=== PATIENT | female | born 1950 | race Caucasian/White ===

== ENCOUNTER 2020-01-05 22:54 | Inpatient (IN) | payer MEDICARE, OTHER, SELFPAY ==
[2020-01-05 22:55] VITALS: BP 168/82; PULSE 100; RESP 18; TEMP 36.7; O2SAT 96; BMI 43.0
[2020-01-05 23:41] LABS: Absolute Lymphocyte Count 0.57 X10^3/uL (0.83-4.51); Absolute Neutrophil Count 12.5 X10^3/uL (2.0-7.7); Basophil# 0.03 X10^3/uL; Basophil% 0.2 % (0-1); Eosinophil# 0.05 X10^3/uL; Eosinophils% 0.4 % (0-5); Hematocrit 40.7 % (37-47); Hemoglobin 13.9 g/dL (12.0-15.0); Lymphocyte # 0.57 X10^3/ul (4.0); Lymphocyte % 4.2 % (19-41); Mean Corp Hgb Conc 34.2 g/dL (32-36); Mean Corpuscular Volume 87.9 fL (81-99); Mean Platelet Vol. 9.5 fl (6.2-12.0); Monocyte# 0.45 X10^3/uL; Monocyte% 3.3 % (0-10); NRBC Flagged by Analyzer 0 % (0-5); Neutrophil # 12.48 X10^3/uL (2.7-7.7); Neutrophil % 91.6 % (47-70); POSITIVE DIFFERENTIAL YES; Platelet Count 190 K/mm3 (150-450); RBC Distribution Width CV 12.3 % (11.6-14.6); RBC Distribution Width SD 39.8 fl (35.1-43.9); Red Blood Count 4.63 M/mm3 (4.2-5.4); White Blood Count 13.6 K/mm3 (4.4-11.0)
[2020-01-05 23:59] LABS: Anion Gap 7 (5-15); BUN 21 mg/dL (7-18); BUN/Creat Ratio 17.6 RATIO (10-20); Chloride 104 mmol/L (98-107); Creatinine, Serum 1.19 mg/dL (0.55-1.02); EST Glomerular Filtration Rate 48 mL/min (>60); Est Glom Filt Rate - Afr Amer 58 mL/min (>60); Estimated Creatinine Clearance 67.09 ml/min; Glucose 132 mg/dL (74-106); Potassium 3.3 mmol/L (3.5-5.1); Sodium Level 137 mmol/L (136-145)
[2020-01-06] VITALS (9 sets, daily range): BP systolic 109–165; BP diastolic 55–78; PULSE 63–98; RESP 16–18; TEMP 36.4–38.2; O2SAT 94–98; BMI 43.6
--- NOTE | 2020-01-06 | RAD_ITS ---
STUDY: X-RAY - RIGHT HAND REASON FOR EXAM: Female, 69 years old. bit by cat a couple days ago -- puncture wound to medial aspect of rt hand area of proximal 5th metacarpal -- reddness and swelling TECHNIQUE: 3 view(s) of the hand. COMPARISON: None. FINDINGS: Normal radiocarpal articulation. Normal distal radioulnar joint. Normal visualized carpal bones. Normal carpal articulations Normal carpometacarpal articulation of the thumb. Normal second through fifth carpometacarpal joints. Normal metacarpi. Normal metacarpophalangeal joint of the thumb. Normal interphalangeal joint of the thumb. Normal proximal and distal phalanges of the thumb. Normal metacarpophalangeal joints of the second through fifth fingers. Normal proximal and distal interphalangeal joints of the second through fifth fingers. Normal phalanges of the second through fifth fingers. There is diffuse soft tissue swelling. No radiopaque foreign bodies visualized. RAD/Hand Min 3 Views IMPRESSION: No evidence for acute fracture. Diffuse soft tissue swelling. Electronically Signed: Davon Rodriguez, at 0:48 EDT Tel , Service support ,
[2020-01-06 00:05] LABS: Lactic Acid 1.2 mmol/L (0.4-1.9)
[2020-01-06 00:08] LABS: Differential Indicated SCAN CRITERIA MET
[2020-01-06 00:22] LABS: Differential Comment SCANNED
--- NOTE | 2020-01-06 00:36 | HP.PCM_ITS ---
Problem List (1) Sepsis Status: Acute Qualifiers: Sepsis type: sepsis due to unspecified organism Sepsis acute organ dysfunction status: unspecified Qualified Code(s): A41.9 - Sepsis, unspecified organism (2) Cat bite of hand Status: Acute Qualifiers: Encounter type: initial encounter Laterality: right Qualified Code(s): S61.451A - Open bite of right hand, initial encounter; W55.01XA - Bitten by cat, initial encounter (3) Cellulitis Status: Acute Qualifiers: Site of cellulitis: extremity Site of cellulitis of extremity: upper extremity Laterality: right Qualified Code(s): L03.113 - Cellulitis of right upper limb (4) HTN (hypertension) Status: Chronic Qualifiers: Hypertension type: essential hypertension Qualified Code(s): I10 - Essential (primary) hypertension (5) Hypothyroidism Status: Chronic Qualifiers: Hypothyroidism type: unspecified Qualified Code(s): E03.9 - Hypothyroidism, unspecified (6) History of obstructive sleep apnea Status: Chronic (7) Morbid obesity Status: Chronic History of Present Illness Date of Admission: 01/06/20 Chief Complaint: Recent cat bite, increased R hand edema, pain, redness. The patient is a 69 y/o F w/ PMHx: Morbid Obesity, HTN, Hypothyroidism who presents to the [facility] ED on 01/06/20 with history of cat bite 2 days prior, noted to her cat with progressively worsening right hand pain, edema, erythema with increasing streaking up her right extremities with onset fever prompting eventual ED presentation. She notes she has had similar presentations prior but not as severe. Patient denies any significant drainage from the cat bite specifically. She notes she had been trying to scrap picker her cats and put in the kennel. Patient denies any associated anorexia, nausea, emesis. work-up in the ED included T 100.8, heart rate 100, BP 168/82, respiratory rate 18, 96% on room air, CBC with WBC 13.6, hemoglobin 13.9, platelet 190 with left shift, BMP with potassium 3.3, BUN/creatinine 21/1.19, glucose 132, lactic acid 1.2, blood culture x2 pending per ED physician, plain film of the right hand with no evidence foreign bodies. In the ED patient administered Unasyn therapy. Past Medical History Past Medical History (Chronic Problems): Chronic Problems HTN (hypertension) (Chronic) Hypothyroidism (Chronic) History of obstructive sleep apnea (Chronic) Morbid obesity (Chronic) Allergies No Known Allergies Allergy (Verified 01/05/20 22:54) Home Medications: Ambulatory Orders Medication Instructions Recorded Hydrochlorothiazide [Hctz] 25 mg PO DAILY 01/06/20 Levothyroxine Sodium [Synthroid] 137 mcg PO DAILY 01/06/20 Lisinopril [Zestril] 10 mg PO DAILY 01/06/20 Surgical History: - - Uvula resection, right lower extremity surgery status post trauma in her youth, right knee arthroscopic surgery. 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 Smoking Status: Never smoker Tobacco Use: Non-smoker Alcohol: None Drugs: None - *Family History Maternal History Items: Cancer - Father with history of colorectal cancer. Paternal History Items: Dementia, Hypertension Review of Systems Constitutional: Reports: Fever, Malaise, Weakness, Fatigue. Denies: Chills, Weight Change HEENT: Denies: Head Aches, Sinus Congestion, Sinus Drainage Cardiovascular: Denies: Chest Pain, Palpitations Respiratory: Denies: Cough, Shortness of breath at rest, Sputum production Gastrointestinal: Denies: Abdominal Pain, Nausea, Vomiting Genitourinary: Denies: Dysuria Musculoskeletal: Reports: Arm Pain, Joint Pain. Denies: Joint Tenderness Skin: Reports: Skin Changes, Wounds. Denies: Rash Neurological: Denies: Numbness, Tingling, Focal weakness Psychiatric: Denies: Anxiety, Depression, Homicidal Ideations, Suicidal Ideations Hematologic/ Lymphatic: Denies: Easy Bruising, Easy Bleeding VTE Information - Inpt Only VTE Present on Admission: No VTE Mechan Device Prophylaxis: SCD's VTE Pharm Prophylaxis ordered?: Yes Patient Problems: Active and Suspected Problems Sepsis (Acute) Cat bite of hand (Acute) Cellulitis (Acute) Subjective: Patient seated upright in the ED bed, cheerful, talkative, does note ongoing discomfort right upper extremity but not severe. Objective: Physical Examination: General: awake, alert, oriented x 3 and cooperative, seated upright in the ED bed in no apparent distress. Skin: normal color, turgor, no icterus, cyanosis except noted right hand recent cat bite, no drainage, significant edema to the hand progressing all the way up towards the proximal forearm, significant erythema with streaking up the arm. HEENT: AT/NC, EOMI, PERRLA, mildly dry MM, no carotid bruits or JVD noted. Lungs: CTA bilaterally, moderate effort, moderate decrease BL bases, no rales, ronchi or wheezing. Heart: Mildly tachycardic with regular rhythm; no gallop, rub audible. Abdomen: soft, morbidly obese, NTTP, ND, normal BS, no HSM. Extremities: no cyanosis, clubbing, see skin. Neurological: patient awake, alert, oriented x 3; cognitive function intact; pupils equally reactive to light and accomodation; cranial nerves II-XII grossly normal, moving all 4 extremities although some limitation with right upper extremity given acute presentation, no focal deficits, strength moderately global decrease secondary to acute presentation. Psychiatric: affect appears normal, no acute evidence of depressive or anxiety feelings. - Physical Exam Vitals/I&O's: Vital Signs Temp Pulse Resp BP Pulse Ox 100.8 F H 97 18 165/78 H 97 01/06/20 00:15 01/06/20 00:15 01/06/20 00:15 01/06/20 00:15 01/06/20 00:15 Oxygen Delivery Method Room Air Weight: 213 lb Body Mass Index (BMI) 43.0 Laboratory Results 01/05/20 23:35: WBC 13.6 H, RBC 4.63, Hgb 13.9, Hct 40.7, MCV 87.9, MCH 30.0, MCHC 34.2, RDW Std Deviation 39.8, RDW Coeff of Gisela 12.3, Plt Count 190, MPV 9.5, Immature Gran % (Auto) 0.300, Neut % (Auto) 91.6 H, Lymph % (Auto) 4.2 L, [place] % (Auto) 3.3, Eos % (Auto) 0.4, Baso % (Auto) 0.2, Absolute Neuts (auto) 12.5 H, Absolute Lymphs (auto) 0.57 L, Nucleated RBC % 0, Differential Comment SCANNED 01/05/20 23:35: Sodium 137, Potassium 3.3 L, Chloride 104, Carbon Dioxide 26.0, Anion Gap 7, BUN 21 H, Creatinine 1.19 H, Estim Creat Clear Calc 67.09, Est GFR (MDRD) Af Amer 58 L, Est GFR (MDRD) Non-Af 48 L, BUN/Creatinine Ratio 17.6, Glucose 132 H, Calcium 9.0 01/05/20 23:35: Lactic Acid 1.2 Current Medications Ampicillin Sodium/Sulbactam (Sodium 3 gm/ Sodium Chloride) 112 mls @ 150 mls/hr IV X1 ONE Stop: 01/06/20 00:55 Assessment/Plan All Active Problems Sepsis (Acute) Cat bite of hand (Acute) Cellulitis (Acute) The patient is a 69 y/o F w/ PMHx: Morbid Obesity, HTN, Hypothyroidism who presents to the [facility] ED on 01/06/20 with history of cat bite 2 days prior, noted to her cat with progressively worsening right hand pain, edema, erythema with increasing streaking up her right extremities with onset fever prompting eventual ED presentation. 1. Acute Sepsis secondary to Acute Right Hand/Extremity Infected Cat Bite with Cellulitis: Will admit to [facility], maintain on IV unasyn, plan repeat CBC in AM, continue affected extremity elevation above heart when seated and in bed, monitor erythema outline with VS checks, continue IV fluids. 2. Hypertension: Continue home regimen including lisinopril, hydrochlorothiazide, PRN hydralazine. 3. Hypothyroidism: Continue home synthroid regimen. 4. Morbid Obesity: Weight loss and lifestyle changes encouraged. 5. Prior history of SANDRA: Status post uvula resection, resolved. 6. DVT prophylaxis: SCDs, Lovenox. Inpatient E&M: [id number] Init Hosp L3
--- NOTE | 2020-01-06 00:44 | ED.VISSUMM ---
- ER Visit Summary Date of Service: 01/06/20 Chief Complaint: Cat bite, right hand History of Present Illness: The patient is a 69 F who sustained a cat bite to the right hand. It happened 2 days ago. She was try to get her kitten to the vet. She knows this cat. No signs of rabies. She now has red streaks going up the right arm. She has felt chills and shaky at home but no documented fevers. Physical Examination: Vital signs are reviewed. Right arm exam reveals diffuse erythema with streaking going up the right arm. To the right axilla. She does have some bites on the right side of the hand on the ulnar side. No evidence of any finger bites. Her strength and sensation is normal. Test Results: White blood cell count 13.6, creatinine 1.19. Lactate 1.2. Right hand x-ray reveals no evidence of foreign bodies. Emergency Department Course and Treatment: The patient will be given a dose of IV Unasyn. She does meet sepsis criteria. Due to the amount of erythema I feel she needs to be admitted to the hospital. Treatment Plan: [] Disposition: Admit Impression: Cat bite, right hand Right arm cellulitis Sepsis This note was generated with [employer] dictation software. It may contain incorrect words, spelling, and punctuation that were not noted in review of the chart prior to signing ED Disposition - Plan for ED Patient: Referrals: Mateo Avalos MD [Primary Care Provider] -
[2020-01-06] MEDS: Ondansetron 4 MG/2 ML Vial IV (01:04)
[2020-01-06 01:45] LABS: Magnesium 1.7 mg/dL (1.6-2.6)
[2020-01-06] MEDS: Morphine 2 MG/ML Syringe IV ×2 (02:07→06:06)
[2020-01-06] MEDS: 0.9% Normal Saline 1,000 ML 125 ML IV ×2 (02:07→11:27)
[2020-01-06 05:43] LABS: Absolute Lymphocyte Count 0.59 X10^3/uL (0.83-4.51); Absolute Neutrophil Count 16.2 X10^3/uL (2.0-7.7); Basophil# 0.03 X10^3/uL; Basophil% 0.2 % (0-1); Eosinophils% 0.5 % (0-5); Hematocrit 39.2 % (37-47); Hemoglobin 13.4 g/dL (12.0-15.0); Lymphocyte # 0.59 X10^3/ul (4.0); Lymphocyte % 3.2 % (19-41); Mean Corp Hgb Conc 34.2 g/dL (32-36); Mean Corpuscular Hgb 30.7 pg (27.0-32.0); Mean Corpuscular Volume 89.7 fL (81-99); Monocyte# 1.18 X10^3/uL; Monocyte% 6.4 % (0-10); NRBC Flagged by Analyzer 0 % (0-5); Neutrophil # 16.24 X10^3/uL (2.7-7.7); Neutrophil % 88.7 % (47-70); POSITIVE DIFFERENTIAL YES; POSITIVE MORPHOLOGY YES; Platelet Count 193 K/mm3 (150-450); RBC Distribution Width CV 12.2 % (11.6-14.6); Red Blood Count 4.37 M/mm3 (4.2-5.4); White Blood Count 18.3 K/mm3 (4.4-11.0)
[2020-01-06 05:47] LABS: Differential Indicated SCAN CRITERIA MET
[2020-01-06 06:06] LABS: Anion Gap 9 (5-15); BUN 19 mg/dL (7-18); BUN/Creat Ratio 17.9 RATIO (10-20); Calcium,Total 8.3 mg/dL (8.5-10.1); Chloride 103 mmol/L (98-107); Creatinine, Serum 1.06 mg/dL (0.55-1.02); EST Glomerular Filtration Rate 54 mL/min (>60); Est Glom Filt Rate - Afr Amer 66 mL/min (>60); Estimated Creatinine Clearance 76.32 ml/min; Glucose 137 mg/dL (74-106); Potassium 3.2 mmol/L (3.5-5.1); Sodium Level 137 mmol/L (136-145)
[2020-01-06] MEDS: Levothyroxine 137 MCG Tablet PO (06:07)
[2020-01-06 06:09] LABS: Differential Comment SCANNED
[2020-01-06] MEDS: Famotidine 20 MG Tablet PO ×2 (08:30→22:13)
[2020-01-06] MEDS: Enoxaparin 40 MG/0.4 ML Syringe SC (08:30)
[2020-01-06] MEDS: Lisinopril 10 MG Tablet PO (08:30)
[2020-01-06] MEDS: hydroCHLOROthiazide 25 MG Tablet PO (08:30)
--- NOTE | 2020-01-06 10:40 | CASEMGMT ---
RN KIRILL RESEARCH AND DEVELOPMENT DIRECTOR CM to room to meet with patient for initial transition planning/care coordination assessment. RN KIRILL introduced self and role at [facility]. Pt voices understanding and consents to assessment at this time. Pt resting in bed in no distress at this time. Pt is A/O at this time and answers all questions appropriately. Care providers, pharmacy, and demographics verified/updated at this time. PCP: Dr Avalos Specialists: none Preferred Pharmacy: [facility] Insurance: [facility] Prescription Benefit: [employer] Living Will/HPOA: States does not have LW or HCPOA . Interested in more information but states does not want to talk with SW at this time to complete paperwork. Provided information on advanced directives and given Social Service rac card with number to call if chooses in the future to utilize [facility] social work for advanced directive completion. LNOK: Mother, Kalpana, is still living, but pt states she is starting to have short-term memory issues. Pt has 3 brothers. Living Arrangements: Lives with her mother in one-story home w/3 steps to enter. Independent w/ADL's and IADL's. Pt states mother has short-term memory issues and pt helps to take care of her. States her mother is still able to help around the house and does the laundry. Family is supportive and brother and [id number] live very close and are checking in on her mother while pt is @ hospital. Transportation: Pt states drives self and states no transportation concerns at this time. Charmaine, pt's [id number], will take her home @ discharge. DME: States has the following DME: cane Pt states no need for further DME at this time. HHC/SNF: No history of either, denies needs, and no needs identified. Also discussed option of OP therapy, but pt declines, stating she does not feel that she needs it at this time. Pt made aware, if she decides in the future she would be interested, to discuss this with her PCP. Pt voiced understanding. Pt asked this RN KIRILL if she could put Horse Liniment on the swelling of her hand/arm when she returns home. RN KIRILL strongly advised pt she should not apply this and to follow physician's discharge instructions. Pt voices understanding. Pt's RN, Ana Paula, made aware and states will continue to provide education and reinforce that she should not apply the Horse liniment. Pt wishes to return home and states has no concerns with going home at time of discharge. CM to follow for any discharge planning/needs. Pt voices no concerns/needs at this time. Advised pt to ask for CM if any further questions/concerns/needs arise. Voices understanding. PLAN: Home Janey LYLES RN CM
--- NOTE | 2020-01-06 10:57 | NURSING ---
Verbal report called to ABIDA Randle on [facility] who will be assuming care of patient
[2020-01-06 11:02] LABS: M R Staph aureus DNA By PCR Negative (Negative); Probe Check PASS; Specimen Processing Control PASS; Staph aureus DNA By PCR NEGATIVE (Negative)
--- NOTE | 2020-01-06 12:20 | NURSING ---
skin photo: right arm
--- NOTE | 2020-01-06 12:21 | NURSING ---
skin photo: right hand/wrist
--- NOTE | 2020-01-06 13:12 | PN_ITS ---
<Peggy Billingsley - Last Filed: 01/06/20 13:18> Patient Problems: Active and Suspected Problems Sepsis (Acute) Cat bite of hand (Acute) Cellulitis (Acute) Subjective: Patient seen and examined. Reports mild discomfort right upper extremity. Right upper extremity continues to have significant swelling. Redness has not increased. Patient denies fever, chills. Denies nausea, vomiting. - Physical Exam Vitals/I&O's: Vital Signs Temp Pulse Resp BP Pulse Ox 99.0 F 75 18 140/55 H 98 01/06/20 11:25 01/06/20 11:25 01/06/20 11:25 01/06/20 11:25 01/06/20 11:25 Oxygen Delivery Method Room Air Weight: 215 lb 13.321 oz Body Mass Index (BMI) 43.6 Intake and Output for Last 24 Hours 01/04/20 01/05/20 01/06/20 23:59 23:59 23:59 Intake Total 1346.42 / 1346.42 Balance 1346.42 / 1346.42 General: Alert, Oriented x3, Cooperative HEENT: Atraumatic, PERRLA, EOMI, Normocephalic Neck: Supple, No JVD, Negative Carotid Bruits Lungs: Clear to auscultation, Normal air movement Cardiovascular: Regular rate, Regular Rhythm, Normal S1, Normal S2, No murmurs Abdomen: Bowel Sounds Present, Soft, Non Tender, Non-Distended Extremities: No clubbing, No cyanosis, Capillary Refill Less than 3 Seconds, Edema - RUE Skin: - - Right hand and wrist puncture wounds from cat bites, significant erythema with streaking up right arm into axillary region. Musculoskeletal: No Tenderness to Palpation of Joints or Extremities Neurological: Cranial nerves II-XII grossly intact, Neuro grossly intact Psych/Mental Status: Normal Affect, Appropriate Laboratory Results 01/05/20 23:35: WBC 13.6 H, RBC 4.63, Hgb 13.9, Hct 40.7, MCV 87.9, MCH 30.0, MCHC 34.2, RDW Std Deviation 39.8, RDW Coeff of Gisela 12.3, Plt Count 190, MPV 9.5, Immature Gran % (Auto) 0.300, Neut % (Auto) 91.6 H, Lymph % (Auto) 4.2 L, Roosevelt % (Auto) 3.3, Eos % (Auto) 0.4, Baso % (Auto) 0.2, Absolute Neuts (auto) 12.5 H, Absolute Lymphs (auto) 0.57 L, Nucleated RBC % 0, Differential Comment SCANNED 01/05/20 23:35: Sodium 137, Potassium 3.3 L, Chloride 104, Carbon Dioxide 26.0, Anion Gap 7, BUN 21 H, Creatinine 1.19 H, Estim Creat Clear Calc 67.09, Est GFR (MDRD) Af Amer 58 L, Est GFR (MDRD) Non-Af 48 L, BUN/Creatinine Ratio 17.6, Glucose 132 H, Calcium 9.0 01/05/20 23:35: Lactic Acid 1.2 01/05/20 23:35: Magnesium 1.7 01/06/20 01:40: S.aureus Protein A PCR NEGATIVE, MRSA (PCR) Negative 01/06/20 05:14: WBC 18.3 H, RBC 4.37, Hgb 13.4, Hct 39.2, MCV 89.7, MCH 30.7, MCHC 34.2, RDW Std Deviation 40.0, RDW Coeff of Gisela 12.2, Plt Count 193, MPV 10.0, Immature Gran % (Auto) 1.000 H, Neut % (Auto) 88.7 H, Lymph % (Auto) 3.2 L , Roosevelt % (Auto) 6.4, Eos % (Auto) 0.5, Baso % (Auto) 0.2, Absolute Neuts (auto) 16.2 H, Absolute Lymphs (auto) 0.59 L, Nucleated RBC % 0, Differential Comment SCANNED 01/06/20 05:14: Sodium 137, Potassium 3.2 L, Chloride 103, Carbon Dioxide 25.0, Anion Gap 9, BUN 19 H, Creatinine 1.06 H, Estim Creat Clear Calc 76.32, Est GFR (MDRD) Af Amer 66, Est GFR (MDRD) Non-Af 54 L, BUN/Creatinine Ratio 17.9, Glucose 137 H, Calcium 8.3 L 01/06/20 05:14: Hemoglobin A1c 6.0 Current Medications Acetaminophen (Tylenol) 650 mg PO Q6H PRN PRN PRN Reason: Pain Score 1-10/Temp > 100.7 F Al Hydroxide/Mg Hydroxide (Mylanta Ii) 30 ml PO Q6H PRN PRN PRN Reason: Gastric Burning Albuterol Sulfate (Ventolin Aerosols) 2.5 mg INHALATION Q2H PRN PRN PRN Reason: Shortness of Breath/Wheezing Enoxaparin Sodium (Lovenox) 40 mg SC DAILY [facility] Last Admin: 01/06/20 08:30 Dose: 40 mg Documented by: Famotidine (Pepcid) 20 mg PO BID [facility] Last Admin: 01/06/20 08:30 Dose: 20 mg Documented by: Glucagon () 1 mg IM .X1 PRN PRN Reason: Hypoglycemia Guaifenesin (Robitussin) 20 ml PO Q4H PRN PRN PRN Reason: COUGH Hydralazine HCl (Apresoline Iv) 10 mg IV Q4H PRN PRN PRN Reason: SBP > 160 Hydrochlorothiazide (Hctz) 25 mg PO DAILY [facility] Last Admin: 01/06/20 08:30 Dose: 25 mg Documented by: Sodium Chloride () 1,000 mls @ 125 mls/hr IV .Q8H [facility] Stop: 01/06/20 17:25 Last Infusion: 01/06/20 12:15 Dose: 125 mls/hr Documented by: Ampicillin Sodium/Sulbactam (Sodium 3 gm/ Sodium Chloride) 112 mls @ 150 mls/hr IV Q6 [facility] Last Infusion: 01/06/20 12:15 Dose: Infused Documented by: Dextrose (Dextrose 10%-Water) 250 mls @ 999 mls/hr IV .Q16M PRN; Protocol PRN Reason: HYPOGLYCEMIA Ibuprofen (Motrin) 400 mg PO Q4H PRN PRN PRN Reason: Pain Score 1-10/Temp > 100.7 F Levothyroxine Sodium (Synthroid) 137 mcg PO DAILY@0600 [facility] Last Admin: 01/06/20 06:07 Dose: 137 mcg Documented by: Lisinopril (Zestril) 10 mg PO DAILY [facility] Last Admin: 01/06/20 08:30 Dose: 10 mg Documented by: Magnesium Hydroxide (Milk Of Magnesia) 30 ml PO DAILY PRN PRN PRN Reason: Constipation Melatonin (Melatonin) 3 mg PO QHS PRN PRN PRN Reason: INSOMNIA Morphine Sulfate () 2 mg IV Q3H PRN PRN PRN Reason: Pain Score 6-10/10 Last Admin: 01/06/20 06:06 Dose: 2 mg Documented by: Nitroglycerin (Nitrostat) 0.4 mg SUBLINGUAL Q5M PRN PRN Reason: CARDIAC/CHEST PAIN Nutritional Formula (Lactose Free) (Ensure Enlive) 120 ml PO 4X/DAY GUILLAUME Last Admin: 01/06/20 08:30 Dose: 120 ml Documented by: Ondansetron HCl (Zofran) 4 mg IV Q8H PRN PRN PRN Reason: NAUSEA/VOMITING Oxycodone HCl (Oxyir) 5 mg PO Q4H PRN PRN PRN Reason: Pain Score 4-5/10 Prochlorperazine Edisylate (Compazine Iv) 5 mg IV Q4H PRN PRN PRN Reason: Breakthrough nausea/vomiting Psyllium Hydrophilic Mucilloid (Metamucil) 1 packet PO DAILY PRN PRN PRN Reason: Constipation Senna/Docusate Sodium (Senokot-S, Carol-Colace) 2 tablet PO BID PRN PRN PRN Reason: Constipation Sodium Chloride () 10 - 40 ml IV UD PRN PRN Reason: SALINE FLUSH Throat Lozenges (Cepacol Sore Throat Lozenge) 1 lozenge MUCOUS MEM Q2H PRN PRN PRN Reason: SORE THROAT Medical Necessity - Tobacco Use Smoking Status: Never smoker Tobacco Use: Non-smoker Assessment/Plan All Active Problems Sepsis (Acute) Cat bite of hand (Acute) Cellulitis (Acute) 1. Acute sepsis secondary to right upper extremity cellulitis as a result of cat bite-on IV Unasyn. Elevate right upper extremity. Blood and wound cultures pending. PRN pain regimen. 2. Hypertension-continue lisinopril, HCTZ. 3. Hypothyroidism-continue Synthroid regimen. 4. Morbid obesity-encouraged diet lifestyle modifications. 5. History of SANDRA-status post uvula resection. 6. Mild renal insufficiency-unclear if acute on chronic, no prior labs for comparison. Improving with IV fluids. Trend BMP. 7. Mild hypokalemia-replace per protocol. DVT prophylaxis-Lovenox This patient was seen by VLAD Hung under the supervision of Dr. Leung. <Mellisa Leung - Last Filed: 01/06/20 17:34> - Physical Exam Vitals/I&O's: Vital Signs Temp Pulse Resp BP Pulse Ox 99.0 F 98 18 109/63 97 01/06/20 13:57 01/06/20 13:57 01/06/20 13:57 01/06/20 13:57 01/06/20 13:57 Oxygen Delivery Method Room Air Weight: 215 lb 13.321 oz Body Mass Index (BMI) 43.6 Intake and Output for Last 24 Hours 01/04/20 01/05/20 01/06/20 23:59 23:59 23:59 Intake Total 1346.42 / 1346.42 Balance 1346.42 / 1346.42 Microbiology Past 72 Hours 01/06/20 01:40 Bite, Cat Gram Stain - Final Laboratory Results 01/05/20 23:35: WBC 13.6 H, RBC 4.63, Hgb 13.9, Hct 40.7, MCV 87.9, MCH 30.0, MCHC 34.2, RDW Std Deviation 39.8, RDW Coeff of Gisela 12.3, Plt Count 190, MPV 9.5, Immature Gran % (Auto) 0.300, Neut % (Auto) 91.6 H, Lymph % (Auto) 4.2 L, Roosevelt % (Auto) 3.3, Eos % (Auto) 0.4, Baso % (Auto) 0.2, Absolute Neuts (auto) 12.5 H, Absolute Lymphs (auto) 0.57 L, Nucleated RBC % 0, Differential Comment SCANNED 01/05/20 23:35: Sodium 137, Potassium 3.3 L, Chloride 104, Carbon Dioxide 26.0, Anion Gap 7, BUN 21 H, Creatinine 1.19 H, Estim Creat Clear Calc 67.09, Est GFR (MDRD) Af Amer 58 L, Est GFR (MDRD) Non-Af 48 L, BUN/Creatinine Ratio 17.6, Glucose 132 H, Calcium 9.0 01/05/20 23:35: Lactic Acid 1.2 01/05/20 23:35: Magnesium 1.7 01/06/20 01:40: S.aureus Protein A PCR NEGATIVE, MRSA (PCR) Negative 01/06/20 05:14: WBC 18.3 H, RBC 4.37, Hgb 13.4, Hct 39.2, MCV 89.7, MCH 30.7, MCHC 34.2, RDW Std Deviation 40.0, RDW Coeff of Gisela 12.2, Plt Count 193, MPV 10.0, Immature Gran % (Auto) 1.000 H, Neut % (Auto) 88.7 H, Lymph % (Auto) 3.2 L , Roosevelt % (Auto) 6.4, Eos % (Auto) 0.5, Baso % (Auto) 0.2, Absolute Neuts (auto) 16.2 H, Absolute Lymphs (auto) 0.59 L, Nucleated RBC % 0, Differential Comment SCANNED 01/06/20 05:14: Sodium 137, Potassium 3.2 L, Chloride 103, Carbon Dioxide 25.0, Anion Gap 9, BUN 19 H, Creatinine 1.06 H, Estim Creat Clear Calc 76.32, Est GFR (MDRD) Af Amer 66, Est GFR (MDRD) Non-Af 54 L, BUN/Creatinine Ratio 17.9, Glucose 137 H, Calcium 8.3 L 01/06/20 05:14: Hemoglobin A1c 6.0 Current Medications Acetaminophen (Tylenol) 650 mg PO Q6H PRN PRN PRN Reason: Pain Score 1-10/Temp > 100.7 F Al Hydroxide/Mg Hydroxide (Mylanta Ii) 30 ml PO Q6H PRN PRN PRN Reason: Gastric Burning Albuterol Sulfate (Ventolin Aerosols) 2.5 mg INHALATION Q2H PRN PRN PRN Reason: Shortness of Breath/Wheezing Enoxaparin Sodium (Lovenox) 40 mg SC DAILY [facility] Last Admin: 01/06/20 08:30 Dose: 40 mg Documented by: Famotidine (Pepcid) 20 mg PO BID [facility] Last Admin: 01/06/20 08:30 Dose: 20 mg Documented by: Glucagon () 1 mg IM .X1 PRN PRN Reason: Hypoglycemia Guaifenesin (Robitussin) 20 ml PO Q4H PRN PRN PRN Reason: COUGH Hydralazine HCl (Apresoline Iv) 10 mg IV Q4H PRN PRN PRN Reason: SBP > 160 Hydrochlorothiazide (Hctz) 25 mg PO DAILY [facility] Last Admin: 01/06/20 08:30 Dose: 25 mg Documented by: Sodium Chloride () 1,000 mls @ 125 mls/hr IV .Q8H [facility] Stop: 01/06/20 17:25 Last Infusion: 01/06/20 12:15 Dose: 125 mls/hr Documented by: Ampicillin Sodium/Sulbactam (Sodium 3 gm/ Sodium Chloride) 112 mls @ 150 mls/hr IV Q6 [facility] Last Infusion: 01/06/20 12:15 Dose: Infused Documented by: Dextrose (Dextrose 10%-Water) 250 mls @ 999 mls/hr IV .Q16M PRN; Protocol PRN Reason: HYPOGLYCEMIA Ibuprofen (Motrin) 400 mg PO Q4H PRN PRN PRN Reason: Pain Score 1-10/Temp > 100.7 F Levothyroxine Sodium (Synthroid) 137 mcg PO DAILY@0600 [facility] Last Admin: 01/06/20 06:07 Dose: 137 mcg Documented by: Lisinopril (Zestril) 10 mg PO DAILY [facility] Last Admin: 01/06/20 08:30 Dose: 10 mg Documented by: Magnesium Hydroxide (Milk Of Magnesia) 30 ml PO DAILY PRN PRN PRN Reason: Constipation Melatonin (Melatonin) 3 mg PO QHS PRN PRN PRN Reason: INSOMNIA Morphine Sulfate () 2 mg IV Q3H PRN PRN PRN Reason: Pain Score 6-10/10 Last Admin: 01/06/20 06:06 Dose: 2 mg Documented by: Nitroglycerin (Nitrostat) 0.4 mg SUBLINGUAL Q5M PRN PRN Reason: CARDIAC/CHEST PAIN Ondansetron HCl (Zofran) 4 mg IV Q8H PRN PRN PRN Reason: NAUSEA/VOMITING Oxycodone HCl (Oxyir) 5 mg PO Q4H PRN PRN PRN Reason: Pain Score 4-5/10 Prochlorperazine Edisylate (Compazine Iv) 5 mg IV Q4H PRN PRN PRN Reason: Breakthrough nausea/vomiting Psyllium Hydrophilic Mucilloid (Metamucil) 1 packet PO DAILY PRN PRN PRN Reason: Constipation Senna/Docusate Sodium (Senokot-S, Carol-Colace) 2 tablet PO BID PRN PRN PRN Reason: Constipation Sodium Chloride () 10 - 40 ml IV UD PRN PRN Reason: SALINE FLUSH Throat Lozenges (Cepacol Sore Throat Lozenge) 1 lozenge MUCOUS MEM Q2H PRN PRN PRN Reason: SORE THROAT Assessment/Plan Patient seen by Peggy CHU under my supervision Patient was admitted with a complaint of right upper extremity pain and swelling after she was bitten by her cat. She has been managed for cellulitis of the right upper extremity. Seen and examined. She states swelling has improved and pain is also better. She denies any fever or chills, nausea vomiting or palpitations. Review of systems otherwise negative. o/e: Vital Signs Height 4 ft 11 in Weight: 215 lb 13.321 oz Weight in Pounds 215.8 lbs Pulse Ox 97 Temperature 99.0 F Pulse Rate 98 Respiratory Rate 18 Blood Pressure 109/63 Blood Pressure Position Semi-Fowlers General: Alert, Oriented x3, Cooperative HEENT: Atraumatic, PERRLA, EOMI, Normocephalic Neck: Supple, No JVD, Negative Carotid Bruits Lungs: Clear to auscultation, Normal air movement Cardiovascular: Regular rate, Regular Rhythm, Normal S1, Normal S2, No murmurs Abdomen: Bowel Sounds Present, Soft, Non Tender, Non-Distended Extremities: No clubbing, No cyanosis, Capillary Refill Less than 3 Seconds, Edema - RUE Skin: - - Right hand and wrist puncture wounds from cat bites, erythema streaking up from dorsum and lateral aspect of right hand to right axilla. Minimal swelling of right hand. No discharge noted Musculoskeletal: No Tenderness to Palpation of Joints or Extremities Neurological: Cranial nerves II-XII grossly intact, Neuro grossly intact Psych/Mental Status: Normal Affect, Appropriate Blood and wound cultures are pending. Continue IV Unasyn. Keep arm elevated. To have a low threshold for consulting plastic surgery if swelling in the hand recurs and worsens. White cell count noted 12 trended up to 18.3 from 13.6 on admission. Temperature has settled though and was 99 Fahrenheit at time of review. If WBC Trending Upwards, to Broaden IV Antibiotics. Continue Tylenol and Oxycodone for Pain. Patient also has hypokalemia with potassium of 3.2 and this will be replaced. Rest as per VLAD Hung's notes which I have reviewed and endorsed. Inpatient E&M: 36868 Subs Hosp L3
--- NOTE | 2020-01-06 16:11 | CHAPLAIN ---
left a calling card as patient is sleeping
[2020-01-06 19:08] LABS: M R Staph aureus DNA By PCR Negative (Negative); Probe Check PASS; Staph aureus DNA By PCR NEGATIVE (Negative)
[2020-01-06] MEDS: Ibuprofen 400 MG Tablet PO (22:23)
[2020-01-06] MEDS: 0.9% Saline Lock 10 ML Syringe IV (23:28)
[2020-01-07 03:49] VITALS: BP 107/58; PULSE 63; RESP 14; TEMP 36.7; O2SAT 94
[2020-01-07] MEDS: Levothyroxine 137 MCG Tablet PO (06:24)
[2020-01-07 09:53] LABS: Hematocrit 35.8 % (37-47); Hemoglobin 11.9 g/dL (12.0-15.0); Mean Corp Hgb Conc 33.2 g/dL (32-36); Mean Corpuscular Hgb 30.3 pg (27.0-32.0); Mean Corpuscular Volume 91.1 fL (81-99); Mean Platelet Vol. 9.6 fl (6.2-12.0); Platelet Count 148 K/mm3 (150-450); RBC Distribution Width CV 12.7 % (11.6-14.6); RBC Distribution Width SD 42.5 fl (35.1-43.9); Red Blood Count 3.93 M/mm3 (4.2-5.4); White Blood Count 15.1 K/mm3 (4.4-11.0)
[2020-01-07] MEDS: Lisinopril 10 MG Tablet PO (10:14)
[2020-01-07] MEDS: Enoxaparin 40 MG/0.4 ML Syringe SC (10:14)
[2020-01-07] MEDS: hydroCHLOROthiazide 25 MG Tablet PO (10:14)
[2020-01-07] MEDS: Famotidine 20 MG Tablet PO ×2 (10:14→20:44)
[2020-01-07 10:16] VITALS: BP 96/46; PULSE 82; RESP 18; TEMP 37.1; O2SAT 96
[2020-01-07 10:21] LABS: Anion Gap 4 (5-15); BUN 14 mg/dL (7-18); BUN/Creat Ratio 16.9 RATIO (10-20); Calcium,Total 8.5 mg/dL (8.5-10.1); Chloride 108 mmol/L (98-107); Creatinine, Serum 0.83 mg/dL (0.55-1.02); EST Glomerular Filtration Rate 72 mL/min (>60); Est Glom Filt Rate - Afr Amer 88 mL/min (>60); Estimated Creatinine Clearance 97.47 ml/min; Glucose 135 mg/dL (74-106); Potassium 3.8 mmol/L (3.5-5.1); Sodium Level 136 mmol/L (136-145)
--- NOTE | 2020-01-07 12:01 | NURSING ---
In to reassess the right hand and arm. the redness is very slightly improved. there is still a moderate amount of edema noted especially to the forearm and wrist area. there is some blistering now noted to the lateral wrist. Pt may possibly need and I&D if the redness and edema do not improve.
--- NOTE | 2020-01-07 13:48 | PN_ITS ---
<Peggy Billingsley - Last Filed: 01/07/20 14:01> Patient Problems: Active and Suspected Problems Sepsis (Acute) Cat bite of hand (Acute) Cellulitis (Acute) Subjective: Patient seen and examined. Worsening right upper extremity swelling. Patient reports 2 focal areas of increased pain on right forearm and right bicep area. Few areas of blistering. Patient denies fever, chills. - Physical Exam Vitals/I&O's: Vital Signs Temp Pulse Resp BP Pulse Ox 98.8 F 82 18 96/46 L 96 01/07/20 10:16 01/07/20 10:16 01/07/20 10:16 01/07/20 10:16 01/07/20 10:16 Oxygen Delivery Method Room Air Weight: 215 lb 13.321 oz Body Mass Index (BMI) 43.6 Intake and Output for Last 24 Hours 01/05/20 01/06/20 01/07/20 23:59 23:59 23:59 Intake Total 2848.00 / 3048.00 934 / 934 Output Total 150 / 450 1850 / 1850 Balance 2698.00 / 2598.00 -916 / -916 General: Alert, Oriented x3, Cooperative HEENT: Atraumatic, PERRLA, EOMI, Normocephalic Neck: Supple, No JVD, Negative Carotid Bruits Lungs: Clear to auscultation, Normal air movement Cardiovascular: Regular rate, Regular Rhythm, Normal S1, Normal S2, No murmurs Abdomen: Bowel Sounds Present, Soft, Non Tender, Non-Distended Extremities: Capillary Refill Less than 3 Seconds, Edema - Right upper extremity Skin: - - Right hand and wrist puncture wounds from cat bites, significant erythema with streaking up right arm into axillary region. Right wrist area with blistering. Worsening erythema and edema today. Musculoskeletal: No Tenderness to Palpation of Joints or Extremities Neurological: Cranial nerves II-XII grossly intact, Neuro grossly intact Psych/Mental Status: Normal Affect, Appropriate Microbiology Past 72 Hours 01/06/20 01:40 Bite, Cat Gram Stain - Final 01/06/20 01:40 Bite, Cat Wound Culture - Preliminary No growth-Final to follow Laboratory Results 01/06/20 17:27: S.aureus Protein A PCR NEGATIVE, MRSA (PCR) Negative 01/07/20 09:47: WBC 15.1 H, RBC 3.93 L, Hgb 11.9 L, Hct 35.8 L, MCV 91.1, MCH 30.3, MCHC 33.2, RDW Std Deviation 42.5, RDW Coeff of Gisela 12.7, Plt Count 148 L, MPV 9.6 01/07/20 09:47: Sodium 136, Potassium 3.8, Chloride 108 H, Carbon Dioxide 24.0, Anion Gap 4 L, BUN 14, Creatinine 0.83, Estim Creat Clear Calc 97.47, Est GFR (MDRD) Af Amer 88, Est GFR (MDRD) Non-Af 72, BUN/Creatinine Ratio 16.9, Glucose 135 H, Calcium 8.5 Current Medications Acetaminophen (Tylenol) 650 mg PO Q6H PRN PRN PRN Reason: Pain Score 1-10/Temp > 100.7 F Al Hydroxide/Mg Hydroxide (Mylanta Ii) 30 ml PO Q6H PRN PRN PRN Reason: Gastric Burning Albuterol Sulfate (Ventolin Aerosols) 2.5 mg INHALATION Q2H PRN PRN PRN Reason: Shortness of Breath/Wheezing Enoxaparin Sodium (Lovenox) 40 mg SC DAILY [facility] Last Admin: 01/07/20 10:14 Dose: 40 mg Documented by: Famotidine (Pepcid) 20 mg PO BID [facility] Last Admin: 01/07/20 10:14 Dose: 20 mg Documented by: Glucagon () 1 mg IM .X1 PRN PRN Reason: Hypoglycemia Guaifenesin (Robitussin) 20 ml PO Q4H PRN PRN PRN Reason: COUGH Hydralazine HCl (Apresoline Iv) 10 mg IV Q4H PRN PRN PRN Reason: SBP > 160 Hydrochlorothiazide (Hctz) 25 mg PO DAILY [facility] Last Admin: 01/07/20 10:14 Dose: 25 mg Documented by: Ampicillin Sodium/Sulbactam (Sodium 3 gm/ Sodium Chloride) 112 mls @ 150 mls/hr IV Q6 [facility] Last Admin: 01/07/20 11:55 Dose: 150 mls/hr Documented by: Dextrose (Dextrose 10%-Water) 250 mls @ 999 mls/hr IV .Q16M PRN; Protocol PRN Reason: HYPOGLYCEMIA Ibuprofen (Motrin) 400 mg PO Q4H PRN PRN PRN Reason: Pain Score 1-10/Temp > 100.7 F Last Admin: 01/06/20 22:23 Dose: 400 mg Documented by: Levothyroxine Sodium (Synthroid) 137 mcg PO DAILY@0600 [facility] Last Admin: 01/07/20 06:24 Dose: 137 mcg Documented by: Lisinopril (Zestril) 10 mg PO DAILY [facility] Last Admin: 01/07/20 10:14 Dose: 10 mg Documented by: Magnesium Hydroxide (Milk Of Magnesia) 30 ml PO DAILY PRN PRN PRN Reason: Constipation Melatonin (Melatonin) 3 mg PO QHS PRN PRN PRN Reason: INSOMNIA Morphine Sulfate () 2 mg IV Q3H PRN PRN PRN Reason: Pain Score 6-10/10 Last Admin: 01/06/20 06:06 Dose: 2 mg Documented by: Nitroglycerin (Nitrostat) 0.4 mg SUBLINGUAL Q5M PRN PRN Reason: CARDIAC/CHEST PAIN Ondansetron HCl (Zofran) 4 mg IV Q8H PRN PRN PRN Reason: NAUSEA/VOMITING Oxycodone HCl (Oxyir) 5 mg PO Q4H PRN PRN PRN Reason: Pain Score 4-5/10 Prochlorperazine Edisylate (Compazine Iv) 5 mg IV Q4H PRN PRN PRN Reason: Breakthrough nausea/vomiting Psyllium Hydrophilic Mucilloid (Metamucil) 1 packet PO DAILY PRN PRN PRN Reason: Constipation Senna/Docusate Sodium (Senokot-S, Carol-Colace) 2 tablet PO BID PRN PRN PRN Reason: Constipation Sodium Chloride () 10 - 40 ml IV UD PRN PRN Reason: SALINE FLUSH Last Admin: 01/06/20 23:28 Dose: 10 ml Documented by: Throat Lozenges (Cepacol Sore Throat Lozenge) 1 lozenge MUCOUS MEM Q2H PRN PRN PRN Reason: SORE THROAT Medical Necessity - Tobacco Use Smoking Status: Never smoker Tobacco Use: Non-smoker Assessment/Plan All Active Problems Sepsis (Acute) Cat bite of hand (Acute) Cellulitis (Acute) 1. Acute sepsis secondary to right upper extremity cellulitis as a result of cat bite-on IV Unasyn. Elevate right upper extremity. Blood and wound cultures pending. PRN pain regimen. Patient has worsening swelling and erythema with 2 focal areas of pain in the right forearm and right bicep area. Will obtain MRI to rule out abscess. 2. Hypertension-continue lisinopril, HCTZ. 3. Hypothyroidism-continue Synthroid regimen. 4. Morbid obesity-encouraged diet lifestyle modifications. 5. History of SANDRA-status post uvula resection. 6. Mild renal insufficiency-unclear if acute on chronic, no prior labs for comparison. Resolved with IV fluids. Trend BMP. 7. Mild hypokalemia-replaced per protocol. DVT prophylaxis-Lovenox sc This patient was seen by VLAD Hung under the supervision of Dr. Brady. <Parish Brady F - Last Filed: 01/07/20 19:22> - Physical Exam Vitals/I&O's: Vital Signs Temp Pulse Resp BP Pulse Ox 99.0 F 85 18 103/52 L 98 01/07/20 15:29 01/07/20 15:29 01/07/20 15:29 01/07/20 15:29 01/07/20 15:29 Oxygen Delivery Method Room Air Weight: 215 lb 13.321 oz Body Mass Index (BMI) 43.6 Intake and Output for Last 24 Hours 01/05/20 01/06/20 01/07/20 23:59 23:59 23:59 Intake Total 2848.00 / 3048.00 1046 / 1046 Output Total 150 / 450 1850 / 1850 Balance 2698.00 / 2598.00 -804 / -804 Microbiology Past 72 Hours 01/06/20 01:40 Bite, Cat Gram Stain - Final 01/06/20 01:40 Bite, Cat Wound Culture - Preliminary No growth-Final to follow Laboratory Results 01/07/20 09:47: WBC 15.1 H, RBC 3.93 L, Hgb 11.9 L, Hct 35.8 L, MCV 91.1, MCH 30.3, MCHC 33.2, RDW Std Deviation 42.5, RDW Coeff of Gisela 12.7, Plt Count 148 L, MPV 9.6 01/07/20 09:47: Sodium 136, Potassium 3.8, Chloride 108 H, Carbon Dioxide 24.0, Anion Gap 4 L, BUN 14, Creatinine 0.83, Estim Creat Clear Calc 97.47, Est GFR (MDRD) Af Amer 88, Est GFR (MDRD) Non-Af 72, BUN/Creatinine Ratio 16.9, Glucose 135 H, Calcium 8.5 Current Medications Acetaminophen (Tylenol) 650 mg PO Q6H PRN PRN PRN Reason: Pain Score 1-10/Temp > 100.7 F Al Hydroxide/Mg Hydroxide (Mylanta Ii) 30 ml PO Q6H PRN PRN PRN Reason: Gastric Burning Albuterol Sulfate (Ventolin Aerosols) 2.5 mg INHALATION Q2H PRN PRN PRN Reason: Shortness of Breath/Wheezing Enoxaparin Sodium (Lovenox) 40 mg SC DAILY [facility] Last Admin: 01/07/20 10:14 Dose: 40 mg Documented by: Famotidine (Pepcid) 20 mg PO BID [facility] Last Admin: 01/07/20 10:14 Dose: 20 mg Documented by: Glucagon () 1 mg IM .X1 PRN PRN Reason: Hypoglycemia Guaifenesin (Robitussin) 20 ml PO Q4H PRN PRN PRN Reason: COUGH Hydralazine HCl (Apresoline Iv) 10 mg IV Q4H PRN PRN PRN Reason: SBP > 160 Hydrochlorothiazide (Hctz) 25 mg PO DAILY [facility] Last Admin: 01/07/20 10:14 Dose: 25 mg Documented by: Ampicillin Sodium/Sulbactam (Sodium 3 gm/ Sodium Chloride) 112 mls @ 150 mls/hr IV Q6 [facility] Last Admin: 01/07/20 17:35 Dose: 150 mls/hr Documented by: Dextrose (Dextrose 10%-Water) 250 mls @ 999 mls/hr IV .Q16M PRN; Protocol PRN Reason: HYPOGLYCEMIA Vancomycin IV Pharmacy to Dose (1 ea/ Sodium Chloride) 500 mls @ 250 mls/hr IV X1 PRN; Protocol PRN Reason: Rx to Dose Ibuprofen (Motrin) 400 mg PO Q4H PRN PRN PRN Reason: Pain Score 1-10/Temp > 100.7 F Last Admin: 01/06/20 22:23 Dose: 400 mg Documented by: Levothyroxine Sodium (Synthroid) 137 mcg PO DAILY@0600 [facility] Last Admin: 01/07/20 06:24 Dose: 137 mcg Documented by: Lisinopril (Zestril) 10 mg PO DAILY [facility] Last Admin: 01/07/20 10:14 Dose: 10 mg Documented by: Magnesium Hydroxide (Milk Of Magnesia) 30 ml PO DAILY PRN PRN PRN Reason: Constipation Melatonin (Melatonin) 3 mg PO QHS PRN PRN PRN Reason: INSOMNIA Morphine Sulfate () 2 mg IV Q3H PRN PRN PRN Reason: Pain Score 6-10/10 Last Admin: 01/06/20 06:06 Dose: 2 mg Documented by: Nitroglycerin (Nitrostat) 0.4 mg SUBLINGUAL Q5M PRN PRN Reason: CARDIAC/CHEST PAIN Ondansetron HCl (Zofran) 4 mg IV Q8H PRN PRN PRN Reason: NAUSEA/VOMITING Oxycodone HCl (Oxyir) 5 mg PO Q4H PRN PRN PRN Reason: Pain Score 4-5/10 Prochlorperazine Edisylate (Compazine Iv) 5 mg IV Q4H PRN PRN PRN Reason: Breakthrough nausea/vomiting Psyllium Hydrophilic Mucilloid (Metamucil) 1 packet PO DAILY PRN PRN PRN Reason: Constipation Senna/Docusate Sodium (Senokot-S, Carol-Colace) 2 tablet PO BID PRN PRN PRN Reason: Constipation Sodium Chloride () 10 - 40 ml IV UD PRN PRN Reason: SALINE FLUSH Last Admin: 01/06/20 23:28 Dose: 10 ml Documented by: Throat Lozenges (Cepacol Sore Throat Lozenge) 1 lozenge MUCOUS MEM Q2H PRN PRN PRN Reason: SORE THROAT Addendum: Dr. Brady I personally examined the patient and reviewed the chart. I agree with the above. 69-year-old female presenting with acute sepsis secondary to a cat bite on her right hand. She was started on Unasyn and her white count has improved however the erythema spread therefore we will add vancomycin to her Unasyn. CT scan was ordered and per my read does not appear to be any focal abscess however she does have bullae on the medial aspect of her right wrist and therefore surgery was consulted for evaluation. Inpatient E&M: [id number] [facility] Hosp L2
[2020-01-07 15:29] VITALS: BP 103/52; PULSE 85; RESP 18; TEMP 37.2; O2SAT 98
--- NOTE | 2020-01-07 16:00 | CT_ITS ---
STUDY: CT RIGHT UPPER EXTREMITY / HUMERUS REASON FOR EXAM: Female, 69 years old. CAT BITE to rt hand W/ WORSENING CELLULITIS RADIATION DOSAGE (If Supplied By Facility): CTDIvol = ( 65.12 ) mGy, DLP = ( 4506.21 ) mGycm TECHNIQUE: High resolution transaxial imaging was performed without the administration of intravenous contrast material. Motion artifact is present. COMPARISON: Right hand x-ray dated January 05, 2020 FINDINGS: There is mild to moderate diffuse non-specific edema of the right upper extremity, from the elbow joint to the hand. No focal fluid collections are seen. No subcutaneous gas is seen. There is no demonstrated solid, cystic, or lipomatous mass within the subcutaneous adipose space. Unremarkable visualized muscles. There is no demonstrated intramuscular hematoma. Normal visualized neurovascular bundles. Normal humerus. No fracture or cortical erosion or bony destruction seen. Degenerative changes are present in the wrists and visualized aspects of the hand The abdomen is included in the [id number]. No significant enhancement demonstrated. Multiple splenic calcifications are present. Several small calcifications in the liver present which are otherwise unremarkable. Unremarkable pancreas, kidneys, bowel loops, aorta and IVC, and adrenal glands. Degenerative changes are seen in the spine. No gross consolidation or effusion seen in the visualized lung terry. No significant body wall abnormality. The gallbladder is contracted. CT/Extremity Upper WITH Contrast IMPRESSION: 1. Right arm mild to moderate subcutaneous edema from the elbow joint to the hand likely due to cellulitis. No fluid collections are seen. No demonstrated osteomyelitis. Electronically Signed: Ariel Hernández MD at 20:13 EDT , Service support ,
[2020-01-07 20:34] VITALS: BP 110/51; PULSE 85; RESP 18; TEMP 36.9; O2SAT 96
--- NOTE | 2020-01-07 21:14 | PCM.RX.CS ---
Consult Pharmacy has been consulted to manage selected antiobiotic: Vancomycin Type of Consult: New start Suspected Infection: Skin/Soft tissue Labs: Sodium 136 mmol/L (136-145) 01/07/20 09:47 Potassium 3.8 mmol/L (3.5-5.1) 01/07/20 09:47 Chloride 108 mmol/L (98-107) H 01/07/20 09:47 Carbon Dioxide 24.0 mmol/L (21.0-32.0) 01/07/20 09:47 Anion Gap 4 (5-15) L 01/07/20 09:47 BUN 14 mg/dL (7-18) 01/07/20 09:47 Creatinine 0.83 mg/dL (0.55-1.02) 01/07/20 09:47 Est GFR (MDRD) Af Amer 88 mL/min (>60) 01/07/20 09:47 Est GFR (MDRD) Non-Af 72 mL/min (>60) 01/07/20 09:47 BUN/Creatinine Ratio 16.9 RATIO (-20) 01/07/20 09:47 Glucose 135 mg/dL (74-106) H 01/07/20 09:47 Microbiology: Microbiology 01/06/20 01:40 Bite, Cat Gram Stain - Final 01/06/20 01:40 Bite, Cat Wound Culture - Preliminary No growth-Final to follow Weight used for dosin kg Estimated Creatinine Clearance: 66ml/min Goal Trough: 15-20 mcg/mL Pharmacy Plan for Drug Dosing: Pt to receive a 25mg/kg loading dose (Vancomycin 2000mg IV x1) on 01/07/20 at 2000. Based on pt's weight and renal function, initial dosing recommendation is Vancomycin 1250mg IV q12h to start 01/08/20 at 0800. Trough to be drawn before the 4th total dose. CrCl was calculated from Clinical Pharmacology due to pt's height of 59inches and BMI. Pharmacy Service will continue to monitor and adjust dosing as required. Follow-Up Labs: Trough Vancomycin - 01/09/20 at 0730
[2020-01-08 02:35] VITALS: BP 135/85; PULSE 83; RESP 18; TEMP 37.1; O2SAT 98
[2020-01-08] MEDS: Levothyroxine 137 MCG Tablet PO (06:05)
[2020-01-08 07:09] VITALS: O2SAT 93
[2020-01-08 07:12] LABS: Hematocrit 35.3 % (37-47); Hemoglobin 11.6 g/dL (12.0-15.0); Mean Corp Hgb Conc 32.9 g/dL (32-36); Mean Corpuscular Hgb 29.4 pg (27.0-32.0); Mean Corpuscular Volume 89.6 fL (81-99); Mean Platelet Vol. 9.7 fl (6.2-12.0); Platelet Count 190 K/mm3 (150-450); RBC Distribution Width CV 12.5 % (11.6-14.6); RBC Distribution Width SD 41.2 fl (35.1-43.9); Red Blood Count 3.94 M/mm3 (4.2-5.4); White Blood Count 10.9 K/mm3 (4.4-11.0)
[2020-01-08 08:30] VITALS: BP 122/67; PULSE 76; RESP 18; TEMP 36.6; O2SAT 98
[2020-01-08] MEDS: Enoxaparin 40 MG/0.4 ML Syringe SC (09:37)
[2020-01-08] MEDS: hydroCHLOROthiazide 25 MG Tablet PO (09:37)
[2020-01-08] MEDS: Lisinopril 10 MG Tablet PO (09:38)
[2020-01-08] MEDS: Famotidine 20 MG Tablet PO ×2 (09:38→21:47)
--- NOTE | 2020-01-08 09:46 | PN_ITS ---
<Peggy Billingsley - Last Filed: 01/08/20 09:51> Patient Problems: Active and Suspected Problems Sepsis (Acute) Cat bite of hand (Acute) Cellulitis (Acute) Subjective: Patient seen and examined. Slight improvement in right upper extremity swelling, redness mildly increased. Patient denies fever, chills. - Physical Exam Vitals/I&O's: Vital Signs Temp Pulse Resp BP Pulse Ox 97.8 F 76 18 122/67 H 98 01/08/20 08:30 01/08/20 08:30 01/08/20 08:30 01/08/20 08:30 01/08/20 08:30 Oxygen Delivery Method Room Air Weight: 215 lb 13.321 oz Body Mass Index (BMI) 43.6 Intake and Output for Last 24 Hours 01/06/20 01/07/20 01/08/20 23:59 23:59 23:59 Intake Total 2848.00 / 3048.00 1997 524 / 524 Output Total 150 / 450 2200 / 2200 700 / 700 Balance 2698.00 / 2598.00 -202 / -202 -176 / -176 General: Alert, Oriented x3, Cooperative HEENT: Atraumatic, PERRLA, EOMI, Normocephalic Neck: Supple, No JVD, Negative Carotid Bruits Lungs: Clear to auscultation, Normal air movement Cardiovascular: Regular rate, Regular Rhythm, Normal S1, Normal S2, No murmurs Abdomen: Bowel Sounds Present, Soft, Non Tender, Non-Distended, Obese Extremities: No clubbing, No cyanosis, Edema - Right upper extremity Skin: - - Right hand and wrist puncture wounds from cat bites, significant erythema with streaking up right arm into axillary region. Right wrist area with blistering. Musculoskeletal: No Tenderness to Palpation of Joints or Extremities Neurological: Cranial nerves II-XII grossly intact, Neuro grossly intact Psych/Mental Status: Normal Affect, Appropriate Microbiology Past 72 Hours 01/06/20 00:59 Blood Culture (Wb) - Left Hand Blood Culture - Preliminary No growth in 48 hours. 01/05/20 23:35 Blood Culture (Wb) - Left Forearm Blood Culture - Preliminary No growth in 48 hours. 01/06/20 01:40 Bite, Cat Gram Stain - Final 01/06/20 01:40 Bite, Cat Wound Culture - Preliminary No growth-Final to follow Laboratory Results 01/07/20 09:47: WBC 15.1 H, RBC 3.93 L, Hgb 11.9 L, Hct 35.8 L, MCV 91.1, MCH 30.3, MCHC 33.2, RDW Std Deviation 42.5, RDW Coeff of Gisela 12.7, Plt Count 148 L, MPV 9.6 01/07/20 09:47: Sodium 136, Potassium 3.8, Chloride 108 H, Carbon Dioxide 24.0, Anion Gap 4 L, BUN 14, Creatinine 0.83, Estim Creat Clear Calc 97.47, Est GFR (MDRD) Af Amer 88, Est GFR (MDRD) Non-Af 72, BUN/Creatinine Ratio 16.9, Glucose 135 H, Calcium 8.5 01/08/20 06:57: WBC 10.9, RBC 3.94 L, Hgb 11.6 L, Hct 35.3 L, MCV 89.6, MCH 29.4, MCHC 32.9, RDW Std Deviation 41.2, RDW Coeff of Gisela 12.5, Plt Count 190, MPV 9.7 Current Medications Acetaminophen (Tylenol) 650 mg PO Q6H PRN PRN PRN Reason: Pain Score 1-10/Temp > 100.7 F Al Hydroxide/Mg Hydroxide (Mylanta Ii) 30 ml PO Q6H PRN PRN PRN Reason: Gastric Burning Albuterol Sulfate (Ventolin Aerosols) 2.5 mg INHALATION Q2H PRN PRN PRN Reason: Shortness of Breath/Wheezing Enoxaparin Sodium (Lovenox) 40 mg SC DAILY [facility] Last Admin: 01/08/20 09:37 Dose: 40 mg Documented by: Famotidine (Pepcid) 20 mg PO BID [facility] Last Admin: 01/08/20 09:38 Dose: 20 mg Documented by: Glucagon () 1 mg IM .X1 PRN PRN Reason: Hypoglycemia Guaifenesin (Robitussin) 20 ml PO Q4H PRN PRN PRN Reason: COUGH Hydralazine HCl (Apresoline Iv) 10 mg IV Q4H PRN PRN PRN Reason: SBP > 160 Hydrochlorothiazide (Hctz) 25 mg PO DAILY [facility] Last Admin: 01/08/20 09:37 Dose: 25 mg Documented by: Ampicillin Sodium/Sulbactam (Sodium 3 gm/ Sodium Chloride) 112 mls @ 150 mls/hr IV Q6 [facility] Last Infusion: 01/08/20 07:02 Dose: Infused Documented by: Dextrose (Dextrose 10%-Water) 250 mls @ 999 mls/hr IV .Q16M PRN; Protocol PRN Reason: HYPOGLYCEMIA Vancomycin IV Pharmacy to Dose (1 ea/ Sodium Chloride) 500 mls @ 250 mls/hr IV X1 PRN; Protocol PRN Reason: Rx to Dose Vancomycin HCl 1,250 mg/ (Sodium Chloride) 275 mls @ 167 mls/hr IV Q12H [facility] Last Admin: 01/08/20 09:37 Dose: 167 mls/hr Documented by: Ibuprofen (Motrin) 400 mg PO Q4H PRN PRN PRN Reason: Pain Score 1-10/Temp > 100.7 F Last Admin: 01/06/20 22:23 Dose: 400 mg Documented by: Levothyroxine Sodium (Synthroid) 137 mcg PO DAILY@0600 [facility] Last Admin: 01/08/20 06:05 Dose: 137 mcg Documented by: Lisinopril (Zestril) 10 mg PO DAILY [facility] Last Admin: 01/08/20 09:38 Dose: 10 mg Documented by: Magnesium Hydroxide (Milk Of Magnesia) 30 ml PO DAILY PRN PRN PRN Reason: Constipation Melatonin (Melatonin) 3 mg PO QHS PRN PRN PRN Reason: INSOMNIA Morphine Sulfate () 2 mg IV Q3H PRN PRN PRN Reason: Pain Score 6-10/10 Last Admin: 01/06/20 06:06 Dose: 2 mg Documented by: Nitroglycerin (Nitrostat) 0.4 mg SUBLINGUAL Q5M PRN PRN Reason: CARDIAC/CHEST PAIN Ondansetron HCl (Zofran) 4 mg IV Q8H PRN PRN PRN Reason: NAUSEA/VOMITING Oxycodone HCl (Oxyir) 5 mg PO Q4H PRN PRN PRN Reason: Pain Score 4-5/10 Prochlorperazine Edisylate (Compazine Iv) 5 mg IV Q4H PRN PRN PRN Reason: Breakthrough nausea/vomiting Psyllium Hydrophilic Mucilloid (Metamucil) 1 packet PO DAILY PRN PRN PRN Reason: Constipation Senna/Docusate Sodium (Senokot-S, Carol-Colace) 2 tablet PO BID PRN PRN PRN Reason: Constipation Sodium Chloride () 10 - 40 ml IV UD PRN PRN Reason: SALINE FLUSH Last Admin: 01/06/20 23:28 Dose: 10 ml Documented by: Throat Lozenges (Cepacol Sore Throat Lozenge) 1 lozenge MUCOUS MEM Q2H PRN PRN PRN Reason: SORE THROAT Medical Necessity - Tobacco Use Smoking Status: Never smoker Tobacco Use: Non-smoker Assessment/Plan All Active Problems Sepsis (Acute) Cat bite of hand (Acute) Cellulitis (Acute) 1. Acute sepsis secondary to right upper extremity cellulitis as a result of cat bite-on IV Unasyn. Elevate right upper extremity. Blood and wound cultures show no growth thus far. PRN pain regimen. Right upper extremity CT demonstrates right arm mild to moderate subcutaneous edema from the elbow joint to the hand. No fluid collections or osteomyelitis. Dr. Hess consulted for further evaluation. Wound RN following. IV vancomycin added given worsening erythema. Jerry wrap right upper extremity to help with swelling. 2. Hypertension-continue lisinopril, HCTZ. 3. Hypothyroidism-continue Synthroid regimen. 4. Morbid obesity-encouraged diet lifestyle modifications. 5. History of SANDRA-status post uvula resection. 6. Mild renal insufficiency-unclear if acute on chronic, no prior labs for comparison. Resolved with IV fluids. Trend BMP. 7. Mild hypokalemia-replaced per protocol. DVT prophylaxis-Lovenox sc This patient was seen by VLAD Hung under the supervision of Dr. Brady. <Parish Brady F - Last Filed: 01/08/20 14:24> - Physical Exam Vitals/I&O's: Vital Signs Temp Pulse Resp BP Pulse Ox 97.8 F 76 18 122/67 H 98 01/08/20 08:30 01/08/20 08:30 01/08/20 08:30 01/08/20 08:30 01/08/20 08:30 Oxygen Delivery Method Room Air Weight: 215 lb 13.321 oz Body Mass Index (BMI) 43.6 Intake and Output for Last 24 Hours 01/06/20 01/07/20 01/08/20 23:59 23:59 23:59 Intake Total 2848.00 / 3048.00 1997 799 / 799 Output Total 150 / 450 2200 / 2200 700 / 700 Balance 2698.00 / 2598.00 -202 / -202 99 / 99 Microbiology Past 72 Hours 01/06/20 01:40 Bite, Cat Gram Stain - Final 01/06/20 01:40 Bite, Cat Wound Culture - Preliminary No growth-Final to follow 01/06/20 00:59 Blood Culture (Wb) - Left Hand Blood Culture - Preliminary No growth in 48 hours. 01/05/20 23:35 Blood Culture (Wb) - Left Forearm Blood Culture - Preliminary No growth in 48 hours. Laboratory Results 01/08/20 06:57: WBC 10.9, RBC 3.94 L, Hgb 11.6 L, Hct 35.3 L, MCV 89.6, MCH 29.4, MCHC 32.9, RDW Std Deviation 41.2, RDW Coeff of Gisela 12.5, Plt Count 190, MPV 9.7 Current Medications Acetaminophen (Tylenol) 650 mg PO Q6H PRN PRN PRN Reason: Pain Score 1-10/Temp > 100.7 F Al Hydroxide/Mg Hydroxide (Mylanta Ii) 30 ml PO Q6H PRN PRN PRN Reason: Gastric Burning Albuterol Sulfate (Ventolin Aerosols) 2.5 mg INHALATION Q2H PRN PRN PRN Reason: Shortness of Breath/Wheezing Enoxaparin Sodium (Lovenox) 40 mg SC DAILY [facility] Last Admin: 01/08/20 09:37 Dose: 40 mg Documented by: Famotidine (Pepcid) 20 mg PO BID [facility] Last Admin: 01/08/20 09:38 Dose: 20 mg Documented by: Glucagon () 1 mg IM .X1 PRN PRN Reason: Hypoglycemia Guaifenesin (Robitussin) 20 ml PO Q4H PRN PRN PRN Reason: COUGH Hydralazine HCl (Apresoline Iv) 10 mg IV Q4H PRN PRN PRN Reason: SBP > 160 Hydrochlorothiazide (Hctz) 25 mg PO DAILY [facility] Last Admin: 01/08/20 09:37 Dose: 25 mg Documented by: Ampicillin Sodium/Sulbactam (Sodium 3 gm/ Sodium Chloride) 112 mls @ 150 mls/hr IV Q6 [facility] Last Admin: 01/08/20 12:04 Dose: 150 mls/hr Documented by: Dextrose (Dextrose 10%-Water) 250 mls @ 999 mls/hr IV .Q16M PRN; Protocol PRN Reason: HYPOGLYCEMIA Vancomycin IV Pharmacy to Dose (1 ea/ Sodium Chloride) 500 mls @ 250 mls/hr IV X1 PRN; Protocol PRN Reason: Rx to Dose Vancomycin HCl 1,250 mg/ (Sodium Chloride) 275 mls @ 167 mls/hr IV Q12H [facility] Last Infusion: 01/08/20 11:16 Dose: Infused Documented by: Ibuprofen (Motrin) 400 mg PO Q4H PRN PRN PRN Reason: Pain Score 1-10/Temp > 100.7 F Last Admin: 01/06/20 22:23 Dose: 400 mg Documented by: Levothyroxine Sodium (Synthroid) 137 mcg PO DAILY@0600 [facility] Last Admin: 01/08/20 06:05 Dose: 137 mcg Documented by: Lisinopril (Zestril) 10 mg PO DAILY [facility] Last Admin: 01/08/20 09:38 Dose: 10 mg Documented by: Magnesium Hydroxide (Milk Of Magnesia) 30 ml PO DAILY PRN PRN PRN Reason: Constipation Melatonin (Melatonin) 3 mg PO QHS PRN PRN PRN Reason: INSOMNIA Morphine Sulfate () 2 mg IV Q3H PRN PRN PRN Reason: Pain Score 6-10/10 Last Admin: 01/06/20 06:06 Dose: 2 mg Documented by: Nitroglycerin (Nitrostat) 0.4 mg SUBLINGUAL Q5M PRN PRN Reason: CARDIAC/CHEST PAIN Ondansetron HCl (Zofran) 4 mg IV Q8H PRN PRN PRN Reason: NAUSEA/VOMITING Oxycodone HCl (Oxyir) 5 mg PO Q4H PRN PRN PRN Reason: Pain Score 4-5/10 Prochlorperazine Edisylate (Compazine Iv) 5 mg IV Q4H PRN PRN PRN Reason: Breakthrough nausea/vomiting Psyllium Hydrophilic Mucilloid (Metamucil) 1 packet PO DAILY PRN PRN PRN Reason: Constipation Senna/Docusate Sodium (Senokot-S, Carol-Colace) 2 tablet PO BID PRN PRN PRN Reason: Constipation Sodium Chloride () 10 - 40 ml IV UD PRN PRN Reason: SALINE FLUSH Last Admin: 01/06/20 23:28 Dose: 10 ml Documented by: Throat Lozenges (Cepacol Sore Throat Lozenge) 1 lozenge MUCOUS MEM Q2H PRN PRN PRN Reason: SORE THROAT Addendum: Dr. Brady I personally examined the patient and reviewed the chart. I agree with the above. 69-year-old female with right upper extremity swelling and redness after a cat bite. She did have extension of her redness today, vancomycin had been added to her regimen of Unasyn. We will continue with both, she did test negative for MRSA PCR. She does have resolution of her leukocytosis. CT scan did not show any significant abscess and therefore surgical evaluation is unnecessary at this point. We will keep arm elevated to help decrease swelling. Also wound cultures and blood cultures are negative. Inpatient E&M: 99402 Subs Hosp L2
[2020-01-08 15:00] VITALS: BP 126/77; PULSE 66; RESP 18; TEMP 37; O2SAT 96
[2020-01-08] MEDS: 0.9% Saline Lock 10 ML Syringe IV (17:23)
[2020-01-08 20:10] VITALS: BP 130/64; PULSE 69; RESP 18; TEMP 36.7; O2SAT 96
[2020-01-08] MEDS: Ibuprofen 400 MG Tablet PO (21:48)
[2020-01-09 02:10] VITALS: BP 131/55; PULSE 58; RESP 18; TEMP 36.6; O2SAT 97
[2020-01-09] MEDS: Levothyroxine 137 MCG Tablet PO (05:34)
[2020-01-09 08:07] VITALS: O2SAT 96
[2020-01-09 08:10] VITALS: BP 131/68; PULSE 52; RESP 18; TEMP 36.9; O2SAT 96
[2020-01-09 08:21] LABS: Creatinine, Serum 0.81 mg/dL (0.55-1.02); EST Glomerular Filtration Rate 74 mL/min (>60); Est Glom Filt Rate - Afr Amer 90 mL/min (>60); Estimated Creatinine Clearance 99.88 ml/min
[2020-01-09] MEDS: hydroCHLOROthiazide 25 MG Tablet PO (08:30)
[2020-01-09] MEDS: Lisinopril 10 MG Tablet PO (08:30)
[2020-01-09] MEDS: Famotidine 20 MG Tablet PO (08:30)
[2020-01-09] MEDS: 0.9% Saline Lock 10 ML Syringe IV (08:30)
--- NOTE | 2020-01-09 09:22 | PCM.RX.CS ---
Consult Pharmacy has been consulted to manage selected antiobiotic: Vancomycin Type of Consult: Follow-up Suspected Infection: Sepsis, Skin/Soft tissue Prior Doses of Antibiotics Received/Current Regimen: the patient is currently on 1250mg IV q12h Labs: Sodium 136 mmol/L (136-145) 01/07/20 09:47 Potassium 3.8 mmol/L (3.5-5.1) 01/07/20 09:47 Chloride 108 mmol/L (98-107) H 01/07/20 09:47 Carbon Dioxide 24.0 mmol/L (21.0-32.0) 01/07/20 09:47 Anion Gap 4 (5-15) L 01/07/20 09:47 BUN 14 mg/dL (7-18) 01/07/20 09:47 Creatinine 0.81 mg/dL (0.55-1.02) 01/09/20 07:50 Est GFR (MDRD) Af Amer 90 mL/min (>60) 01/09/20 07:50 Est GFR (MDRD) Non-Af 74 mL/min (>60) 01/09/20 07:50 BUN/Creatinine Ratio 16.9 RATIO (10-20) 01/07/20 09:47 Glucose 135 mg/dL (74-106) H 01/07/20 09:47 Vancomycin Trough 14.0 ug/mL (5.0-15.0) 01/09/20 07:50 Microbiology: Microbiology 01/06/20 01:40 Bite, Cat Gram Stain - Final 01/06/20 01:40 Bite, Cat Wound Culture - Preliminary No growth-Final to follow 01/06/20 00:59 Blood Culture (Wb) - Left Hand Blood Culture - Preliminary No growth in 48 hours. 01/05/20 23:35 Blood Culture (Wb) - Left Forearm Blood Culture - Preliminary No growth in 48 hours. Weight used for dosin.9 kg Estimated Creatinine Clearance: 68ml/min Goal Trough: 15-20 mcg/mL Pharmacy Plan for Drug Dosing: The vancomycin trough level drawn before this morning's dose (drawn 12 hours after last night's dose) came back as 14.0. This is slightly below the goal range of 15-20 but since the patient has only had 3 doses thus far before this level was drawn, the plan is to keep the same dosing for now and check another trough in a couple days to see if it has moved into the goal range. The patient's CrCl of 68 was calculated using an adjusted body weight in our Clinical Pharmacology program. Pharmacy Service will continue to monitor and adjust dosing as required. Follow-Up Labs: Trough Vancomycin Labs to be done on [date and time ordered]: 01/11/20 07:30
--- NOTE | 2020-01-09 10:45 | DCINST_ITS ---
- Discharge Diagnoses Current Active Problems: Current Active and Chronic Problems Sepsis (Acute) Cat bite of hand (Acute) Cellulitis (Acute) HTN (hypertension) (Chronic) Hypothyroidism (Chronic) History of obstructive sleep apnea (Chronic) Morbid obesity (Chronic) You will use the following diet at home:: Calorie/Carbohydrate Controlled (specify 1200, 1400, etc) Discharge Activity: Return to Normal Activity Call your doctor if you observe: Shortness of breath, Dizziness, Fainting spells, Chest pain Allergies/Adverse Reactions: Allergies No Known Allergies Allergy (Verified 01/05/20 22:54) Medications to take at Discharge Hydrochlorothiazide [Hctz] 25 mg PO DAILY 01/06/20 Levothyroxine Sodium [Synthroid] 137 mcg PO DAILY 01/06/20 Lisinopril [Zestril] 10 mg PO DAILY 01/06/20 Amox/Clavulanate Tablet [Augmentin Tablet] 875 mg PO Q12H #14 tab 01/09/20 The following prescriptions were given: Amox/Clavulanate Tablet [Augmentin Tablet] 875 mg PO Q12H #14 tab Transmission Status: Pending to [facility]/pharmacy #[id number] Primary Care Physician: Mateo Avalos MD [Primary Care Provider] - Please follow up with your Primary Care Physician in: 1 Week Test Results: Test results from this visit will be discussed in further detail at your follow- up appointment, if applicable. Proposed Discharge Date: 01/09/20
[2020-01-09] MEDS: Enoxaparin 40 MG/0.4 ML Syringe SC (10:57)
--- NOTE | 2020-01-09 11:09 | PCM.DC.SUM ---
<Peggy Billingsley - Last Filed: 01/09/20 11:16> Discharge Date and Diagnosis Date of Admission: 01/06/20 Date of Discharge: 01/09/20 - Primary Discharge Diagnosis Active and Suspected Problems 1. Acute sepsis secondary to right upper extremity cellulitis as a result of cat bite 2. Hypertension 3. Hypothyroidism 4. Morbid obesity 5. History of SANDRA 6. Mild renal insufficiency-resolved 7. Mild hypokalemia - Secondary Discharge Diagnosis Chronic Problems HTN (hypertension) (Chronic) Hypothyroidism (Chronic) History of obstructive sleep apnea (Chronic) Morbid obesity (Chronic) Hospital Course and Treatment Imaging Results: Diagnostic Data Hand X-Ray 01/06/20 00:00 IMPRESSION: No evidence for acute fracture. Diffuse soft tissue swelling. Electronically Signed: Davon Rodriguez at 0:48 EDT Tel , Service support , Upper Extremity CT 01/07/20 16:00 IMPRESSION: 1. Right arm mild to moderate subcutaneous edema from the elbow joint to the hand likely due to cellulitis. No fluid collections are seen. No demonstrated osteomyelitis. Electronically Signed: Ariel Hernández MD at 20:13 EDT , Service support , Consultations 01/06/20 04:51 Consult: Onc/Wound/eyelet machine operator Routine Comment: Reason for Consult:: cat bite Operations: None Procedures: None Summary of Care Provided: The patient is a 69 year old F admitted 01/06/2020 due to cat bite with right hand and forearm redness and pain. 1. Acute sepsis secondary to right upper extremity cellulitis as a result of cat bite-Blood and wound cultures show no growth. Right upper extremity CT demonstrates right arm mild to moderate subcutaneous edema from the elbow joint to the hand. No fluid collections or osteomyelitis. Patient treated with IV Unasyn during admission. No further leukocytosis or fever. Extremity appears significantly improved. Discharged on Augmentin 875 mg p.o. twice daily for 7 days at discharge. Follow-up with primary care physician in 1 week. 2. Hypertension-continue lisinopril, HCTZ. 3. Hypothyroidism-continue Synthroid regimen. 4. Morbid obesity-encouraged diet lifestyle modifications. 5. History of SANDRA-status post uvula resection. 6. Mild renal insufficiency-unclear if acute on chronic, no prior labs for comparison. Resolved with IV fluids. Trend BMP. 7. Mild hypokalemia-replaced per protocol. General: Alert, Oriented x3, Cooperative HEENT: Atraumatic, PERRLA, EOMI, Normocephalic Neck: Supple, No JVD, Negative Carotid Bruits Lungs: Clear to auscultation, Normal air movement Cardiovascular: Regular rate, Regular Rhythm, Normal S1, Normal S2, No murmurs Abdomen: Bowel Sounds Present, Soft, Non Tender, Non-Distended, Obese Extremities: No clubbing, No cyanosis, Edema - Right upper extremity Skin: - - Right hand and wrist puncture wounds from cat bites, significant erythema with streaking up right arm into axillary region. Right wrist area with blistering. Musculoskeletal: No Tenderness to Palpation of Joints or Extremities Neurological: Cranial nerves II-XII grossly intact, Neuro grossly intact Psych/Mental Status: Normal Affect, Appropriate Patient seen and examined prior to discharge. Physical assessment as noted above. Patient is stable for discharge with follow up recommendations as noted above. This patient was seen by VLAD Hung under the supervision of Dr. Brady. - Physical Exam Vitals/I&O's: Vital Signs Temp Pulse Resp BP Pulse Ox 98.4 F 52 L 18 131/68 H 96 01/09/20 08:10 01/09/20 08:10 01/09/20 08:10 01/09/20 08:10 01/09/20 08:10 Oxygen Delivery Method Room Air Weight: 215 lb 13.321 oz Body Mass Index (BMI) 43.6 Intake and Output for Last 24 Hours 01/07/20 01/08/20 01/09/20 23:59 23:59 23:59 Intake Total 1997 / 1997 2818 / 2818 499 / 499 Output Total 2199 / 2200 170 / 2000 950 / 950 Balance -202 / -202 1118 / 818 -451 / -451 Microbiology Past 72 Hours 01/06/20 01:40 Bite, Cat Gram Stain - Final 01/06/20 01:40 Bite, Cat Wound Culture - Final No growth aerobically. 01/06/20 00:59 Blood Culture (Wb) - Left Hand Blood Culture - Preliminary No growth in 48 hours. 01/05/20 23:35 Blood Culture (Wb) - Left Forearm Blood Culture - Preliminary No growth in 48 hours. Laboratory Results 01/09/20 07:50: Vancomycin Trough 14.0 01/09/20 07:50: Creatinine 0.81, Estim Creat Clear Calc 99.88, Est GFR (MDRD) Af Amer 90, Est GFR (MDRD) Non-Af 74 Current Medications Acetaminophen (Tylenol) 650 mg PO Q6H PRN PRN PRN Reason: Pain Score 1-10/Temp > 100.7 F Al Hydroxide/Mg Hydroxide (Mylanta Ii) 30 ml PO Q6H PRN PRN PRN Reason: Gastric Burning Albuterol Sulfate (Ventolin Aerosols) 2.5 mg INHALATION Q2H PRN PRN PRN Reason: Shortness of Breath/Wheezing Enoxaparin Sodium (Lovenox) 40 mg SC DAILY [facility] Last Admin: 01/09/20 10:57 Dose: 40 mg Documented by: Famotidine (Pepcid) 20 mg PO BID [facility] Last Admin: 01/09/20 08:30 Dose: 20 mg Documented by: Glucagon () 1 mg IM .X1 PRN PRN Reason: Hypoglycemia Guaifenesin (Robitussin) 20 ml PO Q4H PRN PRN PRN Reason: COUGH Hydralazine HCl (Apresoline Iv) 10 mg IV Q4H PRN PRN PRN Reason: SBP > 160 Hydrochlorothiazide (Hctz) 25 mg PO DAILY [facility] Last Admin: 01/09/20 08:30 Dose: 25 mg Documented by: Ampicillin Sodium/Sulbactam (Sodium 3 gm/ Sodium Chloride) 112 mls @ 150 mls/hr IV Q6 [facility] Last Infusion: 01/09/20 06:19 Dose: Infused Documented by: Dextrose (Dextrose 10%-Water) 250 mls @ 999 mls/hr IV .Q16M PRN; Protocol PRN Reason: HYPOGLYCEMIA Vancomycin IV Pharmacy to Dose (1 ea/ Sodium Chloride) 500 mls @ 250 mls/hr IV X1 PRN; Protocol PRN Reason: Rx to Dose Vancomycin HCl 1,250 mg/ (Sodium Chloride) 275 mls @ 167 mls/hr IV Q12H [facility] Last Infusion: 01/09/20 10:07 Dose: Infused Documented by: Ibuprofen (Motrin) 400 mg PO Q4H PRN PRN PRN Reason: Pain Score 1-10/Temp > 100.7 F Last Admin: 01/08/20 21:48 Dose: 400 mg Documented by: Levothyroxine Sodium (Synthroid) 137 mcg PO DAILY@0600 [facility] Last Admin: 01/09/20 05:34 Dose: 137 mcg Documented by: Lisinopril (Zestril) 10 mg PO DAILY [facility] Last Admin: 01/09/20 08:30 Dose: 10 mg Documented by: Magnesium Hydroxide (Milk Of Magnesia) 30 ml PO DAILY PRN PRN PRN Reason: Constipation Melatonin (Melatonin) 3 mg PO QHS PRN PRN PRN Reason: INSOMNIA Morphine Sulfate () 2 mg IV Q3H PRN PRN PRN Reason: Pain Score 6-10/10 Last Admin: 01/06/20 06:06 Dose: 2 mg Documented by: Nitroglycerin (Nitrostat) 0.4 mg SUBLINGUAL Q5M PRN PRN Reason: CARDIAC/CHEST PAIN Ondansetron HCl (Zofran) 4 mg IV Q8H PRN PRN PRN Reason: NAUSEA/VOMITING Oxycodone HCl (Oxyir) 5 mg PO Q4H PRN PRN PRN Reason: Pain Score 4-5/10 Prochlorperazine Edisylate (Compazine Iv) 5 mg IV Q4H PRN PRN PRN Reason: Breakthrough nausea/vomiting Psyllium Hydrophilic Mucilloid (Metamucil) 1 packet PO DAILY PRN PRN PRN Reason: Constipation Senna/Docusate Sodium (Senokot-S, Carol-Colace) 2 tablet PO BID PRN PRN PRN Reason: Constipation Sodium Chloride () 10 - 40 ml IV UD PRN PRN Reason: SALINE FLUSH Last Admin: 01/09/20 08:30 Dose: 10 ml Documented by: Throat Lozenges (Cepacol Sore Throat Lozenge) 1 lozenge MUCOUS MEM Q2H PRN PRN PRN Reason: SORE THROAT Discharge Diet: 1800 Calorie Control Diet Discharge Activity: Return to Normal Activity Call your doctor if you observe: Shortness of breath, Dizziness, Fainting spells, Chest pain Home Medications: Medications to take at Discharge Hydrochlorothiazide [Hctz] 25 mg PO DAILY 01/06/20 Levothyroxine Sodium [Synthroid] 137 mcg PO DAILY 01/06/20 Lisinopril [Zestril] 10 mg PO DAILY 01/06/20 Amox/Clavulanate Tablet [Augmentin Tablet] 875 mg PO Q12H #14 tab 01/09/20 Following Prescrptions Were Given to Patient: Amox/Clavulanate Tablet [Augmentin Tablet] 875 mg PO Q12H #14 tab Transmission Status: Received by [facility]/pharmacy #[id number] Primary Care Physician: Mateo Avalos MD [Primary Care Provider] - Please follow up with your Primary Care Physician in: 1 Week Disposition: Home Minutes spent on discharge:: 35 Patient Condition:: Stable Medical Necessity - Tobacco Use Smoking Status: Never smoker Tobacco Use: Non-smoker Meaningful Use Info Meaningful Use Diagnoses (Choose all that apply): None applicable <Parish Brady F - Last Filed: 01/09/20 12:15> Discharge Date and Diagnosis - Secondary Discharge Diagnosis Chronic Problems HTN (hypertension) (Chronic) Hypothyroidism (Chronic) History of obstructive sleep apnea (Chronic) Morbid obesity (Chronic) Hospital Course and Treatment Consultations 01/06/20 04:51 Consult: Onc/Wound/eyelet machine operator Routine Comment: Reason for Consult:: cat bite Summary of Care Provided: The patient is a 69 year old F [] - Physical Exam Vitals/I&O's: Vital Signs Temp Pulse Resp BP Pulse Ox 98.4 F 52 L 18 131/68 H 96 01/09/20 08:10 01/09/20 08:10 01/09/20 08:10 01/09/20 08:10 01/09/20 08:10 Oxygen Delivery Method Room Air Weight: 215 lb 13.321 oz Body Mass Index (BMI) 43.6 Intake and Output for Last 24 Hours 01/07/20 01/08/20 01/09/20 23:59 23:59 23:59 Intake Total 1997 2818 / 2818 499 / 499 Output Total 2199 / 0 1699 / 1999 950 / 950 Balance -202 / -202 1118 / 818 -451 / -451 Microbiology Past 72 Hours 01/06/20 01:40 Bite, Cat Gram Stain - Final 01/06/20 01:40 Bite, Cat Wound Culture - Final No growth aerobically. 01/06/20 00:59 Blood Culture (Wb) - Left Hand Blood Culture - Preliminary No growth in 48 hours. 01/05/20 23:35 Blood Culture (Wb) - Left Forearm Blood Culture - Preliminary No growth in 48 hours. Laboratory Results 01/09/20 07:50: Vancomycin Trough 14.0 01/09/20 07:50: Creatinine 0.81, Estim Creat Clear Calc 99.88, Est GFR (MDRD) Af Amer 90, Est GFR (MDRD) Non-Af 74 Current Medications Acetaminophen (Tylenol) 650 mg PO Q6H PRN PRN PRN Reason: Pain Score 1-10/Temp > 100.7 F Al Hydroxide/Mg Hydroxide (Mylanta Ii) 30 ml PO Q6H PRN PRN PRN Reason: Gastric Burning Albuterol Sulfate (Ventolin Aerosols) 2.5 mg INHALATION Q2H PRN PRN PRN Reason: Shortness of Breath/Wheezing Enoxaparin Sodium (Lovenox) 40 mg SC DAILY [facility] Last Admin: 01/09/20 10:57 Dose: 40 mg Documented by: Famotidine (Pepcid) 20 mg PO BID [facility] Last Admin: 01/09/20 08:30 Dose: 20 mg Documented by: Glucagon () 1 mg IM .X1 PRN PRN Reason: Hypoglycemia Guaifenesin (Robitussin) 20 ml PO Q4H PRN PRN PRN Reason: COUGH Hydralazine HCl (Apresoline Iv) 10 mg IV Q4H PRN PRN PRN Reason: SBP > 160 Hydrochlorothiazide (Hctz) 25 mg PO DAILY [facility] Last Admin: 01/09/20 08:30 Dose: 25 mg Documented by: Ampicillin Sodium/Sulbactam (Sodium 3 gm/ Sodium Chloride) 112 mls @ 150 mls/hr IV Q6 [facility] Last Infusion: 01/09/20 06:19 Dose: Infused Documented by: Dextrose (Dextrose 10%-Water) 250 mls @ 999 mls/hr IV .Q16M PRN; Protocol PRN Reason: HYPOGLYCEMIA Vancomycin IV Pharmacy to Dose (1 ea/ Sodium Chloride) 500 mls @ 250 mls/hr IV X1 PRN; Protocol PRN Reason: Rx to Dose Vancomycin HCl 1,250 mg/ (Sodium Chloride) 275 mls @ 167 mls/hr IV Q12H [facility] Last Infusion: 01/09/20 10:07 Dose: Infused Documented by: Ibuprofen (Motrin) 400 mg PO Q4H PRN PRN PRN Reason: Pain Score 1-10/Temp > 100.7 F Last Admin: 01/08/20 21:48 Dose: 400 mg Documented by: Levothyroxine Sodium (Synthroid) 137 mcg PO DAILY@0600 [facility] Last Admin: 01/09/20 05:34 Dose: 137 mcg Documented by: Lisinopril (Zestril) 10 mg PO DAILY [facility] Last Admin: 01/09/20 08:30 Dose: 10 mg Documented by: Magnesium Hydroxide (Milk Of Magnesia) 30 ml PO DAILY PRN PRN PRN Reason: Constipation Melatonin (Melatonin) 3 mg PO QHS PRN PRN PRN Reason: INSOMNIA Morphine Sulfate () 2 mg IV Q3H PRN PRN PRN Reason: Pain Score 6-10/10 Last Admin: 01/06/20 06:06 Dose: 2 mg Documented by: Nitroglycerin (Nitrostat) 0.4 mg SUBLINGUAL Q5M PRN PRN Reason: CARDIAC/CHEST PAIN Ondansetron HCl (Zofran) 4 mg IV Q8H PRN PRN PRN Reason: NAUSEA/VOMITING Oxycodone HCl (Oxyir) 5 mg PO Q4H PRN PRN PRN Reason: Pain Score 4-5/10 Prochlorperazine Edisylate (Compazine Iv) 5 mg IV Q4H PRN PRN PRN Reason: Breakthrough nausea/vomiting Psyllium Hydrophilic Mucilloid (Metamucil) 1 packet PO DAILY PRN PRN PRN Reason: Constipation Senna/Docusate Sodium (Senokot-S, Carol-Colace) 2 tablet PO BID PRN PRN PRN Reason: Constipation Sodium Chloride () 10 - 40 ml IV UD PRN PRN Reason: SALINE FLUSH Last Admin: 01/09/20 08:30 Dose: 10 ml Documented by: Throat Lozenges (Cepacol Sore Throat Lozenge) 1 lozenge MUCOUS MEM Q2H PRN PRN PRN Reason: SORE THROAT Addendum: Dr. Brady I personally examined the patient and reviewed the chart. I agree with the above. 69-year-old female presenting with a cat bite on her right hand. She had some increased redness and swelling that started streaking up and towards her right shoulder. She had a CT scan of her right upper extremity which did not show focal abscess. And she did test negative for MRSA PCR. Blood cultures and wound cultures have been negative. She was improving a little bit at least based on white count with just Unasyn, she was 15.1 on the and then on the she was 10.9. She was started on vancomycin after the because of increased redness. However this has since resolved and therefore with her swelling going down and her lack of fever and her significant improvement in her white count she will be discharged home on p.o. Augmentin. She will need to follow-up with her primary care doctor in 3 to 5 days. I did express to her that if she has worsening redness to come back into the hospital. She did express understanding the risks and benefits of going home and would like to go home. Inpatient E&M: [id number] Disch Hosp
[2020-01-09 12:00] VITALS: BP 168/93; PULSE 72; RESP 18; TEMP 36.5; O2SAT 98
[2020-01-09 12:30] VITALS: BP 168/93; PULSE 72; RESP 18; TEMP 36.5; O2SAT 98
== END 2020-01-09 12:40 | disposition home or self-care (01) | DRG 872 ==
LOC: ED 23:52 → PCU 01-06 01:06 → MS2 01-06 10:32 → MS3 01-07 17:18
PROVIDERS: Nurse Practitioner Family; Student in an Organized Health Care Education/Training Program; Admitting Provider Family Medicine; Emergency Provider Emergency Medicine; PCP Family Medicine; Visit Provider Family Medicine
DX: A41.9 Sepsis, unspecified organism (principal); Z68.41 Body mass index [BMI] 40.0-44.9, adult; L03.113 Cellulitis of right upper limb; S61.451A Open bite of right hand, initial encounter; E03.9 Hypothyroidism, unspecified; E66.01 Morbid (severe) obesity due to excess calories; I10 Essential (primary) hypertension; S61.551A Open bite of right wrist, initial encounter; W55.01XA Bitten by cat, initial encounter; N28.9 Disorder of kidney and ureter, unspecified; E87.6 Hypokalemia
CPT/HCPCS: 36415; 73130; 73201; 80048; 80202; 82565; 83036; 83605; 83735; 85025; 85027; 87040; 87070; 87205; 87640; 97802; 99251; 99284; J7030; J7040; J7050; Q9967; A4216; G0463; J0295; J2405

== ENCOUNTER 2021-02-12 13:29 | Emergency (ER) | payer MEDICARE, OTHER, SELFPAY ==
[2020-01-06 01:29] VITALS: BMI 43.6
[2021-02-12 13:31] VITALS: BP 114/64; PULSE 95; RESP 16; TEMP 36.8; O2SAT 97; BMI 36.6
--- NOTE | 2021-02-12 14:09 | RAD_ITS ---
STUDY: X-RAY - RIGHT HAND REASON FOR EXAM: Female, 70 years old. Index finger swelling. There is erythema in the distal finger. TECHNIQUE: 3 view(s) of the hand. COMPARISON: Comparison is made with prior study dated 01/05/2020. FINDINGS: Normal radiocarpal articulation. Normal distal radioulnar joint. Normal visualized carpal bones. Normal carpal articulations Normal carpometacarpal articulation of the thumb. Normal second through fifth carpometacarpal joints. Normal metacarpi. Normal metacarpophalangeal joint of the thumb. Normal interphalangeal joint of the thumb. Normal proximal and distal phalanges of the thumb. Normal metacarpophalangeal joints of the second through fifth fingers. There is mild articular joint space narrowing of the proximal and distal interphalangeal joints of the second through fifth fingers, but without erosive changes or periarticular soft tissue swelling. Old injury at the base of the proximal phalanx of the index finger. Diffuse swelling of the index finger worse overlying the distal phalanx. RAD/Hand Min 3 Views IMPRESSION: Diffuse swelling of the distal index finger. Electronically Signed: Alli Ceja MD at 15:13 EDT , Service support ,
--- NOTE | 2021-02-12 14:10 | ED.VIS.GEN ---
History of Present Illness Chief Complaint: Cellulitis Informant: Patient Narrative: 70-year-old female presenting with right index finger swelling. She states this has been ongoing since November. She describes a small superficial laceration over the distal right index finger. She states that this did open and close periodically. She did not have any sutures placed. 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 She states that 2 days ago she had chills for several hours and the knees went away. Today she feels tired. She denies any fever, chills today. Patient has significant history of sepsis secondary to cat bite 1 year ago which had resolved after a 5-day hospitalization. - Past Medical History (1) Sepsis Status: Chronic (2) Cat bite of hand Status: Chronic (3) HTN (hypertension) Status: Chronic (4) Hypothyroidism Status: Chronic (5) History of obstructive sleep apnea Status: Chronic (6) Morbid obesity Status: Chronic Past Medical History - Allergies and Home Meds Allergies/Adverse Reactions: Allergies No Known Allergies Allergy (Verified 02/12/21 13:33) Primary Care Physician: Mateo Avalos MD [Primary Care Provider] - Prior records reviewed: Yes Past Medical History: - - Reviewed in problem list Surgical History: noncontributory, - - Uvula resection, right lower extremity surgery status post trauma in her youth, right knee arthroscopic surgery. Smoking Status: Never smoker - Family History Maternal Family History: Reports: Cancer - Father with history of colorectal cancer. Paternal Family History: Reports: Dementia, Hypertension Review of Systems General: Reports: Chills, Malaise. Denies: Fever Eyes: Reports: Visual changes - left ENT: Denies: Rhinorrhea, Sore throat Cardiovascular: Denies: Chest pain, Palpitations Respiratory: Denies: Dyspnea, Cough, Dyspnea on exertion Gastrointestinal: Reports: Abdominal pain Physical Exam Vital Signs/Narrative: Vital Signs Temp Pulse Resp BP Pulse Ox 02/12/21 13:31 98.2 F 95 16 114/64 97 Inital Vital Signs reviewed: Yes General: Obese, No Acute Distress Head: Normocephalic, Atraumatic Eyes: Perrl, EOMI ENT: Moist mucous membranes, No rhinorrhea Cardiovascular: Regular rate, Regular rhythm Respiratory: No distress, CTA bilaterally Extremities: Tenderness - Mild tenderness to the distal medial aspect of the right index finger., - - Dendritic streaking up the right forearm Skin: - - Fluctuant mass at the medial aspect of the right index finger. Neurological: Alert, Oriented x3 Psychological: Normal affect, Normal Mood Diagnostic/Tx/Re-eval Clinical Impression(s) from Imaging Studies Hand X-Ray 02/12/21 14:09 IMPRESSION: Diffuse swelling of the distal index finger. Electronically Signed: Alli Ceja MD at 15:13 EDT , Service support , Laboratory Data 02/12/21 02/12/21 14:42 14:42 WBC 12.6 H RBC 4.51 Hgb 13.4 Hct 41.0 MCV 90.9 MCH 29.7 MCHC 32.7 RDW Std Deviation 40.6 RDW Coeff of Gisela 12.2 Plt Count 183 MPV 9.6 Immature Gran % (Auto) 0.500 Neut % (Auto) 87.8 H Lymph % (Auto) 5.0 L Elliott % (Auto) 6.3 Eos % (Auto) 0.2 Baso % (Auto) 0.2 Absolute Neuts (auto) 11.0 H Absolute Lymphs (auto) 0.63 L Nucleated RBC % 0 Sodium 137 Potassium 3.3 L Chloride 103 Carbon Dioxide 26.0 Anion Gap 8 BUN 24 H Creatinine 0.93 Estim Creat Clear Calc 39.85 Est GFR (MDRD) Af Amer 76 Est GFR (MDRD) Non-Af 63 BUN/Creatinine Ratio 25.7 H Glucose 207 H Calcium 9.1 - Medical Decision Making 70-year-old female presenting with right index finger swelling and some lymphangitic streaking up the right forearm. She states she feels otherwise well other than tired. She believes she just walked too much today. 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 Patient had blood work which shows a slight leukocytosis at 12.6. Patient's GFR is normal. Her potassium is slightly low and she is counseled to eat potassium rich diet. Patient's right hand was cleaned with with chlorhexidine. Sterile precautions were utilized. Patient had a digital nerve block of the right index finger using lidocaine 1% 5 cc. Good anesthesia was achieved. 11 blade scalpel was utilized to make a linear incision into the approximately 1.5 cm fluctuant mass on her medial finger. There was some small bleeding but there was no purulent discharge from this. I did attempt to deloculate and there was no purulent discharge after this. Patient's wound was irrigated with 200 cc of sterile saline. Dressing was applied by nursing staff. Patient I do not believe she needs this replaced in the ED. Patient will be started on Bactrim and Keflex in the emergency room. She is counseled to monitor for worsening infection and is given wound care instructions. Patient given return precautions. Impression: 1. Right index finger cellulitis ED Disposition - Plan for ED Patient: Disposition: Home or Assisted Living Instructions: Cellulitis Prescriptions: Smz/Tmp Ds [Bactrim Ds] 1 tablet PO BID #14 tab Transmission Status: Pending to [id number] Cephalexin [Keflex] 500 mg PO Q6 #40 capsule Transmission Status: Pending to [id number] Referrals: Mateo Avalos MD [Primary Care Provider] -
[2021-02-12 14:47] LABS: Absolute Lymphocyte Count 0.63 X10^3/uL (0.83-4.51); Basophil# 0.03 X10^3/uL; Basophil% 0.2 % (0-1); Eosinophil# 0.03 X10^3/uL; Eosinophils% 0.2 % (0-5); Hemoglobin 13.4 g/dL (12.0-15.0); Lymphocyte # 0.63 X10^3/ul (0.83-4.51); Mean Corp Hgb Conc 32.7 g/dL (32-36); Mean Corpuscular Hgb 29.7 pg (27.0-32.0); Mean Corpuscular Volume 90.9 fL (81-99); Mean Platelet Vol. 9.6 fl (6.2-12.0); Monocyte# 0.79 X10^3/uL; Monocyte% 6.3 % (0-10); NRBC Flagged by Analyzer 0 % (0-5); Neutrophil # 11.04 X10^3/uL (2.7-7.7); Neutrophil % 87.8 % (47-70); Platelet Count 183 K/mm3 (150-450); RBC Distribution Width CV 12.2 % (11.6-14.6); RBC Distribution Width SD 40.6 fl (35.1-43.9); Red Blood Count 4.51 M/mm3 (4.2-5.4); White Blood Count 12.6 K/mm3 (4.4-11.0)
[2021-02-12 15:00] LABS: Anion Gap 8 (5-15); BUN 24 mg/dL (7-18); BUN/Creat Ratio 25.7 RATIO (10-20); Calcium,Total 9.1 mg/dL (8.5-10.1); Chloride 103 mmol/L (98-107); Creatinine, Serum 0.93 mg/dL (0.55-1.02); EST Glomerular Filtration Rate 63 mL/min (>60); Est Glom Filt Rate - Afr Amer 76 mL/min (>60); Estimated Creatinine Clearance 39.85 ml/min; Glucose 207 mg/dL (74-106); Potassium 3.3 mmol/L (3.5-5.1); Sodium Level 137 mmol/L (136-145)
[2021-02-12] MEDS: Smz/Tmp Ds Tablet 1 TABLET PO (16:22)
[2021-02-12] MEDS: Cephalexin 250 MG Capsule 500 MG PO (16:22)
[2021-02-12 16:38] VITALS: BP 123/60
== END 2021-02-12 16:39 | disposition home or self-care (01) ==
PROVIDERS: Emergency Provider Student in an Organized Health Care Education/Training Program; PCP Family Medicine
DX: L03.011 Cellulitis of right finger (principal); E03.9 Hypothyroidism, unspecified; E66.01 Morbid (severe) obesity due to excess calories; I10 Essential (primary) hypertension; G47.33 Obstructive sleep apnea (adult) (pediatric); Z82.49 Family history of ischemic heart disease and other diseases of the circulatory system
CPT/HCPCS: 26010; 10060; 73130; 80048; 85025; 99283; A4216

== ENCOUNTER 2023-08-05 16:53 | Emergency (ER) | payer MEDICARE, OTHER, SELFPAY ==
[2023-08-05 16:54] VITALS: BP 184/63; PULSE 85; RESP 16; TEMP 36.4; O2SAT 98; BMI 40.4
--- NOTE | 2023-08-05 18:37 | EDS_ITS ---
HPI History of Present Illness Chief Complaint: Lower Extremity Injury Detail of Chief Complaint: Lower extremity edema Informant: patient Onset/Context/Timing Onset: Days Context: Gradual Onset Narrative Narrative: Patient presents secondary to bilateral lower extremity edema. She had right hip replacement 6 weeks ago. For about 3 weeks patient had home health come to her home and work on exercises with her. They have not been out for the past 3 weeks but did call her today to check on her. When she told them that her legs have been swollen and slightly red they encouraged her to come to the emergency room to be evaluated for blood clot. She does report shortness of breath, but states she has chronic shortness of breath that is not any different than baseline. She denies chest pain. [facility] Medical History High cholesterol HTN (hypertension) Hypothyroid Home Medications hydrochlorothiazide 25 mg tablet 25 mg PO DAILY blood pressure 01/06/20 [History Last Taken 01/04/20] levothyroxine 137 mcg tablet 137 mcg PO DAILY thyroid 01/06/20 [History Last Taken 01/05/20] lisinopril 10 mg tablet 10 mg PO DAILY blood pressure 01/06/20 [History Last Taken 01/04/20] amoxicillin 875 mg-potassium clavulanate 125 mg tablet 875 mg (0.875 x 875-125 mg) PO Q12H #14 tabs 01/09/20 [Rx Last Taken Unknown] cephalexin 500 mg capsule 500 mg PO Q6 #40 CAPSULES 02/12/21 [Rx Last Taken Unknown] sulfamethoxazole 800 mg-trimethoprim 160 mg tablet 1 tablet PO BID #14 TABLETS 02/12/21 [Rx Last Taken Unknown] Allergy/AdvReac Type Severity Reaction Status Date / Time No Known Allergies Allergy Verified 08/05/23 16:54 Surgical History H/O thyroidectomy History of right hip replacement Social History Smoking Status: Never smoker ROS ROS ED Constitutional Constitutional ED: Denies chills or fever(s) Eyes Eyes: Denies discharge from eye(s) ENT ENT ED: Denies discharge from eye(s), rhinorrhea or sore throat Cardiovascular Cardiovascular: Denies chest pain Respiratory/Chest Respiratory/Chest: Reports dyspnea; Denies cough Gastrointestinal Gastrointestinal: Denies abdominal pain, nausea or vomiting Genitourinary Genitourinary ED: Denies dysuria Musculoskeletal Musculoskeletal: Reports extremity pain; Denies back pain Integumentary Denies Abrasions or rash Neurologic Neurologic: Denies headache(s) or weakness Psychiatric Psychiatric: Denies anxiety or depression Allergic/Immunologic Allergic/Immunologic ED: Denies lip swelling or urticaria EXAM Physical Exam Const Vital Signs: 08/05/23 16:54 Temperature 97.5 F L Temperature Source Temporal Pulse Rate 85 Respiratory Rate 16 Blood Pressure 184/63 H Blood Pressure Mean 103 Pulse Ox 98 Positive well nourished and well developed General Appearance ED: well developed HEENT Reports normocephalic and head/scalp atraumatic Eyes PERRL and EOMs intact bilaterally Neck supple Chest Wall inspection of chest normal and palpation of chest normal Resp normal respiratory effort and clear to auscultation bilaterally Cardio regular rate and regular rhythm GI normal to inspection, nondistended, normoactive bowel sounds Palpation: soft Extremity Extremity Narrative: 3+ bilateral lower extremity edema. Minimal erythema noted to her feet bilaterally. This does not appear consistent with a cellulitis. Neuro oriented x3 and no sensory deficits noted Sensorium / Orientation: alert Psych mental status grossly normal MDM MDM MDM Narrative Medical decision making narrative: Venous ultrasound of bilateral lower extremities obtained to evaluate for blood clot. Radiography Diagnostic Testing: Clinical Impression(s) from Imaging Studies Venous Duplex 08/05/23 18:40 IMPRESSION: Normal venous Doppler ultrasound of the bilateral lower extremities. Electronically Signed: Maricarmen Griffin MD at 19:45 EDT , Treatment and Re-Evaluation :: His ultrasound of the lower extremities reveals no evidence of DVT. Jerry wrap's were applied to her lower extremities to help with light compression. We discussed the importance of appropriate leg elevation. Discharge Plan Triage Chief Complaint: Lower Extremity Injury ED Provider: Shayla Jarvis Dx/Rx/DC Orders Clinical Impression: Bilateral edema of lower extremity Instructions: ED Peripheral Edema, Bilateral Prescriptions: No Action levothyroxine 137 MCG tablet 137 mcg PO DAILY lisinopril 10 MG tablet 10 mg PO DAILY hydrochlorothiazide 25 MG tablet 25 mg PO DAILY amoxicillin-pot clavulanate 875 MG tablet 875 mg PO Q12H Qty: 14 0RF sulfamethoxazole-trimethoprim 1 TABLET tablet 1 tablet PO BID Qty: 14 0RF cephalexin 500 MG capsule 500 mg PO Q6 Qty: 40 0RF Primary Care Provider: Mateo Avalos Referrals: Mateo Avalos MD [Primary Care Provider] - 1 Week if not improving Disposition Disposition: Home, Self Care
--- NOTE | 2023-08-05 18:40 | US_ITS ---
STUDY: VENOUS DOPPLER ULTRASOUND - BILATERAL LOWER EXTREMITIES REASON FOR EXAM: Female, 73 years old. BILATERAL LOWER LEG SWELLING AND FEET NO PAIN TECHNIQUE: Ultrasound evaluation of the deep vein system to include keyes-scale imaging and compression was performed. Keyes-scale imaging and Doppler sonographic evaluation, including duplex spectral analysis and qualitative color flow sonography, was performed. COMPARISON: None. FINDINGS: RIGHT LEG Common Femoral Vein: Normal compression, spontaneity and augmentation. Normal color Doppler. Common Femoral Vein/Greater Saphenous Junction: Normal compression. Normal color Doppler. Femoral Proximal: Normal compression. Normal color Doppler. Femoral Middle: Normal compression, spontaneity and augmentation. Normal color Doppler. Femoral Distal: Normal compression . Normal color Doppler. Popliteal Vein: Normal compression, spontaneity and augmentation. Normal color Doppler. Posterior Tibial Vein: Normal compression. Normal color Doppler. Peroneal Vein: Normal compression. Normal color Doppler. LEFT LEG Common Femoral Vein: Normal compression, spontaneity and augmentation. Normal color Doppler. Common Femoral Vein/Greater Saphenous Junction: Normal compression. Normal color Doppler. Femoral Proximal: Normal compression. Normal color Doppler. Femoral Middle: Normal compression, spontaneity and augmentation. Normal color Doppler. Femoral Distal: Normal compression. Normal color Doppler. Popliteal Vein: Normal compression, spontaneity and augmentation. Normal color Doppler. Posterior Tibial Vein: Normal compression. Normal color Doppler. Peroneal Vein: Normal compression Normal color Doppler. There is no demonstrated deep venous thrombosis. US/Venous Duplex Imag/Cedrick Extrem IMPRESSION: Normal venous Doppler ultrasound of the bilateral lower extremities. Electronically Signed: Maricarmen Griffin MD at 19:45 EDT ,
== END 2023-08-05 20:19 | disposition home or self-care (01) ==
PROVIDERS: Emergency Provider Emergency Medicine; PCP Family Medicine; Visit Provider Emergency Medicine
DX: R60.0 Localized edema (principal); E78.00 Pure hypercholesterolemia, unspecified; I10 Essential (primary) hypertension; E03.9 Hypothyroidism, unspecified; Z79.899 Other long term (current) drug therapy; Z96.641 Presence of right artificial hip joint
CPT/HCPCS: 93970; 99282

== ENCOUNTER 2024-08-13 10:30 | Outpatient (RCR) | payer MEDICARE, OTHER, SELFPAY ==
[2024-08-06 10:00] VITALS: BP 128/70; PULSE 66; RESP 18; TEMP 36.4; BMI 35.5
--- NOTE | 2024-08-06 12:35 | PCM.WC.HP ---
History of Present Illness Date of Service: 08/06/24 Chief Complaint: Nonhealing ulcers of groin area History of Wound: Mónica is a pleasant 74 yo woman that presents to the wound healing center for evaluation and treatment recommendations for nonhealing ulcers that are in her bilateral groin folds that have been present and waxed and waned in severity for 12 years. She reports that she has also had urinary incontinence that started around that time as well and she has been wearing disposable incontinence pads daily since then. She has never been on any medication for urinary incontinence and has a urology appointment scheduled for the end of this month but does not know who she is seeing. She reports that the areas bleed and drain pratt fluid intermittently. At some points there have been 5 spots of blood and currently there is about 2. She is using Zinc oxide to the areas a few times/day. She uses rubbing alcohol on her areas after each restroom visit. She has been advised to use topical antibiotic ointment by her PCP but it roche. She is otherwise uncomplicated and does not have history of diabetes. She denies fever, chills, erythema, increased drainage and odor. She has had some cognitive changes over the last 6 months post her hip replacement surgery which may be due to dementia or anesthesia reaction. Her brother Marshall accompanies her today and helps somewhat with the history. [facility] Medical History Hypothyroid High cholesterol HTN (hypertension) Home Medications ?Medication ?Instructions ?Recorded ?Last Taken ?Type hydrochlorothiazide 25 mg tablet 25 mg PO DAILY blood pressure 01/06/20 01/04/20 History levothyroxine 137 mcg tablet 150 mcg PO DAILY thyroid 01/06/20 01/05/20 History lisinopril 10 mg tablet 40 mg PO DAILY blood pressure 01/06/20 01/04/20 History amoxicillin 875 mg-potassium 875 mg PO Q12H #14 tabs 01/09/20 Unknown Rx clavulanate 125 mg tablet cephalexin 500 mg capsule 500 mg PO Q6 #40 CAPSULES 02/12/21 Unknown Rx sulfamethoxazole 800 1 tablet PO BID #14 TABLETS 02/12/21 Unknown Rx mg-trimethoprim 160 mg tablet acetaminophen 500 mg tablet (Pain 1,000 mg PO Q6H PRN pain 08/06/24 Unknown History Reliever (acetaminophen)) amlodipine 10 mg tablet (Norvasc) 10 mg PO DAILY 08/06/24 Unknown History furosemide 40 mg tablet (Lasix) 40 mg PO DAILY 08/06/24 Unknown History polyethylene glycol 1 ea miscellaneous DAILY 08/06/24 Unknown History pravastatin 10 mg tablet 10 mg PO QHS 08/06/24 Unknown History silver sulfadiazine 1 % topical 1 applic topical BID #400 grams 08/06/24 Unknown Rx cream (SSD) Allergy/AdvReac Type Severity Reaction Status Date / Time No Known Allergies Allergy Verified 08/05/23 16:54 Family History no significant family his no significant family history Surgical History H/O thyroidectomy History of right hip replacement Social History Smoking Status: Never smoker ROS Constitutional Constitutional: Denies chills, fatigue or fever(s) Eyes Eyes: Denies blurry vision, change in vision or loss of vision ENT HEENT: Denies dysphagia, hearing loss or sore throat Cardiovascular Cardiovascular: Denies chest pain, edema or palpitations Respiratory/Chest Respiratory/Chest: Denies dry cough, dyspnea, dyspnea on exertion, productive cough or wheezing Gastrointestinal Gastrointestinal: Denies diarrhea, nausea or vomiting Genitourinary Genitourinary: Denies dysuria or polyuria Musculoskeletal Musculoskeletal: Denies arthralgias, joint stiffness or muscle weakness Integumentary Integumentary: Reports erythema and wounds Neurologic Neurologic: Denies dizziness, memory loss or weakness Psychiatric Psychiatric: Denies homicidal ideation or suicidal ideation Endocrine Endocrinology: Denies polydipsia, polyphagia or polyuria Hematologic/Lymphatic Hematologic/Lymphatic: Denies easy bleeding or easy bruising Allergic/Immunologic Allergic/Immunologic: Denies throat swelling, tongue swelling or urticaria Vital Signs Vital Signs Vital Signs: 08/06/24 10:00 Temperature 97.5 F L Temperature Source Temporal Pulse Rate 66 Respiratory Rate 18 Blood Pressure 128/70 H Blood Pressure Mean 89 Blood Pressure Source Monitor Blood Pressure Position Semi-Fowlers Blood Pressure Location Left Arm Weight Weight: 79.832 kg Body Mass Index (BMI) 35.5 Physical Exam Const alert, oriented x3 and no apparent distress General Appearance: cooperative and comfortable Nutritional Appearance: obese HEENT normocephalic and head/scalp atraumatic Resp normal respiratory effort Effort and Inspection: able to speak in complete sentences Cardio regular rate and regular rhythm Skin Skin Narrative: hypertrophic thickened skin of creases of groin bilaterally with some open areas that appear to be cystic consistent with hidradenitis, minimal purulent drainage and no slough present Wounds: wounds noted Wound Narrative: as in clinical panel Psych mental status grossly normal, thought process normal, cooperative and affect normal Debridement Note Debridement Note Wound debrided: right groin Laterality: Right No debridement was completed: No debridement was completed today Post-Debridement Measurements and Additional Note: Post-Debridement Measurements/Treatment - Nurse 1 - General Ulcer Assessment Start: 08/06/24 09:37 Freq: Status: Active Protocol: JOSE ELIAS Activity Type Activity Date Activity User E-sign Co-sign Detail Recorded Client Recorded Date Recorded By Document 08/06/24 10:00 RB [id number] 08/06/24 10:07 RB 08/06/24 10:00 - Today's Visit Information Type of service Initial Visit Arrival Mode Ambulatory Transfer Assistance None Patient Identification Verified (Name & Yes ) Height and Weight Height 4 ft 11 in Weight 79.832 kg Weight in Pounds 176.0 lbs Body Mass Index (BMI) 35.5 BMI Classification Obese BSA - Amanda 1.75 Vital Signs Temperature (97.8 F-99.1 F) 97.5 F L Temperature Source Temporal Pulse Rate (60-100) 66 Pulse Location Monitor Respiratory Rate (12-18) 18 Respiratory rate source Observation Blood Pressure (90/60-120/80) 128/70 H Blood Pressure Mean 89 Source Monitor Position Semi-Fowlers Blood Pressure Location Left Arm History Since Last Visit- (Skip if this is Patient's initial visit) Have you changed medications since your No last visit? Any new allergies or adverse reactions No Had a fall/change in ADL's that may No increase risk of falls Signs or symptoms of abuse and/or No neglect since last visit Have you been in the hospital since your No last visit? Has dressing in place as prescribed Yes Has compression in place as prescribed No Has offloadiing in place as prescribed No Experienced any changes in pain level or No management Pain Scale: 0-10 Numeric Is Patient Pain Free? 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 No Able to Read Yes Able to Write Yes Communication Tools None Caregiver Communication Skills No Impairment Impairment Right Hearing Abillity Normal Left Hearing Abillity Normal Visual Assistive Devices Glasses Teaching Assessment Preferences Verbal,Written, Demonstration Barriers to Learning Knowledge Deficit Readiness To Learn Fair Willingness to Engage in Self Management Med Activies Readiness to Engage in Self Management Med Activities Anxiety Level Calm Cooperation Cooperative Perception Coherent Interest in Health Problem Asks Questions Education Importance Acknowledges Need Does Patient Smoke tobacco or other No substances Smoking Status Never smoker Is Patient Diabetic No Functional Assessment Recent Decline in Ability to Perform Bathing Assistive Device With Patient No Culture/Congregational/Cutter Helper Cultural/Congregational Needs that may affect No Treatment Plan Would you allow our [facility] horse show judge to No meet you for the purpose of spiritual/ emotional support? Cutter Helper to contact place of yarsanism No Teaching: Wound Center *Welcome to the Wound Center -Person Taught Patient,Family -Teaching Method Discussion -Response to teaching Verbalize Understanding WC - Nurse 1 - General Ulcer Measurement Start: 08/06/24 09:37 Freq: Status: Active Protocol: Activity Type Activity Date Activity User E-sign Co-sign Detail Recorded Client Recorded Date Recorded By Document 08/06/24 10:00 TANESHA [id number] 08/06/24 10:07 TANESHA 08/06/24 10:00 Wound Center Nurse 1 2. R groin -Combined with other wound No -Current Size (cm) - Length 4 -Current Size (cm) - Width 1 -Current Size (cm) - Depth 0.1 -Total Square Cm 4 -Photo Taken Yes -Tunneling No -Undermining/Tunneling No -Circular Undermining No -Exudate Amt Medium -Exudate Type Serosanguineous -Wound Margin Distinct, Outline Attached -Granulation Amt Medium (34-66%) -Granulation Quality [place] -Slough/Fibrin Yes -Necrosis Amt Medium (34-66%) -Necrotic Tissue Type Adherent Slough -Structure Exposed N/A -Texture (Carol-wound Skin Appearance) Assessed, Excoriation -Moisture (Carol-wound Skin Appearance) Assessed -Color (Carol-wound Skin Appearance) Erythema -Temperature (Carol-wound Skin No Abnormality Appearance) (Pt Warm) -Tenderness on Palpation (Carol-wound No Skin Appearance) -Ulcer Cleansing Wound Cleanser -Foul Odor after Cleansing No -Anesthetic Used 5% Lidocaine Gel 1. L groin -Combined with other wound No -Current Size (cm) - Length 0.1 -Current Size (cm) - Width 0.1 -Current Size (cm) - Depth 0.1 -Total Square Cm 0.01 -Photo Taken Yes -Tunneling No -Undermining/Tunneling No -Circular Undermining No -Exudate Amt Medium -Exudate Type Serosanguineous -Wound Margin Distinct, Outline Attached -Granulation Amt Medium (34-66%) -Granulation Quality [place] -Slough/Fibrin Yes -Necrosis Amt Medium (34-66%) -Necrotic Tissue Type Adherent Slough -Structure Exposed N/A -Texture (Carol-wound Skin Appearance) Excoriation, Scarring -Moisture (Carol-wound Skin Appearance) Assessed -Color (Carol-wound Skin Appearance) Erythema -Temperature (Carol-wound Skin No Abnormality Appearance) (Pt Warm) -Tenderness on Palpation (Carol-wound No Skin Appearance) -Ulcer Cleansing Wound Cleanser -Foul Odor after Cleansing No -Anesthetic Used 5% Lidocaine Gel -Wound Comment(s) darkened skin on lower abd fold with skin tags WC - Nurse 2 - General Ulcer CM Notes Start: 08/06/24 09:37 Freq: Status: Active Protocol: Activity Type Activity Date Activity User E-sign Co-sign Detail Recorded Client Recorded Date Recorded By Document 08/06/24 10:26 [id number] 08/06/24 10:44 08/06/24 10:26 Wound Center Nurse 2 2. R groin -Time 10:26 -Correct Patient Yes -Correct Side, Site, Position Yes -Wound Comment(s) Rash- irritated skin Hydranitis 1. L groin -Time 10:27 -Correct Patient Yes -Correct Side, Site, Position Yes -Wound Comment(s) rash - irritated skin hydranitis Pain Scale: 0-10 Numeric Is Patient Pain Free? Yes Additional Wound Wound debrided: left groin Laterality: Left Operative Diagnosis: no debridement completed Assessment/Plan Assessment/Plan (1) Hypothyroidism: CODE(S): E03.9 - Hypothyroidism, unspecified QUALIFIERS: Hypothyroidism type: unspecified Qualified Code(s): E03.9 - (2) HTN (hypertension): CODE(S): I10 - Essential (primary) hypertension QUALIFIERS: Hypertension type: essential hypertension Qualified Code(s): I10 - Essential (primary) hypertension (3) Obesity: CODE(S): E66.9 - Obesity, unspecified QUALIFIERS: Obesity type: due to excess calories Serious obesity comorbidity presence: without serious comorbidity Body mass index: BMI 35.0-35.9 Obesity classification: adult class 2 (BMI 35 - 39.9) Qualified Code(s): E66.812 - Obesity, class 2; E66.09 - Other obesity due to excess calories; Z68.35 - Body mass index [BMI] 35.0-35.9, adult (4) Hidradenitis suppurativa: CODE(S): L73.2 - Hidradenitis suppurativa (5) Ulcer of left groin with fat layer exposed: CODE(S): L98.492 - Non-pressure chronic ulcer of skin of other sites with fat layer exposed (6) Skin ulcer of right groin with fat layer exposed: CODE(S): L98.492 - Non-pressure chronic ulcer of skin of other sites with fat layer exposed PLAN: Plan Debridement performed today in clinic as annotated above. At home wound-care instructions: The patient will wash with antibacterial soap and water and then will apply silvadene to the open areas of her groin twice daily. Encouraged her to use baby wipes instead of rubbing alcohol to clean skin after using bathroom. Keep dressing clean and dry. Discussed the importance of treating the incontinence and to follow up as scheduled with urology regarding work up and options for treatment. Also discussed trying ABD pads in her underwear instead of incontinence pads due to the irritation that plastic may cause to her skin or trying reusable, washable cotton underpads. Educated patient on the chronicity of hidradenitis and encouraged continued weight loss. Off-loading: The patient was instructed to avoid pressure and friction on the affected areas. Reposition every 2 hours at minimum. Avoid prolonged standing and/or dangling of legs. When seated, feet should be elevated at chest level. Frequent ambulation is encouraged. Diet: Patient encouraged to increase protein intake while taking caution to avoid high carbohydrate and/or sugar intake. Labs/cultures/imaging: Follow-up: Return in 1 week for wound care follow up. Return sooner or report to the emergency room should symptoms worsen, or new symptoms arise. Note: [employer] speech recognition manager oracle software was used to create portions of this document. Sound-alike and misspelled words, as well as other manager oracle errors may be contained in the documentation.
--- NOTE | 2024-08-09 11:20 | WC ---
PHOTO 08/06/24 LEFT GROIN
--- NOTE | 2024-08-09 11:22 | WC ---
PHOTO 08/06/24 RIGHT NICK
[2024-08-13 10:27] VITALS: BP 115/68; PULSE 77; RESP 18; TEMP 36.6; BMI 35.5
--- NOTE | 2024-08-13 12:52 | PCM.WC.PN ---
History of Present Illness Date of Service: 08/13/24 Chief Complaint: Nonhealing ulcers of groin area History of Wound: Mónica is a pleasant 74 yo woman that presents to the wound healing center for evaluation and treatment recommendations for nonhealing ulcers that are in her bilateral groin folds that have been present and waxed and waned in severity for 12 years. She reports that she has also had urinary incontinence that started around that time as well and she has been wearing disposable incontinence pads daily since then. She has never been on any medication for urinary incontinence and has a urology appointment scheduled for the end of this month but does not know who she is seeing. She reports that the areas bleed and drain pratt fluid intermittently. At some points there have been 5 spots of blood and currently there is about 2. She is using Zinc oxide to the areas a few times/day. She uses rubbing alcohol on her areas after each restroom visit. She has been advised to use topical antibiotic ointment by her PCP but it roche. She is otherwise uncomplicated and does not have history of diabetes. She denies fever, chills, erythema, increased drainage and odor. She has had some cognitive changes over the last 6 months post her hip replacement surgery which may be due to dementia or anesthesia reaction. Her brother Marshall accompanies her today and helps somewhat with the history. Subjective Subjective Mónica returns today for evaluation and treatment of ulcers of her groin area. She has been tolerating treatment with silvadene and has been using baby wipes for cleansing after using the restroom. She denies increased drainage, bleeding, pain. She has appointment with urology on 08/25/24. Objective Data Objective Data Vital Signs: Vital Signs Temp Pulse Resp BP O2 Del Method 97.8 F 77 18 115/68 Room Air 08/13/24 10:27 08/13/24 10:27 08/13/24 10:27 08/13/24 10:27 08/13/24 10:27 Oxygen Delivery Method Room Air Weight: 79.832 kg Body Mass Index (BMI) 35.5 Physical Exam Const alert, oriented x3 and no apparent distress General Appearance: cooperative and comfortable Nutritional Appearance: obese HEENT normocephalic and head/scalp atraumatic Resp normal respiratory effort Effort and Inspection: able to speak in complete sentences Cardio regular rate and regular rhythm Skin Skin Narrative: hypertrophic thickened skin of creases of groin bilaterally with some open areas that appear to be cystic consistent with hidradenitis, minimal purulent drainage and no slough present Wounds: wounds noted Wound Narrative: as in clinical panel Psych mental status grossly normal, thought process normal, cooperative and affect normal Debridement Note Debridement Note Wound debrided: right groin No debridement was completed: No debridement was completed today Post-Debridement Measurements and Additional Note: Post-Debridement Measurements/Treatment WC - Nurse 1 - General Ulcer Assessment Start: 08/06/24 09:37 Freq: Status: Active Protocol: JOSE ELIAS Activity Type Activity Date Activity User E-sign Co-sign Detail Recorded Client Recorded Date Recorded By Document 08/06/24 10:00 RB [id number] 08/06/24 10:07 RB Document 08/13/24 10:27 DS [id number] 08/13/24 10:28 DS 08/06/24 08/13/24 10:00 10:27 - Today's Visit Information Type of service Initial Visit 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 ) Arrival Mode Ambulatory Ambulatory,Cane Transfer Assistance None Patient Identification Verified (Name & Yes Yes ) Patient Requires Transmission-Based No Precautions Safety Precautions Fall Prevention Height and Weight Height 4 ft 11 in Weight 79.832 kg Weight in Pounds 176.0 lbs Body Mass Index (BMI) 35.5 35.5 BMI Classification Obese Obese BSA - Amanda 1.75 Vital Signs Temperature (97.8 F-99.1 F) 97.5 F L 97.8 F Temperature Source Temporal Temporal Pulse Rate (60-100) 66 77 Pulse Location Monitor Monitor Respiratory Rate (12-18) 18 18 Respiratory rate source Observation Observation Oxygen Delivery Method Room Air Blood Pressure (90/60-120/80) 128/70 H 115/68 Blood Pressure Mean (mm Hg) 89 83 Source Monitor Monitor Position Semi-Fowlers Sitting Blood Pressure Location Left Arm Left Arm History Since Last Visit- (Skip if this is Patient's initial visit) Have you changed medications since your No No last visit? Any new allergies or adverse reactions No No Had a fall/change in ADL's that may No No increase risk of falls Signs or symptoms of abuse and/or No No neglect since last visit Have you been in the hospital since your No No last visit? Has dressing in place as prescribed Yes Yes Has compression in place as prescribed No N/A Has offloadiing in place as prescribed No N/A Experienced any changes in pain level or No No management Left Footwear Regular Shoe Right Footwear Regular Shoe Pain Scale: 0-10 Numeric Is Patient Pain Free? Yes Yes Communication Assessment Preferred language Scottish Hand Tool Lapper Required No Able to Read Yes Able to Write Yes Communication Tools None Caregiver Communication Skills No Impairment Impairment Right Hearing Abillity Normal Left Hearing Abillity Normal Visual Assistive Devices Glasses Teaching Assessment Preferences Verbal,Written, Demonstration Barriers to Learning Knowledge Deficit Readiness To Learn Fair Willingness to Engage in Self Management Med Activies Readiness to Engage in Self Management Med Activities Anxiety Level Calm Cooperation Cooperative Perception Coherent Interest in Health Problem Asks Questions Education Importance Acknowledges Need Does Patient Smoke tobacco or other No substances Smoking Status Never smoker Is Patient Diabetic No Functional Assessment Recent Decline in Ability to Perform Bathing Assistive Device With Patient No Culture/Anabaptist/Light Armored Reconnaissance Officer Cultural/Anabaptist Needs that may affect No Treatment Plan Would you allow our hospital supervisor in charge to No meet you for the purpose of spiritual/ emotional support? Light Armored Reconnaissance Officer to contact place of scientology No Teaching: Wound Center *Welcome to the Wound Center -Person Taught Patient,Family -Teaching Method Discussion -Response to teaching Verbalize Understanding WC - Nurse 1 - General Ulcer Measurement Start: 08/06/24 09:37 Freq: Status: Active Protocol: Activity Type Activity Date Activity User E-sign Co-sign Detail Recorded Client Recorded Date Recorded By Document 08/06/24 10:00 RB [id number] 08/06/24 10:07 RB Document 08/13/24 10:29 DS [id number] 08/13/24 10:43 DS 08/06/24 08/13/24 10:00 10:29 Wound Center Nurse 1 2. R groin -Combined with other wound No -Current Size (cm) - Length 4 0.1 -Current Size (cm) - Width 1 0.1 -Current Size (cm) - Depth 0.1 0.1 -Total Square Cm 4 0.01 -Photo Taken Yes -Tunneling No -Undermining/Tunneling No -Circular Undermining No -Exudate Amt Medium -Exudate Type Serosanguineous -Wound Margin Distinct, Outline Attached -Granulation Amt Medium (34-66%) -Granulation Quality [place] -Slough/Fibrin Yes -Necrosis Amt Medium (34-66%) -Necrotic Tissue Type Adherent Slough -Structure Exposed N/A -Texture (Carol-wound Skin Appearance) Assessed, Assessed Excoriation -Moisture (Carol-wound Skin Appearance) Assessed Assessed -Color (Carol-wound Skin Appearance) Erythema Assessed -Temperature (Carol-wound Skin No Abnormality No Abnormality Appearance) (Pt Warm) (Pt Warm) -Tenderness on Palpation (Carol-wound No No Skin Appearance) -Ulcer Cleansing Wound Cleanser Soap and Water -Foul Odor after Cleansing No -Anesthetic Used 5% Lidocaine 5% Lidocaine Gel Gel 1. L groin -Combined with other wound No -Current Size (cm) - Length 0.1 0.1 -Current Size (cm) - Width 0.1 0.1 -Current Size (cm) - Depth 0.1 0.1 -Total Square Cm 0.01 0.01 -Photo Taken Yes -Tunneling No -Undermining/Tunneling No -Circular Undermining No -Exudate Amt Medium -Exudate Type Serosanguineous -Wound Margin Distinct, Outline Attached -Granulation Amt Medium (34-66%) -Granulation Quality [place] -Slough/Fibrin Yes -Necrosis Amt Medium (34-66%) -Necrotic Tissue Type Adherent Slough -Structure Exposed N/A -Texture (Carol-wound Skin Appearance) Excoriation, Assessed Scarring -Moisture (Carol-wound Skin Appearance) Assessed Assessed -Color (Carol-wound Skin Appearance) Erythema Assessed -Temperature (Carol-wound Skin No Abnormality No Abnormality Appearance) (Pt Warm) (Pt Warm) -Tenderness on Palpation (Carol-wound No No Skin Appearance) -Ulcer Cleansing Wound Cleanser Soap and Water -Foul Odor after Cleansing No -Anesthetic Used 5% Lidocaine 5% Lidocaine Gel Gel -Wound Comment(s) darkened skin on lower abd fold with skin tags WC - Nurse 2 - General Ulcer CM Notes Start: 08/06/24 09:37 Freq: Status: Active Protocol: Activity Type Activity Date Activity User E-sign Co-sign Detail Recorded Client Recorded Date Recorded By Document 08/06/24 10:26 [id number] 08/06/24 10:44 GM Document 08/13/24 11:00 GM [id number] 08/13/24 11:07 GM 08/06/24 08/13/24 10:26 11:00 Wound Center Nurse 2 2. R groin -Time 10:26 11:05 -Correct Patient Yes Yes -Correct Side, Site, Position Yes Yes -Wound/Ulcer Outcome Not Healed -Wound Comment(s) Rash- irritated Hidradenitis, skin not open, boil Hydranitis visible 1. L groin -Time 10:27 11:06 -Correct Patient Yes Yes -Correct Side, Site, Position Yes Yes -Wound/Ulcer Outcome Not Healed -Wound Comment(s) rash - Hidradenitis irritated skin not open, boil hydranitis present Pain Scale: 0-10 Numeric Is Patient Pain Free? Yes Yes - Nurse 3 - General Ulcer D/C NN Start: 08/06/24 09:37 Freq: Status: Active Protocol: Activity Type Activity Date Activity User E-sign Co-sign Detail Recorded Client Recorded Date Recorded By Document 08/13/24 11:22 RB [id number] 08/13/24 11:25 RB 08/13/24 11:22 Wound Care Center Nurse 3 2. R groin -Other Dressing silvadene 1. L groin -Other Dressing silvadene Treatment Response Procedure Tolerated Well Pain Scale: 0-10 Numeric Is Patient Pain Free? Yes Teaching: Wound Center Hidradenitis -Person Taught Patient -Teaching Method Discussion, Demonstration -Response to teaching Verbalize Understanding WC - Visit Discharge Discharge Condition Stable Ambulatory Status Ambulatory,Cane Transportation Private Auto Medication Reconcilliation completed & No provided to patient/care provider Clinical Summary of Care Provided Yes Additional Wound Wound debrided: left groin Laterality: Left Operative Diagnosis: no debridement - no slough Assessment/Plan Assessment/Plan (1) Hypothyroidism: CODE(S): E03.9 - Hypothyroidism, unspecified QUALIFIERS: Hypothyroidism type: unspecified Qualified Code(s): E03.9 - (2) HTN (hypertension): CODE(S): I10 - Essential (primary) hypertension QUALIFIERS: Hypertension type: essential hypertension Qualified Code(s): I10 - Essential (primary) hypertension (3) Obesity: CODE(S): E66.9 - Obesity, unspecified QUALIFIERS: Obesity type: due to excess calories Obesity classification: adult class 2 (BMI 35 - 39.9) Serious obesity comorbidity presence: without serious comorbidity Body mass index: BMI 35.0-35.9 Qualified Code(s): E66.812 - Obesity, class 2; E66.09 - Other obesity due to excess calories; Z68.35 - Body mass index [BMI] 35.0-35.9, adult (4) Hidradenitis suppurativa: CODE(S): L73.2 - Hidradenitis suppurativa (5) Ulcer of left groin with fat layer exposed: CODE(S): L98.492 - Non-pressure chronic ulcer of skin of other sites with fat layer exposed (6) Skin ulcer of right groin with fat layer exposed: CODE(S): L98.492 - Non-pressure chronic ulcer of skin of other sites with fat layer exposed PLAN: Plan Debridement performed today in clinic as annotated above. At home wound-care instructions: The ulcers appear more like hidradenitis today with more apparent pockets typical of hidradenitis. There is less swelling. The patient will wash with antibacterial soap and water and then will apply silvadene to the open areas of her groin twice daily. Encouraged her to use baby wipes instead of rubbing alcohol to clean skin after using bathroom. Keep dressing clean and dry. Discussed the importance of treating the incontinence and to follow up as scheduled with urology regarding work up and options for treatment. Also discussed trying ABD pads in her underwear instead of incontinence pads due to the irritation that plastic may cause to her skin or trying reusable, washable cotton underpads. Educated patient on the chronicity of hidradenitis and encouraged continued weight loss. Off-loading: The patient was instructed to avoid pressure and friction on the affected areas. Reposition every 2 hours at minimum. Avoid prolonged standing and/or dangling of legs. When seated, feet should be elevated at chest level. Frequent ambulation is encouraged. Diet: Patient encouraged to increase protein intake while taking caution to avoid high carbohydrate and/or sugar intake. Labs/cultures/imaging: Follow-up: She will be discharged from treatment today. Advised for her to return if there is increased drainage, bleeding or pain. Discussed the chronicity of hidradenitis and that I don't believe she is a surgical candidate at this time. Note: [employer] speech recognition auto heater mechanic software was used to create portions of this document. Sound-alike and misspelled words, as well as other auto heater mechanic errors may be contained in the documentation.
== END 2024-08-13 12:00 | disposition home or self-care (01) ==
LOC: WC 10:30
PROVIDERS: PCP Family Medicine; Referring Provider Family Medicine; Visit Provider Family Medicine
DX: L98.492 Non-pressure chronic ulcer of skin of other sites with fat layer exposed (principal); E89.0 Postprocedural hypothyroidism; E78.00 Pure hypercholesterolemia, unspecified; I10 Essential (primary) hypertension; L73.2 Hidradenitis suppurativa; E66.812 Obesity, class 2; Z68.35 Body mass index [BMI] 35.0-35.9, adult; R32 Unspecified urinary incontinence; Z79.899 Other long term (current) drug therapy; Z79.890 Hormone replacement therapy
CPT/HCPCS: 99203; 99213; G0463

== ENCOUNTER → 2024-09-07 | Outpatient (CLI) | payer MEDICARE, SELFPAY ==
--- NOTE | 2024-09-07 15:17 | US_ITS ---
STUDY: ULTRASOUND OF THE FEMALE PELVIS - COMPLETE REASON FOR EXAM: Female, 74 years old. ABNORMAL VAGINAL BLEEDING LMP: Unknown. TECHNIQUE: Transabdominal TECHNICAL QUALITY: Adequate. COMPARISON: None. FINDINGS: The uterus is anteverted and is in a midline position. The uterus measures 7.6 x 4.6 x 3.5 cm. Normal uterine cervix. The endometrium measures 12 mm in thickness, and is hyperechoic. There is no demonstrated endometrial mass. 1 cm round hypoechoic mass within the anterior body of uterus consistent with an intramural fibroid. I.U.D. - The patient does not have an I.U.D. The right ovary is visualized. The right ovary measures 3.4 x 2.0 x 2.2 cm. There is no right ovarian cyst or ovarian mass. There is no visualized right adnexal mass or complex lesion. There is normal arterial and normal venous vascularity. The left ovary is visualized. The left ovary measures 2.5 x 3.0 x 2.8 cm. There is no left ovarian cyst or ovarian mass. There is no visualized left adnexal mass or complex lesion. There is normal arterial and normal venous vascularity. There is no fluid in the cul-de-sac. The pre void volume of the bladder was ml. The post void volume of the bladder was ml. Polycystic ovary disease: No. US/Pelvic (Non ) IMPRESSION: Small fibroid in the anterior body of the the uterus but overall normal sized uterus. Electronically Signed: Joey Hewitt MD at 13:29 EST ,
== END | disposition home or self-care (01) ==
PROVIDERS: PCP Family Medicine; Referring Provider Urology; Visit Provider Urology
DX: N93.9 Abnormal uterine and vaginal bleeding, unspecified (principal)
CPT/HCPCS: 76856

== ENCOUNTER 2024-12-03 17:27 | Emergency (ER) | payer MEDICARE, SELFPAY ==
[2024-12-03 17:27] VITALS: BP 149/66; PULSE 76; RESP 14; TEMP 36.9; O2SAT 100
--- NOTE | 2024-12-03 17:34 | ED.RN ---
the pt stated that her ass hurt the worse, when this nurse attempt to clarify if the wounds between her leg and hip went to her rectal area pt states I DON'T KNOW, MY NECK DOESNT BEND THAT WAY, IT'S NOT LIKE I HAVE A MIRROR AND IM LOOKING AT MY ASS.
[2024-12-03 18:42] VITALS: BMI 34.9
[2024-12-03 19:27] VITALS: BP 132/88; PULSE 84; RESP 16; O2SAT 98
[2024-12-03 20:09] LABS: Absolute Lymphocyte Count 1.11 X10^3/uL (0.83-4.51); Absolute Neutrophil Count 7.7 X10^3/uL (2.0-7.7); Basophil# 0.05 X10^3/uL; Basophil% 0.5 % (0-1); Hematocrit 35.3 % (37-47); Hemoglobin 11.9 g/dL (12.0-15.0); Lymphocyte # 1.11 X10^3/ul (0.83-4.51); Lymphocyte % 11.4 % (19-41); Mean Corp Hgb Conc 33.7 g/dL (32-36); Mean Corpuscular Hgb 29.8 pg (27.0-32.0); Mean Corpuscular Volume 88.3 fL (81-99); Mean Platelet Vol. 8.8 fl (6.2-12.0); Monocyte# 0.68 X10^3/uL; NRBC Flagged by Analyzer 0 % (0-5); Neutrophil # 7.73 X10^3/uL (2.7-7.7); Neutrophil % 79.6 % (47-70); Platelet Count 318 K/mm3 (150-450); RBC Distribution Width CV 12.8 % (11.6-14.6); RBC Distribution Width SD 41.2 fl (35.1-43.9); White Blood Count 9.7 K/mm3 (4.4-11.0)
--- NOTE | 2024-12-03 20:11 | EX.ED.DYSGE1 ---
HPI History of Present Illness Chief Complaint: Wound Informant: patient Narrative Narrative: Patient is a 74-year-old female with history of hypertension and hypothyroidism presenting for evaluation for chronically draining wounds of her groin. Patient states has been going on for at least 6 months after she had her most recent hip surgery (performed through [facility]). She states that she has had pain which she did she thought was irritation as she wears feminine pad because of urinary incontinence all the time. She has had drainage from the area. It is become more painful which is what brought her to the emergency room today. She initially went to urgent care but they instructed her to the ER. She also notes that she has some irritation of her buttocks and perirectal area from where it feels that is chafing. She notes that when she was younger she would develop boils of her labia's but she would self treat once they came to ahead and pop them herself. She denies associated fever, chills, nausea or vomiting. She denies any history of diabetes. She has never seen anyone for them before. More recently she was applying rubbing alcohol to her inguinal area as well as Neosporin and this was helping with the pain but she was told that it is not good to continue to apply alcohol to it. [facility] Medical History Hypothyroid High cholesterol HTN (hypertension) Home Medications ?Medication ?Instructions ?Recorded ?Last Taken ?Type hydrochlorothiazide 25 mg tablet 25 mg PO DAILY blood pressure 01/06/20 01/04/20 History Held on 08/06/24. Instructions: MD Ordered levothyroxine 137 mcg tablet 150 mcg PO DAILY thyroid 01/06/20 01/05/20 History lisinopril 10 mg tablet 40 mg PO DAILY blood pressure 01/06/20 01/04/20 History amoxicillin 875 mg-potassium 875 mg PO Q12H #14 tabs 01/09/20 Unknown Rx clavulanate 125 mg tablet Held on 08/06/24. Instructions: Ordered cephalexin 500 mg capsule 500 mg PO Q6 #40 CAPSULES 02/12/21 Unknown Rx Held on 08/06/24. Instructions: Ordered sulfamethoxazole 800 1 tablet PO BID #14 TABLETS 02/12/21 Unknown Rx mg-trimethoprim 160 mg tablet Held on 08/06/24. Instructions: MD Ordered acetaminophen 500 mg tablet (Pain 1,000 mg PO Q6H PRN pain 08/06/24 Unknown History Reliever (acetaminophen)) amlodipine 10 mg tablet (Norvasc) 10 mg PO DAILY 08/06/24 Unknown History furosemide 40 mg tablet (Lasix) 40 mg PO DAILY 08/06/24 Unknown History polyethylene glycol 1 ea miscellaneous DAILY 08/06/24 Unknown History pravastatin 10 mg tablet 10 mg PO QHS 08/06/24 Unknown History silver sulfadiazine 1 % topical 1 applic topical BID #400 grams 08/06/24 Unknown Rx cream (SSD) doxycycline hyclate 100 mg tablet 100 mg PO BID #28 tabs 12/03/24 Unknown Rx nystatin 100,000 unit/gram topical 1 applic topical BID #30 grams 12/03/24 Unknown Rx powder Allergy/AdvReac Type Severity Reaction Status Date / Time No Known Allergies Allergy Verified 12/03/24 17:28 Surgical History H/O thyroidectomy History of right hip replacement Social History Smoking Status: Never smoker ROS ROS ED Constitutional Constitutional ED: Denies chills or fever(s) Cardiovascular Cardiovascular: Denies chest pain Respiratory/Chest Respiratory/Chest: Denies cough Gastrointestinal Gastrointestinal: Reports other Details: Denies pain with defecation ; Denies abdominal pain, diarrhea, nausea or vomiting Genitourinary Genitourinary ED: Reports other Details: Chronic urinary incontinence ; Denies dysuria Musculoskeletal Musculoskeletal: Denies arthralgias or myalgias Integumentary Reports other Details: Draining wound in the bilateral inguinal area (right slightly worse than left) Neurologic Neurologic: Denies weakness Hematologic/Lymphatic Hematologic/Lymphatic: Denies easy bleeding or easy bruising EXAM Physical Exam Const Vital Signs: 12/03/24 17:27 12/03/24 19:27 12/03/24 21:00 Temperature 98.5 F Temperature Source Temporal Pulse Rate 76 84 81 Respiratory Rate 14 16 18 Blood Pressure 149/66 H 132/88 H 138/84 H Blood Pressure Mean 93 102 102 Pulse Ox 100 98 97 Oxygen Delivery Method Room Air Positive well nourished and well developed General Appearance ED: well developed and NAD HEENT Reports moist mucous membranes Neck supple Chest Wall inspection of chest normal and palpation of chest normal Resp normal respiratory effort and clear to auscultation bilaterally Cardio regular rate and regular rhythm GI normal to inspection, nondistended, normoactive bowel sounds, non-tender and non-distended Narrative: Chaperoned external exam performed with nurse Triny. Patient has chronic appearing thickening of the labia majora right worse than left. No associated drainage or tenderness appreciated. Normal labia minora. In the bilateral inguinal area lateral to the labia majora there is thickening of the skin and crypts with purulent drainage. Is mildly tender to palpation on the right and slightly more pronounced on the right. No associated warmth or cellulitic changes. In the perineum there is a superficial pustule on the right that is spontaneously draining purulent material. Normal perirectal area. Extremity normal to inspection Neuro oriented x3 Sensorium / Orientation: alert Motor Exam: Negative for general weakness Psych mental status grossly normal Skin Skin Narrative: Thickening of the skin with cryptic skin changes to the groin area/perineum more pronounced on the right than the left. There is some associated purulent drainage bilaterally. No obvious area of fluctuance. This changes seen most consistent almost with a hidradenitis suppurativa. Patient does have maceration and erythema of the skin fold underneath her pannus consistent with fungal infection. MDM MDM MDM Narrative Medical decision making narrative: Patient is evaluated for chronic draining wounds of her inguinal area. Differential includes chronic folliculitis, abscess, hidradenitis suppurativa. Patient is well-appearing and does not have any crepitus. I do not think this is Milagro's gangrene. She is not diabetic and does not have any risk factors. I will obtain baseline labs to ensure she does not have signs of worse infection and then would have appreciated on physical exam. She has mild anemia with hemoglobin 11.9 but white blood cell count is normal. CRP mildly elevated at 10.6. Lab work otherwise normal with a largely normal BMP. Glucose 102 but this is not fasting. Patient does report that this started around the same time of his hip surgery. None of these wounds tracked towards the hip and she is not have any tenderness over the hips or pain with range of motion of the hips. I do not think there is any type of periprosthetic hip infection. Did send off for wound culture. Will start patient on doxycycline. Will give referral to dermatology. Patient is agreeable with this. Will be discharged home. Given return precautions. Other areas are actively draining and do not think require any type of incision and drainage. Discussed warm compress. Patient does also have maceration of the skin folds under her pannus and will be started on nystatin powder for this. Chart review shows the patient was seen at wound care on 08/13/2024 for these wounds. In that note she states they been waxing over the past 12 years. Is thought that this is most consistent with hidradenitis. Patient will be referred back to wound care. Lab Data Attestation: I reviewed the patient's lab results. Labs: Laboratory Results - last 24 hr 12/03/24 19:56 WBC 9.7 RBC 4.00 L Hgb 11.9 L Hct 35.3 L MCV 88.3 MCH 29.8 MCHC 33.7 RDW Std Deviation 41.2 RDW Coeff of Gisela 12.8 Plt Count 318 MPV 8.8 Immature Gran % (Auto) 0.500 Neut % (Auto) 79.6 H Lymph % (Auto) 11.4 L Houghton % (Auto) 7.0 Eos % (Auto) 1.0 Baso % (Auto) 0.5 Absolute Neuts (auto) 7.7 Absolute Lymphs (auto) 1.11 Nucleated RBC % 0 Sodium 135 L Potassium 3.8 Chloride 100 Carbon Dioxide 24.0 Anion Gap 10 BUN 23 H Creatinine 0.99 Estim Creat Clear Calc 46.27 Est GFR (MDRD) Af Amer 70 Est GFR (MDRD) Non-Af 58 L BUN/Creatinine Ratio 23.3 H Glucose 102 Calcium 9.5 C-React Prot Ext Range 10.60 H Discharge Plan Triage Chief Complaint: Wound ED Provider: Kathleen Winkler Dx/Rx/DC Orders Clinical Impression: Hidradenitis suppurativa, Non-healing left groin open wound, Non-healing right groin open wound Instructions: ED Hidradenitis Suppurativa, Abx Prescriptions: New doxycycline hyclate 100 mg tablet 100 mg PO BID Qty: 28 0RF nystatin 100,000 unit/gram powder 1 applic topical BID Qty: 30 0RF Rx Instructions: apply to skin folds of lower abdomen No Action levothyroxine 137 MCG tablet 150 mcg PO DAILY lisinopril 10 MG tablet 40 mg PO DAILY hydrochlorothiazide 25 MG tablet 25 mg PO DAILY amoxicillin-pot clavulanate 875 MG tablet 875 mg PO Q12H Qty: 14 0RF sulfamethoxazole-trimethoprim 1 TABLET tablet 1 tablet PO BID Qty: 14 0RF cephalexin 500 MG capsule 500 mg PO Q6 Qty: 40 0RF amlodipine [Norvasc] 10 mg tablet 10 mg PO DAILY acetaminophen [Pain Reliever (acetaminophen)] 500 mg tablet 1,000 mg PO Q6H PRN (Reason: pain) furosemide [Lasix] 40 mg tablet 40 mg PO DAILY polyethylene glycol Powder 1 ea miscellaneous DAILY pravastatin 10 mg tablet 10 mg PO QHS silver sulfadiazine [SSD] 1 % cream 1 applic topical BID Qty: 400 0RF Rx Instructions: apply a 1.5 mm thickness Primary Care Provider: Mateo Avalos Referrals: Mateo Avalos MD [Primary Care Provider] - Kasi Eugene MD [Med Staff - Active Staff] - (for wound care ) Angel Townsend MD [Med Staff - Electrician Outside] - Activity Restrictions/Additional Instructions: Please follow-up with wound care. Seeing previously seeing wound care here. Please call Dr. Eugene's office about arranging this. I suspect you have a chronic skin condition that is causing this continued drainage and irritation. Will place on antibiotics in case there is a secondary infection. I do recommend he see dermatology as well. To be given referrals. In addition you do have some candidiasis (yeast infection) underneath the folds of your skin of your lower abdomen. Please apply the powder there as directed on the prescription to help with this. For to try to keep these areas dry. Print Language: Azeri Disposition Disposition: Home, Self Care
[2024-12-03 20:27] LABS: Anion Gap 10 (5-15); BUN 23 mg/dL (7-18); BUN/Creat Ratio 23.3 RATIO (10-20); Calcium,Total 9.5 mg/dL (8.5-10.1); Chloride 100 mmol/L (98-107); Creatinine, Serum 0.99 mg/dL (0.55-1.02); EST Glomerular Filtration Rate 58 mL/min (>60); Est Glom Filt Rate - Afr Amer 70 mL/min (>60); Estimated Creatinine Clearance 46.27 ml/min; Glucose 102 mg/dL (74-106); Potassium 3.8 mmol/L (3.5-5.1); Sodium Level 135 mmol/L (136-145)
[2024-12-03 21:00] VITALS: BP 138/84; PULSE 81; RESP 18; O2SAT 97
[2024-12-03 22:07] VITALS: BP 131/88; PULSE 79; RESP 16; TEMP 36.2; O2SAT 98
== END 2024-12-03 22:10 | disposition home or self-care (01) ==
PROVIDERS: Emergency Provider Emergency Medicine; PCP Family Medicine; Visit Provider Emergency Medicine
DX: L73.2 Hidradenitis suppurativa (principal); D64.9 Anemia, unspecified; R32 Unspecified urinary incontinence; E78.00 Pure hypercholesterolemia, unspecified; I10 Essential (primary) hypertension; E03.9 Hypothyroidism, unspecified; S31.109D Unspecified open wound of abdominal wall, unspecified quadrant without penetration into peritoneal cavity, subsequent encounter
CPT/HCPCS: 80048; 85025; 86140; 87070; 87077; 87186; 87205; 99282; A4216

== ENCOUNTER 2025-01-18 08:15 | Day surgery (SDC) | payer MEDICARE, OTHER, SELFPAY ==
--- NOTE | 2025-01-06 10:52 | EKG12_ITS ---
Test Reason : PREOP Blood Pressure : */* mmHG Vent. Rate : 54 BPM Atrial Rate : 54 BPM P-R Int : 164 ms QRS Dur : 82 ms QT Int : 410 ms P-R-T Axes : 53 15 33 degrees QTcB Int : 388 ms Sinus bradycardia Otherwise normal ECG Confirmed by BROOK JULES, JOE ([id number]), international editorial producer SHOLA GONZALEZ ([id number]) on 01/07/2025 1:13:57 PM Referred By: Shayla Fay Confirmed By: JOE DOE MD
[2025-01-06 11:58] LABS: Hemoglobin 12.6 g/dL (12.0-15.0); Mean Corp Hgb Conc 34.1 g/dL (32-36); Mean Corpuscular Hgb 29.9 pg (27.0-32.0); Mean Corpuscular Volume 87.7 fL (81-99); Mean Platelet Vol. 9.2 fl (6.2-12.0); Platelet Count 329 K/mm3 (150-450); RBC Distribution Width CV 13.4 % (11.6-14.6); RBC Distribution Width SD 42.8 fl (35.1-43.9); Red Blood Count 4.22 M/mm3 (4.2-5.4); White Blood Count 7.5 K/mm3 (4.4-11.0)
--- NOTE | 2025-01-06 12:05 | PAT.ANESEVAL ---
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 When Was Last Pacemaker Check QUESTION #4 FULL TEXT: You/Your Family Experience fever (hyperthermia) with Anesthesia Last Oral Intake Last Oral intake: Last Oral Intake NPO since Meds taken in AM with sips of water? Meds patient instructed to take am of surgery PONV PONV - florist designer: PONV - florist designer Female Yes 01/04/25 14:07 HX of Motion Sickness No 01/04/25 14:07 HX of N/V After Surgery No 01/04/25 14:07 Non-Smoker Yes 01/04/25 14:07 Duration of Surgery greater No 01/04/25 14:07 than 60 minutes Number of Risk Factors 2 01/04/25 14:07 PONV Score Moderate Risk 01/04/25 14:07 Height & Weight Height & Weight: Anesthesia: Height & Weight Height 5 ft 12/10/24 09:12 Respiratory Assessment Respiratory Assessment - florist designer: Respiratory Tract Infection Hx - florist designer Hx Respiratory Tract Infection No 01/04/25 14:07 STOP Sleep Apnea STOP Sleep Apnea - florist designer: STOP Sleep Apnea - florist designer Hx Hypertension Yes: CONTROLLED ON MED 01/04/25 14:07 Hx Sleep Apnea No 01/04/25 14:07 CPAP BIPAP Do you snore loudly (louder No 01/04/25 14:07 than talking or can be heard Do you often feel tired/ No 01/04/25 14:07 fatigued/ sleepy during daytime? Has anyone observed you stop No 01/04/25 14:07 breathing during sleep? STOP Results Negative 01/04/25 14:07 QUESTION #5 FULL TEXT : Do you snore loudly (louder than talking or can be heard through closed doors)? 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 Specify any problems Hx of Preganancy in last 3 No 01/04/25 14:07 Months Nurse Filling Out Transfusion VCHRISTIN 01/04/25 14:07 & Questions: Date: 01/04/25 01/04/25 14:07 Time: 14:09 01/04/25 14:07 Patient unable to answer at this time (ie. confused, unrespo /Reproduction History /Reproductive History - florist designer: /Reproductive Hx- florist designer Hx Now No 01/04/25 14:07 Gestational Age (in weeks): EDC: Hx Hx Para Hx Section SAB No 01/04/25 14:07 [facility] Medical History (Updated 01/04/25 @ 14:07 by Brii Gallego) Post-menopausal Depression Anxiety Dementia Open wound Arthritis Non-smoker Shortness of breath on exertion Urinary incontinence Gout Hypothyroid High cholesterol HTN (hypertension) Home Medications ?Medication ?Instructions ?Recorded ?Last Taken ?Type levothyroxine 137 mcg tablet 150 mcg PO DAILY thyroid 01/06/20 01/05/20 History lisinopril 10 mg tablet 40 mg PO DAILY blood pressure 01/06/20 01/04/20 History amlodipine 10 mg tablet (Norvasc) 10 mg PO DAILY 08/06/24 Unknown History furosemide 40 mg tablet (Lasix) 40 mg PO DAILY 08/06/24 Unknown History pravastatin 10 mg tablet 10 mg PO QHS 08/06/24 Unknown History allopurinol 300 mg tablet 300 mg PO QDAY 12/10/24 Unknown History mecobalamin (vitamin B12) 1,000 1,000 mcg PO QDAY 12/10/24 Unknown History mcg chewable tablet potassium chloride 20 mEq 20 meq PO QDAY 12/10/24 Unknown History tablet,extended release donepezil 5 mg tablet 5 mg PO DAILY 01/04/25 Unknown History doxycycline hyclate 100 mg tablet 100 mg PO BID 01/04/25 Unknown History Allergy/AdvReac Type Severity Reaction Status Date / Time Latex, Natural Rubber Allergy Mild Rash Verified 01/04/25 13:48 Family History Father Colon cancer Mother Hypertension Surgical History Status post amputation of finger S/P bladder repair History of left hip replacement H/O thyroidectomy History of right hip replacement Social History Smoking Status: Never smoker additional social history: Single Audit: Pertinent Findings Pertinent Findings EKG Perinent findings: Sinus Jason Recommendation Anesthesia Recommendation Anesthesia recommendation: F/U recommended (Are there more details about the patient going to LTAC after hip surgery? Was this due to anesthesia? Or the LTAC was due to hip surgery, and in addition the patient had issues with waking up during surgery. I saw a request for a spinal for this case -- we should do under MAC. )
[2025-01-06 13:09] LABS: ALB/GLOB Ratio 1.9 RATIO (0.9-2.4); AST(SGOT) 20 U/L (<=31); Alanine Aminotransfer ALT/SGPT 14 U/L (<=34); Albumin, Serum 4.2 g/dL (3.4-4.8); Alkaline Phosphatase 92 U/L (35-104); Anion Gap 14 (5-15); BUN 20 mg/dL (4-19); BUN/Creat Ratio 24.2 RATIO (10-20); Calcium,Total 9.4 mg/dL (7.6-11.0); Carbon Dioxide 19.7 mmol/L (21.0-32.0); Chloride 95 mmol/L (98-108); Creatinine, Serum 0.84 mg/dL (0.70-1.20); EST Glomerular Filtration Rate 73 (>60); Globulin 2.3 g/dL (2.2-4.2); Glucose 120 mg/dL (70-99); Potassium 4.2 mmol/L (3.3-5.1); Protein, Total 6.5 g/dL (5.9-8.4); Sodium Level 129 mmol/L (133-145); Total Bilirubin 0.86 mg/dL (0.00-1.30)
--- NOTE | 2025-01-06 17:32 | PAT.ANESEVAL ---
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 When Was Last Pacemaker Check QUESTION #4 FULL TEXT: You/Your Family Experience fever (hyperthermia) with Anesthesia Last Oral Intake Last Oral intake: Last Oral Intake NPO since Meds taken in AM with sips of water? Meds patient instructed to take am of surgery PONV PONV - manager of development: PONV - manager of development Female Yes 01/04/25 14:07 HX of Motion Sickness No 01/04/25 14:07 HX of N/V After Surgery No 01/04/25 14:07 Non-Smoker Yes 01/04/25 14:07 Duration of Surgery greater No 01/04/25 14:07 than 60 minutes Number of Risk Factors 2 01/04/25 14:07 PONV Score Moderate Risk 01/04/25 14:07 Height & Weight Height & Weight: Anesthesia: Height & Weight Height 5 ft 12/10/24 09:12 Respiratory Assessment Respiratory Assessment - manager of development: Respiratory Tract Infection Hx - manager of development Hx Respiratory Tract Infection No 01/04/25 14:07 STOP Sleep Apnea STOP Sleep Apnea - manager of development: STOP Sleep Apnea - manager of development Hx Hypertension Yes: CONTROLLED ON MED 01/04/25 14:07 Hx Sleep Apnea No 01/04/25 14:07 CPAP BIPAP Do you snore loudly (louder No 01/04/25 14:07 than talking or can be heard Do you often feel tired/ No 01/04/25 14:07 fatigued/ sleepy during daytime? Has anyone observed you stop No 01/04/25 14:07 breathing during sleep? STOP Results Negative 01/04/25 14:07 QUESTION #5 FULL TEXT : Do you snore loudly (louder than talking or can be heard through closed doors)? 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 Specify any problems Hx of Preganancy in last 3 No 01/04/25 14:07 Months Nurse Filling Out Transfusion VCHRISTIN 01/04/25 14:07 & Questions: Date: 01/04/25 01/04/25 14:07 Time: 14:09 01/04/25 14:07 Patient unable to answer at this time (ie. confused, unrespo /Reproduction History /Reproductive History - manager of development: /Reproductive Hx- manager of development Hx Now No 01/04/25 14:07 Gestational Age (in weeks): EDC: Hx Hx Para Hx Section SAB No 01/04/25 14:07 [facility] Medical History (Updated 01/04/25 @ 14:07 by Brii Gallego) Post-menopausal Depression Anxiety Dementia Open wound Arthritis Non-smoker Shortness of breath on exertion Urinary incontinence Gout Hypothyroid High cholesterol HTN (hypertension) Home Medications ?Medication ?Instructions ?Recorded ?Last Taken ?Type levothyroxine 137 mcg tablet 150 mcg PO DAILY thyroid 01/06/20 01/05/20 History lisinopril 10 mg tablet 40 mg PO DAILY blood pressure 01/06/20 01/04/20 History amlodipine 10 mg tablet (Norvasc) 10 mg PO DAILY 08/06/24 Unknown History furosemide 40 mg tablet (Lasix) 40 mg PO DAILY 08/06/24 Unknown History pravastatin 10 mg tablet 10 mg PO QHS 08/06/24 Unknown History allopurinol 300 mg tablet 300 mg PO QDAY 12/10/24 Unknown History mecobalamin (vitamin B12) 1,000 1,000 mcg PO QDAY 12/10/24 Unknown History mcg chewable tablet potassium chloride 20 mEq 20 meq PO QDAY 12/10/24 Unknown History tablet,extended release donepezil 5 mg tablet 5 mg PO DAILY 01/04/25 Unknown History doxycycline hyclate 100 mg tablet 100 mg PO BID 01/04/25 Unknown History Allergy/AdvReac Type Severity Reaction Status Date / Time Latex, Natural Rubber Allergy Mild Rash Verified 01/04/25 13:48 Family History Father Colon cancer Mother Hypertension Surgical History Status post amputation of finger S/P bladder repair History of left hip replacement H/O thyroidectomy History of right hip replacement Social History Smoking Status: Never smoker additional social history: Single Audit: Pertinent Findings HISTORY of Pertinent Findings History of Pertinent Findings: EKG Pertinent Findings EKG Perinent findings Sinus Jason 01/06/25 12:06 Recommendation Anesthesia Recommendation Anesthesia recommendation: F/U recommended (I'm not understanding what happened to this patient necessitating LTAC from anesthesia. The anesthesia postoperative report and intraoperative record show no unusual events. I know this anesthesiologist & can reach out to her but we need more records and confirmation that her LTAC is related to anes)
[2025-01-18] VITALS (9 sets, daily range): BP systolic 91–107; BP diastolic 48–69; PULSE 48–60; RESP 16–20; TEMP 36.1–36.8; O2SAT 94–99; BMI 31.4
--- NOTE | 2025-01-18 | EMB_PTH ---
PATIENT: JAIRON DEC[place]ER [place] [facility] [id number] AGE/SX: 74/F ROOM: RE01/18/[address]: Dr. Shayla Fay DO : 1950 BED: DIS: 01/18/2025 SPEC #: [id number] RECD: 01/18/25 14:40 STATUS: KERI KATYA #: [id number] TANESHA: 01/18/25 00:[address]: Shayla Fay DEPT: SURGICAL PATHOLOGY RECD BY: Edil Acuña ENTERED: 01/18/25 14:40 SP TYPE: ENDOM BX/C NIKOLAS DR: Dr. Mateo Avalos MD Tissues: Endometrium, NOS Procedures: Surgery Specimen Level IV HEADER OPERATION: Hysterectomy, D&C PRE-OP DIAGNOSIS: Thickened endometrium, postmenopausal bleeding TISSUE SUBMITTED: A- Endometrial curettings MICROSCOPIC DIAGNOSIS A. ENDOMETRIUM, DILATION AND CURETTAGE: -ENDOMETRIAL POLYP. BENIGN. MICROSCOPIC DESCRIPTION Slides are reviewed. GROSS DESCRIPTION A. Received in formalin labeledSanjeev Carol, and designated endometrial curettings, are multiple pink-amor to red-brown, irregularly-shaped, soft tissue fragments and mucus that aggregate to 2.5 x 2.2 x 0.2 cm. Totally submitted in one cassette. EDELIMRA 01/18/2025 CPT:76664
--- NOTE | 2025-01-18 09:29 | PCM.PRE.AN2 ---
ASA Classification* ASA Classification ASA Classification: 3 Assessment & Plan Anesthesia* Anesthesia Assessment Anesthesia Assessment: Discussed sedation and/or anesthesia options, risks, benefits, and alternatives with patient/parents/legal guardian/POA. Questions invited. The patient/parents/legal guardian/POA seems to understand and agrees to proceed with anesthesia plan. Reviewed the physical assessment, medical history, allergy history and patient home medications list prior to surgery/procedure/anesthetic and documented any changes. Performed airway and anesthesia risk assessments. Anesthesia Type Anesthesia Type: MAC History Source History Obtained from:: Patient and Chart Anesthesia Focused Assessment* Temperature: 98.3 F Pulse Rate: 59 Blood Pressure: 104/61 Respiratory Rate: 16 Pulse Ox: 96 Oxygen Delivery Method: Room Air Airway Assessment Mouth opens: >3 cm Mallampati Score: II Teeth Condition: Caps/Crowns (Patient has couple crowns. They are tight.) Neck Range of motion (ROM): Full ROM Focused Labs Anesthesia Preop lab: CBC WBC 7.5 K/mm3 (4.4-11.0) 01/06/25 11:01/06/25 RBC 4.22 M/mm3 (4.2-5.4) 01/06/25 11:21 01/06/25 Hgb 12.6 g/dL (12.0-15.0) 01/06/25 11:01/06/25 Hct 37.0 % (37-47) 01/06/25 11:21 01/06/25 Plt Count 329 K/mm3 (150-450) 01/06/25 11:21 01/06/25 CHEMISTRY Potassium 4.2 mmol/L (3.3-5.1) 01/06/25 11:21 01/06/25 Sodium 129 mmol/L (133-145) L 01/06/25 11:01/06/25 Magnesium 1.7 mg/dL (1.6-2.6) 01/05/20 23:35 01/05/20 BUN 20 mg/dL (4-19) H 01/06/25 11:21 01/06/25 Creatinine 0.84 mg/dL (0.70-1.20) 01/06/25 11:21 01/06/25 Glucose 120 mg/dL (70-99) H 01/06/25 11:21 01/06/25 TSH 8.15 uIU/mL (0.358-3.74) H 05/11/24 07:00 05/11/24 COAG Pre-Assessment Diagnosis/Proposed Procedure Planned Operative Procedure(s): Hysteroscopy,Dilation and Curettage Anesthesia History 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 When Was Last Pacemaker Check QUESTION #4 FULL TEXT: You/Your Family Experience fever (hyperthermia) with Anesthesia Last Oral Intake Last Oral intake: Last Oral Intake NPO since 00:00 01/18/25 08:36 Meds taken in AM with sips of No 01/18/25 08:36 water? Meds patient instructed to take am of surgery PONV PONV - violin teacher: PONV - violin teacher Female Yes 01/04/25 14:07 HX of Motion Sickness No 01/04/25 14:07 HX of N/V After Surgery No 01/04/25 14:07 Non-Smoker Yes 01/04/25 14:07 Duration of Surgery greater No 01/04/25 14:07 than 60 minutes Number of Risk Factors 2 01/04/25 14:07 PONV Score Moderate Risk 01/04/25 14:07 Height & Weight Height & Weight: Anesthesia: Height & Weight Height 5 ft 01/18/25 08:36 Weight: 73 kg 01/18/25 08:36 Body Mass Index (BMI) 31.4 01/18/25 08:36 Respiratory Assessment Respiratory Assessment - violin teacher: Respiratory Tract Infection Hx - violin teacher Hx Respiratory Tract Infection No 01/04/25 14:07 Any additional information?: Yes Hx Respiratory Tract Infection: Yes (Patient has chronic cough.) STOP Sleep Apnea STOP Sleep Apnea - violin teacher: STOP Sleep Apnea - violin teacher Hx Hypertension Yes: CONTROLLED ON MED 01/04/25 14:07 Hx Sleep Apnea No 01/04/25 14:07 CPAP BIPAP Do you snore loudly (louder No 01/04/25 14:07 than talking or can be heard Do you often feel tired/ No 01/04/25 14:07 fatigued/ sleepy during daytime? Has anyone observed you stop No 01/04/25 14:07 breathing during sleep? STOP Results Negative 01/04/25 14:07 QUESTION #5 FULL TEXT : Do you snore loudly (louder than talking or can be heard through closed doors)? 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 Specify any problems Hx of Preganancy in last 3 No 01/04/25 14:07 Months Nurse Filling Out Transfusion VCHRISTIN 01/04/25 14:07 & Questions: Date: 01/04/25 01/04/25 14:07 Time: 14:09 01/04/25 14:07 Patient unable to answer at this time (ie. confused, unrespo /Reproduction History /Reproductive History - violin teacher: /Reproductive Hx- violin teacher Hx Now No 01/04/25 14:07 Gestational Age (in weeks): EDC: Hx Hx Para Hx Section SAB No 01/04/25 14:07 PFSH Medical History Post-menopausal Depression Anxiety Dementia Open wound Arthritis Non-smoker Shortness of breath on exertion Urinary incontinence Gout Hypothyroid High cholesterol HTN (hypertension) Home Medications ?Medication ?Instructions ?Recorded ?Last Taken ?Type levothyroxine 137 mcg tablet 150 mcg PO DAILY thyroid 01/06/20 01/05/20 History lisinopril 10 mg tablet 40 mg PO DAILY blood pressure 01/06/20 01/04/20 History amlodipine 10 mg tablet (Norvasc) 10 mg PO DAILY 08/06/24 Unknown History furosemide 40 mg tablet (Lasix) 40 mg PO DAILY 08/06/24 Unknown History pravastatin 10 mg tablet 10 mg PO QHS 08/06/24 Unknown History allopurinol 300 mg tablet 300 mg PO QDAY 12/10/24 Unknown History mecobalamin (vitamin B12) 1,000 1,000 mcg PO QDAY 12/10/24 Unknown History mcg chewable tablet potassium chloride 20 mEq 20 meq PO QDAY 12/10/24 Unknown History tablet,extended release donepezil 5 mg tablet 5 mg PO DAILY 01/04/25 Unknown History doxycycline hyclate 100 mg tablet 100 mg PO BID 01/04/25 Unknown History Allergy/AdvReac Type Severity Reaction Status Date / Time Latex, Natural Rubber Allergy Mild Rash Verified 01/18/25 08:34 Family History Father Colon cancer Mother Hypertension Surgical History Status post amputation of finger S/P bladder repair History of left hip replacement H/O thyroidectomy History of right hip replacement Social History Smoking Status: Never smoker additional social history: Single Review of Systems (Anesthesia) ROS Narrative System reviewed and no additional complaints, except as documented.
--- NOTE | 2025-01-18 10:18 | HP.PCM_ITS ---
History and Physical Date of Admission: 01/18/25 Intake Vital Signs 08/06/2410:00 12/03/2516:27 12/10/2508:12 Height 4 ft 11 in 5 ft 5 ft Weight: 170 lb 4 oz BMI 33.2 BP 112/62 Intake Visit Reasons: ENDOMETRIAL THICKENING POSS. EMB (YYAO) Software Configuration Analyst Required: No Is patient in pain?: No Allergies Latex, Natural Rubber Allergy (Mild, Verified 12/10/24 09:42) Rash Medications ?Medication ?Instructions ?Recorded ?Confirmed ?Type levothyroxine 137 mcg tablet 150 mcg PO DAILY thyroid 01/06/20 History lisinopril 10 mg tablet 40 mg PO DAILY blood pressure 01/06/20 0 12/10/24 History amlodipine 10 mg tablet (Norvasc) 10 mg PO DAILY 08/06/24 12/10/24 History furosemide 40 mg tablet (Lasix) 40 mg PO DAILY 08/06/24 12/10/24 History pravastatin 10 mg tablet 10 mg PO QHS 08/06/24 12/10/24 History nystatin 100,000 unit/gram topical 1 applic topical BID #30 grams 12/03/24 12/10/24 Rx powder allopurinol 300 mg tablet 300 mg PO QDAY 12/10/24 12/10/24 History doxycycline hyclate 100 mg capsule 100 mg PO QDAY 12/10/24 12/10/24 History mecobalamin (vitamin B12) 1,000 1,000 mcg PO QDAY 12/10/24 12/10/24 Hist ory mcg chewable tablet potassium chloride 20 mEq 20 meq PO QDAY 12/10/24 12/10/24 History tablet,extended release vibegron 75 mg tablet (Gemtesa) 75 mg PO QDAY 12/10/24 12/10/24 History Is last menstrual period known: No Post menopausal: Yes Patient : No : No PFSH PFSH Medical History (Updated 12/10/24 @ 10:[address] Shayla Fay, DO) Urinary incontinence Gout Hypothyroid High cholesterol HTN (hypertension) Surgical History (Updated 12/10/24 @ 09:47 by Criselda Lee) Status post amputation of finger S/P bladder repair History of left hip replacement H/O thyroidectomy History of right hip replacement Family History (Updated 12/10/24 @ 09:47 by Criselda Lee) Father Colon cancerMother Hypertension Social History (Updated 12/10/24 @ 09:48 by Criselda Lee) Smoking Status: Never smoker additional social history: Single History 0 Elective abortions Hx Para Spontaneous abortions Hx # Term Pregnancies Ectopic pregnancies Hx # Pregnancies Multiple births # of living children HPI ENDOMETRIAL THICKENING POSS. EMB (YAYO) Details: JAIRON DECKER is a 74 year old who presents for discussion about thickened endometrium measuring 12mm and some postmenopausal bleeding. This was found by Dr. Ochoa. She also suffers with HS and on doxy, sees the wound center for this. (She is a very poor historian and has a tangential thought process. ROS was difficult to obtain and keep her on track) ROS Const ROS Unobtainable: All systems reviewed & are unremarkable except as noted in H Resp Resp: Reports system reviewed and no additional complaints, except as documented; Denies cough GI GI: Reports as per HPI Psych Psych: Reports system reviewed and no additional complaints, except as documented Exam Const General: cooperative, healthy appearing, comfortable and no acute distress Resp Effort & Inspection: normal respiratory effort Other: Groin abscess that are oozing and different stages of healing present. Skin General: no rashes or lesions noted Psych Appearance: grossly normal Speech and Movement: speech and movement normal Coding Level of Care Code Off vis,new,level 5 Diagnoses Thickened endometrium R93.89 Postmenopausal bleeding N95.0 Assessment and Plan Assessment and Plan (1) Thickened endometrium: Status: Acute (2) Postmenopausal bleeding: Status: Acute Medications: Discontinued sulfamethoxazole-trimethoprim 800-160 mg Discontinued Reason: Order Completed 1 TAB PO BID 14 TABLETS 0RF sulfamethoxazole-trimethoprim 800-160 mg Discontinued Reason: Order Completed 1 TAB PO BID 20 TABLETS 0RF silver sulfadiazine 1% (SSD) apply a 1.5 mm thickness Discontinued Reason: Order Completed 1 applic topical BID 400 grams 0RF Plan continue antibiotics for HS will need hysteroscopy D&C but based on her history after her last anesthesia, I want to ask anesthesia if they will consider spinal anesthesia. After discussing the patient's diagnosis and treatment plan options, patient wishes to proceed with surgical management. I have discussed with the patient the risks, benefits, and alternatives of the procedure which include but are not limited to risks of anesthesia, bleeding, infection, possible damage to bowel, bladder, or surrounding vasculature which could lead to additional surgery to evaluate any complications. Patient agrees to procedure and wishes to proceed. ACOG/uptodate references given for additional information regarding procedure. consent signed today. pt states phone may not work and we can call gerson at [phone] (her brother)
--- NOTE | 2025-01-18 10:19 | DCINST_ITS ---
Discharge Instructions Diet Discharge Diet: No restrictions DC O2, CPAP, BIPAP needs Home O2 Discharge instructions: No Dressing / Incision Discharge Activity: Return to Normal Activity, May Shower and May Take a Tub Bath (after 1 week) May resume sexual activity in: 1-2 weeks Weight Bearing Status: Weight bearing as tolerated Lifting Restrictions: none Dressing / Incision Call your doctor if you observe: Fever of 101 or Higher, Using more than 1 pad per hour, Shortness of breath and Uncontrolled pain Follow Up Care Please Follow Up With: Shayla Fay DO When: Call [phone] to schedule appointment. Test Results: Test results from this visit will be discussed in further detail at your follow- up appointment, if applicable. Discharge Plan Admission Primary Reason for Your Visit: hysteroscopy dilation and curettage Attending Provider: Shayla Fay Primary Care Provider: Mateo Avalos Instructions Print Language: Belarusian Discharge Orders/Prescriptions Prescriptions: Continued allopurinol 300 mg tablet 300 mg PO QDAY potassium chloride 20 mEq tablet extended release 20 meq PO QDAY mecobalamin (vitamin B12) 1,000 mcg tablet,chewable 1,000 mcg PO QDAY levothyroxine 137 MCG tablet 150 mcg PO DAILY lisinopril 10 MG tablet 40 mg PO DAILY amlodipine [Norvasc] 10 mg tablet 10 mg PO DAILY furosemide [Lasix] 40 mg tablet 40 mg PO DAILY pravastatin 10 mg tablet 10 mg PO QHS doxycycline hyclate 100 mg tablet 100 mg PO BID donepezil 5 mg tablet 5 mg PO DAILY Referrals / Follow Up: Mateo Avalos MD [Primary Care Provider] - Disposition Disposition (needs filled in before D/C Order can be placed): Home, Self Care
[2025-01-18] MEDS: Lidocaine 1% (20 ml mdv) 20 ML Vial (10:43)
--- NOTE | 2025-01-18 11:33 | PCM.POST.ANE ---
Anesthesia: Postop Eval I Current Vital Signs Temperature: 97 F Pulse Rate: 60 Blood Pressure: 103/69 Respiratory Rate: 16 Pulse Ox: 98 Oxygen Delivery Method: Room Air Assessment Airway patent: Yes Spontaneous unlabored respirations: Yes Mental status: Awake and Calm nausea: No Vomiting: No Anesthesia Complication: No Fluid Hydration Crystalloid volume administer (ml): 10 Total IV fluid infused: 10 Progress Note Anesthesia document: Postop Eval 1 completed: Yes
--- NOTE | 2025-01-18 11:42 | PCM.OPRPT ---
Problems Associated Problem List Diagnoses (1) Postmenopausal bleeding: (2) Thickened endometrium: Multi Select Codes Urinary/Genital Urinary/Genital CPT Codes: 61513 Hysteroscopy,EMC, Polypectomy Operative Report (Standard) Operative Information Date of Procedure: 01/18/25 Pre-Operative Diagnosis: postmenopausal bleeding and thickened endometrium Post-Operative Diagnosis: postmenopausal bleeding and thickened endometrium Surgery/Procedure Performed: hysteroscopy dilation and curettage vendor management specialist: No Type of Anesthesia: MAC and Topical Anesth RN Documented Start/Stop Times: Operation Date: 01/18/25 10:10 Case Time Into Pre-Op 01/18/25 08:19 Anesthesia Start 01/18/25 10:54 Into Room 01/18/25 10:54 Procedure Start 01/18/25 11:12 Procedure End 01/18/25 11:24 Anesthesia End 01/18/25 11:30 Out of Room 01/18/25 11:30 Into Recovery 01/18/25 11:35 Procedure Start Time: 11:12 Procedure Stop Time: 11:30 Select all DRAINS/GRAFTS/IMPLANTS that apply: None Estimated Blood Loss: 5cc Specimen collected: Yes Description of specimen(s) removed: endometrial curetting's Description of surgery: Patient was prepped and draped in a normal sterile fashion under MAC anesthesia. A weighted speculum was placed in the vagina and the anterior lip of the cervix was grasped with a single-tooth tenaculum. A paracervical block was placed with 1% lidocaine. Cervix was progressively dilated to allow passage of a 5 mm hysteroscope. The lining was fully visualized and noted to have a polyp looking structure at the fundus . A Curettage was performed and [the specimen was sent to pathology. All instruments were removed from the vagina and excellent hemostasis was noted. Patient was awoken and taken to recovery in stable condition. Surgical Findings: likely endometrial polyp. multiple healing and active groin abscesses (hidradenitis suppurativa) Complications Complications: No Admit VTE Documentation VTE Present on Admission: No VTE Mechan Device Prophylaxis: SCD's VTE Pharm Prophylaxis ordered?: No
[2025-01-18] MEDS: Phenazopyridine 95 MG Tablet PO (12:35)
[2025-01-18] MEDS: Naproxen 500 MG Tablet PO (12:37)
--- NOTE | 2025-01-18 19:26 | POSTOPAN2_ITS ---
Anesthesia Postop Eval I Sum Postop Eval Completion status Anesthesia document: Postop Eval 1 completed: Yes Anesthesia Postop Eval I Summary Anesthesia Postop Eval I Summary: Anesthesia Postop Eval I: Assessment Summary Airway patent Yes 01/18/25 11:34 LEGAL ADMINISTRATIVE ASSISTANT.ANNETTEOBJl Spontaneous unlabored Yes 01/18/25 11:34 LEGAL ADMINISTRATIVE ASSISTANT.JUS respirations Mental status Awake,Calm 01/18/25 11:34 LEGAL ADMINISTRATIVE ASSISTANT.ANNETTEOBJl nausea No 01/18/25 11:34 LEGAL ADMINISTRATIVE ASSISTANT.ANNETTEOBJl Vomiting No 01/18/25 11:34 LEGAL ADMINISTRATIVE ASSISTANT.ANNETTEOBJl Anesthesia Postop Eval I: Fluid Summary Crystalloid volume administer 10 01/18/25 11:34 LEGAL ADMINISTRATIVE ASSISTANT.ANNETTEOBY (ml) Colloids volume administered ( ml) Blood Product volume administered (ml) Total IV fluid infused 10 01/18/25 11:34 LEGAL ADMINISTRATIVE ASSISTANT.JUS Anesthesia Postop Eval I: Summary Notes Anesthesia Complication No 01/18/25 11:34 LEGAL ADMINISTRATIVE ASSISTANT.JUS Anesthesia Complication Comment: Post-operative progress note Anesthesia: Postop Eval II Evaluation Mental status: Awake and Calm Pain Level: 1 nausea: No Vomiting: No Complications Anesthesia Complication: No
--- NOTE | 2025-01-18 19:26 | PCM.POSTANE2 ---
Anesthesia Postop Eval I Sum Postop Eval Completion status Anesthesia document: Postop Eval 1 completed: Yes Anesthesia Postop Eval I Summary Anesthesia Postop Eval I Summary: Anesthesia Postop Eval I: Assessment Summary Airway patent Yes 01/18/25 11:34 CREATIVE PERFUMER.ANNETTEOBJl Spontaneous unlabored Yes 01/18/25 11:34 CREATIVE PERFUMER.JUS respirations Mental status Awake,Calm 01/18/25 11:34 CREATIVE PERFUMER.ANNETTEOBJl nausea No 01/18/25 11:34 CREATIVE PERFUMER.ANNETTEOBJl Vomiting No 01/18/25 11:34 CREATIVE PERFUMER.ANNETTEOBJl Anesthesia Postop Eval I: Fluid Summary Crystalloid volume administer 10 01/18/25 11:34 CREATIVE PERFUMER.ANNETTEOBY (ml) Colloids volume administered ( ml) Blood Product volume administered (ml) Total IV fluid infused 10 01/18/25 11:34 CREATIVE PERFUMER.JUS Anesthesia Postop Eval I: Summary Notes Anesthesia Complication No 01/18/25 11:34 CREATIVE PERFUMER.JUS Anesthesia Complication Comment: Post-operative progress note Anesthesia: Postop Eval II Evaluation Mental status: Awake and Calm Pain Level: 1 nausea: No Vomiting: No Complications Anesthesia Complication: No
== END 2025-01-18 13:04 | disposition home or self-care (01) ==
LOC: SDC 08:16 → AC 08:17
PROVIDERS: PCP Family Medicine; Referring Provider Obstetrics & Gynecology; Visit Provider Obstetrics & Gynecology
PROC: 0UDB8ZZ Extraction of Endometrium, Via Natural or Artificial Opening Endoscopic (ICD-10-PCS; CPT 58558; principal; 2025-01-18 10:00)
DX: N95.0 Postmenopausal bleeding (principal); L73.2 Hidradenitis suppurativa; L02.214 Cutaneous abscess of groin; E78.00 Pure hypercholesterolemia, unspecified; I10 Essential (primary) hypertension; R93.89 Abnormal findings on diagnostic imaging of other specified body structures
CPT/HCPCS: 58558; 00952; 36415; 80053; 85027; 86850; 86900; 86901; 88305; 93005; A4216; J2405

== ENCOUNTER 2025-04-18 09:15 | Outpatient (RCR) | payer MEDICARE, OTHER, SELFPAY ==
[2025-04-11 14:30] VITALS: BP 140/74; PULSE 65; RESP 14; TEMP 35.4
[2025-04-18 09:30] VITALS: BP 119/61; PULSE 64; RESP 18; TEMP 36.4
== END 2025-04-25 23:59 | disposition home or self-care (01) ==
LOC: WC 09:15
PROVIDERS: PCP Family Medicine; Referring Provider Surgery Plastic and Reconstructive Surgery; Visit Provider Surgery Plastic and Reconstructive Surgery
DX: L98.492 Non-pressure chronic ulcer of skin of other sites with fat layer exposed (principal); L73.2 Hidradenitis suppurativa; E78.00 Pure hypercholesterolemia, unspecified; R32 Unspecified urinary incontinence; R63.4 Abnormal weight loss; I10 Essential (primary) hypertension; M10.9 Gout, unspecified; Z96.649 Presence of unspecified artificial hip joint; Z79.890 Hormone replacement therapy; Z79.899 Other long term (current) drug therapy
CPT/HCPCS: 11042; 11102; 87070; 87075; 87077; 87186; 87205; 88305; 88312; 99213; 99214; G0463

== ENCOUNTER → 2025-04-18 | Outpatient (CLI) | payer MEDICARE, OTHER, SELFPAY ==
--- NOTE | 2025-04-18 08:15 | BI_ITS ---
EXAM: SCRN MAMM (CAD)W/BONIFACIO BILAT DATE: 04/18/2025 CLINICAL HISTORY: F, Age 75 y/o , SCREENING BILATERAL MAMMOGRAM No family history. BREAST CANCER RISK ASSESSMENT: Not assessed. TECHNIQUE: SCRN MAMM (CAD)W/BONIFACIO BILAT COMPARISON: Prior exam(s) dated April 18, 2021.. FINDINGS: TISSUE DENSITY: The breast tissue is almost entirely fatty. Bilateral Breast Mammographic Findings: No significant masses, calcifications or other abnormalities are identified. No suspicious masses, areas of developing architectural distortion, or suspicious calcifications. There has been no significant interval change. BI/SCRN MAMM (CAD)W/BONIFACIO BILAT IMPRESSION: Stable examination. OVERALL FINAL ASSESSMENT BI-RADS 1: NEGATIVE. RECOMMEND ANNUAL MAMMOGRAPHIC SCREENING. RECOMMENDATION: Routine annual follow-up in 1 Year A letter with findings and recommendations will be mailed to the patient. Reading Location: [id number]
== END | disposition home or self-care (01) ==
LOC: OPBI 08:15
PROVIDERS: PCP Family Medicine; Referring Provider Surgery Plastic and Reconstructive Surgery; Visit Provider Surgery Plastic and Reconstructive Surgery
DX: Z12.31 Encounter for screening mammogram for malignant neoplasm of breast (principal)
CPT/HCPCS: 77063; 77067

== ENCOUNTER → 2025-04-21 | Outpatient (CLI) | payer MEDICARE, OTHER, SELFPAY | END | disposition home or self-care (01) | PROVIDERS: PCP Family Medicine; Referring Provider Obstetrics & Gynecology; Visit Provider Obstetrics & Gynecology | DX: N76.4 Abscess of vulva (principal) | CPT/HCPCS: 87070; 87077; 87186; 87205 ==

== ENCOUNTER → 2025-04-26 | Outpatient (CLI) | payer MEDICARE, OTHER, SELFPAY ==
[2025-04-26 13:15] LABS: Anion Gap 14 (5-15); BUN 26 mg/dL (4-19); BUN/Creat Ratio 30.1 RATIO (10-20); Calcium,Total 9.4 mg/dL (7.6-11.0); Carbon Dioxide 20.8 mmol/L (21.0-32.0); Chloride 99 mmol/L (98-108); Glucose 84 mg/dL (70-99); Potassium 4.6 mmol/L (3.3-5.1)
== END | disposition home or self-care (01) ==
PROVIDERS: Internal Medicine; Nurse Practitioner Women's Health; PCP Family Medicine; Referring Provider Obstetrics & Gynecology; Visit Provider Obstetrics & Gynecology
DX: I10 Essential (primary) hypertension (principal); E03.9 Hypothyroidism, unspecified
CPT/HCPCS: 36415; 80048; 84443

== ENCOUNTER → 2025-05-04 | Outpatient (CLI) | payer MEDICARE, OTHER, SELFPAY ==
[2025-05-04 13:40] LABS: AST(SGOT) 21 U/L (<=31); Alanine Aminotransfer ALT/SGPT 22 U/L (<=34); Albumin, Serum 4.2 g/dL (3.4-4.8); Alkaline Phosphatase 82 U/L (35-104); Anion Gap 14 (5-15); BUN 23 mg/dL (4-19); BUN/Creat Ratio 24.7 RATIO (10-20); Calcium,Total 9.6 mg/dL (7.6-11.0); Carbon Dioxide 22.7 mmol/L (21.0-32.0); Chloride 105 mmol/L (98-108); Globulin 2.4 g/dL (2.2-4.2); Glucose 142 mg/dL (70-99); Potassium 3.7 mmol/L (3.3-5.1)
[2025-05-10 14:08] LABS: Testosterone, % Free 2.98 % (0.50-2.80); Testosterone, Free 0.95 ng/dL (0.10-0.85)
== END | disposition home or self-care (01) ==
PROVIDERS: PCP Family Medicine; Referring Provider Obstetrics & Gynecology; Visit Provider Obstetrics & Gynecology
DX: L73.2 Hidradenitis suppurativa (principal); I10 Essential (primary) hypertension; N76.4 Abscess of vulva
CPT/HCPCS: 36415; 80053; 82670; 84402; 84403; 87070; 87077; 87205

== ENCOUNTER 2025-05-13 10:45 | Outpatient (RCR) | payer MEDICARE, OTHER, SELFPAY ==
[2025-05-02 09:51] VITALS: BP 120/68; PULSE 59; RESP 18; TEMP 36.8
--- NOTE | 2025-05-02 11:32 | PN.PCM_ITS ---
History of Present Illness Date of Service: 05/02/25 Chief Complaint: Nonhealing ulcers of groin area History of Wound: HPI per nursing Mónica is a pleasant 74 yo woman that presents to the wound healing center for evaluation and treatment recommendations for nonhealing ulcers that are in her bilateral groin folds that have been present and waxed and waned in severity for 12 years. She reports that she has also had urinary incontinence that started around that time as well and she has been wearing disposable incontinence pads daily since then. She has never been on any medication for urinary incontinence and has a urology appointment scheduled for the end of this month but does not know who she is seeing. She reports that the areas bleed and drain pratt fluid intermittently. At some points there have been 5 spots of blood and currently there is about 2. She is using Zinc oxide to the areas a few times/day. She uses rubbing alcohol on her areas after each restroom visit. She has been advised to use topical antibiotic ointment by her PCP but it roche. She is otherwise uncomplicated and does not have history of diabetes. She denies fever, chills, erythema, increased drainage and odor. She has had some cognitive changes over the last 6 months post her hip replacement surgery which may be due to dementia or anesthesia reaction. Her brother Marshall accompanies her today and helps somewhat with the history." HPI from encounter, 11 April 2025: The patient is a 75-year-old female presenting with hidradenitis suppurativa and a possible Bartholin cyst. The hidradenitis suppurativa has been persistent, with lesions that fluctuate in size but do not resolve completely. The patient r eports minimal drainage from the lesions, and there is concern about potential infection. 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 The patient has been using Kotex pads due to bladder issues, which may have exacerbated the condition. The patient also reports a painful swelling in the right labium majora, suspected to be a Bartholin cyst. She has not previously consulted an [facility] for this issue. The patient has experienced significant unintentional weight loss, losing 70 pounds over the last few months, which is concerning. She has not yet undergone a mammogram, although it is planned, and she had a colonoscopy three years ago, with a recommendation for a repeat in five years. Attestation: Documentation on this patient encounter was supported using ambient scribe technology/ voice AI technology. The patient consented to recording for the purpose of documenting the encounter. Provider reviewed content of the generated note prior to signature. Subjective Subjective The patient is a 75-year-old female presenting with wound care management and evaluation of a HS in the groin. The patient has been performing daily dressing changes for her groin wounds. There is some persistent HS in the groin and the HS v Bartholin cyst near introitus/vagina is still persistent and painful. She tried the antibiotics given to her by the REGISTERED PRIVATE DUTY NURSE from [facility] office. She has not seen a SECTION SUPERVISOR surgeon. 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 The wounds are 1 x 1 cm and are in the inguinal fold. - Genitourinary: Persistent cyst near introitus appears inflamed and painful, potentially a Bartholin cyst (right side). Const Negative for alert, oriented x3, no apparent distress or well nourished Debridement Note Debridement Note Wound debrided: Left groin hidradenitis wound Laterality: Left Wound Grade/Stage: Stage III Type of Debridement: Excisional debridement Anesthesia Used: 4% Lidocaine Solution Depth: in the subcutaneous layer Percentage of wound debrided: 100 Instrument Used: 7mm curette Tissue Removed: Necrotic fibrinous exudate and hidradenitis purulence Severity: Fat Layer Exposed Amount of bleeding with debridement: Moderate Bleeding Controlled with: Compression and gauze Patient tolerated procedure: Patient tolerated procedure well Post-Debridement Measurements and Additional Note: Post-Debridement Measurements/Treatment SHAYNA - Nurse 1 - General Ulcer Assessment Start: 05/02/25 09:50 Freq: Status: Active Protocol: JOSE ELIAS Activity Type Activity Date Activity User E-sign Co-sign Detail Recorded Client Recorded Date Recorded By Document 05/02/25 09:51 DL [id number] 05/02/25 10:00 DL 05/02/25 09:51 WC - Today's Visit Information Type of service Follow-up Visit (Physician/INSERTING MACHINE OPERATOR ) Arrival Mode Ambulatory Transfer Assistance None Patient Identification Verified (Name & Yes ) Patient Requires Transmission-Based No Precautions Vital Signs Temperature (97.8 F-99.1 F) 98.2 F Temperature Source Temporal Pulse Rate (60-100) 59 L Pulse Location Monitor Respiratory Rate (12-18) 18 Respiratory rate source Observation Blood Pressure (90/60-120/80) 120/68 Blood Pressure Mean (mm Hg) 85 Source Monitor History Since Last Visit- (Skip if this is Patient's initial visit) Have you changed medications since your No last visit? Any new allergies or adverse reactions No Had a fall/change in ADL's that may No increase risk of falls Signs or symptoms of abuse and/or No neglect since last visit Have you been in the hospital since your No last visit? Has dressing in place as prescribed Yes Has compression in place as prescribed N/A Has offloadiing in place as prescribed N/A Experienced any changes in pain level or No management Pain Scale: 0-10 Numeric Is Patient Pain Free? Yes - Nurse 1 - General Ulcer Measurement Start: 05/02/25 09:50 Freq: Status: Active Protocol: Activity Type Activity Date Activity User E-sign Co-sign Detail Recorded Client Recorded Date Recorded By Document 05/02/25 09:51 DL [id number] 05/02/25 10:00 DL 05/02/25 09:51 Wound Center Nurse 1 2. R groin -Current Size (cm) - Length 0.1 -Current Size (cm) - Width 0.1 -Current Size (cm) - Depth 0.1 -Total Square Cm 0.01 -Exudate Amt Small -Exudate Type Serosanguineous -Wound Margin Indistinct, Non -Visible -Granulation Amt Large (67-100%) -Granulation Quality Red -Necrosis Amt None Present (0 %) -Structure Exposed N/A -Texture (Carol-wound Skin Appearance) Scarring -Moisture (Carol-wound Skin Appearance) No Abnormality -Color (Carol-wound Skin Appearance) No Abnormality -Temperature (Carol-wound Skin No Abnormality Appearance) (Pt Warm) -Tenderness on Palpation (Carol-wound No Skin Appearance) -Foul Odor after Cleansing No -Anesthetic Used 5% Lidocaine Gel 1. L groin -Current Size (cm) - Length 0.1 -Current Size (cm) - Width 0.1 -Current Size (cm) - Depth 0.1 -Total Square Cm 0.01 -Exudate Amt Small -Exudate Type Serosanguineous -Wound Margin Indistinct, Non -Visible -Granulation Amt Large (67-100%) -Granulation Quality [place] -Necrosis Amt None Present (0 %) -Texture (Carol-wound Skin Appearance) Scarring -Moisture (Carol-wound Skin Appearance) No Abnormality -Color (Carol-wound Skin Appearance) No Abnormality -Temperature (Carol-wound Skin No Abnormality Appearance) (Pt Warm) -Tenderness on Palpation (Carol-wound No Skin Appearance) -Ulcer Cleansing Soap and Water -Foul Odor after Cleansing No WC - Nurse 2 - General Ulcer CM Notes Start: 05/02/25 09:50 Freq: Status: Active Protocol: Activity Type Activity Date Activity User E-sign Co-sign Detail Recorded Client Recorded Date Recorded By Document 05/02/25 10:20 DS [id number] 05/02/25 10:21 DS 05/02/25 10:20 Wound Center Nurse 2 2. R groin -Time 10:20 -Correct Patient Yes -Correct Side, Site, Position Yes -Correct Procedure Yes -Procedure Performed Yes -Type of Procedure Debridement -Clinical Debridement Subcutaneous -Tissue Removed Subcutaneous -Post Debridement (cm) - Length 0.5 -Post Debridement (cm) - Width 0.5 -Post Debridement (cm) - Depth 0.1 -Total Square (Post) (cm) 0.25 -Area of Debridement (cm) - Length 0.5 -Area of Debridement (cm) - Width 0.5 -Total Square (Area) (cm) 0.25 -Tunneling No -Undermining/Tunneling No -Circular Undermining No -Wound/Ulcer Outcome Not Healed -Ulcer Cleansing Rinsed/ Irrigated with Saline -Foul Odor after Cleansing No -Bioengineered Tissue No -Bleeding Controlled with Pressure -Treatment Response Procedure Tolerated Well -Debridement - Subq, 1st 20sq cm Yes 1. L groin -Time 10:21 -Correct Patient Yes -Correct Side, Site, Position Yes -Correct Procedure Yes -Procedure Performed Yes -Type of Procedure Debridement -Clinical Debridement Subcutaneous -Tissue Removed Subcutaneous -Post Debridement (cm) - Length 1.0 -Post Debridement (cm) - Width 1.0 -Post Debridement (cm) - Depth 0.1 -Total Square (Post) (cm) 1.00 -Area of Debridement (cm) - Length 1.0 -Area of Debridement (cm) - Width 1.0 -Total Square (Area) (cm) 1.00 -Tunneling No -Undermining/Tunneling No -Circular Undermining No -Wound/Ulcer Outcome Not Healed -Ulcer Cleansing Rinsed/ Irrigated with Saline -Foul Odor after Cleansing No -Bioengineered Tissue No -Bleeding Controlled with Pressure -Treatment Response Procedure Tolerated Well -Debridement - Subq, 1st 20sq cm No Pain Scale: 0-10 Numeric Is Patient Pain Free? Yes - Nurse 3 - General Ulcer D/C NN Start: 05/02/25 09:50 Freq: Status: Active Protocol: Activity Type Activity Date Activity User E-sign Co-sign Detail Recorded Client Recorded Date Recorded By Document 05/02/25 10:54 DL [id number] 05/02/25 10:55 DL 05/02/25 10:54 Wound Care Center Nurse 3 2. R groin -Ulcer Cleansing Soap and Water -Foul Odor after Cleansing No -Primary Dressing Applied Aquacel AG 4x4 -Primary Dressing Covered/Secured with Dry Gauze, Secured with Tape -Aquacel AG 4x4 1 1. L groin -Ulcer Cleansing Soap and Water -Foul Odor after Cleansing No -Other Dressing Aquacel AG -Primary Dressing Covered/Secured with Dry Gauze, Secured with Tape Treatment Response Procedure Tolerated Well Pain Scale: 0-10 Numeric Is Patient Pain Free? Yes - Visit Discharge Discharge Condition Stable Ambulatory Status Ambulatory,Cane Transportation Private Auto Facility Type Home Health Orders Sent Yes Assessment/Plan Assessment/Plan (1) Skin ulcer of right groin with fat layer exposed: CODE(S): L98.492 - Non-pressure chronic ulcer of skin of other sites with fat layer exposed (2) Ulcer of left groin with fat layer exposed: CODE(S): L98.492 - Non-pressure chronic ulcer of skin of other sites with fat layer exposed (3) Hidradenitis suppurativa: CODE(S): L73.2 - Hidradenitis suppurativa PLAN: Plan 1. Hidradenitis suppurativa Continue Aquacel Ag dressing changes to the groin (groin hidradenitis is very small at 1 x 1 cm) 2. Vaginal wounds from cyst/hidradenitis The patient reports a painful swelling on the right vulva near introitus. A referral to an [facility] is planned for further evaluation and management of the suspected Bartholin cyst. I spoke with the [facility] office and she is going to see the SECTION SUPERVISOR surgeon for management of this problem. 3. Unintentional weight loss The patient has experienced significant weight loss over the past few months. A mammogram is planned, and further evaluation of the weight loss is necessary to rule out underlying causes. I have ordered a mammogram to start. - Clean and pack the wounds daily with Aquacel Ag as instructed (daily remove and replace) - Follow up with the electrical system specialist for potential Kenalog injections and doxycycline treatment. - Schedule an appointment with an [facility] for evaluation as noted above - Plan for a mammogram to investigate the cause of weight loss. Follow-up in 2 weeks
[2025-05-13 10:57] VITALS: BP 117/64; PULSE 70; RESP 18; TEMP 36.3
--- NOTE | 2025-05-13 15:44 | PCM.WC.HP ---
History of Present Illness Date of Service: 05/13/25 Chief Complaint: Nonhealing ulcers of groin area History of Wound: Mónica is a pleasant 75 yo woman that presents to the wound healing center for evaluation and treatment recommendations for nonhealing ulcers that are in her bilateral groin folds that have been present and waxed and waned in severity for 13 years. She reports that she has also had urinary incontinence that started around that time as well and she has been wearing disposable incontinence pads daily since then. She reports that the areas bleed and drain pratt fluid intermittently. At some points there have been 5 spots of blood and currently there is about 2. She is otherwise uncomplicated and does not have history of diabetes. She denies fever, chills, erythema, increased drainage and odor. She has some cognitive impairment which is due to dementia. Her brother Marshall accompanies her today and helps somewhat with the history and reinforcement of instructions. She has been being seen by Dr. Eugene and referred for consultation regarding any medical management recommendations. She was evaluated by [facility] for possible Bartholin cyst but this was not felt to be an underlying cause. She sees Dr. Townsend for dermatology and is on Spironolactone. I saw her previously in July 2024 for similar complaints and she was referred to urology for urinary incontinence evaluation. 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 [facility] Medical History Post-menopausal Depression Anxiety Dementia Open wound Arthritis Non-smoker Shortness of breath on exertion Urinary incontinence Gout Hypothyroid High cholesterol HTN (hypertension) Home Medications Medication Instructions Recorded Last Taken Type levothyroxine 137 mcg tablet 150 mcg PO DAILY thyroid 01/06/20 01/05/20 History lisinopril 10 mg tablet 40 mg PO DAILY blood pressure 01/06/20 01/04/20 History amlodipine 10 mg tablet (Norvasc) 10 mg PO DAILY 08/06/24 Unknown History furosemide 40 mg tablet (Lasix) 40 mg PO DAILY 08/06/24 Unknown History pravastatin 10 mg tablet 10 mg PO QHS 08/06/24 Unknown History allopurinol 300 mg tablet 300 mg PO QDAY 12/10/24 Unknown History mecobalamin (vitamin B12) 1,000 1,000 mcg PO QDAY 12/10/24 Unknown History mcg chewable tablet potassium chloride 20 mEq 20 meq PO QDAY 12/10/24 Unknown History tablet,extended release donepezil 5 mg tablet 5 mg PO DAILY 01/04/25 Unknown History gabapentin 300 mg capsule 300 mg PO BID PRN pain (scale 05/04/25 Unknown Rx score 4-6) #30 caps spironolactone 100 mg tablet 100 mg PO QDAY #30 tabs 05/04/25 Unknown Rx Allergy/AdvReac Type Severity Reaction Status Date / Time Latex, Natural Rubber Allergy Mild Rash Verified 05/04/25 09:41 Family History Father Colon cancer Mother Hypertension Surgical History S/P D&C (status post dilation and curettage) Status post amputation of finger S/P bladder repair History of left hip replacement H/O thyroidectomy History of right hip replacement Social History Smoking Status: Never smoker additional social history: Single ROS Constitutional Constitutional: Denies chills, fatigue or fever(s) Eyes Eyes: Denies blurry vision, change in vision or loss of vision ENT HEENT: Denies dysphagia, hearing loss or sore throat Cardiovascular Cardiovascular: Denies chest pain, edema or palpitations Respiratory/Chest Respiratory/Chest: Denies dry cough, dyspnea, dyspnea on exertion, productive cough or wheezing Gastrointestinal Gastrointestinal: Denies diarrhea, nausea or vomiting Genitourinary Genitourinary: Denies dysuria or polyuria Musculoskeletal Musculoskeletal: Denies arthralgias, joint stiffness or muscle weakness Integumentary Integumentary: Reports erythema and wounds Neurologic Neurologic: Denies dizziness, memory loss or weakness Psychiatric Psychiatric: Denies homicidal ideation or suicidal ideation Endocrine Endocrinology: Denies polydipsia, polyphagia or polyuria Hematologic/Lymphatic Hematologic/Lymphatic: Denies easy bleeding or easy bruising Allergic/Immunologic Allergic/Immunologic: Denies throat swelling, tongue swelling or urticaria Vital Signs Vital Signs Vital Signs: 05/13/25 10:57 Temperature 97.4 F L Temperature Source Temporal Pulse Rate 70 Respiratory Rate 18 Blood Pressure 117/64 Blood Pressure Mean 81 Blood Pressure Source Monitor Physical Exam Const alert, no apparent distress and healthy appearing General Appearance: cooperative and comfortable Nutritional Appearance: obese HEENT normocephalic and head/scalp atraumatic Resp normal respiratory effort Effort and Inspection: able to speak in complete sentences Cardio regular rate and regular rhythm Skin Skin Narrative: hypertrophic thickened skin of creases of groin bilaterally with some open areas that appear to be cystic consistent with hidradenitis, minimal purulent drainage and no slough present, right labia enlarged and swollen with purulent drainage expressed from multiple openings Wounds: wounds noted Wound Narrative: as in clinical panel Neuro no focal motor deficits Psych mental status grossly normal, thought process normal, cooperative and affect normal Debridement Note Debridement Note Wound debrided: Left groin hidradenitis wound Laterality: Left No debridement was completed: No debridement was completed today Post-Debridement Measurements and Additional Note: Post-Debridement Measurements/Treatment - Nurse 1 - General Ulcer Assessment Start: 05/02/25 09:50 Freq: Status: Active Protocol: [email or web address].JOSE ANGEL Activity Type Activity Date Activity User E-sign Co-sign Detail Recorded Client Recorded Date Recorded By Document 05/02/25 09:51 DL [id number] 05/02/25 10:00 DL Document 05/13/25 10:57 DL [id number] 05/13/25 11:03 DL 05/02/25 05/13/25 09:51 10:57 - Today's Visit Information Type of service Follow-up Visit Follow-up Visit (Physician/HULLER OPERATOR (Physician/HULLER OPERATOR ) ) Arrival Mode Ambulatory Ambulatory,Cane Transfer Assistance None None Patient Identification Verified (Name & Yes Yes ) Patient Requires Transmission-Based No No Precautions Vital Signs Temperature (97.8 F-99.1 F) 98.2 F 97.4 F L Temperature Source Temporal Temporal Pulse Rate (60-100) 59 L 70 Pulse Location Monitor Monitor Respiratory Rate (12-18) 18 18 Respiratory rate source Observation Blood Pressure (90/60-120/80) 120/68 117/64 Blood Pressure Mean 85 81 Source Monitor Monitor History Since Last Visit- (Skip if this is Patient's initial visit) Have you changed medications since your No No last visit? Any new allergies or adverse reactions No No Had a fall/change in ADL's that may No No increase risk of falls Signs or symptoms of abuse and/or No No neglect since last visit Have you been in the hospital since your No No last visit? Has dressing in place as prescribed Yes Yes Has compression in place as prescribed N/A N/A Has offloadiing in place as prescribed N/A N/A Experienced any changes in pain level or No No management Pain Scale: 0-10 Numeric Is Patient Pain Free? Yes Yes WC - Nurse 1 - General Ulcer Measurement Start: 05/02/25 09:50 Freq: Status: Active Protocol: Activity Type Activity Date Activity User E-sign Co-sign Detail Recorded Client Recorded Date Recorded By Document 05/02/25 09:51 DL [id number] 05/02/25 10:00 DL Document 05/13/25 10:57 DL [id number] 05/13/25 11:03 DL 05/02/25 05/13/25 09:51 10:57 Wound Center Nurse 1 2. R groin -Current Size (cm) - Length 0.1 0.1 -Current Size (cm) - Width 0.1 0.1 -Current Size (cm) - Depth 0.1 0.1 -Total Square Cm 0.01 0.01 -Exudate Amt Small Medium -Exudate Type Serosanguineous Yellow/Green -Wound Margin Indistinct, Non Fibrotic Scar, -Visible Thickened Scar -Granulation Amt Large (67-100%) None Present (0 %) -Granulation Quality Red -Necrosis Amt None Present (0 None Present (0 %) %) -Structure Exposed N/A N/A -Texture (Carol-wound Skin Appearance) Scarring Localized Edema ,Scarring -Moisture (Carol-wound Skin Appearance) No Abnormality No Abnormality -Color (Carol-wound Skin Appearance) No Abnormality No Abnormality -Temperature (Carol-wound Skin No Abnormality No Abnormality Appearance) (Pt Warm) (Pt Warm) -Tenderness on Palpation (Carol-wound No Skin Appearance) -Ulcer Cleansing Soap and Water -Foul Odor after Cleansing No No -Anesthetic Used 5% Lidocaine 4% Lidocaine Gel Solution 1. L groin -Current Size (cm) - Length 0.1 0.1 -Current Size (cm) - Width 0.1 0.1 -Current Size (cm) - Depth 0.1 0.1 -Total Square Cm 0.01 0.01 -Exudate Amt Small Small -Exudate Type Serosanguineous Serosanguineous -Wound Margin Indistinct, Non Flat & Intact -Visible -Granulation Amt Large (67-100%) None Present (0 %) -Granulation Quality [place] -Necrosis Amt None Present (0 None Present (0 %) %) -Structure Exposed N/A -Texture (Carol-wound Skin Appearance) Scarring Localized Edema ,Scarring -Moisture (Carol-wound Skin Appearance) No Abnormality No Abnormality -Color (Acrol-wound Skin Appearance) No Abnormality No Abnormality -Temperature (Carol-wound Skin No Abnormality No Abnormality Appearance) (Pt Warm) (Pt Warm) -Tenderness on Palpation (Carol-wound No No Skin Appearance) -Ulcer Cleansing Soap and Water -Foul Odor after Cleansing No No -Anesthetic Used 4% Lidocaine Solution WC - Nurse 2 - General Ulcer CM Notes Start: 05/02/25 09:50 Freq: Status: Active Protocol: Activity Type Activity Date Activity User E-sign Co-sign Detail Recorded Client Recorded Date Recorded By Document 05/02/25 10:20 DS [id number] 05/02/25 10:21 DS Document 05/13/25 12:15 DS [id number] 05/13/25 12:16 DS 05/02/25 05/13/25 10:20 12:15 Wound Center Nurse 2 2. R groin -Time 10:20 12:16 -Correct Patient Yes Yes -Correct Side, Site, Position Yes Yes -Correct Procedure Yes -Procedure Performed Yes No -Type of Procedure Debridement -Clinical Debridement Subcutaneous -Tissue Removed Subcutaneous -Post Debridement (cm) - Length 0.5 -Post Debridement (cm) - Width 0.5 -Post Debridement (cm) - Depth 0.1 -Total Square (Post) (cm) 0.25 -Area of Debridement (cm) - Length 0.5 -Area of Debridement (cm) - Width 0.5 -Total Square (Area) (cm) 0.25 -Tunneling No -Undermining/Tunneling No -Circular Undermining No -Wound/Ulcer Outcome Not Healed Not Healed -Ulcer Cleansing Rinsed/ Irrigated with Saline -Foul Odor after Cleansing No -Bioengineered Tissue No -Bleeding Controlled with Pressure -Treatment Response Procedure Tolerated Well -Debridement - Subq, 1st 20sq cm Yes 1. L groin -Time 10:21 12:16 -Correct Patient Yes Yes -Correct Side, Site, Position Yes Yes -Correct Procedure Yes -Procedure Performed Yes No -Type of Procedure Debridement -Clinical Debridement Subcutaneous -Tissue Removed Subcutaneous -Post Debridement (cm) - Length 1.0 -Post Debridement (cm) - Width 1.0 -Post Debridement (cm) - Depth 0.1 -Total Square (Post) (cm) 1.00 -Area of Debridement (cm) - Length 1.0 -Area of Debridement (cm) - Width 1.0 -Total Square (Area) (cm) 1.00 -Tunneling No -Undermining/Tunneling No -Circular Undermining No -Wound/Ulcer Outcome Not Healed Not Healed -Ulcer Cleansing Rinsed/ Irrigated with Saline -Foul Odor after Cleansing No -Bioengineered Tissue No -Bleeding Controlled with Pressure -Treatment Response Procedure Tolerated Well -Debridement - Subq, 1st 20sq cm No Pain Scale: 0-10 Numeric Is Patient Pain Free? Yes Yes - Nurse 3 - General Ulcer D/C NN Start: 05/02/25 09:50 Freq: Status: Active Protocol: Activity Type Activity Date Activity User E-sign Co-sign Detail Recorded Client Recorded Date Recorded By Document 05/02/25 10:54 DL [id number] 05/02/25 10:55 DL Document 05/13/25 12:31 DL [id number] 05/13/25 12:32 DL 05/02/25 05/13/25 10:54 12:31 Wound Care Center Nurse 3 2. R groin -Ulcer Cleansing Soap and Water Rinsed/ Irrigated with Saline -Foul Odor after Cleansing No No -Primary Dressing Applied Aquacel AG 4x4 Hysept -Primary Dressing Covered/Secured with Dry Gauze, Dry Gauze, Secured with Secured with Tape Tape -Aquacel AG 4x4 1 -Hysept 1 1. L groin -Ulcer Cleansing Soap and Water Rinsed/ Irrigated with Saline -Foul Odor after Cleansing No No -Other Dressing Aquacel AG Dakins Moist gauze -Primary Dressing Covered/Secured with Dry Gauze, Dry Gauze, Secured with Secured with Tape Tape Treatment Response Procedure Procedure Tolerated Well Tolerated Well Pain Scale: 0-10 Numeric Is Patient Pain Free? Yes No WC - Visit Discharge Discharge Condition Stable Stable Ambulatory Status Ambulatory,Cane Ambulatory Transportation Private Auto Private Auto Facility Type Home Health Orders Sent Yes Additional Wound Wound debrided: right hidradenitis ulcer Laterality: Right Operative Diagnosis: No debridement completed today Assessment/Plan Assessment/Plan (1) Skin ulcer of right groin with fat layer exposed: CODE(S): L98.492 - Non-pressure chronic ulcer of skin of other sites with fat layer exposed (2) Ulcer of left groin with fat layer exposed: CODE(S): L98.492 - Non-pressure chronic ulcer of skin of other sites with fat layer exposed (3) Hidradenitis suppurativa: CODE(S): L73.2 - Hidradenitis suppurativa (4) Hypothyroidism: CODE(S): E03.9 - Hypothyroidism, unspecified QUALIFIERS: Hypothyroidism type: unspecified Qualified Code(s): E03.9 - (5) HTN (hypertension): CODE(S): I10 - Essential (primary) hypertension QUALIFIERS: Hypertension type: essential hypertension Qualified Code(s): I10 - Essential (primary) hypertension (6) Obesity: CODE(S): E66.9 - Obesity, unspecified QUALIFIERS: Obesity type: due to excess calories Obesity classification: adult class 2 (BMI 35 - 39.9) Serious obesity comorbidity presence: without serious comorbidity Body mass index: BMI 35.0-35.9 Qualified Code(s): E66.812 - Obesity, class 2; E66.09 - Other obesity due to excess calories; Z68.35 - Body mass index [BMI] 35.0-35.9, adult PLAN: Plan PLAN: Evaluation performed today in clinic as annotated above. At home wound-care instructions: The patient will wash with antibacterial soap and water and then apply Dakins wet to dry dressings. Encouraged her to use baby wipes instead of rubbing alcohol to clean skin after using bathroom. Keep dressing clean and dry. Will consider having her use Acetic acid rinse to her groin area twice daily if Dakins wet to dry is not effective. Reiterated to both the patient and her brother, Marshall, that the hidradenitis is a chronic condition and there is a spectrum of treatments but it will not be cured and will involve periodic flare ups. We discussed referral to dermatology to discuss biologic treatment options and that surgical excision of the HS is also an option for treatment. Will discuss her case with Dr. Townsend and Dr. Eugene and also offered referral for surgical opinion to Dr. Albrecht in [place] as he has treated several of my HS patients. Discussed the importance of treating the incontinence and to follow up as scheduled with urology regarding work up and options for treatment. Also discussed trying ABD pads in her underwear instead of incontinence pads due to the irritation that plastic may cause to her skin or trying reusable, washable cotton underpads. Educated patient on the chronicity of hidradenitis and encouraged continued weight loss. Off-loading: The patient was instructed to avoid pressure and friction on the affected areas. Reposition every 2 hours at minimum. Avoid prolonged standing and/or dangling of legs. When seated, feet should be elevated at chest level. Frequent ambulation is encouraged. Diet: Patient encouraged to increase protein intake while taking caution to avoid high carbohydrate and/or sugar intake. Labs/cultures/imaging: Follow-up: Will have her return in 2 weeks. She was advised to call or go to ER if increased drainage, pain, bleeding or worsening.
== END 2025-05-26 23:59 | disposition home or self-care (01) ==
LOC: WC 10:45
PROVIDERS: PCP Family Medicine; Referring Provider Surgery Plastic and Reconstructive Surgery; Visit Provider Surgery Plastic and Reconstructive Surgery
DX: L98.492 Non-pressure chronic ulcer of skin of other sites with fat layer exposed (principal); F03.90 Unspecified dementia, unspecified severity, without behavioral disturbance, psychotic disturbance, mood disturbance, and anxiety; L73.2 Hidradenitis suppurativa; Z79.899 Other long term (current) drug therapy; Z82.49 Family history of ischemic heart disease and other diseases of the circulatory system; I10 Essential (primary) hypertension; R41.89 Other symptoms and signs involving cognitive functions and awareness; E66.09 Other obesity due to excess calories; E66.812 Obesity, class 2; M10.9 Gout, unspecified; Z96.649 Presence of unspecified artificial hip joint; E78.00 Pure hypercholesterolemia, unspecified; R63.4 Abnormal weight loss
CPT/HCPCS: 11042; 99213; G0463

== ENCOUNTER 2025-06-10 10:30 | Outpatient (RCR) | payer MEDICARE, OTHER, SELFPAY ==
[2025-05-27 10:52] VITALS: BP 112/55; PULSE 68; RESP 16; TEMP 36
--- NOTE | 2025-05-27 13:34 | PN.PCM_ITS ---
History of Present Illness Date of Service: 05/27/25 Chief Complaint: Nonhealing ulcers of groin area History of Wound: Mónica is a pleasant 75 yo woman that presents to the wound healing center for evaluation and treatment recommendations for nonhealing ulcers that are in her bilateral groin folds that have been present and waxed and waned in severity for 13 years. She reports that she has also had urinary incontinence that started around that time as well and she has been wearing disposable incontinence pads daily since then. She reports that the areas bleed and drain pratt fluid intermittently. At some points there have been 5 spots of blood and currently there is about 2. She is otherwise uncomplicated and does not have history of diabetes. She denies fever, chills, erythema, increased drainage and odor. She has some cognitive impairment which is due to dementia. Her brother Marshall accompanies her today and helps somewhat with the history and reinforcement of instructions. She has been being seen by Dr. Eugene and referred for consultation regarding any medical management recommendations. She was evaluated by CLINICAL PATHOLOGIST for possible Bartholin cyst but this was not felt to be an underlying cause. She sees Dr. Townsend for dermatology and is on Spironolactone. I saw her previously in July 2024 for similar complaints and she was referred to urology for urinary incontinence evaluation. 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 Subjective Subjective Mónica returns today for evaluation and treatment of hidradenitis suppurativa. She has been using Dakins solution wet to dry dressings to the groin areas and has had improvement in the drainage but still has discomfort. She is a poor historian. She does deny increased draining, bleeding or redness. Objective Data Objective Data Vital Signs: Vital Signs Temp Pulse Resp BP O2 Del Method 96.8 F L 68 16 112/55 L Room Air 05/27/25 10:52 05/27/25 10:52 05/27/25 10:52 05/27/25 10:52 05/27/25 10:52 Oxygen Delivery Method Room Air Physical Exam Const alert, no apparent distress and healthy appearing General Appearance: cooperative and comfortable Nutritional Appearance: obese HEENT normocephalic and head/scalp atraumatic Resp normal respiratory effort Effort and Inspection: able to speak in complete sentences Cardio regular rate and regular rhythm Skin Skin Narrative: hypertrophic thickened skin of creases of groin bilaterally with some open areas that appear to be cystic consistent with hidradenitis, minimal purulent drainage and no slough present, right labia enlarged and swollen with purulent drainage expressed from multiple openings Wounds: wounds noted Wound Narrative: as in clinical panel Neuro no focal motor deficits Psych mental status grossly normal, thought process normal, cooperative and affect normal Debridement Note Debridement Note Wound debrided: Left groin hidradenitis wound Laterality: Left No debridement was completed: No debridement was completed today Post-Debridement Measurements and Additional Note: Post-Debridement Measurements/Treatment - Nurse 1 - General Ulcer Assessment Start: 05/27/25 10:51 Freq: Status: Active Protocol: JOSE ELIAS Activity Type Activity Date Activity User E-sign Co-sign Detail Recorded Client Recorded Date Recorded By Document 05/27/25 10:52 NIMESH [id number] 05/27/25 11:05 [email or web address] 05/27/25 10:52 WC - Today's Visit Information Type of service Follow-up Visit (Physician/LAUNCH [facility]EWARD ) Arrival Mode Ambulatory Patient Identification Verified (Name & Yes ) Vital Signs Temperature (97.8 F-99.1 F) 96.8 F L Temperature Source Temporal Pulse Rate (60-100) 68 Pulse Location Monitor Respiratory Rate (12-18) 16 Respiratory rate source Observation Oxygen Delivery Method Room Air Blood Pressure (90/60-120/80) 112/55 L Blood Pressure Mean (mm Hg) 74 Source Monitor Position Sitting Blood Pressure Location Left Arm History Since Last Visit- (Skip if this is Patient's initial visit) Have you changed medications since your No last visit? Any new allergies or adverse reactions No Had a fall/change in ADL's that may No increase risk of falls Signs or symptoms of abuse and/or No neglect since last visit Have you been in the hospital since your No last visit? Has dressing in place as prescribed Yes Has compression in place as prescribed N/A Has offloadiing in place as prescribed N/A Experienced any changes in pain level or No management Left Footwear Regular Shoe Right Footwear Regular Shoe Pain Scale: 0-10 Numeric Is Patient Pain Free? Yes SHAYNA Reyes Nurse 1 - General Ulcer Measurement Start: 05/27/25 10:51 Freq: Status: Active Protocol: Activity Type Activity Date Activity User E-sign Co-sign Detail Recorded Client Recorded Date Recorded By Document 05/27/25 10:52 [id number] 05/27/25 11:05 05/27/25 10:52 Wound Center Nurse 1 2. R groin -Exudate Amt Large -Exudate Type Yellow/Green -Wound Margin Distinct, Outline Attached -Granulation Amt Large (67-100%) -Granulation Quality Hyper- granulation,Red -Texture (Carol-wound Skin Appearance) Assessed -Moisture (Carol-wound Skin Appearance) Assessed -Color (Carol-wound Skin Appearance) Assessed, Erythema -Temperature (Carol-wound Skin No Abnormality Appearance) (Pt Warm) -Tenderness on Palpation (Carol-wound No Skin Appearance) -Ulcer Cleansing Rinsed/ Irrigated with Saline -Foul Odor after Cleansing No -Anesthetic Used 5% Lidocaine Gel 1. L groin -Exudate Amt Large -Exudate Type Yellow/Green -Granulation Amt Large (67-100%) -Granulation Quality Hyper- granulation,Red -Texture (Acrol-wound Skin Appearance) Assessed -Moisture (Carol-wound Skin Appearance) Assessed -Color (Carol-wound Skin Appearance) Assessed -Temperature (Carol-wound Skin No Abnormality Appearance) (Pt Warm) -Tenderness on Palpation (Carol-wound No Skin Appearance) -Ulcer Cleansing Rinsed/ Irrigated with Saline -Foul Odor after Cleansing No -Anesthetic Used 5% Lidocaine Gel WC - Nurse 2 - General Ulcer CM Notes Start: 05/27/25 10:51 Freq: Status: Active Protocol: Activity Type Activity Date Activity User E-sign Co-sign Detail Recorded Client Recorded Date Recorded By Document 05/27/25 12:13 [id number] 05/27/25 12:19 05/27/25 12:13 Wound Center Nurse 2 2. R groin -Time 12:13 -Correct Patient Yes -Correct Side, Site, Position Yes -Correct Procedure No -Procedure Performed No -Wound/Ulcer Outcome Not Healed -Ulcer Cleansing Not Cleansed -Foul Odor after Cleansing No -Bleeding Controlled with NA 1. L groin -Time 12:16 -Correct Patient Yes -Correct Side, Site, Position Yes -Correct Procedure No -Procedure Performed No -Tunneling No -Undermining/Tunneling No -Circular Undermining No -Ulcer Cleansing Not Cleansed -Foul Odor after Cleansing No -Bleeding Controlled with NA -Treatment Response Procedure Tolerated Well -Offloading No Pain Scale: 0-10 Numeric Is Patient Pain Free? Yes WC - Nurse 3 - General Ulcer D/C NN Start: 05/27/25 10:51 Freq: Status: Active Protocol: Activity Type Activity Date Activity User E-sign Co-sign Detail Recorded Client Recorded Date Recorded By Document 05/27/25 12:31 KW [id number] 05/27/25 12:32 KW 05/27/25 12:31 Wound Care Center Nurse 3 2. R groin -Other Dressing dakins wet to dry -Primary Dressing Covered/Secured with Dry Gauze, Secured with Tape 1. L groin -Other Dressing dakins wet to dry -Primary Dressing Covered/Secured with Dry Gauze, Secured with Tape Pain Scale: 0-10 Numeric Is Patient Pain Free? Yes WC - Visit Discharge Discharge Condition Stable Ambulatory Status Ambulatory,Cane Transportation Private Auto Medication Reconcilliation completed & No provided to patient/care provider Clinical Summary of Care Provided Yes Additional Wound Wound debrided: right hidradenitis ulcer Laterality: Right Operative Diagnosis: No debridement completed today Assessment/Plan Assessment/Plan (1) Skin ulcer of right groin with fat layer exposed: CODE(S): L98.492 - Non-pressure chronic ulcer of skin of other sites with fat layer exposed (2) Ulcer of left groin with fat layer exposed: CODE(S): L98.492 - Non-pressure chronic ulcer of skin of other sites with fat layer exposed (3) Hidradenitis suppurativa: CODE(S): L73.2 - Hidradenitis suppurativa (4) Hypothyroidism: CODE(S): E03.9 - Hypothyroidism, unspecified QUALIFIERS: Hypothyroidism type: unspecified Qualified Code(s): E03.9 - (5) HTN (hypertension): CODE(S): I10 - Essential (primary) hypertension QUALIFIERS: Hypertension type: essential hypertension Qualified Code(s): I10 - Essential (primary) hypertension (6) Obesity: CODE(S): E66.9 - Obesity, unspecified QUALIFIERS: Obesity type: due to excess calories Obesity class ification: adult class 2 (BMI 35 - 39.9) Serious obesity comorbidity presence: without serious comorbidity Body mass index: BMI 35.0-35.9 Qualified Code(s): E66.812 - Obesity, class 2; E66.09 - Other obesity due to excess calories; Z68.35 - Body mass index [BMI] 35.0-35.9, adult PLAN: Plan PLAN: Evaluation performed today in clinic as annotated above. At home wound-care instructions: The patient will wash with antibacterial soap and water and then apply Dakins we t to dry dressings. Encouraged her to use baby wipes instead of rubbing alcohol to clean skin after using bathroom. Keep dressing clean and dry. Will consider having her use Acetic acid rinse to her groin area twice daily if Dakins wet to dry is not effective. Reiterated to both the patient and her brother, Marshall, that the hidradenitis is a chronic condition and there is a spectrum of treatments but it will not be cured and will involve periodic flare ups. We discussed referral to dermatology to discuss biologic treatment options and that surgical excision of the HS is also an option for treatment. Will discuss her case with Dr. Townsend regarding DMARDs treatment and Dr. Eugene and also offered referral for surgical opinion to Dr. Albrecht in [place] as he has treated several of my HS patients surgically. Discussed the importance of treating the incontinence and to follow up as scheduled with urology regarding work up and options for treatment. Also discussed trying ABD pads in her underwear instead of incontinence pads due to the irritation that plastic may cause to her skin or trying reusable, washable cotton underpads. Educated patient on the chronicity of hidradenitis and encouraged continued weight loss. Off-loading: The patient was instructed to avoid pressure and friction on the affected areas. Reposition every 2 hours at minimum. Avoid prolonged standing and/or dangling of legs. When seated, feet should be elevated at chest level. Frequent ambulation is encouraged. Diet: Patient encouraged to increase protein intake while taking caution to avoid high carbohydrate and/or sugar intake. Labs/cultures/imaging: Follow-up: Will have her return in 2 weeks. She was advised to call or go to ER if increased drainage, pain, bleeding or worsening.
[2025-06-10 10:22] VITALS: BP 101/68; PULSE 78; RESP 16; TEMP 36.8
--- NOTE | 2025-06-10 14:52 | PN.PCM_ITS ---
History of Present Illness Date of Service: 06/10/25 Chief Complaint: Nonhealing ulcers of groin area History of Wound: Mónica is a pleasant 75 yo woman that presents to the wound healing center for evaluation and treatment recommendations for nonhealing ulcers that are in her bilateral groin folds that have been present and waxed and waned in severity for 13 years. She reports that she has also had urinary incontinence that started around that time as well and she has been wearing disposable incontinence pads daily since then. She reports that the areas bleed and drain pratt fluid intermittently. At some points there have been 5 spots of blood and currently there is about 2. She is otherwise uncomplicated and does not have history of diabetes. She denies fever, chills, erythema, increased drainage and odor. She has some cognitive impairment which is due to dementia. Her brother Marshall accompanies her today and helps somewhat with the history and reinforcement of instructions. She has been being seen by Dr. Eugene and referred for consultation regarding any medical management recommendations. She was evaluated by MITER SAWYER for possible Bartholin cyst but this was not felt to be an underlying cause. She sees Dr. Townsend for dermatology and is on Spironolactone. I saw her previously in July 2024 for similar complaints and she was referred to urology for urinary incontinence evaluation. 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 Subjective Subjective Mónica returns today for evaluation and treatment of hidradenitis suppurativa. She has been using Dakins solution wet to dry dressings to the groin areas and has had improvement in the drainage and discomfort. She is a poor historian. She does deny increased draining, bleeding or redness. She does not have an appointment scheduled yet with Dr. Albrecht for surgical consult. Objective Data Objective Data Vital Signs: Vital Signs Temp Pulse Resp BP O2 Del Method 98.2 F 78 16 101/68 Room Air 06/10/25 10:06/10/25 10:06/10/25 10:06/10/25 10:05/27/25 10:52 Oxygen Delivery Method Room Air Physical Exam Const alert, no apparent distress and healthy appearing General Appearance: cooperative and comfortable Nutritional Appearance: obese HEENT normocephalic and head/scalp atraumatic Resp normal respiratory effort Effort and Inspection: able to speak in complete sentences Cardio regular rate and regular rhythm Skin Skin Narrative: hypertrophic thickened skin of creases of groin bilaterally with some open areas that appear to be cystic consistent with hidradenitis, no drainage and no slough present, right labia enlarged and swollen with no current purulent drainage able to be expressed from multiple openings Wounds: wounds noted Wound Narrative: as in clinical panel Neuro no focal motor deficits Psych mental status grossly normal, thought process normal, cooperative and affect normal Debridement Note Debridement Note Wound debrided: Left groin hidradenitis wound Laterality: Left No debridement was completed: No debridement was completed today Post-Debridement Measurements and Additional Note: Post-Debridement Measurements/Treatment - Nurse 1 - General Ulcer Assessment Start: 05/27/25 10:51 Freq: Status: Active Protocol: JOSE ELIAS Activity Type Activity Date Activity User E-sign Co-sign Detail Recorded Client Recorded Date Recorded By Document 05/27/25 10:52 KW [id number] 05/27/25 11:05 KW Document 06/10/25 10:22 DL [id number] 06/10/25 10:30 DL 05/27/25 06/10/25 10:52 10:22 - Today's Visit Information Type of service Follow-up Visit Follow-up Visit (Physician/[employer]ER (Physician/[employer] ) ) Arrival Mode Ambulatory Ambulatory,Cane Transfer Assistance None Patient Identification Verified (Name & Yes Yes ) Patient Requires Transmission-Based No Precautions Vital Signs Temperature (97.8 F-99.1 F) 96.8 F L 98.2 F Temperature Source Temporal Temporal Pulse Rate (60-100) 68 78 Pulse Location Monitor Monitor Respiratory Rate (12-18) 16 16 Respiratory rate source Observation Observation Oxygen Delivery Method Room Air Blood Pressure (90/60-120/80) 112/55 L 101/68 Blood Pressure Mean (mm Hg) 74 79 Source Monitor Position Sitting Blood Pressure Location Left Arm History Since Last Visit- (Skip if this is Patient's initial visit) Have you changed medications since your No No last visit? Any new allergies or adverse reactions No No Had a fall/change in ADL's that may No No increase risk of falls Signs or symptoms of abuse and/or No No neglect since last visit Have you been in the hospital since your No No last visit? Has dressing in place as prescribed Yes Yes Has compression in place as prescribed N/A N/A Has offloadiing in place as prescribed N/A N/A Experienced any changes in pain level or No No management Left Footwear Regular Shoe Right Footwear Regular Shoe Pain Scale: 0-10 Numeric Is Patient Pain Free? Yes Yes WC - Nurse 1 - General Ulcer Measurement Start: 05/27/25 10:51 Freq: Status: Active Protocol: Activity Type Activity Date Activity User E-sign Co-sign Detail Recorded Client Recorded Date Recorded By Document 05/27/25 10:52 KW [id number] 05/27/25 11:05 KW Document 06/10/25 10:22 DL [id number] 06/10/25 10:30 DL 05/27/25 06/10/25 10:52 10:22 Wound Center Nurse 1 2. R groin -Current Size (cm) - Length 0.1 -Current Size (cm) - Width 0.1 -Current Size (cm) - Depth 0.1 -Total Square Cm 0.01 -Exudate Amt Large Medium -Exudate Type Yellow/Green Yellow/Green -Wound Margin Distinct, Indistinct, Non Outline -Visible Attached -Granulation Amt Large (67-100%) Large (67-100%) -Granulation Quality Hyper- [place] granulation,Red -Necrosis Amt None Present (0 %) -Structure Exposed N/A -Texture (Carol-wound Skin Appearance) Assessed Localized Edema ,Scarring -Moisture (Carol-wound Skin Appearance) Assessed Weeping -Color (Carol-wound Skin Appearance) Assessed, No Abnormality Erythema -Temperature (Carol-wound Skin No Abnormality No Abnormality Appearance) (Pt Warm) (Pt Warm) -Tenderness on Palpation (Carol-wound No No Skin Appearance) -Ulcer Cleansing Rinsed/ Soap and Water Irrigated with Saline -Foul Odor after Cleansing No No -Anesthetic Used 5% Lidocaine 5% Lidocaine Gel Gel 1. L groin -Current Size (cm) - Length 0.1 -Current Size (cm) - Width 0.1 -Current Size (cm) - Depth 0.1 -Total Square Cm 0.01 -Exudate Amt Large Medium -Exudate Type Yellow/Green Yellow/Green -Wound Margin Indistinct, Non -Visible -Granulation Amt Large (67-100%) Large (67-100%) -Granulation Quality Hyper- [place] granulation,Red -Necrosis Amt None Present (0 %) -Structure Exposed N/A -Texture (Carol-wound Skin Appearance) Assessed Localized Edema ,Scarring -Moisture (Carol-wound Skin Appearance) Assessed Weeping -Color (Carol-wound Skin Appearance) Assessed No Abnormality -Temperature (Carol-wound Skin No Abnormality No Abnormality Appearance) (Pt Warm) (Pt Warm) -Tenderness on Palpation (Carol-wound No Skin Appearance) -Ulcer Cleansing Rinsed/ Soap and Water Irrigated with Saline -Foul Odor after Cleansing No No -Anesthetic Used 5% Lidocaine 5% Lidocaine Gel Gel WC - Nurse 2 - General Ulcer CM Notes Start: 05/27/25 10:51 Freq: Status: Active Protocol: Activity Type Activity Date Activity User E-sign Co-sign Detail Recorded Client Recorded Date Recorded By Document 05/27/25 12:13 [id number] 05/27/25 12:19 Document 06/10/25 11:25 [id number] 06/10/25 11:31 05/27/25 06/10/25 12:13 11:25 Wound Center Nurse 2 2. R groin -Time 12:13 11:25 -Correct Patient Yes Yes -Correct Side, Site, Position Yes Yes -Correct Procedure No No -Procedure Performed No No -Tunneling No -Undermining/Tunneling No -Circular Undermining No -Wound/Ulcer Outcome Not Healed Not Healed -Ulcer Cleansing Not Cleansed Not Cleansed -Foul Odor after Cleansing No No -Bioengineered Tissue No -Bleeding Controlled with NA NA -Offloading No 1. L groin -Time 12:16 11:28 -Correct Patient Yes Yes -Correct Side, Site, Position Yes Yes -Correct Procedure No No -Procedure Performed No No -Tunneling No -Undermining/Tunneling No -Circular Undermining No -Wound/Ulcer Outcome Not Healed -Ulcer Cleansing Not Cleansed Not Cleansed -Foul Odor after Cleansing No No -Bioengineered Tissue No -Bleeding Controlled with NA NA -Treatment Response Procedure Tolerated Well -Offloading No Pain Scale: 0-10 Numeric Is Patient Pain Free? Yes Yes SHAYNA - Nurse 3 - General Ulcer D/C NN Start: 05/27/25 10:51 Freq: Status: Active Protocol: Activity Type Activity Date Activity User E-sign Co-sign Detail Recorded Client Recorded Date Recorded By Document 05/27/25 12:31 KW [id number] 05/27/25 12:32 KW Document 06/10/25 11:57 DS [id number] 06/10/25 12:08 DS 05/27/25 06/10/25 12:31 11:57 Wound Care Center Nurse 3 2. R groin -Ulcer Cleansing Not Cleansed -Primary Dressing Applied Hysept -Other Dressing dakins wet to abd pad dry -Primary Dressing Covered/Secured with Dry Gauze, Dry Gauze, Secured with Secured with Tape Tape -Hysept 0 1. L groin -Ulcer Cleansing Not Cleansed -Primary Dressing Applied Hysept -Other Dressing dakins wet to abd pad dry -Primary Dressing Covered/Secured with Dry Gauze, Dry Gauze, Secured with Secured with Tape Tape -Hysept 0 Pain Scale: 0-10 Numeric Is Patient Pain Free? Yes Yes WC - Visit Discharge Discharge Condition Stable Stable Ambulatory Status Ambulatory,Cane Ambulatory,Cane Transportation Private Auto Private Auto Medication Reconcilliation completed & No provided to patient/care provider Clinical Summary of Care Provided Yes Additional Wound Wound debrided: right hidradenitis ulcer Laterality: Right Operative Diagnosis: No debridement completed today Assessment/Plan Assessment/Plan (1) Skin ulcer of right groin with fat layer exposed: CODE(S): L98.492 - Non-pressure chronic ulcer of skin of other sites with fat layer exposed (2) Ulcer of left groin with fat layer exposed: CODE(S): L98.492 - Non-pressure chronic ulcer of skin of other sites with fat layer exposed (3) Hidradenitis suppurativa: CODE(S): L73.2 - Hidradenitis suppurativa (4) Hypothyroidism: CODE(S): E03.9 - Hypothyroidism, unspecified QUALIFIERS: Hypothyroidism type: unspecified Qualified Code(s): E03.9 - (5) HTN (hypertension): CODE(S): I10 - Essential (primary) hypertension QUALIFIERS: Hypertension type: essential hypertension Qualified Code(s): I10 - Essential (primary) hypertension (6) Obesity: CODE(S): E66.9 - Obesity, unspecified QUALIFIERS: Obesity type: due to excess calories Obesity cl assification: adult class 2 (BMI 35 - 39.9) Serious obesity comorbidity presence: without serious comorbidity Body mass index: BMI 35.0-35.9 Qualified Code(s): E66.812 - Obesity, class 2; E66.09 - Other obesity due to excess calories; Z68.35 - Body mass index [BMI] 35.0-35.9, adult PLAN: Plan PLAN: Evaluation performed today in clinic as annotated above. At home wound-care instructions: The patient will wash with antibacterial soap and water and then apply Dakins wet to dry dressings. Encouraged her to use baby wipes instead of rubbing alcohol to clean skin after using bathroom. Keep dressing clean and dry. Will consider having her use Acetic acid rinse to her groin area twice daily if Dakins wet to dry is not effective. Reiterated to both the patient and her brother, Marshall, that the hidradenitis is a chronic condition and there is a spectrum of treatments but it will not be cured and will involve periodic flare ups. We discussed referral to dermatology to discuss biologic treatment options and that surgical excision of the HS is also an option for treatment. Will discuss her case with Dr. Townsend regarding DMARDs treatment and Dr. Eugene and also offered referral for surgical opinion to Dr. Albrecht in [place] as he has treated several of my HS patients surgically. Discussed the importance of treating the incontinence and to follow up as scheduled with urology regarding work up and options for treatment. Also discussed trying ABD pads in her underwear instead of incontinence pads due to the irritation that plastic may cause to her skin or trying reusable, washable cotton underpads. Educated patient on the chronicity of hidradenitis and encour aged continued weight loss. Off-loading: The patient was instructed to avoid pressure and friction on the affected areas. Reposition every 2 hours at minimum. Avoid prolonged standing and/or dangling of legs. When seated, feet should be elevated at chest level. Frequent ambulation is encouraged. Diet: Patient encouraged to increase protein intake while taking caution to avoid high carbohydrate and/or sugar intake. Labs/cultures/imaging: Follow-up: Will have her return in 4 weeks. She was advised to call or go to ER if increased drainage, pain, bleeding or worsening.
== END 2025-06-26 23:59 | disposition home or self-care (01) ==
LOC: WC 10:30
PROVIDERS: PCP Family Medicine; Referring Provider Surgery Plastic and Reconstructive Surgery; Visit Provider Family Medicine
DX: L98.492 Non-pressure chronic ulcer of skin of other sites with fat layer exposed (principal); F03.90 Unspecified dementia, unspecified severity, without behavioral disturbance, psychotic disturbance, mood disturbance, and anxiety; E03.9 Hypothyroidism, unspecified; E66.812 Obesity, class 2; E66.09 Other obesity due to excess calories; L73.2 Hidradenitis suppurativa; I10 Essential (primary) hypertension; Z68.35 Body mass index [BMI] 35.0-35.9, adult
CPT/HCPCS: 99213; G0463

== ENCOUNTER 2025-07-08 08:17 | Outpatient (RCR) | payer MEDICARE, OTHER, SELFPAY ==
[2025-07-08 10:47] VITALS: BP 125/75; PULSE 83; RESP 18; TEMP 36.1
--- NOTE | 2025-07-08 11:14 | PCM.WC.PN ---
History of Present Illness Date of Service: 07/08/25 Chief Complaint: Nonhealing ulcers of groin area History of Wound: Mónica is a pleasant 75 yo woman that presents to the wound healing center for evaluation and treatment recommendations for nonhealing ulcers that are in her bilateral groin folds that have been present and waxed and waned in severity for 13 years. She reports that she has also had urinary incontinence that started around that time as well and she has been wearing disposable incontinence pads daily since then. She reports that the areas bleed and drain pratt fluid intermittently. At some points there have been 5 spots of blood and currently there is about 2. She is otherwise uncomplicated and does not have history of diabetes. She denies fever, chills, erythema, increased drainage and odor. She has some cognitive impairment which is due to dementia. Her brother Marshall accompanies her today and helps somewhat with the history and reinforcement of instructions. She has been being seen by Dr. Eugene and referred for consultation regarding any medical management recommendations. She was evaluated by [employer] [facility] for possible Bartholin cyst but this was not felt to be an underlying cause. She sees Dr. Townsend for dermatology and is on Spironolactone. I saw her previously in July 2024 for similar complaints and she was referred to urology for urinary incontinence evaluation. 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 Subjective Subjective Mónica returns today for evaluation and treatment of hidradenitis suppurativa. She has been using Dakins solution wet to dry dressings to the groin areas and has had improvement in the drainage and discomfort. She is a poor historian. She does deny increased draining, bleeding or redness. She has an appointment scheduled with Dr. Albrecht for surgical consult on 07/11/25. Objective Data Objective Data Vital Signs: Vital Signs Temp Pulse Resp BP 97 F L 83 18 125/75 H 07/08/25 10:47 07/08/25 10:47 07/08/25 10:47 07/08/25 10:47 Physical Exam Const alert, no apparent distress and healthy appearing General Appearance: cooperative and comfortable Nutritional Appearance: obese HEENT normocephalic and head/scalp atraumatic Resp normal respiratory effort Effort and Inspection: able to speak in complete sentences Cardio regular rate and regular rhythm Skin Skin Narrative: hypertrophic thickened skin of creases of groin bilaterally with some open areas that appear to be cystic consistent with hidradenitis, no drainage and no slough present, right labia enlarged and swollen with no current purulent drainage able to be expressed from multiple openings Wounds: wounds noted Wound Narrative: as in clinical panel Neuro no focal motor deficits Psych mental status grossly normal, thought process normal, cooperative and affect normal Debridement Note Debridement Note Wound debrided: Left groin hidradenitis wound Laterality: Left No debridement was completed: No debridement was completed today Post-Debridement Measurements and Additional Note: Post-Debridement Measurements/Treatment WC - Nurse 1 - General Ulcer Assessment Start: 07/08/25 10:47 Freq: Status: Active Protocol: JOSE ELIAS Activity Type Activity Date Activity User E-sign Co-sign Detail Recorded Client Recorded Date Recorded By Document 07/08/25 10:47 TANESHA [id number] 07/08/25 10:51 TANESHA 07/08/25 10:47 WC - Today's Visit Information Type of service Follow-up Visit (Physician/[employer] SERVICE ATTENDANT ) Arrival Mode Ambulatory Transfer Assistance None Patient Identification Verified (Name & Yes ) Patient Requires Transmission-Based No Precautions Vital Signs Temperature (97.8 F-99.1 F) 97 F L Temperature Source Temporal Pulse Rate (60-100) 83 Pulse Location Monitor Respiratory Rate (12-18) 18 Respiratory rate source Observation Blood Pressure (90/60-120/80) 125/75 H Blood Pressure Mean (mm Hg) 91 Source Monitor Position Semi-Fowlers Blood Pressure Location Left Arm History Since Last Visit- (Skip if this is Patient's initial visit) Have you changed medications since your No last visit? Any new allergies or adverse reactions No Had a fall/change in ADL's that may No increase risk of falls Signs or symptoms of abuse and/or No neglect since last visit Have you been in the hospital since your No last visit? Has dressing in place as prescribed Yes Has compression in place as prescribed N/A Has offloadiing in place as prescribed N/A Experienced any changes in pain level or No management Pain Scale: 0-10 Numeric Is Patient Pain Free? Yes SHAYNA Reyes Nurse 1 - General Ulcer Measurement Start: 07/08/25 10:47 Freq: Status: Active Protocol: Activity Type Activity Date Activity User E-sign Co-sign Detail Recorded Client Recorded Date Recorded By Document 07/08/25 10:47 RB [id number] 07/08/25 10:51 RB 07/08/25 10:47 Wound Center Nurse 1 2. R groin -Combined with other wound No -Current Size (cm) - Length 0.1 -Current Size (cm) - Width 0.1 -Current Size (cm) - Depth 0.1 -Total Square Cm 0.01 -Photo Taken Yes -Tunneling No -Undermining/Tunneling No -Circular Undermining No -Exudate Amt Small -Exudate Type Serosanguineous -Wound Margin Distinct, Outline Attached -Granulation Amt Large (67-100%) -Granulation Quality Red -Slough/Fibrin Yes -Necrosis Amt Small (1-33%) -Necrotic Tissue Type Adherent Slough -Structure Exposed N/A -Texture (Carol-wound Skin Appearance) Assessed, Excoriation -Moisture (Carol-wound Skin Appearance) Assessed -Color (Carol-wound Skin Appearance) Assessed -Temperature (Carol-wound Skin No Abnormality Appearance) (Pt Warm) -Tenderness on Palpation (Carol-wound No Skin Appearance) -Ulcer Cleansing Wound Cleanser -Foul Odor after Cleansing No 1. L groin -Combined with other wound No -Current Size (cm) - Length 0.1 -Current Size (cm) - Width 0.1 -Current Size (cm) - Depth 0.1 -Total Square Cm 0.01 -Photo Taken Yes -Tunneling No -Undermining/Tunneling No -Circular Undermining No -Exudate Amt Small -Exudate Type Serosanguineous -Wound Margin Distinct, Outline Attached -Granulation Amt Large (67-100%) -Granulation Quality Red -Slough/Fibrin Yes -Necrosis Amt Small (1-33%) -Necrotic Tissue Type Adherent Slough -Structure Exposed N/A -Texture (Carol-wound Skin Appearance) Assessed, Excoriation -Moisture (Carol-wound Skin Appearance) Assessed -Color (Carol-wound Skin Appearance) Assessed -Temperature (Carol-wound Skin No Abnormality Appearance) (Pt Warm) -Tenderness on Palpation (Carol-wound No Skin Appearance) -Ulcer Cleansing Wound Cleanser -Foul Odor after Cleansing No WC - Nurse 2 - General Ulcer CM Notes Start: 07/08/25 10:47 Freq: Status: Active Protocol: Activity Type Activity Date Activity User E-sign Co-sign Detail Recorded Client Recorded Date Recorded By Document 07/08/25 11:00 [id number] 07/08/25 11:05 07/08/25 11:00 Wound Center Nurse 2 2. R groin -Time 11:00 -Correct Patient Yes -Correct Side, Site, Position Yes -Correct Procedure No -Procedure Performed No -Tunneling No -Undermining/Tunneling No -Circular Undermining No -Wound/Ulcer Outcome Not Healed -Ulcer Cleansing Not Cleansed -Foul Odor after Cleansing No -Bioengineered Tissue No -Bleeding Controlled with NA -Offloading No 1. L groin -Time 11:01 -Correct Patient Yes -Correct Side, Site, Position Yes -Correct Procedure No -Procedure Performed No -Tunneling No -Undermining/Tunneling No -Circular Undermining No -Wound/Ulcer Outcome Not Healed -Ulcer Cleansing Not Cleansed -Foul Odor after Cleansing No -Bioengineered Tissue No -Bleeding Controlled with NA -Offloading No Pain Scale: 0-10 Numeric Is Patient Pain Free? Yes - Nurse 3 - General Ulcer D/C NN Start: 07/08/25 10:47 Freq: Status: Active Protocol: Activity Type Activity Date Activity User E-sign Co-sign Detail Recorded Client Recorded Date Recorded By Document 07/08/25 11:10 [id number] 07/08/25 11:11 07/08/25 11:10 Wound Care Center Nurse 3 2. R groin -Other Dressing dakins -Primary Dressing Covered/Secured with Dry Gauze, Secured with Tape 1. L groin -Other Dressing dakins -Primary Dressing Covered/Secured with Dry Gauze, Secured with Tape Pain Scale: 0-10 Numeric Is Patient Pain Free? Yes - Visit Discharge Discharge Condition Stable Ambulatory Status Ambulatory Transportation Private Auto Medication Reconcilliation completed & No provided to patient/care provider Clinical Summary of Care Provided Yes Additional Wound Wound debrided: right hidradenitis ulcer Laterality: Right Operative Diagnosis: No debridement completed today Assessment/Plan Assessment/Plan (1) Skin ulcer of right groin with fat layer exposed: CODE(S): L98.492 - Non-pressure chronic ulcer of skin of other sites with fat layer exposed (2) Ulcer of left groin with fat layer exposed: CODE(S): L98.492 - Non-pressure chronic ulcer of skin of other sites with fat layer exposed (3) Hidradenitis suppurativa: CODE(S): L73.2 - Hidradenitis suppurativa (4) Hypothyroidism: CODE(S): E03.9 - Hypothyroidism, unspecified QUALIFIERS: Hypothyroidism type: unspecified Qualified Code(s): E03.9 - (5) HTN (hypertension): CODE(S): I10 - Essential (primary) hypertension QUALIFIERS: Hypertension type: essential hypertension Qualified Code(s): I10 - Essential (primary) hypertension (6) Obesity: CODE(S): E66.9 - Obesity, unspecified QUALIFIERS: Obesity type: due to excess calories Obesity classification: adult class 2 (BMI 35 - 39.9) Serious obesity comorbidity presence: without serious comorbidity Body mass index: BMI 35.0-35.9 Qualified Code(s): E66.812 - Obesity, class 2; E66.09 - Other obesity due to excess calories; Z68.35 - Body mass index [BMI] 35.0-35.9, adult PLAN: Plan PLAN: Evaluation performed today in clinic as annotated above. At home wound-care instructions: The patient will wash with antibacterial soap and water and then apply Dakins wet to dry dressings. Encouraged her to use baby wipes instead of rubbing alcohol to clean skin after using bathroom. Keep dressing clean and dry. Will consider having her use Acetic acid rinse to her groin area twice daily if Dakins wet to dry is not effective. Reiterated to both the patient and her brother, Marshall, that the hidradenitis is a chronic condition and there is a spectrum of treatments but it will not be cured and will involve periodic flare ups. We discussed referral to dermatology to discuss biologic treatment options and that surgical excision of the HS is also an option for treatment. Will discuss her case with Dr. Townsend regarding DMARDs treatment and referral given for surgical opinion to Dr. Albrecht in [place] as he has treated several of my HS patients surgically. She is scheduled for this on 07/11/25. Discussed the importance of treating the incontinence and to follow up as scheduled with urology regarding work up and options for treatment. Also discussed trying ABD pads in her underwear instead of incontinence pads due to the irritation that plastic may cause to her skin or trying reusable, washable cotton underpads. Educated patient on the chronicity of hidradenitis and encouraged continued weight loss. Off-loading: The patient was instructed to avoid pressure and friction on the affected areas. Reposition every 2 hours at minimum. Avoid prolonged standing and/or dangling of legs. When seated, feet should be elevated at chest level. Frequent ambulation is encouraged. Diet: Patient encouraged to increase protein intake while taking caution to avoid high carbohydrate and/or sugar intake. Labs/cultures/imaging: Follow-up: Will have her return in 4 weeks. She was advised to call or go to ER if increased drainage, pain, bleeding or worsening.
--- NOTE | 2025-07-11 09:35 | WC ---
PHOTO-RIGHT GROIN 07/08/25
== END 2025-07-26 23:59 | disposition home or self-care (01) ==
LOC: WC 08:17
PROVIDERS: PCP Family Medicine; Referring Provider Surgery Plastic and Reconstructive Surgery; Visit Provider Family Medicine
DX: L73.2 Hidradenitis suppurativa (principal); L98.492 Non-pressure chronic ulcer of skin of other sites with fat layer exposed; F03.90 Unspecified dementia, unspecified severity, without behavioral disturbance, psychotic disturbance, mood disturbance, and anxiety; E03.9 Hypothyroidism, unspecified; E66.812 Obesity, class 2
CPT/HCPCS: 99213; G0463

== ENCOUNTER 2025-08-05 10:55 | Outpatient (RCR) | payer MEDICARE, OTHER, SELFPAY ==
[2025-08-05 11:34] VITALS: BP 109/62; PULSE 62; RESP 18; TEMP 36.1
--- NOTE | 2025-08-05 15:04 | PN.PCM_ITS ---
History of Present Illness Date of Service: 08/05/25 Chief Complaint: Nonhealing ulcers of groin area History of Wound: Mónica is a pleasant 75 yo woman that presents to the wound healing center for evaluation and treatment recommendations for nonhealing ulcers that are in her bilateral groin folds that have been present and waxed and waned in severity for 13 years. She reports that she has also had urinary incontinence that started around that time as well and she has been wearing disposable incontinence pads daily since then. She reports that the areas bleed and drain pratt fluid intermittently. At some points there have been 5 spots of blood and currently there is about 2. She is otherwise uncomplicated and does not have history of diabetes. She denies fever, chills, erythema, increased drainage and odor. She has some cognitive impairment which is due to dementia. Her brother Marshall accompanies her today and helps somewhat with the history and reinforcement of instructions. She has been being seen by Dr. Eugene and referred for consultation regarding any medical management recommendations. She was evaluated by [facility] for possible Bartholin cyst but this was not felt to be an underlying cause. She sees Dr. Townsend for dermatology and is on Spironolactone. I saw her previously in July 2024 for similar complaints and she was referred to urology for urinary incontinence evaluation. 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 Subjective Subjective Mónica returns today for evaluation and treatment of hidradenitis suppurativa. She has been using Dakins solution wet to dry dressings to the groin areas and has had improvement in the drainage and discomfort. She is a poor historian. She does deny increased draining, bleeding or redness. She saw Dr. Albrecht for surgical consult on 07/11/25 and he referred her to dermatology for treatment with DMARD for her HS and will follow up in 1 month to see if surgery is needed She also injured her forearm with a skin tear to left forearm 1 week ago and has been dressing this with bandaids daily. Objective Data Objective Data Vital Signs: Vital Signs Temp Pulse Resp BP O2 Del Method 97.0 F L 62 18 109/62 Room Air 08/05/25 11:34 08/05/25 11:34 08/05/25 11:34 08/05/25 11:34 08/05/25 11:34 Oxygen Delivery Method Room Air Physical Exam Const alert, no apparent distress and healthy appearing General Appearance: cooperative and comfortable Nutritional Appearance: obese HEENT normocephalic and head/scalp atraumatic Resp normal respiratory effort Effort and Inspection: able to speak in complete sentences Cardio regular rate and regular rhythm Skin Skin Narrative: hypertrophic thickened skin of creases of groin bilaterally with some open areas that appear to be cystic consistent with hidradenitis, no drainage and no slough present, right labia enlarged and swollen with no current purulent drainage able to be expressed from multiple openings Wounds: wounds noted Wound Narrative: as in clinical panel Neuro no focal motor deficits Psych mental status grossly normal, thought process normal, cooperative and affect normal Debridement Note Debridement Note Wound debrided: Left groin hidradenitis wound Laterality: Left No debridement was completed: No debridement was completed today Post-Debridement Measurements and Additional Note: Post-Debridement Measurements/Treatment WC - Nurse 1 - General Ulcer Assessment Start: 08/05/25 11:34 Freq: Status: Active Protocol: JOSE ELIAS Activity Type Activity Date Activity User E-sign Co-sign Detail Recorded Client Recorded Date Recorded By Document 08/05/25 11:34 DS [id number] 08/05/25 11:52 DS 08/05/25 11:34 WC - Today's Visit Information Type of service Follow-up Visit (Physician/[facility] ) Arrival Mode Ambulatory,Cane Patient Identification Verified (Name & Yes ) Patient Requires Transmission-Based No Precautions Safety Precautions Fall Prevention Vital Signs Temperature (97.8 F-99.1 F) 97.0 F L Temperature Source Temporal Pulse Rate (60-100) 62 Pulse Location Monitor Respiratory Rate (12-18) 18 Respiratory rate source Observation Oxygen Delivery Method Room Air Blood Pressure (90/60-120/80) 109/62 Blood Pressure Mean (mm Hg) 77 Source Monitor Position Sitting Blood Pressure Location Right Arm History Since Last Visit- (Skip if this is Patient's initial visit) Have you changed medications since your Yes last visit? Any new allergies or adverse reactions No Had a fall/change in ADL's that may No increase risk of falls Signs or symptoms of abuse and/or No neglect since last visit Have you been in the hospital since your No last visit? Has dressing in place as prescribed Yes Has compression in place as prescribed N/A Has offloadiing in place as prescribed N/A Experienced any changes in pain level or No management Left Footwear Regular Shoe Right Footwear Regular Shoe Pain Scale: 0-10 Numeric Is Patient Pain Free? Yes SHAYNA - Nurse 1 - General Ulcer Measurement Start: 08/05/25 11:34 Freq: Status: Active Protocol: Activity Type Activity Date Activity User E-sign Co-sign Detail Recorded Client Recorded Date Recorded By Document 08/05/25 11:34 DS [id number] 08/05/25 11:52 DS 08/05/25 11:34 Wound Center Nurse 1 #3 LEFT FA -Current Size (cm) - Length 2.0 -Current Size (cm) - Width 2.5 -Current Size (cm) - Depth 0.1 -Total Square Cm 5.00 -Date of Last Picture (Recall this 08/05/25 field) -Photo Taken Yes -Tunneling No -Undermining/Tunneling No -Circular Undermining No -Wound Margin Distinct, Outline Attached -Granulation Amt Large (67-100%) -Granulation Quality [place] -Texture (Carol-wound Skin Appearance) Assessed -Moisture (Carol-wound Skin Appearance) Assessed -Color (Carol-wound Skin Appearance) Assessed -Temperature (Carol-wound Skin No Abnormality Appearance) (Pt Warm) -Tenderness on Palpation (Carol-wound No Skin Appearance) -Ulcer Cleansing Soap and Water -Foul Odor after Cleansing No -Anesthetic Used 5% Lidocaine Gel 2. R groin -Current Size (cm) - Length 0.1 -Current Size (cm) - Width 0.1 -Current Size (cm) - Depth 0.1 -Total Square Cm 0.01 -Date of Last Picture (Recall this 08/05/25 field) -Photo Taken Yes -Tunneling No -Undermining/Tunneling No -Circular Undermining No -Exudate Amt Small -Exudate Type Yellow/Green -Texture (Carol-wound Skin Appearance) Assessed -Moisture (Carol-wound Skin Appearance) Assessed -Color (Carol-wound Skin Appearance) Assessed -Temperature (Carol-wound Skin No Abnormality Appearance) (Pt Warm) -Tenderness on Palpation (Carol-wound No Skin Appearance) -Ulcer Cleansing Soap and Water -Foul Odor after Cleansing No -Anesthetic Used 5% Lidocaine Gel SHAYNA - Nurse 2 - General Ulcer CM Notes Start: 08/05/25 11:34 Freq: Status: Active Protocol: Activity Type Activity Date Activity User E-sign Co-sign Detail Recorded Client Recorded Date Recorded By Document 08/05/25 12:03 [id number] 08/05/25 12:12 08/05/25 12:03 Wound Center Nurse 2 #3 LEFT FA -Time 12:07 -Correct Patient Yes -Correct Side, Site, Position Yes -Correct Procedure No -Procedure Performed No -Post Debridement (cm) - Length 2.0 -Post Debridement (cm) - Width 1.3 -Post Debridement (cm) - Depth 0.1 -Total Square (Post) (cm) 2.60 -Tunneling No -Undermining/Tunneling No -Circular Undermining No -Wound/Ulcer Outcome Not Healed -Ulcer Cleansing Rinsed/ Irrigated with Saline -Foul Odor after Cleansing No -Bioengineered Tissue No -Bleeding Controlled with NA 2. R groin -Time 12:11 -Correct Patient Yes -Correct Side, Site, Position Yes -Correct Procedure No -Procedure Performed No -Wound/Ulcer Outcome Not Healed -Ulcer Cleansing Not Cleansed -Foul Odor after Cleansing No -Bioengineered Tissue No -Bleeding Controlled with NA 1. L groin -Time 12:11 -Correct Patient Yes -Correct Side, Site, Position Yes -Correct Procedure No -Procedure Performed No -Wound/Ulcer Outcome Healed- Epithelialized Pain Scale: 0-10 Numeric Is Patient Pain Free? Yes - Nurse 3 - General Ulcer D/C NN Start: 08/05/25 11:34 Freq: Status: Active Protocol: Activity Type Activity Date Activity User E-sign Co-sign Detail Recorded Client Recorded Date Recorded By Document 08/05/25 12:37 [id number] 08/05/25 12:38 08/05/25 12:37 Wound Care Center Nurse 3 #3 LEFT FA -Ulcer Cleansing Rinsed/ Irrigated with Saline -Primary Dressing Applied C Hydrogel, Silicone Border Foam AG 3.6x4 -Hydrogel 1 -Silicone Border Foam AG 3.6x4 1 2. R groin -Primary Dressing Applied Hysept -Other Dressing DAKINS MOISTENED GAUZE /ABD -Hysept 1 1. L groin -Other Dressing DAKINS MOISTENED GAUZE /ABD Treatment Response Procedure Tolerated Well Pain Scale: 0-10 Numeric Is Patient Pain Free? Yes - Visit Discharge Discharge Condition Stable Ambulatory Status Ambulatory Transportation Private Auto Medication Reconcilliation completed & No provided to patient/care provider Clinical Summary of Care Provided Yes Additional Wound Wound debrided: right hidradenitis ulcer Laterality: Right Operative Diagnosis: No debridement completed today Additional Wound Wound debrided: left forearm ulcer Laterality: Left Type of Debridement: Selective debridement Anesthesia Used: 5% Lidocaine Gel Depth: Down to and including healthy tissue and in the subcutaneous layer Percentage of wound debrided: 100 Instrument Used: - (gauze) Tissue Removed: Yellow slough, devitalized tissue Severity: Fat Layer Exposed Amount of bleeding with debridement: Mild Bleeding Controlled with: Compression and gauze Patient tolerated procedure: Patient tolerated procedure well Assessment/Plan Assessment/Plan (1) Skin ulcer of right groin with fat layer exposed: CODE(S): L98.492 - Non-pressure chronic ulcer of skin of other sites with fat layer exposed (2) Ulcer of left groin with fat layer exposed: CODE(S): L98.492 - Non-pressure chronic ulcer of skin of other sites with fat layer exposed (3) Hidradenitis suppurativa: CODE(S): L73.2 - Hidradenitis suppurativa (4) Hypothyroidism: CODE(S): E03.9 - Hypothyroidism, unspecified QUALIFIERS: Hypothyroidism type: unspecified Qualified Code(s): E03.9 - (5) HTN (hypertension): CODE(S): I10 - Essential (primary) hypertension QUALIFIERS: Hypertension type: essential hypertension Qualified Code(s): I10 - Essential (primary) hypertension (6) Obesity: CODE(S): E66.9 - Obesity, unspecified QUALIFIERS: Obesity type: due to excess calories Obesity classification: adult class 2 (BMI 35 - 39.9) Serious obesity comorbidity presence: without serious comorbidity Body mass index: BMI 35.0-35.9 Qualified Code(s): E66.812 - Obesity, class 2; E66.09 - Other obesity due to excess calories; Z68.35 - Body mass index [BMI] 35.0-35.9, adult (7) Skin tear of left forearm without complication: CODE(S): S51.812A - Laceration without foreign body of left forearm, initial encounter (8) 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 At home wound-care instructions: Will have her apply hydrogel to her left forearm ulcer and cover this daily. The patient will wash with antibacterial soap and water and then apply Dakins wet to dry dressings. Encouraged her to use baby wipes instead of rubbing alcohol to clean skin after using bathroom. Keep dressing clean and dry. Will consider having her use Acetic acid rinse to her groin area twice daily if Dakins wet to dry is not effective. Reiterated to both the patient and her brother, Marshall, that the hidradenitis is a chronic condition and there is a spectrum of treatments but it will not be cured and will involve periodic flare ups. We discussed referral to dermatology to discuss biologic treatment options and that surgical excision of the HS is also an option for treatment. Will discuss her case with Dr. Townsend regarding DMARDs treatment and referral given for surgical opinion to Dr. Albrecht in [place] as he has treated several of my HS patients surgically. She saw Dr. Albrecht and he referred her for DMARDS which were started this past week. She is scheduled to follow up with him again in 1 month to assess whether surgery is needed. Discussed the importance of treating the incontinence and to follow up as scheduled with urology regarding work up and options for treatment. Also discussed trying ABD pads in her underwear instead of incontinence pads due to the irritation that plastic may cause to her skin or trying reusable, washable cotton underpads. Educated patient on the chronicity of hidradenitis and encouraged continued weight loss. Off-loading: The patient was instructed to avoid pressure and friction on the affected areas. Reposition every 2 hours at minimum. Avoid prolonged standing and/or dangling of legs. When seated, feet should be elevated at chest level. Frequent ambulation is encouraged. Diet: Patient encouraged to increase protein intake while taking caution to avoid high carbohydrate and/or sugar intake. Labs/cultures/imaging: Follow-up: Will have her return in 4-6 weeks. She was advised to call or go to ER if increased drainage, pain, bleeding or worsening.
--- NOTE | 2025-08-08 10:26 | WC ---
PHOTO-LEFT FOREARM 08/05/25
--- NOTE | 2025-08-08 10:27 | WC ---
PHOTO-NICK 08/05/25
== END 2025-08-26 23:59 | disposition home or self-care (01) ==
LOC: WC 10:55
PROVIDERS: PCP Family Medicine; Referring Provider Surgery Plastic and Reconstructive Surgery; Visit Provider Family Medicine
DX: L73.2 Hidradenitis suppurativa (principal); L98.492 Non-pressure chronic ulcer of skin of other sites with fat layer exposed; F03.90 Unspecified dementia, unspecified severity, without behavioral disturbance, psychotic disturbance, mood disturbance, and anxiety; E03.9 Hypothyroidism, unspecified; E66.812 Obesity, class 2; S51.812A Laceration without foreign body of left forearm, initial encounter; R41.89 Other symptoms and signs involving cognitive functions and awareness; E66.09 Other obesity due to excess calories; I10 Essential (primary) hypertension; Z68.35 Body mass index [BMI] 35.0-35.9, adult; L98.A22 Non-pressure chronic ulcer of left forearm
CPT/HCPCS: 99213; G0463

== ENCOUNTER 2025-08-15 11:10 | Inpatient (IN) | payer MEDICARE, OTHER, SELFPAY ==
[2025-08-15] VITALS (27 sets, daily range): BP systolic 74–130; BP diastolic 44–112; PULSE 54–80; RESP 14–32; TEMP 36.4–36.6; O2SAT 90–100; BMI 29.6; BMI 32.1
--- NOTE | 2025-08-15 11:47 | EKG12_ITS ---
Test Reason : GENERAL Blood Pressure : */* mmHG Vent. Rate : 54 BPM Atrial Rate : 54 BPM P-R Int : 166 ms QRS Dur : 86 ms QT Int : 408 ms P-R-T Axes : 73 5 25 degrees QTcB Int : 386 ms Sinus bradycardia Cannot rule out Inferior infarct , age undetermined Abnormal ECG Confirmed by Frank Toth ([id number]), assistant editor ELINOR BERNABE ([id number]) on 08/16/2025 11:12:55 AM Referred By: Confirmed By: Frank Toth
[2025-08-15 12:10] LABS: Hematocrit 30.8 % (37-47); Hemoglobin 10.8 g/dL (12.0-15.0); Immature Granulocytes Count 0.020 X10^3/uL (0.0-0.0); Mean Corp Hgb Conc 35.1 g/dL (32-36); Mean Corpuscular Volume 90.3 fL (81-99); Mean Platelet Vol. 9.8 fl (6.2-12.0); NRBC Flagged by Analyzer 0 % (0-5); POSITIVE DIFFERENTIAL YES; Platelet Count 173 K/mm3 (150-450); RBC Distribution Width CV 14.0 % (11.6-14.6); RBC Distribution Width SD 46.1 fl (35.1-43.9); Red Blood Count 3.41 M/mm3 (4.2-5.4); White Blood Count 5.2 K/mm3 (4.4-11.0)
[2025-08-15 12:27] LABS: Prothrombin Time (Protime)PT. 13.8 SECONDS (11.7-14.9)
[2025-08-15 12:28] LABS: Partial Thromboplast Time 31.1 Seconds (24.1-36.2)
[2025-08-15] MEDS: 0.9% Normal Saline (1000mL) 1,000 ML 999 ML IV ×3 (12:30→16:05)
[2025-08-15 12:57] LABS: AST(SGOT) 72 U/L (<=31); Alanine Aminotransfer ALT/SGPT 91 U/L (<=34); Albumin, Serum 3.5 g/dL (3.4-4.8); Alkaline Phosphatase 73 U/L (35-104); Anion Gap 13 (5-15); BUN 55 mg/dL (4-19); BUN/Creat Ratio 20.6 RATIO (10-20); Calcium,Total 8.9 mg/dL (7.6-11.0); Carbon Dioxide 17.0 mmol/L (21.0-32.0); Chloride 96 mmol/L (98-108); Estimated Creatinine Clearance 15.47 ml/min (50-250); Globulin 1.9 g/dL (2.2-4.2); Glucose 136 mg/dL (70-99); Potassium 4.7 mmol/L (3.3-5.1)
[2025-08-15] MEDS: Ampicillin/Sulbactam 3 GM in 0.9% Normal Saline (100mL MB+) 100 ML IV ×2 (13:31→20:25)
--- NOTE | 2025-08-15 13:33 | ED.RN ---
Spoke to Dr. Isaac. multiple attempts made to get 2nd set of blood cultures. Per Dr. Isaac, due to her hypotension, ATB initiated with only one set of blood cultures drawn. Patient up up for CT scan.
[2025-08-15 13:38] LABS: Color, Urine Yellow (Yellow); Glucose, Dipstick Normal (Normal); Ketone-Dipstick Negative (Negative); Leukocyte Esterase-Dipstick Negative /ul (Negative); Nitrite-Dipstick Negative (Negative); Occult Blood-Urine 10 /ul (Negative); Protein-Dipstick 15 mg/dl (Negative); Specific Gravity, Urine 1.010 (1.002-1.030); Urine Bilirubin Dipstick Negative (Negative)
[2025-08-15 13:49] LABS: Mucous, Urine 1+ /hpf (<or=2+); Red Blood Cells-Urine 0-5 SEEN /hpf (0-5); Squamous Epithelial Cells - UA 0-5 SEEN /hpf (5-10)
[2025-08-15] MEDS: Vancomycin HCl 1,750 MG in 0.9% Normal Saline (500mL Bag) 500 ML 250 MG IV (14:20)
--- NOTE | 2025-08-15 14:35 | CT_ITS ---
PROCEDURE: PELVIS WITH IV CONTRAST 08/15/2025 REASON FOR EXAM: SWELLING RIGHT LABIA, HISTORY OF RECENT ABSCESS, H TECHNIQUE: Procedure Code: CTPELW Modality: CT Procedure: PELVIS WITH IV CONTRAST CONTRAST: Isovue 370 VOLUME: 69 mL One or more dose reduction techniques were used (e.g., Automated exposure control, adjustment of the mA and/or kV according to patient size, use of iterative reconstruction technique). RADIATION DOSE SUMMARY: CTDlvol: 27.76 mGy DLP: 1088.49 mGycm COMPARISON: None FINDINGS: Bladder: The urinary bladder is distended. Reproductive Organs: Unremarkable. Bowel: Colonic diverticulosis without diverticulitis. Appendix: Normal. There is thickening of the right labia majora with focal thickening along its mid in inferior portions. This measures 1.7 cm x 2.6 cm. Small amount of air is seen within it. This is in keeping with the patient's history of recent abscess drainage. CT/Pelvis WITH IV Contrast IMPRESSION: Findings suggestive of residual thickening of the right labia majora towards th e mid and inferior portions. A tiny amount of air is seen within its suggestive of recent drainage. Reading Location: [place] [id number]
--- NOTE | 2025-08-15 15:10 | EX.ED.DYSGE1 ---
HPI History of Present Illness Chief Complaint: General Illness Detail of Chief Complaint: Hypotension, swollen right labia Informant: patient and other (Patient is not a good informant.) Onset/Context/Timing Onset: Today Timing: Continuous Quality: Hypotensive at home. Sent in by wound care nurse Current Severity: Moderate Maximum Severity: Moderate Worsened by: Uncertain Relieved by: Nothing Associated Symptoms Associated Symptoms: Lightheadedness, swelling and tenderness of right groin area Narrative Narrative: Patient has some cognitive impairment. She is not a good informant. Did not receive a call from the wound nurse. She is being treated at the wound center for hidradenitis suppurativa. She has been using Dakin's solution with wet-to-dry dressing changes to the area. She did see Dr. Albrecht for surgical consultation July 11. She was referred to dermatology with RL RD for her at bedtime and follow-up in a month. She also has a skin tear lateral left elbow. Patient was sent in because of hypotension and concern for infection. She only complains of her groin being sore and bloody drainage. Prior similar symptoms: Yes Recent Illness/Hospitalization: Yes PFSH [facility] Medical History Post-menopausal Depression Anxiety Dementia Open wound Arthritis Non-smoker Shortness of breath on exertion Urinary incontinence Gout Hypothyroid High cholesterol HTN (hypertension) Home Medications ?Medication ?Instructions ?Recorded ?Last Taken ?Type amlodipine 10 mg tablet (Norvasc) 10 mg PO DAILY BLOOD PRESSURE 08/06/24 08/15/25 History pravastatin 10 mg tablet 10 mg PO QHS 08/06/24 08/14/25 History allopurinol 300 mg tablet 300 mg PO QDAY FOR GOUT 12/10/24 08/15/25 History donepezil 10 mg tablet (Aricept) 10 mg PO DAILY 08/15/25 08/14/25 History doxycycline monohydrate 100 mg 100 mg PO DAILY 08/15/25 08/14/25 History tablet furosemide 20 mg tablet (Lasix) 20 mg PO DAILY EDEMA 08/15/25 08/15/25 History levothyroxine 150 mcg tablet 150 mcg PO DAILY 08/15/25 08/14/25 History (Synthroid) lisinopril 40 mg tablet 40 mg PO DAILY BLOOD PRESSURE 08/15/25 08/15/25 History spironolactone 100 mg tablet 100 mg PO DAILY 08/15/25 08/14/25 History Allergy/AdvReac Type Severity Reaction Status Date / Time Latex, Natural Rubber Allergy Mild Rash Verified 08/15/25 11:20 Family History Father Colon cancer Mother Hypertension Surgical History S/P D&C (status post dilation and curettage) Status post amputation of finger S/P bladder repair History of left hip replacement H/O thyroidectomy History of right hip replacement Social History household members: none Smoking Status: Never smoker additional social history: Single ROS ROS ED Review of Systems ROS Unobtainable: due to mental status Respiratory/Chest Respiratory/Chest: Denies cough or dyspnea Gastrointestinal Gastrointestinal: Denies abdominal pain, nausea or vomiting Musculoskeletal Musculoskeletal: Denies arthralgias or myalgias Integumentary Reports other Details: Swelling, wound left labia. Patient has multiple stab incisions noted of varying age. Hematologic/Lymphatic Hematologic/Lymphatic: Reports systems reviewed and no addt'l complaints, except as documented EXAM Physical Exam Const Vital Signs: 08/15/25 11:11 08/15/25 11:18 08/15/25 11:20 Temperature 97.6 F L 97.6 F L Temperature Source Oral Oral Pulse Rate 60 60 Respiratory Rate 17 17 Respiratory Effort Normal Non-Labored Respiratory Pattern Normal Blood Pressure 89/51 L 89/51 L Blood Pressure Mean 63 63 Pulse Ox 100 100 Oxygen Delivery Method Room Air Nasal Cannula 08/15/25 12:18 08/15/25 12:27 08/15/25 12:33 Temperature 97.9 F Temperature Source Oral Pulse Rate 57 L 57 L Respiratory Rate 18 20 H Respiratory Effort Respiratory Pattern Blood Pressure 89/44 L Blood Pressure Mean 59 Pulse Ox 100 100 100 Oxygen Delivery Method Room Air Room Air 08/15/25 12:45 08/15/25 13:00 08/15/25 13:00 Temperature 97.8 F Temperature Source Oral Pulse Rate 57 L 60 61 Respiratory Rate 21 H 14 17 Respiratory Effort Respiratory Pattern Blood Pressure 91/60 100/54 L 100/54 L Blood Pressure Mean 69 69 69 Pulse Ox 99 100 100 Oxygen Delivery Method Room Air 08/15/25 13:15 08/15/25 13:30 08/15/25 13:45 Temperature Temperature Source Pulse Rate 60 65 65 Respiratory Rate 14 18 22 H Respiratory Effort Respiratory Pattern Blood Pressure 95/49 L 87/46 L 88/45 L Blood Pressure Mean 62 59 60 Pulse Ox 100 100 Oxygen Delivery Method 08/15/25 14:00 08/15/25 14:15 08/15/25 14:15 Temperature Temperature Source Pulse Rate 80 Respiratory Rate 32 H 19 H Respiratory Effort Respiratory Pattern Blood Pressure 130/112 H 93/51 L 93/51 L Blood Pressure Mean 119 65 65 Pulse Ox Oxygen Delivery Method 08/15/25 14:30 08/15/25 14:45 08/15/25 15:00 Temperature 97.9 F Temperature Source Oral Pulse Rate 64 73 62 Respiratory Rate 17 21 H 16 Respiratory Effort Respiratory Pattern Blood Pressure 89/66 L 110/56 L 100/52 L Blood Pressure Mean 69 70 68 Pulse Ox 90 100 Oxygen Delivery Method Room Air 08/15/25 15:00 08/15/25 15:22 Temperature 97.9 F Temperature Source Pulse Rate 72 62 Respiratory Rate 22 H 16 Respiratory Effort Respiratory Pattern Blood Pressure 100/54 L 100/52 L Blood Pressure Mean 69 68 Pulse Ox 100 Oxygen Delivery Method Positive well nourished and well developed Constitutional Narrative: Patient is hypotensive. She appears in no distress. She is tachypneic. General Appearance ED: well developed HEENT Reports dry mucous membranes HEENT Narrative: Head is atraumatic and normocephalic. Ears normal. Nares patent Mouth ED: Yes dry mucous membranes Mouth: dry mucous membranes Eyes PERRL and EOMs intact bilaterally General Eye ED: Negative for pale conjunctiva or scleral icterus Neck no lymphadenopathy, supple and no JVD Chest Wall Negative for inspection of chest normal or palpation of chest normal Resp normal respiratory effort and clear to auscultation bilaterally Cardio regular rate, regular rhythm, S1 normal heart sound, S2 normal heart sound and no murmurs GI normal to inspection, nondistended, normoactive bowel sounds, non-tender, non-distended and no masses; Negative for hepatosplenomegaly Auscultation: normoactive bowel sounds Palpation: soft Narrative: Patient's right labia is dark in color. There is multiple what looks to be stab incisions. The most lateral superior wound has some slight drainage noted. There is no crepitus noted. There is no subcutaneous air noted. There is no true fluctuance. The labia is definitely swollen and discolored. There is shotty nodes noted. Back/Spine General Back: CVA tenderness Extremity normal to inspection General Extremety ED: Negative for edema General Extremity: Negative for edema Neuro CN's II-XII intact bilaterally Sensorium / Orientation: alert Psych mental status grossly normal Skin no rashes or lesions noted, No no wounds and skin turgor normal Sepsis Attestation Sepsis Alert: Yes Sepsis Attestation: Agree w/Sepsis Date exam was performed: 08/15/25 Time exam was performed: 11:50 Possible Source of Sepsis: Skin/soft tissue Sepsis Organ Dysfunction Criteria Present: SBP < 90 mmHg or MAP < 65 mmHg, Creatinine > 2.0 mg/dL and Serum CO2 < 20 mmol/L (on BMP) Fluid Resuscitation Fluid resuscitation indicated?: Yes Fluid Resuscitation ordered: 30 ml/kg fluid bolus ordered Amount of fluid ordered: 2,000 Sepsis Note Date exam was performed: 08/15/25 Time exam was performed: 15:12 Sepsis Attestation: Sepsis re-evaluation was performed Response to fluids: Fluid responsive hypotension MDM MDM MDM Narrative Medical decision making narrative: Concern patient is hypotensive due to sepsis. Sepsis order set was started. She received a 30 cc/kg bolus of saline. She was treated with Unasyn and vancomycin. Will obtain appropriate blood work, EKG etc. CT was obtained of the pelvis to assess for any subcu air, abscess etc. Lab Data Attestation: I reviewed the patient's lab results. Lab results narrative: White count is normal. There is a shift. H&H is 10.8 and 30.8. Patient has acute kidney injury with a BUN of 55 and creatinine of 2.68. Patient's electrolytes were abnormal with a sodium 127 and chloride 96. Patient has decreased CO2 with a normal anion gap. Lactate normal. UA is unremarkable Labs: Laboratory Results - last 24 hr 08/15/25 08/15/25 11:56 13:10 WBC 5.2 RBC 3.41 L Hgb 10.8 L Hct 30.8 L MCV 90.3 MCH 31.7 MCHC 35.1 RDW Std Deviation 46.1 H RDW Coeff of Gisela 14.0 Plt Count 173 MPV 9.8 Immature Gran % (Auto) 0.400 Neut % (Auto) 83.3 H Lymph % (Auto) 5.4 L [place] % (Auto) 9.9 Eos % (Auto) 0.8 Baso % (Auto) 0.2 Absolute Neuts (auto) 4.3 Absolute Lymphs (auto) 0.28 L Nucleated RBC % 0 PT 13.8 INR 1.0 APTT 31.1 Sodium 127 L Potassium 4.7 Chloride 96 L Carbon Dioxide 17.0 L Anion Gap 13 BUN 55 H Creatinine 2.68 H Estim Creat Clear Calc 15.47 L Est GFR (MDRD) Non-Af 18 L BUN/Creatinine Ratio 20.6 H Glucose 136 H Lactic Acid 1.0 Calcium 8.9 Total Bilirubin 0.47 AST 72 H ALT 91 H Alkaline Phosphatase 73 Total Protein 5.4 L Albumin 3.5 Globulin 1.9 L Albumin/Globulin Ratio 1.8 Urine Color Yellow Urine Clarity Clear Urine pH 5.0 Ur Specific [place] 1.010 Urine Protein 15 H Urine Glucose (UA) Normal Urine Ketones Negative Urine Occult Blood 10 H Urine Nitrite Negative Urine Bilirubin Negative Urine Urobilinogen Normal Ur Leukocyte Esterase Negative Urine RBC 0-5 SEEN Urine WBC 0-5 SEEN Ur Squamous Epith Cells 0-5 SEEN Urine Bacteria 0 SEEN Hyaline Casts 0-5 SEEN Urine Mucus 1+ Radiography Diagnostic Testing: Clinical Impression(s) from Imaging Studies Pelvis CT 08/15/25 14:35 IMPRESSION: Findings suggestive of residual thickening of the right labia majora towards the mid and inferior portions. A tiny amount of air is seen within its suggestive of recent drainage. Reading Location: [facility]-1 CT report was reviewed. Patient has not had recent I&D to my knowledge. So the subcu air is somewhat concerning. EKG Initial EKG: Attestation: I personally reviewed and interpreted this EKG as follows: Interpretation: Sinus Bradycardia (Rate is 54. Parables under sick 6 ms. Cures duration 86 ms. QT duration 4 and 8 ms. [place] is normal. She has decreased anterior force. There are no acute ischemic changes noted.) Management Discussion w/another healthcare provider: Hospitalist (Spoke to Dr. Valarie Keene. Admit ICU.) Critical Care Time Critical Care Time: Yes Critical care time (excluding procedures): 30-74 minutes (32), Including time spent: (History, physical, documentation, review of wound care notes, discussion with family member), Discussing w/Patient &/or Family/Senior Advisor, Discussing w/Consultants and Arranging Admission or Transfer Discharge Plan Dx/Rx/DC Orders Clinical Impression: Cellulitis of labia majora, Acute hypotension, Sepsis, JOSH (acute kidney injury), History of obstructive sleep apnea, Hypothyroidism Disposition Disposition: Acute Care Hospital [facility]
--- NOTE | 2025-08-15 17:24 | CASEMGMT ---
Care Management Face to Face with patient for initial transition planning/care coordination assessment in the ED.? This specifications writer introduced self and role at [facility]. Patient alert and oriented. Patient willing to participate in assessment and is able to answer all questions appropriately.? Care providers, pharmacy, and demographics verified. Admitting Diagnosis: hypotension, sepsis Other diagnosis history: ?dementia, arthritis, HTN PCP: ?[facility] Specialists: Chucho Eugene Wyneski Preferred Pharmacy: [facility] Insurance: ?Medicare Prescription Benefit: ?Yes Living Will/HPOA: ?none LNOK: ?brother Living Arrangements: ?patient lives alone in a mobile home.? Reports to having some trouble with bathing, washing hair.? Reports no issues with IADLs.? Has 3 cats inside and 10 outside along with a horse.?? Transportation: patient drives DME: ?shower bench, cane, ramp into home HHC: ?has HH 2 x a week for wound dressing, states she has a private duty person that helps her on sat with wound changes and bathing/hair washing SNF/Rehab: ?patient reports to being in a SNF for 2 months but cannot remember name Community Resources: ?none Behavioral Health History: ?depression, anxiety Patient goals: Patient wishes to discharge home. Patient denies any further needs or concerns at this time. Disposition Plan: admission to acute; RN CM/SW to follow for discharge planning needs that may arise. Daisy Murphy, FINANCE ASSISTANT, PLASTIC JOINT [employer]KER
--- NOTE | 2025-08-15 17:25 | PCM.HP.STD ---
HPI - General General Date of Admission: 08/15/25 Date of Service: 08/15/25 Chief Complaint: Low blood pressure HPI Narrative JAIRON DECKER, is a 75-year-old female history of gout, cognitive impairment, hypertension, hypothyroidism who presented to [facility] for hypotension and a swollen right labia. She is being treated at the wound center for hidradenitis suppurativa and has been using Dakin's solution with wet-to-dry dressing changes. She did see Dr. Albrecht for surgical consultation July 11 and was referred to dermatology. In the ED heart rate 57, blood pressure initially 89/51, respiratory rate 17 and pulse ox 100% on room air. CBC with white count of 5.2 and hemoglobin 10.8. CMP demonstrated a sodium of 127, BUN of 55 and a creatinine of 2.68 up from 0.92 several months ago. UA not suggestive of UTI. CT pelvis with findings suggestive of residual thickening of the right labia majora towards the mid inferior portions with a tiny amount of air inside suggestive of recent drainage. There was concern for sepsis the patient was bolused with 30 cc/kg and treated with Unasyn and vancomycin. Hospitalist contacted for admission. Patient evaluated at bedside, somewhat poor historian and very tangential in her answers. Does agree with history as above with struggles with lesions on her labia. She denies fever at home but reports she has been generally achy and feeling unwell. Because she has been feeling achy and weak she has been taking Aleve but it is not helping. Notes significant diarrhea over the past couple of months that is not slowing down. Does try to eat healthy and drink fluids. Has lost weight recently but she reports that this is intentional as she is trying to eat healthy. Denies any burning on urination, initially said no abdominal pain that send may be some lower abdominal pain, did note that a couple of weeks ago she had a sore throat and a little bit of a cough with some shortness of breath and felt like she had a URI, this has slowly been improving and is not a main concern at present. [facility] Medical History Post-menopausal Depression Anxiety Dementia Open wound Arthritis Non-smoker Shortness of breath on exertion Urinary incontinence Gout Hypothyroid High cholesterol HTN (hypertension) Home Medications ?Medication ?Instructions ?Recorded ?Last Taken ?Type amlodipine 10 mg tablet (Norvasc) 10 mg PO DAILY BLOOD PRESSURE 08/06/24 08/15/25 History pravastatin 10 mg tablet 10 mg PO QHS 08/06/24 08/14/25 History allopurinol 300 mg tablet 300 mg PO QDAY FOR GOUT 12/10/24 08/15/25 History donepezil 10 mg tablet (Aricept) 10 mg PO DAILY 08/15/25 08/14/25 History doxycycline monohydrate 100 mg 100 mg PO DAILY 08/15/25 08/14/25 History tablet furosemide 20 mg tablet (Lasix) 20 mg PO DAILY EDEMA 08/15/25 08/15/25 History levothyroxine 150 mcg tablet 150 mcg PO DAILY 08/15/25 08/14/25 History (Synthroid) lisinopril 40 mg tablet 40 mg PO DAILY BLOOD PRESSURE 08/15/25 08/15/25 History spironolactone 100 mg tablet 100 mg PO DAILY 08/15/25 08/14/25 History Allergy/AdvReac Type Severity Reaction Status Date / Time Latex, Natural Rubber Allergy Mild Rash Verified 08/15/25 11:20 Family History Father Colon cancer Mother Hypertension Surgical History S/P D&C (status post dilation and curettage) Status post amputation of finger S/P bladder repair History of left hip replacement H/O thyroidectomy History of right hip replacement Social History household members: none Smoking Status: Never smoker additional social history: Single ROS ROS Narrative General: Denies fever/chills HENT: Did have a sore throat but this is resolved EYES: Denies changes in vision Resp: No productive cough, has been feeling more weak and short of breath with ambulation Cardiac: Denies chest pain GI: Maybe some vague abdominal pain, significant amount of diarrhea over the past couple of months : Denies any burning on urination Extremity: Denies swelling MSK: Feeling generally weak and achy Neuro: Denies any numbness/tingling Heme: Denies any bleeding or bruising Skin: Has labial pain and thickening as above Psychiatric: No complaints voiced Vital Signs Vital Signs Vital Signs: 08/15/25 11:11 08/15/25 11:18 08/15/25 11:20 Temperature 97.6 F L 97.6 F L Temperature Source Oral Oral Pulse Rate 60 60 Respiratory Rate 17 17 Respiratory Effort Normal Non-Labored Respiratory Pattern Normal Blood Pressure 89/51 L 89/51 L Blood Pressure Mean 63 63 Pulse Ox 100 100 Oxygen Delivery Method Room Air Nasal Cannula 08/15/25 12:18 08/15/25 12:27 08/15/25 12:33 Temperature 97.9 F Temperature Source Oral Pulse Rate 57 L 57 L Respiratory Rate 18 20 H Respiratory Effort Respiratory Pattern Blood Pressure 89/44 L Blood Pressure Mean 59 Pulse Ox 100 100 100 Oxygen Delivery Method Room Air Room Air 08/15/25 12:45 08/15/25 13:00 08/15/25 13:00 Temperature 97.8 F Temperature Source Oral Pulse Rate 57 L 60 61 Respiratory Rate 21 H 14 17 Respiratory Effort Respiratory Pattern Blood Pressure 91/60 100/54 L 100/54 L Blood Pressure Mean 69 69 69 Pulse Ox 99 100 100 Oxygen Delivery Method Room Air 08/15/25 13:15 08/15/25 13:30 08/15/25 13:45 Temperature Temperature Source Pulse Rate 60 65 65 Respiratory Rate 14 18 22 H Respiratory Effort Respiratory Pattern Blood Pressure 95/49 L 87/46 L 88/45 L Blood Pressure Mean 62 59 60 Pulse Ox 100 100 Oxygen Delivery Method 08/15/25 14:00 08/15/25 14:15 08/15/25 14:15 Temperature Temperature Source Pulse Rate 80 Respiratory Rate 32 H 19 H Respiratory Effort Respiratory Pattern Blood Pressure 130/112 H 93/51 L 93/51 L Blood Pressure Mean 119 65 65 Pulse Ox Oxygen Delivery Method 08/15/25 14:30 08/15/25 14:45 08/15/25 15:00 Temperature 97.9 F Temperature Source Oral Pulse Rate 64 73 62 Respiratory Rate 17 21 H 16 Respiratory Effort Respiratory Pattern Blood Pressure 89/66 L 110/56 L 100/52 L Blood Pressure Mean 69 70 68 Pulse Ox 90 100 Oxygen Delivery Method Room Air 08/15/25 15:00 08/15/25 15:22 08/15/25 16:00 Temperature 97.9 F 97.9 F Temperature Source Oral Pulse Rate 72 62 66 Respiratory Rate 22 H 16 19 H Respiratory Effort Respiratory Pattern Blood Pressure 100/54 L 100/52 L 91/58 L Blood Pressure Mean 69 68 69 Pulse Ox 100 100 Oxygen Delivery Method Room Air 08/15/25 17:00 Temperature 97.8 F Temperature Source Oral Pulse Rate 69 Respiratory Rate Respiratory Effort Respiratory Pattern Blood Pressure 104/56 L Blood Pressure Mean 72 Pulse Ox 97 Oxygen Delivery Method Room Air Weight Weight: 68.9 kg Body Mass Index (BMI) 29.6 Physical Exam Narrative General: Alert, no apparent distress HEENT: Atraumatic, normocephalic Eyes: Anicteric, normal conjunctiva, extraocular movements grossly intact Neck: Supple Respiratory: Clear to auscultation bilaterally, normal respiratory effort Cardiovascular: Regular rate and rhythm GI: Soft, seem to have a little bit of discomfort with palpation more in suprapubic region without any rebound, guarding, rigidity, nondistended Extremities: No edema Musculoskeletal: Moving all extremities Neuro: No overt focal neurological deficits Skin: Right labia thickened, superior area with small amount of pus drainage, erythema surrounding other areas without any overt drainage appreciated Psych: Cooperative but tangential and fairly poor historian Results Lab / Micro Data 08/15/25 11:56 08/15/25 11:56 Labs: Laboratory Results - last 24 hr 08/15/25 11:56: WBC 5.2, RBC 3.41 L, Hgb 10.8 L, Hct 30.8 L, MCV 90.3, MCH 31.7, MCHC 35.1, RDW Std Deviation 46.1 H, RDW Coeff of Gisela 14.0, Plt Count 173, MPV 9.8, Immature Gran % (Auto) 0.400, Neut % (Auto) 83.3 H, Lymph % (Auto) 5.4 L, [place] % (Auto) 9.9, Eos % (Auto) 0.8, Baso % (Auto) 0.2, Absolute Neuts (auto) 4.3, Absolute Lymphs (auto) 0.28 L, Nucleated RBC % 0, PT 13.8, INR 1.0, APTT 31.1, Sodium 127 L, Potassium 4.7, Chloride 96 L, Carbon Dioxide 17.0 L, Anion Gap 13, BUN 55 H, Creatinine 2.68 H, Estim Creat Clear Calc 15.47 L, Est GFR (MDRD) Non-Af 18 L, BUN/Creatinine Ratio 20.6 H, Glucose 136 H, Lactic Acid 1.0, Calcium 8.9, Total Bilirubin 0.47, AST 72 H, ALT 91 H, Alkaline Phosphatase 73, Total Protein 5.4 L, Albumin 3.5, Globulin 1.9 L, Albumin/Globulin Ratio 1.8 08/15/25 13:10: Urine Color Yellow, Urine Clarity Clear, Urine pH 5.0, Ur Specific [place] 1.010, Urine Protein 15 H, Urine Glucose (UA) Normal, Urine Ketones Negative, Urine Occult Blood 10 H, Urine Nitrite Negative, Urine Bilirubin Negative, Urine Urobilinogen Normal, Ur Leukocyte Esterase Negative, Urine RBC 0-5 SEEN, Urine WBC 0-5 SEEN, Ur Squamous Epith Cells 0-5 SEEN, Urine Bacteria 0 SEEN, Hyaline Casts 0-5 SEEN, Urine Mucus 1+ Imaging Radiology Impression Pelvis CT 08/15/25 14:35 IMPRESSION: Findings suggestive of residual thickening of the right labia majora towards the mid and inferior portions. A tiny amount of air is seen within its suggestive of recent drainage. Reading Location: [facility] Assessment & Plan Assessment/Plan (1) Sepsis: QUALIFIERS: Sepsis type: sepsis due to unspecified organism Sepsis acute organ dysfunction status: unspecified Qualified Code(s): A41.9 - Sepsis, unspecified organism PLAN: Plan # Sepsis suspect secondary to right labial cellulitis in the setting of hidradenitis suppurativa - Patient with hypotension, tachypnea, bicarb of 17 with renal failure with a creatinine of 2.68 up from baseline of around 0.9 with neutrophil predominance on CBC with suspected source right labial lesion - 2 L of IVF ordered in the ED, will give an additional 500 bolus followed by maintenance fluids to complete the 30 cc/kg -Broad-spectrum antibiotics -Blood cultures -UA does not appear infectious -Keep area clean and dry - Discussed with gynecology and consult placed, area spontaneously draining, no acute surgical needs at this time - Culture of labial wound drainage sent - As advised hot compresses on and off for 15 minutes - Patient started on vancomycin and Unasyn in the ED and this was continued # Acute renal failure - Baseline creatinine around 0.9, creatinine now 2.68 - Suspect secondary to volume depletion with patient's diarrhea on top of her sepsis/acute infection and Aleve use in addition to her spironolactone, lisinopril, and Lasix - IV fluids - If not improving can consider further workup and possibly nephrology consultation - Monitor daily weights and I's and O's -Hold home Lasix as well as home spironolactone and lisinopril # Hyponatremia - Possibly secondary to volume depletion - Appears patient averages in the mid 130s - On presentation sodium 127 - Does note significant diarrhea and does appear dry - Continue IV fluids - If no improvement consider further serum and urine studies #Diarrhea - Unclear etiology, denies any significant abdominal pain, has some vague complaints on deep palpation but no alarm signs - IV fluids - Will obtain stool studies #Gout -Continue home allopurinol #Hypertension - Hold home antihypertensives due to hypotension # Cognitive impairment -Supportive care -Continue home medications #Hypothyroidism -Continue Synthroid #DVT ppx: SCDs Valarie Keene MD Time spent in the patient's overall evaluation, decision-making process, review of diagnostic data, adjustment of management, discussion with other providers, nursing and ancillary staff involved in patient's care documentation, 79 Minutes Sepsis Attestation Sepsis Alert: Yes Sepsis Attestation: Agree w/Sepsis Date exam was performed: 08/15/25 Time exam was performed: 15:30 Possible Source of Sepsis: Skin/soft tissue Sepsis Organ Dysfunction Criteria Present: SBP < 90 mmHg or MAP < 65 mmHg, Creatinine > 2.0 mg/dL and Serum CO2 < 20 mmol/L (on BMP) Fluid Resuscitation Fluid resuscitation indicated?: Yes Fluid Resuscitation ordered: 30 ml/kg fluid bolus ordered Sepsis Note Date exam was performed: 08/15/25 Time exam was performed: 17:30 Sepsis Attestation: Sepsis re-evaluation was performed Response to fluids: Fluid responsive hypotension Charges/Coding Visit Charges Inpatient E&M: 63531 Init Hosp L3
--- NOTE | 2025-08-15 17:39 | PN.OBGYN_ITS ---
Subjective Subjective patient seen due to patient known to change management lead, labial cellulitis history of hidradenitis suppriva, follows with wound center and plastics. admitted for sepsis today with this. Objective Data Objective Data Vital Signs: Vital Signs Temp Pulse Resp BP Pulse Ox O2 Del Method 97.8 F 69 19 H 104/56 L 97 Room Air 08/15/25 17:00 08/15/25 17:00 08/15/25 16:00 08/15/25 17:00 08/15/25 17:00 08/15/25 17:00 Oxygen Delivery Method Room Air Weight: 151 lb 14.376 oz Body Mass Index (BMI) 29.6 Intake & Output: Intake and Output for Last 24 Hours 08/13/25 08/14/25 08/15/25 23:59 23:59 23:59 Intake Total 3635 / 3635 Balance 3635 / 3635 Lab / Micro Data 08/15/25 11:56 08/15/25 11:56 Labs: Laboratory Results - last 24 hr 08/15/25 11:56: WBC 5.2, RBC 3.41 L, Hgb 10.8 L, Hct 30.8 L, MCV 90.3, MCH 31.7, MCHC 35.1, RDW Std Deviation 46.1 H, RDW Coeff of Gisela 14.0, Plt Count 173, MPV 9.8, Immature Gran % (Auto) 0.400, Neut % (Auto) 83.3 H, Lymph % (Auto) 5.4 L, [place] % (Auto) 9.9, Eos % (Auto) 0.8, Baso % (Auto) 0.2, Absolute Neuts (auto) 4.3, Absolute Lymphs (auto) 0.28 L, Nucleated RBC % 0, PT 13.8, INR 1.0, APTT 31.1, Sodium 127 L, Potassium 4.7, Chloride 96 L, Carbon Dioxide 17.0 L, Anion Gap 13, BUN 55 H, Creatinine 2.68 H, Estim Creat Clear Calc 15.47 L, Est GFR (MDRD) Non-Af 18 L, BUN/Creatinine Ratio 20.6 H, Glucose 136 H, Lactic Acid 1.0, Calcium 8.9, Total Bilirubin 0.47, AST 72 H, ALT 91 H, Alkaline Phosphatase 73, Total Protein 5.4 L, Albumin 3.5, Globulin 1.9 L, Albumin/Globulin Ratio 1.8 08/15/25 13:10: Urine Color Yellow, Urine Clarity Clear, Urine pH 5.0, Ur Specific [place] 1.010, Urine Protein 15 H, Urine Glucose (UA) Normal, Urine Ketones Negative, Urine Occult Blood 10 H, Urine Nitrite Negative, Urine Bilirubin Negative, Urine Urobilinogen Normal, Ur Leukocyte Esterase Negative, Urine RBC 0-5 SEEN, Urine WBC 0-5 SEEN, Ur Squamous Epith Cells 0-5 SEEN, Urine Bacteria 0 SEEN, Hyaline Casts 0-5 SEEN, Urine Mucus 1+ Radiography Diagnostic Testing: Radiology Impression Pelvis CT 08/15/25 14:35 IMPRESSION: Findings suggestive of residual thickening of the right labia majora towards the mid and inferior portions. A tiny amount of air is seen within its suggestive of recent drainage. Reading Location: [address] ROS Narrative poor historian, patient states she feels like the area increases and decreases in size daily when she puts pressure on the area Physical Exam Const alert and no apparent distress Neck full ROM Chest inspection of chest normal Resp normal respiratory effort Cardio regular rate and regular rhythm GI soft to palpation, non-tender and non-distended Narrative: right labia with multiple fistualous tracks, all spontaneously draining cultures sent, tender and no areas of palpable nondrainage seen that need to be opened. erythema seen. Assessment & Plan (1) Sepsis: (2) Cellulitis of labia majora: PLAN: Plan discussed with medicine staff, agree with admit to the floor and IV antibiotics, no surgical drainage or debridement indicated at this time. continue to follow to ensure clinical improvement with antibiotics.
--- OUTSIDE RECORDS SUMMARY | 2025-08-15 17:51 | XMS RPT_ITS | CCD ---
Author Organization [facility] Care Team Providers Care Roller Printer Name Role Phone Mateo Marmolejo MD Primary Care Provider Mateo Marmolejo MD Primary Care Provider Sissen PSS, Lazaro Unavailable Unavailable Sissen PSS, Lazaro Unavailable Unavailable Mateo Marmolejo MD Primary Care Provider Sissen PSS, Lazaro Unavailable Unavailable Mateo Marmolejo MD Primary Care Provider JULIO CESAR DELUNA Referring Unavailable MATEO MARMOLEJO Primary Care Unavailable MATEO MARMOLEJO Primary Care Unavailable PROVIDER, UNKNOWN Referring Unavailable MATEO MARMOLEJO Primary Care Unavailable SURACE, PETER Referring Unavailable MATEO MARMOLEJO Primary Care Unavailable SURACE, JULIO CESAR Admitting Unavailable SURACE, JULIO CESAR Attending Unavailable BYRON KNIGHT Consulting Unavailable MATEO MARMOLEJO Primary Care Unavailable SURACE, PETER Admitting Unavailable SURACE, PETER Attending Unavailable MELISSA KNIGHTL Eric Consulting Unavailable MATEO MARMOLEJO Primary Care Unavailable SURACE, PETER Referring Unavailable MATEO MARMOLEJO Primary Care Unavailable Antoineoble REAL ESTATE DEVELOPER.FINISHING TUNNEL OPERATOR, Ramiro Unavailable Mil MEDEL, Alida Unavailable SARAH YING Referring Unavailable MATEO MARMOLEJO Primary Care Unavailable Dr. Mateo Marmolejo MD Primary Care Provider Dr. Kathleen Winkler DO Attending Provider Dr. Kathleen Winkler DO Emergency Provider Dr. Mateo Marmolejo MD Referring Provider Dr. Shayla Fay DO Attending Provider Dr. Kasi Eugene MD Attending Provider Berto JULES, Dr. Perry Attending Provider Vianca Green DO, Dr. Mcguire Referring Provider Vianca Green DO, Dr. Mcguire Other Provider [phone] Danielle REAL ESTATE DEVELOPER.FINISHING TUNNEL OPERATOR, Ramiro Unavailable Mil MEDEL, Alida Unavailable Bailey JULES, Dr. Galindo Primary Care Provider Bailey JULES, Dr. Galindo Referring Provider Vianca Green DO, Dr. Mcguire Attending Provider Valorie JULES, Dr. Villaseñor Referring Provider Valorie JULES, Dr. Villaseñor Other Provider [phone] Chucho CHU, Julia Attending Provider Hu JULES, Dr. Ravi Attending Provider Hu JULES, Dr. Ravi Referring Provider Bailey JULES, Dr. Galindo Primary Care Provider [phone] Dr. Mateo Marmolejo MD Referring Provider Valorie JULES, Dr. Villaseñor Attending Provider Bailey JULES, Dr. Galindo Primary Care Provider [phone] Dr. Shayla Fay DO Referring Provider Veronica JULES, Sarah Unavailable Bailey JULES, Dr. Galindo Primary Care Provider Dr. Shayla Fay DO Attending Provider Dr. Kasi Eugene MD Referring Provider [phone] Valorie JULES, Dr. Villaseñor Other Provider [phone] Gabriela JULES, Dr. Benítez Attending Provider Vianca Green DO, Dr. Mcguire Referring Provider Bailey JULES, Dr. Galindo Primary Care Provider Bailey JULES, Dr. Galindo Referring Provider Gabriela JULES, Dr. Benítez Attending Provider Vianca Green DO, Dr. Mcguire Attending Provider Leonor BOX, Dr. Briscoe Attending Provider Trena JULES, Vanessa Unavailable Rachna Galvez DO Unavailable Bailey JULES, Mateo A Unavailable Bailey JULES, Dr. Galindo Primary Care Physician Valorie JULES, Dr. Villaseñor Attending Physician [phone] Valorie JULES, Dr. Villaseñor Nurse Practitioner Chucho NP-C, Julia Attending Physician Hu JULES, Dr. Ravi Attending Physician Gabriela JULES, Dr. Benítez Attending Physician Vianca Green DO, Dr. Mcguire Attending Physician Leonor BOX, Dr. Briscoe Attending Physician Bailey, Mateo Primary Care Unavailable Shayla Fay Attending Unavailabl e Shayla Fay Consulting Unavailabl e Shayla Fay Referring Unavailabl Hawk Matr Attending Unavailable Bailey, Mateo Primary Care Unavailable Bailey, Mateo Referring Unavailable Siska, Kasi Referring Unavailable Siska, Kasi Attending Unavailable Siska, Kasi Consulting Unavailable Bailey, Mateo Primary Care Unavailable Siska, Kasi Referring Unavailable Siska, Kasi Attending Unavailable Siska, Kasi Consulting Unavailable Bailey, Mateo Primary Care Unavailable Bailey, Mateo Primary Care Unavailable Bailey, Mateo Referring Unavailable MalRachna morrissey Attending Unavailable Bailey, Mateo Primary Care Unavailable Jackelin Ochoa Referring Unavailable Jackelin Ochoa Attending Unavailable Siska, Kasi Attending Unavailable Siska, Kasi Referring Unavailable Bailey, Mateo Primary Care Unavailable Siska, Kasi Referring Unavailable Bailey, Mateo Primary Care Unavailable Malys Rachna Attending Unavailable Bailey, Mateo Primary Care Unavailable Shayla Fya Referring Unavailabl [place] Attending Unavailabl e Siska, Kasi Attending Unavailable Siska, Kasi Consulting Unavailable Siska, Kasi Referring Unavailable Bailey, Mateo Primary Care Unavailable Bailey, Mateo Referring Unavailable Chucho ELAINE, Julia Attending Unavailable Bailey, Mateo Primary Care Unavailable Siska, Kasi Referring Unavailable Bailey, Mateo Primary Care Unavailable Rachna Galvez Attending Unavailable Siska, Kasi Referring Unavailable Bailey, Mateo Primary Care Unavailable MalRachna morrissey Attending Unavailable Bailey, Mateo Primary Care Unavailable Shayla Fay Referring Unavailabl e Shayla Fay Attending Unavailabl e Sisalex, Kasi Attending Unavailable Siska, Kasi Referring Unavailable Bailey, Mateo Primary Care Unavailable Breonna Lui Attending Unavailable Bailey, Mateo Primary Care Unavailable Breonna Lui Referring Unavailable Baiely, Mateo Primary Care Unavailable Shayla Fay Attending UnavailShayla Lima Referring Unavailabl e Sisalex, Kasi Attending Unavailable Siska, Kasi Referring Unavailable Bailey, Mateo Primary Care Unavailable Bailey, Mateo Primary Care Unavailable Breonna Lui Attending Unavailable Breonna Lui Referring Unavailable Shayla Fay Attending Unavailabl e Bailey, Mateo Primary Care Unavailable Bailey, Mateo Referring Unavailable Kathleen Winkler Attending Unavailable Bailey, Mateo Primary Care Unavailable Baliey, Mateo Primary Care Unavailable Bailey, Mateo Referring Unavailable Shayla Fay Attending Unavailabl e Kasi Eugene Attending Unavailable Bailey, Mateo Primary Care Unavailable Bailey, Mateo Referring Unavailable Siska, Kasi Attending Unavailable Bailey, Mateo Primary Care Unavailable Bailey, Mateo Referring Unavailable Bailey, Mateo Primary Care Unavailable Bailey, Mateo Referring Unavailable Shayla Fay Attending Unavailabl e SARAH YING Attending Unavailable BAILEY, MATEO Primary Care Unavailable BAILEY, MATEO Primary Care Unavailable SELF Referring Unavailable LÓPEZ RANDALL Attending Unavailable BAILEY, MATEO Primary Care Unavailable LÓPEZ RANDALL Attending Unavailable BAILEY, MATEO Primary Care Unavailable SARAH YING Referring Unavailable BAILEY, MATEO Primary Care Unavailable JAI PATINO Attending Unavailable BAILEY, MATEO Primary Care Unavailable KNOBLE, RAMIRO Referring Unavailable HAAGEN, SENDY Referring Unavailable BAILEY, MATEO Primary Care Unavailable BAILEY, MATEO Primary Care Unavailable TAYETA, SARAH Attending Unavailable BAILEY, MATEO Primary Care Unavailable BAILEY, MATEO Primary Care Unavailable ESTHER AJ Referring Unavailable HAAGEN, SENDY Referring Unavailable BAILEY, MATEO Primary Care Unavailable KIKA CANDELARIAY Attending Unavailable BAILEY, MATEO Primary Care Unavailable BAILEY, MATEO Primary Care Unavailable LÓPEZ RANDALL Referring Unavailable TESTLÓPEZ TEJADA Attending Unavailable BAILEY, MATEO Primary Care Unavailable KNOBLE, RAMIRO Attending Unavailable GANTA, SARAH Attending Unavailable BAILEY, MATEO Primary Care Unavailable SELF Referring Unavailable BAILEY, MATEO Primary Care Unavailable BAILEY, MATEO Referring Unavailable BAILEY, MATEO Primary Care Unavailable BAILEY, MATEO Attending Unavailable BAILEY, MATEO Primary Care Unavailable BAILEY, MATEO Referring Unavailable JAI PATINO Attending Unavailable TAYETA, SARAH Attending Unavailable BAILEY, MATEO Primary Care Unavailable BAILEY, MATEO Referring Unavailable GANTA, SARAH Referring Unavailable BAILEY, MATEO Primary Care Unavailable NELSON AMADO Attending Unavailable GANTA, SARAH Referring Unavailable BAILEY, MATEO Primary Care Unavailable NELSON AMADO Attending Unavailable BAILEY, MATEO Primary Care Unavailable BAILEY, MATEO Referring Unavailable BAILEY, MATEO Primary Care Unavailable GANTA, SARAH Attending Unavailable BAILEY, MATEO Primary Care Unavailable BAILEY, MATEO Primary Care Unavailable BAILEY, MATEO Primary Care Unavailable LÓPEZ RANDALL Attending Unavailable BAILEY, MATEO Primary Care Unavailable KNNITIN, RAMIRO Referring Unavailable BAILEY, MATEO Referring Unavailable BAILEY, MATEO Primary Care Unavailable Allergies Allergy Classification Reported Allergen(s) Allergy Type Date of Onset Reaction(s) Facility Latex (4 sources) Latex Substance Allergy 03-07-2021 Unknown [facility] Work Phone: (20 sources) Latex; Translations: [LATEX] Drug Allergy 03-07-2021 Unknown [facility] Work Phone: (12 sources) natural latex rubber Allergy to substance 01-18-2025 Rash [facility] (1 source) natural latex rubber Drug allergy (disorder) 05-04-2025 [facility] Repository Medications Current Medications Medication Drug Class(es) Dates Sig (Normalized) Sig (Original) allopurinol 300 mg oral tablet (20 sources) Xanthine Oxidase Inhibitor Start: 07-28-2024 End: 12-21-2024 take 1 tablet by mouth once daily allopurinol (ZYLOPRIM) 300 mg tablet Take 1 tablet by mouth once daily. For gout. 90 tablet 1 06/03/2025 Active amLODIPine 10 mg oral tablet (20 sources) Dihydropyridine Calcium Channel Sully Start: 12-15-2023 End: 05-10-2025 take 1 tablet by mouth once daily Start: 11-06-2023 End: 12-15-2023 take 1 tablet by mouth once daily amLODIPine (NORVASC) 5 mg tablet Indications: Essential hypertension, benign Take 1 tablet by mouth once daily. 30 tablet 0 11/06/2023 12/15/2023 Discontinued Comment on above: Take 1 tablet by berkley once daily. benoxinate hydrochloride 4 mg/ml / fluorescein sodium 2.5 mg/ml ophthalmic solution (2 sources) Diagnostic Dye Start: 03-20-2022 End: 03-20-2022 fluorescein-benoxi mak 0.25-0.4 % 1 Drop (FLURESS) Start: 02-15-2022 End: 02-16-2022 fluorescein-benoxinate 0.25- 0.4 % 1 Drop (FLURESS) cefadroxil 500 mg oral capsule (20 sources) Cephalosporin Antibacterial Start: 04-05-2024 End: 04-10-2024 take 1 capsule by mouth twice daily cefADROxil (DURICEF) 500 mg capsule Take 1 capsule by mouth two times a day for 5 days. 10 capsule 0 04/05/2024 04/10/2024 Active Start: 01-09-2023 End: 06-26-2023 take 1 capsule by mouth twice daily cefADROxil (DURICEF) 500 mg capsule Take 1 capsule by mouth twice daily. 20 capsule 0 01/09/2023 06/26/2023 Discontinued Comment on above: Take 1 capsule by mo [facility] twice daily. donepezil hydrochloride 10 mg oral tablet (20 sources) Start: 04-06-2025 take 1 tablet by mouth once daily at bedtime donepezil (ARICEPT) 10 mg tablet Take 1 tablet by mouth daily at bedtime. 30 tablet 11 04/06/2025 Active Start: 12-29-2024 End: 04-21-2025 take 1 tablet by mouth once daily ferrous sulfate 325 mg oral tablet (3 sources) Start: 06-26-2023 End: 07-03-2023 take 1 tablet by mouth once daily at lunch ferrous sulfate 325 mg (65 mg iron) tablet Take 1 tablet by mouth daily with lunch for 7 doses. 7 tablet 0 06/26/2023 07/03/2023 Active Comment on above: Take 1 tablet by berkley th daily with lunch for 7 doses. fluconazole 100 mg oral tablet (4 sources) Azole Antifungal Start: 04-05-2024 End: 04-12-2024 take 1 tablet by mouth once daily fluconazole (DIFLUCAN) 100 mg tablet Take 1 tablet by mouth once daily for 7 days. 7 tablet 0 04/05/2024 04/12/2024 Active furosemide 40 mg oral tablet (20 sources) Loop Diuretic Start: 09-17-2023 End: 05-10-2025 take 1 tablet by mouth once daily Start: 09-17-2023 End: 09-17-2023 take 1 tablet by mouth twice daily furosemide (LASIX) 20 mg tablet Indications: Bilateral leg edema Take 1 tablet by mouth two times a day. 60 tablet 0 09/17/2023 09/17/2023 Discontinued Start: 08-11-2023 End: 09-17-2023 take 1 tablet by mouth once daily furosemide (LASIX) 20 mg tablet Take 1 tablet by mouth once daily. 90 tablet 1 08/11/2023 09/17/2023 Discontinued Comment on above: Take 1 tablet by berkley th once daily. Take 1 tablet by berkley th two times a day. TAKE 1 TABLET BY BERKLEY TH EVERY DAY gabapentin 300 mg oral capsule (5 sources) Anti-epileptic Agent Start: take 1 capsule by mouth twice daily as needed for pain levothyroxine sodium 0.15 mg oral tablet (20 sources) l-Thyroxine Start: End: 5 take 1 tablet by mouth once daily levothyroxine (LEVOXYL) 150 mcg tablet Indications: Postsurgical hypothyroidism Take 1 tablet by mouth once daily. Mon-Fri and none on Friday. PLEASE MAIL TO PATIENT'S HOME - PILL FILI 90 tablet 1 02/10/2025 Active Start: 08-12-2023 End: 07-26-2024 levothyroxine (LEVOXYL) 150 mcg tablet Take 1 tablet by mouth once daily. Mon-Sat and 1/2 a tab on Friday. 90 tablet 1 02/26/2024 Active Start: 01-09-2023 End: 08-12-2023 take 1 tablet by mouth once daily levothyroxine (SYNTHROID) 137 mcg tablet Take 1 tablet by mouth once daily. 90 tablet 1 01/09/2023 08/11/2023 Discontinued Start: 12-06-2021 End: 12-24-2022 take 1 tablet by mouth once daily levothyroxine (SYNTHROID) 137 mcg tablet Take 1 tablet by mouth once daily. 30 tablet 0 12/24/2022 Active Start: 01-06-2020 Comment on above: Take 1 tablet by berkley th once daily. Take 1 tablet by berkley th once daily. Take on empty stomach. For Thyroid. Take 1 tablet by berkley th once daily. Mon-Sat and 1/2 a tab on Friday. lisinopril 40 mg oral tablet (20 sources) Angiotensin Converting Enzyme Inhibitor Start: 11-06-2023 End: 05-10-2025 take 1 tablet by mouth once daily lisinopril (ZESTRIL) 40 mg tablet Indications: Essential hypertension, benign Take 1 tablet by mouth once daily. PLEASE MAIL TO PATIENT'S HOME - PILL FILI 90 tablet 1 05/10/2025 Active Start: 10-16-2023 take 2 tablets by mo uth once daily lisinopril (ZESTRIL) 20 mg tablet Indications: Essential hypertension, benign Take 2 tablets by mouth once daily. 0 10/16/2023 Active Start: 10-15-2023 End: 10-16-2023 take 1 tablet by mouth once daily lisinopril (ZESTRIL) 20 mg tablet Indications: Essential hypertension, benign TAKE 1 TABLET BY MOUTH EVERY DAY 90 tablet 1 10/15/2023 10/16/2023 Discontinued Start: 09-17-2023 take 1 tablet by berkley th once daily lisinopril (ZESTRIL) 20 mg tablet Indications: Essential hypertension, benign Take 1 tablet by mouth once daily. 30 tablet 0 09/17/2023 Active Start: 01-09-2023 End: 09-17-2023 take 1 tablet by mouth once daily lisinopril (ZESTRIL) 10 mg tablet Take 1 tablet by mouth once daily. 90 tablet 04/22/2023 07/30/2023 Discontinued Start: 10-07-2022 take 1 tablet by berkley th once daily lisinopril (ZESTRIL, PRINIVIL) 10 mg tablet Take 1 tablet by mouth once daily. 90 tablet 0 10/07/2022 Active Start: 09-17-2021 End: 10-05-2022 take 1 tablet by mouth once daily lisinopril (ZESTRIL, PRINIVIL) 10 mg tablet Take 1 tablet by mouth once daily. 90 tablet 1 03/28/2022 10/05/2022 Discontinued Start: 01-06-2020 take 4 tablets by mo ut once daily Comment on above: Take 1 tablet by berkley th once daily. Take 2 tablets by mo uth once daily. TAKE 1 TABLET BY BERKLEY TH EVERY DAY LORazepam 1 mg oral tablet (3 sources) Benzodiazepine Start: 11-10-19 End: 11-24-19 LORazepam (ATIVAN) 1 mg tablet Indications: anxiety Take half tablet, an hour before the procedure and if it does not work, take it again half hour before the MRI testing. 1 tablet 11/10/2024 11/24/2024 Active mecobalamin 1 mg chewable tablet (12 sources) Start: 12-10-19 take 1 tablet by mouth once daily mupirocin 0.02 mg/mg topical ointment (1 source) RNA Synthetase Inhibitor Antibacterial Start: 06-13-20 End: 06-18-20 mupirocin (BACTROBAN) 2 % ointment Indications: Preoperative examination twice daily for 5 days. Apply 0.5 inch with cotton swab (Q-tip) to each nostril in the morning and evening for 5 days prior to and including day of surgery. 22 g 0 06/13/2023 06/18/2023 Active Comment on above: twice daily for 5 da ys. Apply 0.5 inch with cotton swab (Q- tip) to each nostril in the morning and evening for 5 days prior to and including day of surgery. perflutren lipid microspheres 1.3 mL in NaCl (PF) 0.9% 10 mL injection (DEFINITY) (1 source) Start: 08-12-20 End: 08-19-20 perflutren lipid microspheres 1.3 mL in NaCl (PF) 0.9% 10 mL injection (DEFINITY) phenylephrine hydrochloride 25 mg/ml ophthalmic solution (4 sources) alpha-1 Adrenergic Agonist Start: 08-16-20 End: 08-16-20 PHENYLephrine 2.5 % 1 Drop (AK-DILATE, MONICA-SYNEPHRINE) Start: 08-16-2024 End: 08-16-2024 1 Drop, BOTH EYES, DIRECT ED, Starting on Fri08/16/24 at 0900, Until Fri08/16/24 at 2058, Administer for dilation PROTECT FROM LIGHT Start: 03-20-2022 End: 03-20-2022 PHENYLephrine 2.5 % 1 Drop ( AK-DILATE, MONICA-SYNEPHRINE) Start: 02-15-2022 End: 02-16-2022 PHENYLephrine 2.5 % 1 Drop ( AK-DILATE, MONICA-SYNEPHRINE) polyethylene glycol 3350 19123 mg powder for oral solution (20 sources) Osmotic Laxative Start: 04-26-2024 polyethylene glycol 3350 17 gram packet Take 1 Packet by mouth once daily. Dissolve dose in 4 - 8 ounces of liquid and take as directed. 04/26/2024 Active Start: 06-26-2023 End: 07-26-2023 polyethylene glycol 3350 17 gram packet Take 1 Packet by mouth once daily. Dissolve dose in 4 - 8 ounces of liquid and take as directed. 30 Packet 06/26/2023 07/26/2023 Comment on above: Take 1 Packet by berkley once daily. Dissolve dose in 4 - 8 ounces of liquid and take as directed. potassium chloride 20 meq extended release oral tablet (20 sources) Start: 4 End: 5 take 1 tablet by mouth once daily pravastatin sodium 10 mg oral tablet (20 sources) HMG-CoA Reductase Inhibitor Start: 3 End: 5 take 1 tablet by mouth at bedtime Comment on above: Take 1 tablet by berkley th once daily. TAKE 1 TABLET BY BERKLEY EVERY DAY proparacaine hydrochloride 5 mg/ml ophthalmic solution (2 sources) Local Anesthetic Start: End: proparacaine 0.5 % 1 Drop (ALCAINE) Start: 08-16-2024 End: 08-16-2024 1 Drop, BOTH EYES, DIRECT ED, Starting on Fri08/16/24 at 0900, Until Fri08/16/24 at 2058, Administer for pneumo tonometry, tonopen tonometry, or pachymetry. In the event of a proparacaine shortage, administer tetracaine 0.5% ophthalmic drops 1 drop in the left eye as directed for pneumo tonometry, tonopen tonometry, or pachymetry silver sulfADIAZINE 10 mg/ml topical cream (20 sources) Sulfonamide Antibacterial Start: 08-06-2024 silver sulfADIAZINE (SILVADENE) 1 % cream 08/06/2024 Active Start: 08-06-2024 silver sulfADI AZINE (SILVADENE) 1 % cream APPLY TO AFFECTED AREA TWICE A DAY WITH 1.5MM THICKNESS 08/06/2024 Active Start: 08-06-2024 End: 12-10-2024 Silver Sulfadiazine (Ssd) 1 % cream Discontinued 1 NMA TOPICAL TWICE A DAY 400 0 August 06, 2024 12:00am December 10, 2024 10:42am apply a 1.5 mm thickness 125 ml sodium chloride 9 mg/ml prefilled syringe (1 source) Start: 08-12-2023 End: 08-19-2023 sodium chloride 0.9 % (flush) 10 mL (BD POSIFLUSH) spironolactone 100 mg oral tablet (5 sources) Aldosterone Antagonist Start: 05-04-2025 take 1 tablet by mouth once daily tropicamide 10 mg/ml ophthalmic solution (4 sources) Anticholinergic Start: 08-16-2024 End: 08-16-2024 tropicamide 1 % 1 Drop (MYDRIACYL) Start: 08-16-2024 End: 08-16-2024 1 Drop, BOTH EYES, DIRECT ED, Starting on Fri08/16/24 at 0900, Until Fri08/16/24 at 2058, Administer for dilation Start: 03-20-2022 End: 03-20-2022 tropicamide 1 % 1 Drop (MYDR IACYL) Start: 02-15-2022 End: 02-16-2022 tropicamide 1 % 1 Drop (MYDR IACYL) vitamin b12 1 mg oral tablet (20 sources) Vitamin B12 Start: 08-11-2024 End: 01-18-2025 take 1 tablet by mouth once daily cyanocobalamin (VITAMIN B-12) 1,000 mcg tab Take 1 tablet by mouth once daily. 30 tablet 5 01/19/2025 Active Start: 07-26-2024 End: 08-11-2024 take 1 tablet by mouth once daily cyanocobalamin (VITAMIN B-12) 500 mcg tablet Take 1 tablet by mouth once daily. 07/26/2024 08/11/2024 Discontinued Completed/Discontinued Medications Medication Drug Class(es) Dates Sig (Normalized) Sig (Original) acetaminophen 500 mg oral tablet (20 sources) Start: 08-06-2024 End: 12-10-2024 Acetaminophen (Pain Reliever (Acetaminophen)) 500 mg tablet Discontinued 1000 mg PO EVERY 6 HOURS as needed for pain August 06, 2024 12:00am December 10, 2024 10:42am Start: 04-25-2024 take 2 tablets by mo uth every eight hours as needed acetaminophen (TYLENOL) 500 mg tablet Take 2 tablets by mouth every 8 hours as needed for pain. 04/25/2024 Active Start: 06-26-2023 End: 11-06-2023 take 2 tablets by mouth every eight hours as needed acetaminophen (TYLENOL) 500 mg tablet Take 2 tablets by mouth every 8 hours as needed for pain. 90 tablet 06/26/2023 11/06/2023 Discontinued Comment on above: Take 2 tablets by mo uth every 8 hours as needed for pain. amoxicillin 500 mg oral capsule (20 sources) Penicillin-class Antibacterial Start: 12-01-19 End: 01-08-20 take 4 capsules by mouth every hour amoxicillin (AMOXIL) 500 mg capsule Indications: Status post left hip replacement , Status post right hip replacement Please take 4 capsules by mouth 1 (one) hour prior to your dental appointment. 4 capsule 3 10/06/2024 01/07/2025 Discontinued (Discontinued by Patient) Comment on above: Please take 4 capsul es by mouth 1 (one) hour prior to your dental appointment. amoxicillin 875 mg / clavulanate 125 mg oral tablet (12 sources) Penicillin-class Antibacterial Start: 01-09-20 End: 12-10-19 take 1 tablet by mouth every twelve hours Amoxicillin-Pot Clavulanate 875 MG tablet Discontinued 875 mg PO Q12H 14 0 January 09, 2020 12:00am December 10, 2024 8:57am On Hold: Ordered ascorbic acid 500 mg oral tablet (20 sources) Vitamin C Start: 06-26-20 End: 06-07-20 take 1 tablet by mouth twice daily at mealtime ascorbic acid, vitamin C, (VITAMIN C) 500 mg tablet Take 1 tablet by mouth twice daily with meals for 28 doses. 28 tablet 06/26/2023 04/21/2024 Discontinued End: 06-26-2023 take 1 tablet by mouth once daily ascorbic acid (VITAMIN C ORAL) Take 1 tablet by mouth once daily. 0 06/26/2023 Discontinued take 1 tablet by berkley th once daily ascorbic acid (VITAMIN C ORAL) Take 1 tablet by mouth once daily. 0 Active Comment on above: Take 1 tablet by berkley th once daily. Take 1 tablet by berkley th twice daily with meals for 28 doses. aspirin 81 mg delayed release oral tablet (18 sources) Platelet Aggregation Inhibitor, Nonsteroidal Anti-inflammatory Drug Start: 04-25-2024 End: 06-07-2024 take 1 tablet by mouth twice daily aspirin, enteric coated (ASPIRIN, ENTERIC COATED) 81 mg EC tablet Take 1 tablet by mouth two times a day for 25 days. 50 tablet 04/25/2024 06/07/2024 Discontinued Start: 06-26-2023 End: 11-06-2023 take 1 tablet by mouth twice daily aspirin, enteric coated (ASPIRIN, ENTERIC COATED) 81 mg EC tablet Take 1 tablet by mouth twice daily for 28 days. 56 tablet 06/26/2023 11/06/2023 Discontinued Comment on above: Take 1 tablet by berkley th twice daily for 28 days. carbamide peroxide 65 mg/ml otic solution (18 sources) Start: 08-11-20 End: 01-08-20 carbamide peroxide (DEBROX) 6.5 % otic solution Use 5 Drops in both ears two times a day. 15 mL 1 08/11/2024 01/07/2025 Discontinued (Discontinued by Patient) cephalexin 500 mg oral capsule (20 sources) Cephalosporin Antibacterial Start: 02-13-20 End: 01-08-20 25 take 1 capsule by mouth every six hours Cephalexin 500 MG capsule Discontinued 500 mg PO EVERY 6 HOURS 40 0 February 12, 2021 12:00am December 10, 2024 8:57am On Hold: Ordered cholecalciferol 0.05 mg oral capsule (20 sources) Vitamin D End: 01-08-20 25 take 1 capsule by mouth once daily Cholecalciferol, Vitamin D3, (VITAMIN D-3) 50 mcg (2,000 unit) cap Indications: vitamin D deficiency Take 1 capsule by mouth once daily. 01/07/2025 Discontinued (Discontinued by Patient) cholecalciferol, vitamin D3, (VITAMIN D3 ORAL) (20 sources) End: 06-07-20 24 take 1 tablet by mouth once daily cholecalciferol, vitamin D3, (VITAMIN D3 ORAL) Take 1 tablet by mouth once daily. 06/07/2024 Discontinued End: 06-07-2024 take 1 tablet by mouth once daily cholecalciferol, vitamin D3, (VITAMIN D3 ORAL) Take 1 tablet by mouth once daily. 0 06/07/2024 Discontinued take 1 tablet by berkley th once daily cholecalciferol, vitamin D3, (VITAMIN D3 ORAL) Take 1 tablet by mouth once daily. 0 Suspended take 1 tablet by berkley [facility] once daily cholecalciferol, vitamin D3, (VITAMIN D3 ORAL) Take 1 tablet by mouth once daily. 0 Active Comment on above: Take 1 tablet by berkley th once daily. ciprofloxacin 500 mg oral tablet (11 sources) Quinolone Antimicrobial Start: 04-25-20 End: 04-30-20 25 take 1 tablet by mouth twice daily Ciprofloxacin Hcl 500 mg tablet Discontinued 500 mg PO TWICE A DAY 10 5 0 April 25, 2025 12:00am April 29, 2025 12:00am April 30, 2025 12:08am Start: 04-12-2024 take 1 tablet by berkley th twice daily ciprofloxacin HCl (CIPRO) 250 mg tablet Indications: Pre-operative examination Take 1 tablet by mouth two times a day. 10 tablet 0 04/12/2024 Active Collagen (20 sources) End: 04-25-2024 COLLAGEN MISC 1 tablet once daily. Collagen blend + #2 04/25/2024 Discontinued COLLAGEN MISC 1 tablet once daily. Collagen blend + #2 0 Suspended COLLAGEN MISC 1 tablet once daily. Collagen blend + #2 0 Active Comment on above: 1 tablet once daily. Collagen blend + #2 docusate sodium 100 mg oral capsule (10 sources) Start: 04-25-2024 End: 06-08-2024 take 1 capsule by mouth twice daily docusate sodium (COLACE) 100 mg capsule Take 1 capsule by mouth two times a day. 04/25/2024 06/08/2024 Discontinued (Course of therapy completed) Start: 06-26-2023 End: 07-26-2023 take 1 capsule by mouth every twelve hours as needed docusate sodium (COLACE) 100 mg capsule Take 1 capsule by mouth twice daily as needed for constipation. 60 capsule 06/26/2023 07/26/2023 Comment on above: Take 1 capsule by mo [facility] twice daily as needed for constipation. doxycycline hyclate 100 mg oral tablet (20 sources) Tetracycline-class Drug Start: 12-10-19 End: 12-31-19 take 1 capsule by mouth once daily Doxycycline Hyclate 100 mg capsule Discontinued 100 mg PO daily December 10, 2024 1:00am December 30, 2024 3:57pm Start: 12-03-2024 End: 04-25-2025 take 1 tablet by mouth twice daily Doxycycline Hyclate 100 mg tablet Discontinued 100 mg PO TWICE A DAY January 04, 2025 12:00am April 25, 2025 10:45am Start: 04-25-2024 End: 05-06-2024 take 1 capsule by mouth every twelve hours in the morning, then take 6 capsules by mouth in the evening doxycycline hyclate (VIBRAMYCIN) 100 mg capsule Take 1 capsule (100 mg) by mouth every 12 hours at 6 am and 6 pm for 22 doses. 22 capsule 04/25/2024 05/06/2024 hydroCHLOROthiazide 25 mg oral tablet (20 sources) Thiazide Diuretic Start: 01-06-2020 End: 12-10-2024 take 1 tablet by mouth once daily Hydrochlorothiazide 25 MG tablet Discontinued 25 mg PO DAILY January 06, 2020 12:00am December 10, 2024 10:42am blood pressure On Hold: Ordered Comment on above: [facility] Lactobac no.41/Bifidobact no.7 (PROBIOTIC-10 ORAL) (20 sources) End: 04-25-2024 take 1-2 tablets by mouth once daily Lactobac no.41/Bifidobact no.7 (PROBIOTIC-10 ORAL) Take 1-2 tablets by mouth once daily. 04/25/2024 Discontinued take 1-2 tablets by mouth once d aily Lactobac no.41/Bifidobact no.7 (PROBIOTIC- 10 ORAL) Take 1-2 tablets by mouth once daily. 0 Suspended take 1-2 tablets by mouth once d aily Lactobac no.41/Bifidobact no.7 (PROBIOTIC- 10 ORAL) Take 1-2 tablets by mouth once daily. 0 Active Comment on above: Take 1-2 tablets by mouth once daily. meloxicam 15 mg oral tablet (5 sources) Nonsteroidal Anti-inflammatory Drug Start: 06-26-20 End: 07-10-20 take 1 tablet by mouth once daily meloxicam (MOBIC) 15 mg tablet Take 1 tablet by mouth once daily for 14 days. 14 tablet 06/26/2023 07/10/2023 Comment on above: Take 1 tablet by [facility] once daily for 14 days. mometasone furoate 1 mg/ml topical cream (20 sources) Corticosteroid Start: 01-10-20 End: 01-09-20 mometasone (ELOCON) 0.1 % cream Apply to areas twice a day. On for 4 days and off for 3 days. Repeat as needed. 15 g 1 01/09/2023 01/09/2024 Comment on above: Apply to areas twice a day. On for 4 days and off for 3 days. Repeat as needed. multivitamins w-minerals(DAILY MULTIVITAMIN-MINERALS TAB) (20 sources) Start: 12-28-19 End: 06-07-20 24 multivitamins w-minerals(DAILY MULTIVITAMIN-MINERAL S TAB) Take one(1) tablet daily. 0 12/27/2009 06/07/2024 Discontinued Start: 12-27-2009 multivitamins w-minerals(DAILY MULTIVITAMIN-MINERALS TAB) Take one(1) tablet daily. 0 12/27/2009 Suspended Start: 12-27-2009 multivitamins w-minerals(DAILY MULTIVITAMIN-MINERALS TAB) Take one(1) tablet daily. 0 12/27/2009 Active Comment on above: Take one(1) tablet d aily. naproxen sodium 220 mg oral capsule (20 sources) Nonsteroidal Anti-inflammatory Drug End: 04-21-2024 naproxen sodium (ALEVE) 220 mg cap Take by mouth as needed. 04/21/2024 Discontinued Comment on above: Take by mouth as dir ected. Take by mouth as nee ded. nystatin 100 unt/mg topical powder (20 sources) Polyene Antifungal Start: 12-03-2024 End: 12-30-2024 Nystatin 100,000 unit/gram powder Discontinued 1 NMA TOPICAL TWICE A DAY 30 0 December 03, 2024 1:00am December 30, 2024 3:57pm apply to skin folds of lower abdomen Start: 06-10-2024 End: 06-24-2024 nystatin (MYCOSTATIN) cream Apply to affected area two times a day for 14 days. 30 g 1 06/10/2024 06/24/2024 Active Start: 04-05-2024 End: 06-08-2024 nystatin (MYCOSTATIN) cream Apply to affected area two times a day. 30 g 5 04/05/2024 06/08/2024 Discontinued (Course of therapy completed) omega-3 fatty acids 1,000 mg cap (20 sources) Start: 07-27-2013 End: 04-25-2024 take 1 capsule by mouth three times daily omega-3 fatty acids 1,000 mg cap Take 1 capsule by mouth three times daily. 07/27/2013 04/25/2024 Discontinued Start: 07-27-2013 take 1 capsule by mo ut[facility] three times daily omega-3 fatty acids 1,000 mg cap Take 1 capsule by mouth three times daily. 0 07/27/2013 Suspended Start: 07-27-2013 take 1 capsule by mo [facility] three times daily omega-3 fatty acids 1,000 mg cap Take 1 capsule by mouth three times daily. 0 07/27/2013 Active Comment on above: Take 1 capsule by mo [facility] three times daily. OTC PRODUCT (20 sources) End: 04-21-2024 OTC PRODUCT Takes beet powder daily 04/21/2024 Discontinued OTC PRODUCT Take s beet powder daily 0 Suspended OTC PRODUCT Take s beet powder daily 0 Active Comment on above: Takes beet powder da jose juan oxyCODONE hydrochloride 5 mg oral tablet (14 sources) Opioid Agonist Start: End: take 1 tablet by mouth every six hours as needed oxyCODONE IR (ROXICODONE) 5 mg immediate release tablet Indications: S/P total right hip arthroplasty Take 1-2 tablets by mouth every 6 hours as needed for pain. 30 tablet 06/26/2023 11/06/2023 Discontinued Comment on above: Take 1-2 tablets by mouth every 6 hours as needed for pain. pantoprazole 20 mg delayed release oral tablet (14 sources) Proton Pump Inhibitor Start: End: take 1 tablet by mouth once daily in the morning pantoprazole DR (PROTONIX) 20 mg tablet Take 1 tablet by mouth every morning for 14 days. 14 tablet 06/26/2023 11/06/2023 Discontinued Comment on above: Take 1 tablet by berkley th every morning for 14 days. polyethylene glycol 3350 656251 mg / potassium chloride 2970 mg / sodium bicarbonate 6740 mg / sodium chloride 5860 mg / sodium sulfate 56946 mg powder for oral solution (20 sources) Osmotic Laxative Start: End: peg 3350-Electrolytes (GOLYTELY) 236-22.74-6.74 -5.86 gram suspension Indications: Screening for colon cancer , Chronic constipation Refer to printed prep instructions from your provider. 4000 mL 05/07/2022 11/06/2023 Discontinued Comment on above: Refer to printed pre p instructions from your provider. Polyethylene Glycols (12 sources) Start: End: Polyethylene Glycol powder Discontinued 1 NMA MC DAILY August 06, 2024 12:00am December 10, 2024 10:42am risperiDONE 0.5 mg oral tablet (10 sources) Atypical Antipsychotic End: take 1 tablet by mouth once daily at bedtime risperiDONE (RISPERDAL) 0.5 mg tablet Take 0.5 mg by mouth daily at bedtime. 07/23/2024 Discontinued sulfamethoxazole 800 mg / trimethoprim 160 mg oral tablet (20 sources) Dihydrofolate Reductase Inhibitor Antibacterial, Sulfonamide Antimicrobial Start: End: Sulfamethoxazole-Tr imethoprim 800-160 mg tablet Discontinued 1 {tbl} PO TWICE A DAY 20 10 0 April 21, 2025 12:00am April 30, 2025 12:00am April 25, 2025 10:45am Start: 02-12-2021 End: 12-10-2024 Sulfamethoxazole-Trimethopri m 800-160 mg tablet Discontinued 1 {tbl} PO TWICE A DAY 20 0 December 10, 2024 1:00am December 10, 2024 10:43am ubidecarenone 60 mg oral capsule (20 sources) Start: 12-27-2009 End: 04-25-2024 COENZYME Q10 60 MG CAP Take one(1) tablet daily. 0 12/27/2009 04/25/2024 Discontinued Comment on above: Take one(1) tablet d aily. Vibegron (12 sources) Start: 12-10-2024 End: 12-30-2024 take 1 tablet by mouth once daily Vibegron (Gemtesa) 75 mg tablet Discontinued 75 mg PO daily December 10, 2024 1:00am December 30, 2024 3:56pm Problems Active Problems Problem Classification Problem Date Documented Da te Episodic/Chronic Acquired foot deformities (20 sources) Hammer toe; Translations: [Other hammer toe(s) (acquired), right foot] Onset: 01-24-2021 06-20-2021 Chronic Anxiety disorders (2 sources) Anxiety; Translations: [Anxiety disorder, unspecified] 11-10-2024 Chronic Cataract (3 sources) Bilateral senile combined form cataracts of eyes; Translations: [Combined forms of age-related cataract, bilateral] Chronic Chronic ulcer of skin (20 sources) Ulcer of skin of lower extremity; Translations: [Non-pressure chronic ulcer of skin of other sites with fat layer exposed] Onset: 07-27-2025 08-06-2024 Chronic Complications of surgical procedures or medical care (20 sources) Postoperative hypothyroidism; Translations: [Postprocedural hypothyroidism] Onset: 09-04-2005 Chronic Congestive heart failure; nonhypertensive (1 source) Congestive heart failure; Translations: [Heart failure, unspecified] 08-12-2023 Chronic Deficiency and other anemia (1 source) Anemia; Translations: [Anemia, unspecified] 04-06-2025 Episodic Delirium, dementia, and amnestic and other cognitive disorders (1 source) Alzheimer's disease; Translations: [Alzheimer's disease, unspecified] 04-06-2025 Chronic Diseases of white blood cells (1 source) Elevated white blood cell count, unspecified; Translations: [Leukocytosis, unspecified type] Onset: 08-02-2025 Chronic Disorders of lipid metabolism (20 sources) Mixed hyperlipidemia; Translations: [Mixed hyperlipidemia] Onset: 02-05-2018 Chronic Essential hypertension (20 sources) Benign essential hypertension; Translations: [Essential (primary) hypertension] Onset: 07-08-2005 Chronic Fluid and electrolyte disorders (6 sources) Hyponatremia; Translations: [Hypo-osmolality and hyponatremia] Onset: 02-17-2025 Episodic Genitourinary symptoms and ill-defined conditions (20 sources) Urinary incontinence; Translations: [Unspecified urinary incontinence] Onset: 07-28-2024 Chronic Gout and other crystal arthropathies (20 sources) Gouty arthritis of right foot; Translations: [Idiopathic gout, right ankle and foot] Onset: 01-24-2021 06-20-2021 Chronic Menopausal disorders (20 sources) Postmenopausal bleeding; Translations: [Postmenopausal bleeding] Onset: 01-27-2025 12-10-2024 Chronic Mood disorders (1 source) Reactive depression (situational); Translations: [Major depressive disorder, single episode, unspecified] Chronic Nutritional deficiencies (2 sources) Vitamin D deficiency; Translations: [Vitamin D deficiency, unspecified] Onset: 01-07-2025 01-07-2025 Chronic Open wounds of extremities (12 sources) Cat bite - wound; Translations: [Open bite of unspecified hand, initial encounter] 02-12-2021 Episodic Open wounds of head; neck; and trunk (12 sources) Open wound of inguinal region; Translations: [Unspecified open wound of abdominal wall, right lower quadrant without penetration into peritoneal cavity, initial encounter] 12-11-2024 Episodic Open wounds of head; neck; and trunk (12 sources) Open wound of inguinal region; Translations: [Unspecified open wound of abdominal wall, left lower quadrant without penetration into peritoneal cavity, initial encounter] 12-11-2024 Episodic Osteoarthritis (20 sources) Primary coxarthrosis, bilateral; Translations: [Bilateral primary osteoarthritis of hip] Onset: 06-20-2015 Chronic Other aftercare (1 source) Long-term current use of diuretic; Translations: [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 therapy] 09-17-2023 Episodic Other congenital anomalies (3 sources) Congenital malformation of retina; Translations: [Other retinal changes, congenital] Chronic Other connective tissue disease (4 sources) Hip joint prosthesis present; Translations: [Presence of right artificial hip joint] Chronic Other connective tissue disease (20 sources) History of total hip arthroplasty; Translations: [Presence of right artificial hip joint] Onset: 06-26-2023 06-26-2023 Chronic Other connective tissue disease (6 sources) History of repair of hip joint; Translations: [Presence of right artificial hip joint] 07-10-2023 Chronic Other connective tissue disease (1 source) Presence of left artificial hip joint; Translations: [Presence of left artificial hip joint] Onset: 03-30-2024 Chronic Other connective tissue disease (2 sources) Presence of right artificial hip joint; Translations: [S/P total right hip arthroplasty] Onset: 06-02-2023 Chronic Other connective tissue disease (6 sources) Pain of toe of left foot; Translations: [Pain in left toe(s)] 10-30-2023 Episodic Other connective tissue disease (6 sources) Pain of toe of right foot; Translations: [Pain in right toe(s)] 10-30-2023 Episodic Other connective tissue disease (1 source) Spasm; Translations: [Other muscle spasm] 02-01-2025 Episodic Other connective tissue disease (1 source) Pain in right toe(s); Translations: [Pain in toe of right foot] Onset: 07-07-2025 Episodic Other diseases of bladder and urethra (20 sources) Overactive bladder; Translations: [Overactive bladder] Onset: 12-19-2020 Chronic Other diseases of kidney and ureters (2 sources) Disorder of kidney and ureter, unspecified; Translations: [Renal insufficiency] Onset: 08-02-2025 Episodic Other ear and sense organ disorders (1 source) Bilateral hearing loss; Translations: [Unspecified hearing loss, bilateral] 08-11-2024 Chronic Other ear and sense organ disorders (1 source) Unspecified hearing loss, bilateral; Translations: [Bilateral hearing loss, unspecified hearing loss type] Onset: 08-11-2024 Chronic Other ear and sense organ disorders (1 source) Impacted cerumen of bilateral ears; Translations: [Impacted cerumen, bilateral] Episodic Other ear and sense organ disorders (1 source) Bilateral tinnitus; Translations: [Tinnitus, bilateral] 07-13-2025 Episodic Other ear and sense organ disorders (1 source) Impacted cerumen, bilateral; Translations: [Bilateral impacted cerumen] Onset: 07-22-2025 Episodic Other eye disorders (3 sources) Bilateral posterior vitreous detachment; Translations: [Vitreous degeneration, bilateral] Chronic Other eye disorders (2 sources) Disorder of lacrimal gland; Translations: [Dry eye syndrome of bilateral lacrimal glands] Episodic Other female genital disorders (1 source) Abnormal uterine and vaginal bleeding, unspecified; Translations: [Abnormal uterine and vaginal bleeding, unspecified] Onset: 11-06-2024 Chronic Other gastrointestinal disorders (2 sources) Chronic constipation; Translations: [Other constipation] Episodic Other hematologic conditions (1 source) Hemoglobin finding; Translations: [Precipitous drop in hematocrit] 08-11-2023 Episodic Other hereditary and degenerative nervous system conditions (4 sources) Impaired cognition; Translations: [Mild cognitive impairment, so stated] 08-11-2024 Chronic Other hereditary and degenerative nervous system conditions (3 sources) Mild cognitive impairment, so stated; Translations: [Cognitive impairment, mild, so stated] Onset: 08-11-2024 Chronic Other inflammatory condition of skin (1 source) Intertrigo; Translations: [Erythema intertrigo] Episodic Other injuries and conditions due to external causes (1 source) Open wound; Translations: [Other injury of unspecified body region, initial encounter] 04-05-2024 Episodic Other injuries and conditions due to external causes (1 source) Wound of skin; Translations: [Other injury of unspecified body region, initial encounter] 07-23-2024 Episodic Other lower respiratory disease (1 source) Dyspnea; Translations: [Shortness of breath] 08-11-2023 Episodic Other lower respiratory disease (2 sources) Cough; Translations: [Subacute cough] 01-07-2025 Episodic Other nervous system disorders (20 sources) Walking disability; Translations: [Difficulty in walking, not elsewhere classified] Onset: 08-31-2024 08-11-2024 Chronic Other nervous system disorders (1 source) Difficulty in walking, not elsewhere classified; Translations: [Ambulatory dysfunction] Onset: 08-11-2024 Chronic Other nervous system disorders (2 sources) Impaired cognition 12-24-2024 Episodic Other nervous system disorders (12 sources) H/O: respiratory disease; Translations: [Personal history of other diseases of the nervous system and sense organs] 01-06-2020 Episodic Other non-traumatic joint disorders (7 sources) Pain in right hip joint; Translations: [Pain in right hip] Episodic Other non-traumatic joint disorders (1 source) Pain in left hip; Translations: [Pain in left hip] Onset: 05-06-2024 Episodic Other non-traumatic joint disorders (1 source) Pain in right hip; Translations: [Pain in right hip] Onset: 02-17-2024 Episodic Other nutritional; endocrine; and metabolic disorders (20 sources) Obese class II; Translations: [Obesity, unspecified] Onset: 02-19-2021 Chronic Other nutritional; endocrine; and metabolic disorders (1 source) Body mass index 30+ - obesity; Translations: [Body mass index (BMI) 38.0-38.9, adult] Chronic Other nutritional; endocrine; and metabolic disorders (12 sources) Morbid obesity; Translations: [Morbid (severe) obesity due to excess calories] 01-06-2020 Chronic Other nutritional; endocrine; and metabolic disorders (18 sources) Obesity; Translations: [Obesity, unspecified] 08-06-2024 Chronic Other nutritional; endocrine; and metabolic disorders (1 source) Hypomagnesemia; Translations: [Hypomagnesemia] 02-02-2025 Chronic Other nutritional; endocrine; and metabolic disorders (1 source) Hypermagnesemia; Translations: [Hypermagnesemia] 04-06-2025 Chronic Other nutritional; endocrine; and metabolic disorders (2 sources) Other obesity due to excess calories; Translations: [Other obesity due to excess calories] Onset: 07-27-2025 Chronic Other nutritional; endocrine; and metabolic disorders (2 sources) Body mass index (BMI) 35.0-35.9, adult; Translations: [Body mass index [BMI] 35.0-35.9, adult] Onset: 07-27-2025 Chronic Other nutritional; endocrine; and metabolic disorders (1 source) Hypomagnesemia; Translations: [Hypomagnesemia] Onset: 02-07-2025 Chronic Other nutritional; endocrine; and metabolic disorders (1 source) Unintentional weight loss; Translations: [Abnormal weight loss] Episodic Other screening for suspected conditions (not mental disorders or infectious disease) (20 sources) Endometrium thickened; Translations: [Abnormal findings on diagnostic imaging of other specified body structures] 12-10-2024 Chronic Other skin disorders (4 sources) Ingrowing toenail; Translations: [Ingrowing nail] 09-17-2023 Episodic Other skin disorders (20 sources) Hidradenitis suppurativa; Translations: [Hidradenitis suppurativa] Onset: 07-11-2025 08-06-2024 Episodic Other skin disorders (3 sources) Hidradenitis suppurativa; Translations: [Hidradenitis suppurativa] Onset: 07-22-2025 Episodic Other skin disorders (1 source) Ingrowing nail; Translations: [Ingrown toenail] Onset: 07-07-2025 Episodic Other upper respiratory disease (20 sources) Allergic rhinitis; Translations: [Allergic rhinitis, unspecified] Onset: 07-08-2005 08-27-2019 Chronic Residual codes; unclassified (20 sources) Obstructive sleep apnea syndrome; Translations: [Obstructive sleep apnea (adult) (pediatric)] Onset: 07-08-2005 Chronic Residual codes; unclassified (18 sources) Bilateral lower limb edema; Translations: [Localized edema] 08-11-2023 Episodic Residual codes; unclassified (1 source) Edema, generalized; Translations: [Generalized edema] 08-12-2023 Episodic Residual codes; unclassified (2 sources) Memory impairment; Translations: [Other amnesia] 07-23-2024 Episodic Screening and history of mental health and substance abuse codes (2 sources) Encounter for screening examination for other mental health and behavioral disorders; Translations: [Encounter for screening for depression] Onset: 07-22-2025 Episodic Septicemia (except in labor) (12 sources) Sepsis; Translations: [Sepsis, unspecified organism] 02-12-2021 Episodic Skin and subcutaneous tissue infections (14 sources) Cellulitis of skin; Translations: [Cellulitis, unspecified] 07-23-2024 Episodic Thyroid disorders (20 sources) Non-toxic nodular goiter; Translations: [Nontoxic goiter, unspecified] Onset: 07-08-2005 Resolved: 09-04-2005 09-04-2005 Chronic Unclassified (2 sources) for wound care Unclassified (1 source) OPENED IN ERROR 05-08-2025 Unclassified (2 sources) Obesity, class 2; Translations: [Obesity, class 2] Onset: 07-27-2025 Unclassified (1 source) Obesity, Class II, BMI 35-39.9; Translations: [Obesity, Class II, BMI 35-39.9] Onset: 06-20-2021 Unclassified (1 source) Subacute cough; Translations: [Subacute cough] Onset: 01-07-2025 Past or Other Problems Problem Classification Problem Date Documented Date Episodic/Chronic Administrative/social admission (20 sources) Advance directive discussed with patient; Translations: [Other specified counseling] Onset: 02-14-2022 Episodic Allergic reactions (20 sources) Inflammatory dermatosis; Translations: [Dermatitis, unspecified] Onset: 01-09-2023 01-09-2023 Episodic Blindness and vision defects (6 sources) Blurring of visual image; Translations: [Other visual disturbances] Onset: 08-16-2024 Episodic Diabetes mellitus without complication (20 sources) High hemoglobin A1c level; Translations: [Other abnormal glucose] Onset: 08-27-2018 Episodic Genitourinary symptoms and ill-defined conditions (2 sources) Abnormal urine; Translations: [Other abnormal findings in urine] 06-13-2023 Episodic Inflammatory diseases of female pelvic organs (20 sources) Abscess of vulva; Translations: [Abscess of vulva] Onset: 04-26-2025 04-21-2025 Episodic Mycoses (8 sources) Onychomycosis; Translations: [Tinea unguium] Onset: 05-06-2025 10-30-2023 Episodic Other aftercare (3 sources) Other residential (current) drug therapy; Translations: [Encounter for long-term (current) drug use] Onset: 07-23-2024 Episodic Other and unspecified benign neoplasm (20 sources) History of polyp of colon; Translations: [Personal history of colonic polyps] Onset: 03-14-2016 08-27-2018 Episodic Other connective tissue disease (1 source) Pain in left toe(s); Translations: [Pain in toe of left foot] Onset: 05-06-2025 Episodic Other connective tissue disease (1 source) Other muscle spasm; Translations: [Muscle spasms of both lower extremities] Onset: 02-01-2025 Episodic Other lower respiratory disease (20 sources) Dyspnea on exertion; Translations: [Other forms of dyspnea] Onset: 06-13-2023 06-13-2023 Episodic Other non-traumatic joint disorders (20 sources) Hip pain; Translations: [Pain in right hip] Onset: 06-05-2023 06-05-2023 Episodic Other screening for suspected conditions (not mental disorders or infectious disease) (20 sources) Patient encounter status; Translations: [Encounter for screening for malignant neoplasm of colon] Onset: 08-27-2018 Episodic Other skin disorders (20 sources) Foot callus; Translations: [Corns and callosities] Onset: 01-24-2021 06-20-2021 Episodic Other skin disorders (20 sources) Dystrophia unguium; Translations: [Nail dystrophy] Onset: 01-24-2021 06-20-2021 Episodic Residual codes; unclassified (13 sources) Postoperative state; Translations: [Other specified postprocedural states] Onset: 04-22-2024 04-22-2024 Episodic Residual codes; unclassified (1 source) Other amnesia; Translations: [Memory difficulties] Onset: 08-11-2024 Episodic Unclassified (1 source) Patient encounter status 12-29-2024 Results Test Name Value Interpretation Reference Range Facility Basic metabolic 2000 panelon 08-05-2025 Anion gap [Moles/Vol] 14 mmol/L Normal 8-15 [facility] Comment on above: Order Comment: Speci men Type: BLOOD SPECIMENOrdering Facility: [facility] Address: [address] [place] [address] Performed By: #### 2 4321-2 ####[facility] LABCLIA [id number] [address] [address] [place] Calcium [Mass/Vol] 9.8 mg/dL Normal 8.5-10.2 [facility] Comment on above: Order Comment: Speci men Type: BLOOD SPECIMENOrdering Facility: [facility] Address: [address] [place] [address] Performed By: #### 2 4321-2 ####[facility] LABCLIA [id number] [place] [id number] [place] Chloride [Moles/Vol] 100 mmol/L Normal 98-107 [facility] Comment on above: Order Comment: Speci men Type: BLOOD SPECIMENOrdering Facility: [facility] Address: [address] [place] [address] Performed By: #### 2 4321-2 ####[facility] LABCLIA [id number] [place] [address] [place] CO2 [Moles/Vol] 15 mmol/L Low 22-[address] [facility] Comment on above: Order Comment: Speci men Type: BLOOD SPECIMENOrdering Facility: [facility] Address: [address] [place] [address] Performed By: #### 2 4321-2 ####[facility] LABCLIA [id number] [place] [address] [place] Creatinine [Mass/Vol] 1.32 mg/dL High 0.58-0.96 [facility] Comment on above: Order Comment: Speci men Type: BLOOD SPECIMENOrdering Facility: [facility] Address: [address] [place] [address] Performed By: #### 2 4321-2 ####[facility] LABCLIA [id number] [place] [address] [place] eGFRcr SerPlBld CKD-EPI 2020 42 mL/min/1.73m??? Low >=[address] [facility] Comment on above: Order Comment: Speci men Type: BLOOD SPECIMENOrdering Facility: [facility] Address: [address] [place] [address] Result Comment: Ashley mated Glomerular Filtration Rate (eGFR) is calculated using the 2020 CKD-EPI creatinine equation. This equation utilizes serum creatinine, sex, and age as parameters. The creatinine assay has traceable calibration to isotope dilution-mass spectrometry. Refer to KDIGO guidelines for clinical interpretation. In patients with unstable renal function, e.g. those with acute kidney injury, the eGFR may not accurately reflect actual GFR. Performed By: #### 2 4321-2 ####[facility] LABCLIA [id number] [place] [address] [place] Glucose [Mass/Vol] 96 mg/dL Normal 74-99 [facility] Comment on above: Order Comment: Speci men Type: BLOOD SPECIMENOrdering Facility: [facility] Address: [address] [place] [address] Result Comment: The [place] [employer] (ADA) provides guidance for cutoff values for fasting glucose and random glucose. The ADA defines fasting as no caloric intake for at least 8 hours. Fasting plasma glucose results between 100 to 125 mg/dL indicate increased risk for diabetes (prediabetes). Fasting plasma glucose results greater than or equal to 126 mg/dL meet the criteria for diagnosis of diabetes. In the absence of unequivocal hyperglycemia, results should be confirmed by repeat testing. In a patient with classic symptoms of hyperglycemia or hyperglycemic crisis, random plasma glucose results greater than or equal to 200 mg/dL meet the criteria for diagnosis of diabetes. Reference: Standards of Medical Care in Diabetes 2016, [place] [employer]. Diabetes Care. 2016.39(Suppl 1). Performed By: #### 2 4321-2 ####[facility] LABIA [id number] [place] [address] [place] Potassium [Moles/Vol] 5.3 mmol/L High 3.7-5.1 [facility] Comment on above: Order Comment: Speci men Type: BLOOD SPECIMENOrdering Facility: [facility] Address: [address] [place] [address] Performed By: #### 2 4321-2 ####[facility] LABIA [id number] [place] [address] [place] Sodium [Moles/Vol] 129 mmol/L Low 136-144 [facility] Comment on above: Order Comment: Speci men Type: BLOOD SPECIMENOrdering Facility: [facility] Address: [address] [place] [address] Performed By: #### 2 4321-2 ####[facility] LABCLIA [id number] [address] [place] [address] [place] Urea nitrogen [Mass/Vol] 38 mg/dL High 7-[address] [facility] Comment on above: Order Comment: Speci men Type: BLOOD SPECIMENOrdering Facility: [facility] Address: [address] [place], [place] [address] Performed By: #### 2 4321-2 ####[facility] LABCLIA [id number] [address] [place] [address] [place] Basic metabolic 2000 panelon 08-02-2025 Anion gap [Moles/Vol] 16 mmol/L High 8-15 [facility] Comment on above: Order Comment: Speci men Type: BLOOD SPECIMENOrdering Facility: [facility] Address: [address] [place], [place] [address] Performed By: #### 2 4321-2 ####[facility] LABCLIA [id number] [address] [address] [place] Calcium [Mass/Vol] 10.1 mg/dL Normal 8.5-10.2 [facility] Comment on above: Order Comment: Speci men Type: BLOOD SPECIMENOrdering Facility: [facility] Address: [address] [place], [place] [address] Performed By: #### 2 4321-2 ####[facility] LABCLIA [id number] [address] [address] [place] Chloride [Moles/Vol] 101 mmol/L Normal 98-107 [facility] Comment on above: Order Comment: Speci men Type: BLOOD SPECIMENOrdering Facility: [facility] Address: [address] [place] [address] Performed By: #### 2 4321-2 ####[facility] LABCLIA [id number] [address] [place] [address] [place] CO2 [Moles/Vol] 16 mmol/L Low 22-[address] [facility] Comment on above: Order Comment: Speci men Type: BLOOD SPECIMENOrdering Facility: [facility] Address: [address] [place] [address] Performed By: #### 2 4321-2 ####[facility] LABIA [id number] [address] [address] [place] Creatinine [Mass/Vol] 1.40 mg/dL High 0.58-0.96 [facility] Comment on above: Order Comment: Speci men Type: BLOOD SPECIMENOrdering Facility: [facility] Address: [address] [place] [address] Performed By: #### 2 4321-2 ####[facility] LABIA [id number] [address] [address] [place] eGFRcr SerPlBld CKD-EPI 2020 39 mL/min/1.73m??? Low >=[address] [facility] Comment on above: Order Comment: Speci men Type: BLOOD SPECIMENOrdering Facility: [facility] Address: [address] [place] [address] Result Comment: Ashley mated Glomerular Filtration Rate (eGFR) is calculated using the 2020 CKD-EPI creatinine equation. This equation utilizes serum creatinine, sex, and age as parameters. The creatinine assay has traceable calibration to isotope dilution-mass spectrometry. Refer to KDIGO guidelines for clinical interpretation. In patients with unstable renal function, e.g. those with acute kidney injury, the eGFR may not accurately reflect actual GFR. Performed By: #### 2 4321-2 ####[facility] LABIA [id number] [address] [address] [place] Glucose [Mass/Vol] 86 mg/dL Normal 74-99 [facility] Comment on above: Order Comment: Speci men Type: BLOOD SPECIMENOrdering Facility: [facility] Address: [address] [place] [address] Result Comment: The [place] Diabetes Association (ADA) provides guidance for cutoff values for fasting glucose and random glucose. The ADA defines fasting as no caloric intake for at least 8 hours. Fasting plasma glucose results between 100 to 125 mg/dL indicate increased risk for diabetes (prediabetes). Fasting plasma glucose results greater than or equal to 126 mg/dL meet the criteria for diagnosis of diabetes. In the absence of unequivocal hyperglycemia, results should be confirmed by repeat testing. In a patient with classic symptoms of hyperglycemia or hyperglycemic crisis, random plasma glucose results greater than or equal to 200 mg/dL meet the criteria for diagnosis of diabetes. Reference: Standards of Medical Care in Diabetes 2016, [place] [employer]. Diabetes Care. 2016.39(Suppl 1). Performed By: #### 2 4321-2 ####[facility] LABIA [id number] [place] [address] [place] Potassium [Moles/Vol] 5.4 mmol/L High 3.7-5.1 [facility] Comment on above: Order Comment: Speci men Type: BLOOD SPECIMENOrdering Facility: [facility] Address: [address] [place] [address] Performed By: #### 2 1-2 ####[facility] [id number] [place] [address] [place] Sodium [Moles/Vol] 133 mmol/L Low 136-144 [facility] Comment on above: Order Comment: Valei isidro Type: BLOOD SPECIMENOrdering Facility: [facility] Address: [address] [place] [address] Performed By: #### 2 1-2 ####[facility] LABIA [id number] [place] [address] [place] Urea nitrogen [Mass/Vol] 38 mg/dL High 7-[address] [facility] Comment on above: Order Comment: Valei men Type: BLOOD SPECIMENOrdering Facility: [facility] Address: [address] [place] [address] Performed By: #### 2 4321-2 ####[facility] LABIA [id number] [place] [address] [place] CBC W Auto Differential pane l (Bld)on 08-02-2025 Basophils (Bld) [#/Vol] 0.07 10*3/uL Normal <0.[address] [facility] Comment on above: Order Comment: Speci men Type: BLOOD SPECIMENOrdering Facility: [facility] Address: [address] [place] [address] Performed By: #### 5 7021-8 ####[facility] LABCLIA [id number] [place] [address] [place] Basophils/100 WBC (Bld) 0.9 % Normal [facility] Comment on above: Order Comment: Speci men Type: BLOOD SPECIMENOrdering Facility: [facility] Address: [address] [place] [address] Performed By: #### 5 7021-8 ####[facility] LABCLIA [id number] [place] [address] [place] Differential cell count method Nom (Bld) Auto Normal [facility] Comment on above: Order Comment: Speci men Type: BLOOD SPECIMENOrdering Facility: [facility] Address: [address] [place] [address] Performed By: #### 5 7021-8 ####[facility] LABCLIA [id number] [place] [address] [place] Eosinophils (Bld) [#/Vol] 0.06 10*3/uL Normal <0.[address] [facility] Comment on above: Order Comment: Speci men Type: BLOOD SPECIMENOrdering Facility: [facility] Address: [address] [place] [address] Performed By: #### 5 7021-8 ####[facility] LABCLIA [id number] [place] [address] [place] Eosinophils/100 WBC (Bld) 0.8 % Normal [facility] Comment on above: Order Comment: Speci men Type: BLOOD SPECIMENOrdering Facility: [facility] Address: [address] [place] [address] Performed By: #### 5 7021-8 ####[facility] LABCLIA [id number] [address], [place] [address] [place] Erythrocyte distribution width (RBC) [Ratio] 13.6 % Normal 11.5-15.[address] [facility] Comment on above: Order Comment: Speci men Type: BLOOD SPECIMENOrdering Facility: [facility] Address: [address] [place] [address] Performed By: #### 5 7021-8 ####[facility] LABIA [id number] [address], [place] [address] [place] Hematocrit (Bld) [Volume fraction] 35.0 % Low 36.0-46.[address] [facility] Comment on above: Order Comment: Speci men Type: BLOOD SPECIMENOrdering Facility: [facility] Address: [address] [place] [address] Performed By: #### 5 7021-8 ####[facility] LABIA [id number] [address], [facility] [place] Hemoglobin (Bld) [Mass/Vol] 11.7 g/dL Normal 11.5-15.[address] [facility] Comment on above: Order Comment: Speci men Type: BLOOD SPECIMENOrdering Facility: [facility] Address: [address] [place] [address] Performed By: #### 5 7021-8 ####[facility] LABCLIA [id number] [facility] [address], [facility] [place] Immature granulocytes (Bld) [#/Vol] 10*3/uL Normal <0.[address] [facility] Comment on above: Order Comment: Speci men Type: BLOOD SPECIMENOrdering Facility: [facility] Address: [address] [place] [address] Performed By: #### 5 7021-8 ####[facility] LABCLIA [id number] [place] [address] [place] Immature granulocytes/100 WBC (Bld) 0.3 % Normal [facility] Comment on above: Order Comment: Speci men Type: BLOOD SPECIMENOrdering Facility: [facility] Address: [address] [place] [address] Performed By: #### 5 7021-8 ####[facility] LABCLIA [id number] [place] [address] [place] Lymphocytes (Bld) [#/Vol] 0.96 10*3/uL Low 1.00-4.[address] [facility] Comment on above: Order Comment: Speci men Type: BLOOD SPECIMENOrdering Facility: [facility] Address: [address] [place] [address] Performed By: #### 5 7021-8 ####[facility] LABCLIA [id number] [place] [address] [place] Lymphocytes/100 WBC (Bld) 12.5 % Normal [facility] Comment on above: Order Comment: Speci men Type: BLOOD SPECIMENOrdering Facility: [facility] Address: [address] [place] [address] Performed By: #### 5 7021-8 ####[facility] LABCLIA [id number] [place] [address] [place] MCH (RBC) [Entitic mass] 31.5 pg Normal 26.0-34.[address] [facility] Comment on above: Order Comment: Speci men Type: BLOOD SPECIMENOrdering Facility: [facility] Address: [address] [place] [address] Performed By: #### 5 7021-8 ####[facility] LABCLIA [id number] [place] [address] [place] MCHC (RBC) [Mass/Vol] 33.4 g/dL Normal 30.5-36.0 [facility] Comment on above: Order Comment: Speci men Type: BLOOD SPECIMENOrdering Facility: [facility] Address: [address] [place] [address] Performed By: #### 5 7021-8 ####[facility] LABCLIA [id number] [place] [address] [place] MCV (RBC) [Entitic vol] 94.1 fL Normal 80.0-100.0 [facility] Comment on above: Order Comment: Speci men Type: BLOOD SPECIMENOrdering Facility: [facility] Address: [address] [place] [address] Performed By: #### 5 7021-8 ####[facility] LABCLIA [id number] [place] [address] [place] Monocytes (Bld) [#/Vol] 0.49 10*3/uL Normal <0.[address] [facility] Comment on above: Order Comment: Speci men Type: BLOOD SPECIMENOrdering Facility: [facility] Address: [address] [place] [address] Performed By: #### 5 7021-8 ####[facility] LABCLIA [id number] [place] [address] [place] Monocytes/100 WBC (Bld) 6.4 % Normal [facility] Comment on above: Order Comment: Speci men Type: BLOOD SPECIMENOrdering Facility: [facility] Address: [address] [place] [address] Performed By: #### 5 7021-8 ####[facility] LABCLIA [id number] [place] [id number] [place] Neutrophils (Bld) [#/Vol] 6.07 10*3/uL Normal 1.45-7.[address] [facility] Comment on above: Order Comment: Speci men Type: BLOOD SPECIMENOrdering Facility: [facility] Address: [address] [place] [address] Performed By: #### 5 7021-8 ####[facility] LABCLIA [id number] [place] [address] [place] Neutrophils/100 WBC (Bld) 79.1 % Normal [facility] Comment on above: Order Comment: Speci men Type: BLOOD SPECIMENOrdering Facility: [facility] Address: [address] [place] [address] Performed By: #### 5 7021-8 ####[facility] LABCLIA [id number] [place] [address] [place] Nucleated RBC (Bld) [#/Vol] 10*3/uL Normal <0.[address] [facility] Comment on above: Order Comment: Speci men Type: BLOOD SPECIMENOrdering Facility: [facility] Address: [address] [place] [address] Performed By: #### 5 7021-8 ####[facility] LABCLIA [id number] [place] [address] [place] Nucleated RBC/100 WBC (Bld) [Ratio] 0.0 /[address] [facility] Comment on above: Order Comment: Speci men Type: BLOOD SPECIMENOrdering Facility: [facility] Address: [address] [place] [address] Performed By: #### 5 7021-8 ####[facility] LABIA [id number] [place] [address] [place] Platelet mean volume (Bld) [Entitic vol] 9.6 fL Normal 9.0-12.[address] [facility] Comment on above: Order Comment: Speci men Type: BLOOD SPECIMENOrdering Facility: [facility] Address: [address] [place] [address] Performed By: #### 5 7021-8 ####[facility] LABCLIA [id number] [place] [address] [place] Platelets (Bld) [#/Vol] 280 10*3/uL Normal 150-[address] [facility] Comment on above: Order Comment: Speci men Type: BLOOD SPECIMENOrdering Facility: [facility] Address: [address] [place] [address] Performed By: #### 5 7021-8 ####[facility] LABIA [id number] [place] [address] [place] RBC (Bld) [#/Vol] 3.72 10*6/uL Low 3.90-5.20 [facility] Comment on above: Order Comment: Speci men Type: BLOOD SPECIMENOrdering Facility: [facility] Address: [address] [place] [address] Performed By: #### 5 7021-8 ####[facility] [id number] [place] [address] [place] WBC (Bld) [#/Vol] 7.67 10*3/uL Normal 3.70-11.00 [facility] Comment on above: Order Comment: Speci men Type: BLOOD SPECIMENOrdering Facility: [facility] Address: [address] [place] [address] Performed By: #### 5 7021-8 ####[facility] [id number] [place] [address] [place] CBC W Auto Differential pane l (Bld)on 07-22-2025 Basophils (Bld) [#/Vol] 0.10 10*3/uL Normal <0.[address] [facility] Comment on above: Order Comment: Speci men Type: BLOOD SPECIMENOrdering Facility: [facility] Address: [address] [place] [address] Performed By: #### 5 7021-8 ####[facility] LABIA [id number] [place] [address] [place] Basophils/100 WBC (Bld) 0.8 % Normal [facility] Comment on above: Order Comment: Speci men Type: BLOOD SPECIMENOrdering Facility: [facility] Address: [address] [place] [address] Performed By: #### 5 7021-8 ####[facility] LABCLIA [id number] [place] [address] [place] Differential cell count method Nom (Bld) Auto Normal [facility] Comment on above: Order Comment: Speci men Type: BLOOD SPECIMENOrdering Facility: [facility] Address: [address] [place] [address] Performed By: #### 5 7021-8 ####[facility] LABCLIA [id number] [place] [address] [place] Eosinophils (Bld) [#/Vol] 0.07 10*3/uL Normal <0.[address] [facility] Comment on above: Order Comment: Speci men Type: BLOOD SPECIMENOrdering Facility: [facility] Address: [address] [place] [address] Performed By: #### 5 7021-8 ####[facility] LABCLIA [id number] [place] [address] [place] Eosinophils/100 WBC (Bld) 0.6 % Normal [facility] Comment on above: Order Comment: Speci men Type: BLOOD SPECIMENOrdering Facility: [facility] Address: [address] [place] [address] Performed By: #### 5 7021-8 ####[facility] LABCLIA [id number] [place] [address] [place] Erythrocyte distribution width (RBC) [Ratio] 13.6 % Normal 11.5-15.[address] [facility] Comment on above: Order Comment: Speci men Type: BLOOD SPECIMENOrdering Facility: [facility] Address: [address] [place] [address] Performed By: #### 5 7021-8 ####[facility] LABCLIA [id number] [place] [address] [place] Hematocrit (Bld) [Volume fraction] 36.8 % Normal 36.0-46.[address] [facility] Comment on above: Order Comment: Speci men Type: BLOOD SPECIMENOrdering Facility: [facility] Address: [address] [place] [address] Performed By: #### 5 7021-8 ####[facility] LABCLIA [id number] [place] [address] [place] Hemoglobin (Bld) [Mass/Vol] 12.2 g/dL Normal 11.5-15.[address] [facility] Comment on above: Order Comment: Speci men Type: BLOOD SPECIMENOrdering Facility: [facility] Address: [address] [place] [address] Performed By: #### 5 7021-8 ####[facility] LABCLIA [id number] [place] [address] [place] Immature granulocytes (Bld) [#/Vol] 0.07 10*3/uL Normal <0.[address] [facility] Comment on above: Order Comment: Speci men Type: BLOOD SPECIMENOrdering Facility: [facility] Address: [address] [place] [address] Performed By: #### 5 7021-8 ####[facility] LABCLIA [id number] [place] [address] [place] Immature granulocytes/100 WBC (Bld) 0.6 % Normal [facility] Comment on above: Order Comment: Speci men Type: BLOOD SPECIMENOrdering Facility: [facility] Address: [address] [place] [address] Performed By: #### 5 7021-8 ####[facility] LABCLIA [id number] [place] [address] [place] Lymphocytes (Bld) [#/Vol] 1.28 10*3/uL Normal 1.00-4.[address] [facility] Comment on above: Order Comment: Speci men Type: BLOOD SPECIMENOrdering Facility: [facility] Address: [address] [place] [address] Performed By: #### 5 7021-8 ####[facility] LABIA [id number] [place] [address] [place] Lymphocytes/100 WBC (Bld) 10.8 % Normal [facility] Comment on above: Order Comment: Speci men Type: BLOOD SPECIMENOrdering Facility: [facility] Address: [address] [place] [address] Performed By: #### 5 7021-8 ####[facility] LABIA [id number] [place] [address] [place] MCH (RBC) [Entitic mass] 31.8 pg Normal 26.0-34.[address] [facility] Comment on above: Order Comment: Speci men Type: BLOOD SPECIMENOrdering Facility: [facility] Address: [address] [place] [address] Performed By: #### 5 7021-8 ####[facility] [id number] [place] [address] [place] MCHC (RBC) [Mass/Vol] 33.2 g/dL Normal 30.5-36.0 [facility] Comment on above: Order Comment: Speci men Type: BLOOD SPECIMENOrdering Facility: [facility] Address: [address] [place] [address] Performed By: #### 5 7021-8 ####[facility] LABIA [id number] [place] [address] [place] MCV (RBC) [Entitic vol] 95.8 fL Normal 80.0-100.0 [facility] Comment on above: Order Comment: Speci men Type: BLOOD SPECIMENOrdering Facility: [facility] Address: [address] [place] [address] Performed By: #### 5 7021-8 ####[facility]IA [id number] [place] [address] [place] Monocytes (Bld) [#/Vol] 0.77 10*3/uL Normal <0.[address] [facility] Comment on above: Order Comment: Speci men Type: BLOOD SPECIMENOrdering Facility: [facility] Address: [address] [place] [address] Performed By: #### 5 7021-8 ####[facility] LABCLIA [id number] [facility] [address], [place] [address] [place] Monocytes/100 WBC (Bld) 6.5 % Normal [facility] Comment on above: Order Comment: Speci men Type: BLOOD SPECIMENOrdering Facility: [facility] Address: [address] [place] [address] Performed By: #### 5 7021-8 ####[facility] LABCLIA [id number] [place] [address] [place] Neutrophils (Bld) [#/Vol] 9.57 10*3/uL High 1.45-7.[address] [facility] Comment on above: Order Comment: Speci men Type: BLOOD SPECIMENOrdering Facility: [facility] Address: [address] [place] [address] Performed By: #### 5 7021-8 ####[facility] LABCLIA [id number] [facility] [address] [place] Neutrophils/100 WBC (Bld) 80.7 % Normal [facility] Comment on above: Order Comment: Speci men Type: BLOOD SPECIMENOrdering Facility: [facility] Address: [address] [place] [address] Performed By: #### 5 7021-8 ####[facility] LABCLIA [id number] [place] [id number] [place] Nucleated RBC (Bld) [#/Vol] 10*3/uL Normal <0.[address] [facility] Comment on above: Order Comment: Speci men Type: BLOOD SPECIMENOrdering Facility: [facility] Address: [address] [place] [address] Performed By: #### 5 7021-8 ####[facility] LABCLIA [id number] [place] [address] [place] Nucleated RBC/100 WBC (Bld) [Ratio] 0.0 /[address] [facility] Comment on above: Order Comment: Speci men Type: BLOOD SPECIMENOrdering Facility: [facility] Address: [address] [place] [address] Performed By: #### 5 7021-8 ####[facility] LABCLIA [id number] [place] [address] [place] Platelet mean volume (Bld) [Entitic vol] 9.6 fL Normal 9.0-12.[address] [facility] Comment on above: Order Comment: Speci men Type: BLOOD SPECIMENOrdering Facility: [facility] Address: [address] [place] [address] Performed By: #### 5 7021-8 ####[facility] LABCLIA [id number] [place] [address] [place] Platelets (Bld) [#/Vol] 388 10*3/uL Normal 150-[address] [facility] Comment on above: Order Comment: Speci men Type: BLOOD SPECIMENOrdering Facility: [facility] Address: [address] [place] [address] Performed By: #### 5 7021-8 ####[facility] LABCLIA [id number] [place] [address] [place] RBC (Bld) [#/Vol] 3.84 10*6/uL Low 3.90-5.20 [facility] Comment on above: Order Comment: Speci men Type: BLOOD SPECIMENOrdering Facility: [facility] Address: [address] [place] [address] Performed By: #### 5 7021-8 ####[facility] LABCLIA [id number] [place] [address] [place] WBC (Bld) [#/Vol] 11.86 10*3/uL High 3.70-11.00 [facility] Comment on above: Order Comment: Speci men Type: BLOOD SPECIMENOrdering Facility: [facility] Address: [address] [place] [address] Performed By: #### 5 7021-8 ####[facility] LABIA [id number] [address] [place] CNOVon 07-22-2025 CNOV Office Visit (FAMPWS ) MÓNICA DECKER ([id number]) 1950 F NFR Date Time Provider Department 07/22/25 1:00 PM [facility] During your visit today, we recorded the following information about you: Pulse Respiration Blood pressure Weight 64/minute 16/minute 98/68 67.8 kg Height 1.499 m Mateo Marmolejo MD 07/24/2025 8:36 PM Signed Mónica Decker is a 75 year old female here for a Medicare wellness visit. Medicare Health Risk Assessment General Health Fair Exercise: Minutes/Day On average, how many minutes do you engage in exercise at this level?: 150+ min (doing chores) Exercise: Days/Week 7 days Alcohol: Daily Use Never Alcohol: Drinks/Day Patient does not drink Alcohol: 6 or more drinks Never Feel off balance No Concerns: Teeth/Dentures No Concerns: Sexual function No Troubled by feelings Anxious Frequency: Eating healthy diet Nearly every day ADLs requiring help Grocery shopping Safety precautions in home/vehicle No (Rugs in home, no grab bars in bathroom. Following all other safety precautions) Smoke, vape, chews tobacco No Difficulty hearing Yes Difficulty seeing No Current Providers Specialists: I have reviewed specialist-related care of the patient in the medical record. Medical/Family history review Reviewed and updated problem list, medical/surgical/famil y/social history, medications, and allergies. Opioid use review Opioid Medications (last 90 days) No data to display Anxiety/Depression screening PHQ-2 Score: 1 (Lower risk for depression) MAKI-2 Score: 2 (Lower risk for anxiety) Recommendation: no further intervention at this time, does not some anxiety Cognitive screening Cognitive screening reviewed and Patient has known cognitive impairment. Functional Observation Was the patient's Timed Up AND Go test unsteady or >= 12 seconds? No Advance Care Planning Patient did not wish or was not able to name a surrogate decision maker or provide an advance care plan Measurements BP 98/68 (BP Site: Left Arm, BP Position: Sitting, BP Cuff Size: Regular Adult) Pulse 64 Resp 16 Ht 149.9 cm (4' 11) Wt 67.8 kg (149 lb 6.4 oz) BMI 30.18 kg/m? Vision Screening: Follows with optometry/ophthalmolog y Assessment/Plan Medicare annual wellness visit, subsequent (Z00.00) - Counseled on healthy diet and regular exercise - Fall avoidance information provided - Personalized prevention plan provided See below Chief Complaint Patient presents with: Medicare Wellness Exam HPI Mónica Decker is a 75 year old female who presents here today for a Medicare wellness and a routine follow up. Patient with hx of HTN, Hyperlipidemia, Hypothyroidism, elevated A1c, gout, allergies, Obesity, SANDRA, OAB, Hidradenitis suppurativa Mónica reports ongoing issues with hidradenitis suppurativa, including swelling in the groin area described as like a plum and draining spots. She has not yet established care with a labeling associate but is in the process of scheduling an appointment at [facility]. She expresses concern about the possibility of requiring surgical intervention again. She has a history of bilateral hip replacements, with the most recent surgery in March. The first hip replacement on the right side was successful, with Mónica reportedly ambulating the next day. However, the second hip replacement on the left side was complicated by an allergic reaction to the anesthetic, resulting in a 2-month stay in a healthcare facility. She reports significant weight loss over the past couple of years, attributed to changes in diet and increased physical activity related to animal care. She denies recent fevers, but notes recent onset of headaches, which are unusual for her. She reports no sudden changes in hearing or vision, though she does note decreased hearing. She denies issues with her nose or throat, but reports a cough with phlegm production, initially clear but now yellow. She experiences dyspnea with fast walking, but denies chest pain or palpitations. She also denies lower extremity edema, nausea, emesis, or hematochezia, but reports intermittent diarrhea and a burning sensation with urination. She denies changes in urinary frequency, muscle or joint aches, new skin lesions, easy bruising or bleeding, changes in heat or cold tolerance, increased thirst, syncope, seizures, or tremors. She does report anxiety-related hand tremors. She receives home care twice a week for assistance with bathing due to shoulder stiffness. She is able to do her own laundry and drive short distances. Her brother assists with medical appointments and shopping. Past medical history, appointments, medications, allergies reviewed. Previous Medical History PAST MEDICAL HISTORY Diagnosis Date 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 01/24/2021 Adenomatous colon saul (more content not included)... Normal [facility] Comprehensive metabolic 2000 panelon 07-22-2025 Albumin [Mass/Vol] 4.3 g/dL Normal 3.9-4.9 [facility] Comment on above: Order Comment: Jeri felix Type: BLOOD SPECIMENOrdering Facility: [facility] Address: [address] [place] [address] Performed By: #### 2 132-9, 77370-9, 3016-3, LIPNF ####[facility] LABCLIA [id number] [place] [address] [place] ALP [Catalytic activity/Vol] 93 U/L Normal 34-[address] [facility] Comment on above: Order Comment: Valei isidro Type: BLOOD SPECIMENOrdering Facility: [facility] Address: [address] [place] [address] Performed By: #### 2 132-9, 23784-1, 3016-3, LIPNF ####[facility] LABCLIA [id number] [place] [id number] [place] ALT [Catalytic activity/Vol] 22 U/L Normal 7-[address] [facility] Comment on above: Order Comment: Speci men Type: BLOOD SPECIMENOrdering Facility: [facility] Address: [address] [place] [address] Performed By: #### 2 132-9, 00668-4, 3016-3, LIPNF ####[facility] LABCLIA [id number] [place] [address] [place] Anion gap [Moles/Vol] 15 mmol/L Normal 8-15 [facility] Comment on above: Order Comment: Speci men Type: BLOOD SPECIMENOrdering Facility: [facility] Address: [address] [place] [address] Performed By: #### 2 132-9, 80965-8, 3016-3, LIPNF ####[facility] LABCLIA [id number] [place] [address] [place] AST [Catalytic activity/Vol] 23 U/L Normal 13-[address] [facility] Comment on above: Order Comment: Speci men Type: BLOOD SPECIMENOrdering Facility: [facility] Address: [address] [place] [address] Performed By: #### 2 132-9, 62730-1, 3016-3, LIPNF ####[facility] LABCLIA [id number] [place] [address] [place] Bilirubin [Mass/Vol] 0.7 mg/dL Normal 0.2-1.3 [facility] Comment on above: Order Comment: Speci men Type: BLOOD SPECIMENOrdering Facility: [facility] Address: [address] [place] [address] Performed By: #### 2 132-9, 10831-9, 3016-3, LIPNF ####[facility] LABCLIA [id number] [place] [address] [place] Calcium [Mass/Vol] 9.8 mg/dL Normal 8.5-10.2 [facility] Comment on above: Order Comment: Speci men Type: BLOOD SPECIMENOrdering Facility: [facility] Address: [address] [place] [address] Performed By: #### 2 132-9, 03569-0, 3016-3, LIPNF ####[facility] LABCLIA [id number] [facility] [address] [address] [place] Chloride [Moles/Vol] 100 mmol/L Normal 98-107 [facility] Comment on above: Order Comment: Speci men Type: BLOOD SPECIMENOrdering Facility: [facility] Address: [address] [place] [address] Performed By: #### 2 132-9, 94150-2, 3016-3, LIPNF ####[facility] LABCLIA [id number] [place] [address] [place] CO2 [Moles/Vol] 19 mmol/L Low 22-[address] [facility] Comment on above: Order Comment: Speci men Type: BLOOD SPECIMENOrdering Facility: [facility] Address: [address] [place] [address] Performed By: #### 2 132-9, 35486-1, 3016-3, LIPNF ####[facility] LABCLIA [id number] [address] [address] [place] Creatinine [Mass/Vol] 1.45 mg/dL High 0.58-0.96 [facility] Comment on above: Order Comment: Speci men Type: BLOOD SPECIMENOrdering Facility: [facility] Address: [address] [place] [address] Performed By: #### 2 132-9, 50119-2, 3016-3, LIPNF ####[facility] LABCLIA [id number] [facility] [address] [place] [address] [place] eGFRcr SerPlBld CKD-EPI 2021 37 mL/min/1.73m??? Low >=[address] [facility] Comment on above: Order Comment: Specmyranda felix Type: BLOOD SPECIMENOrdering Facility: [facility] Address: [address] [place] [address] Result Comment: Ashley mated Glomerular Filtration Rate (eGFR) is calculated using the 2020 CKD-EPI creatinine equation. This equation utilizes serum creatinine, sex, and age as parameters. The creatinine assay has traceable calibration to isotope dilution-mass spectrometry. Refer to KDIGO guidelines for clinical interpretation. In patients with unstable renal function, e.g. those with acute kidney injury, the eGFR may not accurately reflect actual GFR. Performed By: #### 2 132-9, 30183-3, 3016-3, LIPLLOYD ####[facility] LABCLIA [id number] [place] [address] [place] Glucose [Mass/Vol] 94 mg/dL Normal 74-99 [facility] Comment on above: Order Comment: Jeri felix Type: BLOOD SPECIMENOrdering Facility: [facility] Address: [address] [place] [address] Result Comment: The [place] Diabetes Association (ADA) provides guidance for cutoff values for fasting glucose and random glucose. The ADA defines fasting as no caloric intake for at least 8 hours. Fasting plasma glucose results between 100 to 125 mg/dL indicate increased risk for diabetes (prediabetes). Fasting plasma glucose results greater than or equal to 126 mg/dL meet the criteria for diagnosis of diabetes. In the absence of unequivocal hyperglycemia, results should be confirmed by repeat testing. In a patient with classic symptoms of hyperglycemia or hyperglycemic crisis, random plasma glucose results greater than or equal to 200 mg/dL meet the criteria for diagnosis of diabetes. Reference: Standards of Medical Care in Diabetes 2016, [place] Diabetes Association. Diabetes Care. 2016.39(Suppl 1). Performed By: #### 2 132-9, 67036-8, 3016-3, LIPNF ####[facility] LABCLIA [id number] [address] [address] [place] Potassium [Moles/Vol] 5.1 mmol/L Normal 3.7-5.1 [facility] Comment on above: Order Comment: Speci men Type: BLOOD SPECIMENOrdering Facility: [facility] Address: [address] [place], [place] [address] Performed By: #### 2 132-9, 32934-5, 3016-3, LIPNF ####[facility] LABCLIA [id number] [address] [place] [address] [place] Protein [Mass/Vol] 6.6 g/dL Normal 6.3-8.0 [facility] Comment on above: Order Comment: Speci men Type: BLOOD SPECIMENOrdering Facility: [facility] Address: [address] [place] [address] Performed By: #### 2 132-9, 82477-0, 3016-3, LIPNF ####[facility] LABCLIA [id number] [address] [address] [place] Sodium [Moles/Vol] 134 mmol/L Low 136-144 [facility] Comment on above: Order Comment: Speci men Type: BLOOD SPECIMENOrdering Facility: [facility] Address: [address] [place] [address] Performed By: #### 2 132-9, 66624-4, 6-3, LIPNF ####[facility] LABCLIA [id number] [address] [address] [place] Urea nitrogen [Mass/Vol] 32 mg/dL High 7-[address] [facility] Comment on above: Order Comment: Speci men Type: BLOOD SPECIMENOrdering Facility: [facility] Address: [address] [place], [place] [address] Performed By: #### 2 132-9, 35859-6, 3016-3, LIPNF ####[facility] LABCLIA [id number] [address] [place] [address] [place] HbA1c (Bld)on 07-22-2025 Average glucose Estimated from glycated hemoglobin (Bld) [Mass/Vol] 114 mg/dL Normal [facility] Comment on above: Order Comment: Speci men Type: BLOOD SPECIMENOrdering Facility: [facility] Address: [address] [place] [address] Result Comment: eAG: (Estimated average glucose) is a calculated value from HgbA1c and is personal banking representative of the average blood glucose level in the last 2-3 month period. Performed By: #### 5 5454-3 ####[facility] LABCLIA [id number] [place] [address] [place] HbA1c (Bld) [Mass fraction] 5.6 % Normal 4.3-5.[address] [facility] Comment on above: Order Comment: Speci men Type: BLOOD SPECIMENOrdering Facility: [facility] Address: [address] [place] [address] Result Comment: David ican Diabetes Association guidelines indicate that patients with HgbA1c in the range 5.7-6.4% are at increased risk for development of diabetes, and intervention by lifestyle modification may be beneficial. HgbA1c greater or equal to 6.5% is considered diagnostic of diabetes. Performed By: #### 5 5454-3 ####[facility] LABCLIA [id number] [place] [address] [place] LIPID PANEL, NONFASTINGon Cholesterol [Mass/Vol] 170 mg/dL Normal <200 [facility] Comment on above: Order Comment: Speci men Type: BLOOD SPECIMENOrdering Facility: [facility] Address: [address] [place] [address] Result Comment: <200 mg/dL, Desirable 200-239 mg/dL, Borderline high >239 mg/dL, High Performed By: #### 2 132-9, 24321-5, 3016-3, LIPNF ####[facility] LABCLIA [id number] [place] [address] [place] HDL CHOLESTEROL, NF 56 mg/dL Normal >39 [facility] Comment on above: Order Comment: Speci men Type: BLOOD SPECIMENOrdering Facility: [facility] Address: [address] [place] [address] Result Comment: 40-5 9 mg/dL, Acceptable >59 mg/dL, High: Negative risk factor for coronary heart disease <40 mg/dL, Low: Positive risk factor for coronary heart disease Performed By: #### 2 132-9, 94801-9, 3016-3, LIPNF ####[facility] LABCLIA [id number] [address] [place] LDL CHOLESTEROL CALCULATED, NF 84 mg/dL Normal <[address] [facility] Comment on above: Order Comment: Speci men Type: BLOOD SPECIMENOrdering Facility: [facility] Address: [address] [place] [address] Result Comment: <100 mg/dL, Optimal 100-129 mg/dL, Near optimal/above optimal 130-159 mg/dL, Borderline high 160-189 mg/dL, High >189 mg/dL, Very high Secondary prevention optimal LDL Cholesterol levels are recommended to be <70 mg/dL LDL cholesterol is calculated using the Stoll-NIH equation. Performed By: #### 2 132-9, 15362-7, 6-3, LIPNF ####[facility] LABCLIA [id number] [address] [place] LDL/HDL RATIO, NF 1.50 mg/dL Normal <2.54 [facility] Comment on above: Order Comment: Speci men Type: BLOOD SPECIMENOrdering Facility: [facility] Address: [address] [place] [address] Result Comment: Refe rence: 1. National Cholesterol Education Program ATP III Guideline At-A-Glance Quick Desk Reference: National Heart, Lung, and Blood [place]. National Institutes of Health. 2001: NIH Publication No. 01-3305. 2. An International Atherosclerosis Society position paper: global recommendations for the management of dyslipidemia: executive summary, Atherosclerosis. 2014: 232(2):410-413. Performed By: #### 2 132-9, 01573-0, 3016-3, LIPNF ####[facility] LABCLIA [id number] [address] [place] NON HDL CHOL, NF 114 mg/dL Normal <130 [facility] Comment on above: Order Comment: Speci men Type: BLOOD SPECIMENOrdering Facility: [facility] Address: [address] [place] [address] Result Comment: <130 mg/dL, Optimal 130-159 mg/dL, Near optimal/above optimal 160-189 mg/dL, Borderline high 190-219 mg/dL, High >219 mg/dL, Very high Secondary prevention optimal non HDL Cholesterol levels are recommended to be <100 mg/dL Performed By: #### 2 132-9, 89327-7, 3016-3, LIPNF ####[facility] LABCLIA [id number] [address] [place] T CHOL/HDL RATIO NF 3.04 mg/dL Normal <5.10 [facility] Comment on above: Order Comment: Speci men Type: BLOOD SPECIMENOrdering Facility: [facility] Address: [address] [place] [address] Performed By: #### 2 132-9, 17325-1, 3016-3, LIPNF ####[facility] LABCLIA [id number] [place] [address] [place] TRIGLYCERIDES, NF 178 mg/dL High <150 [facility] Comment on above: Order Comment: Speci men Type: BLOOD SPECIMENOrdering Facility: [facility] Address: [address] [place] [address] Result Comment: <150 mg/dL, Normal 150-199 mg/dL, Borderline high 200-499 mg/dL, High >499 mg/dL, Very high Performed By: #### 2 132-9, 51460-5, 3016-3, LIPNF ####[facility] LABCLIA [id number] [place] [address] [place] VLDL CHOLESTEROL, NF 28 mg/dL Normal <30 [facility] Comment on above: Order Comment: Speci men Type: BLOOD SPECIMENOrdering Facility: [facility] Address: [address] [place] [address] Performed By: #### 2 132-9, 03808-9, 3016-3, LIPNF ####[facility] LABCLIA [id number] [address], [place] [address] [place] TSH SerPl-aCncon 07-22-2025 TSH Qn 4.060 m[IU]/L Normal 0.270-4.[address] [facility] Comment on above: Order Comment: Speci men Type: BLOOD SPECIMENOrdering Facility: [facility] Address: [address] [place] [address] Performed By: #### 2 132-9, 70189-4, 3016-3, LIPNF ####[facility] LABCLIA [id number] [address], [place] [address] [place] Urinalysis complete panel (U )on 07-22-2025 Bacteria LM.HPF (Urine sed) [#/Area] Negative Normal Negative [facility] Comment on above: Order Comment: Speci men Type: URINE SPECIMENOrdering Facility: [facility] Address: [address] [place] [address] Performed By: #### 2 4356-8 ####[facility] LABCLIA [id number] [place] [id number] [place] Bilirubin Ql (U) Negative Normal Negative [facility] Comment on above: Order Comment: Speci men Type: URINE SPECIMENOrdering Facility: [facility] Address: [address] [place] [address] Performed By: #### 2 4356-8 ####[facility] LABIA [id number] [place] [id number] [place] Clarity (Unsp spec) Clear Normal Clear [facility] Comment on above: Order Comment: Speci men Type: URINE SPECIMENOrdering Facility: [facility] Address: [address] [place] [address] Performed By: #### 2 4356-8 ####[facility] LABCLIA [id number] [place] [address] [place] Color (U) Yellow Normal Yellow [facility] Comment on above: Order Comment: Speci men Type: URINE SPECIMENOrdering Facility: [facility] Address: [address] [place] [address] Performed By: #### 2 4356-8 ####[facility] LABCLIA [id number] [address] Epithelial cells LM.HPF (Urine sed) [#/Area] None Seen Normal [facility] Comment on above: Order Comment: Speci men Type: URINE SPECIMENOrdering Facility: [facility] Address: [address] [place] [address] Result Comment: Few Performed By: #### 2 4356-8 ####[facility] LABCLIA [id number] [address] [place] Glucose Test strip (U) [Mass/Vol] Negative Normal Negative [facility] Comment on above: Order Comment: Speci men Type: URINE SPECIMENOrdering Facility: [facility] Address: [address] [place] [address] Performed By: #### 2 4356-8 ####[facility] LABCLIA [id number] [place] [address] [place] Hemoglobin Ql (U) Negative Normal Negative [facility] Comment on above: Order Comment: Speci men Type: URINE SPECIMENOrdering Facility: [facility] Address: [address] [place] [address] Performed By: #### 2 4356-8 ####[facility] LABCLIA [id number] [place] [id number] [place] Hyaline casts (Urine sed) [#/Area] /[LPF] Abnormal 0 /LPF [facility] Comment on above: Order Comment: Speci men Type: URINE SPECIMENOrdering Facility: [facility] Address: [address] [place] [address] Performed By: #### 2 4356-8 ####[facility] LABCLIA [id number] [address] [place] [address] [place] Ketones Ql (U) Negative Normal Negative [facility] Comment on above: Order Comment: Speci men Type: URINE SPECIMENOrdering Facility: [facility] Address: [address] [place] [address] Performed By: #### 2 4356-8 ####[facility] LABCLIA [id number] [place] [address] [place] Leukocyte esterase Test strip Ql (U) 3+ Abnormal Negative [facility] Comment on above: Order Comment: Speci men Type: URINE SPECIMENOrdering Facility: [facility] Address: [address] [place] [address] Performed By: #### 2 4356-8 ####[facility] LABCLIA [id number] [place] [address] [place] Nitrite Ql (U) Negative Normal Negative [facility] Comment on above: Order Comment: Speci men Type: URINE SPECIMENOrdering Facility: [facility] Address: [address] [place] [address] Performed By: #### 2 4356-8 ####[facility] LABCLIA [id number] [place] [address] [place] pH (U) 5.5 [pH] Normal 5.0-8.[address] [facility] Comment on above: Order Comment: Speci men Type: URINE SPECIMENOrdering Facility: [facility] Address: [address] [place] [address] Performed By: #### 2 4356-8 ####[facility] LABCLIA [id number] [place] [address] [place] Protein (U) [Mass/Vol] Trace Abnormal Negative Cl [facility] Comment on above: Order Comment: Speci men Type: URINE SPECIMENOrdering Facility: [facility] Address: [address] [place] [address] Performed By: #### 2 4356-8 ####[facility] LABIA [id number] [place] [address] [place] RBC LM.HPF (Urine sed) [#/Area] 0-2 /HPF Normal 0-2 /HPF [facility] Comment on above: Order Comment: Speci men Type: URINE SPECIMENOrdering Facility: [facility] Address: [address] [place] [address] Performed By: #### 2 4356-8 ####[facility] [id number] [place] [address] [place] Specific gravity (U) [Rel density] 1.018 Normal 1.005-1.[address] [facility] Comment on above: Order Comment: Speci men Type: URINE SPECIMENOrdering Facility: [facility] Address: [address] [place] [address] Performed By: #### 2 4356-8 ####[facility] LABIA [id number] [address] [place] Urobilinogen Ql (U) 0.2 EU/dL Normal 0.2-1.0 EU/dL [facility] Comment on above: Order Comment: Speci men Type: URINE SPECIMENOrdering Facility: [facility] Address: [address] [place] [address] Performed By: #### 2 4356-8 ####[facility] LABIA [id number] [place] [address] [place] WBC LM.HPF (Urine sed) [#/Area] /[HPF] Abnormal 0-5 /HPF [facility] Comment on above: Order Comment: Speci men Type: URINE SPECIMENOrdering Facility: [facility] Address: [address] [place] [address] [place] [id number] Performed By: #### 2 4356-8 ####[facility] LABIA [id number] [place] [address] [place] Vit B12 SerPl-mCncon 07-22- 025 Cobalamin (Vitamin B12) [Mass/Vol] 898 pg/mL Normal 232-[address] [facility] Comment on above: Order Comment: Speci men Type: BLOOD SPECIMENOrdering Facility: [facility] Address: [address] [address] Performed By: #### 2 132-9, 67646-1, 3016-3, LIPNF ####[facility] LABIA [id number] [place] [address] [facility] CNOVon 07-13-2025 CNOV Office Visit (DANIELLER ) MÓNICA DECKER ([id number]) 1950 F NFR Date Time Provider Department 07/13/25 11:00 AM SARAH YING During your visit today, we recorded the following information about you: Pulse Respiration Blood pressure Weight 59/minute 16/minute 91/56 68.4 kg Sarah Ying MD 07/13/2025 11:53 AM Signed We discussed your hidradenitis suppurativa: - This condition involves sores in the groin area caused by inflamed sweat glands. Surgery to remove the affected sweat glands is being considered as part of your treatment plan. You are currently working with a labeling associate and surgeon to determine the next steps. - Continue taking Doxycycline as prescribed to help manage this condition. Let us know if you experience any worsening symptoms or side effects. We discussed your cognitive health: - Your recent cognitive test (MMSE) showed significant improvement compared to your previous results. This indicates that your current treatment plan is helping. - Continue taking your current medications as prescribed. The dosage will remain the same, as you are tolerating it well without significant side effects. - Please continue to monitor your cognitive function and let us know if you notice any changes. We discussed your mobility and walking: - Your walking has improved, and you are now able to walk short distances without a cane. The cane is currently being used more for balance than weight support. - Continue walking and staying active to improve knee flexibility and strength. Activities like caring for your animals and daily movement will help with this. We discussed your overall independence: - You are managing your medications, finances, and daily activities independently. Continue to let us know if you need any additional support. Follow-up: - I will see you again in 6 months to monitor your progress. - You have an appointment with Dr. Gardner in 2 weeks. Please follow up with them as scheduled. If you have any new or worsening symptoms, or if you have questions about your care plan, please contact our office. Sarah Ying MD 07/13/2025 6:09 PM Addendum Reason for Visit Follow up HPI Mónica Decker is a 75-year-old female, with a history of hidradenitis suppurativa, hypothyroidism, essential hypertension, hyperlipidemia, presenting for follow-up. Mónica recently underwent a surgical consultation for hidradenitis suppurativa on Friday. She reports that the condition is slowly progressing, getting closer to cure, but acknowledges that it can recur. She has a history of similar issues during her teenage years, which she attributes to riding horses bareback and exposure to dirt and sweat. At that time, she managed the condition by cleaning the affected areas with alcohol and using pimple cream. Currently, she is taking doxycycline as part of her treatment regimen. Mónica also has a history of thickened toenails, for which she has been seeing a air breaker operator. She reports that the air breaker operator has been trimming the nails to prevent further growth and complications. In addition to her dermatological issues, Mónica has been experiencing diarrhea, which she does not find debilitating. Its not clear if the diarrhea if from doxy or aricept/ Mónica has been taking a 10 mg aricept, which has shown significant improvement in her cognitive function. Her brother notes a big improvement in her cognitive abilities, She is able to take care of herself, manage her own medications, and pay her own bills. She lives alone and takes care of multiple cats and other animals. She can drive short distances but relies on her caregiver for longer trips and heavy lifting. She uses a cane for balance and is working on improving her knee flexibility. SOCIAL HISTORY[1] Past medical history, appointments, medications, allergies reviewed. Pertinent Lab/Diagnostic Studies are reviewed and discussed today Current Outpatient Medications: potassium chloride 20 mEq TbER allopurinol (ZYLOPRIM) 300 mg tablet amLODIPine (NORVASC) 10 mg tablet furosemide (LASIX) 40 mg tablet lisinopril (ZESTRIL) 40 mg tablet pravastatin (PRAVACHOL) 10 mg tablet donepezil (ARICEPT) 10 mg tablet levothyroxine (LEVOXYL) 150 mcg tablet cyanocobalamin (VITAMIN B-12) 1,000 mcg tab doxycycline (VIBRA-TABS) 100 mg tablet silver sulfADIAZINE (SILVADENE) 1 % cream acetaminophen (TYLENOL) 500 mg tablet polyethylene glycol 3350 17 gram packet Health Maintenance Advance Directive Discussion Depression Screening Anxiety Screening@ Review Of Systems Ears/Nose/Mouth/Throat : (+) tinnitus Gastrointestinal: (+) diarrhea Skin: (+) groin sores, (+) groin pain, (+) groin drainage Neurological: (+) spatial disorientation Physical Exam BP 91/56 Pulse (!) 59 Resp 16 Wt 68.4 kg (150 lb 12.8 oz) BMI 29.45 kg/m? GENERA (more content not included)... Normal [facility] Relevant diagnostic tests/la boratory data Narrativeon 07-11-2025 Fall risk assessment no REY [employer] Work Phone: MEDS REVIEW Documentation of current medications (procedure) [employer] Work Phone: MEDS REVIEWD Medications reviewed with changes [employer] Work Phone: CNOVon 07-07-2025 CNOV Office Visit (PODIWS ) BRIANNEMÓNICA ([id number]) 1950 F NFR Date Time Provider Department 07/07/25 2:00 PM LÓPEZ RANDALL TIMMY During your visit today, we recorded the following information about you: Purvi Paz MA 07/07/2025 2:58 PM Signed Patient presents with: Right Foot - Established Patient, Nail care Left Foot - Established Patient, Nail care AMB ROOMING INTAKE FLOWSHEET DATA Patient here for nail care today. López Randall 07/07/2025 2:58 PM Signed Subjective: Patient presents to clinic c/o painful toenails. They state that the nails are especially painful with shoe gear and pressure. Patient states that nails left 3rd toenail and right 2nd and right 3rd toenail are painful. No other pedal complaints at this time. Patient states no change in medications or medical history since last visit. Objective: Patient presents to clinic ambulating in [facility] Vasc: DP and PT pulses are palpable bilateral. CFT is less than 5 seconds bilateral. Skin temperature is warm to cool proximal to distal bilateral. There is moderate edema or varicosities noted. Neuro: Protective sensation is intact to the foot and toes when tested with the 5.07 SWM bilateral. Vibratory sensation is decreased at the hallux IPJ bilateral. The hallux is downgoing bilateral. Derm: Nails 1-5 b/l are painful, discolored-yellow, thick, crumbly, dystrophic and with subungal debris. Skin is of normal turgor, texture and hair growth is present bilateral. There are callus to b/l 1st metatarsal. No ulceration present. Ortho: Muscle strength is 5/5 for all pedal groups tested. Ankle joint DF is decreased with the knee extended with no pain or crepitus noted. 1st MPJ ROM is decreased bilateral. Large bunion is present to b/l feet. Assessment: (B35.1) Onychomycosis (primary encounter diagnosis) (M79.675) Pain in toe of left foot (M79.674) Pain in toe of right foot Plan: Patient was seen and evaluated. Nails 1-5 bilateral were debrided in length and thickness. Bleed present to left 3rd toenail due to severe deformity/thickening. . Silver nitrate used for hemostasis. Topical antibiotic applied. Discussed removal of toenails in future via chemical matrixectomy. This patient is not interested in chemical matrixectomy. Callus reduced with dremmel to b/l feet Follow-up in 2 months or sooner if problems arise DEEPALI Nye DPM Allergies As of Date: 07/07/2025 Noted Allergy Reaction LATEX 03/07/2021 16 - Unknown Date Reviewed: 07/07/2025 Reviewed by: Purvi Paz MA - Fully Assessed Reason for Visit: Established Patient [175] Nail care [Other] Established Patient [175] Nail care [Other] Primary Visit Diagnosis:Onychomycosi s [B35.1] Other Visit Diagnoses:Pain in toe of left foot [M79.675] Pain in toe of right foot [M79.674] Ingrown toenail [L60.0] Prescriptions as of 07/07/2025 - potassium chloride 20 mEq TbER Take 1 tablet by mouth once daily. - allopurinol (ZYLOPRIM) 300 mg tablet Take 1 tablet by mouth once daily. For gout. - amLODIPine (NORVASC) 10 mg tablet Take 1 tablet by mouth once daily. PLEASE MAIL TO PATIENT;S HOME - PILL FILI - furosemide (LASIX) 40 mg tablet Take 1 tablet by mouth once daily. PLEASE MAIL TO PATIENT;S HOME - PILL FILI - lisinopril (ZESTRIL) 40 mg tablet Take 1 tablet by mouth once daily. PLEASE MAIL TO PATIENT'S HOME - PILL FILI - pravastatin (PRAVACHOL) 10 mg tablet Take 1 tablet by mouth once daily. PLEASE MAIL TO PATIENT'S HOME - PILL FILI - donepezil (ARICEPT) 10 mg tablet Take 1 tablet by mouth daily at bedtime. - levothyroxine (LEVOXYL) 150 mcg tablet Take 1 tablet by mouth once daily. Mon-Sat and none on Friday. PLEASE MAIL TO PATIENT'S HOME - PILL FILI - cyanocobalamin (VITAMIN B-12) 1,000 mcg tab Take 1 tablet by mouth once daily. - doxycycline (VIBRA-TABS) 100 mg tablet Take 100 mg by mouth two times a day. 45 days - silver sulfADIAZINE (SILVADENE) 1 % cream - acetaminophen (TYLENOL) 500 mg tablet Take 2 tablets by mouth every 8 hours as needed for pain. - polyethylene glycol 3350 17 gram packet Take 1 Packet by mouth once daily. Dissolve dose in 4 - 8 ounces of liquid and take as directed. Problem List As Of Date 07/07/2025 Noted Resolved SANDRA (obstructive sleep apnea) [G47.33] 07/08/2005 Allergic rhinitis [J30.9] 07/08/2005 Essential hypertension, benign [I10] 07/08/2005 NONTOX NODUL GOITER NOS [E04.9] 07/08/2005 09/04/2005 Postsurgical hypothyroidism [E89.0] 09/04/2005 Primary osteoarthritis of both hips [M16.0] 06/20/2015 Primary osteoarthritis of both knees [M17.0] 06/20/2015 Personal history of colonic polyps [Z86.0100] 03/14/2016 Hyperlipidemia, mixed [E78.2] 02/05/2018 Medicare annual wellness visit, subsequent [Z00*08/27/2018 Well adult exam [Z00.00] 08/27/2018 03/25/2020 Elevated hemoglobin A1c [R73.09] (more content not included)... Normal [facility] MÓNICA DECKER ([id number]) 1950 F NFR Date Time Provider Department 06/09/25 [facility] your visit today, we recorded the following information about you: Monty Minor, ABIDA 06/09/2025 3:08 PM Signed Bev- [facility]- reports pt is due for recert now, and [facility] got involved with patient through the wound center. 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 Reports Dr. Eugene was signing orders, and Bev asked him to sign the 485, but he said he wouldn't because he hasn't seen patient in a couple weeks and advised Bev to ask Dr. Be to sign the [address]. [address] Be has only been at the wound center for a couple weeks. Bev asking if Dr. Marmolejo would sign the 485? Please advise Bev: [phone] Mateo Marmolejo MD 06/11/2025 1:00 PM Signed No I won't. I have not sen her since 06/2024 and it sounds like these orders for [facility] are related to her wound care and I'm not managing any of it. Kelvin Dietrich LPN 06/13/2025 10:24 AM Signed Left word for word of below message from Dr Marmolejo on Bev's confidential voice mail. Advised her to call and speak with a Triage Nurse if any questions. Kelvin Dietrich LPN Allergies As of Date: 06/09/2025 Noted Allergy Reaction LATEX 03/07/2021 16 - Unknown Date Reviewed: 05/06/2025 Reviewed by: Evelyn Lomas LPN - Fully Assessed Reason for Visit: Patient Question [1477] Prescriptions as of 06/13/2025 - allopurinol (ZYLOPRIM) 300 mg tablet Take 1 tablet by mouth once daily. For gout. - amLODIPine (NORVASC) 10 mg tablet Take 1 tablet by mouth once daily. PLEASE MAIL TO PATIENT;S HOME - PILL FILI - furosemide (LASIX) 40 mg tablet Take 1 tablet by mouth once daily. PLEASE MAIL TO PATIENT;S HOME - PILL FILI - lisinopril (ZESTRIL) 40 mg tablet Take 1 tablet by mouth once daily. PLEASE MAIL TO PATIENT'S HOME - PILL FILI - pravastatin (PRAVACHOL) 10 mg tablet Take 1 tablet by mouth once daily. PLEASE MAIL TO PATIENT'S HOME - PILL FILI - donepezil (ARICEPT) 10 mg tablet Take 1 tablet by mouth daily at bedtime. - levothyroxine (LEVOXYL) 150 mcg tablet Take 1 tablet by mouth once daily. Mon-Sat and none on Friday. PLEASE MAIL TO PATIENT'S HOME - PILL FILI - cyanocobalamin (VITAMIN B-12) 1,000 mcg tab Take 1 tablet by mouth once daily. - doxycycline (VIBRA-TABS) 100 mg tablet Take 100 mg by mouth two times a day. 45 days - silver sulfADIAZINE (SILVADENE) 1 % cream - potassium chloride 20 mEq TbER Take 1 tablet by mouth once daily. - acetaminophen (TYLENOL) 500 mg tablet Take 2 tablets by mouth every 8 hours as needed for pain. - polyethylene glycol 3350 17 gram packet Take 1 Packet by mouth once daily. Dissolve dose in 4 - 8 ounces of liquid and take as directed. Problem List As Of Date 06/09/2025 Noted Resolved SANDRA (obstructive sleep apnea) [G47.33] 07/08/2005 Allergic rhinitis [J30.9] 07/08/2005 Essential hypertension, benign [I10] 07/08/2005 NONTOX NODUL GOITER NOS [E04.9] 07/08/2005 09/04/2005 Postsurgical hypothyroidism [E89.0] 09/04/2005 Primary osteoarthritis of both hips [M16.0] 06/20/2015 Primary osteoarthritis of both knees [M17.0] 06/20/2015 Personal history of colonic polyps [Z86.0100] 03/14/2016 Hyperlipidemia, mixed [E78.2] 02/05/2018 Medicare annual wellness visit, subsequent [Z00*08/27/2018 Well adult exam [Z00.00] 08/27/2018 03/25/2020 Elevated hemoglobin A1c [R73.09] 08/27/2018 Screening for colon cancer [Z12.11] 08/27/2018 OAB (overactive bladder) [N32.81] 12/19/2020 Hammer toes of both feet [M20.41, M20.42] 01/24/2021 Foot callus [L84] 01/24/2021 Dystrophic nail [L60.3] 01/24/2021 Acute idiopathic gout involving toe of right fo*01/24/2021 Obesity, Class II, BMI 35-39.9 [E66.812] 02/19/2021 Advance directive discussed with patient [Z71.8*02/14/2022 Dermatitis [L30.9] 01/09/2023 Bilateral hip pain [M25.551, M25.552] 06/05/2023 S/P total right hip arthroplasty [Z96.641] 06/26/2023 S/P total left hip arthroplasty [Z96.642] 04/22/2024 Medication management [Z79.899] 07/23/2024 Low vitamin B12 level [R79.89] 07/26/2024 Urinary incontinence [R32] 07/28/2024 Ambulatory dysfunction [R26.2] 08/31/2024 Encounter Status:Closed by KELVIN DIETRICH on 06/13/[address] [facility] History AND Physic delmy 05-13-2025 Wound Ctr History & Physical [facility] [address] [place] [address] H P Exam - Wound Care 05/13/25 [id number] MR#: [id number] Acct: [id number] Name: MÓNICA DECKER Rep #: [id number] : 1950 75 From: Rachna Galvez DO PCP: Dr. Mateo Marmolejo MD Status:REG RCR Location: History of Present Illness Date of Service: 05/13/25 Chief Complaint: Nonhealing ulcers of groin area History of Wound: Mónica is a pleasant 75 yo woman that presents to the wound healing center for evaluation and treatment recommendations for nonhealing ulcers that are in her bilateral groin folds that have been present and waxed and waned in severity for 13 years. She reports that she has also had urinary incontinence that started around that time as well and she has been wearing disposable incontinence pads daily since then. She reports that the areas bleed and drain pratt fluid intermittently. At some points there have been 5 spots of blood and currently there is about 2. She is otherwise uncomplicated and does not have history of diabetes. She denies fever, chills, erythema, increased drainage and odor. She has some cognitive impairment which is due to dementia. Her brother Gerson accompanies her today and helps somewhat with the history and reinforcement of instructions. She has been being seen by Dr. Eugene and referred for consultation regarding any medical management recommendations. She was evaluated by MANAGER CAFE for possible Bartholin cyst but this was not felt to be an underlying cause. She sees Dr. Townsend for dermatology and is on Spironolactone. I saw her previously in July 2024 for similar complaints and she was referred to urology for urinary incontinence evaluation. 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 [facility] Medical History Post-menopausal Depression Anxiety Dementia Open wound Arthritis Non-smoker Shortness of breath on exertion Urinary incontinence Gout Hypothyroid High cholesterol HTN (hypertension) Home Medications ???Medication ???Instructions ???Recorded ???Last Taken ???Type levothyroxine 137 mcg tablet 150 mcg PO DAILY thyroid 01/06/20 01/05/20 History lisinopril 10 mg tablet 40 mg PO DAILY blood pressure 12/2501/04/20 History amlodipine 10 mg tablet (Norvasc) 10 mg PO DAILY 08/06/24 Unknown H istory furosemide 40 mg tablet (Lasix) 40 mg PO DAILY 08/06/24 Unknown Hi story pravastatin 10 mg tablet 10 mg PO QHS 08/06/24 Unknown Hist ory allopurinol 300 mg tablet 300 mg PO QDAY 12/10/24 Unknown Hi story mecobalamin (vitamin B12) 1,000 1,000 mcg PO QDAY 12/10/24 Unknown History mcg chewable tablet potassium chloride 20 mEq 20 meq PO QDAY 12/10/24 Unknown Hi story tablet,extended release donepezil 5 mg tablet 5 mg PO DAILY 01/04/25 Unknown His tory gabapentin 300 mg capsule 300 mg PO BID PRN pain (scale 07/0 07/21 Unknown Rx score 4-6) #30 caps spironolactone 100 mg tablet 100 mg PO QDAY #30 tabs 05/04/25 U nknown Rx Allergy/AdvReac Type Severity Reaction Status Date / Time Latex, Natural Rubber Allergy Mild Rash Verified 05/04/25 09:41 Family History Father Colon cancer Mother Hypertension Surgical History S/P D C (status post dilation and curettage) Status post amputation of finger S/P bladder repair History of left hip replacement H/O thyroidectomy History of right hip replacement Social History Smoking Status: Never smoker additional social history: Single ROS Constitutional Constitutional: Denies chills, fatigue or fever(s) Eyes Eyes: Denies blurry vision, change in vision or loss of vision ENT HEENT: Denies dysphagia, hearing loss or sore throat Cardiovascular Cardiovascular: Denies chest pain, edema or palpitations Respiratory/Chest Respiratory/Chest: Denies dry cough, dyspnea, dyspnea on exertion, productive cough or wheezing Gastrointestinal Gastrointestinal: Denies diarrhea, nausea or vomiting Genitourinary Genitourinary: Denies dysuria or polyuria Musculoskeletal Musculoskeletal: Denies arthralgias, joint stiffness or muscle weakness Integumentary Integumentary: Reports erythema and wounds Neurologic Neurologic: Denies dizziness, memory loss or weakness Psychiatric Psychiatric: Denies homicidal ideation or suicidal ideation Endocrine Endocrinology: Denies polydipsia, polyphagia or polyuria Hematologic/Lymphatic Hematologic/Lymphatic: Denies easy bleeding or easy bruising Allergic/Immunologic Allergic/Immunologic: Denies throat swelling, tongue swelling or urticaria Abby (more content not included)... Normal [facility] Testosterone, Total / Freeon 05-10-2025 TESTOSTER,FREE 0.95 ng/dL Abnormal 0.10-0.85 [facility] Comment on above: Order Comment: N Performed By: #### M 100.1999, M100.3000 #### [facility] [address] [facility] [address] TESTOSTER,TOTAL 32 ng/dL Normal 3-67 [facility] Comment on above: Order Comment: N Performed By: #### M 100.1999, M100.3000 #### [facility] [address] [place], [address] TESTOSTERONE,%F 2.98 High 0.50-2.80 [facility] Comment on above: Order Comment: N Result Comment: Perf ormed at: [facility] [address] [id number] Spectrographer: Blake Fay PhD, Phone: [phone] Performed at: [facility] [address] [id number] Spectrographer: Dez Simms MD, Phone: [phone] Performed By: #### M 100.1999, .2999 #### [facility] [address] [place], [address] Wound Cultureon 05-09-2025 #1 Penicillin is the drug of choice for Beta Streptococcal infections. For Penicillin allergic patients, Erythromycin may be used. Wound Culture Wound Culture Wound Culture Streptococcus group F Amount Growth 2+ Normal [facility] Comment on above: Performed By: #### M 100.2999, #### [facility] [address] [place], [place], [address] CNOVon 05-06-2025 CNOV Office Visit (PODIWS ) MÓNICA DECKER ([id number]) 1950 F NFR Date Time Provider Department 05/06/25 2:40 PM LÓPEZ RANDALL PODIWS During your visit today, we recorded the following information about you: Evelyn Lomas LPN 05/07/2025 7:40 AM Signed AMB ROOMING INTAKE FLOWSHEET DATA Patient presents with: Left Foot - Established Patient, Nail Care Right Foot - Established Patient, Nail Care MILA Sorensen Matthew 05/07/2025 7:40 AM Signed Subjective: Patient presents to clinic c/o painful toenails. They state that the nails are especially painful with shoe gear and pressure. Patient states that nails 1-5 b/l are painful. No other pedal complaints at this time. Patient states no change in medications or medical history since last visit. Objective: Patient presents to clinic ambulating in sneakers Vasc: DP and PT pulses are palpable bilateral. CFT is less than 5 seconds bilateral. Skin temperature is warm to cool proximal to distal bilateral. There is moderate edema or varicosities noted. Ruborous discoloration is noted to b/l feet with dependency. Neuro: Protective sensation is decreased to the foot and toes when tested with the 5.07 SWM bilateral. Vibratory sensation is absent at the hallux IPJ bilateral. The hallux is downgoing bilateral. Derm: Nails 1-5 b/l are painful, discolored-yellow, thick, crumbly, dystrophic and with subungal debris. Skin is of normal turgor, texture and hair growth is absent bilateral. There are no hyperkeratosis, ulcerations, scars, verruca or other lesions noted. Ortho: Muscle strength is 5/5 for all pedal groups tested. Ankle joint DF is decreased with the knee extended with no pain or crepitus noted. 1st MPJ ROM is decreased bilateral. Assessment: (B35.1) Onychomycosis (primary encounter diagnosis) (M79.675) Pain in toe of left foot (M79.674) Pain in toe of right foot Plan: Patient was seen and evaluated. Nails 1-5 bilateral were debrided in length and thickness. Patient is to RTC in 3-4 months. López Randall DPM Allergies As of Date: 05/06/2025 Noted Allergy Reaction LATEX 03/07/2021 16 - Unknown Date Reviewed: 05/06/2025 Reviewed by: Evelyn Lomas LPN - Fully Assessed Reason for Visit: Established Patient [175] Nail Care [Other] Established Patient [175] Nail Care [Other] Primary Visit Diagnosis:Onychomycosi s [B35.1] Other Visit Diagnoses:Pain in toe of left foot [M79.675] Pain in toe of right foot [M79.674] Prescriptions as of 05/07/2025 - donepezil (ARICEPT) 10 mg tablet Take 1 tablet by mouth daily at bedtime. - levothyroxine (LEVOXYL) 150 mcg tablet Take 1 tablet by mouth once daily. Mon-Sat and none on Friday. PLEASE MAIL TO PATIENT'S HOME - PILL FILI - cyanocobalamin (VITAMIN B-12) 1,000 mcg tab Take 1 tablet by mouth once daily. - doxycycline (VIBRA-TABS) 100 mg tablet Take 100 mg by mouth two times a day. 45 days - allopurinol (ZYLOPRIM) 300 mg tablet Take 1 tablet by mouth once daily. For gout. - amLODIPine (NORVASC) 10 mg tablet Take 1 tablet by mouth once daily. PLEASE MAIL TO PATIENT;S HOME - PILL FILI - furosemide (LASIX) 40 mg tablet Take 1 tablet by mouth once daily. PLEASE MAIL TO PATIENT;S HOME - PILL FILI - lisinopril (ZESTRIL) 40 mg tablet Take 1 tablet by mouth once daily. PLEASE MAIL TO PATIENT'S HOME - PILL FILI - pravastatin (PRAVACHOL) 10 mg tablet Take 1 tablet by mouth once daily. PLEASE MAIL TO PATIENT'S HOME - PILL FILI - silver sulfADIAZINE (SILVADENE) 1 % cream - potassium chloride 20 mEq TbER Take 1 tablet by mouth once daily. - acetaminophen (TYLENOL) 500 mg tablet Take 2 tablets by mouth every 8 hours as needed for pain. - polyethylene glycol 3350 17 gram packet Take 1 Packet by mouth once daily. Dissolve dose in 4 - 8 ounces of liquid and take as directed. Problem List As Of Date 05/06/2025 Noted Resolved SANDRA (obstructive sleep apnea) [G47.33] 07/08/2005 Allergic rhinitis [J30.9] 07/08/2005 Essential hypertension, benign [I10] 07/08/2005 NONTOX NODUL GOITER NOS [E04.9] 07/08/2005 09/04/2005 Postsurgical hypothyroidism [E89.0] 09/04/2005 Primary osteoarthritis of both hips [M16.0] 06/20/2015 Primary osteoarthritis of both knees [M17.0] 06/20/2015 Personal history of colonic polyps [Z86.0100] 03/14/2016 Hyperlipidemia, mixed [E78.2] 02/05/2018 Medicare annual wellness visit, subsequent [Z00*08/27/2018 Well adult exam [Z00.00] 08/27/2018 03/25/2020 Elevated hemoglobin A1c [R73.09] 08/27/2018 Screening for colon cancer [Z12.11] 08/27/2018 OAB (overactive bladder) [N32.81] 12/19/2020 Hammer toes of both feet [M20.41, M20.42] 01/24/2021 Foot callus [L84] 01/24/2021 Dystrophic nail [L60.3] 01/24/2021 Acute idiopathic gout involving toe of right fo*01/24/2021 Obesity, Class II, BMI 35-39.9 [E66.812] 02/19/2021 Advance directive discussed with patient [Z71 (more content not included)... Normal [facility] Gram Stainon 05-05-2025 GS Gram Stain No organisms seen No Epithelial cells No Gram negative diplococci Normal [facility] Comment on above: Performed By: #### M 100.3000, M100.1999 #### [facility] [address] [place], [address] Anion gap in Serum or Plasma Ordered By: Shayla Green on 05-04-2025 Anion gap [Moles/Vol] 14 mmol/L 5-15 [facility] BUN/creatinine ratioOrdered By: Shayla Green on 05-04-2025 Urea nitrogen/Creatinine [Mass ratio] 24.7 mg/mg High 10-20 [facility] Bilirubin, totalOrdered By: Shayla Green on 05-04-2025 Bilirubin [Mass/Vol] 0.57 mg/dL 0.00-1.30 [facility] Carbon dioxide, total [Moles /volume] in Central venous bloodOrdered By: Shayla Green on 05-04-2025 CO2 [Moles/Vol] 22.7 mmol/L 21.0-32.0 [facility] Chloride assayOrdered By: Cody Green on 05-04-2025 Chloride [Moles/Vol] 105 mmol/L 98-108 [facility] Comprehensive Metabolic Prof ilon 05-04-2025 Albumin [Mass/Vol] 4.2 g/dL Normal 3.4-4.8 [facility] Comment on above: Performed By: #### M 100.2000, M100.3000 #### [facility] [address] [place], [address] Albumin/Globulin [Mass ratio] 1.8 {ratio} Normal 0.9-2.4 [facility] Comment on above: Performed By: #### M 100.2000, M100.3000 #### [facility] [address] [place], [address] ALK PHOS 82 U/L Normal 35-104 [facility] Comment on above: Performed By: #### M , 00.3000 #### [facility] [address] [place], [address] ALT [Catalytic activity/Vol] 22 U/L Normal <=34 [facility] Comment on above: Performed By: #### M , .3000 #### [facility] [address] [place], [address] AST [Catalytic activity/Vol] 21 U/L Normal <=31 [facility] Comment on above: Performed By: #### M , 00.3000 #### [facility] [address] [place], [address] Bilirubin [Mass/Vol] 0.57 mg/dL Normal 0.00-1.30 [facility] Comment on above: Performed By: #### M , .3000 #### [facility] [address] [place], [address] BUN/CRE 24.7 RATIO High 10-20 [facility] Comment on above: Performed By: #### M , M100.3000 #### [facility] [address] [place], [address] Calcium [Mass/Vol] 9.6 mg/dL Normal 7.6-11.0 [facility] Comment on above: Performed By: #### M , M100.3000 #### [facility] [address] [place], [address] Chloride [Moles/Vol] 105 mmol/L Normal 98-108 [facility] Comment on above: Performed By: #### M , M100.3000 #### [facility] [address] [place], [address] CO2 [Moles/Vol] 22.7 mmol/L Normal 21.0-32.0 [facility] Comment on above: Performed By: #### M , .2999 #### [facility] [address] [place], [address] Creatinine [Mass/Vol] 0.92 mg/dL Normal 0.70-1.20 [facility] Comment on above: Performed By: #### M , .3000 #### [facility] [address] [place], [address] GAP 14 Normal 5-15 [facility] Comment on above: Performed By: #### M , .3000 #### [facility] [address] [place], [address] GFR/1.73 sq M.predicted among non-blacks MDRD (S/P/Bld) [Vol rate/Area] 65 mL/min/{1.73_m2} Normal >60 [facility] Comment on above: Result Comment: mL/m in/1.73m2 CKD-EPI Creatinine Equation (2020) Performed By: #### M , .3000 #### [facility] [address] [place], [address] Globulin (S) [Mass/Vol] 2.4 g/dL Normal 2.2-4.2 [facility] Comment on above: Performed By: #### M , .3000 #### [facility] [address] [place], [address] Glucose [Mass/Vol] 142 mg/dL High 70-99 [facility] Comment on above: Performed By: #### M , .3000 #### [facility] [address] [place], [address] Potassium [Moles/Vol] 3.7 mmol/L Normal 3.3-5.1 [facility] Comment on above: Performed By: #### M .1999, M100.3000 #### [facility] [address] [place], [address] Sodium [Moles/Vol] 142 mmol/L Normal 133-145 [facility] Comment on above: Performed By: #### M , M100.3000 #### [facility] [address] [place], [address] T PROT 6.6 g/dL Normal 5.9-8.4 [facility] Comment on above: Performed By: #### M , M100.3000 #### [facility] [address] [place], [address] Urea nitrogen [Mass/Vol] 23 mg/dL High 4-19 [facility] Comment on above: Performed By: #### M , M100.3000 #### [facility] [address] [place], [address] Estradiolon 05-04-2025 ESTRADIOL < 5.0 Normal [facility] Comment on above: Result Comment: FEMA LES ADULT FEMALE: Premenopausal: 15-350 pg/mL(E2 levels vary widely through the menstrual cycle) Postmenopausal: <10 pg/mL ROBIN STAGES MEAN AGE REFERENCE RANGES Stage I(>14 days and prepubertal) 7.1 years Undetectable-20 pg/mLL Stage II 10.5 years Undetectable-24 pg/mL Stage III 11.6 years Undetectable-60 pg/mL Stage IV 12.3 years 15-85 pg/mL Stage V 14.5 years 15-350 pg/mL Puberty onset (transition from Robin stage I to Robin stage II) occurs for girls at a median age of 10.5 (/- 2) years. There is evidence that it may occur up to 1 year earlier in obese girls and in girls. Progression through Robin stages is variable. Robin stage V (adult) should be reached by age 18. Performed By: #### M 100.2000, M100.3000 #### [facility] [address] [place], [address] Free testosterone percentage Ordered By: Shayla Green on 05-04-2025 Testosterone Free/Testosterone.total [Mass fraction] 2.98 % High 0.50-2.80 [facility] Comment on above: Performed at: [facility] [employer] [address] [id number] Director: Blake Fay PhD, Phone: [phone] at: - [facility] [id number] Director: Dez Simms MD, Phone: [phone] Glomerular filtration rate ( GFR) estimation/1.73 sq m using serum, plasma, or whole bOrdered By: Shayla Green on 05-04-2025 GFR/1.73 sq M.predicted among non-blacks MDRD (S/P/Bld) [Vol rate/Area] 65 mL/min/{1.73_m2} >60 [facility] Comment on above: mL/min/1.73m2 CKD-EP I Creatinine Equation (2020) Gram stainOrdered By: Melissa Green on 05-04-2025 Microscopic observation Gram stain Nom (Unsp spec) [facility] - Chemistry and C hemistry - challengeOrdered By: Shayla Green on 05-04-2025 AST [Catalytic activity/Vol] 21 U/L <32 [facility] Wheel Presser Office Visit Reporton 05-04-2025 Wheel Presser Office Visit Report [facility] [address], [address] [place] [address] OFFICE VISIT Date of Service: 05/04/25 MR#: [id number] Acct: [id number] Name: MÓNICA DECKER Rep #: [id number] : 1950 Provider: Dr. Shayla Light DO Age/Sex: 75/F [place] [facility] [place] Status: Signed Intake Vital Signs 04/21/25 15:00 05/04/25 09:41 05/04/25 09:47 Height 5 ft 5 ft 5 ft Weight: 162 lb 2 oz BMI 31.6 BP 117/70 Intake Visit Reasons: Introitus hidradenitis, discuss plan 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 Is patient in pain?: Yes (vaginal soreness) Allergies Latex, Natural Rubber Allergy (Mild, Verified 05/04/25 09:41) Rash Medications ???Medication ???Instructions ???Recorded ???Confirmed ???Type levothyroxine 137 mcg tablet 150 mcg PO DAILY thyroid 01/06/20 05/04/25 History lisinopril 10 mg tablet 40 mg PO DAILY blood pressure 12/2505/04/25 History amlodipine 10 mg tablet (Norvasc) 10 mg PO DAILY 08/06/24 05/04/25 History furosemide 40 mg tablet (Lasix) 40 mg PO DAILY 08/06/24 05/04/25 H istory pravastatin 10 mg tablet 10 mg PO QHS 08/06/24 05/04/25 His tory allopurinol 300 mg tablet 300 mg PO QDAY 12/10/24 05/04/25 H istory mecobalamin (vitamin B12) 1,000 1,000 mcg PO QDAY 12/10/24 5 History mcg chewable tablet potassium chloride 20 mEq 20 meq PO QDAY 12/10/24 05/04/25 H istory tablet,extended release donepezil 5 mg tablet 5 mg PO DAILY 01/04/25 05/04/25 Hi story gabapentin 300 mg capsule 300 mg PO BID PRN pain (scale 07/0 07/2105/04/25 Rx score 4-6) #30 caps spironolactone 100 mg tablet 100 mg PO QDAY #30 tabs 05/04/25 0 05/04/25 Rx Is last menstrual period known: No Post menopausal: Yes Patient : No : No PFS Medical History Post-menopausal Depression Anxiety Dementia Open wound Arthritis Non-smoker Shortness of breath on exertion Urinary incontinence Gout Hypothyroid High cholesterol HTN (hypertension) Surgical History S/P D C (status post dilation and curettage) Status post amputation of finger S/P bladder repair History of left hip replacement H/O thyroidectomy History of right hip replacement Family History Father Colon cancer Mother Hypertension Social History Smoking Status: Never smoker additional social history: Single HPI Introitus hidradenitis, discuss plan Details: MÓNICA DECKER is a 75 year old who presents for further discussion about her hidradenitis suppurativa outbreak. She was seen by Dr. Eugene who has recently started her on cipro. She states that the combination of the cipro plush the doxy took the swelling down but now that she has completed the cipro, the sinus tracks have enlarged and she now has a very painful swollen right labia and left carol-rectal lesion. She has a silver dressing on the groin area. She staes that she was told to wash vigorously with dial soap twice a day. History 0 Elective abortions Hx Para Spontaneous abortions Hx # Term Pregnancies Ectopic pregnancies Hx # Pregnancies Multiple births # of living children ROS Const ROS Unobtainable: All systems reviewed are unremarkable except as noted in H Resp Resp: Reports system reviewed and no additional complaints, except as documented; Denies cough GI GI: Reports as per HPI Psych Psych: Reports system reviewed and no additional complaints, except as documented Exam Const General: cooperative, healthy appearing, comfortable and no acute distress Resp Effort Inspection: normal respiratory effort Other: diffusely tender and edematous lesions on both sides of groin. The right labia is enlarged and with gentle manipulation, purulent material expels from multiple sites. The left carol rectal area also has an enlarged HS track that expels purulent material with gentle manipulation. Skin General: no rashes or lesions noted Psych Appearance: grossly normal Speech and Movement: speech and movement normal Office Procedures I D Provider Documentation Provider Documentation: The right labia was cleansed with betadine first then injected with 2 cc of1% lidocaine. A small stab incision was made with an 11 blade at the most dependent area of the labia where infection and purulent material was suspected. a moderate amount of purulent material escaped the area. The incision was probed with a sterile eliot clamp. culture was collected. Silver nitrite and pressure was applied to the wound without success of hemostasis. A figure of 8 4-0 monocryl was used to stop the bleeding. Al (more content not included)... Normal [facility] Potassium measurement (mass/ volume)Ordered By: Shayla Green on 05-04-2025 Potassium (Unsp spec) [Mass/Vol] 3.7 mmol/L 3.3-5.1 [facility] Serum creatinine measurement (mass/volume)Ordered By: Shayla Green on 05-04-2025 Creatinine [Mass/Vol] 0.92 mg/dL 0.70-1.20 [facility] Serum globulin measurementOr dered By: Shayla Green on 05-04-2025 Globulin (S) [Mass/Vol] 2.4 g/dL 2.2-4.2 [facility] Serum glucose measurement (m ass/volume)Ordered By: Shayla Green on 05-04-2025 Glucose [Mass/Vol] 142 mg/dL High 70-99 [facility] Serum or plasma alanine choi otransferase (ALT) measurementOrdered By: Shayla Green on 05-04-2025 ALT [Catalytic activity/Vol] 22 U/L <35 [facility] Serum or plasma albumin edmond urement (mass/volume)Ordered By: Shayla Green on 05-04-2025 Albumin [Mass/Vol] 4.2 g/dL 3.4-4.8 [facility] Serum or plasma albumin/glob ulin mass ratioOrdered By: Shayla Green on 05-04-2025 Albumin/Globulin [Mass ratio] 1.8 {ratio} 0.9-2.4 [facility] Serum or plasma alkaline armando sphatase measurementOrdered By: Shayla Green on 05-04-2025 ALP [Catalytic activity/Vol] 82 U/L 35-104 [facility] Serum or plasma calcium edmond urement (mass/volume)Ordered By: Shayla Green on 05-04-2025 Calcium [Mass/Vol] 9.6 mg/dL 7.6-11.0 [facility] Serum or plasma estradiol me asurement after follitropin dose (mass/volume)Ordered By: Shayla Green on 05-04-2025 E2 post dose follitropin [Mass/Vol] < 5.0 pg/mL [facility] Comment on above: FEMALES ADULT FEMALE : Premenopausal: 15-350 pg/mL(E2 levels vary widely through the menstrual cycle) Postmenopausal: <10 pg/mL ROBIN STAGES MEAN AGE REFERENCE RANGES Stage I(>14 days and prepubertal) 7.1 years Undetectable-20 pg/mLL Stage II 10.5 years Undetectable-24 pg/mL Stage III 11.6 years Undetectable-60 pg/mL Stage IV 12.3 years 15-85 pg/mL Stage V 14.5 years 15-350 pg/mL Puberty onset (transition from Robin stage I to Robin stage II) occurs for girls at a median age of 10.5 (/- 2) years. There is evidence that it may occur up to 1 year earlier in obese girls and in girls.Progression through Robin stages is variable. Robin stage V (adult) should be reached by age 18. Serum or plasma free testost erone measurement (mass/volume)Ordered By: Shayla Green on 05-04-2025 Testosterone Free [Mass/Vol] 0.95 ng/dL High 0.10-0.85 [facility] Serum or plasma urea nitroge n measurement (mass/volume)Ordered By: Shayla Green on 05-04-2025 Urea nitrogen [Mass/Vol] 23 mg/dL High 4-19 [facility] Sodium levelOrdered By: Hannah Green on 05-04-2025 Sodium [Moles/Vol] 142 mmol/L 133-145 [facility] Testosterone, totalOrdered B y: Shayla Green on 05-04-2025 Testosterone [Mass/Vol] 32 ng/dL 3-67 [facility] Total proteinOrdered By: Angelica Green on 05-04-2025 Protein [Mass/Vol] 6.6 g/dL 5.9-8.4 [facility] Anion gap in Serum or Plasma Ordered By: Julia Rankin on 04-26-2025 Anion gap [Moles/Vol] 14 mmol/L 5-15 [facility] BUN/creatinine ratioOrdered By: Julia Rankin on 04-26-2025 Urea nitrogen/Creatinine [Mass ratio] 30.1 mg/mg High 10-20 [facility] Basic Metabolic Profile (BMP )on 04-26-2025 BUN/CRE 30.1 RATIO High 10-20 [facility] Comment on above: Performed By: #### P SUIV #### [facility] [address] [place], [address] Calcium [Mass/Vol] 9.4 mg/dL Normal 7.6-11.0 [facility] Comment on above: Performed By: #### P SUIV #### [facility] [address] [place], [address] Chloride [Moles/Vol] 99 mmol/L Normal 98-108 [facility] Comment on above: Performed By: #### P SUIV #### [facility] [address] [place], [address] CO2 [Moles/Vol] 20.8 mmol/L Low 21.0-32.0 [facility] Comment on above: Performed By: #### P SUIV #### [facility] [address] [place], [address] Creatinine [Mass/Vol] 0.87 mg/dL Normal 0.70-1.20 [facility] Comment on above: Performed By: #### P SUIV #### [facility] [address] [place], [address] GAP 14 Normal 5-15 [facility] Comment on above: Performed By: #### P SUIV #### [facility] [address] [place], [address] GFR/1.73 sq M.predicted among non-blacks MDRD (S/P/Bld) [Vol rate/Area] 69 mL/min/{1.73_m2} Normal >60 [facility] Comment on above: Result Comment: mL/m in/1.73m2 CKD-EPI Creatinine Equation (2020) Performed By: #### P SUIV #### [facility] [address] [place], [address] Glucose [Mass/Vol] 84 mg/dL Normal 70-99 [facility] Comment on above: Performed By: #### P SUIV #### [facility] [address] [place], [address] Potassium [Moles/Vol] 4.6 mmol/L Normal 3.3-5.1 [facility] Comment on above: Performed By: #### P SUIV #### [facility] [address] [place], [address] Sodium [Moles/Vol] 134 mmol/L Normal 133-145 [facility] Comment on above: Performed By: #### P SUIV #### [facility] [address] [place], [address] Urea nitrogen [Mass/Vol] 26 mg/dL High 4-19 [facility] Comment on above: Performed By: #### P SUIV #### [facility] [address] [place], [address] Carbon dioxide, total [Moles /volume] in Central venous bloodOrdered By: Julia Rankin on 04-26-2025 CO2 [Moles/Vol] 20.8 mmol/L Low 21.0-32.0 [facility] Chloride assayOrdered By: Donet Rankin on 04-26-2025 Chloride [Moles/Vol] 99 mmol/L 98-108 [facility] Glomerular filtration rate ( GFR) estimation/1.73 sq m using serum, plasma, or whole bOrdered By: Julia Rankin on 04-26-2025 GFR/1.73 sq M.predicted among non-blacks MDRD (S/P/Bld) [Vol rate/Area] 69 mL/min/{1.73_m2} >60 [facility] Comment on above: mL/min/1.73m2 CKD-EP I Creatinine Equation (2020) Potassium measurement (mass/ volume)Ordered By: Julia Rankin on 04-26-2025 Potassium (Unsp spec) [Mass/Vol] 4.6 mmol/L 3.3-5.1 [facility] Serum creatinine measurement (mass/volume)Ordered By: Juliasmione Raknin on 04-26-2025 Creatinine [Mass/Vol] 0.87 mg/dL 0.70-1.20 [facility] Serum glucose measurement (m ass/volume)Ordered By: Juliasimone Rankin on 04-26-2025 Glucose [Mass/Vol] 84 mg/dL 70-99 [facility] Serum or plasma calcium edmond urement (mass/volume)Ordered By: Juliasimone Rankin on 04-26-2025 Calcium [Mass/Vol] 9.4 mg/dL 7.6-11.0 [facility] Serum or plasma urea nitroge n measurement (mass/volume)Ordered By: Julia Rankin on 04-26-2025 Urea nitrogen [Mass/Vol] 26 mg/dL High 4-19 [facility] Sodium levelOrdered By: Rachel Rankin on 04-26-2025 Sodium [Moles/Vol] 134 mmol/L 133-145 [facility] TSH DL <= 0.005 mIU/L QnOrde red By: Kalani Crouch on 04-26-2025 TSH Qn 0.405 uIU/mL 0.300-4.200 [facility] Thyroid Stim Hormone (TSH)on 04-26-2025 TSH 0.405 uIU/mL Normal 0.300-4.200 [facility] Comment on above: Performed By: #### L [id number] #### [facility] [address] [place], [place], [id number] Wound Cultureon 04-24-2025 Wound Culture Wound Culture Escherichia coli Amount Growth Very Rare Proteus mirabilis Proteus mirabilis Escherichia coli: REACTION Ampicillin Islt ESTEFANÍA >=32 R Ampicillin+Sulbac Islt ESTEFANÍA 16 Cefepime Islt ESTEFANÍA <=0.12 S cefTRIAXone Islt ESTEFANÍA 32 R Ciprofloxacin Islt ESTEFANÍA <=0.06 S B-Lactamase Extended Susc Islt NEG Gentamicin Islt ESTEFANÍA <=1 S levoFLOXacin Islt ESTEFANÍA <=0.12 S Meropenem Islt ESTEFANÍA <=0.25 S Pip+Tazo Islt ESTEFANÍA <=4 S TMP SMX Islt ESTEFANÍA >=320 R Proteus mirabilis: REACTION Ampicillin Islt ESTEFANÍA >=32 R Ampicillin+Sulbac Islt ESTEFANÍA >=32 Cefepime Islt ESTEFANÍA 0.25 S cefTRIAXone Islt ESTEFANÍA 2 I Ciprofloxacin Islt ESTEFANÍA <=0.06 S Gentamicin Islt ESTEFANÍA <=1 S levoFLOXacin Islt ESTEFANÍA <=0.12 S Meropenem Islt ESTEFANÍA <=0.25 S Pip+Tazo Islt ESTEFANÍA <=4 S TMP SMX Islt ESTEFANÍA <=20 S Normal [facility] Comment on above: Performed By: #### M 100.2000, M100.3000 #### [facility] [address] [place], [place], [address] Gram Stainon 04-22-2025 GS Gram Stain 1+ White Blood Cells Rare Gram positive cocci No Gram negative diplococci Normal [facility] Comment on above: Performed By: #### M 100.1999, M100.3000 #### [facility] [address] [place], [address] Gram stainOrdered By: Breonna Lui on 04-21-2025 Microscopic observation Gram stain Nom (Unsp spec) [facility] Wheel Presser Office Visit Reporton 04-21-2025 Wheel Presser Office Visit Report [facility] [address], [address] [place] [address] OFFICE VISIT Date of Service: 04/21/25 MR#: [id number] Acct: [id number] Name: MÓNICA DECKER Rep #: [id number] : 1950 Provider: VLAD sewell Age/Sex: 75/F [place] [facility] [place]: Signed Intake Vital Signs 01/31/25 09:25 04/21/25 14:53 04/21/25 15:00 Height 5 ft 5 ft 5 ft Weight: 158 lb 8 oz BMI 30.9 BP 134/72 H Intake Visit Reasons: Possible Bartholin Cyst *[facility] referral Chief Complaint: Bartholin cyst 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 Is patient in pain?: No Allergies Latex, Natural Rubber Allergy (Mild, Verified 04/21/25 14:52) Rash Medications ???Medication ???Instructions ???Recorded ???Confirmed ???Type levothyroxine 137 mcg tablet 150 mcg PO DAILY thyroid 01/06/20 04/21/25 History lisinopril 10 mg tablet 40 mg PO DAILY blood pressure 12/2504/21/25 History amlodipine 10 mg tablet (Norvasc) 10 mg PO DAILY 08/06/24 04/21/25 History furosemide 40 mg tablet (Lasix) 40 mg PO DAILY 08/06/24 04/21/25 H istory pravastatin 10 mg tablet 10 mg PO QHS 08/06/24 04/21/25 His tory allopurinol 300 mg tablet 300 mg PO QDAY 12/10/24 04/21/25 H istory mecobalamin (vitamin B12) 1,000 1,000 mcg PO QDAY 12/10/24 5 History mcg chewable tablet potassium chloride 20 mEq 20 meq PO QDAY 12/10/24 04/21/25 H istory tablet,extended release donepezil 5 mg tablet 5 mg PO DAILY 01/04/25 04/21/25 Hi story doxycycline hyclate 100 mg tablet 100 mg PO BID 01/04/25 04/21/25 H istory sulfamethoxazole 800 1 tab PO BID 10 days #20 tabs 03/2804/21/25 Rx mg-trimethoprim 160 mg tablet Is last menstrual period known: No Post menopausal: Yes Patient : No : No PFS Medical History Post-menopausal Depression Anxiety Dementia Open wound Arthritis Non-smoker Shortness of breath on exertion Urinary incontinence Gout Hypothyroid High cholesterol HTN (hypertension) Surgical History S/P D C (status post dilation and curettage) Status post amputation of finger S/P bladder repair History of left hip replacement H/O thyroidectomy History of right hip replacement Family History Father Colon cancer Mother Hypertension Social History Smoking Status: Never smoker additional social history: Single HPI Possible Bartholin Cyst *[facility] referral Details: MÓNICA DECKER is a 75 year old who presents for painful left labial sore. Is currently seeing wound care, has open bilateral groin hidradenitis that she is packing and is also on doxycycline for. Dr Eugene sent her to us to evaluate for a complaint of lump in vagina. She states there has been some drainage from area and she has pain there and also cleft of coccyx. History 0 Elective abortions Hx Para Spontaneous abortions Hx # Term Pregnancies Ectopic pregnancies Hx # Pregnancies Multiple births # of living children ROS Const Constitutional: Reports system reviewed and no additional complaints, except as documented Eyes Eyes: Reports system reviewed and no additional complaints, except as documented GI GI: Denies abdominal pain or change in bowel habits : Reports as per HPI Exam Const General: cooperative and no acute distress Nutritional Appearance: well nourished Orientation: oriented x3 Resp Effort Inspection: normal respiratory effort Other: significant edema 2X3 cm soft mass of right vulva, some mucopurulent drainage. Cellulitis of inner right labia noted. Tender to touch. Small abcess upper right labia that is draining. Soft sinus tract X 2 along outer labia with drainage upon compression. Culture collected. No masses or lesions are noted upon exam of coccyx. Coding Level of Care Code Off vis,est,level 3 Diagnoses Vulvar abscess N76.4 Vulval cellulitis N76.2 Assessment and Plan Assessment and Plan (1) Vulvar abscess: Status: Acute (2) Vulval cellulitis: Status: Acute Orders: Orders Basic Metabolic Profile (BMP) 04/25/25 Julia Rankin SWITCH CREW SUPERVISOR, SWITCH CREW SUPERVISOR-C I10 - Essential (primary) hypertension Culture, Wound Today Dr. Breonna Lui MD N76.4 - Abscess of vulva Medications: New sulfamethoxazole-trime thoprim 800-160 mg 1 TAB PO BID 10 days 20 tabs 0RF Julia Rankin SWITCH CREW SUPERVISOR, SWITCH CREW SUPERVISOR-C Plan Reviewed keeping area clean and dry. Warm compresses and apply light pressure to encourage drainage. Phone call to pharmacy and will proceed with bactrim to take along with doxycycline. Will do BMP on 04/25 RTO dependent on sym (more content not included)... Normal [facility] Breast imaging reportOrdered By: Alli Ceja on 04-19-[address] [facility] Services [address] [place], [place] [id number] SCRN MAMM (CAD)W/BONIFACIO BILAT MR#: [id number] Acct: [id number] Name: MÓNICA DECKER Rep #: [id number] : 1950 F 75 From: Davi Ceja MD PCP: Dr. Mateo Marmolejo MD Status: [facility] CLI Study:SCRN MAMM (CAD)W/BONIFACIO BILAT Date of Exa m: 04/18/25 Exam# [id number] Ordering Dr: Roseann Eugene MD EXAM: SCRN MAMM (CAD)W/BONIFACIO BILAT DATE: 04/18/2025 CLINICAL HISTORY: F, Age 75 y/o , SCREENING BILATERAL MAMMOGRAM No family history. BREAST CANCER RISK ASSESSMENT: Not assessed. TECHNIQUE: SCRN MAMM (CAD)W/BONIFACIO BILAT COMPARISON: Prior exam(s) dated April 18, 2021.. FINDINGS: TISSUE DENSITY: The breast tissue is almost entirely fatty. Bilateral Breast Mammographic Findings: No significant masses, calcifications or other abnormalities are identified. No suspicious masses, areas of developing architectural distortion, or suspicious calcifications. There has been no significant interval change. BI/SCRN MAMM (CAD)W/BONIFACIO BILAT IMPRESSION: Stable examination. OVERALL FINAL ASSESSMENT BI-RADS 1: NEGATIVE. RECOMMEND ANNUAL MAMMOGRAPHIC SCREENING. RECOMMENDATION: Routine annual follow-up in 1 Year A letter with findings and recommendations will be mailed to the patient. Reading Location: [facility] CC: Dr. Mateo Marmolejo MD; Dr. Kasi Eugene MD ~ Credit Control Assistant: Signed [facility] SCRN MAMM (CAD)W/BONIFACIO BILATo n 04-18-2025 SCRN MAMM (CAD)W/BONIFACIO BILAT [facility] [address] [place], [place] [id number] SCRN MAMM (CAD)W/BONIFACIO BILAT MR#: [id number] Acct: [id number] Name: MÓNICA DECKER Rep #: [id number] : 1950 F 75 From: Alli velasco MD PCP: Dr. Mateo Marmolejo MD Status: REG CLI Study: SCRN MAMM (CAD)W/BONIFACIO BILAT Date of Exam: 03/28 01/18 Exam# [id number] Ordering Dr: Kasi Eugene MD EXAM: SCRN MAMM (CAD)W/BONIFACIO BILAT DATE: 04/18/2025 CLINICAL HISTORY: F, Age 75 y/o , SCREENING BILATERAL MAMMOGRAM No family history. BREAST CANCER RISK ASSESSMENT: Not assessed. TECHNIQUE: SCRN MAMM (CAD)W/BONIFACIO BILAT COMPARISON: Prior exam(s) dated April 18, 2021.. FINDINGS: TISSUE DENSITY: The breast tissue is almost entirely fatty. Bilateral Breast Mammographic Findings: No significant masses, calcifications or other abnormalities are identified. No suspicious masses, areas of developing architectural distortion, or suspicious calcifications. There has been no significant interval change. BI/SCRN MAMM (CAD)W/BONIFACIO BILAT IMPRESSION: Stable examination. OVERALL FINAL ASSESSMENT BI-RADS 1: NEGATIVE. RECOMMEND ANNUAL MAMMOGRAPHIC SCREENING. RECOMMENDATION: Routine annual follow-up in 1 Year A letter with findings and recommendations will be mailed to the patient. Reading Location: [id number] CC: Dr. Mateo Marmolejo MD; Dr. Kais Eugene MD Credit Control Assistant: Signed [facility] 04-15-2025 CNPN Telephone (FAMReenaWS) MÓNICA DECKER ([id number]) 1950 F NFR Date Time Provider Department 04/15/25 MATEO MARMOLEJO During your visit today, we recorded the following information about you: Zulma Burgos, ABIDA 04/15/2025 4:42 PM Signed [place] with [facility] calls to ask if patient is being prescribed doxycycline by [facility]. No current record of patient being on doxycycline. Last noted was from 11/2024 prescribed for groin wounds. Vernell reports that they are seeing patient for wound care to the groin and not sure who is ordering it. Patient gets meds through [facility]. Recommended Vernell contact [facility] to see who is sending them the orders. Wound care orders are from Dr. Eugene. Nothing further needed. Closing encounter. Zulma Burgos RN Allergies As of Date: 04/15/2025 Noted Allergy Reaction LATEX 03/07/2021 16 - Unknown Date Reviewed: 04/06/2025 Reviewed by: Leah Sarabia MA - Fully Assessed Reason for Visit: Patient Question [9758] Prescriptions as of 04/15/2025 - donepezil (ARICEPT) 10 mg tablet Take 1 tablet by mouth daily at bedtime. - levothyroxine (LEVOXYL) 150 mcg tablet Take 1 tablet by mouth once daily. Mon-Fri and none on Friday. PLEASE MAIL TO PATIENT'S HOME - PILL FILI - cyanocobalamin (VITAMIN B-12) 1,000 mcg tab Take 1 tablet by mouth once daily. - doxycycline (VIBRA-TABS) 100 mg tablet Take 100 mg by mouth two times a day. 45 days - allopurinol (ZYLOPRIM) 300 mg tablet Take 1 tablet by mouth once daily. For gout. - amLODIPine (NORVASC) 10 mg tablet Take 1 tablet by mouth once daily. PLEASE MAIL TO PATIENT;S HOME - PILL FILI - furosemide (LASIX) 40 mg tablet Take 1 tablet by mouth once daily. PLEASE MAIL TO PATIENT;S HOME - PILL FILI - lisinopril (ZESTRIL) 40 mg tablet Take 1 tablet by mouth once daily. PLEASE MAIL TO PATIENT'S HOME - PILL FILI - pravastatin (PRAVACHOL) 10 mg tablet Take 1 tablet by mouth once daily. PLEASE MAIL TO PATIENT'S HOME - PILL FILI - silver sulfADIAZINE (SILVADENE) 1 % cream - potassium chloride 20 mEq TbER Take 1 tablet by mouth once daily. - acetaminophen (TYLENOL) 500 mg tablet Take 2 tablets by mouth every 8 hours as needed for pain. - polyethylene glycol 3350 17 gram packet Take 1 Packet by mouth once daily. Dissolve dose in 4 - 8 ounces of liquid and take as directed. Problem List As Of Date 04/15/2025 Noted Resolved SANDRA (obstructive sleep apnea) [G47.33] 07/08/2005 Allergic rhinitis [J30.9] 07/08/2005 Essential hypertension, benign [I10] 07/08/2005 NONTOX NODUL GOITER NOS [E04.9] 07/08/2005 09/04/2005 Postsurgical hypothyroidism [E89.0] 09/04/2005 Primary osteoarthritis of both hips [M16.0] 06/20/2015 Primary osteoarthritis of both knees [M17.0] 06/20/2015 Personal history of colonic polyps [Z86.0100] 03/14/2016 Hyperlipidemia, mixed [E78.2] 02/05/2018 Medicare annual wellness visit, subsequent [Z00*08/27/2018 Well adult exam [Z00.00] 08/27/2018 03/25/2020 Elevated hemoglobin A1c [R73.09] 08/27/2018 Screening for colon cancer [Z12.11] 08/27/2018 OAB (overactive bladder) [N32.81] 12/19/2020 Hammer toes of both feet [M20.41, M20.42] 01/24/2021 Foot callus [L84] 01/24/2021 Dystrophic nail [L60.3] 01/24/2021 Acute idiopathic gout involving toe of right fo*01/24/2021 Obesity, Class II, BMI 35-39.9 [E66.812] 02/19/2021 Advance directive discussed with patient [Z71.8*02/14/2022 Dermatitis [L30.9] 01/09/2023 Bilateral hip pain [M25.551, M25.552] 06/05/2023 S/P total right hip arthroplasty [Z96.641] 06/26/2023 S/P total left hip arthroplasty [Z96.642] 04/22/2024 Medication management [Z79.899] 07/23/2024 Low vitamin B12 level [R79.89] 07/26/2024 Urinary incontinence [R32] 07/28/2024 Ambulatory dysfunction [R26.2] 08/31/2024 Encounter Status:Closed by ZULMA BURGOS on 04/15/[address] [facility] Wound Cultureon 04-15-2025 WC GROIN ULCER Pending Proteus mirabilis Amount Growth Very Rare Proteus mirabilis: REACTION Ampicillin Islt ESTEFANÍA >=32 Ampicillin+Sulbac Islt ESTEFANÍA >=32 R Cefepime Islt ESTEFANÍA 1 S cefTRIAXone Islt ESTEFANÍA 2 I Ciprofloxacin Islt ESTEFANÍA <=0.06 S Gentamicin Islt ESTEFANÍA <=1 S levoFLOXacin Islt ESTEFANÍA <=0.12 S Meropenem Islt ESTEFANÍA <=0.25 S Pip+Tazo Islt ESTEFANÍA <=4 S TMP SMX Islt ESTEFANÍA <=20 S Normal [facility] Comment on above: Performed By: #### P SUIV #### [facility] [address] [place], [address] Culture, Anaerobic Any Sourc reyna 04-14-2025 CUAN GROIN ULCER No anaerobic bacteria isolated. Normal [facility] Comment on above: Performed By: #### M 100.1999, M100.3000 #### [facility] [address] [place], [address] Surgical pathology reportOrd ered By: Rachel Arreaga on 04-14-2025 Surgical pathology study [facility] Gram Stainon 04-12-2025 GS GROIN ULCER Gram Stain Rare White Blood Cells No organisms seen Normal [facility] Comment on above: Performed By: #### M 100.1999, M100.3000 #### [facility] [address] [facility] [place], [address] Wound Ctr History AND Physi calon 04-12-2025 Wound Ctr History & Physical [facility] [address] [place] [address] H P Exam - Wound Care 04/12/25 1009 MR#: [id number] Acct: [id number] Name: MÓNICA DECKER Rep #: [id number] : 1950 75 From: Kasi Eugene MD PCP: Dr. Mateo Marmolejo MD Status:REG RCR Location: History of Present Illness Date of Service: 04/11/25 Chief Complaint: Nonhealing ulcers of groin area History of Wound: HPI per nursing Mónica is a pleasant 74 yo woman that presents to the wound healing center for evaluation and treatment recommendations for nonhealing ulcers that are in her bilateral groin folds that have been present and waxed and waned in severity for 12 years. She reports that she has also had urinary incontinence that started around that time as well and she has been wearing disposable incontinence pads daily since then. She has never been on any medication for urinary incontinence and has a urology appointment scheduled for the end of this month but does not know who she is seeing. She reports that the areas bleed and drain pratt fluid intermittently. At some points there have been 5 spots of blood and currently there is about 2. She is using Zinc oxide to the areas a few times/day. She uses rubbing alcohol on her areas after each restroom visit. She has been advised to use topical antibiotic ointment by her PCP but it wild. She is otherwise uncomplicated and does not have history of diabetes. She denies fever, chills, erythema, increased drainage and odor. She has had some cognitive changes over the last 6 months post her hip replacement surgery which may be due to dementia or anesthesia reaction. Her brother Gerson accompanies her today and helps somewhat with the history. HPI from encounter, 11 April 2025: The patient is a 75-year-old female presenting with hidradenitis suppurativa and a possible Bartholin cyst. The hidradenitis suppurativa has been persistent, with lesions that fluctuate in size but do not resolve completely. The patient reports minimal drainage from the lesions, and there is concern about potential infection. 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 The patient has been using Kotex pads due to bladder issues, which may have exacerbated the condition. The patient also reports a painful swelling in the right labium majora, suspected to be a Bartholin cyst. She has not previously consulted an WELDER APPRENTICE GAS for this issue. The patient has experienced significant unintentional weight loss, losing 70 pounds over the last few months, which is concerning. She has not yet undergone a mammogram, although it is planned, and she had a colonoscopy three years ago, with a recommendation for a repeat in five years. Attestation: Documentation on this patient encounter was supported using ambient scribe technology/ voice AI technology. The patient consented to recording for the purpose of documenting the encounter. Provider reviewed content of the generated note prior to signature. [facility] Medical History Post-menopausal Depression Anxiety Dementia Open wound Arthritis Non-smoker Shortness of breath on exertion Urinary incontinence Gout Hypothyroid High cholesterol HTN (hypertension) Home Medications ???Medication ???Instructions ???Recorded ???Last Taken ???Type levothyroxine 137 mcg tablet 150 mcg PO DAILY thyroid 01/06/20 01/05/20 History lisinopril 10 mg tablet 40 mg PO DAILY blood pressure 12/2501/04/20 History amlodipine 10 mg tablet (Norvasc) 10 mg PO DAILY 08/06/24 Unknown H istory furosemide 40 mg tablet (Lasix) 40 mg PO DAILY 08/06/24 Unknown Hi story pravastatin 10 mg tablet 10 mg PO QHS 08/06/24 Unknown Hist ory allopurinol 300 mg tablet 300 mg PO QDAY 12/10/24 Unknown Hi story mecobalamin (vitamin B12) 1,000 1,000 mcg PO QDAY 12/10/24 Unknown History mcg chewable tablet potassium chloride 20 mEq 20 meq PO QDAY 12/10/24 Unknown Hi story tablet,extended release donepezil 5 mg tablet 5 mg PO DAILY 01/04/25 Unknown His tory doxycycline hyclate 100 mg tablet 100 mg PO BID 01/04/25 Unknown Hi story Allergy/AdvReac Type Severity Reaction Status Date / Time Latex, Natural Rubber Allergy Mild Rash Verified 04/01/25 11:01 Family History Father Colon cancer Mother Hypertension Surgical History S/P D C (status post dilation and curettage) Status post amputation of finger S/P bladder repair History of left hip replacement H/O thyroidectomy History of right hip replacement Social History Smoking Status: N (more content not included)... Normal [facility] Anaerobic cultureOrdered By: Kasi Eugene on 04-11-2025 Bacteria identified Anaer cx Nom (Unsp spec) No anaerobic bacteria isolated. [facility] Gram stainOrdered By: Kasi Eugene on 04-11-2025 Microscopic observation Gram stain Nom (Unsp spec) [facility] Surgery Specimen Level Haim 04-11-2025 Surgery Specimen Level IV ---- Patient Age/Sex Location Account Attending Physician ---- MÓNICA DECKER 75/F [id number] Dr. Kasi Eugene MD ---- Specimen: [id number] Received: 04/11/25 Status: KERI Skinner Num: [id number] Spec Type: Lesion Subm Dr: Dr. Kasi Eugene MD HEADER OPERATION: Tissue excision left groin ulcer PRE-OP DIAGNOSIS: History of hidradenitis, non-healing ulcer TISSUE SUBMITTED: A- Tissue biopsy of left groin ulcer ---- MICROSCOPIC DIAGNOSIS A. Skin, left groin, ulcer, excision: * Focal ulceration with extensive active chronic inflammation. * PASD stain is negative for fungal organisms. MICROSCOPIC DESCRIPTION Slides are reviewed. All matched controls reacted appropriately. These tests were developed and their performance characteristics determined by [facility]. They may not have been cleared or approved by the U.S. Food and Drug Administration. The FDA has determined that such clearance or approval is not necessary.??? The above immunohistochemical/du alISH???markers are ordered and reviewed by the Pathologist. GROSS DESCRIPTION A.??? Received in formalin labeled with the patient's name and date of . Designated as groin biopsy is a 1.3 x 0.6 cm irregular amor portion of skin excised to a maximum depth of 0.2 cm.??? The specimen is not oriented.??? There is a 0.9 x 0.3 cm area of apparent ulceration.??? The resection margin is inked black; the specimen is serially sectioned and entirely submitted in 1 cassette. ND 04/12/2025 [facility]:[id number], [id number] ---- Patient Age/Sex Location Account Attending Physician ---- MÓNICA DECKER 75/[facility] [id number] Dr. Kasi Eugene MD ---- Signed (signature on file) Dr. Rachel Arreaga MD 04/14/25 1220 ---- Normal [facility] Comment on above: Performed By: #### P SANDY #### [facility] [address], [place], [id number] [facility] JOSE Office Visit (LINDSAY ) MÓNICA DECKER ([id number]) 1950 F NFR Date Time Provider Department 04/06/25 11:30 AM SARAH YING During your visit today, we recorded the following information about you: Pulse Respiration Blood pressure Weight 64/minute 14/minute 130/68 73 kg Sarah Ying MD 04/06/2025 12:24 PM Signed We discussed your ongoing health concerns and care plan: - Memory and Cognitive Function: - I increased your Donepezil dosage to help with memory and cognitive function. Continue taking the new dose as prescribed. - We will reassess your progress in 3 months and perform the MoCA ([place] Cognitive Assessment) at that time. - Skin and Pustule Concerns: - You are currently taking Doxycycline for the infection related to the pustules in your groin area. Continue taking this medication as prescribed. - Surgery has been planned with Dr. Leiva to address the pustules and remove the affected sweat glands. Once the surgery is completed and the area heals, we will evaluate whether you can discontinue the Doxycycline. - Nutritional Concerns: - Your sodium levels were previously low, so you are now allowed to include more salty foods in your diet. However, please do not overconsume salty foods. - Your magnesium levels were noted to be high. If you are taking a magnesium supplement, please stop it. If you are not taking a supplement, no further action is needed. - Continue taking potassium as prescribed and include potassium-rich foods like bananas and pineapple in your diet. - Mobility and Physical Activity: - Your walking and mobility have improved significantly. Continue staying active and engaging in daily activities as tolerated. - Use your cane as needed for balance. - Medications and Pharmacy: - All your current medications are appropriate for your care. Continue taking them as prescribed. - Your prescriptions are now being sent to the [facility] pharmacy in [place] for your convenience. Follow-Up: - I will see you again in 3 months to reassess your memory and overall progress. - Please contact me if you experience any new or worsening symptoms, or if you have any concerns before your next visit. Sarah Ying MD 04/06/2025 5:55 PM Signed Reason for Visit Follow up HPI Mónica Decker is a 75-year-old female with a history of cognitive impairment, presenting for follow-up on memory issues and recent health concerns. She is accompanied by her brother, who provides additional history. Mónica reports persistent memory issues despite taking donepezil 5 mg, noting occasional moments of confusion and difficulty with tasks such as balancing her checkbook. Her brother observes a slight improvement in her memory since starting the medication, but both are considering an increase in dosage to further enhance cognitive function. She has a history of multiple surgeries and medical interventions, including a recent DANDC for endometrial hyperplasia. Mónica reports cessation of vaginal bleeding but continues to experience bleeding from cutaneous abscesses in the genital area. She describes these abscesses as large, painful, and swollen, resembling big balls on the labia. Mónica recalls a similar but milder condition in her 20s, which she managed with hygiene and alcohol application. She is currently on doxycycline for these abscesses and expresses a desire to discontinue the antibiotic once the underlying issue is resolved. Mónica mentions a planned surgical consultation with Dr. Leiva to address the abscesses, which she believes are related to sweat glands and excess skin from weight loss. Mónica also reports being tested twice for tuberculosis, with inconclusive results, and is scheduled for further imaging. She denies significant respiratory issues, attributing occasional dyspnea to deconditioning. She is also managing electrolyte imbalances, with recent lab results showing hyponatremia and hypermagnesemia. Mónica has increased her intake of salty foods and is taking potassium supplements, along with consuming more bananas and pineapple for their anti-inflammatory properties. She has discontinued magnesium supplements. Her brother notes significant improvement in her mobility, stating that Mónica is more active and spends more time outdoors. She uses a cane primarily for balance and occasionally forgets its location due to memory issues. Social History Tobacco Use Smoking status: Never Smokeless tobacco: Never Tobacco comments: Mom used to smoke, quit 2012 Vaping Use Vaping status: Never Used Substance Use Topics Alcohol use: No Drug use: No Past medical history, appointments, medications, allergies reviewed. Pertinent Lab/Diagnostic Studies are reviewed and discussed today Current Outpatient Medications: levothyroxine (LEVOXYL) 150 mcg tablet (more content not included)... Normal [facility] XR CHEST 2V FRONTAL/LATon XR CHEST 2V FRONTAL/LAT * * *Final Repor t* * * DATE OF EXAM: Apr 06 2025 1:06PM WOX 5291 - XR CHEST 2V FRONTAL/LAT / PROCEDURE REASON: residential drug therapy * * * * Physician Interpretation * * * * EXAMINATION: CHEST RADIOGRAPH (2 VIEW FRONTAL and LATERAL) CLINICAL HISTORY: MQ: [id number] EXAM DATE/TIME: 04/06/2025 1:06 PM COMPARISON: 01/07/2025 RESULT: Lines, tubes, and devices: None. Lungs and pleura: Nonspecific interstitial prominence and bronchial wall thickening. Scattered calcified granulomata. Consolidation, atelectasis, or pleural effusions. Pulmonary vascularity normal. Cardiomediastinal silhouette: Megaly. Tortuous aorta. Bones and soft tissues: Unremarkable. IMPRESSION: No acute radiographic abnormality. Credit Control Assistant: JONNY Transcribe Date/Time: Apr 08 2025 2:39P Dictated by : HAMILTON HAMPTON MD This examination was interpreted and the report reviewed and electronically signed by: HAMILTON HAMPTON MD on Apr 08 2025 2:41PM EST [id number] Normal [facility] Plastic Surgery Visit Report on 04-01-2025 Plastic Surgery Visit Report [facility] Plastic Reconstructive Surgery [address], [address] [place] [address] OFFICE VISIT Date of Service: 04/01/25 MR#: [id number] Acct: [id number] Name: MÓNICA DECKER Mary Rep #: [id number] : 1950 Provider: Dr. Kasi Eugene MD Age/Sex: 75/F Location: [facility] Status: Signed Intake Vital Signs 01/31/25 09:25 04/01/25 11:01 Height 5 ft Weight: 165 lb 4 oz BMI 32.3 BP 125/69 H 123/73 H Blood Pressure Location Rt brachial Position Sitting Respiration 18 Pulse 66 Pulse Source Monitor Pulse Oximetry (%) 98 Oxygen Delivery Method room air Intake Visit Reasons: FOLLOW UP Chief Complaint: Hidradenitis Is patient in pain?: Yes Allergies Latex, Natural Rubber Allergy (Mild, Verified 04/01/25 11:01) Rash Medications ???Medication ???Instructions ???Recorded ???Confirmed ???Type levothyroxine 137 mcg tablet 150 mcg PO DAILY thyroid 01/06/20 04/01/25 History lisinopril 10 mg tablet 40 mg PO DAILY blood pressure 12/2504/01/25 History amlodipine 10 mg tablet (Norvasc) 10 mg PO DAILY 08/06/24 04/01/25 History furosemide 40 mg tablet (Lasix) 40 mg PO DAILY 08/06/24 04/01/25 H istory pravastatin 10 mg tablet 10 mg PO QHS 08/06/24 04/01/25 His tory allopurinol 300 mg tablet 300 mg PO QDAY 12/10/24 04/01/25 H istory mecobalamin (vitamin B12) 1,000 1,000 mcg PO QDAY 12/10/24 5 History mcg chewable tablet potassium chloride 20 mEq 20 meq PO QDAY 12/10/24 04/01/25 H istory tablet,extended release donepezil 5 mg tablet 5 mg PO DAILY 01/04/25 04/01/25 Hi story doxycycline hyclate 100 mg tablet 100 mg PO BID 01/04/25 04/01/25 H istory Have you fallen in the past year?: No PFSH Medical History Post-menopausal Depression Anxiety Dementia Open wound Arthritis Non-smoker Shortness of breath on exertion Urinary incontinence Gout Hypothyroid High cholesterol HTN (hypertension) Surgical History S/P D C (status post dilation and curettage) Status post amputation of finger S/P bladder repair History of left hip replacement H/O thyroidectomy History of right hip replacement Family History Father Colon cancer Mother Hypertension Social History Smoking Status: Never smoker additional social history: Single HPI FOLLOW UP Details: Mónica Decker is a delightful 74-year-old woman with past medical history of hypertension, postmenopausal vaginal bleeding (scheduled for a D C procedure later this month for evaluation), as well as hidradenitis suppurativa for which she is coming into the office today for evaluation. It is in her groin and has been present as it is for months. It is draining and uncomfortable /painful. She is not a smoker. I spoke to her labeling associate regarding her treatment of the HS (last seen 27 December 2024 by Leland Arora). Patient placed on Hibiclens bathes, Doxycycline for 6 weeks to calm down the lesions, as well as an intramuscular kenalog shot. Patient has had 45 pounds of unintentional weight loss over the past couple of years. She has not had a screening mammography or a colonoscopy recently within the recommended guidelines. Current encounter. 01 April 2025: Patient here for follow-up for groin hidradenitis. She reports areas of drainage and purulence have developed consistent with her hidradenitis disease. Exam Details Groin seen and examined with female dietitian teacher present No lymphadenopathy Bilateral inguinal folds with Brown stage I hidradenitis with some draining bilaterally on the margins of the labia majora. She has some hypertrophic granulation tissue on the right at the top of the sinus. There are fluid collections today that are draining No surrounding erythema or signs of spreading infection. Coding Level of Care Code Off vis,est,level 3 Diagnoses Hidradenitis suppurativa L73.2 Assessment and Plan (No Qualifiers) Assessment and Plan (1) Hidradenitis suppurativa: Status: Acute Plan: Plan from 31 December 2024 I discussed with the patient extensively hidradenitis suppurativa and the treatment options, including excision and healing by secondary intention. Given that the patient has recently had a steroid injection, and is currently on medical therapy with doxycycline, I am recommending 6 weeks of management with these medical options before we attempt surgical intervention. She has Brown stage I disease right now and it could possibly improve with the above-noted therapies. Plan to follow-up in 6 weeks. In the meantime she will treat with pads/Aquacel Ag t (more content not included)... Normal [facility] 03-07-2025 [facility] Telephone ([employer]) MÓNICA DECKER ([id number]) 1950 F NFR Date Time Provider Department 03/07/25 MATEO MARMOLEJO [facility] During your visit today, we recorded the following information about you: Triny Rios 03/07/2025 4:32 PM Signed Patient's brother Gerson is calling in asking if they can get an order placed for a colonoscopy. Patient received letter in the mail stating she is due for one. Please review and advise. Triny Lee Gabriel March 07, 2025 4:32 PM Angelic Bonilla RN 03/08/2025 4:55 PM Signed Pt's brother Gerson calling in again asking about getting pt's colonoscopy scheduled. Explained to brother that pt's last scope was done on 05/30/2022 with 3 yr follow up recommended. Encouraged him to call pt's insurance Medicare if he wants pt to have procedure prior to the 3 year yandel. Pt's last scope was done at GI in [place] with MAC anesthesia. GI consult pended with dx hx of tubular adenoma colon polyps. Explained to brother that pt will need a consult appt with someone prior to scheduling. He asks that once consult is placed that he is called to set up the appt. Mateo Marmolejo MD 03/08/2025 5:18 PM Signed Order for gastro consult [place] [facility] placed. Allergies As of Date: 03/07/2025 Noted Allergy Reaction LATEX 03/07/2021 16 - Unknown Date Reviewed: 02/01/2025 Reviewed by: Anthony Solano LPN - Fully Assessed Reason for Visit: Orders [681] Cmt: request for colonoscopy Primary Visit Diagnosis:History of colonic polyps [Z86.0100] Other Visit Diagnosis:Tubular adenoma of colon [D12.6] Order(s):CONSULT TO GASTROENTEROLOGY [9010] Order #: [id number]: 1 FUTURE Prescriptions as of 03/16/2025 - levothyroxine (LEVOXYL) 150 mcg tablet Take 1 tablet by mouth once daily. Mon-Fri and none on Friday. PLEASE MAIL TO PATIENT'S HOME - PILL FILI - donepezil (ARICEPT) 5 mg tablet TAKE 1 TABLET BY MOUTH DAILY AFTER BREAKFAST. - cyanocobalamin (VITAMIN B-12) 1,000 mcg tab Take 1 tablet by mouth once daily. - doxycycline (VIBRA-TABS) 100 mg tablet Take 100 mg by mouth two times a day. 45 days - allopurinol (ZYLOPRIM) 300 mg tablet Take 1 tablet by mouth once daily. For gout. - amLODIPine (NORVASC) 10 mg tablet Take 1 tablet by mouth once daily. PLEASE MAIL TO PATIENT;S HOME - PILL FILI - furosemide (LASIX) 40 mg tablet Take 1 tablet by mouth once daily. PLEASE MAIL TO PATIENT;S HOME - PILL FILI - lisinopril (ZESTRIL) 40 mg tablet Take 1 tablet by mouth once daily. PLEASE MAIL TO PATIENT'S HOME - PILL FILI - pravastatin (PRAVACHOL) 10 mg tablet Take 1 tablet by mouth once daily. PLEASE MAIL TO PATIENT'S HOME - PILL FILI - silver sulfADIAZINE (SILVADENE) 1 % cream - potassium chloride 20 mEq TbER Take 1 tablet by mouth once daily. - acetaminophen (TYLENOL) 500 mg tablet Take 2 tablets by mouth every 8 hours as needed for pain. - polyethylene glycol 3350 17 gram packet Take 1 Packet by mouth once daily. Dissolve dose in 4 - 8 ounces of liquid and take as directed. Problem List As Of Date 03/07/2025 Noted Resolved SANDRA (obstructive sleep apnea) [G47.33] 07/08/2005 Allergic rhinitis [J30.9] 07/08/2005 Essential hypertension, benign [I10] 07/08/2005 NONTOX NODUL GOITER NOS [E04.9] 07/08/2005 09/04/2005 Postsurgical hypothyroidism [E89.0] 09/04/2005 Primary osteoarthritis of both hips [M16.0] 06/20/2015 Primary osteoarthritis of both knees [M17.0] 06/20/2015 Personal history of colonic polyps [Z86.0100] 03/14/2016 Hyperlipidemia, mixed [E78.2] 02/05/2018 Medicare annual wellness visit, subsequent [Z00*08/27/2018 Well adult exam [Z00.00] 08/27/2018 03/25/2020 Elevated hemoglobin A1c [R73.09] 08/27/2018 Screening for colon cancer [Z12.11] 08/27/2018 OAB (overactive bladder) [N32.81] 12/19/2020 Hammer toes of both feet [M20.41, M20.42] 01/24/2021 Foot callus [L84] 01/24/2021 Dystrophic nail [L60.3] 01/24/2021 Acute idiopathic gout involving toe of right fo*01/24/2021 Obesity, Class II, BMI 35-39.9 [E66.812] 02/19/2021 Advance directive discussed with patient [Z71.8*02/14/2022 Dermatitis [L30.9] 01/09/2023 Bilateral hip pain [M25.551, M25.552] 06/05/2023 S/P total right hip arthroplasty [Z96.641] 06/26/2023 S/P total left hip arthroplasty [Z96.642] 04/22/2024 Medication management [Z79.899] 07/23/2024 Low vitamin B12 level [R79.89] 07/26/2024 Urinary incontinence [R32] 07/28/2024 Ambulatory dysfunction [R26.2] 08/31/2024 Encounter Status:Closed by TRINY RIOS on 03/16/[address] [facility] BLOOD TB SCREENon 03-02-2025 M. tuberculosis tuberculin stim IFN-g Ql (Bld) Indeterminate Normal [facility] Comment on above: Order Comment: Speci men Type: BLOOD SPECIMENOrdering Facility: [facility] Address: [facility] [place] [address] Performed By: #### I NFTBP ####[facility] [id number] [place] [address] [place] MITOGEN MINUS NIL 0.14 IU/mL Low >=0.50 [facility] Comment on above: Order Comment: Jeri felix Type: BLOOD SPECIMENOrdering Facility: [facility] Address: [facility] [place] [address] Performed By: #### I NFTBP ####[facility] [id number] [place] [address] [place] TB GAMMA INTERPRETATION This result is indeterminate for Mycobacterium tuberculosis complex antigen responsiveness. Specimens from immunocompromised patients, those <5 years of age, and those with a known recent exposure may fall under this category. Please correlate with clinical picture and other alternative assessments. Normal [facility] Comment on above: Order Comment: Valei isidro Type: BLOOD SPECIMENOrdering Facility: [facility] Address: [facility] [place] [address] Performed By: #### I NFTBP ####[facility] [id number] [place] [address] [place] TB NIL <0.00 Normal <=8.[address] [facility] Comment on above: Order Comment: Speci men Type: BLOOD SPECIMENOrdering Facility: [facility] Address: [facility] [place] [address] Performed By: #### I NFTBP ####[facility] [id number] [place] [address] [place] TB1 AG MINUS NIL <0.00 Normal <0.35 [facility] Comment on above: Order Comment: Speci men Type: BLOOD SPECIMENOrdering Facility: [facility] Address: [facility] [place] [address] Performed By: #### I NFTBP ####[facility] [id number] [place] [address] [place] TB2 AG MINUS NIL 0.00 IU/mL Normal <0.35 [facility] Comment on above: Order Comment: Speci men Type: BLOOD SPECIMENOrdering Facility: [facility] Address: [facility] [place] [address] Performed By: #### I NFTBP ####[facility] [id number] [place] [address] [place] Basic metabolic 2000 panelon 02-17-2025 Anion gap [Moles/Vol] 12 mmol/L Normal 8-15 [facility] Comment on above: Order Comment: Speci men Type: BLOOD SPECIMENOrdering Facility: [facility] Address: [address] [place] [address] Performed By: #### 2 4321-2 ####[facility] [id number] [address] [id number] [address] [place] Calcium [Mass/Vol] 9.6 mg/dL Normal 8.5-10.2 [facility] Comment on above: Order Comment: Speci men Type: BLOOD SPECIMENOrdering Facility: [facility] Address: [address] [place] [address] Performed By: #### 2 4321-2 ####[facility] [id number] [place] [address] [place] Chloride [Moles/Vol] 105 mmol/L Normal 98-107 [facility] Comment on above: Order Comment: Speci men Type: BLOOD SPECIMENOrdering Facility: [facility] Address: [address] [place] [address] Performed By: #### 2 4321-2 ####[facility] [id number] [place] [address] [place] CO2 [Moles/Vol] 22 mmol/L Normal 22-[address] [facility] Comment on above: Order Comment: Speci men Type: BLOOD SPECIMENOrdering Facility: [facility] Address: [address] [place] [address] Performed By: #### 2 4321-2 ####[facility] [id number] [place] [address] [place] Creatinine [Mass/Vol] 0.86 mg/dL Normal 0.58-0.96 [facility] Comment on above: Order Comment: Speci men Type: BLOOD SPECIMENOrdering Facility: [facility] Address: [address] [place] [address] Performed By: #### 2 4321-2 ####[facility] [id number] [place] [id number] [place] Creatinine and Glomerular filtration rate.predicted panel (S/P/Bld) 71 mL/min/1.73m??? Normal >=[address] [facility] Comment on above: Order Comment: Speci men Type: BLOOD SPECIMENOrdering Facility: [facility] Address: [address] [place] [address] Result Comment: Ashley mated Glomerular Filtration Rate (eGFR) is calculated using the 2020 CKD-EPI creatinine equation. This equation utilizes serum creatinine, sex, and age as parameters. The creatinine assay has traceable calibration to isotope dilution-mass spectrometry. Refer to KDIGO guidelines for clinical interpretation. In patients with unstable renal function, e.g. those with acute kidney injury, the eGFR may not accurately reflect actual GFR. Performed By: #### 2 4321-2 ####[facility] [id number] [place] [address] [place] Glucose [Mass/Vol] 89 mg/dL Normal 74-99 [facility] Comment on above: Order Comment: Speci men Type: BLOOD SPECIMENOrdering Facility: [facility] Address: [address] [place] [address] Result Comment: The [place] Diabetes Association (ADA) provides guidance for cutoff values for fasting glucose and random glucose. The ADA defines fasting as no caloric intake for at least 8 hours. Fasting plasma glucose results between 100 to 125 mg/dL indicate increased risk for diabetes (prediabetes). Fasting plasma glucose results greater than or equal to 126 mg/dL meet the criteria for diagnosis of diabetes. In the absence of unequivocal hyperglycemia, results should be confirmed by repeat testing. In a patient with classic symptoms of hyperglycemia or hyperglycemic crisis, random plasma glucose results greater than or equal to 200 mg/dL meet the criteria for diagnosis of diabetes. Reference: Standards of Medical Care in Diabetes 2016, [place] [employer] Association. Diabetes Care. 2016.39(Suppl 1). Performed By: #### 2 4321-2 ####[facility] [id number] [place] [address] [place] Potassium [Moles/Vol] 4.3 mmol/L Normal 3.7-5.1 [facility] Comment on above: Order Comment: Speci men Type: BLOOD SPECIMENOrdering Facility: [facility] Address: [address] [place] [address] Performed By: #### 2 4321-2 ####[facility] [id number] [place] [id number] [place] Sodium [Moles/Vol] 139 mmol/L Normal 136-144 [facility] Comment on above: Order Comment: Speci men Type: BLOOD SPECIMENOrdering Facility: [facility] Address: [address] [place] [address] Performed By: #### 2 4321-2 ####[facility] [id number] [place] [address] [place] Urea nitrogen [Mass/Vol] 18 mg/dL Normal 7-[address] [facility] Comment on above: Order Comment: Valei men Type: BLOOD SPECIMENOrdering Facility: [facility] Address: [address] [place] [address] Performed By: #### 2 4321-2 ####[facility] [id number] [place] [address] [place] BLOOD TB SCREENon 02-07-2025 M. tuberculosis tuberculin stim IFN-g Ql (Bld) Indeterminate Normal [facility] Comment on above: Order Comment: Valei isidro Type: BLOOD SPECIMENOrdering Facility: [facility] Address: [facility] [place] [address] Performed By: #### I NFTBP ####[facility] [id number] [place] [address] [place] MITOGEN MINUS NIL 0.43 IU/mL Low >=0.50 [facility] Comment on above: Order Comment: Valei isidro Type: BLOOD SPECIMENOrdering Facility: [facility] Address: [address] [place] [address] Performed By: #### I NFTBP ####[facility] [id number] [place] [id number] [place] TB GAMMA INTERPRETATION This result is indeterminate for Mycobacterium tuberculosis complex antigen responsiveness. Specimens from immunocompromised patients, those <5 years of age, and those with a known recent exposure may fall under this category. Please correlate with clinical picture and other alternative assessments. Normal [facility] Comment on above: Order Comment: Speci men Type: BLOOD SPECIMENOrdering Facility: [facility] Address: [address] [place] [address] Performed By: #### I NFTBP ####[facility] [id number] [place] [address] [place] TB NIL <0.00 Normal <=8.[address] [facility] Comment on above: Order Comment: Speci men Type: BLOOD SPECIMENOrdering Facility: [facility] Address: [address], [place] [address] Performed By: #### I NFTBP ####[facility] [id number] [place] [address] [place] TB1 AG MINUS NIL <0.00 Normal <0.35 [facility] Comment on above: Order Comment: Speci men Type: BLOOD SPECIMENOrdering Facility: [facility] Address: [address], [place] [address] Performed By: #### I NFTBP ####[facility] LABCLIA [id number] [address] [place] TB2 AG MINUS NIL <0.00 Normal <0.35 [facility] Comment on above: Order Comment: Speci men Type: BLOOD SPECIMENOrdering Facility: [facility] Address: [address], [place] [address] Performed By: #### I NFTBP ####[facility] LABCLIA [id number] [place] [id number] [place] Basic metabolic 2000 panelon 02-07-2025 Anion gap [Moles/Vol] 12 mmol/L Normal 8-15 [facility] Comment on above: Order Comment: Speci men Type: BLOOD SPECIMENOrdering Facility: [facility] Address: [address] [place] [address] Performed By: #### 1 9123-9, 88530-2, 95710-6 ####[facility] LABCLIA [id number] [address] [address] [place] Calcium [Mass/Vol] 9.6 mg/dL Normal 8.5-10.2 [facility] Comment on above: Order Comment: Speci men Type: BLOOD SPECIMENOrdering Facility: [facility] Address: [address] [place] [address] Performed By: #### 1 9123-9, 13875-5, 33635-2 ####[facility] LABCLIA [id number] [place] [address] [place] Chloride [Moles/Vol] 97 mmol/L Low 98-107 [facility] Comment on above: Order Comment: Speci men Type: BLOOD SPECIMENOrdering Facility: [facility] Address: [address] [place] [address] Performed By: #### 1 9123-9, 29129-2, 06833-1 ####[facility] LABIA [id number] [place] [address] [place] CO2 [Moles/Vol] 21 mmol/L Low 22-[address] [facility] Comment on above: Order Comment: Speci men Type: BLOOD SPECIMENOrdering Facility: [facility] Address: [address] [place], [place] [address] Performed By: #### 1 9123-9, 14126-2, 71913-1 ####[facility] LABIA [id number] [address] [address] [place] Creatinine [Mass/Vol] 0.77 mg/dL Normal 0.58-0.96 [facility] Comment on above: Order Comment: Speci men Type: BLOOD SPECIMENOrdering Facility: [facility] Address: [address] [place], [place] [address] Performed By: #### 1 9123-9, 94177-3, 61369-5 ####[facility] LABIA [id number] [place] [address] [place] Creatinine and Glomerular filtration rate.predicted panel (S/P/Bld) 81 mL/min/1.73m??? Normal >=[address] [facility] Comment on above: Order Comment: Jeri felix Type: BLOOD SPECIMENOrdering Facility: [facility] Address: [address] [place] [address] Result Comment: Ashley mated Glomerular Filtration Rate (eGFR) is calculated using the 2020 CKD-EPI creatinine equation. This equation utilizes serum creatinine, sex, and age as parameters. The creatinine assay has traceable calibration to isotope dilution-mass spectrometry. Refer to KDIGO guidelines for clinical interpretation. In patients with unstable renal function, e.g. those with acute kidney injury, the eGFR may not accurately reflect actual GFR. Performed By: #### 1 9123-9, 02384-4, 65360-1 ####[facility] LABIA [id number] [place] [address] [place] Glucose [Mass/Vol] 81 mg/dL Normal 74-99 [facility] Comment on above: Order Comment: Jeri felix Type: BLOOD SPECIMENOrdering Facility: [facility] Address: [address] [place] [address] Result Comment: The [place] [employer] (ADA) provides guidance for cutoff values for fasting glucose and random glucose. The ADA defines fasting as no caloric intake for at least 8 hours. Fasting plasma glucose results between 100 to 125 mg/dL indicate increased risk for diabetes (prediabetes). Fasting plasma glucose results greater than or equal to 126 mg/dL meet the criteria for diagnosis of diabetes. In the absence of unequivocal hyperglycemia, results should be confirmed by repeat testing. In a patient with classic symptoms of hyperglycemia or hyperglycemic crisis, random plasma glucose results greater than or equal to 200 mg/dL meet the criteria for diagnosis of diabetes. Reference: Standards of Medical Care in Diabetes 2016, [place] [employer] Association. Diabetes Care. 2016.39(Suppl 1). Performed By: #### 1 9123-9, 68704-7, 19524-4 ####[facility] LABCLIA [id number] [place] [address] [place] Potassium [Moles/Vol] 4.6 mmol/L Normal 3.7-5.1 [facility] Comment on above: Order Comment: Speci men Type: BLOOD SPECIMENOrdering Facility: [facility] Address: [address] [place] [address] Performed By: #### 1 9123-9, 12015-3, 29721-6 ####[facility] LABIA [id number] [place] [address] [place] Sodium [Moles/Vol] 130 mmol/L Low 136-144 [facility] Comment on above: Order Comment: Speci men Type: BLOOD SPECIMENOrdering Facility: [facility] Address: [address] [place] [address] Performed By: #### 1 9123-9, 17378-8, 27977-9 ####[facility] [id number] [place] [address] [place] Urea nitrogen [Mass/Vol] 15 mg/dL Normal 7-[address] [facility] Comment on above: Order Comment: Speci men Type: BLOOD SPECIMENOrdering Facility: [facility] Address: [address] [place] [address] Performed By: #### 1 9123-9, 64467-4, 32065-2 ####[facility] LABIA [id number] [address] [address] [place] CBC W Auto Differential pane l (Bld)on 02-07-2025 Basophils (Bld) [#/Vol] 0.06 10*3/uL Normal <0.[address] [facility] Comment on above: Order Comment: Speci men Type: BLOOD SPECIMENOrdering Facility: [facility] Address: [address], [place] [address] Performed By: #### 5 7021-8 ####[facility] LABCLIA [id number] [place] [address] [place] Basophils/100 WBC (Bld) 0.7 % Normal [facility] Comment on above: Order Comment: Speci men Type: BLOOD SPECIMENOrdering Facility: [facility] Address: [facility] [place] [address] Performed By: #### 5 7021-8 ####[facility] LABCLIA [id number] [place] [address] [place] Differential cell count method Nom (Bld) Auto Normal [facility] Comment on above: Order Comment: Speci men Type: BLOOD SPECIMENOrdering Facility: [facility] Address: [facility] [place] [address] Performed By: #### 5 7021-8 ####[facility] LABCLIA [id number] [place] [address] [place] Eosinophils (Bld) [#/Vol] 0.04 10*3/uL Normal <0.[address] [facility] Comment on above: Order Comment: Speci men Type: BLOOD SPECIMENOrdering Facility: [facility] Address: [place] [address] Performed By: #### 5 7021-8 ####[facility] LABCLIA [id number] [address] [place] Eosinophils/100 WBC (Bld) 0.5 % Normal [facility] Comment on above: Order Comment: Speci men Type: BLOOD SPECIMENOrdering Facility: [facility] Address: [place] [address] Performed By: #### 5 7021-8 ####[facility] LABCLIA [id number] [place] [address] [place] Erythrocyte distribution width (RBC) [Ratio] 13.8 % Normal 11.5-15.[address] [facility] Comment on above: Order Comment: Speci men Type: BLOOD SPECIMENOrdering Facility: [facility] Address: [address], [place] [address] Performed By: #### 5 7021-8 ####[facility] LABCLIA [id number] [place] [address] [place] Hematocrit (Bld) [Volume fraction] 38.6 % Normal 36.0-46.[address] [facility] Comment on above: Order Comment: Speci men Type: BLOOD SPECIMENOrdering Facility: [facility] Address: [address], [place] [address] Performed By: #### 5 7021-8 ####[facility] LABCLIA [id number] [place] [address] [place] Hemoglobin (Bld) [Mass/Vol] 13.0 g/dL Normal 11.5-15.[address] [facility] Comment on above: Order Comment: Speci men Type: BLOOD SPECIMENOrdering Facility: [facility] Address: [address], [place] [address] Performed By: #### 5 7021-8 ####[facility] LABCLIA [id number] [place] [address] [place] Immature granulocytes (Bld) [#/Vol] 0.03 10*3/uL Normal <0.[address] [facility] Comment on above: Order Comment: Speci men Type: BLOOD SPECIMENOrdering Facility: [facility] Address: [address], [place] [address] Performed By: #### 5 7021-8 ####[facility] LABCLIA [id number] [place] [address] [place] Immature granulocytes/100 WBC (Bld) 0.4 % Normal [facility] Comment on above: Order Comment: Speci men Type: BLOOD SPECIMENOrdering Facility: [facility] Address: [address], [place] [address] Performed By: #### 5 7021-8 ####[facility] LABCLIA [id number] [place] [address] [place] Lymphocytes (Bld) [#/Vol] 0.94 10*3/uL Low 1.00-4.[address] [facility] Comment on above: Order Comment: Speci men Type: BLOOD SPECIMENOrdering Facility: [facility] Address: [address], [place] [address] Performed By: #### 5 7021-8 ####[facility] LABIA [id number] [place] [address] [place] Lymphocytes/100 WBC (Bld) 11.4 % Normal [facility] Comment on above: Order Comment: Speci men Type: BLOOD SPECIMENOrdering Facility: [facility] Address: [address], [place] [address] Performed By: #### 5 7021-8 ####[facility] LABCLIA [id number] [place] [address] [place] MCH (RBC) [Entitic mass] 30.2 pg Normal 26.0-34.[address] [facility] Comment on above: Order Comment: Speci men Type: BLOOD SPECIMENOrdering Facility: [facility] Address: [address], [place] [address] Performed By: #### 5 7021-8 ####[facility] LABCLIA [id number] [place] [address] [place] MCHC (RBC) [Mass/Vol] 33.7 g/dL Normal 30.5-36.0 [facility] Comment on above: Order Comment: Speci men Type: BLOOD SPECIMENOrdering Facility: [facility] Address: [address], [place] [address] Performed By: #### 5 7021-8 ####[facility] LABCLIA [id number] [address] [address] [place] MCV (RBC) [Entitic vol] 89.8 fL Normal 80.0-100.0 [facility] Comment on above: Order Comment: Speci men Type: BLOOD SPECIMENOrdering Facility: [facility] Address: [address], [place] [address] Performed By: #### 5 7021-8 ####[facility] LABCLIA [id number] [address] [address] [place] Monocytes (Bld) [#/Vol] 0.48 10*3/uL Normal <0.[address] [facility] Comment on above: Order Comment: Speci men Type: BLOOD SPECIMENOrdering Facility: [facility] Address: [address], [place] [address] Performed By: #### 5 7021-8 ####[facility] LABCLIA [id number] [place] [address] [place] Monocytes/100 WBC (Bld) 5.8 % Normal [facility] Comment on above: Order Comment: Speci men Type: BLOOD SPECIMENOrdering Facility: [facility] Address: [address], [place] [address] Performed By: #### 5 7021-8 ####[facility] LABCLIA [id number] [address] [address] [place] Neutrophils (Bld) [#/Vol] 6.70 10*3/uL Normal 1.45-7.[address] [facility] Comment on above: Order Comment: Speci men Type: BLOOD SPECIMENOrdering Facility: [facility] Address: [address], [place] [address] Performed By: #### 5 7021-8 ####[facility] LABCLIA [id number] [place] [address] [place] Neutrophils/100 WBC (Bld) 81.2 % Normal [facility] Comment on above: Order Comment: Speci men Type: BLOOD SPECIMENOrdering Facility: [facility] Address: [address], [place] [address] Performed By: #### 5 7021-8 ####[facility] LABCLIA [id number] [place] [address] [place] Nucleated RBC (Bld) [#/Vol] 10*3/uL Normal <0.[address] [facility] Comment on above: Order Comment: Speci men Type: BLOOD SPECIMENOrdering Facility: [facility] Address: [address], [place] [address] Performed By: #### 5 7021-8 ####[facility] LABCLIA [id number] [place] [address] [place] Nucleated RBC/100 WBC (Bld) [Ratio] 0.0 /[address] [facility] Comment on above: Order Comment: Speci men Type: BLOOD SPECIMENOrdering Facility: [facility] Address: [address], [place] [address] Performed By: #### 5 7021-8 ####[facility] LABCLIA [id number] [place] [address] [place] Platelet mean volume (Bld) [Entitic vol] 9.9 fL Normal 9.0-12.[address] [facility] Comment on above: Order Comment: Speci men Type: BLOOD SPECIMENOrdering Facility: [facility] Address: [address], [place] [address] Performed By: #### 5 7021-8 ####[facility] LABCLIA [id number] [place] [address] [place] Platelets (Bld) [#/Vol] 273 10*3/uL Normal 150-[address] [facility] Comment on above: Order Comment: Speci men Type: BLOOD SPECIMENOrdering Facility: [facility] Address: [address], [place] [address] Performed By: #### 5 7021-8 ####[facility] LABCLIA [id number] [place] [address] [place] RBC (Bld) [#/Vol] 4.30 10*6/uL Normal 3.90-5.20 [facility] Comment on above: Order Comment: Speci men Type: BLOOD SPECIMENOrdering Facility: [facility] Address: [address], [place] [address] Performed By: #### 5 7021-8 ####[facility] LABCLIA [id number] [place] [address] [place] WBC (Bld) [#/Vol] 8.25 10*3/uL Normal 3.70-11.00 [facility] Comment on above: Order Comment: Speci men Type: BLOOD SPECIMENOrdering Facility: [facility] Address: [address], [place] [address] Performed By: #### 5 7021-8 ####[facility] LABCLIA [id number] [place] [address] [place] HBV core Ab Ser Qlon 025 HBV core Ab Ql (S) Negative Normal Negative [facility] Comment on above: Order Comment: Speci men Type: BLOOD SPECIMENOrdering Facility: [facility] Address: [address], [place] [address] Result Comment: No e vidence of current or past infection with Hepatitis B virus. Should recent infection be suspected, repeat testing may be considered 3-4 weeks after this draw. Performed By: #### 2 2322-2, 5195-3, 17066-8 ####[facility] LABCLIA [id number] [place] [address] [place] HBV surface Ab Ql (S)on 01-25 HBV surface Ab Qn (S) <8.00 Normal [facility] Comment on above: Order Comment: Speci men Type: BLOOD SPECIMENOrdering Facility: [facility] Address: [address], [place] [address] Result Comment: <8 m IU/mL: No serological evidence of immunity to Hepatitis B Virus. >/= 8 to <12 mIU/mL: No serological evidence of immunity to Hepatitis B Virus. >/= 12 mIU/mL: Consistent with serological evidence of immunity to Hepatitis B Virus. Performed By: #### 2 2322-2, 5-3, 81775-0 ####[facility] LABCLIA [id number] [place] [address] [place] HBV surface Ab Ser Qlon 01-25 HBV surface Ab Ql (S) Negative Normal [facility] Comment on above: Order Comment: Speci men Type: BLOOD SPECIMENOrdering Facility: [facility] Address: [address], [place] [address] Result Comment: No s erological evidence of immunity to Hepatitis B Virus. Performed By: #### 2 2322-2, 5194-3, 11788-8 ####[facility] LABCLIA [id number] [place] [address] [place] HBV surface Ag Ser Qlon 01-25 HBV surface Ag Ql (S) Negative Normal Negative [facility] Comment on above: Order Comment: Speci men Type: BLOOD SPECIMENOrdering Facility: [facility] Address: [address], [place] [address] Performed By: #### 2 2322-2, 5194-3, 65269-0 ####[facility] LABCLIA [id number] [place] [address] [place] HCV Ab Ser Qlon 02-07-2025 HCV Ab Ql (S) Negative Normal Negative [facility] Comment on above: Order Comment: Jeri felix Type: BLOOD SPECIMENOrdering Facility: [facility] Address: [address], [place] [address] Result Comment: The result suggests no evidence of infection with Hepatitis C virus. Should recent infection be suspected, repeat testing may be considered 4-6 weeks after this draw. Performed By: #### 1 6128-1 ####[facility] LABCLIA [id number] [address] [place] [address] [place] Hepatic function 2000 panelo n 02-07-2025 Albumin [Mass/Vol] 4.3 g/dL Normal 3.9-4.9 [facility] Comment on above: Order Comment: Jeri felix Type: BLOOD SPECIMENOrdering Facility: [facility] Address: [address], [place] [address] Performed By: #### 1 9123-9, 37524-7, 61931-0 ####[facility] LABCLIA [id number] [address] [place] [address] [place] ALP [Catalytic activity/Vol] 85 U/L Normal 34-[address] [facility] Comment on above: Order Comment: Jeri felix Type: BLOOD SPECIMENOrdering Facility: [facility] Address: [address], [place] [address] Performed By: #### 1 9123-9, 05857-7, 31010-2 ####[facility] LABCLIA [id number] [address] [place] [address] [place] ALT [Catalytic activity/Vol] 20 U/L Normal 7-[address] [facility] Comment on above: Order Comment: Jeri felix Type: BLOOD SPECIMENOrdering Facility: [facility] Address: [address], [place] [address] Performed By: #### 1 9123-9, 52457-9, 01167-8 ####[facility] LABCLIA [id number] [address] [place] [address] [place] AST [Catalytic activity/Vol] 24 U/L Normal 13-[address] [facility] Comment on above: Order Comment: Speci men Type: BLOOD SPECIMENOrdering Facility: [facility] Address: [address], [place] [address] Performed By: #### 1 9123-9, 73729-6, 14218-0 ####[facility] LABCLIA [id number] [place] [address] [place] Bilirubin [Mass/Vol] 1.0 mg/dL Normal 0.2-1.3 [facility] Comment on above: Order Comment: Speci men Type: BLOOD SPECIMENOrdering Facility: [facility] Address: [place] [address] Performed By: #### 1 9123-9, 02900-2, 95091-4 ####[facility] LABCLIA [id number] [address] STATES OF [facility] Bilirubin.conjugated [Mass/Vol] 0.3 mg/dL High <0.[address] [facility] Comment on above: Order Comment: Speci men Type: BLOOD SPECIMENOrdering Facility: [facility] Address: [address] , [place] [address] Performed By: #### 1 9123-9, 83890-6, 09919-4 ####[facility] LABCLIA [id number] [place] [address] [place] Protein [Mass/Vol] 6.4 g/dL Normal 6.3-8.0 [facility] Comment on above: Order Comment: Speci men Type: BLOOD SPECIMENOrdering Facility: [facility] Address: [place] [address] Performed By: #### 1 9123-9, 81703-0, 98754-5 ####[facility] LABCLIA [id number] [place] [address] [place] Magnesium SerPl-mCncon 02-07 Magnesium [Mass/Vol] 2.0 mg/dL Normal 1.7-2.3 [facility] Comment on above: Order Comment: Speci men Type: BLOOD SPECIMENOrdering Facility: [facility] Address: [address] [place] [address] Performed By: #### 1 9123-9, 36043-3, 59764-5 ####[facility] LABCLIA [id number] [place] [address] [place] Osmolality Uron 02-07-2025 Osmolality (U) [Osmolality] 611 mosm/kg Normal 50-[address] [facility] Comment on above: Order Comment: Speci men Type: URINE SPECIMENOrdering Facility: [facility] Address: [address] [place] [address] Performed By: #### 2 695-5 ####[facility] LABCLIA [id number] [place] [address] [place] Sodium ?Tm Ur-sCncon 025 Sodium Unsp time (U) [Moles/Vol] 28 mmol/L Normal 14-[address] [facility] Comment on above: Order Comment: Speci men Type: URINE SPECIMENOrdering Facility: [facility] Address: [address] [place] [address] Performed By: #### 3 5678-2 ####[facility] LABCLIA [id number] [place] [address] [place] Basic metabolic 2000 panelon 02-01-2025 Anion gap [Moles/Vol] 13 mmol/L Normal 8-15 [facility] Comment on above: Order Comment: Speci men Type: BLOOD SPECIMENOrdering Facility: [facility] Address: [address] [place] [address] Performed By: #### 1 9123-9, 37459-4 ####[facility] LABCLIA [id number] [address] [address] [place] Calcium [Mass/Vol] 9.4 mg/dL Normal 8.5-10.2 [facility] Comment on above: Order Comment: Speci men Type: BLOOD SPECIMENOrdering Facility: [facility] Address: [address] [place] [address] Performed By: #### 1 9123-9, 22372-4 ####[facility] LABCLIA [id number] [place] [address] [place] Chloride [Moles/Vol] 97 mmol/L Low 98-107 [facility] Comment on above: Order Comment: Speci men Type: BLOOD SPECIMENOrdering Facility: [facility] Address: [address] [place] [address] Performed By: #### 1 9123-9, 32964-1 ####[facility] LABCLIA [id number] [place] [address] [place] CO2 [Moles/Vol] 21 mmol/L Low 22-[address] [facility] Comment on above: Order Comment: Speci men Type: BLOOD SPECIMENOrdering Facility: [facility] Address: [address] [place] [address] Performed By: #### 1 9123-9, 43811-0 ####[facility] LABCLIA [id number] [place] [address] [place] Creatinine [Mass/Vol] 0.75 mg/dL Normal 0.58-0.96 [facility] Comment on above: Order Comment: Speci men Type: BLOOD SPECIMENOrdering Facility: [facility] Address: [address] [place] [address] Performed By: #### 1 9123-9, 20765-2 ####[facility] LABCLIA [id number] [place] [id number] [place] Creatinine and Glomerular filtration rate.predicted panel (S/P/Bld) 83 mL/min/1.73m??? Normal >=[address] [facility] Comment on above: Order Comment: Jeri felix Type: BLOOD SPECIMENOrdering Facility: [facility] Address: [address] [place] [address] Result Comment: Ashley mated Glomerular Filtration Rate (eGFR) is calculated using the 2020 CKD-EPI creatinine equation. This equation utilizes serum creatinine, sex, and age as parameters. The creatinine assay has traceable calibration to isotope dilution-mass spectrometry. Refer to KDIGO guidelines for clinical interpretation. In patients with unstable renal function, e.g. those with acute kidney injury, the eGFR may not accurately reflect actual GFR. Performed By: #### 1 9123-9, 78683-4 ####[facility] [id number] [place] [address] [place] Glucose [Mass/Vol] 95 mg/dL Normal 74-99 [facility] Comment on above: Order Comment: Jeri felix Type: BLOOD SPECIMENOrdering Facility: [facility] Address: [address] [place] [address] Result Comment: The [place] Diabetes Association (ADA) provides guidance for cutoff values for fasting glucose and random glucose. The ADA defines fasting as no caloric intake for at least 8 hours. Fasting plasma glucose results between 100 to 125 mg/dL indicate increased risk for diabetes (prediabetes). Fasting plasma glucose results greater than or equal to 126 mg/dL meet the criteria for diagnosis of diabetes. In the absence of unequivocal hyperglycemia, results should be confirmed by repeat testing. In a patient with classic symptoms of hyperglycemia or hyperglycemic crisis, random plasma glucose results greater than or equal to 200 mg/dL meet the criteria for diagnosis of diabetes. Reference: Standards of Medical Care in Diabetes 2016, [place] Diabetes Association. Diabetes Care. 2016.39(Suppl 1). Performed By: #### 1 9123-9, 02917-7 ####[facility] [id number] [place] [id number] [place] Potassium [Moles/Vol] 4.7 mmol/L Normal 3.7-5.1 [facility] Comment on above: Order Comment: Jeri felix Type: BLOOD SPECIMENOrdering Facility: [facility] Address: [address] [place], [place] [address] Performed By: #### 1 9123-9, 67706-0 ####[facility] [id number] [place] [id number] [place] Sodium [Moles/Vol] 131 mmol/L Low 136-144 [facility] Comment on above: Order Comment: Speci men Type: BLOOD SPECIMENOrdering Facility: [facility] Address: [address] [place] [address] Performed By: #### 1 9123-9, 64980-4 ####[facility] [id number] [place] [address] [place] Urea nitrogen [Mass/Vol] 15 mg/dL Normal 7-[address] [facility] Comment on above: Order Comment: Speci men Type: BLOOD SPECIMENOrdering Facility: [facility] Address: [address] [place] [address] Performed By: #### 1 9123-9, 88957-8 ####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 HISTORY OF PRESENT ILLNESS: Muscle Cramps: - Severe muscle cramps in feet and hands, occurring nocturnally, disrupting sleep. - Describes cramps as muscle seizures that knot up so damn tight. - Left foot cramps more severe than right; toes curl under during episodes. - Cramps in hands cause fingers to curl tightly. - Pain persists post-cramp, with soreness in affected muscles. - Previously managed with magnesium supplementation (>1000 mg daily), but discontinued due to polypharmacy concerns. - Increased water intake over the past 1-2 weeks. - Consumes bananas with every meal; taking potassium supplement. - Denies history of blood clots. PAST MEDICAL HISTORY: PAST MEDICAL HISTORY Diagnosis Date 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 01/24/2021 Adenomatous colon polyp Allergic rhinitis 07/08/2005 Bilateral hip pain 06/05/2023 Dystrophic nail 01/24/2021 multiple bilateral toes. Elevated hemoglobin A1c 08/27/2018 Essential hypertension, benign 07/08/2005 Fracture left forearm and right radial head Hammer toes of both feet 01/24/2021 Hyperlipidemia, mixed 02/05/2018 As of 02/05/18 patient declines statin therapy. Low vitamin B12 level 07/26/2024 Medicare annual wellness visit, subsequent 08/27/2018 Medicare part B: 02/24/2014 last done: 08/27/2019 Morbid (severe) obesity due to excess calories (HCC) 02/06/2006 OAB (overactive bladder) 12/19/2020 Declines medication as of 12/19/20 Obesity, Class II, BMI 35-39.9 02/19/2021 SANDRA (obstructive sleep apnea) 07/08/2005 Had corrective surgery Personal history of colonic polyps 03/14/2016 Postsurgical hypothyroidism 09/04/2005 Primary osteoarthritis of both hips 06/20/2015 Primary osteoarthritis of both knees 06/20/2015 Primary osteoarthritis of right hip 07/30/2023 S/P total left hip arthroplasty 04/22/2024 S/P total right hip arthroplasty 06/26/2023 PAST SURGICAL HISTORY Procedure Laterality Date AMPUTATION TOE,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 ARTHROSCOPY KNEE DIAGNOSTIC W/WO SYNOVIAL BX SPX Arthroscopy, knee COLONOSCOPY 05/30/2022 Tubular Adenoma-repeat in 3 years COLONOSCOPY FLX DX W/COLLJ SPEC WHEN PFRMD years ago Colonoscopy COLONOSCOPY FLX DX W/COLLJ SPEC WHEN PFRMD 10/13/2013 Colonoscopy COLONOSCOPY FLX DX W/COLLJ SPEC WHEN PFRMD 03/14/2016 Colonoscopy COLONOSCOPY FLX DX W/COLLJ SPEC WHEN PFRMD 11/09/2018 Colonoscopy COLSC FLX W/RMVL OF TUMOR POLYP LESION SNARE TQ 06/15/2010 PAST SURGICAL HISTORY OF 1960 bladder surgery to enlarge opening PAST SURGICAL HISTORY OF uvulectomy for SANDRA SIGMOIDOSCOPY FLX DX W/COLLJ SPEC BR/WA IF PFRMD 12/06/2013 Sigmoidoscopy, flexible THYROIDECTOMY TOTAL/COMPLETE 2004 TOTAL HIP REPLACEMENT Right 06/25/2023 TOTAL HIP REPLACEMENT Left 04/21/2024 ALLERGIES Latex MEDICATIONS Current Outpatient Medications Medication Sig donepezil (ARICEPT) 5 mg tablet TAKE 1 TABLET BY MOUTH DAILY AFTER BREAKFAST. cyanocobalamin (VITAMIN B-12) 1,000 mcg tab Take 1 tablet by mouth once daily. doxycycline (VIBRA-TABS) 100 mg tablet Take 100 mg by mouth two times a day. 45 days allopurinol (ZYLOPRIM) 300 mg tablet Take 1 tablet by mouth once daily. For gout. amLODIPine (NORVASC) 10 mg tablet Take 1 tablet by mouth once daily. PLEASE MAIL TO PATIENT;S HOME - PILL FILI furosemide (LASIX) 40 mg tablet Take 1 tablet by mouth once daily. PLEASE MAIL TO PATIENT;S HOME - PILL FILI lisinopril (ZESTRIL) 40 mg tablet Take 1 tablet by mouth once daily. PLEASE MAIL TO PATIENT'S HOME - PILL FILI pravastatin (PRAVACHOL) 10 mg tablet Take 1 tablet by mouth once daily. PLEASE MAIL TO PATIENT'S HOME - PILL FILI silver sulfADIAZINE (SILVADENE) 1 % cream levothyroxine (LEVOXYL) 150 mcg tablet Take 1 tablet by mouth once daily. Mon-Fri and none on Friday. PLEASE MAIL TO PATIENT'S HOME - PILL FILI potassium chloride 20 mEq TbER Take 1 tablet by mouth once daily. acetaminophen (TYLENOL) 500 mg tablet Take 2 tablets by mouth every 8 hours as needed for pain. polyethylene glycol 3350 17 gram packet Take 1 Packet by mouth once daily. Dissolve dose in 4 - 8 ounces of liquid and take as directed. No current facility-administered medications for this visit. FAMILY HISTORY Problem Relation Age of Onset Hypertension Mother Dementia Mother Heart Father fluid on heart Glaucoma Father Colon Cancer Father Str (more content not included)... Normal [facility] Magnesium SerPl-mCncon 02-01 Magnesium [Mass/Vol] 2.4 mg/dL High 1.7-2.3 [facility] Comment on above: Order Comment: Speci men Type: BLOOD SPECIMENOrdering Facility: [facility] Address: [address] [place] [address] Performed By: #### 1 9123-9, 78067-7 ####[facility] [id number] [place] [address] [place] Wheel Presser Office Visit Reporton 01-31-2025 Wheel Presser Office Visit Report [facility]'[address], [address] [place] [id number] OFFICE VISIT Date of Service: 01/31/25 MR#: [id number] Acct: [id number] Name: MÓNICA DECKER Rep #: [id number] : 1950 Provider: Dr. 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 Is patient in pain?: No Allergies Latex, Natural Rubber Allergy (Mild, Verified 01/31/25 09:23) Rash Medications ???Medication ???Instructions ???Recorded ???Confirmed ???Type levothyroxine 137 mcg tablet 150 mcg PO DAILY thyroid 01/06/20 01/31/25 History lisinopril 10 mg tablet 40 mg PO DAILY blood pressure 12/2501/31/25 History amlodipine 10 mg tablet (Norvasc) 10 mg PO DAILY 08/06/24 01/31/25 History furosemide 40 mg tablet (Lasix) 40 mg PO DAILY 08/06/24 01/31/25 H istory pravastatin 10 mg tablet 10 mg PO QHS 08/06/24 01/31/25 His tory allopurinol 300 mg tablet 300 mg PO QDAY 12/10/24 01/31/25 H istory mecobalamin (vitamin B12) 1,000 1,000 mcg PO QDAY 12/10/24 5 History mcg chewable tablet potassium chloride 20 mEq 20 meq PO QDAY 12/10/24 01/31/25 H istory tablet,extended release donepezil 5 mg tablet 5 mg PO DAILY 01/04/25 01/31/25 Hi story doxycycline hyclate 100 mg tablet 100 mg PO BID 01/04/25 01/31/25 H istory Post menopausal: No Patient : No : No PFSH Medical History Post-menopausal Depression Anxiety Dementia Open wound Arthritis Non-smoker Shortness of breath on exertion Urinary incontinence Gout Hypothyroid High cholesterol HTN (hypertension) Surgical History S/P D C (status post dilation and curettage) Status post amputation of finger S/P bladder repair History of left hip replacement H/O thyroidectomy History of right hip replacement Family History Father Colon cancer Mother Hypertension Social History Smoking Status: Never smoker additional social history: Single HPI 2 wk D C Details: MÓNICA DECKER is a 74 year old who presents for 2 week post op follow up. She is status post a D C and pathology showed a benign polyp History 0 Elective abortions Hx Para Spontaneous abortions Hx # Term Pregnancies Ectopic pregnancies Hx # Pregnancies Multiple births # of living children ROS Const ROS Unobtainable: All systems reviewed are unremarkable except as noted in H Resp Resp: Reports system reviewed and no additional complaints, except as documented; Denies cough GI GI: Reports as per HPI Psych Psych: Reports system reviewed and no additional complaints, except as documented Exam Const General: cooperative, healthy appearing, comfortable and no acute distress Resp Effort Inspection: normal respiratory effort Skin General: no rashes or lesions noted Psych Appearance: grossly normal Speech and Movement: speech and movement normal Coding Level of Care Code Off vis,est,level 3 Diagnoses Postmenopausal bleeding N95.0 Thickened endometrium R93.89 Assessment and Plan Assessment and Plan (1) Postmenopausal bleeding: Status: Acute (2) Thickened endometrium: Status: Acute Plan patient reassured of benign biopsy. recommend that she follows up with plastics for the HS. it is severe or moderate at best. Continue doxycycline and Chlorhexadine wash. 01/31/25 1002 Date Shayla Wallis Signature: Date (if applicable) [facility]: [facility] (PODIWS ) MÓNICA DECKER ([id number]) 1950 F NFR Date Time Provider Department 01/28/25 2:00 PM LÓPEZ RANDALL PODIWS During your visit today, we recorded the following information about you: López Randall 01/28/2025 2:24 PM Signed Subjective: Patient presents to clinic c/o painful toenails. They state that the nails are especially painful with shoe gear and pressure. Patient states that nails 1-5 b/l are painful. No other pedal complaints at this time. Patient states no change in medications or medical history since last visit. Objective: Patient presents to clinic ambulating in tennis shoes Vasc: DP and PT pulses are palpable bilateral. CFT is less than 5 seconds bilateral. Skin temperature is warm to cool proximal to distal bilateral. There is no edema or varicosities noted. Neuro: Protective sensation is intact to the foot and toes when tested with the 5.07 SWM bilateral. Vibratory sensation is decreased at the hallux IPJ bilateral. The hallux is downgoing bilateral. Derm: Nails 1-5 b/l are painful, discolored-yellow, thick, crumbly, dystrophic and with subungal debris. Skin is of normal turgor, texture and hair growth is decreased bilateral. There are callus to b/l hallux. No ulceration. Ortho: Muscle strength is 5/5 for all pedal groups tested. Ankle joint DF is full with the knee extended with no pain or crepitus noted. 1st MPJ ROM is decreased bilateral. Large bunion is present to b/l feet Assessment: (B35.1) Onychomycosis (primary encounter diagnosis) (M79.675) Pain in toe of left foot (M79.674) Pain in toe of right foot Plan: Patient was seen and evaluated. Nails 1-5 bilateral were debrided in length and thickness. Small bleed to right 3rd toe. Band aide applied. Callus reduced with dremmel Patient is to RTC in 3-4 months. López Randall DPM Referring Provider: LÓPEZ RANDALL [[id number]] Allergies As of Date: 01/28/2025 Noted Allergy Reaction LATEX 03/07/2021 16 - Unknown Date Reviewed: 01/28/2025 Reviewed by: Erma Sahu MA - Fully Assessed Reason for Visit: Follow Up [171] Follow Up [171] Nail Care [Other] Primary Visit Diagnosis:Onychomycosi s [B35.1] Other Visit Diagnoses:Pain in toe of left foot [M79.675] Pain in toe of right foot [M79.674] Ingrown toenail [L60.0] Prescriptions as of 01/28/2025 - donepezil (ARICEPT) 5 mg tablet TAKE 1 TABLET BY MOUTH DAILY AFTER BREAKFAST. - cyanocobalamin (VITAMIN B-12) 1,000 mcg tab Take 1 tablet by mouth once daily. - doxycycline (VIBRA-TABS) 100 mg tablet Take 100 mg by mouth two times a day. 45 days - allopurinol (ZYLOPRIM) 300 mg tablet Take 1 tablet by mouth once daily. For gout. - amLODIPine (NORVASC) 10 mg tablet Take 1 tablet by mouth once daily. PLEASE MAIL TO PATIENT;S HOME - PILL FILI - furosemide (LASIX) 40 mg tablet Take 1 tablet by mouth once daily. PLEASE MAIL TO PATIENT;S HOME - PILL FILI - lisinopril (ZESTRIL) 40 mg tablet Take 1 tablet by mouth once daily. PLEASE MAIL TO PATIENT'S HOME - PILL FILI - pravastatin (PRAVACHOL) 10 mg tablet Take 1 tablet by mouth once daily. PLEASE MAIL TO PATIENT'S HOME - PILL FILI - silver sulfADIAZINE (SILVADENE) 1 % cream - levothyroxine (LEVOXYL) 150 mcg tablet Take 1 tablet by mouth once daily. Mon-Fri and none on Friday. PLEASE MAIL TO PATIENT'S HOME - PILL FILI - potassium chloride 20 mEq TbER Take 1 tablet by mouth once daily. - acetaminophen (TYLENOL) 500 mg tablet Take 2 tablets by mouth every 8 hours as needed for pain. - polyethylene glycol 3350 17 gram packet Take 1 Packet by mouth once daily. Dissolve dose in 4 - 8 ounces of liquid and take as directed. Problem List As Of Date 01/28/2025 Noted Resolved SANDRA (obstructive sleep apnea) [G47.33] 07/08/2005 Allergic rhinitis [J30.9] 07/08/2005 Essential hypertension, benign [I10] 07/08/2005 NONTOX NODUL GOITER NOS [E04.9] 07/08/2005 09/04/2005 Postsurgical hypothyroidism [E89.0] 09/04/2005 Primary osteoarthritis of both hips [M16.0] 06/20/2015 Primary osteoarthritis of both knees [M17.0] 06/20/2015 Personal history of colonic polyps [Z86.0100] 03/14/2016 Hyperlipidemia, mixed [E78.2] 02/05/2018 Medicare annual wellness visit, subsequent [Z00*08/27/2018 Well adult exam [Z00.00] 08/27/2018 03/25/2020 Elevated hemoglobin A1c [R73.09] 08/27/2018 Screening for colon cancer [Z12.11] 08/27/2018 OAB (overactive bladder) [N32.81] 12/19/2020 Hammer toes of both feet [M20.41, M20.42] 01/24/2021 Foot callus [L84] 01/24/2021 Dystrophic nail [L60.3] 01/24/2021 Acute idiopathic gout involving toe of right fo*01/24/2021 Obesity, Class II, BMI 35-39.9 [E66.812] 02/19/2021 Advance directive discussed with patient [Z71.8*02/14/2022 Dermatitis [L30.9] 01/09/2023 Bilateral hip pain [M25.551, M25.552] 06/05/2023 S/P total right hip arthroplasty [Z96.641] 06/26/2023 S/P total left h (more content not included)... Normal [facility] Discharge Instructionon 12-26 Discharge Instruction [facility] Medical Records Department [address] [place] [address] Instructions for Home/Discharge Instructions 01/18/25 1019 MR#: [id number] Acct: [id number] Name: MÓNICA DECKER Rep #: [id number] : 1950 74 From: Shayla Fay DO PCP: Dr. Mateo Marmolejo MD [place] [facility] [place] Instructions Diet Discharge Diet: No restrictions DC O2, CPAP, BIPAP needs Home O2 Discharge instructions: No Dressing / Incision Discharge Activity: Return to Normal Activity, May Shower and May Take a Tub Bath (after 1 week) May resume sexual activity in: 1-2 weeks Weight Bearing Status: Weight bearing as tolerated Lifting Restrictions: none Dressing / Incision Call your doctor if you observe: Fever of 101 or Higher, Using more than 1 pad per hour, Shortness of breath and Uncontrolled pain Follow Up Care Please Follow Up With: Shayla Fay DO When: Call [phone] to schedule appointment. Test Results: Test results from this visit will be discussed in further detail at your follow-up appointment, if applicable. Discharge Plan Admission Primary Reason for Your Visit: hysteroscopy dilation and curettage Attending Provider: Shayla Fay Primary Care Provider: Mateo Marmolejo Instructions Print Language: Malaysian Discharge Orders/Prescriptions Prescriptions: Continued allopurinol 300 mg tablet 300 mg PO QDAY potassium chloride 20 mEq tablet extended release 20 meq PO QDAY mecobalamin (vitamin B12) 1,000 mcg tablet,chewable 1,000 mcg PO QDAY levothyroxine 137 MCG tablet 150 mcg PO DAILY lisinopril 10 MG tablet 40 mg PO DAILY amlodipine [Norvasc] 10 mg tablet 10 mg PO DAILY furosemide [Lasix] 40 mg tablet 40 mg PO DAILY pravastatin 10 mg tablet 10 mg PO QHS doxycycline hyclate 100 mg tablet 100 mg PO BID donepezil 5 mg tablet 5 mg PO DAILY Referrals / Follow Up: Mateo Marmolejo MD [Primary Care Provider] - Disposition Disposition (needs filled in before D/C Order can be placed): Home, Self Care 01/18/25 1019 Shayla Vianca Green DO CC: Dr. Mateo Marmolejo MD Signed [facility] MR/POSTOP.[facility] 01-18-2025 MR/POSTOP.[facility] Medical Records Department [address] [place] [address] Anesthesia Postop Eval I 01/18/25 1133 MR#: [id number] Acct: [id number] Name: MÓNICA DECKER Rep #: [id number] : 1950 74 From: Christina Crowder CRNA PCP: Dr. Mateo Marmolejo MD [place] [facility] [place] Race[place] C Location: [place] [address] Anesthesia: Postop Eval I Current Vital Signs Temperature: 97 F Pulse Rate: 60 Blood Pressure: 103/69 Respiratory Rate: 16 Pulse Ox: 98 Oxygen Delivery Method: Room Air Assessment Airway patent: Yes Spontaneous unlabored respirations: Yes Mental status: Awake and Calm nausea: No Vomiting: No Anesthesia Complication: No Fluid Hydration Crystalloid volume administer (ml): 10 Total IV fluid infused: 10 Progress Note Anesthesia document: Postop Eval 1 completed: Yes 01/18/25 1134 Date Christina Crowder 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 Mateo Marmolejo MD [place] [facility] [place] Race: C [place] [facility] [place]esthesia Postop Eval I Sum Postop Eval Completion status Anesthesia document: Postop Eval 1 completed: Yes Anesthesia Postop Eval I Summary Anesthesia Postop Eval I Summary: Anesthesia Postop Eval I: Assessment Summary Airway patent Yes 01/18/25 11:34 [email or web address] Spontaneous unlabored Yes 01/18/25 11:34 [email or web address] respirations Mental status Awake,Calm 01/18/25 11:34 [email or web address] nausea No 01/18/25 11:34 [email or web address] Vomiting No 01/18/25 11:34 [email or web address] Anesthesia Postop Eval I: Fluid Summary Crystalloid volume administer 10 01/18/25 11:34 [email or web address] (ml) Colloids volume administered ( ml) Blood Product volume administered (ml) Total IV fluid infused 10 01/18/25 11:34 [email or web address] Anesthesia Postop Eval I: Summary Notes Anesthesia Complication No 01/18/25 11:34 [email or web address] Anesthesia Complication Comment: Post-operative progress note Anesthesia: Postop Eval II Evaluation Mental status: Awake and Calm Pain Level: 1 nausea: No Vomiting: No Complications Anesthesia Complication: No 01/18/251926 Date Jimmy Musa MD Cosigner Signature: Date CC: Signed Normal [facility] Operative Reporton Operative Report [facility] Medical Records Department [address] [place] [address] Operative Report 01/18/25 1142 MR#: [id number] Acct: [id number] Name: MÓNICA DECKER Rep #: [id number] : 1950 74 From: Shayla Fay DO PCP: Dr. 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 Type of Anesthesia: MAC and Topical Anesth RN Documented Start/Stop Times: Operation Date: 01/18/25 10:10 Case Time Into Pre-Op 01/18/25 08:19 Anesthesia Start 01/18/25 10:54 Into Room 01/18/25 10:54 Procedure Start 01/18/25 11:12 Procedure End 01/18/25 11:24 Anesthesia End 01/18/25 11:30 Out of Room 01/18/25 11:30 Into Recovery 01/18/25 11:35 Procedure Start Time: 11:12 Procedure Stop Time: 11:30 Select all DRAINS/GRAFTS/IMPLANTS that apply: None Estimated Blood Loss: 5cc Specimen collected: Yes Description of specimen(s) removed: endometrial curetting's Description of surgery: Patient was prepped and draped in a normal sterile fashion under MAC anesthesia. A weighted speculum was placed in the vagina and the anterior lip of the cervix was grasped with a single-tooth tenaculum. A paracervical block was placed with 1% lidocaine. Cervix was progressively dilated to allow passage of a 5 mm hysteroscope. The lining was fully visualized and noted to have a polyp looking structure at the fundus . A Curettage was performed and [the specimen was sent to pathology. All instruments were removed from the vagina and excellent hemostasis was noted. Patient was awoken and taken to recovery in stable condition. Surgical Findings: likely endometrial polyp. multiple healing and active groin abscesses (hidradenitis suppurativa) Complications Complications: No Admit VTE Documentation VTE Present on Admission: No VTE Mechan Device Prophylaxis: SCD's VTE Pharm Prophylaxis ordered?: No 01/18/25 1144 Cosigner Signature (if applicable): CC: Dr. Mateo Marmolejo MD; Dr. Shayla Fay DO Signed Normal [facility] Surgery Specimen Level Haim 01-18-2025 Surgery Specimen Level IV ---- Patient Age/Sex Location Account Attending Physician ---- MÓNICA DECKER 74/[place] [facility] [place] [id number] Radhika Brito ---- Specimen: [id number] Received: 01/18/25 Status: KERI Skinner Num: [id number] Spec Type: ENDOM BX/C Subm Dr: Dr. Shayla Fay DO HEADER OPERATION: Hysterectomy, Radhika Gardner PRE-OP DIAGNOSIS: Thickened endometrium, postmenopausal bleeding TISSUE SUBMITTED: A- Endometrial curettings ---- MICROSCOPIC DIAGNOSIS A. ENDOMETRIUM, DILATION AND CURETTAGE: -ENDOMETRIAL POLYP. BENIGN. MICROSCOPIC DESCRIPTION Slides are reviewed. GROSS DESCRIPTION A. Received in formalin labeled, Mónica Decker, and designated endometrial curettings, are multiple pink-amor to red-brown, irregularly-shaped, soft tissue fragments and mucus that aggregate to 2.5 x 2.2 x 0.2 cm. Totally submitted in one cassette. EDELMIRA 01/18/2025 CPT:26199 ---- Patient Age/Sex Location Account Attending Physician ---- MÓNICA DECKER 74/[place] [facility] [id number] Radhika Brito ---- Signed (signature on file) Dr. Rachel Arreaga MD 01/21/25 1753 ---- Normal [facility] Comment on above: Performed By: #### P SUIV #### [facility] [address] [place], [address] 25(OH)D3 [facility] 25-hydroxyvitamin D3 [Mass/Vol] 45.2 ng/mL Normal 31.0-80.[address] [facility] Comment on above: Order Comment: Speci men Type: BLOOD SPECIMENOrdering Facility: [facility] Address: [address] [place] [address] Result Comment: Clas sification of 25 [place] Vitamin D status: Deficiency/Insufficiency: < or = 30 ng/ml. Sufficiency/Optimal Levels: 31-80 ng/mL Toxicity: > 100 ng/mL. Test performed by chemiluminescent immunoassay. Performed By: #### 1 989-3 ####[facility] LAB[facility] [id number] [place] [address] [place] CNOVon 01-07-2025 CNOV Office Visit (FAMPWS ) MÓNICA DECKER ([id number]) 1950 F NFR Date Time Provider Department 01/07/25 10:40 AM RAMIRO DOMINGUEZ During your visit today, we recorded the following information about you: Pulse Blood pressure Weight 64/minute 133/75 75 kg Ramiro Dominguez APRN.FINISHING TUNNEL OPERATOR 01/07/2025 1:45 PM Addendum Chief Complaint Patient presents with: 6 Month Exam HPI Mónica Decker is a 74 year old female who presents here today for Above Complaints.. Patient presents today for annual physical and pre-op clearance. Patient states that she has had a semi productive cough and sore throat for a couple of weeks. Patient states she has been taking cough drops which have been helping with her sore throat. She is also having some chest soreness and tightness. Patient denies fever, ear pain, sinus pressure, chills and vomiting, but she does get nauseated after coughing. Patient is currently taking doxy for her abscess. Patient states she does not take her blood pressures at home, but she denies headaches and swelling. Patient states she did her EKG at the hospital yesterday. Past medical history, appointments, medications, allergies reviewed. Previous Medical History PAST MEDICAL HISTORY Diagnosis Date 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 01/24/2021 Adenomatous colon polyp Allergic rhinitis 07/08/2005 Bilateral hip pain 06/05/2023 Dystrophic nail 01/24/2021 multiple bilateral toes. Elevated hemoglobin A1c 08/27/2018 Essential hypertension, benign 07/08/2005 Fracture left forearm and right radial head Hammer toes of both feet 01/24/2021 Hyperlipidemia, mixed 02/05/2018 As of 02/05/18 patient declines statin therapy. Low vitamin B12 level 07/26/2024 Medicare annual wellness visit, subsequent 08/27/2018 Medicare part B: 02/24/2014 last done: 08/27/2019 Morbid (severe) obesity due to excess calories (HCC) 02/06/2006 OAB (overactive bladder) 12/19/2020 Declines medication as of 12/19/20 Obesity, Class II, BMI 35-39.9 02/19/2021 SANDRA (obstructive sleep apnea) 07/08/2005 Had corrective surgery Personal history of colonic polyps 03/14/2016 Postsurgical hypothyroidism 09/04/2005 Primary osteoarthritis of both hips 06/20/2015 Primary osteoarthritis of both knees 06/20/2015 Primary osteoarthritis of right hip 07/30/2023 S/P total left hip arthroplasty 04/22/2024 S/P total right hip arthroplasty 06/26/2023 Previous Surgical History PAST SURGICAL HISTORY Procedure Laterality Date AMPUTATION TOE,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 ARTHROSCOPY KNEE DIAGNOSTIC W/WO SYNOVIAL BX SPX Arthroscopy, knee COLONOSCOPY 05/30/2022 Tubular Adenoma-repeat in 3 years COLONOSCOPY FLX DX W/COLLJ SPEC WHEN PFRMD years ago Colonoscopy COLONOSCOPY FLX DX W/COLLJ SPEC WHEN PFRMD 10/13/2013 Colonoscopy COLONOSCOPY FLX DX W/COLLJ SPEC WHEN PFRMD 03/14/2016 Colonoscopy COLONOSCOPY FLX DX W/COLLJ SPEC WHEN PFRMD 11/09/2018 Colonoscopy COLSC FLX W/RMVL OF TUMOR POLYP LESION SNARE TQ 06/15/2010 PAST SURGICAL HISTORY OF 1960 bladder surgery to enlarge opening PAST SURGICAL HISTORY OF uvulectomy for SANDRA SIGMOIDOSCOPY FLX DX W/COLLJ SPEC BR/WA IF PFRMD 12/06/2013 Sigmoidoscopy, flexible THYROIDECTOMY TOTAL/COMPLETE 2004 TOTAL HIP REPLACEMENT Right 06/25/2023 TOTAL HIP REPLACEMENT Left 04/21/2024 Family History FAMILY HISTORY Problem Relation Age of Onset Hypertension Mother Dementia Mother Heart Father fluid on heart Glaucoma Father Colon Cancer Father Stroke Brother Strabismus Brother Detached Retina Brother Patient Allergies ALLERGIES Allergen Reactions Latex Unknown Current Medications Current Outpatient Medications on File Prior to Visit Medication Sig doxycycline (VIBRA-TABS) 100 mg tablet Take 100 mg by mouth two times a day. 45 days donepezil (ARICEPT) 5 mg tablet Take 1 tablet by mouth daily after breakfast. allopurinol (ZYLOPRIM) 300 mg tablet Take 1 tablet by mouth once daily. For gout. amLODIPine (NORVASC) 10 mg tablet Take 1 tablet by mouth once daily. PLEASE MAIL TO PATIENT;S HOME - PILL FILI furosemide (LASIX) 40 mg tablet Take 1 tablet by mouth once daily. PLEASE MAIL TO PATIENT;S HOME - PILL FILI lisinopril (ZESTRIL) 40 mg tablet Take 1 tablet by mouth once daily. PLEASE MAIL TO PATIENT'S HOME - PILL FILI pravastatin (PRAVACHOL) 10 mg tablet Take 1 tablet by mouth once daily. PLEASE MAIL TO PATIENT'S HOME - PILL FILI amoxicillin (AMOXIL) 500 mg capsule Please take 4 capsules by mouth 1 (one) hour prior to your dental appointment. (Patient not taking: Reported on 12/29/2024) cephALEXin (KEFLEX) 500 mg capsule EVERY 6 HOURS (Patient not taking: Reported on 12/29/2024) silver sulfADIAZINE (SILVADENE) 1 % cream carbamide peroxide (DEBROX) 6.5 % otic solution Use 5 Drops in both ears two times a day. (Patient not taking: Reported (more content not included)... Normal [facility] Electrocardiogram reportOrde red By: Orlando Thomson on 01-07-[address] [facility] [address] [place] [address] 12 Lead EKG 01/06/25 1106 MR#: [id number] Acct: [id number] Name: MÓNICA DECKER Rep #:[id number] : 1950 74 From: Orlando molina MD Attending Dr: Dr. Shayla Fay DO Status: PRE IDC Ordering Dr: Shayla Fay ate: 01/06/25 [place] [facility] [place]: F C Admitted: Test Reason : PREOP Blood Pressure : */* mmHG Vent. Rate : 54 BPM Atrial Rate : 54 BPM P-R Int : 164 ms QRS Dur : 82 ms QT Int : 410 ms P-R-T Axes : 53 15 33 degrees QTcB Int : 388 ms Sinus bradycardia Otherwise normal ECG Confirmed by BERTO JULES, JOE ([id number]), technical editor SHOLA GONZALEZ ([id number]) on01/07/2025 1:13:57 PM Referred By: Shayla Fay Confirmed By: JOE THOMSON MD 01/07/25 1313 Date _ Orlando Thomson MD CC: Dr. Mateo Marmolejo MD; Dr. Shayla Fay DO ~ Signed [facility] Work Phone: HbA1c (Bld)on 01-07-2025 Average glucose Estimated from glycated hemoglobin (Bld) [Mass/Vol] 111 mg/dL Normal [facility] Comment on above: Order Comment: Jeri felix Type: BLOOD SPECIMENOrdering Facility: [facility] Address: [address] [place] [address] Result Comment: eAG: (Estimated average glucose) is a calculated value from HgbA1c and is personal banking representative of the average blood glucose level in the last 2-3 month period. Performed By: #### 5 5454-3 ####[facility] LABCLIA [id number] [place] [address] [place] HbA1c (Bld) [Mass fraction] 5.5 % Normal 4.3-5.[address] [facility] Comment on above: Order Comment: Jeri felix Type: BLOOD SPECIMENOrdering Facility: [facility] Address: [address] [place] [address] Result Comment: Amer ican Diabetes Association guidelines indicate that patients with HgbA1c in the range 5.7-6.4% are at increased risk for development of diabetes, and intervention by lifestyle modification may be beneficial. HgbA1c greater or equal to 6.5% is considered diagnostic of diabetes. Performed By: #### 5 5454-3 ####[facility] LAB[facility]IA [id number] [place] [address] [place] LIPID PANEL, NONFASTINGon Cholesterol [Mass/Vol] 164 mg/dL Normal <200 [facility] Comment on above: Order Comment: Jeri felix Type: BLOOD SPECIMENOrdering Facility: [facility] Address: [address] [place] [address] Result Comment: <200 mg/dL, Desirable 200-239 mg/dL, Borderline high >239 mg/dL, High Performed By: #### 3 016-3, LIPNF ####[facility] LABCLIA [id number] [place] [address] [place] HDL CHOLESTEROL, NF 77 mg/dL Normal >39 [facility] Comment on above: Order Comment: Speci isidro Type: BLOOD SPECIMENOrdering Facility: [facility] Address: [address] [place] [address] Result Comment: 40-5 9 mg/dL, Acceptable >59 mg/dL, High: Negative risk factor for coronary heart disease <40 mg/dL, Low: Positive risk factor for coronary heart disease Performed By: #### 3 016-3, LIPNF ####[facility] LABCLIA [id number] [address] LDL CHOLESTEROL, NF 75 mg/dL Normal <100 [facility] Comment on above: Order Comment: Valemyranda felix Type: BLOOD SPECIMENOrdering Facility: [facility] Address: [address] [place] [address] Result Comment: <100 mg/dL, Optimal 100-129 mg/dL, Near optimal/above optimal 130-159 mg/dL, Borderline high 160-189 mg/dL, High >189 mg/dL, Very high Secondary prevention optimal LDL Cholesterol levels are recommended to be < 70 mg/dL Performed By: #### 3 016-3, LIPNF ####[facility] LABCLIA [id number] [address] LDL/HDL RATIO, NF 0.97 mg/dL Normal <2.54 [facility] Comment on above: Order Comment: Jeri felix Type: BLOOD SPECIMENOrdering Facility: [facility] Address: [address] [place] [address] Result Comment: Refe rence: 1. National Cholesterol Education Program ATP III Guideline At-A-Glance Quick Desk Reference: National Heart, Lung, and Blood [place]. National Institutes of Health. 2001: NIH Publication No. 01-3305. 2. An International Atherosclerosis Society position paper: global recommendations for the management of dyslipidemia: executive summary, Atherosclerosis. 2014: 232(2):410-413. Performed By: #### 3 016-3, LIPNF ####[facility] LABCLIA [id number] [place] [address] [place] NON HDL CHOL, NF 87 mg/dL Normal <130 [facility] Comment on above: Order Comment: Speci men Type: BLOOD SPECIMENOrdering Facility: [facility] Address: [address] [place] [address] Result Comment: <130 mg/dL, Optimal 130-159 mg/dL, Near optimal/above optimal 160-189 mg/dL, Borderline high 190-219 mg/dL, High >219 mg/dL, Very high Secondary prevention optimal non HDL Cholesterol levels are recommended to be <100 mg/dL Performed By: #### 3 016-3, LIPNF ####[facility] LABCLIA [id number] [place] [address] [place] T CHOL/HDL RATIO NF 2.13 mg/dL Normal <5.10 [facility] Comment on above: Order Comment: Speci men Type: BLOOD SPECIMENOrdering Facility: [facility] Address: [address] [place] [address] Performed By: #### 3 016-3, LIPNF ####[facility] LABCLIA [id number] [place] [address] [place] TRIGLYCERIDES, NF 62 mg/dL Normal <150 [facility] Comment on above: Order Comment: Speci men Type: BLOOD SPECIMENOrdering Facility: [facility] Address: [address] [place] [address] Result Comment: <150 mg/dL, Normal 150-199 mg/dL, Borderline high 200-499 mg/dL, High >499 mg/dL, Very high Performed By: #### 3 016-3, LIPNF ####[facility] LABCLIA [id number] [place] [address] [place] VLDL CHOLESTEROL, NF 12 mg/dL Normal <30 [facility] Comment on above: Order Comment: Speci men Type: BLOOD SPECIMENOrdering Facility: [facility] Address: [address] [place] [address] Performed By: #### 3 016-3, LIPNF ####[facility] LABCLIA [id number] [place] [address] [place] TSH SerPl-aCncon 01-07-2025 TSH Qn 0.842 m[IU]/L Normal 0.270-4.[address] [facility] Comment on above: Order Comment: Speci men Type: BLOOD SPECIMENOrdering Facility: [facility] Address: [address] [place] [address] Performed By: #### 3 016-3, LIPNF ####[facility] LABCLIA [id number] [address] [place] XR CHEST 2V FRONTAL/LATon XR CHEST 2V FRONTAL/LAT * * *Final Repor t* * * DATE OF EXAM: Jan 07 2025 11:41AM WOX [id number] - XR CHEST 2V FRONTAL/LAT / PROCEDURE REASON: multiple diagnoses * * * * Physician Interpretation * * * * EXAMINATION: CHEST RADIOGRAPH (2 VIEW FRONTAL and LATERAL) CLINICAL HISTORY: Subacute cough Preop examination MQ: XC2_6 EXAM DATE/TIME: 01/07/2025 11:41 AM COMPARISON: 03/25/2012 RESULT: Lines, tubes, and devices: None. Lungs and pleura: No consolidation. No lung mass. No pleural effusion. No pneumothorax. Cardiomediastinal silhouette: Stable borderline cardiomediastinal silhouette. Bones and soft tissues: Significant degenerative change involving both shoulders. Multilevel degenerative change throughout the spine IMPRESSION: No acute radiographic abnormality. Credit Control Assistant: [facility] Transcribe Date/Time: Jan 07 2025 11:44A Dictated by : MAC MATTSON MD This examination was interpreted and the report reviewed and electronically signed by: MAC MATTSON MD on Jan 07 2025 11:46AM EST [id number] Normal [facility] XR Chest PA and Lateralon IMPRESSION: No acute radiographic abnormality. Credit Control Assistant: [facility] Transcribe Date/Time: Jan 07 2025 11:44A Dictated by : MAC MATTSON MD This examination was interpreted and the report reviewed and electronically signed by: MAC MATTSON MD on Jan 07 2025 11:46AM [facility] DIVISION OF RADIOLOGY * * *Final Report* * * DATE OF EXAM: Jan 07 2025 11:41AM WOX [id number] - XR CHEST 2V FRONTAL/LAT / PROCEDURE REASON: multiple diagnoses * * * * Physician Interpretation * * * * EXAMINATION: CHEST RADIOGRAPH (2 VIEW FRONTAL & LATERAL) CLINICAL HISTORY: Subacute cough Preop examination MQ: XC2_6 EXAM DATE/TIME: 01/07/2025 11:41 AM COMPARISON: 03/25/2012 RESULT: Lines, tubes, and devices: None. Lungs and pleura: No consolidation. No lung mass. No pleural effusion. No pneumothorax. Cardiomediastinal silhouette: Stable borderline cardiomediastinal silhouette. Bones and soft tissues: Significant degenerative change involving both shoulders. Multilevel degenerative change throughout the spine DIVISION OF RADIOLOGY Provider, Purnima Melo [facility] - 01/07/2025 * * *Final Report* * * DATE OF EXAM: Jan 07 2025 11:41AM WOX [id number] - XR CHEST 2V FRONTAL/LAT / PROCEDURE REASON: multiple diagnoses * * * * Physician Interpretation * * * * EXAMINATION: CHEST RADIOGRAPH (2 VIEW FRONTAL & LATERAL) CLINICAL HISTORY: Subacute cough Preop examination MQ: XC2_6 EXAM DATE/TIME: 01/07/2025 11:41 AM COMPARISON: 03/25/2012 RESULT: Lines, tubes, and devices: None. Lungs and pleura: No consolidation. No lung mass. No pleural effusion. No pneumothorax. Cardiomediastinal silhouette: Stable borderline cardiomediastinal silhouette. Bones and soft tissues: Significant degenerative change involving both shoulders. Multilevel degenerative change throughout the spine IMPRESSION IMPRESSION: No acute radiographic abnormality. Credit Control Assistant: [facility] Transcribe Date/Time: Jan 07 2025 11:44A Dictated by : MAC MATTSON MD This examination was interpreted and the report reviewed and electronically signed by: MAC MATTSON MD on Jan 07 2025 11:46AM [facility] Radiology Study observation (narrative) Sol Hyatt XR Chest PA and LateralOrder ed By: [facility]cf Provider on 01-07-2025 [facility] 12 Lead EKGon 01-06-[address] [facility] [address] [place] [address] 12 Lead EKG 01/06/25 1106 MR#: [id number] Acct: [id number] Name: MÓNICA DECKER Rep #: [id number] : 1950 74 From: Orlando Thomson MD Attending Dr: Dr. Shayla Fay DO Statu s: PRE SDC Ordering Dr: Shayla Fay DO Date: 5 [place] [facility] [place]: F C Admitted: Test Reason : PREOP Blood Pressure : */* mmHG Vent. Rate : 54 BPM Atrial Rate : 54 BPM P-R Int : 164 ms QRS Dur : 82 ms QT Int : 410 ms P-R-T Axes : 53 15 33 degrees QTcB Int : 388 ms Sinus bradycardia Otherwise normal ECG Confirmed by BERTO JULES, JOE ([id number]), technical editor SHOLA GONZALEZ ([id number]) on 01/07/2025 1:13:57 PM Referred By: Shayla Fay Confirmed By: JOE THOMSON MD 01/07/25 1313 Date Orlando Thomson MD CC: Dr. Mateo Marmolejo MD; Dr. Shayla Fay DO Signed Normal [facility] Anion gap in Serum or Plasma Ordered By: Shayla rGeen on 01-06-2025 Anion gap [Moles/Vol] 14 mmol/L 5-15 [facility] BUN/creatinine ratioOrdered By: Shayla Green on 01-06-2025 Urea nitrogen/Creatinine [Mass ratio] 24.2 mg/mg High 10-20 [facility] Bilirubin, totalOrdered By: Shayla Green on 01-06-2025 Bilirubin [Mass/Vol] 0.86 mg/dL 0.00-1.30 [facility] CBC-Complete Blood Cnt No Di ffon 01-06-2025 Erythrocyte distribution width (RBC) [Ratio] 13.4 % Normal 11.6-14.6 [facility] Comment on above: Performed By: #### P SUIV #### [facility] [address] [place], [address] Hematocrit (Bld) [Volume fraction] 37.0 % Normal 37-47 [facility] Comment on above: Performed By: #### P SUIV #### [facility] [address] [place], [address] Hemoglobin (Bld) [Mass/Vol] 12.6 g/dL Normal 12.0-15.0 [facility] Comment on above: Performed By: #### P SUIV #### [facility] [address] [place], [address] MCH (RBC) [Entitic mass] 29.9 pg Normal 27.0-32.0 [facility] Comment on above: Performed By: #### P SUIV #### [facility] [address] [place], [address] MCHC (RBC) [Mass/Vol] 34.1 g/dL Normal 32-36 [facility] Comment on above: Performed By: #### P SUIV #### [facility] [address] [place], [address] MCV (RBC) [Entitic vol] 87.7 fL Normal 81-99 [facility] Comment on above: Performed By: #### P SUIV #### [facility] [address] [place], [address] Platelet mean volume (Bld) [Entitic vol] 9.2 fL Normal 6.2-12.0 [facility] Comment on above: Performed By: #### P SUIV #### [facility] [address] [place], [address] Platelets (Bld) [#/Vol] 329 10*3/uL Normal 150-450 [facility] Comment on above: Performed By: #### P SUIV #### [facility] [address] [place], [address] RBC (Bld) [#/Vol] 4.22 10*6/uL Normal 4.2-5.4 [facility] Comment on above: Performed By: #### P SUIV #### [facility] [address] [place], [address] RDW SD 42.8 fl Normal 35.1-43.9 [facility] Comment on above: Performed By: #### P SUIV #### [facility] [address] [place], [address] WBC (Bld) [#/Vol] 7.5 10*3/uL Normal 4.4-11.0 [facility] Comment on above: Performed By: #### P SUIV #### [facility] [address] [place], [address] (372 Carbon dioxide, total [Moles /volume] in Central venous bloodOrdered By: Shayla Green on 01-06-2025 CO2 [Moles/Vol] 19.7 mmol/L Low 21.0-32.0 [facility] Chloride assayOrdered By: Cody Green on 01-06-2025 Chloride [Moles/Vol] 95 mmol/L Low 98-108 [facility] Comprehensive Metabolic Prof ilon 01-06-2025 Albumin [Mass/Vol] 4.2 g/dL Normal 3.4-4.8 [facility] Comment on above: Performed By: #### P SUIV #### [facility] [address] [place], [address] Albumin/Globulin [Mass ratio] 1.9 {ratio} Normal 0.9-2.4 [facility] Comment on above: Performed By: #### P SUIV #### [facility] [address] [place], [address] ALK PHOS 92 U/L Normal 35-104 [facility] Comment on above: Performed By: #### P SUIV #### [facility] [address] [place], [address] ALT [Catalytic activity/Vol] 14 U/L Normal <=34 [facility] Comment on above: Performed By: #### P SUIV #### [facility] [address] [place], [address] AST [Catalytic activity/Vol] 20 U/L Normal <=31 [facility] Comment on above: Performed By: #### P SUIV #### [facility] [address] [place], [address] Bilirubin [Mass/Vol] 0.86 mg/dL Normal 0.00-1.30 [facility] Comment on above: Performed By: #### P SUIV #### [facility] [address] [place], [address] BUN/CRE 24.2 RATIO High 10-20 [facility] Comment on above: Performed By: #### P SUIV #### [facility] [address] [place], [address] Calcium [Mass/Vol] 9.4 mg/dL Normal 7.6-11.0 [facility] Comment on above: Performed By: #### P SUIV #### [facility] [address] [place], [address] Chloride [Moles/Vol] 95 mmol/L Low 98-108 [facility] Comment on above: Performed By: #### P SUIV #### [facility] [address] [place], [address] CO2 [Moles/Vol] 19.7 mmol/L Low 21.0-32.0 [facility] Comment on above: Performed By: #### P SUIV #### [facility] [address] [place], [address] Creatinine [Mass/Vol] 0.84 mg/dL Normal 0.70-1.20 [facility] Comment on above: Performed By: #### P SUIV #### [facility] [address] [place], [address] GAP 14 Normal 5-15 [facility] Comment on above: Performed By: #### P SUIV #### [facility] [address] [place], [address] GFR/1.73 sq M.predicted among non-blacks MDRD (S/P/Bld) [Vol rate/Area] 73 mL/min/{1.73_m2} Normal >60 [facility] Comment on above: Result Comment: mL/m in/1.73m2 CKD-EPI Creatinine Equation (2020) Performed By: #### P SUIV #### [facility] [address] [place], [address] Globulin (S) [Mass/Vol] 2.3 g/dL Normal 2.2-4.2 [facility] Comment on above: Performed By: #### P SUIV #### [facility] [address] [place], [address] Glucose [Mass/Vol] 120 mg/dL High 70-99 [facility] Comment on above: Performed By: #### P SUIV #### [facility] [address] [place], [address] Potassium [Moles/Vol] 4.2 mmol/L Normal 3.3-5.1 [facility] Comment on above: Performed By: #### P SUIV #### [facility] [address] [place], [address] Sodium [Moles/Vol] 129 mmol/L Low 133-145 [facility] Comment on above: Performed By: #### P SUIV #### [facility] [address] [place], [place], [id number] T PROT 6.5 g/dL Normal 5.9-8.4 [facility] Comment on above: Performed By: #### P SUIV #### [facility] [address] [place], [address] Urea nitrogen [Mass/Vol] 20 mg/dL High 4-19 [facility] Comment on above: Performed By: #### P SUIV #### [facility] [address] [place], [place], [id number] Erythrocyte distribution wid th ratioOrdered By: Shayla Green on 01-06-2025 Erythrocyte distribution width (RBC) [Ratio] 13.4 % 11.6-14.6 [facility] Erythrocyte distribution wid th standard deviationOrdered By: Shayla Green on 01-06-2025 Erythrocyte distribution width (RBC) [Entitic vol] 42.8 fL 35.1-43.9 [facility] Erythrocyte distribution width (RBC) [Ratio] 42.8 fl 35.1-43.9 [facility] GFR/1.73 sq M.predicted josse g non-blacks MDRD (S/P/Bld) [Vol rate/Area]Ordered By: Shayla Green on 01-06-2025 Estimated GFR (MDRD) Non-Af Amer 73 >60 [facility] Comment on above: mL/min/1.73m2 CKD-EP I Creatinine Equation (2020) Glomerular filtration rate ( GFR) estimation/1.73 sq m using serum, plasma, or whole bOrdered By: Shayla Green on 01-06-2025 GFR/1.73 sq M.predicted among non-blacks MDRD (S/P/Bld) [Vol rate/Area] 73 mL/min/{1.73_m2} >60 [facility] Comment on above: mL/min/1.73m2 CKD-EP I Creatinine Equation (2020) Hematocrit Auto (Bld) [Volum e fraction]Ordered By: Shayla Green on 01-06-2025 Hematocrit (Bld) [Volume fraction] 37.0 % 37-47 [facility] Hemoglobin measurementOrdere d By: Shayla Green on 01-06-2025 Hemoglobin (Bld) [Mass/Vol] 12.6 g/dL 12.0-15.0 [facility] - Chemistry and C hemistry - challengeOrdered By: Shayla Green on 01-06-2025 AST [Catalytic activity/Vol] 20 U/L <32 [facility] MCV (mean corpuscular volume ) determinationOrdered By: Shayla Green on 01-06-2025 MCV (RBC) [Entitic vol] 87.7 fL 81-99 [facility] MR/PAT.RADHAon 01-06-2025 MR/PAT[facility] Medical Records Department [address] [place] [address] PAT - Anesthesia 01/06/25 1732 MR#: [id number] Acct: [id number] Name: MÓNICA DECKER Rep #: [id number] : 1950 74 From: Sherman Chávez MD PCP: Dr. Mateo Marmolejo MD [place] [facility] [place] C [place] [facility] [place]-Assessment Diagnosis/Proposed Procedure Planned Operative Procedure(s): Hysteroscopy,Dilation and Curettage Anesthesia History Anesthesia History - trauma nurse: Anesthesia History - trauma nurse Hx Hospitalization Yes: [facility] 01/04/25 14:07 Any Problems With Anesthesia Yes: LTAC AFTER HIP SURGERY 01/04/25 14:07 LAST YEAR Cholinesterase deficiency No 01/04/25 14:07 You/Your Family Experience No 01/04/25 14:07 fever (hyperthermia) with Relationship Recent Exposure to Contagious Disease Does patient have nerve No 01/04/25 14:07 stimulator Patient instructed to have device shut off --Does patient have Pacemaker or ICD? When Was Last Pacemaker Check QUESTION #4 FULL TEXT: You/Your Family Experience fever (hyperthermia) with Anesthesia Last Oral Intake Last Oral intake: Last Oral Intake NPO since Meds taken in AM with sips of water? Meds patient instructed to take am of surgery PONV PONV - trauma nurse: PONV - trauma nurse Female Yes 01/04/25 14:07 HX of Motion Sickness No 01/04/25 14:07 HX of N/V After Surgery No 01/04/25 14:07 Non-Smoker Yes 01/04/25 14:07 Duration of Surgery greater No 01/04/25 14:07 than 60 minutes Number of Risk Factors 2 01/04/25 14:07 PONV Score Moderate Risk 01/04/25 14:07 Height Weight Height Weight: Anesthesia: Height Weight Height 5 ft 12/10/24 09:12 Respiratory Assessment Respiratory Assessment - trauma nurse: Respiratory Tract Infection Hx - trauma nurse Hx Respiratory Tract Infection No 01/04/25 14:07 STOP Sleep Apnea STOP Sleep Apnea - trauma nurse: STOP Sleep Apnea - trauma nurse Hx Hypertension Yes: CONTROLLED ON MED 01/04/25 14:07 Hx Sleep Apnea No 01/04/25 14:07 CPAP BIPAP Do you snore loudly (louder No 01/04/25 14:07 than talking or can be heard Do you often feel tired/ No 01/04/25 14:07 fatigued/ sleepy during daytime? Has anyone observed you stop No 01/04/25 14:07 breathing during sleep? STOP Results Negative 01/04/25 14:07 QUESTION #5 FULL TEXT : Do you snore loudly (louder than talking or can be heard through closed doors)? 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 Specify any problems Hx of Preganancy in last 3 No 01/04/25 14:07 Months Nurse Filling Out Transfusion VCHRISTIN 01/04/25 14:07 Questions: Date: 01/04/25 01/04/25 14:07 Time: 14:09 01/04/25 14:07 Patient unable to answer at this time (ie. confused, unrespo /Reproduction History /Reproductive History - trauma nurse: /Reproductive Hx- trauma nurse Hx Now No 01/04/25 14:07 Gestational Age (in weeks): EDC: Hx Hx Para Hx Section SAB No 01/04/25 14:07 [facility] Medical History (Updated 01/04/25 @ 14:07 by Brii Gallego) Post-menopausal Depression Anxiety Dementia Open wound Arthritis Non-smoker Shortness of breath on exertion Urinary incontinence Gout Hypothyroid High cholesterol HTN (hypertension) Home Medications ???Medication ???Instructions ???Recorded ???Last Taken ???Type levothyroxine 137 mcg tablet 150 mcg PO DAILY thyroid 01/06/20 01/05/20 History lisinopril 10 mg tablet 40 mg PO DAILY blood pressure 12/2501/04/20 History amlodipine 10 mg tablet (Norvasc) 10 mg PO DAILY 08/06/24 Unknown H istory furosemide 40 mg tablet (Lasix) 40 mg PO DAILY 08/06/24 Unknown Hi story pravastatin 10 mg tablet 10 mg PO QHS 08/06/24 Unknown Hist ory allopurinol 300 mg tablet 300 mg PO QDAY 12/10/24 Unknown Hi story mecobalamin (vitamin B12) 1,000 1,000 mcg PO QDAY 12/10/24 Unknown History mcg chewable t (more content not included)... Normal [facility] MR/PAT[facility] Medical Records Department [address] [place] [address] PAT - Anesthesia 01/06/25 1205 MR#: [id number] Acct: [id number] Name: MÓNICA DECKER Rep #: [id number] : 1950 74 From: Sherman Chávez MD PCP: Dr. Mateo Marmolejo MD [place] [facility] [place] C [place] [facility] Pre-Assessment Diagnosis/Proposed Procedure Planned Operative Procedure(s): Hysteroscopy,Dilation and Curettage Anesthesia History Anesthesia History - trauma nurse: Anesthesia History - trauma nurse Hx Hospitalization Yes: [facility] 01/04/25 14:07 Any Problems With Anesthesia Yes: LTAC AFTER HIP SURGERY 01/04/25 14:07 LAST YEAR Cholinesterase deficiency No 01/04/25 14:07 You/Your Family Experience No 01/04/25 14:07 fever (hyperthermia) with Relationship Recent Exposure to Contagious Disease Does patient have nerve No 01/04/25 14:07 stimulator Patient instructed to have device shut off --Does patient have Pacemaker or ICD? When Was Last Pacemaker Check QUESTION #4 FULL TEXT: You/Your Family Experience fever (hyperthermia) with Anesthesia Last Oral Intake Last Oral intake: Last Oral Intake NPO since Meds taken in AM with sips of water? Meds patient instructed to take am of surgery PONV PONV - trauma nurse: PONV - trauma nurse Female Yes 01/04/25 14:07 HX of Motion Sickness No 01/04/25 14:07 HX of N/V After Surgery No 01/04/25 14:07 Non-Smoker Yes 01/04/25 14:07 Duration of Surgery greater No 01/04/25 14:07 than 60 minutes Number of Risk Factors 2 01/04/25 14:07 PONV Score Moderate Risk 01/04/25 14:07 Height Weight Height Weight: Anesthesia: Height Weight Height 5 ft 12/10/24 09:12 Respiratory Assessment Respiratory Assessment - trauma nurse: Respiratory Tract Infection Hx - trauma nurse Hx Respiratory Tract Infection No 01/04/25 14:07 STOP Sleep Apnea STOP Sleep Apnea - trauma nurse: STOP Sleep Apnea - trauma nurse Hx Hypertension Yes: CONTROLLED ON MED 01/04/25 14:07 Hx Sleep Apnea No 01/04/25 14:07 CPAP BIPAP Do you snore loudly (louder No 01/04/25 14:07 than talking or can be heard Do you often feel tired/ No 01/04/25 14:07 fatigued/ sleepy during daytime? Has anyone observed you stop No 01/04/25 14:07 breathing during sleep? STOP Results Negative 01/04/25 14:07 QUESTION #5 FULL TEXT : Do you snore loudly (louder than talking or can be heard through closed doors)? 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 Specify any problems Hx of Preganancy in last 3 No 01/04/25 14:07 Months Nurse Filling Out Transfusion VCHRISTIN 01/04/25 14:07 Questions: Date: 01/04/25 01/04/25 14:07 Time: 14:09 01/04/25 14:07 Patient unable to answer at this time (ie. confused, unrespo /Reproduction History /Reproductive History - trauma nurse: /Reproductive Hx- trauma nurse Hx Now No 01/04/25 14:07 Gestational Age (in weeks): EDC: Hx Hx Para Hx Section SAB No 01/04/25 14:07 [facility] Medical History (Updated 01/04/25 @ 14:07 by Brii Gallego) Post-menopausal Depression Anxiety Dementia Open wound Arthritis Non-smoker Shortness of breath on exertion Urinary incontinence Gout Hypothyroid High cholesterol HTN (hypertension) Home Medications ???Medication ???Instructions ???Recorded ???Last Taken ???Type levothyroxine 137 mcg tablet 150 mcg PO DAILY thyroid 01/06/20 01/05/20 History lisinopril 10 mg tablet 40 mg PO DAILY blood pressure 12/2501/04/20 History amlodipine 10 mg tablet (Norvasc) 10 mg PO DAILY 08/06/24 Unknown H istory furosemide 40 mg tablet (Lasix) 40 mg PO DAILY 08/06/24 Unknown Hi story pravastatin 10 mg tablet 10 mg PO QHS 08/06/24 Unknown Hist ory allopurinol 300 mg tablet 300 mg PO QDAY 12/10/24 Unknown Hi story mecobalamin (vitamin B12) 1,000 1,000 mcg PO QDAY 12/10/24 Unknown History mcg chewable t (more content not included)... Normal [facility] Mean corpuscular hemoglobin (MCH) determinationOrdered By: Shayla Green on 01-06-2025 MCH (RBC) [Entitic mass] 29.9 pg 27.0-32.0 [facility] Mean corpuscular hemoglobin concentration (MCHC) determinationOrdered By: Shayla Green on 01-06-2025 MCHC (RBC) [Mass/Vol] 34.1 g/dL 32-36 [facility] Mean platelet volume determi nationOrdered By: Shayla Green on 01-06-2025 Platelet mean volume (Bld) [Entitic vol] 9.2 fL 6.2-12.0 [facility] Platelet countOrdered By: Cody Green on 01-06-2025 Platelets (Bld) [#/Vol] 329 10*3/uL 150-450 [facility] Potassium (Unsp spec) [Mass/ Vol]Ordered By: Shayla Green on 01-06-2025 Potassium [Moles/Vol] 4.2 mmol/L 3.3-5.1 [facility] Potassium measurement (mass/ volume)Ordered By: Shayla Green on 01-06-2025 Potassium (Unsp spec) [Mass/Vol] 4.2 mmol/L 3.3-5.1 [facility] RBC Auto (Bld) [#/Vol]Ordere d By: Shayla Green on 01-06-2025 RBC (Bld) [#/Vol] 4.22 10*6/uL 4.2-5.4 [facility] Serum creatinine measurement (mass/volume)Ordered By: Shayla Green on 01-06-2025 Creatinine [Mass/Vol] 0.84 mg/dL 0.70-1.20 [facility] Serum globulin measurementOr dered By: Shayla Green on 01-06-2025 Globulin (S) [Mass/Vol] 2.3 g/dL 2.2-4.2 [facility] Serum glucose measurement (m ass/volume)Ordered By: Shayla Green on 01-06-2025 Glucose [Mass/Vol] 120 mg/dL High 70-99 [facility] Serum or plasma alanine choi otransferase (ALT) measurementOrdered By: Shayla Green on 01-06-2025 ALT [Catalytic activity/Vol] 14 U/L <35 [facility] Serum or plasma albumin edmond urement (mass/volume)Ordered By: Shayla Green on 01-06-2025 Albumin [Mass/Vol] 4.2 g/dL 3.4-4.8 [facility] Serum or plasma albumin/glob ulin mass ratioOrdered By: Shayla Green on 01-06-2025 Albumin/Globulin [Mass ratio] 1.9 {ratio} 0.9-2.4 [facility] Serum or plasma alkaline armando sphatase measurementOrdered By: Shayla Green on 01-06-2025 ALP [Catalytic activity/Vol] 92 U/L 35-104 [facility] Serum or plasma calcium edmond urement (mass/volume)Ordered By: Shayla Green on 01-06-2025 Calcium [Mass/Vol] 9.4 mg/dL 7.6-11.0 [facility] Serum or plasma urea nitroge n measurement (mass/volume)Ordered By: Shayla Green on 01-06-2025 Urea nitrogen [Mass/Vol] 20 mg/dL High 4-19 [facility] Sodium levelOrdered By: Hannah Green on 01-06-2025 Sodium [Moles/Vol] 129 mmol/L Low 133-145 [facility] Total proteinOrdered By: Angelica Green on 01-06-2025 Protein [Mass/Vol] 6.5 g/dL 5.9-8.4 [facility] Type AND Screen - PAT ONLYon 01-06-2025 ABO and Rh group Nom (Bld) Blood group O Rh(D) positive Normal [facility] Comment on above: Order Comment: Reaso n for Laboratory Test PRE-[id number],Dilation and Curettage Performed By: #### P SUIV #### [facility] [place], [address] White blood cell (WBC) count Ordered By: Shayla Green on 01-06-2025 WBC (Bld) [#/Vol] 7.5 10*3/uL 4.4-11.0 [facility] Plastic Surgery Visit Report on 12-30-2024 Plastic Surgery Visit Report [facility] [address], [address] [place], [place] [id number] OFFICE VISIT Date of Service: 12/30/24 MR#: [id number] Acct: [id number] Name: MÓNICA DECKER Rep #: [id number] : 1950 Provider: Dr. Kasi Eugene MD Age/Sex: 74/F Location: [facility] Status: Signed Intake Vital Signs 3 12/10/24 09:12 Height 5 ft Weight: 170 lb 4 oz BMI 33.2 BP 112/62 Intake Visit Reasons: Hidradenitis Chief Complaint: Hidradenitis Allergies Latex, Natural Rubber Allergy (Mild, Verified 12/30/24 14:55) Rash Medications 3 ???Medication ???Instructions ???Recorded ???Confirmed ???Type levothyroxine 137 mcg tablet 150 mcg PO DAILY thyroid 01/06/20 12/30/24 History lisinopril 10 mg tablet 40 mg PO DAILY blood pressure 12/2512/30/24 History amlodipine 10 mg tablet (Norvasc) 10 mg PO DAILY 08/06/24 12/30/24 History furosemide 40 mg tablet (Lasix) 40 mg PO DAILY 08/06/24 12/30/24 H istory pravastatin 10 mg tablet 10 mg PO QHS 08/06/24 12/30/24 His tory allopurinol 300 mg tablet 300 mg PO QDAY 12/10/24 12/30/24 H istory mecobalamin (vitamin B12) 1,000 1,000 mcg PO QDAY 12/10/24 5 History mcg chewable tablet potassium chloride 20 mEq 20 meq PO QDAY 12/10/24 12/30/24 H istory tablet,extended release Have you fallen in the past year?: No PFSH Medical History Urinary incontinence Gout Hypothyroid High cholesterol HTN (hypertension) Surgical History Status post amputation of finger S/P bladder repair History of left hip replacement H/O thyroidectomy History of right hip replacement Family History Father Colon cancer Mother Hypertension Social History Smoking Status: Never smoker additional social history: Single HPI Hidradenitis Details: Mónica Decker is a delightful 74-year-old woman with past medical history of hypertension, postmenopausal vaginal bleeding (scheduled for a D C procedure later this month for evaluation), as well as hidradenitis suppurativa for which she is coming into the office today for evaluation. It is in her groin and has been present as it is for months. It is draining and uncomfortable /painful. She is not a smoker. I spoke to her labeling associate regarding her treatment of the HS (last seen 27 December 2024 by Leland Arora). Patient placed on Hibiclens bathes, Doxycycline for 6 weeks to calm down the lesions, as well as an intramuscular kenalog shot. Patient has had 45 pounds of unintentional weight loss over the past couple of years. She has not had a screening mammography or a colonoscopy recently within the recommended guidelines. ROS General General: Yes good health and fatigue; No fever(s) or weight loss HENMT HENMT: Yes rhinitis; No sore throat/mouth sore, nasal congestion, contacts or glaucoma Endo Endocrine: Yes thyroid disease; No polydipsia, heat intolerance, cold intolerance, hepatitis or excessive urine Skin Skin: No Bleeding, bruising, changing moles or suspicious lesion Musc Musculoskeletal: Yes muscle weakness and osteoarthritis; No joint pain, joint stiffness, back pain or Muscle aches/ myalgia Neuro Neurological: No headache(s), No lightheadedness and No numbness Cardio Cardiovascular: Yes fatigue; No chest pain, pacemaker or shortness of breat with exertion Psych Psychiatric: Yes depression and claustrophobia; No anxiety Resp Respiratory: No spitting up, shortness of breath, sleep apnea, asthma, emphysema, TB, Cough or Smoker Gastro Gastrointestinal: Yes constipation; No diarrhea, blood in stool, nausea, vomiting or abdominal bloating Sawyer Hematologic: No anemia, No bleeding and No abnormal bleeding Genitourinary: Yes urinary frequency and incontinence; No blood in urine Exam Details Groin seen and examined with female dietitian teacher present No lymphadenopathy Bilateral inguinal folds with Brown stage I hidradenitis with some draining bilaterally on the margins of the labia majora. She has some hypertrophic granulation tissue on the right at the top of the sinus. No surrounding erythema or signs of spreading infection. Coding Level of Care Code Off vis,new,level 4 Diagnoses Hidradenitis suppurativa L73.2 Assessment and Plan (No Qualifiers) Assessment and Plan (1) Hidradenitis suppurativa: Status: Acute Plan: I discussed with the patient extensively hidradenitis suppurativa and the treatment options, including excision and healing by secondary intention. Given that the patient has recently had a steroid injection, and is currently on (more content not included)... Normal [facility] CNOVon 12-29-2024 CNOV Office Visit (VILLAIWR ) MÓNICA DECKER ([id number]) 1950 F NFR Date Time Provider Department 12/29/24 11:30 AM SARAH YING During your visit today, we recorded the following information about you: Pulse Blood pressure Weight Height 81/minute 132/64 78.2 kg 1.524 m Sarah Ying MD 12/29/2024 1:58 PM Signed [facility] Initial Consult Mónica Decker is a 74 year old year old female who comes for Comprehensive Geriatric Assessment. Pt accompanied by: brother Gerson Caregivers involved in care: HPI: Mónica is a 74-year-old, PMHx significant for Hypertension, hyperlipidemia , sandra,, hypothyroidism. , gout who had some complications after hip surgery in March 2024. After that time it was noted that she started having memory issues which are progressively getting worse according to the family. She was evaluated and there has been no significant change in functionality, except the transportation which is unclear whether it is a partially cognitive but mostly its physical and was asked to get MRI done. She did get MRI and unfortunately her hippocampal volumes at 1 percentile. She was explained the different ways to help keep her cognition going and was offered medication. Her hearing may require some evaluation. And she has not been having regular eye visits so that was being planned for her. Any Family History of dementia? Not that she is aware of Are you or your spouse a ? No Alzheimer Questionnaire Long-term Memory: Difficulty remembering distant events from the past like childhood, previous employment, wedding: NO Behavioral/personality : Withdrawn/Depressed: No Crying spells: no Anxious: No History of aggression: No History of irritability: No Apathy:No Recent changes in weight or appetite: YES Alcohol or Drug use: NO Smoking? NO Sleep: Do you snore loudly (louder than talking or loud enough to be heard through closed doors)? Cannot really tell if she snores , no collateral information Do you often feel tired, fatigued, or sleepy during daytime? Cannot really tell if she snores , no collateral information Has anyone observed you stop breathing during your sleep? Cannot really tell if she snores , no collateral information Are you restless when you sleep at night? Cannot really tell if she snores , no collateral information Do you have problems falling a sleep? Cannot really tell if she snores , no collateral information Do you have problems staying a sleep? Cannot really tell if she snores , no collateral information Psychosis: Hallucinations or delusions: NO Suicidal or homicidal ideations: NO Obsessions, compulsions, or hoarding: NO Safety: Does pt know his/her address? NO What would you do if there was a fire? Get out How would you call for help?911 Are there any firearms in the home?no Social History: Primary language: Malaysian Marital Status: Single Living situation: Home Alone Socially engaged? (participates in activities such as clubs, islam, community center, sports, games, visiting friends/relatives, etc?): NO Caregiver [place] and Stress Are your feeling overwhelmed? NO Do you have concerns about your own health? NO Are you neglecting your own needs? NO Do you have financial concerns? NO Do your fear loss of employment? NO Do you have concerns about verbal/physical abuse? NO Do you feel that you are still capable of taking care of your relative? NO Are you willing to continue being in the caregiver role? NO B-ADLs: (I=independent,A=kitty tance,D=dependent) ?Bathing: I, Dressing: I, Toileting: I, Transferring:I, Continence: I, Feeding: I, I-ADLs: Ability to use phone: I, Shopping: I, Cooking: I, Housekeeping: I, Laundry: I, Transportation:A, she notes no decline Medications: {I, Handle Finances: I. Pmhx, Surhx , reviewed Home Meds: Prior to Admission medications : Medication doxycycline (VIBRA-TABS) 100 mg tablet, Sig Take 100 mg by mouth two times a day. 45 days, Start Date 12/03/24, End Date , Taking? Yes, Authorizing Provider Provider, [facility] Medication allopurinol (ZYLOPRIM) 300 mg tablet, Sig Take 1 tablet by mouth once daily. For gout., Start Date 12/21/24, End Date , Taking? Yes, Authorizing Provider Alida Jaeger PA-C Medication amLODIPine (NORVASC) 10 mg tablet, Sig Take 1 tablet by mouth once daily. PLEASE MAIL TO PATIENT;S HOME - PILL FILI, Start Date 11/22/24, End Date , Taking? Yes, Authorizing Provider Alida Jaeger PA-C Medication furosemide (LASIX) 40 mg tablet, Sig Take 1 tablet by mouth once daily. PLEASE MAIL TO PATIENT;S HOME - PILL FILI, Start Date 11/22/24, End Date , Taking? Yes, Authorizing Provider Alida Jaeger PA-C Medication lisinopril (ZESTRIL) 40 mg tablet, Sig Take 1 tablet by mouth once daily. PLEASE MAIL TO PATIENT'S HOME - PIL (more content not included)... Normal [facility] MR Brain WO contraston 12-24 * * *Final Report* * * DATE OF EXAM: Dec 24 2024 9:36AM [place] [id number] - MRI BRAIN WO IVCON / PROCEDURE REASON: Cognitive impairment, mild, so stated * * * * Physician Interpretation * * * * EXAMINATION: MRI BRAIN WO IVCON, MRI 3D POST PROCESSING CLINICAL HISTORY: Cognitive impairment, mild, so stated TECHNIQUE: Axial NICOLE FLAIR, NICOLE T2, diffusion and susceptibility weighted imaging without contrast, using the ADNI dementia protocol and 3-D post-processing using the NeuroQuant software at an independent workstation with concurrent physician supervision and images were created, reviewed and archived. MQ: [id number] COMPARISON: None RESULT: QUALITATIVE: Acute Intracranial Process: None. Chronic Intracranial Process: Scattered patchy areas of increased T2 and FLAIR signal are present in the supratentorial white matter which is a nonspecific finding but likely represents mild chronic microvascular ischemia. Number of chronic lacunar infarcts: None Location of chronic lacunar infarcts: Not applicable Age related white matter changes (ARWMC) rating: White matter lesions: 1 Basal ganglia lesions: 0 Prior intracranial hemorrhage: Parenchymal microhemorrhages: 0 Other (siderosis/macrohemorr hages (>10mm): Not Applicable Amyloid Related Imaging Abnormalities: ARIA-E: N/A ARIA-H Microhemorrhage: N/A ARIA-H Siderosis: N/A Qualitative brain and hippocampal volume loss for age: Cortex: Moderate and generalized White Matter: Mild and generalized Hippocampi: Moderate and Symmetric Ventricles: Commensurate with volume loss. Brain Parenchymal Signal and Morphology: The brain parenchyma is otherwise within normal limits of signal and morphology. There is no evidence of an intracranial mass or extraaxial fluid collection. Other Significant Findings: None. QUANTITATIVE: Exam Quality: Good for volumetric analysis. Segmentation: Negligible mismapping by visual inspection. Quantitative Data: Total Hippocampal Volume: Percentile for Age: 1 Asymmetry Index: 6.71 Inferior Lateral Vent Volume: Percentile for age: 24 Asymmetry Index: -4.41 Superior Lateral Vent Volume: Percentile for age: 8 Asymmetry Index: -12.2 Temporal Lobe Cortex Volume: Temporal Lobe Percentile for Age: 50 Temporal Lobe Asymmetry Index: 2.04 Frontal Lobe Cortex Volume: Frontal Lobe Percentile for Age: 32 Frontal Lobe Asymmetry Index: -7.85 Parietal Lobe Cortex Volume: Parietal Lobe Percentile for Age:24 Occipital Lobe Cortex Volume: Occipital Lobe Percentile for Age: 14 Whole Brain Volume Brain Percentile for Age: 22 Concordance between qualitative and quantitative hippocampal volume assessment: Concordant Change in brain volumes: No previous volumetric study for comparison Brain Volume Change: N/A Hippocampal Volume Change: N/A Superior Lateral Ventricle Volume Change: N/A Inferior Lateral Ventricle Volume Change: N/A Mean hippocampal volume loss among normal elderly: 0.7% per year, (-0.3 to 1.7; Victor Hugo 2008; also Fransisco 2010). [facility] Provider, [facility] - 12/24/2024 * * *Final Report* * * DATE OF EXAM: Dec 24 2024 9:36AM [facility] 0294 - MRI BRAIN WO IVCON / PROCEDURE REASON: Cognitive impairment, mild, so stated * * * * Physician Interpretation * * * * EXAMINATION: MRI BRAIN WO IVCON, MRI 3D POST PROCESSING CLINICAL HISTORY: Cognitive impairment, mild, so stated TECHNIQUE: Axial NICOLE FLAIR, NICOLE T2, diffusion and susceptibility weighted imaging without contrast, using the ADNI dementia protocol and 3-D post-processing using the [employer] software at an independent workstation with concurrent physician supervision and images were created, reviewed and archived. MQ: [id number] COMPARISON: None RESULT: QUALITATIVE: Acute Intracranial Process: None. Chronic Intracranial Process: Scattered patchy areas of increased T2 and FLAIR signal are present in the supratentorial white matter which is a nonspecific finding but likely represents mild chronic microvascular ischemia. Number of chronic lacunar infarcts: None Location of chronic lacunar infarcts: Not applicable Age related white matter changes (ARWMC) rating: White matter lesions: 1 Basal ganglia lesions: 0 Prior intracranial hemorrhage: Parenchymal microhemorrhages: 0 Other (siderosis/macrohemorr hages (>10mm): Not Applicable Amyloid Related Imaging Abnormalities: ARIA-E: N/A ARIA-H Microhemorrhage: N/A ARIA-H Siderosis: N/A Qualitative brain and hippocampal volume loss for age: Cortex: Moderate and generalized White Matter: Mild and generalized Hippocampi: Moderate and Symmetric Ventricles: Commensurate with volume loss. Brain Parenchymal Signal and Morphology: The brain parenchyma is otherwise within normal limits of signal and morphology. There is no evidence of an intracranial mass or extraaxial fluid collection. Other Significant Findings: None. QUANTITATIVE: Exam Quality: Good for volumetric analysis. Segmentation: Negligible mismapping by visual inspection. Quantitative Data: Total Hippocampal Volume: Percentile for Age: 1 Asymmetry Index: 6.71 Inferior Lateral Vent Volume: Percentile for age: 24 Asymmetry Index: -4.41 Superior Lateral Vent Volume: Percentile for age: 8 Asymmetry Index: -12.2 Temporal Lobe Cortex Volume: Temporal Lobe Percentile for Age: 50 Temporal Lobe Asymmetry Index: 2.04 Frontal Lobe Cortex Volume: Frontal Lobe Percentile for Age: 32 Frontal Lobe Asymmetry Index: -7.85 Parietal Lobe Cortex Volume: Parietal Lobe Percentile for Age:24 Occipital Lobe Cortex Volume: Occipital Lobe Percentile for Age: 14 Whole Brain Volume Brain Percentile for Age: 22 Concordance between qualitative and quantitative hippocampal volume assessment: Concordant Change in brain volumes: No previous volumetric study for comparison Brain Volume Change: N/A Hippocampal Volume Change: N/A Superior Lateral Ventricle Volume Change: N/A Inferior Lateral Ventricle Volume Change: N/A Mean hippocampal volume loss among normal elderly: 0.7% per year, (-0.3 to 1.7; Victor Hugo 2008; also Fransisco 2010). IMPRESSION IMPRESSION: * No evidence of an acute intracranial process or intracranial mass. * Moderate generalized volume loss. * Hippocampal volumes at the 1 percentile when compared to age matched normal controls by quantitative analysis. * Mild white matter disease which is nonspecific but likely reflective of chronic microvascular ischemia. * No evidence of parenchymal microhemorrhages by MRI. REFERENCES: White Matter Lesions: 0 = No lesions, including symmetrical, well-defined caps or bands 1 = Focal Lesions 2 = Beginning of [place] 3 = Diffuse Involvement of Entire Region Basal Ganglia Lesions: 0 = No Lesions 1 = 1 Focal Lesion (>5mm) 2 = >1 Focal Lesion (>5mm) 3 = Confluent Lesions Fransisco Coley, et al. The clinical use of structural MRI in Alzheimer disease. Nature Reviews Neurology 6;67 (2010). Victor Hugo et al. Validation of a fully automated 3D hippocampal segmentation method using subjects with Alzheimer's disease mild cognitive impairment, and elderly controls. Neuroimage 43;59 (2008). Susieund et al. A New Rating Scale for Age-Related White Matter Changes Applicable to MRI and CT. Stroke. 32:1318 (2001). * Asymmetry index defined as difference between left and right volumes divided by mean or [(L-R/Mean) x 100] (%). Age-matched reference charts measure total hippocampal volume (% of intracranial volume). See results from the analysis charts for details. Credit Control Assistant: JONNY Transcribe Date/Time: Dec 24 2024 3:15P Dictated by : KAISER BAZAN MD This examination was interpreted and the report reviewed and electronically signed by: KAISER BAZAN MD on Dec 24 2024 3:33PM [facility] Radiology Study observation (narrative) Sol garrido [facility] MR Unspecified body region 3 D post processingon 12-24-2024 * * *Final Report* * * DATE OF EXAM: Dec 24 2024 9:36AM [facility] 0280 - MRI 3D POST PROCESSING / PROCEDURE REASON: Cognitive impairment, mild, so stated * * * * Physician Interpretation * * * * EXAMINATION: MRI BRAIN WO IVCON, MRI 3D POST PROCESSING CLINICAL HISTORY: Cognitive impairment, mild, so stated TECHNIQUE: Axial NICOLE FLAIR, NICOLE T2, diffusion and susceptibility weighted imaging without contrast, using the ADNI dementia protocol and 3-D post-processing using the [employer] software at an independent workstation with concurrent physician supervision and images were created, reviewed and archived. MQ: [id number]_[id number] COMPARISON: None RESULT: QUALITATIVE: Acute Intracranial Process: None. Chronic Intracranial Process: Scattered patchy areas of increased T2 and FLAIR signal are present in the supratentorial white matter which is a nonspecific finding but likely represents mild chronic microvascular ischemia. Number of chronic lacunar infarcts: None Location of chronic lacunar infarcts: Not applicable Age related white matter changes (ARWMC) rating: White matter lesions: 1 Basal ganglia lesions: 0 Prior intracranial hemorrhage: Parenchymal microhemorrhages: 0 Other (siderosis/macrohemorr hages (>10mm): Not Applicable Amyloid Related Imaging Abnormalities: ARIA-E: N/A ARIA-H Microhemorrhage: N/A ARIA-H Siderosis: N/A Qualitative brain and hippocampal volume loss for age: Cortex: Moderate and generalized White Matter: Mild and generalized Hippocampi: Moderate and Symmetric Ventricles: Commensurate with volume loss. Brain Parenchymal Signal and Morphology: The brain parenchyma is otherwise within normal limits of signal and morphology. There is no evidence of an intracranial mass or extraaxial fluid collection. Other Significant Findings: None. QUANTITATIVE: Exam Quality: Good for volumetric analysis. Segmentation: Negligible mismapping by visual inspection. Quantitative Data: Total Hippocampal Volume: Percentile for Age: 1 Asymmetry Index: 6.71 Inferior Lateral Vent Volume: Percentile for age: 24 Asymmetry Index: -4.41 Superior Lateral Vent Volume: Percentile for age: 8 Asymmetry Index: -12.2 Temporal Lobe Cortex Volume: Temporal Lobe Percentile for Age: 50 Temporal Lobe Asymmetry Index: 2.04 Frontal Lobe Cortex Volume: Frontal Lobe Percentile for Age: 32 Frontal Lobe Asymmetry Index: -7.85 Parietal Lobe Cortex Volume: Parietal Lobe Percentile for Age:24 Occipital Lobe Cortex Volume: Occipital Lobe Percentile for Age: 14 Whole Brain Volume Brain Percentile for Age: 22 Concordance between qualitative and quantitative hippocampal volume assessment: Concordant Change in brain volumes: No previous volumetric study for comparison Brain Volume Change: N/A Hippocampal Volume Change: N/A Superior Lateral Ventricle Volume Change: N/A Inferior Lateral Ventricle Volume Change: N/A Mean hippocampal volume loss among normal elderly: 0.7% per year, (-0.3 to 1.7; Victor Hugo 2008; also Fransisco 2010). [facility] * * *Final Report* * * DATE OF EXAM: Dec 24 2024 9:36AM [facility] 0280 - MRI 3D POST PROCESSING / PROCEDURE REASON: Cognitive impairment, mild, so stated * * * * Physician Interpretation * * * * EXAMINATION: MRI BRAIN WO IVCON, MRI 3D POST PROCESSING CLINICAL HISTORY: Cognitive impairment, mild, so stated TECHNIQUE: Axial NICOLE FLAIR, NICOLE T2, diffusion and susceptibility weighted imaging without contrast, using the ADNI dementia protocol and 3-D post-processing using the [employer] software at an independent workstation with concurrent physician supervision and images were created, reviewed and archived. MQ: [id number]_[id number] COMPARISON: None RESULT: QUALITATIVE: Acute Intracranial Process: None. Chronic Intracranial Process: Scattered patchy areas of increased T2 and FLAIR signal are present in the supratentorial white matter which is a nonspecific finding but likely represents mild chronic microvascular ischemia. Number of chronic lacunar infarcts: None Location of chronic lacunar infarcts: Not applicable Age related white matter changes (ARWMC) rating: White matter lesions: 1 Basal ganglia lesions: 0 Prior intracranial hemorrhage: Parenchymal microhemorrhages: 0 Other (siderosis/macrohemorr hages (>10mm): Not Applicable Amyloid Related Imaging Abnormalities: ARIA-E: N/A ARIA-H Microhemorrhage: N/A ARIA-H Siderosis: N/A Qualitative brain and hippocampal volume loss for age: Cortex: Moderate and generalized White Matter: Mild and generalized Hippocampi: Moderate and Symmetric Ventricles: Commensurate with volume loss. Brain Parenchymal Signal and Morphology: The brain parenchyma is otherwise within normal limits of signal and morphology. There is no evidence of an intracranial mass or extraaxial fluid collection. Other Significant Findings: None. QUANTITATIVE: Exam Quality: Good for volumetric analysis. Segmentation: Negligible mismapping by visual inspection. Quantitative Data: Total Hippocampal Volume: Percentile for Age: 1 Asymmetry Index: 6.71 Inferior Lateral Vent Volume: Percentile for age: 24 Asymmetry Index: -4.41 Superior Lateral Vent Volume: Percentile for age: 8 Asymmetry Index: -12.2 Temporal Lobe Cortex Volume: Temporal Lobe Percentile for Age: 50 Temporal Lobe Asymmetry Index: 2.04 Frontal Lobe Cortex Volume: Frontal Lobe Percentile for Age: 32 Frontal Lobe Asymmetry Index: -7.85 Parietal Lobe Cortex Volume: Parietal Lobe Percentile for Age:24 Occipital Lobe Cortex Volume: Occipital Lobe Percentile for Age: 14 Whole Brain Volume Brain Percentile for Age: 22 Concordance between qualitative and quantitative hippocampal volume assessment: Concordant Change in brain volumes: No previous volumetric study for comparison Brain Volume Change: N/A Hippocampal Volume Change: N/A Superior Lateral Ventricle Volume Change: N/A Inferior Lateral Ventricle Volume Change: N/A Mean hippocampal volume loss among normal elderly: 0.7% per year, (-0.3 to 1.7; Victor Hugo 2008; also Fransisco 2010). IMPRESSION IMPRESSION: * No evidence of an acute intracranial process or intracranial mass. * Moderate generalized volume loss. * Hippocampal volumes at the 1 percentile when compared to age matched normal controls by quantitative analysis. * Mild white matter disease which is nonspecific but likely reflective of chronic microvascular ischemia. * No evidence of parenchymal microhemorrhages by MRI. REFERENCES: White Matter Lesions: 0 = No lesions, including symmetrical, well-defined caps or bands 1 = Focal Lesions 2 = Beginning of [place] 3 = Diffuse Involvement of Entire Region Basal Ganglia Lesions: 0 = No Lesions 1 = 1 Focal Lesion (>5mm) 2 = >1 Focal Lesion (>5mm) 3 = Confluent Lesions Fransisco Coley, et al. The clinical use of structural MRI in Alzheimer disease. Nature Reviews Neurology 6;67 (2010). Victor Hugo et al. Validation of a fully automated 3D hippocampal segmentation method using subjects with Alzheimer's disease mild cognitive impairment, and elderly controls. Neuroimage 43;59 (2008). Wahlund et al. A New Rating Scale for Age-Related White Matter Changes Applicable to MRI and CT. Stroke. 32:1318 (2001). * Asymmetry index defined as difference between left and right volumes divided by mean or [(L-R/Mean) x 100] (%). Age-matched reference charts measure total hippocampal volume (% of intracranial volume). See results from the analysis charts for details. Credit Control Assistant: JONNY Transcribe Date/Time: Dec 24 2024 3:15P Dictated by : KAISER BAZAN MD This examination was interpreted and the report reviewed and electronically signed by: KAISER BAZAN MD on Dec 24 2024 3:33PM EST [facility] Radiology Study observation (narrative) [facility] MRI 3D POST PROCESSINGon MRI 3D POST PROCESSING * * *Final Report * * * DATE OF EXAM: Dec 24 2024 9:36AM [facility] 0280 - MRI 3D POST PROCESSING / PROCEDURE REASON: Cognitive impairment, mild, so stated * * * * Physician Interpretation * * * * EXAMINATION: MRI BRAIN WO IVCON, MRI 3D POST PROCESSING CLINICAL HISTORY: Cognitive impairment, mild, so stated TECHNIQUE: Axial NICOLE FLAIR, NICOLE T2, diffusion and susceptibility weighted imaging without contrast, using the ADNI dementia protocol and 3-D post-processing using the [employer] software at an independent workstation with concurrent physician supervision and images were created, reviewed and archived. MQ: [id number]_[id number] COMPARISON: None RESULT: QUALITATIVE: Acute Intracranial Process: None. Chronic Intracranial Process: Scattered patchy areas of increased T2 and FLAIR signal are present in the supratentorial white matter which is a nonspecific finding but likely represents mild chronic microvascular ischemia. Number of chronic lacunar infarcts: None Location of chronic lacunar infarcts: Not applicable Age related white matter changes (ARWMC) rating: White matter lesions: 1 Basal ganglia lesions: 0 Prior intracranial hemorrhage: Parenchymal microhemorrhages: 0 Other (siderosis/macrohemorr hages (>10mm): Not Applicable Amyloid Related Imaging Abnormalities: ARIA-E: N/A ARIA-H Microhemorrhage: N/A ARIA-H Siderosis: N/A Qualitative brain and hippocampal volume loss for age: Cortex: Moderate and generalized White Matter: Mild and generalized Hippocampi: Moderate and Symmetric Ventricles: Commensurate with volume loss. Brain Parenchymal Signal and Morphology: The brain parenchyma is otherwise within normal limits of signal and morphology. There is no evidence of an intracranial mass or extraaxial fluid collection. Other Significant Findings: None. QUANTITATIVE: Exam Quality: Good for volumetric analysis. Segmentation: Negligible mismapping by visual inspection. Quantitative Data: Total Hippocampal Volume: Percentile for Age: 1 Asymmetry Index: 6.71 Inferior Lateral Vent Volume: Percentile for age: 24 Asymmetry Index: -4.41 Superior Lateral Vent Volume: Percentile for age: 8 Asymmetry Index: -12.2 Temporal Lobe Cortex Volume: Temporal Lobe Percentile for Age: 50 Temporal Lobe Asymmetry Index: 2.04 Frontal Lobe Cortex Volume: Frontal Lobe Percentile for Age: 32 Frontal Lobe Asymmetry Index: -7.85 Parietal Lobe Cortex Volume: Parietal Lobe Percentile for Age:24 Occipital Lobe Cortex Volume: Occipital Lobe Percentile for Age: 14 Whole Brain Volume Brain Percentile for Age: 22 Concordance between qualitative and quantitative hippocampal volume assessment: Concordant Change in brain volumes: No previous volumetric study for comparison Brain Volume Change: N/A Hippocampal Volume Change: N/A Superior Lateral Ventricle Volume Change: N/A Inferior Lateral Ventricle Volume Change: N/A Mean hippocampal volume loss among normal elderly: 0.7% per year, (-0.3 to 1.7; Victor Hugo 2008; also Fransisco 2010). IMPRESSION: * No evidence of an acute intracranial process or intracranial mass. * Moderate generalized volume loss. * Hippocampal volumes at the 1 percentile when compared to age matched normal controls by quantitative analysis. * Mild white matter disease which is nonspecific but likely reflective of chronic microvascular ischemia. * No evidence of parenchymal microhemorrhages by MRI. REFERENCES: White Matter Lesions: 0 = No lesions, including symmetrical, well-defined caps or bands 1 = Focal Lesions 2 = Beginning of [place] 3 = Diffuse Involvement of Entire Region Basal Ganglia Lesions: 0 = No Lesions 1 = 1 Focal Lesion (>5mm) 2 = >1 Focal Lesion (>5mm) 3 = Confluent Lesions Fransisco Coley, et al. The clinical use of structural MRI in Alzheimer disease. Nature Reviews Neurology 6;67 (2010). Victor Hugo et al. Validation of a fully automated 3D hippocampal segmentation method using subjects with Alzheimer's disease mild cognitive impairment, and elderly controls. Neuroimage 43;59 (2008). Wahlund et al. A New Rating Scale for Age-Related White Matter Changes Applicable to MRI and CT. Stroke. 32:1318 (2001). * Asymmetry index defined as difference between left and right volumes divided by mean or [(L-R/Mean) x 100] (%). Age-matched reference charts measure total hippocampal volume (% of intracranial volume). See results from the analysis charts for details. Credit Control Assistant: JONNY Transcribe Date/Time: Dec 24 2024 3:15P Dictated by : KAISER BAZAN MD This examination was interpreted and the report reviewed and electronically signed by: KAISER BAZAN MD on Dec 24 2024 3:33PM EST [id number] [facility] MRI BRAIN WO IVCONon 025 MRI BRAIN WO IVCON * * *Final Report* * * DATE OF EXAM: Dec 24 2024 9:36AM [facility] 0294 - MRI BRAIN WO IVCON / PROCEDURE REASON: Cognitive impairment, mild, so stated * * * * Physician Interpretation * * * * EXAMINATION: MRI BRAIN WO IVCON, MRI 3D POST PROCESSING CLINICAL HISTORY: Cognitive impairment, mild, so stated TECHNIQUE: Axial NICOLE FLAIR, NICOLE T2, diffusion and susceptibility weighted imaging without contrast, using the ADNI dementia protocol and 3-D post-processing using the [employer] software at an independent workstation with concurrent physician supervision and images were created, reviewed and archived. MQ: [id number]_[id number] COMPARISON: None RESULT: QUALITATIVE: Acute Intracranial Process: None. Chronic Intracranial Process: Scattered patchy areas of increased T2 and FLAIR signal are present in the supratentorial white matter which is a nonspecific finding but likely represents mild chronic microvascular ischemia. Number of chronic lacunar infarcts: None Location of chronic lacunar infarcts: Not applicable Age related white matter changes (ARWMC) rating: White matter lesions: 1 Basal ganglia lesions: 0 Prior intracranial hemorrhage: Parenchymal microhemorrhages: 0 Other (siderosis/macrohemorr hages (>10mm): Not Applicable Amyloid Related Imaging Abnormalities: ARIA-E: N/A ARIA-H Microhemorrhage: N/A ARIA-H Siderosis: N/A Qualitative brain and hippocampal volume loss for age: Cortex: Moderate and generalized White Matter: Mild and generalized Hippocampi: Moderate and Symmetric Ventricles: Commensurate with volume loss. Brain Parenchymal Signal and Morphology: The brain parenchyma is otherwise within normal limits of signal and morphology. There is no evidence of an intracranial mass or extraaxial fluid collection. Other Significant Findings: None. QUANTITATIVE: Exam Quality: Good for volumetric analysis. Segmentation: Negligible mismapping by visual inspection. Quantitative Data: Total Hippocampal Volume: Percentile for Age: 1 Asymmetry Index: 6.71 Inferior Lateral Vent Volume: Percentile for age: 24 Asymmetry Index: -4.41 Superior Lateral Vent Volume: Percentile for age: 8 Asymmetry Index: -12.2 Temporal Lobe Cortex Volume: Temporal Lobe Percentile for Age: 50 Temporal Lobe Asymmetry Index: 2.04 Frontal Lobe Cortex Volume: Frontal Lobe Percentile for Age: 32 Frontal Lobe Asymmetry Index: -7.85 Parietal Lobe Cortex Volume: Parietal Lobe Percentile for Age:24 Occipital Lobe Cortex Volume: Occipital Lobe Percentile for Age: 14 Whole Brain Volume Brain Percentile for Age: 22 Concordance between qualitative and quantitative hippocampal volume assessment: Concordant Change in brain volumes: No previous volumetric study for comparison Brain Volume Change: N/A Hippocampal Volume Change: N/A Superior Lateral Ventricle Volume Change: N/A Inferior Lateral Ventricle Volume Change: N/A Mean hippocampal volume loss among normal elderly: 0.7% per year, (-0.3 to 1.7; Victor Hugo 2008; also Fransisco 2010). IMPRESSION: * No evidence of an acute intracranial process or intracranial mass. * Moderate generalized volume loss. * Hippocampal volumes at the 1 percentile when compared to age matched normal controls by quantitative analysis. * Mild white matter disease which is nonspecific but likely reflective of chronic microvascular ischemia. * No evidence of parenchymal microhemorrhages by MRI. REFERENCES: White Matter Lesions: 0 = No lesions, including symmetrical, well-defined caps or bands 1 = Focal Lesions 2 = Beginning of [place] 3 = Diffuse Involvement of Entire Region Basal Ganglia Lesions: 0 = No Lesions 1 = 1 Focal Lesion (>5mm) 2 = >1 Focal Lesion (>5mm) 3 = Confluent Lesions Fransisco Coley, et al. The clinical use of structural MRI in Alzheimer disease. Nature Reviews Neurology 6;67 (2010). Victor Hugo et al. Validation of a fully automated 3D hippocampal segmentation method using subjects with Alzheimer's disease mild cognitive impairment, and elderly controls. Neuroimage 43;59 (2008). Wahlund et al. A New Rating Scale for Age-Related White Matter Changes Applicable to MRI and CT. Stroke. 32:1318 (2001). * Asymmetry index defined as difference between left and right volumes divided by mean or [(L-R/Mean) x 100] (%). Age-matched reference charts measure total hippocampal volume (% of intracranial volume). See results from the analysis charts for details. Credit Control Assistant: JONNY Transcribe Date/Time: Dec 24 2024 3:15P Dictated by : KAISER BAZAN MD This examination was interpreted and the report reviewed and electronically signed by: KAISER BAZAN MD on Dec 24 2024 3:33PM EST [id number] Normal [facility] No Panel Informationon 12-24 IMPRESSION: * No evidence of an acute intracranial process or intracranial mass. * Moderate generalized volume loss. * Hippocampal volumes at the 1 percentile when compared to age matched normal controls by quantitative analysis. * Mild white matter disease which is nonspecific but likely reflective of chronic microvascular ischemia. * No evidence of parenchymal microhemorrhages by MRI. REFERENCES: White Matter Lesions: 0 = No lesions, including symmetrical, well-defined caps or bands 1 = Focal Lesions 2 = Beginning of [place] 3 = Diffuse Involvement of Entire Region Basal Ganglia Lesions: 0 = No Lesions 1 = 1 Focal Lesion (>5mm) 2 = >1 Focal Lesion (>5mm) 3 = Confluent Lesions Fransisco Coley et al. The clinical use of structural MRI in Alzheimer disease. Nature Reviews Neurology 6;67 (2010). Victor Hugo et al. Validation of a fully automated 3D hippocampal segmentation method using subjects with Alzheimer's disease mild cognitive impairment, and elderly controls. Neuroimage 43;59 (2008). Jose Carlos et al. A New Rating Scale for Age-Related White Matter Changes Applicable to MRI and CT. Stroke. 32:1318 (2001). * Asymmetry index defined as difference between left and right volumes divided by mean or [(L-R/Mean) x 100] (%). Age-matched reference charts measure total hippocampal volume (% of intracranial volume). See results from the analysis charts for details. Credit Control Assistant: JONNY Transcribe Date/Time: Dec 24 2024 3:15P Dictated by : KAISER BAZAN MD This examination was interpreted and the report reviewed and electronically signed by: KAISER BAZAN MD on Dec 24 2024 3:33PM EST [facility] No Panel InformationOrdered By: [facility] Provider on 12-24-2024 [facility] Dangelo 12-23-2024 [facility] MÓNICA DECKER ([id number]) 1950 F NFR Date Time Provider Department 12/23/24 MATEO MARMOLEJO During your visit today, we recorded the following information about you: Richard Cruz MA 12/23/2024 8:59 AM Signed Spoke with patients brotherGerson this morning. He states patient is scheduled with Dr. Kasi Eugene with wound care on 12/30/24. Wishes to cancel today's appointment with Dr. Marmolejo. While on phone with Gerson he mentioned patient saw Jackelin Ochoa for bladder issues. Was given samples on Gemtesa 75 mg PO daily. Getting relief from medication. Was advised further refills would need to come from pcp. Pended. Advise. YULISSA Cho Jeffrey A, MD 12/23/2024 2:06 PM Signed Please contact DR. Ochoa's office to see why patient is being told to get Gemtesa refill though me when she prescribed it? I don't even have a recent office note from her (which is unusual). Richard Cruz MA 12/23/2024 3:26 PM Signed Placed call to Dr. Ochoa's office. No answer. Left message for her nurse to call office back. YULISSA Cho Beth, LPN 12/23/2024 4:20 PM Signed Hayde Gómez from Dr Ochoa office returned call and went over notes below from Dr Marmolejo and what nurse charted also. She is going to discuss this with Dr Ochoa and call office back may be Friday since it is getting close to closing for them. Kendy Preston LPN 12/23/2024 4:37 PM Signed Gay calling from Dr Ochoa office said patient had stopped the Gemtesa and Dr Ochoa wanted her off the bladder medications. Patient had called their office earlier in the month on 12/03 was confused and going on about her wounds, patient did not know what provider she was supposed to be seeing. she had given her Dr Marmolejo office number to call. Gay plans to fax office visit notes and conversation notes from 12/[address] Marmolejo when she is back in the office. Taurus Chang MA 12/24/2024 3:12 PM Signed Received office note/given to PCP. Mateo Marmolejo MD 12/24/2024 3:32 PM Signed Let brother know we talked with Dr. Shine office and received copies of the last few office visits. When Mónica saw her on 12/22/[address] Ochoa she had not been taking the medication regularly and did not want to stay on it. Therefore it was stopped by the provider. Patient also told her she never picked up the script for the myrbetriq 50 mg. If this is not the case then he needs to reach out to Dr. Ochoa's Office. She never said Mónica had to get refills from her PCP. Monty Minor RN 12/25/2024 9:33 AM Signed Phoned pt to get permission to speak with her brother Gerson. Pt gave permission. Discussed provider's message below with pt. Pt states she did tell Dr. Ochoa she did not feel like she needed the medication because the urinary problem resolved. Pt unsure if it is because she took the medication. Pt states if she decides she wants to take it again she will call Dr. Ochoa. Phoned brotherGerson, and read provider's message below. Gerson verbalized understanding. Allergies As of Date: 12/23/2024 Noted Allergy Reaction LATEX 03/07/2021 16 - Unknown Date Reviewed: 12/03/2024 Reviewed by: Geneva Haney MA - Fully Assessed Reason for Visit: Medication Request [138] Wound Care [485] Prescriptions as of 12/25/2024 - allopurinol (ZYLOPRIM) 300 mg tablet Take 1 tablet by mouth once daily. For gout. - amLODIPine (NORVASC) 10 mg tablet Take 1 tablet by mouth once daily. PLEASE MAIL TO PATIENT;S HOME - PILL FILI - furosemide (LASIX) 40 mg tablet Take 1 tablet by mouth once daily. PLEASE MAIL TO PATIENT;S HOME - PILL FILI - lisinopril (ZESTRIL) 40 mg tablet Take 1 tablet by mouth once daily. PLEASE MAIL TO PATIENT'S HOME - PILL FILI - pravastatin (PRAVACHOL) 10 mg tablet Take 1 tablet by mouth once daily. PLEASE MAIL TO PATIENT'S HOME - PILL FILI - amoxicillin (AMOXIL) 500 mg capsule Please take 4 capsules by mouth 1 (one) hour prior to your dental appointment. - cephALEXin (KEFLEX) 500 mg capsule EVERY 6 HOURS - silver sulfADIAZINE (SILVADENE) 1 % cream - carbamide peroxide (DEBROX) 6.5 % otic solution Use 5 Drops in both ears two times a day. - cyanocobalamin (VITAMIN B-12) 1,000 mcg tab Take 1 tablet by mouth once daily. - levothyroxine (LEVOXYL) 150 mcg tablet Take 1 tablet by mouth once daily. Mon-Sat and none on Friday. PLEASE MAIL TO PATIENT'S HOME - PILL FILI - potassium chloride 20 mEq TbER Take 1 tablet by mouth once daily. - Cholecalciferol, Vitamin D3, (VITAMIN D-3) 50 mcg (2,000 unit) cap Take 1 capsule by mouth once daily. - acetaminophen (TYLENOL) 500 mg tablet Take 2 tablets by mouth every 8 hours as needed for pain. - polyethylene glycol 3350 17 gram packet Take 1 Packet by mouth once daily. Dissolve dose in 4 - 8 ounces of liquid (more content not included)... Normal [facility] Wheel [facility]er Office Visit Reporton 12-10-2024 Wheel [facility]er Office Visit Report [facility] [address], [address] [place] [address] OFFICE VISIT Date of Service: 12/10/24 MR#: [id number] Acct: [id number] Name: MÓNICA DECKER Rep #: [id number] : 1950 Provider: Dr. Shayla Light, Age/Sex: 74/F [place] [facility] [place]: Signed Intake Vital Signs 08/06/24 10:00 12/03/24 17:27 12/10/24 09:12 Height 4 ft 11 in 5 ft 5 ft Weight: 170 lb 4 oz BMI 33.2 BP 112/62 Intake Visit Reasons: ENDOMETRIAL THICKENING POSS. 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 Is patient in pain?: No Allergies Latex, Natural Rubber Allergy (Mild, Verified 12/10/24 09:42) Rash Medications ???Medication ???Instructions ???Recorded ???Confirmed ???Type levothyroxine 137 mcg tablet 150 mcg PO DAILY thyroid 01/06/20 12/10/24 History lisinopril 10 mg tablet 40 mg PO DAILY blood pressure 12/2512/10/24 History amlodipine 10 mg tablet (Norvasc) 10 mg PO DAILY 08/06/24 12/10/24 History furosemide 40 mg tablet (Lasix) 40 mg PO DAILY 08/06/24 12/10/24 H istory pravastatin 10 mg tablet 10 mg PO QHS 08/06/24 12/10/24 His tory nystatin 100,000 unit/gram topical 1 applic topical BID #30 grams 0 12/03/24 12/10/24 Rx powder allopurinol 300 mg tablet 300 mg PO QDAY 12/10/24 12/10/24 H istory doxycycline hyclate 100 mg capsule 100 mg PO QDAY 12/10/24 12/10/24 History mecobalamin (vitamin B12) 1,000 1,000 mcg PO QDAY 12/10/24 5 History mcg chewable tablet potassium chloride 20 mEq 20 meq PO QDAY 12/10/24 12/10/24 H istory tablet,extended release vibegron 75 mg tablet (Gemtesa) 75 mg PO QDAY 12/10/24 12/10/24 Hi story Is last menstrual period known: No Post menopausal: Yes Patient : No : No PFSH PFSH Medical History (Updated 12/10/24 @ 10:[address] Shayla Fay, DO) Urinary incontinence Gout Hypothyroid High cholesterol HTN (hypertension) Surgical History (Updated 12/10/24 @ 09:47 by Criselda Lee) Status post amputation of finger S/P bladder repair History of left hip replacement H/O thyroidectomy History of right hip replacement Family History (Updated 12/10/24 @ 09:47 by Criselda Lee) Father Colon cancer Mother Hypertension Social History (Updated 12/10/24 @ 09:48 by Criselda Lee) Smoking Status: Never smoker additional social history: Single History 0 Elective abortions Hx Para Spontaneous abortions Hx # Term Pregnancies Ectopic pregnancies Hx # Pregnancies Multiple births # of living children HPI ENDOMETRIAL THICKENING POSS. PÉREZ (GABRIELA) Details: MÓNICA DECKER is a 74 year old who presents for discussion about thickened endometrium measuring 12mm and some postmenopausal bleeding. This was found by Dr. Ochoa. She also suffers with HS and on doxy, sees the wound center for this. (She is a very poor historian and has a tangential thought process. ROS was difficult to obtain and keep her on track) ROS Const ROS Unobtainable: All systems reviewed are unremarkable except as noted in H Resp Resp: Reports system reviewed and no additional complaints, except as documented; Denies cough GI GI: Reports as per HPI Psych Psych: Reports system reviewed and no additional complaints, except as documented Exam Const General: cooperative, healthy appearing, comfortable and no acute distress Resp Effort Inspection: normal respiratory effort Other: Groin abscess that are oozing and different stages of healing present. Skin General: no rashes or lesions noted Psych Appearance: grossly normal Speech and Movement: speech and movement normal Coding Level of Care Code Off vis,new,level 5 Diagnoses Thickened endometrium R93.89 Postmenopausal bleeding N95.0 Assessment and Plan Assessment and Plan (1) Thickened endometrium: Status: Acute (2) Postmenopausal bleeding: Status: Acute Medications: Discontinued sulfamethoxazole-trime thoprim 800-160 mg Discontinued Reason: Order Completed 1 TAB PO BID 14 TABLETS 0RF sulfamethoxazole-trime thoprim 800-160 mg Discontinued Reason: Order Completed 1 TAB PO BID 20 TABLETS 0RF silver sulfadiazine 1% (SSD) apply a 1.5 mm thickness Discontinued Reason: Order Completed 1 applic topical BID 400 grams 0RF Plan continue antibiotics for HS will need hysteroscopy D C but based on her history after her last anesthesia, I want to ask anesthesia if they will consider spinal anesthesia. After discussing the patient's diagnosis and treatment plan options, patient wishes to proceed with surgical management. I have discussed with the patient the risks, benefits, and alternatives of the procedure which include but are not limited to risks of anesthesia, bleeding, (more content not included)... Normal [facility] Wound Cultureon 12-06-2024 Wound Culture Wound Culture #2,3 Clinical correlation necessary, Possible skin contamination. #3 Gram positive jina suggestive of a diphtheroid. Susceptibility not normally performed on this organism Proteus mirabilis Amount Growth 1+ Coag Negative Staph Coag Negative Staph GPR Amount Growth 1+ Gram positive jina Ampicillin Islt ESTEFANÍA >=32 Ampicillin+Sulbac Islt ESTEFANÍA >=32 R Cefepime Islt ESTEFANÍA 0.25 cefTRIAXone Islt ESTEFANÍA 2 I Ciprofloxacin Islt ESTEFANÍA <=0.06 S Gentamicin Islt ESTEFANÍA <=1 S levoFLOXacin Islt ESTEFANÍA <=0.12 S Meropenem Islt ESTEFANÍA <=0.25 S Pip+Tazo Islt ESTEFANÍA <=4 S TMP SMX Islt ESTEFANÍA <=20 S Normal [facility] Comment on above: Performed By: #### M 100.1999, M100.3000 #### [facility] [address] [place], [address] Gram Stainon 12-04-2024 GS Positive Normal [facility] Comment on above: Performed By: #### M 100.1999, M100.3000 #### [facility] [address] [place], [place], [id number] Absolute lymphocyte countOrd ered By: Kathleen Winkler on 12-03-2024 Lymphocytes Auto (Unsp spec) [#/Vol] 1.11 10*3/uL 0.83-4.51 [facility] Absolute neutrophil countOrd ered By: Kathleen Winkler on 12-03-2024 Neutrophils (Bld) [#/Vol] 7.7 10*3/uL 2.0-7.7 [facility] Automated lymphocyte count a s percentage of total leukocytesOrdered By: Kathleen Winkler on 12-03-2024 Lymphocytes/100 WBC Auto (Unsp spec) 11.4 % Low 19-41 [facility] Basic Metabolic Profile (BMP )on 12-03-2024 BUN/CRE 23.3 RATIO High 10-20 [facility] Comment on above: Performed By: #### P SUIV #### [facility] [address] [place], [place], [id number] CA,Total 9.5 mg/dL Normal 8.5-10.1 [facility] Comment on above: Performed By: #### P SUIV #### [facility] [address] [place], [address] Chloride [Moles/Vol] 100 mmol/L Normal 98-107 [facility] Comment on above: Performed By: #### P SUIV #### [facility] [address] [place], [address] CO2 [Moles/Vol] 24.0 mmol/L Normal 21.0-32.0 [facility] Comment on above: Performed By: #### P SUIV #### [facility] [address] [place], [address] Creatinine [Mass/Vol] 0.99 mg/dL Normal 0.55-1.02 [facility] Comment on above: Result Comment: The validity of the calculated GFR GFRAA in patients over 70 years has not been determined. Clinical correlation is essential. Performed By: #### P SUIV #### [facility] [address] [place], [address] ECRCL 46.27 ml/min Normal [facility] Comment on above: Performed By: #### P SUIV #### [facility] [address] [place], [address] EST GFR - AA 70 mL/min Normal >60 [facility] Comment on above: Result Comment: Afri can Nigerian GFR Calc Performed By: #### P SUIV #### [facility] [address] [place], [address] GAP 10 Normal 5-15 [facility] Comment on above: Performed By: #### P SUIV #### [facility] [address] [place], [address] GFR/1.73 sq M.predicted among non-blacks MDRD (S/P/Bld) [Vol rate/Area] 58 mL/min/{1.73_m2} Low >60 [facility] Comment on above: Result Comment: Non- GFR Calc Performed By: #### P SUIV #### [facility] [address] [place], [address] Glucose [Mass/Vol] 102 mg/dL Normal 74-106 [facility] Comment on above: Result Comment: Fast ing Glucose result from 100 to 125 mg/dL suggests IMPAIRED HOMEOSTASIS per A.D.A. criteria. Performed By: #### P SUIV #### [facility] [address] [place], [address] Potassium [Moles/Vol] 3.8 mmol/L Normal 3.5-5.1 [facility] Comment on above: Performed By: #### P SUIV #### [facility] [address] [place], [address] Sodium [Moles/Vol] 135 mmol/L Low 136-145 [facility] Comment on above: Performed By: #### P SUIV #### [facility] [address] [place], [address] Urea nitrogen [Mass/Vol] 23 mg/dL High 7-18 [facility] Comment on above: Performed By: #### P SUIV #### [facility] [address] [place], [address] Basophil percentageOrdered B y: Kathleen Winkler on 12-03-2024 Basophils/100 WBC (Bld) 0.5 % 0-1 [facility] Blood urea nitrogen (BUN)/cr eatinine ratioOrdered By: Kathleen Winkler on 12-03-2024 Urea nitrogen/Creatinine [Mass ratio] 23.3 mg/mg High 10-20 [facility] C-reactive protein measureme nt by high sensitivity methodOrdered By: Kathleen Winkler on 12-03-2024 C-Reactive Protein Extended Range 10.60 mg/L High 0.0-3.0 [facility] Comment on above: C-Reactive Protein ( CRP) provides useful information for thediagnosis, therapy and monitoring of inflammatory processesand associated diseases. For the evaluation of Relative Riskfor Cardiovascular Disease, a High Sensitivity CRP (HSCRP)should be ordered. C-reactive protein measurement by high sensitivity method 10.60 mg/L High 0.0-3.0 [facility] Comment on above: C-Reactive Protein ( CRP) provides useful information for thediagnosis, therapy and monitoring of inflammatory processesand associated diseases. For the evaluation of Relative Riskfor Cardiovascular Disease, a High Sensitivity CRP (HSCRP)should be ordered. CBC W/Diff, Automatedon -0 -2024 Absolute Lymph 1.11 X10 3/uL Normal 0.83-4.51 [facility] Comment on above: Performed By: #### L 501.6710, L100.0100, L500.2500 #### [facility] [address] [place], [address] Absolute Neut 7.7 X10 3/uL Normal 2.0-7.7 [facility] Comment on above: Performed By: #### L 501.6710, L100.0100, L500.2500 #### [facility] [address] [place], [address] Basophils/100 WBC (Bld) 0.5 % Normal 0-1 [facility] Comment on above: Performed By: #### L 501.6710, L100.0100, L500.2500 #### [facility] [address] [place], [address] Eosinophils/100 WBC (Bld) 1.0 % Normal 0-5 [facility] Comment on above: Performed By: #### L 501.6710, L100.0100, L500.2500 #### [facility] [address] [place], [address] Erythrocyte distribution width (RBC) [Ratio] 12.8 % Normal 11.6-14.6 [facility] Comment on above: Performed By: #### L 501.6710, L100.0100, L500.2500 #### [facility] [address] [place], [address] Hematocrit (Bld) [Volume fraction] 35.3 % Low 37-47 [facility] Comment on above: Performed By: #### L 501.6710, L100.0100, L500.2500 #### [facility] [address] [place], [address] Hemoglobin (Bld) [Mass/Vol] 11.9 g/dL Low 12.0-15.0 [facility] Comment on above: Performed By: #### L 501.6710, L100.0100, L500.2500 #### [facility] [address] [place], [address] IG% 0.500 Normal 0.0-0.9 [facility] Comment on above: Result Comment: IG% - Immature Granulocytes (promyelocytes, myelocytes and metamyelocytes) > 1% indicates that a LEFT SHIFT is Present. Performed By: #### L 501.6710, L100.0100, L500.2500 #### [facility] [address] [place], [address] Lymphocytes/100 WBC (Bld) 11.4 % Low 19-41 [facility] Comment on above: Performed By: #### L 501.6710, L100.0100, L500.2500 #### [facility] [address] [place], [address] MCH (RBC) [Entitic mass] 29.8 pg Normal 27.0-32.0 [facility] Comment on above: Performed By: #### L 501.6710, L100.0100, L500.2500 #### [facility] [address] [place], [address] MCHC (RBC) [Mass/Vol] 33.7 g/dL Normal 32-36 [facility] Comment on above: Performed By: #### L 501.6710, L100.0100, L500.2500 #### [facility] [address] [place], [address] MCV (RBC) [Entitic vol] 88.3 fL Normal 81-99 [facility] Comment on above: Performed By: #### L 501.6710, L100.0100, L500.2500 #### [facility] [address] [place], [address] Monocytes/100 WBC (Bld) 7.0 % Normal 0-10 [facility] Comment on above: Performed By: #### L 501.6710, L100.0100, L500.2500 #### [facility] [address] [place], [address] Neutrophils/100 WBC (Bld) 79.6 % High 47-70 [facility] Comment on above: Performed By: #### L 501.6710, L100.0100, L500.2500 #### [facility] [address] [place], [address] Nucleated RBC (Bld) [#/Vol] 0 10*3/uL Normal 0-5 [facility] Comment on above: Performed By: #### L 501.6710, L100.0100, L500.2500 #### [facility] [address] [place], [address] Platelet mean volume (Bld) [Entitic vol] 8.8 fL Normal 6.2-12.0 [facility] Comment on above: Performed By: #### L 501.6710, L100.0100, L500.2500 #### [facility] [address] [place], [address] Platelets (Bld) [#/Vol] 318 10*3/uL Normal 150-450 [facility] Comment on above: Performed By: #### L 501.6710, L100.0100, L500.2500 #### [facility] [address] [place], [address] RBC (Bld) [#/Vol] 4.00 10*6/uL Low 4.2-5.4 [facility] Comment on above: Performed By: #### L 501.6710, L100.0100, L500.2500 #### [facility] [address] [place], [address] RDW SD 41.2 fl Normal 35.1-43.9 [facility] Comment on above: Performed By: #### L 501.6710, L100.0100, L500.2500 #### [facility] [address] [place], [address] WBC (Bld) [#/Vol] 9.7 10*3/uL Normal 4.4-11.0 [facility] Comment on above: Performed By: #### L 501.6710, L100.0100, L500.2500 #### [facility] [address] [place], [address] CNOVon 12-03-2024 CNOV Office Visit (UCWSTR ) MÓNICA DECKER ([id number]) 1950 F NFR Date Time Provider Department 12/03/24 5:00 PM VALENTÍN [facility] During your visit today, we recorded the following information about you: Temperature Pulse Respiration Blood pressure 98.2 degrees 79/minute 18/minute 120/73 Weight 77.6 kg Valentín Mason PA 12/03/2024 5:19 PM Signed 74-year-old female presents for wound check. Patient states she has had wounds on her groin area for several months. They have gotten worse recently and are draining yellow fluid. Upon evaluation with dietitian teacher present, patient has yellow purulent drainage in bilateral inguinal canals. Right inguinal canal has large abscess present. Fluctuance noted with foul-smelling purulent drainage. Erythema noted. Concern for groin abscess with tunneling. Patient being referred to emergency room. Patient will take herself to ER. Patient will go to [place] [facility]. Allergies As of Date: 12/03/2024 Noted Allergy Reaction LATEX 03/07/2021 16 - Unknown Date Reviewed: 12/03/2024 Reviewed by: Geneva Haney MA - Fully Assessed Reason for Visit: Derm Problem [33] Cmt: 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 Primary Visit Diagnosis:Skin infection [L08.9] Prescriptions as of 12/03/2024 - amLODIPine (NORVASC) 10 mg tablet Take 1 tablet by mouth once daily. PLEASE MAIL TO PATIENT;S HOME - PILL FILI - furosemide (LASIX) 40 mg tablet Take 1 tablet by mouth once daily. PLEASE MAIL TO PATIENT;S HOME - PILL FILI - lisinopril (ZESTRIL) 40 mg tablet Take 1 tablet by mouth once daily. PLEASE MAIL TO PATIENT'S HOME - PILL FILI - pravastatin (PRAVACHOL) 10 mg tablet Take 1 tablet by mouth once daily. PLEASE MAIL TO PATIENT'S HOME - PILL FILI - amoxicillin (AMOXIL) 500 mg capsule Please take 4 capsules by mouth 1 (one) hour prior to your dental appointment. - cephALEXin (KEFLEX) 500 mg capsule EVERY 6 HOURS - silver sulfADIAZINE (SILVADENE) 1 % cream - carbamide peroxide (DEBROX) 6.5 % otic solution Use 5 Drops in both ears two times a day. - cyanocobalamin (VITAMIN B-12) 1,000 mcg tab Take 1 tablet by mouth once daily. - allopurinol (ZYLOPRIM) 300 mg tablet Take 1 tablet by mouth once daily. For gout. - levothyroxine (LEVOXYL) 150 mcg tablet Take 1 tablet by mouth once daily. Mon-Sat and none on Friday. PLEASE MAIL TO PATIENT'S HOME - PILL FILI - potassium chloride 20 mEq TbER Take 1 tablet by mouth once daily. - Cholecalciferol, Vitamin D3, (VITAMIN D-3) 50 mcg (2,000 unit) cap Take 1 capsule by mouth once daily. - acetaminophen (TYLENOL) 500 mg tablet Take 2 tablets by mouth every 8 hours as needed for pain. - polyethylene glycol 3350 17 gram packet Take 1 Packet by mouth once daily. Dissolve dose in 4 - 8 ounces of liquid and take as directed. Problem List As Of Date 12/03/2024 Noted Resolved SANDRA (obstructive sleep apnea) [G47.33] 07/08/2005 Allergic rhinitis [J30.9] 07/08/2005 Essential hypertension, benign [I10] 07/08/2005 NONTOX NODUL GOITER NOS [E04.9] 07/08/2005 09/04/2005 Postsurgical hypothyroidism [E89.0] 09/04/2005 Primary osteoarthritis of both hips [M16.0] 06/20/2015 Primary osteoarthritis of both knees [M17.0] 06/20/2015 Personal history of colonic polyps [Z86.0100] 03/14/2016 Hyperlipidemia, mixed [E78.2] 02/05/2018 Medicare annual wellness visit, subsequent [Z00*08/27/2018 Well adult exam [Z00.00] 08/27/2018 03/25/2020 Elevated hemoglobin A1c [R73.09] 08/27/2018 Screening for colon cancer [Z12.11] 08/27/2018 OAB (overactive bladder) [N32.81] 12/19/2020 Hammer toes of both feet [M20.41, M20.42] 01/24/2021 Foot callus [L84] 01/24/2021 Dystrophic nail [L60.3] 01/24/2021 Acute idiopathic gout involving toe of right fo*01/24/2021 Obesity, Class II, BMI 35-39.9 [E66.812] 02/19/2021 Advance directive discussed with patient [Z71.8*02/14/2022 Dermatitis [L30.9] 01/09/2023 Bilateral hip pain [M25.551, M25.552] 06/05/2023 S/P total right hip arthroplasty [Z96.641] 06/26/2023 S/P total left hip arthroplasty [Z96.642] 04/22/2024 Medication management [Z79.899] 07/23/2024 Low vitamin B12 level [R79.89] 07/26/2024 Urinary incontinence [R32] 07/28/2024 Ambulatory dysfunction [R26.2] 08/31/2024 Encounter Status:Closed by VALENTÍN MASON on 12/03/[address] [facility] CRPon 12-03-2024 C-REACTIVE PROT 10.60 mg/L High 0.0-3.0 [facility] Comment on above: Result Comment: C-Re active Protein (CRP) provides useful information for the diagnosis, therapy and monitoring of inflammatory processes and associated diseases. For the evaluation of Relative Risk for Cardiovascular Disease, a High Sensitivity CRP (HSCRP) should be ordered. Performed By: #### P SUIV #### [facility] [address] [place], [address] Carbon dioxide measurementOr dered By: Kathleen Winkler on 12-03-2024 CO2 [Moles/Vol] 24.0 mmol/L 21.0-32.0 [facility] Chloride measurementOrdered By: Kathleen Winkler on 12-03-2024 Chloride [Moles/Vol] 100 mmol/L 98-107 [facility] Emergency Department Summary on 12-03-2024 Emergency Department Summary [facility] Medical Records Department [address] [place] [address] Emergency Department Summary 12/03/24 MR#: [id number] Acct: [id number] Name: MÓNICA DECKER Rep #: [id number] : 1950 74 From: Kathleen Winkler DO PCP: Dr. Mateo Marmolejo MD Status:DEP ER Location: ED ADDENDUM by Dr. Ktahleen Winkler DO on 12/10/24 at 0759 Wound culture grew 1+ Proteus Mirabilis's, 1+ coag negative staph and 1+ gram-positive rods. Proteus Mirabilis has sensitivity to Bactrim but no listed sensitivities to tetracyclines. Will switch patient from doxycycline to Bactrim. 12/10/24 0759 Cosigner Signature (if applicable): cc: Dr. Mateo Marmolejo MD * Signed HPI History of Present Illness Chief Complaint: Wound Informant: patient Narrative Narrative: Patient is a 74-year-old female with history of hypertension and hypothyroidism presenting for evaluation for chronically draining wounds of her groin. Patient states has been going on for at least 6 months after she had her most recent hip surgery (performed through [facility]). She states that she has had pain which she did she thought was irritation as she wears feminine pad because of urinary incontinence all the time. She has had drainage from the area. It is become more painful which is what brought her to the emergency room today. She initially went to urgent care but they instructed her to the ER. She also notes that she has some irritation of her buttocks and perirectal area from where it feels that is chafing. She notes that when she was younger she would develop boils of her labia's but she would self treat once they came to ahead and pop them herself. She denies associated fever, chills, nausea or vomiting. She denies any history of diabetes. She has never seen anyone for them before. More recently she was applying rubbing alcohol to her inguinal area as well as Neosporin and this was helping with the pain but she was told that it is not good to continue to apply alcohol to it. [facility] Medical History Hypothyroid High cholesterol HTN (hypertension) Home Medications ???Medication ???Instructions ???Recorded ???Last Taken ???Type hydrochlorothiazide 25 mg tablet 25 mg PO DAILY blood pressure 12/2501/04/20 History Held on 08/06/24. Instructions: MD Ordered levothyroxine 137 mcg tablet 150 mcg PO DAILY thyroid 01/06/20 01/05/20 History lisinopril 10 mg tablet 40 mg PO DAILY blood pressure 12/2501/04/20 History amoxicillin 875 mg-potassium 875 mg PO Q12H #14 tabs 01/09/20 U nknown Rx clavulanate 125 mg tablet Held on 08/06/24. Instructions: Ordered cephalexin 500 mg capsule 500 mg PO Q6 #40 CAPSULES 02/12/21 Unknown Rx Held on 08/06/24. Instructions: Ordered sulfamethoxazole 800 1 tablet PO BID #14 TABLETS Unknown Rx mg-trimethoprim 160 mg tablet Held on 08/06/24. Instructions: Ordered acetaminophen 500 mg tablet (Pain 1,000 mg PO Q6H PRN pain 08/06/24 Unknown History Reliever (acetaminophen)) amlodipine 10 mg tablet (Norvasc) 10 mg PO DAILY 08/06/24 Unknown H istory furosemide 40 mg tablet (Lasix) 40 mg PO DAILY 08/06/24 Unknown Hi story polyethylene glycol 1 ea miscellaneous DAILY 08/06/24 Unknown History pravastatin 10 mg tablet 10 mg PO QHS 08/06/24 Unknown Hist ory silver sulfadiazine 1 % topical 1 applic topical BID #400 grams Unknown Rx cream (SSD) doxycycline hyclate 100 mg tablet 100 mg PO BID #28 tabs 12/03/24 U nknown Rx nystatin 100,000 unit/gram topical 1 applic topical BID #30 grams 0 12/03/24 Unknown Rx powder Allergy/AdvReac Type Severity Reaction Status Date / Time No Known Allergies Allergy Verified 12/03/24 17:28 Surgical History H/O thyroidectomy History of right hip replacement Social History Smoking Status: Never smoker ROS ROS ED Constitutional Constitutional ED: Denies chills or fever(s) Cardiovascular Cardiovascular: Denies chest pain Respiratory/Chest Respiratory/Chest: Denies cough Gastrointestinal Gastrointestinal: Reports other Details: Denies pain with defecation ; Denies abdominal pain, diarrhea, nausea or vomiting Genitourinary Genitourinary ED: Reports other Details: Chronic urinary incontinence ; Denies dysuria Musculoskeletal Musculoskeletal: Denies arthralgias or myalgias Integumentary Reports other Details: Draining wound in the bilateral inguinal area (right slightly worse than left) Neurologic Neurologic: Denies weakness Hematologic/Lymphatic Hematologic/Lymphatic: Denies easy bleeding or easy bruising EXAM Physical Exam Cons (more content not included)... Normal [facility] Eosinophil percentageOrdered By: Kathleen Winkler on 12-03-2024 Eosinophils/100 WBC (Bld) 1.0 % 0-5 [facility] Erythrocyte distribution wid th ratioOrdered By: Kathleen Winkler on 12-03-2024 Erythrocyte distribution width (RBC) [Ratio] 12.8 % 11.6-14.6 [facility] Erythrocyte distribution wid th standard deviationOrdered By: Kathleen Winkler on 12-03-2024 Erythrocyte distribution width (RBC) [Entitic vol] 41.2 fL 35.1-43.9 [facility] Erythrocyte distribution width (RBC) [Ratio] 41.2 fl 35.1-43.9 [facility] Estimated glomerular filtrat ion rate (GFR) AmericanOrdered By: Kathleen Winkler on 12-03-2024 Estimated GFR (MDRD) Amer 70 mL/min >60 [facility] Comment on above: GFR Calc Estimation of creatinine génesis aranceOrdered By: Kathleen Winkler on 12-03-2024 Estimated Creatinine Clearance Calc 46.27 ml/min [facility] Glomerular filtration rate ( GFR) estimationOrdered By: Kathleen Winkler on 12-03-2024 Estimated GFR (MDRD) Non-Af Amer 58 mL/min Low >60 [facility] Comment on above: Non- GFR Calc GFR/1.73 sq M.predicted among non-blacks MDRD (S/P/Bld) [Vol rate/Area] 58 mL/min/{1.73_m2} Low >60 [facility] Comment on above: Non- GFR Calc Glucose measurementOrdered B y: Kathleen Winkler on 12-03-2024 Glucose [Mass/Vol] 102 mg/dL 74-106 [facility] Comment on above: Fasting Glucose resu lt from 100 to 125 mg/dL suggests IMPAIRED HOMEOSTASIS per A.D.A. criteria. Gram stainOrdered By: Kathleen Winkler on 12-03-2024 Microscopic observation Gram stain Nom (Unsp spec) [facility] Hematocrit Auto (Bld) [Volum e fraction]Ordered By: Kathleen Winkler on 12-03-2024 Hematocrit (Bld) [Volume fraction] 35.3 % Low 37-47 [facility] Hemoglobin measurementOrdere d By: Kathleen Winkler on 12-03-2024 Hemoglobin (Bld) [Mass/Vol] 11.9 g/dL Low 12.0-15.0 [facility] Immature granulocytes/100 WB C Auto (Bld)Ordered By: Kathleen Winkler on 12-03-2024 Immature granulocytes/100 WBC (Bld) 0.500 % 0.0-0.9 [facility] Comment on above: IG% - Immature Granu locytes (promyelocytes, myelocytes and metamyelocytes) > 1% indicates that a LEFT SHIFT is Present. Lymphocytes Auto (Unsp spec) [#/Vol]Ordered By: Kathleen Winkler on 12-03-2024 Lymphocytes (Bld) [#/Vol] 1.11 10*3/uL 0.83-4.51 [facility] Lymphocytes/100 WBC Auto (Un sp spec)Ordered By: Kathleen Winkler on 12-03-2024 Lymphocytes/100 WBC (Bld) 11.4 % Low 19-41 [facility] MCV (mean corpuscular volume ) determinationOrdered By: Kathleen Winkler on 12-03-2024 MCV (RBC) [Entitic vol] 88.3 fL 81-99 [facility] Mean corpuscular hemoglobin (MCH) determinationOrdered By: Kathleen Winkler on 12-03-2024 MCH (RBC) [Entitic mass] 29.8 pg 27.0-32.0 [facility] Mean corpuscular hemoglobin concentration (MCHC) determinationOrdered By: Kathleen Winkler on 12-03-2024 MCHC (RBC) [Mass/Vol] 33.7 g/dL 32-36 [facility] Mean platelet volume determi nationOrdered By: Kathleen Winkler on 12-03-2024 Platelet mean volume (Bld) [Entitic vol] 8.8 fL 6.2-12.0 [facility] Monocyte percentageOrdered B y: Kathleen Winkler on 12-03-2024 Monocytes/100 WBC (Bld) 7.0 % 0-10 [facility] Neutrophil percentageOrdered By: Kathleen Winkler on 12-03-2024 Neutrophils/100 WBC (Bld) 79.6 % High 47-70 [facility] Nucleated red blood cell per centageOrdered By: Kathleen Winkler on 12-03-2024 Nucleated RBC/100 WBC (Bld) [Ratio] 0 % 0-5 [facility] Platelet countOrdered By: Ortiz Winkler on 12-03-2024 Platelets (Bld) [#/Vol] 318 10*3/uL 150-450 [facility] Potassium measurementOrdered By: Kathleen Winkler on 12-03-2024 Potassium [Moles/Vol] 3.8 mmol/L 3.5-5.1 [facility] RBC Auto (Bld) [#/Vol]Ordere d By: Kathleen Winkler on 12-03-2024 RBC (Bld) [#/Vol] 4.00 10*6/uL Low 4.2-5.4 [facility] Routine wound cultureOrdered By: Kathleen Winkler on 12-03-2024 Wound Culture Proteus mirabilis Abnormal [facility] Wound Culture Negative Abnormal [facility] Wound Culture Positive Abnormal [facility] Serum anion gap measurementO rdered By: Kathleen Winkler on 12-03-2024 Anion gap [Moles/Vol] 10 mmol/L 5-15 [facility] Serum or plasma calcium edmond urement (mass/volume)Ordered By: Kathleen Winkler on 12-03-2024 Calcium [Mass/Vol] 9.5 mg/dL 8.5-10.1 [facility] Serum or plasma creatinine m easurement (mass/volume)Ordered By: Kathleen Winkler on 12-03-2024 Creatinine [Mass/Vol] 0.99 mg/dL 0.55-1.02 [facility] Comment on above: The validity of the calculated GFR & GFRAA in patients over 70 years has not been determined. Clinical correlation is essential. Serum or plasma urea nitroge n measurement (mass/volume)Ordered By: Kathleen Winkler on 12-03-2024 Urea nitrogen [Mass/Vol] 23 mg/dL High 7-18 [facility] Sodium levelOrdered By: Sam Winkler on 12-03-2024 Sodium [Moles/Vol] 135 mmol/L Low 136-145 [facility] White blood cell (WBC) count Ordered By: Kathleen Winkler on 12-03-2024 WBC (Bld) [#/Vol] 9.7 10*3/uL 4.4-11.0 [facility] CNOVon 11-10-2024 CNOV Office Visit (VILLAIWR ) MÓNICA DECKER ([id number]) 1950 F NFR Date Time Provider Department 11/10/24 11:00 AM SARAH YING During your visit today, we recorded the following information about you: Pulse Respiration Blood pressure Weight 75/minute 6/minute 122/78 78.5 kg Esther Worrell MA 11/10/2024 6:33 PM Signed Patient presents with her brother. FLYNN 08/11/24 and patient was to follow up after MRI. Pt cancelled her scheduled MRI, because she want to do it. Pt reports she is doing well except for spots and drips of blood sometimes and sometimes not. From my pelvis to my asshole. That can't be clean with wounds like that and reports that it started after her hip surgery but unable to say who's addressing her sores. YULISSA Tafoya Chitra, MD 11/10/2024 6:33 PM Signed [facility] New Patient Evaluation Date: August 11, 2024 Patient Name: Mónica Decker [facility] was asked by Dr. Marmolejo to evaluate Mónica Decker. Our recommendations of care will be communicated by shared medical record. Reason for Evaluation/Chief complaint: memory problems Accompanied by: Brother Ross SUBJECTIVE: HPI: Mónica Decker is a 74 year old Right handed female who presents to the [facility] for an initial evaluation. Patient has been seen and referred by Dr. Mateo Marmolejo. Patient has a pertinent PMHx significant for Hypertension, hyperlipidemia , sandra,, hypothyroidism. , gout. 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 08/09/24 Brother and patient noted after her hip surgery 04/19/24,4 months ago, her memory issues started and they are only getting worse. First off she was confused after surgery which did not happen in her previous hip surgery and she had to be in the hospital for 1 week and then to a rehab for 4 weeks. It is only during that time that they started noticing more cognitive issues. Prior to surgery she was unable to walk but now she is able to walk much better. 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 She was able to just inch a couple inches at a time without lifting her legs prior to the surgery. Now after physical therapy she is little better and is able to at least lift her feet off the floor She has significantly improved after that, and she is slowly getting better. She stopped reading the books she used to. She has no interest in reading the books she used to read. 11/10/23: Patient was seen in follow up, she did not get her MRI brain with quant done. After discussing her options she opted to get it done No changes in short term memory, language and mood since the last time Short-term Memory: Repeats questions/statements: NO Misplacing items around the house: NO Difficulty remembering details of recent conversations within a few hours: NO Difficulty remembering names of familiar people (not family or friends): NO Missed some appointments or major events due to memory changes: NO Language: Word-finding difficulty: YES Fluency: YES Difficulty understanding conversations: NO Difficulty with reading or writing: NO Difficulty with reading comprehension: NO Mood: normal Neurobehavioral symptoms: normal Sleep: normal Parkinsonism: normal REVIEW OF SYSTEMS: Weight change/Appetite: losing weight Hearing: a little decreased Vision: no change Constipation, Diarrhea: no Incontinence: no Chest pain: No Edema: No Dyspnea: No Falls/injuries/acciden ts: No NEURO: SEE HPI No outside records provided to review. INTERNAL RECORDS: The patient's electronic medical record was reviewed. The relevant details are summarized in this note. Functional Evaluation: B-ADLs: (I=independent,A=kitty tance,D=dependent) ?Bathing: I , Dressing: I , Toileting: I , Transferring: I , Continence: I , Feeding: I I-ADLs: Transportation: I , Medications: I , Handle Finances: I, she is able to cook, cleans her home, laundry, can use the phone. She does her shopping on her own, except when heavy lifting is involved as she has 24 cats. Then brother helps for helping her get this. OBJECTIVE: PHYSICAL EXAM: Vitals: BP 122/78 Pulse 75 Resp 6 Wt 78.5 kg (173 lb) BMI 33.79 kg/m? General appearance: Sitting upright. Appears stated age. No acute distress. Non-toxic appearing. No hypomimia. Lungs: Clear to auscultation bilaterally Heart: RRR Neuro: Mental Status: Alert, oriented to person, place, and time. Follows commands. Answering questions appropriately. No dysarthria or (more content not included)... Normal [facility] CNOVon 10-28-2024 CNOV Office Visit (PODIWS ) MÓNICA DECKER ([id number]) 1950 F NFR Date Time Provider Department 10/28/24 1:15 PM LÓPEZ RANDALL PODIWS During your visit today, we recorded the following information about you: López Randall 11/01/2024 7:48 AM Signed Subjective: Patient presents to clinic c/o painful toenails. They state that the nails are especially painful with shoe gear and pressure. Patient states that nails 1-5 b/l are painful. No other pedal complaints at this time. Patient states no change in medications or medical history since last visit. Objective: Patient presents to clinic ambulating in [facility] Vasc: DP and PT pulses are faintly palpable bilateral. CFT is less than 5 seconds bilateral. Skin temperature is warm to cool proximal to distal bilateral. There is no edema or varicosities noted. Neuro: Protective sensation is intact to the foot and toes when tested with the 5.07 SWM bilateral. Vibratory sensation is decreased at the hallux IPJ bilateral. The hallux is downgoing bilateral. Derm: Nails 1-5 b/l are painful, discolored-yellow, thick, crumbly, dystrophic and with subungal debris. Skin is of normal turgor, texture and hair growth is present bilateral. There are no hyperkeratosis, ulcerations, scars, verruca or other lesions noted. Ortho: Muscle strength is 5/5 for all pedal groups tested. Ankle joint DF is decreased with the knee extended with no pain or crepitus noted. 1st MPJ ROM is decreased bilateral. Assessment: (B35.1) Onychomycosis (primary encounter diagnosis) (M79.675) Pain in toe of left foot (M79.674) Pain in toe of right foot Plan: Patient was seen and evaluated. Nails 1-5 bilateral were debrided in length and thickness. Patient is to RTC in 3-4 months. López Randall DPM Referring Provider: SELF [200] Allergies As of Date: 10/28/2024 Noted Allergy Reaction LATEX 03/07/2021 16 - Unknown Date Reviewed: 10/28/2024 Reviewed by: Kendy Powell MA - Fully Assessed Reason for Visit: Established Patient [175] Cmt: Nail care Established Patient [175] Cmt: Nail care Primary Visit Diagnosis:Onychomycosi s [B35.1] Other Visit Diagnoses:Pain in toe of left foot [M79.675] Pain in toe of right foot [M79.674] Prescriptions as of 11/01/2024 - amoxicillin (AMOXIL) 500 mg capsule Please take 4 capsules by mouth 1 (one) hour prior to your dental appointment. - cephALEXin (KEFLEX) 500 mg capsule EVERY 6 HOURS - silver sulfADIAZINE (SILVADENE) 1 % cream APPLY TO AFFECTED AREA TWICE A DAY WITH 1.5MM THICKNESS - carbamide peroxide (DEBROX) 6.5 % otic solution Use 5 Drops in both ears two times a day. - cyanocobalamin (VITAMIN B-12) 1,000 mcg tab Take 1 tablet by mouth once daily. - allopurinol (ZYLOPRIM) 300 mg tablet Take 1 tablet by mouth once daily. For gout. - levothyroxine (LEVOXYL) 150 mcg tablet Take 1 tablet by mouth once daily. Mon-Sat and none on Friday. PLEASE MAIL TO PATIENT'S HOME - PILL FILI - potassium chloride 20 mEq TbER Take 1 tablet by mouth once daily. - amLODIPine (NORVASC) 10 mg tablet Take 1 tablet by mouth once daily. PLEASE MAIL TO PATIENT;S HOME - PILL FILI - furosemide (LASIX) 40 mg tablet Take 1 tablet by mouth once daily. PLEASE MAIL TO PATIENT;S HOME - PILL FILI - lisinopril (ZESTRIL) 40 mg tablet Take 1 tablet by mouth once daily. PLEASE MAIL TO PATIENT'S HOME - PILL FILI - pravastatin (PRAVACHOL) 10 mg tablet Take 1 tablet by mouth once daily. PLEASE MAIL TO PATIENT'S HOME - PILL FILI - Cholecalciferol, Vitamin D3, (VITAMIN D-3) 50 mcg (2,000 unit) cap Take 1 capsule by mouth once daily. - acetaminophen (TYLENOL) 500 mg tablet Take 2 tablets by mouth every 8 hours as needed for pain. - polyethylene glycol 3350 17 gram packet Take 1 Packet by mouth once daily. Dissolve dose in 4 - 8 ounces of liquid and take as directed. Problem List As Of Date 10/28/2024 Noted Resolved SANDRA (obstructive sleep apnea) [G47.33] 07/08/2005 Allergic rhinitis [J30.9] 07/08/2005 Essential hypertension, benign [I10] 07/08/2005 NONTOX NODUL GOITER NOS [E04.9] 07/08/2005 09/04/2005 Postsurgical hypothyroidism [E89.0] 09/04/2005 Primary osteoarthritis of both hips [M16.0] 06/20/2015 Primary osteoarthritis of both knees [M17.0] 06/20/2015 Personal history of colonic polyps [Z86.0100] 03/14/2016 Hyperlipidemia, mixed [E78.2] 02/05/2018 Medicare annual wellness visit, subsequent [Z00*08/27/2018 Well adult exam [Z00.00] 08/27/2018 03/25/2020 Elevated hemoglobin A1c [R73.09] 08/27/2018 Screening for colon cancer [Z12.11] 08/27/2018 OAB (overactive bladder) [N32.81] 12/19/2020 Hammer toes of both feet [M20.41, M20.42] 01/24/2021 Foot callus [L84] 01/24/2021 Dystrophic nail [L60.3] 01/24/2021 Acute idiopathic gout involving toe of right fo*01/24/2021 Obesity, Class II, BMI 35-39.9 [E66.812] 02/19/2021 Advance directive discussed with tiny (more content not included)... Normal [facility] CNPNon 10-06-2024 CNPN Telephone (ELYMDNA) MÓNICA DECKER ([id number]) 1950 F NFR Date Time Provider Department 10/06/24 JULIO CESAR DELUNA During your visit today, we recorded the following information about you: Daisy Morales 10/06/2024 10:57 AM Signed Patients brother calling stating that she is going to have dental work on 10/11/24 and she will need antibiotics. Please send script to [facility] in [place]. Allergies As of Date: 10/06/2024 Noted Allergy Reaction LATEX 03/07/2021 16 - Unknown Date Reviewed: 08/16/2024 Reviewed by: Jai Patino, OD - Fully Assessed Reason for Visit: Medication Request [138] Primary Visit Diagnosis:Status post left hip replacement [Z96.642] Other Visit Diagnosis:Status post right hip replacement [Z96.641] Order(s):amoxicillin (AMOXIL) 500 mg capsulePlease take 4 capsules by mouth 1 (one) hour prior to your dental appointment.Disp: 4 capsuleRfl: 3 Prescriptions as of 10/06/2024 - amoxicillin (AMOXIL) 500 mg capsule Please take 4 capsules by mouth 1 (one) hour prior to your dental appointment. - cephALEXin (KEFLEX) 500 mg capsule EVERY 6 HOURS - silver sulfADIAZINE (SILVADENE) 1 % cream APPLY TO AFFECTED AREA TWICE A DAY WITH 1.5MM THICKNESS - carbamide peroxide (DEBROX) 6.5 % otic solution Use 5 Drops in both ears two times a day. - cyanocobalamin (VITAMIN B-12) 1,000 mcg tab Take 1 tablet by mouth once daily. - allopurinol (ZYLOPRIM) 300 mg tablet Take 1 tablet by mouth once daily. For gout. - levothyroxine (LEVOXYL) 150 mcg tablet Take 1 tablet by mouth once daily. Mon-Sat and none on Friday. PLEASE MAIL TO PATIENT'S HOME - PILL FILI - potassium chloride 20 mEq TbER Take 1 tablet by mouth once daily. - amLODIPine (NORVASC) 10 mg tablet Take 1 tablet by mouth once daily. PLEASE MAIL TO PATIENT;S HOME - PILL FILI - furosemide (LASIX) 40 mg tablet Take 1 tablet by mouth once daily. PLEASE MAIL TO PATIENT;S HOME - PILL FILI - lisinopril (ZESTRIL) 40 mg tablet Take 1 tablet by mouth once daily. PLEASE MAIL TO PATIENT'S HOME - PILL FILI - pravastatin (PRAVACHOL) 10 mg tablet Take 1 tablet by mouth once daily. PLEASE MAIL TO PATIENT'S HOME - PILL FILI - Cholecalciferol, Vitamin D3, (VITAMIN D-3) 50 mcg (2,000 unit) cap Take 1 capsule by mouth once daily. - acetaminophen (TYLENOL) 500 mg tablet Take 2 tablets by mouth every 8 hours as needed for pain. - polyethylene glycol 3350 17 gram packet Take 1 Packet by mouth once daily. Dissolve dose in 4 - 8 ounces of liquid and take as directed. Problem List As Of Date 10/06/2024 Noted Resolved SANDRA (obstructive sleep apnea) [G47.33] 07/08/2005 Allergic rhinitis [J30.9] 07/08/2005 Essential hypertension, benign [I10] 07/08/2005 NONTOX NODUL GOITER NOS [E04.9] 07/08/2005 09/04/2005 Postsurgical hypothyroidism [E89.0] 09/04/2005 Primary osteoarthritis of both hips [M16.0] 06/20/2015 Primary osteoarthritis of both knees [M17.0] 06/20/2015 Personal history of colonic polyps [Z86.0100] 03/14/2016 Hyperlipidemia, mixed [E78.2] 02/05/2018 Medicare annual wellness visit, subsequent [Z00*08/27/2018 Well adult exam [Z00.00] 08/27/2018 03/25/2020 Elevated hemoglobin A1c [R73.09] 08/27/2018 Screening for colon cancer [Z12.11] 08/27/2018 OAB (overactive bladder) [N32.81] 12/19/2020 Hammer toes of both feet [M20.41, M20.42] 01/24/2021 Foot callus [L84] 01/24/2021 Dystrophic nail [L60.3] 01/24/2021 Acute idiopathic gout involving toe of right fo*01/24/2021 Obesity, Class II, BMI 35-39.9 [E66.812] 02/19/2021 Advance directive discussed with patient [Z71.8*02/14/2022 Dermatitis [L30.9] 01/09/2023 Bilateral hip pain [M25.551, M25.552] 06/05/2023 S/P total right hip arthroplasty [Z96.641] 06/26/2023 S/P total left hip arthroplasty [Z96.642] 04/22/2024 Medication management [Z79.899] 07/23/2024 Low vitamin B12 level [R79.89] 07/26/2024 Urinary incontinence [R32] 07/28/2024 Ambulatory dysfunction [R26.2] 08/31/2024 Prescriptions ordered this encounter Disp Refills Start End AMOXICILLIN 500 MG CAPSULE 4 ca* 3 10/06/2024 Sig: Please take 4 capsules by mouth 1 (one) hour prior to your dental appointment. Medications Discontinued During This Encounter Prescriptions - amoxicillin (AMOXIL) 500 mg capsule (Discontinued) Please take 4 capsules by mouth 1 (one) hour prior to your dental appointment. Encounter Status:Closed by HERMINIO LARA on 10/06/[address] [facility] CNTHERAPYon 09-14-2024 CNTHERAPY OT/PT/Speech Visit (PTWS) BRIANNEMÓNICA ([id number]) 1950 F NFR Date Time Provider Department 09/14/24 1:30 PM NELSON AMADO PTWS Date Time Provider Department Center 09/14/2024 1:30 PM [id number], [facility] PTWS Siddharthluis Yee Reason for Visit: Physical Therapy [503] PT Discharge [752] Primary Visit Diagnosis:Ambulatory dysfunction [R26.2] Allergies As of Date: 09/14/2024 Noted Allergy Reaction LATEX 03/07/2021 16 - Unknown Date Reviewed: 08/16/2024 Reviewed by: Jai Patino OD - Fully Assessed Prescriptions as of 03/08/2025 - levothyroxine (LEVOXYL) 150 mcg tablet Take 1 tablet by mouth once daily. Mon-Fri and none on Friday. PLEASE MAIL TO PATIENT'S HOME - PILL FILI - donepezil (ARICEPT) 5 mg tablet TAKE 1 TABLET BY MOUTH DAILY AFTER BREAKFAST. - cyanocobalamin (VITAMIN B-12) 1,000 mcg tab Take 1 tablet by mouth once daily. - doxycycline (VIBRA-TABS) 100 mg tablet Take 100 mg by mouth two times a day. 45 days - allopurinol (ZYLOPRIM) 300 mg tablet Take 1 tablet by mouth once daily. For gout. - amLODIPine (NORVASC) 10 mg tablet Take 1 tablet by mouth once daily. PLEASE MAIL TO PATIENT;S HOME - PILL FILI - furosemide (LASIX) 40 mg tablet Take 1 tablet by mouth once daily. PLEASE MAIL TO PATIENT;S HOME - PILL FILI - lisinopril (ZESTRIL) 40 mg tablet Take 1 tablet by mouth once daily. PLEASE MAIL TO PATIENT'S HOME - PILL FILI - pravastatin (PRAVACHOL) 10 mg tablet Take 1 tablet by mouth once daily. PLEASE MAIL TO PATIENT'S HOME - PILL FILI - silver sulfADIAZINE (SILVADENE) 1 % cream - potassium chloride 20 mEq TbER Take 1 tablet by mouth once daily. - acetaminophen (TYLENOL) 500 mg tablet Take 2 tablets by mouth every 8 hours as needed for pain. - polyethylene glycol 3350 17 gram packet Take 1 Packet by mouth once daily. Dissolve dose in 4 - 8 ounces of liquid and take as directed. Normal [facility] Pelvic (Non )on 08-27 Pelvic (Non ) [facility] [address] [place], [place] [address] Pelvic (Non ) MR#: [id number] Acct: [id number] Name: MÓNICA DECKER Rep #: [id number] : 1950 F 74 From: Joey Hewitt MD PCP: Dr. Mateo Marmolejo MD Status: REG CLI Study: Pelvic (Non ) Date of Exam: 09/07/24 Exam# [id number] Ordering Dr: Jackelin Ochoa MD [id number] STUDY: ULTRASOUND OF THE FEMALE PELVIS - COMPLETE REASON FOR EXAM: Female, 74 years old. ABNORMAL VAGINAL BLEEDING LMP: Unknown. TECHNIQUE: Transabdominal TECHNICAL QUALITY: Adequate. COMPARISON: None. FINDINGS: The uterus is anteverted and is in a midline position. The uterus measures 7.6 x 4.6 x 3.5 cm. Normal uterine cervix. The endometrium measures 12 mm in thickness, and is hyperechoic. There is no demonstrated endometrial mass. 1 cm round hypoechoic mass within the anterior body of uterus consistent with an intramural fibroid. I.U.D. - The patient does not have an I.U.D. The right ovary is visualized. The right ovary measures 3.4 x 2.0 x 2.2 cm. There is no right ovarian cyst or ovarian mass. There is no visualized right adnexal mass or complex lesion. There is normal arterial and normal venous vascularity. The left ovary is visualized. The left ovary measures 2.5 x 3.0 x 2.8 cm. There is no left ovarian cyst or ovarian mass. There is no visualized left adnexal mass or complex lesion. There is normal arterial and normal venous vascularity. There is no fluid in the cul-de-sac. The pre void volume of the bladder was ml. The post void volume of the bladder was ml. Polycystic ovary disease: No. US/Pelvic (Non ) IMPRESSION: Small fibroid in the anterior body of the the uterus but overall normal sized uterus. Electronically Signed: Joey Hewitt MD at 13:29 EST , CC: Dr. Jackelin Ochoa MD; Dr. Mateo Marmolejo MD Credit Control Assistant: Signed [facility] [id number] 08-31-2024 [id number] HNO ID: [id number] Author: NELSON AMADO PT Service: ? Author Type: Physical Therapist Type: [id number] Filed: 08/31/2024 12:16 Note Text: [facility] Physical Therapy Plan of Care Certification Patient Name: Mónica Decker : 1950 [facility] #: [id number] Date: 08/31/2024 To: Sarah Ying MD From Therapist: Nelson Amado PT RE: Patient Certification/ Recertification Your review, approval and electronic signature are required in order to comply with Payor: MEDICARE / Plan: MEDICARE A AND B / Product Type: Medicare / regulations. The identified Physical Therapy PLAN OF CARE for the patient is as follows: R26.2 Ambulatory dysfunction PLAN OF CARE: Assessment: Mónica Decker presents with chief complaint of leg weakness that interferes with stair negotiation . The patient presents with impairments in gait, overall function, range of motion, and strength. Patient did not complete the PROMIS? (Patient Reported Outcome Measures Information System). Prognosis for therapy is Good due to: current objective clinical presentation . The patient will benefit from skilled therapy services to meet the goals established for this plan of care as noted below. Goals for Episode of Care: established 08/31/24 PT will demo improvement in knee flexion and extension by 15 degrees or greater to improve gait quality and greater ease of stair negotiation [place] in home exercise program. Perform walking and chores with decreased reports of pain in 8 weeks or less Patient Goals: Outlive my animals Time Frame for Goals and Treatment : 10/26/24 Planned Interventions, Frequency, and Duration: Current Frequency: 1x/week Duration: 4 weeks Total Number of Visits Planned: 4 Planned Treatment Interventions: Therapeutic exercise (72174), Neuromuscular re-education (13407), Manual therapy (51371), Therapeutic activities (10140), Self-jail management (86824), Patient/Family/Caregiv er Education, Gait Training (90787) PLAN FOR NEXT VISIT: Work on improving knee ROM bilaterally Patient demonstrates good understanding of plan of care and treatment. The above goals and plan of care were discussed and agreed upon by patient/family. For further details regarding this patient refer to the Physical Therapy electronically documented visit dated 08/31/2024. Provider Attestation I have reviewed the treatment plan for Mónica Decker, CCF# [id number] for the period of 08/31/24 -- 10/05/24, established on 08/31/2024. Signature certifies the need for therapy services. Normal [facility] CNTHERAPYon 08-31-2024 CNTHERAPY OT/PT/Speech Visit (PTWS) MÓNICA DECKER ([id number]) 1950 F NFR Date Time Provider Department 08/31/24 10:15 AM NELSON AMADO PTWS Date Time Provider Department [place] 08/31/2024 10:15 AM [id number], [facility] PTWS Siddharth Yee Reason for Visit: PT Eval [747] Visit Diagnosis:Ambulatory dysfunction [R26.2] Allergies As of Date: 08/31/2024 Noted Allergy Reaction LATEX 03/07/2021 16 - Unknown Date Reviewed: 08/16/2024 Reviewed by: Jai Patino OD - Fully Assessed Prescriptions as of 08/31/2024 - cephALEXin (KEFLEX) 500 mg capsule EVERY 6 HOURS - silver sulfADIAZINE (SILVADENE) 1 % cream APPLY TO AFFECTED AREA TWICE A DAY WITH 1.5MM THICKNESS - carbamide peroxide (DEBROX) 6.5 % otic solution Use 5 Drops in both ears two times a day. - cyanocobalamin (VITAMIN B-12) 1,000 mcg tab Take 1 tablet by mouth once daily. - allopurinol (ZYLOPRIM) 300 mg tablet Take 1 tablet by mouth once daily. For gout. - levothyroxine (LEVOXYL) 150 mcg tablet Take 1 tablet by mouth once daily. Mon-Fri and none on Friday. PLEASE MAIL TO PATIENT'S HOME - PILL FILI - potassium chloride 20 mEq TbER Take 1 tablet by mouth once daily. - amLODIPine (NORVASC) 10 mg tablet Take 1 tablet by mouth once daily. PLEASE MAIL TO PATIENT;S HOME - PILL FILI - furosemide (LASIX) 40 mg tablet Take 1 tablet by mouth once daily. PLEASE MAIL TO PATIENT;S HOME - PILL FILI - lisinopril (ZESTRIL) 40 mg tablet Take 1 tablet by mouth once daily. PLEASE MAIL TO PATIENT'S HOME - PILL FILI - pravastatin (PRAVACHOL) 10 mg tablet Take 1 tablet by mouth once daily. PLEASE MAIL TO PATIENT'S HOME - PILL FILI - Cholecalciferol, Vitamin D3, (VITAMIN D-3) 50 mcg (2,000 unit) cap Take 1 capsule by mouth once daily. - acetaminophen (TYLENOL) 500 mg tablet Take 2 tablets by mouth every 8 hours as needed for pain. - polyethylene glycol 3350 17 gram packet Take 1 Packet by mouth once daily. Dissolve dose in 4 - 8 ounces of liquid and take as directed. - amoxicillin (AMOXIL) 500 mg capsule Please take 4 capsules by mouth 1 (one) hour prior to your dental appointment. 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 (PT/OT/Speech/Resp) ID: [id number] 08/31/2024 10:56 AM Author: NELSON AMADO Signed by NELSON AMADO PT on 08/31/2024 at 10:56 AM Document text: Program_ID:[id number] Access Code: [email or web address] URL: [email or web address] Date: 08-31-2024 Prepared By: Nelson Amado Program Notes Exercises - Supine Heel Slide with Strap - 1 x daily - 7 x weekly - 4 sets - 10 reps - Supine Heel Slide with Strap - 1 x daily - 7 x weekly - 4 sets - 10 reps - Supine Knee Extension Stretch on Towel Roll - 1 x daily - 7 x weekly - 4 sets - 10 reps - Supine Knee Extension Stretch on Towel Roll - 1 x daily - 7 x weekly - 4 sets - 10 reps -- Normal [facility] THERAPY NTon 08-31-2024 THERAPY NT HNO ID: [id number] Author: NELSON AMADO, SHARI Service: ? Author Type: Physical Therapist Type: Therapy (PT/OT/Speech/Resp) Filed: 08/31/2024 10:56 Note Text: Program_ID:[id number] Access Code: [email or web address] URL: [email or web address] Date: 08-31-2024 Prepared By: Nelson Amado Program Notes Exercises - Supine Heel Slide with Strap - 1 x daily - 7 x weekly - 4 sets - 10 reps - Supine Heel Slide with Strap - 1 x daily - 7 x weekly - 4 sets - 10 reps - Supine Knee Extension Stretch on Towel Roll - 1 x daily - 7 x weekly - 4 sets - 10 reps - Supine Knee Extension Stretch on Towel Roll - 1 x daily - 7 x weekly - 4 sets - [address] [facility] CNOVon 08-11-2024 CNOV Office Visit (GERIWR ) BRIANNEMÓNICA Mary ([id number]) 1950 F NFR Date Time Provider Department 08/11/24 9:30 AM SARAH YING During your visit today, we recorded the following information about you: Pulse Respiration Blood pressure Weight Normal [facility] XR Hip - left AP and Lateral on 05-08-2024 IMPRESSION: Stable THAs Credit Control Assistant: JONNY Transcribe Date/Time: May 08 2024 10:03A Dictated by : BERNARDO STEINBERG MD This examination was interpreted and the report reviewed and electronically signed by: BERNARDO STEINBERG MD on May 08 2024 10:04AM [facility] * * *Final Report* * * DATE OF EXAM: May 06 2024 8:17AM NIKHIL 5279 - XR HIP 2V AP/ LAT LT / PROCEDURE REASON: M25.552-Pain in left hip * * * * Physician Interpretation * * * * PROCEDURE: Left hip INDICATION: Pain in left hip .1st follow-up for left hip replacement TECHNIQUE: XR AP pelvis, crosstable lateral left hip COMPARISON: 04/21/2024 FINDINGS: Bilateral total hip arthroplasties remain in satisfactory position without evidence for loosening. No periprosthetic fracture. Interval resolution of left-sided postoperative soft tissue emphysema. [facility] Provider, [facility] - 05/08/2024 * * *Final Report* * * DATE OF EXAM: May 06 2024 8:17AM NIKHIL 5279 - XR HIP 2V AP/ LAT LT / PROCEDURE REASON: M25.552-Pain in left hip * * * * Physician Interpretation * * * * PROCEDURE: Left hip INDICATION: Pain in left hip .1st follow-up for left hip replacement TECHNIQUE: XR AP pelvis, crosstable lateral left hip COMPARISON: 04/21/2024 FINDINGS: Bilateral total hip arthroplasties remain in satisfactory position without evidence for loosening. No periprosthetic fracture. Interval resolution of left-sided postoperative soft tissue emphysema. IMPRESSION IMPRESSION: Stable THAs Credit Control Assistant: JONNY Transcribe Date/Time: May 08 2024 10:03A Dictated by : BERNARDO STEINBERG MD This examination was interpreted and the report reviewed and electronically signed by: BERNARDO STEINBERG MD on May 08 2024 10:04AM EST [facility] XR Hip - left AP and Lateral Ordered By: [facility] Provider on 05-08-2024 [facility] XR HIP 2V AP/ LAT LTon 05-06 XR HIP 2V AP/ LAT LT * * *Final Report* * * DATE OF EXAM: May 06 2024 8:17AM NIKHIL 5279 - XR HIP 2V AP/ LAT LT / PROCEDURE REASON: M25.552-Pain in left hip * * * * Physician Interpretation * * * * PROCEDURE: Left hip INDICATION: Pain in left hip .1st follow-up for left hip replacement TECHNIQUE: XR AP pelvis, crosstable lateral left hip COMPARISON: 04/21/2024 FINDINGS: Bilateral total hip arthroplasties remain in satisfactory position without evidence for loosening. No periprosthetic fracture. Interval resolution of left-sided postoperative soft tissue emphysema. IMPRESSION: Stable THAs Credit Control Assistant: PSCB Transcribe Date/Time: May 08 2024 10:03A Dictated by : BERNARDO STEINBERG MD This examination was interpreted and the report reviewed and electronically signed by: BERNARDO STEINBERG MD on May 08 2024 10:04AM EST [id number] [facility] XR Hip - left AP and Lateral on 05-06-2024 Radiology Study observation (narrative[facility] CASE MANAGEMon 04-25-2024 CASE MANAGEM HNO ID: [id number] Author: MIKAELA TAN RN Service: ? Author Type: Registered Nurse Type: Care Mgt Progress Note Filed: 04/25/2024 16:45 Note Text: CARE MANAGEMENT DISCHARGE NOTE SERVICE DATE: April 25, 2024 SERVICE TIME: 4:43 PM Admission Date: 04/21/2024 LOS: 3 days Discharge Arrangement Discharge Arrangement: Senior Care Facility Was an expedited discharge program used?: No Services Arranged D/C to SNF Provider Name: [facility] Caregiver Assessment NA Transportation Arrangements Transportation Arrangements: Ambulance Transportation Agency and Phone #:: [facility] [phone] Date of Trip: 04/25/24 Time of Trip: 1830 Type of Service: BLS Non-emergency Is Patient Medicaid Pending?: No Destination: [facility] Financial Care Management Responsibility: None Handoff Communication: Handoff to: Primary Care Physician Primary Care Physician Name/Phone: Mateo Marmolejo MD Additional Information: Pts' BrotherGerson notified of D/c today to SNF Discharge Information Row Name Admission (Current) from 04/21/2024 in [facility] Rosey SIGNATURE: Mikaela Tan RN PATIENT NAME: Mónica Decker DATE: April 25, 2024 TIME: 4:43 PM CONTACT #: [phone] [facility] CASE MANAGEM HNO ID: [id number] Author: MIKAELA TAN RN Service: ? Author Type: Registered Nurse Type: Care Mgt Progress Note Filed: 04/25/2024 16:21 Note Text: CARE MANAGEMENT PROGRESS NOTE SERVICE DATE: 04/25/2024 SERVICE TIME: 11:06 AM LOS: 3 days Texts sent to Physicians and RN re D/C today to SNF [address] [facility] can accept today via, 6:30 PM [facility] Pulmonary Care Nurse. SIGNATURE: Mikaela Tan RN,BSN, ACM PATIENT NAME: Mónica Decker DATE: April 25, 2024 TIME: 3:35 PM PAGER/CONTACT #: [phone] [facility] THERAPY NTon 04-25-2024 THERAPY NT HNO ID: [id number] Author: SHAYLA LEE PT Service: Physical Therapy Author Type: Physical Therapist Type: Therapy (PT/OT/Speech/Resp) Filed: 04/25/2024 11:44 Note Text: Physical Therapy Treatment Summary SERVICE DATE: 04/25/2024 SERVICE TIME: 1015 to 1050 ROOM: [place] [address] PT 6 Clicks Score: 14 Total Joint Replacement Discharge Readiness: Not Applicable DISCHARGE RECOMMENDATIONS Subacute/SNF Recommended Discharge Disposition Comments: continued rehab indicated for safety and mobility. Patient is unable to maintain PWB restrictions and needs assist for mobility which exceeds ability to return home independently Recommended Discharge Disposition Due to: Functional deficits requiring ongoing therapy service prior to discharge home., Anticipated community discharge, Functional status decline Recommended Discharge Equipment: No equipment needs anticipated ASSESSMENT Response to Therapy Interventions: Good Participation in Activities, Needs Frequent Redirection or Reinstruction, Slow Progression with Functional Activities/Skills Pt tolerated session without c/o pain in L LE. Pt was able to increase ambulation distance this session however continues to require constant step by step cues to compete task with proper WB and hip precautions. Pt was able to verbalize 1/3 hip precautions at this time. Pt educated on the importance of maintaining hip precautions. Pt encouraged to sit up in bedside chair during the day to prevent further decline. 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 R COTY 2022 HOME LIVING Patient Lives With: Self/Alone Assistance Available: PRN, Other: See Comment Comments: Brother 5 miles away on same property Entry To Home: Stairs, Ramp Number Of Stairs Into Home: 3 Number Of Stairs To Bed/Bath: 0 - ranch home Tub/Shower Type: combo; + shower bench. Laundry: basement, brother can complete Equipment Owned: Cane, Walker- Standard, Lift Chair, Elevated Toilet Seat, Grab Bars- Toilet, Hand Held Shower, Histology Assistant PRIOR FUNCTIONAL LEVEL Unable to Report Patient poor historian Per clinical judgement patient was independent with functional mobility and ADLS as she lives alone. Patient reports she still drives. Brother assists PRN however unknown level/frequency of assist. SUBJECTIVE Pt reports that it only hurts when she moves THERAPY DIAGNOSIS Reduced mobility-other, Difficulty walking-musculoskeleta l TREATMENT INTERVENTIONS Therapeutic Exercise (31459), Therapeutic Activity (23829), Gait Training (61263) Timed Code Treatment (minutes): 30 Skilled Treatment Time (minutes): 30 TRAINING AND EDUCATION PROVIDED Anatomy and Impact on Deficits, Assistive Device Use, Bed Mobility, Benefits of In-Hospital Mobility, Discharge Planning, Exercise Program, Gait Pattern, Reduction of Deviations, Falls Prevention, Patient Exercise/Therapy Program Support Needs, Precautions/Restrictio ns, Role of Physical Therapy, Transfers THERAPEUTIC SKILLS USED Activity Dosing, Cues for Sequencing/Proper Technique for Activity, Cuing Verbal, Cuing Visual, Movement Facilitation, Physical Assist FUNCTIONAL STATUS Bed Mobility Supine To Sit: Moderate Assistance, Additional Information step by step cues for sequencing, cues for L THR safety Sit to Supine: Additional Information pt remained seated in bedside chair at the end of the session Scooting: Moderate Assistance, Additional Information use of draw sheet. Step by step cues for sequencing Transfers Sit To Stand: Minimal Assistance, Additional Information cues for hand placement and maintaining hip precautions however pt unable to stand without height of bed elevated and pt requesting to pull up on walker Stand To Sit: Minimal Assistance, Additional Information cues for hand placement, hip precautions, positioning of perative leg and controlled descent Bed to Chair Contact Guard Assistance, Additional Information Bed To Chair Transfer Type: Stepping Bed To Chair Transfer Equipment: Wheeled Walker, Gait Belt Gait Contact Guard Assistance, Additional Information step to gait pattern completed with step by step cues to progress and maintain WB status Gait Device: Wheeled Walker General Deviations/Observation s: [place] decreased, Difficulty changing direction/turning, Flexed trunk posture, Narrow Base of Support, Step length decreased, Visual scanning/environmental awareness decreased Gait Distance (feet): 45 Gait Deviations Right Lower Extremity: Knee flexion during stance increased, Lacks full knee e (more content not included)... Normal Basic metabolic 2000 panelon 04-24-2024 Anion gap [Moles/Vol] 9 mmol/L Normal 8-15 [facility] Comment on above: Order Comment: Speci men Type: BLOOD SPECIMENOrdering Facility: [facility] Address: [address] [place] [address] Performed By: #### 2 4321-2 ####[facility]ORY[facility]IA [id number] [place] [id number] [place] Calcium [Mass/Vol] 8.7 mg/dL Normal 8.5-10.2 Comment on above: Order Comment: Speci men Type: BLOOD SPECIMENOrdering Facility: [facility] Address: [address] [id number] Performed By: #### 2 4321-2 ####[facility] LABORATORYCLIA [id number] [place] [id number] [place] Chloride [Moles/Vol] 102 mmol/L Normal 98-107 [facility] Comment on above: Order Comment: Speci men Type: BLOOD SPECIMENOrdering Facility: [facility] Address: [address] [place] [address] Performed By: #### 2 4321-2 ####[facility] LABORATORYCLIA [id number] [place] [address] [place] CO2 [Moles/Vol] 27 mmol/L Normal 22-30 Comment on above: Order Comment: Speci men Type: BLOOD SPECIMENOrdering Facility: [facility] Address: [address] [place] [address] Performed By: #### 2 4321-2 ####[facility] LABORATORYCLIA [id number] [place] [address] [place] Creatinine [Mass/Vol] 0.79 mg/dL Normal 0.58-0.96 [facility] Comment on above: Order Comment: Speci men Type: BLOOD SPECIMENOrdering Facility: [facility] Address: [address] [place] [address] Performed By: #### 2 4321-2 ####[facility] LABORATORYCLIA [id number] [address] Creatinine and Glomerular filtration rate.predicted panel (S/P/Bld) 78 mL/min/1.73m??? Normal >=60 Comment on above: Order Comment: Jeri isidro Type: BLOOD SPECIMENOrdering Facility: [facility] Address: [address] [place] [address] Result Comment: Ashley mated Glomerular Filtration Rate (eGFR) is calculated using the 2020 CKD-EPI creatinine equation. This equation utilizes serum creatinine, sex, and age as parameters. The creatinine assay has traceable calibration to isotope dilution-mass spectrometry. Refer to KDIGO guidelines for clinical interpretation. In patients with unstable renal function, e.g. those with acute kidney injury, the eGFR may not accurately reflect actual GFR. Performed By: #### 2 4321-2 ####[facility] LABORATORYCLIA [id number] [place] [id number] [place] Glucose [Mass/Vol] 111 mg/dL High 74-99 Comment on above: Order Comment: Jeri isidro Type: BLOOD SPECIMENOrdering Facility: [facility] Address: [address] [id number] Result Comment: The [place] [employer] (ADA) provides guidance for cutoff values for fasting glucose and random glucose. The ADA defines fasting as no caloric intake for at least 8 hours. Fasting plasma glucose results between 100 to 125 mg/dL indicate increased risk for diabetes (prediabetes). Fasting plasma glucose results greater than or equal to 126 mg/dL meet the criteria for diagnosis of diabetes. In the absence of unequivocal hyperglycemia, results should be confirmed by repeat testing. In a patient with classic symptoms of hyperglycemia or hyperglycemic crisis, random plasma glucose results greater than or equal to 200 mg/dL meet the criteria for diagnosis of diabetes. Reference: Standards of Medical Care in Diabetes 2016, [place] [employer]. Diabetes Care. 2016.39(Suppl 1). Performed By: #### 2 4321-2 ####[facility] LABORATORYCLIA [id number] [place] [address] [place] Potassium [Moles/Vol] 4.2 mmol/L Normal 3.7-5.1 [facility] Comment on above: Order Comment: Jeri [facility] Type: BLOOD SPECIMENOrdering Facility: [facility] Address: [address] [place] [address] Performed By: #### 2 4321-2 ####[facility] LABORATORYCLIA [id number] [address] [place] Sodium [Moles/Vol] 138 mmol/L Normal 136-144 Comment on above: Order Comment: Jeri [facility] Type: BLOOD SPECIMENOrdering Facility: [facility] Address: [address] [id number] Performed By: #### 2 4321-2 ####[facility] LABORATORYCLIA [id number] [place] [address] [place] Urea nitrogen [Mass/Vol] 12 mg/dL Normal 7-21 Comment on above: Order Comment: Jeri [facility] Type: BLOOD SPECIMENOrdering Facility: [facility] Address: [address] [id number] Performed By: #### 2 4321-2 ####[facility] LABORATORYCLIA [id number] [address] CBC panel Auto (Bld)on 04-24 Erythrocyte distribution width (RBC) [Ratio] 12.3 % Normal 11.5-15.0 Comment on above: Order Comment: Speci men Type: BLOOD SPECIMENOrdering Facility: [facility] Address: [address] [place] [address] Performed By: #### 5 8410-2 ####[facility] LABORATORYCLIA [id number] [address] Hematocrit (Bld) [Volume fraction] 30.4 % Low 36.0-46.0 Comment on above: Order Comment: Speci men Type: BLOOD SPECIMENOrdering Facility: [facility] Address: [address] [place] [address] Performed By: #### 5 8410-2 ####[facility] LABORATORYCLIA [id number] [address] Hemoglobin (Bld) [Mass/Vol] 10.1 g/dL Low 11.5-15.5 Comment on above: Order Comment: Speci men Type: BLOOD SPECIMENOrdering Facility: [facility] Address: [address] [place] [address] Performed By: #### 5 8410-2 ####[facility] LABORATORYCLIA [id number] [address] MCH (RBC) [Entitic mass] 29.6 pg Normal 26.0-34.0 Comment on above: Order Comment: Speci men Type: BLOOD SPECIMENOrdering Facility: [facility] Address: [address] [place] [address] Performed By: #### 5 8410-2 ####[facility] LABORATORYCLIA [id number] [address] MCHC (RBC) [Mass/Vol] 33.2 g/dL Normal 30.5-36.0 [facility] Comment on above: Order Comment: Speci men Type: BLOOD SPECIMENOrdering Facility: [facility] Address: [address] [place] [address] Performed By: #### 5 8410-2 ####[facility] LABORATORYCLIA [id number] [place] [address] [place] MCV (RBC) [Entitic vol] 89.1 fL Normal 80.0-100.0 [facility] Comment on above: Order Comment: Speci men Type: BLOOD SPECIMENOrdering Facility: [facility] Address: [address] [place] [address] Performed By: #### 5 8410-2 ####[facility] LABORATORYCLIA [id number] [place] [address] [place] Nucleated RBC (Bld) [#/Vol] 10*3/uL Normal <0.01 Comment on above: Order Comment: Speci men Type: BLOOD SPECIMENOrdering Facility: [facility] Address: [address] [place] [address] Performed By: #### 5 8410-2 ####[facility] LABORATORYCLIA [id number] [place] [address] [place] Platelet mean volume (Bld) [Entitic vol] 9.3 fL Normal 9.0-12.7 Comment on above: Order Comment: Speci men Type: BLOOD SPECIMENOrdering Facility: [facility] Address: [address] [place] [address] Performed By: #### 5 8410-2 ####[facility] LABORATORYCLIA [id number] [place] [address] [place] Platelets (Bld) [#/Vol] 211 10*3/uL Normal 150-400 Comment on above: Order Comment: Speci men Type: BLOOD SPECIMENOrdering Facility: [facility] Address: [facility] [place] [address] Performed By: #### 5 8410-2 ####[facility] LABORATORYCLIA [id number] [place] [address] [place] RBC (Bld) [#/Vol] 3.41 10*6/uL Low 3.90-5.20 [facility] Comment on above: Order Comment: Speci men Type: BLOOD SPECIMENOrdering Facility: [facility] Address: [address] [place], [place] [address] Performed By: #### 5 8410-2 ####[facility] LABORATORYCLIA [id number] [address] WBC (Bld) [#/Vol] 8.29 10*3/uL Normal 3.70-11.00 [facility] Comment on above: Order Comment: Speci men Type: BLOOD SPECIMENOrdering Facility: [facility] Address: [address] [place], [place] [address] Performed By: #### 5 8410-2 ####M[facility] LABORATORYCLIA [id number] [address] [id number] [facility] THERAPY NTon 04-24-2024 THERAPY NT HNO ID: [id number] Author: ELIOT FELIPE, PT Service: Physical Therapy Author Type: Physical Therapist Type: Therapy (PT/OT/Speech/Resp) Filed: 04/24/2024 09:34 Note Text: Physical Therapy Treatment Summary SERVICE DATE: 04/24/2024 SERVICE TIME: 0833 to 0910 ROOM: [address] [address] PT 6 Clicks Score: 14 Total Joint Replacement Discharge Readiness: Not Applicable DISCHARGE RECOMMENDATIONS Subacute/SNF Recommended Discharge Disposition Comments: continued rehab indicated for safety and mobility. Patient is unable to maintain PWB restrictions and needs assist for mobility which exceeds ability to return home independently Recommended Discharge Disposition Due to: Functional deficits requiring ongoing therapy service prior to discharge home., Anticipated community discharge, Functional status decline Recommended Discharge Equipment: No equipment needs anticipated ASSESSMENT Response to Therapy Interventions: Good Participation in Activities patient needed cues to stay on task PRECAUTIONS Bed/Chair Alarm, Fall Risk, Hip Precautions - Posterior Dislocation, Lines/Tubes/Drains, Posterior Hip Precautions, Weight Bearing Restrictions, Impulsive with Activity Left Lower Extremity Weight Bearing Status: 50% PWB CURRENT HOSPITAL COURSE s/p COTY L 04/21/24 Relevant Past Medical History: HTN, HLD, white coat syndrome, anxiety, obesity, fractures elbow with decreased ROM, 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 R COTY 2022 HOME LIVING Patient Lives With: Self/Alone Assistance Available: PRN, Other: See Comment Comments: Brother 5 miles away on same property Entry To Home: Stairs, Ramp Number Of Stairs Into Home: 3 Number Of Stairs To Bed/Bath: 0 - ranch home Tub/Shower Type: combo; + shower bench. Laundry: basement, brother can complete Equipment Owned: Cane, Walker- Standard, Lift Chair, Elevated Toilet Seat, Grab Bars- Toilet, Hand Held Shower, Histology Assistant PRIOR FUNCTIONAL LEVEL Unable to Report Patient poor historian Per clinical judgement patient was independent with functional mobility and ADLS as she lives alone. Patient reports she still drives. Brother assists PRN however unknown level/frequency of assist. SUBJECTIVE pt worried about her cats and her bad reaction to anesthesia. Patient states she is claustrophobic and does not like being in closed spaces. Wants to know why her brother is making decisions for her. THERAPY DIAGNOSIS Reduced mobility-other, Difficulty walking-musculoskeleta l TREATMENT INTERVENTIONS Therapeutic Exercise (74576), Therapeutic Activity (21916), Gait Training (58550) Timed Code Treatment (minutes): 33 Skilled Treatment Time (minutes): 33 TRAINING AND EDUCATION PROVIDED Assistive Device Use, Bed Mobility, Benefits of In-Hospital Mobility, Curb Step Navigation, Discharge Planning, Disease Specific Education, Exercise Program, Gait Pattern, Reduction of Deviations, Role of Physical Therapy, Transfers THERAPEUTIC SKILLS USED Activity Dosing, Cues for Sequencing/Proper Technique for Activity, Cuing Tactile, Cuing Verbal, Physical Assist FUNCTIONAL STATUS Bed Mobility Supine To Sit: Moderate Assistance step by step cues for sequencing, cues for L THR safety Sit to Supine: Moderate Assistance, Additional Information Scooting: Minimal Assistance use of draw sheet. Step by step cues for sequencing Transfers Sit To Stand: Minimal Assistance cues for Hand placement, abiding WB status, THR safety Stand To Sit: Minimal Assistance cues for hand placement and THR safety Bed to Chair Contact Guard Assistance, Additional Information Bed To Chair Transfer Type: Stepping Bed To Chair Transfer Equipment: Wheeled Walker, Gait Belt Gait Contact Guard Assistance step by step cues for sequening and abiding by WB status Gait Device: Wheeled Walker General Deviations/Observation s: [place] decreased, Difficulty changing direction/turning, Flexed trunk posture Gait Distance (feet): 35 feet Stairs Additional Information GOALS Patient will demonstrate progress with functional mobility to allow safe discharge to home with available support and/or physical assistance., Patient will demonstrate progress to optimize functional mobility, maximize activity tolerance and endurance to maximize function upon discharge. Transfer Supine to/from Sit with: Minimal Assistance Transfer Sit to/from Stand with: (met for min assist, progress to S) Ambulate with: (met for min assist progress to SBA) Distance: met for 30 feet, progress to 50 feet Device: Wheeled Walker Ambulate Up and Down Curb Step with: Moderate Assistance Device: Wheeled Walker Goal: Patient verbalizes and demontrates understanding of hip precautions with functional mobility (was able to verbalize 1/3 precautions) Rehab Potential: Good Progress Toward Goals: Progressing slower than expected PLAN PT Frequency: Twice Daily Treatment Interventions: Education, Self (more content not included)... Normal Basic metabolic 2000 panelon 04-23-2024 Anion gap [Moles/Vol] 12 mmol/L Normal 8-15 [facility] Comment on above: Order Comment: Speci men Type: BLOOD SPECIMENOrdering Facility: [facility] Address: [address] [place] [address] Performed By: #### 2 4321-2 ####[facility] LABORATORYCLIA [id number] [place] [address] [place] Calcium [Mass/Vol] 9.0 mg/dL Normal 8.5-10.2 Comment on above: Order Comment: Valei men Type: BLOOD SPECIMENOrdering Facility: [facility] Address: [address] [place] [address] Performed By: #### 2 4321-2 ####[facility] LABORATORYCLIA [id number] [place] [address] [place] Chloride [Moles/Vol] 102 mmol/L Normal 98-107 [facility] Comment on above: Order Comment: Speci men Type: BLOOD SPECIMENOrdering Facility: [facility] Address: [address] [place] [address] Performed By: #### 2 4321-2 ####[facility] LABORATORYCLIA [id number] [place] [address] [place] CO2 [Moles/Vol] 25 mmol/L Normal 22-30 Comment on above: Order Comment: Speci men Type: BLOOD SPECIMENOrdering Facility: [facility] Address: [address] [place] [address] Performed By: #### 2 4321-2 ####M[facility] LABORATORYCLIA [id number] [address] [id number] [place] Creatinine [Mass/Vol] 0.71 mg/dL Normal 0.58-0.96 [facility] Comment on above: Order Comment: Jeri felix Type: BLOOD SPECIMENOrdering Facility: [facility] Address: [address] [place] [address] Performed By: #### 2 4321-2 ####[facility] LABORATORYCLIA [id number] [address] Creatinine and Glomerular filtration rate.predicted panel (S/P/Bld) 89 mL/min/1.73m??? Normal >=60 Comment on above: Order Comment: [facility] Type: BLOOD SPECIMENOrdering Facility: [facility] Address: [address] [place] [address] Result Comment: Ashley mated Glomerular Filtration Rate (eGFR) is calculated using the 2020 CKD-EPI creatinine equation. This equation utilizes serum creatinine, sex, and age as parameters. The creatinine assay has traceable calibration to isotope dilution-mass spectrometry. Refer to KDIGO guidelines for clinical interpretation. In patients with unstable renal function, e.g. those with acute kidney injury, the eGFR may not accurately reflect actual GFR. Performed By: #### 2 4321-2 ####M[facility] LABORATORYCLIA [id number] [address] [place] Glucose [Mass/Vol] 110 mg/dL High 74-99 Comment on above: Order Comment: Jeri [facility] Type: BLOOD SPECIMENOrdering Facility: [facility] Address: [address] [place] [address] Result Comment: The [place] Diabetes Association (ADA) provides guidance for cutoff values for fasting glucose and random glucose. The ADA defines fasting as no caloric intake for at least 8 hours. Fasting plasma glucose results between 100 to 125 mg/dL indicate increased risk for diabetes (prediabetes). Fasting plasma glucose results greater than or equal to 126 mg/dL meet the criteria for diagnosis of diabetes. In the absence of unequivocal hyperglycemia, results should be confirmed by repeat testing. In a patient with classic symptoms of hyperglycemia or hyperglycemic crisis, random plasma glucose results greater than or equal to 200 mg/dL meet the criteria for diagnosis of diabetes. Reference: Standards of Medical Care in Diabetes 2016, [place] [employer]. Diabetes Care. 2016.39(Suppl 1). Performed By: #### 2 4321-2 ####M[facility] LABORATORYCLIA [id number] [address] STATES OF [facility] Potassium [Moles/Vol] 3.6 mmol/L Low 3.7-5.1 [facility] Comment on above: Order Comment: Speci men Type: BLOOD SPECIMENOrdering Facility: [facility] Address: [address] [place] [address] Performed By: #### 2 4321-2 ####M[facility] LABORATORYCLIA [id number] [address] Sodium [Moles/Vol] 139 mmol/L Normal 136-144 Comment on above: Order Comment: Speci men Type: BLOOD SPECIMENOrdering Facility: [facility] Address: [address] [place] [address] Performed By: #### 2 4321-2 ####M[facility] LABORATORYCLIA [id number] [address] Urea nitrogen [Mass/Vol] 9 mg/dL Normal 7-21 Comment on above: Order Comment: Valei men Type: BLOOD SPECIMENOrdering Facility: [facility] Address: [address] [place] [address] Performed By: #### 2 4321-2 ####MALAVE LABORATORYCLIA [id number] [address] [place] CBC panel Auto (Bld)on 04-23 Erythrocyte distribution width (RBC) [Ratio] 12.3 % Normal 11.5-15.0 Comment on above: Order Comment: Valei men Type: BLOOD SPECIMENOrdering Facility: [facility] Address: [address] [place] [address] Performed By: #### 5 8410-2 ####M[facility] LABORATORYCLIA [id number] [address] [place] Hematocrit (Bld) [Volume fraction] 33.6 % Low 36.0-46.0 Comment on above: Order Comment: Speci men Type: BLOOD SPECIMENOrdering Facility: [facility] Address: [address] [place] [address] Performed By: #### 5 8410-2 ####M[facility] LABORATORYCLIA [id number] [place] [address] [place] Hemoglobin (Bld) [Mass/Vol] 11.4 g/dL Low 11.5-15.5 Comment on above: Order Comment: Speci men Type: BLOOD SPECIMENOrdering Facility: [facility] Address: [address] [place] [address] Performed By: #### 5 8410-2 ####MAL[facility] LABORATORYCLIA [id number] [address] [place] MCH (RBC) [Entitic mass] 30.1 pg Normal 26.0-34.0 Comment on above: Order Comment: Speci men Type: BLOOD SPECIMENOrdering Facility: [facility] Address: [address] [place] [address] Performed By: #### 5 8410-2 ####M[facility] LABORATORYCLIA [id number] [address] [place] MCHC (RBC) [Mass/Vol] 33.9 g/dL Normal 30.5-36.0 [facility] Comment on above: Order Comment: Speci men Type: BLOOD SPECIMENOrdering Facility: [facility] Address: [address] [place] [address] Performed By: #### 5 8410-2 ####MALAVE LABORATORYCLIA [id number] [address] [place] MCV (RBC) [Entitic vol] 88.7 fL Normal 80.0-100.0 [facility] Comment on above: Order Comment: Speci men Type: BLOOD SPECIMENOrdering Facility: [facility] Address: [address] [place] [address] Performed By: #### 5 8410-2 ####MALAVE LABORATORYCLIA [id number] [place] [address] [place] Nucleated RBC (Bld) [#/Vol] 10*3/uL Normal <0.01 Comment on above: Order Comment: Speci men Type: BLOOD SPECIMENOrdering Facility: [facility] Address: [address] [place] [address] Performed By: #### 5 8410-2 ####MAL[facility] LABORATORYCLIA [id number] [place] [address] [place] Platelet mean volume (Bld) [Entitic vol] 9.5 fL Normal 9.0-12.7 Comment on above: Order Comment: Speci men Type: BLOOD SPECIMENOrdering Facility: [facility] Address: [address] [place] [address] Performed By: #### 5 8410-2 ####MALAVE LABORATORYCLIA [id number] [address] [place] Platelets (Bld) [#/Vol] 221 10*3/uL Normal 150-400 Comment on above: Order Comment: Speci men Type: BLOOD SPECIMENOrdering Facility: [facility] Address: [address] [place] [address] Performed By: #### 5 8410-2 ####MALAVE LABORATORYCLIA [id number] [place] [address] [place] RBC (Bld) [#/Vol] 3.79 10*6/uL Low 3.90-5.20 [facility] Comment on above: Order Comment: Speci men Type: BLOOD SPECIMENOrdering Facility: [facility] Address: [address] [place] [address] Performed By: #### 5 8410-2 ####MAL[facility] LABORATORYCLIA [id number] [address] [place] WBC (Bld) [#/Vol] 9.80 10*3/uL Normal 3.70-11.00 [facility] Comment on above: Order Comment: Speci men Type: BLOOD SPECIMENOrdering Facility: [facility] Address: [address], [place] [address] Performed By: #### 5 8410-2 ####MALAVE [facility] [id number] [place] [address] [facility] THERAPY NTon 04-23-2024 THERAPY NT HNO ID: [id number] Author: [place] PTA Service: Physical Therapy Author Type: Premium Card Cancellation Clerk Type: Therapy (PT/OT/Speech/Resp) Filed: 04/23/2024 16:11 Note Text: Attestation signed by Kathya Maki, PT at 04/24/2024 7:15 AM I reviewed and agree with the documentation corresponding to this therapy visit. SIGNATURE: Kathya Maki, PT DATE: April 24, 2024 TIME: 7:15 AM Summary: PT Treat Physical Therapy Treatment Summary SERVICE DATE: 04/23/2024 SERVICE TIME: 1542 to 1601 ROOM: [place] [address] PT 6 Clicks Score: 14 Total Joint Replacement Discharge Readiness: Not Applicable DISCHARGE RECOMMENDATIONS Subacute/SNF Recommended Discharge Disposition Comments: continue to recommend SNF at d/c for safety, decreased ability to follow commands, assistance for mobility, and would not be appropriate to return home alone at this time, decreased mobility than previous functioning level Recommended Discharge Disposition Due to: Functional deficits requiring ongoing therapy service prior to discharge home., Patient requires active, intensive rehabilitation by multiple therapy disciplines. Anticipate the patient will tolerate 3 hours of therapy per day., Balance deficits, Functional status decline, Motor planning deficits, Requires multiple therapy disciplines, Anticipated community discharge Recommended Discharge Equipment: No equipment needs anticipated ASSESSMENT Response to Therapy Interventions: Good Participation in Activities, Pain, Requires Additional Time to Complete Activities pt tolerated session well. pt required additonal time to complete activity. Pt slighly confused calling FWW a cane than a cart. pt also forrgetting which leg had surguy. pt would continue to benifit skilled therapy following hospital d/c. 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 R COTY 2022 HOME LIVING Patient Lives With: Self/Alone Assistance Available: PRN, Other: See Comment Comments: Brother 5 miles away on same property Entry To Home: Stairs, Ramp Number Of Stairs Into Home: 3 Number Of Stairs To Bed/Bath: 0 - ranch home Tub/Shower Type: combo; + shower bench. Laundry: basement, brother can complete Equipment Owned: Cane, Walker- Standard, Lift Chair, Elevated Toilet Seat, Grab Bars- Toilet, Hand Held Shower, Histology Assistant PRIOR FUNCTIONAL LEVEL Unable to Report Patient poor historian Per clinical judgement patient was independent with functional mobility and ADLS as she lives alone. Patient reports she still drives. Brother assists PRN however unknown level/frequency of assist. SUBJECTIVE Patient agreeable and cleared by RN. THERAPY DIAGNOSIS Reduced mobility-other, Difficulty walking-musculoskeleta l TREATMENT INTERVENTIONS Therapeutic Activity (20447), Gait Training (32527) Timed Code Treatment (minutes): 15 Skilled Treatment Time (minutes): 15 Therapeutic Activity (75719) Treatment Minutes: 5 $ Therapeutic Activity (56041) Billed Units: 0 units Gait Training (95082) Treatment Minutes: 10 $ Gait Training (76951) Billed Units: 1 unit TRAINING AND EDUCATION PROVIDED Anatomy and Impact on Deficits, Assistive Device Use, Bed Mobility, Benefits of In-Hospital Mobility, Discharge Planning, Equipment, Expected Functional Level, Falls Prevention, Positioning, Precautions/Restrictio ns, Role of Physical Therapy, Sitting Balance, Standing Balance, Transfers, Edema Management, Energy Conservation, Modalities, Pre-gait Activities, Gait Pattern, Reduction of Deviations THERAPEUTIC SKILLS USED Activity Dosing, Assessment of Tolerance Including Vitals Response to Activity, Cues for Sequencing/Proper Technique for Activity, Muscle Activation Facilitation, Physical Assist, Task Analysis Learning, Teach-Back for Education, Cuing Tactile, Movement Facilitation, Cuing Verbal, Facilitation of Joint Range of Motion, Management of Critical Lines, Tubes and/or Drains FUNCTIONAL STATUS Bed Mobility Supine To Sit: Maximal Assistance, Additional Information HOB elevated, use of hand rails. max assist with trunk to sit up, cues for LLE sequencing. Sit to Supine: Moderate Assistance, Additional Information assist with BLE back into bed. Assistan (more content not included)... [facility] THERAPY NT HNO ID: [id number] Author: SAAD MCCONNELL, OTR/L Service: Occupational Therapy Author Type: Occupational Therapist Type: Therapy (PT/OT/Speech/Resp) Filed: 04/23/2024 10:52 Note Text: Occupational Therapy Treatment Summary SERVICE DATE: 04/23/2024 SERVICE TIME: 1015 to 1038 ROOM: [place] [address] OT 6 Clicks Score: 12 DISCHARGE RECOMMENDATIONS Subacute/SNF Recommended Discharge Disposition Due to: Functional deficits requiring ongoing therapy service prior to discharge home., ADL impairment, Anticipated community discharge, Cognitive deficits new/worsened, Functional status decline, Requires multiple therapy disciplines Anticipated Discharge Needs: Physical Assist at Home, Supervision at Home Physical Assist at Home for: Transfers, Finances, Ambulation, Cleaning, Laundry, Meals, Medication Management, Stairs, Safety, Self Care, Shopping, Transportation Supervision at Home due to: Decreased safety awareness, Impaired cognition ASSESSMENT Response to Therapy Interventions: Cognitive Deficits, Needs Frequent Redirection or Reinstruction, Good Participation in Activities Pt O x 4, pleasantly confused, requires mod A for transfers with cues for proper body mechanics with RW to prevent fall. Pt able to recall WB restrictions, however requires signficant assist to maintain. Reviewed use of call button based on confusion, pt able to repeat correct use. 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 R COTY 2022 HOME LIVING Patient Lives With: Self/Alone Assistance Available: PRN, Other: See Comment Comments: Brother 5 miles away on same property Entry To Home: Stairs, Ramp Number Of Stairs Into Home: 3 Number Of Stairs To Bed/Bath: 0 - ranch home Tub/Shower Type: combo; + shower bench. Laundry: basement, brother can complete Equipment Owned: Cane, Walker- Standard, Lift Chair, Elevated Toilet Seat, Grab Bars- Toilet, Hand Held Shower, Histology Assistant PRIOR FUNCTIONAL LEVEL Unable to Report Patient poor historian Per clinical judgement patient was independent with functional mobility and ADLS as she lives alone. Patient reports she still drives. Brother assists PRN however unknown level/frequency of assist. SUBJECTIVE Pt needs to use toilet, O X 4 but pleasantly confused COGNITION Orientation Deficits: Confused, Not oriented to Time, Not oriented to Situation Responsiveness: Awake Follows Commands: 2-step Commands, Cueing Needed Cueing to Follow Commands: Moderate Attention Deficits: Distractible Executive Function Deficits: Sequencing, Judgement, Insight to Deficits, Problem Solving, Safety Awareness THERAPY DIAGNOSIS Reduced mobility-other, Decreased activities of daily living (ADL), Muscle Weakness (generalized), Unsteadiness on feet, General symptoms and signs-other TREATMENT INTERVENTIONS Therapeutic Activity (10372), Self Halfway Management (88370) Timed Code Treatment (minutes): 23 Skilled Treatment Time (minutes): 23 TRAINING AND EDUCATION PROVIDED Bed Mobility, Benefits of In-Hospital Mobility, Cognitive Skills, Command Following, Discharge Planning, Disease Specific Education, Functional Mobility Involving ADLs, Precautions/Restrictio ns, Role of Occupational Therapy, Safety/Judgment, Assistive Device Use, Grooming Tasks, Positioning, Sitting Balance to Improve [place] with ADLs/Self-Care, Standing Balance to Improve [place] with ADLs/Self-Care, Transfer - Sit to Stand, Transfer - Toilet/Commode, Treatment Protocol THERAPEUTIC SKILLS USED Activity Dosing, Cues for Sequencing/Proper Technique for Activity, Cuing Tactile, Cuing Verbal, Physical Assist, Therapeutic Use of Self, Task Analysis Learning, Teach-Back for Education FUNCTIONAL STATUS Activities of Daily Living Assist Level Additional Information Feeding Set Up Grooming Minimal Assistance, Additional Information Bathing Upper Body Moderate Assistance, Additional Information Bathing Lower Body Maximal Assistance, Additional Information Dressing Upper Body Maximal Assistance, Additional Information Dressing Lower Body Total Assistance, Additional Information Toileting Moderate Assistance, Additional Information for standing balance while completing carol care Mobility Assist Level Additional Information Bed Mobility Rolling: Maximal Assistance, Additional Information Sit To Supine: Maximal Assistance, Additional Information difficulty folowing cues to assist Sit to Stand Moderate Assistance Stand to Sit Moderate Assistance, Additional Information for controlled descent Bed to C (more content not included)... [facility] THERAPY NT HNO ID: [id number] Author: SHAYLA WHITEHEAD, PT, DPT Service: Physical Therapy Author Type: Physical Therapist Type: Therapy (PT/OT/Speech/Resp) Filed: 04/23/2024 10:17 Note Text: Summary: PT tx Physical Therapy Treatment Summary SERVICE DATE: 04/23/2024 SERVICE TIME: 0858 to 0948 ROOM: [place] [address] PT 6 Clicks Score: 14 Total Joint Replacement Discharge Readiness: Not Applicable DISCHARGE RECOMMENDATIONS Subacute/SNF Recommended Discharge Disposition Comments: continue to recommend SNF at d/c for safety, decreased ability to follow commands, assistance for mobility, and would not be appropriate to return home alone at this time, decreased mobility than previous functioning level Recommended Discharge Disposition Due to: Functional deficits requiring ongoing therapy service prior to discharge home., Patient requires active, intensive rehabilitation by multiple therapy disciplines. Anticipate the patient will tolerate 3 hours of therapy per day., Balance deficits, Functional status decline, Motor planning deficits, Requires multiple therapy disciplines, Anticipated community discharge Recommended Discharge Equipment: No equipment needs anticipated ASSESSMENT Response to Therapy Interventions: Pain, Requires Additional Time to Complete Activities, Requires Encouragement to Complete Activities, Slow Progression with Functional Activities/Skills, Cognitive Deficits, Needs Frequent Redirection or Reinstruction, Improved Tolerance for Activity Pt improved her tolerance for actiity today than yesterday, still is confused throughout conversation and needs increased time to perform taksk and max verbal cues throughout session. Vitals remained stable. Needed max assist for bed mobility (normally sleeps on couch) and min to CGA for all OOB mobility. Therapist is unsure about her maintining 50 % WB, however did well with ambulation today with CGA. Goals were updated. 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 R COTY 2022 HOME LIVING Patient Lives With: Self/Alone Assistance Available: PRN, Other: See Comment Comments: Brother 5 miles away on same property Entry To Home: Stairs, Ramp Number Of Stairs Into Home: 3 Number Of Stairs To Bed/Bath: 0 - ranch home Tub/Shower Type: combo; + shower bench. Laundry: basement, brother can complete Equipment Owned: Cane, Walker- Standard, Lift Chair, Elevated Toilet Seat, Grab Bars- Toilet, Hand Held Shower, Histology Assistant PRIOR FUNCTIONAL LEVEL Unable to Report Patient poor historian Per clinical judgement patient was independent with functional mobility and ADLS as she lives alone. Patient reports she still drives. Brother assists PRN however unknown level/frequency of assist. SUBJECTIVE Patient agreeable and cleared by RN. Pt is confused throughout conversation, but from RN is better than yesterday. THERAPY DIAGNOSIS Reduced mobility-other, Decreased activities of daily living (ADL), Difficulty walking-musculoskeleta l TREATMENT INTERVENTIONS Therapeutic Exercise (32846), Therapeutic Activity (32730), Gait Training (02893) Timed Code Treatment (minutes): 40 Skilled Treatment Time (minutes): 40 Therapeutic Exercise (40766) Treatment Minutes: 10 $ Therapeutic Exercise (47458) Billed Units: 1 unit Therapeutic Activity (43666) Treatment Minutes: 15 $ Therapeutic Activity (21522) Billed Units: 1 unit Gait Training (07031) Treatment Minutes: 15 $ Gait Training (68469) Billed Units: 1 unit TRAINING AND EDUCATION PROVIDED Anatomy and Impact on Deficits, Assistive Device Use, Bed Mobility, Benefits of In-Hospital Mobility, Discharge Planning, Equipment, Expected Functional Level, Falls Prevention, Positioning, Precautions/Restrictio ns, Role of Physical Therapy, Sitting Balance, Standing Balance, Transfers, Edema Management, Energy Conservation, Modalities, Pre-gait Activities, Gait Pattern, Reduction of Deviations THERAPEUTIC SKILLS USED Activity Dosing, Assessment of Tolerance Including Vitals Response to Activity, Cues for Sequencing/Proper Technique for Activity, Muscle Activation Facilitation, Physical Assist, Task Analysis Learning, Teach-Back for Education, Cuing Tactile, Movement Facilitation, Cuing Verbal, Facilitation of Joint Range of Motion, Management of Critical Lines (more content not included)... Normal ARTERIAL BLOOD GASESon 04-22 Base excess Calc (Bld) [Moles/Vol] 0 mmol/L Normal 0-2 Comment on above: Order Comment: Speci men Type: ARTERIAL BLOOD SPECIMENOrdering Facility: [facility] Address: [facility] [place] [id number] Performed By: #### A [facility] ####[facility]PIRATORYCL[facility] [id number] [facility] RESPIRAT[facility] [id number] [address] [address] Carboxyhemoglobin (BldA) [Mass fraction] 1.2 % Normal 0.0-2.0 Comment on above: Order Comment: Speci men Type: ARTERIAL BLOOD SPECIMENOrdering Facility: [facility] Address: [address] [place] [address] Result Comment: Carb oxyhemoglobin Reference Range for Smokers: 2.0-8.0% Performed By: #### A LLBG ####[facility] [id number] [facility]OS[facility] RESPIRATORY [id number] [address] CO2 (Bld) [Partial pressure] 32 mm Hg Low 36-46 Comment on above: Order Comment: Speci men Type: ARTERIAL BLOOD SPECIMENOrdering Facility: [facility] Address: [address] [place] [address] Performed By: #### A LLBG ####[facility] [id number] [facility]OS[facility] RESPIRATORY [id number] [address] [address] CO2 adjusted to patient's actual temperature (Bld) [Partial pressure] Normal Comment on above: Order Comment: Speci men Type: ARTERIAL BLOOD SPECIMENOrdering Facility: [facility] Address: [address] [place] [address] Performed By: #### A LLBG ####[facility] [id number] [facility]OS[facility] RESPIRATORY [id number] [address] HCO3 (Bld) [Moles/Vol] 23 mmol/L Normal 22-26 [facility] Comment on above: Order Comment: Speci men Type: ARTERIAL BLOOD SPECIMENOrdering Facility: [facility] Address: [address] [place] [address] Performed By: #### A LLBG ####[facility] [id number] [facility]OS[facility] RESPIRATORY [id number] [address] Hemoglobin (Bld) [Mass/Vol] 12.2 g/dL Normal 11.5-15.5 Comment on above: Order Comment: Speci men Type: ARTERIAL BLOOD SPECIMENOrdering Facility: [facility] Address: [address] [place] [address] Performed By: #### A LLBG ####[facility] [id number] [facility]OS[facility] RESPIRATORY [id number] [address] [address] Lactate [Moles/Vol] 2.0 mmol/L Normal 0.5-2.2 [facility] Comment on above: Order Comment: Speci men Type: ARTERIAL BLOOD SPECIMENOrdering Facility: [facility] Address: [address] [place] [address] Performed By: #### A LLBG ####[facility] [id number] [facility]OS[facility] RESPIRATORY [id number] [address] [address] Methemoglobin (Bld) [Mass fraction] % Normal 0.0-1.5 Comment on above: Order Comment: Speci men Type: ARTERIAL BLOOD SPECIMENOrdering Facility: [facility] Address: [address] [place] [address] Performed By: #### A LLBG ####[place] [id number] [place] [address] RESPIRATORY [id number] [address] O2 THERAPY RA=Room Air Normal Comment on above: Order Comment: Speci men Type: ARTERIAL BLOOD SPECIMENOrdering Facility: [facility] Address: [address] [place] [address] Performed By: #### A LLBG ####[facility] [id number] [facility]OS[facility] RESPIRATORY [id number] [address] Oxygen (Bld) [Partial pressure] 78 mm Hg Low 85-95 Comment on above: Order Comment: Speci men Type: ARTERIAL BLOOD SPECIMENOrdering Facility: [facility] Address: [address] [place] [address] Performed By: #### A LLBG ####[id number] [place] [address] RESPIRATORY [id number] [address] [address] Oxygen adjusted to patient's actual temperature (Bld) [Partial pressure] Normal Comment on above: Order Comment: Speci men Type: ARTERIAL BLOOD SPECIMENOrdering Facility: [facility] Address: [address] [place] [address] Performed By: #### A LLBG ####[facility] RESPIRATORYIA [id number] [facility]OS[facility] RESPIRATORY [id number] [address] [address] Oxyhemoglobin (BldA) [Mass fraction] 94 % Low 95-98 Comment on above: Order Comment: Valei men Type: ARTERIAL BLOOD SPECIMENOrdering Facility: [facility] Address: [address] [place] [address] Performed By: #### A LLBG ####[id number] [facility]OS[facility] RESPIRATORY [id number] [address] pH (Bld) 7.47 [pH] High 7.35-7.45 Comment on above: Order Comment: Speci men Type: ARTERIAL BLOOD SPECIMENOrdering Facility: [facility] Address: [address] [place] [address] Performed By: #### A LLBG ####[id number] [facility] RESPIRATORY [id number] [address] pH adjusted to patient's actual temperature (Bld) Normal Comment on above: Order Comment: Valei men Type: ARTERIAL BLOOD SPECIMENOrdering Facility: [facility] Address: [address] [place] [address] Performed By: #### A LLBG ####[facility] RESPIRATORYIA [id number] [facility]OS[facility] RESPIRATORY [id number] [address] [address] PO2 / FIO2 RATIO 371 mmHg Normal >300 Comment on above: Order Comment: Valei men Type: ARTERIAL BLOOD SPECIMENOrdering Facility: [facility] Address: [address] [place] [address] Performed By: #### A LLBG ####[facility]PIRATORYIA [id number] [facility]OS[facility] RESPIRATORY [id number] [address] [address] Potassium [Moles/Vol] 3.6 mmol/L Normal 3.5-5.0 [facility] Comment on above: Order Comment: Speci men Type: ARTERIAL BLOOD SPECIMENOrdering Facility: [facility] Address: [address] [place] [address] Performed By: #### A LLBG ####[facility] RESPIRATORYCLIA [id number] [facility]OS[facility] RESPIRATORY [id number] [address] [address] Basic metabolic 2000 panelon 04-22-2024 Anion gap [Moles/Vol] 13 mmol/L Normal 8-15 [facility] Comment on above: Order Comment: Speci men Type: BLOOD SPECIMENOrdering Facility: [facility] Address: [address] [place] [address] Performed By: #### 2 4321-2 ####[facility] LABORATORYCLIA [id number] [place] [address] [place] Calcium [Mass/Vol] 9.0 mg/dL Normal 8.5-10.2 Comment on above: Order Comment: Speci men Type: BLOOD SPECIMENOrdering Facility: [facility] Address: [address] [place] [address] Performed By: #### 2 4321-2 ####[facility] LABORATORYCLIA [id number] [place] [address] [place] Chloride [Moles/Vol] 102 mmol/L Normal 98-107 [facility] Comment on above: Order Comment: Speci men Type: BLOOD SPECIMENOrdering Facility: [facility] Address: [address] [place] [address] Performed By: #### 2 4321-2 ####[facility] LABORATORYCLIA [id number] [place] [address] [place] CO2 [Moles/Vol] 22 mmol/L Normal 22-30 Comment on above: Order Comment: Speci men Type: BLOOD SPECIMENOrdering Facility: [facility] Address: [address] [place] [address] Performed By: #### 2 4321-2 ####[facility] LABORATORYCLIA [id number] [address] STATES OF [facility] Creatinine [Mass/Vol] 0.79 mg/dL Normal 0.58-0.96 [facility] Comment on above: Order Comment: Jeri felix Type: BLOOD SPECIMENOrdering Facility: [facility] Address: [address] [place] [address] Performed By: #### 2 4321-2 ####[facility] LABORATORYCLIA [id number] [address] Creatinine and Glomerular filtration rate.predicted panel (S/P/Bld) 78 mL/min/1.73m??? Normal >=60 Comment on above: Order Comment: Jeri felix Type: BLOOD SPECIMENOrdering Facility: [facility] Address: [address] [place] [address] Result Comment: Ashley mated Glomerular Filtration Rate (eGFR) is calculated using the 2020 CKD-EPI creatinine equation. This equation utilizes serum creatinine, sex, and age as parameters. The creatinine assay has traceable calibration to isotope dilution-mass spectrometry. Refer to KDIGO guidelines for clinical interpretation. In patients with unstable renal function, e.g. those with acute kidney injury, the eGFR may not accurately reflect actual GFR. Performed By: #### 2 4321-2 ####[facility] LABORATORYCLIA [id number] [address] Glucose [Mass/Vol] 125 mg/dL High 74-99 Comment on above: Order Comment: Jeri felix Type: BLOOD SPECIMENOrdering Facility: [facility] Address: [address] [place] [address] Result Comment: The [place] [employer] Association (ADA) provides guidance for cutoff values for fasting glucose and random glucose. The ADA defines fasting as no caloric intake for at least 8 hours. Fasting plasma glucose results between 100 to 125 mg/dL indicate increased risk for diabetes (prediabetes). Fasting plasma glucose results greater than or equal to 126 mg/dL meet the criteria for diagnosis of diabetes. In the absence of unequivocal hyperglycemia, results should be confirmed by repeat testing. In a patient with classic symptoms of hyperglycemia or hyperglycemic crisis, random plasma glucose results greater than or equal to 200 mg/dL meet the criteria for diagnosis of diabetes. Reference: Standards of Medical Care in Diabetes 2016, [place] [employer] Association. Diabetes Care. 2016.39(Suppl 1). Performed By: #### 2 4321-2 ####[facility] LABORATORYCLIA [id number] [address] Potassium [Moles/Vol] 3.7 mmol/L Normal 3.7-5.1 [facility] Comment on above: Order Comment: Speci men Type: BLOOD SPECIMENOrdering Facility: [facility] Address: [address] [place] [address] Performed By: #### 2 4321-2 ####[facility] LABORATORYCLIA [id number] [address] Sodium [Moles/Vol] 137 mmol/L Normal 136-144 Comment on above: Order Comment: Jeri felix Type: BLOOD SPECIMENOrdering Facility: [facility] Address: [address] [place] [address] Performed By: #### 2 4321-2 ####[facility] LABORATORYCLIA [id number] [address] Urea nitrogen [Mass/Vol] 13 mg/dL Normal 7-21 Comment on above: Order Comment: Jeri felix Type: BLOOD SPECIMENOrdering Facility: [facility] Address: [address] [place] [address] Performed By: #### 2 4321-2 ####[facility] LABORATORYCLIA [id number] [address] CBC panel Auto (Bld)on 04-22 Erythrocyte distribution width (RBC) [Ratio] 12.0 % Normal 11.5-15.0 Comment on above: Order Comment: Jeri felix Type: BLOOD SPECIMENOrdering Facility: [facility] Address: [address] [place] [address] Performed By: #### 5 8410-2 ####[facility] LABORATORYCLIA [id number] [address] Hematocrit (Bld) [Volume fraction] 34.7 % Low 36.0-46.0 Comment on above: Order Comment: Speci men Type: BLOOD SPECIMENOrdering Facility: [facility] Address: [address] [place] [address] Performed By: #### 5 8410-2 ####[facility] LABORATORYCLIA [id number] [address] Hemoglobin (Bld) [Mass/Vol] 11.8 g/dL Normal 11.5-15.5 Comment on above: Order Comment: Speci men Type: BLOOD SPECIMENOrdering Facility: [facility] Address: [address] [place] [address] Performed By: #### 5 8410-2 ####[facility] LABORATORYCLIA [id number] [address] MCH (RBC) [Entitic mass] 29.7 pg Normal 26.0-34.0 Comment on above: Order Comment: Speci men Type: BLOOD SPECIMENOrdering Facility: [facility] Address: [address] [place] [address] Performed By: #### 5 8410-2 ####[facility] LABORATORYCLIA [id number] [address] MCHC (RBC) [Mass/Vol] 34.0 g/dL Normal 30.5-36.0 [facility] Comment on above: Order Comment: Speci men Type: BLOOD SPECIMENOrdering Facility: [facility] Address: [address] [place] [address] Performed By: #### 5 8410-2 ####[facility] LABORATORYCLIA [id number] [address] MCV (RBC) [Entitic vol] 87.4 fL Normal 80.0-100.0 [facility] Comment on above: Order Comment: Speci men Type: BLOOD SPECIMENOrdering Facility: [facility] Address: [address] [place] [address] Performed By: #### 5 8410-2 ####[facility] LABORATORYCLIA [id number] [place] [address] [place] [place] Nucleated RBC (Bld) [#/Vol] 10*3/uL Normal <0.01 Comment on above: Order Comment: Speci men Type: BLOOD SPECIMENOrdering Facility: [facility] Address: [address] [place] [address] Performed By: #### 5 8410-2 ####MALAVE LABORATORYCLIA [id number] [place] [address] [place] Platelet mean volume (Bld) [Entitic vol] 9.5 fL Normal 9.0-12.7 Comment on above: Order Comment: Speci men Type: BLOOD SPECIMENOrdering Facility: [facility] Address: [address] [place] [address] Performed By: #### 5 8410-2 ####MALAVE LABORATORYCLIA [id number] [place] [address] [place] Platelets (Bld) [#/Vol] 212 10*3/uL Normal 150-400 Comment on above: Order Comment: Speci men Type: BLOOD SPECIMENOrdering Facility: [facility] Address: [address] [place] [address] Performed By: #### 5 8410-2 ####MALAVE LABORATORYCLIA [id number] [place] [address] [place] RBC (Bld) [#/Vol] 3.97 10*6/uL Normal 3.90-5.20 [facility] Comment on above: Order Comment: Speci men Type: BLOOD SPECIMENOrdering Facility: [facility] Address: [address] [place] [address] Performed By: #### 5 8410-2 ####MALAVE LABORATORYCLIA [id number] [place] [id number] [place] WBC (Bld) [#/Vol] 10.85 10*3/uL Normal 3.70-11.00 [facility] Comment on above: Order Comment: Speci men Type: BLOOD SPECIMENOrdering Facility: [facility] Address: [address] [place] [address] Performed By: #### 5 8410-2 ####MALAVE LABORATORYCLIA [id number] [place] [address] [facility] THERAPY NTon 04-22-2024 THERAPY NT HNO ID: [id number] Author: VIRGINIA PLASCENCIA PT Service: Physical Therapy Author Type: Physical Therapist Type: Therapy (PT/OT/Speech/Resp) Filed: 04/22/2024 17:37 Note Text: Summary: PT missed visit PHYSICAL THERAPY MISSED VISIT SERVICE DATE: 04/22/2024 SERVICE TIME: 1730 ROOM: [place] [address] Patient not seen due to Clinical Appropriateness. Poor cognition and not appropriate for functional mobility due to poor safety. Unable to follow commands. SIGNATURE: Virginia Plascencia PT PATIENT NAME: Mónica Decker DATE: April 22, 2024 TIME: 5:37 PM [facility] THERAPY NT HNO ID: [id number] Author: CARLOS BERGER OTR/Dale Service: Occupational Therapy Author Type: Occupational Therapist Type: Therapy (PT/OT/Speech/Resp) Filed: 04/22/2024 11:28 Note Text: Summary: OT eval Occupational Therapy Evaluation Summary SERVICE DATE: 04/22/2024 SERVICE TIME: 1045 to 1108 ROOM: [id number] OT 6 Clicks Score: 11 DISCHARGE RECOMMENDATIONS Subacute/SNF Recommended Discharge Disposition Due to: Functional deficits requiring ongoing therapy service prior to discharge home., ADL impairment, Anticipated community discharge, Cognitive deficits new/worsened, Functional status decline, Requires multiple therapy disciplines Anticipated Discharge Needs: Physical Assist at Home, Supervision at Home Physical Assist at Home for: Transfers, Finances, Ambulation, Cleaning, Laundry, Meals, Medication Management, Stairs, Safety, Self Care, Shopping, Transportation Supervision at Home due to: Decreased safety awareness, Impaired cognition ASSESSMENT Response to Therapy Interventions: Cognitive Deficits, Needs Frequent Redirection or Reinstruction PRECAUTIONS Bed/Chair Alarm, Fall Risk, Hip Precautions - Posterior Dislocation, Lines/Tubes/Drains, Posterior Hip Precautions, Weight Bearing Restrictions, Impulsive with Activity Left Lower Extremity Weight Bearing Status: 50% PWB CURRENT HOSPITAL COURSE s/p COTY L 04/21/24 Relevant Past Medical History: HTN, HLD, white coat syndrome, anxiety, obesity, fractures elbow with decreased ROM, 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 R COTY 2022 HOME LIVING Patient Lives With: Self/Alone Assistance Available: PRN, Other: See Comment Comments: Brother 5 miles away on same property Entry To Home: Stairs, Ramp Number Of Stairs Into Home: 3 Number Of Stairs To Bed/Bath: 0 - ranch home Tub/Shower Type: combo; + shower bench. Laundry: basement, brother can complete Equipment Owned: Cane, Walker- Standard, Lift Chair, Elevated Toilet Seat, Grab Bars- Toilet, Hand Held Shower, Histology Assistant PRIOR FUNCTIONAL LEVEL Unable to Report Patient poor historian Per clinical judgement patient was independent with functional mobility and ADLS as she lives alone. Patient reports she still drives. Brother assists PRN however unknown level/frequency of assist. SUBJECTIVE Patient cleared by nursing supine in bed with confusion noted agreeable to OT COGNITION Orientation Deficits: Confused, Not oriented to Time, Not oriented to Situation Responsiveness: Alert, Awake Follows Commands: Cueing Needed Cueing to Follow Commands: Maximum Attention Deficits: Distractible Executive Function Deficits: Sequencing, Judgement, Insight to Deficits, Problem Solving, Safety Awareness THERAPY DIAGNOSIS Reduced mobility-other, Decreased activities of daily living (ADL), General symptoms and signs-other, Signs and Symptoms Involving Cognitive Functions and Awareness TREATMENT INTERVENTIONS Evaluation, Self Halfway Management (47885) Timed Code Treatment (minutes): 8 Skilled Treatment Time (minutes): 23 TRAINING AND EDUCATION PROVIDED Bed Mobility, Benefits of In-Hospital Mobility, Cognitive Stimulation Activities, Cognitive Skills, Command Following, Discharge Planning, Disease Specific Education, Functional Mobility Involving ADLs, Grooming Tasks, Lower Extremity Dressing, Precautions/Restrictio ns, Role of Occupational Therapy, Safety/Judgment THERAPEUTIC SKILLS USED Activity Dosing, Cues for Sequencing/Proper Technique for Activity, Cuing Tactile, Cuing Verbal, Physical Assist, Therapeutic Use of Self FUNCTIONAL STATUS Activities of Daily Living Assist Level Additional Information Feeding Set Up Grooming Minimal Assistance, Additional Information Patient washed hands and face supine in bed. When given hair brush reached under covers with brush to utuilize on stomach with cues for proper use of brush with patient brushing hair with verbal and tactile cues but then proceded to brush neck and chest Bathing Upper Body Moderate Assistance, Additional Information per clinical judgement due to current cognition Bathing Lower Body Maximal Assistance, Additional Information per clinical judgement due to current cognition and hip precautions Dressing Upper Body Maximal Assistance, Additional Information managing hosptial gown Dressing Lower Body Total Assistance, Additional Information per clinical judgement due to current cognition and hip precautions Toileting Total Assistance, Additional Information per clinical judgement Mobility Assist Level Additional Information Bed Mobility Rolling: Maximal Assistance, Additional Information towards both sides Sit to Stand Stand to Sit Bed to Chair Toilet/Commode Shower Functional Mobility Due to confusion did n (more content not included)... Normal THERAPY NT HNO ID: [id number] Author: VIRGINIA PLASCENCIA, PT Service: Physical Therapy Author Type: Physical Therapist Type: Therapy (PT/OT/Speech/Resp) Filed: 04/22/2024 10:13 Note Text: Summary: PT evaluation Physical Therapy Evaluation Summary SERVICE DATE: 04/22/2024 SERVICE TIME: 09 to 09 ROOM: [id number] PT 6 Clicks Score: 9 Total Joint Replacement Discharge Readiness: Pending Physical Therapy Clearance DISCHARGE RECOMMENDATIONS Subacute/SNF Recommended Discharge Disposition Comments: Home PT for safety assessment and to increase strength and progress safe functional mobility in the home. Recommended Discharge Disposition Due to: Functional deficits requiring ongoing therapy service prior to discharge home., Patient requires active, intensive rehabilitation by multiple therapy disciplines. Anticipate the patient will tolerate 3 hours of therapy per day., Balance deficits, Functional status decline, Motor planning deficits, Requires multiple therapy disciplines Recommended Discharge Equipment: No equipment needs anticipated ASSESSMENT Response to Therapy Interventions: Pain, Requires Additional Time to Complete Activities, Requires Encouragement to Complete Activities, Slow Progression with Functional Activities/Skills, Cognitive Deficits, Low Activity Tolerance, Needs Frequent Redirection or Reinstruction Patient presents s/p COTY with pain operative leg, decreased ROM/strength and impaired functional mobility. Patient oriented to self only and is impulsive and distractible with divided attention throughout. patient has poor follow through with cues/commands and unable to monitor tolerance due to cognition and unable to safely progress from EOB. heavy assist with bed mobility and transfers. will benefit from acute skilled PT to increase strength and progress safe functional mobiltiy as able/safe. question ability to maintain WB restriction for progression safely. 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 R COTY 2022 HOME LIVING Patient Lives With: Self/Alone Assistance Available: PRN, Other: See Comment Comments: 5 miles away on same property Entry To Home: Stairs Number Of Stairs Into Home: 3 (2 inch steps) Number Of Stairs To Bed/Bath: 0 - ranch home Equipment Owned: Cane, Walker- Standard, Lift Chair, Elevated Toilet Seat, Grab Bars- Toilet, Hand Held Shower, Histology Assistant PRIOR FUNCTIONAL LEVEL Poor Historian per clinical judgement, ind with functional mobility as she lives alone. Brother assists PRN however unknown level/frequency of assist. SUBJECTIVE Patient agreeable and cleared by RN. THERAPY DIAGNOSIS Difficulty walking-musculoskeleta l TREATMENT INTERVENTIONS Evaluation, Therapeutic Activity (91407) Timed Code Treatment (minutes): 23 Skilled Treatment Time (minutes): 38 $ Evaluation-Low (36803) Billed Units: 1 unit Therapeutic Activity (97448) Treatment Minutes: 23 $ Therapeutic Activity (71897) Billed Units: 2 units TRAINING AND EDUCATION PROVIDED Anatomy and Impact on Deficits, Assistive Device Use, Bed Mobility, Benefits of In-Hospital Mobility, Discharge Planning, Equipment, Expected Functional Level, Falls Prevention, Handout Issued, Home Set-up/Modifications, Positioning, Precautions/Restrictio ns, Role of Physical Therapy, Sitting Balance, Standing Balance, Transfers, Treatment Protocol, Edema Management, Energy Conservation, Home Safety, Modalities, Pain Neuroscience, Pre-gait Activities THERAPEUTIC SKILLS USED Activity Dosing, Assessment of Tolerance Including Vitals Response to Activity, Cues for Sequencing/Proper Technique for Activity, Cuing Verbal, Muscle Activation Facilitation, Physical Assist, Postural Alignment Correction, Task Analysis Learning, Teach-Back for Education, Cuing Tactile, Cuing Visual, Movement Facilitation FUNCTIONAL STATUS Bed Mobility Supine To Sit: Moderate Assistance, Additional Information education for hip precautions with functional progression.. HOB 45 deg, step by step cues. A for B LE mgmt and trunk mgmt Sit to Supine: Maximal Assistance, Additional Information for B LE and trunk mgmt Scooting: Maximal Assistance, Additional Information in sitting fwd/retro at EOB and in supine up in bed with max A x 2 Transfers Sit To Stand: Moderate Assistance, Additional Informatio (more content not included)... Normal URINALYSIS, REFLEX MICROSCOP ICon 04-22-2024 Bilirubin Ql (U) Negative Normal Negative Comment on above: Order Comment: Speci men Type: URINE SPECIMENOrdering Facility: [facility] Address: [address] [place] [address] Performed By: #### L [id number] ####MALAVE LABORATORYCLIA [id number] [address] [place] Clarity (Unsp spec) Clear Normal Clear [facility] Comment on above: Order Comment: Speci men Type: URINE SPECIMENOrdering Facility: [facility] Address: [address] [place] [address] Performed By: #### L [id number] ####MALAVE LABORATORYCLIA [id number] [address] OF [facility] Color (U) Yellow Normal Yellow Comment on above: Order Comment: Speci men Type: URINE SPECIMENOrdering Facility: [facility] Address: [address] [place] [address] Performed By: #### L [id number] ####MALAVE LABORATORYCLIA [id number] [address] [place] Epithelial cells LM.HPF (Urine sed) [#/Area] Few Normal Comment on above: Order Comment: Speci men Type: URINE SPECIMENOrdering Facility: [facility] Address: [address] [place] [address] Performed By: #### L [id number] ####MALAVE LABORATORYCLIA [id number] [address] [place] Glucose Test strip (U) [Mass/Vol] Negative Normal Negative Comment on above: Order Comment: Speci men Type: URINE SPECIMENOrdering Facility: [facility] Address: [address] [place] [address] Performed By: #### L [id number] ####MALAVE LABORATORYCLIA [id number] [place] [address] [place] Hemoglobin Ql (U) Trace Abnormal Negative Comment on above: Order Comment: Speci men Type: URINE SPECIMENOrdering Facility: [facility] Address: [address] [place] [address] Performed By: #### L [id number] ####MALAVE LABORATORYCLIA [id number] [place] [address] [place] Ketones Ql (U) Negative Normal Negative Comment on above: Order Comment: Speci men Type: URINE SPECIMENOrdering Facility: [facility] Address: [address] [place] [address] Performed By: #### L [id number] ####MALAVE LABORATORYCLIA [id number] [address] [place] Leukocyte esterase Test strip Ql (U) 1+ Abnormal Negative Comment on above: Order Comment: Speci men Type: URINE SPECIMENOrdering Facility: [facility] Address: [address] [place] [address] Performed By: #### L [id number] ####MALAVE LABORATORYCLIA [id number] [place] [address] [place] Nitrite Ql (U) Negative Normal Negative Comment on above: Order Comment: Speci men Type: URINE SPECIMENOrdering Facility: [facility] Address: [address] [place] [address] Performed By: #### L [id number] ####MALAVE LABORATORYCLIA [id number] [place] [address] [place] pH (U) 6.5 [pH] Normal 5.0-8.0 Comment on above: Order Comment: Speci men Type: URINE SPECIMENOrdering Facility: [facility] Address: [address] [place] [address] Performed By: #### L [id number] ####MALAVE LABORATORYCLIA [id number] [place] [address] [place] Protein (U) [Mass/Vol] Negative Normal Negative [facility] Comment on above: Order Comment: Speci men Type: URINE SPECIMENOrdering Facility: [facility] Address: [address] [place] [address] Performed By: #### L [id number] ####MALAVE LABORATORYCLIA [id number] [address] [place] RBC LM.HPF (Urine sed) [#/Area] 0-3 /HPF Normal 0-3 /HPF Comment on above: Order Comment: Speci men Type: URINE SPECIMENOrdering Facility: [facility] Address: [address] [place] [address] Performed By: #### L [id number] ####[facility] LABORATORYCLIA [id number] [address] [place] Specific gravity (U) [Rel density] 1.010 Normal 1.005-1.030 Comment on above: Order Comment: Speci men Type: URINE SPECIMENOrdering Facility: [facility] Address: [address] [place] [address] Performed By: #### L [id number] ####[facility] LABORATORYCLIA [id number] [address] Urobilinogen Ql (U) 0.2 EU/dL Normal 0.2-1.0 EU/dL Comment on above: Order Comment: Speci men Type: URINE SPECIMENOrdering Facility: [facility] Address: [address] [place] [address] Performed By: #### L [id number] ####[facility] LABORATORYCLIA [id number] [address] WBC LM.HPF (Urine sed) [#/Area] 0-5 /HPF Normal 0-5 /HPF Comment on above: Order Comment: Speci men Type: URINE SPECIMENOrdering Facility: [facility] Address: [address] [place] [address] Performed By: #### L [id number] ####MALAVE LABORATORYCLIA [id number] [address] [place] ALLIED HEALTHon 04-21-2024 ALLIED HEALTH HNO ID: [id number] Author: ALAYNA FELIPE RT(R) Service: Radiology Author Type: Technologist Type: Allied Health Filed: 04/21/2024 10:29 Note Text: Radiology Service Progress Note PATIENT NAME: Mónica Decker DATE OF SERVICE: April 21, 2024 TIME: 10:28 AM PATIENT IDENTITY VERIFICATION COMPLETED USING TWO (2) IDENTIFIERS: Name and Date of confirmed by patient verbally. FALL SCREENING: Has the patient had 2 falls in the last year or 1 fall with injury or currently using an Ambulatory Assistive Device (Walker, Cane, Wheelchair, Crutches, etc.)? Inpatient: Screened on floor PATIENT GENDER DATA: Female. status: : No status: N/A PATIENT RELEVANT IMPLANT DATA REVIEWED: Not Applicable PATIENT PRESENTS WITH AN IMPLANTABLE OR ATTACHED CELL TOWER CLIMBER: No RADIOLOGY DEPARTMENT: General X-ray: Exam(s) Completed: Pelvis X-Ray: Pelvis General AP PERIPHERAL IV DATA: Not applicable SIGNED BY: RT Teressa(R) April 21, 2024 10:28 AM [facility] POSTPROC EVALon 024 [facility] POSTPROC EVAL HNO ID: [id number] Author: SHAYLA YOUNG MD Service: Anesthesiology Author Type: Anesthesiologist Type: Anesthesia Postprocedure Evaluation Filed: 04/21/2024 10:12 Note Text: POST ANESTHESIA EVALUATION NOTE : 1950 Procedure Summary Date: 04/21/24 Room / Location: [place] OR / [place] OR Anesthesia Start: 727 Anesthesia Stop: 1002 Procedure: ROBOTIC ASSISTED TOTAL HIP ARTHROPLASTY (Left: Hip) Diagnosis: Primary osteoarthritis of left hip (Primary osteoarthritis of left hip [M16.12]) Surgeons: Julio Cesar Deluna MD Responsible Provider: Shayla Young MD Anesthesia Type: general ASA Status: 3 Anesthesia Type: general Airway Type: ETT Last Vitals Vitals Value Taken Time BP 158/70 04/21/24 1005 Temp 36.2 ?C (97.2 ?F) 04/21/24 1000 Pulse 79 04/21/24 1009 Resp 19 04/21/24 1009 SpO2 99 % 04/21/24 1009 Vitals shown include unfiled device data. Post Anesthesia Patient Status Patient Evaluation: PACU. PACU/ICU Patient Condition: stable. Anticipated Disposition: phase 2 then home. Neurological Status: lethargic. lethargic status: responds to tactile stimuli. Pulmonary Status: breathing comfortably on supplemental oxygen Airway Control: returned to baseline unsupported. Cardiovascular Status: stable. Pain Management: clinically adequate - multimodal analgesia pain management approach Postoperative Hydration: acceptable. Intraoperative Events: no significant anesthesia events Post Operative Nausea/Vomiting Status: no significant post operative nausea or vomiting Recommendation: continue current plan of care. Anesthesia Observations No Documentation SIGNATURE: Shayla Young MD PATIENT NAME: Mónica Decker DATE: April 21, 2024 TIME: 10:11 AM CSN: [id number] [facility] ANES PRE-OPon 04-21-2024 ANES PRE-OP HNO ID: [id number] Author: SHAYLA YOUNG MD Service: Anesthesiology Author Type: Anesthesiologist Type: Anesthesia Preprocedure Evaluation Filed: 04/21/2024 07:01 Note Text: ANESTHESIOLOGY DAY OF SURGERY NOTE : 1950 Procedure Information Date/Time: 04/21/24729 Procedure: ROBOTIC ASSISTED TOTAL HIP ARTHROPLASTY (Left: Hip) Location: [place] [address] / [place] Surgeons: Julio Cesar Deluna MD Estimated body mass index is 39.61 kg/m? as calculated from the following: Height as of 04/05/24: 152.4 cm (5'). Weight as of 04/05/24: 92 kg (202 lb 12.8 oz). Most recent hematocrit and potassium results: Hematocrit 38.9 04/05/2024 Potassium 4.4 04/05/2024 Relevant Problems ANESTHESIA (+) SANDRA (obstructive sleep apnea) CARDIO (+) TARANGO (dyspnea on exertion) (+) Essential hypertension, benign ENDO (+) Postsurgical hypothyroidism NEURO-PSYCH (+) Personal history of colonic polyps PULMONARY (+) TARANGO (dyspnea on exertion) (+) SANDRA (obstructive sleep apnea) I - PHYSICAL EVALUATION AIRWAY Patient intubated: No. Tracheostomy tube not present Mallampati: II. TM distance: >3 FB. Neck ROM: full ROM without neurological symptoms. Mouth opening: adequate. Short neck: no. Thick neck: no DENTAL Dental findings: teeth intact. Additional exam findings: yes. CARDIOVASCULAR Rhythm: regular Rate: normal PULMONARY Breath sounds clear to auscultation. ABDOMINAL Obese: obesity present. Other findings: rash. II - ANESTHESIA PLAN ASA Score: 3 Anesthetic Plan: general Airway type: ETT The patient is not a current smoker. NPO Status: adequate Beta Sully Monitoring Plan Monitoring plan: Standard ASA. Post Procedure Analgesic Plan Postoperative analgesic plan: parenteral or oral opioids and multimodal analgesia. Informed Consent Anesthetic risks, benefits, alternatives, personnel and consent discussed: yes. Patient / Responsible Democrat agrees to proceed: yes Patient / Surrogate agrees to blood products: yes DNR status not reviewed with patient and/or family prior to surgery. Significant changes in the patient condition since the History and Physical, not otherwise documented in primary service progress note: no. Potential Anesthesia issues that may suggest increased risk of complications or contraindication to planned procedure: none. Vitals Value Taken Time BP 149/73 04/21/2449 Pulse 75 04/21/2449 Resp 16 04/21/24648 Temp 36.4 ?C (97.5 ?F) 04/21/24648 SpO2 96 % 04/21/24648 Facility-Administered Medications as of 04/21/2024 Medication Dose Route Frequency - lidocaine (PF) 10 mg/mL (1 %) 1-2 mg injection (XYLOCAINE) 0.1-0.2 mL INTRADERMAL PRN - lactated ringers iv infusion 5-30 mL/hr INTRAVENOUS CONTINUOUS - NaCl 0.9% iv flush bag 20 mL INTRAVENOUS PRN - ceFAZolin iv piggyback 2 g in D5W (iso-osmotic) 100 mL (ANCEF) 2 g INTRAVENOUS Pre-Op Once - tranexamic acid 1,000 mg in NaCl 0.9% 100 mL (CYKLOKAPRON) 1,000 mg INTRAVENOUS Pre-Op Once - tranexamic acid 1,000 mg in NaCl 0.9% 100 mL (CYKLOKAPRON) 1,000 mg INTRAVENOUS ONCE - acetaminophen 650 mg tab(s) (TYLENOL) 650 mg ORAL Pre-Op Once - celecoxib 200 mg cap(s) (CeleBREX) 200 mg ORAL Pre-Op Once - oxyCODONE ER 10 mg tab(s) (OxyCONTIN) 10 mg ORAL Pre-Op Once - scopolamine 1 mg over 3 days 1 Patch (TRANSDERM-SCOP) 1 Patch TRANSDERMAL Pre-Op Once Outpatient Medications as of 04/21/2024 Medication Sig - levothyroxine (LEVOXYL) 150 mcg tablet Take 1 tablet by mouth once daily. Fri-Fri and 1/2 a tab on Friday. - lisinopril (ZESTRIL) 40 mg tablet Take 1 tablet by mouth once daily. - amLODIPine (NORVASC) 10 mg tablet Take 1 tablet by mouth once daily. - furosemide (LASIX) 40 mg tablet Take 1 tablet by mouth once daily. - amoxicillin (AMOXIL) 500 mg capsule Please take 4 capsules by mouth 1 (one) hour prior to your dental appointment. - naproxen sodium (ALEVE) 220 mg cap Take by mouth as needed. (Patient not taking: Reported on 04/12/2024) - ascorbic acid, vitamin C, (VITAMIN C) 500 mg tablet Take 1 tablet by mouth twice daily with meals for 28 doses. (Patient not taking: Reported on 04/12/2024) - pravastatin (PRAVACHOL) 10 mg tablet Take 1 tablet by mouth once daily. - Lactobac no.41/Bifidobact no.7 (PROBIOTIC-10 ORAL) Take 1-2 tablets by mouth once daily. (Patient not taking: Reported on 04/12/2024) - OTC PRODUCT Takes beet powder daily (Patient not taking: Reported on 04/12/2024) - cholecalciferol, vitamin D3, (VITAMIN D3 ORAL) Take 1 tablet by mouth once daily. (Patient not taking: Reported on 04/12/2024) - COLLAGEN MISC 1 tablet once daily. Collagen blend + #2 (Patient not taking: Reported on 04/12/2024) - omega-3 fatty acids 1,000 mg cap Take 1 capsule by mouth three times daily. (Patient not taking: Reported on 04/12/2024) - COENZYME Q10 60 MG CAP Take one(1) tablet daily. (Patient not taking: Reported on 04/12/2024) - multivitamins w-minerals(DAILY MULTIVITAMIN-MINE (more content not included)... [facility] 04-21-2024 [facility] HNO ID: [id number] Author: JULIO CESAR DELUNA MD Service: Orthopaedic Surgery Author Type: Physician Miniature Set Builder Type: Discharge Summary Filed: 04/26/2024 11:51 Note Text: Attestation signed by Julio Cesar Deluna MD at 04/26/2024 11:51 AM I agree with the above discharge summary. Reviewed, authenticated, and electronically signed by Julio Cesar Deluna MD DISCHARGE SUMMARY PATIENT NAME: Mónica Decker ADMISSION DATE: 04/21/2024 DISCHARGE DATE: 04/25/2024 PATIENT DISCHARGE SUMMARY C O N F I D E N T I A L I N F O R M A T I O N The following is a brief overview of your hospitalization. Some of the information contained on this summary may be confidential. This information should be kept in your records and should be shared with your regular doctor. These instructions explain what you or your disabilities caregiver need to do to continue your care at home or at another healthcare facility Please go over these instructions with your nurse and disabilities caregiver. If you are not sure about something, please ask. Highest Readmission Risk Score: 10 The 30 day readmissions risk score is derived from an internally validated risk model which evaluates patient level characteristics, utilization history, medication orders and lab results up until the day of discharge. Patients with a score of 40 or above are considered highest risk for readmission. Specific patient level drivers will be listed at the bottom of the summary. The 30 day readmissions risk score is derived from an internally validated risk model which evaluates patient level characteristics, utilization history, medication orders and lab results up until the day of discharge. Patients with a score of 40 or above are considered highest risk for readmission. Where I Will be Going after Discharge[facility] My Condition at Discharge: Stable PRINCIPAL DIAGNOSIS: (Reason after study for this admission): Procedure(s): ROBOTIC ASSISTED TOTAL HIP ARTHROPLASTY OTHER DIAGNOSES: Patient Active Hospital Problem List: No active hospital problems. OPERATIONS PERFORMED: Procedure(s): ROBOTIC ASSISTED TOTAL HIP ARTHROPLASTY My Doctors and Medical Team: My Main Hospital Doctor: Julio Cesar Garza MD PHYSICAL EXAM: See daily progress note Vitals: BP 135/57 Pulse 65 Temp 36.5 ?C (97.7 ?F) (Oral) Resp 16 Ht 152.4 cm (5') Wt 91.2 kg (201 lb 1 oz) SpO2 97% BMI 39.27 kg/m? SUMMARY OF WHAT HAPPENED WHILE PATIENT WAS IN THE HOSPITAL: The patient was followed by Dr. Deluna in clinic for left hip osteoarthritis. It was determined the patient would benefit from left total hip arthroplasty. The procedure, its risks, benefits, and potential complications were discussed in detail prior to surgery. The patient conveyed understanding of all topics and consented to surgery. The patient was admitted to the hospital. Underwent an elective left total hip arthroplasty on 04/21/[address] Deluna. The patient tolerated the procedure well and was returned to the Post Anesthesia Care Unit in stable condition. Vital signs per PACU protocol. VTE risk assessment performed. O2 therapy monitored by Respiratory Therapy to include incentive spirometry, ADL, wound and support per physician order set postop protocol. PT and OT to evaluate and treat. IV antibiotics, antiemetics, aspirin for DVT prophylaxis and pain medication were given. Therapy was limited POD1 due to confusion suspected to be secondary to pain medications oxycodone and dilaudid. These pain medications were discontinued and the patient's confusion improved. The patient progressed with physical therapy. Lab values and vital signs were monitored and remained stable. The incision remained clean, dry and intact. Thigh and calf are not swollen. No signs of DVT or infection. The patient progressed with physical therapy towards goal of safety and independence. Patient was determined safe for discharge to SNF on 04/25/2024. TREATMENT / WOUND CARE: If you have any concerns about your wound, please contact the office. Keep wound and incision area clean and dry. You may remove your dressing on POD #7-10 (7 to 10 days after surgery). If it remains drainage-free, you may leave the dressing off, keeping the wound open to air. If there is any drainage please contact the office You may not submerge the wound under standing water for 6 weeks time after surgery (i.e. no baths, no hot tubs, no swimming pools). Do not rub the wound, but rather pat dry. If you have non-absorbable sutures in place, these will be taken out on your 1st follow-up appointment. Observe the wound for signs of infection, including increased re (more content not included)... Normal CONSULTon 04-21-2024 CONSULT HNO ID: [id number] Author: BYRON KNIGHT MD Service: General Internal Medicine Author Type: Physician Type: Consults Filed: 04/24/2024 13:18 Note Text: [facility]- Consultation MÓNICA DECKER : 1950 AGE: 74 SEX: F ACCTNUM: [id number] [facility]: [facility] LOCATION: [facility] ATTENDING PHYSICIAN: JULIO CESAR DELUNA DATE OF SERVICE: 04/21/2024 TIME OF SERVICE: 04:51 PM REASON FOR CONSULTATION: Postop medical management. HISTORY: This is a 74-year-old female, whose significant medical history includes osteoarthritis, hypertension, hyperlipidemia, mild dyspnea with exertion, overactive bladder, hypothyroidism, and obesity class 2. Patient underwent elective left total hip arthroplasty. Patient had uneventful intraoperative course. Estimated blood loss 250 mL. During initial evaluation, patient was sleepy; however, answering question appropriately. PAST MEDICAL HISTORY: As mentioned above. PAST SURGICAL HISTORY: Includes endoscopy, uvulectomy for obstructive sleep apnea, thyroidectomy, right total hip replacement in 05/2023. FAMILY HISTORY: Positive for glaucoma, hypertension. One brother with CVA. SOCIAL HISTORY: Does not smoke or drink. She quit smoking in 2011. MEDICATIONS: Her current home medication list reviewed. ALLERGIES: She is allergic to latex. REVIEW OF SYSTEMS: HEENT/Neck: Patient denies any history of migraine. No history of TIA or CVA. No history of seizure disorder. History of obstructive sleep apnea, status post uvuloplasty. No history of asthma or COPD. No history of recent pulmonary infection. No history of coronary artery disease, congestive heart failure, or cardiac arrhythmia. History of hypertension and hyperlipidemia. Claims good appetite. Regular bowel movement. No history of bleeding peptic ulcer disease. No melenic stools. History of urinary incontinence/overactiv e bladder. No history of CKD, renal calculi. No history of diabetes. History of hypothyroidism. No history of DVTs, paresthesia of feet, or bleeding diathesis. PHYSICAL EXAM: General: Elderly female. HEENT: Sclerae anicteric. Oral mucosa dry. Neck: No thyromegaly appreciated. No carotid bruit. No lymphadenopathy of the neck. Lungs: Clear to auscultation bilaterally. Cardiovascular: S1, S2. Regular rhythm. No murmur, gallop, or rub present. Abdomen: Soft, nontender, nondistended. Bowel sounds present. No mass felt. Lower Extremities: No ankle edema noted. IMPRESSION: 1. Osteoarthritis, status post left total hip arthroplasty. Deep venous thrombosis prophylaxis with aspirin. 2. Hypertension. Continue amlodipine and she takes Lasix also. 3. Hypothyroidism. Continue levothyroxine. 4. Also continue Zestril for the hypertension. 5. Hyperlipidemia. Continue Pravachol. 6. Hold other medication for now. Thank you very much for kind referral. Continue to follow her while she is in the hospital. Byron Knight M.D. Internal Medicine SHALOM:[id number] /[id number] [facility] OPERATIVE NOon 04-21-2024 OPERATIVE NO HNO ID: [id number] Author: JULIO CESAR DELUNA MD Service: Orthopaedic Surgery Author Type: Physician Type: Operative Report Filed: 04/21/2024 10:04 Note Text: PATIENT NAME: Mónica Decker CSN: [id number] LOG ID: [id number] Surgery Date: 04/21/2024 Surgeon(s) and Miniature Set Builder(s): Herminio Lara NP - Applied Psychology Professor Surgeon(s) and Role: * Julio Cesar Deluna MD - Primary * Wiley Perales MD - Fellow No qualified orthopedic resident was available 22 modifier --CASE COMPLEXTIY: HIGH- a 22 modifier was added to the case to reflect the increased complexity. The surgical procedure was more complex and involved due to the patient?s obesity with BMI greater than 35. Joint exposure was significantly more difficult and involved mobilization of abundant tissue in order to reduce risk of carol-operative complication. Closure was also more complex due to the patient's body habitus and abundant carol-articular adipose. Closure took approximately half an hour or longer than the standard closure. The case took significantly more time and effort than a standard arthroplasty procedure. BMI: Estimated body mass index is 39.61 kg/m? as calculated from the following: Height as of 04/05/24: 152.4 cm (5'). Weight as of 04/05/24: 92 kg (202 lb 12.8 oz). Procedure(s): Procedure(s) (LRB): ROBOTIC ASSISTED TOTAL HIP ARTHROPLASTY (Left) Anesthesia: General Incision Start: 8:04 AM Incision Stop: 9:45 AM Attestation: I was present for and performed all critical portions of the case. assistant women's basketball coach was necessary for safe patient positioning, sterile prepping and draping, assistance, positioning and protection, soft tissue retraction, protection of vital structures and suture management during the case, and superficial wound closure. Also critical for safe transit to the recovery room in stable condition. Preop Diagnosis: Pre-Op Diagnosis Codes: * Primary osteoarthritis of left hip [M16.12] Postop Diagnosis: Same as Pre-Op Diagnosis Codes: * Primary osteoarthritis of left hip [M16.12] Implants: Implant Name Type Inv. Item Serial No. Enrollment Counselor Lot No. LRB No. Used Action PIN STEINMANN 3.2MM STAINLESS STEEL 229MM FIXATION TROCAR POINT 1 END STYLE - [id number] Pin PIN STEINMANN 3.2MM STAINLESS STEEL 229MM FIXATION TROCAR POINT 1 END STYLE 24tidy Left 1 Non-Implant SHELL TRIDENT II 54MM E TRITANIUM ACETABULAR 5 SCREW HOLE CLUSTER STERILE - [id number] Joint SHELL TRIDENT II 54MM E TRITANIUM ACETABULAR 5 SCREW HOLE CLUSTER STERILE [employer] [id number] Left 1 Implanted SCREW TRIDENT II 6.5MM 25MM BONE LOW PROFILE HEXAGONAL STERILE - [id number] Screw SCREW TRIDENT II 6.5MM 25MM BONE LOW PROFILE HEXAGONAL STERILE [employer] HRLA Left 1 Implanted INSERT ACETABULAR 36MM 0D E X3 TRIDENT STERILE LATEX FREE - [id number] Joint - Hip INSERT ACETABULAR 36MM 0D E X3 TRIDENT STERILE LATEX FREE KEVIN [id number] Left 1 Implanted STEM FEMORAL 105MM SIZE 5 HIGH OFFSET INSIGNIA COLLARED - [id number] Joint - Hip STEM FEMORAL 105MM SIZE 5 HIGH OFFSET INSIGNIA COLLARED KEVIN [id number] Left 1 Implanted HEAD V40 36MM -5MM OFFSET TAPER BIOLOX DELTA FEMORAL HIP - [id number] Joint HEAD V40 36MM -5MM OFFSET TAPER BIOLOX DELTA FEMORAL HIP [facility] [id number] Left 1 Implanted Problem List: ACTIVE PROBLEM LIST Sandra (Obstructive Sleep Apnea) Allergic Rhinitis Essential Hypertension, Benign Postsurgical Hypothyroidism Primary Osteoarthritis of Both Hips Primary Osteoarthritis of Both Knees Personal History of Colonic Polyps Hyperlipidemia, Mixed Medicare Annual Wellness Visit, Subsequent Elevated Hemoglobin A1c Screening for Colon Cancer Oab (Overactive Bladder) Hammer Toes of Both Feet Foot Callus Dystrophic Nail 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 Their hip pain is severe with activity and has progressed significantly over time . X-rays reveal [id number] loss of articular cartilage of the hip with osteophytes consistent with advanced hip osteoarthritis. Non-operative treatment has been attempted, but is now ineffective at controlling symptoms during normal daily activities. Motion has become limited and rotation severely restricted. A total hip arthroplasty was recommended at this time. The risks, benefits and potential complications of the arthroplasty surgery were discussed with the patient in detail. Specific details of the procedure, hospitalization, recovery, rehabilitation, and long-term precautions were also provided. Pre-operative teaching was provided. Implant/prosthesis selection was outlined, and the many options available were ex (more content not included)... Normal SURGICAL PATHOLOGYon 024 CASE REPORT [facility] Comment on above: Order Comment: Speci men Type: TISSUE SPECIMENOrdering Facility: [facility] Address: [address] [place] [address] Result Comment: Surg ica Pathology Report Case: [id number] Authorizing Provider: Julio Cesar Deluna MD Collected: 04/21/2024 08:24 AM Ordering Location: Surgery Received: 04/21/2024 11:51 AM Pathologist: Violet Herring MD Specimen: Femoral Head, Left Performed By: #### S ####[facility] [id number] [address] [place] CLINICAL HISTORY [facility] Comment on above: Order Comment: Speci men Type: TISSUE SPECIMENOrdering Facility: [facility] Address: [address] [place] [address] Result Comment: Pre- op diagnosis: Primary osteoarthritis of left hip [M16.12] Performed By: #### S ####[facility]IA [id number] [address] OF [facility] FINAL DIAGNOSIS [facility] Comment on above: Order Comment: Speci men Type: TISSUE SPECIMENOrdering Facility: [facility] Address: [address] [place] [address] Result Comment: A. F emoral head, left, arthroplasty: - Degenerative joint disease. Performed By: #### S ####[facility] [id number] [address] OF [place] FINAL PERFORMING LAB [facility] Comment on above: Order Comment: Speci men Type: TISSUE SPECIMENOrdering Facility: [facility] Address: [address] [place] [address] Result Comment: Diag nostic interpretation performed at [facility], [address] [place] [address] CLIA# [id number] House Calls Nurse Practitioner: Hamilton Tenorio M.D. Performed By: #### S ####[facility] [id number] [address] [place] GROSS DESCRIPTION [facility] Comment on above: Order Comment: Speci men Type: TISSUE SPECIMENOrdering Facility: [facility] Address: [address] [place] [address] Result Comment: A. F emoral Head, Left Received in formalin labeled ???left femoral head??? is a 5.0 x 4.9 x 4.8 cm femoral head. The articular surface displays areas of cartilage eburnation, roughening, granularity and peripheral osteophyte formation. The femoral head is cut with a saw to reveal amor, trabecular, firm osseous cut surfaces. No grossly necrotic bone is identified. No soft tissue is present. Tight Rope Walker sections to include eburnated and non-eburnated articular surfaces are submitted in one cassette following decalcification. Gross examination performed at [facility], [address] [place] [address] CLIA# [id number] [facility] 04/21/24 Performed By: #### S ####[facility] LABIA [id number] [address] THERAPY NTon 04-21-2024 THERAPY NT HNO ID: [id number] Author: VIRGINIA PLASCENCIA PT Service: Physical Therapy Author Type: Physical Therapist Type: Therapy (PT/OT/Speech/Resp) Filed: 04/21/2024 13:40 Note Text: Summary: PT missed visit PHYSICAL THERAPY MISSED VISIT SERVICE DATE: 04/21/2024 SERVICE TIME: 1335 ROOM: [id number]- Patient not seen due to Clinical Appropriateness. Per RN, patient with poor level of alertness and not appropriate for therapy evaluation this date. Will approach as patient appropriate. SIGNATURE: Virginia Plascencia PT PATIENT NAME: Mónica Decker DATE: April 21, 2024 TIME: 1:40 PM [facility] XR PELVIS 1V APon 04-21-2024 XR PELVIS 1V AP * * *Final Report* * * DATE OF EXAM: Apr 21 2024 10:25AM MDX 5239 - XR PELVIS 1V AP / PROCEDURE REASON: Post-operative / post-procedure assessment, asymptomatic * * * * Physician Interpretation * * * * Mónica Decker EXAM(s): Pelvis HISTORY placement of LEFT total hip arthroplasty TECHNIQUE: Images: Single AP view Comparison: None. RESULT: Findings: Interval placement of LEFT total hip Arthroplasty. The components of the arthroplasty are in good alignment with respect to bones and each other. No fractures or dislocations are seen. IMPRESSION: Findings as discussed in results portion of report Credit Control Assistant: JONNY Transcribe Date/Time: Apr 21 2024 10:26A Dictated by : DORCAS GREENFIELD DO This examination was interpreted and the report reviewed and electronically signed by: DORCAS GREENFIELD DO on Apr 21 2024 10:27AM EST [id number] [facility] CBC W Auto Differential pane l (Bld)on 04-05-2024 Basophils (Bld) [#/Vol] 0.08 10*3/uL [facility] Basophils/100 WBC (Bld) 1.1 % [facility] Differential cell count method Nom (Bld) Auto [facility] Eosinophils (Bld) [#/Vol] 0.23 10*3/uL [facility] Eosinophils/100 WBC (Bld) 3.1 % [facility] Erythrocyte distribution width (RBC) [Ratio] 12.4 % 11.5 - 15.0 % [facility] Hematocrit (Bld) [Volume fraction] 38.9 % 36.0 - 46.0 % [facility] Hemoglobin (Bld) [Mass/Vol] 12.9 g/dL 11.5 - 15.5 g/dL [facility] Immature granulocytes (Bld) [#/Vol] [facility] Immature granulocytes/100 WBC (Bld) 0.3 % [facility] Lymphocytes (Bld) [#/Vol] 1.06 10*3/uL [facility] Lymphocytes/100 WBC (Bld) 14.3 % [facility] MCH (RBC) [Entitic mass] 29.9 pg 26. 0 - 34.0 pg [facility] MCHC (RBC) [Mass/Vol] 33.2 g/dL 30.5 - 36.0 g/dL [facility] MCV (RBC) [Entitic vol] 90.3 fL 80.0 - 100.0 fL [facility] Monocytes (Bld) [#/Vol] 0.55 10*3/uL [facility] Monocytes/100 WBC (Bld) 7.4 % [facility] Neutrophils (Bld) [#/Vol] 5.45 10*3/uL [facility] Neutrophils/100 WBC (Bld) 73.8 % [facility] Nucleated RBC (Bld) [#/Vol] NINF [facility] Nucleated RBC/100 WBC (Bld) [Ratio] 0.0 % /100 WBC [facility] Platelet mean volume (Bld) [Entitic vol] 10.4 fL 9.0 - 12.7 fL [facility] Platelets (Bld) [#/Vol] 263 10*3/uL [facility] RBC (Bld) [#/Vol] 4.31 10*6/uL 3.90 - 5.2 0 m/uL [facility] WBC (Bld) [#/Vol] 7.39 10*3/uL [facility] CT HIP WO IVCON LTon 024 CT HIP WO IVCON LT * * *Final Report* * * DATE OF EXAM: Mar 30 2024 9:50AM [facility] [place] HIP WO IVCON [place] / PROCEDURE REASON: Z96.642-Presence of left artificial hip joint * * * * Physician Interpretation * * * * EXAMINATION: CT HIP WO IVCON LT PATIENT/TECHNOLOGIST PROVIDED HISTORY: LT [facility] PRE OP CLINICAL HISTORY: 74 years old Female with Presence of left artificial hip joint. [facility] protocol for robotic assisted total hip arthroplasty TECHNIQUE: CT LEFT hip without contrast [facility] protocol, 0.62 mm axial slices pelvis-hips, 2.5 mm axial slices both knees. CT Radiation dose: Integrated Dose-length product (DLP) for this visit = 894 mGy*cm. CT Dose Reduction Employed: Automated exposure control(AEC) and iterative recon COMPARISON: Radiographs 02/17/2024 RESULT: Limited CT images for the purposes of presurgical planning. Hips: End-stage osteoarthritis LEFT hip with flattening and collapse and femoral head. Right total hip arthroplasty. Degenerative changes lower lumbar spine. Colonic diverticulosis. Knees: Limited evaluation of the knees demonstrates no acute osseous abnormality. Incompletely evaluated severe osteoarthritis in both knees with intra-articular bodies. Small RIGHT and trace LEFT joint effusions. Mild atrophy with fatty changes bilateral posterior distal thigh and bilateral proximal posterior calf musculature. IMPRESSION: Limited CT images for the purposes of presurgical planning. Credit Control Assistant: JONNY Transcribe Date/Time: Mar 30 2024 10:22A Dictated by : ROBINA DOS SANTOS DO This examination was interpreted and the report reviewed and electronically signed by: ROBINA DOS SANTOS DO on Mar 30 2024 10:28AM EST [id number] [facility] CT Hip - left WO contraston 03-30-2024 IMPRESSION: Limited CT images for the purposes of presurgical planning. Credit Control Assistant: JONNY Transcribe Date/Time: Mar 30 2024 10:22A Dictated by : ROBINA DOS SANTOS DO This examination was interpreted and the report reviewed and electronically signed by: ROBINA DOS SANTOS DO on Mar 30 2024 10:28AM EST [facility] * * *Final Report* * * DATE OF EXAM: Mar 30 2024 9:50AM [facility] - [place] HIP WO IVCON LT / PROCEDURE REASON: Z96.642-Presence of left artificial hip joint * * * * Physician Interpretation * * * * EXAMINATION: CT HIP WO IVCON LT PATIENT/TECHNOLOGIST PROVIDED HISTORY: LT [facility] PRE OP CLINICAL HISTORY: 74 years old Female with Presence of left artificial hip joint. [facility] protocol for robotic assisted total hip arthroplasty TECHNIQUE: CT LEFT hip without contrast [facility] protocol, 0.62 mm axial slices pelvis-hips, 2.5 mm axial slices both knees. CT Radiation dose: Integrated Dose-length product (DLP) for this visit = 894 mGy*cm. CT Dose Reduction Employed: Automated exposure control(AEC) and iterative recon COMPARISON: Radiographs 02/17/2024 RESULT: Limited CT images for the purposes of presurgical planning. Hips: End-stage osteoarthritis LEFT hip with flattening and collapse and femoral head. Right total hip arthroplasty. Degenerative changes lower lumbar spine. Colonic diverticulosis. Knees: Limited evaluation of the knees demonstrates no acute osseous abnormality. Incompletely evaluated severe osteoarthritis in both knees with intra-articular bodies. Small RIGHT and trace LEFT joint effusions. Mild atrophy with fatty changes bilateral posterior distal thigh and bilateral proximal posterior calf musculature. [facility] Provider, Purnima Goff - 03/30/2024 * * *Final Report* * * DATE OF EXAM: Mar 30 2024 9:50AM [facility] - [place] HIP WO IVCON LT / PROCEDURE REASON: Z96.642-Presence of left artificial hip joint * * * * Physician Interpretation * * * * EXAMINATION: CT HIP WO IVCON LT PATIENT/TECHNOLOGIST PROVIDED HISTORY: LT [facility] PRE OP CLINICAL HISTORY: 74 years old Female with Presence of left artificial hip joint. [facility] protocol for robotic assisted total hip arthroplasty TECHNIQUE: CT LEFT hip without contrast [facility] protocol, 0.62 mm axial slices pelvis-hips, 2.5 mm axial slices both knees. CT Radiation dose: Integrated Dose-length product (DLP) for this visit = 894 mGy*cm. CT Dose Reduction Employed: Automated exposure control(AEC) and iterative recon COMPARISON: Radiographs 02/17/2024 RESULT: Limited CT images for the purposes of presurgical planning. Hips: End-stage osteoarthritis LEFT hip with flattening and collapse and femoral head. Right total hip arthroplasty. Degenerative changes lower lumbar spine. Colonic diverticulosis. Knees: Limited evaluation of the knees demonstrates no acute osseous abnormality. Incompletely evaluated severe osteoarthritis in both knees with intra-articular bodies. Small RIGHT and trace LEFT joint effusions. Mild atrophy with fatty changes bilateral posterior distal thigh and bilateral proximal posterior calf musculature. IMPRESSION IMPRESSION: Limited CT images for the purposes of presurgical planning. Credit Control Assistant: PSCB Transcribe Date/Time: Mar 30 2024 10:22A Dictated by : ROBINA DOS SANTOS DO This examination was interpreted and the report reviewed and electronically signed by: ROBINA DOS SANTOS DO on Mar 30 2024 10:28AM EST [facility] Radiology Study observation (narrative) Sol [facility]att CT Hip - left WO contrastOrd ered By: Ccf Provider on 03-30-2024 [facility] Dangelo 03-10-2024 CNPN Telephone (MI2E) BRIANNEMÓNCIA ([id number]) 1950 F NFR Date Time Provider Department 03/10/24 JULIO CESAR DELUNA During your visit today, we recorded the following information about you: Lazaro Stephens PSS 03/10/2024 7:31 AM Signed TOTAL JOINT COMPLETE CARE PROGRAM PRE-OPERATIVE TEACHING Service Date: 03/10/2024 Service Time: 7:30 AM Date of : 1950 Gender: female Date of Surgery: 04/21/24 Procedure: Left Total Hip Replacement Complete Care 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 Pt has cane, walker, crutches, raised toilet seat. Discussed with patient importance of attending joint education class and provided date and times of class: YES prior COTY 06/18 Patient received Joint Education Binder: Yes Plans discharge home with [facility]. SIGNATURE: ERIC Kelsey PATIENT NAME: Mónica Decker DATE: March 10, 2024 TIME: 7:29 AM Allergies As of Date: 03/10/2024 Noted Allergy Reaction LATEX 03/07/2021 16 - Unknown Date Reviewed: 02/17/2024 Reviewed by: Julio Cesar Deluna MD - Fully Assessed Reason for Visit: Pre-Op Teaching [134] Prescriptions as of 03/10/2024 - levothyroxine (LEVOXYL) 150 mcg tablet Take 1 tablet by mouth once daily. Mon-Sat and 1/2 a tab on Friday. - lisinopril (ZESTRIL) 40 mg tablet Take 1 tablet by mouth once daily. - amLODIPine (NORVASC) 10 mg tablet Take 1 tablet by mouth once daily. - furosemide (LASIX) 40 mg tablet Take 1 tablet by mouth once daily. - amoxicillin (AMOXIL) 500 mg capsule Please take 4 capsules by mouth 1 (one) hour prior to your dental appointment. - naproxen sodium (ALEVE) 220 mg cap Take by mouth as needed. - ascorbic acid, vitamin C, (VITAMIN C) 500 mg tablet Take 1 tablet by mouth twice daily with meals for 28 doses. - pravastatin (PRAVACHOL) 10 mg tablet Take 1 tablet by mouth once daily. - Lactobac no.41/Bifidobact no.7 (PROBIOTIC-10 ORAL) Take 1-2 tablets by mouth once daily. - OTC PRODUCT Takes beet powder daily - cholecalciferol, vitamin D3, (VITAMIN D3 ORAL) Take 1 tablet by mouth once daily. - COLLAGEN MISC 1 tablet once daily. Collagen blend + #2 - omega-3 fatty acids 1,000 mg cap Take 1 capsule by mouth three times daily. - COENZYME Q10 60 MG CAP Take one(1) tablet daily. - multivitamins w-minerals(DAILY MULTIVITAMIN-MINERALS TAB) Take one(1) tablet daily. Problem List As Of Date 03/10/2024 Noted Resolved SANDRA (obstructive sleep apnea) [G47.33] 07/08/2005 Allergic rhinitis [J30.9] 07/08/2005 Essential hypertension, benign [I10] 07/08/2005 NONTOX NODUL GOITER NOS [E04.9] 07/08/2005 09/04/2005 Postsurgical hypothyroidism [E89.0] 09/04/2005 Primary osteoarthritis of both hips [M16.0] 06/20/2015 Primary osteoarthritis of both knees [M17.0] 06/20/2015 Personal history of colonic polyps [Z86.010] 03/14/2016 Hyperlipidemia, mixed [E78.2] 02/05/2018 Medicare annual wellness visit, subsequent [Z00*08/27/2018 Well adult exam [Z00.00] 08/27/2018 03/25/2020 Elevated hemoglobin A1c [R73.09] 08/27/2018 Screening for colon cancer [Z12.11] 08/27/2018 OAB (overactive bladder) [N32.81] 12/19/2020 Hammer toes of both feet [M20.41, M20.42] 01/24/2021 Foot callus [L84] 01/24/2021 Dystrophic nail [L60.3] 01/24/2021 Acute idiopathic gout involving toe of right fo*01/24/2021 Obesity, Class II, BMI 35-39.9 [E66.9] 02/19/2021 Advance directive discussed with patient [Z71.8*02/14/2022 Dermatitis [L30.9] 01/09/2023 Bilateral hip pain [M25.551, M25.552] 06/05/2023 TARANGO (dyspnea on exertion) [R06.09] 06/13/2023 S/P total right hip arthroplasty [Z96.641] 06/26/2023 Primary osteoarthritis of right hip [M16.11] 07/30/2023 Encounter Status:Closed by LAZARO STEPHENS on 03/10/24 [facility] XR Hip - right AP and Latera geo 02-19-2024 IMPRESSION: Right total hip arthroplasty without complication. Credit Control Assistant: JONNY Transcribe Date/Time: Feb 19 2024 10:44A Dictated by : WILEY KIRK MD This examination was interpreted and the report reviewed and electronically signed by: WILEY KIRK MD on Feb 19 2024 10:48AM [facility] * * *Final Report* * * DATE OF EXAM: Feb 17 2024 10:23AM NIKHIL 5280 - XR HIP 2V AP/LAT RT / PROCEDURE REASON: M25.551-Pain in right hip * * * * Physician Interpretation * * * * EXAMINATION / TECHNIQUE: XR HIP 2V AP/LAT RT HISTORY: FOLLOW-UP FOR RIGHT HIP PAIN Pain in right hip COMPARISON: 07/10/2023 RESULT: Postoperative changes of right total hip arthroplasty. Hardware is intact without evidence of failure or loosening. Bony alignment is unchanged. End-stage left hip osteoarthritis with femoral head flattening/collapse, similar to previous. No acute bony abnormality. Vascular calcifications. [facility] Provider, Purnima Goff - 02/19/2024 * * *Final Report* * * DATE OF EXAM: Feb 17 2024 10:23AM NI[facility] 5280 - XR HIP 2V AP/LAT RT / PROCEDURE REASON: M25.551-Pain in right hip * * * * Physician Interpretation * * * * EXAMINATION / TECHNIQUE: XR HIP 2V AP/LAT RT HISTORY: FOLLOW-UP FOR RIGHT HIP PAIN Pain in right hip COMPARISON: 07/10/2023 RESULT: Postoperative changes of right total hip arthroplasty. Hardware is intact without evidence of failure or loosening. Bony alignment is unchanged. End-stage left hip osteoarthritis with femoral head flattening/collapse, similar to previous. No acute bony abnormality. Vascular calcifications. IMPRESSION IMPRESSION: Right total hip arthroplasty without complication. Credit Control Assistant: [facility] Transcribe Date/Time: Feb 19 2024 10:44A Dictated by : WILEY KIRK MD This examination was interpreted and the report reviewed and electronically signed by: WILEY KIRK MD on Feb 19 2024 10:48AM EST [facility] XR Hip - right AP and Latera lOrdered By: Ccf Provider on 02-19-2024 [facility] XR HIP 2V AP/LAT RTon 2023 XR HIP 2V AP/LAT RT * * *Final Report* * * DATE OF EXAM: Feb 17 2024 10:23AM [facility] 5280 - XR HIP 2V AP/LAT RT / PROCEDURE REASON: M25.551-Pain in right hip * * * * Physician Interpretation * * * * EXAMINATION / TECHNIQUE: XR HIP 2V AP/LAT RT HISTORY: FOLLOW-UP FOR RIGHT HIP PAIN Pain in right hip COMPARISON: 07/10/2023 RESULT: Postoperative changes of right total hip arthroplasty. Hardware is intact without evidence of failure or loosening. Bony alignment is unchanged. End-stage left hip osteoarthritis with femoral head flattening/collapse, similar to previous. No acute bony abnormality. Vascular calcifications. IMPRESSION: Right total hip arthroplasty without complication. Credit Control Assistant: Crono Transcribe Date/Time: Feb 19 2024 10:44A Dictated by : WILEY KIRK MD This examination was interpreted and the report reviewed and electronically signed by: WILEY KIRK MD on Feb 19 2024 10:48AM EST [id number] [facility] XR Hip - right AP and Latera geo 02-17-2024 Radiology Study observation (narrative) [facility] CBC W Auto Differential pane l (Bld)on 08-12-2023 Basophils (Bld) [#/Vol] 0.07 10*3/uL <0.11 k/uL [facility] Basophils/100 WBC (Bld) 1.2 % [facility] Differential cell count method Nom (Bld) Auto [facility] Eosinophils (Bld) [#/Vol] 0.11 10*3/uL <0.46 k/uL [facility] Eosinophils/100 WBC (Bld) 1.8 % [facility] Erythrocyte distribution width (RBC) [Ratio] 12.3 % 11.5 - 15.0 % [facility] Hematocrit (Bld) [Volume fraction] 37.5 % 36.0 - 46.0 % [facility] Hemoglobin (Bld) [Mass/Vol] 12.6 g/dL 11.5 - 15.5 g/dL [facility] Immature granulocytes (Bld) [#/Vol] <0.10 k/uL [facility] Immature granulocytes/100 WBC (Bld) 0.3 % [facility] Lymphocytes (Bld) [#/Vol] 1.08 10*3/uL 1.00 - 4.00 k/uL [facility] Lymphocytes/100 WBC (Bld) 17.9 % [facility] MCH (RBC) [Entitic mass] 30.3 pg 26. 0 - 34.0 pg [facility] MCHC (RBC) [Mass/Vol] 33.6 g/dL 30.5 - 36.0 g/dL [facility] MCV (RBC) [Entitic vol] 90.1 fL 80.0 - 100.0 fL [facility] Monocytes (Bld) [#/Vol] 0.46 10*3/uL <0.87 k/uL [facility] Monocytes/100 WBC (Bld) 7.6 % [facility] Neutrophils (Bld) [#/Vol] 4.30 10*3/uL 1.45 - 7.50 k/uL [facility] Neutrophils/100 WBC (Bld) 71.2 % [facility] Nucleated RBC (Bld) [#/Vol] <0.01 k/uL [facility] Nucleated RBC/100 WBC (Bld) [Ratio] 0.0 /100 WBC [facility] Platelet mean volume (Bld) [Entitic vol] 9.5 fL 9.0 - 12.7 fL [facility] Platelets (Bld) [#/Vol] 265 10*3/uL 150 - 400 k/uL [facility] RBC (Bld) [#/Vol] 4.16 10*6/uL 3.90 - 5.2 0 m/uL [facility] WBC (Bld) [#/Vol] 6.04 10*3/uL 3.70 - 11. 00 k/uL [facility] XR Hip - right AP and Latera geo 07-14-2023 IMPRESSION: Intact right total hip arthroplasty. End-stage osteoarthritis of the left hip, unchanged. Credit Control Assistant: PSCB Transcribe Date/Time: Jul 14 2023 11:14A Dictated by : AMBER JONES MD This examination was interpreted and the report reviewed and electronically signed by: AMBER JONES MD on Jul 14 2023 11:17AM [facility] * * *Final Report* * * DATE OF EXAM: Jul 10 2023 12:40PM [facility] 5280 - XR HIP 2V AP/LAT RT / PROCEDURE REASON: M25.551-Pain in right hip * * * * Physician Interpretation * * * * EXAMINATION / TECHNIQUE: XR HIP 2V AP/LAT RT PATIENT/TECHNOLOGIST PROVIDED HISTORY: 1ST POST-OP FOLLOW-UP FOR RIGHT HIP CLINICAL INFORMATION ( PROVIDED BY ORDERING CLINICIAN) : Pain in right hip COMPARISON: 06/25/2023 and prior RESULT: Right total hip arthroplasty with acetabular screw. No periprosthetic fracture or evidence of loosening. Unchanged advanced left hip arthrosis with flattening of the left femoral head. [facility] Provider, Purnima Melo [facility] - 07/14/2023 * * *Final Report* * * DATE OF EXAM: Jul 10 2023 12:40PM MDO 5280 - XR HIP 2V AP/LAT RT / PROCEDURE REASON: M25.551-Pain in right hip * * * * Physician Interpretation * * * * EXAMINATION / TECHNIQUE: XR HIP 2V AP/LAT RT PATIENT/TECHNOLOGIST PROVIDED HISTORY: 1ST POST-OP FOLLOW-UP FOR RIGHT HIP CLINICAL INFORMATION ( PROVIDED BY ORDERING CLINICIAN) : Pain in right hip COMPARISON: 06/25/2023 and prior RESULT: Right total hip arthroplasty with acetabular screw. No periprosthetic fracture or evidence of loosening. Unchanged advanced left hip arthrosis with flattening of the left femoral head. IMPRESSION IMPRESSION: Intact right total hip arthroplasty. End-stage osteoarthritis of the left hip, unchanged. Credit Control Assistant: JONNY Transcribe Date/Time: Jul 14 2023 11:14A Dictated by : AMBER JONES MD This examination was interpreted and the report reviewed and electronically signed by: AMBER JONES MD on Jul 14 2023 11:17AM EST [facility] XR Hip - right AP and Latera lOrdered By: Ccf Provider on 07-14-2023 [facility] XR HIP 2V AP/LAT RTon 2022 XR HIP 2V AP/LAT RT * * *Final Report* * * DATE OF EXAM: Jul 10 2023 12:40PM NI[facility] 5280 - XR HIP 2V AP/LAT RT / PROCEDURE REASON: M25.551-Pain in right hip * * * * Physician Interpretation * * * * EXAMINATION / TECHNIQUE: XR HIP 2V AP/LAT RT PATIENT/TECHNOLOGIST PROVIDED HISTORY: 1ST POST-OP FOLLOW-UP FOR RIGHT HIP CLINICAL INFORMATION ( PROVIDED BY ORDERING CLINICIAN) : Pain in right hip COMPARISON: 06/25/2023 and prior RESULT: Right total hip arthroplasty with acetabular screw. No periprosthetic fracture or evidence of loosening. Unchanged advanced left hip arthrosis with flattening of the left femoral head. IMPRESSION: Intact right total hip arthroplasty. End-stage osteoarthritis of the left hip, unchanged. Credit Control Assistant: JONNY Transcribe Date/Time: Jul 14 2023 11:14A Dictated by : AMBER JONES MD This examination was interpreted and the report reviewed and electronically signed by: AMBER JONES MD on Jul 14 2023 11:17AM EST [id number] Normal XR Hip - right AP and Latera geo 07-10-2023 Radiology Study observation (narrative) [facility] Basic metabolic 2000 panelon 06-26-2023 Anion gap [Moles/Vol] 11 mmol/L Normal 07-14 [facility] Comment on above: Order Comment: Speci men Type: BLOOD SPECIMENOrdering Facility: [facility] Address: [address] [place] [address] Performed By: #### 2 4321-2 ####[facility]ORATORYCLIA [id number] [place] [address] OF [facility] Calcium [Mass/Vol] 8.6 mg/dL Normal 8.5-10.2 Comment on above: Order Comment: Speci men Type: BLOOD SPECIMENOrdering Facility: [facility] Address: [address] [place] [address] Performed By: #### 2 4321-2 ####[facility] LABORATORYCLIA [id number] [place] [address] [place] Chloride [Moles/Vol] 97 mmol/L Normal 97-105 [facility] Comment on above: Order Comment: Speci men Type: BLOOD SPECIMENOrdering Facility: [facility] Address: [address] [place] [address] Performed By: #### 2 4321-2 ####[facility] LABORATORYCLIA [id number] [address] [place] CO2 [Moles/Vol] 24 mmol/L Normal 22-30 Comment on above: Order Comment: Speci men Type: BLOOD SPECIMENOrdering Facility: [facility] Address: [address] [place] [address] Performed By: #### 2 4321-2 ####[facility] LABORATORYCLIA [id number] [address] [place] Creatinine [Mass/Vol] 0.79 mg/dL Normal 0.58-0.96 [facility] Comment on above: Order Comment: Speci men Type: BLOOD SPECIMENOrdering Facility: [facility] Address: [address] [place] [address] Performed By: #### 2 4321-2 ####[facility] LABORATORYCLIA [id number] [address] [place] Creatinine and Glomerular filtration rate.predicted panel (S/P/Bld) 79 mL/min/1.73m??? Normal >=60 Comment on above: Order Comment: Speci men Type: BLOOD SPECIMENOrdering Facility: [facility] Address: [address] [place] [address] Result Comment: Ashley mated Glomerular Filtration Rate (eGFR) is calculated using the 2021 CKD-EPI creatinine equation. This equation utilizes serum creatinine, sex, and age as parameters. The creatinine assay has traceable calibration to isotope dilution-mass spectrometry. Refer to KDIGO guidelines for clinical interpretation. In patients with unstable renal function, e.g. those with acute kidney injury, the eGFR may not accurately reflect actual GFR. Performed By: #### 2 4321-2 ####[facility] LABORATORYCLIA [id number] [place] [address] [place] Glucose [Mass/Vol] 118 mg/dL High 74-99 Comment on above: Order Comment: Jeri felix Type: BLOOD SPECIMENOrdering Facility: [facility] Address: [address] [place] [id number] Result Comment: The [place] Diabetes Association (ADA) provides guidance for cutoff values for fasting glucose and random glucose. The ADA defines fasting as no caloric intake for at least 8 hours. Fasting plasma glucose results between 100 to 125 mg/dL indicate increased risk for diabetes (prediabetes). Fasting plasma glucose results greater than or equal to 126 mg/dL meet the criteria for diagnosis of diabetes. In the absence of unequivocal hyperglycemia, results should be confirmed by repeat testing. In a patient with classic symptoms of hyperglycemia or hyperglycemic crisis, random plasma glucose results greater than or equal to 200 mg/dL meet the criteria for diagnosis of diabetes. Reference: Standards of Medical Care in Diabetes 2016, [place] Diabetes Association. Diabetes Care. 2016.39(Suppl 1). Performed By: #### 2 4321-2 ####[facility] LABORATORYCLIA [id number] [place] [id number] [place] Potassium [Moles/Vol] 4.0 mmol/L Normal 3.7-5.1 [facility] Comment on above: Order Comment: Jeri felix Type: BLOOD SPECIMENOrdering Facility: [facility] Address: [address] [place] [address] Performed By: #### 2 4321-2 ####[facility] LABORATORYCLIA [id number] [place] [address] [place] Sodium [Moles/Vol] 132 mmol/L Low 136-144 Comment on above: Order Comment: Jeri feilx Type: BLOOD SPECIMENOrdering Facility: [facility] Address: [address] [place] [address] Performed By: #### 2 4321-2 ####[facility] LABORATORYCLIA [id number] [place] [id number] [place] Urea nitrogen [Mass/Vol] 17 mg/dL Normal 7-21 Comment on above: Order Comment: Speci men Type: BLOOD SPECIMENOrdering Facility: [facility] Address: [place] [address] Performed By: #### 2 4321-2 ####[facility] LABORATORYCLIA [id number] [place] [id number] [facility] [place] CASE MANAGEMon 06-26-2023 CASE MANAGEM HNO ID: [id number] Author: Shannon Miles RN Service: ? Author Type: Registered Nurse Type: Care Mgt Progress Note Filed: 06/26/2023 10:45 AM Note Text: CARE MANAGEMENT DISCHARGE NOTE SERVICE DATE: June 26, 2023 SERVICE TIME: 10:44 AM Admission Date: 06/25/2023 LOS: 0 days Discharge Arrangement Discharge Arrangement: Home with Home Health Services Arranged Medical Services: Skilled Home Health Care Type: Home Health Agency, Physical Therapy Provider Name: [facility] Caregiver Assessment Caregiver is ready, willing and able to meet the patient's needs as recommended by the inter-professional team: Yes Name of Caregiver: Brother Transportation Arrangements Transportation Arrangements: Car-Brother to transport. Handoff Communication: Handoff to: Primary Care Physician Primary Care Physician Name/Phone: Dr.Jeffrey Marmolejo- [phone] Additional Information: Discharge order written for today. [facility] will be seeing the patient for [facility] services at discharge, SOC 06/27/23. Notified [facility] of the patients discharge home today. Discharge instructions sent to [facility] via Erly. Discharge Information Row Name Admission (Current) from 06/25/[address] [facility] Start of Care 06/27/23 SIGNATURE: Shannon Miles RN PATIENT NAME: Mónica Decker DATE: June 26, 2023 TIME: 10:44 AM CONTACT #: [phone] Normal CBC panel Auto (Bld)on 06-26 Erythrocyte distribution width (RBC) [Ratio] 12.1 % Normal 11.5-15.0 Comment on above: Order Comment: Speci men Type: BLOOD SPECIMENOrdering Facility: [facility] Address: [address] [place] [address] Performed By: #### 5 8410-2 ####[facility] LABORATORYCLIA [id number] [address] Hematocrit (Bld) [Volume fraction] 31.5 % Low 36.0-46.0 Comment on above: Order Comment: Speci men Type: BLOOD SPECIMENOrdering Facility: [facility] Address: [address] [place] [address] Performed By: #### 5 8410-2 ####[facility] LABORATORYCLIA [id number] [address] Hemoglobin (Bld) [Mass/Vol] 11.0 g/dL Low 11.5-15.5 Comment on above: Order Comment: Speci men Type: BLOOD SPECIMENOrdering Facility: [facility] Address: [address] [place] [address] Performed By: #### 5 8410-2 ####[facility] LABORATORYCLIA [id number] [address] MCH (RBC) [Entitic mass] 31.3 pg Normal 26.0-34.0 Comment on above: Order Comment: Speci men Type: BLOOD SPECIMENOrdering Facility: [facility] Address: [address] [place] [address] Performed By: #### 5 8410-2 ####[facility] LABORATORYCLIA [id number] [address] MCHC (RBC) [Mass/Vol] 34.9 g/dL Normal 30.5-36.0 [facility] Comment on above: Order Comment: Speci men Type: BLOOD SPECIMENOrdering Facility: [facility] Address: [address] [place] [address] Performed By: #### 5 8410-2 ####[facility] LABORATORYCLIA [id number] [address] [place] MCV (RBC) [Entitic vol] 89.7 fL Normal 80.0-100.0 [facility] Comment on above: Order Comment: Speci men Type: BLOOD SPECIMENOrdering Facility: [facility] Address: [address] [place] [address] Performed By: #### 5 8410-2 ####[facility] LABORATORYCLIA [id number] [address] [place] Nucleated RBC (Bld) [#/Vol] 10*3/uL Normal <0.01 Comment on above: Order Comment: Speci men Type: BLOOD SPECIMENOrdering Facility: [facility] Address: [address] [place] [address] Performed By: #### 5 8410-2 ####[facility] LABORATORYCLIA [id number] [address] [place] Platelet mean volume (Bld) [Entitic vol] 9.1 fL Normal 9.0-12.7 Comment on above: Order Comment: Speci men Type: BLOOD SPECIMENOrdering Facility: [facility] Address: [address] [place] [address] Performed By: #### 5 8410-2 ####[facility] LABORATORYCLIA [id number] [address] [place] Platelets (Bld) [#/Vol] 191 10*3/uL Normal 150-400 Comment on above: Order Comment: Speci men Type: BLOOD SPECIMENOrdering Facility: [facility] Address: [address] [place] [address] Performed By: #### 5 8410-2 ####[facility] LABORATORYCLIA [id number] [place] [address] [place] RBC (Bld) [#/Vol] 3.51 10*6/uL Low 3.90-5.20 [facility] Comment on above: Order Comment: Specmyranda felix Type: BLOOD SPECIMENOrdering Facility: [facility] Address: [facility] [place] [phone] Performed By: #### 5 8410-2 ####[facility] LABORATORYCLIA [id number] [place] [address] [facility] WBC (Bld) [#/Vol] 10.73 10*3/uL Normal 3.70-11.00 [facility] Comment on above: Order Comment: Specmyranda men Type: BLOOD SPECIMENOrdering Facility: [facility] Address: [address] [place] [phone] Performed By: #### 5 8410-2 ####[facility] LABORATORYCLIA [id number] [address] CNCOon 06-26-2023 [facility] Letter (Out) (ME2E) MÓNICA DECKER ([id number]) 1950 F NFR Date Time Provider Department 06/26/23 MIKE RODRIGUES ME2E During your visit today, we recorded the following information about you: Allergies As of Date: 06/26/2023 Noted Allergy Reaction LATEX 03/07/2021 16 - Unknown Date Reviewed: 06/25/2023 Reviewed by: Bev Diaz, ABIDA - Fully Assessed Prescriptions as of 06/26/2023 - polyethylene glycol 3350 17 gram packet Take 1 Packet by mouth once daily. Dissolve dose in 4 - 8 ounces of liquid and take as directed. - ferrous sulfate 325 mg (65 mg iron) tablet Take 1 tablet by mouth daily with lunch for 7 doses. - ascorbic acid, vitamin C, (VITAMIN C) 500 mg tablet Take 1 tablet by mouth twice daily with meals for 28 doses. - acetaminophen (TYLENOL) 500 mg tablet Take 2 tablets by mouth every 8 hours as needed for pain. - aspirin, enteric coated (ASPIRIN, ENTERIC COATED) 81 mg EC tablet Take 1 tablet by mouth twice daily for 28 days. - docusate sodium (COLACE) 100 mg capsule Take 1 capsule by mouth twice daily as needed for constipation. - meloxicam (MOBIC) 15 mg tablet Take 1 tablet by mouth once daily for 14 days. - pantoprazole DR (PROTONIX) 20 mg tablet Take 1 tablet by mouth every morning for 14 days. - oxyCODONE IR (ROXICODONE) 5 mg immediate release tablet Take 1-2 tablets by mouth every 6 hours as needed for pain. - pravastatin (PRAVACHOL) 10 mg tablet Take 1 tablet by mouth once daily. - hydroCHLOROthiazide 25 mg tablet Take 1 tablet by mouth once daily. - lisinopril (ZESTRIL) 10 mg tablet Take 1 tablet by mouth once daily. - levothyroxine (SYNTHROID) 137 mcg tablet Take 1 tablet by mouth once daily. - mometasone (ELOCON) 0.1 % cream Apply to areas twice a day. On for 4 days and off for 3 days. Repeat as needed. - Lactobac no.41/Bifidobact no.7 (PROBIOTIC-10 ORAL) Take 1-2 tablets by mouth once daily. - peg 3350-Electrolytes (GOLYTELY) 236-22.74-6.74 -5.86 gram suspension Refer to printed prep instructions from your provider. - OTC PRODUCT Takes beet powder daily - cholecalciferol, vitamin D3, (VITAMIN D3 ORAL) Take 1 tablet by mouth once daily. - COLLAGEN MISC 1 tablet once daily. Collagen blend + #2 - omega-3 fatty acids 1,000 mg cap Take 1 capsule by mouth three times daily. - COENZYME Q10 60 MG CAP Take one(1) tablet daily. - multivitamins w-minerals(DAILY MULTIVITAMIN-MINERALS TAB) Take one(1) tablet daily. Facility-Administered Medications as of 06/26/2023 - scopolamine - VERIFY patch - scopolamine - REMOVE PATCH - pravastatin 10 mg tab(s) (PRAVACHOL) - lisinopril 10 mg tab(s) (ZESTRIL) - therapeutic multivitamin-minerals tablet (THERA-M PLUS) - hydroCHLOROthiazide 25 mg tab(s) - levothyroxine 137 mcg tab(s) (SYNTHROID) - aspirin, enteric coated 81 mg tab(s) - lactated ringers iv infusion - acetaminophen 1,000 mg tab(s) (TYLENOL) - oxyCODONE IR 5-10 mg tab(s) (ROXICODONE) - HYDROmorphone 0.2 mg injection (DILAUDID) - ondansetron orally disintegrating 4 mg tab(s) (ZOFRAN ODT) - ondansetron (PF) 4 mg injection (ZOFRAN) - polyethylene glycol 3350 17 g packet - aluminum-magnesium hydroxide-simethicone 200-200-20 mg/5 mL 30 mL - ferrous sulfate 325 mg tab(s) - ascorbic acid (vitamin C) 500 mg tab(s) (VITAMIN C) - docusate sodium 100 mg cap(s) (COLACE) - phenol 2 [place] (CHLORASEPTIC) - keTORolac 15 mg injection (Toradol) Problem List As Of Date 06/26/2023 Noted Resolved SANDRA (obstructive sleep apnea) [G47.33] 07/08/2005 Allergic rhinitis [J30.9] 07/08/2005 Essential hypertension, benign [I10] 07/08/2005 NONTOX NODUL GOITER NOS [E04.9] 07/08/2005 09/04/2005 Postsurgical hypothyroidism [E89.0] 09/04/2005 Primary osteoarthritis of both hips [M16.0] 06/20/2015 Primary osteoarthritis of both knees [M17.0] 06/20/2015 Personal history of colonic polyps [Z86.010] 03/14/2016 Hyperlipidemia, mixed [E78.2] 02/05/2018 Medicare annual wellness visit, subsequent [Z00*08/27/2018 Well adult exam [Z00.00] 08/27/2018 03/25/2020 Elevated hemoglobin A1c [R73.09] 08/27/2018 Screening for colon cancer [Z12.11] 08/27/2018 OAB (overactive bladder) [N32.81] 12/19/2020 Hammer toes of both feet [M20.41, M20.42] 01/24/2021 Foot callus [L84] 01/24/2021 Dystrophic nail [L60.3] 01/24/2021 Acute idiopathic gout involving toe of right fo*01/24/2021 Obesity, Class II, BMI 35-39.9 [E66.9] 02/19/2021 Advance directive discussed with patient [Z71.8*02/14/2022 Dermatitis [L30.9] 01/09/2023 Bilateral hip pain [M25.551, M25.552] 06/05/2023 TARANGO (dyspnea on exertion) [R06.09] 06/13/2023 S/P total right hip arthroplasty [Z96.641] 06/26/2023 Letter Text Encounter Status:Closed by VICKI CACERES on 06/26/23 [facility] THERAPY NTon 06-26-2023 THERAPY NT HNO ID: [id number] Author: Jie Lopez OTR/Dale Service: Occupational Therapy Author Type: Occupational Therapist Type: Therapy (PT/OT/Speech/Resp) Filed: 06/26/2023 2:20 PM Note Text: Occupational Therapy Evaluation SERVICE DATE: 06/26/2023 SERVICE TIME: 1110 to 1206 ROOM: [place] [address] Recommended Discharge Disposition: Subacute/SNF Recommended Discharge Disposition Comments: Patient could benefit from continued education on new learning with use of adaptive equipment, follow through with hip precautions, with goal to return home alone Recommended Discharge Disposition Due to: Patient requires daily, facility-based rehabilitation from at least one discipline due to:, ADL impairment resulting in caregiver dependence, anticipate community discharge/previous community dweller, decline in functional status requiring daily skilled care, ongoing intervention of multiple therapy disciplines Anticipated Discharge Needs: Physical Assist at Home, Supervision at Home Physical Assist at Home for: Cleaning, Laundry, Meals, Transportation, Shopping, Self Care Supervision at Home due to: Decreased safety awareness OT 6 Clicks Score: 18 Precautions/Activity Restrictions: Posterior Hip Precautions, Fall Risk, Lines/Tubes/Drains, Weight Bearing Restrictions Extremity With Weight Bearing Restricted: Right Lower Extremity Right Lower Extremity Weight Bearing Status: 50% PWB Current Hospital Course: s/p R COTY Reason for Hospital Admission: Primary osteoarthritis of right hip Relevant Past Medical History: HTN, HLD, white coat syndrome, anxiety, obesity, fractures elbow with decreased ROM, 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 Patient requires maximal verbal cues to adhere to hip precautions during lower body self-cares. Patient will require at least minimal to moderate assist for ADLs and IADLs at this time. Continued Skilled Needs Due to: Family Training Required, Functional Impairment, Safety Concerns Occupational Therapy Problem List: Pain, Safety Deficits, Impaired Self Care, Functional Mobility Impairment Cognition/Communicatio n Deficits Orientation Deficits: (alert and oriented x4, intermittent confusion) Follows Commands: 1-step Commands Treatment Interventions: Education, Self Care/Home Management, Functional Mobility Training Plan for Next Visit: Bathing Training, Dressing Training, Equipment Needed (specify) Home Environment Patient Lives With: Self/Alone Assistance Available: PRN (one brother 5 miles away; one on same property) Entry To Home: Ramp Number Of Stairs To Bed/Bath: 0 Tub/Shower Type: combo; + shower bench. Reports, I prefer to use 70% alchohol. 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 Pt reports fear of shower transfers, reports use of rubbing alcohol with papertowels for bathing. Reports difficulty donning socks, using microwave meals. + driving, uses cane for ambulation, denies any falls in past 6 months. Reports has 30 cats, brother assists with taking care of cats and horses. 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 CURRENT FUNCTIONAL STATUS: Most recent performance Current Activities of Daily Living Assist Level Additional Information Feeding Independent Grooming Contact Guard Assistance, Additional Information For safety during standing portion of task Bathing Upper Body Minimal Assistance, Additional Information Due to impaired bilateral upper extremity active range of motion Bathing Lower Body Additional Information, Moderate Assistance For thoroughness of task, patient will need long handled sponge Dressing Upper Body Set Up Dressing Lower Body Moderate Assistance, Additional Information Patient was able to don underwear and shorts with use of birth certificate clerk. Max cues to limit bending and for new learning Toileting Minimal Assistance, Additional Information For thoroughness of buttocks hygiene Instrumental Activities of Daily Living Assist Level Additional Information Meal/Beverage Pre (more content not included)... [facility] THERAPY NT HNO ID: [id number] Author: Virginia Plascencia, PT Service: Physical Therapy Author Type: Physical Therapist Type: Therapy (PT/OT/Speech/Resp) Filed: 06/26/2023 12:19 PM Note Text: Physical Therapy Treatment SERVICE DATE: 06/26/2023 SERVICE TIME: 827 to 1024 ROOM: [place] [address] Total Joint Replacement Discharge Readiness: Cleared from Physical Therapy Recommended Discharge Disposition: Subacute/SNF (likely to progress) Recommended Discharge Disposition Comments: Pt currently functioning below baseline s/p R COTY with increased pain, post-op edema, decreased RLE ROM, decreased RLE strength, impaired activity tolerance, impaired balance, and overall decreased functional mobility requiring continued skilled services post acute stay to address deficits Recommended Discharge Disposition Due to: Patient requires daily, facility-based rehabilitation from at least one discipline due to:, ADL impairment resulting in caregiver dependence, anticipate community discharge/previous community dweller, decline in functional status requiring daily skilled care, deficits affecting dominant side, deficits affecting non-dominant side, ongoing intervention of multiple therapy disciplines Anticipated Discharge Needs: Physical Assist at Home, Supervision at Home Physical Assist at Home for: Cleaning, Laundry, Meals, Transportation, Shopping, Self Care Supervision at Home due to: Decreased safety awareness Recommended Discharge Equipment: No equipment needs anticipated PT 6 Clicks Score: 18 Precautions/Activity Restrictions: Posterior Hip Precautions, Fall Risk, Lines/Tubes/Drains, Weight Bearing Restrictions Extremity With Weight Bearing Restricted: Right Lower Extremity Right Lower Extremity Weight Bearing Status: 50% PWB Current Hospital Course: s/p R COTY Reason for Hospital Admission: Primary osteoarthritis of right hip Relevant Past Medical History: HTN, HLD, white coat syndrome, anxiety, obesity, fractures elbow with decreased ROM, 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 Teach back used throughout to ensure understanding of education. patient CGA with progression to SBA. patient did have the most difficulty with bed mobiltiy however still SBA however she plans on sleeping in a lift chair. patient initiallty states no steps however then notes 2 inch steps x 3 to enter, describes support from banister/door and unable to practice specific set up however able to demo safety on 1-2 in steps with walker and cane. patient verbalizes understanding of hip precautions and with teach back verbalizes understanding. At times tries to twist with car and bed however she will have assist and does not have bed to sleep in. rec home PT for safety assessment in her environment will give best carryover in PT opinion. Physical Therapy Problem List: Education Deficit, Pain, Edema, Safety Deficits, Impaired Self Care, Decreased Activity Tolerance, Decreased Range Of Motion, Decreased Strength, Balance Impaired, Functional Mobility Impairment Treatment Interventions: Education, Self Care / Home Management, Energy Conservation Training, Joint Mobility, Functional Mobility Training, Strengthening, Balance Training, Modalities, Edema Management, Pain Management Modalities: Ice Home Environment Patient Lives With: Self/Alone Assistance Available: PRN (one brother 5 miles away; one on same property) Entry To Home: Ramp Number Of Stairs To Bed/Bath: 0 Tub/Shower Type: combo; + shower bench. Reports, I prefer to use 70% alchohol. 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 Pt reports fear of shower transfers, reports use of rubbing alcohol with papertowels for bathing. Reports difficulty donning socks, using microwave meals. + driving, uses cane for ambulation, denies any falls in past 6 months. Reports has 30 cats, brother assists with taking care of cats and horses. sleeps in lift chair Subjective: patient agreeable to PT and cleared by RN. denies lightheadedness/dizzin ess/nausea. noted fatigue. CURRENT FUNCTIONAL STATUS: Most recent performance Current Funct (more content not included)... [facility] ALLIED HEALTHon 06-25-2023 ALLIED HEALTH HNO ID: [id number] Author: Tanya Martinez RT(R) Service: Radiology Author Type: Technologist Type: Allied Health Filed: 06/25/2023 10:43 AM Note Text: Radiology Service Progress Note PATIENT NAME: Mónica Decker DATE OF SERVICE: June 25, 2023 TIME: 10:42 AM PATIENT IDENTITY VERIFICATION COMPLETED USING TWO (2) IDENTIFIERS: Name and Date of confirmed by patient verbally. FALL SCREENING: Has the patient had 2 falls in the last year or 1 fall with injury or currently using an Ambulatory Assistive Device (Walker, Cane, Wheelchair, Crutches, etc.)? Inpatient: Screened on floor PATIENT GENDER DATA: Female. status: : No status: NO. PATIENT RELEVANT IMPLANT DATA REVIEWED: Not Applicable RADIOLOGY DEPARTMENT: General X-ray: Exam(s) Completed: Pelvis X-Ray: Pelvis General AP PERIPHERAL IV DATA: Not applicable SIGNED BY: RT Sky(R) June 25, 2023 10:42 AM [facility] ANES POSTPROC EVALon 023 ANES POSTPROC EVAL HNO ID: [id number] Author: Joseph Pool MD Service: Anesthesiology Author Type: Anesthesiologist Type: Anesthesia Postprocedure Evaluation Filed: 06/25/2023 10:25 AM Note Text: POST ANESTHESIA EVALUATION NOTE : 1950 Procedure Summary Date: 06/25/23 Room / Location: [facility] OR / [facility] OR Anesthesia Start: 731 Anesthesia Stop: 955 Procedure: ROBOTIC ASSISTED TOTAL HIP ARTHROPLASTY (Right: Hip) Diagnosis: Primary osteoarthritis of right hip (Primary osteoarthritis of right hip [M16.11]) Surgeons: Julio Cesar Deluna MD Responsible Provider: Joseph Pool MD Anesthesia Type: general ASA Status: 3 Anesthesia Type: general Airway Type: ETT Last Vitals Vitals Value Taken Time BP 170/83 06/25/23 1015 Temp 36.5 ?C (97.7 ?F) 06/25/23 0952 Pulse 65 06/25/23 1023 Resp 15 06/25/23 1023 SpO2 93 % 06/25/23 1023 Vitals shown include unvalidated device data. Post Anesthesia Patient Status Patient Evaluation: bedside. Anticipated Disposition: phase 2 then home. Neurological Status: aware and responsive. Pulmonary Status: breathing comfortably on room air Airway Control: returned to baseline unsupported. Cardiovascular Status: stable. Pain Management: clinically adequate Postoperative Hydration: acceptable. Intraoperative Events: no significant anesthesia events Post Operative Nausea/Vomiting Status: no significant post operative nausea or vomiting Recommendation: continue current plan of care. Anesthesia Observations No Documentation SIGNATURE: Joseph Pool MD PATIENT NAME: Mónica Decker DATE: June 25, 2023 TIME: 10:25 AM CSN: [id number] [facility] ANES PRE-OPon 06-25-2023 ANES PRE-OP HNO ID: [id number] Author: Joseph Pool MD Service: Anesthesiology Author Type: Anesthesiologist Type: Anesthesia Preprocedure Evaluation Filed: 06/25/2023 7:10 AM Note Text: ANESTHESIOLOGY DAY OF SURGERY NOTE : 1950 Procedure Information Date/Time: 06/25/23729 Procedure: ROBOTIC ASSISTED TOTAL HIP ARTHROPLASTY (Right: Hip) Location: [facility] OR / [place] OR Surgeons: Julio Cesar Deluna MD Estimated body mass index is 38.28 kg/m? as calculated from the following: Height as of this encounter: 152.4 cm (5'). Weight as of this encounter: 88.9 kg (196 lb). Most recent hematocrit and potassium results: Hematocrit 39.9 06/13/2023 Potassium 3.9 06/13/2023 Relevant Problems ANESTHESIA (+) SANDRA (obstructive sleep apnea) CARDIO (+) TARANGO (dyspnea on exertion) (+) Essential hypertension, benign ENDO (+) Postsurgical hypothyroidism NEURO-PSYCH (+) Personal history of colonic polyps PULMONARY (+) TARANGO (dyspnea on exertion) (+) SANDRA (obstructive sleep apnea) Other (+) 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 I - PHYSICAL EVALUATION AIRWAY Patient intubated: No. Tracheostomy tube not present Mallampati: II. TM distance: >3 FB. Neck ROM: full ROM without neurological symptoms. Mouth opening: adequate. Short neck: no. Thick neck: no Reilly present: no DENTAL Dental findings: missing tooth/teeth. Additional exam findings: yes. CARDIOVASCULAR Rhythm: regular Rate: normal PULMONARY Breath sounds clear to auscultation. II - ANESTHESIA PLAN ASA Score: 3 Anesthetic Plan: general Airway type: ETT The patient is not a current smoker. NPO Status: adequate Beta Sully Administration of chronic beta sully medication not planned. Monitoring Plan Monitoring plan: standard ASA. Post Procedure Analgesic Plan Postoperative analgesic plan: parenteral or oral opioids. Informed Consent Anesthetic risks, benefits, alternatives, personnel and consent discussed: yes. Patient / Responsible Democrat agrees to proceed: yes Patient / Surrogate agrees to blood products: Yes DNR status not reviewed with patient and/or family prior to surgery. Significant changes in the patient condition since the History and Physical, not otherwise documented in primary service progress note: no. Potential Anesthesia issues that may suggest increased risk of complications or contraindication to planned procedure: none. Vitals Value Taken Time BP 192/84 06/25/23 0630 Pulse Resp 22 06/25/23 0630 Temp 36.5 ?C (97.7 ?F) 06/25/23 0630 SpO2 96 % 06/25/23 0630 Facility-Administered Medications as of 06/25/2023 Medication Dose Route Frequency - lidocaine (PF) 10 mg/mL (1 %) 1-2 mg injection (XYLOCAINE) 0.1-0.2 mL INTRADERMAL PRN - lactated ringers iv infusion 5-30 mL/hr INTRAVENOUS CONTINUOUS - NaCl 0.9% iv flush bag 20 mL INTRAVENOUS PRN - ceFAZolin iv piggyback 2 g in D5W (iso-osmotic) 100 mL (ANCEF) 2 g INTRAVENOUS Pre-Op Once - tranexamic acid (CYKLOKAPRON) in NaCl 0.7% 1,000 mg 100 mL 1,000 mg INTRAVENOUS Pre-Op Once - tranexamic acid 1,000 mg in NaCl 0.9% 100 mL (CYKLOKAPRON) 1,000 mg INTRAVENOUS ONCE - [COMPLETED] acetaminophen 650 mg tab(s) (TYLENOL) 650 mg ORAL Pre-Op Once - [COMPLETED] celecoxib 200 mg cap(s) (CeleBREX) 200 mg ORAL Pre-Op Once - [COMPLETED] gabapentin 100 mg cap(s) (NEURONTIN) 100 mg ORAL Pre-Op Once - [COMPLETED] oxyCODONE ER 10 mg tab(s) (OxyCONTIN) 10 mg ORAL Pre-Op Once - scopolamine 1 mg over 3 days 1 Patch (TRANSDERM-SCOP) 1 Patch TRANSDERMAL Pre-Op Once Outpatient Medications as of 06/25/2023 Medication Sig - lisinopril (ZESTRIL) 10 mg tablet Take 1 tablet by mouth once daily. - levothyroxine (SYNTHROID) 137 mcg tablet Take 1 tablet by mouth once daily. - mometasone (ELOCON) 0.1 % cream Apply to areas twice a day. On for 4 days and off for 3 days. Repeat as needed. - cefADROxil (DURICEF) 500 mg capsule Take 1 capsule by mouth twice daily. (Patient not taking: Reported on 04/10/2023) - Lactobac no.41/Bifidobact no.7 (PROBIOTIC-10 ORAL) Take 1-2 tablets by mouth once daily. - peg 3350-Electrolytes (GOLYTELY) 236-22.74-6.74 -5.86 gram suspension Refer to printed prep instructions from your provider. - OTC PRODUCT Takes beet powder daily - cholecalciferol, vitamin D3, (VITAMIN D3 ORAL) Take 1 tablet by mouth once daily. - ascorbic acid (VITAMIN C ORAL) Take 1 tablet by mouth once daily. - COLLAGEN MISC 1 tablet once daily. Collagen blend + #2 - naproxen sodium 220 mg cap Take by mouth as directed. - omega-3 fatty acids 1,000 mg cap Take 1 capsule by mouth three times daily. - COENZYME Q10 60 MG CAP Take one(1) tablet daily. - multivitamins w-minerals(DAILY MULTIVITAMIN-MINERALS TAB) Take one(1) tablet daily. I have interviewed and examined the patient. I have reviewed the medical record and/or the pre-anesthesia evaluation, pertinent labs, and test results. This contains updated information obtai (more content not included)... [facility] CASE MANAGEMon 06-25-2023 CASE MANAGEM HNO ID: [id number] Author: Shannon Miles RN Service: ? Author Type: Registered Nurse Type: Care Mgt Progress Note Filed: 06/25/2023 2:59 PM Note Text: CARE MANAGEMENT PROGRESS NOTE SERVICE DATE: 06/25/2023 SERVICE TIME: 2:59 PM LOS: 0 days Needs Prior to Discharge: OT/PT Evaluation [facility] able to accept with a start of care on 06/27/23. CM department will continue to follow for DC needs. SIGNATURE: Shannon Miles RN PATIENT NAME: Mónica Decker DATE: June 25, 2023 TIME: 2:58 PM PAGER/CONTACT #: [phone] [facility] CASE MGT INIT [facility] 2022 CASE MGT INIT [facility] HNO ID: [id number] Author: Shannon Miles RN Service: ? Author Type: Registered Nurse Type: Care Mgt Initial Assessment Filed: 06/25/2023 2:33 PM Note Text: CARE MANAGEMENT: ASSESSMENT AND DISCHARGE PLAN SERVICE DATE: June 25, 2023 SERVICE TIME: 2:30 PM PCP: Mateo Marmolejo MD Primary Contact: Extended Emergency Contact Information Primary Emergency Contact: Gerson Decker Mobile Relation: Brother Admission Status: Ambulatory Surgery Insurance Provider: MEDICARE A AND B Discharge Planning requested by: Attending Provider Potential Transition Plans To Be Determined Advance Directives Current Advance Directive: None Administrative Assistant Coordinator Attempted to Assist with AD Completion: Yes Action: Patient Unwilling Current Living Arrangements and Support Lives with: Alone Type of Residence: Private Residence (House) Does the patient have to climb stairs at home?: No Support: Family members How do you manage to accomplish the following: Independent: Ambulation;Bathe/Showe r;Dress;Meals/Meal Prep;Going to the bathroom;Medication Management Current Services/Equipment Current Post-Acute Service(s): DME Current DME Type: Crutches, Cane, Walker, Other: See Comment (Lift Chair) Discharge Planning Patient Goal(s): Be able to go home [place] [facility] Choice Explained: [place] of Choice Given: Yes Level of Care Discussed: Home Care Are you interested in bedside delivery of your medications? Yes Discharge Planning Participant(s): Patient Patient/Family Comments: Caregiver Assessment: Caregiver is ready, willing and able to meet the patient's needs as recommended by the inter-professional team: Yes Name of Caregiver: Brother Transport at Discharge: Transportation Arrangements: Car Needs Prior to Discharge: Needs Prior to Discharge: To Be Determined;OT/PT Evaluation Post-Acute Discharge Plan: Review of the chart and spoke with the patient. The patient lives alone in a ranch home with a ramp to enter. The patient's brother comes over twice a day to help. PT- Pending. Discussed discharge planning with the patient. The patient stated she plans on returning home and would like Home PT. The patient had no preference on a [facility] agency. Referral placed to multiple [facility] agencies. department will continue to follow for DC needs. SIGNATURE: Shannon Miles RN PATIENT NAME: Mónica Decker DATE: June 25, 2023 TIME: 2:30 PM CONTACT #: [phone] [facility] 06-25-2023 [facility] HNO ID: [id number] Author: Vanessa Spear PA-C Service: Orthopaedic Surgery Author Type: Physician Miniature Set Builder Type: Discharge Summary Filed: 06/26/2023 10:31 AM Note Text: Attestation signed by Julio Cesar Deluna MD at 06/28/2023 9:44 AM I agree with the above discharge summary. Reviewed, authenticated, and electronically signed by Julio Cesar Deluna MD DISCHARGE SUMMARY PATIENT NAME: Mónica Decker ADMISSION DATE: 06/25/2023 DISCHARGE DATE: 06/26/2023 PATIENT DISCHARGE SUMMARY C O N F I D E N T I A L I N F O R M A T I O N The following is a brief overview of your hospitalization. Some of the information contained on this summary may be confidential. This information should be kept in your records and should be shared with your regular doctor. These instructions explain what you or your disabilities caregiver need to do to continue your care at home or at another healthcare facility Please go over these instructions with your nurse and disabilities caregiver. If you are not sure about something, please ask. --------- Highest Readmission Risk Score: 10 The 30 day readmissions risk score is derived from an internally validated risk model which evaluates patient level characteristics, utilization history, medication orders and lab results up until the day of discharge. Patients with a score of 40 or above are considered highest risk for readmission. Specific patient level drivers will be listed at the bottom of the summary. The 30 day readmissions risk score is derived from an internally validated risk model which evaluates patient level characteristics, utilization history, medication orders and lab results up until the day of discharge. Patients with a score of 40 or above are considered highest risk for readmission. Where I Will be Going after Discharge: Home with Home Health My Condition at Discharge: Stable PRINCIPAL DIAGNOSIS: (Reason after study for this admission): Procedure(s): ROBOTIC ASSISTED TOTAL HIP ARTHROPLASTY OTHER DIAGNOSES: Patient Active Hospital Problem List: No active hospital problems. OPERATIONS PERFORMED: Procedure(s): ROBOTIC ASSISTED TOTAL HIP ARTHROPLASTY My Doctors and Medical Team: My Main Hospital Doctor: Julio Cesar Garza MD PHYSICAL EXAM: See daily progress note Vitals: BP 120/56 Pulse 68 Temp 36.7 ?C (98.1 ?F) (Oral) Resp 18 Ht 152.4 cm (5') Wt 88.9 kg (196 lb) SpO2 100% BMI 38.28 kg/m? SUMMARY OF WHAT HAPPENED WHILE PATIENT WAS IN THE HOSPITAL: The patient was followed by Dr. Deluna in clinic for right hip osteoarthritis. It was determined the patient would benefit from right total hip arthroplasty. The procedure, its risks, benefits, and potential complications were discussed in detail prior to surgery. The patient conveyed understanding of all topics and consented to surgery. The patient was admitted to the hospital. Underwent an elective right total hip arthroplasty on 06/25/[address] Deluna. The patient tolerated the procedure well and was returned to the Post Anesthesia Care Unit in stable condition. Vital signs per PACU protocol. VTE risk assessment performed. O2 therapy monitored by Respiratory Therapy to include incentive spirometry, ADL, wound and support per physician order set postop protocol. PT and OT to evaluate and treat. IV antibiotics, antiemetics, aspirin for DVT prophylaxis and pain medication were given. The patient progressed with physical therapy. Lab values and vital signs were monitored and remained stable. The incision remained clean, dry and intact. Thigh and calf are not swollen. No signs of DVT or infection. The patient progressed with physical therapy towards goal of safety and independence. Patient was determined safe for discharge to home with home health care on 06/26/2023. TREATMENT / WOUND CARE: If you have any concerns about your wound, please contact the office. Keep wound and incision area clean and dry. You may remove your dressing on POD #7-10 (7 to 10 days after surgery). If it remains drainage-free, you may leave the dressing off, keeping the wound open to air. If there is any drainage please contact the office You may not submerge the wound under standing water for 6 weeks time after surgery (i.e. no baths, no hot tubs, no swimming pools). Do not rub the wound, but rather pat dry. If you have non-absorbable sutures in place, these will be taken out on your 1st follow-up appointment. Observe the wound for signs of infection, including increased redness, swelling, or persistent drainage around the incision site. It is normal for your wound to be warmer immediately after surgery (even up to 4-6 weeks af (more content not included)... Normal CONSULTon 06-25-2023 CONSULT HNO ID: [id number] Author: Byron Knight MD Service: General Internal Medicine Author Type: Physician Type: Consults Filed: 06/27/2023 1:04 PM Note Text: [facility]- Consultation MÓNICA DECKER : 1950 AGE: 73 SEX: F [id number]: [facility] LOCATION: [facility] ATTENDING PHYSICIAN: JULIO CESAR DELUNA DATE OF SERVICE: 06/25/2023 TIME OF SERVICE: 04:50 PM REASON FOR CONSULTATION: Postop medical management. HISTORY: This is a 73-year-old female with significant medical history includes osteoarthritis, hypertension, hypothyroidism, hyperlipidemia, obstructive sleep apnea, status post uvulectomy, overactive bladder, mild dyspnea with exertion. Patient underwent right total hip arthroplasty. . The patient had uneventful intraoperative course. Estimated blood loss 250 mL. During initial evaluation, the patient alert, oriented. No nausea, lightheaded, dizzy, shortness of breath. PAST MEDICAL HISTORY: As mentioned above. PAST SURGICAL HISTORY: Arthroscopic surgery, endoscopy, and thyroidectomy complete. FAMILY HISTORY: Father had heart disease and glaucoma. SOCIAL HISTORY: Does not smoke or drink. Currently, she quit smoking in 2011. MEDICATIONS: Current home medication list reviewed. ALLERGIES: See is allergic to latex. REVIEW OF SYSTEMS: HEENT/Neck: The patient denies any history of glaucoma, TIA, CVA, seizure disorder. No dysphagia, no odynophagia. Chest: No chronic cough. Wheezing. Does have mild dyspnea with exertion. History of obstructive sleep apnea, status post surgery and history of chronic bronchitis. Heart: History of hypertension, hyperlipidemia. No history of coronary artery disease, congestive heart failure, or cardiac arrhythmia. Abdomen: No history of bleeding, peptic ulcer disease, hepatitis, or colitis. Good appetite. Regular bowel movement. Genitourinary: No chronic dysuria, hematuria, CKD, renal calculi. Does have overactive bladder and urgency. Endocrine: No history of diabetes. History of hypothyroidism due to thyroidectomy. Vascular: No history of DVTs, paresthesia of feet, or bleeding diathesis. History of anxiety. PHYSICAL EXAM: General: Elderly white female. The patient is alert and oriented. Good carotid pulse felt. No carotid bruit. No thyromegaly. No lymphadenopathy of the neck. Lungs: Clear to auscultation bilaterally. Cardiovascular: S1, S2. Regular rhythm. Unable to appreciate murmur, gallop, or rub. Abdomen: Soft, nontender. Nondistended. No mass felt. Lower Extremities: No ankle edema noted. IMPRESSION: 1. Osteoarthritis, status post right total hip arthroplasty. DVT prophylaxis ordered by Dr. Deluna. 2. Hyperlipidemia. Continue Pravachol. 3. Hypertension. Continue Zestril and hydrochlorothiazide. 4. Hypothyroidism. Continue Synthroid. 5. Obstructive sleep apnea, status post surgery. 6. Hold other medications now. Thank you very much for kind referral. Continue to follow while she is in the hospital. Byron Knight M.D. Internal Medicine [id number] [facility] OPERATIVE NOon 06-25-2023 OPERATIVE NO HNO ID: [id number] Author: Julio Cesar Deluna MD Service: Orthopaedic Surgery Author Type: Physician Type: Operative Report Filed: 06/25/2023 9:42 AM Note Text: PATIENT NAME: Mónica Decker CSN: [id number] LOG ID: [id number] Surgery Date: 06/25/2023 Surgeon(s) and Miniature Set Builder(s): Herminio Lara NP - Applied Psychology Professor Surgeon(s) and Role: * Julio Cesar Deluna MD - Primary No qualified orthopedic resident was available-- 22 modifier --none BMI: Estimated body mass index is 38.28 kg/m? as calculated from the following: Height as of this encounter: 152.4 cm (5'). Weight as of this encounter: 88.9 kg (196 lb). Procedure(s): Procedure(s) (LRB): ROBOTIC ASSISTED TOTAL HIP ARTHROPLASTY (Right) Anesthesia: General Incision Start: 8:10 AM Incision Stop: 9:45 Am approx Attestation: I was present for and performed all critical portions of the case. assistant women's basketball coach was necessary for safe patient positioning, sterile prepping and draping, assistance, positioning and protection, soft tissue retraction, protection of vital structures and suture management during the case, and superficial wound closure. Also critical for safe transit to the recovery room in stable condition. Preop Diagnosis: Pre-Op Diagnosis Codes: * Primary osteoarthritis of right hip [M16.11] Postop Diagnosis: Same as Pre-Op Diagnosis Codes: * Primary osteoarthritis of right hip [M16.11] Implants: Trident II cup 52mm 25mm screw Neutral poly liner 4 accolade II 127 +0 36 head Problem List: ACTIVE PROBLEM LIST Sandra (Obstructive Sleep Apnea) Allergic Rhinitis Essential Hypertension, Benign Postsurgical Hypothyroidism Primary Osteoarthritis of Both Hips Primary Osteoarthritis of Both Knees Personal History of Colonic Polyps Hyperlipidemia, Mixed Medicare Annual Wellness Visit, Subsequent Elevated Hemoglobin A1c Screening for Colon Cancer Oab (Overactive Bladder) Hammer Toes of Both Feet Foot Callus Dystrophic Nail Acute Idiopathic Gout Involving Toe of Right Foot Obesity, Class II, Bmi 35-39.9 Advance Directive Discussed With Patient Dermatitis Bilateral Hip Pain [place] (Dyspnea On Exertion) OPERATIVE INDICATIONS: The patient has a history of progressive right hip pain and arthritis. Their hip pain is severe with activity and has progressed significantly over time . X-rays reveal [id number]-[id number] loss of articular cartilage of the hip with osteophytes consistent with advanced hip osteoarthritis. Non-operative treatment has been attempted, but is now ineffective at controlling symptoms during normal daily activities. Motion has become limited and rotation severely restricted. A total hip arthroplasty was recommended at this time. The risks, benefits and potential complications of the arthroplasty surgery were discussed with the patient in detail. Specific details of the procedure, hospitalization, recovery, rehabilitation, and long-term precautions were also provided. Pre-operative teaching was provided. Implant/prosthesis selection was outlined, and the many options available were explained; the final choice will be made at the time of the procedure to match the anatomy and condition of the bone, ligaments, tendons, and muscles. Understanding of all topics was conveyed to me by the patient, and consent was given to proceed with a right total hip arthroplasty. The patient was evaluated medically for pre-operative optimization. Carol-operative blood management and the potential for blood transfusion were discussed with risks and options clearly outlined. OPERATIVE PROCEDURE: The patient was identified and brought into the Operating Room by the anesthesia and nursing team. Satisfactoryl anesthesia was successfully performed. Intravenous antibiotic prophylaxis dosing was confirmed. The patient was then positioned in the lateral decubitus position with the assistance of a pegboard. An axillary roll was placed, and all other pressure points were checked and padded. The hip was then examined and restrictions noted. A relative leg length assessment was carried out. The leg was then prepped and draped in the usual sterile fashion. We reviewed the operative template according to the CT scan and navigation screen on the robotic device. We assessed an altered cup size and position, stem size and position, as well as possible areas of impingement in changes to her leg length and offset. Once satisfied we confirmed the plan is appropriate. A surgical time-out was performed immediately preceding the incision with all personnel in the operating room; the patient identity was again confirmed, the surgical site and extremity were identified and confirmed, X-rays were reviewed, and availability of the appropriate surgical equipment was established. 3 small poke incisions were made over the iliac crest. The 3 robotic array pins were placed individually, each via palpation, feeling th (more content not included)... Normal SURGICAL PATHOLOGYon 023 CASE REPORT Normal Comment on above: Order Comment: Speci men Type: SPECIMEN FROM BONEOrdering Facility: [facility] Address: [address] [place] [address] Result Comment: Surg ica Pathology Report Case: [id number] Authorizing Provider: Julio Cesar Deluna MD Collected: 06/25/2023 08:18 AM Ordering Location: Surgery Received: 06/25/2023 11:21 AM Pathologist: Violet Herring MD Specimen: FEMORAL HEAD RIGHT Performed By: #### S ####[facility]CL[facility] [id number] [address] [place] CLINICAL HISTORY Normal Comment on above: Order Comment: Valei isidro Type: SPECIMEN FROM BONEOrdering Facility: [facility] Address: [address] [place], [place] [id number] Result Comment: Pre- op diagnosis: Primary osteoarthritis of right hip [M16.11] Performed By: #### S ####[facility]CLIA [id number] [address] FINAL DIAGNOSIS [facility] Comment on above: Order Comment: Speci isidro Type: SPECIMEN FROM BONEOrdering Facility: [facility] Address: [address] [place], [place] [id number] Result Comment: Femo ral head, right, arthroplasty: - Degenerative joint disease. - Benign, noninflamed synovium. Performed By: #### S ####[facility] [id number] [address] [place] FINAL PERFORMING LAB Normal [facility] Comment on above: Order Comment: Speci men Type: SPECIMEN FROM BONEOrdering Facility: [facility] Address: [address] [place] [address] Result Comment: Diag nostic interpretation performed at [facility], [address] [place] [address] CLIA# [id number] House Calls Nurse Practitioner: Hamilton Tenorio M.D. Performed By: #### S ####[facility] [id number] [address] OF [facility] GROSS DESCRIPTION Normal Comment on above: Order Comment: Speci men Type: SPECIMEN FROM BONEOrdering Facility: [facility] Address: [address] [place] [address] Result Comment: A. F EMORAL HEAD RIGHT Received in formalin femoral head right is a portion of femoral head with neck which measures approximately by 4.8 x 4.7 cm. Examination of the articular surface reveals eburnation and cartilage roughening. Osteophyte formation is identified. There is minimal attached soft tissue which is grossly unremarkable. Sectioning does not reveal avascular necrosis grossly. Tight Rope Walker sections are submitted as follows: A1 soft tissue, A2 articular surface, A3 nonarticular surface (A2-A3 submitted after decalcification). BF June 25, 2023 3:30 PM Gross examination performed at [facility], [address] [place] [address] Performed By: #### S ####[facility] LABCLIA [id number] [place] [address] [place] THERAPY NTon 06-25-2023 THERAPY NT HNO ID: [id number] Author: Ramiro Rangel PT Service: Physical Therapy Author Type: Physical Therapist Type: Therapy (PT/OT/Speech/Resp) Filed: 06/25/2023 5:15 PM Note Text: Physical Therapy Evaluation SERVICE DATE: 06/25/2023 SERVICE TIME: 1535 to 1617 ROOM: [place] [address] Total Joint Replacement Discharge Readiness: Pending Physical Therapy Clearance Recommended Discharge Disposition: Subacute/SNF (likely to progress) Recommended Discharge Disposition Comments: Pt currently functioning below baseline s/p R COTY with increased pain, post-op edema, decreased RLE ROM, decreased RLE strength, impaired activity tolerance, impaired balance, and overall decreased functional mobility requiring continued skilled services post acute stay to address deficits Recommended Discharge Disposition Due to: Patient requires daily, facility-based rehabilitation from at least one discipline due to:, ADL impairment resulting in caregiver dependence, anticipate community discharge/previous community dweller, decline in functional status requiring daily skilled care, deficits affecting dominant side, deficits affecting non-dominant side, ongoing intervention of multiple therapy disciplines Anticipated Discharge Needs: Physical Assist at Home, Supervision at Home Physical Assist at Home for: Cleaning, Laundry, Meals, Transportation, Shopping, Self Care Supervision at Home due to: Decreased safety awareness Recommended Discharge Equipment: No equipment needs anticipated PT 6 Clicks Score: 17 Precautions/Activity Restrictions: Posterior Hip Precautions, Fall Risk, Lines/Tubes/Drains, Weight Bearing Restrictions Extremity With Weight Bearing Restricted: Right Lower Extremity Right Lower Extremity Weight Bearing Status: 50% PWB Current Hospital Course: s/p R COTY Reason for Hospital Admission: Primary osteoarthritis of right hip Relevant Past Medical History: HTN, HLD obesity Response to Therapy Interventions: Good Participation in Activities, Improved Tolerance for Activity, On-Track to Achieve Discharge Goals, Pain, Requires Additional Time to Complete Activities Assessment Comments: Likely to progress to Home PT with additional session Continued Skilled Needs Due to: Family Training Required, Functional Mobility/Skill Impairments, Safety Concerns Physical Therapy Problem List: Education Deficit, Pain, Edema, Safety Deficits, Impaired Self Care, Decreased Activity Tolerance, Decreased Range Of Motion, Decreased Strength, Balance Impaired, Functional Mobility Impairment Treatment Interventions: Education, Self Care / Home Management, Energy Conservation Training, Joint Mobility, Functional Mobility Training, Strengthening, Balance Training, Modalities, Edema Management, Pain Management Modalities: Ice Plan for Next Visit: Bed Mobility, Chair Transfer Training, Car Transfer Training, Gait Training, Exercise Instruction/Handout, Standing Tolerance, Walker Training, Standing Balance Home Environment Patient Lives With: Self/Alone Assistance Available: Part-Time (Brother Sameer) Entry To Home: Ramp Number Of Stairs To Bed/Bath: 0 Tub/Shower Type: combo; + shower bench. Reports, I prefer to use 70% alchohol. 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 Pt reports fear of shower transfers, reports use of rubbing alcohol with papertowels for bathing. Reports difficulty donning socks, using microwave meals. + driving, uses cane for ambulation, denies any falls in past 6 months. Reports has 30 cats, brother assists with taking care of cats. Subjective: Pt reports, I think they went in a cleaned out my socket. My family has been pressuring me to get this surgery done so I don't end up in a wheelchair. Pt states, I have to get home. I have 30 cats. Agreeable to PT, cleared with RN CURRENT FUNCTIONAL STATUS: Most recent performance Current Functional Mobility Assist Level Additional Information Rolling Supine to Sit Minimal Assistance Sit to Supine Additional Information OOB in bedside chair at session end Scooting Moderate Assistance, Additional Information fwd at EOB with use of drawpad Sit to Stand Minimal Assistance Stand to Sit Minimal Assistance Bed to Chair Minimal Assistance Bed To Chair Transfer Type: Stepping Bed To Chair Transfer Equipment: Wheeled Walker, Gait Belt Toilet/Commode Gait Minimal Assistance, Additional Information Gait Device: Wheeled Walker Gait Distance (feet): 1 X 5 fwd/retro Follows cues appropraitely for step-to pattern in FWW Stairs Curb Step Car Transfer Blank fie (more content not included)... Normal XR PELVIS 1V APon 06-25-2023 XR PELVIS 1V AP * * *Final Report* * * DATE OF EXAM: Jun 25 2023 10:40AM MDX 5239 - XR PELVIS 1V AP / PROCEDURE REASON: Post-operative / post-procedure assessment, asymptomatic * * * * Physician Interpretation * * * * EXAM: XR PELVIS 1V AP HISTORY: Post-operative / post-procedure assessment, asymptomatic. Right COTY. VIEWS: Portable AP Pelvis at 1026 hours. FINDINGS: Status post noncemented right total hip arthroplasty with acetabular screw. Alignment appears satisfactory. There is post operative soft tissue emphysema. Advanced left hip arthrosis and flattening of the left femoral head. IMPRESSION: Postoperative right hip. Credit Control Assistant: JONNY Transcribe Date/Time: Jun 25 2023 11:28A Dictated by : Mary WILD MD This examination was interpreted and the report reviewed and electronically signed by: Mary WILD MD on Jun 25 2023 11:31AM EST [id number] [facility] CBC W Auto Differential pane l (Bld)on 06-13-2023 Basophils (Bld) [#/Vol] 0.05 10*3/uL <0.11 k/uL [facility] Basophils/100 WBC (Bld) 0.8 % [facility] Differential cell count method Nom (Bld) Auto [facility] Eosinophils (Bld) [#/Vol] 0.15 10*3/uL <0.46 k/uL [facility] Eosinophils/100 WBC (Bld) 2.5 % [facility] Erythrocyte distribution width (RBC) [Ratio] 12.2 % 11.5 - 15.0 % [facility] Hematocrit (Bld) [Volume fraction] 39.9 % 36.0 - 46.0 % [facility] Hemoglobin (Bld) [Mass/Vol] 13.7 g/dL 11.5 - 15.5 g/dL [facility] Immature granulocytes (Bld) [#/Vol] <0.10 k/uL [facility] Immature granulocytes/100 WBC (Bld) 0.3 % [facility] Lymphocytes (Bld) [#/Vol] 1.09 10*3/uL 1.00 - 4.00 k/uL [facility] Lymphocytes/100 WBC (Bld) 18.4 % [facility] MCH (RBC) [Entitic mass] 30.6 pg 26. 0 - 34.0 pg [facility] MCHC (RBC) [Mass/Vol] 34.3 g/dL 30.5 - 36.0 g/dL [facility] MCV (RBC) [Entitic vol] 89.1 fL 80.0 - 100.0 fL [facility] Monocytes (Bld) [#/Vol] 0.36 10*3/uL <0.87 k/uL [facility] Monocytes/100 WBC (Bld) 6.1 % [facility] Neutrophils (Bld) [#/Vol] 4.25 10*3/uL 1.45 - 7.50 k/uL [facility] Neutrophils/100 WBC (Bld) 71.9 % [facility] Nucleated RBC (Bld) [#/Vol] <0.01 k/uL [facility] Nucleated RBC/100 WBC (Bld) [Ratio] 0.0 /100 WBC [facility] Platelet mean volume (Bld) [Entitic vol] 9.3 fL 9.0 - 12.7 fL [facility] Platelets (Bld) [#/Vol] 214 10*3/uL 150 - 400 k/uL [facility] RBC (Bld) [#/Vol] 4.48 10*6/uL 3.90 - 5.2 0 m/uL [facility] WBC (Bld) [#/Vol] 5.92 10*3/uL 3.70 - 11. 00 k/uL [facility] Comprehensive metabolic 2000 panelon 06-13-2023 Albumin [Mass/Vol] 4.4 g/dL 3.9 - 4.9 g/dL [facility] ALP [Catalytic activity/Vol] 78 U/L 34 - 123 U/L [facility] ALT [Catalytic activity/Vol] 15 U/L 7 - 38 U/L [facility] Anion gap [Moles/Vol] 12 mmol/L 9 - 18 mmol/L [facility] AST [Catalytic activity/Vol] 20 U/L 13 - 35 U/L [facility] Bilirubin [Mass/Vol] 1.0 mg/dL 0.2 - 1 .3 mg/dL [facility] Calcium [Mass/Vol] 9.8 mg/dL 8.5 - 10. 2 mg/dL [facility] Chloride [Moles/Vol] 103 mmol/L 97 - 10 5 mmol/L [facility] CO2 [Moles/Vol] 21 mmol/L Low 22 - 30 mmol/L [facility] Creatinine [Mass/Vol] 0.76 mg/dL 0.58 - 0.96 mg/dL [facility] Estimated Glomerular Filtration Rate 82 mL/min/1.73m >=60 mL/min/1.73m [facility] Glucose [Mass/Vol] 102 mg/dL High 74 - 99 mg/dL [facility] Potassium [Moles/Vol] 3.9 mmol/L 3.7 - 5.1 mmol/L [facility] Protein [Mass/Vol] 6.6 g/dL 6.3 - 8.0 g/dL [facility] Sodium [Moles/Vol] 136 mmol/L 136 - 144 mmol/L [facility] Urea nitrogen [Mass/Vol] 19 mg/dL 7 - 21 mg/d L [facility] CNPNon 06-10-2023 CNPN Telephone (MI2E) MÓNICA DECKER ([id number]) 1950 F NFR Date Time Provider Department 06/10/23 JULIO CEASR DELUNA MI2E During your visit today, we recorded the following information about you: Lazaro Stephens PSS 06/10/2023 11:05 AM Signed TOTAL JOINT COMPLETE CARE PROGRAM PRE-OPERATIVE TEACHING Service Date: 06/10/2023 Service Time: 11:05 AM Date of : 1950 Gender: female Date of Surgery: 06/25/23 Procedure: Right Total Hip Replacement Complete 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 Pt owns cane been using for last few years, walkers, crutches, getting raised toilet seat. Plans to get lift chair. Discussed with patient importance of attending joint education class and provided date and times of class: YES declined. Patient received Joint Education Binder: Yes Patient plans discharge with [facility]. SIGNATURE: ERIC Kelsey PATIENT NAME: Mónica Decker DATE: June 10, 2023 TIME: 10:51 AM Allergies As of Date: 06/10/2023 Noted Allergy Reaction LATEX 03/07/2021 16 - Unknown Date Reviewed: 04/10/2023 Reviewed by: Julio Cesar Deluna MD - Fully Assessed Reason for Visit: Pre-Op Teaching [134] Prescriptions as of 06/10/2023 - pravastatin (PRAVACHOL) 10 mg tablet TAKE 1 TABLET BY MOUTH EVERY DAY - lisinopril (ZESTRIL) 10 mg tablet Take 1 tablet by mouth once daily. - levothyroxine (SYNTHROID) 137 mcg tablet Take 1 tablet by mouth once daily. - hydroCHLOROthiazide 25 mg tablet Take 1 tablet by mouth once daily. - mometasone (ELOCON) 0.1 % cream Apply to areas twice a day. On for 4 days and off for 3 days. Repeat as needed. - cefADROxil (DURICEF) 500 mg capsule Take 1 capsule by mouth twice daily. - Lactobac no.41/Bifidobact no.7 (PROBIOTIC-10 ORAL) Take 1-2 tablets by mouth once daily. - peg 3350-Electrolytes (GOLYTELY) 236-22.74-6.74 -5.86 gram suspension Refer to printed prep instructions from your provider. - OTC PRODUCT Takes beet powder daily - cholecalciferol, vitamin D3, (VITAMIN D3 ORAL) Take 1 tablet by mouth once daily. - ascorbic acid (VITAMIN C ORAL) Take 1 tablet by mouth once daily. - COLLAGEN MISC 1 tablet once daily. Collagen blend + #2 - naproxen sodium 220 mg cap Take by mouth as directed. - omega-3 fatty acids 1,000 mg cap Take 1 capsule by mouth three times daily. - COENZYME Q10 60 MG CAP Take one(1) tablet daily. - multivitamins w-minerals(DAILY MULTIVITAMIN-MINERALS TAB) Take one(1) tablet daily. Problem List As Of Date 06/10/2023 Noted Resolved SANDRA (obstructive sleep apnea) [G47.33] 07/08/2005 Allergic rhinitis [J30.9] 07/08/2005 Essential hypertension, benign [I10] 07/08/2005 NONTOX NODUL GOITER NOS [E04.9] 07/08/2005 09/04/2005 Postsurgical hypothyroidism [E89.0] 09/04/2005 Primary osteoarthritis of both hips [M16.0] 06/20/2015 Primary osteoarthritis of both knees [M17.0] 06/20/2015 Personal history of colonic polyps [Z86.010] 03/14/2016 Hyperlipidemia, mixed [E78.2] 02/05/2018 Medicare annual wellness visit, subsequent [Z00*08/27/2018 Well adult exam [Z00.00] 08/27/2018 03/25/2020 Elevated hemoglobin A1c [R73.09] 08/27/2018 Screening for colon cancer [Z12.11] 08/27/2018 OAB (overactive bladder) [N32.81] 12/19/2020 Hammer toes of both feet [M20.41, M20.42] 01/24/2021 Foot callus [L84] 01/24/2021 Dystrophic nail [L60.3] 01/24/2021 Acute idiopathic gout involving toe of right fo*01/24/2021 Obesity, Class II, BMI 35-39.9 [E66.9] 02/19/2021 Advance directive discussed with patient [Z71.8*02/14/2022 Dermatitis [L30.9] 01/09/2023 Bilateral hip pain [M25.551, M25.552] 06/05/2023 Encounter Status:Closed by LAZARO STEPHENS on 06/10/[address] [facility] [address] HIP WO IVCON RIGHTon 08-0 [facility] CT HIP WO IVCON RTon 023 CT HIP WO IVCON RT * * *Final Report* * * DATE OF EXAM: Jun 02 2023 3:06PM [facility] [place] WO IVCON RT / PROCEDURE REASON: Z96.641-Presence of right artificial hip joint * * * * Physician Interpretation * * * * EXAM: CT HIP WO IVCON RT HISTORY: Presence of right artificial hip joint. Hip osteoarthritis. Preoperative planning TECHNIQUE: CT right hip without contrast ([facility] CT protocol) CT Radiation dose: Integrated Dose-length product (DLP) for this visit = 1046 mGy*cm. CT Dose Reduction Employed: Iterative recon and mAs-kVp adjusted using patient size-age COMPARISON: FINDINGS: Advanced bilateral hip osteoarthrosis with femoral head flattening and opposing subchondral sclerosis and cystic change. Advanced bilateral knee osteoarthrosis with trace pleural effusions. . IMPRESSION: Right hip osteoarthritis, preoperative [facility] CT protocol for robotic assisted total joint replacement. Credit Control Assistant: JONNY Transcribe Date/Time: Jun 02 2023 3:18P Dictated by : BERNARDO STEINBERG MD This examination was interpreted and the report reviewed and electronically signed by: BERNAROD STEINBERG MD on Jun 02 2023 3:19PM EST [id number] Normal XR HIP GENERAL 3V PELV/AP/LA T RIGHTon 02-20-2023 [facility] Urinalysis complete panel (U )on 02-14-2022 Bilirubin Ql (U) Negative Negative [facility] Clarity (Unsp spec) Slightly Cloudy Abnormal Clear [facility] Color (U) Yellow Yellow [facility] Epithelial cells LM.HPF (Urine sed) [#/Area] Few [facility] Glucose Test strip (U) [Mass/Vol] Negative Negative [facility] Hemoglobin Ql (U) Negative Negative [facility] Ketones Ql (U) Negative Negative [facility] Leukocyte esterase Test strip Ql (U) Trace Abnormal Negative [facility] Nitrite Ql (U) Negative Negative [facility] pH (U) 6.0 [pH] 5.0 - 8.0 [facility] Protein (U) [Mass/Vol] Negative Negative [facility] RBC LM.HPF (Urine sed) [#/Area] 0-3 /HPF 0-3 /HPF [facility] Specific gravity (U) [Rel density] 1.018 1.005 - 1.030 [facility] Urobilinogen Ql (U) Negative Negative [facility] WBC LM.HPF (Urine sed) [#/Area] 0-5 /HPF 0-5 /HPF [facility] IOL BIOMETRY W/ IOL CALC OU (BOTH EYES) [facility] Vital Signs Date Time Vital Sign Value Performing Clinician Facility 07-13-2025 11:18-0400 Body mass index (BMI) [Ratio] 29.45 kg/m2 Sarah Ying MD Work Phone: [facility] 07-13-2025 11:18-040 Body weight 68.4 kg Sarah Ying MD Work Phone: [facility] 07-13-2025 11:18-0400 Diastolic blood pressure 56 mm[Hg] Sarah Ying MD Work Phone: [facility] 07-13-2025 11:18-0400 Heart rate 59 /min Sarah Ying MD Work Phone: [facility] 07-13-2025 11:18-0400 Respiratory rate 16 /min Sarah Ying MD Work Phone: [facility] 07-13-2025 11:18-0400 Systolic blood pressure 91 mm[Hg] Sarah Ying MD Work Phone: [facility] 07-11-2025 11:33-0400 Body height 150 cm Vanessa Albrecht MD Work Phone: [facility] [employer] [facility] 07-11-2025 11:33-0400 Body height 149.86 cm Vanessa Albrecht MD Work Phone: [facility] [employer] [facility] 07-11-2025 11:33-0400 Body mass index (BMI) [Ratio] 31.01 kg/m2 Vanessa Albrecht MD Work Phone: [facility] [employer] [facility] 07-11-2025 11:33-0400 Body weight 70 kg Vanessa Albrecht MD Work Phone: [facility] [employer] [facility] 07-11-2025 11:33-0400 Body weight 69.4 kg Vanessa Albrecht MD Work Phone: [facility] [employer] [facility] 07-11-2025 11:33-0400 BP SITE #1 Vanessa Albrecht MD Work Phone: [facility] [employer] [facility] 07-11-2025 11:33-0400 Diastolic blood pressure 68 mm[Hg] Vanessa Albrecht MD Work Phone: [facility] [employer] [facility] 07-11-2025 11:33-0400 Heart rate 61 /min Vanessa Albrecht MD Work Phone: [facility] [employer] [facility] 07-11-2025 11:33-0400 HGHTCHNVIS Vanessa Albrecht MD Work Phone: [facility] [employer] [facility] 07-11-2025 11:33-0400 Systolic blood pressure 104 mm[Hg] Vanessa Albrecht MD Work Phone: [facility] [employer] [facility] 07-11-2025 11:33-0400 VITALSDONE Vanessa Albrecht MD Work Phone: [facility] [employer] [facility] 07-08-2025 10:47-0400 Body temperature 97 [degF] Dr. Mateo Marmolejo MD Work Phone: 1(221)155-346852 [place] [address] 07-08-2025 10:47-0400 Diastolic blood pressure 75 mm[Hg] Dr. Mateo Marmolejo MD Work Phone: 5(625)143-398421 [place] [address] 07-08-2025 10:47-0400 Heart rate 83 /min Dr. Mateo Marmolejo MD Work Phone: 2(476)733-351721 [place] [address] 07-08-2025 10:47-0400 Respiratory rate 18 /min Dr. Mateo Marmolejo MD Work Phone: 6(694)926-276021 [place] [address] 07-08-2025 10:47-0400 Systolic blood pressure 125 mm[Hg] Dr. Mateo Marmolejo MD Work Phone: 7(194)404-493621 [place] [address] 06-10-2025 10:22-0400 Body temperature 98.2 [degF] Dr. Mateo Marmolejo MD Work Phone: 9(880)551-617721 [place] [address] 06-10-2025 10:22-0400 Diastolic blood pressure 68 mm[Hg] Dr. Mateo Marmolejo MD Work Phone: 7(895)000-083052 [place] [address] 06-10-2025 10:22-0400 Heart rate 78 /min Dr. Mateo Marmolejo MD Work Phone: 0(165)279-441952 [place] [address] 06-10-2025 10:22-0400 Respiratory rate 16 /min Dr. Mateo Marmolejo MD Work Phone: 2(968)757-179852 [place] [address] 06-10-2025 10:22-0400 Systolic blood pressure 101 mm[Hg] Dr. Mateo Marmolejo MD Work Phone: 2(840)021-736921 [place] [address] 05-13-2025 10:57-0400 Body temperature 97.4 [degF] Dr. Mateo Marmolejo MD Work Phone: 7(900)861-935821 [place] [address] 05-13-2025 10:57-0400 Diastolic blood pressure 64 mm[Hg] Dr. Mateo Marmolejo MD Work Phone: 5(259)650-247021 [place] [address] 05-13-2025 10:57-0400 Heart rate 70 /min Dr. Mateo Marmolejo MD Work Phone: 8(230)310-066021 [place] [address] 05-13-2025 10:57-0400 Respiratory rate 18 /min Dr. Mateo Marmolejo MD Work Phone: 9(575)274-995721 [place] [address] 05-13-2025 10:57-0400 Systolic blood pressure 117 mm[Hg] Dr. Mateo Marmolejo MD Work Phone: 7(628)137-185921 [place] [address] 05-04-2025 09:47-0400 Body height 152.[address] Mateo Marmolejo MD Work Phone: 8(034)559-611121 [place] [address] 05-04-2025 09:41-0400 Body mass index (BMI) [Ratio] 31.6 kg/m2 Dr. Mateo Marmolejo MD Work Phone: 2(216)425-597521 [place] [address] 05-04-2025 09:41-0400 Body weight 73.[address] Mateo Marmolejo MD Work Phone: 9(170)840-526821 [place] [address] 05-04-2025 09:41-0400 Diastolic blood pressure 70 mm[Hg] Dr. Mateo Marmolejo MD Work Phone: 9(636)102-783221 [place] [address] 05-04-2025 09:41-0400 Systolic blood pressure 117 mm[Hg] Dr. Mateo Marmolejo MD Work Phone: 9(295)792-497321 [place] [address] 05-02-2025 09:51-0400 Body temperature 98.2 [degF] Dr. Mateo Marmolejo MD Work Phone: 7(452)416-532521 [place] [address] 05-02-2025 09:51-0400 Diastolic blood pressure 68 mm[Hg] Dr. Mateo Marmolejo MD Work Phone: 8(855)177-435321 [place] [address] 05-02-2025 09:51-0400 Heart rate 59 /min Dr. Mateo Marmolejo MD Work Phone: 1(712)256-061021 [place] [address] 05-02-2025 09:51-0400 Respiratory rate 18 /min Dr. Mateo Marmolejo MD Work Phone: 7(474)833-901221 [place] [address] 05-02-2025 09:51-0400 Systolic blood pressure 120 mm[Hg] Dr. Mateo Marmolejo MD Work Phone: 4(820)911-377721 [place] [address] 04-21-2025 15:00-0400 Body height 152.[address] Mateo Marmolejo MD Work Phone: 0(245)705-361521 [place] [address] 04-21-2025 14:53-0400 Body mass index (BMI) [Ratio] 30.9 kg/m2 Dr. Mateo Marmolejo MD Work Phone: 5(981)332-754321 [place] [address] 04-21-2025 14:53-0400 Body weight 71.[address] Mateo Marmolejo MD Work Phone: 6(939)389-570821 [place] [address] 04-21-2025 14:53-0400 Diastolic blood pressure 72 mm[Hg] Dr. Mateo Marmolejo MD Work Phone: 2(425)018-772521 [place] [address] 04-21-2025 14:53-0400 Systolic blood pressure 134 mm[Hg] Dr. Mateo Marmolejo MD Work Phone: 3(145)160-727621 [place] [address] 04-18-2025 09:30-0400 Body temperature 97.6 [degF] Dr. Mateo Marmolejo MD Work Phone: 0(783)542-042021 [place] [address] 04-18-2025 09:30-0400 Diastolic blood pressure 61 mm[Hg] Dr. Mateo Marmolejo MD Work Phone: 8(369)455-603021 [place] [address] 04-18-2025 09:30-0400 Heart rate 64 /min Dr. Mateo Marmolejo MD Work Phone: 8(899)113-573921 [place] [address] 04-18-2025 09:30-0400 Respiratory rate 18 /min Dr. Mateo Marmolejo MD Work Phone: 9(111)853-194721 [place] [address] 04-18-2025 09:30-0400 Systolic blood pressure 119 mm[Hg] Dr. Mateo Marmolejo MD Work Phone: [facility] 04-06-2025 11:47-0400 Body mass index (BMI) [Ratio] 31.44 kg/m2 Sarah Ying MD Work Phone: [facility] 04-06-2025 11:47-0400 Body weight 73.03 kg Sarah Ying MD Work Phone: [facility] 04-06-2025 11:47-0400 Diastolic blood pressure 68 mm[Hg] Sarah Ying MD Work Phone: [facility] 04-06-2025 11:47-0400 Heart rate 64 /min Sarah Ying MD Work Phone: [facility] 04-06-2025 11:47-0400 Respiratory rate 14 /min Sarah Ying MD Work Phone: [facility] 04-06-2025 11:47-0400 SaO2% (BldA) [Mass fraction] 98 % Sarah Ying MD Work Phone: [facility] 04-06-2025 11:47-0400 Systolic blood pressure 130 mm[Hg] Sarah Ying MD Work Phone: [facility] 04-01-2025 11:01-0400 Diastolic blood pressure 73 mm[Hg] Dr. Mateo Marmolejo MD Work Phone: [facility] 04-01-2025 11:01-0400 Heart rate 66 /min Dr. Mateo Marmolejo MD Work Phone: [facility] 04-01-2025 11:01-0400 Respiratory rate 18 /min Dr. Mateo Marmolejo MD Work Phone: [facility] 04-01-2025 11:01-0400 SaO2% (BldA) [Mass fraction] 98 % Dr. Mateo Marmolejo MD Work Phone: [facility] 04-01-2025 11:01-0400 Systolic blood pressure 123 mm[Hg] Dr. Mateo Marmolejo MD Work Phone: [facility] 02-01-2025 13:47-0400 Body temperature 98.8 [degF] Sendy Haagen REAL ESTATE DEVELOPER.FINISHING TUNNEL OPERATOR Work Phone: [facility] 02-01-2025 13:47-0400 Diastolic blood pressure 70 mm[Hg] Sendy Haagen REAL ESTATE DEVELOPER.FINISHING TUNNEL OPERATOR Work Phone: [facility] 02-01-2025 13:47-0400 Heart rate 71 /min Sendy Haagen REAL ESTATE DEVELOPER.FINISHING TUNNEL OPERATOR Work Phone: [facility] 02-01-2025 13:47-0400 Respiratory rate 16 /min Sendy Haagen REAL ESTATE DEVELOPER.FINISHING TUNNEL OPERATOR Work Phone: [facility] 02-01-2025 13:47-0400 SaO2% (BldA) [Mass fraction] 97 % Sendy Haagen REAL ESTATE DEVELOPER.FINISHING TUNNEL OPERATOR Work Phone: [facility] 02-01-2025 13:47-0400 Systolic blood pressure 122 mm[Hg] Sendy Haagen REAL ESTATE DEVELOPER.FINISHING TUNNEL OPERATOR Work Phone: [facility] 01-31-2025 09:25-0400 Body height 152.[address] Mateo Marmolejo MD Work Phone: [facility] 01-31-2025 09:25-0400 Body mass index (BMI) [Ratio] 32.3 kg/m2 Dr. Mateo Marmolejo MD Work Phone: [facility] 01-31-2025 09:25-0400 Body weight 74.[address] Mateo Marmolejo MD Work Phone: [facility] 01-31-2025 09:25-0400 Diastolic blood pressure 69 mm[Hg] Dr. Mateo Marmolejo MD Work Phone: [facility] 01-31-2025 09:25-0400 Systolic blood pressure 125 mm[Hg] Dr. Mateo Marmolejo MD Work Phone: 4(225)195-140552 [place] [address] 01-18-2025 12:10-0400 Body temperature 97.3 [degF] Dr. Mateo Marmolejo MD Work Phone: 6(933)148-576921 [place] [address] 01-18-2025 12:10-0400 Diastolic blood pressure 50 mm[Hg] Dr. Mateo Marmolejo MD Work Phone: 6(768)280-715221 [place] [address] 01-18-2025 12:10-0400 Heart rate 50 /min Dr. Mateo Marmolejo MD Work Phone: 8(640)862-076521 [place] [address] 01-18-2025 12:10-0400 Respiratory rate 16 /min Dr. Mateo Marmolejo MD Work Phone: 7(084)709-534221 [place] [address] 01-18-2025 12:10-0400 SaO2% (BldA) [Mass fraction] 99 % Dr. Mateo Marmolejo MD Work Phone: 1(725)481-952721 [place] [address] 01-18-2025 12:10-0400 Systolic blood pressure 95 mm[Hg] Dr. Mateo Marmolejo MD Work Phone: 2(600)999-222121 [place] [address] 01-18-2025 08:36-0400 Body height 152.[address] Mateo Marmolejo MD Work Phone: 6(900)043-854321 [place] [address] 01-18-2025 08:36-0400 Body mass index (BMI) [Ratio] 31.4 kg/m2 Dr. Mateo Marmolejo MD Work Phone: 6(351)532-141021 [place] [address] 01-18-2025 08:36-0400 Body weight [address] Mateo Marmolejo MD Work Phone: 2(477)580-378152 [place] [address] 01-07-2025 10:25-0400 Body mass index (BMI) [Ratio] 32.29 kg/m2 Ramiro Dominguez APRN.FINISHING TUNNEL OPERATOR Work Phone: [facility] 01-07-2025 10:25-0400 Body weight 75 kg Ramiro Dominguez APRN.FINISHING TUNNEL OPERATOR Work Phone: [facility] 01-07-2025 10:25-0400 Diastolic blood pressure 75 mm[Hg] Ramiro Dominguez APRN.FINISHING TUNNEL OPERATOR Work Phone: 8(305)396-431081 [place] [address] 01-07-2025 10:25-0400 Heart rate 64 /min Ramiro Dominguez APRN.FINISHING TUNNEL OPERATOR Work Phone: [facility] 01-07-2025 10:25-0400 Systolic blood pressure 133 mm[Hg] Ramiro Dominguez APRN.FINISHING TUNNEL OPERATOR Work Phone: [facility] 12-29-2024 11:26-0500 Body height 152.4 cm Sarah Ying MD Work Phone: [facility] 12-29-2024 11:26-0500 Body mass index (BMI) [Ratio] 33.67 kg/m2 Sarah Ying MD Work Phone: [facility] 12-29-2024 11:26-0500 Body weight 78.2 kg Sarah Ying MD Work Phone: [facility] 12-29-2024 11:26-0500 Diastolic blood pressure 64 mm[Hg] Sarah Ying MD Work Phone: [facility] 12-29-2024 11:26-0500 Heart rate 81 /min Sarah Ying MD Work Phone: [facility] 12-29-2024 11:26-0500 SaO2% (BldA) [Mass fraction] 98 % Sarah Ying MD Work Phone: [facility] 12-29-2024 11:26-0500 Systolic blood pressure 132 mm[Hg] Sarah Ying MD Work Phone: [facility] 12-10-2024 09:12-0500 Body mass index (BMI) [Ratio] 33.2 kg/m2 Dr. Mateo Marmolejo MD Work Phone: [facility] 12-10-2024 09:12-0500 Body weight 77.[address] Mateo Marmolejo MD Work Phone: [facility] 12-10-2024 09:12-0500 Diastolic blood pressure 62 mm[Hg] Dr. Mateo Marmolejo MD Work Phone: [facility] 12-10-2024 09:12-0500 Systolic blood pressure 112 mm[Hg] Dr. Mateo Marmolejo MD Work Phone: 8(465)438-180452 [place] [address] 12-03-2024 22:07-0500 Body temperature 97.1 [degF] Dr. aMteo Marmolejo MD Work Phone: 7(755)124-920252 [place] [address] 12-03-2024 22:07-0500 Diastolic blood pressure 88 mm[Hg] Dr. Mateo Marmolejo MD Work Phone: 2(452)647-499521 [place] [address] 12-03-2024 22:07-0500 Heart rate 79 /min Dr. Mateo Marmolejo MD Work Phone: 9(850)979-182821 [place] [address] 12-03-2024 22:07-0500 Respiratory rate 16 /min Dr. Mateo Marmolejo MD Work Phone: 9(493)522-494821 [place] [address] 12-03-2024 22:07-0500 SaO2% (BldA) [Mass fraction] 98 % Dr. Mateo Marmolejo MD Work Phone: 4(854)636-759721 [place] [address] 12-03-2024 22:07-0500 Systolic blood pressure 131 mm[Hg] Dr. Mateo Marmolejo MD Work Phone: 2(569)146-663721 [place] [address] 12-03-2024 18:42-0500 Body mass index (BMI) [Ratio] 34.9 kg/m2 Dr. Mateo Marmolejo MD Work Phone: 2(769)739-596721 [place] [address] 12-03-2024 18:42-0500 Body weight [address] Mateo Marmolejo MD Work Phone: 8(909)070-991621 [place] [address] 12-03-2024 16:56-0500 Body mass index (BMI) [Ratio] 33.41 kg/m2 Krisleela Abgunjan PA Work Phone: 5(128)350-684181 [place] [address] 12-03-2024 16:56-0500 Body temperature 98.2 [degF] Krislyn Aberegg PA Work Phone: 8(569)770-291781 [place] [address] 12-03-2024 16:56-0500 Body weight 77.6 kg Krisleela Abgunjan PA Work Phone: 3(694)861-686681 [place] [address] 12-03-2024 16:56-0500 Diastolic blood pressure 73 mm[Hg] Krislyn Aberegg PA Work Phone: [facility] 12-03-2024 16:56-0500 Heart rate 79 /min Krislyn Aberegg PA Work Phone: [facility] 12-03-2024 16:56-0500 Respiratory rate 18 /min Krislyn Aberegg PA Work Phone: [facility] 12-03-2024 16:56-0500 SaO2% (BldA) [Mass fraction] 99 % Krislyn Aberegg PA Work Phone: [facility] 12-03-2024 16:56-0500 Systolic blood pressure 120 mm[Hg] Krislyn Aberegg PA Work Phone: [facility] 11-10-2024 10:52-0500 Body mass index (BMI) [Ratio] 33.79 kg/m2 Sarah Ying MD Work Phone: [facility] 11-10-2024 10:52-0500 Body weight 78.47 kg Sarah Ying MD Work Phone: [facility] 11-10-2024 10:52-0500 Diastolic blood pressure 78 mm[Hg] Sarah Ying MD Work Phone: [facility] 11-10-2024 10:52-0500 Heart rate 75 /min Sarah Ying MD Work Phone: [facility] 11-10-2024 10:52-0500 Respiratory rate 6 /min Sarah Ying MD Work Phone: [facility] 11-10-2024 10:52-0500 Systolic blood pressure 122 mm[Hg] Sarah Ying MD Work Phone: [facility] 08-11-2024 09:36-0400 Body height 152.4 cm Sarah Ying MD Work Phone: [facility] 08-11-2024 09:36-0400 Body mass index (BMI) [Ratio] 34.18 kg/m2 Sarah Ying MD Work Phone: [facility] 08-11-2024 09:36-0400 Body weight 79.38 kg Sarah Ying MD Work Phone: [facility] 08-11-2024 09:36-0400 Diastolic blood pressure 60 mm[Hg] Sarah Ying MD Work Phone: [facility] 08-11-2024 09:36-0400 Heart rate 67 /min Sarah Ying MD Work Phone: [facility] 08-11-2024 09:36-0400 Respiratory rate 16 /min Sarah Ying MD Work Phone: [facility] 08-11-2024 09:36-0400 Systolic blood pressure 128 mm[Hg] Sarah Ying MD Work Phone: [facility] 07-23-2024 12:50-0400 Body height 152.4 cm Mateo Marmolejo MD Work Phone: [facility] 07-23-2024 12:50-0400 Body mass index (BMI) [Ratio] 35.15 kg/m2 Mateo Marmolejo MD Work Phone: [facility] 07-23-2024 12:50-0400 Body weight 81.65 kg Mateo Marmolejo MD Work Phone: [facility] 07-23-2024 12:50-0400 Diastolic blood pressure 70 mm[Hg] Mateo Marmolejo MD Work Phone: [facility] 07-23-2024 12:50-0400 Heart rate 89 /min Mateo Marmolejo MD Work Phone: [facility] 07-23-2024 12:50-0400 Respiratory rate 14 /min Mateo Marmolejo MD Work Phone: [facility] 07-23-2024 12:50-0400 SaO2% (BldA) [Mass fraction] 98 % Mateo Marmolejo MD Work Phone: [facility] 07-23-2024 12:50-0400 Systolic blood pressure 116 mm[Hg] Mateo Garrido Work Phone: [facility] 06-07-2024 11:54-0400 Body mass index (BMI) [Ratio] 37.5 kg/m2 Ramiro Dominguez REAL ESTATE DEVELOPER.FINISHING TUNNEL OPERATOR Work Phone: [facility] 06-07-2024 11:54-0400 Body weight 87.09 kg Ramiro Dominguez REAL ESTATE DEVELOPER.FINISHING TUNNEL OPERATOR Work Phone: [facility] 06-07-2024 11:54-0400 Diastolic blood pressure 66 mm[Hg] Ramiro Dominguez REAL ESTATE DEVELOPER.FINISHING TUNNEL OPERATOR Work Phone: [facility] 06-07-2024 11:54-0400 Heart rate 73 /min Ramiro Dominguez REAL ESTATE DEVELOPER.FINISHING TUNNEL OPERATOR Work Phone: [facility] 06-07-2024 11:54-0400 Respiratory rate 16 /min Ramiro Dominguez REAL ESTATE DEVELOPER.FINISHING TUNNEL OPERATOR Work Phone: [facility] 06-07-2024 11:54-0400 Systolic blood pressure 132 mm[Hg] Ramiro Dominguez REAL ESTATE DEVELOPER.FINISHING TUNNEL OPERATOR Work Phone: [facility] 04-22-2024 12:13-0400 SaO2% (BldA) [Mass fraction] 96 % [facility] Comment on above: Order Comment: Specimen Type: ARTERIAL B LOOD SPECIMENOrdering Facility: [facility] Address: [address] [place], [place] [id number] Performed By: #### A LL ####[facility] RESPIRATORYCLIA [id number] [id number] [place] [id number] 04-05-2024 13:24-0400 Body mass index (BMI) [Ratio] 39.61 kg/m2 Alida Jaeger PA-C Work Phone: [facility] 04-05-2024 13:24-0400 Body weight 91.99 kg Alida Jaeger PA-C Work Phone: [facility] 04-05-2024 13:24-0400 Diastolic blood pressure 58 mm[Hg] Alida Jaeger PA-C Work Phone: [facility] 04-05-2024 13:24-0400 Heart rate 70 /min Alida Jaeger PA-C Work Phone: [facility] 04-05-2024 13:24-0400 Respiratory rate 16 /min Alida Jaeger PA-C Work Phone: [facility] 04-05-2024 13:24-0400 SaO2% (BldA) [Mass fraction] 100 % Alida Jaeger PA-C Work Phone: [facility] 04-05-2024 13:24-0400 Systolic blood pressure 126 mm[Hg] Alida Jaeger PA-C Work Phone: [facility] 04-05-2024 11:16-0400 Body height 152.4 cm Pacc 1 Work Phone: [facility] 04-05-2024 11:16-0400 Body mass index (BMI) [Ratio] 39.26 kg/m2 Pacc 1 Work Phone: [facility] 04-05-2024 11:16-0400 Body temperature 98.6 [degF] Pacc 1 Work Phone: [facility] 04-05-2024 11:16-0400 Body weight 91.17 kg Pacc 1 Work Phone: [facility] 04-05-2024 11:16-0400 Diastolic blood pressure 70 mm[Hg] Pacc 1 Work Phone: [facility] 04-05-2024 11:16-0400 Heart rate 68 /min Pacc 1 Work Phone: [facility] 04-05-2024 11:16-0400 Respiratory rate 14 /min Pacc 1 Work Phone: [facility] 04-05-2024 11:16-0400 SaO2% (BldA) [Mass fraction] 96 % Pacc 1 Work Phone: [facility] 04-05-2024 11:16-0400 Systolic blood pressure 142 mm[Hg] Pacc 1 Work Phone: [facility] 01-19-2024 11:26-0400 Body temperature 99 [degF] Alida Jaeger PA-C Work Phone: [facility] 01-19-2024 11:26-0400 Body weight 95.25 kg Alida Jaeger PA-C Work Phone: [facility] 01-19-2024 11:26-0400 Diastolic blood pressure 72 mm[Hg] Alida Jaeger PA-C Work Phone: [facility] 01-19-2024 11:26-0400 Heart rate 71 /min Alida Jaeger PA-C Work Phone: [facility] 01-19-2024 11:26-0400 Respiratory rate 16 /min Alida Jaeger PA-C Work Phone: [facility] 01-19-2024 11:26-0400 SaO2% (BldA) [Mass fraction] 99 % Alida Jaeger PA-C Work Phone: [facility] 01-19-2024 11:26-0400 Systolic blood pressure 130 mm[Hg] Alida Jaeger PA-C Work Phone: [facility] 12-15-2023 10:59-0500 Diastolic blood pressure 89 mm[Hg] Alida Jaeger PA-C Work Phone: [facility] 12-15-2023 10:59-0500 Heart rate 64 /min Alida Jaeger PA-C Work Phone: [facility] 12-15-2023 10:59-0500 Systolic blood pressure 167 mm[Hg] Alida Jaeger PA-C Work Phone: [facility] 12-15-2023 10:44-0500 Body temperature 98.4 [degF] Alida Jaeger PA-C Work Phone: [facility] 12-15-2023 10:44-0500 Body weight 95.25 kg Alida Jaeger PA-C Work Phone: [facility] 12-15-2023 10:44-0500 Respiratory rate 18 /min Alida Jaeger PA-C Work Phone: [facility] 10-16-2023 11:30-0500 Diastolic blood pressure 69 mm[Hg] Ramiro Dominguez REAL ESTATE DEVELOPER.FINISHING TUNNEL OPERATOR Work Phone: [facility] 10-16-2023 11:30-0500 Systolic blood pressure 159 mm[Hg] Ramiro Dominguez REAL ESTATE DEVELOPER.FINISHING TUNNEL OPERATOR Work Phone: [facility] 10-16-2023 11:20-0500 Body weight 95.25 kg Ramiro Dominguez REAL ESTATE DEVELOPER.FINISHING TUNNEL OPERATOR Work Phone: [facility] 10-16-2023 11:20-0500 Heart rate 65 /min Ramiro Dominguez REAL ESTATE DEVELOPER.FINISHING TUNNEL OPERATOR Work Phone: [facility] 10-16-2023 11:20-0500 Respiratory rate 16 /min Ramiro Dominguez REAL ESTATE DEVELOPER.FINISHING TUNNEL OPERATOR Work Phone: [facility] 09-17-2023 11:53-0500 Body weight 96.16 kg Ramiro Dominguez REAL ESTATE DEVELOPER.FINISHING TUNNEL OPERATOR Work Phone: [facility] 09-17-2023 11:53-0500 Diastolic blood pressure 92 mm[Hg] Ramiro Dominguez REAL ESTATE DEVELOPER.FINISHING TUNNEL OPERATOR Work Phone: [facility] 09-17-2023 11:53-0500 Heart rate 94 /min Ramiro Dominguez REAL ESTATE DEVELOPER.FINISHING TUNNEL OPERATOR Work Phone: [facility] 09-17-2023 11:53-0500 Respiratory rate 18 /min Ramiro Dominguez REAL ESTATE DEVELOPER.FINISHING TUNNEL OPERATOR Work Phone: [facility] 09-17-2023 11:53-0500 SaO2% (BldA) [Mass fraction] 98 % Ramiro Dominguez REAL ESTATE DEVELOPER.FINISHING TUNNEL OPERATOR Work Phone: [facility] 09-17-2023 11:53-0500 Systolic blood pressure 170 mm[Hg] Ramiro Dominguez REAL ESTATE DEVELOPER.FINISHING TUNNEL OPERATOR Work Phone: [facility] 08-11-2023 14:13-0400 Diastolic blood pressure 74 mm[Hg] Mateo Marmolejo MD Work Phone: [facility] 08-11-2023 14:13-0400 Systolic blood pressure 162 mm[Hg] Mateo Garrido Work Phone: [facility] 08-11-2023 13:43-0400 Body temperature 98.91 [degF] Mateo Marmolejo MD Work Phone: [facility] 08-11-2023 13:43-0400 Body weight 84.82 kg Mateo Marmolejo MD Work Phone: [facility] 08-11-2023 13:43-0400 Heart rate 71 /min Mateo Marmolejo MD Work Phone: [facility] 08-11-2023 13:43-0400 Respiratory rate 18 /min Mateo Marmolejo MD Work Phone: [facility] 08-11-2023 13:43-0400 SaO2% (BldA) [Mass fraction] 95 % Mateo Marmolejo MD Work Phone: [facility] 06-13-2023 11:14-0400 Body height 152.4 cm Pacc 1 Work Phone: [facility] 06-13-2023 11:14-0400 Body temperature 98.29 [degF] Pacc 1 Work Phone: [facility] 06-13-2023 11:14-0400 Body weight 88.91 kg Pacc 1 Work Phone: [facility] 06-13-2023 11:14-0400 Diastolic blood pressure 74 mm[Hg] Pacc 1 Work Phone: [facility] 06-13-2023 11:14-0400 Heart rate 69 /min Pacc 1 Work Phone: [facility] 06-13-2023 11:14-0400 Respiratory rate 16 /min Pacc 1 Work Phone: [facility] 06-13-2023 11:14-0400 SaO2% (BldA) [Mass fraction] 95 % Pac 1 Work Phone: [facility] 06-13-2023 11:14-0400 Systolic blood pressure 132 mm[Hg] Pac 1 Work Phone: [facility] 02-07-2023 13:37-0400 Body weight 85.73 kg Ramiro Antoineoble REAL ESTATE DEVELOPER.FINISHING TUNNEL OPERATOR Work Phone: [facility] 02-07-2023 13:37-0400 Diastolic blood pressure 80 mm[Hg] Ramiro Antoineoble REAL ESTATE DEVELOPER.FINISHING TUNNEL OPERATOR Work Phone: [facility] 02-07-2023 13:37-0400 Heart rate 74 /min Ramiro Antoineoble REAL ESTATE DEVELOPER.FINISHING TUNNEL OPERATOR Work Phone: [facility] 02-07-2023 13:37-0400 Respiratory rate 18 /min Ramiro Danielle REAL ESTATE DEVELOPER.FINISHING TUNNEL OPERATOR Work Phone: [facility] 02-07-2023 13:37-0400 Systolic blood pressure 138 mm[Hg] Ramiro Danielle REAL ESTATE DEVELOPER.FINISHING TUNNEL OPERATOR Work Phone: [facility] 01-31-2023 15:31-0400 Body height 149.9 cm Purvi Herrera MD Work Phone: [facility] 01-31-2023 15:31-0400 Body temperature 98.29 [degF] Purvi Herrera MD Work Phone: [facility] 01-31-2023 15:31-0400 Body weight 85.37 kg Purvi Herrera MD Work Phone: [facility] 01-31-2023 15:31-0400 Diastolic blood pressure 80 mm[Hg] Purvi Herrera MD Work Phone: [facility] 01-31-2023 15:31-0400 Heart rate 77 /min Purvi Herrera MD Work Phone: [facility] 01-31-2023 15:31-0400 SaO2% (BldA) [Mass fraction] 96 % Purvi Herrera MD Work Phone: [facility] 01-31-2023 15:31-0400 Systolic blood pressure 136 mm[Hg] Purvi Herrera MD Work Phone: [facility] 05-07-2022 10:42-0400 Body height 149.9 cm Fatimah Morales REAL ESTATE DEVELOPER.FINISHING TUNNEL OPERATOR Work Phone: [facility] 05-07-2022 10:42-0400 Body weight 81.19 kg Fatimah Morales REAL ESTATE DEVELOPER.FINISHING TUNNEL OPERATOR Work Phone: [facility] 05-07-2022 10:42-0400 Diastolic blood pressure 62 mm[Hg] Fatimah Morales REAL ESTATE DEVELOPER.FINISHING TUNNEL OPERATOR Work Phone: [facility] 05-07-2022 10:42-0400 Heart rate 69 /min Fatimah Morales REAL ESTATE DEVELOPER.FINISHING TUNNEL OPERATOR Work Phone: [facility] 05-07-2022 10:42-0400 SaO2% (BldA) [Mass fraction] 98 % Fatimah Morales REAL ESTATE DEVELOPER.FINISHING TUNNEL OPERATOR Work Phone: [facility] 05-07-2022 10:42-0400 Systolic blood pressure 116 mm[Hg] Fatimah Morales REAL ESTATE DEVELOPER.FINISHING TUNNEL OPERATOR Work Phone: [facility] 02-14-2022 09:10-0400 Body height 148 cm Alida SHARMA-C Work Phone: [facility] 02-14-2022 09:10-0400 Body temperature 99.19 [degF] Alida SHARMA-C Work Phone: [facility] 02-14-2022 09:10-0400 Body weight 86.64 kg Alida SHARMA-C Work Phone: [facility] 02-14-2022 09:10-0400 Diastolic blood pressure 80 mm[Hg] Alida SHARMA-C Work Phone: [facility] 02-14-2022 09:10-0400 Heart rate 68 /min Alida SHARMA-C Work Phone: [facility] 02-14-2022 09:10-0400 Respiratory rate 18 /min Alida Jaeger PA-C Work Phone: [facility] 02-14-2022 09: Systolic blood pressure 128 mm[Hg] Alida Jaeger PA-C Work Phone: [facility] Encounters Encounter Date Encounter Type Care Provider Facility Start: 08-05-2025 End: 08-05-2025 ambulatory MATEO MARMOLEJO Facility:[facility] Start: 08-05-2025 ambulatory Kasi [facility] Facility:[facility] Start: 08-02-2025 End: 08-02-2025 ambulatory MATEO BAILEY Facility:[facility] Start: 07-22-2025 End: 07-22-2025 ambulatory MATEOGERRI MARMOLEJO Facility:[facility] Start: 07-22-2025 Patient encounter procedure MATEO MARMOLEJO [facility] Start: 07-22-2025 End: 07-22-2025 ambulatory MATEO [facility] Facility:[facility] Start: 07-13-2025 End: 07-13-2025 Office outpatient visit 25 minutes Sarah Ying MD Work Phone: Geriatrics Comment on above: Mild cognitive impai rment (Primary Dx); Hidradenitis suppurativa; Hyperlipidemia, mixed; Essential hypertension, benign; Tinnitus of both ears Start: 07-13-2025 End: 07-13-2025 ambulatory SARAH YING Facility:[facility] Start: 07-12-2025 Visit out of hours Vanessa Albrecht MD Work Phone: [employer] Work Phone: Start: 07-11-2025 In-person encounter Vanessa cole MD Work Phone: [facility] Work Phone: Start: 07-08-2025 End: 07-26-[address] Rachna Galvez DO -Wound Healing [facility] Work Phone: Start: 07-08-2025 End: 07-26-[address] Mateo Marmolejo MD Work Phone: -[facility] Start: 07-07-2025 End: 07-07-2025 Patient encounter procedure López Randall Work Phone: Podiatry Comment on above: Onychomycosis (Prima ry Dx); Pain in toe of left foot; Pain in toe of right foot; Ingrown toenail Start: 07-07-2025 End: 07-07-2025 ambulatory MTAEO MARMOLEJO Facility:[facility] Start: 07-04-2025 End: 07-04-2025 Refill Mateo Marmolejo MD Work Phone: [facility] Comment on above: Refill Request Start: 06-10-2025 End: 06-26-[address] Mateo Marmolejo MD Work Phone: -[facility] Start: 06-10-2025 End: 06-26-[address] Rachna Galvez DO -[facility] Work Phone: Start: 06-09-2025 End: 06-13-2025 Telephone encounter Mateo Marmolejo MD Work Phone: [facility] Comment on above: Patient Question Start: 05-13-2025 End: 05-26-[address] Mateo Marmolejo MD Work Phone: -[facility] Start: 05-13-2025 End: 05-26-[address] Kasi Eugene MD -[facility] Work Phone: Start: 05-10-2025 End: 05-10-2025 Refill Mateo Marmolejo MD Work Phone: [facility] Comment on above: Refill Request Start: 05-09-2025 End: 05-11-2025 Chart abstracting Mateo Marmolejo MD Work Phone: [facility] Comment on above: ext document (Wound culture) Start: 05-08-2025 End: 05-08-2025 Home visit Mateo Marmolejo MD Work Phone: [facility] Comment on above: OPENED IN ERROR (Renay april Dx) Start: 05-06-2025 End: 05-06-2025 Patient encounter procedure López Randall Work Phone: Podiatry Comment on above: Onychomycosis (Prima ry Dx); Pain in toe of left foot; Pain in toe of right foot Start: 05-06-2025 End: 05-06-2025 ambulatory MATEO MARMOLEJO Facility:[facility] Start: 05-04-2025 End: 05-04-[address] Mateo Marmolejo MD Work Phone: -Wcz [facility] Start: 05-04-2025 End: 05-04-[address] Shayla Fay DO -[facility] Start: 05-04-2025 End: 05-04-[address] Shayla Fay DO [facility] Work Phone: Start: 05-04-2025 End: 05-04-[address] Mateo Marmolejo MD Work Phone: [facility] Start: 05-04-2025 End: 05-04-2025 ambulatory Mateo Marmolejo Facility:[facility] Start: 05-02-2025 ambulatory Kasi Eugene Facility:[facility] Start: 05-02-2025 Non-patient / Non-visit Dr. Kasi schafer MD -[facility] Start: 05-02-[address] Kasi xiao MD -[facility] Work Phone: Start: 04-26-2025 End: 04-26-2025 Chart abstracting Mateo Marmolejo MD Work Phone: [facility] [place] Comment on above: Outside [id number] Ordered Start: 04-26-2025 End: 04-26-[address] Mateo Marmolejo MD Work Phone: -lab [facility] Start: 04-26-2025 End: 04-26-[address] Breonna Lui MD -[facility] Start: 04-26-2025 Non-patient / Non-visit Dr. Jackelin edwards MD -[facility] Work Phone: Start: 04-26-2025 End: 04-26-2025 ambulatory Mateo Marmolejo Facility:[facility] Start: 04-22-2025 End: 04-22-2025 Chart abstracting Mateo Marmolejo MD Work Phone: [facility] [place] Comment on above: Outside [id number] Ordered Start: 04-21-2025 End: 04-21-[address] Mateo Marmolejo MD Work Phone: -Laboratory Specimen Start: 04-21-2025 End: 04-21-[address] Beronna Lui MD -Laboratory Specimen Work Phone: Start: 04-21-2025 End: 04-21-2025 Patient encounter procedure Julia Rankin NP-C -[facility] Work Phone: Start: 04-21-2025 End: 04-21-[address] Mateo Marmolejo MD Work Phone: [facility] Work Phone: Start: 04-21-2025 End: 04-21-2025 ambulatory Breonna Lui Facility:[facility] Start: 04-18-2025 ambulatory Kasi Eugene Facility:[facility] Start: 04-18-2025 Non-patient / Non-visit Dr. Kasi schafer MD -[facility] Start: 04-18-2025 End: 04-25-[address] Mateo Marmolejo MD Work Phone: -[facility] Start: 04-18-2025 End: 04-25-[address] Kasi Eugene MD -[facility] Work Phone: Start: 04-18-[address] Kasi xiao MD -[facility] Work Phone: Start: 04-18-2025 End: 04-18-[address] Mateo Marmolejo MD Work Phone: -Outpatient Breast Imaging Start: 04-18-2025 End: 04-18-[address] Kasi Eugene MD -[facility] Work Phone: Start: 04-18-2025 End: 04-18-2025 ambulatory Kasi Eugene Facility:[facility] Start: 04-15-2025 End: 04-15-2025 Telephone encounter Mateo Marmolejo MD Work Phone: [facility] Comment on above: Patient Question Start: 04-13-2025 End: 04-13-2025 Chart abstracting Taurus Chang MA [facility] Start: 04-12-2025 Non-patient / Non-visit Dr. Kasi schafer MD -[facility] Start: 04-11-2025 ambulatory Kasi Eugene Facility:[facility] Start: 04-11-2025 Non-patient / Non-visit Dr. Kasi schafer MD -[facility] Start: 04-06-2025 ambulatory MATEO MARMOLEJO Facility :[facility] Start: 04-06-2025 End: 04-06-2025 Subsequent hospital visit by physician [facility] Work Phone: Radiology Start: 04-06-2025 End: 04-06-2025 Office outpatient visit 25 minutes Sarah Ying MD Work Phone: Geriatrics Comment on above: Alzheimer's disease (HCC) (Primary Dx); Essential hypertension, benign; Primary osteoarthritis of both hips; Hypermagnesemia; Anemia, unspecified type Start: 04-06-2025 End: 04-06-2025 ambulatory SARAH YING Facility:[facility] Start: 04-01-2025 End: 04-01-[address] Kasi Eugene MD -[facility] Work Phone: Start: 04-01-2025 End: 04-01-[address] Mateo Marmolejo MD Work Phone: [facility] Work Phone: Start: 03-02-2025 End: 03-02-2025 ambulatory MATEO MARMOLEJO Facility:[facility] Start: 02-17-2025 End: 02-17-2025 ambulatory [facility] Facility:[facility] Start: 02-10-2025 End: 02-10-2025 Refill Mateo Marmolejo MD Work Phone: [facility] Comment on above: Refill Request Start: 02-09-2025 End: 02-09-2025 Follow-up encounter Sendy Candelaria APRN.FINISHING TUNNEL OPERATOR Work Phone: [facility] Start: 02-07-2025 End: 02-07-2025 [facility] MATEO MARMOLEJO Facility:[facility] Start: 02-02-2025 End: 02-02-2025 Follow-up encounter Sendy Candelaria APRN.FINISHING TUNNEL OPERATOR Work Phone: [facility] Comment on above: Results Start: 02-01-2025 End: 02-01-2025 [facility] Facility:[facility] Start: 02-01-2025 End: 02-01-2025 Office outpatient visit 15 minutes Senyd Candelaria APRN.FINISHING TUNNEL OPERATOR Work Phone: [facility] Comment on above: Muscle spasms of bot h lower extremities (Primary Dx) Start: 01-31-2025 End: 01-31-[address] Shayla Fay DO [facility] Work Phone: Start: 01-31-2025 End: 01-31-2025 ambulatory Mateo Marmolejo Facility:[facility] Start: 01-28-2025 End: 01-28-2025 ambulatory MATEO MARMOLEJO Facility:[facility] Start: 01-28-2025 End: 01-28-2025 Patient encounter procedure López Randall Work Phone: Podiatry Comment on above: Onychomycosis (Prima ry Dx); Pain in toe of left foot; Pain in toe of right foot; Ingrown toenail Start: 01-27-2025 Encounter for other preprocedural examination Shayla Isbell [facility] Start: 01-20-2025 End: 01-21-2025 Refill Sarah Ying MD Work Phone: Geriatrics Comment on above: Med Change Request Start: 01-19-2025 End: 01-19-2025 Chart abstracting Taurus Chang MA Family [facility] Comment on above: Consult (Outside OB/ MANAGER CAFE ) Start: 01-18-2025 Non-patient / Non-visit Dr. Cody Fay DO -[facility] Start: 01-18-2025 End: 01-18-2025 Admission to same day surgery center Dr. Shayla Fay DO -[facility] Start: 01-18-2025 End: 01-19-2025 Refill Mateo Marmolejo MD Work Phone: [facility] [place] Comment on above: Refill Request Start: 01-11-2025 ambulatory [facility] Facility :[facility] Start: 01-10-2025 End: 01-10-2025 Follow-up encounter Ramiro Dominguez APRN.CNP Work Phone: [facility] [place] Comment on above: Results Start: 01-10-2025 ambulatory SARAH YING Facility:[facility] Start: 01-07-2025 End: 01-07-2025 Follow-up encounter Ramiro Dominguez APRN.CNP Work Phone: [facility] [place] Start: 01-07-2025 End: 01-07-2025 Subsequent hospital visit by physician Graham [facility] [place] Work Phone: Radiology Comment on above: Subacute cough [R05. 2] Start: 01-07-2025 End: 01-07-2025 Patient encounter procedure Ramiro Dominguez APRN.CNP Work Phone: [facility] [place] Comment on above: Encounter for lipid screening for cardiovascular disease (Primary Dx); Screening for diabetes mellitus; Medication management; Vitamin D deficiency; Subacute cough; Preop examination Start: 01-07-2025 End: 01-07-2025 Preprocedural examination done Ramiro Dominguez APRN.CNP Work Phone: [facility] Start: 01-07-2025 End: 01-07-2025 ambulatory MATEO MARMOLEJO Facility:[facility] Start: 01-07-2025 Encounter for other preprocedural examination RAMIRO DOMINGUEZ [facility] Start: 01-06-2025 End: 01-06-2025 ambulatory Mateo Bailey Facility:[facility] Start: 01-06-2025 End: 01-06-2025 Non-patient / Non-visit Dr. Orlando Thomson MD -[facility] Work Phone: Start: 12-30-2024 End: 12-30-[address] aKsi Eugene MD -[facility] Work Phone: Start: 12-30-2024 End: 12-30-2024 ambulatory Kasi Eugene Facility:[facility] Start: 12-30-2024 End: 03-01-2025 Follow-up encounter Sarah Ying MD Work Phone: Geriatrics Start: 12-29-2024 End: 12-29-2024 ambulatory SARAH YING Facility:[facility] Start: 12-29-2024 End: 12-29-2024 Assmt & care planning pt w/cognitive impairment Sarah Ying MD Work Phone: Geriatrics Comment on above: Evaluation of hearin g impairment (Primary Dx); Blurry vision; Mild cognitive impairment Start: 12-29-2024 End: 12-29-2024 Patient encounter status Sarah Ying MD Work Phone: [facility] Start: 12-24-2024 ambulatory SARAH YING Facility:[facility] Start: 12-24-2024 End: 12-24-2024 Subsequent hospital visit by physician Mri [facility] (I-Stat/Lg Bore/1.5t) [facility] Comment on above: Cognitive impairment , mild, so stated [G31.84] Start: 12-23-2024 End: 12-25-2024 Telephone encounter Mateo Marmolejo MD Work Phone: [facility] Comment on above: Medication Request; Wound Care Start: 12-21-2024 End: 12-21-2024 Refill Mateo Marmolejo MD Work Phone: [facility] Comment on above: Refill Request Start: 12-10-2024 End: 12-10-2024 Chart abstracting Mateo Marmolejo MD Work Phone: [facility] [place] Comment on above: Er Discharge Summary Start: 12-10-2024 End: 12-10-[address] Shayla Fay DO -[facility] Work Phone: Start: 12-10-2024 End: 12-10-2024 ambulatory Shayla Fay Facility:[facility] Start: 12-06-2024 End: 12-06-2024 Chart abstracting Taurus Chang MA [employer] [facility] [place] Comment on above: ER F/U Start: 12-03-2024 End: 12-03-2024 Emergency department patient visit Dr. Kathleen Winkler DO Emergency Department Work Phone: Start: 12-03-2024 End: 12-03-2024 Patient encounter procedure Valentín SHARMA Work Phone: [facility] Comment on above: Skin infection (Prim noelle Dx) Start: 12-03-2024 End: 12-03-2024 ambulatory Mateo Marmolejo MD Work Phone: [facility] Comment on above: Suspected wound infe ction Start: 11-22-2024 End: 11-22-2024 Refill Alida Jaeger PA-C Work Phone: [facility] [place] Comment on above: Refill Request Start: 11-10-2024 End: 11-10-2024 ambulatory SARAH YING Facility:[facility] Start: 11-10-2024 End: 11-10-2024 Office consultation new/estab patient 40 min Sarah Ying MD Work Phone: Geriatrics Comment on above: Panic attack (Primar y Dx); Anxiety Start: 10-28-2024 End: 10-28-2024 ambulatory MATEO MARMOLEJO Facility:[facility] Start: 10-28-2024 End: 10-28-2024 Patient encounter procedure López Randall Work Phone: Podiatry Comment on above: Onychomycosis (Prima ry Dx); Pain in toe of left foot; Pain in toe of right foot Start: 10-06-2024 End: 10-06-2024 Telephone encounter Julio Cesar Deluna MD Work Phone: Orthopaedics Comment on above: Medication Request Start: 09-14-2024 End: 09-14-2024 ambulatory Nelson Amado PT Work Phone: [facility] Comment on above: Ambulatory dysfuncti on (Primary Dx) Start: 09-09-2024 End: 09-09-2024 Chart abstracting Mateo Marmolejo MD Work Phone: [facility] [place] Comment on above: Outside Imaging Start: 09-07-2024 End: 09-07-2024 ambulatory Mateo Marmolejo Facility:[facility] Start: 08-31-2024 End: 08-31-2024 ambulatory Nelson Amado PT Work Phone: [facility] Comment on above: Ambulatory dysfuncti on Start: 08-16-2024 End: 08-16-2024 ambulatory MATEO MARMOLEJO Facility:[facility] Start: 08-16-2024 End: 08-16-2024 Patient encounter procedure Jai Patino OD Work Phone: Ophthalmology Comment on above: Combined forms of ag e-related cataract of both eyes (Primary Dx); Posterior vitreous detachment of both eyes; 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 Start: 08-13-2024 End: 08-13-2024 ambulatory Mateo Marmolejo Facility:[facility] Start: 08-11-2024 End: 08-11-2024 Office consultation new/estab patient 80 min Sarah Ying MD Work Phone: Geriatrics Comment on above: Cognitive impairment , mild, so stated (Primary Dx); Memory difficulties; Bilateral hearing loss, unspecified hearing loss type; Ambulatory dysfunction Start: 08-11-2024 End: 08-11-2024 ambulatory SARAH YING Facility:[facility] Start: 07-26-2024 End: 08-09-2024 Telephone encounter Mateo Marmolejo MD Work Phone: [facility] Comment on above: Results Start: 07-23-2024 End: 07-23-2024 Patient encounter procedure Mateo Marmolejo MD Work Phone: [facility] Comment on above: Medicare annual well ness visit, subsequent (Primary Dx); Essential hypertension, benign; Hyperlipidemia, mixed; Postsurgical hypothyroidism; Elevated hemoglobin A1c; 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; Obesity, Class II, BMI 35-39.9; OAB (overactive bladder); Foot callus; Memory difficulties; Cellulitis of skin; Multiple wounds of skin; Blurred vision; Advance directive discussed with patient; Medication management; Screening for depression; Encounter for screening examination for other mental health and behavioral disorders; Encounter for immunization Start: 07-22-2024 End: 07-22-2024 Patient encounter procedure López Jiangrosemarie Work Phone: Podiatry Comment on above: Onychomycosis (Prima ry Dx); Pain in toe of left foot; Pain in toe of right foot Start: 07-02-2024 End: 07-02-2024 Home visit Mateo Marmolejo MD Work Phone: [facility] Comment on above: Essential hypertensi on, benign (Primary Dx) Start: 06-18-2024 End: 06-18-2024 Home visit Mateo Marmolejo MD Work Phone: [facility] Comment on above: Essential hypertensi on, benign (Primary Dx) Start: 06-15-2024 End: 06-30-2024 Telephone encounter Mateo Marmolejo MD Work Phone: [facility] Comment on above: Medication Problem ( Please review medications that were sent in.) Start: 06-14-2024 End: 06-14-2024 Telephone encounter Mateo Marmolejo MD Work Phone: [facility] Comment on above: Medication Problem Start: 06-10-2024 End: 06-10-2024 Patient encounter procedure Julio Cesar Deluna MD Work Phone: Orthopaedics Comment on above: Status post left hip replacement (Primary Dx) Start: 06-09-2024 Telephone encounter Mateo Marmolejo MD Work Phone: [facility] Comment on above: Faxed Office Notes Start: 06-08-2024 Telephone encounter Ramiro gaston APRN.FINISHING TUNNEL OPERATOR Work Phone: [facility] Comment on above: Results HH PT POC Start: 06-07-2024 End: 06-07-2024 Patient encounter procedure Ramiro Dominguez APRN.FINISHING TUNNEL OPERATOR Work Phone: [facility] Comment on above: Postsurgical hypothy roidism (Primary Dx); S/P total right hip arthroplasty; Essential hypertension, benign Start: 05-31-2024 Telephone encounter Mateo Marmolejo MD Work Phone: [facility] Comment on above: Home Health orders Start: 05-06-2024 End: 05-06-2024 Nursing evaluation of patient and report Aysha Hernandez RN Orthopaedics Comment on above: Status post left hip replacement (Primary Dx) Start: 05-06-2024 ambulatory [facility] Facility:[facility] Start: 05-06-2024 End: 05-06-2024 Subsequent hospital visit by physician [facility] Work Phone: Radiology Comment on above: Pain in left hip [M2 5.552] Start: 04-21-2024 End: 04-25-2024 Evaluation and management of inpatient [facility] Facility: Start: 04-16-2024 Telephone encounter Mateo Marmolejo MD Work Phone: [facility] Comment on above: Medication Problem Start: 04-12-2024 End: 04-12-2024 Preprocedural examination done Jolanta Dumont APRN.FINISHING TUNNEL OPERATOR Work Phone: [facility] Work Phone: Start: 04-12-2024 Telephone encounter Jolanta Dumont APRN.FINISHING TUNNEL OPERATOR Work Phone: Pre Anesthesia Comment on above: Results Start: 04-12-2024 End: 04-12-2024 Patient encounter procedure Herminio Lara APRN.FINISHING TUNNEL OPERATOR Work Phone: Orthopaedics Comment on above: Preoperative examina tion (Primary Dx) Start: 04-06-2024 Telephone encounter Jolanta Dumont APRN.CNP Work Phone: Pre Anesthesia Comment on above: Patient Update Start: 04-05-2024 End: 04-05-2024 Patient encounter procedure Alida Jaeger PA-C Work Phone: [facility] Comment on above: Tinea cruris (Primar y Dx); Open wound Start: 04-05-2024 End: 04-05-2024 Admission to establishment [facility] Work Phone: Pre Anesthesia Start: 04-05-2024 End: 04-05-2024 Anesthesia consultation [facility] Work Phone: Pre Anesthesia Comment on above: Pre-operative examin ation (Primary Dx); OAB (overactive bladder); Urinary frequency; Essential hypertension, benign; Hyperlipidemia, mixed; SANDRA (obstructive sleep apnea); TARANGO (dyspnea on exertion); Postsurgical hypothyroidism; Elevated hemoglobin A1c; S/P total right hip arthroplasty; Obesity, Class II, BMI 35-39.9 Start: 04-05-2024 End: 04-05-2024 Preprocedural examination done [facility] [place] [facility] Work Phone: [facility] Work Phone: Start: 03-30-2024 ambulatory JULIO CESAR DELUNA Facility:[facility] Start: 03-30-2024 End: 03-30-2024 Subsequent hospital visit by physician [facility] Radiology Comment on above: Presence of left art ificial hip joint [Z96.642] Start: 03-29-2024 Telephone encounter Julio Cesar henry MD Work Phone: Orthopaedics Comment on above: Patient Question Start: 03-24-2024 ambulatory Mateo cabral MD Work Phone: Internal Medicine [facility] Start: 03-10-2024 Telephone encounter Julio Cesar henry MD Work Phone: [address] Comment on above: Pre-Op Teaching Start: 2024 Orders Only Julio Cesar Garrido Work Phone: Orthopaedics Comment on above: Primary osteoarthrit is of left hip (Primary Dx) Appointment (Pre-op CT Scan) Start: 02-26-2024 Refill Mateo cabral MD Work Phone: [facility] Comment on above: Refill Request Start: 02-21-2024 Refill Ramiro nick APRN.FINISHING TUNNEL OPERATOR Work Phone: [facility] Comment on above: Refill Request Start: 02-21-2024 Refill Mateo cabral MD Work Phone: [facility] Comment on above: Refill Request Start: 02-17-2024 End: 02-17-2024 Patient encounter procedure Julio Cesar Deluna MD Work Phone: Orthopaedics Comment on above: Primary osteoarthrit is of left hip (Primary Dx); Presence of left artificial hip joint Start: 02-17-2024 ambulatory MATEO MARMOLEJO [facility] ty: Start: 02-17-2024 End: 02-17-2024 Subsequent hospital visit by physician [facility] Work Phone: Radiology Comment on above: Pain in right hip [M 25.551] Start: 02-16-2024 Refill Ramiro nick APRN.FINISHING TUNNEL OPERATOR Work Phone: [facility] Comment on above: Refill Request Start: 01-19-2024 End: 01-19-2024 Patient encounter procedure Alida Jaeger PA-C Work Phone: [facility] Comment on above: Essential hypertensi on, benign Start: 01-08-2024 Refill Alida duke PA-C Work Phone: [facility] Comment on above: Med Change Request Start: 12-15-2023 End: 12-15-2023 Office outpatient visit 25 minutes Alida Jaeger PA-C Work Phone: [facility] Comment on above: Essential hypertensi on, benign (Primary Dx); Bilateral leg edema; Encounter for immunization Start: 12-12-2023 Telephone encounter Mateo Marmolejo MD Work Phone: [facility] Comment on above: Medication Question Start: 12-03-2023 Refill Ramiro nick APRN.FINISHING TUNNEL OPERATOR Work Phone: [facility] Comment on above: Refill Request Start: 12-01-2023 Telephone encounter Julio Cesar henry MD Work Phone: Orthopaedics Comment on above: Appointment (Pre-op appointment left hip) Refill Request Start: 10-30-2023 End: 10-30-2023 Patient encounter procedure López Randall Work Phone: Podiatry Comment on above: Onychomycosis (Prima ry Dx); Ingrown toenail; Pain in toe of left foot; Pain in toe of right foot Start: 10-16-2023 End: 10-16-2023 Patient encounter procedure Ramiro Dominguez APRN.FINISHING TUNNEL OPERATOR Work Phone: [facility] Comment on above: Essential hypertensi on, benign Start: 09-18-2023 Telephone encounter Mateo Marmolejo MD Work Phone: [facility] Comment on above: Results Start: 09-17-2023 End: 09-17-2023 Patient encounter procedure Ramiro Dominguez APRN.FINISHING TUNNEL OPERATOR Work Phone: [facility] Comment on above: Ingrown toenail (Renay april Dx); detention current use of diuretic; Essential hypertension, benign; Bilateral leg edema Start: 08-12-2023 End: 08-12-2023 Patient encounter procedure Julio Cesar Deluna MD Work Phone: Orthopaedics Comment on above: Status post right hi p replacement (Primary Dx) Start: 08-12-2023 Telephone encounter Mateo Marmolejo MD Work Phone: [facility] Comment on above: Results Start: 08-11-2023 End: 08-11-2023 Patient encounter procedure Mateo Marmolejo MD Work Phone: [facility] Comment on above: Bilateral leg edema (Primary Dx); Essential hypertension, benign; Post-operative hemoglobin drop; Postsurgical hypothyroidism; Hyperlipidemia, mixed; Elevated hemoglobin A1c; Shortness of breath Start: 08-05-2023 Telephone encounter Mateo Marmolejo MD Work Phone: [facility] Comment on above: swelling concern Start: 07-30-2023 Refill Mateo cabral MD Work Phone: [facility] Comment on above: Refill Request Start: 07-10-2023 End: 07-10-2023 Nursing evaluation of patient and report Aysha Hernandez RN Orthopaedics Comment on above: Status post right hi p replacement (Primary Dx) Start: 07-10-2023 ambulatory UNKNOWN PROVIDER Facili ty: Start: 07-10-2023 End: 07-10-2023 Subsequent hospital visit by physician [facility] Work Phone: Radiology Comment on above: Pain in right hip [M 25.551] Start: 06-27-2023 ambulatory Julio Cesar Garrido Work Phone: Orthopaedics Comment on above: Pain in right hip (P rimary Dx) Start: 06-27-2023 E-mail encounter fro m caregiver Julio Cesar Deluna MD Work Phone: [facility] Start: 06-26-2023 Telephone encounter Julio Cesar henry MD Work Phone: Orthopaedics Comment on above: Patient Question Start: 06-25-2023 Telephone encounter Mateo Marmolejo MD Work Phone: [facility] Comment on above: Orders Start: 06-25-2023 End: 06-26-2023 ambulatory JULIO CESAR DELUNA Facility:[facility] Start: 06-19-2023 Refill Mateo cabral MD Work Phone: [facility] Comment on above: Refill Request Start: 06-13-2023 End: 06-13-2023 Admission to establishment [facility] Work Phone: [facility] Start: 06-13-2023 End: 06-13-2023 ambulatory [facility] [place] Work Phone: Pre Anesthesia Comment on above: Preoperative examina tion (Primary Dx); Other abnormal findings in urine; Essential hypertension, benign; Postsurgical hypothyroidism; Hyperlipidemia, mixed; SANDRA (obstructive sleep apnea); OAB (overactive bladder); TARANGO (dyspnea on exertion); Obesity, Class II, BMI 35-39.9; Dermatitis Start: 06-13-2023 End: 06-13-2023 Preprocedural examination done [facility] Work Phone: [facility] Work Phone: Start: 06-10-2023 Telephone encounter Julio Cesar henry MD Work Phone: [address] Comment on above: Pre-Op Teaching Start: 06-07-2023 Refill Ramiro nick APRN.FINISHING TUNNEL OPERATOR Work Phone: [facility] Comment on above: Refill Request Start: 06-05-2023 Telephone encounter Mateo Marmolejo MD Work Phone: [facility] Comment on above: script for lift sarath r Start: 06-02-2023 ambulatory JULIO CESAR DELUNA [facility] Start: 06-02-2023 End: 06-02-2023 Subsequent hospital visit by physician Ct Radiology Comment on above: Presence of right ar tificial hip joint [Z96.641] Start: 04-24-2023 Orders Only Julio Cesar Garrido Work Phone: Orthopaedics Comment on above: Primary osteoarthrit is of right hip (Primary Dx) Start: 04-23-2023 ambulatory Mateo cabral MD Work Phone: Internal [facility] [place] Start: 04-22-2023 Refill Mateo cabral MD Work Phone: [facility] Comment on above: Refill Request Start: 04-10-2023 End: 04-10-2023 Patient encounter procedure Julio Cesar Deluna MD Work Phone: Orthopaedics Comment on above: Presence of right ar tificial hip joint (Primary Dx); Primary osteoarthritis of right hip Start: 03-02-2023 Refill Ramiro nick APRN.FINISHING TUNNEL OPERATOR Work Phone: [facility] Comment on above: Refill Request Start: 02-25-2023 Telephone encounter Julio Cesar henry MD Work Phone: [facility] [place] Comment on above: Appointment Start: 02-20-2023 End: 02-20-2023 Patient encounter procedure Jose Luis Kirk MD Work Phone: Orthopaedics Comment on above: Primary osteoarthrit is of right hip (Primary Dx); Right hip pain Start: 02-20-2023 End: 02-20-2023 Subsequent hospital visit by physician Graham [facility] Work Phone: Radiology Comment on above: Pain in right hip [M 25.551] Start: 02-18-2023 Orders Only Jose Luis Kirk MD Work Phone: Orthopaedics Comment on above: Pain in right hip (P rimary Dx) Start: 02-07-2023 End: 02-07-2023 Patient encounter procedure Ramiro Dominguez APRN.CNP Work Phone: [facility] Comment on above: Right hip pain (Prim noelle Dx); Hyperlipidemia, mixed; Essential hypertension, benign; Primary osteoarthritis of both hips; Obesity, Class II, BMI 35-39.9; Medication management Start: 01-31-2023 End: 01-31-2023 Patient encounter procedure Purvi Herrera MD Work Phone: General Surgery Comment on above: Intertrigo; Urinary incontinence, unspecified type; BMI 38.0-38.9,adult Start: 01-27-2023 Telephone encounter Mateo Marmolejo MD Work Phone: [facility] Comment on above: Handicap placard Start: 01-10-2023 Telephone encounter Mateo Marmolejo MD Work Phone: [facility] Comment on above: Results Start: 12-24-2022 Refill Mateo cabral MD Work Phone: [facility] Comment on above: Refill Request Start: 10-05-2022 Refill Mateo cabral MD Work Phone: [facility] Comment on above: Refill Request Start: 05-22-2022 Refill Mateo cabral MD Work Phone: [facility] Comment on above: Refill Request Start: 05-07-2022 End: 05-07-2022 Patient encounter procedure Fatimah Morales APRN.CNP Work Phone: Gastroenterology Comment on above: Unintentional weight loss (Primary Dx); Screening for colon cancer; Chronic constipation Start: 03-28-2022 Refill Mateo cabral MD Work Phone: [facility] Comment on above: Refill Request Start: 03-20-2022 End: 03-20-2022 Patient encounter procedure Solomon Humphries MD Work Phone: Ophthalmology Comment on above: Combined forms of ag e-related cataract of both eyes (Primary Dx); 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; PVD (posterior vitreous detachment), both eyes; Dry eye syndrome of bilateral lacrimal glands Start: 02-15-2022 Telephone encounter Alida wing PA-C Work Phone: [facility] Comment on above: Results Start: 02-15-2022 End: 02-15-2022 Patient encounter procedure Jai Patino OD Work Phone: Ophthalmology Comment on above: Combined forms of ag e-related cataract of both eyes (Primary Dx); 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; PVD (posterior vitreous detachment), both eyes; Dry eye syndrome of bilateral lacrimal glands Start: 02-14-2022 End: 02-14-2022 Patient encounter procedure Alida Jaeger PA-C Work Phone: [facility] Comment on above: Medicare annual well ness visit, subsequent (Primary Dx); Advance directive discussed with patient; Essential hypertension, benign; Hyperlipidemia, mixed; Elevated hemoglobin A1c; Postsurgical hypothyroidism; Reactive depression (situational); Chronic constipation; OAB (overactive bladder); Obesity, Class II, BMI 35-39.9; Blurred vision, right eye; SANDRA (obstructive sleep apnea); Bilateral impacted cerumen; Screening for colon cancer; Primary osteoarthritis of both hips; Primary osteoarthritis of both knees Start: 08-27-2018 End: 03-25-2020 Patient encounter status Ramiro Dominguez REAL ESTATE DEVELOPER.FINISHING TUNNEL OPERATOR Work Phone: [facility] Procedures Date Procedure Procedure Detail Performing Clinician Start: 07-12-2025 Blood pressure withi n normal parameters - no follow-up required Vanessa Albrecht MD Work Phone: Start: 07-12-2025 BMI outside of grady l parameters - no follow-up plan/reason not given Vanessa Albrecht MD Work Phone: Start: 07-12-2025 Current tobacco non- user cad cap copd pv dm Vanessa Albrecht MD Work Phone: Start: 07-12-2025 Documentation of cur rent medications Vanessa Albrecht MD Work Phone: Start: 07-12-2025 Pain assessment docu mented as positive - no follow-up/reason not given Vanessa Albrecht MD Work Phone: Start: 05-04-2025 Gram stain microscopy Radhika Marmolejo MD Work Phone: Start: 05-04-2025 End: 05-04-2025 Microbial culture, routine Dr. Mateo george MD Work Phone: Start: 04-21-2025 Gram stain microscopy Radhika Marmolejo MD Work Phone: Start: 04-21-2025 End: 04-21-2025 Microbial culture, routine Dr. Mateo george MD Work Phone: Start: 04-18-2025 Screening mammography Radhika Marmolejo MD Work Phone: Start: 04-11-[address] Mateo Marmolejo MD Work Phone: Start: 04-11-2025 Gram stain microscopy Radhika Marmolejo MD Work Phone: Start: 04-11-2025 End: 04-11-2025 Microbial culture, routine Dr. Mateo george MD Work Phone: Start: 04-06-2025 Follow-up visit Follow Up SARAH YING Start: 01-18-[address] Angi Marmolejo MD Work Phone: Start: 01-07-2025 Radiologic exam ches t 2 views Ramiro Dominguez REAL ESTATE DEVELOPER.FINISHING TUNNEL OPERATOR Work Phone: Start: 01-07-2025 Lipid 1996 panel - S jackelyn or Plasma Xr [facility] Work Phone: Start: 12-24-2024 3d rendering w/interp&postproc diff work station Sarah Ying MD Work Phone: Start: 12-24-2024 Mri brain brain stem w/o contrast material [facility] Provider Start: 12-03-[address] Mateo Marmolejo MD Work Phone: Start: 12-03-2024 Measurement of renal function Dr. Mateo Marmolejo MD Work Phone: Comment on above: GFR Calc Start: 12-03-2024 Gram stain microscopy D aiden Marmolejo MD Work Phone: Start: 12-03-2024 End: 12-03-2024 Microbial culture, routine Dr. Mateo george MD Work Phone: Start: 07-23-2024 PFIZER-BIONTIdeagen COVI D-19 VACCINE AGE 12+ YR ([facility]) Mateo Marmolejo MD Work Phone: Start: 07-23-2024 Adult depression scr eening assessment Mateo Marmolejo MD Work Phone: Start: 07-23-2024 Lipid 1996 panel - S jackelyn or Plasma Mateo Marmolejo MD Work Phone: Start: 05-06-2024 Radex hip unilateral with pelvis 2-3 views Julio Cesar Deluna MD Work Phone: Start: 03-30-2024 Ct lower extremity w /o contrast material Julio Cesar Deluna MD Work Phone: Start: 02-17-2024 Radex hip unilateral with pelvis 2-3 views Herminio Lara REAL ESTATE DEVELOPER.FINISHING TUNNEL OPERATOR Work Phone: Start: 12-15-2023 PFIZER-BIONTECH COVI D-19 VACCINE (2022- [place]) AGE 12+ YR Alida Jaeger PA-C Work Phone: Start: 08-11-2023 Lipid 1996 panel - S jackelyn or Plasma Julio Cesar Deluna MD Work Phone: Start: 07-10-2023 Radex hip unilateral with pelvis 2-3 views Herminio Lara REAL ESTATE DEVELOPER.FINISHING TUNNEL OPERATOR Work Phone: Start: 06-02-2023 Ct lower extremity w /o contrast material Julio Cesar Deluna MD Work Phone: Start: 02-20-2023 Radex hip unilateral with pelvis 2-3 views Jose Luis Kirk MD Work Phone: Start: 01-09-2023 Lipid 1996 panel - S jackelyn or Plasma Aysha Hernandez RN Start: 05-30-2022 Colonoscopy Mateo whitaker MD Work Phone: Start: 02-15-2022 IOL BIOMETRY W/ IOL CALC OU (BOTH EYES) Jai Patino OD Work Phone: Start: 02-14-2022 Adult depression scr eening assessment Alida Jaeger PA-C Work Phone: Start: 04-18-2021 Mammography Alida wing PA-C Work Phone: Start: 11-09-2018 Colonoscopy Alida wing PA-C Work Phone: Plan of Treatment Date Care Activity Detail Author Start: 01-07-2030 Lipid panel Lipid Screening [facility] Start: 07-23-2029 Lipid panel Lipid Screening [facility] Start: 06-04-2029 Urine microalbumin profile [facility] Start: 08-11-2028 Lipid 1996 panel - Serum or Plasma Lipid Screening [facility] Start: 08-11-2028 Lipid panel Lipid Screening [facility] Start: 02-18-2028 Diabetes Screening Diabetes Screening [facility] Start: 02-08-2028 Diabetes Screening Diabetes Screening [facility] Start: 02-02-2028 Diabetes Screening Diabetes Screening [facility] Start: 01-10-2028 Lipid 1996 panel - Serum or Plasma Lipid Screening [facility] Start: 01-10-2028 LIPID SCREEN LIPID SCREEN [facility] Start: 01-08-2028 Diabetes Screening Diabetes Screening [facility] Start: 07-23-2027 Diabetes Screening Diabetes Screening [facility] Start: 04-24-2027 Diabetes Screening Diabetes Screening [facility] Start: 04-05-2027 Diabetes Screening Diabetes Screening [facility] Start: 02-14-2027 LIPID SCREEN LIPID SCREEN [facility] Start: 09-17-2026 Diabetes Screening Diabetes Screening [facility] Start: 08-11-2026 Diabetes Screening Diabetes Screening [facility] Start: 06-26-2026 DIABETES SCREEN DIABETES SCREEN [facility] Start: 06-26-2026 Diabetes Screening Diabetes Screening [facility] Start: 06-20-2026 LIPID SCREEN LIPID SCREEN [facility] Start: 06-13-2026 DIABETES SCREEN DIABETES SCREEN [facility] Start: 02-01-2026 Annual PCP Team Chronic Disease Visit Annual PCP Team Chronic Disease Visit [facility] Start: 02-01-2026 BP Controlled (<130/80) BP Controlled (<130/80) [facility] Start: 01-11-2026 End: 01-11-2026 Patient encounter procedure 01/11/2026 11:00 AM EDT Office Visit Geriatrics [address] [place] [address] Sarah Ying MD [address] [place] [address] 6 mo letitia follow up Geriatrics Comment on above: 6 mo letitia follow up Start: 01-09-2026 DIABETES SCREEN DIABETES SCREEN [facility] Start: 01-07-2026 Annual PCP Team Chronic Disease Visit Annual PCP Team Chronic Disease Visit [facility] Start: 12-03-2025 BP Controlled (<130/80) BP Controlled (<130/80) [facility] Start: 11-10-2025 BP Controlled (<130/80) BP Controlled (<130/80) [facility] Start: 09-06-2025 End: 09-06-2025 Patient encounter procedure 09/06/2025 10:00 AM EST Office Visit Podiatry [address] [place] [address] López Randall [address] [place] [address] 2 month follow up Podiatry Comment on above: 2 month follow up Start: 08-16-2025 End: 08-16-2025 Patient encounter procedure 08/16/2025 9:30 AM EDT Office Visit [facility] Op[facility]mology [address] [place] [address] Jai Patino, OD [address] [place] [address] complete eye exam Ophthalmology Comment on above: complete eye exam Start: 08-11-2025 BP Controlled (<130/80) BP Controlled (<130/80) [facility] Start: 07-23-2025 Annual PCP Team Chronic Disease Visit Annual PCP Team Chronic Disease Visit [facility] Start: 07-23-2025 Anxiety Screening Anxiety Screening [facility] Start: 07-23-2025 BP Controlled (<130/80) BP Controlled (<130/80) [facility] Start: 07-23-2025 Depression Screening Depression Screening [facility] Start: 07-23-2025 Medicare Annual Wellness Visit Medicare Annual Wellness Visit [facility] Start: 07-23-2025 RSV Vaccine (1 - 1-dose 75+ series) RSV Vaccine (1 - 1-dose 75+ series) [facility] Comment on above: Postponed from 2024 (Insurance Cov erage) Start: 07-23-2025 Shingrix Vaccine (1 of 2) Shingrix Vaccine (1 of 2) [facility] Comment on above: Postponed from 1999 (Insurance Cov erage) Start: 07-22-2025 End: 07-22-2025 Patient encounter procedure 07/22/2025 1:00 PM EDT Office Visit Family Medicine [facility] [address] [place] [address] Mateo Marmolejo MD [address] [place] [address] [place] [address] medicare wellness [facility] Comment on above: medicare wellness Start: 07-13-2025 End: 07-13-2025 Nursing evaluation of patient and report 07/13/2025 10:30 AM EDT Nurse Visit Geriatrics [address] [address] 3 mo follow up with [facility] Geriatrics Comment on above: 3 mo follow up with [facility] Start: 07-13-2025 End: 07-13-2025 Patient encounter procedure Geriatrics Comment on above: 3 mo follow up with [facility] Start: 07-07-2025 End: 07-07-2025 Patient encounter procedure 07/07/2025 2:00 PM EDT Office Visit Podiatry [address] [place] [id number] López Randall [address] [address] 2 mo follow up nail Podiatry Comment on above: 2 mo follow up nail Start: 07-06-2025 End: 07-06-2025 Patient encounter procedure Geriatrics Comment on above: 3 mo follow up with [facility] Start: 06-07-2025 Annual PCP Team Chronic Disease Visit Annual PCP Team Chronic Disease Visit [facility] Start: 05-30-2025 Colonoscopy COLONOSCOPY [facility] Start: 05-30-2025 COLORECTAL CANCER SCREENING COLORECTAL CANCER SCREENING [facility] Start: 05-30-2025 Screening for malignant neoplasm of colon [facility] Start: 05-10-2025 End: 05-10-2025 Patient encounter procedure 05/10/2025 1:25 PM EDT Office Visit Gastroenterology [facility] [address] [place] [id number] Tracy Rowe PA-C [address] [address] [facility] [address] [place] [place] [id number] due for 3 year follow up with last scope on 05/30/22 done in [place] with [facility] Comment on above: due for 3 year follow up with last scope on 05/30/22 done in [place] with [facility] Start: 05-06-2025 End: 05-06-2025 Patient encounter procedure 05/06/2025 2:40 PM EDT Office Visit Podiatry [address] [place] [address] López Randall [address] [place] [address] 3 mo follow up nail Podiatry Comment on above: 3 mo follow up nail Start: 05-04-2025 Comprehensive metabolic 2000 panel - Serum or Plasma [facility] Start: 05-04-2025 Estradiol (E2) [Mass/volume] in Serum or Plasma [facility] Start: 05-04-2025 Testosterone measurement [facility] Start: 04-21-2025 Microbial culture, routine Wound Culture [facility] Start: 04-21-2025 [facility] Start: 04-06-2025 End: 04-06-2025 Patient encounter procedure 04/06/2025 11:30 AM EDT Office Visit Geriatrics [address] [facility] [place] [address] Sarah Ying MD [address] [place] [address] 3 Month follow up [facility] Geriatrics Comment on above: 3 Month follow up [facility]itia Start: 04-05-2025 Annual PCP Team Chronic Disease Visit Annual PCP Team Chronic Disease Visit [facility] Start: 04-05-2025 BP Controlled (<130/80) BP Controlled (<130/80) [facility] in Start: 02-14-2025 DIABETES SCREEN DIABETES SCREEN [facility] Start: 02-09-2025 End: 05-11-2025 Basic metabolic 1999 panel - Serum or Plasma BASIC METABOLIC PANEL Lab Routine Hyponatremia Expected: 02/09/2025, Expires: 05/11/2025 [facility] Work Phone: Comment on above: Expected: 02/09/2025, Expires: Start: 02-02-2025 End: 05-04-2025 Basic metabolic 1999 panel - Serum or Plasma BASIC METABOLIC PANEL Lab Routine Hyponatremia Expected: 02/02/2025, Expires: 05/04/2025 [facility] Comment on above: Expected: 02/02/2025, Expires: Start: 02-02-2025 End: 05-04-2025 Magnesium [Mass/volume] in Serum or Plasma MAGNESIUM Lab Routine Hypomagnesemia Expected: 02/02/2025, Expires: 05/04/2025 [facility] Comment on above: Expected: 02/02/2025, Expires: Start: 02-02-2025 End: 05-04-2025 Osmolality of Urine OSMOLALITY URINE Lab Routine Hyponatremia Expected: 02/02/2025, Expires: 05/04/2025 [facility] Work Phone: Comment on above: Expected: 02/02/2025, Expires: Start: 02-02-2025 End: 05-04-2025 Sodium [Moles/volume] in Urine collected for unspecified duration SODIUM RANDOM URINE Lab Routine Hyponatremia Expected: 02/02/2025, Expires: 05/04/2025 [facility] Comment on above: Expected: 02/02/2025, Expires: Start: 02-01-2025 End: 05-03-2025 Basic metabolic 2000 panel - Serum or Plasma [facility] Work Phone: Comment on above: Expected: 02/01/2025, Expires: Start: 02-01-2025 End: 05-03-2025 Magnesium [Mass/volume] in Serum or Plasma [facility] Comment on above: Expected: 02/01/2025, Expires: Start: 01-28-2025 End: 01-28-2025 Patient encounter procedure Podiatry Comment on above: 3 month follow up nail care Start: 01-21-2025 End: 01-21-2025 Patient encounter procedure 01/21/2025 1:00 PM EDT Office Visit [facility] [address] [place] [address] Alida Jaeger PA-C [address] [place] [address] 6 month follow up [facility] Comment on above: 6 month follow up Start: 01-20-2025 Covid-19 Vaccine ( season) Covid-19 Vaccine ( season) [facility] Start: 01-18-2025 Anes hysteroscopy&/hysterosal pingography w/bx ANESTH HYSTEROSCOPE/GRAPH [facility] Start: 01-18-2025 Annual PCP Team Chronic Disease Visit Annual PCP Team Chronic Disease Visit [facility] Start: 01-18-2025 Hysteroscopy bx endometrium&/polypc w/wo d&c HYSTEROSCOPY BIOPSY [facility] Start: 01-18-2025 Ambulation without limitation [facility] Start: 01-18-2025 Medical regimen orders management [facility] Start: 01-18-2025 Medication education [facility] Start: 01-18-2025 Patient discharge [facility] Start: 01-18-2025 Procedure discontinued [facility] Start: 01-18-2025 Taking patient vital signs [facility] Start: 01-18-2025 Vital signs measurements [facility] Start: 01-18-2025 [facility] Start: 01-10-2025 End: 01-10-2025 Patient encounter procedure 01/10/2025 10:15 AM EDT Office Visit [facility] Op[facility]mology [address] [place] [address] Jai Patino, OD [address] [place] [address] Blurry vision [H53.8]; Mild cognitive impairment [G31.84] Ophthalmology Comment on above: Blurry vision [H53.8]; Mild cognitive im pairment [G31.84] Start: 01-07-2025 End: 04-08-2025 25-hydroxyvitamin D3 [Mass/volume] in Serum or Plasma [facility] Comment on above: Expected: 01/07/2025, Expires: Start: 01-07-2025 End: 04-08-2025 Hemoglobin A1c in Blood [facility] Comment on above: Expected: 01/07/2025, Expires: Start: 01-07-2025 End: 04-08-2025 LIPID PANEL, NONFASTING [facility] Work Phone: Comment on above: Expected: 01/07/2025, Expires: Start: 01-07-2025 End: 04-08-2025 Thyrotropin [Units/volume] in Serum or Plasma [facility] Comment on above: Expected: 01/07/2025, Expires: Start: 01-05-2025 End: 01-05-2025 Patient encounter procedure 01/05/2025 11:00 AM EDT Office Visit Geriatrics [address] [place], [place] [id number] Sarah Ying MD [address] [place] [address] follow up Geriatrics Comment on above: follow up Start: 12-30-2024 Patient referral [facility] Work Phone: Start: 12-29-2024 End: 12-29-2024 Patient encounter procedure 12/29/2024 11:30 AM EST Office Visit Geriatrics [address] [place], [place] [address] Sarah Ying MD [address] [place] [address] follow up Geriatrics Comment on above: follow up Start: 12-24-2024 End: 12-24-2024 Patient encounter procedure 12/24/2024 9:00 AM EST Appointment [facility] [address] [place] [address] Cognitive impairment, mild, so stated [G31.84] [facility] Comment on above: Cognitive impairment, mild, so stated [G 31.84] Start: 12-23-2024 End: 12-23-2024 Patient encounter procedure 12/23/2024 10:40 AM EST Office Visit Family [facility] [address] [place] [address] Mateo Marmolejo MD [address] [place] [address] follow up skin infection per brother [facility] Comment on above: follow up skin infection per brother Start: 12-15-2024 Annual PCP Team Chronic Disease Visit Annual PCP Team Chronic Disease Visit [facility] Start: 12-03-2024 [facility] Start: 11-10-2024 End: 11-10-2024 Patient encounter procedure 11/10/2024 11:00 AM EST Office Visit Geriatrics [address] [place] [address] Sarah Ying MD [address] [place] [address] 3 MONTH FOLLOW UP Geriatrics Comment on above: 3 MONTH FOLLOW UP Start: 11-06-2024 Annual PCP Team Chronic Disease Visit Annual PCP Team Chronic Disease Visit [facility] Start: 10-28-2024 End: 10-28-2024 Patient encounter procedure Podiatry Comment on above: nail care Bilateral hearing lo ss, unspecified hearing loss type [H91.93] Start: 10-27-2024 Advance Directive Discussion Advance Directive Discussion [facility] Start: 10-19-2024 End: 10-19-2024 ambulatory 10/19/2024 10:15 AM EST OT/PT/Speech Visit [facility] [address] [place] [address] Nelson Amado, PT [address] [place], [place] [id number] R26.2 (ICD-10-CM) - Ambulatory dysfunction [facility] Comment on above: R26.2 (ICD-10-CM) - Ambulatory dysfuncti on Start: 10-16-2024 Annual PCP Team Chronic Disease Visit Annual PCP Team Chronic Disease Visit [facility] Start: 09-29-2024 End: 09-29-2024 Patient encounter procedure 09/29/2024 1:40 PM EST Appointment [facility] [place], [place] [id number] Cognitive impairment, mild, so stated [G31.84] [facility] Comment on above: Cognitive impairment, mild, so stated [G 31.84] Start: 09-28-2024 End: 09-28-2024 ambulatory 09/28/2024 12:45 PM EST OT/PT/Speech Visit [facility] [address] [place] [address] Nelson Amado, PT [address] [place] [address] R26.2 (ICD-10-CM) - Ambulatory dysfunction [facility] Comment on above: R26.2 (ICD-10-CM) - Ambulatory dysfuncti on Start: 09-24-2024 End: 12-24-2024 Thyrotropin [Units/volume] in Serum or Plasma THYROID STIMULATING HORMONE Lab Routine Postsurgical hypothyroidism Expected: 09/24/2024, Expires: 12/24/2024 [facility] Work Phone: Comment on above: Expected: 09/24/2024, Expires: Start: 09-17-2024 Annual PCP Team Chronic Disease Visit Annual PCP Team Chronic Disease Visit [facility] Start: 09-14-2024 End: 09-14-2024 ambulatory 09/14/2024 1:30 PM EST OT/PT/Speech Visit [facility] [address] [place] [address] Nelson Amado, PT [address] [facility] [address] R26.2 (ICD-10-CM) - Ambulatory dysfunction [facility] Comment on above: R26.2 (ICD-10-CM) - Ambulatory dysfuncti on Start: 08-31-2024 End: 08-31-2024 ambulatory 08/31/2024 10:15 AM EST OT/PT/Speech Visit [facility] [address] [place] [address] Nelson Amado, PT [address] [facility] [place] [address] Ambulatory dysfunction [R26.2] [facility] Comment on above: Ambulatory dysfunction [R26.2] Start: 08-16-2024 End: 08-16-2024 Patient encounter procedure 08/16/2024 8:15 AM EDT Office Visit [facility] [address] [place] [address] Jai Patino, OD [address] [place] [address] Blurred vision [H53.8] Ophthalmology Comment on above: Blurred vision [H53.8] Start: 08-11-2024 Annual PCP Team Chronic Disease Visit Annual PCP Team Chronic Disease Visit [facility] Start: 08-11-2024 End: 08-11-2024 Patient encounter procedure 08/11/2024 9:30 AM EDT Office Visit Geriatrics [address] [place] [address] Sarah Ying MD [address] [place] [address] Memory difficulties [R41.3] Geriatrics Comment on above: Memory difficulties [R41.3] Start: 08-09-2024 End: 11-08-2024 Potassium [Moles/volume] in Serum or Plasma POTASSIUM Lab Routine Hypokalemia Expected: 08/09/2024, Expires: 11/08/2024 [facility] Comment on above: Expected: 08/09/2024, Expires: 5 Start: 07-23-2024 End: 10-22-2024 CBC W Auto Differential panel - Blood [facility] Comment on above: Expected: 07/23/2024, Expires: 4 Start: 07-23-2024 End: 10-22-2024 Cobalamin (Vitamin B12) [Mass/volume] in Serum or Plasma [facility] Comment on above: Expected: 07/23/2024, Expires: 4 Start: 07-23-2024 End: 10-22-2024 Comprehensive metabolic 2000 panel - Serum or Plasma [facility] Work Phone: Comment on above: Expected: 07/23/2024, Expires: Start: 07-23-2024 End: 10-22-2024 Folate [Mass/volume] in Serum or Plasma [facility] Comment on above: Expected: 07/23/2024, Expires: Start: 07-23-2024 End: 10-22-2024 Hemoglobin A1c in Blood [facility] Comment on above: Expected: 07/23/2024, Expires: Start: 07-23-2024 End: 10-22-2024 LIPID PANEL, NONFASTING [facility] Comment on above: Expected: 07/23/2024, Expires: Start: 07-23-2024 End: 10-22-2024 SYPHILIS TOTAL W/REFLEX [facility] Comment on above: Expected: 07/23/2024, Expires: Start: 07-23-2024 End: 10-22-2024 Thyrotropin [Units/volume] in Serum or Plasma [facility] Comment on above: Expected: 07/23/2024, Expires: Start: 07-23-2024 End: 10-22-2024 Urate [Mass/volume] in Serum or Plasma [facility] Comment on above: Expected: 07/23/2024, Expires: Start: 07-23-2024 End: 10-22-2024 Urinalysis complete panel - Urine [facility] Comment on above: Expected: 07/23/2024, Expires: Start: 07-23-2024 End: 07-23-2024 Patient encounter procedure 07/23/2024 1:00 PM EDT Office Visit [facility] [address] [place] [address] Mateo Marmolejo MD [address] [place] [address] Medicare Wellness [facility] Comment on above: Medicare Wellness Start: 07-22-2024 End: 07-22-2024 Patient encounter procedure 07/22/2024 1:45 PM EDT Office Visit Podiatry [address] [place] [address] López Randall [address] [place], [place] [id number] nail care Podiatry Comment on above: nail care Start: 06-27-2024 Covid-19 Vaccine () Covid-19 Vaccine () [facility] Start: 06-27-2024 Covid-19 Vaccine () Covid-19 Vaccine () [facility] Start: 06-20-2024 DIABETES SCREEN DIABETES SCREEN [facility] Start: 06-10-2024 End: 06-10-2024 Patient encounter procedure 06/10/2024 11:00 AM EDT Office Visit Orthopaedics [address] [id number] Julio Cesar Deluna MD [address] [id number] s/p L COTY 04/21 Orthopaedics Comment on above: s/p L COTY 04/21 Start: 06-07-2024 End: 09-06-2024 Thyrotropin [Units/volume] in Serum or Plasma [facility] Work Phone: Comment on above: Expected: 06/07/2024, Expires: Start: 06-07-2024 End: 06-07-2024 Patient encounter procedure 06/07/2024 11:40 AM EDT Office Visit [facility] [address] [place] [phone] Ramiro Dominguez APRN.[employer] [address] [place], [place] [phone] Follow up from [facility] / Discharge on 05/31 / Left hip [facility] Comment on above: Follow up from [facility] / Discharge on 05/31 / Left hip Start: 05-06-2024 End: 05-06-2024 Nursing evaluation of patient and report 05/06/2024 2:00 PM EDT Nurse Visit Orthopaedics [address] [address] Aysha Hernandez RN S/P Robotic L COTY 04-21-2024 Orthopaedics Comment on above: S/P Robotic L COTY 04-21-2024 Start: 04-21-2024 End: 04-21-2024 Admission to same day surgery center 04/21/2024 12:56 PM EDT - 04/21/2024 3:49 PM EDT Surgery Surgery [address] [place] [address] Julio Cesar Deluna MD [address] [address] ROBOTIC ASSISTED TOTAL HIP ARTHROPLASTY Surgery Comment on above: ROBOTIC ASSISTED TOTAL HIP ARTHROPLASTY Start: 04-21-2024 End: 04-21-2024 Arthrp acetblr/prox fem prostc agrft/algrft ROBOTIC ASSISTED TOTAL HIP ARTHROPLASTY Primary osteoarthritis of left hip 04/21/2024 12:56 PM EDT ME OR Start: 04-21-2024 Subsequent hospital visit by physician 04/21/2024 12:56 PM EDT Hospital Encounter Surgery [address] [place] [address] Julio Cesar Deluna MD [address] [address] Primary osteoarthritis of left hip [M16.12] Surgery Comment on above: Primary osteoarthritis of left hip [M16. 12] Start: 04-14-2024 Covid-19 Vaccine ( season) Covid-19 Vaccine ( season) [facility] Start: 04-12-2024 End: 04-12-2024 Patient encounter procedure 04/12/2024 11:30 AM EDT Office Visit Orthopaedics [address] [address] Herminio Lara APRN.[employer] [address] [place] [address] Pre-op check (open wounds / rash) patient scheduled for left COTY 04-21-2025) Orthopaedics Comment on above: Pre-op check (open wounds / rash) patien t scheduled for left COTY 04-21-2025) Start: 04-05-2024 End: 07-05-2024 Bacteria identified in Urine by Culture [facility] Comment on above: Expected: 04/05/2024, Expires: Start: 04-05-2024 End: 07-05-2024 Comprehensive metabolic 2000 panel - Serum or Plasma [facility] Work Phone: Comment on above: Expected: 04/05/2024, Expires: Start: 04-05-2024 End: 07-05-2024 TYPE AND SCREEN,30 DAY [facility] Comment on above: Expected: 04/05/2024, Expires: Start: 04-05-2024 End: 04-05-2024 Anesthesia consultation 04/05/2024 11:20 AM EDT PAT Pre Anesthesia [address] [place] [address] 1, Pacc [place] [address] [place] [address] ROBOTIC ASSISTED TOTAL HIP ARTHROPLASTY [29430] - Hip - Left Pre Anesthesia Comment on above: ROBOTIC ASSISTED TOTAL HIP ARTHROPLASTY [21566] - Hip - Left Start: 03-30-2024 End: 03-30-2024 Patient encounter procedure 03/30/2024 9:30 AM EDT Appointment Radiology [address] [place] [address] SCAN Radiology Comment on above: ELLY CT SCAN Start: 2024 RSV Vaccine (1 - 1-dose 75+ series) RSV Vaccine (1 - 1-dose 75+ series) [facility] Start: 02-17-2024 End: 02-17-2024 Patient encounter procedure Radiology Comment on above: R hip pain right hip replacemen t Start: 02-08-2024 ANNUAL PCP TEAM CHRONIC DISEASE VISIT ANNUAL PCP TEAM CHRONIC DISEASE VISIT [facility] Start: 01-10-2024 ANNUAL PCP TEAM CHRONIC DISEASE VISIT ANNUAL PCP TEAM CHRONIC DISEASE VISIT [facility] Start: 01-10-2024 BP CONTROLLED (<130/80) BP CONTROLLED (<130/80) [facility] Start: 11-19-2023 End: 02-18-2024 Thyrotropin [Units/volume] in Serum or Plasma TSH BLD Lab Routine Postsurgical hypothyroidism Expected: 11/19/2023, Expires: 02/18/2024 [facility] Work Phone: Comment on above: Expected: 11/19/2023, Expires: 4 Start: 10-27-2023 Advance Directive Discussion Advance Directive Discussion [facility] Start: 10-27-2023 Behavioral Health Screening Behavioral Health Screening [facility] Start: 10-27-2023 Depression Assessment Depression Assessment [facility] Start: 10-13-2023 End: 01-12-2024 Thyrotropin [Units/volume] in Serum or Plasma TSH BLD Lab Routine Postsurgical hypothyroidism Expected: 10/13/2023, Expires: 01/12/2024 [facility] Work Phone: Comment on above: Expected: 10/13/2023, Expires: 4 Start: 09-17-2023 End: 12-17-2023 Basic metabolic 2000 panel - Serum or Plasma [facility] Work Phone: Comment on above: Expected: 09/17/2023, Expires: 4 Start: 08-11-2023 End: 10-11-2023 Comprehensive metabolic 2000 panel - Serum or Plasma [facility] Work Phone: Comment on above: Expected: 08/11/2023, Expires: 3 Start: 08-11-2023 End: 10-11-2023 Hemoglobin A1c in Blood [facility] Work Phone: Comment on above: Expected: 08/11/2023, Expires: 3 Start: 08-11-2023 End: 10-11-2023 LIPID PANEL, NONFASTING [facility] Work Phone: Comment on above: Expected: 08/11/2023, Expires: 3 Start: 08-11-2023 End: 10-11-2023 Natriuretic peptide.B prohormone N-Terminal [Mass/volume] in Serum or Plasma [facility] Work Phone: Comment on above: Expected: 08/11/2023, Expires: 3 Start: 08-11-2023 End: 10-11-2023 Thyrotropin [Units/volume] in Serum or Plasma [facility] Work Phone: Comment on above: Expected: 08/11/2023, Expires: 3 Start: 06-27-2023 Covid-19 Vaccine () Covid-19 Vaccine () [facility] Start: 06-13-2023 End: 08-13-2023 Bacteria identified in Urine by Culture [facility] Work Phone: Comment on above: Expected: 06/13/2023, Expires: 3 Start: 06-13-2023 End: 08-13-2023 CONFIRM BLOOD TYPE CONFIRM BLOOD TYPE Blood Bank Routine Preoperative examination Expected: 06/13/2023, Expires: 08/13/2023 [facility] Work Phone: Comment on above: Expected: 06/13/2023, Expires: 3 Start: 06-13-2023 End: 08-13-2023 TYPE AND SCREEN,30 DAY [facility] Work Phone: Comment on above: Expected: 06/13/2023, Expires: 3 Start: 06-13-2023 End: 08-13-2023 Urinalysis complete panel - Urine [facility] Work Phone: Comment on above: Expected: 06/13/2023, Expires: 3 Start: 05-07-2023 BP CONTROLLED (<130/80) BP CONTROLLED (<130/80) [facility] Start: 03-09-2023 End: 05-09-2023 Comprehensive metabolic 2000 panel - Serum or Plasma COMP METABOLIC PANEL Lab Routine Medication management Expected: 03/09/2023, Expires: 05/09/2023 [facility] Work Phone: Comment on above: Expected: 03/09/2023, Expires: 3 Start: 02-14-2023 Adult depression screening assessment DEPRESSION SCREENING [facility] Start: 02-14-2023 ANNUAL PCP TEAM CHRONIC DISEASE VISIT ANNUAL PCP TEAM CHRONIC DISEASE VISIT [facility] Start: 10-27-2022 ADVANCE DIRECTIVE DISCUSSION ADVANCE DIRECTIVE DISCUSSION [facility] Start: 10-27-2022 DEPRESSION ASSESSMENT DEPRESSION ASSESSMENT [facility] Start: 06-20-2022 BP CONTROLLED (<130/80) BP CONTROLLED (<130/80) [facility] Start: 06-20-2022 SHINGRIX VACCINE (1 of 2) SHINGRIX VACCINE (1 of 2) [facility] Comment on above: Postponed from 1999 (Insurance Cov erage) Start: 04-18-2022 Mammography [facility] Start: 04-18-2022 Screening for malignant neoplasm of breast Mammogram Screening [facility] Start: 02-15-2022 End: 04-17-2022 Sodium [Moles/volume] in Serum or Plasma SODIUM/NA BLD Lab Routine Hyponatremia Expected: 02/15/2022, Expires: 04/17/2022 [facility] Work Phone: Comment on above: Expected: 02/15/2022, Expires: 2 Start: 02-14-2022 End: 04-16-2022 Comprehensive metabolic 2000 panel - Serum or Plasma [facility] Work Phone: Comment on above: Expected: 02/14/2022, Expires: 2 Start: 02-14-2022 End: 04-16-2022 Hemoglobin A1c/Hemoglobin.total in Blood [facility] Work Phone: Comment on above: Expected: 02/14/2022, Expires: 2 Start: 02-14-2022 End: 04-16-2022 LIPID PANEL, NONFASTING [facility] Work Phone: Comment on above: Expected: 02/14/2022, Expires: 2 Start: 02-14-2022 End: 04-16-2022 Thyrotropin [Units/volume] in Serum or Plasma [facility] Work Phone: Comment on above: Expected: 02/14/2022, Expires: 2 Start: 11-09-2021 Colonoscopy COLONOSCOPY [facility] Start: 11-09-2021 COLORECTAL CANCER SCREENING COLORECTAL CANCER SCREENING [facility] Start: 10-27-2021 DEPRESSION ASSESSMENT DEPRESSION ASSESSMENT [facility] Start: 03-03-2021 COVID-19 VACCINE (2 - Booster for Jaden series) COVID-19 VACCINE (2 - Booster for Jaden series) [facility] Start: 02-08-2019 FECAL OCCULT BLOOD FECAL OCCULT BLOOD [facility] Start: 02-08-2019 Screening for malignant neoplasm of colon Fecal Occult Blood [facility] Start: 12-06-2018 Screening for malignant neoplasm of colon Sigmoidoscopy [facility] Start: 12-06-2018 SIGMOIDOSCOPY SIGMOIDOSCOPY [facility] Start: 2009 RSV Vaccine (1 - 1-dose 60+ series) RSV Vaccine (1 - 1-dose 60+ series) [facility] Start: 1999 SHINGRIX VACCINE (1 of 2) SHINGRIX VACCINE (1 of 2) [facility] Start: 1994 COLOGUARD (FIT-DNA) COLOGUARD (FIT-DNA) [facility] Start: [address] COLONOGRAPHY [facility] Start: 1994 Screening for malignant neoplasm of colon [facility] Start: 1967 Anxiety Screening Anxiety Screening [facility] Start: 1967 Depression Screening Depression Screening [facility] Alanine aminotransfe rase [Enzymatic activity/volume] in Serum or Plasma [facility] Albumin [Mass/volume ] in Serum or Plasma [facility] Alkaline phosphatase [Enzymatic activity/volume] in Serum or Plasma [facility] Anion gap in Serum o r Plasma [facility] Basic metabolic 2008 panel with ionized calcium - Serum or Plasma [facility] Bilirubin, total measurement [facility] BUN/Creatinine ratio [facility] Calcium [Mass/volume ] in Serum or Plasma [facility] Carbon dioxide, tota l [Moles/volume] in Central venous blood [facility] CORNEAL TOPOGRAPHY A TLAS OU (BOTH EYES) CORNEAL TOPOGRAPHY ATLAS OU (BOTH EYES) OPHT Imaging Routine Combined forms of age-related cataract of both eyes 02/15/2022 1:57 PM EDT [facility] Work Phone: Creatinine [Mass/vol ume] in Serum or Plasma [facility] End: 03-18-2025 CT Hip - left WO contrast CT HIP WO IVCON LEFT Radiology Routine Presence of left artificial hip joint 1 Occurrences starting 02/17/2024 until 03/18/2025 [facility] Work Phone: Comment on above: 1 Occurrences starting 02/17/2024 until 03/18/2025 End: 05-09-2024 CT HIP WO IVCON RIGHT CT HIP WO IVCON RIGHT Radiology Routine Presence of right artificial hip joint 1 Occurrences starting 04/10/2023 until 05/09/2024 [facility] Work Phone: Comment on above: 1 Occurrences starting 04/10/2023 until 05/09/2024 End: 06-11-2024 ECG COMPLETE ECG COMPLETE ECG Routine Preoperative examination 1 Occurrences starting 06/13/2023 until 06/11/2024 [facility] Work Phone: Comment on above: 1 Occurrences starting 06/13/2023 until 06/11/2024 End: 08-12-2024 Echocardiography ECHO Cardiology Routine Congestive heart failure, unspecified HF chronicity, unspecified heart failure type (HCC) Generalized edema 1 Occurrences starting 08/12/2023 until 08/12/2024 [facility] Work Phone: Comment on above: 1 Occurrences starting 08/12/2023 until 08/12/2024 Glucose [Mass/volume ] in Serum or Plasma [facility] End: 08-12-2025 HEARING TEST/AUDIOGRAM HEARING TEST/AUDIOGRAM Audiology Routine Bilateral hearing loss, unspecified hearing loss type 1 Occurrences starting 08/11/2024 until 08/12/2025 [facility] Comment on above: 1 Occurrences starting 08/11/2024 until 08/12/2025 End: 12-30-2025 HEARING TEST/AUDIOGRAM HEARING TEST/AUDIOGRAM Audiology Routine Evaluation of hearing impairment 1 Occurrences starting 12/29/2024 until 12/30/2025 [facility] Work Phone: Comment on above: 1 Occurrences starting 12/29/2024 until 12/30/2025 End: 05-22-2024 ISABEL SCREENING ISABEL SCREENING Radiology Routine Encounter for screening mammogram for breast cancer 1 Occurrences starting 04/23/2023 until 05/22/2024 [facility] Work Phone: Comment on above: 1 Occurrences starting 04/23/2023 until 05/22/2024 Measurement of renal function [facility] MG Breast - bilatera l Screening [facility] End: 04-23-2025 MG Breast Screening ISABEL SCREENING Radiology Routine Encounter for screening mammogram for breast cancer 1 Occurrences starting 03/24/2024 until 04/23/2025 [facility] Work Phone: Comment on above: 1 Occurrences starting 03/24/2024 until 04/23/2025 End: 09-10-2025 MR Brain WO contrast MRI BRAIN W QUANT WO IVCON Radiology Routine Cognitive impairment, mild, so stated 1 Occurrences starting 08/11/2024 until 09/10/2025 [facility] Work Phone: Comment on above: 1 Occurrences starting 08/11/2024 until 09/10/2025 End: 09-10-2025 MR Unspecified body region 3D post processing MRI 3D POST PROCESSING Radiology Routine Cognitive impairment, mild, so stated 1 Occurrences starting 08/11/2024 until 09/10/2025 [facility] Comment on above: 1 Occurrences starting 08/11/2024 until 09/10/2025 OCT MACULA CIRRUS OU (BOTH EYES) OCT MACULA CIRRUS OU (BOTH EYES) OPHT Imaging Routine Combined forms of age-related cataract of both eyes 02/15/2022 1:57 PM EDT [facility] Work Phone: Patient Education ED Hidradeniti s Suppurativa, Abx [facility] Work Phone: Patient referral [facility] Work Phone: Potassium measurement [facility] End: 05-07-2023 Screening colonoscopy COLONOSCOPY SCREENING Endoscopy Routine Screening for colon cancer Unintentional weight loss 1 Occurrences starting 05/07/2022 until 05/07/2023 [facility] Work Phone: Comment on above: 1 Occurrences starting 05/07/2022 until 05/07/2023 Serum chloride measurement [facility] Serum testosterone measurement [facility] Sodium measurement [facility] STAPHYLOCOCCUS AUREU S & MRSA SCREEN, PCR, NASAL STAPHYLOCOCCUS AUREUS & MRSA SCREEN, PCR, NASAL Lab Routine Pre-operative examination Ordered: 04/05/2024 [facility] Comment on above: Ordered: 04/05/2024 Testosterone Free [Mass/volume] in Serum or Plasma [facility] Total protein measurement [facility] Urea nitrogen [Mass/volume] in Serum or Plasma [facility] End: 07-26-2024 XR HIP 2V AP/LAT RIGHT ([place]) XR HIP 2V AP/LAT RIGHT ([place]) Radiology Routine Pain in right hip 1 Occurrences starting 07/01/2023 until 07/26/2024 [facility] Work Phone: Comment on above: 1 Occurrences starting 07/01/2023 until 07/26/2024 End: 03-19-2024 XR HIP GENERAL 3V PELV/AP/LAT RIGHT XR HIP GENERAL 3V PELV/AP/LAT RIGHT Radiology Routine Pain in right hip 1 Occurrences starting 02/18/2023 until 03/19/2024 [facility] Work Phone: Comment on above: 1 Occurrences starting 02/18/2023 until 03/19/2024 [facility] Immunizations Immunization Date Immunization Notes Care Provider Maude jo 07-23-2024 COVID-19 vaccine, ag e 12+ yr ([employer]) Mateo Marmolejo MD Work Phone: [facility] 12-15-2023 COVID-19 vaccine, ag e 12+ yr, 2022- season ([employer]) Alida Jaeger PA-C Work Phone: [facility] 06-04-2019 tetanus toxoid, redu jerome diphtheria toxoid, and acellular pertussis vaccine, adsorbed Alida Jaeger PA-C Work Phone: [facility] 03-06-2005 tetanus toxoid, redu jerome diphtheria toxoid, and acellular pertussis vaccine, adsorbed Alida Jaeger PA-C Work Phone: [facility] Work Phone: Payers Date Payer Category Payer Self-pay 2019 Private Health Insurance HUMANA HUMANA MEDICARE SUPPLEMENT [id number] 2019-Present [phone] [address] [address] [place] [address] Indemnity [id number] 2019 Private Health Insurance [id number] 2019 Medicare [id number] 2014 Medicare MEDICARE MEDICAR E A AND B [id number] 2014-Present [phone] [address] [address] [place] [address] Medicare [id number] 2014 Medicare [id number] 2014 Medicare [id number] Unknown [id number] Unknown [id number] [id number] .2.462 Unknown [id number] 2.16.840.1.983996.3.579 .2.462 Unknown [id number] 2.16.840.1.101804.3.579 .2.462 Unknown [id number] 2.16.840.1.259603.3.579 .2.462 Unknown [id number] 2.16.840.1.720359.3.579 .2.462 Unknown [id number] 2.16.840.1.894247.3.579 .2.462 Unknown [id number] 2.16.840.1.046498.3.579 .2.462 Unknown [id number] 2.16.840.1.597067.3.579 .2.462 Unknown [id number] 2.16.840.1.754945.3.579 .2.462 Unknown [id number] 2.16.840.1.376900.3.579 .2.462 Unknown [id number] 2.16.840.1.021871.3.579 .2.462 Unknown [id number] 2.16.840.1.435749.3.579 .2.462 Unknown [id number] 2.16.840.1.566614.3.579 .2.462 Unknown [id number] 2.16.840.1.140688.3.579 .2.462 Unknown [id number] 2.16.840.1.898176.3.579 .2.462 Unknown [id number] 2.16.840.1.314965.3.579 .2.462 Unknown [id number] 2.16.840.1.911056.3.579 .2.462 Unknown [id number] 2.16.840.1.327551.3.579 .2.462 Unknown [id number] 2.16.840.1.485929.3.579 .2.462 Unknown [id number] 2.16.840.1.350488.3.579 .2.462 Unknown [id number] 2.16.840.1.516619.3.579 .2.462 Unknown [id number] 2.16.840.1.675428.3.579 .2.462 Unknown [id number] 2.16.840.1.016951.3.579 .2.462 Unknown [id number] 2.16.840.1.100032.3.579 .2.462 Unknown [id number] 2.16.840.1.180126.3.579 .2.462 Social History Date Type Detail Facility Start: 01-20-2013 End: 01-04-2025 Tobacco smoking status NHIS Never smoked tobacco [facility] Work Phone: Start: 01-20-2013 End: 01-09-2023 Tobacco use and exposure Smokeless tobacco non-user [facility] Work Phone: Start: 02-14-2022 End: 04-06-2025 Alcohol intake Current non-drinker of alcohol (finding) [facility] Start: 01-20-2013 End: 01-09-2023 Tobacco Comment Mom used to smoke, quit 2011 [facility] Start: 1950 Sex Assigned At Not on file [facility] Start: 02-04-2022 End: 02-14-2022 Exposure to SARS-CoV-2 (event) Not sure [facility] Start: 04-10-2023 End: 04-22-2024 History of Social function [facility] Work Phone: Start: 04-10-2023 End: 04-22-2024 Tobacco use panel [facility] Work Phone: Start: 09-27-2012 Adult Depression Screening Assessment 4 [facility] Work Phone: Start: 08-11-2024 Education 13 [facility] Start: 01-06-2020 None None [place] [facility] Start: 01-06-2020 With Family With Family Siddharth [facility] Start: 01-06-2020 [facility] Start: 03-25-2025 Sex Female (finding) [facility] Start: 1950 Sex Assigned At Female [facility] Start: 05-06-2025 End: 07-13-2025 Alcoholic beverage intake Ex-drinker (finding) [facility] NEGATED: Highlighted row Not [facility] Medical Equipment Procedure Code Equipment Code Equipment Origin al Text Equipment Identifier Dates Insert Acetabula r 36mm 0d E X3 Trident Sterile Latex Free - [id number] Start: 06-25-2023 Head V40 36mm 0m m Offset Taper Biolox Delta Femoral Hip - [id number] Start: 06-25-2023 Screw Trident Ii 6.5mm 25mm Bone Low Profile Hexagonal Sterile - [id number] Start: 06-25-2023 Shell Trident Ii 52mm E Tritanium Acetabular 5 Screw Hole Cluster Sterile - [id number] Start: 06-25-2023 Stem Accolade Ii 4 127d Femoral - [id number] Start: 06-25-2023 Stem Femoral 105 mm Size 5 High Offset Insignia Collared - [id number] Start: 04-21-2024 Insert Acetabula r 36mm 0d E X3 Trident Sterile Latex Free - [id number] Start: 04-21-2024 Shell Trident Ii 54mm E Tritanium Acetabular 5 Screw Hole Cluster Sterile - [id number] Start: 04-21-2024 Head V40 36mm -5 mm Offset Taper Biolox Delta Femoral Hip - [id number] Start: 04-21-2024 Screw Trident Ii 6.5mm 25mm Bone Low Profile Hexagonal Sterile - [id number] Start: 04-21-2024 Goals Date Patient Goal Desired Activity /State Functional Status Date Assessment Result Facility 04-25-2024 Are you deaf, or do you have serious difficulty hearing No 04/25/2024 6:16 PM Wicho Mina, ABIDA No [facility] 04-25-2024 Are you blind, or do you have serious difficulty seeing, even when wearing glasses No 04/25/2024 6:16 PM EDWicho Woody, ABIDA No [facility] 04-25-2024 Do you have serious difficulty walking or climbing stairs Yes 04/25/2024 6:16 PM EDT Wicho Mahan, ABIDA Yes [facility] 04-25-2024 Do you have difficul ty dressing or bathing No 04/25/2024 6:16 PM EDT Wicho Mahan, RN No [facility] 04-25-2024 Because of a physica l, mental, or emotional condition, do you have difficulty doing errands alone such as visiting a physician's office or shopping Yes 04/25/2024 6:16 PM EDT Wicho Mahan, RN Yes [facility] Mental Status Date Assessment Result Facility 07-11-2025 Cognitive Function house [facility] Work Phone: 01-18-2025 Cognitive function Voice/Name [facility] Work Phone: 04-25-2024 Because of a physica l, mental, or emotional condition, do you have serious difficulty concentrating, remembering, or making decisions Yes 04/25/2024 6:16 PM Wicho Mina, ABIDA Yes [facility] Clinical Notes 08-27-2018 to 07-25-2025 Sarah Ying MD - 07/13/2025 12:34 PM EDTPatient Instructions Note Date & Type Note Facility 07-25-2025 Note HNO ID: [id number] Author: BRAYDEN BLOUNT MA Service: ? Author Type: Deli Associate Type: Progress Notes Filed: 07/25/2025 13:51 Note Text: Referral paperwork has been faxed to [facility] with request to speak with Gerson Hunter to schedule appt. Brayden Blount MA [facility] 07-22-2025 Note HNO ID: [id number] Author: MATEO MARMOLEJO MD Service: ? Author Type: Physician Type: Progress Notes Filed: 07/24/2025 20:36 Note Text: Mónica Decker is a 75 year old female here for a Medicare wellness visit. Medicare Health Risk Assessment General Health Fair Exercise: Minutes/Day On average, how many minutes do you engage in exercise at this level?: 150+ min (doing chores) Exercise: Days/Week 7 days Alcohol: Daily Use Never Alcohol: Drinks/Day Patient does not drink Alcohol: 6 or more drinks Never Feel off balance No Concerns: Teeth/Dentures No Concerns: Sexual function No Troubled by feelings Anxious Frequency: Eating healthy diet Nearly every day ADLs requiring help Grocery shopping Safety precautions in home/vehicle No (Rugs in home, no grab bars in bathroom. Following all other safety precautions) Smoke, vape, chews tobacco No Difficulty hearing Yes Difficulty seeing No Current Providers Specialists: I have reviewed specialist-related care of the patient in the medical record. Medical/Family history review Reviewed and updated problem list, medical/surgical/family/social history, medications, and allergies. Opioid use review Opioid Medications (last 90 days) No data to display Anxiety/Depression screening PHQ-2 Score: 1 (Lower risk for depression) MAKI-2 Score: 2 (Lower risk for anxiety) Recommendation: no further intervention at this time, does not some anxiety Cognitive screening Cognitive screening reviewed and Patient has known cognitive impairment. Functional Observation Was the patient's Timed Up AND Go test unsteady or >= 12 seconds? No Advance Care Planning Patient did not wish or was not able to name a surrogate decision maker or provide an advance care plan Measurements BP 98/68 (BP Site: Left Arm, BP Position: Sitting, BP Cuff Size: Regular Adult) Pulse 64 Resp 16 Ht 149.9 cm (4' 11) Wt 67.8 kg (149 lb 6.4 oz) BMI 30.18 kg/m? Vision Screening: Follows with optometry/ophthalmology Assessment/Plan Medicare annual wellness visit, subsequent (Z00.00) - Counseled on healthy diet and regular exercise - Fall avoidance information provided - Personalized prevention plan provided See below Chief Complaint Patient presents with: Medicare Wellness Exam HPI Mónica Decker is a 75 year old female who presents here today for a Medicare wellness and a routine follow up. Patient with hx of HTN, Hyperlipidemia, Hypothyroidism, elevated A1c, gout, allergies, Obesity, SANDRA, OAB, Hidradenitis suppurativa Mónica reports ongoing issues with hidradenitis suppurativa, including swelling in the groin area described as like a plum and draining spots. She has not yet established care with a labeling associate but is in the process of scheduling an appointment at [facility]. She expresses concern about the possibility of requiring surgical intervention again. She has a history of bilateral hip replacements, with the most recent surgery in March. The first hip replacement on the right side was successful, with Mónica reportedly ambulating the next day. However, the second hip replacement on the left side was complicated by an allergic reaction to the anesthetic, resulting in a 2-month stay in a healthcare facility. She reports significant weight loss over the past couple of years, attributed to changes in diet and increased physical activity related to animal care. She denies recent fevers, but notes recent onset of headaches, which are unusual for her. She reports no sudden changes in hearing or vision, though she does note decreased hearing. She deniesissues with her nose or throat, but reports a cough with phlegm production, initially clear but now yellow. She experiences dyspnea with fast walking, but denies chest pain or palpitations. She also denies lower extremity edema, nausea, emesis, or hematochezia, but reports intermittent diarrhea and a burning sensation with urination. She denies changes in urinary frequency, muscle or joint aches, new skin lesions, easy bruising or bleeding, changes in heat or cold tolerance, increased thirst, syncope, seizures, or tremors. She does report anxiety-related hand tremors. She receives home care twice a week for assistance with bathing due to shoulder stiffness. She is able to do her own laundry and drive short distances. Her brother assists with medical appointments and shopping. Past medical history, appointments, medications, allergies reviewed. Previous Medical History PAST MEDICAL HISTORY Diagnosis Date 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 01/24/2021 Adenomatous colon polyp Allergic rhinitis 07/08/2005 Bilateral hip pain 06/05/2023 Dystrophic nail 01/24/2021 multiple bilateral toes. Elevated hemoglobin A1c 08/27/2018 Essential hypertension, benign 07/08/2005 Fracture left forearm and right radial head Hammer toes of both feet 01/24/2021 Ovidio (more content not included)... [facility] 07-13-2025 Note HNO ID: [id number] Author: SARAH YING MD Service: ? Author Type: Physician Type: Progress Notes Filed: 07/13/2025 18:09 Note Text: Reason for Visit Follow up HPI Mónica Decker is a 75-year-old female, with a history of hidradenitis suppurativa, hypothyroidism, essential hypertension, hyperlipidemia, presenting for follow-up. Mónica recently underwent a surgical consultation for hidradenitis suppurativa on Friday. She reports that the condition is slowly progressing, getting closer to cure, but acknowledges that it can recur. She has a history of similar issues during her teenage years, which she attributes to riding horses bareback and exposure to dirt and sweat. At that time, she managed the condition by cleaning the affected areas with alcohol and using pimple cream. Currently, she is taking doxycycline as part of her treatment regimen. Mónica also has a history of thickened toenails, for which she has been seeing a air breaker operator. She reports that the air breaker operator has been trimming the nails to prevent further growth and complications. In addition to her dermatological issues, Mónica has been experiencing diarrhea, which she does not find debilitating. Its not clear if the diarrhea if from doxy or aricept/ Mónica has been taking a 10 mg aricept, which has shown significant improvement in her cognitive function. Her brother notes a big improvement in her cognitive abilities, She is able to take care of herself, manage her own medications, and pay her own bills. She lives alone and takes care of multiple cats and other animals. She can drive short distances but relies on her caregiver for longer trips and heavy lifting. She uses a cane for balance and is working on improving her knee flexibility. SOCIAL HISTORY[1] Past medical history, appointments, medications, allergies reviewed. Pertinent Lab/Diagnostic Studies are reviewed and discussed today Current Outpatient Medications: potassium chloride 20 mEq TbER allopurinol (ZYLOPRIM) 300 mg tablet amLODIPine (NORVASC) 10 mg tablet furosemide (LASIX) 40 mg tablet lisinopril (ZESTRIL) 40 mg tablet pravastatin (PRAVACHOL) 10 mg tablet donepezil (ARICEPT) 10 mg tablet levothyroxine (LEVOXYL) 150 mcg tablet cyanocobalamin (VITAMIN B-12) 1,000 mcg tab doxycycline (VIBRA-TABS) 100 mg tablet silver sulfADIAZINE (SILVADENE) 1 % cream acetaminophen (TYLENOL) 500 mg tablet polyethylene glycol 3350 17 gram packet Health Maintenance Advance Directive Discussion Depression Screening Anxiety Screening@ Review Of Systems Ears/Nose/Mouth/Throat: (+) tinnitus Gastrointestinal: (+) diarrhea Skin: (+) groin sores, (+) groin pain, (+) groin drainage Neurological: (+) spatial disorientation Physical Exam BP 91/56 Pulse (!) 59 Resp 16 Wt 68.4 kg (150 lb 12.8 oz) BMI 29.45 kg/m? GENERAL: NAD, alert and oriented SKIN: unremarkable, no rash or skin lesions. HEAD: normocephalic EYES: PERRLA, EOMI, conjunctiva clear EARS: external ears normal, canals clear, TM's normal. LUNGS: Clear to auscultation bilaterally, no wheezes/rhonchi/rales. HEART: Regular rate and rhythm, no murmurs. No ectopy. EXTREMITIES: Normal, No deformities, No skin discoloration, No edema. NEURO: Awake, alert and oriented x3, cranial nerves II-XII grossly intact, normal gait, no involuntary motions Tests (Today) MMSE: - Score: 26 - Improved clock drawing performance compared with previous test Assessment and Plan 1. Mild cognitive impairment (G31.84) Patient demonstrates improvement in cognitive function, as evidenced by improved performance on the MOCA (score of 26) which is in the normal range, compared to MMSE a few months ago which was equivalent to 21 on the MMSE She remains largely independent in activities of daily living, including medication management and finances, with some assistance from her brother for transportation and heavy lifting. Brother notes significant improvement in cognitive and over all wellbeing - Continue current medication regimen at 10 mg, which is the maximum dose; no changes at this time. - Discussed that [id number] brain pills are not recommended as alternatives to current therapy. - Follow-up in 6 months to reassess cognitive function and overall status. 2. Hidradenitis suppurativa (L73.2) Chronic condition with recurrent lesions in the groin area; patient is currently managed with doxycycline and is being evaluated for surgical intervention by dermatology and surgery teams. - Continue doxycycline as prescribed. - Await further recommendations from dermatology and surgery teams regarding potential surgical intervention. 3. Hyperlipidemia, mixed (E78.2) - Cholesterol is well controlled on pravastatin 4. Essential hypertension, benign (I10) - Adviced to taper blood pressure medications 5. Tinnitus of both ears (H93.13) - could be related to jaw issue. Voice recognition so (more content not included)... [facility] 07-13-2025 History of Presen t illness Narrative Reason for Visit Follow up HPI Mónica Decker is a 75-year-old female, with a history of hidradenitis suppurativa, hypothyroidism, essential hypertension, hyperlipidemia, presenting for follow-up. Mónica recently underwent a surgical consultation for hidradenitis suppurativa on Friday. She reports that the condition is slowly progressing, getting closer to cure, but acknowledges that it can recur. She has a history of similar issues during her teenage years, which she attributes to riding horses bareback and exposure to dirt and sweat. At that time, she managed the condition by cleaning the affected areas with alcohol and using pimple cream. Currently, she is taking doxycycline as part of her treatment regimen. Mónica also has a history of thickened toenails, for which she has been seeing a air breaker operator. She reports that the air breaker operator has been trimming the nails to prevent further growth and complications. In addition to her dermatological issues, Mónica has been experiencing diarrhea, which she does not find debilitating. Its not clear if the diarrhea if from doxy or aricept/ Mónica has been taking a 10 mg aricept, which has shown significant improvement in her cognitive function. Her brother notes a big improvement in her cognitive abilities, She is able to take care of herself, manage her own medications, and pay her own bills. She lives alone and takes care of multiple cats and other animals. She can drive short distances but relies on her caregiver for longer trips and heavy lifting. She uses a cane for balance and is working on improving her knee flexibility. SOCIAL HISTORY[1] Past medical history, appointments, medications, allergies reviewed. Pertinent Lab/Diagnostic Studies are reviewed and discussed today Current Outpatient Medications: potassium chloride 20 mEq TbER allopurinol (ZYLOPRIM) 300 mg tablet amLODIPine (NORVASC) 10 mg tablet furosemide (LASIX) 40 mg tablet lisinopril (ZESTRIL) 40 mg tablet pravastatin (PRAVACHOL) 10 mg tablet donepezil (ARICEPT) 10 mg tablet levothyroxine (LEVOXYL) 150 mcg tablet cyanocobalamin (VITAMIN B-12) 1,000 mcg tab doxycycline (VIBRA-TABS) 100 mg tablet silver sulfADIAZINE (SILVADENE) 1 % cream acetaminophen (TYLENOL) 500 mg tablet polyethylene glycol 3350 17 gram packet Health Maintenance Advance Directive Discussion Depression Screening Anxiety Screening@ Review Of Systems Ears/Nose/Mouth/Throat: (+) tinnitus Gastrointestinal: (+) diarrhea Skin: (+) groin sores, (+) groin pain, (+) groin drainage Neurological: (+) spatial disorientation Physical Exam BP 91/56 Pulse (!) 59 Resp 16 Wt 68.4 kg (150 lb 12.8 oz) BMI 29.45 kg/m GENERAL: NAD, alert and oriented SKIN: unremarkable, no rash or skin lesions. HEAD: normocephalic EYES: PERRLA, EOMI, conjunctiva clear EARS: external ears normal, canals clear, TM's normal. LUNGS: Clear to auscultation bilaterally, no wheezes/rhonchi/rales. HEART: Regular rate and rhythm, no murmurs. No ectopy. EXTREMITIES: Normal, No deformities, No skin discoloration, No edema. NEURO: Awake, alert and oriented x3, cranial nerves II-XII grossly intact, normal gait, no involuntary motions Tests (Today) MMSE: - Score: 26 - Improved clock drawing performance compared with previous test Assessment and Plan 1. Mild cognitive impairment (G31.84) Patient demonstrates improvement in cognitive function, as evidenced by improved performance on the MOCA (score of 26) which is in the normal range, compared to MMSE a few months ago which was equivalent to 21 on the MMSE She remains largely independent in activities of daily living, including medication management and finances, with some assistance from her brother for transportation and heavy lifting. Brother notes significant improvement in cognitive and over all wellbeing - Continue current medication regimen at 10 mg, which is the maximum dose; no changes at this time. - Discussed that vuzd-leo-umztulj brain pills are not recommended as alternatives to current therapy. - Follow-up in 6 months to reassess cognitive function and overall status. 2. Hidradenitis suppurativa (L73.2) Chronic condition with recurrent lesions in the groin area; patient is currently managed with doxycycline and is being evaluated for surgical intervention by dermatology and surgery teams. - Continue doxycycline as prescribed. - Await further recommendations from dermatology and surgery teams regarding potential surgical intervention. 3. Hyperlipidemia, mixed (E78.2) - Cholesterol is well controlled on pravastatin 4. Essential hypertension, benign (I10) - Adviced to taper blood pressure medications 5. Tinnitus of both ears (H93.13) - could be related to jaw issue. Voice recognition software was used to compose this office note. Please excuse any unintended typographical errors. Recording using ambient Broadband Voice software for draft documentation of the visit was discussed with the patient/authorized personal banking representative; all questions welcomed and answered. Patient/authorized personal banking representative agreed to proceed Sarah Ying MD [1] Social History Tobacco Use Smoking status: Never Smokeless tobacco: Never Tobacco comments: Mom used to smoke, quit 2011 Vaping Use Vaping status: Never Used Substance Use Topics Alcohol use: Not Currently Drug use: Never documented in this encounter [facility] 07-13-2025 Instructions Sarah Ying MD - 07/13/2025 11:53 AM EDT We discussed your hidradenitis suppurativa: - This condition involves sores in the groin area caused by inflamed sweat glands. Surgery to remove the affected sweat glands is being considered as part of your treatment plan. You are currently working with a labeling associate and surgeon to determine the next steps. - Continue taking Doxycycline as prescribed to help manage this condition. Let us know if you experience any worsening symptoms or side effects. We discussed your cognitive health: - Your recent cognitive test (MMSE) showed significant improvement compared to your previous results. This indicates that your current treatment plan is helping. - Continue taking your current medications as prescribed. The dosage will remain the same, as you are tolerating it well without significant side effects. - Please continue to monitor your cognitive function and let us know if you notice any changes. We discussed your mobility and walking: - Your walking has improved, and you are now able to walk short distances without a cane. The cane is currently being used more for balance than weight support. - Continue walking and staying active to improve knee flexibility and strength. Activities like caring for your animals and daily movement will help with this. We discussed your overall independence: - You are managing your medications, finances, and daily activities independently. Continue to let us know if you need any additional support. Follow-up: - I will see you again in 6 months to monitor your progress. - You have an appointment with Dr. Gardner in 2 weeks. Please follow up with them as scheduled. If you have any new or worsening symptoms, or if you have questions about your care plan, please contact our office. documented in this encounter [facility] 07-08-2025 Progress note Note Date/Time July 08, 2025 11:19am [facility] [address] [place] [address] Progress Note - Wound Care 07/08/25 1114 MR#: [id number] Acct: [id number] Name: MÓNICA DECKER Rep #:[id number] : 1950 75 From: Rachna Galvez DO PCP: Dr. Mateo Marmolejo MD Status:REG RCR Location: History of Present Illness Date of Service: 07/08/25 Chief Complaint: Nonhealing ulcers of groin area History of Wound: Mónica is a pleasant 75 yo woman that presents to the wound healing center for evaluation and treatment recommendations for nonhealing ulcers that are in her bilateral groin folds that have been present and waxed and waned in severity for 13 years. She reports that she has also had urinary incontinence that started around that time as well and she has been wearing disposable incontinence pads daily since then. She reports that the areas bleed and drain pratt fluid intermittently. At some points there have been 5 spots of blood and currently there is about 2. She is otherwise uncomplicated and does not have history of diabetes. She denies fever, chills, erythema, increased drainage and odor. She has some cognitive impairment which is due to dementia. Her brother Gerson accompanies her today and helps somewhat with the history and reinforcement of instructions. She has been being seen by Dr. Eugene and referred for consultation regarding anymedical management recommendations. She was evaluated by MANAGER CAFE for possible Bartholin cyst but this was not felt to be an underlying cause. She sees Dr. Townsend for dermatology and is on Spironolactone. I saw her previously in July 2024 for similar complaints and she was referredto urology for urinary incontinence evaluation. 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 Subjective Subjective Mónica returns today for evaluation and treatment of hidradenitis suppurativa. She has been using Dakins solution wet to dry dressings to the groin areas and has had improvement in the drainage and discomfort. She is a poor historian. Shedoes deny increased draining, bleeding or redness. She has an appointment scheduled with Dr. Albrecht for surgical consult on 07/11/25. Objective Data Objective Data Vital Signs: Vital Signs Temp Pulse Resp BP 97 F L 83 18 125/75 H 07/08/25 10:47 07/08/25 10:47 07/08/25 10:47 07/08/25 10:47 Physical Exam Const alert, no apparent distress and healthy appearing General Appearance: cooperative and comfortable Nutritional Appearance: obese HEENT normocephalic and head/scalp atraumatic Resp normal respiratory effort Effort and Inspection: able to speak in complete sentences Cardio regular rate and regular rhythm Skin Skin Narrative: hypertrophic thickened skin of creases of groin bilaterally with some open areasthat appear to be cystic consistent with hidradenitis, no drainage and no sloughpresent, right labia enlarged and swollen with no current purulent drainage ableto be expressed from multiple openings Wounds: wounds noted Wound Narrative: as in clinical panel Neuro no focal motor deficits Psych mental status grossly normal, thought process normal, cooperative and affect normal Debridement Note Debridement Note Wound debrided: Left groin hidradenitis wound Laterality: Left No debridement was completed: No debridement was completed today Post-Debridement Measurements and Additional Note: Post-Debridement Measurements/Treatment - Nurse 1 - General Ulcer Assessment Start: 07/08/25 10:47 Freq: Status: Active Protocol: JOSE ELIAS Activity Type Activity Date Activity User E-sign Co-sign Detail Recorded Client Recorded Date Recorded By Document 07/08/25 10:47 TANESHA [id number] 07/08/25 10:51 RB 07/08/25 10:47 - Today's Visit Information Type of service Follow-up Visit (Physician/FINISHING TUNNEL OPERATOR ) Arrival Mode Ambulatory Transfer Assistance None Patient Identification Verified (Name & Yes ) Patient Requires Transmission-Based No Precautions Vital Signs Temperature (97.8 F-99.1 F) 97 F L Temperature Source Temporal Pulse Rate (60-100) 83 Pulse Location Monitor Respiratory Rate (12-18) 18 Respiratory rate source Observation Blood Pressure (90/60-120/80) 125/75 H Blood Pressure Mean (mm Hg) 91 Source Monitor Position Semi-Fowlers Blood Pressure Location Left Arm History Since Last Visit- (Skip if this is Patient's initial visit) Have you changed medications since your No last visit? Any new allergies or adverse reactions No Had a fall/change in ADL's that may No increase risk of falls Signs or symptoms of abuse and/or No neglect since last visit Have you been in the hospital since your No last visit? Has dressing in place as prescribed Yes Has compression in place as prescribed N/A Has offloadiing in place as prescribed N/A Experienced any changes in pain level or No management Pain Scale: 0-10 Numeric Is Patient Pain Free? Yes WC - Nurse 1 - General Ulcer Measurement Start: 07/08/25 10:47 Freq: Status: Active Protocol: Activity Type Activity Date Activity User E-sign Co-sign Detail Recorded Client Recorded Date Recorded By Document 07/08/25 10:47 TANESHA [id number] 07/08/25 10:51 RB 07/08/25 10:47 Wound Center Nurse 1 2. R groin -Combined with other wound No -Current Size (cm) - Length 0.1 -Current Size (cm) - Width 0.1 -Current Size (cm) - Depth 0.1 -Total Square Cm 0.01 -Photo Taken Yes -Tunneling No -Undermining/Tunneling No -Circular Undermining No -Exudate Amt Small -Exudate Type Serosanguineous -Wound Margin Distinct, Outline Attached -Granulation Amt Large (67-100%) -Granulation Quality Red -Slough/Fibrin Yes -Necrosis Amt Small (1-33%) -Necrotic Tissue Type Adherent Slough -Structure Exposed N/A -Texture (Carol-wound Skin Appearance) Assessed, Excoriation -Moisture (Carol-wound Skin Appearance) Assessed -Color (Carol-wound Skin Appearance) Assessed -Temperature (Carol-wound Skin No Abnormality Appearance) (Pt Warm) -Tenderness on Palpation (Carol-wound No Skin Appearance) -Ulcer Cleansing Wound Cleanser -Foul Odor after Cleansing No 1. L groin -Combined with other wound No -Current Size (cm) - Length 0.1 -Current Size (cm) - Width 0.1 -Current Size (cm) - Depth 0.1 -Total Square Cm 0.01 -Photo Taken Yes -Tunneling No -Undermining/Tunneling No -Circular Undermining No -Exudate Amt Small -Exudate Type Serosanguineous -Wound Margin Distinct, Outline Attached -Granulation Amt Large (67-100%) -Granulation Quality Red -Slough/Fibrin Yes -Necrosis Amt Small (1-33%) -Necrotic Tissue Type Adherent Slough -Structure Exposed N/A -Texture (Carol-wound Skin Appearance) Assessed, Excoriation -Moisture (Carol-wound Skin Appearance) Assessed -Color (Carol-wound Skin Appearance) Assessed -Temperature (Carol-wound Skin No Abnormality Appearance) (Pt Warm) -Tenderness on Palpation (Carol-wound No Skin Appearance) -Ulcer Cleansing Wound Cleanser -Foul Odor after Cleansing No WC - Nurse 2 - General Ulcer CM Notes Start: 07/08/25 10:47 Freq: Status: Active Protocol: Activity Type Activity Date Activity User E-sign Co-sign Detail Recorded Client Recorded Date Recorded By Document 07/08/25 11:00 [id number] 07/08/25 11:05 07/08/25 11:00 Wound Center Nurse 2 2. R groin -Time 11:00 -Correct Patient Yes -Correct Side, Site, Position Yes -Correct Procedure No -Procedure Performed No -Tunneling No -Undermining/Tunneling No -Circular Undermining No -Wound/Ulcer Outcome Not Healed -Ulcer Cleansing Not Cleansed -Foul Odor after Cleansing No -Bioengineered Tissue No -Bleeding Controlled with NA -Offloading No 1. L groin -Time 11:01 -Correct Patient Yes -Correct Side, Site, Position Yes -Correct Procedure No -Procedure Performed No -Tunneling No -Undermining/Tunneling No -Circular Undermining No -Wound/Ulcer Outcome Not Healed -Ulcer Cleansing Not Cleansed -Foul Odor after Cleansing No -Bioengineered Tissue No -Bleeding Controlled with NA -Offloading No Pain Scale: 0-10 Numeric Is Patient Pain Free? Yes WC - Nurse 3 - General Ulcer D/C NN Start: 07/08/25 10:47 Freq: Status: Active Protocol: Activity Type Activity Date Activity User E-sign Co-sign Detail Recorded Client Recorded Date Recorded By Document 07/08/25 11:10 NIMESH [id number] 07/08/25 11:11 NIMESH 07/08/25 11:10 Wound Care Center Nurse 3 2. R groin -Other Dressing dakins -Primary Dressing Covered/Secured with Dry Gauze, Secured with Tape 1. L groin -Other Dressing dakins -Primary Dressing Covered/Secured with Dry Gauze, Secured with Tape Pain Scale: 0-10 Numeric Is Patient Pain Free? Yes WC - Visit Discharge Discharge Condition Stable Ambulatory Status Ambulatory Transportation Private Auto Medication Reconcilliation completed & No provided to patient/care provider Clinical Summary of Care Provided Yes Additional Wound Wound debrided: right hidradenitis ulcer Laterality: Right Operative Diagnosis: No debridement completed today Assessment/Plan Assessment/Plan (1) Skin ulcer of right groin with fat layer exposed: CODE(S): L98.492 - Non-pressure chronic ulcer of skin of other sites with fat layer exposed (2) Ulcer of left groin with fat layer exposed: CODE(S): L98.492 - Non-pressure chronic ulcer of skin of other sites with fat layer exposed (3) Hidradenitis suppurativa: CODE(S): L73.2 - Hidradenitis suppurativa (4) Hypothyroidism: CODE(S): E03.9 - Hypothyroidism, unspecified QUALIFIERS: Hypothyroidism type: unspecified Qualified Code(s): E03.9 - (5) HTN (hypertension): CODE(S): I10 - Essential (primary) hypertension QUALIFIERS: Hypertension type: essential hypertension Qualified Code(s): I10 - Essential (primary) hypertension (6) Obesity: CODE(S): E66.9 - Obesity, unspecified QUALIFIERS: Obesity type: due to excess calories Obesity classification: adult class 2 (BMI 35 - 39.9) Serious obesity comorbidity presence:without serious comorbidity Body mass index: BMI 35.0-35.9 Qualified Code(s): E66.812 - Obesity, class 2; E66.09 - Other obesity due to excess calories; Z68.35 - Body mass index [BMI] 35.0-35.9, adult PLAN: Plan PLAN: Evaluation performed today in clinic as annotated above. At home wound-care instructions: The patient will wash with antibacterial soap and water and then apply Dakins wet to dry dressings. Encouraged her to use baby wipes instead of rubbing alcohol to clean skin after using bathroom. Keep dressing clean and dry. Will consider having her use Acetic acid rinse to her groin area twice daily if Dakins wet to dry is not effective. Reiterated to both the patient and her brother, Gerson, that the hidradenitis is a chronic condition and there is a spectrum of treatments but it will not be cured and will involve periodic flare ups. We discussed referral to dermatology to discuss biologic treatment options and that surgical excision of the HS is also an option for treatment. Will discuss her case with Dr. Townsend regarding DMARDs treatment and referral given for surgical opinion to Dr. Albrecht in [place] as he has treated several of my HS patients surgically. She is scheduled for this on 07/11/25. Discussed the importance of treating the incontinence and to follow up as scheduled with urology regarding work up and options for treatment. Also discussed trying ABD pads in her underwear instead of incontinence pads due to the irritation that plastic may cause to her skin or trying reusable, washable cotton underpads. Educated patient on the chronicity of hidradenitis and encouraged continued weight loss. Off-loading: The patient was instructed to avoid pressure and friction on the affected areas. Reposition every 2 hours at minimum. Avoid prolonged standing and/or dangling of legs. When seated, feet should be elevated at chest level. Frequent ambulation is encouraged. Diet: Patient encouraged to increase protein intake while taking caution to avoid high carbohydrate and/or sugar intake. Labs/cultures/imaging: Follow-up: Will have her return in 4 weeks. She was advised to call or go to ER if increased drainage, pain, bleeding or worsening. 07/08/25 9881 <Electronically signed by Rachna Galvez DO> Cosigner Signature (if applicable): CC: ~ Signed [facility] Work Phone: [phone]) 783-101409-12-2025 Progress note [facility] [address] [place] [address] Progress Note - Wound Care 07/08/25 1111 MR#: [id number] Acct: [id number] Name: MÓNICA DECKER Rep #:[id number] : 1950 75 From: Rachna Galvez DO PCP: Dr. Mateo Marmolejo MD Status:REG RCR Location: History of Present Illness Date of Service: 07/08/25 Chief Complaint: Nonhealing ulcers of groin area History of Wound: Mónica is a pleasant 75 yo woman that presents to the wound healing center for evaluation and treatment recommendations for nonhealing ulcers that are in her bilateral groin folds that have been present and waxed and waned in severity for 13 years. She reports that she has also hadurinary incontinence that started around that time as well and she has been wearing disposable incontinence pads daily since then. She reports that the areas bleed and drain pratt fluid intermittently. At some points there have been 5 spots of blood and currently there is about 2. She is otherwise uncomplicated and does not have history of diabetes. She denies fever, chills, erythema, increased gabriel inage and odor. She has some cognitive impairment which is due to dementia. Her brother Gerson accompanies her today and helps somewhat with the history and reinforcement of instructions. She has been being seen by Dr. Eugene and referred for consultation regarding anymedical management recommendations. She was evaluated by MANAGER CAFE for possible Bartholin cyst but this was not felt to be anunderlying cause. She sees Dr. Townsend for dermatology and is on Spironolactone. I saw her previously in July 2024 for similar complaints and she was referredto urology for urinary incontinence evaluation. 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 Subjective Subjective Mónica returns today for evaluation and treatment of hidradenitis suppurativa. She has been using Dakins solution wet to dry dressings to the groin areas and has had improvement in the drainage and discomfort. She is a poor historian. Shedoes deny increased draining, bleeding or redness. She has an appointment scheduled with Dr. Albrecht for surgical consult on 07/11/25. Objective Data Objective Data Vital Signs: Vital Signs Temp Pulse Resp BP 97 F L 83 18 125/75 H 07/08/25 10:47 07/08/25 10:47 07/08/25 10:47 07/08/25 10:47 Physical Exam Const alert, no apparent distress and healthy appearing General Appearance: cooperative and comfortable Nutritional Appearance: obese HEENT normocephalic and head/scalp atraumatic Resp normal respiratory effort Effort and Inspection: able to speak in complete sentences Cardio regular rate and regular rhythm Skin Skin Narrative: hypertrophic thickened skin of creases of groin bilaterally with some open areasthat appear to be cystic consistent with hidradenitis, no drainage and no sloughpresent, right labia enlarged and swollen with no current purulent drainage ableto be expressed from multiple openings Wounds: wounds noted Wound Narrative: as in clinical panel Neuro no focal motor deficits Psych mental status grossly normal, thought process normal, cooperative and affect normal Debridement Note Debridement Note Wound debrided: Left groin hidradenitis wound Laterality: Left No debridement was completed: No debridement was completed today Post-Debridement Measurements and Additional Note: Post-Debridement Measurements/Treatment SHAYNA - Nurse 1 - General Ulcer Assessment Start: 07/08/25 10:47 Freq: Status: Active Protocol: JOSE ELIAS Activity Type Activity Date Activity User E-sign Co-sign Detail Recorded Client Recorded Date Recorded By Document 07/08/25 10:47 TANESHA [id number] 07/08/25 10:51 RB 07/08/25 10:47 - Today's Visit Information Type of service Follow-up Visit (Physician/FINISHING TUNNEL OPERATOR ) Arrival Mode Ambulatory Transfer Assistance None Patient Identification Verified (Name & Yes ) Patient Requires Transmission-Based No Precautions Vital Signs Temperature (97.8 F-99.1 F) 97 F L Temperature Source Temporal Pulse Rate (60-100) 83 Pulse Location Monitor Respiratory Rate (12-18) 18 Respiratory rate source Observation Blood Pressure (90/60-120/80) 125/75 H Blood Pressure Mean (mm Hg) 91 Source Monitor Position Semi-Fowlers Blood Pressure Location Left Arm History Since Last Visit- (Skip if this is Patient's initial visit) Have you changed medications since your No last visit? Any new allergies or adverse reactions No Had a fall/change in ADL's that may No increase risk of falls Signs or symptoms of abuse and/or No neglect since last visit Have you been in the hospital since your No last visit? Has dressing in place as prescribed Yes Has compression in place as prescribed N/A Has offloadiing in place as prescribed N/A Experienced any changes in pain level or No management Pain Scale: 0-10 Numeric Is Patient Pain Free? Yes WC - Nurse 1 - General Ulcer Measurement Start: 07/08/25 10:47 Freq: Status: Active Protocol: Activity Type Activity Date Activity User E-sign Co-sign Detail Recorded Client Recorded Date Recorded By Document 07/08/25 10:47 RB [id number] 07/08/25 10:51 RB 07/08/25 10:47 Wound Center Nurse 1 2. R groin -Combined with other wound No -Current Size (cm) - Length 0.1 -Current Size (cm) - Width 0.1 -Current Size (cm) - Depth 0.1 -Total Square Cm 0.01 -Photo Taken Yes -Tunneling No -Undermining/Tunneling No -Circular Undermining No -Exudate Amt Small -Exudate Type Serosanguineous -Wound Margin Distinct, Outline Attached -Granulation Amt Large (67-100%) -Granulation Quality Red -Slough/Fibrin Yes -Necrosis Amt Small (1-33%) -Necrotic Tissue Type Adherent Slough -Structure Exposed N/A -Texture (Carol-wound Skin Appearance) Assessed, Excoriation -Moisture (Carol-wound Skin Appearance) Assessed -Color (Carol-wound Skin Appearance) Assessed -Temperature (Carol-wound Skin No Abnormality Appearance) (Pt Warm) -Tenderness on Palpation (Carol-wound No Skin Appearance) -Ulcer Cleansing Wound Cleanser -Foul Odor after Cleansing No 1. L groin -Combined with other wound No -Current Size (cm) - Length 0.1 -Current Size (cm) - Width 0.1 -Current Size (cm) - Depth 0.1 -Total Square Cm 0.01 -Photo Taken Yes -Tunneling No -Undermining/Tunneling No -Circular Undermining No -Exudate Amt Small -Exudate Type Serosanguineous -Wound Margin Distinct, Outline Attached -Granulation Amt Large (67-100%) -Granulation Quality Red -Slough/Fibrin Yes -Necrosis Amt Small (1-33%) -Necrotic Tissue Type Adherent Slough -Structure Exposed N/A -Texture (Carol-wound Skin Appearance) Assessed, Excoriation -Moisture (Carol-wound Skin Appearance) Assessed -Color (Carol-wound Skin Appearance) Assessed -Temperature (Carol-wound Skin No Abnormality Appearance) (Pt Warm) -Tenderness on Palpation (Carol-wound No Skin Appearance) -Ulcer Cleansing Wound Cleanser -Foul Odor after Cleansing No - Nurse 2 - General Ulcer CM Notes Start: 07/08/25 10:47 Freq: Status: Active Protocol: Activity Type Activity Date Activity User E-sign Co-sign Detail Recorded Client Recorded Date Recorded By Document 07/08/25 11:00 [id number] 07/08/25 11:05 07/08/25 11:00 Wound Center Nurse 2 2. R groin -Time 11:00 -Correct Patient Yes -Correct Side, Site, Position Yes -Correct Procedure No -Procedure Performed No -Tunneling No -Undermining/Tunneling No -Circular Undermining No -Wound/Ulcer Outcome Not Healed -Ulcer Cleansing Not Cleansed -Foul Odor after Cleansing No -Bioengineered Tissue No -Bleeding Controlled with NA -Offloading No 1. L groin -Time 11:01 -Correct Patient Yes -Correct Side, Site, Position Yes -Correct Procedure No -Procedure Performed No -Tunneling No -Undermining/Tunneling No -Circular Undermining No -Wound/Ulcer Outcome Not Healed -Ulcer Cleansing Not Cleansed -Foul Odor after Cleansing No -Bioengineered Tissue No -Bleeding Controlled with NA -Offloading No Pain Scale: 0-10 Numeric Is Patient Pain Free? Yes - Nurse 3 - General Ulcer D/C NN Start: 07/08/25 10:47 Freq: Status: Active Protocol: Activity Type Activity Date Activity User E-sign Co-sign Detail Recorded Client Recorded Date Recorded By Document 07/08/25 11:10 [id number] 07/08/25 11:11 07/08/25 11:10 Wound Care Center Nurse 3 2. R groin -Other Dressing dakins -Primary Dressing Covered/Secured with Dry Gauze, Secured with Tape 1. L groin -Other Dressing dakins -Primary Dressing Covered/Secured with Dry Gauze, Secured with Tape Pain Scale: 0-10 Numeric Is Patient Pain Free? Yes - Visit Discharge Discharge Condition Stable Ambulatory Status Ambulatory Transportation Private Auto Medication Reconcilliation completed & No provided to patient/care provider Clinical Summary of Care Provided Yes Additional Wound Wound debrided: right hidradenitis ulcer Laterality: Right Operative Diagnosis: No debridement completed today Assessment/Plan Assessment/Plan (1) Skin ulcer of right groin with fat layer exposed: CODE(S): L98.492 - Non-pressure chronic ulcer of skin of other sites with fat layer exposed (2) Ulcer of left groin with fat layer exposed: CODE(S): L98.492 - Non-pressure chronic ulcer of skin of other sites with fat layer exposed (3) Hidradenitis suppurativa: CODE(S): L73.2 - Hidradenitis suppurativa (4) Hypothyroidism: CODE(S): E03.9 - Hypothyroidism, unspecified QUALIFIERS: Hypothyroidism type: unspecified Qualified Code(s): E03.9 - (5) HTN (hypertension): CODE(S): I10 - Essential (primary) hypertension QUALIFIERS: Hypertension type: essential hypertension Qualified Code(s): I10 - Essential (primary) hypertension (6) Obesity: CODE(S): E66.9 - Obesity, unspecified QUALIFIERS: Obesity type: due to excess calories Obesity classification: adult class 2 (BMI 35 - 39.9) Serious obesity comorbidity presence:without serious comorbidity Body mass index: BMI 35.0-35.9 Qualified Code(s): E66.812 - Obesity, class 2; E66.09 - Other obesity due to excess calories; Z68.35- Body mass index [BMI] 35.0-35.9, adult PLAN: Plan PLAN: Evaluation performed today in clinic as annotated above. At home wound-care instructions: The patient will wash with antibacterial soap and water and then apply Dakins wet to dry dressings.Encouraged her to use baby wipes instead of rubbing alcohol to clean skin after using bathroom. Keep dressing clean and dry. Will consider having her use Acetic acid rinse to her groin area twice daily if Dakins wet to dry is not effective. Reiterated to both the patient and her brother, Gerson, that the hidradenitis is a chronic condition and there is a spectrum of treatments but it will not be cured and will involve periodic flare ups. We discussed referral to dermatology to discuss biologic treatment options and that surgical excision of the HS is also an option for treatment. Will discuss her case with Dr. Townsend regarding DMARDs treatment and referral given for surgical opinion to Dr. Albrecht in [place] as he has treated several of my HS patients surgically. She is scheduled for this on 07/11/25. Discussed the importance of treating the incontinence and to follow up as scheduled with urology regarding work up and options for treatment. Also discussed trying ABD pads in her underwear instead of incontinence pads due to the irritation that plastic may cause to her skin or trying reusable, washable cotton underpads. Educated patient on the chronicity of hidradenitis and encouraged continued weight loss. Off-loading: The patient was instructed to avoid pressure and friction on the affected areas. Reposition every 2 hours at minimum. Avoid prolonged standing and/or dangling of legs. When seated, feet should be elevated at chest level. Frequent ambulation is encouraged. Diet: Patient encouraged to increase protein intake while taking caution to avoid high carbohydrateand/or sugar intake. Labs/cultures/imaging: Follow-up: Will have her return in 4 weeks. She was advised to call or go to ER if increased drainage, pain, bleeding or worsening. 07/08/25 1119 Cosigner Signature (if applicable): CC: ~ Signed [facility]09-11-2025 NoteHNO ID: [id number] Author: LÓPEZ RANDALL, ? Service: ? Author Type: Physician Type: Progress Notes Filed: 07/07/2025 14:58 Note Text: Subjective: Patient presents to clinic c/o painful toenails. They state that the nails are especially painful with shoe gear and pressure. Patient states that nails left 3rd toenail and right 2nd and right 3rd toenail are painful. No other pedal complaints at this time. Patient states no change in medications or medical history since last visit. Objective: Patient presents to clinic ambulating in [facility] Vasc: DP and PT pulses are palpable bilateral. CFT is less than 5 seconds bilateral. Skin temperature is warm to cool proximal to distal bilateral. There is moderate edema or varicosities noted. Neuro: Protective sensation is intact to the foot and toes when tested with the 5.07 SWM bilateral. Vibratory sensation is decreased at the hallux IPJ bilateral. The hallux is downgoing bilateral. Derm: Nails 1-5 b/l are painful, discolored-yellow, thick, crumbly, dystrophic and with subungal debris. Skin is of normal turgor, texture and hair growth is present bilateral. There are callus to b/l 1st metatarsal. No ulceration present. Ortho: Muscle strength is 5/5 for all pedal groups tested. Ankle joint DF is decreased with the knee extended with no pain or crepitus noted. 1st MPJ ROM is decreased bilateral. Large bunion is present to b/l feet. Assessment: (B35.1) Onychomycosis (primary encounter diagnosis) (M79.675) Pain in toe of left foot (M79.674) Pain in toe of right foot Plan: Patient was seen and evaluated. Nails 1-5 bilateral were debrided in length and thickness. Bleed present to left 3rd toenail due to severe deformity/thickening. . Silver nitrate used for hemostasis. Topical antibiotic applied. Discussed removal of toenails in future via chemical matrixectomy. This patient is not interested in chemical matrixectomy. Callus reduced with dremmel to b/l feet Follow-up in 2 months or sooner if problems arise [facility] of Present illness Narrative* López Randall - 07/07/2025 2:01 PM EDT Subjective: Patient presents to clinic c/o painful toenails. They state that the nails are especially painful with shoe gear and pressure. Patient states that nails left 3rd toenail and right 2nd andright 3rd toenail are painful. No other pedal complaints at this time. Patient states no change in medications or medical history since last visit. Objective: Patient presents to clinic ambulating in sneakers Vasc: DP and PT pulses are palpable bilateral. CFT is less than 5 seconds bilateral. Skin temperature is warm to cool proximal to distal bilateral. There is moderate edema or varicosities noted. Neuro: Protective sensation is intact to the foot and toes when tested with the 5.07 SWM bilateral.Vibratory sensation is decreased at the hallux IPJ bilateral. The hallux is downgoing bilateral. Derm: Nails 1-5 b/l are painful, discolored-yellow, thick, crumbly, dystrophic and with subungal debris. Skin is of normal turgor, texture and hair growth is present bilateral. There are callus to b/l 1st metatarsal. No ulceration present. Ortho: Muscle strength is 5/5 for all pedal groups tested. Ankle joint DF is decreased with the knee extended with no pain or crepitus noted. 1st MPJ ROM is decreased bilateral. Large bunion is present to b/l feet. Assessment: (B35.1) Onychomycosis (primary encounter diagnosis) (M79.675) Pain in toe of left foot (M79.674) Pain in toe of right foot Plan: Patient was seen and evaluated. Nails 1-5 bilateral were debrided in length and thickness. Bleed present to left 3rd toenail due to severe deformity/thickening. . Silver nitrate used for hemostasis. Topical antibiotic applied. Discussed removal of toenails in future via chemical matrixectomy. This patient is not interested in chemical matrixectomy. Callus reduced with dremmel to b/l feet Follow-up in 2 months or sooner if problems arise DEEPALI Nye DPM * Purvi Paz MA - 07/07/2025 1:51 PM EDT Patient presents with: Right Foot - Established Patient, Nail care Left Foot - Established Patient, Nail care AMB ROOMING INTAKE FLOWSHEET DATA Patient here for nail care today. [facility] NoteHNO ID: [id number] Author: PURVI PAZ MA Service: ? Author Type: Deli Associate Type: Progress Notes Filed: 07/07/2025 14:58 Note Text: Patient presents with: Right Foot - Established Patient, Nail care Left Foot - Established Patient, Nail care AMB ROOMING INTAKE FLOWSHEET DATA Patient here for nail care today.[facility]09-08-2025 Telephone encounter Note* Telephone Encounter - Vernell Bernardo RN - 07/04/2025 11:21 AM EDT The patient has been identified by name and date of : Yes Caregiver verified no other encounters exist for this prescription request: Yes Caregiver confirmed with patient/requestor that no other refills are due, in the near future, with this provider at this time: Yes The last office visit in the department: 02/01/2025 Does the patient have a future office visit with this provider/department: Yes 07/22/2025 Requested Prescriptions Pending Prescriptions Disp Refills potassium chloride 20 mEq TbER 90 tablet 3 Sig: Take 1 tablet by mouth once daily. Vernell Bernardo RN July 04, 2025 11:21 AM [facility]09-08-2025 Miscellaneous Notes* Telephone Encounter - Vernell Bernardo RN - 07/04/2025 11:21 AM EDT The patient has been identified by name and date of : Yes Caregiver verified no other encounters exist for this prescription request: Yes Caregiver confirmed with patient/requestor that no other refills are due, in the near future, with this provider at this time: Yes The last office visit in the department: 02/01/2025 Does the patient have a future office visit with this provider/department: Yes 07/22/2025 Requested Prescriptions Pending Prescriptions Disp Refills potassium chloride 20 mEq TbER 90 tablet 3 Sig: Take 1 tablet by mouth once daily. Vernell Bernardo RN July 04, 2025 11:21 AM documented in this encounterOhio[facility]08-[facility]-2025 Telephone encounter Note * Telephone Encounter - Kelvin Dietrich LPN - 06/13/2025 10:23 AM EDT Left word for word of below message from Dr Marmolejo on Bev's confidential voice mail. Advised her to call and speak with a Triage Nurse if any questions. Kelvin Dietrich LPN [facility]08-18-2025 Miscellaneous Notes* Telephone Encounter - Kelvin Dietrich LPN - 06/13/2025 10:23 AM EDT Left word for word of below message from Dr Marmolejo on Bev's confidential voice mail. Advised her to call and speak with a Triage Nurse if any questions. Kelvin Dietrich LPN * Telephone Encounter - Mateo Marmolejo MD - 06/11/2025 12:59 PM EDT No I won't. I have not sen her since 06/2024 and it sounds like these orders for HHC are related to her wound care and I'm not managing any of it. * Telephone Encounter - Monty Minor RN - 06/09/2025 3:03 PM EDT Bev- [facility]- reports pt is due for recert now, and [facility] got involved with patient through the wound center. 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 Reports Dr. Eugene was signing orders, and Bev asked him to sign the 485, but he said he wouldn't because he hasn't seen patient in a couple weeks and advised Bev to ask Dr. Be to sign the [address]. [address] Be has only been at the wound center for a couple weeks. Bev asking if Dr. Marmolejo would sign the 485? Please advise Bev: [phone] documented in this encounterOhio[facility]08-16-2025 Telephone encounter Note * Telephone Encounter - Mateo Marmolejo MD - 06/11/2025 12:59 PM EDT No I won't. I have not sen her since 06/2024 and it sounds like these orders for HHC are related to her wound care and I'm not managing any of it. [facility]08-15-2025 Progress note Author Rachna Malys [facility] Note Date/Time June 10, 2025 2: 55pm [facility] [address] [place] [address] Progress Note - Wound Care 06/10/25 1452 MR#: [id number] Acct: [id number] Name: MÓNICA DECKER Rep #:[id number] : 1950 75 From: Rachna Galvez DO PCP: Dr. Mateo Marmolejo MD Status:REG RCR Location: History of Present Illness Date of Service: 06/10/25 Chief Complaint: Nonhealing ulcers of groin area History of Wound: Mónica is a pleasant 75 yo woman that presents to the wound healing center for evaluation and treatment recommendations for nonhealing ulcers that are in her bilateral groin folds that have been present and waxed and waned in severity for 13 years. She reports that she has also had urinary incontinence that started around that time as well and she has been wearing disposable incontinence pads daily since then. She reports that the areas bleed and drain pratt fluid intermittently. At some points there have been 5 spots of blood and currently there is about 2. She is otherwise uncomplicated and does not have history of diabetes. She denies fever, chills, erythema, increased drainage and odor. She has some cognitive impairment which is due to dementia. Her brother Gerson accompanies her today and helps somewhat with the history and reinforcement of instructions. She has been being seen by Dr. Eugene and referred for consultation regarding anymedical management recommendations. She was evaluated by MANAGER CAFE for possible Bartholin cyst but this was not felt to be an underlying cause. She sees Dr. Townsend for dermatology and is on Spironolactone. I saw her previously in July 2024 for similar complaints and she was referredto urology for urinary incontinence evaluation. 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 Subjective Subjective Mónica returns today for evaluation and treatment of hidradenitis suppurativa. She has been using Dakins solution wet to dry dressings to the groin areas and has had improvement in the drainage and discomfort. She is a poor historian. Shedoes deny increased draining, bleeding or redness. She does not have an appointment scheduled yet with Dr. Albrecht for surgical consult. Objective Data Objective Data Vital Signs: Vital Signs Temp Pulse Resp BP O2 Del Method 98.2 F 78 16 101/68 Room Air 06/10/25 10:22 06/10/25 10:22 06/10/25 10:22 06/10/25 10:22 05/27/25 10:52 Oxygen Delivery Method Room Air Physical Exam Const alert, no apparent distress and healthy appearing General Appearance: cooperative and comfortable Nutritional Appearance: obese HEENT normocephalic and head/scalp atraumatic Resp normal respiratory effort Effort and Inspection: able to speak in complete sentences Cardio regular rate and regular rhythm Skin Skin Narrative: hypertrophic thickened skin of creases of groin bilaterally with some open areasthat appear to be cystic consistent with hidradenitis, no drainage and no sloughpresent, right labia enlarged and swollen with no current purulent drainage ableto be expressed from multiple openings Wounds: wounds noted Wound Narrative: as in clinical panel Neuro no focal motor deficits Psych mental status grossly normal, thought process normal, cooperative and affect normal Debridement Note Debridement Note Wound debrided: Left groin hidradenitis wound Laterality: Left No debridement was completed: No debridement was completed today Post-Debridement Measurements and Additional Note: Post-Debridement Measurements/Treatment - Nurse 1 - General Ulcer Assessment Start: 05/27/25 10:51 Freq: Status: Active Protocol: JOSE ELIAS Activity Type Activity Date Activity User E-sign Co-sign Detail Recorded Client Recorded Date Recorded By Document 05/27/25 10:52 KW [id number] 05/27/25 11:05 KW Document 06/10/25 10:22 DL [id number] 06/10/25 10:30 DL 05/27/25 06/10/25 10:52 10:22 - Today's Visit Information Type of service Follow-up Visit Follow-up Visit (Physician/FINISHING TUNNEL OPERATOR (Physician/FINISHING TUNNEL OPERATOR ) ) Arrival Mode Ambulatory Ambulatory,Cane Transfer Assistance None Patient Identification Verified (Name & Yes Yes ) Patient Requires Transmission-Based No Precautions Vital Signs Temperature (97.8 F-99.1 F) 96.8 F L 98.2 F Temperature Source Temporal Temporal Pulse Rate (60-100) 68 78 Pulse Location Monitor Monitor Respiratory Rate (12-18) 16 16 Respiratory rate source Observation Observation Oxygen Delivery Method Room Air Blood Pressure (90/60-120/80) 112/55 L 101/68 Blood Pressure Mean (mm Hg) 74 79 Source Monitor Position Sitting Blood Pressure Location Left Arm History Since Last Visit- (Skip if this is Patient's initial visit) Have you changed medications since your No No last visit? Any new allergies or adverse reactions No No Had a fall/change in ADL's that may No No increase risk of falls Signs or symptoms of abuse and/or No No neglect since last visit Have you been in the hospital since your No No last visit? Has dressing in place as prescribed Yes Yes Has compression in place as prescribed N/A N/A Has offloadiing in place as prescribed N/A N/A Experienced any changes in pain level or No No management Left Footwear Regular Shoe Right Footwear Regular Shoe Pain Scale: 0-10 Numeric Is Patient Pain Free? Yes Yes WC - Nurse 1 - General Ulcer Measurement Start: 05/27/25 10:51 Freq: Status: Active Protocol: Activity Type Activity Date Activity User E-sign Co-sign Detail Recorded Client Recorded Date Recorded By Document 05/27/25 10:52 KW [id number] 05/27/25 11:05 KW Document 06/10/25 10:22 DL [id number] 06/10/25 10:30 DL 05/27/25 06/10/25 10:52 10:22 Wound Center Nurse 1 2. R groin -Current Size (cm) - Length 0.1 -Current Size (cm) - Width 0.1 -Current Size (cm) - Depth 0.1 -Total Square Cm 0.01 -Exudate Amt Large Medium -Exudate Type Yellow/Green Yellow/Green -Wound Margin Distinct, Indistinct, Non Outline -Visible Attached -Granulation Amt Large (67-100%) Large (67-100%) -Granulation Quality Hyper- [place] granulation,Red -Necrosis Amt None Present (0 %) -Structure Exposed N/A -Texture (Carol-wound Skin Appearance) Assessed Localized Edema ,Scarring -Moisture (Carol-wound Skin Appearance) Assessed Weeping -Color (Carol-wound Skin Appearance) Assessed, No Abnormality Erythema -Temperature (Carol-wound Skin No Abnormality No Abnormality Appearance) (Pt Warm) (Pt Warm) -Tenderness on Palpation (Carol-wound No No Skin Appearance) -Ulcer Cleansing Rinsed/ Soap and Water Irrigated with Saline -Foul Odor after Cleansing No No -Anesthetic Used 5% Lidocaine 5% Lidocaine Gel Gel 1. L groin -Current Size (cm) - Length 0.1 -Current Size (cm) - Width 0.1 -Current Size (cm) - Depth 0.1 -Total Square Cm 0.01 -Exudate Amt Large Medium -Exudate Type Yellow/Green Yellow/Green -Wound Margin Indistinct, Non -Visible -Granulation Amt Large (67-100%) Large (67-100%) -Granulation Quality Hyper- [place] granulation,Red -Necrosis Amt None Present (0 %) -Structure Exposed N/A -Texture (Carol-wound Skin Appearance) Assessed Localized Edema ,Scarring -Moisture (Carol-wound Skin Appearance) Assessed Weeping -Color (Carol-wound Skin Appearance) Assessed No Abnormality -Temperature (Carol-wound Skin No Abnormality No Abnormality Appearance) (Pt Warm) (Pt Warm) -Tenderness on Palpation (Carol-wound No Skin Appearance) -Ulcer Cleansing Rinsed/ Soap and Water Irrigated with Saline -Foul Odor after Cleansing No No -Anesthetic Used 5% Lidocaine 5% Lidocaine Gel Gel WC - Nurse 2 - General Ulcer CM Notes Start: 05/27/25 10:51 Freq: Status: Active Protocol: Activity Type Activity Date Activity User E-sign Co-sign Detail Recorded Client Recorded Date Recorded By Document 05/27/25 12:13 [id number] 05/27/25 12:19 Document 06/10/25 11:25 [id number] 06/10/25 11:31 05/27/25 06/10/25 12:13 11:25 Wound Center Nurse 2 2. R groin -Time 12:13 11:25 -Correct Patient Yes Yes -Correct Side, Site, Position Yes Yes -Correct Procedure No No -Procedure Performed No No -Tunneling No -Undermining/Tunneling No -Circular Undermining No -Wound/Ulcer Outcome Not Healed Not Healed -Ulcer Cleansing Not Cleansed Not Cleansed -Foul Odor after Cleansing No No -Bioengineered Tissue No -Bleeding Controlled with NA NA -Offloading No 1. L groin -Time 12:16 11:28 -Correct Patient Yes Yes -Correct Side, Site, Position Yes Yes -Correct Procedure No No -Procedure Performed No No -Tunneling No -Undermining/Tunneling No -Circular Undermining No -Wound/Ulcer Outcome Not Healed -Ulcer Cleansing Not Cleansed Not Cleansed -Foul Odor after Cleansing No No -Bioengineered Tissue No -Bleeding Controlled with NA NA -Treatment Response Procedure Tolerated Well -Offloading No Pain Scale: 0-10 Numeric Is Patient Pain Free? Yes Yes - Nurse 3 - General Ulcer D/C NN Start: 05/27/25 10:51 Freq: Status: Active Protocol: Activity Type Activity Date Activity User E-sign Co-sign Detail Recorded Client Recorded Date Recorded By Document 05/27/25 12:31 KW [id number] 05/27/25 12:32 KW Document 06/10/25 11:57 DS [id number] 06/10/25 12:08 DS 05/27/25 06/10/25 12:31 11:57 Wound Care Center Nurse 3 2. R groin -Ulcer Cleansing Not Cleansed -Primary Dressing Applied Hysept -Other Dressing dakins wet to abd pad dry -Primary Dressing Covered/Secured with Dry Gauze, Dry Gauze, Secured with Secured with Tape Tape -Hysept 0 1. L groin -Ulcer Cleansing Not Cleansed -Primary Dressing Applied Hysept -Other Dressing dakins wet to abd pad dry -Primary Dressing Covered/Secured with Dry Gauze, Dry Gauze, Secured with Secured with Tape Tape -Hysept 0 Pain Scale: 0-10 Numeric Is Patient Pain Free? Yes Yes - Visit Discharge Discharge Condition Stable Stable Ambulatory Status Ambulatory,Cane Ambulatory,Cane Transportation Private Auto Private Auto Medication Reconcilliation completed & No provided to patient/care provider Clinical Summary of Care Provided Yes Additional Wound Wound debrided: right hidradenitis ulcer Laterality: Right Operative Diagnosis: No debridement completed today Assessment/Plan Assessment/Plan (1) Skin ulcer of right groin with fat layer exposed: CODE(S): L98.492 - Non-pressure chronic ulcer of skin of other sites with fat layer exposed (2) Ulcer of left groin with fat layer exposed: CODE(S): L98.492 - Non-pressure chronic ulcer of skin of other sites with fat layer exposed (3) Hidradenitis suppurativa: CODE(S): L73.2 - Hidradenitis suppurativa (4) Hypothyroidism: CODE(S): E03.9 - Hypothyroidism, unspecified QUALIFIERS: Hypothyroidism type: unspecified Qualified Code(s): E03.9 - (5) HTN (hypertension): CODE(S): I10 - Essential (primary) hypertension QUALIFIERS: Hypertension type: essential hypertension Qualified Code(s): I10 - Essential (primary) hypertension (6) Obesity: CODE(S): E66.9 - Obesity, unspecified QUALIFIERS: Obesity type: due to excess calories Obesity classification: adult class 2 (BMI 35 - 39.9) Serious obesity comorbidity presence: without serious comorbidity Body mass index: BMI 35.0-35.9 QualifiedCode(s): E66.812 - Obesity, class 2; E66.09 - Other obesity due to excess calories; Z68.35 - Body mass index [BMI] 35.0-35.9, adult PLAN: Plan PLAN: Evaluation performed today in clinic as annotated above. At home wound-care instructions: The patient will wash with antibacterial soap and water and then apply Dakins wet to dry dressings. Encouraged her to use baby wipes instead of rubbing alcohol to clean skin after using bathroom. Keep dressing clean and dry. Will consider having her use Acetic acid rinse to her groin area twice daily if Dakins wet to dry is not effective. Reiterated to both the patient and her brother, Gerson, that the hidradenitis is a chronic condition and there is a spectrum of treatments but it will not be cured and will involve periodic flare ups. We discussed referral to dermatology to discuss biologic treatment options and that surgical excision of the HS is also an option for treatment. Will discuss her case with Dr. Townsend regarding DMARDs treatment and Dr. Eugene and also offered referral for surgical opinion to Dr. Albrecht in [place] as he has treated several of my HS patients surgically. Discussed the importance of treating the incontinence and to follow up as scheduled with urology regarding work up and options for treatment. Also discussed trying ABD pads in her underwear instead of incontinence pads due to the irritation that plastic may cause to her skin or trying reusable, washable cotton underpads. Educated patient on the chronicity of hidradenitis and encouraged continued weight loss. Off-loading: The patient was instructed to avoid pressure and friction on the affected areas. Reposition every 2 hours at minimum. Avoid prolonged standing and/or dangling of legs. When seated, feet should be elevated at chest level. Frequent ambulation is encouraged. Diet: Patient encouraged to increase protein intake while taking caution to avoid high carbohydrate and/or sugar intake. Labs/cultures/imaging: Follow-up: Will have her return in 4 weeks. She was advised to call or go to ER if increased drainage, pain, bleeding or worsening. 06/10/25 1455 <Electronically signed by Rachna Galvez DO> Cosigner Signature (if applicable): CC: ~ Signed [facility] Work Phone: [phone] Progress note [facility] [address] [place] [address] Progress Note - Wound Care 06/10/25 1452 MR#: [id number] Acct: [id number] Name: MÓNICA DECKER Rep #:[id number] : 1950 75 From: Rachna Galvez DO PCP: Dr. Mateo Marmolejo MD Status:REG RCR Location: History of Present Illness Date of Service: 06/10/25 Chief Complaint: Nonhealing ulcers of groin area History of Wound: Mónica is a pleasant 75 yo woman that presents to the wound healing center for evaluation and treatment recommendations for nonhealing ulcers that are in her bilateral groin folds that have been present and waxed and waned in severity for 13 years. She reports that she has also hadurinary incontinence that started around that time as well and she has been wearing disposable incontinence pads daily since then. She reports that the areas bleed and drain pratt fluid intermittently. At some points there have been 5 spots of blood and currently there is about 2. She is otherwise uncomplicated and does not have history of diabetes. She denies fever, chills, erythema, increased gabriel inage and odor. She has some cognitive impairment which is due to dementia. Her brother Gerson accompanies her today and helps somewhat with the history and reinforcement of instructions. She has been being seen by Dr. Eugene and referred for consultation regarding anymedical management recommendations. She was evaluated by MANAGER CAFE for possible Bartholin cyst but this was not felt to be anunderlying cause. She sees Dr. Townsend for dermatology and is on Spironolactone. I saw her previously in July 2024 for similar complaints and she was referredto urology for urinary incontinence evaluation. 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 Subjective Subjective Mónica returns today for evaluation and treatment of hidradenitis suppurativa. She has been using Dakins solution wet to dry dressings to the groin areas and has had improvement in the drainage and discomfort. She is a poor historian. Shedoes deny increased draining, bleeding or redness. She does not have an appointment scheduled yet with Dr. Albrecht for surgical consult. Objective Data Objective Data Vital Signs: Vital Signs Temp Pulse Resp BP O2 Del Method 98.2 F 78 16 101/68 Room Air 06/10/25 10:22 06/10/25 10:22 06/10/25 10:22 06/10/25 10:22 05/27/25 10:52 Oxygen Delivery Method Room Air Physical Exam Const alert, no apparent distress and healthy appearing General Appearance: cooperative and comfortable Nutritional Appearance: obese HEENT normocephalic and head/scalp atraumatic Resp normal respiratory effort Effort and Inspection: able to speak in complete sentences Cardio regular rate and regular rhythm Skin Skin Narrative: hypertrophic thickened skin of creases of groin bilaterally with some open areasthat appear to be cystic consistent with hidradenitis, no drainage and no sloughpresent, right labia enlarged and swollen with no current purulent drainage ableto be expressed from multiple openings Wounds: wounds noted Wound Narrative: as in clinical panel Neuro no focal motor deficits Psych mental status grossly normal, thought process normal, cooperative and affect normal Debridement Note Debridement Note Wound debrided: Left groin hidradenitis wound Laterality: Left No debridement was completed: No debridement was completed today Post-Debridement Measurements and Additional Note: Post-Debridement Measurements/Treatment SHAYNA - Nurse 1 - General Ulcer Assessment Start: 05/27/25 10:51 Freq: Status: Active Protocol: JOSE ELIAS Activity Type Activity Date Activity User E-sign Co-sign Detail Recorded Client Recorded Date Recorded By Document 05/27/25 10:52 KW [id number] 05/27/25 11:05 KW Document 06/10/25 10:22 DL [id number] 06/10/25 10:30 DL 05/27/25 06/10/25 10:52 10:22 WC - Today's Visit Information Type of service Follow-up Visit Follow-up Visit (Physician/FINISHING TUNNEL OPERATOR (Physician/FINISHING TUNNEL OPERATOR ) ) Arrival Mode Ambulatory Ambulatory,Cane Transfer Assistance None Patient Identification Verified (Name & Yes Yes ) Patient Requires Transmission-Based No Precautions Vital Signs Temperature (97.8 F-99.1 F) 96.8 F L 98.2 F Temperature Source Temporal Temporal Pulse Rate (60-100) 68 78 Pulse Location Monitor Monitor Respiratory Rate (12-18) 16 16 Respiratory rate source Observation Observation Oxygen Delivery Method Room Air Blood Pressure (90/60-120/80) 112/55 L 101/68 Blood Pressure Mean (mm Hg) 74 79 Source Monitor Position Sitting Blood Pressure Location Left Arm History Since Last Visit- (Skip if this is Patient's initial visit) Have you changed medications since your No No last visit? Any new allergies or adverse reactions No No Had a fall/change in ADL's that may No No increase risk of falls Signs or symptoms of abuse and/or No No neglect since last visit Have you been in the hospital since your No No last visit? Has dressing in place as prescribed Yes Yes Has compression in place as prescribed N/A N/A Has offloadiing in place as prescribed N/A N/A Experienced any changes in pain level or No No management Left Footwear Regular Shoe Right Footwear Regular Shoe Pain Scale: 0-10 Numeric Is Patient Pain Free? Yes Yes - Nurse 1 - General Ulcer Measurement Start: 05/27/25 10:51 Freq: Status: Active Protocol: Activity Type Activity Date Activity User E-sign Co-sign Detail Recorded Client Recorded Date Recorded By Document 05/27/25 10:52 KW [id number] 05/27/25 11:05 KW Document 06/10/25 10:22 DL [id number] 06/10/25 10:30 DL 05/27/25 06/10/25 10:52 10:22 Wound Center Nurse 1 2. R groin -Current Size (cm) - Length 0.1 -Current Size (cm) - Width 0.1 -Current Size (cm) - Depth 0.1 -Total Square Cm 0.01 -Exudate Amt Large Medium -Exudate Type Yellow/Green Yellow/Green -Wound Margin Distinct, Indistinct, Non Outline -Visible Attached -Granulation Amt Large (67-100%) Large (67-100%) -Granulation Quality Hyper- [place] granulation,Red -Necrosis Amt None Present (0 %) -Structure Exposed N/A -Texture (Carol-wound Skin Appearance) Assessed Localized Edema ,Scarring -Moisture (Carol-wound Skin Appearance) Assessed Weeping -Color (Carol-wound Skin Appearance) Assessed, No Abnormality Erythema -Temperature (Carol-wound Skin No Abnormality No Abnormality Appearance) (Pt Warm) (Pt Warm) -Tenderness on Palpation (Carol-wound No No Skin Appearance) -Ulcer Cleansing Rinsed/ Soap and Water Irrigated with Saline -Foul Odor after Cleansing No No -Anesthetic Used 5% Lidocaine 5% Lidocaine Gel Gel 1. L groin -Current Size (cm) - Length 0.1 -Current Size (cm) - Width 0.1 -Current Size (cm) - Depth 0.1 -Total Square Cm 0.01 -Exudate Amt Large Medium -Exudate Type Yellow/Green Yellow/Green -Wound Margin Indistinct, Non -Visible -Granulation Amt Large (67-100%) Large (67-100%) -Granulation Quality Hyper- [place] granulation,Red -Necrosis Amt None Present (0 %) -Structure Exposed N/A -Texture (Carol-wound Skin Appearance) Assessed Localized Edema ,Scarring -Moisture (Carol-wound Skin Appearance) Assessed Weeping -Color (Carol-wound Skin Appearance) Assessed No Abnormality -Temperature (Carol-wound Skin No Abnormality No Abnormality Appearance) (Pt Warm) (Pt Warm) -Tenderness on Palpation (Carol-wound No Skin Appearance) -Ulcer Cleansing Rinsed/ Soap and Water Irrigated with Saline -Foul Odor after Cleansing No No -Anesthetic Used 5% Lidocaine 5% Lidocaine Gel Gel WC - Nurse 2 - General Ulcer CM Notes Start: 05/27/25 10:51 Freq: Status: Active Protocol: Activity Type Activity Date Activity User E-sign Co-sign Detail Recorded Client Recorded Date Recorded By Document 05/27/25 12:13 [id number] 05/27/25 12:19 Document 06/10/25 11:25 [id number] 06/10/25 11:31 05/27/25 06/10/25 12:13 11:25 Wound Center Nurse 2 2. R groin -Time 12:13 11:25 -Correct Patient Yes Yes -Correct Side, Site, Position Yes Yes -Correct Procedure No No -Procedure Performed No No -Tunneling No -Undermining/Tunneling No -Circular Undermining No -Wound/Ulcer Outcome Not Healed Not Healed -Ulcer Cleansing Not Cleansed Not Cleansed -Foul Odor after Cleansing No No -Bioengineered Tissue No -Bleeding Controlled with NA NA -Offloading No 1. L groin -Time 12:16 11:28 -Correct Patient Yes Yes -Correct Side, Site, Position Yes Yes -Correct Procedure No No -Procedure Performed No No -Tunneling No -Undermining/Tunneling No -Circular Undermining No -Wound/Ulcer Outcome Not Healed -Ulcer Cleansing Not Cleansed Not Cleansed -Foul Odor after Cleansing No No -Bioengineered Tissue No -Bleeding Controlled with NA NA -Treatment Response Procedure Tolerated Well -Offloading No Pain Scale: 0-10 Numeric Is Patient Pain Free? Yes Yes - Nurse 3 - General Ulcer D/C NN Start: 05/27/25 10:51 Freq: Status: Active Protocol: Activity Type Activity Date Activity User E-sign Co-sign Detail Recorded Client Recorded Date Recorded By Document 05/27/25 12:31 KW [id number] 05/27/25 12:32 KW Document 06/10/25 11:57 DS [id number] 06/10/25 12:08 DS 05/27/25 06/10/25 12:31 11:57 Wound Care Center Nurse 3 2. R groin -Ulcer Cleansing Not Cleansed -Primary Dressing Applied Hysept -Other Dressing dakins wet to abd pad dry -Primary Dressing Covered/Secured with Dry Gauze, Dry Gauze, Secured with Secured with Tape Tape -Hysept 0 1. L groin -Ulcer Cleansing Not Cleansed -Primary Dressing Applied Hysept -Other Dressing dakins wet to abd pad dry -Primary Dressing Covered/Secured with Dry Gauze, Dry Gauze, Secured with Secured with Tape Tape -Hysept 0 Pain Scale: 0-10 Numeric Is Patient Pain Free? Yes Yes - Visit Discharge Discharge Condition Stable Stable Ambulatory Status Ambulatory,Cane Ambulatory,Cane Transportation Private Auto Private Auto Medication Reconcilliation completed & No provided to patient/care provider Clinical Summary of Care Provided Yes Additional Wound Wound debrided: right hidradenitis ulcer Laterality: Right Operative Diagnosis: No debridement completed today Assessment/Plan Assessment/Plan (1) Skin ulcer of right groin with fat layer exposed: CODE(S): L98.492 - Non-pressure chronic ulcer of skin of other sites with fat layer exposed (2) Ulcer of left groin with fat layer exposed: CODE(S): L98.492 - Non-pressure chronic ulcer of skin of other sites with fat layer exposed (3) Hidradenitis suppurativa: CODE(S): L73.2 - Hidradenitis suppurativa (4) Hypothyroidism: CODE(S): E03.9 - Hypothyroidism, unspecified QUALIFIERS: Hypothyroidism type: unspecified Qualified Code(s): E03.9 - (5) HTN (hypertension): CODE(S): I10 - Essential (primary) hypertension QUALIFIERS: Hypertension type: essential hypertension Qualified Code(s): I10 - Essential (primary) hypertension (6) Obesity: CODE(S): E66.9 - Obesity, unspecified QUALIFIERS: Obesity type: due to excess calories Obesity classification: adult class 2 (BMI 35 - 39.9) Serious obesity comorbidity presence: without serious comorbidity Body mass index: BMI 35.0-35.9QualifiedCode(s): E66.812 - Obesity, class 2; E66.09 - Other obesity due to excess calories; Z68.35- Body mass index [BMI] 35.0-35.9, adult PLAN: Plan PLAN: Evaluation performed today in clinic as annotated above. At home wound-care instructions: The patient will wash with antibacterial soap and water and then apply Dakins wet to dry dressings.Encouraged her to use baby wipes instead of rubbing alcohol to clean skin after using bathroom. Keep dressing clean and dry. Will consider having her use Acetic acid rinse to her groin area twice daily if Dakins wet to dry is not effective. Reiterated to both the patient and her brother, Gerson, that the hidradenitis is a chronic condition and there is a spectrum of treatments but it will not be cured and will involve periodic flare ups. We discussed referral to dermatology to discuss biologic treatment options and that surgical excision of the HS is also an option for treatment. Will discuss her case with Dr. Twonsend regarding DMARDs treatment and Dr. Eugene and also offered referral for surgical opinion to Dr. Albrecht in [place] as he hastreated several of my HS patients surgically. Discussed the importance of treating the incontinence and to follow up as scheduled with urology regarding work up and options for treatment. Also discussed trying ABD pads in her underwear instead of incontinence pads due to the irritation that plastic may cause to her skin or trying reusable, washable cotton underpads. Educated patient on the chronicity of hidradenitis and encouraged continued weight loss. Off-loading: The patient was instructed to avoid pressure and friction on the affected areas. Reposition every 2 hours at minimum. Avoid prolonged standing and/or dangling of legs. When seated, feet should be elevated at chest level. Frequent ambulation is encouraged. Diet: Patient encouraged to increase protein intake while taking caution to avoid high carbohydrateand/or sugar intake. Labs/cultures/imaging: Follow-up: Will have her return in 4 weeks. She was advised to call or go to ER if increased drainage, pain, bleeding or worsening. 06/10/25 2125 Cosigner Signature (if applicable): CC: ~ Signed [facility]08-14-2025 Telephone encounter Note* Telephone Encounter - Monty Minor RN - 06/09/2025 3:03 PM EDT Bev- [facility]- reports pt is due for recert now, and [facility] got involved with patient through the wound center. 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 Reports Dr. Eugene was signing orders, and Bev asked him to sign the 485, but he said he wouldn't because he hasn't seen patient in a couple weeks and advised Bev to ask Dr. Be to sign the 485. Reports Dr. Be has only been at the wound center for a couple weeks. Bev asking if Dr. Marmolejo would sign the 485? Please advise Bev: [phone] [facility]08-01-2025 Progress note Author Rachna Galvez [facility] Note Date/Time May 27, 2025 2:1 3pm [facility] [address] [place] [address] Progress Note - Wound Care 05/27/25 1334 MR#: [id number] Acct: [id number] Name: MÓNICA DECKER Rep #:[id number] : 1950 75 From: Rachna Galvez DO PCP: Dr. Mateo Marmolejo MD Status:REG RCR Location: History of Present Illness Date of Service: 05/27/25 Chief Complaint: Nonhealing ulcers of groin area History of Wound: Mónica is a pleasant 75 yo woman that presents to the wound healing center for evaluation and treatment recommendations for nonhealing ulcers that are in her bilateral groin folds that have been present and waxed and waned in severity for 13 years. She reports that she has also had urinary incontinence that started around that time as well and she has been wearing disposable incontinence pads daily since then. She reports that the areas bleed and drain pratt fluid intermittently. At some points there have been 5 spots of blood and currently there is about 2. She is otherwise uncomplicated and does not have history of diabetes. She denies fever, chills, erythema, increased drainage and odor. She has some cognitive impairment which is due to dementia. Her brother Gerson accompanies her today and helps somewhat with the history and reinforcement of instructions. She has been being seen by Dr. Eugene and referred for consultation regarding anymedical management recommendations. She was evaluated by MANAGER CAFE for possible Bartholin cyst but this was not felt to be an underlying cause. She sees Dr. Townsend for dermatology and is on Spironolactone. I saw her previously in July 2024 for similar complaints and she was referredto urology for urinary incontinence evaluation. 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 Subjective Subjective Mónica returns today for evaluation and treatment of hidradenitis suppurativa. She has been using Dakins solution wet to dry dressings to the groin areas and has had improvement in the drainage but still has discomfort. She is a poor historian. She does deny increased draining, bleeding or redness. Objective Data Objective Data Vital Signs: Vital Signs Temp Pulse Resp BP O2 Del Method 96.8 F L 68 16 112/55 L Room Air 05/27/25 10:52 05/27/25 10:52 05/27/25 10:52 05/27/25 10:52 05/27/25 10:52 Oxygen Delivery Method Room Air Physical Exam Const alert, no apparent distress and healthy appearing General Appearance: cooperative and comfortable Nutritional Appearance: obese HEENT normocephalic and head/scalp atraumatic Resp normal respiratory effort Effort and Inspection: able to speak in complete sentences Cardio regular rate and regular rhythm Skin Skin Narrative: hypertrophic thickened skin of creases of groin bilaterally with some open areasthat appear to be cystic consistent with hidradenitis, minimal purulent drainageand no slough present, right labia enlarged and swollen with purulent drainage expressed from multiple openings Wounds: wounds noted Wound Narrative: as in clinical panel Neuro no focal motor deficits Psych mental status grossly normal, thought process normal, cooperative and affect normal Debridement Note Debridement Note Wound debrided: Left groin hidradenitis wound Laterality: Left No debridement was completed: No debridement was completed today Post-Debridement Measurements and Additional Note: Post-Debridement Measurements/Treatment SHAYNA - Nurse 1 - General Ulcer Assessment Start: 05/27/25 10:51 Freq: Status: Active Protocol: JOSE ELIAS Activity Type Activity Date Activity User E-sign Co-sign Detail Recorded Client Recorded Date Recorded By Document 05/27/25 10:52 NIMESH [id number] 05/27/25 11:05 NIMESH 05/27/25 10:52 SHAYNA - Today's Visit Information Type of service Follow-up Visit (Physician/FINISHING TUNNEL OPERATOR ) Arrival Mode Ambulatory Patient Identification Verified (Name & Yes ) Vital Signs Temperature (97.8 F-99.1 F) 96.8 F L Temperature Source Temporal Pulse Rate (60-100) 68 Pulse Location Monitor Respiratory Rate (12-18) 16 Respiratory rate source Observation Oxygen Delivery Method Room Air Blood Pressure (90/60-120/80) 112/55 L Blood Pressure Mean (mm Hg) 74 Source Monitor Position Sitting Blood Pressure Location Left Arm History Since Last Visit- (Skip if this is Patient's initial visit) Have you changed medications since your No last visit? Any new allergies or adverse reactions No Had a fall/change in ADL's that may No increase risk of falls Signs or symptoms of abuse and/or No neglect since last visit Have you been in the hospital since your No last visit? Has dressing in place as prescribed Yes Has compression in place as prescribed N/A Has offloadiing in place as prescribed N/A Experienced any changes in pain level or No management Left Footwear Regular Shoe Right Footwear Regular Shoe Pain Scale: 0-10 Numeric Is Patient Pain Free? Yes SHAYNA - Nurse 1 - General Ulcer Measurement Start: 05/27/25 10:51 Freq: Status: Active Protocol: Activity Type Activity Date Activity User E-sign Co-sign Detail Recorded Client Recorded Date Recorded By Document 05/27/25 10:52 [id number] 05/27/25 11:05 05/27/25 10:52 Wound Center Nurse 1 2. R groin -Exudate Amt Large -Exudate Type Yellow/Green -Wound Margin Distinct, Outline Attached -Granulation Amt Large (67-100%) -Granulation Quality Hyper- granulation,Red -Texture (Carol-wound Skin Appearance) Assessed -Moisture (Carol-wound Skin Appearance) Assessed -Color (Carol-wound Skin Appearance) Assessed, Erythema -Temperature (Carol-wound Skin No Abnormality Appearance) (Pt Warm) -Tenderness on Palpation (Carol-wound No Skin Appearance) -Ulcer Cleansing Rinsed/ Irrigated with Saline -Foul Odor after Cleansing No -Anesthetic Used 5% Lidocaine Gel 1. L groin -Exudate Amt Large -Exudate Type Yellow/Green -Granulation Amt Large (67-100%) -Granulation Quality Hyper- granulation,Red -Texture (Carol-wound Skin Appearance) Assessed -Moisture (Carol-wound Skin Appearance) Assessed -Color (Carol-wound Skin Appearance) Assessed -Temperature (Carol-wound Skin No Abnormality Appearance) (Pt Warm) -Tenderness on Palpation (Carol-wound No Skin Appearance) -Ulcer Cleansing Rinsed/ Irrigated with Saline -Foul Odor after Cleansing No -Anesthetic Used 5% Lidocaine Gel SHAYNA - Nurse 2 - General Ulcer CM Notes Start: 05/27/25 10:51 Freq: Status: Active Protocol: Activity Type Activity Date Activity User E-sign Co-sign Detail Recorded Client Recorded Date Recorded By Document 05/27/25 12:13 [id number] 05/27/25 12:19 05/27/25 12:13 Wound Center Nurse 2 2. R groin -Time 12:13 -Correct Patient Yes -Correct Side, Site, Position Yes -Correct Procedure No -Procedure Performed No -Wound/Ulcer Outcome Not Healed -Ulcer Cleansing Not Cleansed -Foul Odor after Cleansing No -Bleeding Controlled with NA 1. L groin -Time 12:16 -Correct Patient Yes -Correct Side, Site, Position Yes -Correct Procedure No -Procedure Performed No -Tunneling No -Undermining/Tunneling No -Circular Undermining No -Ulcer Cleansing Not Cleansed -Foul Odor after Cleansing No -Bleeding Controlled with NA -Treatment Response Procedure Tolerated Well -Offloading No Pain Scale: 0-10 Numeric Is Patient Pain Free? Yes - Nurse 3 - General Ulcer D/C NN Start: 05/27/25 10:51 Freq: Status: Active Protocol: Activity Type Activity Date Activity User E-sign Co-sign Detail Recorded Client Recorded Date Recorded By Document 05/27/25 12:31 KW [id number] 05/27/25 12:32 KW 05/27/25 12:31 Wound Care Center Nurse 3 2. R groin -Other Dressing dakins wet to dry -Primary Dressing Covered/Secured with Dry Gauze, Secured with Tape 1. L groin -Other Dressing dakins wet to dry -Primary Dressing Covered/Secured with Dry Gauze, Secured with Tape Pain Scale: 0-10 Numeric Is Patient Pain Free? Yes - Visit Discharge Discharge Condition Stable Ambulatory Status Ambulatory,Cane Transportation Private Auto Medication Reconcilliation completed & No provided to patient/care provider Clinical Summary of Care Provided Yes Additional Wound Wound debrided: right hidradenitis ulcer Laterality: Right Operative Diagnosis: No debridement completed today Assessment/Plan Assessment/Plan (1) Skin ulcer of right groin with fat layer exposed: CODE(S): L98.492 - Non-pressure chronic ulcer of skin of other sites with fat layer exposed (2) Ulcer of left groin with fat layer exposed: CODE(S): L98.492 - Non-pressure chronic ulcer of skin of other sites with fat layer exposed (3) Hidradenitis suppurativa: CODE(S): L73.2 - Hidradenitis suppurativa (4) Hypothyroidism: CODE(S): E03.9 - Hypothyroidism, unspecified QUALIFIERS: Hypothyroidism type: unspecified Qualified Code(s): E03.9 - (5) HTN (hypertension): CODE(S): I10 - Essential (primary) hypertension QUALIFIERS: Hypertension type: essential hypertension Qualified Code(s): I10 - Essential (primary) hypertension (6) Obesity: CODE(S): E66.9 - Obesity, unspecified QUALIFIERS: Obesity type: due to excess calories Obesity classification: adult class 2 (BMI 35 - 39.9) Serious obesity comorbidity presence: without serious comorbidity Body mass index: BMI 35.0-35.9 QualifiedCode(s): E66.812 - Obesity, class 2; E66.09 - Other obesity due to excess calories; Z68.35 - Body mass index [BMI] 35.0-35.9, adult PLAN: Plan PLAN: Evaluation performed today in clinic as annotated above. At home wound-care instructions: The patient will wash with antibacterial soap and water and then apply Dakins wet to dry dressings. Encouraged her to use baby wipes instead of rubbing alcohol to clean skin after using bathroom. Keep dressing clean and dry. Will consider having her use Acetic acid rinse to her groin area twice daily if Dakins wet to dry is not effective. Reiterated to both the patient and her brother, Gerson, that the hidradenitis is a chronic condition and there is a spectrum of treatments but it will not be cured and will involve periodic flare ups. We discussed referral to dermatology to discuss biologic treatment options and that surgical excision of the HS is also an option for treatment. Will discuss her case with Dr. Townsend regarding DMARDs treatment and Dr. Eugene and also offered referral for surgical opinion to Dr. Albrecht in [place] as he has treated several of my HS patients surgically. Discussed the importance of treating the incontinence and to follow up as scheduled with urology regarding work up and options for treatment. Also discussed trying ABD pads in her underwear instead of incontinence pads due to the irritation that plastic may cause to her skin or trying reusable, washable cotton underpads. Educated patient on the chronicity of hidradenitis and encouraged continued weight loss. Off-loading: The patient was instructed to avoid pressure and friction on the affected areas. Reposition every 2 hours at minimum. Avoid prolonged standing and/or dangling of legs. When seated, feet should be elevated at chest level. Frequent ambulation is encouraged. Diet: Patient encouraged to increase protein intake while taking caution to avoid high carbohydrate and/or sugar intake. Labs/cultures/imaging: Follow-up: Will have her return in 2 weeks. She was advised to call or go to ER if increased drainage, pain, bleeding or worsening. 05/27/25 1413 <Electronically signed by Rachna Galvez DO> Cosigner Signature (if applicable): CC: ~ Signed [facility] Work Phone: [phone]) 243-666108-01-2025 Progress note [facility] [address] [place] [address] Progress Note - Wound Care 05/27/25 1334 MR#: [id number] Acct: [id number] Name: MÓNICA DECKER Rep #:[id number] : 1950 75 From: Rachna Galvez DO PCP: Dr. Mateo Marmolejo MD Status:REG RCR Location: History of Present Illness Date of Service: 05/27/25 Chief Complaint: Nonhealing ulcers of groin area History of Wound: Mónica is a pleasant 75 yo woman that presents to the wound healing center for evaluation and treatment recommendations for nonhealing ulcers that are in her bilateral groin folds that have been present and waxed and waned in severity for 13 years. She reports that she has also hadurinary incontinence that started around that time as well and she has been wearing disposable incontinence pads daily since then. She reports that the areas bleed and drain pratt fluid intermittently. At some points there have been 5 spots of blood and currently there is about 2. She is otherwise uncomplicated and does not have history of diabetes. She denies fever, chills, erythema, increased gabriel inage and odor. She has some cognitive impairment which is due to dementia. Her brother Gerson accompanies her today and helps somewhat with the history and reinforcement of instructions. She has been being seen by Dr. Eugene and referred for consultation regarding anymedical management recommendations. She was evaluated by MANAGER CAFE for possible Bartholin cyst but this was not felt to be anunderlying cause. She sees Dr. Townsend for dermatology and is on Spironolactone. I saw her previously in July 2024 for similar complaints and she was referredto urology for urinary incontinence evaluation. 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 Subjective Subjective Mónica returns today for evaluation and treatment of hidradenitis suppurativa. She has been using Dakins solution wet to dry dressings to the groin areas and has had improvement in the drainage but still has discomfort. She is a poor historian. She does deny increased draining, bleeding or redness. Objective Data Objective Data Vital Signs: Vital Signs Temp Pulse Resp BP O2 Del Method 96.8 F L 68 16 112/55 L Room Air 05/27/25 10:52 05/27/25 10:52 05/27/25 10:52 05/27/25 10:52 05/27/25 10:52 Oxygen Delivery Method Room Air Physical Exam Const alert, no apparent distress and healthy appearing General Appearance: cooperative and comfortable Nutritional Appearance: obese HEENT normocephalic and head/scalp atraumatic Resp normal respiratory effort Effort and Inspection: able to speak in complete sentences Cardio regular rate and regular rhythm Skin Skin Narrative: hypertrophic thickened skin of creases of groin bilaterally with some open areasthat appear to be cystic consistent with hidradenitis, minimal purulent drainageand no slough present, right labia enlarged and swollen with purulent drainage expressed from multiple openings Wounds: wounds noted Wound Narrative: as in clinical panel Neuro no focal motor deficits Psych mental status grossly normal, thought process normal, cooperative and affect normal Debridement Note Debridement Note Wound debrided: Left groin hidradenitis wound Laterality: Left No debridement was completed: No debridement was completed today Post-Debridement Measurements and Additional Note: Post-Debridement Measurements/Treatment - Nurse 1 - General Ulcer Assessment Start: 05/27/25 10:51 Freq: Status: Active Protocol: WC.LOWLIAMT Activity Type Activity Date Activity User E-sign Co-sign Detail Recorded Client Recorded Date Recorded By Document 05/27/25 10:52 [id number] 05/27/25 11:05 05/27/25 10:52 - Today's Visit Information Type of service Follow-up Visit (Physician/FINISHING TUNNEL OPERATOR ) Arrival Mode Ambulatory Patient Identification Verified (Name & Yes ) Vital Signs Temperature (97.8 F-99.1 F) 96.8 F L Temperature Source Temporal Pulse Rate (60-100) 68 Pulse Location Monitor Respiratory Rate (12-18) 16 Respiratory rate source Observation Oxygen Delivery Method Room Air Blood Pressure (90/60-120/80) 112/55 L Blood Pressure Mean (mm Hg) 74 Source Monitor Position Sitting Blood Pressure Location Left Arm History Since Last Visit- (Skip if this is Patient's initial visit) Have you changed medications since your No last visit? Any new allergies or adverse reactions No Had a fall/change in ADL's that may No increase risk of falls Signs or symptoms of abuse and/or No neglect since last visit Have you been in the hospital since your No last visit? Has dressing in place as prescribed Yes Has compression in place as prescribed N/A Has offloadiing in place as prescribed N/A Experienced any changes in pain level or No management Left Footwear Regular Shoe Right Footwear Regular Shoe Pain Scale: 0-10 Numeric Is Patient Pain Free? Yes SHAYNA - Nurse 1 - General Ulcer Measurement Start: 05/27/25 10:51 Freq: Status: Active Protocol: Activity Type Activity Date Activity User E-sign Co-sign Detail Recorded Client Recorded Date Recorded By Document 05/27/25 10:52 [email or web address] [id number] 05/27/25 11:05 KW 05/27/25 10:52 Wound Center Nurse 1 2. R groin -Exudate Amt Large -Exudate Type Yellow/Green -Wound Margin Distinct, Outline Attached -Granulation Amt Large (67-100%) -Granulation Quality Hyper- granulation,Red -Texture (Carol-wound Skin Appearance) Assessed -Moisture (Carol-wound Skin Appearance) Assessed -Color (Carol-wound Skin Appearance) Assessed, Erythema -Temperature (Carol-wound Skin No Abnormality Appearance) (Pt Warm) -Tenderness on Palpation (Carol-wound No Skin Appearance) -Ulcer Cleansing Rinsed/ Irrigated with Saline -Foul Odor after Cleansing No -Anesthetic Used 5% Lidocaine Gel 1. L groin -Exudate Amt Large -Exudate Type Yellow/Green -Granulation Amt Large (67-100%) -Granulation Quality Hyper- granulation,Red -Texture (Carol-wound Skin Appearance) Assessed -Moisture (Carol-wound Skin Appearance) Assessed -Color (Carol-wound Skin Appearance) Assessed -Temperature (Carol-wound Skin No Abnormality Appearance) (Pt Warm) -Tenderness on Palpation (Carol-wound No Skin Appearance) -Ulcer Cleansing Rinsed/ Irrigated with Saline -Foul Odor after Cleansing No -Anesthetic Used 5% Lidocaine Gel SHAYNA - Nurse 2 - General Ulcer CM Notes Start: 05/27/25 10:51 Freq: Status: Active Protocol: Activity Type Activity Date Activity User E-sign Co-sign Detail Recorded Client Recorded Date Recorded By Document 05/27/25 12:13 [id number] 05/27/25 12:19 05/27/25 12:13 Wound Center Nurse 2 2. R groin -Time 12:13 -Correct Patient Yes -Correct Side, Site, Position Yes -Correct Procedure No -Procedure Performed No -Wound/Ulcer Outcome Not Healed -Ulcer Cleansing Not Cleansed -Foul Odor after Cleansing No -Bleeding Controlled with NA 1. L groin -Time 12:16 -Correct Patient Yes -Correct Side, Site, Position Yes -Correct Procedure No -Procedure Performed No -Tunneling No -Undermining/Tunneling No -Circular Undermining No -Ulcer Cleansing Not Cleansed -Foul Odor after Cleansing No -Bleeding Controlled with NA -Treatment Response Procedure Tolerated Well -Offloading No Pain Scale: 0-10 Numeric Is Patient Pain Free? Yes - Nurse 3 - General Ulcer D/C NN Start: 05/27/25 10:51 Freq: Status: Active Protocol: Activity Type Activity Date Activity User E-sign Co-sign Detail Recorded Client Recorded Date Recorded By Document 05/27/25 12:31 [id number] 05/27/25 12:32 05/27/25 12:31 Wound Care Center Nurse 3 2. R groin -Other Dressing dakins wet to dry -Primary Dressing Covered/Secured with Dry Gauze, Secured with Tape 1. L groin -Other Dressing dakins wet to dry -Primary Dressing Covered/Secured with Dry Gauze, Secured with Tape Pain Scale: 0-10 Numeric Is Patient Pain Free? Yes - Visit Discharge Discharge Condition Stable Ambulatory Status Ambulatory,Cane Transportation Private Auto Medication Reconcilliation completed & No provided to patient/care provider Clinical Summary of Care Provided Yes Additional Wound Wound debrided: right hidradenitis ulcer Laterality: Right Operative Diagnosis: No debridement completed today Assessment/Plan Assessment/Plan (1) Skin ulcer of right groin with fat layer exposed: CODE(S): L98.492 - Non-pressure chronic ulcer of skin of other sites with fat layer exposed (2) Ulcer of left groin with fat layer exposed: CODE(S): L98.492 - Non-pressure chronic ulcer of skin of other sites with fat layer exposed (3) Hidradenitis suppurativa: CODE(S): L73.2 - Hidradenitis suppurativa (4) Hypothyroidism: CODE(S): E03.9 - Hypothyroidism, unspecified QUALIFIERS: Hypothyroidism type: unspecified Qualified Code(s): E03.9 - (5) HTN (hypertension): CODE(S): I10 - Essential (primary) hypertension QUALIFIERS: Hypertension type: essential hypertension Qualified Code(s): I10 - Essential (primary) hypertension (6) Obesity: CODE(S): E66.9 - Obesity, unspecified QUALIFIERS: Obesity type: due to excess calories Obesity classification: adult class 2 (BMI 35 - 39.9) Serious obesity comorbidity presence: without serious comorbidity Body mass index: BMI 35.0-35.9QualifiedCode(s): E66.812 - Obesity, class 2; E66.09 - Other obesity due to excess calories; Z68.35- Body mass index [BMI] 35.0-35.9, adult PLAN: Plan PLAN: Evaluation performed today in clinic as annotated above. At home wound-care instructions: The patient will wash with antibacterial soap and water and then apply Dakins wet to dry dressings.Encouraged her to use baby wipes instead of rubbing alcohol to clean skin after using bathroom. Keep dressing clean and dry. Will consider having her use Acetic acid rinse to her groin area twice daily if Dakins wet to dry is not effective. Reiterated to both the patient and her brother, Gerson, that the hidradenitis is a chronic condition and there is a spectrum of treatments but it will not be cured and will involve periodic flare ups. We discussed referral to dermatology to discuss biologic treatment options and that surgical excision of the HS is also an option for treatment. Will discuss her case with Dr. Townsend regarding DMARDs treatment and Dr. Eugene and also offered referral for surgical opinion to Dr. Albrecht in [place] as he hastreated several of my HS patients surgically. Discussed the importance of treating the incontinence and to follow up as scheduled with urology regarding work up and options for treatment. Also discussed trying ABD pads in her underwear instead of incontinence pads due to the irritation that plastic may cause to her skin or trying reusable, washable cotton underpads. Educated patient on the chronicity of hidradenitis and encouraged continued weight loss. Off-loading: The patient was instructed to avoid pressure and friction on the affected areas. Reposition every 2 hours at minimum. Avoid prolonged standing and/or dangling of legs. When seated, feet should be elevated at chest level. Frequent ambulation is encouraged. Diet: Patient encouraged to increase protein intake while taking caution to avoid high carbohydrateand/or sugar intake. Labs/cultures/imaging: Follow-up: Will have her return in 2 weeks. She was advised to call or go to ER if increased drainage, pain, bleeding or worsening. 05/27/25 1413 Cosigner Signature (if applicable): CC: ~ Signed [facility]07-18-2025 History and physical note Author Rachna Galvez [facility] Note Date/Time May 13, 2025 4:13 pm [facility] [address] [place] [address] H&P Exam - Wound Care 05/13/25 1544 MR#: [id number] Acct: [id number] Name: MÓNICA DECKER Rep #:[id number] : 1950 75 From: Rachna Galvez DO PCP: Dr. Mateo Marmolejo MD Status:REG RCR Location: History of Present Illness Date of Service: 05/13/25 Chief Complaint: Nonhealing ulcers of groin area History of Wound: Mónica is a pleasant 75 yo woman that presents to the wound healing center for evaluation and treatment recommendations for nonhealing ulcers that are in her bilateral groin folds that have been present and waxed and waned in severity for 13 years. She reports that she has also had urinary incontinence that started around that time as well and she has been wearing disposable incontinence pads daily since then. She reports that the areas bleed and drain pratt fluid intermittently. At some points there have been 5 spots of blood and currently there is about 2. She is otherwise uncomplicated and does not have history of diabetes. She denies fever, chills, erythema, increased drainage and odor. She has some cognitive impairment which is due to dementia. Her brother Gerson accompanies her today and helps somewhat with the history and reinforcement of instructions. She has been being seen by Dr. Eugene and referred for consultation regarding anymedical management recommendations. She was evaluated by MANAGER CAFE for possible Bartholin cyst but this was not felt to be an underlying cause. She sees Dr. Townsend for dermatology and is on Spironolactone. I saw her previously in July 2024 for similar complaints and she was referredto urology for urinary incontinence evaluation. 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 [facility] Medical History Post-menopausal Depression Anxiety Dementia Open wound Arthritis Non-smoker Shortness of breath on exertion Urinary incontinence Gout Hypothyroid High cholesterol HTN (hypertension) Home Medications ?Medication ?Instructions ?Recorded ?Last Taken ?Type levothyroxine 137 mcg tablet 150 mcg PO DAILY thyroid 01/06/20 01/05/20 History lisinopril 10 mg tablet 40 mg PO DAILY blood pressur e 01/06/20 01/04/20 History amlodipine 10 mg tablet (Norvasc) 10 mg PO DAILY 08/06 Unknown History furosemide 40 mg tablet (Lasix) 40 mg PO DAILY 4 Unknown History pravastatin 10 mg tablet 10 mg PO QHS 08/06/24 Unknow n History allopurinol 300 mg tablet 300 mg PO QDAY 12/10/24 Unkn own History mecobalamin (vitamin B12) 1,000 1,000 mcg PO QDAY 11/27 02/18 Unknown History mcg chewable tablet potassium chloride 20 mEq 20 meq PO QDAY 12/10/24 Unkn own History tablet,extended release donepezil 5 mg tablet 5 mg PO DAILY 01/04/25 Unkno wn History gabapentin 300 mg capsule 300 mg PO BID PRN pain (scal e 05/04/25 Unknown Rx score 4-6) #30 caps spironolactone 100 mg tablet 100 mg PO QDAY #30 tabs 0 05/04/25 Unknown Rx Allergy/AdvReac Type Severity Reaction Status Date / Time Latex, Natural Rubber Allergy Mild Rash Verified 05/04/25 09:41 Family History Father Colon cancer Mother Hypertension Surgical History S/P D&C (status post dilation and curettage) Status post amputation of finger S/P bladder repair History of left hip replacement H/O thyroidectomy History of right hip replacement Social History Smoking Status: Never smoker additional social history: Single ROS Constitutional Constitutional: Denies chills, fatigue or fever(s) Eyes Eyes: Denies blurry vision, change in vision or loss of vision ENT HEENT: Denies dysphagia, hearing loss or sore throat Cardiovascular Cardiovascular: Denies chest pain, edema or palpitations Respiratory/Chest Respiratory/Chest: Denies dry cough, dyspnea, dyspnea on exertion, productive cough or wheezing Gastrointestinal Gastrointestinal: Denies diarrhea, nausea or vomiting Genitourinary Genitourinary: Denies dysuria or polyuria Musculoskeletal Musculoskeletal: Denies arthralgias, joint stiffness or muscle weakness Integumentary Integumentary: Reports erythema and wounds Neurologic Neurologic: Denies dizziness, memory loss or weakness Psychiatric Psychiatric: Denies homicidal ideation or suicidal ideation Endocrine Endocrinology: Denies polydipsia, polyphagia or polyuria Hematologic/Lymphatic Hematologic/Lymphatic: Denies easy bleeding or easy bruising Allergic/Immunologic Allergic/Immunologic: Denies throat swelling, tongue swelling or urticaria Vital Signs Vital Signs Vital Signs: 05/13/25 10:57 Temperature 97.4 F L Temperature Source Temporal Pulse Rate 70 Respiratory Rate 18 Blood Pressure 117/64 Blood Pressure Mean 81 Blood Pressure Source Monitor Physical Exam Const alert, no apparent distress and healthy appearing General Appearance: cooperative and comfortable Nutritional Appearance: obese HEENT normocephalic and head/scalp atraumatic Resp normal respiratory effort Effort and Inspection: able to speak in complete sentences Cardio regular rate and regular rhythm Skin Skin Narrative: hypertrophic thickened skin of creases of groin bilaterally with some open areasthat appear to be cystic consistent with hidradenitis, minimal purulent drainageand no slough present, right labia enlarged and swollen with purulent drainage expressed from multiple openings Wounds: wounds noted Wound Narrative: as in clinical panel Neuro no focal motor deficits Psych mental status grossly normal, thought process normal, cooperative and affect normal Debridement Note Debridement Note Wound debrided: Left groin hidradenitis wound Laterality: Left No debridement was completed: No debridement was completed today Post-Debridement Measurements and Additional Note: Post-Debridement Measurements/Treatment WC - Nurse 1 - General Ulcer Assessment Start: 05/02/25 09:50 Freq: Status: Active Protocol: WC.LOWEXT Activity Type Activity Date Activity User E-sign Co-sign Detail Recorded Client Recorded Date Recorded By Document 05/02/25 09:51 DL [id number] 05/02/25 10:00 DL Document 05/13/25 10:57 DL [id number] 05/13/25 11:03 DL 05/02/25 05/13/25 09:51 10:57 - Today's Visit Information Type of service Follow-up Visit Follow-up Visit (Physician/FINISHING TUNNEL OPERATOR (Physician/FINISHING TUNNEL OPERATOR ) ) Arrival Mode Ambulatory Ambulatory,Cane Transfer Assistance None None Patient Identification Verified (Name & Yes Yes ) Patient Requires Transmission-Based No No Precautions Vital Signs Temperature (97.8 F-99.1 F) 98.2 F 97.4 F L Temperature Source Temporal Temporal Pulse Rate (60-100) 59 L 70 Pulse Location Monitor Monitor Respiratory Rate (12-18) 18 18 Respiratory rate source Observation Blood Pressure (90/60-120/80) 120/68 117/64 Blood Pressure Mean 85 81 Source Monitor Monitor History Since Last Visit- (Skip if this is Patient's initial visit) Have you changed medications since your No No last visit? Any new allergies or adverse reactions No No Had a fall/change in ADL's that may No No increase risk of falls Signs or symptoms of abuse and/or No No neglect since last visit Have you been in the hospital since your No No last visit? Has dressing in place as prescribed Yes Yes Has compression in place as prescribed N/A N/A Has offloadiing in place as prescribed N/A N/A Experienced any changes in pain level or No No management Pain Scale: 0-10 Numeric Is Patient Pain Free? Yes Yes - Nurse 1 - General Ulcer Measurement Start: 05/02/25 09:50 Freq: Status: Active Protocol: Activity Type Activity Date Activity User E-sign Co-sign Detail Recorded Client Recorded Date Recorded By Document 05/02/25 09:51 DL [id number] 05/02/25 10:00 DL Document 05/13/25 10:57 DL [id number] 05/13/25 11:03 DL 05/02/25 05/13/25 09:51 10:57 Wound Center Nurse 1 2. R groin -Current Size (cm) - Length 0.1 0.1 -Current Size (cm) - Width 0.1 0.1 -Current Size (cm) - Depth 0.1 0.1 -Total Square Cm 0.01 0.01 -Exudate Amt Small Medium -Exudate Type Serosanguineous Yellow/Green -Wound Margin Indistinct, Non Fibrotic Scar, -Visible Thickened Scar -Granulation Amt Large (67-100%) None Present (0 %) -Granulation Quality Red -Necrosis Amt None Present (0 None Present (0 %) %) -Structure Exposed N/A N/A -Texture (Carol-wound Skin Appearance) Scarring Localized Edema ,Scarring -Moisture (Carol-wound Skin Appearance) No Abnormality No Abnormality -Color (Carol-wound Skin Appearance) No Abnormality No Abnormality -Temperature (Carol-wound Skin No Abnormality No Abnormality Appearance) (Pt Warm) (Pt Warm) -Tenderness on Palpation (Carol-wound No Skin Appearance) -Ulcer Cleansing Soap and Water -Foul Odor after Cleansing No No -Anesthetic Used 5% Lidocaine 4% Lidocaine Gel Solution 1. L groin -Current Size (cm) - Length 0.1 0.1 -Current Size (cm) - Width 0.1 0.1 -Current Size (cm) - Depth 0.1 0.1 -Total Square Cm 0.01 0.01 -Exudate Amt Small Small -Exudate Type Serosanguineous Serosanguineous -Wound Margin Indistinct, Non Flat & Intact -Visible -Granulation Amt Large (67-100%) None Present (0 %) -Granulation Quality [place] -Necrosis Amt None Present (0 None Present (0 %) %) -Structure Exposed N/A -Texture (Carol-wound Skin Appearance) Scarring Localized Edema ,Scarring -Moisture (Carol-wound Skin Appearance) No Abnormality No Abnormality -Color (Carol-wound Skin Appearance) No Abnormality No Abnormality -Temperature (Carol-wound Skin No Abnormality No Abnormality Appearance) (Pt Warm) (Pt Warm) -Tenderness on Palpation (Carol-wound No No Skin Appearance) -Ulcer Cleansing Soap and Water -Foul Odor after Cleansing No No -Anesthetic Used 4% Lidocaine Solution WC - Nurse 2 - General Ulcer CM Notes Start: 05/02/25 09:50 Freq: Status: Active Protocol: Activity Type Activity Date Activity User E-sign Co-sign Detail Recorded Client Recorded Date Recorded By Document 05/02/25 10:20 DS [id number] 05/02/25 10:21 DS Document 05/13/25 12:15 DS [id number] 05/13/25 12:16 DS 05/02/25 05/13/25 10:20 12:15 Wound Center Nurse 2 2. R groin -Time 10:20 12:16 -Correct Patient Yes Yes -Correct Side, Site, Position Yes Yes -Correct Procedure Yes -Procedure Performed Yes No -Type of Procedure Debridement -Clinical Debridement Subcutaneous -Tissue Removed Subcutaneous -Post Debridement (cm) - Length 0.5 -Post Debridement (cm) - Width 0.5 -Post Debridement (cm) - Depth 0.1 -Total Square (Post) (cm) 0.25 -Area of Debridement (cm) - Length 0.5 -Area of Debridement (cm) - Width 0.5 -Total Square (Area) (cm) 0.25 -Tunneling No -Undermining/Tunneling No -Circular Undermining No -Wound/Ulcer Outcome Not Healed Not Healed -Ulcer Cleansing Rinsed/ Irrigated with Saline -Foul Odor after Cleansing No -Bioengineered Tissue No -Bleeding Controlled with Pressure -Treatment Response Procedure Tolerated Well -Debridement - Subq, 1st 20sq cm Yes 1. L groin -Time 10:21 12:16 -Correct Patient Yes Yes -Correct Side, Site, Position Yes Yes -Correct Procedure Yes -Procedure Performed Yes No -Type of Procedure Debridement -Clinical Debridement Subcutaneous -Tissue Removed Subcutaneous -Post Debridement (cm) - Length 1.0 -Post Debridement (cm) - Width 1.0 -Post Debridement (cm) - Depth 0.1 -Total Square (Post) (cm) 1.00 -Area of Debridement (cm) - Length 1.0 -Area of Debridement (cm) - Width 1.0 -Total Square (Area) (cm) 1.00 -Tunneling No -Undermining/Tunneling No -Circular Undermining No -Wound/Ulcer Outcome Not Healed Not Healed -Ulcer Cleansing Rinsed/ Irrigated with Saline -Foul Odor after Cleansing No -Bioengineered Tissue No -Bleeding Controlled with Pressure -Treatment Response Procedure Tolerated Well -Debridement - Subq, 1st 20sq cm No Pain Scale: 0-10 Numeric Is Patient Pain Free? Yes Yes WC - Nurse 3 - General Ulcer D/C NN Start: 05/02/25 09:50 Freq: Status: Active Protocol: Activity Type Activity Date Activity User E-sign Co-sign Detail Recorded Client Recorded Date Recorded By Document 05/02/25 10:54 DL [id number] 05/02/25 10:55 DL Document 05/13/25 12:31 DL [id number] 05/13/25 12:32 DL 05/02/25 05/13/25 10:54 12:31 Wound Care Center Nurse 3 2. R groin -Ulcer Cleansing Soap and Water Rinsed/ Irrigated with Saline -Foul Odor after Cleansing No No -Primary Dressing Applied Aquacel AG 4x4 Hysept -Primary Dressing Covered/Secured with Dry Gauze, Dry Gauze, Secured with Secured with Tape Tape -Aquacel AG 4x4 1 -Hysept 1 1. L groin -Ulcer Cleansing Soap and Water Rinsed/ Irrigated with Saline -Foul Odor after Cleansing No No -Other Dressing Aquacel AG Dakins Moist gauze -Primary Dressing Covered/Secured with Dry Gauze, Dry Gauze, Secured with Secured with Tape Tape Treatment Response Procedure Procedure Tolerated Well Tolerated Well Pain Scale: 0-10 Numeric Is Patient Pain Free? Yes No WC - Visit Discharge Discharge Condition Stable Stable Ambulatory Status Ambulatory,Cane Ambulatory Transportation Private Auto Private Auto Facility Type Home Health Orders Sent Yes Additional Wound Wound debrided: right hidradenitis ulcer Laterality: Right Operative Diagnosis: No debridement completed today Assessment/Plan Assessment/Plan (1) Skin ulcer of right groin with fat layer exposed: CODE(S): L98.492 - Non-pressure chronic ulcer of skin of other sites with fat layer exposed (2) Ulcer of left groin with fat layer exposed: CODE(S): L98.492 - Non-pressure chronic ulcer of skin of other sites with fat layer exposed (3) Hidradenitis suppurativa: CODE(S): L73.2 - Hidradenitis suppurativa (4) Hypothyroidism: CODE(S): E03.9 - Hypothyroidism, unspecified QUALIFIERS: Hypothyroidism type: unspecified Qualified Code(s): E03.9 - (5) HTN (hypertension): CODE(S): I10 - Essential (primary) hypertension QUALIFIERS: Hypertension type: essential hypertension Qualified Code(s): I10 - Essential (primary) hypertension (6) Obesity: CODE(S): E66.9 - Obesity, unspecified QUALIFIERS: Obesity type: due to excess calories Obesity classification: adult class 2 (BMI 35 - 39.9) Serious obesity comorbidity presence: without serious comorbidity Body mass index: BMI 35.0-35.9 QualifiedCode(s): E66.812 - Obesity, class 2; E66.09 - Other obesity due to excess calories; Z68.35 - Body mass index [BMI] 35.0-35.9, adult PLAN: Plan PLAN: Evaluation performed today in clinic as annotated above. At home wound-care instructions: The patient will wash with antibacterial soap and water and then apply Dakins wet to dry dressings. Encouraged her to use baby wipes instead of rubbing alcohol to clean skin after using bathroom. Keep dressing clean and dry. Will consider having her use Acetic acid rinse to her groin area twice daily if Dakins wet to dry is not effective. Reiterated to both the patient and her brother, Gerson, that the hidradenitis is a chronic condition and there is a spectrum of treatments but it will not be cured and will involve periodic flare ups. We discussed referral to dermatology to discuss biologic treatment options and that surgical excision of the HS is also an option for treatment. Will discuss her case with Dr. Townsend and Dr. Eugene and also offered referral for surgical opinion to Dr. Albrecht in [place] as he has treated several of my HS patients. Discussed the importance of treating the incontinence and to follow up as scheduled with urology regarding work up and options for treatment. Also discussed trying ABD pads in her underwear instead of incontinence pads due to the irritation that plastic may cause to her skin or trying reusable, washable cotton underpads. Educated patient on the chronicity of hidradenitis and encouraged continued weight loss. Off-loading: The patient was instructed to avoid pressure and friction on the affected areas. Reposition every 2 hours at minimum. Avoid prolonged standing and/or dangling of legs. When seated, feet should be elevated at chest level. Frequent ambulation is encouraged. Diet: Patient encouraged to increase protein intake while taking caution to avoid high carbohydrate and/or sugar intake. Labs/cultures/imaging: Follow-up: Will have her return in 2 weeks. She was advised to call or go to ER if increased drainage, pain, bleeding or worsening. 05/13/25 0555 <Electronically signed by Rachna Galvez DO> Cosigner Signature (if applicable): CC: ~ Signed [facility] Work Phone: [phone] History and physical note [facility] [address] [place] [address] H&P Exam - Wound Care 05/13/25 1544 MR#: [id number] Acct: [id number] Name: MÓNICA DECKER Rep #:[id number] : 1950 75 From: Rachna Galvez DO PCP: Dr. Mateo Marmolejo MD Status:REG RCR Location: History of Present Illness Date of Service: 05/13/25 Chief Complaint: Nonhealing ulcers of groin area History of Wound: Mónica is a pleasant 75 yo woman that presents to the wound healing center for evaluation and treatment recommendations for nonhealing ulcers that are in her bilateral groin folds that have been present and waxed and waned in severity for 13 years. She reports that she has also hadurinary incontinence that started around that time as well and she has been wearing disposable incontinence pads daily since then. She reports that the areas bleed and drain pratt fluid intermittently. At some points there have been 5 spots of blood and currently there is about 2. She is otherwise uncomplicated and does not have history of diabetes. She denies fever, chills, erythema, increased gabriel inage and odor. She has some cognitive impairment which is due to dementia. Her brother Gerson accompanies her today and helps somewhat with the history and reinforcement of instructions. She has been being seen by Dr. Eugene and referred for consultation regarding anymedical management recommendations. She was evaluated by MANAGER CAFE for possible Bartholin cyst but this was not felt to be anunderlying cause. She sees Dr. Townsend for dermatology and is on Spironolactone. I saw her previously in July 2024 for similar complaints and she was referredto urology for urinary incontinence evaluation. 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 [facility] Medical History Post-menopausal Depression Anxiety Dementia Open wound Arthritis Non-smoker Shortness of breath on exertion Urinary incontinence Gout Hypothyroid High cholesterol HTN (hypertension) Home Medications ?Medication ?Instructions ?Recorded ?Last Taken ?Type levothyroxine 137 mcg tablet 150 mcg PO DAILY thyroid 01/06/20 01/05/20 History lisinopril 10 mg tablet 40 mg PO DAILY blood pressur e 01/06/20 01/04/20 History amlodipine 10 mg tablet (Norvasc) 10 mg PO DAILY 08/06 Unknown History furosemide 40 mg tablet (Lasix) 40 mg PO DAILY 4 Unknown History pravastatin 10 mg tablet 10 mg PO QHS 08/06/24 Unknow n History allopurinol 300 mg tablet 300 mg PO QDAY 12/10/24 Unkn own History mecobalamin (vitamin B12) 1,000 1,000 mcg PO QDAY 11/27 02/18 Unknown History mcg chewable tablet potassium chloride 20 mEq 20 meq PO QDAY 12/10/24 Unkn own History tablet,extended release donepezil 5 mg tablet 5 mg PO DAILY 01/04/25 Unkno wn History gabapentin 300 mg capsule 300 mg PO BID PRN pain (scal e 05/04/25 Unknown Rx score 4-6) #30 caps spironolactone 100 mg tablet 100 mg PO QDAY #30 tabs 0 05/04/25 Unknown Rx Allergy/AdvReac Type Severity Reaction Status Date / Time Latex, Natural Rubber Allergy Mild Rash Verified 05/04/25 09:41 Family History Father Colon cancer Mother Hypertension Surgical History S/P D&C (status post dilation and curettage) Status post amputation of finger S/P bladder repair History of left hip replacement H/O thyroidectomy History of right hip replacement Social History Smoking Status: Never smoker additional social history: Single ROS Constitutional Constitutional: Denies chills, fatigue or fever(s) Eyes Eyes: Denies blurry vision, change in vision or loss of vision ENT HEENT: Denies dysphagia, hearing loss or sore throat Cardiovascular Cardiovascular: Denies chest pain, edema or palpitations Respiratory/Chest Respiratory/Chest: Denies dry cough, dyspnea, dyspnea on exertion, productive cough or wheezing Gastrointestinal Gastrointestinal: Denies diarrhea, nausea or vomiting Genitourinary Genitourinary: Denies dysuria or polyuria Musculoskeletal Musculoskeletal: Denies arthralgias, joint stiffness or muscle weakness Integumentary Integumentary: Reports erythema and wounds Neurologic Neurologic: Denies dizziness, memory loss or weakness Psychiatric Psychiatric: Denies homicidal ideation or suicidal ideation Endocrine Endocrinology: Denies polydipsia, polyphagia or polyuria Hematologic/Lymphatic Hematologic/Lymphatic: Denies easy bleeding or easy bruising Allergic/Immunologic Allergic/Immunologic: Denies throat swelling, tongue swelling or urticaria Vital Signs Vital Signs Vital Signs: 05/13/25 10:57 Temperature 97.4 F L Temperature Source Temporal Pulse Rate 70 Respiratory Rate 18 Blood Pressure 117/64 Blood Pressure Mean 81 Blood Pressure Source Monitor Physical Exam Const alert, no apparent distress and healthy appearing General Appearance: cooperative and comfortable Nutritional Appearance: obese HEENT normocephalic and head/scalp atraumatic Resp normal respiratory effort Effort and Inspection: able to speak in complete sentences Cardio regular rate and regular rhythm Skin Skin Narrative: hypertrophic thickened skin of creases of groin bilaterally with some open areasthat appear to be cystic consistent with hidradenitis, minimal purulent drainageand no slough present, right labia enlarged and swollen with purulent drainage expressed from multiple openings Wounds: wounds noted Wound Narrative: as in clinical panel Neuro no focal motor deficits Psych mental status grossly normal, thought process normal, cooperative and affect normal Debridement Note Debridement Note Wound debrided: Left groin hidradenitis wound Laterality: Left No debridement was completed: No debridement was completed today Post-Debridement Measurements and Additional Note: Post-Debridement Measurements/Treatment - Nurse 1 - General Ulcer Assessment Start: 05/02/25 09:50 Freq: Status: Active Protocol: JOSE ELIAS Activity Type Activity Date Activity User E-sign Co-sign Detail Recorded Client Recorded Date Recorded By Document 05/02/25 09:51 DL [id number] 05/02/25 10:00 DL Document 05/13/25 10:57 DL [id number] 05/13/25 11:03 DL 05/02/25 05/13/25 09:51 10:57 - Today's Visit Information Type of service Follow-up Visit Follow-up Visit (Physician/FINISHING TUNNEL OPERATOR (Physician/FINISHING TUNNEL OPERATOR ) ) Arrival Mode Ambulatory Ambulatory,Cane Transfer Assistance None None Patient Identification Verified (Name & Yes Yes ) Patient Requires Transmission-Based No No Precautions Vital Signs Temperature (97.8 F-99.1 F) 98.2 F 97.4 F L Temperature Source Temporal Temporal Pulse Rate (60-100) 59 L 70 Pulse Location Monitor Monitor Respiratory Rate (12-18) 18 18 Respiratory rate source Observation Blood Pressure (90/60-120/80) 120/68 117/64 Blood Pressure Mean 85 81 Source Monitor Monitor History Since Last Visit- (Skip if this is Patient's initial visit) Have you changed medications since your No No last visit? Any new allergies or adverse reactions No No Had a fall/change in ADL's that may No No increase risk of falls Signs or symptoms of abuse and/or No No neglect since last visit Have you been in the hospital since your No No last visit? Has dressing in place as prescribed Yes Yes Has compression in place as prescribed N/A N/A Has offloadiing in place as prescribed N/A N/A Experienced any changes in pain level or No No management Pain Scale: 0-10 Numeric Is Patient Pain Free? Yes Yes - Nurse 1 - General Ulcer Measurement Start: 05/02/25 09:50 Freq: Status: Active Protocol: Activity Type Activity Date Activity User E-sign Co-sign Detail Recorded Client Recorded Date Recorded By Document 05/02/25 09:51 DL [id number] 05/02/25 10:00 DL Document 05/13/25 10:57 DL [id number] 05/13/25 11:03 DL 05/02/25 05/13/25 09:51 10:57 Wound Center Nurse 1 2. R groin -Current Size (cm) - Length 0.1 0.1 -Current Size (cm) - Width 0.1 0.1 -Current Size (cm) - Depth 0.1 0.1 -Total Square Cm 0.01 0.01 -Exudate Amt Small Medium -Exudate Type Serosanguineous Yellow/Green -Wound Margin Indistinct, Non Fibrotic Scar, -Visible Thickened Scar -Granulation Amt Large (67-100%) None Present (0 %) -Granulation Quality Red -Necrosis Amt None Present (0 None Present (0 %) %) -Structure Exposed N/A N/A -Texture (Carol-wound Skin Appearance) Scarring Localized Edema ,Scarring -Moisture (Carol-wound Skin Appearance) No Abnormality No Abnormality -Color (Carol-wound Skin Appearance) No Abnormality No Abnormality -Temperature (Carol-wound Skin No Abnormality No Abnormality Appearance) (Pt Warm) (Pt Warm) -Tenderness on Palpation (Carol-wound No Skin Appearance) -Ulcer Cleansing Soap and Water -Foul Odor after Cleansing No No -Anesthetic Used 5% Lidocaine 4% Lidocaine Gel Solution 1. L groin -Current Size (cm) - Length 0.1 0.1 -Current Size (cm) - Width 0.1 0.1 -Current Size (cm) - Depth 0.1 0.1 -Total Square Cm 0.01 0.01 -Exudate Amt Small Small -Exudate Type Serosanguineous Serosanguineous -Wound Margin Indistinct, Non Flat & Intact -Visible -Granulation Amt Large (67-100%) None Present (0 %) -Granulation Quality [place] -Necrosis Amt None Present (0 None Present (0 %) %) -Structure Exposed N/A -Texture (Carol-wound Skin Appearance) Scarring Localized Edema ,Scarring -Moisture (Carol-wound Skin Appearance) No Abnormality No Abnormality -Color (Carol-wound Skin Appearance) No Abnormality No Abnormality -Temperature (Carol-wound Skin No Abnormality No Abnormality Appearance) (Pt Warm) (Pt Warm) -Tenderness on Palpation (Carol-wound No No Skin Appearance) -Ulcer Cleansing Soap and Water -Foul Odor after Cleansing No No -Anesthetic Used 4% Lidocaine Solution WC - Nurse 2 - General Ulcer CM Notes Start: 05/02/25 09:50 Freq: Status: Active Protocol: Activity Type Activity Date Activity User E-sign Co-sign Detail Recorded Client Recorded Date Recorded By Document 05/02/25 10:20 DS [id number] 05/02/25 10:21 DS Document 05/13/25 12:15 DS [id number] 05/13/25 12:16 DS 05/02/25 05/13/25 10:20 12:15 Wound Center Nurse 2 2. R groin -Time 10:20 12:16 -Correct Patient Yes Yes -Correct Side, Site, Position Yes Yes -Correct Procedure Yes -Procedure Performed Yes No -Type of Procedure Debridement -Clinical Debridement Subcutaneous -Tissue Removed Subcutaneous -Post Debridement (cm) - Length 0.5 -Post Debridement (cm) - Width 0.5 -Post Debridement (cm) - Depth 0.1 -Total Square (Post) (cm) 0.25 -Area of Debridement (cm) - Length 0.5 -Area of Debridement (cm) - Width 0.5 -Total Square (Area) (cm) 0.25 -Tunneling No -Undermining/Tunneling No -Circular Undermining No -Wound/Ulcer Outcome Not Healed Not Healed -Ulcer Cleansing Rinsed/ Irrigated with Saline -Foul Odor after Cleansing No -Bioengineered Tissue No -Bleeding Controlled with Pressure -Treatment Response Procedure Tolerated Well -Debridement - Subq, 1st 20sq cm Yes 1. L groin -Time 10:21 12:16 -Correct Patient Yes Yes -Correct Side, Site, Position Yes Yes -Correct Procedure Yes -Procedure Performed Yes No -Type of Procedure Debridement -Clinical Debridement Subcutaneous -Tissue Removed Subcutaneous -Post Debridement (cm) - Length 1.0 -Post Debridement (cm) - Width 1.0 -Post Debridement (cm) - Depth 0.1 -Total Square (Post) (cm) 1.00 -Area of Debridement (cm) - Length 1.0 -Area of Debridement (cm) - Width 1.0 -Total Square (Area) (cm) 1.00 -Tunneling No -Undermining/Tunneling No -Circular Undermining No -Wound/Ulcer Outcome Not Healed Not Healed -Ulcer Cleansing Rinsed/ Irrigated with Saline -Foul Odor after Cleansing No -Bioengineered Tissue No -Bleeding Controlled with Pressure -Treatment Response Procedure Tolerated Well -Debridement - Subq, 1st 20sq cm No Pain Scale: 0-10 Numeric Is Patient Pain Free? Yes Yes WC - Nurse 3 - General Ulcer D/C NN Start: 05/02/25 09:50 Freq: Status: Active Protocol: Activity Type Activity Date Activity User E-sign Co-sign Detail Recorded Client Recorded Date Recorded By Document 05/02/25 10:54 DL [id number] 05/02/25 10:55 DL Document 05/13/25 12:31 DL [id number] 05/13/25 12:32 DL 05/02/25 05/13/25 10:54 12:31 Wound Care Center Nurse 3 2. R groin -Ulcer Cleansing Soap and Water Rinsed/ Irrigated with Saline -Foul Odor after Cleansing No No -Primary Dressing Applied Aquacel AG 4x4 Hysept -Primary Dressing Covered/Secured with Dry Gauze, Dry Gauze, Secured with Secured with Tape Tape -Aquacel AG 4x4 1 -Hysept 1 1. L groin -Ulcer Cleansing Soap and Water Rinsed/ Irrigated with Saline -Foul Odor after Cleansing No No -Other Dressing Aquacel AG Dakins Moist gauze -Primary Dressing Covered/Secured with Dry Gauze, Dry Gauze, Secured with Secured with Tape Tape Treatment Response Procedure Procedure Tolerated Well Tolerated Well Pain Scale: 0-10 Numeric Is Patient Pain Free? Yes No WC - Visit Discharge Discharge Condition Stable Stable Ambulatory Status Ambulatory,Cane Ambulatory Transportation Private Auto Private Auto Facility Type Home Health Orders Sent Yes Additional Wound Wound debrided: right hidradenitis ulcer Laterality: Right Operative Diagnosis: No debridement completed today Assessment/Plan Assessment/Plan (1) Skin ulcer of right groin with fat layer exposed: CODE(S): L98.492 - Non-pressure chronic ulcer of skin of other sites with fat layer exposed (2) Ulcer of left groin with fat layer exposed: CODE(S): L98.492 - Non-pressure chronic ulcer of skin of other sites with fat layer exposed (3) Hidradenitis suppurativa: CODE(S): L73.2 - Hidradenitis suppurativa (4) Hypothyroidism: CODE(S): E03.9 - Hypothyroidism, unspecified QUALIFIERS: Hypothyroidism type: unspecified Qualified Code(s): E03.9 - (5) HTN (hypertension): CODE(S): I10 - Essential (primary) hypertension QUALIFIERS: Hypertension type: essential hypertension Qualified Code(s): I10 - Essential (primary) hypertension (6) Obesity: CODE(S): E66.9 - Obesity, unspecified QUALIFIERS: Obesity type: due to excess calories Obesity classification: adult class 2 (BMI 35 - 39.9) Serious obesity comorbidity presence: without serious comorbidity Body mass index: BMI 35.0-35.9QualifiedCode(s): E66.812 - Obesity, class 2; E66.09 - Other obesity due to excess calories; Z68.35- Body mass index [BMI] 35.0-35.9, adult PLAN: Plan PLAN: Evaluation performed today in clinic as annotated above. At home wound-care instructions: The patient will wash with antibacterial soap and water and then apply Dakins wet to dry dressings.Encouraged her to use baby wipes instead of rubbing alcohol to clean skin after using bathroom. Keep dressing clean and dry. Will consider having her use Acetic acid rinse to her groin area twice daily if Dakins wet to dry is not effective. Reiterated to both the patient and her brother, Gerson, that the hidradenitis is a chronic condition and there is a spectrum of treatments but it will not be cured and will involve periodic flare ups. We discussed referral to dermatology to discuss biologic treatment options and that surgical excision of the HS is also an option for treatment. Will discuss her case with Dr. Townsend and Dr. Eugene and also offered referral for surgical opinion to Dr. Albrecht in [place] as he has treated several of my HS patients. Discussed the importance of treating the incontinence and to follow up as scheduled with urology regarding work up and options for treatment. Also discussed trying ABD pads in her underwear instead of incontinence pads due to the irritation that plastic may cause to her skin or trying reusable, washable cotton underpads. Educated patient on the chronicity of hidradenitis and encouraged continued weight loss. Off-loading: The patient was instructed to avoid pressure and friction on the affected areas. Reposition every 2 hours at minimum. Avoid prolonged standing and/or dangling of legs. When seated, feet should be elevated at chest level. Frequent ambulation is encouraged. Diet: Patient encouraged to increase protein intake while taking caution to avoid high carbohydrateand/or sugar intake. Labs/cultures/imaging: Follow-up: Will have her return in 2 weeks. She was advised to call or go to ER if increased drainage, pain, bleeding or worsening. 05/13/25 1613 Cosigner Signature (if applicable): CC: ~ Signed [facility]07-16-2025 NoteHNO ID: [id number] Author: BRAYDEN BLOUNT MA Service: ? Author Type: Deli Associate Type: Progress Notes Filed: 05/11/2025 08:39 Note Text: External Labs Brayden Blount MA View External Labs - [facility] TF [ID [id number]][facility] 05-11-2025 History of Present illness Narrative* Brayden Blount MA - 05/11/2025 8:39 AM EDT External Labs Brayden Blount MA View External Labs - [facility] [ID [id number]] * Brayden Blount MA - 05/09/2025 9:39 AM EDT View External Labs - wound culture [ID [id number]] [facility] Telephone encounter Note * Telephone Encounter - Shola Shaver RN - 05/10/2025 10:07 AM EDT The patient has been identified by name and date of : Yes Caregiver verified no other encounters exist for this prescription request: Yes Caregiver confirmed with patient/requestor that no other refills are due, in the near future, with this provider at this time: Yes The last office visit in the department: 02/01/2025 Does the patient have a future office visit with this provider/department: Yes 07/22/2025 Requested Prescriptions Pending Prescriptions Disp Refills amLODIPine (NORVASC) 10 mg tablet 90 tablet 1 Sig: Take 1 tablet by mouth once daily. PLEASE MAIL TO PATIENT;S HOME - PILL FILI furosemide (LASIX) 40 mg tablet 90 tablet 1 Sig: Take 1 tablet by mouth once daily. PLEASE MAIL TO PATIENT;S HOME - PILL FILI lisinopril (ZESTRIL) 40 mg tablet 90 tablet 1 Sig: Take 1 tablet by mouth once daily. PLEASE MAIL TO PATIENT'S HOME - PILL FILI pravastatin (PRAVACHOL) 10 mg tablet 90 tablet 1 Sig: Take 1 tablet by mouth once daily. PLEASE MAIL TO PATIENT'S HOME - PILL FILI Shola Shaver RN May 10, 2025 10:07 AM [facility]07-15-2025 Miscellaneous Notes* Telephone Encounter - Shola Shaver RN - 05/10/2025 10:07 AM EDT The patient has been identified by name and date of : Yes Caregiver verified no other encounters exist for this prescription request: Yes Caregiver confirmed with patient/requestor that no other refills are due, in the near future, with this provider at this time: Yes The last office visit in the department: 02/01/2025 Does the patient have a future office visit with this provider/department: Yes 07/22/2025 Requested Prescriptions Pending Prescriptions Disp Refills amLODIPine (NORVASC) 10 mg tablet 90 tablet 1 Sig: Take 1 tablet by mouth once daily. PLEASE MAIL TO PATIENT;S HOME - PILL FILI furosemide (LASIX) 40 mg tablet 90 tablet 1 Sig: Take 1 tablet by mouth once daily. PLEASE MAIL TO PATIENT;S HOME - PILL FILI lisinopril (ZESTRIL) 40 mg tablet 90 tablet 1 Sig: Take 1 tablet by mouth once daily. PLEASE MAIL TO PATIENT'S HOME - PILL FILI pravastatin (PRAVACHOL) 10 mg tablet 90 tablet 1 Sig: Take 1 tablet by mouth once daily. PLEASE MAIL TO PATIENT'S HOME - PILL FILI Shola Shaver RN May 10, 2025 10:07 AM documented in this [facility]25 NoteHNO ID: [id number] Author: BRAYDEN BLOUNT MA Service: ? Author Type: Deli Associate Type: Progress Notes Filed: 05/11/2025 08:39 Note Text: View External Labs - wound culture [ID [id number]][facility] 05-06-2025 NoteHNO ID: [id number] Author: LÓPEZ RANDALL, ? Service: ? Author Type: Physician Type: Progress Notes Filed: 05/07/2025 07:40 Note Text: Subjective: Patient presents to clinic c/o painful toenails. They state that the nails are especially painful with shoe gear and pressure. Patient states that nails 1-5 b/l are painful. No other pedal complaints at this time. Patient states no change in medications or medical history since last visit. Objective: Patient presents to clinic ambulating in sneakers Vasc: DP and PT pulses are palpable bilateral. CFT is less than 5 seconds bilateral. Skin temperature is warm to cool proximal to distal bilateral. There is moderate edema or varicosities noted. Ruborous discoloration is noted to b/l feet with dependency. Neuro: Protective sensation is decreased to the foot and toes when tested with the 5.07 SWM bilateral. Vibratory sensation is absent at the hallux IPJ bilateral. The hallux is downgoing bilateral. Derm: Nails 1-5 b/l are painful, discolored-yellow, thick, crumbly, dystrophic and with subungal debris. Skin is of normal turgor, texture and hair growth is absent bilateral. There are no hyperkeratosis, ulcerations, scars, verruca or other lesions noted. Ortho: Muscle strength is 5/5 for all pedal groups tested. Ankle joint DF is decreased with the knee extended with no pain or crepitus noted. 1st MPJ ROM is decreased bilateral. Assessment: (B35.1) Onychomycosis (primary encounter diagnosis) (M79.675) Pain in toe of left foot (M79.674) Pain in toe of right foot Plan: Patient was seen and evaluated. Nails 1-5 bilateral were debrided in length and thickness. Patient is to RTC in 3-4 months. López Randall [facility]07-11-2025 History of Present illness Narrative* López Randall - 05/06/2025 2:29 PM EDT Subjective: Patient presents to clinic c/o painful toenails. They state that the nails are especially painful with shoe gear and pressure. Patient states that nails 1-5 b/l are painful. No other pedal complaints at this time. Patient states no change in medications or medical history since last visit. Objective: Patient presents to clinic ambulating in sneakers Vasc: DP and PT pulses are palpable bilateral. CFT is less than 5 seconds bilateral. Skin temperature is warm to cool proximal to distal bilateral. There is moderate edema or varicosities noted. Ruborous discoloration is noted to b/l feet with dependency. Neuro: Protective sensation is decreased to the foot and toes when tested with the 5.07 SWM bilateral. Vibratory sensation is absent at the hallux IPJ bilateral. The hallux is downgoing bilateral. Derm: Nails 1-5 b/l are painful, discolored-yellow, thick, crumbly, dystrophic and with subungal debris. Skin is of normal turgor, texture and hair growth is absent bilateral. There are no hyperkeratosis, ulcerations, scars, verruca or other lesions noted. Ortho: Muscle strength is 5/5 for all pedal groups tested. Ankle joint DF is decreased with the knee extended with no pain or crepitus noted. 1st MPJ ROM is decreased bilateral. Assessment: (B35.1) Onychomycosis (primary encounter diagnosis) (M79.675) Pain in toe of left foot (M79.674) Pain in toe of right foot Plan: Patient was seen and evaluated. Nails 1-5 bilateral were debrided in length and thickness. Patient is to RTC in 3-4 months. López Randall DPM * Evelyn Lomas LPN - 05/06/2025 2:22 PM EDT AMB ROOMING INTAKE FLOWSHEET DATA Patient presents with: Left Foot - Established Patient, Nail Care Right Foot - Established Patient, Nail Care Evelyn Lomas LPN documented in [facility]25 NoteHNO ID: [id number] Author: EVELNY LOMAS LPN Service: ? Author Type: LICENSED NURSE Type: Progress Notes Filed: 05/07/2025 07:40 Note Text: AMB ROOMING INTAKE FLOWSHEET DATA Patient presents with: Left Foot - Established Patient, Nail Care Right Foot - Established Patient, Nail Care [facility] Progress note Author Kasi Eugene [facility] Note Date/Time May 02, 2025 11:39 am [facility] [address] [place] [id number] Progress Note - Wound Care 05/02/25 1132 MR#: [id number] Acct: [id number] Name: MÓNICA DECKER Rep #:[id number] : 1950 75 From: Kasi Eugene MD PCP: Dr. Mateo Marmolejo MD Status:REG RCR Location: History of Present Illness Date of Service: 05/02/25 Chief Complaint: Nonhealing ulcers of groin area History of Wound: HPI per nursing Mónica is a pleasant 74 yo woman that presents to the wound healing center for evaluation and treatment recommendations for nonhealing ulcers that are in her bilateral groin folds that have been present and waxed and waned in severity for12 years. She reports that she has also had urinary incontinence that started around that time as well and she has been wearing disposable incontinence pads daily since then. She has never been on any medication for urinary incontinence and has a urology appointment scheduled for the end of this month but does not know who she is seeing. She reports that the areas bleed and drain pratt fluid intermittently. At some points there have been 5 spots of blood and currently there is about 2. She is using Zinc oxide to the areas a few times/day. She usesrubbing alcohol on her areas after each restroom visit. She has been advised to use topical antibiotic ointment by her PCP but it wild. She is otherwise uncomplicated and does not have history of diabetes. She denies fever, chills, erythema, increased drainage and odor. She has had some cognitive changes over the last 6 months post her hip replacement surgery which may be due to dementia or anesthesia reaction. Her brother Gerson accompanies her today and helps somewhat with the history. HPI from encounter, 11 April 2025: The patient is a 75-year-old female presenting with hidradenitis suppurativa jose possible Bartholin cyst. The hidradenitis suppurativa has been persistent, with lesions that fluctuate in size but do not resolve completely. The patient reports minimal drainage from the lesions, and there is concern about potential infection. 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 The patient has been using Kotex pads due to bladder issues, which may have exacerbated the condition. The patient also reports a painful swelling in the right labium majora, suspected to be a Bartholin cyst. She has not previously consulted an WELDER APPRENTICE GAS forthis issue. The patient has experienced significant unintentional weight loss, losing 70 pounds over the last few months, which is concerning. She has not yet undergone a mammogram, although it is planned, and she had a colonoscopy three years ago, with a recommendation for a repeat in five years. Attestation: Documentation on this patient encounter was supported using ambient scribe technology/ voice AI technology. The patient consented to recording for the purpose of documenting the encounter. Provider reviewed content of the generatednote prior to signature. Subjective Subjective The patient is a 75-year-old female presenting with wound care management and evaluation of a HS in the groin. The patient has been performing daily dressing changes for her groin wounds. There is some persistent HS in the groin and the HS v Bartholin cyst near introitus/vagina is still persistent and painful. She tried the antibiotics given to her by the SWITCH CREW SUPERVISOR from W[facility] office. She has not seen a MANAGER CAFE surgeon. 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 The wounds are 1 x 1 cm and are in the inguinal fold. - Genitourinary: Persistent cyst near introitus appears inflamed and painful, potentially a Bartholin cyst (right side). Const Negative for alert, oriented x3, no apparent distress or well nourished Debridement Note Debridement Note Wound debrided: Left groin hidradenitis wound Laterality: Left Wound Grade/Stage: Stage III Type of Debridement: Excisional debridement Anesthesia Used: 4% Lidocaine Solution Depth: in the subcutaneous layer Percentage of wound debrided: 100 Instrument Used: 7mm curette Tissue Removed: Necrotic fibrinous exudate and hidradenitis purulence Severity: Fat Layer Exposed Amount of bleeding with debridement: Moderate Bleeding Controlled with: Compression and gauze Patient tolerated procedure: Patient tolerated procedure well Post-Debridement Measurements and Additional Note: Post-Debridement Measurements/Treatment WC - Nurse 1 - General Ulcer Assessment Start: 05/02/25 09:50 Freq: Status: Active Protocol: JOSE ELIAS Activity Type Activity Date Activity User E-sign Co-sign Detail Recorded Client Recorded Date Recorded By Document 05/02/25 09:51 MILLER [id number] 05/02/25 10:00 DL 05/02/25 09:51 WC - Today's Visit Information Type of service Follow-up Visit (Physician/FINISHING TUNNEL OPERATOR ) Arrival Mode Ambulatory Transfer Assistance None Patient Identification Verified (Name & Yes ) Patient Requires Transmission-Based No Precautions Vital Signs Temperature (97.8 F-99.1 F) 98.2 F Temperature Source Temporal Pulse Rate (60-100) 59 L Pulse Location Monitor Respiratory Rate (12-18) 18 Respiratory rate source Observation Blood Pressure (90/60-120/80) 120/68 Blood Pressure Mean (mm Hg) 85 Source Monitor History Since Last Visit- (Skip if this is Patient's initial visit) Have you changed medications since your No last visit? Any new allergies or adverse reactions No Had a fall/change in ADL's that may No increase risk of falls Signs or symptoms of abuse and/or No neglect since last visit Have you been in the hospital since your No last visit? Has dressing in place as prescribed Yes Has compression in place as prescribed N/A Has offloadiing in place as prescribed N/A Experienced any changes in pain level or No management Pain Scale: 0-10 Numeric Is Patient Pain Free? Yes SHAYNA - Nurse 1 - General Ulcer Measurement Start: 05/02/25 09:50 Freq: Status: Active Protocol: Activity Type Activity Date Activity User E-sign Co-sign Detail Recorded Client Recorded Date Recorded By Document 05/02/25 09:51 MILLER [id number] 05/02/25 10:00 DL 05/02/25 09:51 Wound Center Nurse 1 2. R groin -Current Size (cm) - Length 0.1 -Current Size (cm) - Width 0.1 -Current Size (cm) - Depth 0.1 -Total Square Cm 0.01 -Exudate Amt Small -Exudate Type Serosanguineous -Wound Margin Indistinct, Non -Visible -Granulation Amt Large (67-100%) -Granulation Quality Red -Necrosis Amt None Present (0 %) -Structure Exposed N/A -Texture (Carol-wound Skin Appearance) Scarring -Moisture (Carol-wound Skin Appearance) No Abnormality -Color (Carol-wound Skin Appearance) No Abnormality -Temperature (Carol-wound Skin No Abnormality Appearance) (Pt Warm) -Tenderness on Palpation (Carol-wound No Skin Appearance) -Foul Odor after Cleansing No -Anesthetic Used 5% Lidocaine Gel 1. L groin -Current Size (cm) - Length 0.1 -Current Size (cm) - Width 0.1 -Current Size (cm) - Depth 0.1 -Total Square Cm 0.01 -Exudate Amt Small -Exudate Type Serosanguineous -Wound Margin Indistinct, Non -Visible -Granulation Amt Large (67-100%) -Granulation Quality [place] -Necrosis Amt None Present (0 %) -Texture (Carol-wound Skin Appearance) Scarring -Moisture (Carol-wound Skin Appearance) No Abnormality -Color (Carol-wound Skin Appearance) No Abnormality -Temperature (Carol-wound Skin No Abnormality Appearance) (Pt Warm) -Tenderness on Palpation (Carol-wound No Skin Appearance) -Ulcer Cleansing Soap and Water -Foul Odor after Cleansing No WC - Nurse 2 - General Ulcer CM Notes Start: 05/02/25 09:50 Freq: Status: Active Protocol: Activity Type Activity Date Activity User E-sign Co-sign Detail Recorded Client Recorded Date Recorded By Document 05/02/25 10:20 DS [id number] 05/02/25 10:21 DS 05/02/25 10:20 Wound Center Nurse 2 2. R groin -Time 10:20 -Correct Patient Yes -Correct Side, Site, Position Yes -Correct Procedure Yes -Procedure Performed Yes -Type of Procedure Debridement -Clinical Debridement Subcutaneous -Tissue Removed Subcutaneous -Post Debridement (cm) - Length 0.5 -Post Debridement (cm) - Width 0.5 -Post Debridement (cm) - Depth 0.1 -Total Square (Post) (cm) 0.25 -Area of Debridement (cm) - Length 0.5 -Area of Debridement (cm) - Width 0.5 -Total Square (Area) (cm) 0.25 -Tunneling No -Undermining/Tunneling No -Circular Undermining No -Wound/Ulcer Outcome Not Healed -Ulcer Cleansing Rinsed/ Irrigated with Saline -Foul Odor after Cleansing No -Bioengineered Tissue No -Bleeding Controlled with Pressure -Treatment Response Procedure Tolerated Well -Debridement - Subq, 1st 20sq cm Yes 1. L groin -Time 10:21 -Correct Patient Yes -Correct Side, Site, Position Yes -Correct Procedure Yes -Procedure Performed Yes -Type of Procedure Debridement -Clinical Debridement Subcutaneous -Tissue Removed Subcutaneous -Post Debridement (cm) - Length 1.0 -Post Debridement (cm) - Width 1.0 -Post Debridement (cm) - Depth 0.1 -Total Square (Post) (cm) 1.00 -Area of Debridement (cm) - Length 1.0 -Area of Debridement (cm) - Width 1.0 -Total Square (Area) (cm) 1.00 -Tunneling No -Undermining/Tunneling No -Circular Undermining No -Wound/Ulcer Outcome Not Healed -Ulcer Cleansing Rinsed/ Irrigated with Saline -Foul Odor after Cleansing No -Bioengineered Tissue No -Bleeding Controlled with Pressure -Treatment Response Procedure Tolerated Well -Debridement - Subq, 1st 20sq cm No Pain Scale: 0-10 Numeric Is Patient Pain Free? Yes - Nurse 3 - General Ulcer D/C NN Start: 05/02/25 09:50 Freq: Status: Active Protocol: Activity Type Activity Date Activity User E-sign Co-sign Detail Recorded Client Recorded Date Recorded By Document 05/02/25 10:54 DL [id number] 05/02/25 10:55 DL 05/02/25 10:54 Wound Care Center Nurse 3 2. R groin -Ulcer Cleansing Soap and Water -Foul Odor after Cleansing No -Primary Dressing Applied Aquacel AG 4x4 -Primary Dressing Covered/Secured with Dry Gauze, Secured with Tape -Aquacel AG 4x4 1 1. L groin -Ulcer Cleansing Soap and Water -Foul Odor after Cleansing No -Other Dressing Aquacel AG -Primary Dressing Covered/Secured with Dry Gauze, Secured with Tape Treatment Response Procedure Tolerated Well Pain Scale: 0-10 Numeric Is Patient Pain Free? Yes - Visit Discharge Discharge Condition Stable Ambulatory Status Ambulatory,Cane Transportation Private Auto Facility Type Home Health Orders Sent Yes Assessment/Plan Assessment/Plan (1) Skin ulcer of right groin with fat layer exposed: CODE(S): L98.492 - Non-pressure chronic ulcer of skin of other sites with fat layer exposed (2) Ulcer of left groin with fat layer exposed: CODE(S): L98.492 - Non-pressure chronic ulcer of skin of other sites with fat layer exposed (3) Hidradenitis suppurativa: CODE(S): L73.2 - Hidradenitis suppurativa PLAN: Plan 1. Hidradenitis suppurativa Continue Aquacel Ag dressing changes to the groin (groin hidradenitis is very small at 1 x 1 cm) 2. Vaginal wounds from cyst/hidradenitis The patient reports a painful swelling on the right vulva near introitus. A referral to an WELDER APPRENTICE GAS is planned for further evaluation and management of the suspected Bartholin cyst. I spoke with the WELDER APPRENTICE GAS office and she is going to see the MANAGER CAFE surgeon for management of this problem. 3. Unintentional weight loss The patient has experienced significant weight loss over the past few months. A mammogram is planned, and further evaluation of the weight loss is necessary to rule out underlying causes. I have ordered a mammogram to start. - Clean and pack the wounds daily with Aquacel Ag as instructed (daily remove and replace) - Follow up with the labeling associate for potential Kenalog injections and doxycycline treatment. - Schedule an appointment with an WELDER APPRENTICE GAS for evaluation as noted above - Plan for a mammogram to investigate the cause of weight loss. Follow-up in 2 weeks 05/02/25 1139 <Electronically signed by Kasi Eugene MD> Cosigner Signature (if applicable): CC: ~ Signed [facility] Work Phone: [phone] Progress note [facility] [address] [place] [address] Progress Note - Wound Care 05/02/25 1132 MR#: [id number] Acct: [id number] Name: MÓNICA DECKER Rep #:[id number] : 1950 75 From: Kasi Eugene MD PCP: Dr. Mateo Marmolejo MD Status:REG RCR Location: History of Present Illness Date of Service: 05/02/25 Chief Complaint: Nonhealing ulcers of groin area History of Wound: HPI per nursing Mónica is a pleasant 74 yo woman that presents to the wound healing center for evaluation and treatment recommendations for nonhealing ulcers that are in her bilateral groin folds that have been present and waxed and waned in severity for12 years. She reports that she has also had urinary incontinence that started around that time as well and she has been wearing disposable incontinence pads daily since then. She has never been on any medication for urinary incontinence and has a urology appointment scheduled for the end of this month but does not know who she is seeing. She reports that the areas bleed and drain pratt fluid intermittently. At some points there have been 5 spots of blood andcurrently there is about 2. She is using Zinc oxide to the areas a few times/day. She usesrubbing alcohol on her areas after each restroom visit. She has been advised to use topical antibiotic ointment by her PCP but it wild. She is otherwise uncomplicated and does not have history of diabetes. She denies fever, chills, erythema, increased drainage and odor. She has had some cognitive changes over the last 6 months post her hip replacement surgery which may be due to dementia or anesthesia reaction. Her brother Gerson accompanies her today and helps somewhat with the history. HPI from encounter, 11 April 2025: The patient is a 75-year-old female presenting with hidradenitis suppurativa jose possible Bartholin cyst. The hidradenitis suppurativa has been persistent, with lesions that fluctuate in size but donot resolve completely. The patient reports minimal drainage from the lesions, and there is concernabout potential infection. 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 The patient has been using Kotex pads due to bladder issues, which may have exacerbated the condition. The patient also reports a painful swelling in the right labium majora, suspected to be a Bartholincyst. She has not previously consulted an WELDER APPRENTICE GAS forthis issue. The patient has experienced significant unintentional weight loss, losing 70 pounds over the last few months, which is concerning. She has not yet undergone a mammogram, although it is planned, and she had a colonoscopy three years ago, with a recommendation for a repeat in five years. Attestation: Documentation on this patient encounter was supported using ambient scribe technology/ voice AI technology. The patient consented to recording for the purpose of documenting the encounter. Provider reviewed content of the generatednote prior to signature. Subjective Subjective The patient is a 75-year-old female presenting with wound care management and evaluation of a HS inthe groin. The patient has been performing daily dressing changes for her groin wounds. There is some persistent HS in the groin and the HS v Bartholin cyst near introitus/vagina is still persistent and painful. She tried the antibiotics given to her by the SWITCH CREW SUPERVISOR from WELDER APPRENTICE G[facility] office. She has not seen a MANAGER CAFE surgeon. 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 The wounds are 1 x 1 cm and are in the inguinal fold. - Genitourinary: Persistent cyst near introitus appears inflamed and painful, potentially a Bartholin cyst (right side). Const Negative for alert, oriented x3, no apparent distress or well nourished Debridement Note Debridement Note Wound debrided: Left groin hidradenitis wound Laterality: Left Wound Grade/Stage: Stage III Type of Debridement: Excisional debridement Anesthesia Used: 4% Lidocaine Solution Depth: in the subcutaneous layer Percentage of wound debrided: 100 Instrument Used: 7mm curette Tissue Removed: Necrotic fibrinous exudate and hidradenitis purulence Severity: Fat Layer Exposed Amount of bleeding with debridement: Moderate Bleeding Controlled with: Compression and gauze Patient tolerated procedure: Patient tolerated procedure well Post-Debridement Measurements and Additional Note: Post-Debridement Measurements/Treatment WC - Nurse 1 - General Ulcer Assessment Start: 05/02/25 09:50 Freq: Status: Active Protocol: JOSE ELIAS Activity Type Activity Date Activity User E-sign Co-sign Detail Recorded Client Recorded Date Recorded By Document 05/02/25 09:51 DL [id number] 05/02/25 10:00 DL 05/02/25 09:51 SHAYNA - Today's Visit Information Type of service Follow-up Visit (Physician/FINISHING TUNNEL OPERATOR ) Arrival Mode Ambulatory Transfer Assistance None Patient Identification Verified (Name & Yes ) Patient Requires Transmission-Based No Precautions Vital Signs Temperature (97.8 F-99.1 F) 98.2 F Temperature Source Temporal Pulse Rate (60-100) 59 L Pulse Location Monitor Respiratory Rate (12-18) 18 Respiratory rate source Observation Blood Pressure (90/60-120/80) 120/68 Blood Pressure Mean (mm Hg) 85 Source Monitor History Since Last Visit- (Skip if this is Patient's initial visit) Have you changed medications since your No last visit? Any new allergies or adverse reactions No Had a fall/change in ADL's that may No increase risk of falls Signs or symptoms of abuse and/or No neglect since last visit Have you been in the hospital since your No last visit? Has dressing in place as prescribed Yes Has compression in place as prescribed N/A Has offloadiing in place as prescribed N/A Experienced any changes in pain level or No management Pain Scale: 0-10 Numeric Is Patient Pain Free? Yes WC - Nurse 1 - General Ulcer Measurement Start: 05/02/25 09:50 Freq: Status: Active Protocol: Activity Type Activity Date Activity User E-sign Co-sign Detail Recorded Client Recorded Date Recorded By Document 05/02/25 09:51 DL [id number] 05/02/25 10:00 DL 05/02/25 09:51 Wound Center Nurse 1 2. R groin -Current Size (cm) - Length 0.1 -Current Size (cm) - Width 0.1 -Current Size (cm) - Depth 0.1 -Total Square Cm 0.01 -Exudate Amt Small -Exudate Type Serosanguineous -Wound Margin Indistinct, Non -Visible -Granulation Amt Large (67-100%) -Granulation Quality Red -Necrosis Amt None Present (0 %) -Structure Exposed N/A -Texture (Carol-wound Skin Appearance) Scarring -Moisture (Carol-wound Skin Appearance) No Abnormality -Color (Carol-wound Skin Appearance) No Abnormality -Temperature (Carol-wound Skin No Abnormality Appearance) (Pt Warm) -Tenderness on Palpation (Carol-wound No Skin Appearance) -Foul Odor after Cleansing No -Anesthetic Used 5% Lidocaine Gel 1. L groin -Current Size (cm) - Length 0.1 -Current Size (cm) - Width 0.1 -Current Size (cm) - Depth 0.1 -Total Square Cm 0.01 -Exudate Amt Small -Exudate Type Serosanguineous -Wound Margin Indistinct, Non -Visible -Granulation Amt Large (67-100%) -Granulation Quality [place] -Necrosis Amt None Present (0 %) -Texture (Carol-wound Skin Appearance) Scarring -Moisture (Carol-wound Skin Appearance) No Abnormality -Color (Carol-wound Skin Appearance) No Abnormality -Temperature (Carol-wound Skin No Abnormality Appearance) (Pt Warm) -Tenderness on Palpation (Carol-wound No Skin Appearance) -Ulcer Cleansing Soap and Water -Foul Odor after Cleansing No WC - Nurse 2 - General Ulcer CM Notes Start: 05/02/25 09:50 Freq: Status: Active Protocol: Activity Type Activity Date Activity User E-sign Co-sign Detail Recorded Client Recorded Date Recorded By Document 05/02/25 10:20 DS [id number] 05/02/25 10:21 DS 05/02/25 10:20 Wound Center Nurse 2 2. R groin -Time 10:20 -Correct Patient Yes -Correct Side, Site, Position Yes -Correct Procedure Yes -Procedure Performed Yes -Type of Procedure Debridement -Clinical Debridement Subcutaneous -Tissue Removed Subcutaneous -Post Debridement (cm) - Length 0.5 -Post Debridement (cm) - Width 0.5 -Post Debridement (cm) - Depth 0.1 -Total Square (Post) (cm) 0.25 -Area of Debridement (cm) - Length 0.5 -Area of Debridement (cm) - Width 0.5 -Total Square (Area) (cm) 0.25 -Tunneling No -Undermining/Tunneling No -Circular Undermining No -Wound/Ulcer Outcome Not Healed -Ulcer Cleansing Rinsed/ Irrigated with Saline -Foul Odor after Cleansing No -Bioengineered Tissue No -Bleeding Controlled with Pressure -Treatment Response Procedure Tolerated Well -Debridement - Subq, 1st 20sq cm Yes 1. L groin -Time 10:21 -Correct Patient Yes -Correct Side, Site, Position Yes -Correct Procedure Yes -Procedure Performed Yes -Type of Procedure Debridement -Clinical Debridement Subcutaneous -Tissue Removed Subcutaneous -Post Debridement (cm) - Length 1.0 -Post Debridement (cm) - Width 1.0 -Post Debridement (cm) - Depth 0.1 -Total Square (Post) (cm) 1.00 -Area of Debridement (cm) - Length 1.0 -Area of Debridement (cm) - Width 1.0 -Total Square (Area) (cm) 1.00 -Tunneling No -Undermining/Tunneling No -Circular Undermining No -Wound/Ulcer Outcome Not Healed -Ulcer Cleansing Rinsed/ Irrigated with Saline -Foul Odor after Cleansing No -Bioengineered Tissue No -Bleeding Controlled with Pressure -Treatment Response Procedure Tolerated Well -Debridement - Subq, 1st 20sq cm No Pain Scale: 0-10 Numeric Is Patient Pain Free? Yes - Nurse 3 - General Ulcer D/C NN Start: 05/02/25 09:50 Freq: Status: Active Protocol: Activity Type Activity Date Activity User E-sign Co-sign Detail Recorded Client Recorded Date Recorded By Document 05/02/25 10:54 DL [id number] 05/02/25 10:55 DL 05/02/25 10:54 Wound Care Center Nurse 3 2. R groin -Ulcer Cleansing Soap and Water -Foul Odor after Cleansing No -Primary Dressing Applied Aquacel AG 4x4 -Primary Dressing Covered/Secured with Dry Gauze, Secured with Tape -Aquacel AG 4x4 1 1. L groin -Ulcer Cleansing Soap and Water -Foul Odor after Cleansing No -Other Dressing Aquacel AG -Primary Dressing Covered/Secured with Dry Gauze, Secured with Tape Treatment Response Procedure Tolerated Well Pain Scale: 0-10 Numeric Is Patient Pain Free? Yes - Visit Discharge Discharge Condition Stable Ambulatory Status Ambulatory,Cane Transportation Private [facility] Facility Type Home Health Orders Sent Yes Assessment/Plan Assessment/Plan (1) Skin ulcer of right groin with fat layer exposed: CODE(S): L98.492 - Non-pressure chronic ulcer of skin of other sites with fat layer exposed (2) Ulcer of left groin with fat layer exposed: CODE(S): L98.492 - Non-pressure chronic ulcer of skin of other sites with fat layer exposed (3) Hidradenitis suppurativa: CODE(S): L73.2 - Hidradenitis suppurativa PLAN: Plan 1. Hidradenitis suppurativa Continue Aquacel Ag dressing changes to the groin (groin hidradenitis is very small at 1 x 1 cm) 2. Vaginal wounds from cyst/hidradenitis The patient reports a painful swelling on the right vulva near introitus. A referral to an WELDER APPRENTICE GAS is planned for further evaluation and management of the suspected Bartholin cyst. I spoke with the WELDER APPRENTICE GAS office and she is going to see the MANAGER CAFE surgeon for management of this problem. 3. Unintentional weight loss The patient has experienced significant weight loss over the past few months. A mammogram is planned, and further evaluation of the weight loss is necessary to rule out underlying causes. I have ordered a mammogram to start. - Clean and pack the wounds daily with Aquacel Ag as instructed (daily remove and replace) - Follow up with the labeling associate for potential Kenalog injections and doxycycline treatment. - Schedule an appointment with an WELDER APPRENTICE GAS for evaluation as noted above - Plan for a mammogram to investigate the cause of weight loss. Follow-up in 2 weeks 05/02/25 1139 Cosigner Signature (if applicable): CC: ~ Signed [facility]07-01-2025 NoteHNO ID: [id number] Author: RBAYDEN BLOUNT MA Service: ? Author Type: LICENSED NURSE Type: Progress Notes Filed: 05/04/2025 16:58 Note Text: Scan on 04/26/2025 1:39 PM by Marianna Bowens PA-C: Chemistry View External Labs - CMP, Estradiol [ID [id number]][facility] 04-26-2025 History of Present illness Narrative* Kelvin Dietrich LPN - 04/26/2025 2:37 PM EDT Scan on 04/26/2025 1:39 PM by Marianna Bowens PA-C: [facility] NoteHNO ID: [id number] Author: BRAYDEN BLOUNT MA Service: ? Author Type: LICENSED NURSE Type: Progress Notes Filed: 04/25/2025 08:25 Note Text: Scan on 04/22/2025 12:13 PM by Marianna Bowens PA-C: Microbiology View External Labs - Culture Wound Preliminary [ID [id number]] View External Labs - Would Cx, Final [ID [id number]][facility] 04-22-2025 History of Present illness Narrative* Kelvin Dietrich LPN - 04/22/2025 12:24 PM EDT Scan on 04/22/2025 12:13 PM by Provider, External, LIZY: Microbiology View External Labs - Culture Wound Preliminary [ID [id number]] documented in [facility] Progress note Author Kasi Eugene [facility] Note Date/Time April 18, 2025 1:22 pm [facility] [address] [place] [address] Progress Note - Wound Care 04/18/25 1319 MR#: [id number] Acct: [id number] Name: MÓNICA DECKER Rep #:[id number] : 1950 75 From: Kasi Eugene MD PCP: Dr. Mateo Marmolejo MD Status:REG RCR Location: History of Present Illness Date of Service: 04/18/25 Chief Complaint: Nonhealing ulcers of groin area History of Wound: HPI per nursing Mónica is a pleasant 74 yo woman that presents to the wound healing center for evaluation and treatment recommendations for nonhealing ulcers that are in her bilateral groin folds that have been present and waxed and waned in severity for12 years. She reports that she has also had urinary incontinence that started around that time as well and she has been wearing disposable incontinence pads daily since then. She has never been on any medication for urinary incontinence and has a urology appointment scheduled for the end of this month but does not know who she is seeing. She reports that the areas bleed and drain pratt fluid intermittently. At some points there have been 5 spots of blood and currently there is about 2. She is using Zinc oxide to the areas a few times/day. She usesrubbing alcohol on her areas after each restroom visit. She has been advised to use topical antibiotic ointment by her PCP but it wild. She is otherwise uncomplicated and does not have history of diabetes. She denies fever, chills, erythema, increased drainage and odor. She has had some cognitive changes over the last 6 months post her hip replacement surgery which may be due to dementia or anesthesia reaction. Her brother Gerson accompanies her today and helps somewhat with the history. HPI from encounter, 11 April 2025: The patient is a 75-year-old female presenting with hidradenitis suppurativa jose possible Bartholin cyst. The hidradenitis suppurativa has been persistent, with lesions that fluctuate in size but do not resolve completely. The patient reports minimal drainage from the lesions, and there is concern about potential infection. 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 The patient has been using Kotex pads due to bladder issues, which may have exacerbated the condition. The patient also reports a painful swelling in the right labium majora, suspected to be a Bartholin cyst. She has not previously consulted an WELDER APPRENTICE GAS forthis issue. The patient has experienced significant unintentional weight loss, losing 70 pounds over the last few months, which is concerning. She has not yet undergone a mammogram, although it is planned, and she had a colonoscopy three years ago, with a recommendation for a repeat in five years. Attestation: Documentation on this patient encounter was supported using ambient scribe technology/ voice AI technology. The patient consented to recording for the purpose of documenting the encounter. Provider reviewed content of the generatednote prior to signature. Subjective Subjective The patient is a 75-year-old female presenting with wound care management and evaluation of a HS. The patient has been performing daily dressing changes for her groin wounds, which have shown significant improvement with almost complete reepithelialization and no signs of infection or purulent drainage. The wounds are being managed with Aquacel AG dressings, which are changed after showering. The patient reports a cyst near the introitus, suspected to be a Bartholin cyst,which remains inflamed and painful. She has an upcoming appointment with her WELDER APPRENTICE GAS for further evaluation and management of this cyst. Attestation: Documentation on this patient encounter was supported using ambient scribe technology/ voice AI technology. The patient consented to recording for the purpose of documenting the encounter. Provider reviewed content of the generatednote prior to signature. Objective Data Objective Data - Integumentary: Reports drainage from groin wounds, no purulent drainage noted. - Genitourinary: Reports inflamed and painful cyst near introitus. Vital Signs: Vital Signs Temp Pulse Resp BP O2 Del Method 97.6 F L 64 18 119/61 Room Air 04/18/25 09:30 04/18/25 09:30 04/18/25 09:30 04/18/25 09:30 04/18/25 09:30 Oxygen Delivery Method Room Air Lab / Micro Data Micro: Microbiology 04/11/25 15:15 Ulcer, Decubitus - Other Gram Stain - Final 04/11/25 15:15 Ulcer, Decubitus - Other Wound Culture - Final Proteus mirabilis 04/11/25 15:15 Ulcer, Decubitus - Other Anaerobic Culture - Final No anaerobic bacteria isolated. Charges/Coding Visit Charges Office Visits / Consults: 10091 OV L3 Est 20min Physical Exam Narrative - Integumentary: Right and left groin wounds almost completely reepithelialized,no tunneling, no purulent drainage, no infection noted in these areas. - Genitourinary: Cyst near introitus appears inflamed and painful, potentially aBartholin cyst (right side). Female dietitian teacher present during my exam. Debridement Note Debridement Note No debridement was completed: No debridement was completed today Post-Debridement Measurements and Additional Note: Post-Debridement Measurements/Treatment SHAYNA - Nurse 1 - General Ulcer Assessment Start: 04/11/25 14:30 Freq: Status: Active Protocol: JOSE ELIAS Activity Type Activity Date Activity User E-sign Co-sign Detail Recorded Client Recorded Date Recorded By Document 04/11/25 14:30 ML [id number] 04/11/25 14:40 ML Document 04/18/25 09:30 KW [id number] 04/18/25 09:51 KW 04/11/25 04/18/25 14:30 09:30 - Today's Visit Information Type of service Initial Visit Initial Visit Arrival Mode Ambulatory Ambulatory,Cane Transfer Assistance None Patient Identification Verified (Name & Yes Yes ) Patient Requires Transmission-Based No Precautions Vital Signs Temperature (97.8 F-99.1 F) 95.8 F L 97.6 F L Temperature Source Temporal Temporal Pulse Rate (60-100) 65 64 Pulse Location Monitor Monitor Respiratory Rate (12-18) 14 18 Respiratory rate source Monitor Observation Oxygen Delivery Method Room Air Blood Pressure (90/60-120/80) 140/74 H 119/61 Blood Pressure Mean (mm Hg) 96 80 Source Monitor Monitor Position Sitting Sitting Blood Pressure Location Right Arm Right Arm History Since Last Visit- (Skip if this is Patient's initial visit) Have you changed medications since your No last visit? Any new allergies or adverse reactions No Had a fall/change in ADL's that may No increase risk of falls Signs or symptoms of abuse and/or No neglect since last visit Have you been in the hospital since your No last visit? Has dressing in place as prescribed Yes Has compression in place as prescribed N/A Has offloadiing in place as prescribed N/A Experienced any changes in pain level or No management Left Footwear Regular Shoe Right Footwear Regular Shoe Pain Scale: 0-10 Numeric Is Patient Pain Free? Yes Yes WC - Nurse 1 - General Ulcer Measurement Start: 04/11/25 14:30 Freq: Status: Active Protocol: Activity Type Activity Date Activity User E-sign Co-sign Detail Recorded Client Recorded Date Recorded By Document 04/11/25 14:30 ML [id number] 04/11/25 14:40 ML Document 04/18/25 09:30 KW [id number] 04/18/25 09:51 KW 04/11/25 04/18/25 14:30 09:30 Wound Center Nurse 1 2. R groin -Current Size (cm) - Length 0.1 -Current Size (cm) - Width 0.1 -Current Size (cm) - Depth 0.1 -Total Square Cm 0.01 -Exudate Amt Small Small -Exudate Type Serosanguineous Serosanguineous -Wound Margin Indistinct, Non -Visible -Slough/Fibrin No -Necrosis Amt None Present (0 %) -Texture (Carol-wound Skin Appearance) Assessed Assessed, Localized Edema -Moisture (Carol-wound Skin Appearance) Assessed Assessed -Color (Carol-wound Skin Appearance) Assessed Assessed, Erythema -Temperature (Carol-wound Skin No Abnormality No Abnormality Appearance) (Pt Warm) (Pt Warm) -Tenderness on Palpation (Carol-wound Yes No Skin Appearance) -Ulcer Cleansing Soap and Water Soap and Water -Foul Odor after Cleansing No -Anesthetic Used 5% Lidocaine 5% Lidocaine Gel Gel 1. L groin -Current Size (cm) - Length 0.1 -Current Size (cm) - Width 0.1 -Current Size (cm) - Depth 0.1 -Total Square Cm 0.01 -Exudate Amt Small Small -Exudate Type Serosanguineous Serosanguineous -Wound Margin Indistinct, Non -Visible -Granulation Amt Small (1-33%) -Granulation Quality Red -Slough/Fibrin No -Texture (Carol-wound Skin Appearance) Assessed Assessed -Moisture (Carol-wound Skin Appearance) Assessed Assessed -Color (Carol-wound Skin Appearance) Assessed Assessed, Erythema -Temperature (Carol-wound Skin No Abnormality No Abnormality Appearance) (Pt Warm) (Pt Warm) -Tenderness on Palpation (Carol-wound No Skin Appearance) -Ulcer Cleansing Soap and Water Soap and Water -Foul Odor after Cleansing No No -Anesthetic Used 5% Lidocaine 5% Lidocaine Gel Gel WC - Nurse 2 - General Ulcer CM Notes Start: 04/11/25 14:30 Freq: Status: Active Protocol: Activity Type Activity Date Activity User E-sign Co-sign Detail Recorded Client Recorded Date Recorded By Document 04/11/25 15:24 [id number] 04/11/25 15:26 Document 04/18/25 10:20 DS [id number] 04/18/25 10:22 DS 04/11/25 04/18/25 15:24 10:20 Wound Center Nurse 2 2. R groin -Time 15:24 10:20 -Correct Patient Yes Yes -Correct Side, Site, Position Yes Yes -Correct Procedure Yes -Procedure Performed Yes No -Type of Procedure Debridement -Clinical Debridement Subcutaneous -Tissue Removed Subcutaneous -Post Debridement (cm) - Length 1 -Post Debridement (cm) - Width 1 -Post Debridement (cm) - Depth 1 -Total Square (Post) (cm) 1 -Area of Debridement (cm) - Length 1 -Area of Debridement (cm) - Width 1 -Total Square (Area) (cm) 1 -Tunneling No -Undermining/Tunneling No -Circular Undermining No -Wound/Ulcer Outcome Not Healed Not Healed -Ulcer Cleansing Rinsed/ Irrigated with Saline -Foul Odor after Cleansing No -Bioengineered Tissue No -Bleeding Controlled with Pressure,Silver Nitrate ($) -Treatment Response Procedure Tolerated Well -Offloading No -Debridement - Subq, 1st 20sq cm Yes -I&D / Paring / Biopsy Tangential bx skin (eg:shave, scoop, saucerize, curette), single lesion 1. L groin -Time 15:24 10:20 -Correct Patient Yes Yes -Correct Side, Site, Position Yes Yes -Correct Procedure Yes -Procedure Performed Yes No -Type of Procedure Debridement -Clinical Debridement Subcutaneous -Tissue Removed Subcutaneous -Post Debridement (cm) - Length 2 -Post Debridement (cm) - Width 1 -Post Debridement (cm) - Depth 1 -Total Square (Post) (cm) 2 -Area of Debridement (cm) - Length 2 -Area of Debridement (cm) - Width 1 -Total Square (Area) (cm) 2 -Tunneling No -Undermining/Tunneling No -Circular Undermining No -Wound/Ulcer Outcome Not Healed Not Healed -Ulcer Cleansing Rinsed/ Irrigated with Saline -Foul Odor after Cleansing No -Bioengineered Tissue No -Bleeding Controlled with Pressure,Silver Nitrate ($) -Treatment Response Procedure Tolerated Well -Offloading No -Debridement - Subq, 1st 20sq cm No -I&D / Paring / Biopsy Tangential bx skin (eg:shave, scoop, saucerize, curette), single lesion Pain Scale: 0-10 Numeric Is Patient Pain Free? Yes Yes - Nurse 3 - General Ulcer D/C NN Start: 04/11/25 14:30 Freq: Status: Active Protocol: Activity Type Activity Date Activity User E-sign Co-sign Detail Recorded Client Recorded Date Recorded By Document 04/11/25 16:06 DL [id number] 04/11/25 16:11 DL Document 04/18/25 10:32 DL [id number] 04/18/25 10:33 DL 04/11/25 04/18/25 16:06 10:32 Wound Care Center Nurse 3 2. R groin -Ulcer Cleansing Soap and Water Rinsed/ Irrigated with Saline -Foul Odor after Cleansing No No -Primary Dressing Applied Aquacel AG 4x4 Aquacel AG 4x4 -Primary Dressing Covered/Secured with Dry Gauze Dry Gauze, Secured with Tape -Aquacel AG 4x4 1 1 1. L groin -Ulcer Cleansing Soap and Water Rinsed/ Irrigated with Saline -Foul Odor after Cleansing No No -Other Dressing aqaucel ag aquacel ag -Primary Dressing Covered/Secured with Dry Gauze Dry Gauze, Secured with Tape -Wound Comment(s) Dressing instruction given to pt and family member. Pt pleasent but overwelmed. Referral to may be needed. Treatment Response Procedure Procedure Tolerated Well Tolerated Well Pain Scale: 0-10 Numeric Is Patient Pain Free? Yes Yes WC - Visit Discharge Discharge Condition Stable Stable Ambulatory Status Ambulatory Ambulatory Transportation Private [facility] Facility Type Home Health Home Health Orders Sent Yes: Juan Yes Health Care Assessment/Plan Assessment/Plan (1) Skin ulcer of right groin with fat layer exposed: CODE(S): L98.492 - Non-pressure chronic ulcer of skin of other sites with fat layer exposed (2) Ulcer of left groin with fat layer exposed: CODE(S): L98.492 - Non-pressure chronic ulcer of skin of other sites with fat layer exposed (3) Hidradenitis suppurativa: CODE(S): L73.2 - Hidradenitis suppurativa PLAN: Plan 1. Hidradenitis suppurativa Resolving in the bilateral groin after clinic I&D. The plan includes cleaning the wounds, draining fluid collections, and packing the wounds with Aquacel Ag (silver alginate) daily. A referral to a labeling associate for further management, including potential Kenalog injections and doxycycline, is considered. 2. Possible Bartholin cyst The patient reports a painful swelling on the right vulva near introitus. A referral to an WELDER APPRENTICE GAS is planned for further evaluation and management of the suspected Bartholin cyst (Scheduled with physician MANAGER CAFE on ) 3. Unintentional weight loss The patient has experienced significant weight loss over the past few months. A mammogram is planned, and further evaluation of the weight loss is necessary to rule out underlying causes. I have ordered a mammogram to start. - Clean and pack the wounds daily with Aquacel Ag as instructed (daily remove and replace) - Follow up with the labeling associate for potential Kenalog injections and doxycycline treatment. - Schedule an appointment with an WELDER APPRENTICE GAS for evaluation of the possible Bartholin cyst. - Plan for a mammogram to investigate the cause of weight loss. Follow-up in 2 weeks 04/18/25 1322 <Electronically signed by Kasi Eugene MD> Cosigner Signature (if applicable): CC: ~ Signed [facility] Work Phone: [phone] Progress note [facility] [address] [place] [address] Progress Note - Wound Care 04/18/25 1319 MR#: [id number] Acct: [id number] Name: MÓNICA DECKER Rep #:[id number] : 1950 75 From: Kasi Euegne MD PCP: Dr. Mateo Marmolejo MD Status:REG RCR Location: History of Present Illness Date of Service: 04/18/25 Chief Complaint: Nonhealing ulcers of groin area History of Wound: HPI per nursing Mónica is a pleasant 74 yo woman that presents to the wound healing center for evaluation and treatment recommendations for nonhealing ulcers that are in her bilateral groin folds that have been present and waxed and waned in severity for12 years. She reports that she has also had urinary incontinence that started around that time as well and she has been wearing disposable incontinence pads daily since then. She has never been on any medication for urinary incontinence and has a urology appointment scheduled for the end of this month but does not know who she is seeing. She reports that the areas bleed and drain pratt fluid intermittently. At some points there have been 5 spots of blood andcurrently there is about 2. She is using Zinc oxide to the areas a few times/day. She usesrubbing alcohol on her areas after each restroom visit. She has been advised to use topical antibiotic ointment by her PCP but it wild. She is otherwise uncomplicated and does not have history of diabetes. She denies fever, chills, erythema, increased drainage and odor. She has had some cognitive changes over the last 6 months post her hip replacement surgery which may be due to dementia or anesthesia reaction. Her brother Gerson accompanies her today and helps somewhat with the history. HPI from encounter, 11 April 2025: The patient is a 75-year-old female presenting with hidradenitis suppurativa jose possible Bartholin cyst. The hidradenitis suppurativa has been persistent, with lesions that fluctuate in size but donot resolve completely. The patient reports minimal drainage from the lesions, and there is concernabout potential infection. 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 The patient has been using Kotex pads due to bladder issues, which may have exacerbated the condition. The patient also reports a painful swelling in the right labium majora, suspected to be a Bartholincyst. She has not previously consulted an WELDER APPRENTICE GAS forthis issue. The patient has experienced significant unintentional weight loss, losing 70 pounds over the last few months, which is concerning. She has not yet undergone a mammogram, although it is planned, and she had a colonoscopy three years ago, with a recommendation for a repeat in five years. Attestation: Documentation on this patient encounter was supported using ambient scribe technology/ voice AI technology. The patient consented to recording for the purpose of documenting the encounter. Provider reviewed content of the generatednote prior to signature. Subjective Subjective The patient is a 75-year-old female presenting with wound care management and evaluation of a HS. The patient has been performing daily dressing changes for her groin wounds, which have shown significant improvement with almost complete reepithelialization and no signs of infection or purulent drainage. The wounds are being managed with Aquacel AG dressings, which are changed after showering. The patient reports a cyst near the introitus, suspected to be a Bartholin cyst,which remains inflamed and painful. She has an upcoming appointment with her WELDER APPRENTICE GAS for further evaluation and management of this cyst. Attestation: Documentation on this patient encounter was supported using ambient scribe technology/ voice AI technology. The patient consented to recording for the purpose of documenting the encounter. Provider reviewed content of the generatednote prior to signature. Objective Data Objective Data - Integumentary: Reports drainage from groin wounds, no purulent drainage noted. - Genitourinary: Reports inflamed and painful cyst near introitus. Vital Signs: Vital Signs Temp Pulse Resp BP O2 Del Method 97.6 F L 64 18 119/61 Room Air 04/18/25 09:30 04/18/25 09:30 04/18/25 09:30 04/18/25 09:30 04/18/25 09:30 Oxygen Delivery Method Room Air Lab / Micro Data Micro: Microbiology 04/11/25 15:15 Ulcer, Decubitus - Other Gram Stain - Final 04/11/25 15:15 Ulcer, Decubitus - Other Wound Culture - Final Proteus mirabilis 04/11/25 15:15 Ulcer, Decubitus - Other Anaerobic Culture - Final No anaerobic bacteria isolated. Charges/Coding Visit Charges Office Visits / Consults: 64674 OV L3 Est 20min Physical Exam Narrative - Integumentary: Right and left groin wounds almost completely reepithelialized,no tunneling, no purulent drainage, no infection noted in these areas. - Genitourinary: Cyst near introitus appears inflamed and painful, potentially aBartholin cyst (right side). Female dietitian teacher present during my exam. Debridement Note Debridement Note No debridement was completed: No debridement was completed today Post-Debridement Measurements and Additional Note: Post-Debridement Measurements/Treatment WC - Nurse 1 - General Ulcer Assessment Start: 04/11/25 14:30 Freq: Status: Active Protocol: SHAYNA.JOSE ANGEL Activity Type Activity Date Activity User E-sign Co-sign Detail Recorded Client Recorded Date Recorded By Document 04/11/25 14:30 ML [id number] 04/11/25 14:40 ML Document 04/18/25 09:30 KW [id number] 04/18/25 09:51 KW 04/11/25 04/18/25 14:30 09:30 WC - Today's Visit Information Type of service Initial Visit Initial Visit Arrival Mode Ambulatory Ambulatory,Cane Transfer Assistance None Patient Identification Verified (Name & Yes Yes ) Patient Requires Transmission-Based No Precautions Vital Signs Temperature (97.8 F-99.1 F) 95.8 F L 97.6 F L Temperature Source Temporal Temporal Pulse Rate (60-100) 65 64 Pulse Location Monitor Monitor Respiratory Rate (12-18) 14 18 Respiratory rate source Monitor Observation Oxygen Delivery Method Room Air Blood Pressure (90/60-120/80) 140/74 H 119/61 Blood Pressure Mean (mm Hg) 96 80 Source Monitor Monitor Position Sitting Sitting Blood Pressure Location Right Arm Right Arm History Since Last Visit- (Skip if this is Patient's initial visit) Have you changed medications since your No last visit? Any new allergies or adverse reactions No Had a fall/change in ADL's that may No increase risk of falls Signs or symptoms of abuse and/or No neglect since last visit Have you been in the hospital since your No last visit? Has dressing in place as prescribed Yes Has compression in place as prescribed N/A Has offloadiing in place as prescribed N/A Experienced any changes in pain level or No management Left Footwear Regular Shoe Right Footwear Regular Shoe Pain Scale: 0-10 Numeric Is Patient Pain Free? Yes Yes WC - Nurse 1 - General Ulcer Measurement Start: 04/11/25 14:30 Freq: Status: Active Protocol: Activity Type Activity Date Activity User E-sign Co-sign Detail Recorded Client Recorded Date Recorded By Document 04/11/25 14:30 ML [id number] 04/11/25 14:40 ML Document 04/18/25 09:30 KW [id number] 04/18/25 09:51 KW 04/11/25 04/18/25 14:30 09:30 Wound Center Nurse 1 2. R groin -Current Size (cm) - Length 0.1 -Current Size (cm) - Width 0.1 -Current Size (cm) - Depth 0.1 -Total Square Cm 0.01 -Exudate Amt Small Small -Exudate Type Serosanguineous Serosanguineous -Wound Margin Indistinct, Non -Visible -Slough/Fibrin No -Necrosis Amt None Present (0 %) -Texture (Carol-wound Skin Appearance) Assessed Assessed, Localized Edema -Moisture (Carol-wound Skin Appearance) Assessed Assessed -Color (Carol-wound Skin Appearance) Assessed Assessed, Erythema -Temperature (Carol-wound Skin No Abnormality No Abnormality Appearance) (Pt Warm) (Pt Warm) -Tenderness on Palpation (Carol-wound Yes No Skin Appearance) -Ulcer Cleansing Soap and Water Soap and Water -Foul Odor after Cleansing No -Anesthetic Used 5% Lidocaine 5% Lidocaine Gel Gel 1. L groin -Current Size (cm) - Length 0.1 -Current Size (cm) - Width 0.1 -Current Size (cm) - Depth 0.1 -Total Square Cm 0.01 -Exudate Amt Small Small -Exudate Type Serosanguineous Serosanguineous -Wound Margin Indistinct, Non -Visible -Granulation Amt Small (1-33%) -Granulation Quality Red -Slough/Fibrin No -Texture (Carol-wound Skin Appearance) Assessed Assessed -Moisture (Carol-wound Skin Appearance) Assessed Assessed -Color (Carol-wound Skin Appearance) Assessed Assessed, Erythema -Temperature (Carol-wound Skin No Abnormality No Abnormality Appearance) (Pt Warm) (Pt Warm) -Tenderness on Palpation (Carol-wound No Skin Appearance) -Ulcer Cleansing Soap and Water Soap and Water -Foul Odor after Cleansing No No -Anesthetic Used 5% Lidocaine 5% Lidocaine Gel Gel WC - Nurse 2 - General Ulcer CM Notes Start: 04/11/25 14:30 Freq: Status: Active Protocol: Activity Type Activity Date Activity User E-sign Co-sign Detail Recorded Client Recorded Date Recorded By Document 04/11/25 15:24 JF [id number] 04/11/25 15:26 JF Document 04/18/25 10:20 DS [id number] 04/18/25 10:22 DS 04/11/25 04/18/25 15:24 10:20 Wound Center Nurse 2 2. R groin -Time 15:24 10:20 -Correct Patient Yes Yes -Correct Side, Site, Position Yes Yes -Correct Procedure Yes -Procedure Performed Yes No -Type of Procedure Debridement -Clinical Debridement Subcutaneous -Tissue Removed Subcutaneous -Post Debridement (cm) - Length 1 -Post Debridement (cm) - Width 1 -Post Debridement (cm) - Depth 1 -Total Square (Post) (cm) 1 -Area of Debridement (cm) - Length 1 -Area of Debridement (cm) - Width 1 -Total Square (Area) (cm) 1 -Tunneling No -Undermining/Tunneling No -Circular Undermining No -Wound/Ulcer Outcome Not Healed Not Healed -Ulcer Cleansing Rinsed/ Irrigated with Saline -Foul Odor after Cleansing No -Bioengineered Tissue No -Bleeding Controlled with Pressure,Silver Nitrate ($) -Treatment Response Procedure Tolerated Well -Offloading No -Debridement - Subq, 1st 20sq cm Yes -I&D / Paring / Biopsy Tangential bx skin (eg:shave, scoop, saucerize, curette), single lesion 1. L groin -Time 15:24 10:20 -Correct Patient Yes Yes -Correct Side, Site, Position Yes Yes -Correct Procedure Yes -Procedure Performed Yes No -Type of Procedure Debridement -Clinical Debridement Subcutaneous -Tissue Removed Subcutaneous -Post Debridement (cm) - Length 2 -Post Debridement (cm) - Width 1 -Post Debridement (cm) - Depth 1 -Total Square (Post) (cm) 2 -Area of Debridement (cm) - Length 2 -Area of Debridement (cm) - Width 1 -Total Square (Area) (cm) 2 -Tunneling No -Undermining/Tunneling No -Circular Undermining No -Wound/Ulcer Outcome Not Healed Not Healed -Ulcer Cleansing Rinsed/ Irrigated with Saline -Foul Odor after Cleansing No -Bioengineered Tissue No -Bleeding Controlled with Pressure,Silver Nitrate ($) -Treatment Response Procedure Tolerated Well -Offloading No -Debridement - Subq, 1st 20sq cm No -I&D / Paring / Biopsy Tangential bx skin (eg:shave, scoop, saucerize, curette), single lesion Pain Scale: 0-10 Numeric Is Patient Pain Free? Yes Yes - Nurse 3 - General Ulcer D/C NN Start: 04/11/25 14:30 Freq: Status: Active Protocol: Activity Type Activity Date Activity User E-sign Co-sign Detail Recorded Client Recorded Date Recorded By Document 04/11/25 16:06 DL [id number] 04/11/25 16:11 DL Document 04/18/25 10:32 DL [id number] 04/18/25 10:33 DL 04/11/25 04/18/25 16:06 10:32 Wound Care Center Nurse 3 2. R groin -Ulcer Cleansing Soap and Water Rinsed/ Irrigated with Saline -Foul Odor after Cleansing No No -Primary Dressing Applied Aquacel AG 4x4 Aquacel AG 4x4 -Primary Dressing Covered/Secured with Dry Gauze Dry Gauze, Secured with Tape -Aquacel AG 4x4 1 1 1. L groin -Ulcer Cleansing Soap and Water Rinsed/ Irrigated with Saline -Foul Odor after Cleansing No No -Other Dressing aqaucel ag aquacel ag -Primary Dressing Covered/Secured with Dry Gauze Dry Gauze, Secured with Tape -Wound Comment(s) Dressing instruction given to pt and family member. Pt pleasent but overwelmed. Referral to HH may be needed. Treatment Response Procedure Procedure Tolerated Well Tolerated Well Pain Scale: 0-10 Numeric Is Patient Pain Free? Yes Yes WC - Visit Discharge Discharge Condition Stable Stable Ambulatory Status Ambulatory Ambulatory Transportation Private Auto Facility Type Home Health Home Health Orders Sent Yes: Juan Yes Health Care Assessment/Plan Assessment/Plan (1) Skin ulcer of right groin with fat layer exposed: CODE(S): L98.492 - Non-pressure chronic ulcer of skin of other sites with fat layer exposed (2) Ulcer of left groin with fat layer exposed: CODE(S): L98.492 - Non-pressure chronic ulcer of skin of other sites with fat layer exposed (3) Hidradenitis suppurativa: CODE(S): L73.2 - Hidradenitis suppurativa PLAN: Plan 1. Hidradenitis suppurativa Resolving in the bilateral groin after clinic I&D. The plan includes cleaning the wounds, draining fluid collections, and packing the wounds with Aquacel Ag (silver alginate) daily. A referral toa labeling associate for further management, including potential Kenalog injections and doxycycline, is considered. 2. Possible Bartholin cyst The patient reports a painful swelling on the right vulva near introitus. A referral to an WELDER APPRENTICE GAS is planned for further evaluation and management of the suspected Bartholin cyst (Scheduled with physician MANAGER CAFE on ) 3. Unintentional weight loss The patient has experienced significant weight loss over the past few months. A mammogram is planned, and further evaluation of the weight loss is necessary to rule out underlying causes. I have ordered a mammogram to start. - Clean and pack the wounds daily with Aquacel Ag as instructed (daily remove and replace) - Follow up with the labeling associate for potential Kenalog injections and doxycycline treatment. - Schedule an appointment with an WELDER APPRENTICE GAS for evaluation of the possible Bartholin cyst. - Plan for a mammogram to investigate the cause of weight loss. Follow-up in 2 weeks 04/18/25 1322 Cosigner Signature (if applicable): CC: ~ Signed [facility]06-20-2025 Telephone encounter Note* Telephone Encounter - Zulma Burgos RN - 04/15/2025 4:38 PM EDT Vernell with [facility] calls to ask if patient is being prescribed doxycycline by [facility]. No current record of patient being on doxycycline. Last noted was from 11/2024 prescribed for groin wounds. Vernell reports that they are seeing patient for wound care to the groin and not sure who is ordering it. Patient gets meds through [facility]. Recommended Vernell contact [facility] to see who is sending them theorders. Wound care orders are from Dr. Eugene. Nothing further needed. Closing encounter. Zulma Burgos RN [facility]06-20-2025 Miscellaneous Notes* Telephone Encounter - Zulma Burgos RN - 04/15/2025 4:38 PM EDT Vernell with [facility] calls to ask if patient is being prescribed doxycycline by [facility]. No current record of patient being on doxycycline. Last noted was from 11/2024 prescribed for groin wounds. Vernell reports that they are seeing patient for wound care to the groin and not sure who is ordering it. Patient gets meds through [facility]. Recommended Vernell contact [facility] to see who is sending them theorders. Wound care orders are from Dr. Eugene. Nothing further needed. Closing encounter. Zulma Burgos RN documented in this encounter[facility] NoteHNO ID: [id number] Author: BRAYDEN BLOUNT MA Service: ? Author Type: Deli Associate Type: Progress Notes Filed: 04/19/2025 12:12 Note Text: Scan on 04/12/2025 9:00 AM by Marianna Bowens PA-C: Chemistry Scan on 04/12/2025 11:12 AM by Marianna Bowens PA-C: Chemistry Scan on 04/13/2025 9:36 AM by Marianna Bowens PA-C: Miscellaneous Lab View External Labs - Cult, Deep Wound - Groin Ulcer [ID [id number]] Taurus Chang [facility]06-18-2025 History of Present illness Narrative* Taurus Chang MA - 04/13/2025 3:14 PM EDT Scan on 04/12/2025 9:00 AM by Marianna Bowens PA-C: Chemistry Scan on 04/12/2025 11:12 AM by Marianna Bowens PA-C: Chemistry Scan on 04/13/2025 9:36 AM by Provider, LIZY Cabral: Miscellaneous Lab Taurus Chang MA documented in this encounterOhio[facility] History and physical note Author Kasi Eugene [facility] Note Date/Time April 12, 2025 10:1 5am [facility] [address] [place] [address] H&P Exam - Wound Care 04/12/25 1009 MR#: [id number] Acct: [id number] Name: MÓNICA DECKER Rep #:[id number] : 1950 75 From: Kasi Eugene MD PCP: Dr. Mateo Marmolejo MD Status:REG RCR Location: History of Present Illness Date of Service: 04/11/25 Chief Complaint: Nonhealing ulcers of groin area History of Wound: HPI per nursing Mónica is a pleasant 74 yo woman that presents to the wound healing center for evaluation and treatment recommendations for nonhealing ulcers that are in her bilateral groin folds that have been present and waxed and waned in severity for12 years. She reports that she has also had urinary incontinence that started around that time as well and she has been wearing disposable incontinence pads daily since then. She has never been on any medication for urinary incontinence and has a urology appointment scheduled for the end of this month but does not know who she is seeing. She reports that the areas bleed and drain pratt fluid intermittently. At some points there have been 5 spots of blood and currently there is about 2. She is using Zinc oxide to the areas a few times/day. She usesrubbing alcohol on her areas after each restroom visit. She has been advised to use topical antibiotic ointment by her PCP but it wild. She is otherwise uncomplicated and does not have history of diabetes. She denies fever, chills, erythema, increased drainage and odor. She has had some cognitive changes over the last 6 months post her hip replacement surgery which may be due to dementia or anesthesia reaction. Her brother Gerson accompanies her today and helps somewhat with the history. HPI from encounter, 11 April 2025: The patient is a 75-year-old female presenting with hidradenitis suppurativa jose possible Bartholin cyst. The hidradenitis suppurativa has been persistent, with lesions that fluctuate in size but do not resolve completely. The patient reports minimal drainage from the lesions, and there is concern about potential infection. 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 The patient has been using Kotex pads due to bladder issues, which may have exacerbated the condition. The patient also reports a painful swelling in the right labium majora, suspected to be a Bartholin cyst. She has not previously consulted an [facility] forthis issue. The patient has experienced significant unintentional weight loss, losing 70 pounds over the last few months, which is concerning. She has not yet undergone a mammogram, although it is planned, and she had a colonoscopy three years ago, with a recommendation for a repeat in five years. Attestation: Documentation on this patient encounter was supported using ambient scribe technology/ voice AI technology. The patient consented to recording for the purpose of documenting the encounter. Provider reviewed content of the generatednote prior to signature. [facility] Medical History Post-menopausal Depression Anxiety Dementia Open wound Arthritis Non-smoker Shortness of breath on exertion Urinary incontinence Gout Hypothyroid High cholesterol HTN (hypertension) Home Medications ?Medication ?Instructions ?Recorded ?Last Taken ?Type levothyroxine 137 mcg tablet 150 mcg PO DAILY thyroid 01/06/20 01/05/20 History lisinopril 10 mg tablet 40 mg PO DAILY blood pressur e 01/06/20 01/04/20 History amlodipine 10 mg tablet (Norvasc) 10 mg PO DAILY 08/06 Unknown History furosemide 40 mg tablet (Lasix) 40 mg PO DAILY 4 Unknown History pravastatin 10 mg tablet 10 mg PO QHS 08/06/24 Unknow n History allopurinol 300 mg tablet 300 mg PO QDAY 12/10/24 Unkn own History mecobalamin (vitamin B12) 1,000 1,000 mcg PO QDAY 11/27 02/18 Unknown History mcg chewable tablet potassium chloride 20 mEq 20 meq PO QDAY 12/10/24 Unkn own History tablet,extended release donepezil 5 mg tablet 5 mg PO DAILY 01/04/25 Unkno wn History doxycycline hyclate 100 mg tablet 100 mg PO BID Unknown History Allergy/AdvReac Type Severity Reaction Status Date / Time Latex, Natural Rubber Allergy Mild Rash Verified 04/01/25 11:01 Family History Father Colon cancer Mother Hypertension Surgical History S/P D&C (status post dilation and curettage) Status post amputation of finger S/P bladder repair History of left hip replacement H/O thyroidectomy History of right hip replacement Social History Smoking Status: Never smoker additional social history: Single ROS ROS Narrative - Integumentary: Reports persistent lesions with minimal drainage - Genitourinary: Reports painful swelling in the right labium majora - General: Reports significant unintentional weight loss Vital Signs Vital Signs Vital Signs: 04/11/25 14:30 Temperature 95.8 F L Temperature Source Temporal Pulse Rate 65 Respiratory Rate 14 Blood Pressure 140/74 H Blood Pressure Mean 96 Blood Pressure Source Monitor Blood Pressure Position Sitting Blood Pressure Location Right Arm Physical Exam Narrative - Integumentary: Reports persistent lesions with minimal drainage - Genitourinary: Reports painful swelling in the right labium majora - General: Reports significant unintentional weight loss Debridement Note Debridement Note Wound debrided: Right and left groin hidradenitis wounds from hidradenitis suppurativa, HS Wound Grade/Stage: Stage III Type of Debridement: Excisional debridement Anesthesia Used: 4% Lidocaine Solution and - (10 cc of 1% lidocaine with 1- 200,000 epinephrine) Depth: in the subcutaneous layer Percentage of wound debrided: 100 Instrument Used: #15 blade, Forceps and - (And scissors for sharp excision) Tissue Removed: Fluid within the HS cavity and overlying skin over HS cavity Severity: Fat Layer Exposed Amount of bleeding with debridement: Moderate Bleeding Controlled with: Compression and gauze and - (Epinephrine from the local solution) Patient tolerated procedure: Patient tolerated procedure well Debridement Free Text: 15 blade scalpel was used to unroof the right and left groin small 1 x 2 cm hidradenitis lesions. The overlying skin was friable and necrotic and was excised with a 15 blade scalpel and then the scissors were usedto spread gently within the cavity and remove all fluid. Once the cavities wereunroofed with the 15 blade scalpel and the scissors, curette was used to excise further debris within the subcutaneous layer. The wounds were irrigated with copious amounts of normal saline. They were packed with silver alginate Post-Debridement Measurements and Additional Note: Post-Debridement Measurements/Treatment SHAYNA - Nurse 1 - General Ulcer Assessment Start: 04/11/25 14:30 Freq: Status: Active Protocol: JOSE ELIAS Activity Type Activity Date Activity User E-sign Co-sign Detail Recorded Client Recorded Date Recorded By Document 04/11/25 14:30 ML [id number] 04/11/25 14:40 ML 04/11/25 14:30 WC - Today's Visit Information Type of service Initial Visit Arrival Mode Ambulatory Transfer Assistance None Patient Identification Verified (Name & Yes ) Patient Requires Transmission-Based No Precautions Vital Signs Temperature (97.8 F-99.1 F) 95.8 F L Temperature Source Temporal Pulse Rate (60-100) 65 Pulse Location Monitor Respiratory Rate (12-18) 14 Respiratory rate source Monitor Blood Pressure (90/60-120/80) 140/74 H Blood Pressure Mean 96 Source Monitor Position Sitting Blood Pressure Location Right Arm Pain Scale: 0-10 Numeric Is Patient Pain Free? Yes SHAYNA - Nurse 1 - General Ulcer Measurement Start: 04/11/25 14:30 Freq: Status: Active Protocol: Activity Type Activity Date Activity User E-sign Co-sign Detail Recorded Client Recorded Date Recorded By Document 04/11/25 14:30 ML [id number] 04/11/25 14:40 ML 04/11/25 14:30 Wound Center Nurse 1 2. R groin -Current Size (cm) - Length 0.1 -Current Size (cm) - Width 0.1 -Current Size (cm) - Depth 0.1 -Total Square Cm 0.01 -Exudate Amt Small -Exudate Type Serosanguineous -Slough/Fibrin No -Necrosis Amt None Present (0 %) -Texture (Carol-wound Skin Appearance) Assessed -Moisture (Carol-wound Skin Appearance) Assessed -Color (Carol-wound Skin Appearance) Assessed -Temperature (Carol-wound Skin No Abnormality Appearance) (Pt Warm) -Tenderness on Palpation (Carol-wound Yes Skin Appearance) -Ulcer Cleansing Soap and Water -Anesthetic Used 5% Lidocaine Gel 1. L groin -Current Size (cm) - Length 0.1 -Current Size (cm) - Width 0.1 -Current Size (cm) - Depth 0.1 -Total Square Cm 0.01 -Exudate Amt Small -Exudate Type Serosanguineous -Slough/Fibrin No -Texture (Carol-wound Skin Appearance) Assessed -Moisture (Carol-wound Skin Appearance) Assessed -Color (Carol-wound Skin Appearance) Assessed -Temperature (Carol-wound Skin No Abnormality Appearance) (Pt Warm) -Ulcer Cleansing Soap and Water -Foul Odor after Cleansing No -Anesthetic Used 5% Lidocaine Gel WC - Nurse 2 - General Ulcer CM Notes Start: 04/11/25 14:30 Freq: Status: Active Protocol: Activity Type Activity Date Activity User E-sign Co-sign Detail Recorded Client Recorded Date Recorded By Document 04/11/25 15:24 [id number] 04/11/25 15:26 DHAVAL 04/11/25 15:24 Wound Center Nurse 2 2. R groin -Time 15:24 -Correct Patient Yes -Correct Side, Site, Position Yes -Correct Procedure Yes -Procedure Performed Yes -Type of Procedure Debridement -Clinical Debridement Subcutaneous -Tissue Removed Subcutaneous -Post Debridement (cm) - Length 1 -Post Debridement (cm) - Width 1 -Post Debridement (cm) - Depth 1 -Total Square (Post) (cm) 1 -Area of Debridement (cm) - Length 1 -Area of Debridement (cm) - Width 1 -Total Square (Area) (cm) 1 -Tunneling No -Undermining/Tunneling No -Circular Undermining No -Wound/Ulcer Outcome Not Healed -Ulcer Cleansing Rinsed/ Irrigated with Saline -Foul Odor after Cleansing No -Bioengineered Tissue No -Bleeding Controlled with Pressure,Silver Nitrate ($) -Treatment Response Procedure Tolerated Well -Offloading No -Debridement - Subq, 1st 20sq cm Yes -I&D / Paring / Biopsy Tangential bx skin (eg:shave, scoop, saucerize, curette), single lesion 1. L groin -Time 15:24 -Correct Patient Yes -Correct Side, Site, Position Yes -Correct Procedure Yes -Procedure Performed Yes -Type of Procedure Debridement -Clinical Debridement Subcutaneous -Tissue Removed Subcutaneous -Post Debridement (cm) - Length 2 -Post Debridement (cm) - Width 1 -Post Debridement (cm) - Depth 1 -Total Square (Post) (cm) 2 -Area of Debridement (cm) - Length 2 -Area of Debridement (cm) - Width 1 -Total Square (Area) (cm) 2 -Tunneling No -Undermining/Tunneling No -Circular Undermining No -Wound/Ulcer Outcome Not Healed -Ulcer Cleansing Rinsed/ Irrigated with Saline -Foul Odor after Cleansing No -Bioengineered Tissue No -Bleeding Controlled with Pressure,Silver Nitrate ($) -Treatment Response Procedure Tolerated Well -Offloading No -Debridement - Subq, 1st 20sq cm No -I&D / Paring / Biopsy Tangential bx skin (eg:shave, scoop, saucerize, curette), single lesion Pain Scale: 0-10 Numeric Is Patient Pain Free? Yes - Nurse 3 - General Ulcer D/C NN Start: 04/11/25 14:30 Freq: Status: Active Protocol: Activity Type Activity Date Activity User E-sign Co-sign Detail Recorded Client Recorded Date Recorded By Document 04/11/25 16:06 DL [id number] 04/11/25 16:11 DL 04/11/25 16:06 Wound Care Center Nurse 3 2. R groin -Ulcer Cleansing Soap and Water -Foul Odor after Cleansing No -Primary Dressing Applied Aquacel AG 4x4 -Primary Dressing Covered/Secured with Dry Gauze -Aquacel AG 4x4 1 1. L groin -Ulcer Cleansing Soap and Water -Foul Odor after Cleansing No -Other Dressing aqaucel ag -Primary Dressing Covered/Secured with Dry Gauze -Wound Comment(s) Dressing instruction given to pt and family member. Pt pleasent but overwelmed. Referral to HH may be needed. Treatment Response Procedure Tolerated Well Pain Scale: 0-10 Numeric Is Patient Pain Free? Yes - Visit Discharge Discharge Condition Stable Ambulatory Status Ambulatory Transportation Private [facility] Facility Type Home Health Orders Sent Yes: [facility] Lab / Micro Data Micro: Microbiology 04/11/25 15:15 Ulcer, Decubitus - Other Wound Culture - Preliminary No growth-Final to follow Charges/Coding Procedures Integumentary [id number]: [id number] Charmaine subq tissue 20 sq cm/< Assessment/Plan Assessment/Plan (1) Skin ulcer of right groin with fat layer exposed: CODE(S): L98.492 - Non-pressure chronic ulcer of skin of other sites with fat layer exposed (2) Ulcer of left groin with fat layer exposed: CODE(S): L98.492 - Non-pressure chronic ulcer of skin of other sites with fat layer exposed (3) Hidradenitis suppurativa: CODE(S): L73.2 - Hidradenitis suppurativa PLAN: Plan 1. Hidradenitis suppurativa The patient presents with Brown Stage 1 on the left groin and Stage 2 on the right groin. The plan includes cleaning the wounds, draining fluid collections, and packing the wounds with Aquacel Ag (silver alginate) daily. A referral to a labeling associate for further management, including potential Kenalog injections anddoxycycline, is considered. 2. Possible Bartholin cyst The patient reports a painful swelling in the right labium majora. A referral myla [facility] is planned for further evaluation and management of the suspected Bartholin cyst. 3. Unintentional weight loss The patient has experienced significant weight loss over the past few months. A mammogram is planned, and further evaluation of the weight loss is necessary to rule out underlying causes. - Clean and pack the wounds daily with Aquacel Ag as instructed (daily remove and replace) - Follow up with the labeling associate for potential Kenalog injections and doxycycline treatment. - Schedule an appointment with an [facility] for evaluation of the possible Bartholin cyst. - Plan for a mammogram to investigate the cause of weight loss. Follow-up in 1 week 04/12/25 1015 <Electronically signed by Kasi Eugene MD> Cosigner Signature (if applicable): CC: ~ Signed [facility] Work Phone: [phone] History and physical note [facility] [address] [place] [address] H&P Exam - Wound Care 04/12/25 1009 MR#: [id number] Acct: [id number] Name: MÓNICA DECKER Rep #:[id number] : 1950 75 From: Kasi Eugene MD PCP: Dr. Mateo Marmolejo MD Status:REG RCR Location: History of Present Illness Date of Service: 04/11/25 Chief Complaint: Nonhealing ulcers of groin area History of Wound: HPI per nursing Mónica is a pleasant 74 yo woman that presents to the wound healing center for evaluation and treatment recommendations for nonhealing ulcers that are in her bilateral groin folds that have been present and waxed and waned in severity for12 years. She reports that she has also had urinary incontinence that started around that time as well and she has been wearing disposable incontinence pads daily since then. She has never been on any medication for urinary incontinence and has a urology appointment scheduled for the end of this month but does not know who she is seeing. She reports that the areas bleed and drain pratt fluid intermittently. At some points there have been 5 spots of blood andcurrently there is about 2. She is using Zinc oxide to the areas a few times/day. She usesrubbing alcohol on her areas after each restroom visit. She has been advised to use topical antibiotic ointment by her PCP but it wild. She is otherwise uncomplicated and does not have history of diabetes. She denies fever, chills, erythema, increased drainage and odor. She has had some cognitive changes over the last 6 months post her hip replacement surgery which may be due to dementia or anesthesia reaction. Her brother Gerson accompanies her today and helps somewhat with the history. HPI from encounter, 11 April 2025: The patient is a 75-year-old female presenting with hidradenitis suppurativa jose possible Bartholin cyst. The hidradenitis suppurativa has been persistent, with lesions that fluctuate in size but donot resolve completely. The patient reports minimal drainage from the lesions, and there is concernabout potential infection. 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 The patient has been using Kotex pads due to bladder issues, which may have exacerbated the condition. The patient also reports a painful swelling in the right labium majora, suspected to be a Bartholincyst. She has not previously consulted an [facility] forthis issue. The patient has experienced significant unintentional weight loss, losing 70 pounds over the last few months, which is concerning. She has not yet undergone a mammogram, although it is planned, and she had a colonoscopy three years ago, with a recommendation for a repeat in five years. Attestation: Documentation on this patient encounter was supported using ambient scribe technology/ voice AI technology. The patient consented to recording for the purpose of documenting the encounter. Provider reviewed content of the generatednote prior to signature. [facility] Medical History Post-menopausal Depression Anxiety Dementia Open wound Arthritis Non-smoker Shortness of breath on exertion Urinary incontinence Gout Hypothyroid High cholesterol HTN (hypertension) Home Medications ?Medication ?Instructions ?Recorded ?Last Taken ?Type levothyroxine 137 mcg tablet 150 mcg PO DAILY thyroid 01/06/20 01/05/20 History lisinopril 10 mg tablet 40 mg PO DAILY blood pressur e 01/06/20 01/04/20 History amlodipine 10 mg tablet (Norvasc) 10 mg PO DAILY 08/06 Unknown History furosemide 40 mg tablet (Lasix) 40 mg PO DAILY 4 Unknown History pravastatin 10 mg tablet 10 mg PO QHS 08/06/24 Unknow n History allopurinol 300 mg tablet 300 mg PO QDAY 12/10/24 Unkn own History mecobalamin (vitamin B12) 1,000 1,000 mcg PO QDAY 11/27 02/18 Unknown History mcg chewable tablet potassium chloride 20 mEq 20 meq PO QDAY 12/10/24 Unkn own History tablet,extended release donepezil 5 mg tablet 5 mg PO DAILY 01/04/25 Unkno wn History doxycycline hyclate 100 mg tablet 100 mg PO BID Unknown History Allergy/AdvReac Type Severity Reaction Status Date / Time Latex, Natural Rubber Allergy Mild Rash Verified 04/01/25 11:01 Family History Father Colon cancer Mother Hypertension Surgical History S/P D&C (status post dilation and curettage) Status post amputation of finger S/P bladder repair History of left hip replacement H/O thyroidectomy History of right hip replacement Social History Smoking Status: Never smoker additional social history: Single ROS ROS Narrative - Integumentary: Reports persistent lesions with minimal drainage - Genitourinary: Reports painful swelling in the right labium majora - General: Reports significant unintentional weight loss Vital Signs Vital Signs Vital Signs: 04/11/25 14:30 Temperature 95.8 F L Temperature Source Temporal Pulse Rate 65 Respiratory Rate 14 Blood Pressure 140/74 H Blood Pressure Mean 96 Blood Pressure Source Monitor Blood Pressure Position Sitting Blood Pressure Location Right Arm Physical Exam Narrative - Integumentary: Reports persistent lesions with minimal drainage - Genitourinary: Reports painful swelling in the right labium majora - General: Reports significant unintentional weight loss Debridement Note Debridement Note Wound debrided: Right and left groin hidradenitis wounds from hidradenitis suppurativa, HS Wound Grade/Stage: Stage III Type of Debridement: Excisional debridement Anesthesia Used: 4% Lidocaine Solution and - (10 cc of 1% lidocaine with 1- 200,000 epinephrine) Depth: in the subcutaneous layer Percentage of wound debrided: 100 Instrument Used: #15 blade, Forceps and - (And scissors for sharp excision) Tissue Removed: Fluid within the HS cavity and overlying skin over HS cavity Severity: Fat Layer Exposed Amount of bleeding with debridement: Moderate Bleeding Controlled with: Compression and gauze and - (Epinephrine from the local solution) Patient tolerated procedure: Patient tolerated procedure well Debridement Free Text: 15 blade scalpel was used to unroof the right and left groin small 1 x 2 cm hidradenitis lesions. The overlying skin was friable and necrotic and was excised with a 15 blade scalpel and then the scissors were usedto spread gently within the cavity and remove all fluid. Once the cavities wereunroofed with the 15 blade scalpel and the scissors, curette was used to excise further debris within the subcutaneous layer. The wounds were irrigated with copious amounts of normal saline. They were packed with silver alginate Post-Debridement Measurements and Additional Note: Post-Debridement Measurements/Treatment - Nurse 1 - General Ulcer Assessment Start: 04/11/25 14:30 Freq: Status: Active Protocol: LOWEXMilana Activity Type Activity Date Activity User E-sign Co-sign Detail Recorded Client Recorded Date Recorded By Document 04/11/25 14:30 ML [id number] 04/11/25 14:40 ML 04/11/25 14:30 WC - Today's Visit Information Type of service Initial Visit Arrival Mode Ambulatory Transfer Assistance None Patient Identification Verified (Name & Yes ) Patient Requires Transmission-Based No Precautions Vital Signs Temperature (97.8 F-99.1 F) 95.8 F L Temperature Source Temporal Pulse Rate (60-100) 65 Pulse Location Monitor Respiratory Rate (12-18) 14 Respiratory rate source Monitor Blood Pressure (90/60-120/80) 140/74 H Blood Pressure Mean 96 Source Monitor Position Sitting Blood Pressure Location Right Arm Pain Scale: 0-10 Numeric Is Patient Pain Free? Yes WC - Nurse 1 - General Ulcer Measurement Start: 04/11/25 14:30 Freq: Status: Active Protocol: Activity Type Activity Date Activity User E-sign Co-sign Detail Recorded Client Recorded Date Recorded By Document 04/11/25 14:30 ML [id number] 04/11/25 14:40 ML 04/11/25 14:30 Wound Center Nurse 1 2. R groin -Current Size (cm) - Length 0.1 -Current Size (cm) - Width 0.1 -Current Size (cm) - Depth 0.1 -Total Square Cm 0.01 -Exudate Amt Small -Exudate Type Serosanguineous -Slough/Fibrin No -Necrosis Amt None Present (0 %) -Texture (Carol-wound Skin Appearance) Assessed -Moisture (Carol-wound Skin Appearance) Assessed -Color (Carol-wound Skin Appearance) Assessed -Temperature (Carol-wound Skin No Abnormality Appearance) (Pt Warm) -Tenderness on Palpation (Carol-wound Yes Skin Appearance) -Ulcer Cleansing Soap and Water -Anesthetic Used 5% Lidocaine Gel 1. L groin -Current Size (cm) - Length 0.1 -Current Size (cm) - Width 0.1 -Current Size (cm) - Depth 0.1 -Total Square Cm 0.01 -Exudate Amt Small -Exudate Type Serosanguineous -Slough/Fibrin No -Texture (Carol-wound Skin Appearance) Assessed -Moisture (Carol-wound Skin Appearance) Assessed -Color (Carol-wound Skin Appearance) Assessed -Temperature (Carol-wound Skin No Abnormality Appearance) (Pt Warm) -Ulcer Cleansing Soap and Water -Foul Odor after Cleansing No -Anesthetic Used 5% Lidocaine Gel - Nurse 2 - General Ulcer CM Notes Start: 04/11/25 14:30 Freq: Status: Active Protocol: Activity Type Activity Date Activity User E-sign Co-sign Detail Recorded Client Recorded Date Recorded By Document 04/11/25 15:24 JF [id number] 04/11/25 15:26 DHAVAL 04/11/25 15:24 Wound Center Nurse 2 2. R groin -Time 15:24 -Correct Patient Yes -Correct Side, Site, Position Yes -Correct Procedure Yes -Procedure Performed Yes -Type of Procedure Debridement -Clinical Debridement Subcutaneous -Tissue Removed Subcutaneous -Post Debridement (cm) - Length 1 -Post Debridement (cm) - Width 1 -Post Debridement (cm) - Depth 1 -Total Square (Post) (cm) 1 -Area of Debridement (cm) - Length 1 -Area of Debridement (cm) - Width 1 -Total Square (Area) (cm) 1 -Tunneling No -Undermining/Tunneling No -Circular Undermining No -Wound/Ulcer Outcome Not Healed -Ulcer Cleansing Rinsed/ Irrigated with Saline -Foul Odor after Cleansing No -Bioengineered Tissue No -Bleeding Controlled with Pressure,Silver Nitrate ($) -Treatment Response Procedure Tolerated Well -Offloading No -Debridement - Subq, 1st 20sq cm Yes -I&D / Paring / Biopsy Tangential bx skin (eg:shave, scoop, saucerize, curette), single lesion 1. L groin -Time 15:24 -Correct Patient Yes -Correct Side, Site, Position Yes -Correct Procedure Yes -Procedure Performed Yes -Type of Procedure Debridement -Clinical Debridement Subcutaneous -Tissue Removed Subcutaneous -Post Debridement (cm) - Length 2 -Post Debridement (cm) - Width 1 -Post Debridement (cm) - Depth 1 -Total Square (Post) (cm) 2 -Area of Debridement (cm) - Length 2 -Area of Debridement (cm) - Width 1 -Total Square (Area) (cm) 2 -Tunneling No -Undermining/Tunneling No -Circular Undermining No -Wound/Ulcer Outcome Not Healed -Ulcer Cleansing Rinsed/ Irrigated with Saline -Foul Odor after Cleansing No -Bioengineered Tissue No -Bleeding Controlled with Pressure,Silver Nitrate ($) -Treatment Response Procedure Tolerated Well -Offloading No -Debridement - Subq, 1st 20sq cm No -I&D / Paring / Biopsy Tangential bx skin (eg:shave, scoop, saucerize, curette), single lesion Pain Scale: 0-10 Numeric Is Patient Pain Free? Yes WC - Nurse 3 - General Ulcer D/C NN Start: 04/11/25 14:30 Freq: Status: Active Protocol: Activity Type Activity Date Activity User E-sign Co-sign Detail Recorded Client Recorded Date Recorded By Document 04/11/25 16:06 DL [id number] 04/11/25 16:11 DL 04/11/25 16:06 [facility] Center Nurse 3 2. R groin -Ulcer Cleansing Soap and Water -Foul Odor after Cleansing No -Primary Dressing Applied Aquacel AG 4x4 -Primary Dressing Covered/Secured with Dry Gauze -Aquacel AG 4x4 1 1. L groin -Ulcer Cleansing Soap and Water -Foul Odor after Cleansing No -Other Dressing aqaucel ag -Primary Dressing Covered/Secured with Dry Gauze -Wound Comment(s) Dressing instruction given to pt and family member. Pt pleasent but overwelmed. Referral to may be needed. Treatment Response Procedure Tolerated Well Pain Scale: 0-10 Numeric Is Patient Pain Free? Yes WC - Visit Discharge Discharge Condition Stable Ambulatory Status Ambulatory Transportation Private Auto Facility Type Home Health Orders Sent Yes: [facility] Lab / Micro Data Micro: Microbiology 04/11/25 15:15 Ulcer, Decubitus - Other Wound Culture - Preliminary No growth-Final to follow Charges/Coding Procedures Integumentary [id number]: [id number] Charmaine subq tissue 20 sq cm/< Assessment/Plan Assessment/Plan (1) Skin ulcer of right groin with fat layer exposed: CODE(S): L98.492 - Non-pressure chronic ulcer of skin of other sites with fat layer exposed (2) Ulcer of left groin with fat layer exposed: CODE(S): L98.492 - Non-pressure chronic ulcer of skin of other sites with fat layer exposed (3) Hidradenitis suppurativa: CODE(S): L73.2 - Hidradenitis suppurativa PLAN: Plan 1. Hidradenitis suppurativa The patient presents with Brown Stage 1 on the left groin and Stage 2 on the right groin. The planincludes cleaning the wounds, draining fluid collections, and packing the wounds with Aquacel Ag (silver alginate) daily. A referral to a labeling associate for further management, including potential Kenalog injections anddoxycycline, is considered. 2. Possible Bartholin cyst The patient reports a painful swelling in the right labium majora. A referral myla [facility] is planned for further evaluation and management of the suspected Bartholin cyst. 3. Unintentional weight loss The patient has experienced significant weight loss over the past few months. A mammogram is planned, and further evaluation of the weight loss is necessary to rule out underlying causes. - Clean and pack the wounds daily with Aquacel Ag as instructed (daily remove and replace) - Follow up with the labeling associate for potential Kenalog injections and doxycycline treatment. - Schedule an appointment with an [facility] for evaluation of the possible Bartholin cyst. - Plan for a mammogram to investigate the cause of weight loss. Follow-up in 1 week 04/12/25 1015 Cosigner Signature (if applicable): CC: ~ Signed [facility]06-11-2025 NoteHNO ID: [id number] Author: SARAH YING MD Service: ? Author Type: Physician Type: Progress Notes Filed: 04/06/2025 17:55 Note Text: Reason for Visit Follow up HPI Mónica Decker is a 75-year-old female with a history of cognitive impairment, presenting for follow-up on memory issues and recent health concerns. She is accompanied by her brother, who provides additional history. Mónica reports persistent memory issues despite taking donepezil 5 mg, noting occasional moments of confusion and difficulty with tasks such as balancing her checkbook. Her brother observes a slight improvement in her memory since starting the medication, but both are considering an increase in dosage to further enhance cognitive function. She has a history of multiple surgeries and medical interventions, including a recent DANDC for endometrial hyperplasia. Mónica reports cessation of vaginal bleeding but continues to experience bleeding from cutaneous abscesses in the genital area. She describes these abscesses as large, painful, and swollen, resembling big balls on the labia. Mónica recalls a similar but milder condition in her 20s, which she managed with hygiene and alcohol application. She is currently on doxycycline for these abscesses and expresses a desire to discontinue the antibiotic once the underlying issue is resolved. Mónica mentions a planned surgical consultation with Dr. Leiva to address the abscesses, which she believes are related to sweat glands and excess skin from weight loss. Mónica also reports being tested twice for tuberculosis, with inconclusive results, and is scheduled for further imaging. She denies significant respiratory issues, attributing occasional dyspnea to deconditioning. She is also managing electrolyte imbalances, with recent lab results showing hyponatremia and hypermagnesemia. Mónica has increased her intake of salty foods and is taking potassium supplements, along with consuming more bananas and pineapple for their anti-inflammatory properties. She has discontinued magnesium supplements. Her brother notes significant improvement in her mobility, stating that Mónica is more active and spends more time outdoors. She uses a cane primarily for balance and occasionally forgets its location due to memory issues. Social History Tobacco Use Smoking status: Never Smokeless tobacco: Never Tobacco comments: Mom used to smoke, quit 2011 Vaping Use Vaping status: Never Used Substance Use Topics Alcohol use: No Drug use: No Past medical history, appointments, medications, allergies reviewed. Pertinent Lab/Diagnostic Studies are reviewed and discussed today Current Outpatient Medications: levothyroxine (LEVOXYL) 150 mcg tablet cyanocobalamin (VITAMIN B-12) 1,000 mcg tab doxycycline (VIBRA-TABS) 100 mg tablet amLODIPine (NORVASC) 10 mg tablet furosemide (LASIX) 40 mg tablet lisinopril (ZESTRIL) 40 mg tablet pravastatin (PRAVACHOL) 10 mg tablet potassium chloride 20 mEq TbER acetaminophen (TYLENOL) 500 mg tablet donepezil (ARICEPT) 10 mg tablet allopurinol (ZYLOPRIM) 300 mg tablet silver sulfADIAZINE (SILVADENE) 1 % cream polyethylene glycol 3350 17 gram packet Health Maintenance Advance Directive Discussion Covid-19 Vaccine( season)@ Review Of Systems Constitutional: (+) fatigue, (+) weight loss Respiratory: (+) exertional dyspnea Genitourinary: (+) genital pain, (-) vaginal bleeding Musculoskeletal: (+) generalized soreness Skin: (+) genital pustular lesions, (+) genital swelling, (+) bleeding skin lesions Neurological: (+) memory impairment, (+) balance difficulty Psychiatric: (+) irritability Physical Exam BP 130/68 Pulse 64 Resp 14 Wt 73 kg (161 lb) SpO2 98% BMI 31.44 kg/m? GENERAL: NAD, alert and oriented. SKIN: Unremarkable, no rash or skin lesions. HEAD: Normocephalic. EYES: PERRLA, EOMI, conjunctiva clear. EARS: External ears normal, canals clear, TM's normal. NOSE/SINUSES: Nares normal. Septum midline. OROPHARYNX: Lips, mucosa, and tongue normal, good dentition. No oral lesions noted. NECK: Supple, no lymphadenopathy, normal thyroid, no carotid bruits. LUNGS: Clear to auscultation bilaterally, no wheezes/rhonchi/rales. HEART: Regular rate and rhythm, no murmurs. No ectopy. EXTREMITIES: Normal, no deformities, no skin discoloration, no edema. NEURO: Awake, alert and oriented x3, cranial nerves II-XII grossly intact, normal gait, no involuntary motions. Labs: - Serum sodium: Low - Serum magnesium: Elevated Tests: - Tuberculosis screening test: Indeterminate result - [facility] biopsy: Negative for malignant cells Assessment and Plan 1. Alzheimer's disease (HCC) Currently on donepezil 5 mg with slight improvement in cognitive function as observed by family. No adverse effects reported. - Increased donepezil to 10 mg daily. - Re-evaluate cognitive function with MoCA in 3 months. 2 (more content not included)...[facility]06-11-2025 History of Present illness Narrative* Sarah Ying MD - 04/06/2025 5:51 PM EDT Reason for Visit Follow up HPI Mónica Decker is a 75-year-old female with a history of cognitive impairment, presenting for follow-up on memory issues and recent health concerns. She is accompanied by her brother, who provides additional history. Mónica reports persistent memory issues despite taking donepezil 5 mg, noting occasional moments of confusion and difficulty with tasks such as balancing her checkbook. Her brother observes a slight improvement in her memory since starting the medication, but both are considering an increase in dosage to further enhance cognitive function. She has a history of multiple surgeries and medical interventions, including a recent D&C for endometrial hyperplasia. Mónica reports cessation of vaginal bleeding but continues to experience bleeding from cutaneous abscesses in the genital area. She describes these abscesses as large, painful, and swollen, resembling big balls on the labia. Mónica recalls a similar but milder condition in her 20s, which she managed with hygiene and alcohol application. She is currently on doxycycline for these abscesses and expresses a desire to discontinue the antibiotic once the underlying issue is resolved. Mónica mentions a planned surgical consultation with Dr. Leiva to address the abscesses, which she believes are related to sweat glands and excess skin from weight loss. Mónica also reports being tested twice for tuberculosis, with inconclusive results, and is scheduledfor further imaging. She denies significant respiratory issues, attributing occasional dyspnea to deconditioning. She is also managing electrolyte imbalances, with recent lab results showing hyponatremia and hypermagnesemia. Mónica has increased her intake of salty foods and is taking potassium supplements, alongwith consuming more bananas and pineapple for their anti-inflammatory properties. She has discontinued magnesium supplements. Her brother notes significant improvement in her mobility, stating that Mónica is more active and spends more time outdoors. She uses a cane primarily for balance and occasionally forgets its locationdue to memory issues. Social History Tobacco Use Smoking status: Never Smokeless tobacco: Never Tobacco comments: Mom used to smoke, quit 2011 Vaping Use Vaping status: Never Used Substance Use Topics Alcohol use: No Drug use: No Past medical history, appointments, medications, allergies reviewed. Pertinent Lab/Diagnostic Studies are reviewed and discussed today Current Outpatient Medications: levothyroxine (LEVOXYL) 150 mcg tablet cyanocobalamin (VITAMIN B-12) 1,000 mcg tab doxycycline (VIBRA-TABS) 100 mg tablet amLODIPine (NORVASC) 10 mg tablet furosemide (LASIX) 40 mg tablet lisinopril (ZESTRIL) 40 mg tablet pravastatin (PRAVACHOL) 10 mg tablet potassium chloride 20 mEq TbER acetaminophen (TYLENOL) 500 mg tablet donepezil (ARICEPT) 10 mg tablet allopurinol (ZYLOPRIM) 300 mg tablet silver sulfADIAZINE (SILVADENE) 1 % cream polyethylene glycol 3350 17 gram packet Health Maintenance Advance Directive Discussion Covid-19 Vaccine( season)@ Review Of Systems Constitutional: (+) fatigue, (+) weight loss Respiratory: (+) exertional dyspnea Genitourinary: (+) genital pain, (-) vaginal bleeding Musculoskeletal: (+) generalized soreness Skin: (+) genital pustular lesions, (+) genital swelling, (+) bleeding skin lesions Neurological: (+) memory impairment, (+) balance difficulty Psychiatric: (+) irritability Physical Exam BP 130/68 Pulse 64 Resp 14 Wt 73 kg (161 lb) SpO2 98% BMI 31.44 kg/m GENERAL: NAD, alert and oriented. SKIN: Unremarkable, no rash or skin lesions. HEAD: Normocephalic. EYES: PERRLA, EOMI, conjunctiva clear. EARS: External ears normal, canals clear, TM's normal. NOSE/SINUSES: Nares normal. Septum midline. OROPHARYNX: Lips, mucosa, and tongue normal, good dentition. No oral lesions noted. NECK: Supple, no lymphadenopathy, normal thyroid, no carotid bruits. LUNGS: Clear to auscultation bilaterally, no wheezes/rhonchi/rales. HEART: Regular rate and rhythm, no murmurs. No ectopy. EXTREMITIES: Normal, no deformities, no skin discoloration, no edema. NEURO: Awake, alert and oriented x3, cranial nerves II-XII grossly intact, normal gait, no involuntary motions. Labs: - Serum sodium: Low - Serum magnesium: Elevated Tests: - Tuberculosis screening test: Indeterminate result - [facility]&C biopsy: Negative for malignant cells Assessment and Plan 1. Alzheimer's disease (HCC) Currently on donepezil 5 mg with slight improvement in cognitive function as observed by family. Noadverse effects reported. - Increased donepezil to 10 mg daily. - Re-evaluate cognitive function with MoCA in 3 months. 2. Essential hypertension, benign Blood pressure is well-controlled. 3. Primary osteoarthritis of both hips Improvement in mobility and ambulation; patient is more active and requires cane less frequently. 4. Hypermagnesemia Recent lab results indicate elevated magnesium levels. - Advised discontinuation of magnesium supplements. 5. Anemia, unspecified type Recent hb is normal Voice recognition software was used to compose this office note. Please excuse any unintended typographical errors. Recording using ambient Broadband Voice software for draft documentation of the visit was discussed with the patient/authorized personal banking representative; all questions welcomed and answered. Patient/authorized personal banking representative agreed to proceed Sarah Ying MD documented [facility] History of Present illness Narrative* Sharad Rico Tech - 04/06/2025 12:40 PM EDT Radiology Service Progress Note PATIENT NAME: Mónica Decker DATE OF SERVICE: April 06, 2025 TIME: 1:06 PM PATIENT IDENTITY VERIFICATION COMPLETED USING TWO (2) IDENTIFIERS: Name and Date of confirmedby patient verbally. FALL SCREENING: Has the patient had 2 falls in the last year or 1 fall with injury or currently using an Ambulatory Assistive Device (Walker, Cane, Wheelchair, Crutches, etc.)? No PATIENT GENDER DATA: Assigned female at . status: : No status:NO. PATIENT RELEVANT IMPLANT DATA REVIEWED: Not Applicable PATIENT PRESENTS WITH AN IMPLANTABLE OR ATTACHED CELL TOWER CLIMBER: No RADIOLOGY DEPARTMENT: General X-ray: Exam(s) Completed: Chest X-Ray PERIPHERAL IV DATA: Not applicable SIGNED BY: Martina Alfredo April 06, 2025 1:06 PM documented in this encounterOhiohealth [facility]06-11-2025 NoteHNO ID: [id number] Author: SHARAD RICO Tech Service: ? Author Type: Technologist Type: Progress Notes Filed: 04/06/2025 13:06 Note Text: Radiology Service Progress Note PATIENT NAME: Mónica Decker DATE OF SERVICE: April 06, 2025 TIME: 1:06 PM PATIENT IDENTITY VERIFICATION COMPLETED USING TWO (2) IDENTIFIERS: Name and Date of confirmed by patient verbally. FALL SCREENING: Has the patient had 2 falls in the last year or 1 fall with injury or currently using an Ambulatory Assistive Device (Walker, Cane, Wheelchair, Crutches, etc.)? No PATIENT GENDER DATA: Assigned female at . status: : No status: NO. PATIENT RELEVANT IMPLANT DATA REVIEWED: Not Applicable PATIENT PRESENTS WITH AN IMPLANTABLE OR ATTACHED CELL TOWER CLIMBER: No RADIOLOGY DEPARTMENT: General X-ray: Exam(s) Completed: Chest X-Ray PERIPHERAL IV DATA: Not applicable SIGNED BY: Martina Alfredo April 06, 2025 1:06 [facility]06-11-2025 Instructions* Patient Instructions* Sarah Ying MD - 04/06/2025 12:24 PM EDT We discussed your ongoing health concerns and care plan: - Memory and Cognitive Function: - I increased your Donepezil dosage to help with memory and cognitive function. Continue taking thenew dose as prescribed. - We will reassess your progress in 3 months and perform the MoCA (Woody Cognitive Assessment) at that time. - Skin and Pustule Concerns: - You are currently taking Doxycycline for the infection related to the pustules in your groin area. Continue taking this medication as prescribed. - Surgery has been planned with Dr. Leiva to address the pustules and remove the affected sweat glands. Once the surgery is completed and the area heals, we will evaluate whether you can discontinue the Doxycycline. - Nutritional Concerns: - Your sodium levels were previously low, so you are now allowed to include more salty foods in your diet. However, please do not overconsume salty foods. - Your magnesium levels were noted to be high. If you are taking a magnesium supplement, please stop it. If you are not taking a supplement, no further action is needed. - Continue taking potassium as prescribed and include potassium-rich foods like bananas and pineapple in your diet. - Mobility and Physical Activity: - Your walking and mobility have improved significantly. Continue staying active and engaging in daily activities as tolerated. - Use your cane as needed for balance. - Medications and Pharmacy: - All your current medications are appropriate for your care. Continue taking them as prescribed. - Your prescriptions are now being sent to the [facility] pharmacy in [place] for your convenience. Follow-Up: - I will see you again in 3 months to reassess your memory and overall progress. - Please contact me if you experience any new or worsening symptoms, or if you have any concerns before your next visit. documented in this encounterOhio[facility]06-06-2025 Evaluation note* Diagnosis Onset Date Resolution Status Admit Date Hidradenitis suppurativa acute April 01, 2025 10:12am Hidradenitis suppurativa acute April 18, 2025 9:15am Skin ulcer of right groin wi th fat layer exposed acute April 18 9:15am Ulcer of left groin with fat layer exposed acute April 18, 2025 9:15am Vulval cellulitis acute April 212024 2:51pm Vulvar abscess acute April 21, 2025 2:51pm Hidradenitis suppurativa acute May 04, 2025 9:25am Hidradenitis suppurativa acute May 13, 2025 10:45am Obesity acute May 13 10:45am Skin ulcer of right groin wi th fat layer exposed acute May 13 10:45am Ulcer of left groin with fat layer exposed acute May 13, 2025 10:45am HTN (hypertension) chronic April 262024 10:45am Hypothyroidism chronic May 13, 2025 10:45am Hidradenitis suppurativa acute June 10, 2025 10:30am Obesity acute June 10, 025 10:30am Skin ulcer of right groin wi th fat layer exposed acute June 10, 025 10:30am Ulcer of left groin with fat layer exposed acute June 10 10:30am HTN (hypertension) chronic June 10, 2025 10:30am Hypothyroidism chronic May 10:30am [facility] Work Phone: 1(996) 369-398506-06-2025 Evaluation note* Diagnosis Onset Date Resolution Status Admit Date Hidradenitis suppurativa acute April 01, 2025 10:12am Hidradenitis suppurativa acute April 18, 2025 9:15am Skin ulcer of right groin wi th fat layer exposed acute April 18 9:15am Ulcer of left groin with fat layer exposed acute April 18, 2025 9:15am Vulval cellulitis acute April 212024 2:51pm Vulvar abscess acute April 21, 2025 2:51pm Hidradenitis suppurativa acute May 04, 2025 9:25am Hidradenitis suppurativa acute May 13, 2025 10:45am Obesity acute May 13 10:45am Skin ulcer of right groin wi th fat layer exposed acute May 13 10:45am Ulcer of left groin with fat layer exposed acute May 13, 2025 10:45am HTN (hypertension) chronic April 262024 10:45am Hypothyroidism chronic May 13, 2025 10:45am Hidradenitis suppurativa acute June 10, 2025 10:30am Obesity acute June 10, 025 10:30am Skin ulcer of right groin wi th fat layer exposed acute June 10 10:30am Ulcer of left groin with fat layer exposed acute June 10 10:30am HTN (hypertension) chronic June 10, 2025 10:30am Hypothyroidism chronic May 10:30am Hidradenitis suppurativa acute July 08, 2025 8:17am Obesity acute June 8:17am Skin ulcer of right groin wi th fat layer exposed acute June 8:17am Ulcer of left groin with fat layer exposed acute July 08, 2025 8:17am HTN (hypertension) chronic 2024 8:17am Hypothyroidism chronic July 08, 2025 8:17am [facility] Work Phone: 1(597) 376-497305-13-2025 NoteHNO ID: [id number] Author: NELSON AMADO, PT Service: ? Author Type: Physical Therapist Type: Progress Notes Filed: 03/08/2025 10:37 Note Text: 03/08/[address] [facility] PHYSICAL THERAPY DISCONTINUANCE OF CARE Plan of Care Period: Start of Care Date: 08/31/24 Last Visit Date: 09/14/2024 Therapy Program: The following is a summary of the interventions provided for this episode of care; Therapeutic exercise Assessment: Based on most recent visit, patient was progressing as expected toward functional goals based on documented subjective information on progress. Unable to formally assess goal achievement, as patient has not returned to therapy or scheduled additional follow-up appointments. Reason for Discontinuation of Care: Patient has not returned to therapy or scheduled additional follow-up appointments. Nelson Amado, [facility]04-17-2025 Telephone encounter Note* Telephone Encounter - Monty Minor RN - 02/10/2025 8:37 AM EDT The patient has been identified by name and date of : Yes Caregiver verified no other encounters exist for this prescription request: Yes Caregiver confirmed with patient/requestor that no other refills are due, in the near future, with this provider at this time: Yes The last office visit in the department: 02/01/2025 Does the patient have a future office visit with this provider/department: Yes 07/22/2025 Requested Prescriptions Pending Prescriptions Disp Refills levothyroxine (LEVOXYL) 150 mcg tablet 90 tablet 1 Sig: Take 1 tablet by mouth once daily. Mon-Sat and none on Friday. PLEASE MAIL TO PATIENT'S HOME -PILL FILI Minor RN February 10, 2025 8:38 AM [facility]04-17-2025 Miscellaneous Notes* Telephone Encounter - Monty Minor RN - 02/10/2025 8:37 AM EDT The patient has been identified by name and date of : Yes Caregiver verified no other encounters exist for this prescription request: Yes Caregiver confirmed with patient/requestor that no other refills are due, in the near future, with this provider at this time: Yes The last office visit in the department: 02/01/2025 Does the patient have a future office visit with this provider/department: Yes 07/22/2025 Requested Prescriptions Pending Prescriptions Disp Refills levothyroxine (LEVOXYL) 150 mcg tablet 90 tablet 1 Sig: Take 1 tablet by mouth once daily. Mon-Sat and none on Friday. PLEASE MAIL TO PATIENT'S HOME -PILL FILI Minor RN February 10, 2025 8:38 AM documented in this encounterOhiohealth [facility]04-16-2025 Telephone encounter Note * Telephone Encounter - Anthony Solano LPN - 02/09/2025 3:50 PM EDT Pt notified of results/provider response. She verbalized understanding. Anthony Solano LPN [facility]04-16-2025 Miscellaneous Notes* Telephone Encounter - Anthony Solano LPN - 02/09/2025 3:50 PM EDT Pt notified of results/provider response. She verbalized understanding. Anthony Solano LPN * Telephone Encounter - Sendy Candelaria APRN.CNP - 02/09/2025 3:00 PM EDT Can please let patient know that I received her lab results. Her sodium continues to be low, but stable. Sometimes after uterine procedures, patients can develop a temporary low sodium. Lets have hercontinue to increase some salt in her diet and limit the amount of free water. Lets have her recheck this level in 2 weeks. The order is in. Sendy Candelaria APRN.BRIANNE documented in this encounterOhiohealth [facility]04-16-2025 Telephone encounter Note * Telephone Encounter - Sendy Candelaria APRN.CNP - 02/09/2025 3:00 PM EDT Can please let patient know that I received her lab results. Her sodium continues to be low, but stable. Sometimes after uterine procedures, patients can develop a temporary low sodium. Lets have hercontinue to increase some salt in her diet and limit the amount of free water. Lets have her recheck this level in 2 weeks. The order is in. Sendy Candelaria APRN.BRIANNE [facility]04-09-2025 Telephone encounter Note* Telephone Encounter - Anthony Solano LPN - 02/02/2025 5:03 PM EDT Pt notified. She verbalized understanding. Anthony Solano LPN [facility]04-09-2025 Miscellaneous Notes* Telephone Encounter - Anthony Solano LPN - 02/02/2025 5:03 PM EDT Pt notified. She verbalized understanding. Anthony Solano LPN * Telephone Encounter - Sendy Candelaria APRN.CNP - 02/02/2025 4:45 PM EDT Can please let patient know that I received her labs. Her magnesium is actually a little elevated. So please do not take any additional magnesium. Her sodium is low. This could be causing her muscle cramps. How much water a day is she drinking? If she is drinking a lot, I would cut back just a little bit and add just a little salt in the diet. I would like to have her check this again next week, along with a urine test. The orders are in. Sendy Candelaria APRN.CNP documented in this encounterOhiohealth [facility]04-09-2025 Telephone encounter Note * Telephone Encounter - Sendy Candelaria APRN.CNP - 02/02/2025 4:45 PM EDT Can please let patient know that I received her labs. Her magnesium is actually a little elevated. So please do not take any additional magnesium. Her sodium is low. This could be causing her muscle cramps. How much water a day is she drinking? If she is drinking a lot, I would cut back just a little bit and add just a little salt in the diet. I would like to have her check this again next week, along with a urine test. The orders are in. Sendy Candelaria APRN.CNP [facility]04-08-2025 Instructions* Patient Instructions* Sendy Candelaria APRN.BRIANNE - 02/01/2025 2:20 PM EDT - Complete lab work as scheduled to check electrolytes, kidney function, potassium, and magnesium levels. - Continue drinking plenty of water to stay hydrated. - Continue taking your current medications as prescribed. - Monitor for any changes in symptoms, such as increased cramping or new issues, and report them. documented in this encounterOhiohealth [facility] Hospital04-08-2025 NoteHNO ID: [id number] Author: SENDY CANDELARIA APRN.CNP Service: ? Author Type: Nurse Practitioner Type: Progress Notes Filed: 02/01/2025 18:30 Note Text: This is a 74 year old female who presents today with: Mónica is a 74-year-old female presenting for evaluation of severe muscle cramps. HISTORY OF PRESENT ILLNESS: Muscle Cramps: - Severe muscle cramps in feet and hands, occurring nocturnally, disrupting sleep. - Describes cramps as muscle seizures that knot up so damn tight. - Left foot cramps more severe than right; toes curl under during episodes. - Cramps in hands cause fingers to curl tightly. - Pain persists post-cramp, with soreness in affected muscles. - Previously managed with magnesium supplementation (>1000 mg daily), but discontinued due to polypharmacy concerns. - Increased water intake over the past 1-2 weeks. - Consumes bananas with every meal; taking potassium supplement. - Denies history of blood clots. PAST MEDICAL HISTORY: PAST MEDICAL HISTORY Diagnosis Date 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 01/24/2021 Adenomatous colon polyp Allergic rhinitis 07/08/2005 Bilateral hip pain 06/05/2023 Dystrophic nail 01/24/2021 multiple bilateral toes. Elevated hemoglobin A1c 08/27/2018 Essential hypertension, benign 07/08/2005 Fracture left forearm and right radial head Hammer toes of both feet 01/24/2021 Hyperlipidemia, mixed 02/05/2018 As of 02/05/18 patient declines statin therapy. Low vitamin B12 level 07/26/2024 Medicare annual wellness visit, subsequent 08/27/2018 Medicare part B: 02/24/2014 last done: 08/27/2019 Morbid (severe) obesity due to excess calories (HCC) 02/06/2006 OAB (overactive bladder) 12/19/2020 Declines medication as of 12/19/20 Obesity, Class II, BMI 35-39.9 02/19/2021 SANDRA (obstructive sleep apnea) 07/08/2005 Had corrective surgery Personal history of colonic polyps 03/14/2016 Postsurgical hypothyroidism 09/04/2005 Primary osteoarthritis of both hips 06/20/2015 Primary osteoarthritis of both knees 06/20/2015 Primary osteoarthritis of right hip 07/30/2023 S/P total left hip arthroplasty 04/22/2024 S/P total right hip arthroplasty 06/26/2023 PAST SURGICAL HISTORY Procedure Laterality Date AMPUTATION TOE,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 ARTHROSCOPY KNEE DIAGNOSTIC W/WO SYNOVIAL BX SPX Arthroscopy, knee COLONOSCOPY 05/30/2022 Tubular Adenoma-repeat in 3 years COLONOSCOPY FLX DX W/COLLJ SPEC WHEN PFRMD years ago Colonoscopy COLONOSCOPY FLX DX W/COLLJ SPEC WHEN PFRMD 10/13/2013 Colonoscopy COLONOSCOPY FLX DX W/COLLJ SPEC WHEN PFRMD 03/14/2016 Colonoscopy COLONOSCOPY FLX DX W/COLLJ SPEC WHEN PFRMD 11/09/2018 Colonoscopy COLSC FLX W/RMVL OF TUMOR POLYP LESION SNARE TQ 06/15/2010 PAST SURGICAL HISTORY OF 1960 bladder surgery to enlarge opening PAST SURGICAL HISTORY OF uvulectomy for SANDRA SIGMOIDOSCOPY FLX DX W/COLLJ SPEC BR/WA IF PFRMD 12/06/2013 Sigmoidoscopy, flexible THYROIDECTOMY TOTAL/COMPLETE 2005 TOTAL HIP REPLACEMENT Right 06/25/2023 TOTAL HIP REPLACEMENT Left 04/21/2024 ALLERGIES Latex MEDICATIONS Current Outpatient Medications Medication Sig donepezil (ARICEPT) 5 mg tablet TAKE 1 TABLET BY MOUTH DAILY AFTER BREAKFAST. cyanocobalamin (VITAMIN B-12) 1,000 mcg tab Take 1 tablet by mouth once daily. doxycycline (VIBRA-TABS) 100 mg tablet Take 100 mg by mouth two times a day. 45 days allopurinol (ZYLOPRIM) 300 mg tablet Take 1 tablet by mouth once daily. For gout. amLODIPine (NORVASC) 10 mg tablet Take 1 tablet by mouth once daily. PLEASE MAIL TO PATIENT;S HOME - PILL FILI furosemide (LASIX) 40 mg tablet Take 1 tablet by mouth once daily. PLEASE MAIL TO PATIENT;S HOME - PILL FILI lisinopril (ZESTRIL) 40 mg tablet Take 1 tablet by mouth once daily. PLEASE MAIL TO PATIENT'S HOME - PILL FILI pravastatin (PRAVACHOL) 10 mg tablet Take 1 tablet by mouth once daily. PLEASE MAIL TO PATIENT'S HOME - PILL FILI silver sulfADIAZINE (SILVADENE) 1 % cream levothyroxine (LEVOXYL) 150 mcg tablet Take 1 tablet by mouth once daily. Mon-Fri and none on Friday. PLEASE MAIL TO PATIENT'S HOME - PILL FILI potassium chloride 20 mEq TbER Take 1 tablet by mouth once daily. acetaminophen (TYLENOL) 500 mg tablet Take 2 tablets by mouth every 8 hours as needed for pain. polyethylene glycol 3350 17 gram packet Take 1 Packet by mouth once daily. Dissolve dose in 4 - 8 ounces of liquid and take as directed. No current facility-administered medications for this visit. FAMILY HISTORY Problem Relation Age of Onset Hypertension Mother Dementia Mother Heart Father fluid on heart Glaucoma Father Colon Cancer Father Stroke Brother Strabismus Brother Detached Retina Brother Social History Tobacco Use Smoking status: Never Smokeless tobacco: Never Tobacco comments: Mom used to smoke, quit 2012 Vaping Use Vaping status: Never Used Substance Use Topics Alcohol use: N (more content not included)...[facility] 02-01-2025 History of Present illness Narrative* Sendy Candelaria APRN.[employer] - 02/01/2025 2:06 PM EDT This is a 74 year old female who presents today with: Mónica is a 74-year-old female presenting for evaluation of severe muscle cramps. HISTORY OF PRESENT ILLNESS: Muscle Cramps: - Severe muscle cramps in feet and hands, occurring nocturnally, disrupting sleep. - Describes cramps as muscle seizures that knot up so damn tight. - Left foot cramps more severe than right; toes curl under during episodes. - Cramps in hands cause fingers to curl tightly. - Pain persists post-cramp, with soreness in affected muscles. - Previously managed with magnesium supplementation (>1000 mg daily), but discontinued due to polypharmacy concerns. - Increased water intake over the past 1-2 weeks. - Consumes bananas with every meal; taking potassium supplement. - Denies history of blood clots. PAST MEDICAL HISTORY: PAST MEDICAL HISTORY Diagnosis Date 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 01/24/2021 Adenomatous colon polyp Allergic rhinitis 07/08/2005 Bilateral hip pain 06/05/2023 Dystrophic nail 01/24/2021 multiple bilateral toes. Elevated hemoglobin A1c 08/27/2018 Essential hypertension, benign 07/08/2005 Fracture left forearm and right radial head Hammer toes of both feet 01/24/2021 Hyperlipidemia, mixed 02/05/2018 As of 02/05/18 patient declines statin therapy. Low vitamin B12 level 07/26/2024 Medicare annual wellness visit, subsequent 08/27/2018 Medicare part B: 02/24/2014 last done: 08/27/2019 Morbid (severe) obesity due to excess calories (HCC) 02/06/2006 OAB (overactive bladder) 12/19/2020 Declines medication as of 12/19/20 Obesity, Class II, BMI 35-39.9 02/19/2021 SANDRA (obstructive sleep apnea) 07/08/2005 Had corrective surgery Personal history of colonic polyps 03/14/2016 Postsurgical hypothyroidism 09/04/2005 Primary osteoarthritis of both hips 06/20/2015 Primary osteoarthritis of both knees 06/20/2015 Primary osteoarthritis of right hip 07/30/2023 S/P total left hip arthroplasty 04/22/2024 S/P total right hip arthroplasty 06/26/2023 PAST SURGICAL HISTORY Procedure Laterality Date AMPUTATION TOE,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 ARTHROSCOPY KNEE DIAGNOSTIC W/WO SYNOVIAL BX SPX Arthroscopy, knee COLONOSCOPY 05/30/2022 Tubular Adenoma-repeat in 3 years COLONOSCOPY FLX DX W/COLLJ SPEC WHEN PFRMD years ago Colonoscopy COLONOSCOPY FLX DX W/COLLJ SPEC WHEN PFRMD 10/13/2013 Colonoscopy COLONOSCOPY FLX DX W/COLLJ SPEC WHEN PFRMD 03/14/2016 Colonoscopy COLONOSCOPY FLX DX W/COLLJ SPEC WHEN PFRMD 11/09/2018 Colonoscopy COLSC FLX W/RMVL OF TUMOR POLYP LESION SNARE TQ 06/15/2010 PAST SURGICAL HISTORY OF 1960 bladder surgery to enlarge opening PAST SURGICAL HISTORY OF uvulectomy for SANDRA SIGMOIDOSCOPY FLX DX W/COLLJ SPEC BR/WA IF PFRMD 12/06/2013 Sigmoidoscopy, flexible THYROIDECTOMY TOTAL/COMPLETE 2004 TOTAL HIP REPLACEMENT Right 06/25/2023 TOTAL HIP REPLACEMENT Left 04/21/2024 ALLERGIES Latex MEDICATIONS Current Outpatient Medications Medication Sig donepezil (ARICEPT) 5 mg tablet TAKE 1 TABLET BY MOUTH DAILY AFTER BREAKFAST. cyanocobalamin (VITAMIN B-12) 1,000 mcg tab Take 1 tablet by mouth once daily. doxycycline (VIBRA-TABS) 100 mg tablet Take 100 mg by mouth two times a day. 45 days allopurinol (ZYLOPRIM) 300 mg tablet Take 1 tablet by mouth once daily. For gout. amLODIPine (NORVASC) 10 mg tablet Take 1 tablet by mouth once daily. PLEASE MAIL TO PATIENT;S HOME - PILL FILI furosemide (LASIX) 40 mg tablet Take 1 tablet by mouth once daily. PLEASE MAIL TO PATIENT;S HOME - PILL FILI lisinopril (ZESTRIL) 40 mg tablet Take 1 tablet by mouth once daily. PLEASE MAIL TO PATIENT'S HOME - PILL FILI pravastatin (PRAVACHOL) 10 mg tablet Take 1 tablet by mouth once daily. PLEASE MAIL TO PATIENT'S HOME - PILL FILI silver sulfADIAZINE (SILVADENE) 1 % cream levothyroxine (LEVOXYL) 150 mcg tablet Take 1 tablet by mouth once daily. Mon- Fri and none on Friday. PLEASE MAIL TO PATIENT'S HOME - PILL FILI potassium chloride 20 mEq TbER Take 1 tablet by mouth once daily. acetaminophen (TYLENOL) 500 mg tablet Take 2 tablets by mouth every 8 hours as needed for pain. polyethylene glycol 3350 17 gram packet Take 1 Packet by mouth once daily. Dissolve dose in 4 - 8 ounces of liquid and take as directed. No current facility-administered medications for this visit. FAMILY HISTORY Problem Relation Age of Onset Hypertension Mother Dementia Mother Heart Father fluid on heart Glaucoma Father Colon Cancer Father Stroke Brother Strabismus Brother Detached Retina Brother Social History Tobacco Use Smoking status: Never Smokeless tobacco: Never Tobacco comments: Mom used to smoke, quit 2011 Vaping Use Vaping status: Never Used Substance Use Topics Alcohol use: No Drug use: No EXAM: BP 122/70 Pulse 71 Temp 37.1 C (98.8 F) Resp 16 SpO2 97% PHYSICAL EXAM: General Appearance: Well appearing, alert, in no acute distress, well-hydrated, well nourished.. Skin: Skin color, texture, turgor normal, no suspicious rashes or lesions. Head: Normocephalic, no masses, lesions, tenderness or abnormalities. Eyes: Anicteric sclera. Extraocular movements are intact. . Lungs: Lungs clear to auscultation. No wheezing, rhonchi, rales.. Heart: RRR without murmur, gallop, or rubs. No ectopy. Extremities: No deformities, trace edema L>R, skin discoloration, clubbing or cyanosis. Good capillary refill. . Neurologic: Gait normal. Reflexes normal and symmetric. Sensation grossly intact.. ASSESSMENT/PLAN 1. Muscle spasms of both lower extremities (M62.838) - Experiencing severe muscle spasms in both lower extremities, as well as hands, disrupting sleep. - History of managing spasms with high-dose magnesium supplementation (>1000 mg daily), currently discontinued due to polypharmacy concerns. - Current medications include furosemide and potassium supplementation. - Recent increase in water intake - Ordered BMP to assess electrolytes, including potassium and sodium levels, and a separate magnesium level. - Advised against resuming high-dose magnesium supplementation until lab results are reviewed. - Follow-up to discuss lab results and adjust treatment plan as necessary. Discussed treatment plan and patient voices understanding. Patient's questions answered appropriately. Medications and potential side effects were discussed and patient voices understanding. Return to the office as scheduled or as needed for worsening/no improvement. Sendy Candelaria APRN.BRIANNE The patient consented to the use of [employer]cdexper[employer] software for draft documentation of the visit consistent with [facility] s Notice of Privacy Practices. documented in this encounterOhiohealth [facility]04-07-2025 Evaluation note* Diagnosis Onset Date Resolution Status Admit Date Postmenopausal bleeding acute A pril 2024 9:15am Thickened endometrium acute Apr il 2024 9:15am Hidradenitis suppurativa acute April 01, 2025 10:12am Hidradenitis suppurativa acute April 18, 2025 9:15am Skin ulcer of right groin wi th fat layer exposed acute April 18 9:15am Ulcer of left groin with fat layer exposed acute April 18, 2025 9:15am Vulval cellulitis acute April 212024 2:51pm Vulvar abscess acute April 21, 2025 2:51pm Hidradenitis suppurativa acute May 04, 2025 9:25am Hidradenitis suppurativa acute May 13, 2025 10:45am Obesity acute May 13 10:45am Skin ulcer of right groin wi th fat layer exposed acute May 13 10:45am Ulcer of left groin with fat layer exposed acute May 13, 2025 10:45am HTN (hypertension) chronic April 262024 10:45am Hypothyroidism chronic May 13, 2025 10:45am [facility] Work Phone: [phone]) 521-620604-04-2025 NoteHNO ID: [id number] Author: LÓPEZ RANDALL, ? Service: ? Author Type: Physician Type: Progress Notes Filed: 01/28/2025 14:24 Note Text: Subjective: Patient presents to clinic c/o painful toenails. They state that the nails are especially painful with shoe gear and pressure. Patient states that nails 1-5 b/l are painful. No other pedal complaints at this time. Patient states no change in medications or medical history since last visit. Objective: Patient presents to clinic ambulating in tennis shoes Vasc: DP and PT pulses are palpable bilateral. CFT is less than 5 seconds bilateral. Skin temperature is warm to cool proximal to distal bilateral. There is no edema or varicosities noted. Neuro: Protective sensation is intact to the foot and toes when tested with the 5.07 SWM bilateral. Vibratory sensation is decreased at the hallux IPJ bilateral. The hallux is downgoing bilateral. Derm: Nails 1-5 b/l are painful, discolored-yellow, thick, crumbly, dystrophic and with subungal debris. Skin is of normal turgor, texture and hair growth is decreased bilateral. There are callus to b/l hallux. No ulceration. Ortho: Muscle strength is 5/5 for all pedal groups tested. Ankle joint DF is full with the knee extended with no pain or crepitus noted. 1st MPJ ROM is decreased bilateral. Large bunion is present to b/l feet Assessment: (B35.1) Onychomycosis (primary encounter diagnosis) (M79.675) Pain in toe of left foot (M79.674) Pain in toe of right foot Plan: Patient was seen and evaluated. Nails 1-5 bilateral were debrided in length and thickness. Small bleed to right 3rd toe. Band aide applied. Callus reduced with dremmel Patient is to RTC in 3-4 months. López Randall [facility]04-04-2025 History of Present illness Narrative* López Randall - 01/28/2025 2:13 PM EDT Subjective: Patient presents to clinic c/o painful toenails. They state that the nails are especially painful with shoe gear and pressure. Patient states that nails 1-5 b/l are painful. No other pedal complaints at this time. Patient states no change in medications or medical history since last visit. Objective: Patient presents to clinic ambulating in tennis shoes Vasc: DP and PT pulses are palpable bilateral. CFT is less than 5 seconds bilateral. Skin temperature is warm to cool proximal to distal bilateral. There is no edema or varicosities noted. Neuro: Protective sensation is intact to the foot and toes when tested with the 5.07 SWM bilateral.Vibratory sensation is decreased at the hallux IPJ bilateral. The hallux is downgoing bilateral. Derm: Nails 1-5 b/l are painful, discolored-yellow, thick, crumbly, dystrophic and with subungal debris. Skin is of normal turgor, texture and hair growth is decreased bilateral. There are callus to b/l hallux. No ulceration. Ortho: Muscle strength is 5/5 for all pedal groups tested. Ankle joint DF is full with the knee extended with no pain or crepitus noted. 1st MPJ ROM is decreased bilateral. Large bunion is present tob/l feet Assessment: (B35.1) Onychomycosis (primary encounter diagnosis) (M79.675) Pain in toe of left foot (M79.674) Pain in toe of right foot Plan: Patient was seen and evaluated. Nails 1-5 bilateral were debrided in length and thickness. Small bleed to right 3rd toe. Band aide applied. Callus reduced with dremmel Patient is to RTC in 3-4 months. López Randall DPM documented in this encounterOhiohealth [facility]03-27-2025 Telephone encounter Note * Telephone Encounter - Carmela Randolph LPN - 01/20/2025 11:36 AM EDT Pharmacy is asking for 90 day supply. Patient has been identified by name and date of : Yes Pharmacy phones for refill(s): Requested Prescriptions Pending Prescriptions Disp Refills donepezil (ARICEPT) 5 mg tablet [Pharmacy Med Name: DONEPEZIL HCL 5 MG TABLET] 90 tablet 1 Sig: TAKE 1 TABLET BY MOUTH DAILY AFTER BREAKFAST. Date of last office visit in primary care: 12/29/2024 Date of next office visit in primary care: 04/06/2025 Please advise. Thank you. Carmela Randolph LPN. [facility]03-27-2025 Miscellaneous Notes* Telephone Encounter - Carmela Randolph LPN - 01/20/2025 11:36 AM EDT Pharmacy is asking for 90 day supply. Patient has been identified by name and date of : Yes Pharmacy phones for refill(s): Requested Prescriptions Pending Prescriptions Disp Refills donepezil (ARICEPT) 5 mg tablet [Pharmacy Med Name: DONEPEZIL HCL 5 MG TABLET] 90 tablet 1 Sig: TAKE 1 TABLET BY MOUTH DAILY AFTER BREAKFAST. Date of last office visit in primary care: 12/29/2024 Date of next office visit in primary care: 04/06/2025 Please advise. Thank you. Carmela Randolph LPN. documented in this encounterOhiohealth [facility] Hospital03-26-2025 NoteHNO ID: [id number] Author: TAURUS CHANG MA Service: ? Author Type: Deli Associate Type: Progress Notes Filed: 01/19/2025 16:17 Note Text: Scan on 01/18/2025 10:36 AM by Marianna Bowens PA-C: Consultation - [employer] Scan on 01/18/2025 11:50 AM by Marianna Bowens PA-C: [employer] Taurus Cahng [facility]03-26-2025 History of Present illness Narrative* Taurus Chang MA - 01/19/2025 4:16 PM EDT Scan on 01/18/2025 10:36 AM by Marianna Bowens PA-C: Consultation - [employer] Scan on 01/18/2025 11:50 AM by Marianna Bowens PA-C: [employer] Taurus Chang MA documented in this encounterOhiohealth [facility] Hospital03-25-2025 Telephone encounter Note * Telephone Encounter - Mateo Marmolejo MD - 01/18/2025 4:24 PM EDT Being managed by Veronica Nolan. [facility]03-25-2025 Miscellaneous Notes* Telephone Encounter - Mateo Marmolejo MD - 01/18/2025 4:24 PM EDT Being managed by Veronica Nolan. * Telephone Encounter - Christine Stern LPN - 01/18/2025 1:35 PM EDT Prescription Refill Information The patient has been identified by name and date of : Yes Caregiver verified no other encounters exist for this prescription request: Yes Caregiver confirmed with patient/requestor that no other refills are due, in the near future, with this provider at this time: Yes The last office visit in the department: 01/07/25 Does the patient have a future office visit with this provider/department: Yes 07/22/25 Requested Prescriptions Pending Prescriptions Disp Refills cyanocobalamin (VITAMIN B-12) 1,000 mcg tab 30 tablet 5 Sig: Take 1 tablet by mouth once daily. Christine Stern LPN January 18, 2025 1:35 PM documented in this encounterOhiohealth [facility] Hospital03-25-2025 Telephone encounter Note * Telephone Encounter - Christine Stern LPN - 01/18/2025 1:35 PM EDT Prescription Refill Information The patient has been identified by name and date of : Yes Caregiver verified no other encounters exist for this prescription request: Yes Caregiver confirmed with patient/requestor that no other refills are due, in the near future, with this provider at this time: Yes The last office visit in the department: 01/07/25 Does the patient have a future office visit with this provider/department: Yes 07/22/25 Requested Prescriptions Pending Prescriptions Disp Refills cyanocobalamin (VITAMIN B-12) 1,000 mcg tab 30 tablet 5 Sig: Take 1 tablet by mouth once daily. Christine Stern LPN January 18, 2025 1:35 PM [facility]03-25-2025 Discharge summary [facility] Medical Records Department [facility] [place] [address] Instructions for Home/Discharge Instructions 01/18/25 1019 MR#: [id number] Acct: [id number] Name: BRIANNEMÓNICA Hernandez Rep #:[id number] : 1950 74 From: Shayla Fay DO PCP: Dr. Mateo Marmolejo MD Status:REG SDC Discharge Instructions Diet Discharge Diet: No restrictions DC O2, CPAP, BIPAP needs Home O2 Discharge instructions: No Dressing / Incision Discharge Activity: Return to Normal Activity, May Shower and May Take a Tub Bath (after 1 week) May resume sexual activity in: 1-2 weeks Weight Bearing Status: Weight bearing as tolerated Lifting Restrictions: none Dressing / Incision Call your doctor if you observe: Fever of 101 or Higher, Using more than 1 pad per hour, Shortness of breath and Uncontrolled pain Follow Up Care Please Follow Up With: Shayla Fay DO When: Call [phone] to schedule appointment. Test Results: Test results from this visit will be discussed in further detail at your follow- up appointment, if applicable. Discharge Plan Admission Primary Reason for Your Visit: hysteroscopy dilation and curettage Attending Provider: Shayla Fay Primary Care Provider: Mateo Marmolejo Instructions Print Language: Malaysian Discharge Orders/Prescriptions Prescriptions: Continued allopurinol 300 mg tablet 300 mg PO QDAY potassium chloride 20 mEq tablet extended release 20 meq PO QDAY mecobalamin (vitamin B12) 1,000 mcg tablet,chewable 1,000 mcg PO QDAY levothyroxine 137 MCG tablet 150 mcg PO DAILY lisinopril 10 MG tablet 40 mg PO DAILY amlodipine [Norvasc] 10 mg tablet 10 mg PO DAILY furosemide [Lasix] 40 mg tablet 40 mg PO DAILY pravastatin 10 mg tablet 10 mg PO QHS doxycycline hyclate 100 mg tablet 100 mg PO BID donepezil 5 mg tablet 5 mg PO DAILY Referrals / Follow Up: Mateo Marmolejo MD [Primary Care Provider] - Disposition Disposition (needs filled in before D/C Order can be placed): Home, Self Care 01/18/25 1019Jennifer Vianca Green DO CC: Dr. Mateo Marmolejo MD ~ Signed [facility]03-25-2025 History and physical note [facility] Medical Records Department [address] [place] [address] History & Physical Exam 01/18/25 1018 MR#: [id number] Acct: [id number] Name: MÓNICA DECKER Rep #:[id number] : 1950 74 From: Shayla Fay DO PCP: Dr. Mateo Marmolejo MD Status:[facility] Location: [place] [address] History and Physical Date of Admission: 01/18/25 Intake Vital Signs 08/06/2410:00 12/03/2516:27 12/10/2508:12 Height 4 ft 11 in 5 ft 5 ft Weight: 170 lb 4 oz BMI 33.2 BP 112/62 Intake Visit Reasons: ENDOMETRIAL THICKENING POSS. 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 Is patient in pain?: No Allergies Latex, Natural Rubber Allergy (Mild, Verified 12/10/24 09:42) Rash Medications ?Medication ?Instructions ?Recorded ?Confirmed ?Type levothyroxine 137 mcg tablet 150 mcg PO DAILY thyroid 01/06/20 History lisinopril 10 mg tablet 40 mg PO DAILY blood pressure 01/06/20 0 12/10/24 History amlodipine 10 mg tablet (Norvasc) 10 mg PO DAILY 08/06/24 12/10/24 History furosemide 40 mg tablet (Lasix) 40 mg PO DAILY 08/06/24 12/10/24 History pravastatin 10 mg tablet 10 mg PO QHS 08/06/24 12/10/24 History nystatin 100,000 unit/gram topical 1 applic topical BID #30 grams 12/03/24 12/10/24 Rx powder allopurinol 300 mg tablet 300 mg PO QDAY 12/10/24 12/10/24 History doxycycline hyclate 100 mg capsule 100 mg PO QDAY 12/10/24 12/10/24 History mecobalamin (vitamin B12) 1,000 1,000 mcg PO QDAY 12/10/24 12/10/24 Hist ory mcg chewable tablet potassium chloride 20 mEq 20 meq PO QDAY 12/10/24 12/10/24 History tablet,extended release vibegron 75 mg tablet (Gemtesa) 75 mg PO QDAY 12/10/24 12/10/24 History Is last menstrual period known: No Post menopausal: Yes Patient : No : No PFSH PFSH Medical History (Updated 12/10/24 @ 10:[address] Shayla Fay, DO) Urinary incontinence Gout Hypothyroid High cholesterol HTN (hypertension) Surgical History (Updated 12/10/24 @ 09:47 by Criselda Lee) Status post amputation of finger S/P bladder repair History of left hip replacement H/O thyroidectomy History of right hip replacement Family History (Updated 12/10/24 @ 09:47 by Criselda Lee) Father Colon cancerMother Hypertension Social History (Updated 12/10/24 @ 09:48 by Criselda Lee) Smoking Status: Never smoker additional social history: Single History 0 Elective abortions Hx Para Spontaneous abortions Hx # Term Pregnancies Ectopic pregnancies Hx # Pregnancies Multiple births # of living children HPI ENDOMETRIAL THICKENING POSS. EMB (GABRIELA) Details: MÓNICA DECKER is a 74 year old who presents for discussion about thickened endometrium measuring 12mm and some postmenopausal bleeding. This was found by Dr. Ochoa. She also suffers with HS and on doxy, sees the wound center for this. (She is a very poor historian and has a tangential thought process. ROS was difficult to obtain and keep her on track) ROS Const ROS Unobtainable: All systems reviewed & are unremarkable except as noted in H Resp Resp: Reports system reviewed and no additional complaints, except as documented; Denies cough GI GI: Reports as per HPI Psych Psych: Reports system reviewed and no additional complaints, except as documented Exam Const General: cooperative, healthy appearing, comfortable and no acute distress Resp Effort & Inspection: normal respiratory effort Other: Groin abscess that are oozing and different stages of healing present. Skin General: no rashes or lesions noted Psych Appearance: grossly normal Speech and Movement: speech and movement normal Coding Level of Care Code Off vis,new,level 5 Diagnoses Thickened endometrium R93.89 Postmenopausal bleeding N95.0 Assessment and Plan Assessment and Plan (1) Thickened endometrium: Status: Acute (2) Postmenopausal bleeding: Status: Acute Medications: Discontinued sulfamethoxazole-trimethoprim 800-160 mg Discontinued Reason: Order Completed 1 TAB PO BID 14 TABLETS 0RF sulfamethoxazole-trimethoprim 800-160 mg Discontinued Reason: Order Completed 1 TAB PO BID 20 TABLETS 0RF silver sulfadiazine 1% (SSD) apply a 1.5 mm thickness Discontinued Reason: Order Completed 1 applic topical BID 400 grams 0RF Plan continue antibiotics for HS will need hysteroscopy D&C but based on her history after her last anesthesia, Iwant to ask anesthesia if they will consider spinal anesthesia. After discussing the patient's diagnosis and treatment plan options, patient wishes to proceed withsurgical management. I have discussed with the patient the risks, benefits, and alternatives of theprocedure which include but are notlimited to risks of anesthesia, bleeding, infection, possible damage to bowel, bladder, or surrounding vasculature which could lead to additional surgery to evaluate any complications. Patient agrees to procedure and wishes to proceed. ACOG/uptodate references given for additional information regarding procedure. consent signed today. pt states phone may not work and we can call gerson at (her brother) 01/18/25 1018 Cosigner Signature (if applicable): CC: Dr. Mateo Marmolejo MD; Dr. Shayla Fay DO~ Signed [facility]03-25-2025 Discharge summary Author Shayla Green [facility] Note Date/Time January 18, 2025 1:0 4pm [facility] Medical Records Department [address] [place] [address] Instructions for Home/Discharge Instructions 01/18/25 1019 MR#: [id number] Acct: [id number] Name: MÓNICA DECKER Rep #:[id number] : 1950 74 From: Shayla Fay DO PCP: Dr. Mateo Marmolejo MD [place] [place]charge Instructions Diet Discharge Diet: No restrictions DC O2, CPAP, BIPAP needs Home O2 Discharge instructions: No Dressing / Incision Discharge Activity: Return to Normal Activity, May Shower and May Take a Tub Bath (after 1 week) May resume sexual activity in: 1-2 weeks Weight Bearing Status: Weight bearing as tolerated Lifting Restrictions: none Dressing / Incision Call your doctor if you observe: Fever of 101 or Higher, Using more than 1 pad per hour, Shortness of breath and Uncontrolled pain Follow Up Care Please Follow Up With: Shayla Fay DO When: Call [phone] to schedule appointment. Test Results: Test results from this visit will be discussed in further detail at your follow- up appointment, if applicable. Discharge Plan Admission Primary Reason for Your Visit: hysteroscopy dilation and curettage Attending Provider: Shayla Fay Primary Care Provider: Mateo Marmolejo Instructions Print Language: Malaysian Discharge Orders/Prescriptions Prescriptions: Continued allopurinol 300 mg tablet 300 mg PO QDAY potassium chloride 20 mEq tablet extended release 20 meq PO QDAY mecobalamin (vitamin B12) 1,000 mcg tablet,chewable 1,000 mcg PO QDAY levothyroxine 137 MCG tablet 150 mcg PO DAILY lisinopril 10 MG tablet 40 mg PO DAILY amlodipine [Norvasc] 10 mg tablet 10 mg PO DAILY furosemide [Lasix] 40 mg tablet 40 mg PO DAILY pravastatin 10 mg tablet 10 mg PO QHS doxycycline hyclate 100 mg tablet 100 mg PO BID donepezil 5 mg tablet 5 mg PO DAILY Referrals / Follow Up: Mateo Marmolejo MD [Primary Care Provider] - Disposition Disposition (needs filled in before D/C Order can be placed): Home, Self Care 01/18/25 1019<Electronically signed by Shayla Fay DO>Shayla Fay DO CC: Dr. Mateo Marmolejo MD ~ Signed [facility] Work Phone: 1(923) 992-412003-25-2025 History and physical note Author Shayla [facility] Note Date/Time January 18, 2025 1:0 4pm [facility] Medical Records Department [address] [place] [address] History & Physical Exam 01/18/25 1018 MR#: [id number] Acct: [id number] Name: MÓNICA DECKER Rep #:[id number] : 1950 74 From: Shayla Fay DO PCP: Dr. Mateo Marmolejo MD Status:[facility] Location: [place] [address] History and Physical Date of Admission: 01/18/25 Intake Vital Signs 08/06/2410:00 12/03/2516:27 12/10/2508:12 Height 4 ft 11 in 5 ft 5 ft Weight: 170 lb 4 oz BMI 33.2 BP 112/62 Intake Visit Reasons: ENDOMETRIAL THICKENING POSS. 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 Is patient in pain?: No Allergies Latex, Natural Rubber Allergy (Mild, Verified 12/10/24 09:42) Rash Medications ?Medication ?Instructions ?Recorded ?Confirmed ?Type levothyroxine 137 mcg tablet 150 mcg PO DAILY thyroid 01/06/20 History lisinopril 10 mg tablet 40 mg PO DAILY blood pressure 01/06/20 0 12/10/24 History amlodipine 10 mg tablet (Norvasc) 10 mg PO DAILY 08/06/24 12/10/24 History furosemide 40 mg tablet (Lasix) 40 mg PO DAILY 08/06/24 12/10/24 History pravastatin 10 mg tablet 10 mg PO QHS 08/06/24 12/10/24 History nystatin 100,000 unit/gram topical 1 applic topical BID #30 grams 12/03/24 12/10/24 Rx powder allopurinol 300 mg tablet 300 mg PO QDAY 12/10/24 12/10/24 History doxycycline hyclate 100 mg capsule 100 mg PO QDAY 12/10/24 12/10/24 History mecobalamin (vitamin B12) 1,000 1,000 mcg PO QDAY 12/10/24 12/10/24 Hist ory mcg chewable tablet potassium chloride 20 mEq 20 meq PO QDAY 12/10/24 12/10/24 History tablet,extended release vibegron 75 mg tablet (Gemtesa) 75 mg PO QDAY 12/10/24 12/10/24 History Is last menstrual period known: No Post menopausal: Yes Patient : No : No PFSH PFSH Medical History (Updated 12/10/24 @ 10:[address] Shayla Fay, DO) Urinary incontinence Gout Hypothyroid High cholesterol HTN (hypertension) Surgical History (Updated 12/10/24 @ 09:47 by Criselda Lee) Status post amputation of finger S/P bladder repair History of left hip replacement H/O thyroidectomy History of right hip replacement Family History (Updated 12/10/24 @ 09:47 by Criselda Lee) Father Colon cancerMother Hypertension Social History (Updated 12/10/24 @ 09:48 by Criselda Lee) Smoking Status: Never smoker additional social history: Single History 0 Elective abortions Hx Para Spontaneous abortions Hx # Term Pregnancies Ectopic pregnancies Hx # Pregnancies Multiple births # of living children HPI ENDOMETRIAL THICKENING POSS. EMB (GABRIELA) Details: MÓNICA DECKER is a 74 year old who presents for discussion about thickened endometrium measuring 12mm and some postmenopausal bleeding. This was found by Dr. Ochoa. She also suffers with HS and on doxy, sees the wound center for this. (She is a very poor historian and has a tangential thought process. ROS was difficult to obtain and keep her on track) ROS Const ROS Unobtainable: All systems reviewed & are unremarkable except as noted in H Resp Resp: Reports system reviewed and no additional complaints, except as documented; Denies cough GI GI: Reports as per HPI Psych Psych: Reports system reviewed and no additional complaints, except as documented Exam Const General: cooperative, healthy appearing, comfortable and no acute distress Resp Effort & Inspection: normal respiratory effort Other: Groin abscess that are oozing and different stages of healing present. Skin General: no rashes or lesions noted Psych Appearance: grossly normal Speech and Movement: speech and movement normal Coding Level of Care Code Off vis,new,level 5 Diagnoses Thickened endometrium R93.89 Postmenopausal bleeding N95.0 Assessment and Plan Assessment and Plan (1) Thickened endometrium: Status: Acute (2) Postmenopausal bleeding: Status: Acute Medications: Discontinued sulfamethoxazole-trimethoprim 800-160 mg Discontinued Reason: Order Completed 1 TAB PO BID 14 TABLETS 0RF sulfamethoxazole-trimethoprim 800-160 mg Discontinued Reason: Order Completed 1 TAB PO BID 20 TABLETS 0RF silver sulfadiazine 1% (SSD) apply a 1.5 mm thickness Discontinued Reason: Order Completed 1 applic topical BID 400 grams 0RF Plan continue antibiotics for HS will need hysteroscopy D&C but based on her history after her last anesthesia, Iwant to ask anesthesia if they will consider spinal anesthesia. After discussing the patient's diagnosis and treatment plan options, patient wishes to proceed with surgical management. I have discussed with the patient the risks, benefits, and alternatives of the procedure which include but are notlimited to risks of anesthesia, bleeding, infection, possible damage to bowel, bladder, or surrounding vasculature which could lead to additional surgery to evaluate any complications. Patient agrees to procedure and wishes to proceed. ACOG/uptodate references given for additional information regarding procedure. consent signed today. pt states phone may not work and we can call gerson at (her brother) 01/18/25 1018 <Electronically signed by Shayla Fay DO> Cosigner Signature (if applicable): CC: Dr. Mateo Marmolejo MD; Dr. Shayla Fay DO~ Signed [facility] Work Phone: 1(808) 914-394403-25-2025 Procedure note [facility] Medical Records Department [address] [place] [address] Operative Report 01/18/25 1142 MR#: [id number] Acct: [id number] Name: MÓNICA DECKER Rep #:[id number] : 1950 74 From: Shayla Fay DO PCP: Dr. Mateo Marmolejo MD Status:[facility] Location: [place] [address] Problems Associated Problem List Diagnoses (1) Postmenopausal bleeding: (2) Thickened endometrium: Multi Select Codes Urinary/Genital Urinary/Genital CPT Codes: 61555 Hysteroscopy,EMC, Polypectomy Operative Report (Standard) Operative Information Date of Procedure: 01/18/25 Pre-Operative Diagnosis: postmenopausal bleeding and thickened endometrium Post-Operative Diagnosis: postmenopausal bleeding and thickened endometrium Surgery/Procedure Performed: hysteroscopy dilation and curettage kiln firer: No Type of Anesthesia: MAC and Topical Anesth RN Documented Start/Stop Times: Operation Date: 01/18/25 10:10 Case Time Into Pre-Op 01/18/25 08:19 Anesthesia Start 01/18/25 10:54 Into Room 01/18/25 10:54 Procedure Start 01/18/25 11:12 Procedure End 01/18/25 11:24 Anesthesia End 01/18/25 11:30 Out of Room 01/18/25 11:30 Into Recovery 01/18/25 11:35 Procedure Start Time: 11:12 Procedure Stop Time: 11:30 Select all DRAINS/GRAFTS/IMPLANTS that apply: None Estimated Blood Loss: 5cc Specimen collected: Yes Description of specimen(s) removed: endometrial curetting's Description of surgery: Patient was prepped and draped in a normal sterile fashion under MAC anesthesia. A weighted speculum was placed in the vagina and the anterior lip of the cervixwas grasped with a single-tooth tenaculum. A paracervical block was placed with1% lidocaine. Cervix was progressively dilated to allow passage of a 5 mm hysteroscope. The lining was fully visualized and noted to have a polyp lookingstructure at the fundus . A Curettage was performed and [the specimen was sent to pathology. All instruments were removed from the vagina and excellent hemostasis was noted. Patient was awoken and taken to recovery in stable condition. Surgical Findings: likely endometrial polyp. multiple healing and active groin abscesses (hidradenitis suppurativa) Complications Complications: No Admit VTE Documentation VTE Present on Admission: No VTE Mechan Device Prophylaxis: SCD's VTE Pharm Prophylaxis ordered?: No 01/18/25 1144 Cosigner Signature (if applicable): CC: Dr. Mateo Marmolejo MD; Dr. Shayla Fay, DO~ Signed [facility]03-25-2025 Consult note Author Jimmy Musa [facility] Note Date/Time January 18, 2025 9:[address] [facility] Medical Records Department [address] [place] [address] Pre-Anesthesia Evaluation 01/18/2529 MR#: [id number] Acct: [id number] Name: MÓNICA DECKER Rep #:[id number] : 1950 74 From: Jimmy Musa MD PCP: Dr. Mateo Marmolejo MD [place] [place] Race: C Location: [place] [address] ASA Classification* ASA Classification ASA Classification: 3 Assessment & Plan Anesthesia* Anesthesia Assessment Anesthesia Assessment: Discussed sedation and/or anesthesia options, risks, benefits, and alternatives with patient/parents/legal guardian/POA. Questions invited. The patient/parents/legal guardian/POA seems to understand and agrees to proceedwith anesthesia plan. Reviewed the physical assessment, medical history, allergy history and patient home medications list prior to surgery/procedure/anesthetic and documented any changes. Performed airway and anesthesia risk assessments. Anesthesia Type Anesthesia Type: MAC History Source History Obtained from:: Patient and Chart Anesthesia Focused Assessment* Temperature: 98.3 F Pulse Rate: 59 Blood Pressure: 104/61 Respiratory Rate: 16 Pulse Ox: 96 Oxygen Delivery Method: Room Air Airway Assessment Mouth opens: >3 cm Mallampati Score: II Teeth Condition: Caps/Crowns (Patient has couple crowns. They are tight.) Neck Range of motion (ROM): Full ROM Focused Labs Anesthesia Preop lab: CBC WBC 7.5 K/mm3 (4.4-11.0) 01/06/25 11:21 01/06/25 RBC 4.22 M/mm3 (4.2-5.4) 01/06/25 11:21 01/06/25 Hgb 12.6 g/dL (12.0-15.0) 01/06/25 11:21 01/06/25 Hct 37.0 % (37-47) 01/06/25 11:21 01/06/25 Plt Count 329 K/mm3 (150-450) 01/06/25 11:21 01/06/25 CHEMISTRY Potassium 4.2 mmol/L (3.3-5.1) 01/06/25 11:21 01/06/25 Sodium 129 mmol/L (133-145) L 01/06/25 11:21 01/06/25 Magnesium 1.7 mg/dL (1.6-2.6) 01/05/20 23:35 01/05/20 BUN 20 mg/dL (4-19) H 01/06/25 11:21 01/06/25 Creatinine 0.84 mg/dL (0.70-1.20) 01/06/25 11:21 01/06/25 Glucose 120 mg/dL (70-99) H 01/06/25 11:21 01/06/25 TSH 8.15 uIU/mL (0.358-3.74) H 05/11/24 07:00 04/26 04/19 COAG Pre-Assessment Diagnosis/Proposed Procedure Planned Operative Procedure(s): Hysteroscopy,Dilation and Curettage Anesthesia History Anesthesia History - trauma nurse: Anesthesia History - trauma nurse Hx Hospitalization Yes: [facility] 01/04/25 14:07 Any Problems With Anesthesia Yes: LTAC AFTER HIP SURGERY 01/04/25 14:07 LAST YEAR Cholinesterase deficiency No 01/04/25 14:07 You/Your Family Experience No 01/04/25 14:07 fever (hyperthermia) with Relationship Recent Exposure to Contagious No 01/18/25 08:36 Disease Does patient have nerve No 01/04/25 14:07 stimulator Patient instructed to have device shut off --Does patient have Pacemaker No 01/18/25 08:36 or ICD? When Was Last Pacemaker Check QUESTION #4 FULL TEXT: You/Your Family Experience fever (hyperthermia) with Anesthesia Last Oral Intake Last Oral intake: Last Oral Intake NPO since 00:00 01/18/25 08:36 Meds taken in AM with sips of No 01/18/25 08:36 water? Meds patient instructed to take am of surgery PONV PONV - trauma nurse: PONV - trauma nurse Female Yes 01/04/25 14:07 HX of Motion Sickness No 01/04/25 14:07 HX of N/V After Surgery No 01/04/25 14:07 Non-Smoker Yes 01/04/25 14:07 Duration of Surgery greater No 01/04/25 14:07 than 60 minutes Number of Risk Factors 2 01/04/25 14:07 PONV Score Moderate Risk 01/04/25 14:07 Height & Weight Height & Weight: Anesthesia: Height & Weight Height 5 ft 01/18/25 08:36 Weight: 73 kg 01/18/25 08:36 Body Mass Index (BMI) 31.4 01/18/25 08:36 Respiratory Assessment Respiratory Assessment - trauma nurse: Respiratory Tract Infection Hx - trauma nurse Hx Respiratory Tract Infection No 01/04/25 14:07 Any additional information?: Yes Hx Respiratory Tract Infection: Yes (Patient has chronic cough.) STOP Sleep Apnea STOP Sleep Apnea - trauma nurse: STOP Sleep Apnea - trauma nurse Hx Hypertension Yes: CONTROLLED ON MED 01/04/25 14:07 Hx Sleep Apnea No 01/04/25 14:07 CPAP BIPAP Do you snore loudly (louder No 01/04/25 14:07 than talking or can be heard Do you often feel tired/ No 01/04/25 14:07 fatigued/ sleepy during daytime? Has anyone observed you stop No 01/04/25 14:07 breathing during sleep? STOP Results Negative 01/04/25 14:07 QUESTION #5 FULL TEXT : Do you snore loudly (louder than talking or can be heard through closed doors)? 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 Specify any problems Hx of Preganancy in last 3 No 01/04/25 14:07 Months Nurse Filling Out Transfusion VCHRISTIN 01/04/25 14:07 & Questions: Date: 01/04/25 01/04/25 14:07 Time: 14:09 01/04/25 14:07 Patient unable to answer at this time (ie. confused, unrespo /Reproduction History /Reproductive History - trauma nurse: /Reproductive Hx- trauma nurse Hx Now No 01/04/25 14:07 Gestational Age (in weeks): EDC: Hx Hx Para Hx Section SAB No 01/04/25 14:07 [facility] Medical History Post-menopausal Depression Anxiety Dementia Open wound Arthritis Non-smoker Shortness of breath on exertion Urinary incontinence Gout Hypothyroid High cholesterol HTN (hypertension) Home Medications ?Medication ?Instructions ?Recorded ?Last Taken ?Type levothyroxine 137 mcg tablet 150 mcg PO DAILY thyroid 01/06/20 01/05/20 History lisinopril 10 mg tablet 40 mg PO DAILY blood pressur e 01/06/20 01/04/20 History amlodipine 10 mg tablet (Norvasc) 10 mg PO DAILY 08/06 Unknown History furosemide 40 mg tablet (Lasix) 40 mg PO DAILY 4 Unknown History pravastatin 10 mg tablet 10 mg PO QHS 08/06/24 Unknow n History allopurinol 300 mg tablet 300 mg PO QDAY 12/10/24 Unkn own History mecobalamin (vitamin B12) 1,000 1,000 mcg PO QDAY 11/27 02/18 Unknown History mcg chewable tablet potassium chloride 20 mEq 20 meq PO QDAY 12/10/24 Unkn own History tablet,extended release donepezil 5 mg tablet 5 mg PO DAILY 01/04/25 Unkno wn History doxycycline hyclate 100 mg tablet 100 mg PO BID Unknown History Allergy/AdvReac Type Severity Reaction Status Date / Time Latex, Natural Rubber Allergy Mild Rash Verified 01/18/25 08:34 Family History Father Colon cancer Mother Hypertension Surgical History Status post amputation of finger S/P bladder repair History of left hip replacement H/O thyroidectomy History of right hip replacement Social History Smoking Status: Never smoker additional social history: Single Review of Systems (Anesthesia) ROS Narrative System reviewed and no additional complaints, except as documented. 01/18/25 0941 <Electronically signed by Jimmy hall MD> Date _ Jimmy Musa MD Cosigner Signature: Date CC: ~ Signed [facility] Work Phone: 1(968) 307-728303-25-[address] [facility] Medical Records Department [address] [place] [address] Anesthesia Postop Eval I 01/18/25 1133 MR#: [id number] Acct: [id number] Name: MÓNICA DECKER Mary Rep #:[id number] : 1950 74 From: Christina hinkle CRNA PCP: Dr. Mateo Marmolejo MD Status:[facility] Y Race: C Location: [place] [address] Anesthesia: Postop Eval I Current Vital Signs Temperature: 97 F Pulse Rate: 60 Blood Pressure: 103/69 Respiratory Rate: 16 Pulse Ox: 98 Oxygen Delivery Method: Room Air Assessment Airway patent: Yes Spontaneous unlabored respirations: Yes Mental status: Awake and Calm nausea: No Vomiting: No Anesthesia Complication: No Fluid Hydration Crystalloid volume administer (ml): 10 Total IV fluid infused: 10 Progress Note Anesthesia document: Postop Eval 1 completed: Yes 01/18/25 1134 catarina WRAPPER CASER> Date _ Christina Kobylanski WRAPPER CASER Cosigner Signature: Date CC: ~ Signed [facility]03-25-2025 [facility] Medical Records Department [address] [place] [address] History Physical Exam 01/18/25 1018 MR#: [id number] Acct: [id number] Name: MÓNICA DECKER Rep #: [id number] : 1950 74 From: Shayla Fay DO PCP: Dr. Mateo Marmolejo MD Status:[facility] Location: [place] [address] History and Physical Date of Admission: 01/18/25 Intake Vital Signs 08/06/2410:00 12/03/2516:27 12/10/2508:12 Height 4 ft 11 in 5 ft 5 ft Weight: 170 lb 4 oz BMI 33.2 BP 112/62 Intake Visit Reasons: ENDOMETRIAL THICKENING POSS. 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 Is patient in pain?: No Allergies Latex, Natural Rubber Allergy (Mild, Verified 12/10/24 09:42) Rash Medications ???Medication ???Instructions ???Recorded ???Confirmed ???Type levothyroxine 137 mcg tablet 150 mcg PO DAILY thyroid 01/06/20 12/10/24 History lisinopril 10 mg tablet 40 mg PO DAILY blood pressure 01/06/20 12/10/24 Hi story amlodipine 10 mg tablet (Norvasc) 10 mg PO DAILY 08/06/24 12/10/24 History furosemide 40 mg tablet (Lasix) 40 mg PO DAILY 08/06/24 12/10/24 History pravastatin 10 mg tablet 10 mg PO QHS 08/06/24 12/10/24 History nystatin 100,000 unit/gram topical 1 applic topical BID #30 grams 12/03/24 12/10/24 R x powder allopurinol 300 mg tablet 300 mg PO QDAY 12/10/24 12/10/24 History doxycycline hyclate 100 mg capsule 100 mg PO QDAY 12/10/24 12/10/24 History mecobalamin (vitamin B12) 1,000 1,000 mcg PO QDAY 12/10/24 12/10/24 History mcg chewable tablet potassium chloride 20 mEq 20 meq PO QDAY 12/10/24 12/10/24 History tablet,extended release vibegron 75 mg tablet (Gemtesa) 75 mg PO QDAY 12/10/24 12/10/24 History Is last menstrual period known: No Post menopausal: Yes Patient : No : No PFSH PFSH Medical History (Updated 12/10/24 @ 10:[address] Shayla Fay, DO) Urinary incontinence Gout Hypothyroid High cholesterol HTN (hypertension) Surgical History (Updated 12/10/24 @ 09:47 by Criselda Lee) Status post amputation of finger S/P bladder repair History of left hip replacement H/O thyroidectomy History of right hip replacement Family History (Updated 12/10/24 @ 09:47 by Criselda Lee) Father Colon cancerMother Hypertension Social History (Updated 12/10/24 @ 09:48 by Criselda Lee) Smoking Status: Never smoker additional social history: Single History 0 Elective abortions Hx Para Spontaneous abortions Hx # Term Pregnancies Ectopic pregnancies Hx # Pregnancies Multiple births # of living children HPI ENDOMETRIAL THICKENING POSS. EMB (GABRIELA) Details: MÓNICA DECKER is a 74 year old who presents for discussion about thickened endometrium measuring 12mm and some postmenopausal bleeding. This was found by Dr. Ochoa. She also suffers with HS and on doxy, sees the wound center for this. (She is a very poor historian and has a tangential thought process. ROS was difficult to obtain and keep her on track) ROS Const ROS Unobtainable: All systems reviewed are unremarkable except as noted in H Resp Resp: Reports system reviewed and no additional complaints, except as documented; Denies cough GI GI: Reports as per HPI Psych Psych: Reports system reviewed and no additional complaints, except as documented Exam Const General: cooperative, healthy appearing, comfortable and no acute distress Resp Effort Inspection: normal respiratory effort Other: Groin abscess that are oozing and different stages of healing present. Skin General: no rashes or lesions noted Psych Appearance: grossly normal Speech and Movement: speech and movement normal Coding Level of Care Code Off vis,new,level 5 Diagnoses Thickened endometrium R93.89 Postmenopausal bleeding N95.0 Assessment and Plan Assessment and Plan (1) Thickened endometrium: Status: Acute (2) Postmenopausal bleeding: Status: Acute Medications: Discontinued sulfamethoxazole-trimethoprim 800-160 mg Discontinued Reason: Order Completed 1 TAB PO BID 14 TABLETS 0RF sulfamethoxazole-trimethoprim 800-160 mg Discontinued Reason: Order Completed 1 TAB PO BID 20 TABLETS 0RF silver sulfadiazine 1% (SSD) apply a 1.5 mm thickness Discontinued Reason: Order Completed 1 applic topical BID 400 grams 0RF Plan continue antibiotics for HS will need hysteroscopy D C but based on her history after her last anesthesia, I want to ask anesthesia if they will consider spinal anesthesia. After discussing the patient's diagnosis and treatment plan options, patient wishes to proceed with surgical management. I have discussed with the patient the risks, benefits, and alternatives of the procedure which include but are not limited to risks of anesthesia, (more content not included)...[facility]03-25-2025 Evaluation note* Diagnosis Onset Date Resolution Status Admit Date Postmenopausal bleeding acute M arch 2024 8:15am Thickened endometrium acute Mar ch 2024 8:15am Postmenopausal bleeding acute A pril 2024 9:15am Thickened endometrium acute Apr il 2024 9:15am Hidradenitis suppurativa acute April 01, 2025 10:12am Hidradenitis suppurativa acute April 18, 2025 9:15am Skin ulcer of right groin wi th fat layer exposed acute April 18 9:15am Ulcer of left groin with fat layer exposed acute April 18, 2025 9:15am Vulval cellulitis acute April 212024 2:51pm Vulvar abscess acute April 21, 2025 2:51pm Hidradenitis suppurativa acute May 02, 2025 9:24am Skin ulcer of right groin wi th fat layer exposed acute May 02, 2025 9:24am Ulcer of left groin with fat layer exposed acute May 02, 2025 9 :24am [facility] Work Phone: 1(596) 610-604103-25-2025 Evaluation note* Diagnosis Onset Date Resolution Status Admit Date Postmenopausal bleeding acute M arch 2024 8:15am Thickened endometrium acute Mar ch 2024 8:15am Postmenopausal bleeding acute A pril 2024 9:15am Thickened endometrium acute Apr il 7th, 2025 9:15am Hidradenitis suppurativa acute April 01, 2025 10:12am Hidradenitis suppurativa acute April 18, 2025 9:15am Skin ulcer of right groin wi th fat layer exposed acute April 18 9:15am Ulcer of left groin with fat layer exposed acute April 18, 2025 9:15am Vulval cellulitis acute April 212024 2:51pm Vulvar abscess acute April 21, 2025 2:51pm Hidradenitis suppurativa acute May 02, 2025 9:24am Skin ulcer of right groin wi th fat layer exposed acute May 02, 2025 9:24am Ulcer of left groin with fat layer exposed acute May 02, 2025 9 :24am Hidradenitis suppurativa acute May 04, 2025 9:25am [facility] Work Phone: 1(775) 299-943303-25-[address] [facility] Medical Records Department [address] [place] [address] Pre-Anesthesia Evaluation 01/18/2529 MR#: [id number] Acct: [id number] Name: MÓNICA DECKER Rep #:[id number] : 1950 74 From: Jimmy Musa MD PCP: Dr. Mateo Marmolejo MD [place] [facility] [place] C Location: [place] [address] ASA Classification* ASA Classification ASA Classification: 3 Assessment & Plan Anesthesia* Anesthesia Assessment Anesthesia Assessment: Discussed sedation and/or anesthesia options, risks, benefits, and alternatives with patient/parents/legal guardian/POA. Questions invited. The patient/parents/legal guardian/POA seems to understand and agrees to proceedwith anesthesia plan. Reviewed the physical assessment, medical history, allergy history and patient home medications list prior to surgery/procedure/anesthetic and documented any changes. Performed airway and anesthesia risk assessments. Anesthesia Type Anesthesia Type: MAC History Source History Obtained from:: Patient and Chart Anesthesia Focused Assessment* Temperature: 98.3 F Pulse Rate: 59 Blood Pressure: 104/61 Respiratory Rate: 16 Pulse Ox: 96 Oxygen Delivery Method: Room Air Airway Assessment Mouth opens: >3 cm Mallampati Score: II Teeth Condition: Caps/Crowns (Patient has couple crowns. They are tight.) Neck Range of motion (ROM): Full ROM Focused Labs Anesthesia Preop lab: CBC WBC 7.5 K/mm3 (4.4-11.0) 01/06/25 11:21 01/06/25 RBC 4.22 M/mm3 (4.2-5.4) 01/06/25 11:21 01/06/25 Hgb 12.6 g/dL (12.0-15.0) 01/06/25 11:21 01/06/25 Hct 37.0 % (37-47) 01/06/25 11:21 01/06/25 Plt Count 329 K/mm3 (150-450) 01/06/25 11:21 01/06/25 CHEMISTRY Potassium 4.2 mmol/L (3.3-5.1) 01/06/25 11:21 01/06/25 Sodium 129 mmol/L (133-145) L 01/06/25 11:21 01/06/25 Magnesium 1.7 mg/dL (1.6-2.6) 01/05/20 23:35 01/05/20 BUN 20 mg/dL (4-19) H 01/06/25 11:21 01/06/25 Creatinine 0.84 mg/dL (0.70-1.20) 01/06/25 11:21 01/06/25 Glucose 120 mg/dL (70-99) H 01/06/25 11:21 01/06/25 TSH 8.15 uIU/mL (0.358-3.74) H 05/11/24 07:00 04/26 04/19 COAG Pre-Assessment Diagnosis/Proposed Procedure Planned Operative Procedure(s): Hysteroscopy,Dilation and Curettage Anesthesia History Anesthesia History - trauma nurse: Anesthesia History - trauma nurse Hx Hospitalization Yes: [facility] 01/04/25 14:07 Any Problems With Anesthesia Yes: LT[facility] AFTER HIP SURGERY 01/04/25 14:07 LAST YEAR Cholinesterase deficiency No 01/04/25 14:07 You/Your Family Experience No 01/04/25 14:07 fever (hyperthermia) with Relationship Recent Exposure to Contagious No 01/18/25 08:36 Disease Does patient have nerve No 01/04/25 14:07 stimulator Patient instructed to have device shut off --Does patient have Pacemaker No 01/18/25 08:36 or ICD? When Was Last Pacemaker Check QUESTION #4 FULL TEXT: You/Your Family Experience fever (hyperthermia) with Anesthesia Last Oral Intake Last Oral intake: Last Oral Intake NPO since 00:00 01/18/25 08:36 Meds taken in AM with sips of No 01/18/25 08:36 water? Meds patient instructed to take am of surgery PONV PONV - trauma nurse: PONV - trauma nurse Female Yes 01/04/25 14:07 HX of Motion Sickness No 01/04/25 14:07 HX of N/V After Surgery No 01/04/25 14:07 Non-Smoker Yes 01/04/25 14:07 Duration of Surgery greater No 01/04/25 14:07 than 60 minutes Number of Risk Factors 2 01/04/25 14:07 PONV Score Moderate Risk 01/04/25 14:07 Height & Weight Height & Weight: Anesthesia: Height & Weight Height 5 ft 01/18/25 08:36 Weight: 73 kg 01/18/25 08:36 Body Mass Index (BMI) 31.4 01/18/25 08:36 Respiratory Assessment Respiratory Assessment - trauma nurse: Respiratory Tract Infection Hx - trauma nurse Hx Respiratory Tract Infection No 01/04/25 14:07 Any additional information?: Yes Hx Respiratory Tract Infection: Yes (Patient has chronic cough.) STOP Sleep Apnea STOP Sleep Apnea - trauma nurse: STOP Sleep Apnea - trauma nurse Hx Hypertension Yes: CONTROLLED ON MED 01/04/25 14:07 Hx Sleep Apnea No 01/04/25 14:07 CPAP BIPAP Do you snore loudly (louder No 01/04/25 14:07 than talking or can be heard Do you often feel tired/ No 01/04/25 14:07 fatigued/ sleepy during daytime? Has anyone observed you stop No 01/04/25 14:07 breathing during sleep? STOP Results Negative 01/04/25 14:07 QUESTION #5 FULL TEXT : Do you snore loudly (louder than talking or can be heard through closeddoors)? 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 Specify any problems Hx of Preganancy in last 3 No 01/04/25 14:07 Months Nurse Filling Out Transfusion VCHRISTIN 01/04/25 14:07 & Questions: Date: 01/04/25 01/04/25 14:07 Time: 14:09 01/04/25 14:07 Patient unable to answer at this time (ie. confused, unrespo /Reproduction History /Reproductive History - trauma nurse: /Reproductive Hx- trauma nurse Hx Now No 01/04/25 14:07 Gestational Age (in weeks): EDC: Hx Hx Para Hx Section SAB No 01/04/25 14:07 PFSH Medical History Post-menopausal Depression Anxiety Dementia Open wound Arthritis Non-smoker Shortness of breath on exertion Urinary incontinence Gout Hypothyroid High cholesterol HTN (hypertension) Home Medications ?Medication ?Instructions ?Recorded ?Last Taken ?Type levothyroxine 137 mcg tablet 150 mcg PO DAILY thyroid 01/06/20 01/05/20 History lisinopril 10 mg tablet 40 mg PO DAILY blood pressur e 01/06/20 01/04/20 History amlodipine 10 mg tablet (Norvasc) 10 mg PO DAILY 08/06 Unknown History furosemide 40 mg tablet (Lasix) 40 mg PO DAILY 4 Unknown History pravastatin 10 mg tablet 10 mg PO QHS 08/06/24 Unknow n History allopurinol 300 mg tablet 300 mg PO QDAY 12/10/24 Unkn own History mecobalamin (vitamin B12) 1,000 1,000 mcg PO QDAY 11/27 02/18 Unknown History mcg chewable tablet potassium chloride 20 mEq 20 meq PO QDAY 12/10/24 Unkn own History tablet,extended release donepezil 5 mg tablet 5 mg PO DAILY 01/04/25 Unkno wn History doxycycline hyclate 100 mg tablet 100 mg PO BID Unknown History Allergy/AdvReac Type Severity Reaction Status Date / Time Latex, Natural Rubber Allergy Mild Rash Verified 01/18/25 08:34 Family History Father Colon cancer Mother Hypertension Surgical History Status post amputation of finger S/P bladder repair History of left hip replacement H/O thyroidectomy History of right hip replacement Social History Smoking Status: Never smoker additional social history: Single Review of Systems (Anesthesia) ROS Narrative System reviewed and no additional complaints, except as documented. 01/18/25 0941 isabel JULES> Date _ Jimmy Musa MD Cosigner Signature: Date CC: ~ Signed [facility]03-17-2025 Telephone encounter Note* Telephone Encounter - Keyanna Bishop MA - 01/10/2025 9:15 AM EDT Letter mailed to pt home of results. Keyanna Bishop MA [facility]03-17-2025 Miscellaneous Notes* Telephone Encounter - Keyanna Bishop MA - 01/10/2025 9:15 AM EDT Letter mailed to pt home of results. Keyanna Bishop MA * Telephone Encounter - Ramiro Dominguez APRN.CNP - 01/10/2025 7:52 AM EDT Please let patient know their labs are normal. documented [facility] Telephone encounter Note * Telephone Encounter - Ramiro Dominguez APRN.CNP - 01/10/2025 7:52 AM EDT Please let patient know their labs are normal. [facility] Work Phone: 1(436) 491-984403-14-2025 Telephone encounter Note* Telephone Encounter - Rosey Stoner MA - 01/07/2025 1:32 PM EDT Pt notified and verbalized understanding Rosey Stoner MA [facility]03-14-2025 Miscellaneous Notes* Telephone Encounter - Rosey Stoner MA - 01/07/2025 1:32 PM EDT Pt notified and verbalized understanding Rosey Stoner MA * Telephone Encounter - Ramiro Dominguez APRN.CNP - 01/07/2025 11:55 AM EDT Please let patient know their xray is normal. Please let patient know her cough is likely post viral and there is nothing to treat it. documented in [facility] Telephone encounter Note * Telephone Encounter - Ramiro Dominguez APRN.CNP - 01/07/2025 11:55 AM EDT Please let patient know their xray is normal. Please let patient know her cough is likely post viral and there is nothing to treat it. [facility] Work Phone: 1(771) 950-936103-14-2025 History of Present illness Narrative* Reta Ruiz RT(R) - 01/07/2025 11:30 AM EDT Radiology Service Progress Note PATIENT NAME: Mónica Decker DATE OF SERVICE: January 07, 2025 TIME: 11:32 AM PATIENT IDENTITY VERIFICATION COMPLETED USING TWO (2) IDENTIFIERS: Name and Date of confirmedby patient verbally. FALL SCREENING: Has the patient had 2 falls in the last year or 1 fall with injury or currently using an Ambulatory Assistive Device (Walker, Cane, Wheelchair, Crutches, etc.)? Yes, Patient High Riskfor Falls What interventions were put in place to prevent falls during this visit? Offered Assistance with Transfers/Clothing and Instructed Patient to Remain Seated (Not on Exam Table) Until Exam PATIENT GENDER DATA: Assigned female at . status: : No status:NO. PATIENT RELEVANT IMPLANT DATA REVIEWED: Not Applicable PATIENT PRESENTS WITH AN IMPLANTABLE OR ATTACHED CELL TOWER CLIMBER: No RADIOLOGY DEPARTMENT: General X-ray: Exam(s) Completed: Chest X-Ray PERIPHERAL IV DATA: Not applicable SIGNED BY: LUZ Whitaker) January 07, 2025 11:32 AM documented in this encounterOhio[facility]03-[facility]-2025 NoteHNO ID: [id number] Author: RETA RUIZ RT(R) Service: Radiology Author Type: Technologist Type: Progress Notes Filed: 01/07/2025 11:42 Note Text: Radiology Service Progress Note PATIENT NAME: Mónica Decker DATE OF SERVICE: January 07, 2025 TIME: 11:32 AM PATIENT IDENTITY VERIFICATION COMPLETED USING TWO (2) IDENTIFIERS: Name and Date of confirmed by patient verbally. FALL SCREENING: Has the patient had 2 falls in the last year or 1 fall with injury or currently using an Ambulatory Assistive Device (Walker, Cane, Wheelchair, Crutches, etc.)? Yes, Patient High Risk for Falls What interventions were put in place to prevent falls during this visit? Offered Assistance with Transfers/Clothing and Instructed Patient to Remain Seated (Not on Exam Table) Until Exam PATIENT GENDER DATA: Assigned female at . status: : No status: NO. PATIENT RELEVANT IMPLANT DATA REVIEWED: Not Applicable PATIENT PRESENTS WITH AN IMPLANTABLE OR ATTACHED CELL TOWER CLIMBER: No RADIOLOGY DEPARTMENT: General X-ray: Exam(s) Completed: Chest X-Ray PERIPHERAL IV DATA: Not applicable SIGNED BY: RT Sherman(R) January 07, 2025 11:32 [facility]03-14-2025 NoteHNO ID: [id number] Author: RAMIOR DOMINGUEZ APRN.FINISHING TUNNEL OPERATOR Service: ? Author Type: Nurse Practitioner Type: Progress Notes Filed: 01/07/2025 13:45 Note Text: Chief Complaint Patient presents with: 6 Month Exam HPI Mónica Decker is a 74 year old female who presents here today for Above Complaints.. Patient presents today for annual physical and pre-op clearance. Patient states that she has had a semi productive cough and sore throat for a couple of weeks. Patient states she has been taking cough drops which have been helping with her sore throat. She is also having some chest soreness and tightness. Patient denies fever, ear pain, sinus pressure, chills and vomiting, but she does get nauseated after coughing. Patient is currently taking doxy for her abscess. Patient states she does not take her blood pressures at home, but she denies headaches and swelling. Patient states she did her EKG at the hospital yesterday. Past medical history, appointments, medications, allergies reviewed. Previous Medical History PAST MEDICAL HISTORY Diagnosis Date 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 01/24/2021 Adenomatous colon polyp Allergic rhinitis 07/08/2005 Bilateral hip pain 06/05/2023 Dystrophic nail 01/24/2021 multiple bilateral toes. Elevated hemoglobin A1c 08/27/2018 Essential hypertension, benign 07/08/2005 Fracture left forearm and right radial head Hammer toes of both feet 01/24/2021 Hyperlipidemia, mixed 02/05/2018 As of 02/05/18 patient declines statin therapy. Low vitamin B12 level 07/26/2024 Medicare annual wellness visit, subsequent 08/27/2018 Medicare part B: 02/24/2014 last done: 08/27/2019 Morbid (severe) obesity due to excess calories (HCC) 02/06/2006 OAB (overactive bladder) 12/19/2020 Declines medication as of 12/19/20 Obesity, Class II, BMI 35-39.9 02/19/2021 SANDRA (obstructive sleep apnea) 07/08/2005 Had corrective surgery Personal history of colonic polyps 03/14/2016 Postsurgical hypothyroidism 09/04/2005 Primary osteoarthritis of both hips 06/20/2015 Primary osteoarthritis of both knees 06/20/2015 Primary osteoarthritis of right hip 07/30/2023 S/P total left hip arthroplasty 04/22/2024 S/P total right hip arthroplasty 06/26/2023 Previous Surgical History PAST SURGICAL HISTORY Procedure Laterality Date AMPUTATION TOE,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 ARTHROSCOPY KNEE DIAGNOSTIC W/WO SYNOVIAL BX SPX Arthroscopy, knee COLONOSCOPY 05/30/2022 Tubular Adenoma-repeat in 3 years COLONOSCOPY FLX DX W/COLLJ SPEC WHEN PFRMD years ago Colonoscopy COLONOSCOPY FLX DX W/COLLJ SPEC WHEN PFRMD 10/13/2013 Colonoscopy COLONOSCOPY FLX DX W/COLLJ SPEC WHEN PFRMD 03/14/2016 Colonoscopy COLONOSCOPY FLX DX W/COLLJ SPEC WHEN PFRMD 11/09/2018 Colonoscopy COLSC FLX W/RMVL OF TUMOR POLYP LESION SNARE TQ 06/15/2010 PAST SURGICAL HISTORY OF 1960 bladder surgery to enlarge opening PAST SURGICAL HISTORY OF uvulectomy for SANDRA SIGMOIDOSCOPY FLX DX W/COLLJ SPEC BR/WA IF PFRMD 12/06/2013 Sigmoidoscopy, flexible THYROIDECTOMY TOTAL/COMPLETE 2004 TOTAL HIP REPLACEMENT Right 06/25/2023 TOTAL HIP REPLACEMENT Left 04/21/2024 Family History FAMILY HISTORY Problem Relation Age of Onset Hypertension Mother Dementia Mother Heart Father fluid on heart Glaucoma Father Colon Cancer Father Stroke Brother Strabismus Brother Detached Retina Brother Patient Allergies ALLERGIES Allergen Reactions Latex Unknown Current Medications Current Outpatient Medications on File Prior to Visit Medication Sig doxycycline (VIBRA-TABS) 100 mg tablet Take 100 mg by mouth two times a day. 45 days donepezil (ARICEPT) 5 mg tablet Take 1 tablet by mouth daily after breakfast. allopurinol (ZYLOPRIM) 300 mg tablet Take 1 tablet by mouth once daily. For gout. amLODIPine (NORVASC) 10 mg tablet Take 1 tablet by mouth once daily. PLEASE MAIL TO PATIENT;S HOME - PILL FILI furosemide (LASIX) 40 mg tablet Take 1 tablet by mouth once daily. PLEASE MAIL TO PATIENT;S HOME - PILL FILI lisinopril (ZESTRIL) 40 mg tablet Take 1 tablet by mouth once daily. PLEASE MAIL TO PATIENT'S HOME - PILL FILI pravastatin (PRAVACHOL) 10 mg tablet Take 1 tablet by mouth once daily. PLEASE MAIL TO PATIENT'S HOME - PILL FILI amoxicillin (AMOXIL) 500 mg capsule Please take 4 capsules by mouth 1 (one) hour prior to your dental appointment. (Patient not taking: Reported on 12/29/2024) cephALEXin (KEFLEX) 500 mg capsule EVERY 6 HOURS (Patient not taking: Reported on 12/29/2024) silver sulfADIAZINE (SILVADENE) 1 % cream carbamide peroxide (DEBROX) 6.5 % otic solution Use 5 Drops in both ears two times a day. (Patient not taking: Reported on 12/29/2024) cyanocobalamin (VITAMIN B-12) 1,000 mcg tab Take 1 tablet by mouth once daily. levothyroxine (LEVOXYL) 150 mcg tablet Take 1 tablet by mouth once daily. Mon-Sat and none on Friday. PLEASE MAIL TO PATIENT'S HOME - PILL FILI (more content not included)...[facility]03-14-2025 History of Present illness Narrative* Ramiro Dominguez APRN.[employer] - 01/07/2025 10:27 AM EDT Chief Complaint Patient presents with: 6 Month Exam HPI Mónica Decker is a 74 year old female who presents here today for Above Complaints.. Patient presents today for annual physical and pre-op clearance. Patient states that she has had a semi productive cough and sore throat for a couple of weeks. Patient states she has been taking cough drops which have been helping with her sore throat. She is also having some chest soreness and tightness. Patient denies fever, ear pain, sinus pressure, chills and vomiting, but she does get nauseated after coughing. Patient is currently taking doxy for her abscess. Patient states she does not take her blood pressures at home, but she denies headaches and swelling. Patient states she did her EKG at the hospital yesterday. Past medical history, appointments, medications, allergies reviewed. Previous Medical History PAST MEDICAL HISTORY Diagnosis Date 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 01/24/2021 Adenomatous colon polyp Allergic rhinitis 07/08/2005 Bilateral hip pain 06/05/2023 Dystrophic nail 01/24/2021 multiple bilateral toes. Elevated hemoglobin A1c 08/27/2018 Essential hypertension, benign 07/08/2005 Fracture left forearm and right radial head Hammer toes of both feet 01/24/2021 Hyperlipidemia, mixed 02/05/2018 As of 02/05/18 patient declines statin therapy. Low vitamin B12 level 07/26/2024 Medicare annual wellness visit, subsequent 08/27/2018 Medicare part B: 02/24/2014 last done: 08/27/2019 Morbid (severe) obesity due to excess calories (HCC) 02/06/2006 OAB (overactive bladder) 12/19/2020 Declines medication as of 12/19/20 Obesity, Class II, BMI 35-39.9 02/19/2021 SANDRA (obstructive sleep apnea) 07/08/2005 Had corrective surgery Personal history of colonic polyps 03/14/2016 Postsurgical hypothyroidism 09/04/2005 Primary osteoarthritis of both hips 06/20/2015 Primary osteoarthritis of both knees 06/20/2015 Primary osteoarthritis of right hip 07/30/2023 S/P total left hip arthroplasty 04/22/2024 S/P total right hip arthroplasty 06/26/2023 Previous Surgical History PAST SURGICAL HISTORY Procedure Laterality Date AMPUTATION TOE,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 ARTHROSCOPY KNEE DIAGNOSTIC W/WO SYNOVIAL BX SPX Arthroscopy, knee COLONOSCOPY 05/30/2022 Tubular Adenoma-repeat in 3 years COLONOSCOPY FLX DX W/COLLJ SPEC WHEN PFRMD years ago Colonoscopy COLONOSCOPY FLX DX W/COLLJ SPEC WHEN PFRMD 10/13/2013 Colonoscopy COLONOSCOPY FLX DX W/COLLJ SPEC WHEN PFRMD 03/14/2016 Colonoscopy COLONOSCOPY FLX DX W/COLLJ SPEC WHEN PFRMD 11/09/2018 Colonoscopy COLSC FLX W/RMVL OF TUMOR POLYP LESION SNARE TQ 06/15/2010 PAST SURGICAL HISTORY OF 1960 bladder surgery to enlarge opening PAST SURGICAL HISTORY OF uvulectomy for SANDRA SIGMOIDOSCOPY FLX DX W/COLLJ SPEC BR/WA IF PFRMD 12/06/2013 Sigmoidoscopy, flexible THYROIDECTOMY TOTAL/COMPLETE 2004 TOTAL HIP REPLACEMENT Right 06/25/2023 TOTAL HIP REPLACEMENT Left 04/21/2024 Family History FAMILY HISTORY Problem Relation Age of Onset Hypertension Mother Dementia Mother Heart Father fluid on heart Glaucoma Father Colon Cancer Father Stroke Brother Strabismus Brother Detached Retina Brother Patient Allergies ALLERGIES Allergen Reactions Latex Unknown Current Medications Current Outpatient Medications on File Prior to Visit Medication Sig doxycycline (VIBRA-TABS) 100 mg tablet Take 100 mg by mouth two times a day. 45 days donepezil (ARICEPT) 5 mg tablet Take 1 tablet by mouth daily after breakfast. allopurinol (ZYLOPRIM) 300 mg tablet Take 1 tablet by mouth once daily. For gout. amLODIPine (NORVASC) 10 mg tablet Take 1 tablet by mouth once daily. PLEASE MAIL TO PATIENT;S HOME - PILL FILI furosemide (LASIX) 40 mg tablet Take 1 tablet by mouth once daily. PLEASE MAIL TO PATIENT;S HOME - PILL FILI lisinopril (ZESTRIL) 40 mg tablet Take 1 tablet by mouth once daily. PLEASE MAIL TO PATIENT'S HOME - PILL FILI pravastatin (PRAVACHOL) 10 mg tablet Take 1 tablet by mouth once daily. PLEASE MAIL TO PATIENT'S HOME - PILL FILI amoxicillin (AMOXIL) 500 mg capsule Please take 4 capsules by mouth 1 (one) hour prior to your dental appointment. (Patient not taking: Reported on 12/29/2024) cephALEXin (KEFLEX) 500 mg capsule EVERY 6 HOURS (Patient not taking: Reported on 12/29/2024) silver sulfADIAZINE (SILVADENE) 1 % cream carbamide peroxide (DEBROX) 6.5 % otic solution Use 5 Drops in both ears two times a day. (Patient not taking: Reported on 12/29/2024) cyanocobalamin (VITAMIN B-12) 1,000 mcg tab Take 1 tablet by mouth once daily. levothyroxine (LEVOXYL) 150 mcg tablet Take 1 tablet by mouth once daily. Mon- Fri and none on Friday. PLEASE MAIL TO PATIENT'S HOME - PILL FILI potassium chloride 20 mEq TbER Take 1 tablet by mouth once daily. Cholecalciferol, Vitamin D3, (VITAMIN D-3) 50 mcg (2,000 unit) cap Take 1 capsule by mouth once daily. (Patient not taking: Reported on 12/29/2024) acetaminophen (TYLENOL) 500 mg tablet Take 2 tablets by mouth every 8 hours as needed for pain. polyethylene glycol 3350 17 gram packet Take 1 Packet by mouth once daily. Dissolve dose in 4 - 8 ounces of liquid and take as directed. No current facility-administered medications on file prior to visit. Social History Social History Tobacco Use Smoking status: Never Smokeless tobacco: Never Tobacco comments: Mom used to smoke, quit 2011 Vaping Use Vaping status: Never Used Substance Use Topics Alcohol use: No Drug use: No Review of Symptoms REVIEW OF SYSTEMS GENERAL: No weight loss, malaise or fevers HEENT: Negative for frequent or significant headaches, No changes in hearing or vision, no nose bleeds or other nasal problems RESPIRATORY: Cough; dry CARDIOVASCULAR: Chest pain EXAM: BP 133/75 Pulse 64 Wt 75 kg (165 lb 5.5 oz) BMI 32.29 kg/m General Appearance: Well appearing, alert, in no acute distress, well-hydrated, well nourished.. Nose/Sinuses: Nares normal, septum midline, mucosa normal, no drainage or sinus tenderness. Oropharynx: Lips, mucosa, and tongue normal, teeth and gums normal, oropharynx normal and Positive findings: cervical adenopathy. Lungs: Lungs clear to auscultation. No wheezing, rhonchi, rales.. Heart: RRR without murmur, gallop, or rubs. No ectopy. Peripheral Pulses: Normal. Health Maintenance List BP Controlled (<130/80) due on 06/20/2022 Advance Directive Discussion due on 10/27/2024 RSV Vaccine(1 - 1-dose 75+ series) due on 07/23/2025 Shingrix Vaccine(1 of 2) due on 07/23/2025 Covid-19 Vaccine( - season) due on 01/20/2025 Colorectal Cancer Screening due on 05/30/2025 Annual PCP Team Chronic Disease Visit due on 07/23/2025 Depression Screening due on 07/23/2025 Anxiety Screening due on 07/23/2025 Diabetes Screening due on 07/23/2027 DTaP,Tdap,Td Vaccine(3 - Td or Tdap) due on 06/04/2029 Lipid Screening due on 07/23/2029 Bone Density Screening Completed Mammogram Screening Discontinued Influenza Vaccine Discontinued Hepatitis C Screening Discontinued Pneumococcal Vaccine: 50+ Discontinued ASSESSMENT/PLAN: 1. Encounter for lipid screening for cardiovascular disease - ICD9: V77.91, V81.2, ICD10: Z13.220, Z13.6 (primary diagnosis) - LIPID PANEL, NONFASTING 2. Screening for diabetes mellitus - ICD9: V77.1, ICD10: Z13.1 - HEMOGLOBIN A1C 3. Medication management - ICD9: V58.69, ICD10: Z79.899 - VITAMIN D 25 HYDROXY - THYROID STIMULATING HORMONE 4. Vitamin D deficiency - ICD9: 268.9, ICD10: E55.9 - VITAMIN D 25 HYDROXY 5. Subacute cough - ICD9: 786.2, ICD10: R05.2 - XR CHEST 2V FRONTAL/LAT 6. Preop examination - ICD9: V72.84, ICD10: Z01.818 - XR CHEST 2V FRONTAL/LAT -EKG and labs reviewed from [facility], WNL. -Based on the patient's history, physical, functional status, and ACS risk score, he has an 0.4% chance of a serious adverse cardiac event. This is average risk for his age an the planned operation. The risk is below the recommended threshold for further evaluation. Therefore, I do not recommend further preoperative testing and he may proceed with the planned operation. I recommend this risk assessment be incorporated into the overall discussion on risks and benefits of this operation. Ramiro Dominguez APRN.FINISHING TUNNEL OPERATOR documented in this encounter[facility] Evaluation note* Diagnosis Onset Date Resolution Status Admit Date Hidradenitis suppurativa acute December 30, 2024 2:22pm Postmenopausal bleeding acute M arch 2024 8:15am Thickened endometrium acute Mar ch 2024 8:15am Postmenopausal bleeding acute A pril 2024 9:15am Thickened endometrium acute Apr il 5 9:15am Hidradenitis suppurativa acute April 01, 2025 10:12am Hidradenitis suppurativa acute April 18, 2025 9:15am Skin ulcer of right groin wi th fat layer exposed acute April 18 9:15am Ulcer of left groin with fat layer exposed acute April 18, 2025 9:15am [facility] Work Phone: [phone]) 588-856603-06-2025 Evaluation note* Diagnosis Onset Date Resolution Status Admit Date Hidradenitis suppurativa acute December 30, 2024 2:22pm Postmenopausal bleeding acute M arch 2024 8:15am Thickened endometrium acute Mar ch 2024 8:15am Postmenopausal bleeding acute A pril 2024 9:15am Thickened endometrium acute Jan 9:15am Hidradenitis suppurativa acute April 01, 2025 10:12am Hidradenitis suppurativa acute April 18, 2025 9:15am Skin ulcer of right groin wi th fat layer exposed acute April 18 9:15am Ulcer of left groin with fat layer exposed acute April 18, 2025 9:15am Vulval cellulitis acute April 212024 2:51pm Vulvar abscess acute April 21, 2025 2:51pm [facility] Work Phone: [phone] NoteHNO ID: [id number] Author: SARAH YING MD Service: ? Author Type: Physician Type: Progress Notes Filed: 12/29/2024 13:58 Note Text: [facility] Initial Consult Mónica Decker is a 74 year old year old female who comes for Comprehensive Geriatric Assessment. Pt accompanied by: brother Ross Caregivers involved in care: HPI: Mónica is a 74-year-old, PMHx significant for Hypertension, hyperlipidemia , sandra,, hypothyroidism. , gout who had some complications after hip surgery in March 2024. After that time it was noted that she started having memory issues which are progressively getting worse according to the family. She was evaluated and there has been no significant change in functionality, except the transportation which is unclear whether it is a partially cognitive but mostly its physical and was asked to get MRI done. She did get MRI and unfortunately her hippocampal volumes at 1 percentile. She was explained the different ways to help keep her cognition going and was offered medication. Her hearing may require some evaluation. And she has not been having regular eye visits so that was being planned for her. Any Family History of dementia? Not that she is aware of Are you or your spouse a ? No Alzheimer Questionnaire Long-term Memory: Difficulty remembering distant events from the past like childhood, previous employment, wedding: NO Behavioral/personality: Withdrawn/Depressed: No Crying spells: no Anxious: No History of aggression: No History of irritability: No Apathy:No Recent changes in weight or appetite: YES Alcohol or Drug use: NO Smoking? NO Sleep: Do you snore loudly (louder than talking or loud enough to be heard through closed doors)? Cannot really tell if she snores , no collateral information Do you often feel tired, fatigued, or sleepy during daytime? Cannot really tell if she snores , no collateral information Has anyone observed you stop breathing during your sleep? Cannot really tell if she snores , no collateral information Are you restless when you sleep at night? Cannot really tell if she snores , no collateral information Do you have problems falling a sleep? Cannot really tell if she snores , no collateral information Do you have problems staying a sleep? Cannot really tell if she snores , no collateral information Psychosis: Hallucinations or delusions: NO Suicidal or homicidal ideations: NO Obsessions, compulsions, or hoarding: NO Safety: Does pt know his/her address? NO What would you do if there was a fire? Get out How would you call for help?911 Are there any firearms in the home?no Social History: Primary language: Malaysian Marital Status: Single Living situation: Home Alone Socially engaged? (participates in activities such as clubs, islam, community center, sports, games, visiting friends/relatives, etc?): NO Caregiver Georges Mills and Stress Are your feeling overwhelmed? NO Do you have concerns about your own health? NO Are you neglecting your own needs? NO Do you have financial concerns? NO Do your fear loss of employment? NO Do you have concerns about verbal/physical abuse? NO Do you feel that you are still capable of taking care of your relative? NO Are you willing to continue being in the caregiver role? NO B-ADLs: (I=independent,A=assistance,D=dependent) ?Bathing: I, Dressing: I, Toileting: I, Transferring:I, Continence: I, Feeding: I, I-ADLs: Ability to use phone: I, Shopping: I, Cooking: I, Housekeeping: I, Laundry: I, Transportation:A, she notes no decline Medications: {I, Handle Finances: I. Pmhx, Surhx , reviewed Home Meds: Prior to Admission medications : Medication doxycycline (VIBRA-TABS) 100 mg tablet, Sig Take 100 mg by mouth two times a day. 45 days, Start Date 12/03/24, End Date , Taking? Yes, Authorizing Provider Provider, Sybilf Medication allopurinol (ZYLOPRIM) 300 mg tablet, Sig Take 1 tablet by mouth once daily. For gout., Start Date 12/21/24, End Date , Taking? Yes, Authorizing Provider Alida Jaeger PA-C Medication amLODIPine (NORVASC) 10 mg tablet, Sig Take 1 tablet by mouth once daily. PLEASE MAIL TO PATIENT;S HOME - PILL FILI, Start Date 11/22/24, End Date , Taking? Yes, Authorizing Provider Alida Jaeger PA-C Medication furosemide (LASIX) 40 mg tablet, Sig Take 1 tablet by mouth once daily. PLEASE MAIL TO PATIENT;S HOME - PILL FILI, Start Date 11/22/24, End Date , Taking? Yes, Authorizing Provider Alida Jaeger PA-C Medication lisinopril (ZESTRIL) 40 mg tablet, Sig Take 1 tablet by mouth once daily. PLEASE MAIL TO PATIENT'S HOME - PILL FILI, Start Date 11/22/24, End Date , Taking? Yes, Authorizing Provider Alida Jaeger PA-C Medication pravastatin (PRAVACHOL) 10 mg tablet, Sig Take 1 tablet by mouth once daily. PLEASE MAIL TO PATIENT'S HOME - PILL FILI, Start Date 11/22/24, End Date , (more content not included)...[facility]03-05-2025 History of Present illness Narrative* Sarah Ying MD - 12/29/2024 11:59 AM EST [facility] Initial Consult Mónica Decker is a 74 year old year old female who comes for Comprehensive Geriatric Assessment. Pt accompanied by: brother Gerson Caregivers involved in care: HPI: Mónica is a 74-year-old, PMHx significant for Hypertension, hyperlipidemia , sandra,, hypothyroidism. ,gout who had some complications after hip surgery in March 2024. After that time it was noted that she started having memory issues which are progressively getting worse according to the family. She was evaluated and there has been no significant change in functionality, except the transportation which is unclear whether it is a partially cognitive but mostly its physical and was asked to get MRI done. She did get MRI and unfortunately her hippocampal volumes at 1 percentile. She was explained the different ways to help keep her cognition going and was offered medication. Her hearing may require some evaluation. And she has not been having regular eye visits so that was being planned for her. Any Family History of dementia? Not that she is aware of Are you or your spouse a ? No Alzheimer Questionnaire Long-term Memory: Difficulty remembering distant events from the past like childhood, previous employment, wedding: NO Behavioral/personality: Withdrawn/Depressed: No Crying spells: no Anxious: No History of aggression: No History of irritability: No Apathy:No Recent changes in weight or appetite: YES Alcohol or Drug use: NO Smoking? NO Sleep: Do you snore loudly (louder than talking or loud enough to be heard through closed doors)? Cannot really tell if she snores , no collateral information Do you often feel tired, fatigued, or sleepy during daytime? Cannot really tell if she snores , no collateral information Has anyone observed you stop breathing during your sleep? Cannot really tell if she snores , no collateral information Are you restless when you sleep at night? Cannot really tell if she snores , no collateral information Do you have problems falling a sleep? Cannot really tell if she snores , no collateral information Do you have problems staying a sleep? Cannot really tell if she snores , no collateral information Psychosis: Hallucinations or delusions: NO Suicidal or homicidal ideations: NO Obsessions, compulsions, or hoarding: NO Safety: Does pt know his/her address? NO What would you do if there was a fire? Get out How would you call for help?911 Are there any firearms in the home?no Social History: Primary language: Malaysian Marital Status: Single Living situation: Home Alone Socially engaged? (participates in activities such as clubs, islam, community center, sports, games, visiting friends/relatives, etc?): NO Caregiver Georges Mills and Stress Are your feeling overwhelmed? NO Do you have concerns about your own health? NO Are you neglecting your own needs? NO Do you have financial concerns? NO Do your fear loss of employment? NO Do you have concerns about verbal/physical abuse? NO Do you feel that you are still capable of taking care of your relative? NO Are you willing to continue being in the caregiver role? NO B-ADLs: (I=independent,A=assistance,D=dependent) ?Bathing: I, Dressing: I, Toileting: I, Transferring:I, Continence: I, Feeding: I, I-ADLs: Ability to use phone: I, Shopping: I, Cooking: I, Housekeeping: I, Laundry: I, Transportation:A, she notes no decline Medications: {I, Handle Finances: I. Pmhx, Surhx , reviewed Home Meds: Prior to Admission medications : Medication doxycycline (VIBRA-TABS) 100 mg tablet, Sig Take 100 mg by mouth two times a day. 45 days, Start Date 12/03/24, End Date , Taking? Yes, Authorizing Provider Provider, Purnima Medication allopurinol (ZYLOPRIM) 300 mg tablet, Sig Take 1 tablet by mouth once daily. For gout., Start Date 12/21/24, End Date , Taking? Yes, Authorizing Provider Alida Jaeger PA-C Medication amLODIPine (NORVASC) 10 mg tablet, Sig Take 1 tablet by mouth once daily. [facility], Start Date 11/22/24, End Date , Taking? Yes, Authorizing Provider Alida Jaeger PA-C Medication furosemide (LASIX) 40 mg tablet, Sig Take 1 tablet by mouth once daily. PLEASE MAIL TO PATIENT;S HOME - PILL FILI, Start Date 11/22/24, End Date , Taking? Yes, Authorizing Provider Alida Jaeger PA-C Medication lisinopril (ZESTRIL) 40 mg tablet, Sig Take 1 tablet by mouth once daily. PLEASE MAIL [facility]S HOME - PILL FILI, Start Date 11/22/24, End Date , Taking? Yes, Authorizing Provider Alida Jaeger PA-C Medication pravastatin (PRAVACHOL) 10 mg tablet, Sig Take 1 tablet by mouth once daily. PLEASE MAILTO PATIENT'S HOME - PILL FILI, Start Date 11/22/24, End Date , Taking? Yes, Authorizing Provider Alida Jaeger PA-C Medication silver sulfADIAZINE (SILVADENE) 1 % cream, Sig , Start Date 08/06/24, End Date , Taking?Yes, Authorizing Provider Gogo Cckeegan Medication cyanocobalamin (VITAMIN B-12) 1,000 mcg tab, Sig Take 1 tablet by mouth once daily., Start Date 08/11/24, End Date , Taking? Yes, Authorizing Provider Sarah Ying MD Medication levothyroxine (LEVOXYL) 150 mcg tablet, Sig Take 1 tablet by mouth once daily. Mon-Fri and none on Friday. PLEASE MAIL TO PATIENT'S HOME - PILL FILI, Start Date 07/28/24, End Date , Taking? Yes, Authorizing Provider Mateo Marmolejo MD Medication potassium chloride 20 mEq TbER, Sig Take 1 tablet by mouth once daily., Start Date 07/28/24, End Date , Taking? Yes, Authorizing Provider Mateo Marmolejo MD Medication acetaminophen (TYLENOL) 500 mg tablet, Sig Take 2 tablets by mouth every 8 hours as needed for pain., Start Date 04/25/24, End Date , Taking? Yes, Authorizing Provider Byron Knight MD Medication polyethylene glycol 3350 17 gram packet, Sig Take 1 Packet by mouth once daily. Dissolvedose in 4 - 8 ounces of liquid and take as directed., Start Date 04/26/24, End Date , Taking? Yes, Authorizing Provider Byron Knight MD Medication amoxicillin (AMOXIL) 500 mg capsule, Sig Please take 4 capsules by mouth 1 (one) hour prior to your dental appointment. Patient not taking: Reported on 12/29/2024, Start Date 10/06/24, End Date , Taking? 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 , Authorizing Provider Provider, [facility] Medication carbamide peroxide (DEBROX) 6.5 % otic solution, Sig Use 5 Drops in both ears two times a day. Patient not taking: Reported on 12/29/2024, Start Date 08/11/24, End Date , Taking? , Authorizing Provider Sarah Ying MD Medication Cholecalciferol, Vitamin D3, (VITAMIN D-3) 50 mcg (2,000 unit) cap, Sig Take 1 capsule by mouth once daily. Patient not taking: Reported on 12/29/2024, Start Date , End Date , Taking? , Authorizing Provider Provider, [facility] Medication Review: - ANY HIGH RISK MEDICATIONS (STOPP CRITERIA): NO ALLERGIES Allergen Reactions Latex Unknown Review of Systems Difficulty chew/swallow: No Pain: No Tremor: None Incontinence - During the last 3 months did you leak urine? Yes - Type?: mixed incontinence Constipation/Change in bowel habits: For a while. Vision Other: she has one eye that is blurry and needs to see one Follows with parking supervisor:YES Hearing - Hearing aid : Hearing impairment, no hearing aids Falls: .: Falls in the last 12 months: None. If + falls: Physical Exam: General: Well-nourished, kempt Ambulatory:with a can Mobility Aid: Cane Head: Normocephalic Eyes: conjunctiva/corneas normal, EOMI Nose: clear Oropharynx: moist without lesions, teeth in good repair Neck: supple and no adenopathy Cardio: regular rate and rhythm Pulmonary: Lungs clear to auscultation bilaterally Extremities: Extremities normal. No deformities, edema, or skin discoloration. Musculoskeletal: Normal Gait Neuro:Deep Tendon reflexes :2/4 , Both Cranial nerves Extremities: Extremities normal. No deformities, edema, or skin discoloration. Musculoskeletal: No rigidity, tremor or bradykinesia is noted. Rhomberg: Negative. Neuro:Deep Tendon reflexes :2/4 , Both Lurias test: did it with some prompting A tandem gait testing abnormal Gait: Unsteadiness: NO Shuffling: no Tremors: NO Slowness: YES . Mini-Mental State Exam (MMSE): 26/30 CDR Dementia Scale 1) Subjective Memory Loss: YES 2) Measurable Memory Loss: NO 3) IADLs: YES 4) BADLs: NO Driving Safely: No < 50% 6) Medications: No Level: cdr 0.5 Labs: Reviewed in Epic, Brain Imaging:reviewed MRI of the brain With Assessment and Plan: I. Medical /Mental Status/Decision Making Capacity 1-Mentation #: Patient has memory issues along with the MRI that is showing hippocampal volumes of 1 percentile. She is definitely in some process of developing memory issues related to it. At this point she does seem to have some mild changes in her functional capacity. There is some changes in her ability tocalculate and possibly some issues with driving. Although it is not very clear if she would be ableto overcome this after her physical functionality is better. I am leaning more to her having mild cognitive impairment at this time. I still would like her to get the benefit of the Aricept especially because she is having some trouble with her finances. It would be prudent to get her eyes evaluated and also to get her hearing evaluated. The patient does not seem to be of major concern in her plan: We discussed trial of and keep her functional Ariceptmedication to improve cognition. Side effects discuss in detail. 2-Mobility -- -Her mobility has improved significantly. Prior to her surgeries she was inching a couple inches atthe time. Plan -Continue physical therapy and being active we discussed in detail the need for her to. 3-Medications and chronic medical conditions -Continue all other medications at this point. None of them are concerning. Her blood pressure and cholesterols are well-controlled Plan 4- Matters Most - Gave her healthcare power of securities attorney documents she could fill up and notarized. that . She is going to check into it. 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 Discussed the cognitive benefits of memory exercises and reviewed examples 2. Discussed the cognitive benefits of physical exercise and socialization Voice recognition software was used to compose this office note. Please excuse any unintended typographical errors. Sarah Ying MD [facility] documented in this encounter[facility] Telephone encounter Note * Telephone Encounter - Monty Minor RN - 12/25/2024 9:29 AM EST Phoned pt to get permission to speak with her brother Gerson. Pt gave permission. Discussed provider's message below with pt. Pt states she did tell Dr. Ochoa she did not feel like she needed the medication because the urinary problem resolved. Pt unsure if it is because she took the medication. Ptstates if she decides she wants to take it again she will call Dr. Ochoa. Phoned brotherGerson, and read provider's message below. Gerson verbalized understanding. [facility]03-01-2025 Miscellaneous Notes* Telephone Encounter - Monty Minor RN - 12/25/2024 9:29 AM EST Phoned pt to get permission to speak with her brother Gerson. Pt gave permission. Discussed provider's message below with pt. Pt states she did tell Dr. Ochoa she did not feel like she needed the medication because the urinary problem resolved. Pt unsure if it is because she took the medication. Ptstates if she decides she wants to take it again she will call Dr. Ochoa. Phoned brotherGerson, and read provider's message below. Gerson verbalized understanding. * Telephone Encounter - Mateo Marmolejo MD - 12/24/2024 3:28 PM EST Let brother know we talked with Dr. Ochoas office and received copies of the last few office visits. When Mónica saw her on 12/22/[address] Ochoa she had not been taking the medication regularly and did not want to stay on it. Therefore it was stopped by the provider. Patient also told her she never picked up the script for the myrbetriq 50 mg. If this is not the case then he needs to reach out to Dr. Ochoa's Office. She never said Mónica had to get refills from her PCP. * Telephone Encounter - Taurus Chang MA - 12/24/2024 3:12 PM EST Received office note/given to PCP. * Telephone Encounter - Kendy Preston LPN - 12/23/2024 4:32 PM EST Gay calling from Dr Ochoa office said patient had stopped the Gemtesa and Dr Ochoa wanted heroff the bladder medications. Patient had called their office earlier in the month on 12/03 was confused and going on about her wounds, patient did not know what provider she was supposed to be seeing. she had given her Dr Marmolejo office number to call. Gay plans to fax office visit notes and conversa tion notes from 12/[address] Marmolejo when she is back in the office. * Telephone Encounter - Kendy Preston LPN - 12/23/2024 4:19 PM EST Hayde Gómez from Dr Ochoa office returned call and went over notes below from Dr Marmolejo and what nurse charted also. She is going to discuss this with Dr Ochoa and call office back may be Friday since it is getting close to closing for them. * Telephone Encounter - Richard Cruz MA - 12/23/2024 3:26 PM EST Placed call to Dr. Ochoa's office. No answer. Left message for her nurse to call office back. Richard Cruz MA * Telephone Encounter - Mateo Marmolejo MD - 12/23/2024 2:02 PM EST Please contact DR. Ochoa's office to see why patient is being told to get Gemtesa refill though me when she prescribed it? I don't even have a recent office note from her (which is unusual). * Telephone Encounter - Richard Cruz MA - 12/23/2024 8:54 AM EST Spoke with patients brotherGerson this morning. He states patient is scheduled with Dr. Kasi Eugene with wound care on 12/30/24. Wishes to cancel today's appointment with Dr. Marmolejo. While on phone with Gerson he mentioned patient saw Jackelin Ochoa for bladder issues. Was given samples on Gemtesa 75 mg PO daily. Getting relief from medication. Was advised further refills would needto come from pcp. Pended. Advise. Richard Cruz MA documented in [facility] encounter[facility] Telephone encounter Note * Telephone Encounter - Mateo Marmolejo MD - 12/24/2024 3:28 PM EST Let brother know we talked with Dr. Shine office and received copies of the last few office visits. When Mónica saw her on 12/22/[address] Ochoa she had not been taking the medication regularly and did not want to stay on it. Therefore it was stopped by the provider. Patient also told her she never picked up the script for the myrbetriq 50 mg. If this is not the case then he needs to reach out to Dr. Ochoa's Office. She never said Mónica had to get refills from her PCP. [facility]02-[facility] Telephone encounter Note* Telephone Encounter - Taurus Chang MA - 12/24/2024 3:12 PM EST Received office note/given to PCP. [facility]02-28-[facility] History of Present illness Narrative* Shai Gomes RT(R) - 12/24/2024 9:00 AM EST Radiology Service Progress Note PATIENT NAME: Mónica Decker DATE OF SERVICE: December 24, 2024 TIME: 9:06 AM PATIENT IDENTITY VERIFICATION COMPLETED USING TWO (2) IDENTIFIERS: Name and Date of confirmedby patient verbally and Name and Date of confirmed by identification band. FALL SCREENING: Has the patient had 2 falls in the last year or 1 fall with injury or currently using an Ambulatory Assistive Device (Walker, Cane, Wheelchair, Crutches, etc.)? No PATIENT GENDER DATA: Assigned female at . status: : No status:NO. PATIENT RELEVANT IMPLANT DATA REVIEWED: Yes PATIENT PRESENTS WITH AN IMPLANTABLE OR ATTACHED CELL TOWER CLIMBER: No RADIOLOGY DEPARTMENT: MR; Exam(s) Completed: Head: Routine Brain PERIPHERAL IV DATA: Not applicable SIGNED BY: LUZ Weaver) December 24, 2024 9:06 AM documented in this encounterOhio[facility]02-28-2025 NoteHNO ID: [id number] Author: SHAI GOMES RT (R) Service: Radiology Author Type: Technologist Type: Progress Notes Filed: 12/24/2024 09:06 Note Text: Radiology Service Progress Note PATIENT NAME: Mónica Decker DATE OF SERVICE: December 24, 2024 TIME: 9:06 AM PATIENT IDENTITY VERIFICATION COMPLETED USING TWO (2) IDENTIFIERS: Name and Date of confirmed by patient verbally and Name and Date of confirmed by identification band. FALL SCREENING: Has the patient had 2 falls in the last year or 1 fall with injury or currently using an Ambulatory Assistive Device (Walker, Cane, Wheelchair, Crutches, etc.)? No PATIENT GENDER DATA: Assigned female at . status: : No status: NO. PATIENT RELEVANT IMPLANT DATA REVIEWED: Yes PATIENT PRESENTS WITH AN IMPLANTABLE OR ATTACHED CELL TOWER CLIMBER: No RADIOLOGY DEPARTMENT: MR; Exam(s) Completed: Head: Routine Brain PERIPHERAL IV DATA: Not applicable SIGNED BY: LUZ Weaver) December 24, 2024 9:06 [facility]02-27-2025 Telephone encounter Note* Telephone Encounter - Kendy Preston LPN - 12/23/2024 4:32 PM EST Gay calling from Dr Ochoa office said patient had stopped the Gemtesa and Dr Ochoa wanted heroff the bladder medications. Patient had called their office earlier in the month on 12/03 was confused and going on about her wounds, patient did not know what provider she was supposed to be seeing. she had given her Dr Marmolejo office number to call. Gay plans to fax office visit notes and conversa tion notes from 12/[address] Marmolejo when she is back in the office. [facility]02-[facility] Telephone encounter Note* Telephone Encounter - Kendy Preston LPN - 12/23/2024 4:19 PM EST Hayde Gómez from Dr Ochoa office returned call and went over notes below from Dr Marmolejo and what nurse charted also. She is going to discuss this with Dr Ochoa and call office back may be Friday since it is getting close to closing for them. [facility]02-[facility] Telephone encounter Note* Telephone Encounter - Richard Cruz MA - 12/23/2024 3:26 PM EST Placed call to Dr. Ochoa's office. No answer. Left message for her nurse to call office back. Richard Cruz MA [facility]02-27-2025 Telephone encounter Note* Telephone Encounter - Mateo Marmolejo MD - 12/23/2024 2:02 PM EST Please contact DR. Ochoa's office to see why patient is being told to get Gemtesa refill though me when she prescribed it? I don't even have a recent office note from her (which is unusual). [facility]02-27-2025 Telephone encounter Note* Telephone Encounter - Richard Cruz MA - 12/23/2024 8:54 AM EST Spoke with patients brother, Gerson this morning. He states patient is scheduled with Dr. Kasi Eugene with wound care on 12/30/24. Wishes to cancel today's appointment with Dr. Marmolejo. While on phone with Gerson he mentioned patient saw Jackelin Ochoa for bladder issues. Was given samples on Gemtesa 75 mg PO daily. Getting relief from medication. Was advised further refills would needto come from pcp. Pended. Advise. Richard Cruz MA [facility]02-25-2025 Telephone encounter Note* Telephone Encounter - Zulma Burgos RN - 12/21/2024 11:46 AM EST The patient has been identified by name and date of : Yes Caregiver verified no other encounters exist for this prescription request: Yes Caregiver confirmed with patient/requestor that no other refills are due, in the near future, with this provider at this time: Yes The last office visit in the department: 07/23/2024 Does the patient have a future office visit with this provider/department: 12/23/2024 Requested Prescriptions Pending Prescriptions Disp Refills allopurinol (ZYLOPRIM) 300 mg tablet 90 tablet 1 Sig: Take 1 tablet by mouth once daily. For gout. Zulma Burgos RN December 21, 2024 11:46 AM [facility]02-25-2025 Miscellaneous Notes* Telephone Encounter - Zulma Burgos RN - 12/21/2024 11:46 AM EST The patient has been identified by name and date of : Yes Caregiver verified no other encounters exist for this prescription request: Yes Caregiver confirmed with patient/requestor that no other refills are due, in the near future, with this provider at this time: Yes The last office visit in the department: 07/23/2024 Does the patient have a future office visit with this provider/department: 12/23/2024 Requested Prescriptions Pending Prescriptions Disp Refills allopurinol (ZYLOPRIM) 300 mg tablet 90 tablet 1 Sig: Take 1 tablet by mouth once daily. For gout. Zulma Burgos RN December 21, 2024 11:46 AM documented in this encounterOhio[facility]02-14-2025 NoteHNO ID: [id number] Author: KELVIN DIETRICH LPN Service: ? Author Type: LICENSED NURSE Type: Progress Notes Filed: 12/10/2024 12:57 Note Text: Scan on 12/10/2024 8:17 AM by ProviderMarianna PA-C: [facility] History of Present illness Narrative* Kelvin Dietrich LPN - 12/10/2024 12:53 PM EST Scan on 12/10/2024 8:17 AM by Marianna Bowens PA-C: Consultation - Emergency Medicine documented in this encounterOhio[facility]02-14-2025 Evaluation note* Diagnosis Onset Date Resolution Status Admit Date Postmenopausal bleeding acute F ebruary 2024 9:02am Thickened endometrium acute Feb ruary 2024 9:02am Hidradenitis suppurativa acute December 30, 2024 2:22pm Postmenopausal bleeding acute M arch 2024 8:15am Thickened endometrium acute Mar ch 2024 8:15am [facility] Work Phone: 1(119) 221-828202-14-2025 Evaluation note* Diagnosis Onset Date Resolution Status Admit Date Postmenopausal bleeding acute F ebruary 2024 9:02am Thickened endometrium acute Feb ruary 2024 9:02am Hidradenitis suppurativa acute December 30, 2024 2:22pm Postmenopausal bleeding acute M arch 2024 8:15am Thickened endometrium acute Mar ch 2024 8:15am Postmenopausal bleeding acute A pril 2024 9:15am Thickened endometrium acute Apr il 2024 9:15am [facility] Work Phone: 1(595) 117-443702-10-2025 NoteHNO ID: [id number] Author: TAURUS CHAGN MA Service: ? Author Type: Deli Associate Type: Progress Notes Filed: 12/06/2024 16:36 Note Text: Scan on 12/03/2024 10:20 PM by ProviderMarianna PA-C: Consultation - Emergency Medicine Taurus Chang MA'[facility]02-10-[facility] History of Present illness Narrative* Taurus Chang MA - 12/06/2024 4:34 PM EST Scan on 12/03/2024 10:20 PM by ProviderMarianna PA-C: Consultation - Emergency Medicine Taurus Chang MA' documented in this encounterOhio[facility]02-07-2025 NoteHNO ID: [id number] Author: VALENTÍN MASON PA Service: ? Author Type: Physician Miniature Set Builder Type: Progress Notes Filed: 12/03/2024 17:19 Note Text: 74-year-old female presents for wound check. Patient states she has had wounds on her groin area for several months. They have gotten worse recently and are draining yellow fluid. Upon evaluation with dietitian teacher present, patient has yellow purulent drainage in bilateral inguinal canals. Right inguinal canal has large abscess present. Fluctuance noted with foul-smelling purulent drainage. Erythema noted. Concern for groin abscess with tunneling. Patient being referred to emergency room. Patient will take herself to ER. [facility]02-[facility] History of Present illness Narrative* Valentín Mason PA - 12/03/2024 5:15 PM EST 74-year-old female presents for wound check. Patient states she has had wounds on her groin area for several months. They have gotten worse recently and are draining yellow fluid. Upon evaluation with dietitian teacher present, patient has yellow purulent drainage in bilateral inguinal canals. Right inguinal canal has large abscess present. Fluctuance noted with foul-smelling purulent drainage. Erythema noted. Concern for groin abscess with tunneling. Patient being referred to emergency room. Patient will take herself to ER. Patient will go to [facility]. documented in this encounterOhio[facility]02-07-2025 Telephone encounter Note * Telephone Encounter - Sharlene Wang RN - 12/03/2024 3:29 PM EST Triage Protocol Advised: Have area evaluated today. Pt agreeable. Due to it being Friday afternoon, there are no provider appts available. Pt agreeable to go to [facility] for prompt evaluation. Reason for Disposition [1] Looks infected (e.g., spreading redness, pus) AND [2] no fever Answer Assessment - Initial Assessment Questions 1. LOCATION: bilateral leg/groin crease areas 2. WOUND APPEARANCE: pt unable to see areas 3. SIZE: pt not certain-not able to see it, she believes smaller than pencil eraser tip 4. SPREAD: no 5. ONSET: weeks 6. MECHANISM: Patient not certain how they began. Pt is has urinary incontinence and moisture in between skin folds at times 7. PAIN: mild 8. FEVER: denies. No chills or sweats. 9. OTHER SYMPTOMS: -fernandes colored exudate seeping from both wounds -weight loss, reports good appetite -no fever -no chills/sweats -no red streaking around wounds -no N/V/D -reports has tried cleansing with alcohol Protocols used: Wound Infection [id number] [facility]02-07-2025 Miscellaneous Notes* Telephone Encounter - Sharlene Wang RN - 12/03/2024 3:29 PM EST Triage Protocol Advised: Have area evaluated today. Pt agreeable. Due to it being Friday afternoon, there are no provider appts available. Pt agreeable to go to [facility] in [place] [facility] for prompt evaluation. Reason for Disposition [1] Looks infected (e.g., spreading redness, pus) AND [2] no fever Answer Assessment - Initial Assessment Questions 1. LOCATION: bilateral leg/groin crease areas 2. WOUND APPEARANCE: pt unable to see areas 3. SIZE: pt not certain-not able to see it, she believes smaller than pencil eraser tip 4. SPREAD: no 5. ONSET: weeks 6. MECHANISM: Patient not certain how they began. Pt is has urinary incontinence and moisture in between skin folds at times 7. PAIN: mild 8. FEVER: denies. No chills or sweats. 9. OTHER SYMPTOMS: -fernandes colored exudate seeping from both wounds -weight loss, reports good appetite -no fever -no chills/sweats -no red streaking around wounds -no N/V/D -reports has tried cleansing with alcohol Protocols used: Wound Infection [id number] documented in this encounterOhiohealth [facility]01-27-2025 Telephone encounter Note * Telephone Encounter - Christine Stern LPN - 11/22/2024 1:35 PM EST Prescription Refill Information The patient has been identified by name and date of : Yes Caregiver verified no other encounters exist for this prescription request: Yes Caregiver confirmed with patient/requestor that no other refills are due, in the near future, with this provider at this time: Yes The last office visit in the department: 11/10/24 Does the patient have a future office visit with this provider/department: Yes 01/21/25 Requested Prescriptions Pending Prescriptions Disp Refills amLODIPine (NORVASC) 10 mg tablet 90 tablet 1 Sig: Take 1 tablet by mouth once daily. PLEASE MAIL TO PATIENT;S HOME - PILL FILI furosemide (LASIX) 40 mg tablet 90 tablet 1 Sig: Take 1 tablet by mouth once daily. PLEASE MAIL TO PATIENT;S HOME - PILL FILI lisinopril (ZESTRIL) 40 mg tablet 90 tablet 1 Sig: Take 1 tablet by mouth once daily. PLEASE MAIL TO PATIENT'S HOME - PILL FILI pravastatin (PRAVACHOL) 10 mg tablet 90 tablet 1 Sig: Take 1 tablet by mouth once daily. PLEASE MAIL TO PATIENT'S HOME - PILL FILI Christine Stern LPN November 22, 2024 1:36 PM [facility]01-27-[facility] Miscellaneous Notes* Telephone Encounter - Christine Stern LPN - 11/22/2024 1:35 PM EST Prescription Refill Information The patient has been identified by name and date of : Yes Caregiver verified no other encounters exist for this prescription request: Yes Caregiver confirmed with patient/requestor that no other refills are due, in the near future, with this provider at this time: Yes The last office visit in the department: 11/10/24 Does the patient have a future office visit with this provider/department: Yes 01/21/25 Requested Prescriptions Pending Prescriptions Disp Refills amLODIPine (NORVASC) 10 mg tablet 90 tablet 1 Sig: Take 1 tablet by mouth once daily. PLEASE MAIL TO PATIENT;S HOME - PILL FILI furosemide (LASIX) 40 mg tablet 90 tablet 1 Sig: Take 1 tablet by mouth once daily. PLEASE MAIL TO PATIENT;S HOME - PILL FILI lisinopril (ZESTRIL) 40 mg tablet 90 tablet 1 Sig: Take 1 tablet by mouth once daily. PLEASE MAIL TO PATIENT'S HOME - PILL FILI pravastatin (PRAVACHOL) 10 mg tablet 90 tablet 1 Sig: Take 1 tablet by mouth once daily. PLEASE MAIL TO PATIENT'S HOME - PILL FILI Christine Stern LPN November 22, 2024 1:36 PM documented in this encounterOhiohealth [facility]01-15-2025 NoteHNO ID: [id number] Author: SARAH YING MD Service: ? Author Type: Physician Type: Progress Notes Filed: 11/10/2024 18:33 Note Text: [facility] New Patient Evaluation Date: August 11, 2024 Patient Name: Mónica Decker [facility] was asked by Dr. Marmolejo to evaluate Mónica Decker. Our recommendations of care will be communicated by shared medical record. Reason for Evaluation/Chief complaint: memory problems Accompanied by: Brother Gerson SUBJECTIVE: HPI: Mónica Decker is a 74 year old Right handed female who presents to the [facility]. Patient has been seen and referred by Dr. Mateo Marmolejo. Patient has a pertinent PMHx significant for Hypertension, hyperlipidemia , sandra,, hypothyroidism. , gout. 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 08/09/24 Brother and patient noted after her hip surgery 04/19/24,4 months ago, her memory issues started and they are only getting worse. First off she was confused after surgery which did not happen in her previous hip surgery and she had to be in the hospital for 1 week and then to a rehab for 4 weeks. It is only during that time that they started noticing more cognitive issues. Prior to surgery she was unable to walk but now she is able to walk much better. 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 She was able to just inch a couple inches at a time without lifting her legs prior to the surgery. Now after physical therapy she is little better and is able to at least lift herfeet off the floor She has significantly improved after that, and she is slowly getting better. She stopped reading the books she used to. She has no interest in reading the books she used to read. 11/10/23: Patient was seen in follow up, she did not get her MRI brain with quant done. After discussing her options she opted to get it done No changes in short term memory, language and mood since the last time Short-term Memory: Repeats questions/statements: NO Misplacing items around the house: NO Difficulty remembering details of recent conversations within a few hours: NO Difficulty remembering names of familiar people (not family or friends): NO Missed some appointments or major events due to memory changes: NO Language: Word-finding difficulty: YES Fluency: YES Difficulty understanding conversations: NO Difficulty with reading or writing: NO Difficulty with reading comprehension: NO Mood: normal Neurobehavioral symptoms: normal Sleep: normal Parkinsonism: normal REVIEW OF SYSTEMS: Weight change/Appetite: losing weight Hearing: a little decreased Vision: no change Constipation, Diarrhea: no Incontinence: no Chest pain: No Edema: No Dyspnea: No Falls/injuries/accidents: No NEURO: SEE HPI No outside records provided to review. INTERNAL RECORDS: The patient's electronic medical record was reviewed. The relevant details are summarized in this note. Functional Evaluation: B-ADLs: (I=independent,A=assistance,D=dependent) ?Bathing: I , Dressing: I , Toileting: I , Transferring: I , Continence: I , Feeding: I I-ADLs: Transportation: I , Medications: I , Handle Finances: I, she is able to cook, cleans her home, laundry, can use the phone. She does her shopping on her own, except when heavy lifting is involved as she has 24 cats. Then brother helps for helping her get this. OBJECTIVE: PHYSICAL EXAM: Vitals: BP 122/78 Pulse 75 Resp 6 Wt 78.5 kg (173 lb) BMI 33.79 kg/m? General appearance: Sitting upright. Appears stated age. No acute distress. Non-toxic appearing. No hypomimia. Lungs: Clear to auscultation bilaterally Heart: RRR Neuro: Mental Status: Alert, oriented to person, place, and time. Follows commands. Answering questions appropriately. No dysarthria or hypophonia. Luria 3-step task: 3 cycles w/o error bilaterally [place] Cognitive Assessment (MoCA) Gait: Arises independently; normal posture; gait stable with normal stride length, rate, base and arm swing. Delirum exam: she could go back on the months of the year and days of the week with out any hicupps. LABS Hemoglobin A1C Date Value Ref Range Status 07/23/2024 5.3 4.3 - 5.6 % Final Comment: [place] [employer] guidelines indicate that patients with HgbA1c in the range 5.7-6.4% are at increased risk for development of diabetes, and intervention by lifestyle modification may be beneficial. HgbA1c greater or equal to 6.5% is considered diagnostic of diabetes. TSH Date Value Ref Range Status 07/23/2024 0.084 (L) 0.2 (more content not included)...[facility]01-15-[facility] History of Present illness Narrative* Sarah Ying MD - 11/10/2024 1:32 PM EST Images from the original note were not included. [facility] New Patient Evaluation Date: August 11, 2024 Patient Name: Mónica Decker [facility] was asked by Dr. Marmolejo to evaluate Mónica Decker. Our recommendations of care will be communicated by shared medical record. Reason for Evaluation/Chief complaint: memory problems Accompanied by: Brother Gerson SUBJECTIVE: HPI: Mónica Decker is a 74 year old Right handed female who presents to the [facility] for an initial evaluation. Patient has been seen and referred by Dr. Mateo Marmolejo. Patient has a pertinent PMHx significant for Hypertension, hyperlipidemia , sandra,, hypothyroidism. , gout. 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 08/09/24 Brother and patient noted after her hip surgery 04/19/24,4 months ago, her memory issues started andthey are only getting worse. First off she was confused after surgery which did not happen in her previous hip surgery and she had to be in the hospital for 1 week and then to a rehab for 4 weeks. Itis only during that time that they started noticing more cognitive issues. Prior to surgery she was unable to walk but now she is able to walk much better. 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 She was able to just inch a couple inches at a time without lifting her legs prior to the surgery. Now after physical therapy she is little better and is able to at least lift her feet off the floor She has significantly improved after that, and she is slowly getting better. She stopped reading the books she used to. She has no interest in reading the books she used to read. 11/10/23: Patient was seen in follow up, she did not get her MRI brain with quant done. After discussing her options she opted to get it done No changes in short term memory, language and mood since the last time Short-term Memory: Repeats questions/statements: NO Misplacing items around the house: NO Difficulty remembering details of recent conversations within a few hours: NO Difficulty remembering names of familiar people (not family or friends): NO Missed some appointments or major events due to memory changes: NO Language: Word-finding difficulty: YES Fluency: YES Difficulty understanding conversations: NO Difficulty with reading or writing: NO Difficulty with reading comprehension: NO Mood: normal Neurobehavioral symptoms: normal Sleep: normal Parkinsonism: normal REVIEW OF SYSTEMS: Weight change/Appetite: losing weight Hearing: a little decreased Vision: no change Constipation, Diarrhea: no Incontinence: no Chest pain: No Edema: No Dyspnea: No Falls/injuries/accidents: No NEURO: SEE HPI No outside records provided to review. INTERNAL RECORDS: The patient's electronic medical record was reviewed. The relevant details are summarized in this note. Functional Evaluation: B-ADLs: (I=independent,A=assistance,D=dependent) ?Bathing: I , Dressing: I , Toileting: I , Transferring: I , Continence: I , Feeding: I I-ADLs: Transportation: I , Medications: I , Handle Finances: I, she is able to cook, cleans her home, laundry, can use the phone. She does her shopping on her own, except when heavy lifting is involved as she has 24 cats. Then brother helps for helping her get this. OBJECTIVE: PHYSICAL EXAM: Vitals: BP 122/78 Pulse 75 Resp 6 Wt 78.5 kg (173 lb) BMI 33.79 kg/m General appearance: Sitting upright. Appears stated age. No acute distress. Non- toxic appearing. Nohypomimia. Lungs: Clear to auscultation bilaterally Heart: RRR Neuro: Mental Status: Alert, oriented to person, place, and time. Follows commands. Answering questions appropriately. No dysarthria or hypophonia. Luria 3-step task: 3 cycles w/o error bilaterally Woody Cognitive Assessment (MoCA) Gait: Arises independently; normal posture; gait stable with normal stride length, rate, base and arm swing. Delirum exam: she could go back on the months of the year and days of the week with out any hicupps. LABS Hemoglobin A1C Date Value Ref Range Status 07/23/2024 5.3 4.3 - 5.6 % Final Comment: [place] [employer] guidelines indicate that patients with HgbA1c in the range 5.7-6.4% are at increased risk for development of diabetes, and intervention by lifestyle modification may be beneficial. HgbA1c greater or equal to 6.5% is considered diagnostic of diabetes. TSH Date Value Ref Range Status 07/23/2024 0.084 (L) 0.270 - 4.200 mIU/L Final Vitamin B12 Date Value Ref Range Status 07/23/2024 364 232 - 1,245 pg/mL Final Folate Date Value Ref Range Status 07/23/2024 10.9 >4.7 ng/mL Final Plan ASSESSMENT: Ms. Decker is a 74 year old FEMALE . Patient has a pertinent PMHx significant for Hypertension, hyperlipidemia , sandra,, hypothyroidism, gout who is here to discuss about her memory issues after her major hip surgery 4 months ago. Of note the patient was very confused after the surgery and took much longer for recovery than her previous surgery but she is definitely getting met better. Her MMSE scorewas 26/30, her GDS score was 2 on 15. She is fully functional in all her activities of daily livingand her instrumental activities of daily living. The only time she needs help is when there is heavy lifting to be done because she has very difficult time walking She is hard of hearing and would benefit from a hearing test especially because there is a direct link to dementia. She is living by herself supported a little by her brother who lives nearby but shedoes not have too many other family or children or a partner that would help her. MRI of the brain was ordered because we would like to see if she has any propensity to Alzheimer's at which time we will start her on Aricept to give her the best benefit of the medication for her chris independent as much as possible Debrox for excessive wax. Instructions that he was given Although her mobility has improved a little she will benefit from physical therapy which is orderedfor her. PLAN: To pursue the MRI, was given ativan to help be still during the MRI. Regards, Sarah Ying MD * Esther Worrell MA - 11/10/2024 10:58 AM EST Patient presents with her brother. FLYNN 08/11/24 and patient was to follow up after MRI. Pt cancelled her scheduled MRI, because she want to do it. Pt reports she is doing well except for spots anddrips of blood sometimes and sometimes not. From my pelvis to my asshole. That can't be clean with wounds like that and reports that it started after her hip surgery but unable to say who's addressing her sores. Esther Worrell MA documented in this encounter[facility]25 NoteHNO ID: [id number] Author: ESTHER WORRELL MA Service: ? Author Type: Deli Associate Type: Progress Notes Filed: 11/10/2024 18:33 Note Text: Patient presents with her brother. FLYNN 08/11/24 and patient was to follow up after MRI. Pt cancelled her scheduled MRI, because she want to do it. Pt reports she is doing well except for spots and drips of blood sometimes and sometimes not. From my pelvis to my asshole. That can't be clean with wounds like that and reports that it started after her hip surgery but unable to say who's addressing her sores. Esther Worrell, [facility]01-02-2025 NoteHNO ID: [id number] Author: LÓPEZ RANDALL, ? Service: ? Author Type: Physician Type: Progress Notes Filed: 11/01/2024 07:48 Note Text: Subjective: Patient presents to clinic c/o painful toenails. They state that the nails are especially painful with shoe gear and pressure. Patient states that nails 1-5 b/l are painful. No other pedal complaints at this time. Patient states no change in medications or medical history since last visit. Objective: Patient presents to clinic ambulating in [facility] Vasc: DP and PT pulses are faintly palpable bilateral. CFT is less than 5 seconds bilateral. Skin temperature is warm to cool proximal to distal bilateral. There is no edema or varicosities noted. Neuro: Protective sensation is intact to the foot and toes when tested with the 5.07 SWM bilateral. Vibratory sensation is decreased at the hallux IPJ bilateral. The hallux is downgoing bilateral. Derm: Nails 1-5 b/l are painful, discolored-yellow, thick, crumbly, dystrophic and with subungal debris. Skin is of normal turgor, texture and hair growth is present bilateral. There are no hyperkeratosis, ulcerations, scars, verruca or other lesions noted. Ortho: Muscle strength is 5/5 for all pedal groups tested. Ankle joint DF is decreased with the knee extended with no pain or crepitus noted. 1st MPJ ROM is decreased bilateral. Assessment: (B35.1) Onychomycosis (primary encounter diagnosis) (M79.675) Pain in toe of left foot (M79.674) Pain in toe of right foot Plan: Patient was seen and evaluated. Nails 1-5 bilateral were debrided in length and thickness. Patient is to RTC in 3-4 months. [facility] History of Present illness Narrative* López Randall - 10/28/2024 1:58 PM EST Subjective: Patient presents to clinic c/o painful toenails. They state that the nails are especially painful with shoe gear and pressure. Patient states that nails 1-5 b/l are painful. No other pedal complaints at this time. Patient states no change in medications or medical history since last visit. Objective: [facility] Vasc: DP and PT pulses are faintly palpable bilateral. CFT is less than 5 seconds bilateral. Skin temperature is warm to cool proximal to distal bilateral. There is no edema or varicosities noted. Neuro: Protective sensation is intact to the foot and toes when tested with the 5.07 SWM bilateral.Vibratory sensation is decreased at the hallux IPJ bilateral. The hallux is downgoing bilateral. Derm: Nails 1-5 b/l are painful, discolored-yellow, thick, crumbly, dystrophic and with subungal debris. Skin is of normal turgor, texture and hair growth is present bilateral. There are no hyperkeratosis, ulcerations, scars, verruca or other lesions noted. Ortho: Muscle strength is 5/5 for all pedal groups tested. Ankle joint DF is decreased with the knee extended with no pain or crepitus noted. 1st MPJ ROM is decreased bilateral. Assessment: (B35.1) Onychomycosis (primary encounter diagnosis) (M79.675) Pain in toe of left foot (M79.674) Pain in toe of right foot Plan: Patient was seen and evaluated. Nails 1-5 bilateral were debrided in length and thickness. Patient is to RTC in 3-4 months. López Randall DPM documented in this encounterOhio[facility]12-[facility]24 Telephone encounter Note * Telephone Encounter - Zieja Daisy Valdovinos - 10/06/2024 10:56 AM EST Patients brother calling stating that she is going to have dental work on 10/11/24 and she will need antibiotics. Please send script to [facility] in [place]. [facility] Miscellaneous Notes* Telephone Encounter - Daisy Morales - 10/06/2024 10:56 AM EST Patients brother calling stating that she is going to have dental work on 10/11/24 and she will need antibiotics. Please send script to [facility] in [place]. documented in this encounterOhio[facility]11-19-2024 NoteHNO ID: [id number] Author: NELSON AMADO PT Service: ? Author Type: Physical Therapist Type: Progress Notes Filed: 09/14/2024 14:17 Note Text: Episode Visit Count: 2 Therapist That Will Accept/Oversee The Plan Of Care: Nelson Amado PT Start of Care Date: 08/31/24 Onset Date: 04/19/24 Plan of Care Certification Date: 08/31/24 Next Certification Due Date: 10/05/24 Patient Identified by Name and Date of : Yes REHABILITATION AND SPORTS THERAPY PHYSICAL THERAPY TREATMENT NOTE ASSESSMENT: Mónica Decker tolerated the session with expected muscle soreness. She demonstrated continued limitation in knee flexion and extension ROM. The patient will continue to benefit from ongoing skilled physical therapy to progress toward set goals. PLAN FOR NEXT VISIT: Continue with knee flexion and extension stretching SUBJECTIVE: The right knee is sore today. 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 Pain: Pain Pain Level: (mild) Pain Location: Leg - Right OBJECTIVE MEASURES WITH LEVEL OF FUNCTION: TREATMENT: Therapeutic Exercise: 1: Knee flexion stretch sliding heel under chair x 30 sec BLE 2: Knee ext stretch in chair x 10 BLE 3: Standing HS stretch on syep x 10 each leg 4: Supine knee ext stretch towel roll under heels x 5: Standing knee flexion stretch on step at parallel bars 2 x 10 each leg Skilled Intervention: Patient was educated in proper exercise technique and purpose for exercises. Correct performance of therapeutic exercises was facilitated with verbal and visual cuing. Billing Therapeutic Exercise Treatment Minutes: 40 Skilled Treatment Time Minutes (timed and untimed codes): 40 Total Session Time (minutes): 40 Session Start Time : 1331 Session Stop Time : 1411 Nelson Amado [facility]11-19-[facility] History of Present illness Narrative* Nelson Amado PT - 09/14/2024 1:32 PM EST Episode Visit Count: 2 Therapist That Will Accept/Oversee The Plan Of Care: Nelson Amado PT Start of Care Date: 08/31/24 Onset Date: 04/19/24 Plan of Care Certification Date: 08/31/24 Next Certification Due Date: 10/05/24 Patient Identified by Name and Date of : Yes REHABILITATION AND SPORTS THERAPY PHYSICAL THERAPY TREATMENT NOTE ASSESSMENT: Mónica Decker tolerated the session with expected muscle soreness. She demonstrated continued limitation in knee flexion and extension ROM. The patient will continue to benefit from ongoing skilled physical therapy to progress toward set goals. PLAN FOR NEXT VISIT: Continue with knee flexion and extension stretching SUBJECTIVE: The right knee is sore today. 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 Pain: Pain Pain Level: (mild) Pain Location: Leg - Right OBJECTIVE MEASURES WITH LEVEL OF FUNCTION: TREATMENT: Therapeutic Exercise: 1: Knee flexion stretch sliding heel under chair x 30 sec BLE 2: Knee ext stretch in chair x 10 BLE 3: Standing HS stretch on syep x 10 each leg 4: Supine knee ext stretch towel roll under heels x 5: Standing knee flexion stretch on step at parallel bars 2 x 10 each leg Skilled Intervention: Patient was educated in proper exercise technique and purpose for exercises. Correct performance of therapeutic exercises was facilitated with verbal and visual cuing. Billing Therapeutic Exercise Treatment Minutes: 40 Skilled Treatment Time Minutes (timed and untimed codes): 40 Total Session Time (minutes): 40 Session Start Time : 1331 Session Stop Time : 1411 Nelson Amado PT documented in this encounterOhio[facility]11-14-2024 NoteHNO ID: [id number] Author: KELVIN DIETRICH LPN Service: ? Author Type: LICENSED NURSE Type: Progress Notes Filed: 09/09/2024 07:48 Note Text: Scan on 09/08/2024 1:33 PM by ProviderMarianna PA-C: [facility] History of Present illness Narrative* Kelvin Dietrich LPN - 09/09/2024 7:47 AM EST Scan on 09/08/2024 1:33 PM by Provider, LIZY Cabral: Ultrasound documented in this encounterOhio[facility]11-05-2024 History of Present illness Narrative* Nelson Amado PT - 08/31/2024 10:56 AM EST Program_ID:[id number] Access Code: [email or web address] URL: [email or web address] Date: 08-31-2024 Prepared By: Nelson Amado Program Notes Exercises - Supine Heel Slide with Strap - 1 x daily - 7 x weekly - 4 sets - 10 reps - Supine Heel Slide with Strap - 1 x daily - 7 x weekly - 4 sets - 10 reps - Supine Knee Extension Stretch on Towel Roll - 1 x daily - 7 x weekly - 4 sets - 10 reps - Supine Knee Extension Stretch on Towel Roll - 1 x daily - 7 x weekly - 4 sets - 10 reps * Nelson Amado PT - 08/31/2024 10:16 AM EST Episode Visit Count: 1 Therapist That Will Accept/Oversee The Plan Of Care: Nelson Amado PT Start of Care Date: 08/31/24 Onset Date: 04/19/24 Plan of Care Certification Date: 08/31/24 Next Certification Due Date: 10/05/24 Patient Identified by Name and Date of : Yes REHABILITATION AND SPORTS THERAPY PHYSICAL THERAPY EVALUATION PLAN OF CARE: Assessment: Mónica Decker presents with chief complaint of leg weakness that interferes with stair negotiation . The patient presents with impairments in gait, overall function, range of motion, and strength. Patient did not complete the PROMIS (Patient Reported Outcome Measures Information System).Prognosis for therapy is Good due to: current objective clinical presentation . The patient will benefit from skilled therapy services to meet the goals established for this plan of care as noted below. Goals for Episode of Care: established 08/31/24 PT will demo improvement in knee flexion and extension by 15 degrees or greater to improve gait quality and greater ease of stair negotiation [place] in home exercise program. Perform walking and chores with decreased reports of pain in 8 weeks or less Patient Goals: Outlive my animals Time Frame for Goals and Treatment : 10/26/24 Planned Interventions, Frequency, and Duration: Current Frequency: 1x/week Duration: 4 weeks Total Number of Visits Planned: 4 Planned Treatment Interventions: Therapeutic exercise (36669), Neuromuscular re- education (13496), Manual therapy (51357), Therapeutic activities (77765), Self- jail management (05650), Patient/Family/Caregiver Education, Gait Training (22487) PLAN FOR NEXT VISIT: Work on improving knee ROM bilaterally Patient demonstrates good understanding of plan of care and treatment. The above goals and plan of care were discussed and agreed upon by patient/family. SUBJECTIVE: Gait. History of B COTY. Did have to go to an inpatient facility for some time. No falls lately. Hasa ramp for the house with a banister. Goes down the stairs one step at a time. Worked in the [employer] for 25 years. The knees are worn and do not straighten and the elbows on both sides have been fractured and will not straighten. Having memory issues and blames the last hip surgery. Patient Goals: Outlive my animals Functional Limitations: stair negotiation Prior Level of Function: Independent without limitations Intake Information: Prescription present Falls History # of falls in past year: 0 Pain: Pain Pain Level: 0 Pain Location: Hip - Right, Hip - Left PROMIS Scales T-scores: mean of general population = 50. 5 points is clinically meaningfully difference Percentiles provide an indication of how the patient's score ranks in relation to the general population. Higher percentile rankings indicate better function/quality of life. 50th percentile is the average of the general population and indicates half of respondents had a worse score. OBJECTIVE MEASURES WITH LEVEL OF FUNCTION: LE AROM R Hip Flexion: 94 Degrees R Knee Extension: -31 Degrees R Knee Flexion: 80 Degrees L Hip Flexion: 94 Degrees L Knee Extension: 32 Degrees L Knee Flexion: 90 Degrees LE Strength R Hip Extension: 4/5 L Hip Extension: 4/5 Gait Gait: Modified Independent Gait Distance (feet): 25 Gait Device: Cane Gait Deviations: Right Lower Extremity, Left Lower Extremity, General Deviations Gait Deviations Right Lower Extremity: Lacks full knee extension during terminal swing, Stance timedecreased, Step length decreased Gait Deviations Left Lower Extremity: Lacks full knee extension during terminal swing, Stance time decreased, Step length decreased General Deviations/Observations: Flexed trunk posture Functional Performance Test Results 30 Second Chair Stand Test: 14 reps Education: Education Learning Preferences: Demonstration, Explanation, Performance, Printed Materials Barriers: None Learning/educational needs: Home exercise program, Plan of Care, Changes in Plan of Care Education Provided: Yes, see treatment interventions for education provided Education Provided To: Patient Education Mode/Type: Demonstration, Explanation/Discussion, Literature/Printed Materials, Performance Response to Education/Teach Back: States/Identifies, Return Demonstration TREATMENT: PT Treatment Interventions: Therapeutic Exercise Evaluation Therapeutic Exercise: 1: Discussed exam findings, purpose of the HEP and the HEP handout was provided to the pt. HEP discussed in detail with how to safely and properly perform each therapeutic exercise. 2: Supine heel slides with strap RLE x 10 3: Supine heel slides LLE with strap x 10 4: Supine knee ext stretch towel roll under ankle x 10 RLE 5: Supine knee ext stretch towel roll under ankle x 10 LLE Skilled Intervention: Patient was educated in proper exercise technique and purpose for exercises. Correct performance of therapeutic exercises was facilitated with verbal and visual cuing. Billing * Evaluation Low Complexity: 1 Unit Therapeutic Exercise Treatment Minutes: 23 Skilled Treatment Time Minutes (timed and untimed codes): 44 Total Session Time (minutes): 44 Session Start Time : 1016 Session Stop Time : 1100 Nelson Amado PT documented in this encounterOhio[facility]11-05-2024 NoteHNO ID: [id number] Author: NELSON AMADO PT Service: ? Author Type: Physical Therapist Type: Progress Notes Filed: 08/31/2024 12:16 Note Text: Episode Visit Count: 1 Therapist That Will Accept/Oversee The Plan Of Care: Nelson Amado PT Start of Care Date: 08/31/24 Onset Date: 04/19/24 Plan of Care Certification Date: 08/31/24 Next Certification Due Date: 10/05/24 Patient Identified by Name and Date of : Yes REHABILITATION AND SPORTS THERAPY PHYSICAL THERAPY EVALUATION PLAN OF CARE: Assessment: Mónica Decker presents with chief complaint of leg weakness that interferes with stair negotiation . The patient presents with impairments in gait, overall function, range of motion, and strength. Patient did not complete the PROMIS? (Patient Reported Outcome Measures Information System). Prognosis for therapy is Good due to: current objective clinical presentation . The patient will benefit from skilled therapy services to meet the goals established for this plan of care as noted below. Goals for Episode of Care: established 08/31/24 PT will demo improvement in knee flexion and extension by 15 degrees or greater to improve gait quality and greater ease of stair negotiation [place] in home exercise program. Perform walking and chores with decreased reports of pain in 8 weeks or less Patient Goals: Outlive my animals Time Frame for Goals and Treatment : 10/26/24 Planned Interventions, Frequency, and Duration: Current Frequency: 1x/week Duration: 4 weeks Total Number of Visits Planned: 4 Planned Treatment Interventions: Therapeutic exercise (28421), Neuromuscular re-education (58755), Manual therapy (20968), Therapeutic activities (49999), Self-jail management (83618), Patient/Family/Caregiver Education, Gait Training (50368) PLAN FOR NEXT VISIT: Work on improving knee ROM bilaterally Patient demonstrates good understanding of plan of care and treatment. The above goals and plan of care were discussed and agreed upon by patient/family. SUBJECTIVE: Gait. History of B COTY. Did have to go to an inpatient facility for some time. No falls lately. Has a ramp for the house with a banister. Goes down the stairs one step at a time. Worked in the [employer] for 25 years. The knees are worn and do not straighten and the elbows on both sides have been fractured and will not straighten. Having memory issues and blames the last hip surgery. Patient Goals: Outlive my animals Functional Limitations: stair negotiation Prior Level of Function: Independent without limitations Intake Information: Prescription present Falls History # of falls in past year: 0 Pain: Pain Pain Level: 0 Pain Location: Hip - Right, Hip - Left PROMIS Scales T-scores: mean of general population = 50. 5 points is clinically meaningfully difference Percentiles provide an indication of how the patient's score ranks in relation to the general population. Higher percentile rankings indicate better function/quality of life. 50th percentile is the average of the general population and indicates half of respondents had a worse score. OBJECTIVE MEASURES WITH LEVEL OF FUNCTION: LE AROM R Hip Flexion: 94 Degrees R Knee Extension: -31 Degrees R Knee Flexion: 80 Degrees L Hip Flexion: 94 Degrees L Knee Extension: 32 Degrees L Knee Flexion: 90 Degrees LE Strength R Hip Extension: 4/5 L Hip Extension: 4/5 Gait Gait: Modified Independent Gait Distance (feet): 25 Gait Device: Cane Gait Deviations: Right Lower Extremity, Left Lower Extremity, General Deviations Gait Deviations Right Lower Extremity: Lacks full knee extension during terminal swing, Stance time decreased, Step length decreased Gait Deviations Left Lower Extremity: Lacks full knee extension during terminal swing, Stance time decreased, Step length decreased General Deviations/Observations: Flexed trunk posture Functional Performance Test Results 30 Second Chair Stand Test: 14 reps Education: Education Learning Preferences: Demonstration, Explanation, Performance, Printed Materials Barriers: None Learning/educational needs: Home exercise program, Plan of Care, Changes in Plan of Care Education Provided: Yes, see treatment interventions for education provided Education Provided To: Patient Education Mode/Type: Demonstration, Explanation/Discussion, Literature/Printed Materials, Performance Response to Education/Teach Back: States/Identifies, Return Demonstration TREATMENT: PT Treatment Interventions: Therapeutic Exercise Evaluation Therapeutic Exercise: 1: Discussed exam findings, purpose of the HEP and the HEP handout was provided to the pt. HEP discussed in detail with how to safely and properly perform each therapeutic exercise. 2: Supine heel slides with strap RLE x 10 3: Supine heel slides LLE with strap x 10 4: Supine knee ext stretch towel roll under ankle x 10 RLE 5: Supine knee ex (more content not included)...[facility] 08-16-2024 NoteHNO ID: [id number] Author: JIA PATINO OD Service: ? Author Type: PLAY LEADER Type: Progress Notes Filed: 08/16/2024 09:27 Note Text: 1. Combined forms of age-related cataract of both eyes Visually significant OD>OS Educated pt on condition that would be improved with cataract surgery- patient not interested at this time since happy with vision left eye 2. Posterior vitreous detachment of both eyes Stable- monitor 3. 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 Combined forms of age-related cataract of both eyes Visually significant OD>OS Educated pt on condition that would be improved with cataract surgery- patient not interested at this time since happy with vision left eye 2. Posterior vitreous detachment of both eyes Stable- monitor 3. 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 Get the mri done Take vit b12 1000 mcg daily Get back on the old vitamins you were taking Get the hearing test Use the debrox ear drops every month for 4 days to dissolve the wax in your ears Follow up 2 months documented in this encounterOhio[facility]10-16-2024 NoteHNO ID: [id number] Author: SARAH YING MD Service: ? Author Type: Physician Type: Progress Notes Filed: 08/11/2024 18:22 Note Text: [facility] New Patient Evaluation Date: August 11, 2024 Patient Name: Mónica Decker [facility] was asked by Dr. Marmolejo to evaluate Mónica Hernandez Brianne. Our recommendations of care will be communicated by shared medical record. Reason for Evaluation/Chief complaint: memory problems Accompanied by: Brother Gerson SUBJECTIVE: HPI: Mónica Decker is a 74 year old Right handed female who [facility] for an initial [facility]. Patient has been seen and referred by Dr. Mateo Marmolejo. Patient has a pertinent PMHx significant for Hypertension, hyperlipidemia , sandra,, hypothyroidism. , gout. 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 Today's visit: Brother and patient noted after her hip surgery 04/19/24,4 months ago, her memory issues started and they are only getting worse. First off she was confused after surgery which did not happen in her previous hip surgery and she had to be in the hospital for 1 week and then to a rehab for 4 weeks. It is only during that time that they started noticing more cognitive issues. Prior to surgery she was unable to walk but now she is able to walk much better. 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 She was able to just inch a couple inches at a time without lifting her legs prior to the surgery. Now after physical therapy she is little better and is able to at least lift herfeet off the floor She has significantly improved after that, and she is slowly getting better. She stopped reading the books she used to. She has no interest in reading the books she used to read. Short-term Memory: Repeats questions/statements: NO Misplacing items around the house: NO Difficulty remembering details of recent conversations within a few hours: NO Difficulty remembering names of familiar people (not family or friends): NO Missed some appointments or major events due to memory changes: NO Language: Word-finding difficulty: YES Fluency: YES Difficulty understanding conversations: NO Difficulty with reading or writing: NO Difficulty with reading comprehension: NO Mood: normal Neurobehavioral symptoms: normal Sleep: normal Parkinsonism: normal REVIEW OF SYSTEMS: Weight change/Appetite: losing weight Hearing: a little decreased Vision: no change Constipation, Diarrhea: no Incontinence: no Chest pain: No Edema: No Dyspnea: No Falls/injuries/accidents: No NEURO: SEE HPI OUTPATIENT MEDICATIONS Current Outpatient Medications on File Prior to Visit Medication Sig allopurinol (ZYLOPRIM) 300 mg tablet Take 1 tablet by mouth once daily. For gout. levothyroxine (LEVOXYL) 150 mcg tablet Take 1 tablet by mouth once daily. Mon-Fri and none on Friday. PLEASE MAIL TO PATIENT'S HOME - PILL FILI potassium chloride 20 mEq TbER Take 1 tablet by mouth once daily. cyanocobalamin (VITAMIN B-12) 500 mcg tablet Take 1 tablet by mouth once daily. amLODIPine (NORVASC) 10 mg tablet Take 1 tablet by mouth once daily. PLEASE MAIL TO PATIENT;S HOME - PILL FILI furosemide (LASIX) 40 mg tablet Take 1 tablet by mouth once daily. PLEASE MAIL TO PATIENT;S HOME - PILL FILI lisinopril (ZESTRIL) 40 mg tablet Take 1 tablet by mouth once daily. PLEASE MAIL TO PATIENT'S HOME - PILL FILI pravastatin (PRAVACHOL) 10 mg tablet Take 1 tablet by mouth once daily. PLEASE MAIL TO PATIENT'S HOME - PILL FILI Cholecalciferol, Vitamin D3, (VITAMIN D-3) 50 mcg (2,000 unit) cap Take 1 capsule by mouth once daily. acetaminophen (TYLENOL) 500 mg tablet Take 2 tablets by mouth every 8 hours as needed for pain. polyethylene glycol 3350 17 gram packet Take 1 Packet by mouth once daily. Dissolve dose in 4 - 8 ounces of liquid and take as directed. amoxicillin (AMOXIL) 500 mg capsule Please take 4 capsules by mouth 1 (one) hour prior to your dental appointment. No current facility-administered medications on file prior to visit. MEDICAL HISTORY PAST MEDICAL HISTORY Diagnosis Date 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 01/24/2021 Adenomatous colon polyp Allergic rhinitis 07/08/2005 Bilateral hip pain 06/05/2023 Dystrophic nail 01/24/2021 multiple bilateral toes. Elevated hemoglobin A1c 08/27/2018 Essential hypertension, benign 07/08/2005 Fracture left forearm and right radial head Hammer toes of both feet 01/24/2021 Hyperlipidemia, mixed 02/05/2018 As of 02/05/18 patient declines statin therapy. Low vitamin B12 level (more content not included)...[facility]10-16-2024 History of Present illness Narrative* Sarah Ying MD - 08/11/2024 10:28 AM EDT Images from the original note were not included. [facility] New Patient Evaluation Date: August 11, 2024 Patient Name: Mónica Decker [facility] was asked by Dr. Marmolejo to evaluate Mónica Decker. Our recommendations of care will be communicated by shared medical record. Reason for Evaluation/Chief complaint: memory problems Accompanied by: Brother Ross SUBJECTIVE: HPI: Mónica Decker is a 74 year old Right handed female who presents to the [place] [facility] for an initial evaluation. Patient has been seen and referred by Dr. Mateo Marmolejo. Patient has a pertinent PMHx significant for Hypertension, hyperlipidemia , sandra,, hypothyroidism. , gout. 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 Today's visit: Brother and patient noted after her hip surgery 04/19/24,4 months ago, her memory issues started andthey are only getting worse. First off she was confused after surgery which did not happen in her previous hip surgery and she had to be in the hospital for 1 week and then to a rehab for 4 weeks. Itis only during that time that they started noticing more cognitive issues. Prior to surgery she was unable to walk but now she is able to walk much better. 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 She was able to just inch a couple inches at a time without lifting her legs prior to the surgery. Now after physical therapy she is little better and is able to at least lift her feet off the floor She has significantly improved after that, and she is slowly getting better. She stopped reading the books she used to. She has no interest in reading the books she used to read. Short-term Memory: Repeats questions/statements: NO Misplacing items around the house: NO Difficulty remembering details of recent conversations within a few hours: NO Difficulty remembering names of familiar people (not family or friends): NO Missed some appointments or major events due to memory changes: NO Language: Word-finding difficulty: YES Fluency: YES Difficulty understanding conversations: NO Difficulty with reading or writing: NO Difficulty with reading comprehension: NO Mood: normal Neurobehavioral symptoms: normal Sleep: normal Parkinsonism: normal REVIEW OF SYSTEMS: Weight change/Appetite: losing weight Hearing: a little decreased Vision: no change Constipation, Diarrhea: no Incontinence: no Chest pain: No Edema: No Dyspnea: No Falls/injuries/accidents: No NEURO: SEE HPI OUTPATIENT MEDICATIONS Current Outpatient Medications on File Prior to Visit Medication Sig allopurinol (ZYLOPRIM) 300 mg tablet Take 1 tablet by mouth once daily. For gout. levothyroxine (LEVOXYL) 150 mcg tablet Take 1 tablet by mouth once daily. Mon- Sat and none on Friday. PLEASE MAIL TO PATIENT'S HOME - PILL FILI potassium chloride 20 mEq TbER Take 1 tablet by mouth once daily. cyanocobalamin (VITAMIN B-12) 500 mcg tablet Take 1 tablet by mouth once daily. amLODIPine (NORVASC) 10 mg tablet Take 1 tablet by mouth once daily. PLEASE MAIL TO PATIENT;S HOME - PILL FILI furosemide (LASIX) 40 mg tablet Take 1 tablet by mouth once daily. PLEASE MAIL TO PATIENT;S HOME - PILL FILI lisinopril (ZESTRIL) 40 mg tablet Take 1 tablet by mouth once daily. PLEASE MAIL TO PATIENT'S HOME - PILL FILI pravastatin (PRAVACHOL) 10 mg tablet Take 1 tablet by mouth once daily. PLEASE MAIL TO PATIENT'S HOME - PILL FILI Cholecalciferol, Vitamin D3, (VITAMIN D-3) 50 mcg (2,000 unit) cap Take 1 capsule by mouth once daily. acetaminophen (TYLENOL) 500 mg tablet Take 2 tablets by mouth every 8 hours as needed for pain. polyethylene glycol 3350 17 gram packet Take 1 Packet by mouth once daily. Dissolve dose in 4 - 8 ounces of liquid and take as directed. amoxicillin (AMOXIL) 500 mg capsule Please take 4 capsules by mouth 1 (one) hour prior to your dental appointment. No current facility-administered medications on file prior to visit. MEDICAL HISTORY PAST MEDICAL HISTORY Diagnosis Date 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 01/24/2021 Adenomatous colon polyp Allergic rhinitis 07/08/2005 Bilateral hip pain 06/05/2023 Dystrophic nail 01/24/2021 multiple bilateral toes. Elevated hemoglobin A1c 08/27/2018 Essential hypertension, benign 07/08/2005 Fracture left forearm and right radial head Hammer toes of both feet 01/24/2021 Hyperlipidemia, mixed 02/05/2018 As of 02/05/18 patient declines statin therapy. Low vitamin B12 level 07/26/2024 Medicare annual wellness visit, subsequent 08/27/2018 Medicare part B: 02/24/2014 last done: 08/27/2019 Morbid (severe) obesity due to excess calories (HCC) 02/06/2006 OAB (overactive bladder) 12/19/2020 Declines medication as of 12/19/20 Obesity, Class II, BMI 35-39.9 02/19/2021 SANDRA (obstructive sleep apnea) 07/08/2005 Had corrective surgery Personal history of colonic polyps 03/14/2016 Postsurgical hypothyroidism 09/04/2005 Primary osteoarthritis of both hips 06/20/2015 Primary osteoarthritis of both knees 06/20/2015 Primary osteoarthritis of right hip 07/30/2023 S/P total left hip arthroplasty 04/22/2024 S/P total right hip arthroplasty 06/26/2023 SURGICAL HISTORY PAST SURGICAL HISTORY Procedure Laterality Date AMPUTATION TOE,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 ARTHROSCOPY KNEE DIAGNOSTIC W/WO SYNOVIAL BX SPX Arthroscopy, knee COLONOSCOPY 05/30/2022 Tubular Adenoma-repeat in 3 years COLONOSCOPY FLX DX W/COLLJ SPEC WHEN PFRMD years ago Colonoscopy COLONOSCOPY FLX DX W/COLLJ SPEC WHEN PFRMD 10/13/2013 Colonoscopy COLONOSCOPY FLX DX W/COLLJ SPEC WHEN PFRMD 03/14/2016 Colonoscopy COLONOSCOPY FLX DX W/COLLJ SPEC WHEN PFRMD 11/09/2018 Colonoscopy COLSC FLX W/RMVL OF TUMOR POLYP LESION SNARE TQ 06/15/2010 PAST SURGICAL HISTORY OF 1960 bladder surgery to enlarge opening PAST SURGICAL HISTORY OF uvulectomy for SANDRA SIGMOIDOSCOPY FLX DX W/COLLJ SPEC BR/WA IF PFRMD 12/06/2013 Sigmoidoscopy, flexible THYROIDECTOMY TOTAL/COMPLETE 2004 TOTAL HIP REPLACEMENT Right 06/25/2023 TOTAL HIP REPLACEMENT Left 04/21/2024 SOCIAL HISTORY Social History Tobacco Use Smoking status: Never Smokeless tobacco: Never Tobacco comments: Mom used to smoke, quit 2011 Vaping Use Vaping status: Never Used Substance Use Topics Alcohol use: No Drug use: No -No tobacco. No significant alcohol abuse. No history of substance abuse. -Marital status: -Advanced directives/POA: FAMILY HISTORY FAMILY HISTORY Problem Relation Age of Onset Hypertension Mother Dementia Mother Heart Father fluid on heart Glaucoma Father Colon Cancer Father Stroke Brother Strabismus Brother Detached Retina Brother No known family history of dementia. ALLERGIES ALLERGIES Allergen Reactions Latex Unknown OUTSIDE RECORDS: No outside records provided to review. INTERNAL RECORDS: The patient's electronic medical record was reviewed. The relevant details are summarized in this note. Functional Evaluation: B-ADLs: (I=independent,A=assistance,D=dependent) ?Bathing: I , Dressing: I , Toileting: I , Transferring: I , Continence: I , Feeding: I I-ADLs: Transportation: I , Medications: I , Handle Finances: I, she is able to cook, cleans her home, laundry, can use the phone. She does her shopping on her own, except when heavy lifting is involved as she has 24 cats. Then brother helps for helping her get this. OBJECTIVE: PHYSICAL EXAM: Vitals: BP 128/60 Pulse 67 Resp 16 Ht 152.4 cm (5') Wt 79.4 kg (175 lb) BMI 34.18 kg/m General appearance: Sitting upright. Appears stated age. No acute distress. Non- toxic appearing. Nohypomimia. Lungs: Clear to auscultation bilaterally Heart: RRR Neuro: Mental Status: Alert, oriented to person, place, and time. Follows commands. Answering questions appropriately. No dysarthria or hypophonia. Luria 3-step task: 3 cycles w/o error bilaterally Woody Cognitive Assessment (MoCA) Cranial Nerves: EOMI CN VII: Face symmetric, no ptosis or facial droop CN VIII: Auditory acuity intact CN IX/CN X: Normal palate elevation CN XI: Normal shoulder shrug CN XII: Normal tongue strength and range of motion; no deviation Ears: R TM - clear with good landmarks, nl light reflex, L TM -patient had soft wax which was covering the entire TM Motor Exam: No cog-wheeling. No rest tremor. No significant postural or intention tremor. No bradykinesia with finger tapping bilaterally. No abnormal movements, jerks. Strength 5/5 in UE's bilaterally. LE's 5/5 throughout as well. Sensory: Intact to light touch in all extremities. Pinprick, vibration, and proprioception not assessed. Coordination: FNF with no ataxia or dysmetria. Gait: Arises independently; normal posture; gait stable with normal stride length, rate, base and arm swing. LABS Hemoglobin A1C Date Value Ref Range Status 07/23/2024 5.3 4.3 - 5.6 % Final Comment: [place] [employer] guidelines indicate that patients with HgbA1c in the range 5.7-6.4% are at increased risk for development of diabetes, and intervention by lifestyle modification may be beneficial. HgbA1c greater or equal to 6.5% is considered diagnostic of diabetes. TSH Date Value Ref Range Status 07/23/2024 0.084 (L) 0.270 - 4.200 mIU/L Final Vitamin B12 Date Value Ref Range Status 07/23/2024 364 232 - 1,245 pg/mL Final Folate Date Value Ref Range Status 07/23/2024 10.9 >4.7 ng/mL Final Plan ASSESSMENT: Ms. Decker is a 74 year old FEMALE . Patient has a pertinent PMHx significant for Hypertension, hyperlipidemia , sandra,, hypothyroidism, gout who is here to discuss about her memory issues after her major hip surgery 4 months ago. Of note the patient was very confused after the surgery and took much longer for recovery than her previous surgery but she is definitely getting met better. Her MMSE scorewas 26/30, her GDS score was 2 on 15. She is fully functional in all her activities of daily livingand her instrumental activities of daily living. The only time she needs help is when there is heavy lifting to be done because she has very difficult time walking She is hard of hearing and would benefit from a hearing test especially because there is a direct link to dementia. She is living by herself supported a little by her brother who lives nearby but shedoes not have too many other family or children or a partner that would help her. MRI of the brain was ordered because we would like to see if she has any propensity to Alzheimer's at which time we will start her on Aricept to give her the best benefit of the medication for her chris independent as much as possible Debrox for excessive wax. Instructions that he was given Although her mobility has improved a little she will benefit from physical therapy which is orderedfor her. PLAN: Labs: CBC, CMP, TSH, B12 Will plan for MRI brain with volumetrics to assess for signs of neurodegeneration and/or significant vascular disease General brain health measures discussed, including the importance of regular aerobic exercise Follow up after testing is complete I spent a total of 68 minutes minutes on the date of the service which included preparing to see the patient, [id number] patient care, completing clinical documentation, performing a medically appropriate examination, and ordering medications, tests, or procedures. Voice recognition software was used to compose this office note. Please excuse any unintended typographical errors. Sarah Ying MD [facility] 08/11/2024 10:28 AM CC: Referring Physician: Mateo Marmolejo [id number] [facility] [id number] PCP: Mateo Marmolejo [facility] [place] [address] Patient Entered Data: Patient-Reported No data to display Activities of Daily Living (ADL) No data to display PROMIS-10 No data to display PHQ-9 07/23/2024 02/14/2022 PHQ-9 All Questions Little interest or pleasure in doing things 0 2 Feeling down, depressed, or hopeless 1 2 Trouble falling or staying asleep, or sleeping too much 2 Feeling tired or having little energy 2 Poor appetite or overeating 0 Feeling bad about yourself - or that you are a failure or have let yourself or your family down 0 Trouble concentrating on things, such as reading the newspaper or watching television 0 Moving or speaking so slowly that other people could have noticed. Or the opposite - being so fidgety or restless that you have been moving around a lot more than usual 0 Thoughts that you would be better off , or of hurting yourself in some way 0 PHQ-9 Score 8 (0-4) minimal depression (5-9) mild depression (10-14) moderate depression (15-19) moderately severe depression (20-27) severe depression Full History of PHQ-9 Scores PHQ-9 Score 02/14/2022 8 Sleep No data to display No data to display Caregiver-Reported No data to display Dementia Severity Rating Scale (DSRS) No data to display documented in this encounter[facility] Nurse Note* Esther Worrell MA - 08/11/2024 9:53 AM EDT Patient states, I don't want to go anywhere. I want to be home with my cats at the beginning of today's office visit. Ensured her that we are here to help her. Patient calm and thankful. Patient reports that she can tell a difference in memory since last hip surgery - memory is effed up now. Relates memory to that. Had issues with balancing checkbook after last surgery and brother had to resume financials. Patient is now able to do, my cats help me - breath over my shoulder Esther Worrell MA [facility] Nurse Note* Esther Worrell MA - 08/11/2024 9:53 AM EDT Patient states, I don't want to go anywhere. I want to be home with my cats at the beginning of today's office visit. Ensured her that we are here to help her. Patient calm and thankful. Patient reports that she can tell a difference in memory since last hip surgery - memory is effed up now. Relates memory to that. Had issues with balancing checkbook after last surgery and brother had to resume financials. Patient is now able to do, my cats help me - breath over my shoulder Esther Worrell MA documented in this encounterOhio[facility]10-14-2024 Telephone encounter Note * Telephone Encounter - Mateo Marmolejo MD - 08/09/2024 11:55 AM EDT Noted. [facility] Miscellaneous Notes* Telephone Encounter - Mateo Marmolejo MD - 08/09/2024 11:55 AM EDT Noted. * Telephone Encounter - Taurus Chang MA - 08/09/2024 9:23 AM EDT Spoke with patient and let her know that we had left several messages and that she should take the antibiotic. She had not taken it yet. Patient also did have her wound appointment yesterday. She said she had not heard from the Urology office but I gave patient name and number and let her know if she didn't hear from to call tomorrow. Taurus Chang MA * Telephone Encounter - Erma Frias LPN - 08/06/2024 8:59 AM EDT Left a message for pt to call the office and ask to speak to a nurse. Erma Frias LPN * Telephone Encounter - Erma Frias LPN - 08/04/2024 3:24 PM EDT Tried to reach pt by phone she answered but could not hear me and when I tried to call back her line is ringing busy. Try later. Erma Frias LPN * Telephone Encounter - Taurus Chang MA - 08/04/2024 2:46 PM EDT Faxed info to Dr. Ochoa. Taurus Chang MA * Telephone Encounter - Mateo Marmolejo MD - 08/04/2024 2:40 PM EDT Advise patient it's ok to take the antibiotic. * Telephone Encounter - Erma Frias LPN - 08/04/2024 2:20 PM EDT Pt called in and message below regarding referral was given. Pt thought that [facility] was going to call them. She will call to get apt. Pt reports she just picked up the ATB and pt is asking if okay to take with all her other medications. Please advise pt. Erma Frias LPN * Telephone Encounter - Monty Minor RN - 07/28/2024 4:44 PM EDT Left vm for patient to return call to nurse for provider's message. * Telephone Encounter - Mateo Marmolejo MD - 07/28/2024 2:50 PM EDT Let Mónica know that the last time she was in I send danae script for an antibiotic and placed a referral for her to see [facility] wound center. Does she have an appt with them? I just placed a consult for her to see Urology, Dr. Ochoa in [place] for her incontinence and overactive bladder. * Telephone Encounter - Taurus Chang MA - 07/28/2024 10:48 AM EDT I spoke with patient at length repeating the instructions at least 4 times. I am mailing the note directly to the patient and she is aware that this will be coming and if she has questions to please contact the office. Patient also mentioned while she was on the phone that she has sores in her pubic area and she has had for several years. She said Dr. Marmolejo looked at these the time last but they are getting worse. She indicated that she is unable to hold her urine so she wears pad and the pads get moist and are rubbing and creating sores. Patient indicated that she does use [facility] and to send them to [facility]. Taurus Chang MA * Telephone Encounter - Purvi Kinney LPN - 07/26/2024 2:28 PM EDT Left message to return call. * Telephone Encounter - Mateo Marmolejo MD - 07/26/2024 12:55 PM EDT Let patient know her B12 is slightly low and want her to start taking OTC Vit B12 500 mcg once a day. Her Uric acid level is high and want to start her on daily allopurinol 300 mg a day to prevent goutattacks. (See if still uses [facility] for the pill packs) Her thyroid lab is showing she is getting too much replacement medication. I want her to change herlevothyroxine dosage from 150 mcg one daily Fri-Sat and 1/2 a tab on Sundays to one every day Fri-Sat and none on Friday. Order placed to get repeat thyroid lab on or after 09/25/2024. Let patient know because of the water pill she is on, furosemide 40 mg a day her potassium is low. Will need to start potassium 20 meq a day. Will send in script. Will need potassium level in 2 weeks. Order placed. The rest of her labs and Urine were all ok. documented in this encounterOhio[facility]10-[facility]24 Telephone encounter Note * Telephone Encounter - Taurus Chang MA - 08/09/2024 9:23 AM EDT Spoke with patient and let her know that we had left several messages and that she should take the antibiotic. She had not taken it yet. Patient also did have her wound appointment yesterday. She said she had not heard from the Urology office but I gave patient name and number and let her know if she didn't hear from to call tomorrow. Taurus Chang MA [facility]10-11-2024 Telephone encounter Note* Telephone Encounter - Erma Frias LPN - 08/06/2024 8:59 AM EDT Left a message for pt to call the office and ask to speak to a nurse. Erma Frias LPN [facility]10-09-2024 Telephone encounter Note* Telephone Encounter - Erma Frias LPN - 08/04/2024 3:24 PM EDT Tried to reach pt by phone she answered but could not hear me and when I tried to call back her line is ringing busy. Try later. Erma Frias LPN [facility]10-09-2024 Telephone encounter Note* Telephone Encounter - Taurus Chang MA - 08/04/2024 2:46 PM EDT Faxed info to Dr. Ochoa. Taurus Chang MA [facility]10-09-2024 Telephone encounter Note* Telephone Encounter - Mateo Marmolejo MD - 08/04/2024 2:40 PM EDT Advise patient it's ok to take the antibiotic. [facility]10-09-2024 Telephone encounter Note* Telephone Encounter - Erma Frias LPN - 08/04/2024 2:20 PM EDT Pt called in and message below regarding referral was given. Pt thought that [facility] was going to call them. She will call to get apt. Pt reports she just picked up the ATB and pt is asking if okay to take with all her other medications. Please advise pt. Erma Frias LPN [facility]10-02-2024 Telephone encounter Note* Telephone Encounter - Monty Minor RN - 07/28/2024 4:44 PM EDT Left vm for patient to return call to nurse for provider's message. [facility]10-02-2024 Telephone encounter Note* Telephone Encounter - Mateo Marmolejo MD - 07/28/2024 2:50 PM EDT Let Mónica know that the last time she was in I send danae script for an antibiotic and placed a referral for her to see [facility] wound center. Does she have an appt with them? I just placed a consult for her to see Urology, Dr. Ochoa in [place] for her incontinence and overactive bladder. [facility]10-02-2024 Telephone encounter Note* Telephone Encounter - Taurus Chang MA - 07/28/2024 10:48 AM EDT I spoke with patient at length repeating the instructions at least 4 times. I am mailing the note directly to the patient and she is aware that this will be coming and if she has questions to please contact the office. Patient also mentioned while she was on the phone that she has sores in her pubic area and she has had for several years. She said Dr. Marmolejo looked at these the time last but they are getting worse. She indicated that she is unable to hold her urine so she wears pad and the pads get moist and are rubbing and creating sores. Patient indicated that she does use [facility] and to send them to [facility]. Taurus Chang MA [facility]09-30-2024 Telephone encounter Note* Telephone Encounter - Purvi Kinney LPN - 07/26/2024 2:28 PM EDT Left message to return call. [facility]09-30-2024 Telephone encounter Note* Telephone Encounter - Mateo Marmolejo MD - 07/26/2024 12:55 PM EDT Let patient know her B12 is slightly low and want her to start taking OTC Vit B12 500 mcg once a day. Her Uric acid level is high and want to start her on daily allopurinol 300 mg a day to prevent goutattacks. (See if still uses [facility] for the pill packs) Her thyroid lab is showing she is getting too much replacement medication. I want her to change herlevothyroxine dosage from 150 mcg one daily Fri-Sat and 1/2 a tab on Sundays to one every day Fri-Sat and none on Friday. Order placed to get repeat thyroid lab on or after 09/25/2024. Let patient know because of the water pill she is on, furosemide 40 mg a day her potassium is low. Will need to start potassium 20 meq a day. Will send in script. Will need potassium level in 2 weeks. Order placed. The rest of her labs and Urine were all ok. [facility]09-27-2024 History of Present illness Narrative* Mateo Marmolejo MD - 07/23/2024 1:00 PM EDT Images from the original note were not included. Mónica Decker is a 74 year old female here for a Medicare wellness visit. Medicare Health Risk Assessment General Health fair Exercise: Minutes/Day none Exercise: Days/Week Alcohol: Daily Use never Alcohol: Drinks/Day Alcohol: 6 or more drinks Feel off balance S/p hip surgery Concerns: Teeth/Dentures Concerns: Sexual function Troubled by feelings Anxious sometimes Frequency: Eating healthy diet ADLs requiring help Family helping Safety precautions in home/vehicle Smoke, vape, chews tobacco never Difficulty hearing no Difficulty seeing Some blurring Current Providers Specialists: I have reviewed specialist-related care of the patient in the medical record. Current care team: Patient Care Team: Mateo Marmolejo MD as PCP - General (Family Medicine) Medical/Family history review Reviewed and updated problem list, medical/surgical/family/social history, medications, and allergies. Opioid use review Opioid Medications (last 90 days) 04/25/2024 23:09 Opioid Medications tramadol HCl 50-100 mg, ORAL, EVERY 6 HOURS NEEDED, Starting on Juliana 04/22/24 at 0946, Until 04/25/24 at 2309, Moderate Pain (4-6) - Enteral, Severe Pain (>/=7) - Enteral MAX RECOMMENDED DOSE = 400 MG/24 HRS, (300 MG/24 HRS if patient greater than 75 years old) -Discontinued (AUTO DC AT D) Details Hospital medication Anxiety/Depression screening Recommendation: no further intervention at this time Cognitive screening Memory test was 2/3 and with clock she got numbers 1,2,3 and 4 correct then switched to double digits and were out of order. Cognitive screening reviewed and Recommended referral for further evaluation (score 0-2). Functional Observation Was the patient's Timed Up & Go test unsteady or >= 12 seconds? No Advance Care Planning Patient did not wish or was not able to name a surrogate decision maker or provide an advance care plan Measurements There were no vitals taken for this visit. Needs to schedule a vision check. Assessment/Plan Medicare annual wellness visit, subsequent (Z00.00) - Counseled on healthy diet and regular exercise - Fall avoidance information provided - Personalized prevention plan provided See below Chief Complaint Patient presents with: Medicare Wellness Exam Follow Up HPI Mónica Decker is a 74 year old female who presents here today for Chronic Medical Conditions. and Medicare Annual Visit. Patient with hx of HTN, Hyperlipidemia, Hypothyroidism, elevated A1c, gout, allergies, Obesity, SANDRA, OAB Patient has status post left hip replacement since 04/21/2024 and right hip replacement since 06/25/2024 Patient getting around better. Has noted she is having problems with numbers and her mother had dementia. She is also having some vision blurring. Past medical history, appointments, medications, allergies reviewed. Previous Medical History PAST MEDICAL HISTORY Diagnosis Date 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 01/24/2021 Adenomatous colon polyp Allergic rhinitis 07/08/2005 Bilateral hip pain 06/05/2023 Dystrophic nail 01/24/2021 multiple bilateral toes. Elevated hemoglobin A1c 08/27/2018 Essential hypertension, benign 07/08/2005 Fracture left forearm and right radial head Hammer toes of both feet 01/24/2021 Hyperlipidemia, mixed 02/05/2018 As of 02/05/18 patient declines statin therapy. Medicare annual wellness visit, subsequent 08/27/2018 Medicare part B: 02/24/2014 last done: 08/27/2019 Morbid (severe) obesity due to excess calories (HCC) 02/06/2006 OAB (overactive bladder) 12/19/2020 Declines medication as of 12/19/20 Obesity, Class II, BMI 35-39.9 02/19/2021 SANDRA (obstructive sleep apnea) 07/08/2005 Had corrective surgery Personal history of colonic polyps 03/14/2016 Postsurgical hypothyroidism 09/04/2005 Primary osteoarthritis of both hips 06/20/2015 Primary osteoarthritis of both knees 06/20/2015 Previous Surgical History PAST SURGICAL HISTORY Procedure Laterality Date AMPUTATION TOE,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 ARTHROSCOPY KNEE DIAGNOSTIC W/WO SYNOVIAL BX SPX Arthroscopy, knee COLONOSCOPY 05/30/2022 Tubular Adenoma-repeat in 3 years COLONOSCOPY FLX DX W/COLLJ SPEC WHEN PFRMD years ago Colonoscopy COLONOSCOPY FLX DX W/COLLJ SPEC WHEN PFRMD 10/13/2013 Colonoscopy COLONOSCOPY FLX DX W/COLLJ SPEC WHEN PFRMD 03/14/2016 Colonoscopy COLONOSCOPY FLX DX W/COLLJ SPEC WHEN PFRMD 11/09/2018 Colonoscopy COLSC FLX W/RMVL OF TUMOR POLYP LESION SNARE TQ 06/15/2010 PAST SURGICAL HISTORY OF 1960 bladder surgery to enlarge opening PAST SURGICAL HISTORY OF uvulectomy for SANDRA SIGMOIDOSCOPY FLX DX W/COLLJ SPEC BR/WA IF PFRMD 12/06/2013 Sigmoidoscopy, flexible THYROIDECTOMY TOTAL/COMPLETE 2004 TOTAL HIP REPLACEMENT Right 06/25/2023 TOTAL HIP REPLACEMENT Left 04/21/2024 Family History FAMILY HISTORY Problem Relation Age of Onset Heart Father fluid on heart Glaucoma Father Hypertension Mother Stroke Brother Strabismus Brother Detached Retina Brother Patient Allergies ALLERGIES Allergen Reactions Latex Unknown Current Medications Current Outpatient Medications on File Prior to Visit Medication Sig amLODIPine (NORVASC) 10 mg tablet Take 1 tablet by mouth once daily. PLEASE MAIL TO PATIENT;S HOME - PILL FILI furosemide (LASIX) 40 mg tablet Take 1 tablet by mouth once daily. PLEASE MAIL TO PATIENT;S HOME - PILL FILI lisinopril (ZESTRIL) 40 mg tablet Take 1 tablet by mouth once daily. PLEASE MAIL TO PATIENT'S HOME - PILL FILI pravastatin (PRAVACHOL) 10 mg tablet Take 1 tablet by mouth once daily. PLEASE MAIL TO PATIENT'S HOME - PILL FILI levothyroxine (LEVOXYL) 150 mcg tablet Take 1 tablet by mouth once daily. Fri- Fri and 10/28 a tab on Friday. PLEASE MAIL TO PATIENT'S HOME - PILL FILI amLODIPine (NORVASC) 10 mg tablet Take 1 tablet by mouth once daily. furosemide (LASIX) 40 mg tablet Take 1 tablet by mouth once daily. lisinopril (ZESTRIL) 40 mg tablet Take 1 tablet by mouth once daily. pravastatin (PRAVACHOL) 10 mg tablet Take 1 tablet by mouth once daily. levothyroxine (LEVOXYL) 150 mcg tablet Take 1 tablet by mouth once daily. Fri- Sat and 10/28 a tab on Friday. Take on empty stomach. For Thyroid. risperiDONE (RISPERDAL) 0.5 mg tablet Take 0.5 mg by mouth daily at bedtime. Cholecalciferol, Vitamin D3, (VITAMIN D-3) 50 mcg (2,000 unit) cap Take 1 capsule by mouth once daily. acetaminophen (TYLENOL) 500 mg tablet Take 2 tablets by mouth every 8 hours as needed for pain. polyethylene glycol 3350 17 gram packet Take 1 Packet by mouth once daily. Dissolve dose in 4 - 8 ounces of liquid and take as directed. amoxicillin (AMOXIL) 500 mg capsule Please take 4 capsules by mouth 1 (one) hour prior to your dental appointment. No current facility-administered medications on file prior to visit. Social History Social History Tobacco Use Smoking status: Never Smokeless tobacco: Never Tobacco comments: Mom used to smoke, quit 2011 Vaping Use Vaping status: Never Used Substance Use Topics Alcohol use: No Drug use: No Review of Symptoms REVIEW OF SYSTEMS GENERAL: No malaise or fevers. Has lost some weight since having her hip surgeries and being more active. HEENT: Negative for frequent or significant headaches, No changes in hearing or vision, no nose bleeds or other nasal problems NECK: Negative for lumps, goiter, pain and significant neck swelling RESPIRATORY: Negative for cough, hemoptysis, wheezing, COPD, dyspnea or shortness of breath CARDIOVASCULAR: Negative for chest pain, leg swelling, hypertension, CHF or palpitations GI: No nausea, vomiting, or diarrhea, No heartburn or reflux symptoms, and blood : No history of dysuria, frequency or blood. Still has some incontinence MUSCULOSKELETAL: Negative for joint pain or swelling, back pain or muscle pain SKIN: Negative for lesions, rash, and itching. Still has irritation in her groin and but crack. PSYCH: Negative for sleep disturbance, mood disorder and recent psychosocial stressors HEMATOLOGY/LYMPHOLOGY: Negative for prolonged bleeding, bruising easily or swollen nodes ENDOCRINE: Negative for cold or heat intolerance, polyuria, polydipsia and goiter NEURO: No history of headaches, syncope, paralysis, seizures or tremors EXAM: BP 116/70 (BP Site: Left Arm, BP Position: Sitting, BP Cuff Size: Large Adult) Pulse 89 Resp 14 Ht 152.4 cm (5') Wt 81.6 kg (180 lb) SpO2 98% BMI 35.15 kg/m Last 5 Encounter Wt Readings: Date: Wt: 07/23/2024 81.6 kg (180 lb) 06/07/2024 87.1 kg (192 lb) 04/05/2024 92 kg (202 lb 12.8 oz) 04/05/2024 91.2 kg (201 lb) 2024 91.2 kg (201 lb 1 oz) General Appearance: Well appearing, alert, in no acute distress, well-hydrated, well nourished. andObese. Skin: Skin color, texture, turgor normal, no suspicious rashes or lesions. Rectal area shows no skin sores or breakdown. There are external hemorrhoids. In the folds of the groin she has multiple open wounds that are seeping. Similar to ones she had in the past. Head: Normocephalic, no masses, lesions, tenderness or abnormalities. Eyes: Anicteric sclera. Pupils are equally round and reactive to light. Extraocular movements are intact. . Ears: External ears, TM's normal, canals clear. Nose/Sinuses: Nares normal, septum midline, mucosa normal, no drainage or sinus tenderness. Oropharynx: Lips, mucosa, and tongue normal, teeth and gums normal, oropharynx normal. Neck: Supple, no adenopathy; thyroid symmetric, normal size, no bruits. Lungs: Lungs clear to auscultation. No wheezing, rhonchi, rales.. Heart: RRR without murmur, gallop, or rubs. No ectopy. Abdomen: Normal abdominal exam, Abdomen soft, non-tender. Bowel sounds normal. No masses, organomegaly. Extremities: No deformities, skin discoloration, clubbing or cyanosis. Good capillary refill. Slight non-pitting edema. Musculoskeletal: Muscular strength intact, No joint swelling, deformity, or tenderness. Peripheral Pulses: Normal. Neurologic: Gait: some imbalance and aided by a cane. Reflexes normal and symmetric. Sensation to light touch and crainal nerves 2-12 intact.. Health Maintenance List Depression Screening Never done Anxiety Screening Never done Shingrix Vaccine(1 of 2) Never done BP Controlled (<130/80) due on 06/20/2022 Advance Directive Discussion due on 10/27/2023 RSV Vaccine(1 - 1-dose 75+ series) Never done Covid-19 Vaccine( - season) due on 06/27/2024 Colorectal Cancer Screening due on 05/30/2025 Annual PCP Team Chronic Disease Visit due on 06/07/2025 Diabetes Screening due on 04/24/2027 Lipid Screening due on 08/11/2028 DTaP,Tdap,Td Vaccine(3 - Td or Tdap) due on 06/04/2029 Bone Density Screening Completed Mammogram Screening Discontinued Influenza Vaccine Discontinued Hepatitis C Screening Discontinued Pneumococcal Vaccine: 65+ Discontinued Data reviewed A/P ASSESSMENT/PLAN: 1. Medicare annual wellness visit, subsequent - ICD9: V70.0, ICD10: Z00.00 (primary diagnosis) - Counseled on healthy diet and regular exercise - Discussed need and benefit for weight loss. BMI 35.15 kg/(m^2) - Patient counseled on and acknowledged vaccine benefits/risks/side effects; VIS provided: COVID-19 - Follow up for annual exam in one year 2. Essential hypertension, benign - ICD9: 401.1, ICD10: I10 - Controlled - Continue current medications - Recommend home blood pressure monitoring, to bring results to next visit - Encouraged sodium restriction, DASH or Mediterranean diet - Recommend regular aerobic exercise - Discussed need for and benefit of weight loss. BMI 35.15 kg/(m^2) - COMPREHENSIVE METABOLIC PANEL - URINALYSIS, WITH MICROSCOPIC - LIPID PANEL, NONFASTING 3. Hyperlipidemia, mixed - ICD9: 272.2, ICD10: E78.2 - Control undetermined, due for labs - Continue current medications - Counseled on healthy diet and regular exercise - Discussed need for and benefit of weight loss. BMI 35.15 kg/(m^2) Check - COMPREHENSIVE METABOLIC PANEL - URINALYSIS, WITH MICROSCOPIC - LIPID PANEL, NONFASTING 4. Postsurgical hypothyroidism - ICD9: 244.0, ICD10: E89.0 - Instructed patient on importance of taking on an empty stomach either first thing in the morning or at bedtime. - continue current dose of Synthroid Check - THYROID STIMULATING HORMONE - COMPLETE BLOOD COUNT AND DIFFERENTIAL 5. Elevated hemoglobin A1c - ICD9: 790.29, ICD10: R73.09 Check - HEMOGLOBIN A1C 6. 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 - ICD9: 274.01, ICD10: M10.071 Check - URIC ACID 7. Obesity, Class II, BMI 35-39.9 - ICD9: 278.00, ICD10: E66.9 - patient has had some weight loss with being more active., 8. OAB (overactive bladder) - ICD9: 596.51, ICD10: N32.81 - continues to be an issues. Wears pads. Has declined meds in the past. 9. Foot callus - ICD9: 700, ICD10: L84 - managed per podiatry 10. Memory difficulties - ICD9: 780.93, ICD10: R41.3 Check - COMPREHENSIVE METABOLIC PANEL - THYROID STIMULATING HORMONE - URINALYSIS, WITH MICROSCOPIC - COMPLETE BLOOD COUNT AND DIFFERENTIAL - VITAMIN B12 - FOLATE, SERUM - SYPHILIS TOTAL W/REFLEX Brother who is here today says he noted a change in her memory since her second hip surgery a few months ago. The biggest change was that she was no longer reading anymore and that she always read every day. Question if she may have had a CVA during the hip surgery. Suspect she will need imagine and will defer to Geriatrics. - CONSULT to Geriatrics. 11. Cellulitis of skin - ICD9: 682.9, ICD10: L03.90 Treat with - SULFAMETHOXAZOLE 800 MG-TRIMETHOPRIM 160 MG TABLET twice a day for 10 days 12. Multiple wounds of skin - ICD9: 959.8, ICD10: T14.8XXA - will get her into [facility]. 13. Blurred vision - ICD9: 368.8, ICD10: H53.8 - CONSULT TO OPHTHALMOLOGY 14. Advance directive discussed with patient - ICD9: V65.49, ICD10: Z71.89 - packets provided. 15. Medication management - ICD9: V58.69, ICD10: Z79.899 Check - COMPLETE BLOOD COUNT AND DIFFERENTIAL 16. Screening for depression - ICD9: V79.0, ICD10: Z13.31 - DEPRESSION SCREENING 17. Encounter for screening examination for other mental health and behavioral disorders - ICD9: V79.8, ICD10: Z13.39 - ANXIETY SCREENING 18. Encounter for immunization - ICD9: V03.89, ICD10: Z23 - PFIZER-BIONTECH COVID-19 VACCINE AGE 12+ YR (COMIRNATY): given F/u 6 months routine I spent a total of 60 minutes on the date of the service which included preparing to see the patient, [id number] patient care, completing clinical documentation, performing a medically appropriate examination, counseling and educating the patient/family/caregiver and ordering medications, tests, or procedures. Mateo Marmolejo MD documented in this encounter[facility] Instructions* Patient Instructions* Mateo Marmolejo MD - 07/23/2024 12:28 PM EDT Screening schedule The following prevention plan is recommended: Depression Screening Never done Anxiety Screening Never done Shingrix Vaccine(1 of 2) Never done BP Controlled (<130/80) due on 06/20/2022 Advance Directive Discussion due on 10/27/2023 RSV Vaccine(1 - 1-dose 75+ series) Never done Covid-19 Vaccine( season) due on 06/27/2024 WHAT YOU CAN DO TO PREVENT FALLS Many falls can be prevented. By making some changes, you can lower your chances of falling. Four things YOU can do to prevent falls for you* and your caregiver 1. Begin a regular exercise program Exercise is one of the most important ways to lower your chances of falling. It makes you stronger and helps you feel better. Exercises that improve balance and coordination (like Alan Chi) are the most helpful. Lack of exercise leads to weakness and increases your chances of falling. Ask your doctor or health care provider about the best type of exercise program for you. 2. Have your health care provider review your medicines Have your doctor or pharmacist review all the medicines you take, even [id number] medicines. As you get older, the way medicines work in your body can change. Some medicines, or combinations of medicines, can make you sleepy or dizzy andcan cause you to fall. 3. Have your vision checked Have your eyes checked by an eye doctor at least once a year. You may be wearing the wrong glasses or have a condition like glaucoma or cataracts that limits your vision. Poor vision can increase your chances of falling. 4. Make your home safer About half of all falls happen at home. To make your home safer: Remove things you can trip over (like papers, books, clothes, and shoes) from stairs and places where you walk. Remove small throw rugs or use double-sided tape to keep the rugs from slipping. Keep items you use often in cabinets you can reach easily without using a step stool. Have grab bars put in next to your toilet and in the tub or shower. Use non-slip mats in the bathtub and on shower floors. Improve the lighting in your home. As you get older, you need brighter lights to see well. Hang light-weight curtains or shades to reduce glare. Have handrails and lights put in on all staircases. Wear shoes both inside and outside the house. Avoid going barefoot or wearing slippers. For more information, contact: Centers for Disease Control and Prevention www.cdc.gov/injury * This information may not apply if you have certain medical conditions. documented in this encounterOhio[facility]09-[facility]24 History of Present illness Narrative* López Randall - 07/22/2024 1:32 PM EDT Subjective: Patient presents to clinic c/o painful toenails. They state that the nails are especially painful with shoe gear and pressure. Patient states that nails 2-4 b/l are painful. No other pedal complaints at this time. Patient states no change in medications or medical history since last visit. Objective: Patient presents to clinic ambulating in eaker Vasc: DP and PT pulses are palpable bilateral. CFT is less than 5 seconds bilateral. Skin temperature is warm to cool proximal to distal bilateral. There is moderate edema or varicosities noted. Neuro: Protective sensation is intact to the foot and toes when tested with the 5.07 SWM bilateral.Vibratory sensation is decreased at the hallux IPJ bilateral. The hallux is downgoing bilateral. Derm: Nails 1-5 b/l are painful, discolored-yellow, thick, crumbly, dystrophic and with subungal debris. Skin is of normal turgor, texture and hair growth is present bilateral. There are callus to b/l hallux. no ulcerations, scars, verruca or other lesions noted. Ortho: Muscle strength is 5/5 for all pedal groups tested. Ankle joint DF is decreased with the knee extended with no pain or crepitus noted. 1st MPJ ROM is decreased bilateral. Large bunion is notedb/l. Hammertoes are noted to lesser toes of b/l feet Assessment: (B35.1) Onychomycosis (primary encounter diagnosis) (M79.675) Pain in toe of left foot (M79.674) Pain in toe of right foot Plan: Patient was seen and evaluated. Nails 1-5 bilateral were debrided in length and thickness. Small bleed to left 3rd toe. Band aide applied Discussed removal of toenails. Patient declined Callus reduced with dremmel Patient is to RTC in 3-4 months. López Randall DPM * Nati Rodriguez LPN - 07/22/2024 1:21 PM EDT AMB ROOMING INTAKE FLOWSHEET DATA Risk Screening Do you have concerns about personal safety or safety in the home?: No Patient presents with: Left Foot - Established Patient, nail care Right Foot - Established Patient, nail care Nati Rodriguez LPN documented in this encounterOhio[facility]09-[facility]24 History of Present illness Narrative* Mateo Marmolejo MD - 07/02/2024 8:27 AM EDT Patient's [facility] form / care plan for certification period 06/03/2024 to 08/01/2024 reviewed and signed. Relevant medical records were reviewed. No changes were indicated documented in this encounterOhiohealth [facility]08-23-2024 History of Present illness Narrative* Mateo Marmolejo MD - 06/18/2024 5:25 PM EDT Patient's [facility] 485 form / care plan for certification period 06/03/2024 to 08/01/2024 reviewed and signed. Relevant medical records were reviewed. No changes were indicated documented in this encounterOhiohealth Marion [facility] Hospital08-20-2024 Telephone encounter Note * Telephone Encounter - Shayla Pina - 06/15/2024 10:29 AM EDT Mónica is calling Mateo Marmolejo MD today with concern regarding Medication Problem (Please review medications that were sent in.). Patient is home and was making up her DIY Pill Packs and notes she is completely out of her risperidone. She would like a short term supply sent to the [facility] in [place] and the residential sent to [facility] pill pack placement) Patient has been identified by name and birthdate. Duration of symptoms: N/A Person calling: self Call patient at: at home [phone] (home) Was an appointment scheduled: No Closing statement: Shayla Valdovinos [facility] Work Phone: [phone] Miscellaneous Notes* Telephone Encounter - Shayla Pina - 06/15/2024 10:29 AM EDT Mónica is calling Mateo Marmolejo MD today with concern regarding Medication Problem (Please review medications that were sent in.). Patient is home and was making up her DIY Pill Packs and notes she is completely out of her risperidone. 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 Duration of symptoms: N/A Person calling: self Call patient at: at home [phone] (home) Was an appointment scheduled: No Closing statement: Shayla Valdovinos documented in this encounterOhiohealth Marion General Hospital08-19-2024 Telephone encounter Note * Telephone Encounter - Mateo Marmolejo MD - 06/14/2024 4:31 PM EDT The following approved medication requests have been transmitted electronically. Requested Prescriptions Signed Prescriptions Disp Refills amLODIPine (NORVASC) 10 mg tablet 90 tablet 1 Sig: Take 1 tablet by mouth once daily. PLEASE MAIL TO PATIENT;S HOME - PILL FILI Authorizing Provider: MATEO MARMOLEJO furosemide (LASIX) 40 mg tablet 90 tablet 1 Sig: Take 1 tablet by mouth once daily. PLEASE MAIL TO PATIENT;S HOME - PILL FILI Authorizing Provider: MATEO MARMOLEJO lisinopril (ZESTRIL) 40 mg tablet 90 tablet 1 Sig: Take 1 tablet by mouth once daily. PLEASE MAIL TO PATIENT'S HOME - PILL FILI Authorizing Provider: MATEO MARMOLEJO pravastatin (PRAVACHOL) 10 mg tablet 90 tablet 1 Sig: Take 1 tablet by mouth once daily. PLEASE MAIL TO PATIENT'S HOME - PILL FILI Authorizing Provider: MATEO MARMOLEJO levothyroxine (LEVOXYL) 150 mcg tablet 90 tablet 1 Sig: Take 1 tablet by mouth once daily. Fri-Fri and 2 a tab on Friday. PLEASE MAIL TO PATIENT'S HOME - PILL FILI Authorizing Provider: MATEO MARMOLEJO amLODIPine (NORVASC) 10 mg tablet 10 tablet 0 Sig: Take 1 tablet by mouth once daily. Authorizing Provider: MATEO MARMOLEJO furosemide (LASIX) 40 mg tablet 10 tablet 0 Sig: Take 1 tablet by mouth once daily. Authorizing Provider: MATEO MARMOLEJO lisinopril (ZESTRIL) 40 mg tablet 10 tablet 0 Sig: Take 1 tablet by mouth once daily. Authorizing Provider: MATEO MARMOLEJO pravastatin (PRAVACHOL) 10 mg tablet 10 tablet 0 Sig: Take 1 tablet by mouth once daily. Authorizing Provider: MATEO MARMOLEJO levothyroxine (LEVOXYL) 150 mcg tablet 10 tablet 0 Sig: Take 1 tablet by mouth once daily. Mon-Sat and 10/28 a tab on Friday. Take on empty stomach. ForThyroid. Authorizing Provider: MATEO MARMOLEJO MD [facility]08-19-2024 Miscellaneous Notes* Telephone Encounter - Mateo Marmolejo MD - 06/14/2024 4:31 PM EDT The following approved medication requests have been transmitted electronically. Requested Prescriptions Signed Prescriptions Disp Refills amLODIPine (NORVASC) 10 mg tablet 90 tablet 1 Sig: Take 1 tablet by mouth once daily. PLEASE MAIL TO PATIENT;S HOME - PILL FILI Authorizing Provider: MATEO MARMOLEJO furosemide (LASIX) 40 mg tablet 90 tablet 1 Sig: Take 1 tablet by mouth once daily. PLEASE MAIL TO PATIENT;S HOME - PILL FILI Authorizing Provider: MATEO MARMOLEJO lisinopril (ZESTRIL) 40 mg tablet 90 tablet 1 Sig: Take 1 tablet by mouth once daily. PLEASE MAIL TO PATIENT'S HOME - PILL FILI Authorizing Provider: MATEO MARMOLEJO pravastatin (PRAVACHOL) 10 mg tablet 90 tablet 1 Sig: Take 1 tablet by mouth once daily. PLEASE MAIL TO PATIENT'S HOME - PILL FILI Authorizing Provider: MATEO MARMOLEJO levothyroxine (LEVOXYL) 150 mcg tablet 90 tablet 1 Sig: Take 1 tablet by mouth once daily. Mon-Sat and 1/2 a tab on Friday. PLEASE MAIL TO PATIENT'S HOME - PILL FILI Authorizing Provider: MATEO MARMOLEJO amLODIPine (NORVASC) 10 mg tablet 10 tablet 0 Sig: Take 1 tablet by mouth once daily. Authorizing Provider: MATEO MARMOLEJO furosemide (LASIX) 40 mg tablet 10 tablet 0 Sig: Take 1 tablet by mouth once daily. Authorizing Provider: MATEO MARMOLEJO lisinopril (ZESTRIL) 40 mg tablet 10 tablet 0 Sig: Take 1 tablet by mouth once daily. Authorizing Provider: MATEO MARMOLEJO pravastatin (PRAVACHOL) 10 mg tablet 10 tablet 0 Sig: Take 1 tablet by mouth once daily. Authorizing Provider: MATEO MARMOLEJO levothyroxine (LEVOXYL) 150 mcg tablet 10 tablet 0 Sig: Take 1 tablet by mouth once daily. Mon-Sat and 1/2 a tab on Friday. Take on empty stomach. ForThyroid. Authorizing Provider: MATEO MARMOLEJO MD * Telephone Encounter - Taurus Chang MA - 06/14/2024 2:16 PM EDT Contacted [facility] and they can mail to patient in [place]. Can take up 7 days to get directly to patient. Patient is ok with [facility],. She will need a short supply (10 days worth) sent to [facility] in [place] untilshe gets her medication delivered from [facility]. Taurus Chang MA * Telephone Encounter - Taurus Chang MA - 06/14/2024 12:19 PM EDT Contacted pharmacy [facility] and they do not do pill packs. Tried to contact [facility] and they are closed from 12-. Will try after lunch. Patient would like delivered need to find out which one will deliver to [facility]. Can they be mailed or delievered? How soon can this be sent? Patient indicated that she has enough medication for tomorrow. Patient indicated that she was seen last week by Ramiro was told that pill pack will be easier for her but prescription were sent to [facility]. Patient was never given other names of pharmacy that do pill pack she has no idea who or what to do. Taurus Chang MA * Telephone Encounter - Mateo Marmolejo MD - 06/14/2024 11:14 AM EDT I don't think [facility] does Pill packs. Need to verify first and if note patient needs to decide if she wants them we can send it to [facility] for the pill packs. * Telephone Encounter - Taurus Chang MA - 06/14/2024 8:32 AM EDT Pended prescriptions that look like they are due for refill. Attempted to contact pharmacy but they are not open yet. Patient was seen on 06/07/2024 [facility] follow up. Taurus Chang MA * Telephone Encounter - Christine Stern LPN - 06/14/2024 8:21 AM EDT Pt calls upset because she says she is on her last day of medications that are in a pill pack and she does not have any other pill packs and does not know how to get them or what she needs to do. Pt reports it has [facility] on the pill pack. Pt is asking office to figure this out for her because she does not know what to do. Pt is concerned she will pass out cold turkey if she does not have her meds for tomorrow. Christine Stern LPN documented in this encounterOhiohealth Marion General Hospital08-19-2024 Telephone encounter Note * Telephone Encounter - Taurus Chang MA - 06/14/2024 2:16 PM EDT Contacted [facility] and they can mail to patient in [place]. Can take up 7 days to get directly to patient. Patient is ok with [facility],. She will need a short supply (10 days worth) sent to [facility] in [place] untilshe gets her medication delivered from [facility]. Taurus Chang MA [facility]08-19-2024 Telephone encounter Note* Telephone Encounter - Taurus Chang MA - 06/14/2024 12:19 PM EDT Contacted pharmacy [facility] and they do not do pill packs. Tried to contact [facility] and [facility] and they are closed from 09-26. Will try after lunch. Patient would like delivered need to find out which one will deliver to [facility]. Can they be mailed or delievered? How soon can this be sent? Patient indicated that she has enough medication for tomorrow. Patient indicated that she was seen last week by Ramiro was told that pill pack will be easier for her but prescription were sent to [facility]. Patient was never given other names of pharmacy that do pill pack she has no idea who or what to do. Taurus Chang MA [facility]08-19-20[facility] Telephone encounter Note* Telephone Encounter - Mateo Marmolejo MD - 06/14/2024 11:14 AM EDT I don't think [facility] does Pill packs. Need to verify first and if note patient needs to decide if she wants them we can send it to [facility] for the pill packs. [facility]08-19-[facility] Telephone encounter Note* Telephone Encounter - Taurus Chang MA - 06/14/2024 8:32 AM EDT Pended prescriptions that look like they are due for refill. Attempted to contact pharmacy but they are not open yet. Patient was seen on 06/07/[address] [facility] follow up. Taurus Chang MA [facility]08-19-2024 Telephone encounter Note* Telephone Encounter - Christine Stern LPN - 06/14/2024 8:21 AM EDT Pt calls upset because she says she is on her last day of medications that are in a pill pack and she does not have any other pill packs and does not know how to get them or what she needs to do. [facility] reports [facility] [facility] the pill pack. Pt is asking office to figure this out for her because she does not know what to do. Pt is concerned she will pass out cold turkey if she does not have her meds for tomorrow. Christine Stern LPN [facility]08-15-2024 History of Present illness Narrative* Julio Cesar Deluna MD - 06/10/2024 11:26 AM EDT Post-op Office Visit Mónica Decker 74 year old June 10, 2024 11:27 AM History: Mónica Decker Is now s/p LEFT COTY Post-operative course has been without complication. no readmission/complications Subjective: Patient reports no pain. Overall is doing well. cane ambulatory aid off opioid pain medication Objective: Ambulates with flexion contracture Incision well-approximated, no drainage, normal carol-incisional erythema Arcs of motion at hip are comfortable and fluid Distally DP/PT palpable Distally S/S/SP/DP/T intact at baseline Distally DF/EHL/PF intact at baseline Negative ann marie/calf tenderness Xrays: No new today Assessment and Plan: Mónica Decker Is here for a second post-op appointment, overall doing well -continued ice, rest, and use of non-narcotic analgesia as needed -wean off ambulatory aids -discussed home exercises and therapy -WBAT on operative extremity -reinforced posterior precautions through 8 weeks: avoid extremes of flexion, internal rotation, and adduction -nystatin for candidal rash -continue ankle pumps and dvt ppx through 4 weeks -discussed driving requirement: 4 weeks post-op, off narcotic pain medication, adequate brake time -will see back at 1 year appointment for clinical exam and post-op xrays--can see earlier if needed -discussed red flag symptoms of acutely increasing pain, new erythema, new swelling, drainage, shortness of breath Julio Cesar Deluna MD Orthopaedic Surgery documented in this encounterOhiohealth Marion [facility] Hospital08-14-2024 Telephone encounter Note * Telephone Encounter - Vernell Bernardo RN - 06/09/2024 1:23 PM EDT Ana from [facility] calls and is requesting office note to be faxed to [phone]. Faxed as requested. Vernell Bernardo RN [facility]08-14-2024 Miscellaneous Notes* Telephone Encounter - Vernell Bernardo RN - 06/09/2024 1:23 PM EDT Ana from [facility] calls and is requesting office note to be faxed to [phone]. Faxed as requested. Vernell Bernardo RN documented in this encounterOhiohealth Marion General Hospital08-13-2024 Telephone encounter Note * Telephone Encounter - Mateo Marmolejo MD - 06/08/2024 10:59 PM EDT Noted. [facility]08-13-[facility] Miscellaneous Notes* Telephone Encounter - Mateo Marmolejo MD - 06/08/2024 10:59 PM EDT Noted. * Telephone Encounter - Zulma Burgos RN - 06/08/2024 3:44 PM EDT Elver PT calling from [facility] to report plan of care for patient and PT will visit patient 2 times a week for first week and 2 times a week for 2 weeks and 1 time a week for 2 weeks. PT will work with patient on strengthening and maintaining independent level. Call back number for Elver if any questions is [phone]. Zulma Burgos RN documented in this encounterOhiohealth Marion General Hospital08-13-2024 Telephone encounter Note * Telephone Encounter - Zulma Burgos RN - 06/08/2024 3:44 PM EDT Elver PT calling from [facility] to report plan of care for patient and PT will visit patient 2 times a week for first week and 2 times a week for 2 weeks and 1 time a week for 2 weeks. PT will work with patient on strengthening and maintaining independent level. Call back number for [facility]ver if any questions is [phone]. Zulma Burgos RN [facility]08-13-2024 Note* Addendum Note - Ramiro Dominguez APRN.FINISHING TUNNEL OPERATOR - 06/08/2024 2:11 PM EDTAddended by: RAMIRO DOMINGUEZ on: 06/08/2024 02:11 PM Modules accepted: Orders [facility]08-13-2024 Miscellaneous Notes* Addendum Note - Ramiro Dominguez APRN.CNP - 06/08/2024 2:11 PM EDTAddended by: RAMIRO DOMINGUEZ on: 06/08/2024 02:11 PM Modules accepted: Orders * Telephone Encounter - Ramiro Dominguez APRN.CNP - 06/08/2024 2:10 PM EDT Please let patient know she will continue her current levothyroxine dosing. I have sent in a new prescription. * Telephone Encounter - Rosey Stoner MA - 06/08/2024 1:40 PM EDT Medication list placed on providers desk for review Rosey Stoner MA * Telephone Encounter - Shola Shaver RN - 06/08/2024 12:57 PM EDT Pt called and is notified of providers results and instructions. Pt voices understanding. Pt given providers fax number. Shola Shaver RN * Telephone Encounter - Ramiro Dominguez APRN.CNP - 06/08/2024 11:25 AM EDT Please let patient know her TSH is normal. I need her to fax or bring in a copy of her med list so I know what dose she is currently on. documented in this encounterOhiohealth Marion [facility] Hospital08-13-2024 Telephone encounter Note * Telephone Encounter - Ramiro Dominguez APRN.CNP - 06/08/2024 2:10 PM EDT Please let patient know she will continue her current levothyroxine dosing. I have sent in a new prescription. [facility]08-13-[facility] Telephone encounter Note* Telephone Encounter - Rosey Stoner MA - 06/08/2024 1:40 PM EDT Medication list placed on providers desk for review Rosey Stoner MA [facility]08-13-2024 Telephone encounter Note* Telephone Encounter - Shola Shaver RN - 06/08/2024 12:57 PM EDT Pt called and is notified of providers results and instructions. Pt voices understanding. Pt given providers fax number. Shola Shaver RN [facility]08-13-2024 Telephone encounter Note* Telephone Encounter - Ramiro Dominguez APRN.CNP - 06/08/2024 11:25 AM EDT Please let patient know her TSH is normal. I need her to fax or bring in a copy of her med list so I know what dose she is currently on. [facility]08-12-2024 Instructions* Patient Instructions* Ramiro Dominguez APRN.CNP - 06/07/2024 12:14 PM EDT Fax number [phone] documented in this encounterOhiohealth Marion General Hospital08-12-2024 History of Present illness Narrative* Ramiro Dominguez APRN.CNP - 06/07/2024 11:56 AM EDT Chief Complaint Patient presents with: Follow Up HPI Mónica Decker is a 74 year old female who presents here today for Above Complaints.. Patient presents for d/c from [facility]. Patient did not bring d/c paperwork with her from [facility] but will fax it to office when she gets home. Patient reports they sent her home with cups for her medications. Currently using cane for ambulation without difficulty. Past medical history, appointments, medications, allergies reviewed. Previous Medical History PAST MEDICAL HISTORY 01/24/2021: 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 No date: Adenomatous colon polyp 07/08/2005: Allergic rhinitis 06/05/2023: Bilateral hip pain 01/24/2021: Dystrophic nail Comment: multiple bilateral toes. 08/27/2018: Elevated hemoglobin A1c 07/08/2005: Essential hypertension, benign No date: Fracture Comment: left forearm and right radial head 01/24/2021: Hammer toes of both feet 02/05/2018: Hyperlipidemia, mixed Comment: As of 17 patient declines statin therapy. 08/27/2018: Medicare annual wellness visit, subsequent Comment: Medicare part B: 02/24/2014 last done: 08/27/2019 02/06/2006: Morbid (severe) obesity due to excess calories (HCC) 12/19/2020: OAB (overactive bladder) Comment: Declines medication as of 12/19/20 02/19/2021: Obesity, Class II, BMI 35-39.9 07/08/2005: SANDRA (obstructive sleep apnea) Comment: Had corrective surgery 03/14/2016: Personal history of colonic polyps 09/04/2005: Postsurgical hypothyroidism 06/20/2015: Primary osteoarthritis of both hips 06/20/2015: Primary osteoarthritis of both knees Previous Surgical History PAST SURGICAL HISTORY 2021: AMPUTATION TOE,MT-P JT; Left Comment: Left finger No date: ARTHROSCOPY KNEE DIAGNOSTIC W/WO SYNOVIAL BX SPX Comment: Arthroscopy, knee 05/30/2022: COLONOSCOPY Comment: Tubular Adenoma-repeat in 3 years years ago: COLONOSCOPY FLX DX W/COLLJ SPEC WHEN PFRMD Comment: Colonoscopy 10/13/2013: COLONOSCOPY FLX DX W/COLLJ SPEC WHEN PFRMD Comment: Colonoscopy 03/14/2016: COLONOSCOPY FLX DX W/COLLJ SPEC WHEN PFRMD Comment: Colonoscopy 11/09/2018: COLONOSCOPY FLX DX W/COLLJ SPEC WHEN PFRMD Comment: Colonoscopy 06/15/2010: COLSC FLX W/RMVL OF TUMOR POLYP LESION SNARE TQ 1960: PAST SURGICAL HISTORY OF Comment: bladder surgery to enlarge opening No date: PAST SURGICAL HISTORY OF Comment: uvulectomy for SANDRA 12/06/2013: SIGMOIDOSCOPY FLX DX W/COLLJ SPEC BR/WA IF PFRMD Comment: Sigmoidoscopy, flexible 2004: THYROIDECTOMY TOTAL/COMPLETE 06/25/2023: TOTAL HIP REPLACEMENT; Right Family History FAMILY HISTORY Problem Relation Age of Onset Heart Father fluid on heart Glaucoma Father Hypertension Mother Stroke Brother Strabismus Brother Detached Retina Brother Patient Allergies ALLERGIES Allergen Reactions Latex Unknown Current Medications Current Outpatient Medications on File Prior to Visit Medication Sig acetaminophen (TYLENOL) 500 mg tablet Take 2 tablets by mouth every 8 hours as needed for pain. aspirin, enteric coated (ASPIRIN, ENTERIC COATED) 81 mg EC tablet Take 1 tablet by mouth two times a day for 25 days. docusate sodium (COLACE) 100 mg capsule Take 1 capsule by mouth two times a day. polyethylene glycol 3350 17 gram packet Take 1 Packet by mouth once daily. Dissolve dose in 4 - 8 ounces of liquid and take as directed. ascorbic acid, vitamin C, (VITAMIN C) 500 mg tablet Take 1 tablet by mouth two times a day with meals for 14 days. nystatin (MYCOSTATIN) cream Apply to affected area two times a day. levothyroxine (LEVOXYL) 150 mcg tablet Take 1 tablet by mouth once daily. Fri- Fri and /2 a tab on Friday. lisinopril (ZESTRIL) 40 mg tablet Take 1 tablet by mouth once daily. amLODIPine (NORVASC) 10 mg tablet Take 1 tablet by mouth once daily. furosemide (LASIX) 40 mg tablet Take 1 tablet by mouth once daily. amoxicillin (AMOXIL) 500 mg capsule Please take 4 capsules by mouth 1 (one) hour prior to your dental appointment. pravastatin (PRAVACHOL) 10 mg tablet Take 1 tablet by mouth once daily. cholecalciferol, vitamin D3, (VITAMIN D3 ORAL) Take 1 tablet by mouth once daily. (Patient not taking: Reported on 04/12/2024) multivitamins w-minerals(DAILY MULTIVITAMIN-MINERALS TAB) Take one(1) tablet daily. (Patient not taking: Reported on 04/12/2024) No current facility-administered medications on file prior to visit. Social History Social History Tobacco Use Smoking status: Never Smokeless tobacco: Never Tobacco comments: Mom used to smoke, quit 2011 Vaping Use Vaping Use: Never used Substance Use Topics Alcohol use: No Drug use: No Review of Symptoms REVIEW OF SYSTEMS SEE HPI EXAM: BP 132/66 Pulse 73 Resp 16 Wt 87.1 kg (192 lb) BMI 37.50 kg/m General Appearance: Well appearing, alert, in no acute distress, well-hydrated, well nourished.. Lungs: Lungs clear to auscultation. No wheezing, rhonchi, rales.. Heart: RRR without murmur, gallop, or rubs. No ectopy. Musculoskeletal: No joint swelling, deformity, or tenderness. Peripheral Pulses: Normal. Neurologic: Gait normal. Reflexes normal and symmetric. Sensation grossly intact.. Health Maintenance List Depression Screening Never done Anxiety Screening Never done Shingrix Vaccine(1 of 2) Never done RSV Vaccine(1 - 1-dose 60+ series) Never done Advance Directive Discussion due on 10/27/2023 Covid-19 Vaccine( season) due on 04/14/2024 Annual PCP Team Chronic Disease Visit due on 04/05/2025 BP Controlled (<130/80) due on 04/05/2025 Colorectal Cancer Screening due on 05/30/2025 Diabetes Screening due on 04/24/2027 Lipid Screening due on 08/11/2028 DTaP,Tdap,Td Vaccine(3 - Td or Tdap) due on 06/04/2029 Bone Density Screening Completed Mammogram Screening Discontinued Influenza Vaccine Discontinued Hepatitis C Screening Discontinued Pneumococcal Vaccine: 65+ Discontinued ASSESSMENT/PLAN: 1. Postsurgical hypothyroidism - ICD9: 244.0, ICD10: E89.0 (primary diagnosis) - Instructed patient on importance of taking on an empty stomach either first thing in the morning or at bedtime. - check TSH today - THYROID STIMULATING HORMONE 2. S/P total right hip arthroplasty - ICD9: V43.64, ICD10: Z96.641 -Patient released from [facility] ordered has not started yet. -Walking with cane without difficulty 3. Essential hypertension, benign - ICD9: 401.1, ICD10: I10 - Controlled - Continue current medications - Recommend home blood pressure monitoring, to bring results to next visit - Encouraged sodium restriction, DASH or Mediterranean diet - Recommend regular aerobic exercise - Discussed need for and benefit of weight loss. BMI 37.50 kg/(m^2) Patient to fax med list when she gets home to verify medications and dosages. Ramiro Dominguez APRN.FINISHING TUNNEL OPERATOR documented in this encounterOhiohealth [facility] Hospital08-05-2024 Telephone encounter Note * Telephone Encounter - Mateo Marmolejo MD - 05/31/2024 12:57 PM EDT Yes. [facility]08-05-2024 Miscellaneous Notes* Telephone Encounter - Mateo Marmolejo MD - 05/31/2024 12:57 PM EDT Yes. * Telephone Encounter - Kim Salazar RN - 05/31/2024 12:27 PM EDT Ana @ [facility] calling to let provider know patient is being discharged home from [facility] s/[facility]R. She has orders for nursing, PT/OT. Agree and willing to follow orders? Ana's ph # [phone]. Kim Salazar RN documented in this encounterOhiohealth Marion [facility] Hospital08-05-2024 Telephone encounter Note * Telephone Encounter - Kim Salazar RN - 05/31/2024 12:27 PM EDT Ana @ [facility] calling to let provider know patient is being discharged home from [facility] s/pTHR. She has orders for nursing, PT/OT. Agree and willing to follow orders? Ana's ph # [phone]. Kim Salazar RN [facility]07-11-2024 History of Present illness Narrative* HernandezAysha lees RN - 05/06/2024 8:18 AM EDT Post-op Office Visit Mónica Decker 74 year old May 06, 2024 8:19 AM Surgery Date: 04/21/24 History: Mónica Decker is now 2 weeks out from left Posterior COTY. Post-operative course has been without complication. No readmission/complications Subjective: Patient reports 0/10 pain. Overall is doing well. Walker as ambulatory aid No opioid pain medication Objective: Ambulates with walker, may transition to a cane Incision well-approximated, no drainage, normal carol-incisional erythema Full ROM not tested do to early post-operative period, but smaller arcs of motion fluid and comfortable Distally DP/PT palpable Distally S/S/SP/DP/T intact at baseline Distally DF/EHL/PF intact at baseline Negative ann marie/calf tenderness Xrays: Well aligned total hip replacement in appropriate position with no evidence of loosening Assessment and Plan: Mónica Decker Is here for a first post-op appointment, overall doing well -continued ice, rest, and use of non-narcotic analgesia as needed -wean off ambulatory aids -discussed home exercises and therapy -WBAT on operative extremity -reinforced posterior precautions through 8 weeks: avoid extremes of flexion, internal rotation, and adduction -continue ankle pumps and dvt ppx through 4 weeks -discussed driving requirement: 4 weeks post-op, off narcotic pain medication, adequate brake time -will see back at 6 week appointment for clinical exam -discussed red flag symptoms of acutely increasing pain, new erythema, new swelling, drainage, shortness of breath Aysha Hernandez RN Orthopaedic Surgery [facility] History of Present illness Narrative* Peggy King Tech - 05/06/2024 7:20 AM EDT Radiology Service Progress Note PATIENT NAME: Mónica Decker DATE OF SERVICE: May 06, 2024 TIME: 8:18 AM PATIENT IDENTITY VERIFICATION COMPLETED USING TWO (2) IDENTIFIERS: Name and Date of confirmedby patient verbally. FALL SCREENING: Has the patient had 2 falls in the last year or 1 fall with injury or currently using an Ambulatory Assistive Device (Walker, Cane, Wheelchair, Crutches, etc.)? No PATIENT GENDER DATA: Female. status: : No status: NO. PATIENT RELEVANT IMPLANT DATA REVIEWED: Not Applicable PATIENT PRESENTS WITH AN IMPLANTABLE OR ATTACHED CELL TOWER CLIMBER: No RADIOLOGY DEPARTMENT: General X-ray: Exam(s) Completed: Pelvis X-Ray: Pelvis with Hip Left and Wt. Bearing PERIPHERAL IV DATA: Not applicable SIGNED BY: Martina Crawford May 06, 2024 8:18 AM documented in this encounterOhio[facility]24 NoteHNO ID: [id number] Author: PEGGY KING Tech Service: Radiology Author Type: Court Deputy Type: Progress Notes Filed: 05/06/2024 08:18 Note Text: Radiology Service Progress Note PATIENT NAME: Mónica Decker DATE OF SERVICE: May 06, 2024 TIME: 8:18 AM PATIENT IDENTITY VERIFICATION COMPLETED USING TWO (2) IDENTIFIERS: Name and Date of confirmed by patient verbally. FALL SCREENING: Has the patient had 2 falls in the last year or 1 fall with injury or currently using an Ambulatory Assistive Device (Walker, Cane, Wheelchair, Crutches, etc.)? No PATIENT GENDER DATA: Female. status: : No status: NO. PATIENT RELEVANT IMPLANT DATA REVIEWED: Not Applicable PATIENT PRESENTS WITH AN IMPLANTABLE OR ATTACHED CELL TOWER CLIMBER: No RADIOLOGY DEPARTMENT: General X-ray: Exam(s) Completed: Pelvis X-Ray: Pelvis with Hip Left and Wt. Bearing PERIPHERAL IV DATA: Not applicable SIGNED BY: Martina Crawford May 06, 2024 8:18 [id number] NoteHNO ID: [id number] Author: BYRON KNIGHT MD Service: General Internal Medicine Author Type: Physician Type: Progress Notes Filed: 04/25/2024 11:21 Note Text: INPATIENT PROGRESS NOTES Patient Name: Mónica Decker DATE of SERVICE: 04/25/2024 9:06 PRIMARY SERVICE: medicine INTERVAL HPI: Uneventful night, no nausea or vomiting. No lightheadedness or dizziness pain is well-controlled ASSESSMENT AND PLAN: Encephalopathy, suspect due to medication, resolved pain medicine, Tylenol, and tramadol Osteoarthritis status post left total hip arthroplasty, DVT prophylaxis with aspirin Hypertension is stable Hypothyroidism currently on levothyroxine Hyperlipidemia continue Pravachol Mild hypokalemia discharge to rehab Med reviewed PERTINENT ROS: All other reviewed and negative other than HPI. MEDICATIONS: Current Facility-Administered Medications Medication Dose Route Frequency pravastatin 10 mg tab(s) (PRAVACHOL) 10 mg ORAL DAILY lisinopril 40 mg tab(s) (ZESTRIL) 40 mg ORAL DAILY amLODIPine 10 mg tab(s) (NORVASC) 10 mg ORAL DAILY furosemide 40 mg tab(s) (LASIX) 40 mg ORAL DAILY levothyroxine 150 mcg (SYNTHROID) 150 mcg ORAL DAILY nystatin 100,000 unit/gram crea (MYCOSTATIN) TOPICAL BID acetaminophen 1,000 mg tab(s) (TYLENOL) 1,000 mg ORAL q 8 H ondansetron orally disintegrating 4 mg tab(s) (ZOFRAN ODT) 4 mg ORAL q 6 H PRN Or ondansetron (PF) 4 mg injection (ZOFRAN) 4 mg INTRAVENOUS q 6 H PRN polyethylene glycol 3350 17 g packet 17 g ORAL DAILY aluminum-magnesium hydroxide-simethicone 200-200-20 mg/5 mL 30 mL 30 mL ORAL q 2 H PRN ferrous sulfate 325 mg tab(s) 325 mg ORAL DAILY wLUNCH ascorbic acid (vitamin C) 500 mg tab(s) (VITAMIN C) 500 mg ORAL BID w MEALS docusate sodium 100 mg cap(s) (COLACE) 100 mg ORAL BID aspirin, enteric coated 81 mg tab(s) 81 mg ORAL BID doxycycline hyclate 100 mg cap(s) (VIBRAMYCIN) 100 mg ORAL q 12 H 6a/6p traMADol 50-100 mg tab(s) (ULTRAM) 50-100 mg ORAL q 6 H PRN PHYSICAL EXAM: Blood pressure 121/69, pulse 66, temperature 36.7 ?C (98.1 ?F), temperature source Temporal, resp. rate 16, height 152.4 cm (5'), weight 91.2 kg (201 lb 1 oz), SpO2 97%. Body mass index is 39.27 kg/m?. GENERAL: Alert and oriented LUNGS: CTAB CARDIAC: RRR ABDOMEN: Abdomen soft, non-tender, BS normal, EXTREMITIES: no edema no calf tenderness CBC: Recent Labs 04/24/24 0649 WBC 8.29 RBC 3.41* HB 10.1* HCT 30.4* PLT 211 MCV 89.1 MCH 29.6 MPV 9.3 Coags: CMP: Recent Labs 04/24/24 0649 NA 138 K 4.2 CHLOR 102 CO2 27 BUN 12 CREAT 0.79 GLUC 111* CA 8.7 ANION 9 Cardiac Enzymes: Liver Function, Amylase, Lipase: No results for input(s): TPROT, ALB, ALT, AST, ALKPHOS, TBILI, AMYLASE, LIPASE, LACTATE in the last 24 hours. ABG's: No results for input(s): PH, PCO2, PO2, BE, HCO3, CO2CT, O2HB, COHB, MHGB, TEMP, PHTC, PCO2T, PO2T, O2AD in the last 24 hours. MG/PHOS: No results for input(s): MG, P in the last 24 hours. SIGNATURE: Byron Knight [facility] [id number] NoteHNO ID: [id number] Author: BYRON KNIGHT MD Service: General Internal Medicine Author Type: Physician Type: Progress Notes Filed: 04/24/2024 11:54 Note Text: INPATIENT PROGRESS NOTES Patient Name: Mónica Decker DATE of SERVICE: 04/24/2024 7:41 PRIMARY SERVICE: medicine INTERVAL HPI: Uneventful night, no nausea or vomiting. No lightheadedness or dizziness pain is well-controlled no confusion or hallucination ASSESSMENT AND PLAN: Encephalopathy, suspect due to medication, resolved pain medicine, Tylenol, and tramadol Osteoarthritis status post left total hip arthroplasty, DVT prophylaxis with aspirin Hypertension is stable Hypothyroidism currently on levothyroxine Hyperlipidemia continue Pravachol Mild hypokalemia Ready to discharge to rehab PERTINENT ROS: All other reviewed and negative other than HPI. MEDICATIONS: Current Facility-Administered Medications Medication Dose Route Frequency pravastatin 10 mg tab(s) (PRAVACHOL) 10 mg ORAL DAILY lisinopril 40 mg tab(s) (ZESTRIL) 40 mg ORAL DAILY amLODIPine 10 mg tab(s) (NORVASC) 10 mg ORAL DAILY furosemide 40 mg tab(s) (LASIX) 40 mg ORAL DAILY levothyroxine 150 mcg (SYNTHROID) 150 mcg ORAL DAILY nystatin 100,000 unit/gram crea (MYCOSTATIN) TOPICAL BID acetaminophen 1,000 mg tab(s) (TYLENOL) 1,000 mg ORAL q 8 H ondansetron orally disintegrating 4 mg tab(s) (ZOFRAN ODT) 4 mg ORAL q 6 H PRN Or ondansetron (PF) 4 mg injection (ZOFRAN) 4 mg INTRAVENOUS q 6 H PRN polyethylene glycol 3350 17 g packet 17 g ORAL DAILY aluminum-magnesium hydroxide-simethicone 200-200-20 mg/5 mL 30 mL 30 mL ORAL q 2 H PRN ferrous sulfate 325 mg tab(s) 325 mg ORAL DAILY wLUNCH ascorbic acid (vitamin C) 500 mg tab(s) (VITAMIN C) 500 mg ORAL BID w MEALS docusate sodium 100 mg cap(s) (COLACE) 100 mg ORAL BID aspirin, enteric coated 81 mg tab(s) 81 mg ORAL BID doxycycline hyclate 100 mg cap(s) (VIBRAMYCIN) 100 mg ORAL q 12 H 6a/6p traMADol 50-100 mg tab(s) (ULTRAM) 50-100 mg ORAL q 6 H PRN PHYSICAL EXAM: Blood pressure 151/74, pulse 76, temperature 36.6 ?C (97.9 ?F), temperature source Oral, resp. rate 20, height 152.4 cm (5'), weight 91.2 kg (201 lb 1 oz), SpO2 96%. Body mass index is 39.27 kg/m?. GENERAL: Alert and oriented LUNGS: CTAB CARDIAC: Normal S1 and S2; no rubs, murmurs, or gallops ABDOMEN: Abdomen soft, non-tender, BS normal, No masses or organomegaly EXTREMITIES: no edema CBC: Recent Labs 04/24/24 0649 WBC 8.29 RBC 3.41* HB 10.1* HCT 30.4* PLT 211 MCV 89.1 MCH 29.6 MPV 9.3 Coags: CMP: Recent Labs 04/24/24 0649 NA 138 K 4.2 CHLOR 102 CO2 27 BUN 12 CREAT 0.79 GLUC 111* CA 8.7 ANION 9 Cardiac Enzymes: Liver Function, Amylase, Lipase: No results for input(s): TPROT, ALB, ALT, AST, ALKPHOS, TBILI, AMYLASE, LIPASE, LACTATE in the last 24 hours. ABG's: No results for input(s): PH, PCO2, PO2, BE, HCO3, CO2CT, O2HB, COHB, MHGB, TEMP, PHTC, PCO2T, PO2T, O2AD in the last 24 hours. MG/PHOS: No results for input(s): MG, P in the last 24 hours. SIGNATURE: Byron Knight [facility] [id number] NoteHNO ID: [id number] Author: RICHARD FIELDS LISW Service: Care Management Author Type: Siphoner Type: Care Mgt Progress Note Filed: 04/24/2024 08:25 Note Text: CARE MANAGEMENT PROGRESS NOTE SERVICE DATE: 04/24/2024 SERVICE TIME: 8:23 AM LOS: 2 days Needs Prior to Discharge: To Be Determined;Other: See Comment;Discharge Transportation (medical clearance) EMR reviewed. [facility] is able to accept. Anticipate DC Friday after 3 INPT midnights have been met. SNF made aware. Unfinished envelope on chart. HENS completed. Pt will need medical transport scheduled at DC. SIGNATURE:Richard Fields MACHINE TANK OPERATORWALTER Gómez PATIENT NAME: Mónica Decker DATE: April 24, 2024 TIME: 8:23 AM PAGER/CONTACT #: [phone] NoteHNO ID: [id number] Author: CHELSEA MACKEY RN Service: Care Management Author Type: Registered Nurse Type: Care Mgt Progress Note Filed: 04/23/2024 16:11 Note Text: CARE MANAGEMENT PROGRESS NOTE SERVICE DATE: 04/23/2024 SERVICE TIME: 12:41 PM LOS: 1 day Needs Prior to Discharge: Facility or Agency Choices;Accepting Facility;Other: See Comment;Discharge Transportation (Medical Clearance) EMR reviewed. The patient is reportedly still confused. There has been no response in [facility] from [facility]. ABIDA ROY left a voice message with Nataliepetra Rod at [facility] ([phone]) requesting a response. A voice message was also left with the patient's brother Gerson requesting a return call for additional choices. A [facility] list of facilities was emailed to him yesterday. CM assigned will continue to follow. 1300-Additional SNF referrals sent to #1 [facility] and #2 [facility] per brother Gerson's preference. [facility] would be his 3rd choice for SNF. [facility] brother Gerson's facility of choice. Anticipate discharge Friday. CM assigned will continue to follow. SIGNATURE: Chelsea Mackey RN PATIENT NAME: Mónica Decker DATE: April 23, 2024 TIME: 12:40 PM PAGER/CONTACT #: [phone] NoteHNO ID: [id number] Author: BYRON KNIGHT MD Service: General Internal Medicine Author Type: Physician Type: Progress Notes Filed: 04/23/2024 09:57 Note Text: INPATIENT PROGRESS NOTES Patient Name: Mónica Decker DATE of SERVICE: 04/23/2024 9:00 PRIMARY SERVICE: medicine INTERVAL HPI: Intermittent transient visual hallucination.Mild confusion. ASSESSMENT AND PLAN: Encephalopathy, suspect due to medication, improving pain medicine, Tylenol, tramadol and Toradol Osteoarthritis status post left total hip arthroplasty, DVT prophylaxis with aspirin Hypertension is stable Hypothyroidism currently on levothyroxine Hyperlipidemia continue Pravachol Mild hypokalemia replace K PERTINENT ROS: All other reviewed and negative other than HPI. MEDICATIONS: Current Facility-Administered Medications Medication Dose Route Frequency pravastatin 10 mg tab(s) (PRAVACHOL) 10 mg ORAL DAILY lisinopril 40 mg tab(s) (ZESTRIL) 40 mg ORAL DAILY amLODIPine 10 mg tab(s) (NORVASC) 10 mg ORAL DAILY furosemide 40 mg tab(s) (LASIX) 40 mg ORAL DAILY levothyroxine 150 mcg (SYNTHROID) 150 mcg ORAL DAILY nystatin 100,000 unit/gram crea (MYCOSTATIN) TOPICAL BID lactated ringers iv infusion 100 mL/hr INTRAVENOUS CONTINUOUS acetaminophen 1,000 mg tab(s) (TYLENOL) 1,000 mg ORAL q 8 H keTORolac 15 mg injection (Toradol) 15 mg INTRAVENOUS q 6 H ondansetron orally disintegrating 4 mg tab(s) (ZOFRAN ODT) 4 mg ORAL q 6 H PRN Or ondansetron (PF) 4 mg injection (ZOFRAN) 4 mg INTRAVENOUS q 6 H PRN polyethylene glycol 3350 17 g packet 17 g ORAL DAILY aluminum-magnesium hydroxide-simethicone 200-200-20 mg/5 mL 30 mL 30 mL ORAL q 2 H PRN ferrous sulfate 325 mg tab(s) 325 mg ORAL DAILY wLUNCH ascorbic acid (vitamin C) 500 mg tab(s) (VITAMIN C) 500 mg ORAL BID w MEALS docusate sodium 100 mg cap(s) (COLACE) 100 mg ORAL BID aspirin, enteric coated 81 mg tab(s) 81 mg ORAL BID doxycycline hyclate 100 mg cap(s) (VIBRAMYCIN) 100 mg ORAL q 12 H 6a/6p traMADol 50-100 mg tab(s) (ULTRAM) 50-100 mg ORAL q 6 H PRN PHYSICAL EXAM: Blood pressure 161/70, pulse 78, temperature 36.4 ?C (97.5 ?F), temperature source Oral, resp. rate 20, height 152.4 cm (5'), weight 91.2 kg (201 lb 1 oz), SpO2 95%. Body mass index is 39.27 kg/m?. GENERAL: Alert LUNGS: CTAB CARDIAC: Normal S1 and S2; no rubs, murmurs, or gallops ABDOMEN: Abdomen soft, non-tender, BS normal, No masses or organomegaly EXTREMITIES: no edema CBC: Recent Labs 04/23/24 0533 WBC 9.80 RBC 3.79* HB 11.4* HCT 33.6* PLT 221 MCV 88.7 MCH 30.1 MPV 9.5 Coags: CMP: Recent Labs 04/23/24 0533 NA 139 K 3.6* CHLOR 102 CO2 25 BUN 9 CREAT 0.71 GLUC 110* CA 9.0 ANION 12 Cardiac Enzymes: Liver Function, Amylase, Lipase: No results for input(s): TPROT, ALB, ALT, AST, ALKPHOS, TBILI, AMYLASE, LIPASE, LACTATE in the last 24 hours. ABG's: Recent Labs 04/22/24 1213 PH 7.47* PCO2 32* PO2 78* BE 0 HCO3 23 O2HB 94* COHB 1.2 MHGB <1.0 MG/PHOS: No results for input(s): MG, P in the last 24 hours. SIGNATURE: Byron Knight [facility] [id number] NoteHNO ID: [id number] Author: VANESSA SPEAR PA-C Service: Orthopaedic Surgery Author Type: Physician Miniature Set Builder Type: Progress Notes Filed: 04/23/2024 08:18 Note Text: POSTOP NOTE ORTHOPAEDIC SURGERY SERVICE DATE: 04/23/2024 SERVICE TIME: 8:16 AM IMPRESSION/PLAN: S/P Procedure(s) (LRB): ROBOTIC ASSISTED TOTAL HIP ARTHROPLASTY (Left) on 04/21/2024 Physical Therapy recommending SNF PWB 50% LLE, posterior hip precautions DVT prophylaxis: Intermittent pneumatic compression device (IPCD) and ASA 81 BID Pain control Antibiotics: doxy 100 mg BID x 2 weeks IM consult for medical mgmt Case Management for discharge planning Plan of care discussed with: Provider, RN, Patient. Patient Active Hospital Problem List: Post-operative state (04/22/2024) S/P total left hip arthroplasty (04/22/2024) POST OPERATIVE COMPLICATIONS: Complicated by confusion SUBJECTIVE: NAEO. Therapy was limited yesterday due to confusion suspected to be secondary to pain medication which has been discontinued. Well Controlled hip pain. Denies other complaints. OBJECTIVE: VITAL SIGNS: BP 163/77 Pulse 88 Temp 36.9 ?C (98.4 ?F) (Oral) Resp 16 Ht 152.4 cm (5') Wt 91.2 kg (201 lb 1 oz) SpO2 94% BMI 39.27 kg/m? INTAKE AND OUTPUT: Intake/Output Summary (Last 24 hours) at 04/23/2024 0816 Last data filed at 04/23/2024 0538 Gross per 24 hour Intake 4063 ml Output 3250 ml Net 813 ml LABS: Hemoglobin Date Value Ref Range Status 04/23/2024 11.4 (L) 11.5 - 15.5 g/dL Final 04/22/2024 11.8 11.5 - 15.5 g/dL Final Hematocrit Date Value Ref Range Status 04/23/2024 33.6 (L) 36.0 - 46.0 % Final 04/22/2024 34.7 (L) 36.0 - 46.0 % Final Platelet Count Date Value Ref Range Status 04/23/2024 221 150 - 400 k/uL Final 04/22/2024 212 150 - 400 k/uL Final WBC Date Value Ref Range Status 04/23/2024 9.80 3.70 - 11.00 k/uL Final 04/22/2024 10.85 3.70 - 11.00 k/uL Final Creatinine Date Value Ref Range Status 04/23/2024 0.71 0.58 - 0.96 mg/dL Final 04/22/2024 0.79 0.58 - 0.96 mg/dL Final Potassium Date Value Ref Range Status 04/23/2024 3.6 (L) 3.7 - 5.1 mmol/L Final 04/22/2024 3.7 3.7 - 5.1 mmol/L Final VTE Prophylaxis: Active VTE Risk Category Order: 04/21/24 1130 VTE RISK CATEGORY: SURGICAL HIGH RISK ([place], [place]) Active VTE Medication Orders: Anticoagulant AND Antiplatelet Medications (From admission, onward) Start Dose Route Frequency Last Action Ordered Stop 04/22/24 0900 aspirin, enteric coated 81 mg tab(s) (Surgical Risk Categories) 81 mg ORAL 2 TIMES DAILY Given, 04/22 205504/21/24 1118 -- Active VTE Prophylaxis Orders: 04/21/24 1130 PNEUMATIC COMPRESSION STOCKINGS ([place], [place]) 04/21/24 1130 ACTIVITY - MOBILIZE PATIENT ([place], [place]) PHYSICAL EXAMINATION: Left Lower Extremity: Dorsalis pedis pulses palpable. Posterior tibial pulses palpable. Dorsi flexion 5/5. Plantar flexion 5/5. Extensor hallucis extension: 5/5. Sensory intact to light touch L1-S1. Dressing clean, dry, and intact. Surgical site no drainage and Silverlon intact. DATA: Diagnostic tests reviewed for today's visit: Most recent labs and imaging results. SIGNATURE: Vanessa Spear PA-C PATIENT NAME: Mónica Decker DATE: April 23, 2024 TIME: 8:16 AM The patient has undergone major orthopedic surgery and participating in therapy. Pain cannot be managed within an average of 30 MED per day. Patient requiring average of higher than 30 MED per day in order to control pain and allow patient to actively and safely participate in therapy and this is the lowest dose consistent with patient's medical condition. Non-narcotic medication options have been discussed. In addition, the patient has been advised of the benefits and risks of the opioid (including the potential for addiction). Patient demonstrated understanding of risks versus benefits.[id number] NoteHNO ID: [id number] Author: BYRON KNIGHT MD Service: General Internal Medicine Author Type: Physician Type: Progress Notes Filed: 04/22/2024 13:02 Note Text: INPATIENT PROGRESS NOTES Patient Name: Mónica Decker DATE of SERVICE: 04/22/2024 PRIMARY SERVICE: medicine INTERVAL HPI: Patient is confused and having a hallucination ASSESSMENT AND PLAN: Encephalopathy, suspect due to medication Discussed with brother patient has no history of cognitive impairment Discontinue pain medicine other than Tylenol, tramadol and Toradol DC scopolamine Osteoarthritis status post left total hip arthroplasty, DVT prophylaxis with aspirin Hypertension is stable Hypothyroidism currently on levothyroxine Hyperlipidemia continue Pravachol History of recent urinary tract infection patient did not finish the course of antibiotics will repeat UA Plan of care discussed with: Provider, RN, Patient. PERTINENT ROS: All other reviewed and negative other than HPI. MEDICATIONS: Current Facility-Administered Medications Medication Dose Route Frequency scopolamine - VERIFY patch OTHER q 8 H scopolamine - REMOVE PATCH OTHER ONCE pravastatin 10 mg tab(s) (PRAVACHOL) 10 mg ORAL DAILY lisinopril 40 mg tab(s) (ZESTRIL) 40 mg ORAL DAILY amLODIPine 10 mg tab(s) (NORVASC) 10 mg ORAL DAILY furosemide 40 mg tab(s) (LASIX) 40 mg ORAL DAILY levothyroxine 150 mcg (SYNTHROID) 150 mcg ORAL DAILY nystatin 100,000 unit/gram crea (MYCOSTATIN) TOPICAL BID lactated ringers iv infusion 100 mL/hr INTRAVENOUS CONTINUOUS acetaminophen 1,000 mg tab(s) (TYLENOL) 1,000 mg ORAL q 8 H keTORolac 15 mg injection (Toradol) 15 mg INTRAVENOUS q 6 H ondansetron orally disintegrating 4 mg tab(s) (ZOFRAN ODT) 4 mg ORAL q 6 H PRN Or ondansetron (PF) 4 mg injection (ZOFRAN) 4 mg INTRAVENOUS q 6 H PRN polyethylene glycol 3350 17 g packet 17 g ORAL DAILY aluminum-magnesium hydroxide-simethicone 200-200-20 mg/5 mL 30 mL 30 mL ORAL q 2 H PRN ferrous sulfate 325 mg tab(s) 325 mg ORAL DAILY wLUNCH ascorbic acid (vitamin C) 500 mg tab(s) (VITAMIN C) 500 mg ORAL BID w MEALS docusate sodium 100 mg cap(s) (COLACE) 100 mg ORAL BID aspirin, enteric coated 81 mg tab(s) 81 mg ORAL BID doxycycline hyclate 100 mg cap(s) (VIBRAMYCIN) 100 mg ORAL q 12 H 6a/6p traMADol 50-100 mg tab(s) (ULTRAM) 50-100 mg ORAL q 6 H PRN PHYSICAL EXAM: Patient Vitals for the past 24 hrs: BP Temp Temp src Pulse Resp SpO2 Height Weight 04/22/24 1237 122/92 36.8 ?C (98.2 ?F) Axillary 86 18 97 % -- -- 04/22/24 0720 149/59 36.5 ?C (97.7 ?F) Oral 78 20 96 % -- -- 04/22/24 0338 148/57 36.7 ?C (98 ?F) Oral 75 19 96 % -- -- 04/22/24 0028 138/68 -- -- 60 -- -- -- -- 04/22/24 0016 171/55 36.6 ?C (97.9 ?F) Tympanic 75 20 97 % -- -- 04/21/24 1916 143/86 36.3 ?C (97.3 ?F) Oral 81 16 97 % -- -- 04/21/24 1854 -- -- -- -- -- -- 152.4 cm (5') 91.2 kg (201 lb 1 oz) 04/21/24 1740 147/64 36.6 ?C (97.8 ?F) Temporal Art 71 16 96 % -- -- Body mass index is 39.27 kg/m?. GENERAL: Alert NECK: No jugulovenous distention LUNGS: Lungs clear to auscultation, CARDIAC: Normal S1 and S2; no rubs, murmurs, or gallops ABDOMEN: Abdomen soft, non-tender, BS normal, No masses or organomegaly EXTREMITIES: no edema CBC: Recent Labs 04/22/24 0522 WBC 10.85 RBC 3.97 HB 11.8 HCT 34.7* PLT 212 MCV 87.4 MCH 29.7 MPV 9.5 Coags: CMP: Recent Labs 04/22/24 0522 NA 137 K 3.7 CHLOR 102 CO2 22 BUN 13 CREAT 0.79 GLUC 125* CA 9.0 ANION 13 Cardiac Enzymes: Liver Function, Amylase, Lipase: No results for input(s): TPROT, ALB, ALT, AST, ALKPHOS, TBILI, AMYLASE, LIPASE, LACTATE in the last 24 hours. ABG's: Recent Labs 04/22/24 1213 PH 7.47* PCO2 32* PO2 78* BE 0 HCO3 23 O2HB 94* COHB 1.2 MHGB <1.0 MG/PHOS: No results for input(s): MG, P in the last 24 hours. SIGNATURE: Byron Knight [facility] [id number] NoteHNO ID: [id number] Author: CHELSEA MACKEY RN Service: Care Management Author Type: Registered Nurse Type: Care Mgt Progress Note Filed: 04/22/2024 12:20 Note Text: CARE MANAGEMENT PROGRESS NOTE SERVICE DATE: 04/22/2024 SERVICE TIME: 12:16 PM LOS: 0 days Needs Prior to Discharge: Accepting Facility;Facility or Agency Choices;Discharge Transportation;Other: See Comment (Medical Clearance) [place] of Choice Given: Yes Reason Not Given: Unable to complete with this assessment - revisit Level of Care Discussed: Senior Care Facility Financial Disclosure Provided: Yes Financial Disclosure Comments: Discussed with brother Gerson Provider List: Senior Care Facility Provider list within the patient's requested geographic area shared with the patient/family: Yes within: 15 miles of zip code: [address] Quality and resource use metrics shared with the patient that are relevant to the patient's goals of care and treatment preferences:: Yes Metrics: Skin Integrity;Functional Status;Incidence of [place] Falls EMR reviewed. PT and OT are recommending SNF. The patient is significantly confused today and not able to participate in discharge planning. RN KIRILL spoke to the patient's brother Gerson via phone regarding discharge planning needs. 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 Gerson is agreeable to SNF and requested a referral to [facility] [place]. A [facility] list was also emailed to Gerson to review for additional choices. CM assigned will continue to follow. SIGNATURE: Chelsea Mackey RN PATIENT NAME: Mónica Decker DATE: April 22, 2024 TIME: 12:16 PM PAGER/CONTACT #: [phone] NoteHNO ID: [id number] Author: CHELSEA MACKEY RN Service: Care Management Author Type: Registered Nurse Type: Care Mgt Initial Assessment Filed: 04/22/2024 12:16 Note Text: CARE MANAGEMENT: ASSESSMENT AND DISCHARGE PLAN SERVICE DATE: April 22, 2024 SERVICE TIME: 8:55 AM PCP: Mateo Marmolejo MD Primary Contact: Extended Emergency Contact Information Primary Emergency Contact: Gerson Decker Mobile Relation: Brother Admission Status: Extended Recovery Insurance Provider: MEDICARE A AND B Discharge Planning requested by: Per Department Practice Potential Transition Plans Home;Home Care;Home OT/PT;Senior Care Facility/Intermediate Care Facility;To Be Determined Advance Directives Current Advance Directive: None Administrative Assistant Coordinator Attempted to Assist with AD Completion: Yes Action: Patient Unwilling Current Living Arrangements and Support Lives with: Alone Type of Residence: Private Residence (House) Does the patient have to climb stairs at home?: No Support: Family members How do you manage to accomplish the following: Independent: Ambulation;Bathe/Shower;Dress;Meals/Meal Prep;Going to the bathroom;Medication Management Needs Assistance: Transportation to appointments/community Current Services/Equipment Current Post-Acute Service(s): DME Current DME Type: Cane, Walker, Crutches, Elevated toilet seat Discharge Planning Patient Goal(s): Be able to go home, General wellness, Better mobility [place] of Choice Explained: [place] of Choice Given: No Reason Not Given: Unable to complete with this assessment - revisit Are you interested in bedside delivery of your medications? Yes Discharge Planning Participant(s): Patient Caregiver Assessment: Caregiver is ready, willing and able to meet the patient's needs as recommended by the inter-professional team: Other: See Comment (TBD) Transport at Discharge: Transportation Arrangements: To Be Determined Needs Prior to Discharge: Needs Prior to Discharge: To Be Determined;Accepting Facility;Facility or Agency Choices;Home Care Order;OT/PT Evaluation;Other: See Comment (Medical Clearance) Post-Acute Discharge Plan: EMR reviewed and CM assessment complete. Patient is S/P left hip arthroplasty on 04/21. 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 He brother Gerson assists as needed. PT and OT evals are pending. CM assigned will continue to follow. SIGNATURE: Chelsea Mackey RN PATIENT NAME: Mónica Decker DATE: April 22, 2024 TIME: 8:55 AM CONTACT #: [phone] ID: [id number] Author: VANESSA SPEAR PA-C Service: Orthopaedic Surgery Author Type: Physician Miniature Set Builder Type: Progress Notes Filed: 04/22/2024 08:28 Note Text: POSTOP NOTE ORTHOPAEDIC SURGERY SERVICE DATE: 04/22/2024 SERVICE TIME: 7:40 AM IMPRESSION/PLAN: S/P Procedure(s) (LRB): ROBOTIC ASSISTED TOTAL HIP ARTHROPLASTY (Left) on 04/21/2024 Physical Therapy evaluation PWB 50% LLE, posterior hip precautions DVT prophylaxis: Intermittent pneumatic compression device (IPCD) and ASA 81 BID Pain control Antibiotics: doxy 100 mg BID x 2 weeks IM consult for medical mgmt Case Management for discharge planning Plan of care discussed with: Provider, RN, Patient. Patient Active Hospital Problem List: No active hospital problems. POST OPERATIVE COMPLICATIONS: Complicated by uneventful/none SUBJECTIVE: Overnight events noted. Well Controlled hip pain. Denies incisional pain. OBJECTIVE: VITAL SIGNS: BP 149/59 Pulse 78 Temp 36.5 ?C (97.7 ?F) (Oral) Resp 20 Ht 152.4 cm (5') Wt 91.2 kg (201 lb 1 oz) SpO2 96% BMI 39.27 kg/m? INTAKE AND OUTPUT: Intake/Output Summary (Last 24 hours) at 04/22/2024 0824 Last data filed at 04/22/2024 0338 Gross per 24 hour Intake 1865.09 ml Output 1825 ml Net 40.09 ml LABS: Hemoglobin Date Value Ref Range Status 04/22/2024 11.8 11.5 - 15.5 g/dL Final 04/05/2024 12.9 11.5 - 15.5 g/dL Final Hematocrit Date Value Ref Range Status 04/22/2024 34.7 (L) 36.0 - 46.0 % Final 04/05/2024 38.9 36.0 - 46.0 % Final Platelet Count Date Value Ref Range Status 04/22/2024 212 150 - 400 k/uL Final 04/05/2024 263 150 - 400 k/uL Final WBC Date Value Ref Range Status 04/22/2024 10.85 3.70 - 11.00 k/uL Final 04/05/2024 7.39 3.70 - 11.00 k/uL Final Creatinine Date Value Ref Range Status 04/22/2024 0.79 0.58 - 0.96 mg/dL Final 04/05/2024 0.92 0.58 - 0.96 mg/dL Final Potassium Date Value Ref Range Status 04/22/2024 3.7 3.7 - 5.1 mmol/L Final 04/05/2024 4.4 3.7 - 5.1 mmol/L Final VTE Prophylaxis: Active VTE Risk Category Order: 04/21/24 1130 VTE RISK CATEGORY: SURGICAL HIGH RISK ([place]) Active VTE Medication Orders: Anticoagulant AND Antiplatelet Medications (From admission, onward) Start Dose Route Frequency Last Action Ordered Stop 04/22/24 0900 aspirin, enteric coated 81 mg tab(s) (Surgical Risk Categories) 81 mg ORAL 2 TIMES DAILY Ordered 04/21/24 1118 -- Active VTE Prophylaxis Orders: 04/21/24 1130 PNEUMATIC COMPRESSION STOCKINGS ([place], [place]) 04/21/24 1130 ACTIVITY - MOBILIZE PATIENT ([place], [place]) PHYSICAL EXAMINATION: Left Lower Extremity: Dorsalis pedis pulses palpable. Posterior tibial pulses palpable. Dorsi flexion 5/5. Plantar flexion 5/5. Extensor hallucis extension: 5/5. Sensory intact to light touch L1-S1. Dressing clean, dry, and intact. Surgical site no drainage and [place] intact. DATA: Diagnostic tests reviewed for today's visit: Most recent labs and imaging results. SIGNATURE: Vanessa Spear PA-C PATIENT NAME: Mónica Decker DATE: April 22, 2024 TIME: 8:24 AM The patient has undergone major orthopedic surgery and participating in therapy. Pain cannot be managed within an average of 30 MED per day. Patient requiring average of higher than 30 MED per day in order to control pain and allow patient to actively and safely participate in therapy and this is the lowest dose consistent with patient's medical condition. Non-narcotic medication options have been discussed. In addition, the patient has been advised of the benefits and risks of the opioid (including the potential for addiction). Patient demonstrated understanding of risks versus benefits.[id number] NoteHNO ID: [id number] Author: RYAN BURROWS RN Service: Nursing Author Type: Registered Nurse Type: Progress Notes Filed: 04/22/2024 07:29 Note Text: REAL ESTATE DEVELOPER notified about pt hallucinating and mild agitation, vs stable. Orders obtained, pt placed on tele. 0615 Pt yelling, refusing to take medications, restless. REAL ESTATE DEVELOPER notified. Advice to give pain medications and have surgical team assess in the morning. Pt was moved to a closer room by nurses station for safety.[id number] NoteHNO ID: [id number] Author: LUL OSUNA RN Service: Nursing Author Type: Registered Nurse Type: Nursing Progress Note Filed: 04/21/2024 10:20 Note Text: Xray at bedside for post op left hip xray.[id number] NoteHNO ID: [id number] Author: ESTHER NIX SRNA Service: Nursing Author Type: Student Type: Anesthesia Procedure Notes Filed: 04/21/2024 09:11 Note Text: ANESTHESIOLOGY PROCEDURE NOTE PIV General Information Procedure Start Time/Medication Administration: 04/21/2024 8:30 AM Procedure End Time: 04/21/2024 8:40 AM Patient Location: OR Staffing SRNA: Esther Nix SRNA Performed by: ALYX Preparation Sterility Preparation: hand hygiene performed prior to procedure, surgical cap used, mask used, skin prep agent completely dried prior to procedure Site Prep: alcohol Procedure Details Indication: need for IV access Needle Size/Type: 20 gauge angiocath Orientation: Right Location: Wrist Imaging Guidance Used: No SIGNATURE: ALYX Hammond PATIENT NAME: Mónica Decker DATE: April 21, 2024 TIME: 9:11 AM CSN: [id number] NoteHNO ID: [id number] Author: ESTHER NIX SRNA Service: Nursing Author Type: Student Type: Anesthesia Procedure Notes Filed: 04/21/2024 08:11 Note Text: ANESTHESIOLOGY PROCEDURE NOTE Airway General Information Procedure Start Time/Medication Administration: 04/21/2024 7:32 AM Procedure End Time: 04/21/2024 7:36 AM Patient location during procedure: OR Timeout Performed Pre-procedure: timeout performed Consent Obtained: Yes Patient identity confirmed: arm band and patient Staffing SRNA: Esther Nix SRNA Performed by: ALYX Indications and Patient Condition Indications for airway management: anesthesia Preoxygenated: yes anesthesia circuit Patient position: sniffing Method: asleep Difficult Mask: No Final Airway Details Final airway type: endotracheal airway Final Endotracheal Airway: ETT Cuffed: yes Successful intubation technique: direct laryngoscopy Endotracheal tube insertion site: oral Blade: Kesha Blade size: #4 ETT size (mm): 7.0 Measured from: lips Measurement (cm): 22 Placement verified by: chest auscultation and capnometry Cormack-Lehane Classification: grade I - full view of glottis Number of attempts at approach: 1 Airway not difficult SIGNATURE: ALYX Hammond PATIENT NAME: Mónica Decker DATE: April 21, 2024 TIME: 8:10 AM CSN: [id number] Telephone encounter Note* Telephone Encounter - Zulma Burgos RN - 04/16/2024 9:49 AM EDT Patient calls upset that [facility] prescription for nystatin cream. Last filled on 03/30/2024 per patient. Contacted [facility]. Spoke to Donna. Too soon for insurance to fill but able to fill with discount card at the same cost. Call placed to patient and notified. Patient verbalizes understanding and will fruit or nut picker from pharmacy later today. Zulma Burgos RN [facility]06-21-2024 Miscellaneous Notes* Telephone Encounter - Zulma Burgos RN - 04/16/2024 9:49 AM EDT Patient calls upset that [facility] prescription for nystatin cream. Last filled on 03/30/2024 per patient. Contacted [facility]. Spoke to Donna. Too soon for insurance to fill but able to fill with discount card at the same cost. Call placed to patient and notified. Patient verbalizes understanding and will fruit or nut picker from pharmacy later today. Zulma Burgos RN documented in this encounterOhio[facility] History of Present illness Narrative* Herminio Lara APRN.CNP - 04/12/2024 12:02 PM EDT This is a preop wound check appointment for Mónica. He is currently scheduled for robotically assisted left total hip arthroplasty with Dr. Deluna next Friday. She was seen in preadmission testing and was noted to have erythema and open wounds along her inguinal folds. She most recently saw her family physician's office and was started on topical nystatin as well as Diflucan. She is here today per our request to see if we need to delay surgery. Left inguinal fold with no erythema. She does have a small open area measuring approximately 0.25 cm in length. There is no active drainage from this and no surrounding erythema. Assessment: Tinea cruris with wound This appears to be chronic in nature with notes going back as far as 10 years. At this point she has completed a full weeks course of nystatin powder as well as Diflucan. Comparing my notes today compared to family physician's office it seems like this is improving. This area is far from the robotic incisions needed to proceed with surgery. We will plan to prep this area outside of the surgical area and proceed as planned. Of note, these were present during her contralateral operative side roughly 10 months ago. She recovered without incident from this. Will likely plan to cover her for a week of extended oral antibiotics to prevent infection. Last item, she did have a urine culture popup positive and she was sent in Cipro per the preadmission testing physician ict sales assistant. Instructed her she needs to pick this up and start this today Herminio Lara APRN.CNP Orthopaedic Surgery documented in this encounterOhio[facility]06-[facility]24 Telephone encounter Note * Telephone Encounter - Kasi Ignacio RN - 04/12/2024 9:59 AM EDT Spoke with pt and reviewed urine culture results. Instructed to begin Cipro today. Pt verbalized understanding. Kasi Ignacio RN April 12, 2024 10:00 AM' [facility]-17[facility] Miscellaneous Notes* Telephone Encounter - Kasi Ignacio RN - 04/12/2024 9:59 AM EDT Spoke with pt and reviewed urine culture results. Instructed to begin Cipro today. Pt verbalized understanding. Kasi Ignacio RN April 12, 2024 10:00 AM' * Addendum Note - Jolanta Dumont APRN.CNP - 04/12/2024 8:49 AM EDTAddended by: JOLANTA DUMONT on: 04/12/2024 08:49 AM Modules accepted: Orders * Telephone Encounter - Jolanta Dumont APRN.CNP - 04/12/2024 8:48 AM EDT Atb ordered please call and inform pt to fruit or nut picker. Please also notify her to hold fluconazole and Multi-vitamin while taking atb. * Telephone Encounter - Kasi Ignacio RN - 04/12/2024 7:52 AM EDT Urine culture 04/05/2024: 10,000 -<50,000 CFU/ml Proteus mirabilis Abnormal Good morning, Please review urine culture results from 04/05/2024. Kasi Ignacio RN April 12, 2024 7:53 AM documented in this encounterOhio[facility]06-[facility]-2024 Note* Addendum Note - Jolanta Dumont APRN.CNP - 04/12/2024 8:49 AM EDTAddended by: JOLANTA DUMONT on: 04/12/2024 08:49 AM Modules accepted: Orders [facility]06-17-2024 Telephone encounter Note* Telephone Encounter - Jolanta Dumont APRN.CNP - 04/12/2024 8:48 AM EDT Atb ordered please call and inform pt to fruit or nut picker. Please also notify her to hold fluconazole and Multi-vitamin while taking atb. [facility]06-17-2024 Telephone encounter Note* Telephone Encounter - Kasi Ignacio RN - 04/12/2024 7:52 AM EDT Urine culture 04/05/2024: 10,000 -<50,000 CFU/ml Proteus mirabilis Abnormal Good morning, Please review urine culture results from 04/05/2024. Kasi Ignacio RN April 12, 2024 7:53 AM [facility]06-14-2024 Telephone encounter Note* Telephone Encounter - Rachna Orr - 04/09/2024 3:02 PM EDT Patient scheduled with Jose for Friday04-12-2024. Rachna Mix Sedc [facility]06-14-2024 Miscellaneous Notes* Telephone Encounter - Rachna Orr - 04/09/2024 3:02 PM EDT Patient scheduled with Jose for Friday04-12-2024. Rachnadameon Soto Med Sedc * Telephone Encounter - Rachna Orr - 04/09/2024 2:46 PM EDT Called and left a detailed message on patient's brother's phone to have Mónica call the office to make an appointment next week with Jose for follow-up regarding her appointment with pre-admission testing. Rachna Irahetaangela Jay * Telephone Encounter - Myrtleangela Dominguez Misty Rachna - 04/09/2024 1:27 PM EDT Tried calling patient and phone just rang and rang. Was unable to leave a message. Will try again later. Rachna Irahetaangela Jay * Telephone Encounter - Rachna Orr - 04/09/2024 1:15 PM EDT Images from the original note were not included. Herminio Lara APRN.FINISHING TUNNEL OPERATOR You40 minutes ago (12:33 PM) Will you please add her next week just to check to see if it s improving? * Telephone Encounter - Brittany Mix Misty Rachna - 04/09/2024 11:41 AM EDT I received a call from one of the resource nurses in pre-testing department. They want to make sureyou have seen this and reviewed it. Her surgery is coming up and they didn't want you to have any surprises day of surgery. Rachna Brittany Jay * Telephone Encounter - Jolanta Dumont APRN.CNP - 04/06/2024 10:[address] Deluna pt seen for PACC yesterday and I had her f/u with PCP for excoriated inguinal areas. Shescheduled for COTY with you 04/21/2024.Please advise. ASSESSMENT/PLAN: 1. Tinea cruris - ICD9: 110.3, ICD10: B35.6 (primary diagnosis) - Keep area of concern very dry. Ok to use OTC antifungal powder if area is moist Start diflucan daily x7 days and topical nystatin. 2. Open wound - ICD9: 879.8, ICD10: T14.8XXA Low suspicion of current secondary bacterial infection but with upcoming surgery, will place on 5 day prescription for duricef. Discussed wound clinic with patient. Will consider if not healing. Alida Jaeger PA-C documented in this encounterOhio[facility]06-[facility] Telephone encounter Note * Telephone Encounter - Rachna Orr - 04/09/2024 2:46 PM EDT Called and left a detailed message on patient's brother's phone to have Mónica call the office to make an appointment next week with Jose for follow-up regarding her appointment with pre-admission testing. Rachna Jay [facility]06-14-2024 Telephone encounter Note* Telephone Encounter - Rachna Orr - 04/09/2024 1:27 PM EDT Tried calling patient and phone just rang and rang. Was unable to leave a message. Will try again later. Rachna Jay [facility]06-14-2024 Telephone encounter Note* Telephone Encounter - Rachna Orr - 04/09/2024 1:15 PM EDT Images from the original note were not included. Herminio Lara APRN.FINISHING TUNNEL OPERATOR You40 minutes ago (12:33 PM) Will you please add her next week just to check to see if it s improving? [facility]-14-[facility] Telephone encounter Note* Telephone Encounter - Rachna Orr - 04/09/2024 11:41 AM EDT I received a call from one of the resource nurses in pre-testing department. They want to make sureyou have seen this and reviewed it. Her surgery is coming up and they didn't want you to have any surprises day of surgery. Rachna Jay [facility]06-11-2024 Telephone encounter Note* Telephone Encounter - Jolanta Dumont APRN.FINISHING TUNNEL OPERATOR - 04/06/2024 10:[address] Deluna pt seen for PACC yesterday and I had her f/u with PCP for excoriated inguinal areas. Shescheduled for COTY with you 04/21/2024.Please advise. ASSESSMENT/PLAN: 1. Tinea cruris - ICD9: 110.3, ICD10: B35.6 (primary diagnosis) - Keep area of concern very dry. Ok to use OTC antifungal powder if area is moist Start diflucan daily x7 days and topical nystatin. 2. Open wound - ICD9: 879.8, ICD10: T14.8XXA Low suspicion of current secondary bacterial infection but with upcoming surgery, will place on 5 day prescription for duricef. Discussed wound clinic with patient. Will consider if not healing. Alida Jaeger PA-C [facility] Work Phone: [phone] History of Present illness Narrative* Alida Jaeger PA-C - 04/05/2024 2:00 PM EDT Chief Complaint Patient presents with: Derm Problem: Patient states she has had open sores in the groin area for approximately 10 years, these began when she started wearing over night pads, states there is often bleeding and clear drainage HPI Mónica Decker is a 74 year old female who presents here today for Above Complaints.. Patient reports groin rash for years. Some sore areas. States it comes and goes. Feels raw. Past medical history, appointments, medications, allergies reviewed. Previous Medical History PAST MEDICAL HISTORY Diagnosis Date 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 01/24/2021 Adenomatous colon polyp Allergic rhinitis 07/08/2005 Bilateral hip pain 06/05/2023 Dystrophic nail 01/24/2021 multiple bilateral toes. Elevated hemoglobin A1c 08/27/2018 Essential hypertension, benign 07/08/2005 Fracture left forearm and right radial head Hammer toes of both feet 01/24/2021 Hyperlipidemia, mixed 02/05/2018 As of 02/05/18 patient declines statin therapy. Medicare annual wellness visit, subsequent 08/27/2018 Medicare part B: 02/24/2014 last done: 08/27/2019 Morbid (severe) obesity due to excess calories (HCC) 02/06/2006 OAB (overactive bladder) 12/19/2020 Declines medication as of 12/19/20 Obesity, Class II, BMI 35-39.9 02/19/2021 SANDRA (obstructive sleep apnea) 07/08/2005 Had corrective surgery Personal history of colonic polyps 03/14/2016 Postsurgical hypothyroidism 09/04/2005 Primary osteoarthritis of both hips 06/20/2015 Primary osteoarthritis of both knees 06/20/2015 Previous Surgical History PAST SURGICAL HISTORY Procedure Laterality Date AMPUTATION TOE,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 ARTHROSCOPY KNEE DIAGNOSTIC W/WO SYNOVIAL BX SPX Arthroscopy, knee COLONOSCOPY 05/30/2022 Tubular Adenoma-repeat in 3 years COLONOSCOPY FLX DX W/COLLJ SPEC WHEN PFRMD years ago Colonoscopy COLONOSCOPY FLX DX W/COLLJ SPEC WHEN PFRMD 10/13/2013 Colonoscopy COLONOSCOPY FLX DX W/COLLJ SPEC WHEN PFRMD 03/14/2016 Colonoscopy COLONOSCOPY FLX DX W/COLLJ SPEC WHEN PFRMD 11/09/2018 Colonoscopy COLSC FLX W/RMVL OF TUMOR POLYP LESION SNARE TQ 06/15/2010 PAST SURGICAL HISTORY OF 1960 bladder surgery to enlarge opening PAST SURGICAL HISTORY OF uvulectomy for SANDRA SIGMOIDOSCOPY FLX DX W/COLLJ SPEC BR/WA IF PFRMD 12/06/2013 Sigmoidoscopy, flexible THYROIDECTOMY TOTAL/COMPLETE 2005 TOTAL HIP REPLACEMENT Right 06/25/2023 Family History FAMILY HISTORY Problem Relation Age of Onset Heart Father fluid on heart Glaucoma Father Hypertension Mother Stroke Brother Strabismus Brother Detached Retina Brother Patient Allergies ALLERGIES Allergen Reactions Latex Unknown Current Medications Current Outpatient Medications on File Prior to Visit Medication Sig levothyroxine (LEVOXYL) 150 mcg tablet Take 1 tablet by mouth once daily. Mon- Sat and 1/2 a tab on Friday. lisinopril (ZESTRIL) 40 mg tablet Take 1 tablet by mouth once daily. amLODIPine (NORVASC) 10 mg tablet Take 1 tablet by mouth once daily. furosemide (LASIX) 40 mg tablet Take 1 tablet by mouth once daily. amoxicillin (AMOXIL) 500 mg capsule Please take 4 capsules by mouth 1 (one) hour prior to your dental appointment. naproxen sodium (ALEVE) 220 mg cap Take by mouth as needed. ascorbic acid, vitamin C, (VITAMIN C) 500 mg tablet Take 1 tablet by mouth twice daily with meals for 28 doses. pravastatin (PRAVACHOL) 10 mg tablet Take 1 tablet by mouth once daily. Lactobac no.41/Bifidobact no.7 (PROBIOTIC-10 ORAL) Take 1-2 tablets by mouth once daily. OTC PRODUCT Takes beet powder daily cholecalciferol, vitamin D3, (VITAMIN D3 ORAL) Take 1 tablet by mouth once daily. COLLAGEN MISC 1 tablet once daily. Collagen blend + #2 omega-3 fatty acids 1,000 mg cap Take 1 capsule by mouth three times daily. COENZYME Q10 60 MG CAP Take one(1) tablet daily. multivitamins w-minerals(DAILY MULTIVITAMIN-MINERALS TAB) Take one(1) tablet daily. No current facility-administered medications on file prior to visit. Social History Social History Tobacco Use Smoking status: Never Smokeless tobacco: Never Tobacco comments: Mom used to smoke, quit 2011 Vaping Use Vaping Use: Never used Substance Use Topics Alcohol use: No Drug use: No Review of Symptoms REVIEW OF SYSTEMS See hpi EXAM: BP 126/58 Pulse 70 Resp 16 Wt 92 kg (202 lb 12.8 oz) SpO2 100% BMI 39.61 kg/m General Appearance: Well appearing, alert, in no acute distress, well-hydrated, well nourished.. Skin: erythema noted b/l groin with raw, open areas b/l. No current d/c noted. . Health Maintenance List Shingrix Vaccine(1 of 2) Never done RSV Vaccine(1 - 1-dose 60+ series) Never done BP Controlled (<130/80) due on 06/20/2022 Advance Directive Discussion due on 10/27/2023 Behavioral Health Screening Never done Covid-19 Vaccine(3 - season) due on 04/14/2024 Annual PCP Team Chronic Disease Visit due on 01/18/2025 Colorectal Cancer Screening due on 05/30/2025 Diabetes Screening due on 09/17/2026 Lipid Screening due on 08/11/2028 DTaP,Tdap,Td Vaccine(3 - Td or Tdap) due on 06/04/2029 Bone Density Screening Completed Mammogram Screening Discontinued Influenza Vaccine Discontinued Hepatitis C Screening Discontinued Pneumococcal Vaccine: 65+ Discontinued Data reviewed ASSESSMENT/PLAN: 1. Tinea cruris - ICD9: 110.3, ICD10: B35.6 (primary diagnosis) - Keep area of concern very dry. Ok to use OTC antifungal powder if area is moist Start diflucan daily x7 days and topical nystatin. 2. Open wound - ICD9: 879.8, ICD10: T14.8XXA Low suspicion of current secondary bacterial infection but with upcoming surgery, will place on 5 day prescription for duricef. Discussed wound clinic with patient. Will consider if not healing. Alida Jaeger PA-C documented in [facility] encounter[facility] History and physical note * Jolanta Dumont, SUZY.FINISHING TUNNEL OPERATOR - 04/05/2024 11:30 AM EDT HISTORY AND PHYSICAL EXAMINATION SERVICE DATE: 04/05/2024 SERVICE TIME: 12:29 PM PRIMARY CARE PHYSICIAN: Mateo Marmolejo MD Assessment Patient has the following medical conditions which may affect carol-operative course: Essential hypertension, benign Assessment: controlled on rx Last 14 BP Last 14 Encounter BP Readings: Date: BP: 04/05/2024 142/70 01/19/2024 130/72 12/15/2023 167/89[recheck with bp machine[ 11/06/2023 187/62 10/16/2023 159/69 09/17/2023 170/92 08/11/2023 162/74 06/25/2023 151/83 06/13/2023 132/74 04/24/2023 90/58 02/07/2023 138/80 01/31/2023 136/80 01/09/2023 118/72 05/30/2022 143/59 Hyperlipidemia, mixed Assessment: c/w statin SANDRA (obstructive sleep apnea) Assessment: s/p uvelectomy TARANGO (dyspnea on exertion) Assessment: appears chronic due to generalized deconditioning and hip fatigue. Denies sob at rest, CP, palpitations or excessive weight gain. OAB (overactive bladder) Assessment: chronic incontinence, wearing pads, Urine culture pending, pt has open sores in bilateral groins from incontinence. Appt made with PCP's office today to address before surgery 04/21/2024 for COTY Postsurgical hypothyroidism Assessment: stable on rx Elevated hemoglobin A1c Assessment: hx Hemoglobin A1C (%) Date Value 08/11/2023 5.0 06/20/2021 5.4 S/P total right hip arthroplasty Assessment: hx Obesity, Class II, BMI 35-39.9 Assessment: Body mass index is 39.26 kg/m . Kiran Activity Status Index: METS: Walk indoors, such as around the house (1.75 METs) Do light work around the house, such as dusting or washing dishes (2.70 METs) Take care of self; that is eating, dressing, bathing, using the toilet (2.75 METs) DASI Score: 7.2 (Uses cane) Patient denies any chest pain or undue shortness of breath with the above physical activity. Clinical Frailty Scale: 4. Apparently vulnerable STOP-Bang Score: Has or is being treated for high blood pressure BMI greater than 35 kg/m^2 Patient over 50 years old Has a large neck Denies snoring loudly Denies feeling tired, fatigued, or sleepy during the daytime Has not been observed to stop breathing or choking/gasping during sleep Non-male patient STOP-Bang Score: 4 [id number] Score: Age: >=75 Sex: female CHF history: No Hypertension history: Yes Stroke/TIA/thromboembolism history: No Vascular disease history: No Diabetes history: No [id number] Score: 4 ARISCAT Score: Age: 51-80 Preoperative SpO2: >=96% Respiratory infection in the last month: No Preoperative anemia: Yes Surgical incision: peripheral Duration of surgery: 2-3 hrs Emergency procedure: No ARISCAT Score: 30 ANESTHESIA FINDINGS: Intubation History: No history of difficult intubation Significant Anesthesia Considerations: none Airway History: No history of difficult airway I - PHYSICAL EVALUATION AIRWAY Patient intubated: No. Tracheostomy tube not present Mallampati: III. TM distance: >3 FB. Neck ROM: full ROM without neurological symptoms. Mouth opening: adequate. Short neck: no. Thick neck: yes Reilly present: no Lip Bite Test: I Microretrognathia/Micronagthia/Recessed Chin: No DENTAL Dental findings: teeth intact. Additional comments: +crowns/back. II - ANESTHESIA PLAN Anesthetic Plan: other Beta Sully Monitoring Plan Post Procedure Analgesic Plan Informed Consent Anesthetic risks, benefits, alternatives, personnel and consent discussed: yes. Patient / Responsible Democrat agrees to proceed: yes Patient / Surrogate agrees to blood products: blood products not planned Discussed the possibility of lip / dental damage: yes Prepared for Surgery: optimally prepared for surgery, pending [see comment]. Labs and Appt made with PCP's office to address skin breakdown in bilateral inguinal areas 2/2 incontinence CONSULTS: The following consults have been initiated at this time: primary care/internal medicine. Planned Anesthetic: other anesthesia choice The Following Tests/Procedures Have Been Initiated: Orders Placed This Encounter >CBC + AUTO DIFF Standing Status: Future Standing Expiration Date: 07/05/2024 >CMP Standing Status: Future Standing Expiration Date: 07/05/2024 Staphylococcus aureus & MRSA Screen, PCR, Nasal Type and Screen, 30 day Standing Status: Future Standing Expiration Date: 07/05/2024 Order Specific Question: [facility] Planned Surgery or Procedure: Answer: [facility] Urine Culture - LAB COLLECT Standing Status: Future Standing Expiration Date: 07/05/2024 REASON FOR VISIT: Mónica Decker is a 74 year old female who is scheduled for Procedure(s): ROBOTIC ASSISTED TOTAL HIP ARTHROPLASTY (Left) at the request of Dr. Julio Cesar Deluna for consultation.My final recommendation will be communicated back to the requesting physician by way of shared medical record or letter. 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 Primary Osteoarthritis of Both Knees Personal History of Colonic Polyps Hyperlipidemia, Mixed Medicare Annual Wellness Visit, Subsequent Elevated Hemoglobin A1c Screening for Colon Cancer Oab (Overactive Bladder) Hammer Toes of Both Feet Foot Callus Dystrophic Nail Acute Idiopathic Gout Involving Toe of Right Foot Obesity, Class II, Bmi 35-39.9 Advance Directive Discussed With Patient Dermatitis Bilateral Hip Pain Tarango (Dyspnea On Exertion) S/P Total Right Hip Arthroplasty Primary Osteoarthritis of Right Hip COVID-19 Immunization Status Covid-19 Vaccine () Next due on 04/14/2024 12/15/2023 Imm Admin: COVID-19 vaccine, age 12+ yr, season ([email or web address]) 01/06/2021 Imm Admin: COVID-19 vaccine ([facility]) CHIEF COMPLAINT: Pre-op exam HPI: Mónica Decker is a 74 year old seen for PAC due to scheduled above surgery because of OA left hip. 04/10/2023, Dr. 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 The problem began limiting activities 3+ years ago. Currently the pain in the joint is rated at 4 out of 10 with minimal activity. The pain is intermittent and is located in the right hip and groin. The pain is described as cramping. Relieving factorsinclude rest, over the counter medication, and repositioning. There is no specific incident that brought about this pain. Mónica Decker also complains of weakness, referred pain, stiffness, and giving way. FUNCTIONAL STATUS: Do moderate work around the house such as vacuuming, sweeping floors, or carrying in groceries (3.50 METs) Total Joint Arthroplasty: Risk Calculator Mónica Decker has a 67.29% chance of NOT returning home at discharge for a Primary total Hip replacement. Mónica's estimated Length of Stay is 3 days (Inpatient candidate). Mónica's 30 day chance of readmission is 5.58%. Readmission Probability 5.58 % (within 30 days following surgery) Estimated LOS 3 days Discharge Disposition Probability D/C to Home 32.71 % D/C to SNF 67.29 % These calculations are based on the following factors: - 73 years of age - sex is not male - BMI of 38 kg/m2 - NarxCare score of 0 - 0 hospitalizations in the last 12 months - no history of heart disease - no history of diabetes - no history of COPD - no history of anemia - preoperative ambulation: minimal ambulation/wheelchair bound - 0 step(s) to enter home - bed location is on the first floor - bath location is on the first floor - caregiver is consistent - home is not more than 150 miles away - PROMIS-10 Mental Health T score not available - Marital status: PREVIOUS TREATMENTS: Attempted Weight Loss Medical: OTC NSAIDS for 3 Months or Greater (Aleve) Physical Therapy: Use of Ambulatory Aid and Activities Modified REVIEW OF SYSTEMS: General: No weight loss, malaise or fevers. Neurological: No history of TIA's, stroke, REBRANDER tumor, impaired sensorium, hemiplegia, paraplegia orquadraplegia. No neurological symptoms or problems. Respiratory: Positive for: obstructive sleep apnea (s/p uvulaplasty). Negative for: asthma, COPD, pneumonia within 6 weeks, tobacco use and URI < 2 weeks. Cardiovascular: Positive for: hyperlipidemia (on rx) and hypertension Negative for: anticoagulation therapy, arrhythmia, atrial fibrillation, CAD, chest pain, CHF, congenital heart defect, DVT/PE, recent [place], murmur/valvular heart disease, PVD, open heart surgery and valve surgery. GI: No history of GI symptoms or problems. No history of esophageal varices, recent ascites, or ETOH greater than 2 drinks per day. : Positive for: urinary incontinence (bladder, +OAB). Negative for: nephrolithiasis, renal failure and urinary tract infection. MANAGER CAFE: Negative for abnormal vaginal bleeding, abnormal vaginal discharge. Endocrine: Positive for: hypothyroidism (on rx). Negative for: diabetes mellitus. Hematology: No history of bleeding or clotting disorder. Patient is not taking anti-coagulation or platelet medications. No history of hematological symptoms or problems. Oncology: No history of CA metastasis, chemo within 30 days, or radiotherapy within 90 days. No history of oncological symptoms or problems. Psych: No history of psychiatric symptoms or problems. Musculoskeletal: See HPI. +s/p right COTY Positive for: swelling (on rx). Skin: +open groin sores PAST MEDICAL HISTORY Diagnosis Date 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 01/24/2021 Adenomatous colon polyp Allergic rhinitis 07/08/2005 Bilateral hip pain 06/05/2023 Dystrophic nail 01/24/2021 multiple bilateral toes. Elevated hemoglobin A1c 08/27/2018 Essential hypertension, benign 07/08/2005 Fracture left forearm and right radial head Hammer toes of both feet 01/24/2021 Hyperlipidemia, mixed 02/05/2018 As of 02/05/18 patient declines statin therapy. 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 ARTHROSCOPY KNEE DIAGNOSTIC W/WO SYNOVIAL BX SPX Arthroscopy, knee COLONOSCOPY 05/30/2022 Tubular Adenoma-repeat in 3 years COLONOSCOPY FLX DX W/COLLJ SPEC WHEN PFRMD years ago Colonoscopy COLONOSCOPY FLX DX W/COLLJ SPEC WHEN PFRMD 10/13/2013 Colonoscopy COLONOSCOPY FLX DX W/COLLJ SPEC WHEN PFRMD 03/14/2016 Colonoscopy COLONOSCOPY FLX DX W/COLLJ SPEC WHEN PFRMD 11/09/2018 Colonoscopy COLSC FLX W/RMVL OF TUMOR POLYP LESION SNARE TQ 06/15/2010 PAST SURGICAL HISTORY OF 1960 bladder surgery to enlarge opening PAST SURGICAL HISTORY OF uvulectomy for SANDRA SIGMOIDOSCOPY FLX DX W/COLLJ SPEC BR/WA IF PFRMD 12/06/2013 Sigmoidoscopy, flexible THYROIDECTOMY TOTAL/COMPLETE 2005 TOTAL HIP REPLACEMENT Right 06/25/2023 FAMILY HISTORY Problem Relation Age of Onset Heart Father fluid on heart Glaucoma Father Hypertension Mother Stroke Brother Strabismus Brother Detached Retina Brother Social History Tobacco Use Smoking status: Never Smokeless tobacco: Never Tobacco comments: Mom used to smoke, quit 2011 Vaping Use Vaping Use: Never used Substance Use Topics Alcohol use: No Drug use: No Prior to Admission medications as of 04/05/24 1227 Medication Sig Last Dose Taking levothyroxine (LEVOXYL) 150 mcg tablet Take 1 tablet by mouth once daily. Mon- Fri and 1/2 a tab on Friday. Taking Yes lisinopril (ZESTRIL) 40 mg tablet Take 1 tablet by mouth once daily. Taking Yes amLODIPine (NORVASC) 10 mg tablet Take 1 tablet by mouth once daily. Taking Yes furosemide (LASIX) 40 mg tablet Take 1 tablet by mouth once daily. Taking Yes amoxicillin (AMOXIL) 500 mg capsule Please take 4 capsules by mouth 1 (one) hour prior to your dental appointment. Taking Yes naproxen sodium (ALEVE) 220 mg cap Take by mouth as needed. Taking Yes ascorbic acid, vitamin C, (VITAMIN C) 500 mg tablet Take 1 tablet by mouth twice daily with meals for 28 doses. Taking Yes pravastatin (PRAVACHOL) 10 mg tablet Take 1 tablet by mouth once daily. Taking Yes Lactobac no.41/Bifidobact no.7 (PROBIOTIC-10 ORAL) Take 1-2 tablets by mouth once daily. Taking Yes OTC PRODUCT Takes beet powder daily Taking Yes cholecalciferol, vitamin D3, (VITAMIN D3 ORAL) Take 1 tablet by mouth once daily. Taking Yes COLLAGEN MISC 1 tablet once daily. Collagen blend + #2 Taking Yes omega-3 fatty acids 1,000 mg cap Take 1 capsule by mouth three times daily. Taking Yes COENZYME Q10 60 MG CAP Take one(1) tablet daily. Taking Yes multivitamins w-minerals(DAILY MULTIVITAMIN-MINERALS TAB) Take one(1) tablet daily. Taking Yes No medication comments found. ALLERGIES Allergen Reactions Latex Unknown Objective PHYSICAL EXAM: General: alert and oriented (x3), healthy appearance and obese. Pertinent negatives noted - not distressed. Skin: Bilateral inguinal areas with erythema, several small open lesions 1x1cm. HEENT: EOM intact and pupils equal round. Pertinent negatives noted - no carotid bruit. Cardiovascular: regular rate and rhythm, normal S1 and S2, no rub, murmurs, or gallop. Respiratory: normal breath sounds, no wheezes or crackles. No chest wall deformity or tenderness. Abdomen: soft. Pertinent negatives noted - not tender. Extremities: Positive for edema (BLE 1+). Neurological: normal cognition and motor skills. Positive for abnormal gait. Uses cane. PAIN ASSESSMENT: VITALS: BP 142/70 Pulse 68 Temp (Src) 98.6 (Temporal) Resp 14 Ht 5' 0 (1.52m) Wt 201 lb (91.2kg) SpO2 96% BMI 39.26 kg/(m^2). Diagnostic tests reviewed for today's visit: Lab Value Units Date High Low HB No results within date range. HCT No results within date range. WBC No results within date range. PLT No results within date range. NA No results within date range. K No results within date range. GLUC No results within date range. BUN No results within date range. CREAT No results within date range. PTSEC No results within date range. INR No results within date range. APTT No results within date range. ALT No results within date range. AST No results within date range. TBILI No results within date range. TSH No results within date range. Lab Value Units Date High Low HCGQT No results within date range. UHCG No results within date range. HCG, BODY* No results within date range. Lab Value Units Date High Low ABORHD No results within date range. ABSCREEN No results within date range. Hemoglobin A1C (%) Date Value 08/11/2023 5.0 01/09/2023 5.1 02/14/2022 5.4 06/20/2021 5.4 12/19/2020 5.4 06/20/2020 5.6 08/27/2019 5.6 02/24/2019 5.6 Recent Results (from the past 8760 hour(s)) ECG COMPLETE Collection Time: 06/13/23 11:32 AM Result Value Ventricular Rate 67 Atrial Rate 67 P-R Interval 172 QRS Duration 84 QT Interval 414 QTC Calculation (Bazett) 437 Calculated P [place] 29 Calculated R [place] -15 Calculated T [place] 5 Impression NORMAL SINUS RHYTHM CANNOT EXCLUDE ANTERIOR MYOCARDIAL INFARCTION , AGE UNDETERMINED ABNORMAL ECG Confirmed by MD RAYMUNDO GREGORY () on 06/16/2023 10:24:10 AM Recent Results (from the past 40236 hour(s)) ECHO Collection Time: 08/22/23 2:35 PM Impression CONCLUSIONS: - Exam indication: Shortness of Breath - The left ventricle is normal in size. There is mild concentric left ventricular hypertrophy. Left ventricular systolic function is normal. EF = 56 5% (2D 4-ch.) Indeterminate left ventricular diastolic dysfunction. - The right ventricle is normal in size. Right ventricular systolic function is normal. - The left atrial cavity is mildly dilated. - No significant valvular abnormalities. - The patient has not had a prior CC echocardiographic exam for comparison. * * * Final * * * Instructions Given to Patient: Instructions located in the after visit summary. Patient given verbal and written preop instructions and voices comprehension and compliance. SIGNATURE: Jolanta Dumont APRN.CNP PATIENT NAME: Mónica Decker DATE: April 05, 2024 TIME: 11:30 AM PAGER/CONTACT #: [facility]06-10-2024 History and physical note* Jolanta Dumont APRN.CNP - 04/05/2024 11:30 AM EDT HISTORY AND PHYSICAL EXAMINATION SERVICE DATE: 04/05/2024 SERVICE TIME: 12:29 PM PRIMARY CARE PHYSICIAN: Mateo Marmolejo MD Assessment Patient has the following medical conditions which may affect carol-operative course: Essential hypertension, benign Assessment: controlled on rx Last 14 BP Last 14 Encounter BP Readings: Date: BP: 04/05/2024 142/70 01/19/2024 130/72 12/15/2023 167/89[recheck with bp machine[ 11/06/2023 187/62 10/16/2023 159/69 09/17/2023 170/92 08/11/2023 162/74 06/25/2023 151/83 06/13/2023 132/74 04/24/2023 90/58 02/07/2023 138/80 01/31/2023 136/80 01/09/2023 118/72 05/30/2022 143/59 Hyperlipidemia, mixed Assessment: c/w statin SANDRA (obstructive sleep apnea) Assessment: s/p uvelectomy TARANGO (dyspnea on exertion) Assessment: appears chronic due to generalized deconditioning and hip fatigue. Denies sob at rest, CP, palpitations or excessive weight gain. OAB (overactive bladder) Assessment: chronic incontinence, wearing pads, Urine culture pending, pt has open sores in bilateral groins from incontinence. Appt made with PCP's office today to address before surgery 04/21/2024 for COTY Postsurgical hypothyroidism Assessment: stable on rx Elevated hemoglobin A1c Assessment: hx Hemoglobin A1C (%) Date Value 08/11/2023 5.0 06/20/2021 5.4 S/P total right hip arthroplasty Assessment: hx Obesity, Class II, BMI 35-39.9 Assessment: Body mass index is 39.26 kg/m . Kiran Activity Status Index: METS: Walk indoors, such as around the house (1.75 METs) Do light work around the house, such as dusting or washing dishes (2.70 METs) Take care of self; that is eating, dressing, bathing, using the toilet (2.75 METs) DASI Score: 7.2 (Uses cane) Patient denies any chest pain or undue shortness of breath with the above physical activity. Clinical Frailty Scale: 4. Apparently vulnerable STOP-Bang Score: Has or is being treated for high blood pressure BMI greater than 35 kg/m^2 Patient over 50 years old Has a large neck Denies snoring loudly Denies feeling tired, fatigued, or sleepy during the daytime Has not been observed to stop breathing or choking/gasping during sleep Non-male patient STOP-Bang Score: 4 [id number] Score: Age: >=75 Sex: female CHF history: No Hypertension history: Yes Stroke/TIA/thromboembolism history: No Vascular disease history: No Diabetes history: No [id number] Score: 4 ARISCAT Score: Age: 51-80 Preoperative SpO2: >=96% Respiratory infection in the last month: No Preoperative anemia: Yes Surgical incision: peripheral Duration of surgery: 2-3 hrs Emergency procedure: No ARISCAT Score: 30 ANESTHESIA FINDINGS: Intubation History: No history of difficult intubation Significant Anesthesia Considerations: none Airway History: No history of difficult airway I - PHYSICAL EVALUATION AIRWAY Patient intubated: No. Tracheostomy tube not present Mallampati: III. TM distance: >3 FB. Neck ROM: full ROM without neurological symptoms. Mouth opening: adequate. Short neck: no. Thick neck: yes Reilly present: no Lip Bite Test: I Microretrognathia/Micronagthia/Recessed Chin: No DENTAL Dental findings: teeth intact. Additional comments: +crowns/back. II - ANESTHESIA PLAN Anesthetic Plan: other Beta Sully Monitoring Plan Post Procedure Analgesic Plan Informed Consent Anesthetic risks, benefits, alternatives, personnel and consent discussed: yes. Patient / Responsible Democrat agrees to proceed: yes Patient / Surrogate agrees to blood products: blood products not planned Discussed the possibility of lip / dental damage: yes Prepared for Surgery: optimally prepared for surgery, pending [see comment]. Labs and Appt made with PCP's office to address skin breakdown in bilateral inguinal areas 2/2 incontinence CONSULTS: The following consults have been initiated at this time: primary care/internal medicine. Planned Anesthetic: other anesthesia choice The Following Tests/Procedures Have Been Initiated: Orders Placed This Encounter >CBC + AUTO DIFF Standing Status: Future Standing Expiration Date: 07/05/2024 >CMP Standing Status: Future Standing Expiration Date: 07/05/2024 Staphylococcus aureus & MRSA Screen, PCR, Nasal Type and Screen, 30 day Standing Status: Future Standing Expiration Date: 07/05/2024 Order Specific Question: [facility] Planned Surgery or Procedure: Answer: [place] Urine Culture - LAB COLLECT Standing Status: Future Standing Expiration Date: 07/05/2024 REASON FOR VISIT: Mónica Decker is a 74 year old female who is scheduled for Procedure(s): ROBOTIC ASSISTED TOTAL HIP ARTHROPLASTY (Left) at the request of Dr. Julio Cesar Deluna for consultation.My final recommendation will be communicated back to the requesting physician by way of shared medical record or letter. 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 Primary Osteoarthritis of Both Knees Personal History of Colonic Polyps Hyperlipidemia, Mixed Medicare Annual Wellness Visit, Subsequent Elevated Hemoglobin A1c Screening for Colon Cancer Oab (Overactive Bladder) Hammer Toes of Both Feet Foot Callus Dystrophic Nail Acute Idiopathic Gout Involving Toe of Right Foot Obesity, Class II, Bmi 35-39.9 Advance Directive Discussed With Patient Dermatitis Bilateral Hip Pain Tarango (Dyspnea On Exertion) S/P Total Right Hip Arthroplasty Primary Osteoarthritis of Right Hip COVID-19 Immunization Status Covid-19 Vaccine ( season) Next due on 04/14/2024 12/15/2023 Imm Admin: COVID-19 vaccine, age 12+ yr, season ([email or web address]) 01/06/2021 Imm Admin: COVID-19 vaccine ([facility]) CHIEF COMPLAINT: Pre-op exam HPI: Mónica Decker is a 74 year old seen for PAC due to scheduled above surgery because of OA left hip. 04/10/2023, Dr. 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 The problem began limiting activities 3+ years ago. Currently the pain in the joint is rated at 4 out of 10 with minimal activity. The pain is intermittent and is located in the right hip and groin. The pain is described as cramping. Relieving factorsinclude rest, over the counter medication, and repositioning. There is no specific incident that brought about this pain. Mónica Decker also complains of weakness, referred pain, stiffness, and giving way. FUNCTIONAL STATUS: Do moderate work around the house such as vacuuming, sweeping floors, or carrying in groceries (3.50 METs) Total Joint Arthroplasty: Risk Calculator Mónica Decker has a 67.29% chance of NOT returning home at discharge for a Primary total Hip replacement. Mónica's estimated Length of Stay is 3 days (Inpatient candidate). Mónica's 30 day chance of readmission is 5.58%. Readmission Probability 5.58 % (within 30 days following surgery) Estimated LOS 3 days Discharge Disposition Probability D/C to Home 32.71 % D/C to SNF 67.29 % These calculations are based on the following factors: - 73 years of age - sex is not male - BMI of 38 kg/m2 - NarxCare score of 0 - 0 hospitalizations in the last 12 months - no history of heart disease - no history of diabetes - no history of COPD - no history of anemia - preoperative ambulation: minimal ambulation/wheelchair bound - 0 step(s) to enter home - bed location is on the first floor - bath location is on the first floor - caregiver is consistent - home is not more than 150 miles away - PROMIS-10 Mental Health T score not available - Marital status: PREVIOUS TREATMENTS: Attempted Weight Loss Medical: OTC NSAIDS for 3 Months or Greater (Aleve) Physical Therapy: Use of Ambulatory Aid and Activities Modified REVIEW OF SYSTEMS: General: No weight loss, malaise or fevers. Neurological: No history of TIA's, stroke, REBRANDER tumor, impaired sensorium, hemiplegia, paraplegia orquadraplegia. No neurological symptoms or problems. Respiratory: Positive for: obstructive sleep apnea (s/p uvulaplasty). Negative for: asthma, COPD, pneumonia within 6 weeks, tobacco use and URI < 2 weeks. Cardiovascular: Positive for: hyperlipidemia (on rx) and hypertension Negative for: anticoagulation therapy, arrhythmia, atrial fibrillation, CAD, chest pain, CHF, congenital heart defect, DVT/PE, recent [place], murmur/valvular heart disease, PVD, open heart surgery and valve surgery. GI: No history of GI symptoms or problems. No history of esophageal varices, recent ascites, or ETOH greater than 2 drinks per day. : Positive for: urinary incontinence (bladder, +OAB). Negative for: nephrolithiasis, renal failure and urinary tract infection. MANAGER CAFE: Negative for abnormal vaginal bleeding, abnormal vaginal discharge. Endocrine: Positive for: hypothyroidism (on rx). Negative for: diabetes mellitus. Hematology: No history of bleeding or clotting disorder. Patient is not taking anti-coagulation or platelet medications. No history of hematological symptoms or problems. Oncology: No history of CA metastasis, chemo within 30 days, or radiotherapy within 90 days. No history of oncological symptoms or problems. Psych: No history of psychiatric symptoms or problems. Musculoskeletal: See HPI. +s/p right COTY Positive for: swelling (on rx). Skin: +open groin sores PAST MEDICAL HISTORY Diagnosis Date 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 01/24/2021 Adenomatous colon polyp Allergic rhinitis 07/08/2005 Bilateral hip pain 06/05/2023 Dystrophic nail 01/24/2021 multiple bilateral toes. Elevated hemoglobin A1c 08/27/2018 Essential hypertension, benign 07/08/2005 Fracture left forearm and right radial head Hammer toes of both feet 01/24/2021 Hyperlipidemia, mixed 02/05/2018 As of 02/05/18 patient declines statin therapy. 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 ARTHROSCOPY KNEE DIAGNOSTIC W/WO SYNOVIAL BX SPX Arthroscopy, knee COLONOSCOPY 05/30/2022 Tubular Adenoma-repeat in 3 years COLONOSCOPY FLX DX W/COLLJ SPEC WHEN PFRMD years ago Colonoscopy COLONOSCOPY FLX DX W/COLLJ SPEC WHEN PFRMD 10/13/2013 Colonoscopy COLONOSCOPY FLX DX W/COLLJ SPEC WHEN PFRMD 03/14/2016 Colonoscopy COLONOSCOPY FLX DX W/COLLJ SPEC WHEN PFRMD 11/09/2018 Colonoscopy COLSC FLX W/RMVL OF TUMOR POLYP LESION SNARE TQ 06/15/2010 PAST SURGICAL HISTORY OF 1960 bladder surgery to enlarge opening PAST SURGICAL HISTORY OF uvulectomy for SANDRA SIGMOIDOSCOPY FLX DX W/COLLJ SPEC BR/WA IF PFRMD 12/06/2013 Sigmoidoscopy, flexible THYROIDECTOMY TOTAL/COMPLETE 2005 TOTAL HIP REPLACEMENT Right 06/25/2023 FAMILY HISTORY Problem Relation Age of Onset Heart Father fluid on heart Glaucoma Father Hypertension Mother Stroke Brother Strabismus Brother Detached Retina Brother Social History Tobacco Use Smoking status: Never Smokeless tobacco: Never Tobacco comments: Mom used to smoke, quit 2011 Vaping Use Vaping Use: Never used Substance Use Topics Alcohol use: No Drug use: No Prior to Admission medications as of 04/05/24 1227 Medication Sig Last Dose Taking levothyroxine (LEVOXYL) 150 mcg tablet Take 1 tablet by mouth once daily. Mon- Sat and 1/2 a tab on Friday. Taking Yes lisinopril (ZESTRIL) 40 mg tablet Take 1 tablet by mouth once daily. Taking Yes amLODIPine (NORVASC) 10 mg tablet Take 1 tablet by mouth once daily. Taking Yes furosemide (LASIX) 40 mg tablet Take 1 tablet by mouth once daily. Taking Yes amoxicillin (AMOXIL) 500 mg capsule Please take 4 capsules by mouth 1 (one) hour prior to your dental appointment. Taking Yes naproxen sodium (ALEVE) 220 mg cap Take by mouth as needed. Taking Yes ascorbic acid, vitamin C, (VITAMIN C) 500 mg tablet Take 1 tablet by mouth twice daily with meals for 28 doses. Taking Yes pravastatin (PRAVACHOL) 10 mg tablet Take 1 tablet by mouth once daily. Taking Yes Lactobac no.41/Bifidobact no.7 (PROBIOTIC-10 ORAL) Take 1-2 tablets by mouth once daily. Taking Yes OTC PRODUCT Takes beet powder daily Taking Yes cholecalciferol, vitamin D3, (VITAMIN D3 ORAL) Take 1 tablet by mouth once daily. Taking Yes COLLAGEN MISC 1 tablet once daily. Collagen blend + #2 Taking Yes omega-3 fatty acids 1,000 mg cap Take 1 capsule by mouth three times daily. Taking Yes COENZYME Q10 60 MG CAP Take one(1) tablet daily. Taking Yes multivitamins w-minerals(DAILY MULTIVITAMIN-MINERALS TAB) Take one(1) tablet daily. Taking Yes No medication comments found. ALLERGIES Allergen Reactions Latex Unknown Objective PHYSICAL EXAM: General: alert and oriented (x3), healthy appearance and obese. Pertinent negatives noted - not distressed. Skin: Bilateral inguinal areas with erythema, several small open lesions 1x1cm. HEENT: EOM intact and pupils equal round. Pertinent negatives noted - no carotid bruit. Cardiovascular: regular rate and rhythm, normal S1 and S2, no rub, murmurs, or gallop. Respiratory: normal breath sounds, no wheezes or crackles. No chest wall deformity or tenderness. Abdomen: soft. Pertinent negatives noted - not tender. Extremities: Positive for edema (BLE 1+). Neurological: normal cognition and motor skills. Positive for abnormal gait. Uses cane. PAIN ASSESSMENT: VITALS: BP 142/70 Pulse 68 Temp (Src) 98.6 (Temporal) Resp 14 Ht 5' 0 (1.52m) Wt 201 lb (91.2kg) SpO2 96% BMI 39.26 kg/(m^2). Diagnostic tests reviewed for today's visit: Lab Value Units Date High Low HB No results within date range. HCT No results within date range. WBC No results within date range. PLT No results within date range. NA No results within date range. K No results within date range. GLUC No results within date range. BUN No results within date range. CREAT No results within date range. PTSEC No results within date range. INR No results within date range. APTT No results within date range. ALT No results within date range. AST No results within date range. TBILI No results within date range. TSH No results within date range. Lab Value Units Date High Low HCGQT No results within date range. UHCG No results within date range. HCG, BODY* No results within date range. Lab Value Units Date High Low ABORHD No results within date range. ABSCREEN No results within date range. Hemoglobin A1C (%) Date Value 08/11/2023 5.0 01/09/2023 5.1 02/14/2022 5.4 06/20/2021 5.4 12/19/2020 5.4 06/20/2020 5.6 08/27/2019 5.6 02/24/2019 5.6 Recent Results (from the past 8760 hour(s)) ECG COMPLETE Collection Time: 06/13/23 11:32 AM Result Value Ventricular Rate 67 Atrial Rate 67 P-R Interval 172 QRS Duration 84 QT Interval 414 QTC Calculation ([place]) 437 Calculated P [place] 29 Calculated R [place] -15 Calculated T [place] 5 Impression NORMAL SINUS RHYTHM CANNOT EXCLUDE ANTERIOR MYOCARDIAL INFARCTION , AGE UNDETERMINED ABNORMAL ECG Confirmed by MD ZACKARY, TERRY () on 06/16/2023 10:24:10 AM Recent Results (from the past 94153 hour(s)) ECHO Collection Time: 08/22/23 2:35 PM Impression CONCLUSIONS: - Exam indication: Shortness of Breath - The left ventricle is normal in size. There is mild concentric left ventricular hypertrophy. Left ventricular systolic function is normal. EF = 56 5% (2D 4-ch.) Indeterminate left ventricular diastolic dysfunction. - The right ventricle is normal in size. Right ventricular systolic function is normal. - The left atrial cavity is mildly dilated. - No significant valvular abnormalities. - The patient has not had a prior [facility] echocardiographic exam for comparison. * * * Final * * * Instructions Given to Patient: Instructions located in the after visit summary. Patient given verbal and written preop instructions and voices comprehension and compliance. SIGNATURE: Jolanta Dumont APRN.CNP PATIENT NAME: Mónica Decker DATE: April 05, 2024 TIME: 11:30 AM PAGER/CONTACT #: documented in this encounterOhiohealth [facility]06-10-2024 Instructions* Patient Instructions* Jolanta Dumont APRN.CNP - 04/05/2024 11:28 AM EDT PATIENT PREOPERATIVE INSTRUCTIONS Julio Cesar Deluna MD has scheduled you for your procedure at this surgery center: : [phone] -- [address] [address]. Please read below carefully for your personalized instructions. Dietary Restrictions: - No solid food after midnight. - You may have 12 ounces of clear liquids (water, clear juices such as apple juice or gatorade, carbonated beverages, clear tea, black coffee, jello) until 2 hours before scheduled arrival at facility. No red/purple coloring and no creamer/sugar Medications: Unless instructed differently below, stay on all of your medications until your surgery. If you start any new medications after today's visit, please contact your surgeon. Pre-Surgery Med Instructions Medication Instructions levothyroxine (LEVOXYL) 150 mcg tablet Take the day of surgery with a small sip of water lisinopril (ZESTRIL) 40 mg tablet Do not take the day of surgery amLODIPine (NORVASC) 10 mg tablet Take the day of surgery with a small sip of water furosemide (LASIX) 40 mg tablet Do not take the day of surgery amoxicillin (AMOXIL) 500 mg capsule Do not take the day of surgery naproxen sodium (ALEVE) 220 mg cap Stop 7 days before surgery ascorbic acid, vitamin C, (VITAMIN C) 500 mg tablet Stop 7 days before surgery pravastatin (PRAVACHOL) 10 mg tablet Take the day of surgery with a small sip of water Lactobac no.41/Bifidobact no.7 (PROBIOTIC-10 ORAL) Stop 7 days before surgery OTC PRODUCT Stop 7 days before surgery cholecalciferol, vitamin D3, (VITAMIN D3 ORAL) Stop 7 days before surgery COLLAGEN MISC Stop 7 days before surgery omega-3 fatty acids 1,000 mg cap Stop 7 days before surgery COENZYME Q10 60 MG CAP Stop 7 days before surgery multivitamins w-minerals(DAILY MULTIVITAMIN-MINERALS TAB) Stop 7 days before surgery If you start any new medications after today's visit, please contact the surgeon's office. Blood Thinning Medications: - Stop NSAIDS (Ibuprofen, Advil, Aleve, Motrin, Celebrex, Mobic, etc.) 7 days before surgery, as directed by your surgeon. - Stop Aspirin 7 days before surgery, as directed by your surgeon. - Stop Vitamin E, ALL multi-vitamins, herbals and dietary supplements 7 days before surgery. - You may take Tylenol (Acetaminophen) or any of your pain medications that do not contain aspirin or NSAIDS as needed. Important Reminders: - Candy, mints, and tobacco products are NOT permitted the morning of surgery. - Hearing aids, dentures and glasses may be worn the morning of surgery. - NO jewelry, body piercings, makeup, hairpins or contacts are to be worn the day of surgery. If you develop symptoms such as a fever, cold, or flu, or have other changes to your health within TWO DAYS of scheduled surgery or the morning of surgery, please contact the surgery center above. Personal Belongings: -Please have photo ID and insurance cards. -If you do not have a copy of advance directives on file with us, please bring a copy with you on the day of surgery. - Leave ALL valuables and money at home or with family members. For Outpatient Procedures: - YOU MUST HAVE A RESPONSIBLE EXHAUSTER TAKE YOU HOME. A EXTRACTOR AND WRINGER OPERATOR OR DIRECTOR OF ACCOUNTING CANNOT BE MADE A RESPONSIBLE EXHAUSTER. - We recommend that a responsible person stays with you overnight to take care of you. - You cannot stay in a hotel alone after outpatient surgery. You will not be permitted to have yoursurgery, if you do not have someone to take care of you. Arrival Time for Surgery: - The Surgery Center or hospital where you are having surgery will call the afternoon before surgery (or Friday for Friday surgery) with a scheduled arrival time. - If you have not heard by 4 pm, please contact the surgery center above. Please be aware that emergency situations arise, which may delay or change your surgical time. If this happens, we will notify you as soon as possible and regret any inconvenience. If you already have an Advance Directive, please fax a copy to [phone] or email to for it to be added to your chart. If you do not have an Advance Directive, you can find the appropriate form and more information at [email or web address]. We recommend that youcomplete the Advance Directive form found on the website and bring it with you the day of your surgery. It can be witnessed and scanned into your chart that day. Jolanta Dumont APRN.BRIANNE documented in this encounterOhio[facility]06-04-2024 History of Present illness Narrative* Lyudmila Mei CT - 03/30/2024 9:30 AM EDT Radiology Service Progress Note PATIENT NAME: Mónica Decker DATE OF SERVICE: March 30, 2024 TIME: 9:42 AM PATIENT IDENTITY VERIFICATION COMPLETED USING TWO (2) IDENTIFIERS: Name and Date of confirmedby patient verbally and Name and Date of confirmed by identification band. FALL SCREENING: Has the patient had 2 falls in the last year or 1 fall with injury or currently using an Ambulatory Assistive Device (Walker, Cane, Wheelchair, Crutches, etc.)? No PATIENT GENDER DATA: Female. status: : No status: NO. PATIENT RELEVANT IMPLANT DATA REVIEWED: Not Applicable PATIENT PRESENTS WITH AN IMPLANTABLE OR ATTACHED CELL TOWER CLIMBER: No RADIOLOGY DEPARTMENT: CT; Exam(s) Completed: Lower extremity PERIPHERAL IV DATA: Not applicable SIGNED BY: MADISON Piper March 30, 2024 9:42 AM documented in this encounterOhiohealth [facility]06-04-2024 NoteHNO ID: [id number] Author: LYUDMILA MEI CT Service: Radiology Author Type: Technologist Type: Progress Notes Filed: 03/30/2024 09:42 Note Text: Radiology Service Progress Note PATIENT NAME: Mónica Decker DATE OF SERVICE: March 30, 2024 TIME: 9:42 AM PATIENT IDENTITY VERIFICATION COMPLETED USING TWO (2) IDENTIFIERS: Name and Date of confirmed by patient verbally and Name and Date of confirmed by identification band. FALL SCREENING: Has the patient had 2 falls in the last year or 1 fall with injury or currently using an Ambulatory Assistive Device (Walker, Cane, Wheelchair, Crutches, etc.)? No PATIENT GENDER DATA: Female. status: : No status: NO. PATIENT RELEVANT IMPLANT DATA REVIEWED: Not Applicable PATIENT PRESENTS WITH AN IMPLANTABLE OR ATTACHED CELL TOWER CLIMBER: No RADIOLOGY DEPARTMENT: CT; Exam(s) Completed: Lower extremity PERIPHERAL IV DATA: Not applicable SIGNED BY: MADISON Piper March 30, 2024 9:42 [id number] Telephone encounter Note* Telephone Encounter - Aysha Hernandez RN - 03/29/2024 2:50 PM EDT Pt calling RN line. She said she had PAT tomorrow. Was told she needs antibiotics for the rest of her life before any procedure. She wants to know if she is supposed to have antibiotics before all her tests for surgery at the end of the month. Spoke with Mónica. Clarified that CT scan is tomorrow, PAT is 6/10. No antibiotics prior to any of these appts. Explained typically only for dental appts but she can always call to clarify if she needs them. She verbalized understanding. [facility]06-03-[facility]24 Miscellaneous Notes* Telephone Encounter - Aysha Hernandez RN - 03/29/2024 2:50 PM EDT Pt calling RN line. She said she had PAT tomorrow. Was told she needs antibiotics for the rest of her life before any procedure. She wants to know if she is supposed to have antibiotics before all her tests for surgery at the end of the month. Spoke with Mónica. Clarified that CT scan is tomorrow, PAT is 6/10. No antibiotics prior to any of these appts. Explained typically only for dental appts but she can always call to clarify if she needs them. She verbalized understanding. 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 Pt has cane, walker, crutches, raised toilet seat. Discussed with patient importance of attending joint education class and provided date and times ofclass: YES prior CTOY 06/18 Patient received Joint Education Binder: Yes Plans discharge home with [facility]. 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 Pt has cane, walker, crutches, raised toilet seat. Discussed with patient importance of attending joint education class and provided date and times ofclass: YES prior COTY 06/18 Patient received Joint Education Binder: Yes Plans discharge home with [facility]. SIGNATURE: ERIC Kelsey PATIENT NAME: Mónica Decker DATE: March 10, 2024 TIME: 7:29 AM documented in this encounterOhiohealth Marion [facility] Hospital05-10-2024 Telephone encounter Note * Telephone Encounter - Ramiro Stearns - 03/05/2024 9:44 AM EDT Called and spoke with patient scheduled her for 930 on 03/30/2024 will call back if she is unable to make it [facility]05-10-2024 Miscellaneous Notes* Telephone Encounter - Ramiro Stearns - 03/05/2024 9:44 AM EDT Called and spoke with patient scheduled her for 930 on 03/30/2024 will call back if she is unable to make it * Telephone Encounter - Rachna Orr - 2024 3:14 PM EDT Please reach out and assist with scheduling a pre-op CT scan of her left hip. Surgery is 04-21-2024. She may ask you to call her brother who is her transportation. His name is Gerson. He can be reached at [phone]. Thank you. Rachna Jay documented in this encounterOhiohealth [facility]05-09-2024 Telephone encounter Note * Telephone Encounter - Rachna Orr - 2024 3:14 PM EDT Please reach out and assist with scheduling a pre-op CT scan of her left hip. Surgery is 04-21-2024. She may ask you to call her brother who is her transportation. His name is Gerson. He can be reached at [phone]. Thank you. Rachna Jay [facility]05-02-2024 Telephone encounter Note* Telephone Encounter - Keyanna Bishop MA - 02/26/2024 1:34 PM EDT Patient has been identified by name and date of : Yes, Provider Mateo Marmolejo MD Date February Time 1:34 PM Patient phones for refill(s): Requested Prescriptions Pending Prescriptions Disp Refills levothyroxine (LEVOXYL) 150 mcg tablet 90 tablet 1 Sig: Take 1 tablet by mouth once daily. Fri-Fri and 1/2 a tab on Friday. Date of last office visit in primary care: 01/19/2024 Date of next office visit in primary care: 07/23/2024 Patient requesting 90 days and is asking for a return call when the medication has been called [facility]. Patient is out of medication. Please advise. Thank you. Keyanna Bishop MA. [facility]05-02-[facility] Miscellaneous Notes* Telephone Encounter - Keyanna Bishop MA - 02/26/2024 1:34 PM EDT Patient has been identified by name and date of : Yes, Provider Mateo Marmolejo MD Date February Time 1:34 PM Patient phones for refill(s): Requested Prescriptions Pending Prescriptions Disp Refills levothyroxine (LEVOXYL) 150 mcg tablet 90 tablet 1 Sig: Take 1 tablet by mouth once daily. Mon-Sat and 12 a tab on Friday. Date of last office visit in primary care: 01/19/2024 Date of next office visit in primary care: 07/23/2024 Patient requesting 90 days and is asking for a return call [facility] Patient is out of medication. Please advise. Thank you. Keyanna Bishop MA. * Telephone Encounter - Elizabeth Vargas - 02/26/2024 1:26 PM EDT Patient has been identified by name and date of : Patient phones for refill(s): Requested Prescriptions Pending Prescriptions Disp Refills levothyroxine (LEVOXYL) 150 mcg tablet 90 tablet 1 Sig: Take 1 tablet by mouth once daily. Mon-Sat and 2 a tab on Friday. Date of last office visit in primary care: 01/19/2024 Date of next office visit in primary care: 07/23/2024 Patient requesting 90 days and is asking for a return call when [facility] Patient is out of medication. Please advise. Thank you. Elizabeth Vargas. documented in this encounterOhiohealth [facility] Hospital05-02-2024 Telephone encounter Note * Telephone Encounter - Elizabeth Vargas - 02/26/2024 1:26 PM EDT Patient has been identified by name and date of : Patient phones for refill(s): Requested Prescriptions Pending Prescriptions Disp Refills levothyroxine (LEVOXYL) 150 mcg tablet 90 tablet 1 Sig: Take 1 tablet by mouth once daily. Mon-Sat and 12 a tab on Friday. Date of last office visit in primary care: 01/19/2024 Date of next office visit in primary care: 07/23/2024 Patient requesting 90 days and is asking for a return call when the [facility] Patient is out of medication. Please advise. Thank you. Elizabeth Vargas. [facility]04-27-[facility] Telephone encounter Note* Telephone Encounter - Yandel Edmonds MD - 02/21/2024 11:18 AM EDT OK to refill as ordered Yandel Edmonds MD [facility]04-27-2024 Miscellaneous Notes* Telephone Encounter - Yandel Edmonds MD - 02/21/2024 11:18 AM EDT OK to refill as ordered Yandel Edmonds MD * Telephone Encounter - Zulma Burgos RN - 02/21/2024 11:00 AM EDT Patient has been identified by name and date of : Yes, Zulma Burgos RN Date 02/21/2024 Time 11:02 am Patient phones for refill(s): Requested Prescriptions Pending Prescriptions Disp Refills lisinopril (ZESTRIL) 40 mg tablet 90 tablet 0 Sig: Take 1 tablet by mouth once daily. Date of last office visit in primary care: 01/19/2024 Date of next office visit in primary care: 07/23/2024 Patient is completely out of BP medication for a couple of days. Reports she called last week. Not noted. Asking for prescription to be sent in today. Please advise. Thank you. Zulma Burgos RN. documented in this encounterOhiohealth [facility]04-27-2024 Telephone encounter Note * Telephone Encounter - Zulma Burgos RN - 02/21/2024 11:00 AM EDT Patient has been identified by name and date of : Yes, Zulma Burgos RN Date 02/21/2024 Time 11:02 am Patient phones for refill(s): Requested Prescriptions Pending Prescriptions Disp Refills lisinopril (ZESTRIL) 40 mg tablet 90 tablet 0 Sig: Take 1 tablet by mouth once daily. Date of last office visit in primary care: 01/19/2024 Date of next office visit in primary care: 07/23/2024 Patient is completely out of BP medication for a couple of days. Reports she called last week. Not noted. Asking for prescription to be sent in today. Please advise. Thank you. Zulma Burgos RN. [facility]04-23-[facility] History of Present illness Narrative* Julio Cesar Deluna MD - 02/17/2024 10:28 AM EDT Orthopaedic Office Note: February 17, 2024 11:09 AM Mónica Decker 73 year old History: Mónica is well-known to me as I previously replaced her right hip and she has done well from that. She has severe left hip osteoarthritis and we had planned to do staged procedures. She is here to schedule surgery. Left hip giving her substantial trouble. 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 Is active. Subjective: Left hip pain Updated ROS: No changes Updated Exam: Left lower Extremity 30 degree flexion contracture Flexion and 90 No internal or external rotation Abduction and adduction painful Neurovascular intact Updated Imaging: Severe left hip osteoarthritis with complete joint space obliteration Assessment and Plan: Mónica is here with severe left hip osteoarthritis. She has recovered appropriately from her right hip replacement. She has exhausted conservative management. Will plan to proceed with left robotically assisted hip replacement. Questions answered today, risks and benefits reviewed, and consent has been signed. I spent a total of approximately 25 minutes on the date of the service which included preparing to see the patient, [id number] patient care, completing clinical documentation, obtaining and/or reviewing separately obtained history, performing a medically appropriate examination, counseling and educating the patient/family/caregiver, ordering medications, tests, or procedures, independently interpreting results (not separately reported), communicating results to the patient/family/caregiver, and care coordination (not separately reported). Julio Cesar Deluna MD Orthopaedic Surgery documented in this encounterOhio[facility]04-23-2024 History of Present illness Narrative* Peggy King Tech - 02/17/2024 9:50 AM EDT Radiology Service Progress Note PATIENT NAME: Mónica Decker DATE OF SERVICE: February 17, 2024 TIME: 10:24 AM PATIENT IDENTITY VERIFICATION COMPLETED USING TWO (2) IDENTIFIERS: Name and Date of confirmedby patient verbally. FALL SCREENING: Has the patient had 2 falls in the last year or 1 fall with injury or currently using an Ambulatory Assistive Device (Walker, Cane, Wheelchair, Crutches, etc.)? No PATIENT GENDER DATA: Female. status: : No status: NO. PATIENT RELEVANT IMPLANT DATA REVIEWED: Not Applicable PATIENT PRESENTS WITH AN IMPLANTABLE OR ATTACHED CELL TOWER CLIMBER: No RADIOLOGY DEPARTMENT: General X-ray: Exam(s) Completed: Pelvis X-Ray: Pelvis with Hip Right and Wt.Bearing PERIPHERAL IV DATA: Not applicable SIGNED BY: Martina Crawford February 17, 2024 10:24 AM documented in this encounterOhiohealth [facility]04-23-2024 NoteHNO ID: [id number] Author: PEGGY KING Tech Service: Radiology Author Type: Court Deputy Type: Progress Notes Filed: 02/17/2024 10:24 Note Text: Radiology Service Progress Note PATIENT NAME: Mónica Decker DATE OF SERVICE: February 17, 2024 TIME: 10:24 AM PATIENT IDENTITY VERIFICATION COMPLETED USING TWO (2) IDENTIFIERS: Name and Date of confirmed by patient verbally. FALL SCREENING: Has the patient had 2 falls in the last year or 1 fall with injury or currently using an Ambulatory Assistive Device (Walker, Cane, Wheelchair, Crutches, etc.)? No PATIENT GENDER DATA: Female. status: : No status: NO. PATIENT RELEVANT IMPLANT DATA REVIEWED: Not Applicable PATIENT PRESENTS WITH AN IMPLANTABLE OR ATTACHED CELL TOWER CLIMBER: No RADIOLOGY DEPARTMENT: General X-ray: Exam(s) Completed: Pelvis X-Ray: Pelvis with Hip Right and Wt. Bearing PERIPHERAL IV DATA: Not applicable SIGNED BY: Martina Crawford February 17, 2024 10:24 [id number] History of Present illness Narrative* Alida Jaeger PA-C - 01/19/2024 11:32 AM EDT Chief Complaint Patient presents with: Blood Pressure FU: FU 12/15/23 HPI Mónica Decker is a 73 year old female who presents here today for Above Complaints.. At last visit we increased amlodipine to 10mg. Patient is tolerating medication well. Doesn't check bp at home. Last 3 Encounter BP Readings: Date: BP: 01/19/2024 130/72 12/15/2023 167/89[recheck with bp machine[ 11/06/2023 187/62 Past medical history, appointments, medications, allergies reviewed. Previous Medical History PAST MEDICAL HISTORY Diagnosis Date 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 01/24/2021 Adenomatous colon polyp Allergic rhinitis 07/08/2005 Bilateral hip pain 06/05/2023 Dystrophic nail 01/24/2021 multiple bilateral toes. Elevated hemoglobin A1c 08/27/2018 Essential hypertension, benign 07/08/2005 Fracture left forearm and right radial head Hammer toes of both feet 01/24/2021 Hyperlipidemia, mixed 02/05/2018 As of 02/05/18 patient declines statin therapy. Medicare annual wellness visit, subsequent 08/27/2018 Medicare part B: 02/24/2014 last done: 08/27/2019 Morbid (severe) obesity due to excess calories (HCC) 02/06/2006 OAB (overactive bladder) 12/19/2020 Declines medication as of 12/19/20 Obesity, Class II, BMI 35-39.9 02/19/2021 SANDRA (obstructive sleep apnea) 07/08/2005 Had corrective surgery Personal history of colonic polyps 03/14/2016 Postsurgical hypothyroidism 09/04/2005 Primary osteoarthritis of both hips 06/20/2015 Primary osteoarthritis of both knees 06/20/2015 Previous Surgical History PAST SURGICAL HISTORY Procedure Laterality Date AMPUTATION TOE,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 ARTHROSCOPY KNEE DIAGNOSTIC W/WO SYNOVIAL BX SPX Arthroscopy, knee COLONOSCOPY 05/30/2022 Tubular Adenoma-repeat in 3 years COLONOSCOPY FLX DX W/COLLJ SPEC WHEN PFRMD years ago Colonoscopy COLONOSCOPY FLX DX W/COLLJ SPEC WHEN PFRMD 10/13/2013 Colonoscopy COLONOSCOPY FLX DX W/COLLJ SPEC WHEN PFRMD 03/14/2016 Colonoscopy COLONOSCOPY FLX DX W/COLLJ SPEC WHEN PFRMD 11/09/2018 Colonoscopy COLSC FLX W/RMVL OF TUMOR POLYP LESION SNARE TQ 06/15/2010 PAST SURGICAL HISTORY OF 1960 bladder surgery to enlarge opening PAST SURGICAL HISTORY OF uvulectomy for SANDRA SIGMOIDOSCOPY FLX DX W/COLLJ SPEC BR/WA IF PFRMD 12/06/2013 Sigmoidoscopy, flexible THYROIDECTOMY TOTAL/COMPLETE 2005 TOTAL HIP REPLACEMENT Right 06/25/2023 Family History FAMILY HISTORY Problem Relation Age of Onset Heart Father fluid on heart Glaucoma Father Hypertension Mother Stroke Brother Strabismus Brother Detached Retina Brother Patient Allergies ALLERGIES Allergen Reactions Latex Unknown Current Medications Current Outpatient Medications on File Prior to Visit Medication Sig furosemide (LASIX) 40 mg tablet Take 1 tablet by mouth once daily. amLODIPine (NORVASC) 10 mg tablet Take 1 tablet by mouth once daily. amoxicillin (AMOXIL) 500 mg capsule Please take 4 capsules by mouth 1 (one) hour prior to your dental appointment. lisinopril (ZESTRIL) 40 mg tablet Take 1 tablet by mouth once daily. naproxen sodium (ALEVE) 220 mg cap Take by mouth as needed. levothyroxine (LEVOXYL) 150 mcg tablet Take 1 tablet by mouth once daily. Mon- Sat and 1/2 a tab on Friday. ascorbic acid, vitamin C, (VITAMIN C) 500 mg tablet Take 1 tablet by mouth twice daily with meals for 28 doses. pravastatin (PRAVACHOL) 10 mg tablet Take 1 tablet by mouth once daily. Lactobac no.41/Bifidobact no.7 (PROBIOTIC-10 ORAL) Take 1-2 tablets by mouth once daily. OTC PRODUCT Takes beet powder daily cholecalciferol, vitamin D3, (VITAMIN D3 ORAL) Take 1 tablet by mouth once daily. COLLAGEN MISC 1 tablet once daily. Collagen blend + #2 omega-3 fatty acids 1,000 mg cap Take 1 capsule by mouth three times daily. COENZYME Q10 60 MG CAP Take one(1) tablet daily. multivitamins w-minerals(DAILY MULTIVITAMIN-MINERALS TAB) Take one(1) tablet daily. No current facility-administered medications on file prior to visit. Social History Social History Tobacco Use Smoking status: Never Smokeless tobacco: Never Tobacco comments: Mom used to smoke, quit 2011 Vaping Use Vaping Use: Never used Substance Use Topics Alcohol use: No Drug use: No Review of Symptoms REVIEW OF SYSTEMS See hpi EXAM: BP 130/72 (BP Site: Left Arm, BP Position: Sitting, BP Cuff Size: Large Adult) Pulse 71 Temp 37.2 C (99 F) (Right Tympanic) Resp 16 Wt 95.3 kg (210 lb) SpO2 99% BMI 41.01 kg/m General Appearance: Well appearing, alert, in no acute distress, well-hydrated, well nourished.. Health Maintenance List Shingrix Vaccine(1 of 2) Never done RSV Vaccine(1 - 1-dose 60+ series) Never done Mammogram Screening due on 04/18/2022 BP Controlled (<130/80) due on 06/20/2022 Advance Directive Discussion due on 10/27/2023 Depression Assessment Never done Annual PCP Team Chronic Disease Visit due on 12/15/2024 Colorectal Cancer Screening due on 05/30/2025 Diabetes Screening due on 09/17/2026 Lipid Screening due on 08/11/2028 DTaP,Tdap,Td Vaccine(3 - Td or Tdap) due on 06/04/2029 Bone Density Screening Completed Covid-19 Vaccine Completed Influenza Vaccine Discontinued Hepatitis C Screening Discontinued Pneumococcal Vaccine: 65+ Discontinued Data reviewed ASSESSMENT/PLAN: 1. Essential hypertension, benign - ICD9: 401.1, ICD10: I10 - Controlled - Continue current medications - Recommend home blood pressure monitoring, to bring results to next visit - Encouraged sodium restriction, DASH or Mediterranean diet - Recommend regular aerobic exercise - AMLODIPINE 10 MG TABLET Alida Jaeger PA-C documented in this encounterOhio[facility]02-19-2024 History of Present illness Narrative* Alida Jaeger PA-C - 12/15/2023 11:01 AM EST Chief Complaint Patient presents with: Recheck: Started amlodipine HPI Mónica Decker is a 73 year old female who presents here today for BP recheck. Patient was seen 1 month ago. BP was still elevated so amlodipine was added. Patient is tolerating medication well. Doesn't check bp at home. Last 6 Encounter BP Readings: Date: BP: 12/15/2023 167/89[recheck with bp machine[ 11/06/2023 187/62 10/16/2023 159/69 09/17/2023 170/92 08/11/2023 162/74 06/25/2023 151/83 Past medical history, appointments, medications, allergies reviewed. Previous Medical History PAST MEDICAL HISTORY Diagnosis Date 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 01/24/2021 Adenomatous colon polyp Allergic rhinitis 07/08/2005 Bilateral hip pain 06/05/2023 Dystrophic nail 01/24/2021 multiple bilateral toes. Elevated hemoglobin A1c 08/27/2018 Essential hypertension, benign 07/08/2005 Fracture left forearm and right radial head Hammer toes of both feet 01/24/2021 Hyperlipidemia, mixed 02/05/2018 As of 02/05/18 patient declines statin therapy. Medicare annual wellness visit, subsequent 08/27/2018 Medicare part B: 02/24/2014 last done: 08/27/2019 Morbid (severe) obesity due to excess calories (HCC) 02/06/2006 OAB (overactive bladder) 12/19/2020 Declines medication as of 12/19/20 Obesity, Class II, BMI 35-39.9 02/19/2021 SANDRA (obstructive sleep apnea) 07/08/2005 Had corrective surgery Personal history of colonic polyps 03/14/2016 Postsurgical hypothyroidism 09/04/2005 Primary osteoarthritis of both hips 06/20/2015 Primary osteoarthritis of both knees 06/20/2015 Previous Surgical History PAST SURGICAL HISTORY Procedure Laterality Date AMPUTATION TOE,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 ARTHROSCOPY KNEE DIAGNOSTIC W/WO SYNOVIAL BX SPX Arthroscopy, knee COLONOSCOPY 05/30/2022 Tubular Adenoma-repeat in 3 years COLONOSCOPY FLX DX W/COLLJ SPEC WHEN PFRMD years ago Colonoscopy COLONOSCOPY FLX DX W/COLLJ SPEC WHEN PFRMD 10/13/2013 Colonoscopy COLONOSCOPY FLX DX W/COLLJ SPEC WHEN PFRMD 03/14/2016 Colonoscopy COLONOSCOPY FLX DX W/COLLJ SPEC WHEN PFRMD 11/09/2018 Colonoscopy COLSC FLX W/RMVL OF TUMOR POLYP LESION SNARE TQ 06/15/2010 PAST SURGICAL HISTORY OF 1960 bladder surgery to enlarge opening PAST SURGICAL HISTORY OF uvulectomy for SANDRA SIGMOIDOSCOPY FLX DX W/COLLJ SPEC BR/WA IF PFRMD 12/06/2013 Sigmoidoscopy, flexible THYROIDECTOMY TOTAL/COMPLETE 2005 TOTAL HIP REPLACEMENT Right 06/25/2023 Family History FAMILY HISTORY Problem Relation Age of Onset Heart Father fluid on heart Glaucoma Father Hypertension Mother Stroke Brother Strabismus Brother Detached Retina Brother Patient Allergies ALLERGIES Allergen Reactions Latex Unknown Current Medications Current Outpatient Medications on File Prior to Visit Medication Sig amoxicillin (AMOXIL) 500 mg capsule Please take 4 capsules by mouth 1 (one) hour prior to your dental appointment. lisinopril (ZESTRIL) 40 mg tablet Take 1 tablet by mouth once daily. amLODIPine (NORVASC) 5 mg tablet Take 1 tablet by mouth once daily. naproxen sodium (ALEVE) 220 mg cap Take by mouth as needed. furosemide (LASIX) 40 mg tablet TAKE 1 TABLET BY MOUTH EVERY DAY levothyroxine (LEVOXYL) 150 mcg tablet Take 1 tablet by mouth once daily. Fri- Fri and /2 a tab on Friday. pravastatin (PRAVACHOL) 10 mg tablet Take 1 tablet by mouth once daily. mometasone (ELOCON) 0.1 % cream Apply to areas twice a day. On for 4 days and off for 3 days. Repeat as needed. Lactobac no.41/Bifidobact no.7 (PROBIOTIC-10 ORAL) Take 1-2 tablets by mouth once daily. OTC PRODUCT Takes beet powder daily cholecalciferol, vitamin D3, (VITAMIN D3 ORAL) Take 1 tablet by mouth once daily. COLLAGEN MISC 1 tablet once daily. Collagen blend + #2 omega-3 fatty acids 1,000 mg cap Take 1 capsule by mouth three times daily. COENZYME Q10 60 MG CAP Take one(1) tablet daily. multivitamins w-minerals(DAILY MULTIVITAMIN-MINERALS TAB) Take one(1) tablet daily. ascorbic acid, vitamin C, (VITAMIN C) 500 mg tablet Take 1 tablet by mouth twice daily with meals for 28 doses. No current facility-administered medications on file prior to visit. Social History Social History Tobacco Use Smoking status: Never Smokeless tobacco: Never Tobacco comments: Mom used to smoke, quit 2011 Vaping Use Vaping Use: Never used Substance Use Topics Alcohol use: No Drug use: No Review of Symptoms REVIEW OF SYSTEMS GENERAL: No weight loss, malaise or fevers RESPIRATORY: Negative for cough, hemoptysis, wheezing, COPD, dyspnea or shortness of breath CARDIOVASCULAR: Negative for chest pain, leg swelling, hypertension, CHF or palpitations EXAM: BP 167/89 (BP Site: Left Arm, BP Position: Sitting, BP Cuff Size: Regular Adult) Pulse 64 Temp 36.9 C (98.4 F) Resp 18 Wt 95.3 kg (210 lb) BMI 41.01 kg/m General Appearance: Well appearing, alert, in no acute distress, well-hydrated, well nourished.. obese Lungs: Lungs clear to auscultation. No wheezing, rhonchi, rales.. Heart: RRR without murmur, gallop, or rubs. No ectopy. Health Maintenance List Shingrix Vaccine(1 of 2) Never done RSV Vaccine(1 - 1-dose 60+ series) Never done Mammogram Screening due on 04/18/2022 BP Controlled (<130/80) due on 06/20/2022 Covid-19 Vaccine(2 - 2022- season) due on 06/27/2023 Advance Directive Discussion due on 10/27/2023 Depression Assessment Never done Annual PCP Team Chronic Disease Visit due on 11/06/2024 Colorectal Cancer Screening due on 05/30/2025 Diabetes Screening due on 09/17/2026 Lipid Screening due on 08/11/2028 DTaP,Tdap,Td Vaccine(3 - Td or Tdap) due on 06/04/2029 Bone Density Screening Completed Influenza Vaccine Discontinued Hepatitis C Screening Discontinued Pneumococcal Vaccine: 65+ Discontinued Data reviewed ASSESSMENT/PLAN: 1. Essential hypertension, benign - ICD9: 401.1, ICD10: I10 (primary diagnosis) - Uncontrolled - Continue current medications - Increase amlodipine - Recommend home blood pressure monitoring, to bring results to next visit - Encouraged sodium restriction, DASH or Mediterranean diet - Recommend regular aerobic exercise - Discussed need for and benefit of weight loss. BMI 41.01 kg/(m^2) - Follow up in 4 weeks for hypertension visit - AMLODIPINE 10 MG TABLET 2. Bilateral leg edema - ICD9: 782.3, ICD10: R60.0 - FUROSEMIDE 40 MG TABLET 3. Encounter for immunization - ICD9: V03.89, ICD10: Z23 - PFIZER-BIONTECH COVID-19 VACCINE (2022- SEASON) AGE 12+ YR Alida Jaeger PA-C documented in this encounterOhio[facility]02-19-2024 Miscellaneous Notes* Telephone Encounter - Erma Frias LPN - 12/15/2023 8:01 AM EST Spoke with pt and information listed below given. Pt verbalizes understanding. Apt booked. .Erma Frias LPN * Telephone Encounter - Ramiro Dominguez APRN.BRIANNE - 12/12/2023 1:48 PM EST Patient was supposed to follow up for BP check. Please schedule patient. * Telephone Encounter - Erma Frias LPN - 12/12/2023 12:48 PM EST Pt calling to see if she needs to continue on Amlodipine. If she is to continue will need a prescription sent in. Pharmacy updated. Please advise pt. Erma Frias LPN documented in this encounterOhio[facility]02-07-2024 Miscellaneous Notes* Telephone Encounter - Kelvin Dietrich LPN - 12/03/2023 11:35 AM EST Pt has appointment to review how med is working. Kelvin Dietrich LPN documented in this encounterOhiohealth [facility]02-05-2024 Miscellaneous Notes* Telephone Encounter - Rachna Orr - 12/01/2023 10:55 AM EST Please reach out to the patient and assist with scheduling a pre-op appointment in January sometime. She is looking to have her left hip replaced in the summertime. She can be reached at [phone]. Rachna Jay documented in this encounterOhiohealth [facility]02-05-2024 Miscellaneous Notes* Telephone Encounter - Rachna Orr - 12/01/2023 10:49 AM EST Patient calling in. She has a dental appointment on Friday. Pharmacy and allergies were confirmed. Patient phones requesting refills as follows: Requested Prescriptions Pending Prescriptions Disp Refills amoxicillin (AMOXIL) 500 mg capsule 4 capsule 3 Sig: Please take 4 capsules by mouth 1 (one) hour prior to your dental appointment. Please review and advise. Rachna Jay documented in this encounterOhiohealth [facility]01-04-2024 History of Present illness Narrative* López Randall - 10/30/2023 3:12 PM EST Consultation requested by Dr. Dominguez for an opinion regarding toenails. My final recommendations will be communicated back to the requesting physician by way of shared Medical record or letter to requesting physician via US mail. Initial Podiatric Office Visit: Chief Complaint: This 73 year old female who presents with chief complaint:elongated toenails that are difficult to manage HPI Patient presents to clinic for evaluation of b/l feet. Her greatest complaint is elongated toenails in need of debridement She had right hip arthroplasty in May and since her surgery, is unable to cut them. PAIN EVALUATION No data found in the last 1 encounters. Hemoglobin A1C (%) Date Value 08/11/2023 5.0 01/09/2023 5.1 02/14/2022 5.4 06/20/2021 5.4 12/19/2020 5.4 06/20/2020 5.6 08/27/2019 5.6 02/24/2019 5.6 PCP: Mateo Marmolejo MD PAST MEDICAL HISTORY Diagnosis Date 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 01/24/2021 Adenomatous colon polyp Allergic rhinitis 07/08/2005 Bilateral hip pain 06/05/2023 Dystrophic nail 01/24/2021 multiple bilateral toes. Elevated hemoglobin A1c 08/27/2018 Essential hypertension, benign 07/08/2005 Fracture left forearm and right radial head Hammer toes of both feet 01/24/2021 Hyperlipidemia, mixed 02/05/2018 As of 02/05/18 patient declines statin therapy. Medicare annual wellness visit, subsequent 08/27/2018 Medicare part B: 02/24/2014 last done: 08/27/2019 Morbid (severe) obesity due to excess calories (HCC) 02/06/2006 OAB (overactive bladder) 12/19/2020 Declines medication as of 12/19/20 Obesity, Class II, BMI 35-39.9 02/19/2021 SANDRA (obstructive sleep apnea) 07/08/2005 Had corrective surgery Personal history of colonic polyps 03/14/2016 Postsurgical hypothyroidism 09/04/2005 Primary osteoarthritis of both hips 06/20/2015 Primary osteoarthritis of both knees 06/20/2015 Current Outpatient Medications Medication Sig naproxen sodium (ALEVE) 220 mg cap Take by mouth as needed. lisinopril (ZESTRIL) 20 mg tablet Take 2 tablets by mouth once daily. furosemide (LASIX) 40 mg tablet TAKE 1 TABLET BY MOUTH EVERY DAY levothyroxine (LEVOXYL) 150 mcg tablet Take 1 tablet by mouth once daily. Mon- Sat and 1/2 a tab on Friday. pravastatin (PRAVACHOL) 10 mg tablet Take 1 tablet by mouth once daily. mometasone (ELOCON) 0.1 % cream Apply to areas twice a day. On for 4 days and off for 3 days. Repeat as needed. Lactobac no.41/Bifidobact no.7 (PROBIOTIC-10 ORAL) Take 1-2 tablets by mouth once daily. OTC PRODUCT Takes beet powder daily cholecalciferol, vitamin D3, (VITAMIN D3 ORAL) Take 1 tablet by mouth once daily. COLLAGEN MISC 1 tablet once daily. Collagen blend + #2 omega-3 fatty acids 1,000 mg cap Take 1 capsule by mouth three times daily. COENZYME Q10 60 MG CAP Take one(1) tablet daily. multivitamins w-minerals(DAILY MULTIVITAMIN-MINERALS TAB) Take one(1) tablet daily. ascorbic acid, vitamin C, (VITAMIN C) 500 mg tablet Take 1 tablet by mouth twice daily with meals for 28 doses. acetaminophen (TYLENOL) 500 mg tablet Take 2 tablets by mouth every 8 hours as needed for pain. (Patient not taking: Reported on 10/30/2023) aspirin, enteric coated (ASPIRIN, ENTERIC COATED) 81 mg EC tablet Take 1 tablet by mouth twice daily for [address] (PROTONIX) 20 mg tablet Take 1 tablet by mouth every morning for 14 days. oxyCODONE IR (ROXICODONE) 5 mg immediate release tablet Take 1-2 tablets by mouth every 6 hours as needed for pain. (Patient not taking: Reported on 08/12/2023) peg 3350-Electrolytes (GOLYTELY) 236-22.74-6.74 -5.86 gram suspension Refer to printed prep instructions from your provider. (Patient not taking: Reported on 10/30/2023) No current facility-administered medications for this visit. 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 ARTHROSCOPY KNEE DIAGNOSTIC W/WO SYNOVIAL BX SPX Arthroscopy, knee COLONOSCOPY 05/30/2022 Tubular Adenoma-repeat in 3 years COLONOSCOPY FLX DX W/COLLJ SPEC WHEN PFRMD years ago Colonoscopy COLONOSCOPY FLX DX W/COLLJ SPEC WHEN PFRMD 10/13/2013 Colonoscopy COLONOSCOPY FLX DX W/COLLJ SPEC WHEN PFRMD 03/14/2016 Colonoscopy COLONOSCOPY FLX DX W/COLLJ SPEC WHEN PFRMD 11/09/2018 Colonoscopy COLSC FLX W/RMVL OF TUMOR POLYP LESION SNARE TQ 06/15/2010 PAST SURGICAL HISTORY OF 1960 bladder surgery to enlarge opening PAST SURGICAL HISTORY OF uvulectomy for SANDRA SIGMOIDOSCOPY FLX DX W/COLLJ SPEC BR/WA IF PFRMD 12/06/2013 Sigmoidoscopy, flexible THYROIDECTOMY TOTAL/COMPLETE 2005 TOTAL HIP REPLACEMENT Right 06/25/2023 FAMILY HISTORY Problem Relation Age of Onset Heart Father fluid on heart Glaucoma Father Hypertension Mother Stroke Brother Strabismus Brother Detached Retina Brother Social History Tobacco Use Smoking status: Never Smokeless tobacco: Never Tobacco comments: Mom used to smoke, quit 2011 Vaping Use Vaping Use: Never used Substance Use Topics Alcohol use: No Drug use: No REVIEW OF SYSTEMS GENERAL: Negative for Malaise, significant weight loss, fever RESPIRATORY: Negative for cough, wheezing and shortness of breath CARDIOVASCULAR: Negative for chest pain, leg swelling and palpitations GI: Negative for abdominal discomfort, blood in stools or black stools and change in bowel habits : Negative for dysuria, frequency and incontinence MUSCULOSKELETAL: Negative for joint pain or swelling, back pain, and muscle pain. SKIN: Negative for lesions, rash, and itching. HEMATOLOGY/LYMPHOLOGY Negative for prolonged bleeding, bruising easily, and swollen nodes. ENDOCRINE: Negative for cold or heat intolerance, polyuria, polydipsia and goiter. NEURO: negative Physical Exam: Constitutional: Pt is a well developed 73 year old female who is alert, oriented and cooperative Eyes: Following during examination. No redness or drainage. Respiratory: RR normal and nonlabored. Even breathing. No evidence of distress or shortness of breath. Psychology: Patient is engaged during conversation. Normal affect and mood. Does not appear depressed or anxious during encounter. Vascular: Dorsalis pedis and posterior tibial pulses palpable as b/l Capillary Fill time < 5 seconds to digits 1-5 b/l Skin temperature warm to cool proximal to distal b/l Hair growth decreased to digits Neurological: intact light touch/epicritic sensation b/l intact protective sensation no significant neurological deficits Dermatological: Nails 1-5 b/l appear thick, elongated, painful. Webspaces clean and dry 1-4 b/l. Skin appears well hydrated and supple. good color, texture, turgor. No open lesions present. No callosities present. Musculoskeletal/Orthopaedic: Patient has pain to palpation of toenails of b/l feet Foot type is neutral structurally AJ ROM is full with knee extended and flexed 1st MPJ is full when loaded and no pain or crepitus are noted with ROM. MTJ, STJ are full and free of pain and crepitus. +5/5 muscle strength dorsiflexion, plantarflexion, inversion, eversion b/l Radiographs: n/a ASSESSMENT: (B35.1) Onychomycosis (primary encounter diagnosis) (L60.0) Ingrown toenail (M79.675) Pain in toe of left foot (M79.674) Pain in toe of right foot PLAN: Toenails 1-5 b/l debrided in length and thickness Call if any issues arise F/u prn López Randall DPM Podiatry [address] [place] [address] Dept: [phone] Dept * Shola Amaro RN - 10/30/2023 2:58 PM EST Patient presents with: Left Foot - Established Patient, nail care Right Foot - Established Patient, nail care Patient presents for nail care, history of ingrown's. States that she had a right hip replacement and is no longer able to reach her feet, especially the nails. Thick and discolored nails to bilateral 2nd and 3rd toes. documented in this encounterOhio[facility] History of Present illness Narrative* Ramiro Dominguez APRN.FINISHING TUNNEL OPERATOR - 10/16/2023 11:22 AM EST Chief Complaint Patient presents with: Follow Up: BLOOD PRESSURE HPI Mónica Decker is a 73 year old female who presents here today for Above Complaints.. Patient presents for bp follow up. Patient was seen 09/17 at which time her lisinopril and lasix were increased. Past medical history, appointments, medications, allergies reviewed. Previous Medical History PAST MEDICAL HISTORY Diagnosis Date 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 01/24/2021 Adenomatous colon polyp Allergic rhinitis 07/08/2005 Bilateral hip pain 06/05/2023 Dystrophic nail 01/24/2021 multiple bilateral toes. Elevated hemoglobin A1c 08/27/2018 Essential hypertension, benign 07/08/2005 Fracture left forearm and right radial head Hammer toes of both feet 01/24/2021 Hyperlipidemia, mixed 02/05/2018 As of 02/05/18 patient declines statin therapy. Medicare annual wellness visit, subsequent 08/27/2018 Medicare part B: 02/24/2014 last done: 08/27/2019 Morbid (severe) obesity due to excess calories (HCC) 02/06/2006 OAB (overactive bladder) 12/19/2020 Declines medication as of 12/19/20 Obesity, Class II, BMI 35-39.9 02/19/2021 SANDRA (obstructive sleep apnea) 07/08/2005 Had corrective surgery Personal history of colonic polyps 03/14/2016 Postsurgical hypothyroidism 09/04/2005 Primary osteoarthritis of both hips 06/20/2015 Primary osteoarthritis of both knees 06/20/2015 Previous Surgical History PAST SURGICAL HISTORY Procedure Laterality Date AMPUTATION TOE,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 ARTHROSCOPY KNEE DIAGNOSTIC W/WO SYNOVIAL BX SPX Arthroscopy, knee COLONOSCOPY 05/30/2022 Tubular Adenoma-repeat in 3 years COLONOSCOPY FLX DX W/COLLJ SPEC WHEN PFRMD years ago Colonoscopy COLONOSCOPY FLX DX W/COLLJ SPEC WHEN PFRMD 10/13/2013 Colonoscopy COLONOSCOPY FLX DX W/COLLJ SPEC WHEN PFRMD 03/14/2016 Colonoscopy COLONOSCOPY FLX DX W/COLLJ SPEC WHEN PFRMD 11/09/2018 Colonoscopy COLSC FLX W/RMVL OF TUMOR POLYP LESION SNARE TQ 06/15/2010 PAST SURGICAL HISTORY OF 1960 bladder surgery to enlarge opening PAST SURGICAL HISTORY OF uvulectomy for SANDRA SIGMOIDOSCOPY FLX DX W/COLLJ SPEC BR/WA IF PFRMD 12/06/2013 Sigmoidoscopy, flexible THYROIDECTOMY TOTAL/COMPLETE 2005 TOTAL HIP REPLACEMENT Right 06/25/2023 Family History FAMILY HISTORY Problem Relation Age of Onset Heart Father fluid on heart Glaucoma Father Hypertension Mother Stroke Brother Strabismus Brother Detached Retina Brother Patient Allergies ALLERGIES Allergen Reactions Latex Unknown Current Medications Current Outpatient Medications on File Prior to Visit Medication Sig furosemide (LASIX) 40 mg tablet TAKE 1 TABLET BY MOUTH EVERY DAY lisinopril (ZESTRIL) 20 mg tablet TAKE 1 TABLET BY MOUTH EVERY DAY levothyroxine (LEVOXYL) 150 mcg tablet Take 1 tablet by mouth once daily. Mon- Fri and 1/2 a tab on Friday. ascorbic acid, vitamin C, (VITAMIN C) 500 mg tablet Take 1 tablet by mouth twice daily with meals for 28 doses. acetaminophen (TYLENOL) 500 mg tablet Take 2 tablets by mouth every 8 hours as needed for pain. aspirin, enteric coated (ASPIRIN, ENTERIC COATED) 81 mg EC tablet Take 1 tablet by mouth twice daily for [address] (PROTONIX) 20 mg tablet Take 1 tablet by mouth every morning for 14 days. oxyCODONE IR (ROXICODONE) 5 mg immediate release tablet Take 1-2 tablets by mouth every 6 hours as needed for pain. (Patient not taking: Reported on 08/12/2023) pravastatin (PRAVACHOL) 10 mg tablet Take 1 tablet by mouth once daily. mometasone (ELOCON) 0.1 % cream Apply to areas twice a day. On for 4 days and off for 3 days. Repeat as needed. Lactobac no.41/Bifidobact no.7 (PROBIOTIC-10 ORAL) Take 1-2 tablets by mouth once daily. peg 3350-Electrolytes (GOLYTELY) 236-22.74-6.74 -5.86 gram suspension Refer to printed prep instructions from your provider. OTC PRODUCT Takes beet powder daily cholecalciferol, vitamin D3, (VITAMIN D3 ORAL) Take 1 tablet by mouth once daily. COLLAGEN MISC 1 tablet once daily. Collagen blend + #2 omega-3 fatty acids 1,000 mg cap Take 1 capsule by mouth three times daily. COENZYME Q10 60 MG CAP Take one(1) tablet daily. multivitamins w-minerals(DAILY MULTIVITAMIN-MINERALS TAB) Take one(1) tablet daily. No current facility-administered medications on file prior to visit. Social History Social History Tobacco Use Smoking status: Never Smokeless tobacco: Never Tobacco comments: Mom used to smoke, quit 2012 Vaping Use Vaping Use: Never used Substance Use Topics Alcohol use: No Drug use: No Review of Symptoms REVIEW OF SYSTEMS SEE HPI EXAM: BP 173/76 Pulse 65 Resp 16 Wt 95.3 kg (210 lb) BMI 41.01 kg/m General Appearance: Well appearing, alert, in no acute distress, well-hydrated, well nourished.. Lungs: Lungs clear to auscultation. No wheezing, rhonchi, rales.. Heart: RRR without murmur, gallop, or rubs. No ectopy. Extremities: Edema: 1-2+ pitting B/L LE. Health Maintenance List Shingrix Vaccine(1 of 2) Never done RSV Vaccine(1 - 1-dose 60+ series) Never done Mammogram Screening due on 04/18/2022 BP Controlled (<130/80) due on 06/20/2022 Advance Directive Discussion due on 10/27/2022 Depression Assessment Never done Covid-19 Vaccine( season) due on 06/27/2023 Annual PCP Team Chronic Disease Visit due on 09/17/2024 Colorectal Cancer Screening due on 05/30/2025 Diabetes Screening due on 09/17/2026 Lipid Screening due on 08/11/2028 DTaP,Tdap,Td Vaccine(3 - Td or Tdap) due on 06/04/2029 Bone Density Screening Completed Influenza Vaccine Discontinued Hepatitis C Screening Discontinued Pneumococcal Vaccine: 65+ Discontinued Data reviewed Last 5 Encounter BP Readings: Date: BP: 10/16/2023 173/76 09/17/2023 170/92 08/11/2023 162/74 06/25/2023 151/83 06/13/2023 132/74 ASSESSMENT/PLAN: 1. Essential hypertension, benign - ICD9: 401.1, ICD10: I10 - Uncontrolled - Increase lisinopril - Recommend home blood pressure monitoring, to bring results to next visit - Encouraged sodium restriction, DASH or Mediterranean diet - Recommend regular aerobic exercise - Discussed need for and benefit of weight loss. BMI 41.01 kg/(m^2) - LISINOPRIL 20 MG TABLET-TAKE 2 TABLETS DAILY Follow up in 3 weeks for BP check. Ramiro Dominguez APRN.FINISHING TUNNEL OPERATOR documented in this encounterOhio[facility]11-24-2023 Miscellaneous Notes* Telephone Encounter - Shola Shaver RN - 09/19/2023 8:36 AM EST Pt called and is notified of providers results and instructions. Pt voices understanding. Shola Shaver RN * Telephone Encounter - Mateo Marmolejo MD - 09/18/2023 11:25 AM EST Advise myrtle her thyroid function is better but getting lightly too much levothyroxine. Tell her to stay on the 150 mcg tab but change dosing to one Fri- Fri and 1/2 a tab on Friday. Order placed to get repeat thyroid lab in 2 months documented in this encounterOhio[facility]11-22-2023 History of Present illness Narrative* Ramiro Dominguez APRN.FINISHING TUNNEL OPERATOR - 09/17/2023 11:49 AM EST Chief Complaint Patient presents with: 6 Month Exam HPI Mónica Decker is a 73 year old female who presents here today for Above Complaints.. Patient presents for routine follow up. Patient reports she is currently doing well but needs her toenails trimmed. Past medical history, appointments, medications, allergies reviewed. Previous Medical History PAST MEDICAL HISTORY Diagnosis Date 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 01/24/2021 Adenomatous colon polyp Allergic rhinitis 07/08/2005 Bilateral hip pain 06/05/2023 Dystrophic nail 01/24/2021 multiple bilateral toes. Elevated hemoglobin A1c 08/27/2018 Essential hypertension, benign 07/08/2005 Fracture left forearm and right radial head Hammer toes of both feet 01/24/2021 Hyperlipidemia, mixed 02/05/2018 As of 02/05/18 patient declines statin therapy. Medicare annual wellness visit, subsequent 08/27/2018 Medicare part B: 02/24/2014 last done: 08/27/2019 Morbid (severe) obesity due to excess calories (HCC) 02/06/2006 OAB (overactive bladder) 12/19/2020 Declines medication as of 12/19/20 Obesity, Class II, BMI 35-39.9 02/19/2021 SANDRA (obstructive sleep apnea) 07/08/2005 Had corrective surgery Personal history of colonic polyps 03/14/2016 Postsurgical hypothyroidism 09/04/2005 Primary osteoarthritis of both hips 06/20/2015 Primary osteoarthritis of both knees 06/20/2015 Previous Surgical History PAST SURGICAL HISTORY Procedure Laterality Date AMPUTATION TOE,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 ARTHROSCOPY KNEE DIAGNOSTIC W/WO SYNOVIAL BX SPX Arthroscopy, knee COLONOSCOPY 05/30/2022 Tubular Adenoma-repeat in 3 years COLONOSCOPY FLX DX W/COLLJ SPEC WHEN PFRMD years ago Colonoscopy COLONOSCOPY FLX DX W/COLLJ SPEC WHEN PFRMD 10/13/2013 Colonoscopy COLONOSCOPY FLX DX W/COLLJ SPEC WHEN PFRMD 03/14/2016 Colonoscopy COLONOSCOPY FLX DX W/COLLJ SPEC WHEN PFRMD 11/09/2018 Colonoscopy COLSC FLX W/RMVL OF TUMOR POLYP LESION SNARE TQ 06/15/2010 PAST SURGICAL HISTORY OF 1960 bladder surgery to enlarge opening PAST SURGICAL HISTORY OF uvulectomy for SANDRA SIGMOIDOSCOPY FLX DX W/COLLJ SPEC BR/WA IF PFRMD 12/06/2013 Sigmoidoscopy, flexible THYROIDECTOMY TOTAL/COMPLETE 2005 TOTAL HIP REPLACEMENT Right 06/25/2023 Family History FAMILY HISTORY Problem Relation Age of Onset Heart Father fluid on heart Glaucoma Father Hypertension Mother Stroke Brother Strabismus Brother Detached Retina Brother Patient Allergies ALLERGIES Allergen Reactions Latex Unknown Current Medications Current Outpatient Medications on File Prior to Visit Medication Sig levothyroxine (LEVOXYL) 150 mcg tablet Take 1 tablet by mouth once daily. Take on empty stomach. For Thyroid. furosemide (LASIX) 20 mg tablet Take 1 tablet by mouth once daily. lisinopril (ZESTRIL) 10 mg tablet Take 1 tablet by mouth once daily. ascorbic acid, vitamin C, (VITAMIN C) 500 mg tablet Take 1 tablet by mouth twice daily with meals for 28 doses. acetaminophen (TYLENOL) 500 mg tablet Take 2 tablets by mouth every 8 hours as needed for pain. aspirin, enteric coated (ASPIRIN, ENTERIC COATED) 81 mg EC tablet Take 1 tablet by mouth twice daily for [address] (PROTONIX) 20 mg tablet Take 1 tablet by mouth every morning for 14 days. oxyCODONE IR (ROXICODONE) 5 mg immediate release tablet Take 1-2 tablets by mouth every 6 hours as needed for pain. (Patient not taking: Reported on 08/12/2023) pravastatin (PRAVACHOL) 10 mg tablet Take 1 tablet by mouth once daily. mometasone (ELOCON) 0.1 % cream Apply to areas twice a day. On for 4 days and off for 3 days. Repeat as needed. Lactobac no.41/Bifidobact no.7 (PROBIOTIC-10 ORAL) Take 1-2 tablets by mouth once daily. peg 3350-Electrolytes (GOLYTELY) 236-22.74-6.74 -5.86 gram suspension Refer to printed prep instructions from your provider. OTC PRODUCT Takes beet powder daily cholecalciferol, vitamin D3, (VITAMIN D3 ORAL) Take 1 tablet by mouth once daily. COLLAGEN MISC 1 tablet once daily. Collagen blend + #2 omega-3 fatty acids 1,000 mg cap Take 1 capsule by mouth three times daily. COENZYME Q10 60 MG CAP Take one(1) tablet daily. multivitamins w-minerals(DAILY MULTIVITAMIN-MINERALS TAB) Take one(1) tablet daily. No current facility-administered medications on file prior to visit. Social History Social History Tobacco Use Smoking status: Never Smokeless tobacco: Never Tobacco comments: Mom used to smoke, quit 2011 Vaping Use Vaping Use: Never used Substance Use Topics Alcohol use: No Drug use: No Review of Symptoms REVIEW OF SYSTEMS SEE HPI EXAM: BP 170/92 Pulse 94 Resp 18 Wt 96.2 kg (212 lb) SpO2 98% BMI 41.40 kg/m General Appearance: Well appearing, alert, in no acute distress, well-hydrated, well nourished.. Skin: Positives: Dry skin to bilateral feet and legs. Lungs: Lungs clear to auscultation. No wheezing, rhonchi, rales.. Heart: RRR without murmur, gallop, or rubs. No ectopy. Health Maintenance List Shingrix Vaccine(1 of 2) Never done RSV Vaccine(1 - 1-dose 60+ series) Never done Mammogram Screening due on 04/18/2022 BP Controlled (<130/80) due on 06/20/2022 Advance Directive Discussion due on 10/27/2022 Depression Assessment Never done Covid-19 Vaccine( season) due on 06/27/2023 Annual PCP Team Chronic Disease Visit due on 08/11/2024 Colorectal Cancer Screening due on 05/30/2025 Diabetes Screening due on 08/11/2026 Lipid Screening due on 08/11/2028 DTaP,Tdap,Td Vaccine(3 - Td or Tdap) due on 06/04/2029 Bone Density Screening Completed Influenza Vaccine Discontinued Hepatitis C Screening Discontinued Pneumococcal Vaccine: 65+ Discontinued ASSESSMENT/PLAN: 1. Ingrown toenail - ICD9: 703.0, ICD10: L60.0 (primary diagnosis) - CONSULT TO PODIATRY 2. detention current use of diuretic - ICD9: V58.69, ICD10: Z79.899 - BASIC METABOLIC PNL 3. Essential hypertension, benign - ICD9: 401.1, ICD10: I10 - Uncontrolled - Increase lisinopril, furosemide - Recommend home blood pressure monitoring, to bring results to next visit - Encouraged sodium restriction, DASH or Mediterranean diet - Recommend regular aerobic exercise - Discussed need for and benefit of weight loss. BMI 41.40 kg/(m^2) - LISINOPRIL 20 MG TABLET 4. Bilateral leg edema - ICD9: 782.3, ICD10: R60.0 - FUROSEMIDE 20 MG TABLET Follow up in 4 weeks for BP check. Ramiro Dominguez APRN.FINISHING TUNNEL OPERATOR documented in this encounterOhio[facility]10-18-2023 Miscellaneous Notes* Telephone Encounter - Mateo Marmolejo MD - 08/13/2023 11:23 AM EDT Noted. * Telephone Encounter - Monty Minor RN - 08/13/2023 10:10 AM EDT Phoned patient and given provider's message below with verbalized understanding. Discussed instructions for thyroid medication and instructed to take on an empty stomach 30 min to 1 hour before breakfast. Patient reports she has never done that, was not aware she needed to. Reports she has always taken it after breakfast. Patient agreeable to start taking the thyroid medication on an empty stomach from now on. Transferred to [facility] to schedule ECHO. * Telephone Encounter - Mateo Marmolejo MD - 08/12/2023 9:16 PM EDT Let patient know her blood count shows her post op anemia is resolved. Her test for congestive heart failure is mildly positive and the Furosamide will help this. I have ordered a 2D echo to further evaluate heart function. Her thyroid lab is elevated meaning she is not getting enough replacement medication. I'm going to increase the levothyroxine to 150 mcg once a day. New script sent and an order was placed to get a repeat thyroid lab on or after 10/13/2023. documented in this encounterOhio[facility]10-17-2023 History of Present illness Narrative* Julio Cesar Deluna MD - 08/12/2023 3:38 PM EDT Post-op Office Visit Mónica Decker 73 year old August 12, 2023 3:39 PM History: Mónica Decker Is now 7 weeks out from /Posterior COTY. Post-operative course has been without complication. no readmission/complications Subjective: Patient reports minimal to no pain. Overall is doing well. + ambulatory aid, contralateral hip giving her significant trouble off opioid pain medication Objective: Ambulates with slight limp Incision well-approximated, no drainage, normal carol-incisional erythema Arcs of motion at hip are comfortable and fluid Distally DP/PT palpable Distally S/S/SP/DP/T intact at baseline Distally DF/EHL/PF intact at baseline Negative ann marie/calf tenderness Xrays: No new today Assessment and Plan: Mónica Decker Is here for a second post-op appointment, overall doing well -continued ice, rest, and use of non-narcotic analgesia as needed -wean off ambulatory aids -discussed home exercises and therapy -WBA on operative extremity -reinforced posterior precautions through 8 weeks: avoid extremes of flexion, internal rotation, and adduction -continue ankle pumps and dvt ppx through 4 weeks -discussed driving requirement: 4 weeks post-op, off narcotic pain medication, adequate brake time -will see back at 1 year appointment for clinical exam and post-op xrays--can see earlier if needed -discussed red flag symptoms of acutely increasing pain, new erythema, new swelling, drainage, shortness of breath -ok to schedule L COTY when ready Julio Cesar Deluna MD Orthopaedic Surgery documented in this encounterOhio[facility]10-16-2023 Instructions* Patient Instructions* Mateo Marmolejo MD - 08/11/2023 2:28 PM EDT Stop the hydrochlorothiazide 25 mg and start the Furosamide 20 mg once a day. documented in this encounterOhiohealth [facility]10-16-2023 History of Present illness Narrative* Mateo Marmolejo MD - 08/11/2023 1:40 PM EDT Chief Complaint Patient presents with: ED Follow-up HPI Mónica Decker is a 73 year old female who presents here today for 6 month follow up. Upon review of chart patient is past due for her medicare wellness. Patient was sent to the [facility] for lower extremity edema after contacting office. Patient has been having bilateral lower extremity edema. Patient did have right hip replacement 6 weeks ago. Did home health for about 3 weeks but they have not been out for about 3 weeks. Venous US completed and was negative. No chest x- ray as completed or labs. Any improvement? Patient continues to have swelling in both legs below the knees. Patient still having redness in both feet. She has noticed more discomfort in the left hip. Patient's brother is here today and brings up the fact that prior to surgery she only had a couch and basically laid often. Since surgery patient has a lift chair and is sitting more. Denies any increased shortness of breath. No orthopnea or paroxysmal nocturnal shortness of breath. Brother says she typical sits in her chair for 12-15 hrs a day No chest pain or palpitations. No noticeable weakness other then post op cowart. Past medical history, appointments, medications, allergies reviewed. Patient is indicated that she is seeing Ortho tomorrow afternoon. They are rechecking her hip. Previous Medical History PAST MEDICAL HISTORY Diagnosis Date 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 01/24/2021 Adenomatous colon polyp Allergic rhinitis 07/08/2005 Bilateral hip pain 06/05/2023 Dystrophic nail 01/24/2021 multiple bilateral toes. Elevated hemoglobin A1c 08/27/2018 Essential hypertension, benign 07/08/2005 Fracture left forearm and right radial head Hammer toes of both feet 01/24/2021 Hyperlipidemia, mixed 02/05/2018 As of 02/05/18 patient declines statin therapy. Medicare annual wellness visit, subsequent 08/27/2018 Medicare part B: 02/24/2014 last done: 08/27/2019 Morbid (severe) obesity due to excess calories (HCC) 02/06/2006 OAB (overactive bladder) 12/19/2020 Declines medication as of 12/19/20 Obesity, Class II, BMI 35-39.9 02/19/2021 SANDRA (obstructive sleep apnea) 07/08/2005 Had corrective surgery Personal history of colonic polyps 03/14/2016 Postsurgical hypothyroidism 09/04/2005 Primary osteoarthritis of both hips 06/20/2015 Primary osteoarthritis of both knees 06/20/2015 Previous Surgical History PAST SURGICAL HISTORY Procedure Laterality Date AMPUTATION TOE,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 ARTHROSCOPY KNEE DIAGNOSTIC W/WO SYNOVIAL BX SPX Arthroscopy, knee COLONOSCOPY 05/30/2022 Tubular Adenoma-repeat in 3 years COLONOSCOPY FLX DX W/COLLJ SPEC WHEN PFRMD years ago Colonoscopy COLONOSCOPY FLX DX W/COLLJ SPEC WHEN PFRMD 10/13/2013 Colonoscopy COLONOSCOPY FLX DX W/COLLJ SPEC WHEN PFRMD 03/14/2016 Colonoscopy COLONOSCOPY FLX DX W/COLLJ SPEC WHEN PFRMD 11/09/2018 Colonoscopy COLSC FLX W/RMVL OF TUMOR POLYP LESION SNARE TQ 06/15/2010 PAST SURGICAL HISTORY OF 1960 bladder surgery to enlarge opening PAST SURGICAL HISTORY OF uvulectomy for SANDRA SIGMOIDOSCOPY FLX DX W/COLLJ SPEC BR/WA IF PFRMD 12/06/2013 Sigmoidoscopy, flexible THYROIDECTOMY TOTAL/COMPLETE 2004 Family History FAMILY HISTORY Problem Relation Age of Onset Heart Father fluid on heart Glaucoma Father Hypertension Mother Stroke Brother Strabismus Brother Detached Retina Brother Patient Allergies ALLERGIES Allergen Reactions Latex Unknown Current Medications Current Outpatient Medications on File Prior to Visit Medication Sig acetaminophen (TYLENOL) 500 mg tablet Take 2 tablets by mouth every 8 hours as needed for pain. ascorbic acid, vitamin C, (VITAMIN C) 500 mg tablet Take 1 tablet by mouth twice daily with meals for 28 doses. aspirin, enteric coated (ASPIRIN, ENTERIC COATED) 81 mg EC tablet Take 1 tablet by mouth twice daily for 28 days. cholecalciferol, vitamin D3, (VITAMIN D3 ORAL) Take 1 tablet by mouth once daily. COENZYME Q10 60 MG CAP Take one(1) tablet daily. COLLAGEN MISC 1 tablet once daily. Collagen blend + #2 hydroCHLOROthiazide 25 mg tablet Take 1 tablet by mouth once daily. Lactobac no.41/Bifidobact no.7 (PROBIOTIC-10 ORAL) Take 1-2 tablets by mouth once daily. levothyroxine (SYNTHROID) 137 mcg tablet Take 1 tablet by mouth once daily. lisinopril (ZESTRIL) 10 mg tablet Take 1 tablet by mouth once daily. mometasone (ELOCON) 0.1 % cream Apply to areas twice a day. On for 4 days and off for 3 days. Repeat as needed. multivitamins w-minerals(DAILY MULTIVITAMIN-MINERALS TAB) Take one(1) tablet daily. omega-3 fatty acids 1,000 mg cap Take 1 capsule by mouth three times daily. OTC PRODUCT Takes beet powder daily oxyCODONE IR (ROXICODONE) 5 mg immediate release tablet Take 1-2 tablets by mouth every 6 hours as needed for pain. pantoprazole DR (PROTONIX) 20 mg tablet Take 1 tablet by mouth every morning for 14 days. peg 3350-Electrolytes (GOLYTELY) 236-22.74-6.74 -5.86 gram suspension Refer to printed prep instructions from your provider. pravastatin (PRAVACHOL) 10 mg tablet Take 1 tablet by mouth once daily. No current facility-administered medications on file prior to visit. Social History Social History Tobacco Use Smoking status: Never Smokeless tobacco: Never Tobacco comments: Mom used to smoke, quit 2011 Vaping Use Vaping Use: Never used Substance Use Topics Alcohol use: No Drug use: No Review of Symptoms REVIEW OF SYSTEMS See HPI EXAM: BP 180/98 (BP Site: Right Arm, BP Position: Sitting, BP Cuff Size: Regular Adult) Pulse 71 Temp37.2 C (98.9 F) (Tympanic) Resp 18 Wt 84.8 kg (187 lb) SpO2 95% BMI 36.52 kg/m General Appearance: Well appearing, alert, in no acute distress, well-hydrated, well nourished. andObese. Lungs: Lungs clear to auscultation. No wheezing, rhonchi, rales.. Heart: RRR without murmur, gallop, or rubs. No ectopy. Abdomen: Normal abdominal exam, Abdomen soft, non-tender. Bowel sounds normal. No masses, organomegaly. Extremities: No deformities. 2+ pitting edema with venous congestion. No skin break down signs of infection. Health Maintenance List Shingrix Vaccine(1 of 2) Never done Mammogram Screening due on 04/18/2022 BP Controlled (<130/80) due on 06/20/2022 Advance Directive Discussion due on 10/27/2022 Depression Assessment Never done Covid-19 Vaccine( season) due on 06/27/2023 Annual PCP Team Chronic Disease Visit due on 02/08/2024 Colorectal Cancer Screening due on 05/30/2025 Diabetes Screening due on 06/26/2026 Lipid Screening due on 01/10/2028 DTaP,Tdap,Td Vaccine(3 - Td or Tdap) due on 06/04/2029 Bone Density Screening Completed Influenza Vaccine Discontinued Hepatitis C Screening Discontinued Pneumococcal Vaccine: 65+ Discontinued Data reviewed [facility] report from A/P ASSESSMENT/PLAN: 1. Bilateral leg edema - ICD9: 782.3, ICD10: R60.0 (primary diagnosis) - will stop the HCTZ and start Lasix 20 mg a day - patient concerned about the fact that she already has incontinence issues and now being on a stronger diuretic. I informed her if she gets up and moves more the leg swelling will go down more and possibly enough that we could go back to the HCTZ. - encouraged increased walking and if sitting getting her legs elevated. - NT PRO BNP 2. Essential hypertension, benign - ICD9: 401.1, ICD10: I10 - Uncontrolled - Continue current medications - Recommend home blood pressure monitoring, to bring results to next visit - Encouraged sodium restriction, DASH or Mediterranean diet - Recommend regular aerobic exercise - stop the HCTZ and start lasix 20 mg a day - COMP METABOLIC PANEL - LIPID PANEL, NONFASTING 3. Post-operative hemoglobin drop - ICD9: 790.01, V45.89, ICD10: R71.0, Z98.890 Check - CBC + DIFF 4. Postsurgical hypothyroidism - ICD9: 244.0, ICD10: E89.0 - continue current dose of Synthroid Check - TSH BLD 5. Hyperlipidemia, mixed - ICD9: 272.2, ICD10: E78.2 - await labs - Counseled on healthy diet and regular exercise 6. Elevated hemoglobin A1c - ICD9: 790.29, ICD10: R73.09 Check - HGB A1C 7. Shortness of breath - ICD9: 786.05, ICD10: R06.02 Check - NT PRO BNP Requested Prescriptions Signed Prescriptions Disp Refills levothyroxine (SYNTHROID) 137 mcg tablet 90 tablet 1 Sig: Take 1 tablet by mouth once daily. furosemide (LASIX) 20 mg tablet 90 tablet 1 Sig: Take 1 tablet by mouth once daily. F/u 4 weeks routine will need BMP then I spent a total of 30 minutes on the date of the service which included preparing to see the patient, [id number] patient care, completing clinical documentation, performing a medically appropriate examination, counseling and educating the patient/family/caregiver and ordering medications, tests, or procedures. Mateo Marmolejo MD documented in this encounterOhiohealth [facility]10-10-2023 Miscellaneous Notes* Telephone Encounter - Erma Frias LPN - 08/05/2023 3:55 PM EDT Spoke with pt and information below given. Pt has agreed to go to [facility]. Erma Frias LPN * Telephone Encounter - Mateo Marmolejo MD - 08/05/2023 3:39 PM EDT Advise patient to go to the ER. She may have blood clots in both legs being s/p surgery. Would not advise waiting to get checked out since if these is blood clots she could hve one break off and go to her longs and cause cardiopulmonary arrest. Waiting to be seen in the office will also delay the diagnosis and put her at risk. * Telephone Encounter - Erma Frias LPN - 08/05/2023 2:16 PM EDT Pt called and she is 5 weeks post hip surgery. Past week pt having swelling in legs, feet and upper thighs are tight. Pt reports feet were red butnow light pink. No pain and nothing warm to touch. Denies fever, shortness of breath or chest pains. Pt asking if she needs something for swelling. Pt has apt scheduled for Friday with pcp. Not able to come in today to be seen because she has no transportation. If needs seen sooner can try to find transportation starting tomorrow. Please advise pt. Erma Frias LPN documented in this encounterOhiohealth [facility] Hospital10-04-2023 Miscellaneous Notes* Telephone Encounter - Angelic Bonilla RN - 07/30/2023 1:36 PM EDT Last OV 02/07/23 Next OV 08/11/23 Order pended to [facility] as Dr. Marmolejo is out * Telephone Encounter - Anthony Lou - 07/30/2023 12:58 PM EDT Please refill lisinopril [facility] to [facility] [address] in [place], thank you! documented in this encounterOhiohealth Marion [facility] Hospital09-14-2023 History of Present illness Narrative* Aysha Hernandez RN - 07/10/2023 1:50 PM EDT Post-op Office Visit Mónica Decker 73 year old July 10, 2023 1:51 PM Surgery Date: 06/25/23 History: Mónica Decker Is now 2 weeks out from right Posterior COTY. Post-operative course has been without complication. No readmission/complications Subjective: Patient reports 0/10 pain. Overall is doing well. Walker as ambulatory aid, in a w/c at appointment Off opioid pain medication, Tylenol as needed for aches Objective: Ambulates with a walker at home Incision well-approximated, no drainage, normal carol-incisional erythema Full ROM not tested do to early post-operative period, but smaller arcs of motion fluid and comfortable Distally DP/PT palpable Distally S/S/SP/DP/T intact at baseline Distally DF/EHL/PF intact at baseline Negative ann marie/calf tenderness Xrays: Well aligned total hip replacement in appropriate position with no evidence of loosening Assessment and Plan: Mónica Decker Is here for a first post-op appointment, overall doing well -continued ice, rest, and use of non-narcotic analgesia as needed -wean off ambulatory aids -discussed home exercises and therapy -WBAT on operative extremity -reinforced posterior precautions through 8 weeks: avoid extremes of flexion, internal rotation, and adduction -continue ankle pumps and dvt ppx through 4 weeks -discussed driving requirement: 4 weeks post-op, off narcotic pain medication, adequate brake time -will see back at 6 week appointment for clinical exam -discussed red flag symptoms of acutely increasing pain, new erythema, new swelling, drainage, shortness of breath Aysha Hernandez RN Orthopaedic Surgery documented in this encounterOhiohealth [facility] Hospital09-14-2023 History of Present illness Narrative* Peggy King Tech - 07/10/2023 12:40 PM EDT Radiology Service Progress Note PATIENT NAME: Mónica Decker DATE OF SERVICE: July 10, 2023 TIME: 12:41 PM PATIENT IDENTITY VERIFICATION COMPLETED USING TWO (2) IDENTIFIERS: Name and Date of confirmedby patient verbally. FALL SCREENING: Has the patient had 2 falls in the last year or 1 fall with injury or currently using an Ambulatory Assistive Device (Walker, Cane, Wheelchair, Crutches, etc.)? No PATIENT GENDER DATA: Female. status: : No status: NO. PATIENT RELEVANT IMPLANT DATA REVIEWED: Not Applicable RADIOLOGY DEPARTMENT: General X-ray: Exam(s) Completed: Pelvis X-Ray: Pelvis with Hip Right and Wt.Bearing PERIPHERAL IV DATA: Not applicable SIGNED BY: Martina Crawford July 10, 2023 12:41 PM documented in this encounterOhiohealth Marion General Hospital09-14-2023 NoteHNO ID: [id number] Author: Peggy King Tech Service: Radiology Author Type: Court Deputy Type: Progress Notes Filed: 07/10/2023 12:41 PM Note Text: Radiology Service Progress Note PATIENT NAME: Mónica Decker DATE OF SERVICE: July 10, 2023 TIME: 12:41 PM PATIENT IDENTITY VERIFICATION COMPLETED USING TWO (2) IDENTIFIERS: Name and Date of confirmed by patient verbally. FALL SCREENING: Has the patient had 2 falls in the last year or 1 fall with injury or currently using an Ambulatory Assistive Device (Walker, Cane, Wheelchair, Crutches, etc.)? No PATIENT GENDER DATA: Female. status: : No status: NO. PATIENT RELEVANT IMPLANT DATA REVIEWED: Not Applicable RADIOLOGY DEPARTMENT: General X-ray: Exam(s) Completed: Pelvis X-Ray: Pelvis with Hip Right and Wt. Bearing PERIPHERAL IV DATA: Not applicable SIGNED BY: Martina Crawford July 10, 2023 12:41 [id number] Miscellaneous Notes* Telephone Encounter - Aysha Hernandez RN - 06/27/2023 3:31 PM EDT Attempted to send patient a [employer] message but patient does not have [employer]. Called patient to let her know her post-op appointment changed from 1:30 to 1:00 pm. Also told her to come 20 minutes early for x-rays. Told her to come to Entrance D and to the 3rd floor for x-rays and her appointment. She verbalized understanding to all education provided. documented in this encounterOhiohealth Marion [facility] Hospital09-01-2023 Miscellaneous Notes* Telephone Encounter - Aysha Hernandez RN - 06/27/2023 2:50 PM EDT Brannon PT from [facility] calling. Stated he's going to start seeing the patient for PT at home for 3 weeks. Requested a phone call back so he knows we received his message. Spoke with Brannon and told him that I got his message. He verbalized understanding. * Telephone Encounter - Aysha Hernandez RN - 06/26/2023 8:07 AM EDT Cathryn from [facility] calling. Ph. [phone] to [address] Deluna will follow for home care. Called Cathryn to let her know Dr. Deluna will follow for home care. No answer, LVM explaining. documented in this encounterOhiohealth Marion [facility] Hospital08-31-2023 NoteHNO ID: [id number] Author: Byron Knight MD Service: General Internal Medicine Author Type: Physician Type: Progress Notes Filed: 06/26/2023 8:53 AM Note Text: INPATIENT CONSULT PROGRESS NOTES Patient Name: Mónica Decker DATE of SERVICE: 06/26/23 TIME of SERVICE: 7:35 CONSULTING SERVICE: Medicine Plan of care discussed with: Provider, RN, Patient. INTERVAL HPI: Uneventful night, pain is fairly controlled Patient seen and examined: Vitals/Meds/Labs/U/O reviewed Alert AND Oriented NO nausea, vomiting NO light headedness, NO shortness of breathe Dry oral mucosa CVS - RRR Lungs - Clear to auscultation Abdomen - soft, Nontender, normal bowel sounds LLE - Ankle No edema RLE - Ankle No edema MEDICATIONS: Current Facility-Administered Medications Medication Dose Route Frequency scopolamine - VERIFY patch OTHER q 8 H scopolamine - REMOVE PATCH OTHER ONCE pravastatin 10 mg tab(s) (PRAVACHOL) 10 mg ORAL DAILY lisinopril 10 mg tab(s) (ZESTRIL) 10 mg ORAL DAILY therapeutic multivitamin-minerals tablet (THERA-M PLUS) 1 tablet ORAL DAILY hydroCHLOROthiazide 25 mg tab(s) 25 mg ORAL DAILY levothyroxine 137 mcg tab(s) (SYNTHROID) 137 mcg ORAL DAILY aspirin, enteric coated 81 mg tab(s) 81 mg ORAL BID lactated ringers iv infusion 75 mL/hr INTRAVENOUS CONTINUOUS acetaminophen 1,000 mg tab(s) (TYLENOL) 1,000 mg ORAL q 8 H oxyCODONE IR 5-10 mg tab(s) (ROXICODONE) 5-10 mg ORAL q 3 H PRN HYDROmorphone 0.2 mg injection (DILAUDID) 0.2 mg INTRAVENOUS q 2 H PRN ondansetron orally disintegrating 4 mg tab(s) (ZOFRAN ODT) 4 mg ORAL q 6 H PRN Or ondansetron (PF) 4 mg injection (ZOFRAN) 4 mg INTRAVENOUS q 6 H PRN polyethylene glycol 3350 17 g packet 17 g ORAL DAILY aluminum-magnesium hydroxide-simethicone 200-200-20 mg/5 mL 30 mL 30 mL ORAL q 2 H PRN ferrous sulfate 325 mg tab(s) 325 mg ORAL DAILY wLUNCH ascorbic acid (vitamin C) 500 mg tab(s) (VITAMIN C) 500 mg ORAL BID w MEALS docusate sodium 100 mg cap(s) (COLACE) 100 mg ORAL BID phenol 2 [place] (CHLORASEPTIC) 2 [place] MUCOUS MEMBRANE (TOPICAL MOUTH AND THROAT) q 6 H PRN keTORolac 15 mg injection (Toradol) 15 mg INTRAVENOUS q 6 H PHYSICAL EXAM: Patient Vitals for the past 24 hrs: BP Temp Temp src Pulse Resp SpO2 06/26/23 0750 120/56 36.7 ?C (98.1 ?F) Oral 68 18 100 % 06/26/23 0416 142/61 36.5 ?C (97.7 ?F) Oral 71 16 97 % 06/25/23 2355 153/93 36.5 ?C (97.7 ?F) Oral 75 20 96 % 06/25/23 2000 133/73 36.4 ?C (97.5 ?F) Oral 67 16 97 % 06/25/23 1518 171/79 36.4 ?C (97.5 ?F) Oral 69 18 96 % 06/25/23 1245 149/86 36.5 ?C (97.7 ?F) Oral 65 18 99 % 06/25/23 1216 149/63 36.3 ?C (97.3 ?F) Oral (!) 58 16 99 % 06/25/23 1142 147/69 36.3 ?C (97.4 ?F) Oral 64 16 100 % 06/25/23 1100 164/75 -- -- 63 14 97 % 06/25/23 1045 162/83 -- -- 65 11 96 % 06/25/23 1030 170/84 -- -- 65 17 95 % 06/25/23 1015 170/83 -- -- 66 15 93 % 06/25/23 1000 170/81 -- -- 74 15 98 % 06/25/23 0953 171/81 -- -- 73 13 97 % 06/25/23 0952 189/84 36.5 ?C (97.7 ?F) Temporal 72 (!) 32 (!) 85 % Body mass index is 38.28 kg/m?. DATA: CBC: Recent Labs 06/26/23 0544 WBC 10.73 RBC 3.51* HB 11.0* HCT 31.5* PLT 191 MCV 89.7 MCH 31.3 MPV 9.1 Coags: No results for input(s): PT, INR, APTT in the last 24 hours. CMP: Recent Labs 06/26/23 0544 NA 132* K 4.0 CHLOR 97 CO2 24 BUN 17 CREAT 0.79 GLUC 118* CA 8.6 ANION 11 ASSESSMENT AND PLAN: A. OA S/P - Total Hip Unilateral: right Continue PT/OT Hyperlipidemia, continue Pravachol Hypertension stable, currently on lisinopril and hydrochlorothiazide Hypothyroidism on Synthroid Obstructive sleep apnea status post surgery Possible discharge today Home-going meds reviewed SIGNATURE: Byron Knight, [facility] [id number] Miscellaneous Notes* Telephone Encounter - Zulma Burgos RN - 06/26/2023 8:16 AM EDT Call placed to Cathryn and message left on confidential voicemail. Cathryn to call back with any questions. Zulma Burgos RN * Telephone Encounter - Mateo Marmolejo MD - 06/25/2023 7:32 PM EDT Yes I will follow for none ortho needs. * Telephone Encounter - Zulma Burgos RN - 06/25/2023 4:56 PM EDT Cathryn with [facility] calls to ask provider if he would be willing to follow any non- ortho HH orders following discharge from hospital. Patient currently in following right hip total hip arthroplasty [facility] to follow for orthoLula Lock[place] requests verbal order be phoned to [phone] if provider agrees. Zulma Burgos RN documented in this encounterOhiohealth [facility] Hospital08-31-2023 NoteHNO ID: [id number] Author: Vanessa Spear PA-C Service: Orthopaedic Surgery Author Type: Physician Miniature Set Builder Type: Progress Notes Filed: 06/26/2023 7:52 AM Note Text: POSTOP NOTE ORTHOPAEDIC SURGERY SERVICE DATE: 06/26/2023 SERVICE TIME: 7:50 AM IMPRESSION/PLAN: S/P Procedure(s) (LRB): ROBOTIC ASSISTED TOTAL HIP ARTHROPLASTY (Right) on 06/25/2023 Physical Therapy evaluation PWB 50% RLE, posterior hip precautions DVT prophylaxis: Intermittent pneumatic compression device (IPCD) and ASA 81 BID Pain control Case Management for discharge planning Plan of care discussed with: Provider, RN, Patient. Patient Active Hospital Problem List: No active hospital problems. POST OPERATIVE COMPLICATIONS: Complicated by uneventful/none SUBJECTIVE: Patient states that they are comfortable. Well Controlled hip pain. Denies incisional pain. OBJECTIVE: VITAL SIGNS: BP 120/56 Pulse 68 Temp 36.7 ?C (98.1 ?F) (Oral) Resp 18 Ht 152.4 cm (5') Wt 88.9 kg (196 lb) SpO2 100% BMI 38.28 kg/m? INTAKE AND OUTPUT: Intake/Output Summary (Last 24 hours) at 06/26/2023 0750 Last data filed at 06/26/2023 0610 Gross per 24 hour Intake 3125 ml Output 1850 ml Net 1275 ml LABS: Hemoglobin Date Value Ref Range Status 06/26/2023 11.0 (L) 11.5 - 15.5 g/dL Final 06/13/2023 13.7 11.5 - 15.5 g/dL Final Hematocrit Date Value Ref Range Status 06/26/2023 31.5 (L) 36.0 - 46.0 % Final 06/13/2023 39.9 36.0 - 46.0 % Final Platelet Count Date Value Ref Range Status 06/26/2023 191 150 - 400 k/uL Final 06/13/2023 214 150 - 400 k/uL Final WBC Date Value Ref Range Status 06/26/2023 10.73 3.70 - 11.00 k/uL Final 06/13/2023 5.92 3.70 - 11.00 k/uL Final Creatinine Date Value Ref Range Status 06/26/2023 0.79 0.58 - 0.96 mg/dL Final 06/13/2023 0.76 0.58 - 0.96 mg/dL Final Potassium Date Value Ref Range Status 06/26/2023 4.0 3.7 - 5.1 mmol/L Final 06/13/2023 3.9 3.7 - 5.1 mmol/L Final VTE Prophylaxis: Active VTE Risk Category Order: 06/25/23 1215 VTE RISK CATEGORY: SURGICAL HIGH RISK ([place]) Active VTE Medication Orders: Anticoagulant AND Antiplatelet Medications (From admission, onward) Start Dose Route Frequency Last Action Ordered Stop 06/26/23 0900 aspirin, enteric coated 81 mg tab(s) (Surgical Risk Categories) 81 mg ORAL 2 TIMES DAILY Ordered 06/25/23 1202 -- Active VTE Prophylaxis Orders: 06/25/23 1215 PNEUMATIC COMPRESSION STOCKINGS ([place]) 06/25/23 1215 ACTIVITY - MOBILIZE PATIENT ([place], [place]) PHYSICAL EXAMINATION: Right Lower Extremity: Dorsalis pedis pulses palpable. Posterior tibial pulses palpable. Dorsi flexion 5/5. Plantar flexion 5/5. Extensor hallucis extension: 5/5. Sensory intact to light touch L1-S1. Dressing clean, dry, and intact. Surgical site no drainage and Silverlon intact. Thigh is not swollen, calf is not tender, no signs of DVT or infection Problem Review and Assessment: Skin and Abdominal Wall: Patient monitored, no new events overnight Cardiovascular and Vascular: Patient monitored, no new events overnight Respiratory: Patient monitored, no new events overnight Endocrine and Metabolic: Patient monitored, no new events overnight Gastrointestinal: Patient monitored, no new events overnight Genitourinary and Nephrology: Patient monitored, no new events overnight Behavioral, Cerebrovascular and Nervous: Patient monitored, no new events overnight Infectious: Patient monitored, no new events overnight DATA: Diagnostic tests reviewed for today's visit: Most recent labs and imaging results. SIGNATURE: Vanessa Spear PA-C PATIENT NAME: Mónica Decker DATE: June 26, 2023 TIME: 7:50 AM The patient has undergone major orthopedic surgery and participating in therapy. Pain cannot be managed within an average of 30 MED per day. Patient requiring average of higher than 30 MED per day in order to control pain and allow patient to actively and safely participate in therapy and this is the lowest dose consistent with patient's medical condition. Non-narcotic medication options have been discussed. In addition, the patient has been advised of the benefits and risks of the opioid (including the potential for addiction). Patient demonstrated understanding of risks versus benefits.[id number] NoteHNO ID: [id number] Author: Ramiro Cannon SRNA Service: Nursing Author Type: Student Type: Anesthesia Procedure Notes Filed: 06/25/2023 8:03 AM Note Text: ANESTHESIOLOGY PROCEDURE NOTE Airway General Information Procedure Start Time/Medication Administration: 06/25/2023 7:44 AM Patient location during procedure: OR Timeout Performed Pre-procedure: timeout performed Consent Obtained: Yes Patient identity confirmed: arm band, care grocery team member and patient Staffing WRAPPER CASER: Frank Marcum APRN.WRAPPER CASER SRNA: Ramiro Cannon SRNA Performed by: ALYX and WRAPPER CASER Indications and Patient Condition Indications for airway management: anesthesia Preoxygenated: yes anesthesia circuit Patient position: sniffing Method: asleep Cricoid Pressure: No Manual In-Line Stabilization: No Difficult Mask: No Airway Accessory: oral airway Final Airway Details Final airway type: endotracheal airway Final Endotracheal Airway: ETT Cuffed: yes Successful intubation technique: direct laryngoscopy Endotracheal tube insertion site: oral Blade: Kesha Blade size: #3 ETT size (mm): 7.0 Measured from: lips Measurement (cm): 23 Placement verified by: capnometry Cormack-Lehane Classification: grade I - full view of glottis Number of attempts at approach: 1 Failed airway: no Unrecognized esophageal intubation: no Airway not difficult SIGNATURE: ALYX Rg PATIENT NAME: Mónica Decker DATE: June 25, 2023 TIME: 8:02 AM CSN: [id number] [id number] Miscellaneous Notes* Telephone Encounter - Taurus Chang MA - 06/19/2023 4:04 PM EDT Patient has been identified by name and date of : Yes Requested Prescriptions Pending Prescriptions Disp Refills pravastatin (PRAVACHOL) 10 mg tablet 90 tablet 3 Sig: Take 1 tablet by mouth once daily. hydroCHLOROthiazide 25 mg tablet 90 tablet 3 Sig: Take 1 tablet by mouth once daily. RX INSTRUCTIONS: Patient aware RX will be sent to pharmacy. No need to notify patient. Taurus Chang MA Flynn 01/2023 Nov 07/2023 Last refill: 12/2022 * Telephone Encounter - Katie Donohue - 06/19/2023 3:47 PM EDT Patient has been identified by name and date of : Yes Requested Prescriptions Pending Prescriptions Disp Refills pravastatin (PRAVACHOL) 10 mg tablet 90 tablet 3 Sig: Take 1 tablet by mouth once daily. hydroCHLOROthiazide 25 mg tablet 90 tablet 3 Sig: Take 1 tablet by mouth once daily. RX INSTRUCTIONS: Patient aware RX will be sent to pharmacy. No need to notify patient. Katie Crowe documented in this encounterOhiohealth Marion [facility] Hospital08-18-2023 History and physical note * Hardeep Elizalde PA-C - 06/13/2023 11:20 AM EDT HISTORY AND PHYSICAL EXAMINATION SERVICE DATE: 06/11/2023 SERVICE TIME: 12:20 PM PRIMARY CARE PHYSICIAN: Mateo Marmolejo MD REASON FOR VISIT: Mónica Decker is a 73 year old female who is scheduled for Procedure(s): ROBOTIC ASSISTED TOTAL HIP ARTHROPLASTY (Right) at the request of Dr. Julio Cesar Deluna for consultation. My final recommendation will be communicated back to the requesting physician by way of shared medical record or letter. 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 Pt has history of severe DJD in bilateral hips. Planned for staged right then left hip replacements. Has been using cane or walker for many years due to pain and difficulties with mobility. Reports instability in hips. Reports has to use at least cane for ambulation. Above procedure recommended to manage symptoms. Procedure scheduled on 06/25/2023 at [place]. REVIEW OF SYSTEMS: General: No weight loss, malaise or fevers. Neurological: No history of TIA's, stroke, REBRANDER tumor, impaired sensorium, hemiplegia, paraplegia orquadraplegia. No neurological symptoms or problems. Respiratory: Positive for: dyspnea and obstructive sleep apnea. Negative for: asthma, COPD, current cough, tobacco use and URI < 2 weeks. Cardiovascular: Positive for: hyperlipidemia and hypertension Negative for: arrhythmia, atrial fibrillation, CAD, chest pain, DVT/PE and murmur/valvular heart disease. GI: No history of GI symptoms or problems. No history of esophageal varices, recent ascites, or ETOH greater than 2 drinks per day. : +OAB Positive for: urinary incontinence, nocturia >1 time per night and urgency. Negative for: dysuria, frequent urination, nephrolithiasis and urinary tract infection. MANAGER CAFE: Negative for abnormal vaginal bleeding, abnormal vaginal discharge. Endocrine: Positive for: hypothyroidism. Negative for: diabetes mellitus and steroid for chronic problem. Hematology: No history of bleeding or clotting disorder. Patient is not taking anti-coagulation or platelet medications. No history of hematological symptoms or problems. Oncology: No history of CA metastasis, chemo within 30 days, or radiotherapy within 90 days. No history of oncological symptoms or problems. Psych: Positive for: anxiety (situational panic due to upcoming surgery). Negative for: depression. Musculoskeletal: See HPI. Positive for: back pain (lumbar pain, sees chiropractor) and joint pain. Skin: Negative for lesions, rash and itching. PAST MEDICAL HISTORY Diagnosis Date 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 01/24/2021 Adenomatous colon polyp Allergic rhinitis 07/08/2005 Bilateral hip pain 06/05/2023 Dystrophic nail 01/24/2021 multiple bilateral toes. Elevated hemoglobin A1c 08/27/2018 Essential hypertension, benign 07/08/2005 Fracture left forearm and right radial head Hammer toes of both feet 01/24/2021 Hyperlipidemia, mixed 02/05/2018 As of 02/05/18 patient declines statin therapy. 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 ARTHROSCOPY KNEE DIAGNOSTIC W/WO SYNOVIAL BX SPX Arthroscopy, knee COLONOSCOPY 05/30/2022 Tubular Adenoma-repeat in 3 years COLONOSCOPY FLX DX W/COLLJ SPEC WHEN PFRMD years ago Colonoscopy COLONOSCOPY FLX DX W/COLLJ SPEC WHEN PFRMD 10/13/2013 Colonoscopy COLONOSCOPY FLX DX W/COLLJ SPEC WHEN PFRMD 03/14/2016 Colonoscopy COLONOSCOPY FLX DX W/COLLJ SPEC WHEN PFRMD 11/09/2018 Colonoscopy COLSC FLX W/RMVL OF TUMOR POLYP LESION SNARE TQ 06/15/2010 PAST SURGICAL HISTORY OF 1960 bladder surgery to enlarge opening PAST SURGICAL HISTORY OF uvulectomy for SANDRA SIGMOIDOSCOPY FLX DX W/COLLJ SPEC BR/WA IF PFRMD 12/06/2013 Sigmoidoscopy, flexible THYROIDECTOMY TOTAL/COMPLETE 2004 FAMILY HISTORY Problem Relation Age of Onset Heart Father fluid on heart Glaucoma Father Hypertension Mother Stroke Brother Strabismus Brother Detached Retina Brother Social History Tobacco Use Smoking status: Never Smokeless tobacco: Never Tobacco comments: Mom used to smoke, quit 2011 Vaping Use Vaping Use: Never used Substance Use Topics Alcohol use: No Drug use: No Prior to Admission medications as of 06/13/23 1116 Medication Sig Last Dose Taking pravastatin (PRAVACHOL) 10 mg tablet TAKE 1 TABLET BY MOUTH EVERY DAY Taking Yes lisinopril (ZESTRIL) 10 mg tablet Take 1 tablet by mouth once daily. Taking Yes levothyroxine (SYNTHROID) 137 mcg tablet Take 1 tablet by mouth once daily. Taking Yes hydroCHLOROthiazide 25 mg tablet Take 1 tablet by mouth once daily. Taking Yes mometasone (ELOCON) 0.1 % cream Apply to areas twice a day. On for 4 days and off for 3 days. Repeat as needed. Taking Yes Lactobac no.41/Bifidobact no.7 (PROBIOTIC-10 ORAL) Take 1-2 tablets by mouth once daily. Taking Yes OTC PRODUCT Takes beet powder daily Taking Yes cholecalciferol, vitamin D3, (VITAMIN D3 ORAL) Take 1 tablet by mouth once daily. Taking Yes ascorbic acid (VITAMIN C ORAL) Take 1 tablet by mouth once daily. Taking Yes COLLAGEN MISC 1 tablet once daily. Collagen blend + #2 Taking Yes naproxen sodium 220 mg cap Take by mouth as directed. Taking Yes omega-3 fatty acids 1,000 mg cap Take 1 capsule by mouth three times daily. Taking Yes COENZYME Q10 60 MG CAP Take one(1) tablet daily. Taking Yes multivitamins w-minerals(DAILY MULTIVITAMIN-MINERALS TAB) Take one(1) tablet daily. Taking Yes mupirocin (BACTROBAN) 2 % ointment twice daily for 5 days. Apply 0.5 inch with cotton swab (Q-tip) to each nostril in the morning and evening for 5 days prior to and including day of surgery. cefADROxil (DURICEF) 500 mg capsule Take 1 capsule by mouth twice daily. Patient not taking: Reported on 04/10/2023 peg 3350-Electrolytes (GOLYTELY) 236-22.74-6.74 -5.86 gram suspension Refer to printed prep instructions from your provider. No medication comments found. ALLERGIES Allergen Reactions Latex Unknown Objective PHYSICAL EXAM: General: alert and oriented and obese. Pertinent negatives noted - not distressed. Skin: normal color, no rash or lesions. Limited exam done to inner, upper thighs- slight redness- no open wounds, no drainage noted.. HEENT: EOM intact and pupils equal round. Pertinent negatives noted - no carotid bruit. Cardiovascular: regular rate and rhythm, normal S1 and S2, no rub, murmurs, or gallop. Respiratory: normal breath sounds, no wheezes or crackles. No chest wall deformity or tenderness. Abdomen: soft. Pertinent negatives noted - not tender. Extremities: Positive for joint tenderness. Right index finger amputation. Neurological: normal cognition and motor skills. Positive for abnormal gait. PAIN ASSESSMENT: Pain Pain Level: 4 Pain Location: Hip-Right Description: Aching Duration Amount of Time: 12 Duration Units: Years Frequency: Intermittent Intervention/Comfort measure: Medication VITALS: BP 132/74 Pulse 69 Temp (Src) 98.3 (Temporal) Resp 16 Ht 5' 0 (1.52m) Wt 196 lb (88.9kg) SpO2 95% BMI 38.28 kg/(m^2). Diagnostic tests reviewed for today's visit: Lab Value Units Date High Low HB 14.1 g/dL 01/09/2023 15.5 11.5 HCT 41.1 % 01/09/2023 46.0 36.0 WBC 6.87 k/uL 01/09/2023 11.00 3.70 PLT 248 k/uL 01/09/2023 400 150 NA 135 mmol/L 01/09/2023 144 136 K 3.9 mmol/L 01/09/2023 5.1 3.7 GLUC 99 mg/dL 01/09/2023 99 74 BUN 17 mg/dL 01/09/2023 21 7 CREAT 0.73 mg/dL 01/09/2023 0.96 0.58 PTSEC No results within date range. INR No results within date range. APTT No results within date range. ALT 13 U/L 01/09/2023 38 7 AST 21 U/L 01/09/2023 35 13 TBILI 1.0 mg/dL 01/09/2023 1.3 0.2 TSH 2.380 mIU/L 01/09/2023 4.200 0.270 Lab Value Units Date High Low HCGQT No results within date range. UHCG No results within date range. HCG, BODY* No results within date range. Lab Value Units Date High Low ABORHD No results within date range. ABSCREEN No results within date range. Hemoglobin A1C (%) Date Value 01/09/2023 5.1 02/14/2022 5.4 06/20/2021 5.4 12/19/2020 5.4 06/20/2020 5.6 08/27/2019 5.6 02/24/2019 5.6 Recent Results (from the past 8760 hour(s)) ECG COMPLETE Collection Time: 06/13/23 11:32 AM Result Value Ventricular Rate 67 Atrial Rate 67 P-R Interval 172 QRS Duration 84 QT Interval 414 QTC Calculation (Bazett) 437 Calculated P [place] 29 Calculated R [place] -15 Calculated T [place] 5 Impression NORMAL SINUS RHYTHM CANNOT EXCLUDE ANTERIOR MYOCARDIAL INFARCTION , AGE UNDETERMINED ABNORMAL ECG No results found for this or any previous visit (from the past 87490 hour(s)). Assessment Patient has the following medical conditions which may affect carol-operative course: Essential hypertension, benign Assessment: BP today in clinic 132/74. Stable on RX. Postsurgical hypothyroidism Assessment: Stable on RX Hyperlipidemia, mixed Assessment: Stable on RX SANDRA (obstructive sleep apnea) Assessment: s/p uvulectomy OAB (overactive bladder) Assessment: no meds, chronic incontinence, will get UA & Cx TARANGO (dyspnea on exertion) Assessment: appears chronic due to generalized deconditioning and hip fatigue. Appears euvolemic, denies CP. Obesity, Class II, BMI 35-39.9 Assessment: Body mass index is 38.28 kg/m . Dermatitis Assessment: Reports irritation from incontinence pad on inner bilateral thighs. Unable to appreciate anything but slight erythema to inner, upper bilateral thighs. Though very limited exam able to bedone in clinic due to body habitus and immobility issues. Patient instructed that any open areas or sores should be seen by PCP and surgeon should be notified. Kiran Activity Status Index: METS: Take care of self; that is eating, dressing, bathing, using the toilet (2.75 METs) DASI Score: 2.75 (Very limited mobility) Patient is limited most or all of the time (uses scooter, mobility device). Clinical Frailty Scale: 3. Well, with treated comorbid disease STOP-Bang Score: STOP-Bang Score: (+ SANDRA, s/p uvulectomy) [id number] Score: Age: 65-74 Sex: female CHF history: No Hypertension history: Yes Stroke/TIA/thromboembolism history: No Vascular disease history: No [id number] Score: 3 ARISCAT Score: Age: 51-80 Preoperative SpO2: 91-95% Respiratory infection in the last month: No Preoperative anemia: Yes Surgical incision: peripheral Duration of surgery: 2-3 hrs Emergency procedure: No ARISCAT Score: 38 ASA Class: 3 ANESTHESIA FINDINGS: Intubation History: No history of difficult intubation. No abnormal airway history Significant Anesthesia Considerations: none Airway History: No history of difficult airway No abnormal airway history I - PHYSICAL EVALUATION AIRWAY Patient intubated: No. Tracheostomy tube not present Mallampati: II. TM distance: >3 FB. Neck ROM: full ROM without neurological symptoms. Mouth opening: adequate. Short neck: no. Thick neck: no Lip Bite Test: I DENTAL Additional comments: + crowns. II - ANESTHESIA PLAN ASA Score: 3 Anesthetic Plan: other Anesthetic plan additional comments: *PACC/TCI - anesthesia choice. Beta Sully Monitoring Plan Post Procedure Analgesic Plan Prepared for Surgery: optimally prepared for surgery, pending [see comment]. Labs, EKG CONSULTS: Patient does not require consults for optimization at this time Planned Anesthetic: other anesthesia choice The Following Tests/Procedures Have Been Initiated: Orders Placed This Encounter CBC with Differential Standing Status: Future Number of Occurrences: 1 Standing Expiration Date: 08/13/2023 CMP Standing Status: Future Number of Occurrences: 1 Standing Expiration Date: 08/13/2023 Urinalysis with Microscopic Standing Status: Future Number of Occurrences: 1 Standing Expiration Date: 08/13/2023 Confirm Blood Type Standing Status: Future Number of Occurrences: 1 Standing Expiration Date: 08/13/2023 Order Specific Question: Did Blood Bank direct you to place this order: Answer: No - Presurgical Workflow Type and Screen, 30 day Standing Status: Future Number of Occurrences: 1 Standing Expiration Date: 08/13/2023 Urine Culture Standing Status: Future Number of Occurrences: 1 Standing Expiration Date: 08/13/2023 Order Specific Question: Source Answer: URINE-MIDSTREAM CLEAN CATCH mupirocin (BACTROBAN) 2 % ointment Sig: twice daily for 5 days. Apply 0.5 inch with cotton swab (Q-tip) to each nostril in the morningand evening for 5 days prior to and including day of surgery. Dispense: 22 g Refill: 0 ECG COMPLETE Standing Status: Future Standing Expiration Date: 06/11/2024 Instructions Given to Patient: Instructions located in the after visit summary. Patient given verbal and written preop instructions and voices comprehension and compliance. SIGNATURE: Hardeep Elizalde PA-C PATIENT NAME: Mónica Decker DATE: June 11, 2023 TIME: 12:43 PM PAGER/CONTACT #: documented in this encounterOhio[facility]08-18-2023 Instructions* Patient Instructions* Hardeep Elizalde PA-C - 06/13/2023 11:18 AM EDT PATIENT PREOPERATIVE INSTRUCTIONS Julio Cesar Deluna MD has scheduled you for your procedure at this surgery center: : [phone] -- [address] [address]. Please read below carefully for your personalized instructions. Arrival Time for Surgery: - The Surgery Center or hospital where you are having surgery will call the afternoon before surgery (or Friday for Friday surgery) with a scheduled arrival time. - If you have not heard by 4 pm, please contact the surgery center above. Please be aware that emergency situations arise, which may delay or change your surgical time. If this happens, we will notify you as soon as possible and regret any inconvenience. Dietary Restrictions: - No solid food after midnight. - You may have 12 ounces of clear liquids (water, clear juices such as apple juice or gatorade, carbonated beverages, clear tea, black coffee, jello) until 2 hours before scheduled arrival at facility. - Do not drink any alcohol after midnight the night before your surgery. Medications: Unless instructed differently below, stay on all of your medications until your surgery. Approved medications to take the morning of surgery with a sip of water: pravastatin (PRAVACHOL), levothyroxine sodium (LEVOTHYROXINE ORAL) DO NOT TAKE YOUR lisinopril (ZESTRIL, PRINIVIL) THE NIGHT BEFORE OR MORNING OF SURGERY. DO NOT TAKE YOUR hydroCHLOROthiazide (HYDRODIURIL, ESIDRIX) THE MORNING OF SURGERY. If you start any new medications after today's visit, please contact the surgeon's office. Blood Thinning Medications: - Stop NSAIDS (Ibuprofen, Advil, Aleve, Motrin, Celebrex, Mobic, etc.) 7 days before surgery, as directed by your surgeon. - Stop Aspirin 7 days before surgery, as directed by your surgeon. - Stop Vitamin E, ALL multi-vitamins, herbals and dietary supplements 7 days before surgery. - You may take Tylenol (Acetaminophen) or any of your pain medications that do not contain aspirin or NSAIDS as needed. Important Reminders: - If you use CPAP/BIPAP, bring the machine with you to the surgery center. - If you are prescribed inhalers for breathing, continue using them. - Candy, mints, and tobacco products are NOT permitted the morning of surgery. - Hearing aids, dentures and glasses may be worn the morning of surgery. - NO jewelry, body piercings, makeup, hairpins or contacts are to be worn the day of surgery. If you develop symptoms such as a fever, cold, or flu, or have other changes to your health within TWO DAYS of scheduled surgery or the morning of surgery, please contact the surgery center above. Personal Belongings: -Please have photo ID and insurance cards. -If you do not have a copy of advance directives on file with us, please bring a copy with you on the day of surgery. - Leave ALL valuables and money at home or with family members. For Outpatient Procedures: - YOU MUST HAVE A RESPONSIBLE EXHAUSTER TAKE YOU HOME. A EXTRACTOR AND WRINGER OPERATOR OR DIRECTOR OF ACCOUNTING CANNOT BE MADE A RESPONSIBLE EXHAUSTER. - We recommend that a responsible person stays with you overnight to take care of you. - You cannot stay in a hotel alone after outpatient surgery. You will not be permitted to have yoursurgery, if you do not have someone to take care of you. If you already have an Advance Directive, please fax a copy to [phone] or email to for it to be added to your chart. If you do not have an Advance Directive, you can find the appropriate form and more information at [email or web address]. We recommend that youcomplete the Advance Directive form found on the website and bring it with you the day of your surgery. It can be witnessed and scanned into your chart that day. 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 Pt owns cane been using for last few years, walkers, crutches, getting raised toilet seat. Plans to get lift chair. Discussed with patient importance of attending joint education class and provided date and times ofclass: YES declined. Patient received Joint Education Binder: Yes Patient plans discharge with [facility]. SIGNATURE: ERIC Kelsey PATIENT NAME: Mónica Decker DATE: June 10, 2023 TIME: 10:51 AM documented in this encounterOhio[facility]08-14-2023 Miscellaneous Notes* Telephone Encounter - Kelvin Dietrich LPN - 06/09/2023 7:29 AM EDT Last refill 02/07/23 Qty: 30 with 3 refills FLYNN 02/07/23 NOV 08/11/23 Kelvin Dietrich LPN documented in this encounterOhio[facility]08-10-2023 Miscellaneous Notes* Telephone Encounter - Taurus Chang MA - 06/05/2023 4:25 PM EDT Faxed. Taurus Chang MA * Telephone Encounter - Mateo Marmolejo MD - 06/05/2023 3:31 PM EDT Order ready to be faxed. * Telephone Encounter - Kim Salazar RN - 06/05/2023 12:42 PM EDT Patient calling to request prescription for power lift chair due to bilateral hip pain. She says she is scheduled for right hip replacement @ by Dr. Deluna on 06/25. Patient requesting script be faxed to [facility] @ fax # [phone]. Kim Salazar RN documented in this encounterOhiohealth [facility]06-27-2023 Miscellaneous Notes* Telephone Encounter - MARIA ISABEL Feldman - 04/22/2023 9:37 AM EDT FLYNN 02/07/23 NOV 08/11/23 Please review and advise. Thank you. MARIA ISABEL Feldman * Telephone Encounter - Lacey Kirk Pss - 04/22/2023 9:16 AM EDT Patient has been identified by name and date of : Yes Last office visit in this department: 02/07/2023 RX INSTRUCTIONS: Patient aware RX will be sent to pharmacy. No need to notify patient. Patient phones requesting refills as follows: Requested Prescriptions Pending Prescriptions Disp Refills lisinopril (ZESTRIL) 10 mg tablet 90 tablet 0 Sig: Take 1 tablet by mouth once daily. Please review and advise. Lacey Kirk Pss documented in this encounterOhiohealth [facility]06-15-2023 History of Present illness Narrative* Julio Cesar Deluna MD - 04/10/2023 12:52 PM EDT CONSULT ORTHOPAEDIC: HIP PRIMARY CARE PHYSICIAN: Mateo Marmolejo MD REFERRING PROVIDER: Jose Luis Kirk [address] [place] [address] ASSESSMENT & PLAN: Impression: Mónica is a 73-year-old woman seen by my partner Dr. Jose Luis Kirk with severe right hip osteoarthritis. She was indicated for staged right and then left hip replacements. She was referred to me based on the severity of her deformity and degenerative disease of the hips. She has failed conservativemanagement. She has been using a walker or cane for the past 12 years with worsening symptoms. She also has significant lumbar radiculopathy. I reviewed that this will fix her groin and buttock pain but will not address the radicular pain all the way down her leg. She understands this. She is elevated risk of complication based on the severity of her deformity and the bone quality as well benny spine disease. Risks, benefits, expected outcomes, potential complications and recovery were all reviewed along length with both her and her sibling. She wishes to proceed and informed consent was signed. Plan for dual mobility. Plan for multihole cup. Cemented stem available. Anticipate extra time based on significant hip flexion contracture. The patient has been ordered: CT Mónica Decker meets the following criteria for CT: Robotic CONSULTS: IMPACT/PACE Consult for preoperative clearance. ACTIVE PROBLEM LIST Sandra (Obstructive Sleep Apnea) Allergic Rhinitis Essential Hypertension, Benign Postsurgical Hypothyroidism Primary Osteoarthritis of Both Hips Primary Osteoarthritis of Both Knees Personal History of Colonic Polyps Hyperlipidemia, Mixed Medicare Annual Wellness Visit, Subsequent Elevated Hemoglobin A1c Screening for Colon Cancer Oab (Overactive Bladder) Hammer Toes of Both Feet Foot Callus Dystrophic Nail Acute Idiopathic Gout Involving Toe of Right Foot Obesity, Class II, Bmi 35-39.9 Advance Directive Discussed With Patient Dermatitis SUBJECTIVE CHIEF COMPLAINT: Hip Pain HPI: Mónica Decker is a 73 year old patient here for evaluation and management of Right hip pain.Mónica Decker has had progressive problems with the hip(s) most of the day over the past 12 year(s) interfering with activities which include walking 2 blocks, gardening, 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 The problem began limiting activities 3+ years ago. Currently the pain in the joint is rated at 4 out of 10 with minimal activity. The pain is intermittent and is located in the right hip and groin. The pain is described as cramping. Relieving factorsinclude rest, over the counter medication, and repositioning. There is no specific incident that brought about this pain. Mónica Decker also complains of weakness, referred pain, stiffness, and giving way. FUNCTIONAL STATUS: Do moderate work around the house such as vacuuming, sweeping floors, or carrying in groceries (3.50 METs) Total Joint Arthroplasty: Risk Calculator Mónica Decker has a 67.29% chance of NOT returning home at discharge for a Primary total Hip replacement. Mónica's estimated Length of Stay is 3 days (Inpatient candidate). Mónica's 30 day chance of readmission is 5.58%. Readmission Probability 5.58 % (within 30 days following surgery) Estimated LOS 3 days Discharge Disposition Probability D/C to Home 32.71 % D/C to SNF 67.29 % These calculations are based on the following factors: - 73 years of age - sex is not male - BMI of 38 kg/m2 - NarxCare score of 0 - 0 hospitalizations in the last 12 months - no history of heart disease - no history of diabetes - no history of COPD - no history of anemia - preoperative ambulation: minimal ambulation/wheelchair bound - 0 step(s) to enter home - bed location is on the first floor - bath location is on the first floor - caregiver is consistent - home is not more than 150 miles away - PROMIS-10 Mental Health T score not available - Marital status: PREVIOUS TREATMENTS: Attempted Weight Loss Medical: OTC NSAIDS for 3 Months or Greater (Aleve) Physical Therapy: Use of Ambulatory Aid and Activities Modified REVIEW OF SYSTEMS: PAIN ASSESSMENT: See HPI. MUSCULOSKELETAL: See HPI. Risk Factors for Total Joint Arthroplasty (TJA) Obesity Moderate Risk High: BMI > 40 Moderate: BMI 30-40 Normal: BMI < 30 Diabetes normal High: A1C > 8 Moderate: A1C 7-8 Normal: A1C < 7 Smoking normal High: Current smoker Normal: Non smoker Anemia normal High: Hgb < 11.5 (women) N/A: Hgb >= 11.5 (women) Nutritional Status normal High: Alb<3.4, or prealb<15, or serum transferrin<200, or total lymphocyte count<1500 Normal: normal labs COPD normal High: dx of COPD Normal: no dx of COPD MRSA normal High: dx of MRSA or positive lab test Normal: no MRSA CKD normal High: eGFR<60 Moderate: eGFR 60-89 Normal: eGFR>90 Hx of DVT / PE normal High: dx of DVT / PE Normal: no dx of DVT / PE Narcotics Use normal High:NarxCare >=300 Moderate: 100-299 Normal: 0-99 SANDRA High Risk High: dx of SANDRA N/A: no dx of SANDRA Coagulation normal High:PT Sec>13, or PT INR>1.3, or APTT>32.4, or Plt ct<150k Moderate: on anticoag but none of the above Normal: none Obesity: weight management recommended BMI Readings from Last 3 Encounters: 02/07/23 : 38.17 kg/m 01/31/23 : 38.01 kg/m 01/09/23 : 37.37 kg/m Obstructive Sleep Apnea (SANDRA) Other Risk Factors Prior Infection PAST MEDICAL HISTORY Diagnosis Date 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 01/24/2021 Adenomatous colon polyp Allergic rhinitis 07/08/2005 Dystrophic nail 01/24/2021 multiple bilateral toes. Elevated hemoglobin A1c 08/27/2018 Essential hypertension, benign 07/08/2005 Fracture left forearm and right radial head Hammer toes of both feet 01/24/2021 Hyperlipidemia, mixed 02/05/2018 As of 02/05/18 patient declines statin therapy. 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 ARTHROSCOPY KNEE DIAGNOSTIC W/WO SYNOVIAL BX SPX Arthroscopy, knee COLONOSCOPY 05/30/2022 Tubular Adenoma-repeat in 3 years COLONOSCOPY FLX DX W/COLLJ SPEC WHEN PFRMD years ago Colonoscopy COLONOSCOPY FLX DX W/COLLJ SPEC WHEN PFRMD 10/13/2013 Colonoscopy COLONOSCOPY FLX DX W/COLLJ SPEC WHEN PFRMD 03/14/2016 Colonoscopy COLONOSCOPY FLX DX W/COLLJ SPEC WHEN PFRMD 11/09/2018 Colonoscopy COLSC FLX W/RMVL OF TUMOR POLYP LESION SNARE TQ 06/15/2010 PAST SURGICAL HISTORY OF 1960 bladder surgery to enlarge opening PAST SURGICAL HISTORY OF uvulectomy for SANDRA SIGMOIDOSCOPY FLX DX W/COLLJ SPEC BR/WA IF PFRMD 12/06/2013 Sigmoidoscopy, flexible THYROIDECTOMY TOTAL/COMPLETE 2004 FAMILY HISTORY Problem Relation Age of Onset Heart Father fluid on heart Glaucoma Father Hypertension Mother Stroke Brother Strabismus Brother Detached Retina Brother Social History Tobacco Use Smoking status: Never Smokeless tobacco: Never Tobacco comments: Mom used to smoke, quit 2011 Vaping Use Vaping Use: Never used Substance Use Topics Alcohol use: No Drug use: No ALLERGIES: Latex MEDICATIONS: pravastatin (PRAVACHOL) 10 mg tablet Take 1 tablet by mouth once daily. levothyroxine (SYNTHROID) 137 mcg tablet Take 1 tablet by mouth once daily. lisinopril (ZESTRIL) 10 mg tablet Take 1 tablet by mouth once daily. hydroCHLOROthiazide 25 mg tablet Take 1 tablet by mouth once daily. mometasone (ELOCON) 0.1 % cream Apply to areas twice a day. On for 4 days and off for 3 days. Repeat as needed. cefADROxil (DURICEF) 500 mg capsule Take 1 capsule by mouth twice daily. (Patient not taking: Reported on 04/10/2023) Lactobac no.41/Bifidobact no.7 (PROBIOTIC-10 ORAL) Take 1-2 tablets by mouth once daily. peg 3350-Electrolytes (GOLYTELY) 236-22.74-6.74 -5.86 gram suspension Refer to printed prep instructions from your provider. OTC PRODUCT Takes beet powder daily cholecalciferol, vitamin D3, (VITAMIN D3 ORAL) Take 1 tablet by mouth once daily. ascorbic acid (VITAMIN C ORAL) Take 1 tablet by mouth once daily. COLLAGEN MISC 1 tablet once daily. Collagen blend + #2 naproxen sodium 220 mg cap Take by mouth as directed. omega-3 fatty acids 1,000 mg cap Take 1 capsule by mouth three times daily. COENZYME Q10 60 MG CAP Take one(1) tablet daily. multivitamins w-minerals(DAILY MULTIVITAMIN-MINERALS TAB) Take one(1) tablet daily. PHYSICAL EXAM There were no vitals taken for this visit. All other systems deferred. GENERAL: Appears healthy, well-nourished, no deformities. HABITUS: Normal GAIT: Antalgic to the right HIP EXAM: Right: ROM: Extension: 15 degree flexion contracture Flexion: 80 degrees Internal Rotation: 0 degrees External Rotation: 5 degrees Abduction: 5 degrees Adduction: 5 degrees Strength: Pain with resisted hip flexion Palpation: No tenderness Log roll: painful. Straight leg raise: Positive, reproducing hip symptoms Neurovascular Status: Sensation Intact, Moves foot and ankle up & down, and 2+ dorsalis pedis DATA: Diagnostic tests reviewed for today's visit: Right hip X-Ray: Severe degenerative changes Left hip X-Ray: Severe degenerative changes The following conditions were addressed during the office visit today: none SIGNATURE: Julio Cesar Deluna MD PATIENT NAME: Mónica Decker DATE: April 10, 2023 TIME: 12:56 PM documented in this encounterOhio[facility] Miscellaneous Notes* Telephone Encounter - Vernell Guy - 02/27/2023 9:03 AM EDT Scheduled patient for 04/10 * Telephone Encounter - Ana Ramos - 02/25/2023 5:04 PM EDT Per , please reach out to patient for an appointment with for her Right hip. documented in this [facility]04-27-2023 History of Present illness Narrative* Jose Luis Kirk MD - 02/20/2023 1:26 PM EDT Jose Luis Kirk MD Department of Orthopaedics Orthopaedics [address] [facility] [address] Dept: [phone] Dept February 20, 2023 CHIEF COMPLAINT: Pain and New of the Right Hip HPI Patient here today with her spouse for complaints of right hip pain x 10 + years. Patient's chiropractor told her she has hip spurs and calcium deposits. Patient arrives in a wheelchair, but walks with a cane in the right hand into the exam room. Patient does not currently work outside the homeas she took early long-term due to her pain. New x-ray today at [facility]. ASSESSMENT: M16.11 Primary osteoarthritis of right hip (primary encounter diagnosis) M25.551 Right hip pain PLAN: Severe, bilateral hip osteoarthritis. I will have her see one of my surgical colleagues. It may even be a rare occasion to consider bilateral hips. She is extremely limited with her ambulatory status. FOLLOW UP INSTRUCTIONS: We will get her into see Dr. Deluna OBJECTIVE: Ms. Mónica Decker is a pleasant 72 year old in no apparent distress. Gen:There were no vitals taken for this visit. nl development, obese, no deformities ENT: Normocephalic, normal hearing, moist mucosa CV: Pulses:DP/PT= 2+ and symmetric, capillary refill < 2 secs, no peripheral edema/varicosities Skin: no rash, bruising or lesions. Good turgor. Psych: cooperative and appropriate, alert and oriented x 3, good mood and affect. Musculoskeletal: Extremely labored gait. In and out of the room on a wheelchair. Extremely limited motion bilaterally with almost no rotation and minimal hip flexion at best. Neurovascular exam is intact throughout both lower extremities. IMAGING: IMPRESSION: End-stage osteoarthritis of both hips with progressive flattening of both femoral heads since 2014. No fracture. Credit Control Assistant: PSCB Transcribe Date/Time: Feb 20 2023 7:45P Dictated by : MOOSE ROGER MD This examination was interpreted and the report reviewed and electronically signed by: MOOSE ROGER MD on Feb 20 2023 7:47PM EST Results-Findings * * *Final Report* * * DATE OF EXAM: Feb 20 2023 1:25PM DANIEL [id number] - XR HIP 3V PELV+ AP/LAT RT / PROCEDURE REASON: Pain in right hip * * * * Physician Interpretation * * * * HISTORY: Chronic diffuse right hip pain increasing over time.. Pain in right hip . TECHNIQUE: XR HIP 3V PELV+ AP/LAT RT Laterality: RIGHT Number of different views (projections): 3 on 4 images COMPARISON: April 2015 RESULT: End-stage degenerative changes in the right hip with progressive flattening of the femoral head. Subchondral cyst formation is present. Similar findings are noted in the left hip. Bony pelvis is intact. Degenerative changes lower lumbar spine. Supporting Subjective Information Below: Past Medical History: PAST MEDICAL HISTORY Diagnosis Date 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 01/24/2021 Adenomatous colon polyp Allergic rhinitis 07/08/2005 Dystrophic nail 01/24/2021 multiple bilateral toes. Elevated hemoglobin A1c 08/27/2018 Essential hypertension, benign 07/08/2005 Fracture left forearm and right radial head Hammer toes of both feet 01/24/2021 Hyperlipidemia, mixed 02/05/2018 As of 02/05/18 patient declines statin therapy. Medicare annual wellness visit, subsequent 08/27/2018 Medicare part B: 02/24/2014 last done: 08/27/2019 Morbid (severe) obesity due to excess calories (HCC) 02/06/2006 OAB (overactive bladder) 12/19/2020 Declines medication as of 12/19/20 Obesity, Class II, BMI 35-39.9 02/19/2021 SANDRA (obstructive sleep apnea) 07/08/2005 Had corrective surgery Personal history of colonic polyps 03/14/2016 Postsurgical hypothyroidism 09/04/2005 Primary osteoarthritis of both hips 06/20/2015 Primary osteoarthritis of both knees 06/20/2015 Past Surgical History: PAST SURGICAL HISTORY Procedure Laterality Date AMPUTATION TOE,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 ARTHROSCOPY KNEE DIAGNOSTIC W/WO SYNOVIAL BX SPX Arthroscopy, knee COLONOSCOPY 05/30/2022 Tubular Adenoma-repeat in 3 years COLONOSCOPY FLX DX W/COLLJ SPEC WHEN PFRMD years ago Colonoscopy COLONOSCOPY FLX DX W/COLLJ SPEC WHEN PFRMD 10/13/2013 Colonoscopy COLONOSCOPY FLX DX W/COLLJ SPEC WHEN PFRMD 03/14/2016 Colonoscopy COLONOSCOPY FLX DX W/COLLJ SPEC WHEN PFRMD 11/09/2018 Colonoscopy COLSC FLX W/RMVL OF TUMOR POLYP LESION SNARE TQ 06/15/2010 PAST SURGICAL HISTORY OF 1960 bladder surgery to enlarge opening PAST SURGICAL HISTORY OF uvulectomy for SANDRA SIGMOIDOSCOPY FLX DX W/COLLJ SPEC BR/WA IF PFRMD 12/06/2013 Sigmoidoscopy, flexible THYROIDECTOMY TOTAL/COMPLETE 2004 Family History: FAMILY HISTORY Problem Relation Age of Onset Heart Father fluid on heart Glaucoma Father Hypertension Mother Stroke Brother Strabismus Brother Detached Retina Brother Social History: Social History Tobacco Use Smoking status: Never Smokeless tobacco: Never Tobacco comments: Mom used to smoke, quit 2011 Vaping Use Vaping Use: Never used Substance Use Topics Alcohol use: No Drug use: No Medications: Current Outpatient Medications Medication Sig pravastatin (PRAVACHOL) 10 mg tablet Take 1 tablet by mouth once daily. levothyroxine (SYNTHROID) 137 mcg tablet Take 1 tablet by mouth once daily. lisinopril (ZESTRIL) 10 mg tablet Take 1 tablet by mouth once daily. hydroCHLOROthiazide 25 mg tablet Take 1 tablet by mouth once daily. Lactobac no.41/Bifidobact no.7 (PROBIOTIC-10 ORAL) Take 1-2 tablets by mouth once daily. OTC PRODUCT Takes beet powder daily cholecalciferol, vitamin D3, (VITAMIN D3 ORAL) Take 1 tablet by mouth once daily. ascorbic acid (VITAMIN C ORAL) Take 1 tablet by mouth once daily. COLLAGEN MISC 1 tablet once daily. Collagen blend + #2 naproxen sodium 220 mg cap Take by mouth as directed. omega-3 fatty acids 1,000 mg cap Take 1 capsule by mouth three times daily. COENZYME Q10 60 MG CAP Take one(1) tablet daily. multivitamins w-minerals(DAILY MULTIVITAMIN-MINERALS TAB) Take one(1) tablet daily. mometasone (ELOCON) 0.1 % cream Apply to areas twice a day. On for 4 days and off for 3 days. Repeat as needed. cefADROxil (DURICEF) 500 mg capsule Take 1 capsule by mouth twice daily. peg 3350-Electrolytes (GOLYTELY) 236-22.74-6.74 -5.86 gram suspension Refer to printed prep instructions from your provider. No current facility-administered medications for this visit. Allergies: Latex ROS: General (negative for fatigue, malaise, weight loss/gain) HEENT (negative for headache, earache, recent vision changes, sinus pain, sore throat) Respiratory (no recent shortness of breath, hemoptysis) CV (negative for chest tightness, palpitations) Musculoskeletal (see HPI) Psych (no depression, anxiety) REFERRING PHYSICIAN: Consultation requested by Ramiro Dominguez for an opinion regarding hip pain. My final recommendations will be communicated back to the requesting physician by way of shared Medical record or letter to requesting physician via US mail. Ramiro Dominguez [address] [address] Mateo Marmolejo MD [address] [address] Jose Luis Kirk MD documented in this encounterOhio[facility]04-27-2023 History of Present illness Narrative* Gabriela Gomes RT(R) - 02/20/2023 1:20 PM EDT Radiology Service Progress Note PATIENT NAME: Mónica Decker DATE OF SERVICE: February 20, 2023 TIME: 1:11 PM PATIENT IDENTITY VERIFICATION COMPLETED USING TWO (2) IDENTIFIERS: Name and Date of confirmedby patient verbally. FALL SCREENING: Has the patient had 2 falls in the last year or 1 fall with injury or currently using an Ambulatory Assistive Device (Walker, Cane, Wheelchair, Crutches, etc.)? Yes, Patient High Riskfor Falls What interventions were put in place to prevent falls during this visit? Offered Assistance with Transfers/Clothing, Instructed Patient to Remain Seated (Not on Exam Table) Until Exam, and Patient Refused Interventions/Assistance PATIENT GENDER DATA: Female. status: : No status: NO. PATIENT RELEVANT IMPLANT DATA REVIEWED: Yes RADIOLOGY DEPARTMENT: General X-ray: Exam(s) Completed: Pelvis X-Ray: Pelvis with Hip Right PERIPHERAL IV DATA: Not applicable SIGNED BY: RT Kai(R) February 20, 2023 1:11 PM documented in this encounterOhio[facility]04-14-2023 Instructions* Patient Instructions* Ramiro Dominguez APRN.CNP - 02/07/2023 2:05 PM EDT Start pravastatin Schedule with Orthopedics Follow up in [address] Marmolejo documented in this encounterOhio[facility]04-14-2023 History of Present illness Narrative* Ramiro Dominguez APRN.CNP - 02/07/2023 1:40 PM EDT Chief Complaint Patient presents with: Follow Up HPI Mónica Decker is a 72 year old female who presents here today for Above Complaints.. Patient presents for routine follow up.Patient was seen last month for multiple complaints. Patientwas seen by Dr. Herrera of surgery for concern for hidradenitis. Dr. Herrera diagnosed her with intertrigo and Patient was given instructions to decrease skin issues. Past medical history, appointments, medications, allergies reviewed. Previous Medical History PAST MEDICAL HISTORY Diagnosis Date 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 01/24/2021 Adenomatous colon polyp Allergic rhinitis 07/08/2005 Dystrophic nail 01/24/2021 multiple bilateral toes. Elevated hemoglobin A1c 08/27/2018 Essential hypertension, benign 07/08/2005 Fracture left forearm and right radial head Hammer toes of both feet 01/24/2021 Hyperlipidemia, mixed 02/05/2018 As of 02/05/18 patient declines statin therapy. Medicare annual wellness visit, subsequent 08/27/2018 Medicare part B: 02/24/2014 last done: 08/27/2019 Morbid (severe) obesity due to excess calories (HCC) 02/06/2006 OAB (overactive bladder) 12/19/2020 Declines medication as of 12/19/20 Obesity, Class II, BMI 35-39.9 02/19/2021 SANDRA (obstructive sleep apnea) 07/08/2005 Had corrective surgery Personal history of colonic polyps 03/14/2016 Postsurgical hypothyroidism 09/04/2005 Primary osteoarthritis of both hips 06/20/2015 Primary osteoarthritis of both knees 06/20/2015 Previous Surgical History PAST SURGICAL HISTORY Procedure Laterality Date AMPUTATION TOE,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 ARTHROSCOPY KNEE DIAGNOSTIC W/WO SYNOVIAL BX SPX Arthroscopy, knee COLONOSCOPY 05/30/2022 Tubular Adenoma-repeat in 3 years COLONOSCOPY FLX DX W/COLLJ SPEC WHEN PFRMD years ago Colonoscopy COLONOSCOPY FLX DX W/COLLJ SPEC WHEN PFRMD 10/13/2013 Colonoscopy COLONOSCOPY FLX DX W/COLLJ SPEC WHEN PFRMD 03/14/2016 Colonoscopy COLONOSCOPY FLX DX W/COLLJ SPEC WHEN PFRMD 11/09/2018 Colonoscopy COLSC FLX W/RMVL OF TUMOR POLYP LESION SNARE TQ 06/15/2010 PAST SURGICAL HISTORY OF 1960 bladder surgery to enlarge opening PAST SURGICAL HISTORY OF uvulectomy for SANDRA SIGMOIDOSCOPY FLX DX W/COLLJ SPEC BR/WA IF PFRMD 12/06/2013 Sigmoidoscopy, flexible THYROIDECTOMY TOTAL/COMPLETE 2004 Family History FAMILY HISTORY Problem Relation Age of Onset Heart Father fluid on heart Glaucoma Father Hypertension Mother Stroke Brother Strabismus Brother Detached Retina Brother Patient Allergies ALLERGIES Allergen Reactions Latex Unknown Current Medications Current Outpatient Medications on File Prior to Visit Medication Sig levothyroxine (SYNTHROID) 137 mcg tablet Take 1 tablet by mouth once daily. lisinopril (ZESTRIL) 10 mg tablet Take 1 tablet by mouth once daily. hydroCHLOROthiazide 25 mg tablet Take 1 tablet by mouth once daily. mometasone (ELOCON) 0.1 % cream Apply to areas twice a day. On for 4 days and off for 3 days. Repeat as needed. cefADROxil (DURICEF) 500 mg capsule Take 1 capsule by mouth twice daily. Lactobac no.41/Bifidobact no.7 (PROBIOTIC-10 ORAL) Take 1-2 tablets by mouth once daily. peg 3350-Electrolytes (GOLYTELY) 236-22.74-6.74 -5.86 gram suspension Refer to printed prep instructions from your provider. OTC PRODUCT Takes beet powder daily cholecalciferol, vitamin D3, (VITAMIN D3 ORAL) Take 1 tablet by mouth once daily. ascorbic acid (VITAMIN C ORAL) Take 1 tablet by mouth once daily. COLLAGEN MISC 1 tablet once daily. Collagen blend + #2 naproxen sodium 220 mg cap Take by mouth as directed. omega-3 fatty acids 1,000 mg cap Take 1 capsule by mouth three times daily. COENZYME Q10 60 MG CAP Take one(1) tablet daily. multivitamins w-minerals(DAILY MULTIVITAMIN-MINERALS TAB) Take one(1) tablet daily. No current facility-administered medications on file prior to visit. Social History Social History Tobacco Use Smoking status: Never Smokeless tobacco: Never Tobacco comments: Mom used to smoke, quit 2011 Vaping Use Vaping Use: Never used Substance Use Topics Alcohol use: No Drug use: No Review of Symptoms REVIEW OF SYSTEMS SEE HPI EXAM: BP 138/80 Pulse 74 Resp 18 Wt 85.7 kg (189 lb) BMI 38.17 kg/m General Appearance: Well appearing, alert, in no acute distress, well-hydrated, well nourished.. Skin: Skin color, texture, turgor normal, no suspicious rashes or lesions. Lungs: Lungs clear to auscultation. No wheezing, rhonchi, rales.. Heart: RRR without murmur, gallop, or rubs. No ectopy. Health Maintenance List SHINGRIX VACCINE(1 of 2) Never done COVID-19 VACCINE(2 - Booster for Jaden series) due on 03/03/2021 MAMMOGRAM due on 04/18/2022 BP CONTROLLED (<130/80) due on 06/20/2022 ADVANCE DIRECTIVE DISCUSSION due on 10/27/2022 DEPRESSION ASSESSMENT Never done ANNUAL PCP TEAM CHRONIC DISEASE VISIT due on 01/10/2024 COLORECTAL CANCER SCREENING due on 05/30/2025 DIABETES SCREEN due on 01/09/2026 LIPID SCREEN due on 01/10/2028 DTAP,TDAP,TD(3 - Td or Tdap) due on 06/04/2029 BONE DENSITY Completed INFLUENZA Discontinued HEPATITIS C SCREENING Discontinued PNEUMOCOCCAL: 65+ Discontinued Data Reviewed Component Latest Ref Rng & Units 01/09/2023 WBC 3.70 - 11.00 k/uL 6.87 RBC 3.90 - 5.20 m/uL 4.65 Hemoglobin 11.5 - 15.5 g/dL 14.1 Hematocrit 36.0 - 46.0 % 41.1 MCV 80.0 - 100.0 fL 88.4 MCH 26.0 - 34.0 pg 30.3 MCHC 30.5 - 36.0 g/dL 34.3 RDW-CV 11.5 - 15.0 % 12.0 Platelet Count 150 - 400 k/uL 248 MPV 9.0 - 12.7 fL 9.8 Neut% % 76.5 Abs Neut (ANC) 1.45 - 7.50 k/uL 5.26 Lymph% % 14.0 Abs Lymph 1.00 - 4.00 k/uL 0.96 (L) [place]% % 7.3 Abs [place] <0.87 k/uL 0.50 Eosin% % 1.2 Abs Eosin <0.46 k/uL 0.08 Baso% % 0.9 Abs Baso <0.11 k/uL 0.06 Immature Gran % % 0.1 IMMATURE GRANS (ABS) <0.10 k/uL <0.03 NRBC /100 WBC 0.0 Absolute nRBC <0.01 k/uL <0.01 DTYPE Auto Protein, Total 6.3 - 8.0 g/dL 6.7 Albumin 3.9 - 4.9 g/dL 4.4 Calcium 8.5 - 10.2 mg/dL 9.8 Bilirubin, Total 0.2 - 1.3 mg/dL 1.0 Alkaline Phosphatase 34 - 123 U/L 75 AST 13 - 35 U/L 21 ALT 7 - 38 U/L 13 Glucose 74 - 99 mg/dL 99 BUN 7 - 21 mg/dL 17 Creatinine 0.58 - 0.96 mg/dL 0.73 Sodium 136 - 144 mmol/L 135 (L) Potassium 3.7 - 5.1 mmol/L 3.9 Chloride 97 - 105 mmol/L 100 CO2 22 - 30 mmol/L 23 Anion Gap 9 - 18 mmol/L 12 eGFR >=60 mL/min/1.73m 87 Total Cholesterol, Nonfasting <200 mg/dL 246 (H) Triglycerides, Nonfasting <150 mg/dL 216 (H) HDL Cholesterol, Nonfasting >39 mg/dL 60 LDL Cholesterol, Nonfasting <100 mg/dL 143 (H) Non HDL Cholesterol, Nonfasting <130 mg/dL 186 (H) VLDL Cholesterol, Nonfasting <30 mg/dL 43 (H) Total Chol/HDL Ratio, Nonfasting <5.10 mg/dL 4.10 LDL/HDL Ratio, Nonfasting <2.54 mg/dL 2.38 Hemoglobin A1C 4.3 - 5.6 % 5.1 Estimated Average Glucose mg/dL 100 TSH 0.270 - 4.200 mIU/L 2.380 ASSESSMENT/PLAN: 1. Right hip pain - ICD9: 719.45, ICD10: M25.551 (primary diagnosis) - CONSULT TO ORTHOPAEDICS 2. Hyperlipidemia, mixed - ICD9: 272.2, ICD10: E78.2 - suboptimal control - Begin treatment with pravastatin (Pravachol) 10 mg - Encouraged following a low fat, low cholesterol diet. - PRAVASTATIN 10 MG TABLET 3. Essential hypertension, benign - ICD9: 401.1, ICD10: I10 - good control - Continue current medication(s) - Encouraged dietary sodium restriction/DASH diet - Recommended regular aerobic exercise. - Recommend home blood pressure monitoring, to bring results in on next visit - Discussed need and benefit for weight loss. - Goal of BP <130/80 4. Primary osteoarthritis of both hips - ICD9: 715.15, ICD10: M16.0 - CONSULT TO ORTHOPAEDICS 5. Obesity, Class II, BMI 35-39.9 - ICD9: 278.00, ICD10: E66.9 Stable - Behavioral intervention Ramiro Dominguez APRN.FINISHING TUNNEL OPERATOR documented in this encounterOhio[facility]04-07-2023 History of Present illness Narrative* Purvi Herrera MD - 01/31/2023 4:46 PM EDT Mónica Decker 1950 REFERRING PHYSICIAN: Mateo Marmolejo MD CHIEF COMPLAINT: Consult (Possible hydradenitis.) HPI: The patient is a 72 year old female presents with lesions of her left and right groin area. She notes a skin lump in the right groin area and also notes a skin protrusion in the area which she calls a mole. She is concerned about cancer. She also has noted an increasing lesion of her left groin area. She was placed on antibiotics for the above. Also, she states that she cleans area with 70% alcohol and neosporin cream. She also admits to incontinence and increased moisture in the area. She has noted increasing irritation in the area for the past year or two. Antibiotic cream has helped. PAST MEDICAL HISTORY Diagnosis Date 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 01/24/2021 Adenomatous colon polyp Allergic rhinitis 07/08/2005 Dystrophic nail 01/24/2021 multiple bilateral toes. Elevated hemoglobin A1c 08/27/2018 Essential hypertension, benign 07/08/2005 Fracture left forearm and right radial head Hammer toes of both feet 01/24/2021 Hyperlipidemia, mixed 02/05/2018 As of 02/05/18 patient declines statin therapy. 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 ARTHROSCOPY KNEE DIAGNOSTIC W/WO SYNOVIAL BX SPX Arthroscopy, knee COLONOSCOPY 05/30/2022 Tubular Adenoma-repeat in 3 years COLONOSCOPY FLX DX W/COLLJ SPEC WHEN PFRMD years ago Colonoscopy COLONOSCOPY FLX DX W/COLLJ SPEC WHEN PFRMD 10/13/2013 Colonoscopy COLONOSCOPY FLX DX W/COLLJ SPEC WHEN PFRMD 03/14/2016 Colonoscopy COLONOSCOPY FLX DX W/COLLJ SPEC WHEN PFRMD 11/09/2018 Colonoscopy COLSC FLX W/RMVL OF TUMOR POLYP LESION SNARE TQ 06/15/2010 PAST SURGICAL HISTORY OF 1960 bladder surgery to enlarge opening PAST SURGICAL HISTORY OF uvulectomy for SANDRA SIGMOIDOSCOPY FLX DX W/COLLJ SPEC BR/WA IF PFRMD 12/06/2013 Sigmoidoscopy, flexible THYROIDECTOMY TOTAL/COMPLETE 2004 Current Outpatient Medications Medication Sig levothyroxine (SYNTHROID) 137 mcg tablet Take 1 tablet by mouth once daily. lisinopril (ZESTRIL) 10 mg tablet Take 1 tablet by mouth once daily. hydroCHLOROthiazide 25 mg tablet Take 1 tablet by mouth once daily. mometasone (ELOCON) 0.1 % cream Apply to areas twice a day. On for 4 days and off for 3 days. Repeat as needed. cefADROxil (DURICEF) 500 mg capsule Take 1 capsule by mouth twice daily. Lactobac no.41/Bifidobact no.7 (PROBIOTIC-10 ORAL) Take 1-2 tablets by mouth once daily. peg 3350-Electrolytes (GOLYTELY) 236-22.74-6.74 -5.86 gram suspension Refer to printed prep instructions from your provider. OTC PRODUCT Takes beet powder daily cholecalciferol, vitamin D3, (VITAMIN D3 ORAL) Take 1 tablet by mouth once daily. ascorbic acid (VITAMIN C ORAL) Take 1 tablet by mouth once daily. COLLAGEN MISC 1 tablet once daily. Collagen blend + #2 naproxen sodium 220 mg cap Take by mouth as directed. omega-3 fatty acids 1,000 mg cap Take 1 capsule by mouth three times daily. COENZYME Q10 60 MG CAP Take one(1) tablet daily. multivitamins w-minerals(DAILY MULTIVITAMIN-MINERALS TAB) Take one(1) tablet daily. ALLERGIES: Latex PERSONAL HISTORY: Social History Tobacco Use Smoking status: Never Smokeless tobacco: Never Tobacco comments: Mom used to smoke, quit 2011 Vaping Use Vaping Use: Never used Substance Use Topics Alcohol use: No Drug use: No FAMILY HISTORY Problem Relation Age of Onset Heart Father fluid on heart Glaucoma Father Hypertension Mother Stroke Brother Strabismus Brother Detached Retina Brother The review of systems data was entered by the nurse and reviewed by va Nursing Notes: Kati Luciano RN 01/31/2023 3:41 PM Signed REVIEW OF SYSTEMS: General: The patient denies fatigue, denies weight loss, denies weight gain, denies feeling hot, and denies feelings of cold. Eyes: The patient denies glaucoma, denies eye injury/surgery, does not wear glasses or contacts. Ear/Nose/Throat: The patient denies allergies, NOTES hayfever, denies ear infections, and denies bloody noses. Cardiovascular: The patient denies chest pain, denies heart disease, NOTES high blood pressure,denies cardiac stent, denies prior heart attack, denies irregular heart beat, NOTES high cholesterol, denies poor circulation, denies heart failure, other cardiac issues, NOTES claudication, denies cold feet, denies peripheral arterial stent. Respiratory: The patient denies tuberculosis, denies pneumonia, denies frequent cough, denies pulmonary embolism, denies shortness of breath, denies coughing up blood and NOTES SANDRA. Gastrointestinal: The patient denies difficulty swallowing, denies acid reflux, denies ulcers, denies vomiting, denies jaundice/hepatitis, denies gallbladder problems, denies black or tarry stools, denies hemorrhoids, denies bleeding from rectum, denies diverticulitis, NOTES constipation, denies diarrhea, denies loss of stool control, and denies hernias. Kidney/Bladder: The patient denies kidney stones, NOTES urine infections, denies bloody urine and NOTES OAB. Skin: The patient denies a history of skin cancer, denies bleeding/changing moles, and denies a history of skin rash. Neurologic: The patient denies a history of epilepsy/convulsions, denies headaches, denies head/spinal injuries, and denies stroke/TIA. Psychiatric: The patient denies psychiatric medications, denies depression, and denies voices, denies substance abuse. Endocrine: The patient NOTES thyroid disorders, denies diabetes, and denies hormonal problems. Hematologic: The patient denies a history of bruising, denies bleeding, and denies anemia, denies blood clots. Infections: The patient NOTES a history of measles and mumps, denies rheumatic fever, and denies sexually transmitted diseases. Musculoskeletal: The patient denies back pain/injury, denies back problems, NOTES sciatica, NOTES knee/foot trouble, NOTES arthritis, or NOTES gout. When was patient's last Mammogram screening? 04/18/2021 Last Colonoscopy: 05/30/2022 Kati Luciano RN PHYSICAL EXAMINATION: General: The patient is 72 year old female, well nourished, well hydrated in no acute distress. Thepatient is oriented to time, place, and person. VITALS: Blood pressure 136/80, pulse 77, temperature 36.8 C (98.3 F), height 149.9 cm (4' 11), weight 85.4 kg (188 lb 3.2 oz), SpO2 96 %. Body mass index is 38.01 kg/m . Head: Normal cephalic, atraumatic Eyes: pupils are equally round, sclera are clear/anicteric Neck is supple with no tracheal deviation Respiratory: Normal respiratory excursion and pattern. Abdominal exam: benign, dermatitis from skin fold in the area, patient also noted to be wearing tight fitting clothing precluding air to skin Right perineal/groin area with irritated skinwith sebaceous cyst with blackhead - no evidence of infection and patient points to skin tag in the vicinity, left perineal/groin area with irritated skinand sebaceous cyst that is not actively infected; intertrigo dermatitis of both area and patient wearing tight fitting underwear of this area with elastic abrading skin in this area. Extremities: no clubbing, cyanosis or edema. Neuro: non focal Psych: normal mood Assessment IMPRESSION: intertrigo dermatitis PLAN: I have discussed the above with the patient. She does not have evidence of hidradenitis suppurativa. She has intertrigo due to her body habitus. I have no surgical options at this point in time for this patient. Any surgical excision to remove these sebaceous cysts would cause more harm than good because of the likelihood of infections of thewounds due to intertrigo. I have recommended the following which is essentially good skin care - -Dry yourself thoroughly with a clean towel after you take a shower. Dry the affected area by patting it with a towel, not rubbing it. -Use a fan or a hairdryer on the cool setting over the affected area multiple times a day. -Wear loose clothing and breathable fabrics, such as cotton. -Use a powder drying agent, such as baking soda powder based or some other natural ingredient, on your affected area. -Use fiber skin barriers: Use materials such as clean gauze or cotton to separate the affected skinthat is touching can help reduce friction. -Avoid wearing tight clothes or shoes. -Wear clothes that are made of breathable and absorbent fabrics, such as cotton, and avoiding clothes made of synthetic materials. -Use a skin barrier protectant cream if you have incontinence. I have offered referral to a labeling associate to discuss a structured skin care routine, patient defers this. Also control of diabetes would help. The patient acknowledges the above. I have answered all questions to the patient s satisfaction and the patient has no further questions. I have confirmed and edited as necessary, the PFSH and ROS obtained by others. Consultation requested by Dr. Mateo Marmolejo for an opinion regarding patient's intertrigo. My final recommendations will be communicated back to the requesting physician by way of shared Medical record or letter to requesting physician via US mail. . Diagnoses: (L30.4) Intertrigo Return to Clinic: The patient is instructed to follow-up with me as per needed. I spent a total of 31 minutes on the date of the service which included preparing to see the patient with review of any pertinent laboratory studies/radiological imaging/medical records, [id number] care, obtaining oral medical history from the patient in this encounter, performing a medically appropriate examination, counseling and educating the patient/family/caregiver, and ordering and completing appropriate medical documentation. Purvi Herrera MD documented in this encounterOhio[facility]04-07-2023 Nurse Note* Kati Luciano RN - 01/31/2023 3:38 PM EDT REVIEW OF SYSTEMS: General: The patient denies fatigue, denies weight loss, denies weight gain, denies feeling hot, and denies feelings of cold. Eyes: The patient denies glaucoma, denies eye injury/surgery, does not wear glasses or contacts. Ear/Nose/Throat: The patient denies allergies, NOTES hayfever, denies ear infections, and denies bloody noses. Cardiovascular: The patient denies chest pain, denies heart disease, NOTES high blood pressure,denies cardiac stent, denies prior heart attack, denies irregular heart beat, NOTES high cholesterol, denies poor circulation, denies heart failure, other cardiac issues, NOTES claudication, denies cold feet, denies peripheral arterial stent. Respiratory: The patient denies tuberculosis, denies pneumonia, denies frequent cough, denies pulmonary embolism, denies shortness of breath, denies coughing up blood and NOTES SANDRA. Gastrointestinal: The patient denies difficulty swallowing, denies acid reflux, denies ulcers, denies vomiting, denies jaundice/hepatitis, denies gallbladder problems, denies black or tarry stools, denies hemorrhoids, denies bleeding from rectum, denies diverticulitis, NOTES constipation, denies diarrhea, denies loss of stool control, and denies hernias. Kidney/Bladder: The patient denies kidney stones, NOTES urine infections, denies bloody urine and NOTES OAB. Skin: The patient denies a history of skin cancer, denies bleeding/changing moles, and denies a history of skin rash. Neurologic: The patient denies a history of epilepsy/convulsions, denies headaches, denies head/spinal injuries, and denies stroke/TIA. Psychiatric: The patient denies psychiatric medications, denies depression, and denies voices, denies substance abuse. Endocrine: The patient NOTES thyroid disorders, denies diabetes, and denies hormonal problems. Hematologic: The patient denies a history of bruising, denies bleeding, and denies anemia, denies blood clots. Infections: The patient NOTES a history of measles and mumps, denies rheumatic fever, and denies sexually transmitted diseases. Musculoskeletal: The patient denies back pain/injury, denies back problems, NOTES sciatica, NOTES knee/foot trouble, NOTES arthritis, or NOTES gout. When was patient's last Mammogram screening? 04/18/2021 Last Colonoscopy: 05/30/2022 Kati Luciano RN documented in this encounterOhio[facility]04-03-2023 Miscellaneous Notes* Telephone Encounter - Taurus Chang MA - 01/27/2023 1:24 PM EDT Patient contacted and would like letter mailed. Addresses verified. Taurus Chang MA * Telephone Encounter - Mateo Marmolejo MD - 01/27/2023 12:15 PM EDT letter ready * Telephone Encounter - Monty Minor RN - 01/27/2023 9:23 AM EDT Patient reports her handicap dagoberto in December. Asking if pcp would write her a new one? Reports due to worn out joints, she is unable to walk without a cane. Please phone patient for fruit or nut picker. documented in this encounterOhiohealth [facility]03-17-2023 Miscellaneous Notes* Telephone Encounter - Taurus Chang MA - 01/10/2023 1:25 PM EDT Patient notified and voiced understanding. Taurus Chang MA * Telephone Encounter - Mateo Marmolejo MD - 01/10/2023 12:28 PM EDT Let patient know CBC, thyroid lab, blood sugar test, electrolytes, liver and kidney and liver functions were all ok. Lipid panel showed Trigs elevated at 216 (goal<150), HDL good at 60 and LDL elevated at 143 (goal<130). Needs to work on reduced fat and weight loss since not interested in medication management. documented in this encounterOhio[facility]03-07-2023 Miscellaneous Notes* Telephone Encounter - Esther Worrell MA - 12/31/2022 1:51 PM EST Spoke with patient, appointment scheduled. Esther Worrell MA * Telephone Encounter - Erma Frias LPN - 12/25/2022 2:55 PM EST Attempted to reach pt by phone with out success., it just keeps ringing. Will try later. Erma Frias LPN * Telephone Encounter - Mateo Marmolejo MD - 12/24/2022 6:21 PM EST let patient know a refill for her synthroid was only given for 30 days. Advise her she needs seen in the next 30 days or future refills will be denied. Also advise her shewas last seen in January and was to f/u in 6 months which was July however she cancelled and neverrescheduled and that was not winter time. Currently we are not expecting any large snow storms or snow fall so she should be fine coming to office. The following approved medication requests have been transmitted electronically. Requested Prescriptions Signed Prescriptions Disp Refills levothyroxine (SYNTHROID) 137 mcg tablet 30 tablet 0 Sig: Take 1 tablet by mouth once daily. Authorizing Provider: MATEO MARMOLEJO MD * Telephone Encounter - Vernell Bernardo RN - 12/24/2022 4:58 PM EST Patient calls and states that she is completely out of medication since Friday. Advised patient that she needs to set up yearly appointment labs. Patient states that she does not come out during the winter. Patient upset because she thought medication was on automatic refill. Advised patient that she needs to call in yearly for refill and to not rely on pharmacy contacting primary care provider for refill. Patient not understanding this, states my medications are always on automatic refill. Last Office Visit: 02/14/2022 Future Office Visit: Requested Prescriptions Pending Prescriptions Disp Refills levothyroxine (SYNTHROID) 137 mcg tablet 90 tablet 3 Sig: Take 1 tablet by mouth once daily. Date of Last Labs: 02/14/2022 documented in this encounterOhio[facility]12-12-2022 Miscellaneous Notes* Telephone Encounter - Mateo Marmolejo MD - 10/07/2022 8:16 AM EST The following approved medication requests have been transmitted electronically. Requested Prescriptions Signed Prescriptions Disp Refills lisinopril (ZESTRIL, PRINIVIL) 10 mg tablet 90 tablet 0 Sig: Take 1 tablet by mouth once daily. Authorizing Provider: MATEO MARMOLEJO MD * Telephone Encounter - Taurus Chang MA - 10/07/2022 8:08 AM EST Patient has been identified by name and date of : Yes Requested Prescriptions Pending Prescriptions Disp Refills lisinopril (ZESTRIL, PRINIVIL) 10 mg tablet 90 tablet 1 Sig: Take 1 tablet by mouth once daily. RX INSTRUCTIONS: Patient aware RX will be sent to pharmacy. No need to notify patient. Taurus Chang MA Flynn: 01/2022 No appointment scheduled. Patient is currently due for 6 month follow up. L/m for patient to contact office for appt Last refill: 03/2022 * Telephone Encounter - Jessie Barfield - 10/05/2022 11:27 AM ESTSummary: Refill Patient has been identified by name and date of : Yes Last office visit in this department: 02/14/2022 RX INSTRUCTIONS: Patient aware RX will be sent to pharmacy. No need to notify patient. Patient phones requesting refills as follows: Requested Prescriptions Pending Prescriptions Disp Refills lisinopril (ZESTRIL, PRINIVIL) 10 mg tablet 90 tablet 1 Sig: Take 1 tablet by mouth once daily. Please review and advise. Jessie Barfield documented in this encounterOhiohealth [facility]07-27-2022 Miscellaneous Notes* Telephone Encounter - Taurus Chang MA - 05/22/2022 12:40 PM EDT Patient has been identified by name and date of : Yes Pending Prescriptions Disp Refills HYDROCHLOROTHIAZIDE 25 MG TABLET 90 tablet 1 Sig: Take 1 tablet by mouth once daily. DENA: No RX INSTRUCTIONS: Patient aware RX will be sent to pharmacy. No need to notify patient. Taurus Chang MA Flynn: 01/2022 Nov: 08/17 Last refill: 01/2022 * Telephone Encounter - Abeba Valdovinos - 05/22/2022 12:05 PM EDT Patient has been identified by name and date of : Yes Pending Prescriptions Disp Refills HYDROCHLOROTHIAZIDE 25 MG TABLET 90 tablet 1 Sig: Take 1 tablet by mouth once daily. DENA: No RX INSTRUCTIONS: patient has 1 pill left Patient aware RX will be sent to pharmacy. No need to notify patient. Abeba Valdovinos documented in this encounterOhiohealth [facility]07-12-2022 Instructions* Patient Instructions* Fatimah Morales APRN.CNP - 05/07/2022 11:09 AM EDT Your procedure will at [facility] they will call you to set up a date and time Follow the provided instructions for colonoscopy. You will be using GoLytely as the laxative duringthe preparation. You may start the laxative as early as 1:00 in the afternoon. The endoscopy staff will call you the day before the procedure with specific on arrival time. (Friday for Friday procedures). documented in this encounterOhiohealth [facility]07-12-2022 History of Present illness Narrative* Fatimah Morales APRN.CNP - 05/07/2022 10:30 AM EDT CHIEF COMPLAINT: Patient presents with: Outpatient Colonoscopy Diarrhea: just depends on what she eats and finds that oil is mainly the cause Constipation This consult was requested by Alida Jaeger PA-C for an opinion regarding colon cancer screening. My final recommendations will be communicated to the requesting health care provider by way of the shared medical record for internal providers or letter via the [employer] for external providers. Mónica Decker is a 72 year old female HTN, hyperlipidemia, overactive bladder, SANDRA, osteoarthritis. Who presents for 3-year screening colonoscopy Last colonoscopy 11/09/2018: Entire colon normal, no specimens collected. (Advise that should be done with MAC anesthesia on the next occasion due to patient's high medication requirements). Recommendation repeat colonoscopy in 3 years for surveillance. Colonoscopy 03/14/2016: one 12mm polyp in the cecum, fragments of tubular adenoma, diverticulosis inthe sigmoid colon and descending colon. 12/06/2013 sigmoidoscopy: Nonbleeding internal hemorrhoids, diverticulosis in the sigmoid colon 10/13/2013 colonoscopy: Nonbleeding external and internal hemorrhoids, diverticulosis in the sigmoid colon, 2 diminutive polyps in the descending colon; tubular adenoma. One medium polyp in the proximal sigmoid colon (incomplete resection) injected. Clipped: Tubular villous adenoma, one diminutive polyp in the distal sigmoid colon; tubular villous adenoma 06/15/2010 colonoscopy: Normal colonoscopy, tortuous colon, single small sessile polyp in the sigmoid colon. HPI: The patient denies change in bowel habits, denies black stool, rectal bleeding or abdominal pain. Having a bowel movement daily. At times on constipation she reports will drink water which will help and soften her stools. PAtient reports she is under stress taking care of her mother and reports last year she lost 50lbs. She reports she was 235 - currently 179lb. Denies fevers or chills. Denies upper GI concerns. Record Review: [facility] / Outside records reviewed. PAST MEDICAL HISTORY Diagnosis Date 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 01/24/2021 Allergic rhinitis 07/08/2005 Dystrophic nail 01/24/2021 multiple bilateral toes. Elevated hemoglobin A1c 08/27/2018 Essential hypertension, benign 07/08/2005 Fracture left forearm and right radial head Hammer toes of both feet 01/24/2021 Hyperlipidemia, mixed 02/05/2018 As of 02/05/18 patient declines statin therapy. 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 ARTHROSCOPY KNEE DIAGNOSTIC W/WO SYNOVIAL BX SPX Arthroscopy, knee COLONOSCOPY FLX DX W/COLLJ SPEC WHEN PFRMD years ago Colonoscopy COLONOSCOPY FLX DX W/COLLJ SPEC WHEN PFRMD 10/13/2013 Colonoscopy COLONOSCOPY FLX DX W/COLLJ SPEC WHEN PFRMD 03/14/2016 Colonoscopy COLONOSCOPY FLX DX W/COLLJ SPEC WHEN PFRMD 11/09/2018 Colonoscopy COLSC FLX W/RMVL OF TUMOR POLYP LESION SNARE TQ 06/15/2010 PAST SURGICAL HISTORY OF 1960 bladder surgery to enlarge opening PAST SURGICAL HISTORY OF uvulectomy for SANDRA SIGMOIDOSCOPY FLX DX W/COLLJ SPEC BR/WA IF PFRMD 12/06/2013 Sigmoidoscopy, flexible THYROIDECTOMY TOTAL/COMPLETE 2004 Allergies: ALLERGIES Allergen Reactions Latex Unknown Medications: Lactobac no.41/Bifidobact no.7 (PROBIOTIC-10 ORAL) Take 1-2 tablets by mouth once daily. lisinopril (ZESTRIL, PRINIVIL) 10 mg tablet Take 1 tablet by mouth once daily. OTC PRODUCT Takes beet powder daily hydroCHLOROthiazide (HYDRODIURIL, ESIDRIX) 25 mg tablet Take 1 tablet by mouth once daily. levothyroxine (SYNTHROID) 137 mcg tablet Take 1 tablet by mouth once daily. cholecalciferol, vitamin D3, (VITAMIN D3 ORAL) Take 1 tablet by mouth once daily. ascorbic acid (VITAMIN C ORAL) Take 1 tablet by mouth once daily. COLLAGEN MISC 1 tablet once daily. Collagen blend + #2 naproxen sodium (ALEVE) 220 mg cap Take by mouth as directed. omega-3 fatty acids 1,000 mg cap Take 1 capsule by mouth three times daily. COENZYME Q10 60 MG CAP Take one(1) tablet daily. multivitamins w-minerals(DAILY MULTIVITAMIN-MINERALS TAB) Take one(1) tablet daily. peg 3350-Electrolytes (GOLYTELY) 236-22.74-6.74 -5.86 gram suspension Refer to printed prep instructions from your provider. FAMILY HISTORY Problem Relation Age of Onset Heart Father fluid on heart Glaucoma Father Hypertension Mother Stroke Brother Strabismus Brother Detached Retina Brother Employer And Job Title: [employer] Years Of Education Completed: Not specified Marital Status: with no children Social History Tobacco Use Smoking status: Never Smoker Smokeless tobacco: Never Used Tobacco comment: Mom used to smoke, quit 2011 Vaping Use Vaping Use: Never used Substance Use Topics Alcohol use: No Drug use: No Review of Systems: Review of Systems Gastrointestinal: Positive for abdominal distention, constipation and diarrhea. All other systems reviewed and are negative. Are you taking any blood thinners? No Physical Examination: BP 116/62 Pulse 69 Ht 4' 11 (1.50m) Wt 179 lb (81.2kg) SpO2 98% BMI 36.13 kg/(m^2). Physical Exam Constitutional: Appearance: Normal appearance. She is normal weight. HENT: Head: Normocephalic and atraumatic. Eyes: Extraocular Movements: Extraocular movements intact. Pupils: Pupils are equal, round, and reactive to light. Cardiovascular: Rate and Rhythm: Normal rate and regular rhythm. Pulses: Normal pulses. Heart sounds: Normal heart sounds. Pulmonary: Effort: Pulmonary effort is normal. Breath sounds: Normal breath sounds. Abdominal: General: Abdomen is flat. Bowel sounds are normal. Palpations: Abdomen is soft. Musculoskeletal: General: Normal range of motion. Cervical back: Normal range of motion and neck supple. Skin: General: Skin is warm and dry. Neurological: General: No focal deficit present. Mental Status: She is alert and oriented to person, place, and time. Psychiatric: Mood and Affect: Mood normal. Behavior: Behavior normal. ASSESSMENT: Screening for colon cancer Chronic constipation Unintentional weight loss (primary encounter diagnosis) PLAN: Assessment/Plan (R63.4) Unintentional weight loss (primary encounter diagnosis) (Z12.11) Screening for colon cancer (K59.09) Chronic constipation 1. Screening for colon cancer -Patient presents today for evaluation of 3-year colonoscopy screening. Patient's most recent colonoscopy 10/2018 normal no polyps were seen advised at that time 3-year colonoscopy screening. Patient has a history of tubular villous adenomas seen on 2013 colonoscopy. (See above). -It is recommended patient have MAC sedation before next colonoscopy. Will recommend patient have colonoscopy done at [facility]. - CONSULT TO GENERAL SURGERY - peg 3350-Electrolytes (GOLYTELY) 236-22.74-6.74 -5.86 gram suspension; Refer to printed prep instructions from your provider. Dispense: 4000 mL; Refill: 0 - COLONOSCOPY SCREENING; Future 2. Chronic constipation - CONSULT TO GENERAL SURGERY - peg 3350-Electrolytes (GOLYTELY) 236-22.74-6.74 -5.86 gram suspension; Refer to printed prep instructions from your provider. Dispense: 4000 mL; Refill: 0 3. Unintentional weight loss - COLONOSCOPY SCREENING; Future Follow up in office 3 months/PRN. Recommended to please call office/go to ER if fever, chills, chest pain, SOB, diarrhea, nausea, emesis, worsening abdominal pain, dehydration occurs I spent a total of 30 minutes on the date of the service which included preparing to see the patient, [id number] patient care, completing clinical documentation, obtaining and/or reviewing separately obtained history, performing a medically appropriate examination, counseling and educating the pat ient/family/caregiver, ordering medications, tests, or procedures, communicating with other HCPs (not separately reported), independently interpreting results (not separately reported), communicatingresults to the patient/family/caregiver, and care coordination (not separately reported). Fatimah Morales APRN.CNP DATE: 05/07/22 TIME: 8:08 AM documented in this encounterOhio[facility]06-02-2022 Miscellaneous Notes* Telephone Encounter - Taurus Chang MA - 03/28/2022 4:58 PM EDT Provider is out of the office until 04/08. Sending to DOC. Taurus Chang MA * Telephone Encounter - Kendy Preston LPN - 03/28/2022 4:01 PM EDT Patient calling said she has been out of medication since Friday. Said she called several times, nonote in computer. Please advise Patient has been identified by name and date of : Yes Patient phones for refill(s): Pending Prescriptions Disp Refills LISINOPRIL 10 MG TABLET 90 tablet 1 Sig: Take 1 tablet by mouth once daily. DENA: No Date of last office visit in primary care: 02/14/2022, has appt 08/02/2022 Last 2 Encounter Wt Readings: Date: Wt: 02/14/2022 86.6 kg (191 lb) 06/20/2021 87.5 kg (193 lb) Previous labs/tests for medication: Blood Pressure: BUN (mg/dL) Date Value 02/14/2022 20 12/19/2020 17 Sodium (mmol/L) Date Value 02/14/2022 133 12/19/2020 142 Last 1 Encounter BP Readings: Date: BP: 02/14/2022 128/80 Please advise. Thank you. Kendy Preston LPN documented in this encounterOhiohealth [facility]05-25-2022 History of Present illness Narrative* Solomon Humphries MD - 03/20/2022 12:59 PM EDT Assessment and Plan 1. Combined forms of age-related cataract of both eyes -visually significant right eye -still functional with vision with left eye 2. 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 PVD (posterior vitreous detachment), both eyes -stable floaters 4. Dry eye syndrome of bilateral lacrimal glands -mild symptoms Plan: -cataract surgery extensively discussed -feels functional and would like to hold off on surgery for now -continue with lubrication -follow-up Dr. Patino 1 year. Me sooner as needed for conisderation of surgery when ready I have confirmed and edited as necessary the relevant ophthalmic history, ROS, and the neuro exam findings as obtained by others. I have seen and examined Mónica Decker. I have discussed the case and the management of this patient's care with the Resident/Fellow, if applicable. I also have reviewed and agree with the assessment and plan as stated above and agree withall of its relevant components. Solomon Humphries MD March 20, 2022 12:59 PM documented in this encounterOhiohealth [facility]05-25-2022 Instructions* Patient Instructions* Solomon Humphries MD - 03/20/2022 12:57 PM EDT Images from the original note were not included. documented in this encounterOhiohealth [facility]04-22-2022 Instructions* Patient Instructions* Jai Patino, OD - 02/15/2022 1:31 PM EDT Use Systane Complete or Refresh Relieva twice daily in both eyes for dryness documented in this encounterOhiohealth [facility]04-22-2022 History of Present illness Narrative* Jai Patino, OD - 02/15/2022 1:30 PM EDT 1. Combined forms of age-related cataract of both eyes +visually significant OD>OS BCVA: 20/100 OD, 20/[address] Humphries for cataract consulation 2. 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 PVD (posterior vitreous detachment), both eyes Monitor 4. Dry eye syndrome of bilateral lacrimal glands Recommended artificial tears twice daily both eyes Follow-up with Dr. Humphries for cataract consult Jai Patino, OD February 15, 2022 1:30 PM documented in this encounterOhiohealth [facility]04-22-2022 Miscellaneous Notes* Telephone Encounter - Alida Jaeger PA-C - 02/15/2022 11:25 AM EDT Noted * Telephone Encounter - Kelvin Dietrich LPN - 02/15/2022 10:46 AM EDT Spoke with pt and reviewed results and instructions. Pt verbalizes understanding. Will come back tolab in a couple of weeks as instructed. Pt does not want to take anything for her cholesterol at this time. Kelvin Dietrich LPN * Telephone Encounter - Kelvin Dietrich LPN - 02/15/2022 8:55 AM EDT Attempted to contact pt, no answer and no vm. Unable to leave message. Will try again later. Kelvin Dietrich LPN * Telephone Encounter - Alida Jaeger PA-C - 02/15/2022 8:47 AM EDT Let patient know that her cholesterol has not improved. Her LDL is 160 with goal under 100. She's been opposed to statins in the past. Is this still the case? tsh is normal Sodium level is slightly lower than previously. I would like to trend this with repeat in a couple weeks. a1c is normal Urine looks good. Thanks. Alida Jaeger PA-C documented in this encounterOhiohealth [facility]04-21-2022 Instructions* Patient Instructions* Alida Jaeger PA-C - 02/14/2022 9:35 AM EDT Mammogram due end of March 2022. documented in this encounterOhiohealth [facility]04-21-2022 History of Present illness Narrative* Alida Jaeger PA-C - 02/14/2022 9:19 AM EDT Medicare Yearly Visit Medical B eligibilty date 02/24/14 Date of last exam 12/19/20 PAST MEDICAL HISTORY Diagnosis Date 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 01/24/2021 Allergic rhinitis 07/08/2005 Dystrophic nail 01/24/2021 multiple bilateral toes. Elevated hemoglobin A1c 08/27/2018 Essential hypertension, benign 07/08/2005 Fracture left forearm and right radial head Hammer toes of both feet 01/24/2021 Hyperlipidemia, mixed 02/05/2018 As of 02/05/18 patient declines statin therapy. 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 ARTHROSCOPY KNEE DIAGNOSTIC W/WO SYNOVIAL BX SPX Arthroscopy, knee COLONOSCOPY FLX DX W/COLLJ SPEC WHEN PFRMD years ago Colonoscopy COLONOSCOPY FLX DX W/COLLJ SPEC WHEN PFRMD 10/13/2013 Colonoscopy COLONOSCOPY FLX DX W/COLLJ SPEC WHEN PFRMD 03/14/2016 Colonoscopy COLONOSCOPY FLX DX W/COLLJ SPEC WHEN PFRMD 11/09/2018 Colonoscopy COLSC FLX W/RMVL OF TUMOR POLYP LESION SNARE TQ 06/15/2010 PAST SURGICAL HISTORY OF 1960 bladder surgery to enlarge opening PAST SURGICAL HISTORY OF uvulectomy for SANDRA SIGMOIDOSCOPY FLX DX W/COLLJ SPEC BR/WA IF PFRMD 12/06/2013 Sigmoidoscopy, flexible THYROIDECTOMY TOTAL/COMPLETE 2004 ALLERGIES: Latex Medications reviewed: Yes FAMILY HISTORY Problem Relation Age of Onset Heart Father fluid on heart Hypertension Mother Stroke Brother SOCIAL HISTORY: Social History Tobacco Use Smoking status: Never Smoker Smokeless tobacco: Never Used Tobacco comment: Mom used to smoke, quit 2011 Vaping Use Vaping Use: Never used Substance Use Topics Alcohol use: No Drug use: No Mónica likes to exercise by stay active. She has limited mobility so does what she can. She watches her diet for sodium, low fat and low cholesterol some of the time. List of current specialists seen: none End of Live Planning discussed including patients advanced directive wishes: Yes I am willing to follow Mónica's advanced directives. PHQ-2 / Depression screen She in the past two weeks admits to having felt down or depressed. 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 Depression Screening 12/26/2016 02/04/2018 02/24/2019 02/14/2022 PHQ-2 Score 0 0 0 4 PHQ-9 Score - - - 8 Depression screening tool completed and reviewed. Based on score and interview, patient is at risk for depression. Screening tool discussed with patient, and I recommended no further intervention at this time. Patient declines any treatment for this. Functional Ability/Safety Screen 1. Was the patient's timed Up and Go test unsteady or longer than 30 seconds? No 2. Does the patient need help with the phone, transportation, shopping,preparing meals, housework, laundry, medications or managing money? Yes 3. Does your home have rugs in the hallway, lack of grab bars in the bathroom, lack of handrails onthe stairs or have poor lighting? No Hearing Evaluation: within normal limits and normal PHYSICAL EXAM BP 128/80 (BP Site: Left Arm, BP Position: Sitting, BP Cuff Size: Large Adult) Pulse 68 Temp 37.3 C (99.2 F) Resp 18 Ht 148 cm (4' 10.27) Wt 86.6 kg (191 lb) BMI 39.55 kg/m Alert and oriented X 3: YES Body mass index is 39.55 kg/m . ASSESSMENT/PLAN: 71 year old female The following prevention plan was discussed during the office visit and provided to the patient: See below Alida Jaeger PA-C Chief Complaint Patient presents with: Medicare Wellness Exam HPI Mónica Decker is a 71 year old female who presents here today for extensive exam . Patient with hx of HTN, HLP, SANDRA, obesity, allergies, arthritis and those as reviewed below. Having some decreased vision in right eye mostly with reading small print in her books. Last 4 Encounter Wt Readings: Date: Wt: 02/14/2022 86.6 kg (191 lb) 06/20/2021 87.5 kg (193 lb) 04/14/2021 84.4 kg (186 lb) 03/29/2021 83.9 kg (185 lb) Past medical history, appointments, medications, allergies reviewed. Previous Medical History PAST MEDICAL HISTORY Diagnosis Date 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 01/24/2021 Allergic rhinitis 07/08/2005 Dystrophic nail 01/24/2021 multiple bilateral toes. Elevated hemoglobin A1c 08/27/2018 Essential hypertension, benign 07/08/2005 Fracture left forearm and right radial head Hammer toes of both feet 01/24/2021 Hyperlipidemia, mixed 02/05/2018 As of 02/05/18 patient declines statin therapy. Medicare annual wellness visit, subsequent 08/27/2018 Medicare part B: 02/24/2014 last done: 08/27/2019 Morbid (severe) obesity due to excess calories (HCC) 02/06/2006 OAB (overactive bladder) 12/19/2020 Declines medication as of 12/19/20 Obesity, Class II, BMI 35-39.9 02/19/2021 SANDRA (obstructive sleep apnea) 07/08/2005 Had corrective surgery Personal history of colonic polyps 03/14/2016 Postsurgical hypothyroidism 09/04/2005 Primary osteoarthritis of both hips 06/20/2015 Primary osteoarthritis of both knees 06/20/2015 Previous Surgical History PAST SURGICAL HISTORY Procedure Laterality Date AMPUTATION TOE,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 ARTHROSCOPY KNEE DIAGNOSTIC W/WO SYNOVIAL BX SPX Arthroscopy, knee COLONOSCOPY FLX DX W/COLLJ SPEC WHEN PFRMD years ago Colonoscopy COLONOSCOPY FLX DX W/COLLJ SPEC WHEN PFRMD 10/13/2013 Colonoscopy COLONOSCOPY FLX DX W/COLLJ SPEC WHEN PFRMD 03/14/2016 Colonoscopy COLONOSCOPY FLX DX W/COLLJ SPEC WHEN PFRMD 11/09/2018 Colonoscopy COLSC FLX W/RMVL OF TUMOR POLYP LESION SNARE TQ 06/15/2010 PAST SURGICAL HISTORY OF 1960 bladder surgery to enlarge opening PAST SURGICAL HISTORY OF uvulectomy for SANDRA SIGMOIDOSCOPY FLX DX W/COLLJ SPEC BR/WA IF PFRMD 12/06/2013 Sigmoidoscopy, flexible THYROIDECTOMY TOTAL/COMPLETE 2004 Family History FAMILY HISTORY Problem Relation Age of Onset Heart Father fluid on heart Hypertension Mother Stroke Brother Patient Allergies ALLERGIES Allergen Reactions Latex Unknown Current Medications Current Outpatient Medications on File Prior to Visit Medication Sig OTC PRODUCT Takes beet powder daily levothyroxine (SYNTHROID) 137 mcg tablet Take 1 tablet by mouth once daily. hydroCHLOROthiazide (HYDRODIURIL, ESIDRIX) 25 mg tablet Take 1 tablet by mouth once daily. lisinopril (ZESTRIL, PRINIVIL) 10 mg tablet Take 1 tablet by mouth once daily. cholecalciferol, vitamin D3, (VITAMIN D3 ORAL) Take 1 tablet by mouth once daily. ascorbic acid (VITAMIN C ORAL) Take 1 tablet by mouth once daily. COLLAGEN MISC 1 tablet once daily. Collagen blend + #2 naproxen sodium (ALEVE) 220 mg cap Take by mouth as directed. omega-3 fatty acids 1,000 mg cap Take 1 capsule by mouth three times daily. COENZYME Q10 60 MG CAP Take one(1) tablet daily. multivitamins w-minerals(DAILY MULTIVITAMIN-MINERALS TAB) Take one(1) tablet daily. No current facility-administered medications on file prior to visit. Social History Social History Tobacco Use Smoking status: Never Smoker Smokeless tobacco: Never Used Tobacco comment: Mom used to smoke, quit 2011 Vaping Use Vaping Use: Never used Substance Use Topics Alcohol use: No Drug use: No Review of Symptoms REVIEW OF SYSTEMS GENERAL: No weight loss, malaise or fevers HEENT: SEE HPI NECK: Negative for lumps, goiter, pain and significant neck swelling RESPIRATORY: Negative for cough, hemoptysis, wheezing, COPD, dyspnea or shortness of breath CARDIOVASCULAR: Negative for chest pain, leg swelling, CHF or palpitations GI: Negative for abdominal discomfort, blood in stools or black stools, change in bowel habit, diarrhea, heart burn, nausea, vomiting and Positive for constipation : No history of dysuria, frequency or incontinence MUSCULOSKELETAL: chronic joint pain. SKIN: Negative for lesions, rash, and itching PSYCH: see above- has some stress from caring for her mom who has dementia. HEMATOLOGY/LYMPHOLOGY: Negative for prolonged bleeding, bruising easily or swollen nodes ENDOCRINE: Negative for cold or heat intolerance, polyuria, polydipsia and goiter NEURO: No history of headaches, syncope, paralysis, seizures or tremors EXAM: BP 128/80 (BP Site: Left Arm, BP Position: Sitting, BP Cuff Size: Large Adult) Pulse 68 Temp 37.3 C (99.2 F) Resp 18 Ht 148 cm (4' 10.27) Wt 86.6 kg (191 lb) BMI 39.55 kg/m General Appearance: Well appearing, alert, in no acute distress, well-hydrated, well nourished. andObese. Skin: Skin color, texture, turgor normal, no suspicious rashes or lesions on exposed skin. Head: Normocephalic, no masses, lesions, tenderness or abnormalities. Eyes: Anicteric sclera. Pupils are equally round and reactive to light. Extraocular movements are intact. . Ears: cerumen b/l, External ears normal, Nose/Sinuses: deferred- mask. Oropharynx: deferred- mask Neck: Supple, no adenopathy; thyroid symmetric, normal size, no bruits. Lungs: Lungs clear to auscultation. No wheezing, rhonchi, rales.. Heart: RRR without murmur, gallop, or rubs. No ectopy. Abdomen: Normal abdominal exam, Abdomen soft, non-tender. Bowel sounds normal. No masses, organomegaly. Extremities: No deformities, edema, skin discoloration, clubbing or cyanosis. Good capillary refill. . Peripheral Pulses: Normal. Neurologic: Gait normal. Reflexes normal and symmetric. Sensation grossly intact.. Health Maintenance List COVID-19 VACCINE(2 - Booster for Jaden series) due on 03/03/2021 ADVANCE DIRECTIVE DISCUSSION Never done COLORECTAL CANCER SCREENING due on 11/09/2021 DEPRESSION SCREENING due on 12/19/2021 MAMMOGRAM due on 04/18/2022 SHINGRIX VACCINE(1 of 2) due on 06/20/2022 ANNUAL PCP TEAM CHRONIC DISEASE VISIT due on 06/20/2022 BP CONTROLLED (<130/80) due on 06/20/2022 DIABETES SCREEN due on 06/20/2024 LIPID SCREEN due on 06/20/2026 DTAP,TDAP,TD(3 - Td or Tdap) due on 06/04/2029 BONE DENSITY Completed MENINGOCOCCAL CONJUGATE Aged Out INFLUENZA Discontinued HEPATITIS C SCREENING Discontinued PNEUMOVAX AGE 65 AND OVER WITH 5YR LOOKBACK Discontinued Data reviewed n/a ASSESSMENT/PLAN: 1. Medicare annual wellness visit, subsequent - ICD9: V70.0, ICD10: Z00.00 (primary diagnosis) - Counseled on healthy diet and regular exercise - Calcium intake with supplements or by diet of 1000 mg/day for under 50, 1200- 1500 mg/day for 50+ 2. Advance directive discussed with patient - ICD9: V65.49, ICD10: Z71.89 Paperwork given 3. Essential hypertension, benign - ICD9: 401.1, ICD10: I10 - good control - Continue current medication(s) - Recommended regular aerobic exercise. - Recommend home blood pressure monitoring, to bring results in on next visit - Goal of BP <130/80 - COMP METABOLIC PANEL - URINALYSIS, WITH MICROSCOPIC 4. Hyperlipidemia, mixed - ICD9: 272.2, ICD10: E78.2 - to be determined upon return of lab results - Encouraged following a low fat, low cholesterol diet. - Continue current therapy. - LIPID PANEL, NONFASTING 5. Elevated hemoglobin A1c - ICD9: 790.29, ICD10: R73.09 Await labs - COMP METABOLIC PANEL - HGB A1C - URINALYSIS, WITH MICROSCOPIC 6. Postsurgical hypothyroidism - ICD9: 244.0, ICD10: E89.0 - Instructed patient on importance of taking on an empty stomach either first thing in the morning or at bedtime. - TSH BLD 7. Reactive depression (situational) - ICD9: 300.4, ICD10: F32.9 Patient declines treatment We discuss that she may need to consider getting help to care for her mom. 8. Chronic constipation - ICD9: 564.00, ICD10: K59.09 - CONSULT TO GENERAL SURGERY 9. OAB (overactive bladder) - ICD9: 596.51, ICD10: N32.81 stable 10. Obesity, Class II, BMI 35-39.9 - ICD9: 278.00, ICD10: E66.9 Stable - Behavioral intervention 11. Blurred vision, right eye - ICD9: 368.8, ICD10: H53.8 Will set up with eye exam - CONSULT TO OPHTHALMOLOGY 12. SANDRA (obstructive sleep apnea) - ICD9: 327.23, ICD10: G47.33 No new issues 13. Bilateral impacted cerumen - ICD9: 380.4, ICD10: H61.23 Patient declines ear irrigation today 14. Screening for colon cancer - ICD9: V76.51, ICD10: Z12.11 - CONSULT TO GENERAL SURGERY 15. Primary osteoarthritis of both hips - ICD9: 715.15, ICD10: M16.0 Patient denies further treatment 16. Primary osteoarthritis of both knees - ICD9: 715.16, ICD10: M17.0 As above. F/u 6 months. Alida Jaeger PA-C documented in this encounterOhio[facility]04-21-2022 Nurse Note* Kelvin Dietrich LPN - 02/14/2022 9:08 AM EDT Falls Risk Intake: 1. Patient age 65 or over, unsteady, or was advised to use special equipment to aid ambulation (i.e., cane or walker)? Yes 2. Has the patient had two falls in the past year, or one with injury? No 3. Does the patient need to use their hands when pushing up from chair, or hold onto furniture whenambulating at home? No 4. Is the patient worried about falling? Yes Please inform patient that answering Yes to one or more of the questions above can increase theirrisk of falling Patient is at greater risk for falls. Falls Instruction: Teaching document below - reviewed and given to patient [facility] - FALLS Prevention Safety Plan [facility] - Preventing Falls and Maintaining Balance [facility] - My Mobility Plan [facility] - Chair Rise Exercises [facility] - Outpatient/Online Resources for Fall Prevention and Strengthening documented in this encounterOhio[facility]11[facility] History of Past illness Narrative* Problem Noted Date Resolved Date Well adult exam 08/27/2018 03/25/2020 Overview: last done: 08/27/2019 Unspecified nontoxic nodular goiter 07/08/2005 09/04/2005 documented as of this encounter (statuses as of 02/14/2022) [facility] of Past illness Narrative* Problem Noted Date Resolved Date Well adult exam 08/27/2018 03/25/2020 Overview: last done: 08/27/2019 Unspecified nontoxic nodular goiter 07/08/2005 09/04/2005 documented as of this encounter (statuses as of 02/15/2022) [facility] of Past illness Narrative* Problem Noted Date Resolved Date Well adult exam 08/27/2018 03/25/2020 Overview: last done: 08/27/2019 Unspecified nontoxic nodular goiter 07/08/2005 09/04/2005 documented as of this encounter (statuses as of 02/15/2022) [facility] of [facility] illness Narrative* Problem Noted Date Resolved Date Well adult exam 08/27/2018 03/25/2020 Overview: last done: 08/27/2019 Unspecified nontoxic nodular goiter 07/08/2005 09/04/2005 documented as of this encounter (statuses as of 03/20/2022) [facility] of [facility] illness Narrative* Problem Noted Date Resolved Date Well adult exam 08/27/2018 03/25/2020 Overview: last done: 08/27/2019 Unspecified nontoxic nodular goiter 07/08/2005 09/04/2005 documented as of this encounter (statuses as of 03/28/2022) [facility] of [facility] Narrative* Problem Noted Date Resolved Date Well adult exam 08/27/2018 03/25/2020 Overview: last done: 08/27/2019 Unspecified nontoxic nodular goiter 07/08/2005 09/04/2005 documented as of this encounter (statuses as of 05/07/2022) [facility] of [facility] Narrative* Problem Noted Date Resolved Date Well adult exam 08/27/2018 03/25/2020 Overview: last done: 08/27/2019 Unspecified nontoxic nodular goiter 07/08/2005 09/04/2005 documented as of this encounter (statuses as of 05/22/2022) [facility] of [facility] Narrative* Problem Noted Date Resolved Date Well adult exam 08/27/2018 03/25/2020 Overview: last done: 08/27/2019 Unspecified nontoxic nodular goiter 07/08/2005 09/04/2005 documented as of this encounter (statuses as of 10/07/2022) [facility] Narrative* Problem Noted Date Resolved Date Well adult exam 08/27/2018 03/25/2020 Overview: last done: 08/27/2019 Unspecified nontoxic nodular goiter 07/08/2005 09/04/2005 documented as of this encounter (statuses as of 12/31/2022) [facility] of [facility] Narrative* Problem Noted Date Resolved Date Well adult exam 08/27/2018 03/25/2020 Overview: last done: 08/27/2019 Unspecified nontoxic nodular goiter 07/08/2005 09/04/2005 documented as of this encounter (statuses as of 01/10/2023) [facility] Narrative* Problem Noted Date Resolved Date Well adult exam 08/27/2018 03/25/2020 Overview: last done: 08/27/2019 Unspecified nontoxic nodular goiter 07/08/2005 09/04/2005 documented as of this encounter (statuses as of 01/27/2023) [facility] Narrative* Problem Noted Date Resolved Date Well adult exam 08/27/2018 03/25/2020 Overview: last done: 08/27/2019 Unspecified nontoxic nodular goiter 07/08/2005 09/04/2005 documented as of this encounter (statuses as of 02/01/2023) [facility] Narrative* Problem Noted Date Resolved Date Well adult exam 08/27/2018 03/25/2020 Overview: last done: 08/27/2019 Unspecified nontoxic nodular goiter 07/08/2005 09/04/2005 documented as of this encounter (statuses as of 02/08/2023) [facility] Narrative* Problem Noted Date Resolved Date Well adult exam 08/27/2018 03/25/2020 Overview: last done: 08/27/2019 Unspecified nontoxic nodular goiter 07/08/2005 09/04/2005 documented as of this encounter (statuses as of 02/18/2023) [facility] Narrative* Problem Noted Date Resolved Date Well adult exam 08/27/2018 03/25/2020 Overview: last done: 08/27/2019 Unspecified nontoxic nodular goiter 07/08/2005 09/04/2005 documented as of this encounter (statuses as of 02/27/2023) [facility] Narrative* Problem Noted Date Resolved Date Well adult exam 08/27/2018 03/25/2020 Overview: last done: 08/27/2019 Unspecified nontoxic nodular goiter 07/08/2005 09/04/2005 documented as of this encounter (statuses as of 03/03/2023) [facility] Narrative* Problem Noted Date Resolved Date Well adult exam 08/27/2018 03/25/2020 Overview: last done: 08/27/2019 Unspecified nontoxic nodular goiter 07/08/2005 09/04/2005 documented as of this encounter (statuses as of 03/25/2023) [facility] Narrative* Problem Noted Date Resolved Date Well adult exam 08/27/2018 03/25/2020 Overview: last done: 08/27/2019 Unspecified nontoxic nodular goiter 07/08/2005 09/04/2005 documented as of this encounter (statuses as of 04/10/2023) [facility] Narrative* Problem Noted Date Resolved Date Well adult exam 08/27/2018 03/25/2020 Overview: last done: 08/27/2019 Unspecified nontoxic nodular goiter 07/08/2005 09/04/2005 documented as of this encounter (statuses as of 04/22/2023) [facility] Narrative* Problem Noted Date Resolved Date Well adult exam 08/27/2018 03/25/2020 Overview: last done: 08/27/2019 Unspecified nontoxic nodular goiter 07/08/2005 09/04/2005 documented as of this encounter (statuses as of 04/24/2023) [facility] Narrative* Problem Noted Date Resolved Date Well adult exam 08/27/2018 03/25/2020 Overview: last done: 08/27/2019 Unspecified nontoxic nodular goiter 07/08/2005 09/04/2005 documented as of this encounter (statuses as of 04/28/2023) [facility] Narrative* Problem Noted Date Diagnosed Date Resolved Date Well adult exam 08/27/2018 03/25/2020 Overview: last done: 08/27/2019 Unspecified nontoxic nodular goiter 07/08/2005 09/04/2005 documented as of this encounter (statuses as of 06/03/2023) [facility] Narrative* Problem Noted Date Diagnosed Date Resolved Date Well adult exam 08/27/2018 03/25/2020 Overview: last done: 08/27/2019 Unspecified nontoxic nodular goiter 07/08/2005 09/04/2005 documented as of this encounter (statuses as of 06/06/2023) [facility] Narrative* Problem Noted Date Diagnosed Date Resolved Date Well adult exam 08/27/2018 03/25/2020 Overview: last done: 08/27/2019 Unspecified nontoxic nodular goiter 07/08/2005 09/04/2005 documented as of this encounter (statuses as of 06/09/2023) [facility] Narrative* Problem Noted Date Diagnosed Date Resolved Date Well adult exam 08/27/2018 03/25/2020 Overview: last done: 08/27/2019 Unspecified nontoxic nodular goiter 07/08/2005 09/04/2005 documented as of this encounter (statuses as of 06/11/2023) [facility] Narrative* Problem Noted Date Diagnosed Date Resolved Date Well adult exam 08/27/2018 03/25/2020 Overview: last done: 08/27/2019 Unspecified nontoxic nodular goiter 07/08/2005 09/04/2005 documented as of this encounter (statuses as of 06/13/2023) [facility] Narrative* Problem Noted Date Diagnosed Date Resolved Date Well adult exam 08/27/2018 03/25/2020 Overview: last done: 08/27/2019 Unspecified nontoxic nodular goiter 07/08/2005 09/04/2005 documented as of this encounter (statuses as of 06/20/2023) [facility] Narrative* Problem Noted Date Diagnosed Date Resolved Date Well adult exam 08/27/2018 03/25/2020 Overview: last done: 08/27/2019 Unspecified nontoxic nodular goiter 07/08/2005 09/04/2005 documented as of this encounter (statuses as of 06/26/2023) [facility]-01-2018 History of Past illness Narrative* Problem Noted Date Diagnosed Date Resolved Date Well adult exam 08/27/2018 03/25/2020 Overview: last done: 08/27/2019 Unspecified nontoxic nodular goiter 07/08/2005 09/04/2005 documented as of this encounter (statuses as of 06/27/2023) [facility]2018 History of Past illness Narrative* Problem Noted Date Diagnosed Date Resolved Date Well adult exam 08/27/2018 03/25/2020 Overview: last done: 08/27/2019 Unspecified nontoxic nodular goiter 07/08/2005 09/04/2005 documented as of this encounter (statuses as of 07/01/2023) [facility]2018 History of Past illness Narrative* Problem Noted Date Diagnosed Date Resolved Date Well adult exam 08/27/2018 03/25/2020 Overview: last done: 08/27/2019 Unspecified nontoxic nodular goiter 07/08/2005 09/04/2005 documented as of this encounter (statuses as of 07/02/2023) [address]01-2018 History of Past illness Narrative* Problem Noted Date Diagnosed Date Resolved Date Well adult exam 08/27/2018 03/25/2020 Overview: last done: 08/27/2019 Unspecified nontoxic nodular goiter 07/08/2005 09/04/2005 documented as of this encounter (statuses as of 07/10/2023) [facility]2018 History of Past illness Narrative* Problem Noted Date Diagnosed Date Resolved Date Well adult exam 08/27/2018 03/25/2020 Overview: last done: 08/27/2019 Unspecified nontoxic nodular goiter 07/08/2005 09/04/2005 documented as of this encounter (statuses as of 08/01/2023) [facility]2018 History of Past illness Narrative* Problem Noted Date Diagnosed Date Resolved Date Well adult exam 08/27/2018 03/25/2020 Overview: last done: 08/27/2019 Unspecified nontoxic nodular goiter 07/08/2005 09/04/2005 documented as of this encounter (statuses as of 08/06/2023) [facility]2018 History of Past illness Narrative* Problem Noted Date Diagnosed Date Resolved Date Well adult exam 08/27/2018 03/25/2020 Overview: last done: 08/27/2019 Unspecified nontoxic nodular goiter 07/08/2005 09/04/2005 documented as of this encounter (statuses as of 08/12/2023) [facility]2018 History of Past illness Narrative* Problem Noted Date Diagnosed Date Resolved Date Well adult exam 08/27/2018 03/25/2020 Overview: last done: 08/27/2019 Unspecified nontoxic nodular goiter 07/08/2005 09/04/2005 documented as of this encounter (statuses as of 08/13/2023) [facility]2018 History of Past illness Narrative* Problem Noted Date Diagnosed Date Resolved Date Well adult exam 08/27/2018 03/25/2020 Overview: last done: 08/27/2019 Unspecified nontoxic nodular goiter 07/08/2005 09/04/2005 documented as of this encounter (statuses as of 08/13/2023) [facility] History of Past illness Narrative* Problem Noted Date Diagnosed Date Resolved Date Well adult exam 08/27/2018 03/25/2020 Overview: last done: 08/27/2019 Unspecified nontoxic nodular goiter 07/08/2005 09/04/2005 documented as of this encounter (statuses as of 08/31/2023) [facility]2018 History of Past illness Narrative* Problem Noted Date Diagnosed Date Resolved Date Well adult exam 08/27/2018 03/25/2020 Overview: last done: 08/27/2019 Unspecified nontoxic nodular goiter 07/08/2005 09/04/2005 documented as of this encounter (statuses as of 09/17/2023) [facility]2018 History of Past illness Narrative* Problem Noted Date Diagnosed Date Resolved Date Well adult exam 08/27/2018 03/25/2020 Overview: last done: 08/27/2019 Unspecified nontoxic nodular goiter 07/08/2005 09/04/2005 documented as of this encounter (statuses as of 09/19/2023) [facility]2018 History of Past illness Narrative* Problem Noted Date Diagnosed Date Resolved Date Well adult exam 08/27/2018 03/25/2020 Overview: last done: 08/27/2019 Unspecified nontoxic nodular goiter 07/08/2005 09/04/2005 documented as of this encounter (statuses as of 10/17/2023) [place] [address]-01-2018 History of Past illness Narrative* Problem Noted Date Diagnosed Date Resolved Date Well adult exam 08/27/2018 03/25/2020 Overview: last done: 08/27/2019 Unspecified nontoxic nodular goiter 07/08/2005 09/04/2005 documented as of this encounter (statuses as of 11/02/2023) [place] [address]-01-2018 History of Past illness Narrative* Problem Noted Date Diagnosed Date Resolved Date Well adult exam 08/27/2018 03/25/2020 Overview: last done: 08/27/2019 Unspecified nontoxic nodular goiter 07/08/2005 09/04/2005 documented as of this encounter (statuses as of 12/01/2023) [address]01-2018 History of Past illness Narrative* Problem Noted Date Diagnosed Date Resolved Date Well adult exam 08/27/2018 03/25/2020 Overview: last done: 08/27/2019 Unspecified nontoxic nodular goiter 07/08/2005 09/04/2005 documented as of this encounter (statuses as of 12/01/2023) [facility]2018 History of Past illness Narrative* Problem Noted Date Diagnosed Date Resolved Date Well adult exam 08/27/2018 03/25/2020 Overview: last done: 08/27/2019 Unspecified nontoxic nodular goiter 07/08/2005 09/04/2005 documented as of this encounter (statuses as of 12/03/2023) [facility]2018 History of Past illness Narrative* Problem Noted Date Diagnosed Date Resolved Date Well adult exam 08/27/2018 03/25/2020 Overview: last done: 08/27/2019 Unspecified nontoxic nodular goiter 07/08/2005 09/04/2005 documented as of this encounter (statuses as of 12/15/2023) [facility]2018 History of Past illness Narrative* Problem Noted Date Diagnosed Date Resolved Date Well adult exam 08/27/2018 03/25/2020 Overview: last done: 08/27/2019 Unspecified nontoxic nodular goiter 07/08/2005 09/04/2005 documented as of this encounter (statuses as of 12/15/2023) [facility]2018 History of Past illness Narrative* Problem Noted Date Diagnosed Date Resolved Date Well adult exam 08/27/2018 03/25/2020 Overview: last done: 08/27/2019 Unspecified nontoxic nodular goiter 07/08/2005 09/04/2005 documented as of this encounter (statuses as of 01/08/2024) [facility] History of Past illness Narrative* Problem Noted Date Diagnosed Date Resolved Date Well adult exam 08/27/2018 03/25/2020 Overview: last done: 08/27/2019 Unspecified nontoxic nodular goiter 07/08/2005 09/04/2005 documented as of this encounter (statuses as of 01/19/2024) [facility] note Author Christina Crowder [facility] Note Date/Time January 18, 2025 11: 34am [facility] Medical Records Department [address] [place] [address] Anesthesia Postop Eval I 01/18/25 1133 MR#: [id number] Acct: [id number] Name: MÓNICA DECKER Rep #:[id number] : 1950 74 From: Christina hinkle CRNA PCP: Dr. Mateo Marmolejo MD Status:REG SDC Y Race: C Location: [place] [address] Anesthesia: Postop Eval I Current Vital Signs Temperature: 97 F Pulse Rate: 60 Blood Pressure: 103/69 Respiratory Rate: 16 Pulse Ox: 98 Oxygen Delivery Method: Room Air Assessment Airway patent: Yes Spontaneous unlabored respirations: Yes Mental status: Awake and Calm nausea: No Vomiting: No Anesthesia Complication: No Fluid Hydration Crystalloid volume administer (ml): 10 Total IV fluid infused: 10 Progress Note Anesthesia document: Postop Eval 1 completed: Yes 01/18/25 1134 <Electronically signed by Christina elmore CRNA> Date _ Christina Crowder CRNA Cosigner Signature: Date CC: ~ Signed [facility] Work Phone: Evaluation note* Diagnosis Medicare annual wellness visit, subsequent- Primary Routine general medical examination at a health care facility Advance directive discussed with patient Other specified counseling Essential hypertension, benign Hyperlipidemia, mixed Mixed hyperlipidemia Elevated hemoglobin A1c Other abnormal blood chemistry Postsurgical hypothyroidism Reactive depression (situational) Adjustment disorder with depressed mood Chronic constipation Unspecified constipation OAB (overactive bladder) Hypertonicity of bladder Obesity, Class II, BMI 35-39.9 Obesity, unspecified Blurred vision, right eye Other specified visual disturbances SANDRA (obstructive sleep apnea) Obstructive sleep apnea (adult) (pediatric) Bilateral impacted cerumen Impacted cerumen Screening for colon cancer Special screening for malignant neoplasms, colon Primary osteoarthritis of both hips Primary localized osteoarthrosis, pelvic region and thigh Primary osteoarthritis of both knees Primary localized osteoarthrosis, lower leg [facility] Hyponatremia- Primary Hyposmolality and/or hyponatremia [facility] Diagnosis Combined forms of age-related cataract of both eyes- Primary Other and combined forms of senile cataract 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 PVD (posterior vitreous detachment), both eyes Vitreous degeneration Dry eye syndrome of bilateral lacrimal glands Tear film insufficiency, unspecified [facility] Combined forms of age-related cataract of both eyes- Primary Other and combined forms of senile cataract 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 PVD (posterior vitreous detachment), both eyes Vitreous degeneration Dry eye syndrome of bilateral lacrimal glands Tear film insufficiency, unspecified [facility] Diagnosis Unintentional weight loss- Primary Loss of weight Screening for colon cancer Special screening for malignant neoplasms, colon Chronic constipation Unspecified constipation [facility] Diagnosis Intertrigo Other specified erythematous condition Urinary incontinence, unspecified type BMI 38.0-38.9,adult Body Mass Index 38.0-38.9, adult [facility] Diagnosis Right hip pain- Primary Pain in joint, pelvic region and thigh Hyperlipidemia, mixed Mixed hyperlipidemia Essential hypertension, benign Primary osteoarthritis of both hips Primary localized osteoarthrosis, pelvic region and thigh Obesity, Class II, BMI 35-39.9 Obesity, unspecified Medication management Encounter for long-term (current) use of other medications [facility] Pain in right hip- Primary Pain in joint, pelvic region and thigh [facility] Hyperlipidemia, mixed Mixed hyperlipidemia [facility] Diagnosis Primary osteoarthritis of right hip- Primary Primary localized osteoarthrosis, pelvic region and thigh Right hip pain Pain in joint, pelvic region and thigh [facility] Diagnosis Presence of right artificial hip joint- Primary Hip joint replacement by other means Primary osteoarthritis of right hip Primary localized osteoarthrosis, pelvic region and thigh [facility] Diagnosis Primary osteoarthritis of right hip- Primary Primary localized osteoarthrosis, pelvic region and thigh Primary osteoarthritis of right hip Primary localized osteoarthrosis, pelvic region and thigh [facility] Diagnosis Encounter for screening mammogram for breast cancer Primary osteoarthritis of right hip Primary localized osteoarthrosis, pelvic region and thigh [facility] Diagnosis Presence of right artificial hip joint Hip joint replacement by other means Primary osteoarthritis of right hip Primary localized osteoarthrosis, pelvic region and thigh [facility] Diagnosis Primary osteoarthritis of both hips- Primary Primary localized osteoarthrosis, pelvic region and thigh Bilateral hip pain Pain in joint, pelvic region and thigh Primary osteoarthritis of right hip Primary localized osteoarthrosis, pelvic region and thigh [facility] Diagnosis Hyperlipidemia, mixed Mixed hyperlipidemia Primary osteoarthritis of right hip Primary localized osteoarthrosis, pelvic region and thigh [facility] Diagnosis Preoperative examination- Primary Preoperative examination, unspecified Other abnormal findings in urine Essential hypertension, benign Postsurgical hypothyroidism Hyperlipidemia, mixed Mixed hyperlipidemia SANDRA (obstructive sleep apnea) Obstructive sleep apnea (adult) (pediatric) OAB (overactive bladder) Hypertonicity of bladder TARANGO (dyspnea on exertion) Other dyspnea and respiratory abnormality Obesity, Class II, BMI 35-39.9 Obesity, unspecified Dermatitis Contact dermatitis and other eczema, due to unspecified cause Primary osteoarthritis of right hip Primary localized osteoarthrosis, pelvic region and thigh [facility] Diagnosis Hyperlipidemia, mixed Mixed hyperlipidemia Primary osteoarthritis of right hip Primary localized osteoarthrosis, pelvic region and thigh [facility] Diagnosis Pain in right hip- Primary Pain in joint, pelvic region and thigh [facility] Diagnosis Status post right hip replacement- Primary Hip joint replacement by other means [facility] Diagnosis Bilateral leg edema- Primary Edema Essential hypertension, benign Post-operative hemoglobin drop Postsurgical hypothyroidism Hyperlipidemia, mixed Mixed hyperlipidemia Elevated hemoglobin A1c Other abnormal blood chemistry Shortness of breath [facility] Diagnosis Status post right hip replacement- Primary Hip joint replacement by other means [facility]* Diagnosis Congestive heart failure, unspecified HF chronicity, unspecified heart failure type (HCC)- Primary Generalized edema Edema Postsurgical hypothyroidism [facility]* Diagnosis Pain in right hip Pain in joint, pelvic region and thigh [facility] Diagnosis Ingrown toenail- Primary 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 Essential hypertension, benign Bilateral leg edema Edema [facility] Diagnosis Postsurgical hypothyroidism- Primary [facility]* Diagnosis Essential hypertension, benign [facility]* Diagnosis Onychomycosis- Primary Dermatophytosis of nail Ingrown toenail Ingrowing nail Pain in toe of left foot Pain in limb Pain in toe of right foot Pain in limb [facility]* Diagnosis Essential hypertension, benign [facility]* Diagnosis Essential hypertension, benign- Primary Bilateral leg edema Edema Encounter for immunization Need for other specified prophylactic vaccination against single bacterial disease [facility] Diagnosis Essential hypertension, benign [facility] Diagnosis Essential hypertension, benign [facility] Diagnosis Primary osteoarthritis of left hip- Primary Primary localized osteoarthrosis, pelvic region and thigh Presence of left artificial hip joint Hip joint replacement by other means [facility]* Diagnosis Essential hypertension, benign [facility] Primary osteoarthritis of left hip- Primary Primary localized osteoarthrosis, pelvic region and thigh Primary osteoarthritis of left hip Primary localized osteoarthrosis, pelvic region and thigh [facility] Diagnosis Encounter for screening mammogram for breast cancer Primary osteoarthritis of left hip Primary localized osteoarthrosis, pelvic region and thigh [facility] Diagnosis Presence of left artificial hip joint Hip joint replacement by other means Primary osteoarthritis of left hip Primary localized osteoarthrosis, pelvic region and thigh [facility] Diagnosis Tinea cruris- Primary Dermatophytosis of groin and perianal area Open wound Open wound(s) (multiple) of unspecified site(s), without mention of complication Primary osteoarthritis of left hip Primary localized osteoarthrosis, pelvic region and thigh [facility] Diagnosis Pre-operative examination- Primary Preoperative examination, unspecified Primary osteoarthritis of left hip Primary localized osteoarthrosis, pelvic region and thigh [facility] Diagnosis Preoperative examination- Primary Preoperative examination, unspecified Primary osteoarthritis of left hip Primary localized osteoarthrosis, pelvic region and thigh [facility] Diagnosis Status post left hip replacement- Primary Hip joint replacement by other means [facility] Diagnosis Postsurgical hypothyroidism- Primary S/P total right hip arthroplasty Essential hypertension, benign [facility] Diagnosis Postsurgical hypothyroidism- Primary [facility] Diagnosis Status post left hip replacement- Primary Hip joint replacement by other means [facility] Diagnosis Preoperative examination- Primary Preoperative examination, unspecified Other abnormal findings in urine Essential hypertension, benign Postsurgical hypothyroidism Hyperlipidemia, mixed Mixed hyperlipidemia SANDRA (obstructive sleep apnea) Obstructive sleep apnea (adult) (pediatric) OAB (overactive bladder) Hypertonicity of bladder TARANGO (dyspnea on exertion) Other dyspnea and respiratory abnormality Obesity, Class II, BMI 35-39.9 Obesity, unspecified Dermatitis Contact dermatitis and other eczema, due to unspecified cause Pre-operative examination- Primary Preoperative examination, unspecified OAB (overactive bladder) Hypertonicity of bladder Urinary frequency Essential hypertension, benign Hyperlipidemia, mixed Mixed hyperlipidemia SANDRA (obstructive sleep apnea) Obstructive sleep apnea (adult) (pediatric) TARANGO (dyspnea on exertion) Other dyspnea and respiratory abnormality Postsurgical hypothyroidism Elevated hemoglobin A1c Other abnormal blood chemistry S/P total right hip arthroplasty Obesity, Class II, BMI 35-39.9 Obesity, unspecified Essential hypertension, benign Bilateral leg edema Edema Hyperlipidemia, mixed Mixed hyperlipidemia Postsurgical hypothyroidism documented in this [facility] Diagnosis Preoperative examination- Primary Preoperative examination, unspecified Other abnormal findings in urine Essential hypertension, benign Postsurgical hypothyroidism Hyperlipidemia, mixed Mixed hyperlipidemia SANDRA (obstructive sleep apnea) Obstructive sleep apnea (adult) (pediatric) OAB (overactive bladder) Hypertonicity of bladder TARANGO (dyspnea on exertion) Other dyspnea and respiratory abnormality Obesity, Class II, BMI 35-39.9 Obesity, unspecified Dermatitis Contact dermatitis and other eczema, due to unspecified cause Pre-operative examination- Primary Preoperative examination, unspecified OAB (overactive bladder) Hypertonicity of bladder Urinary frequency Essential hypertension, benign Hyperlipidemia, mixed Mixed hyperlipidemia SANDRA (obstructive sleep apnea) Obstructive sleep apnea (adult) (pediatric) TARANGO (dyspnea on exertion) Other dyspnea and respiratory abnormality Postsurgical hypothyroidism Elevated hemoglobin A1c Other abnormal blood chemistry S/P total right hip arthroplasty Obesity, Class II, BMI 35-39.9 Obesity, unspecified Essential hypertension, benign- Primary documented in this encounter [facility] Diagnosis Preoperative examination- Primary Preoperative examination, unspecified Other abnormal findings in urine Essential hypertension, benign Postsurgical hypothyroidism Hyperlipidemia, mixed Mixed hyperlipidemia SANDRA (obstructive sleep apnea) Obstructive sleep apnea (adult) (pediatric) OAB (overactive bladder) Hypertonicity of bladder TARANGO (dyspnea on exertion) Other dyspnea and respiratory abnormality Obesity, Class II, BMI 35-39.9 Obesity, unspecified Dermatitis Contact dermatitis and other eczema, due to unspecified cause Pre-operative examination- Primary Preoperative examination, unspecified OAB (overactive bladder) Hypertonicity of bladder Urinary frequency Essential hypertension, benign Hyperlipidemia, mixed Mixed hyperlipidemia SANDRA (obstructive sleep apnea) Obstructive sleep apnea (adult) (pediatric) TARANGO (dyspnea on exertion) Other dyspnea and respiratory abnormality Postsurgical hypothyroidism Elevated hemoglobin A1c Other abnormal blood chemistry S/P total right hip arthroplasty Obesity, Class II, BMI 35-39.9 Obesity, unspecified Essential hypertension, benign- Primary documented in this encounter [facility] note* Diagnosis Preoperative examination- Primary Preoperative examination, unspecified Other abnormal findings in urine Essential hypertension, benign Postsurgical hypothyroidism Hyperlipidemia, mixed Mixed hyperlipidemia SANDRA (obstructive sleep apnea) Obstructive sleep apnea (adult) (pediatric) OAB (overactive bladder) Hypertonicity of bladder TARANGO (dyspnea on exertion) Other dyspnea and respiratory abnormality Obesity, Class II, BMI 35-39.9 Obesity, unspecified Dermatitis Contact dermatitis and other eczema, due to unspecified cause Pre-operative examination- Primary Preoperative examination, unspecified OAB (overactive bladder) Hypertonicity of bladder Urinary frequency Essential hypertension, benign Hyperlipidemia, mixed Mixed hyperlipidemia SANDRA (obstructive sleep apnea) Obstructive sleep apnea (adult) (pediatric) TARANGO (dyspnea on exertion) Other dyspnea and respiratory abnormality Postsurgical hypothyroidism Elevated hemoglobin A1c Other abnormal blood chemistry S/P total right hip arthroplasty Obesity, Class II, BMI 35-39.9 Obesity, unspecified Pain in left hip Pain in joint, pelvic region and thigh [facility] Diagnosis Preoperative examination- Primary Preoperative examination, unspecified Other abnormal findings in urine Essential hypertension, benign Postsurgical hypothyroidism Hyperlipidemia, mixed Mixed hyperlipidemia SANDRA (obstructive sleep apnea) Obstructive sleep apnea (adult) (pediatric) OAB (overactive bladder) Hypertonicity of bladder TARANGO (dyspnea on exertion) Other dyspnea and respiratory abnormality Obesity, Class II, BMI 35-39.9 Obesity, unspecified Dermatitis Contact dermatitis and other eczema, due to unspecified cause Pain in right hip Pain in joint, pelvic region and thigh Pre-operative examination- Primary Preoperative examination, unspecified OAB (overactive bladder) Hypertonicity of bladder Urinary frequency Essential hypertension, benign Hyperlipidemia, mixed Mixed hyperlipidemia SANDRA (obstructive sleep apnea) Obstructive sleep apnea (adult) (pediatric) TARANGO (dyspnea on exertion) Other dyspnea and respiratory abnormality Postsurgical hypothyroidism Elevated hemoglobin A1c Other abnormal blood chemistry S/P total right hip arthroplasty Obesity, Class II, BMI 35-39.9 Obesity, unspecified [facility] Diagnosis Preoperative examination- Primary Preoperative examination, unspecified Other abnormal findings in urine Essential hypertension, benign Postsurgical hypothyroidism Hyperlipidemia, mixed Mixed hyperlipidemia SANDRA (obstructive sleep apnea) Obstructive sleep apnea (adult) (pediatric) OAB (overactive bladder) Hypertonicity of bladder TARANGO (dyspnea on exertion) Other dyspnea and respiratory abnormality Obesity, Class II, BMI 35-39.9 Obesity, unspecified Dermatitis Contact dermatitis and other eczema, due to unspecified cause Pain in right hip Pain in joint, pelvic region and thigh Pre-operative examination- Primary Preoperative examination, unspecified OAB (overactive bladder) Hypertonicity of bladder Urinary frequency Essential hypertension, benign Hyperlipidemia, mixed Mixed hyperlipidemia SANDRA (obstructive sleep apnea) Obstructive sleep apnea (adult) (pediatric) TARANGO (dyspnea on exertion) Other dyspnea and respiratory abnormality Postsurgical hypothyroidism Elevated hemoglobin A1c Other abnormal blood chemistry S/P total right hip arthroplasty Obesity, Class II, BMI 35-39.9 Obesity, unspecified [facility] Diagnosis Preoperative examination- Primary Preoperative examination, unspecified Other abnormal findings in urine Essential hypertension, benign Postsurgical hypothyroidism Hyperlipidemia, mixed Mixed hyperlipidemia SANDRA (obstructive sleep apnea) Obstructive sleep apnea (adult) (pediatric) OAB (overactive bladder) Hypertonicity of bladder TARANGO (dyspnea on exertion) Other dyspnea and respiratory abnormality Obesity, Class II, BMI 35-39.9 Obesity, unspecified Dermatitis Contact dermatitis and other eczema, due to unspecified cause Pre-operative examination- Primary Preoperative examination, unspecified OAB (overactive bladder) Hypertonicity of bladder Urinary frequency Essential hypertension, benign Hyperlipidemia, mixed Mixed hyperlipidemia SANDRA (obstructive sleep apnea) Obstructive sleep apnea (adult) (pediatric) TARANGO (dyspnea on exertion) Other dyspnea and respiratory abnormality Postsurgical hypothyroidism Elevated hemoglobin A1c Other abnormal blood chemistry S/P total right hip arthroplasty Obesity, Class II, BMI 35-39.9 Obesity, unspecified Onychomycosis- Primary Dermatophytosis of nail Pain in toe of left foot Pain in limb Pain in toe of right foot Pain in limb Encounter for immunization Need for other specified prophylactic vaccination against single bacterial disease [facility] Diagnosis Preoperative examination- Primary Preoperative examination, unspecified Other abnormal findings in urine Essential hypertension, benign Postsurgical hypothyroidism Hyperlipidemia, mixed Mixed hyperlipidemia SANDRA (obstructive sleep apnea) Obstructive sleep apnea (adult) (pediatric) OAB (overactive bladder) Hypertonicity of bladder TARANGO (dyspnea on exertion) Other dyspnea and respiratory abnormality Obesity, Class II, BMI 35-39.9 Obesity, unspecified Dermatitis Contact dermatitis and other eczema, due to unspecified cause Pre-operative examination- Primary Preoperative examination, unspecified OAB (overactive bladder) Hypertonicity of bladder Urinary frequency Essential hypertension, benign Hyperlipidemia, mixed Mixed hyperlipidemia SANDRA (obstructive sleep apnea) Obstructive sleep apnea (adult) (pediatric) TARANGO (dyspnea on exertion) Other dyspnea and respiratory abnormality Postsurgical hypothyroidism Elevated hemoglobin A1c Other abnormal blood chemistry S/P total right hip arthroplasty Obesity, Class II, BMI 35-39.9 Obesity, unspecified Medicare annual wellness visit, subsequent- Primary Routine general medical examination at a health care facility Essential hypertension, benign Hyperlipidemia, mixed Mixed hyperlipidemia Postsurgical hypothyroidism Elevated hemoglobin A1c Other abnormal blood chemistry 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 Obesity, Class II, BMI 35-39.9 Obesity, unspecified OAB (overactive bladder) Hypertonicity of bladder Foot callus Corns and callosities Memory difficulties Memory loss Cellulitis of skin Cellulitis and abscess of unspecified site Multiple wounds of skin Blurred vision Other specified visual disturbances Advance directive discussed with patient Other specified counseling Medication management Encounter for long-term (current) use of other medications Screening for depression Encounter for screening examination for other mental health and behavioral disorders Encounter for immunization Need for other specified prophylactic vaccination against single bacterial disease [facility] Diagnosis Preoperative examination- Primary Preoperative examination, unspecified Other abnormal findings in urine Essential hypertension, benign Postsurgical hypothyroidism Hyperlipidemia, mixed Mixed hyperlipidemia SANDRA (obstructive sleep apnea) Obstructive sleep apnea (adult) (pediatric) OAB (overactive bladder) Hypertonicity of bladder TARANGO (dyspnea on exertion) Other dyspnea and respiratory abnormality Obesity, Class II, BMI 35-39.9 Obesity, unspecified Dermatitis Contact dermatitis and other eczema, due to unspecified cause Pre-operative examination- Primary Preoperative examination, unspecified OAB (overactive bladder) Hypertonicity of bladder Urinary frequency Essential hypertension, benign Hyperlipidemia, mixed Mixed hyperlipidemia SANDRA (obstructive sleep apnea) Obstructive sleep apnea (adult) (pediatric) TARANGO (dyspnea on exertion) Other dyspnea and respiratory abnormality Postsurgical hypothyroidism Elevated hemoglobin A1c Other abnormal blood chemistry S/P total right hip arthroplasty Obesity, Class II, BMI 35-39.9 Obesity, unspecified Low vitamin B12 level- Primary Other B-complex deficiencies Postsurgical hypothyroidism Hypokalemia Hypopotassemia Urinary incontinence, unspecified type OAB (overactive bladder) Hypertonicity of bladder [facility] Diagnosis Preoperative examination- Primary Preoperative examination, unspecified Other abnormal findings in urine Essential hypertension, benign Postsurgical hypothyroidism Hyperlipidemia, mixed Mixed hyperlipidemia SANDRA (obstructive sleep apnea) Obstructive sleep apnea (adult) (pediatric) OAB (overactive bladder) Hypertonicity of bladder TARANGO (dyspnea on exertion) Other dyspnea and respiratory abnormality Obesity, Class II, BMI 35-39.9 Obesity, unspecified Dermatitis Contact dermatitis and other eczema, due to unspecified cause Pre-operative examination- Primary Preoperative examination, unspecified OAB (overactive bladder) Hypertonicity of bladder Urinary frequency Essential hypertension, benign Hyperlipidemia, mixed Mixed hyperlipidemia SANDRA (obstructive sleep apnea) Obstructive sleep apnea (adult) (pediatric) TARANGO (dyspnea on exertion) Other dyspnea and respiratory abnormality Postsurgical hypothyroidism Elevated hemoglobin A1c Other abnormal blood chemistry S/P total right hip arthroplasty Obesity, Class II, BMI 35-39.9 Obesity, unspecified Cognitive impairment, mild, so stated- Primary Mild cognitive impairment, so stated Memory difficulties Memory loss Bilateral hearing loss, unspecified hearing loss type Ambulatory dysfunction Difficulty in walking documented in this encounter [facility] note* Diagnosis Preoperative examination- Primary Preoperative examination, unspecified Other abnormal findings in urine Essential hypertension, benign Postsurgical hypothyroidism Hyperlipidemia, mixed Mixed hyperlipidemia SANDRA (obstructive sleep apnea) Obstructive sleep apnea (adult) (pediatric) OAB (overactive bladder) Hypertonicity of bladder TARANGO (dyspnea on exertion) Other dyspnea and respiratory abnormality Obesity, Class II, BMI 35-39.9 Obesity, unspecified Dermatitis Contact dermatitis and other eczema, due to unspecified cause Pre-operative examination- Primary Preoperative examination, unspecified OAB (overactive bladder) Hypertonicity of bladder Urinary frequency Essential hypertension, benign Hyperlipidemia, mixed Mixed hyperlipidemia SANDRA (obstructive sleep apnea) Obstructive sleep apnea (adult) (pediatric) TARANGO (dyspnea on exertion) Other dyspnea and respiratory abnormality Postsurgical hypothyroidism Elevated hemoglobin A1c Other abnormal blood chemistry S/P total right hip arthroplasty Obesity, Class II, BMI 35-39.9 Obesity, unspecified Combined forms of age-related cataract of both eyes- Primary Other and combined forms of senile cataract Posterior vitreous detachment of both eyes Vitreous degeneration 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 note* Diagnosis Pre-operative examination- Primary Preoperative examination, unspecified OAB (overactive bladder) Hypertonicity of bladder Urinary frequency Essential hypertension, benign Hyperlipidemia, mixed Mixed hyperlipidemia SANDRA (obstructive sleep apnea) Obstructive sleep apnea (adult) (pediatric) TARANGO (dyspnea on exertion) Other dyspnea and respiratory abnormality Postsurgical hypothyroidism Elevated hemoglobin A1c Other abnormal blood chemistry S/P total right hip arthroplasty Obesity, Class II, BMI 35-39.9 Obesity, unspecified Primary osteoarthritis of left hip Primary localized osteoarthrosis, pelvic region and thigh * Assessment & Plan Note - Jolanta Dumont APRN.CNP - 04/05/2024 12:22 PM EDT Associated Problem(s): Obesity, Class II, BMI 35-39.9 Assessment: Body mass index is 39.26 kg/m . * Assessment & Plan Note - Jolanta Dumont APRN.CNP - 04/05/2024 12:21 PM EDT Associated Problem(s): S/P total right hip arthroplasty Assessment: hx * Assessment & Plan Note - Jolanta Dumont APRN.CNP - 04/05/2024 12:21 PM EDT Associated Problem(s): Elevated hemoglobin A1c Assessment: hx Hemoglobin A1C (%) Date Value 08/11/2023 5.0 06/20/2021 5.4 * Assessment & Plan Note - Jolanta Dumont APRN.CNP - 04/05/2024 12:21 PM EDT Associated Problem(s): Postsurgical hypothyroidism Assessment: stable on rx * Assessment & Plan Note - Jolanta Dumont APRN.CNP - 04/05/2024 12:21 PM EDT Associated Problem(s): OAB (overactive bladder) Assessment: chronic incontinence, wearing pads, Urine culture pending, pt has open sores in bilateral groins from incontinence. Appt made with PCP's office today to address before surgery 04/21/2024 for COTY * Assessment & Plan Note - Jolanta Dumont APRN.CNP - 04/05/2024 12:20 PM EDT Associated Problem(s): TARANGO (dyspnea on exertion) Assessment: appears chronic due to generalized deconditioning and hip fatigue. Denies sob at rest, CP, palpitations or excessive weight gain. * Assessment & Plan Note - Jolanta Dumont APRN.CNP - 04/05/2024 12:19 PM EDT Associated Problem(s): SANDRA (obstructive sleep apnea) Assessment: s/p uvelectomy * Assessment & Plan Note - Jolanta Dumont APRN.CNP - 04/05/2024 12:19 PM EDT Associated Problem(s): Hyperlipidemia, mixed Assessment: c/w statin * Assessment & Plan Note - Jolanta Dumont APRN.CNP - 04/05/2024 12:18 PM EDT Associated Problem(s): Essential hypertension, benign Assessment: controlled on rx Last 14 BP Last 14 Encounter BP Readings: Date: BP: 04/05/2024 142/70 01/19/2024 130/72 12/15/2023 167/89[recheck with bp machine[ 11/06/2023 187/62 10/16/2023 159/69 09/17/2023 170/92 08/11/2023 162/74 06/25/2023 151/83 06/13/2023 132/74 04/24/2023 90/58 02/07/2023 138/80 01/31/2023 136/80 01/09/2023 118/72 05/30/2022 143/59 [facility] Diagnosis Preoperative examination- Primary Preoperative examination, unspecified Other abnormal findings in urine Essential hypertension, benign Postsurgical hypothyroidism Hyperlipidemia, mixed Mixed hyperlipidemia SANDRA (obstructive sleep apnea) Obstructive sleep apnea (adult) (pediatric) OAB (overactive bladder) Hypertonicity of bladder TARANGO (dyspnea on exertion) Other dyspnea and respiratory abnormality Obesity, Class II, BMI 35-39.9 Obesity, unspecified Dermatitis Contact dermatitis and other eczema, due to unspecified cause Pre-operative examination- Primary Preoperative examination, unspecified OAB (overactive bladder) Hypertonicity of bladder Urinary frequency Essential hypertension, benign Hyperlipidemia, mixed Mixed hyperlipidemia SANDRA (obstructive sleep apnea) Obstructive sleep apnea (adult) (pediatric) TARANGO (dyspnea on exertion) Other dyspnea and respiratory abnormality Postsurgical hypothyroidism Elevated hemoglobin A1c Other abnormal blood chemistry S/P total right hip arthroplasty Obesity, Class II, BMI 35-39.9 Obesity, unspecified Ambulatory dysfunction Difficulty in walking [facility] Diagnosis Preoperative examination- Primary Preoperative examination, unspecified Other abnormal findings in urine Essential hypertension, benign Postsurgical hypothyroidism Hyperlipidemia, mixed Mixed hyperlipidemia SANDRA (obstructive sleep apnea) Obstructive sleep apnea (adult) (pediatric) OAB (overactive bladder) Hypertonicity of bladder TARANGO (dyspnea on exertion) Other dyspnea and respiratory abnormality Obesity, Class II, BMI 35-39.9 Obesity, unspecified Dermatitis Contact dermatitis and other eczema, due to unspecified cause Pre-operative examination- Primary Preoperative examination, unspecified OAB (overactive bladder) Hypertonicity of bladder Urinary frequency Essential hypertension, benign Hyperlipidemia, mixed Mixed hyperlipidemia SANDRA (obstructive sleep apnea) Obstructive sleep apnea (adult) (pediatric) TARANGO (dyspnea on exertion) Other dyspnea and respiratory abnormality Postsurgical hypothyroidism Elevated hemoglobin A1c Other abnormal blood chemistry S/P total right hip arthroplasty Obesity, Class II, BMI 35-39.9 Obesity, unspecified Ambulatory dysfunction- Primary Difficulty in walking documented in this encounter [facility] note* Diagnosis Preoperative examination- Primary Preoperative examination, unspecified Other abnormal findings in urine Essential hypertension, benign Postsurgical hypothyroidism Hyperlipidemia, mixed Mixed hyperlipidemia SANDRA (obstructive sleep apnea) Obstructive sleep apnea (adult) (pediatric) OAB (overactive bladder) Hypertonicity of bladder TARANGO (dyspnea on exertion) Other dyspnea and respiratory abnormality Obesity, Class II, BMI 35-39.9 Obesity, unspecified Dermatitis Contact dermatitis and other eczema, due to unspecified cause Pre-operative examination- Primary Preoperative examination, unspecified OAB (overactive bladder) Hypertonicity of bladder Urinary frequency Essential hypertension, benign Hyperlipidemia, mixed Mixed hyperlipidemia SANDRA (obstructive sleep apnea) Obstructive sleep apnea (adult) (pediatric) TARANGO (dyspnea on exertion) Other dyspnea and respiratory abnormality Postsurgical hypothyroidism Elevated hemoglobin A1c Other abnormal blood chemistry S/P total right hip arthroplasty Obesity, Class II, BMI 35-39.9 Obesity, unspecified Status post left hip replacement- Primary Hip joint replacement by other means Status post right hip replacement Hip joint replacement by other means [facility] Diagnosis Preoperative examination- Primary Preoperative examination, unspecified Other abnormal findings in urine Essential hypertension, benign Postsurgical hypothyroidism Hyperlipidemia, mixed Mixed hyperlipidemia SANDRA (obstructive sleep apnea) Obstructive sleep apnea (adult) (pediatric) OAB (overactive bladder) Hypertonicity of bladder TARANGO (dyspnea on exertion) Other dyspnea and respiratory abnormality Obesity, Class II, BMI 35-39.9 Obesity, unspecified Dermatitis Contact dermatitis and other eczema, due to unspecified cause Pre-operative examination- Primary Preoperative examination, unspecified OAB (overactive bladder) Hypertonicity of bladder Urinary frequency Essential hypertension, benign Hyperlipidemia, mixed Mixed hyperlipidemia SANDRA (obstructive sleep apnea) Obstructive sleep apnea (adult) (pediatric) TARANGO (dyspnea on exertion) Other dyspnea and respiratory abnormality Postsurgical hypothyroidism Elevated hemoglobin A1c Other abnormal blood chemistry S/P total right hip arthroplasty Obesity, Class II, BMI 35-39.9 Obesity, unspecified Onychomycosis- Primary Dermatophytosis of nail Pain in toe of left foot Pain in limb Pain in toe of right foot Pain in limb [facility] Diagnosis Preoperative examination- Primary Preoperative examination, unspecified Other abnormal findings in urine Essential hypertension, benign Postsurgical hypothyroidism Hyperlipidemia, mixed Mixed hyperlipidemia SANDRA (obstructive sleep apnea) Obstructive sleep apnea (adult) (pediatric) OAB (overactive bladder) Hypertonicity of bladder TARANGO (dyspnea on exertion) Other dyspnea and respiratory abnormality Obesity, Class II, BMI 35-39.9 Obesity, unspecified Dermatitis Contact dermatitis and other eczema, due to unspecified cause Pre-operative examination- Primary Preoperative examination, unspecified OAB (overactive bladder) Hypertonicity of bladder Urinary frequency Essential hypertension, benign Hyperlipidemia, mixed Mixed hyperlipidemia SANDRA (obstructive sleep apnea) Obstructive sleep apnea (adult) (pediatric) TARANGO (dyspnea on exertion) Other dyspnea and respiratory abnormality Postsurgical hypothyroidism Elevated hemoglobin A1c Other abnormal blood chemistry S/P total right hip arthroplasty Obesity, Class II, BMI 35-39.9 Obesity, unspecified Panic attack- Primary Panic disorder without agoraphobia Anxiety Anxiety state, unspecified [facility] Diagnosis Preoperative examination- Primary Preoperative examination, unspecified Other abnormal findings in urine Essential hypertension, benign Postsurgical hypothyroidism Hyperlipidemia, mixed Mixed hyperlipidemia SANDRA (obstructive sleep apnea) Obstructive sleep apnea (adult) (pediatric) OAB (overactive bladder) Hypertonicity of bladder TARANGO (dyspnea on exertion) Other dyspnea and respiratory abnormality Obesity, Class II, BMI 35-39.9 Obesity, unspecified Dermatitis Contact dermatitis and other eczema, due to unspecified cause Pre-operative examination- Primary Preoperative examination, unspecified OAB (overactive bladder) Hypertonicity of bladder Urinary frequency Essential hypertension, benign Hyperlipidemia, mixed Mixed hyperlipidemia SANDRA (obstructive sleep apnea) Obstructive sleep apnea (adult) (pediatric) TARANGO (dyspnea on exertion) Other dyspnea and respiratory abnormality Postsurgical hypothyroidism Elevated hemoglobin A1c Other abnormal blood chemistry S/P total right hip arthroplasty Obesity, Class II, BMI 35-39.9 Obesity, unspecified Essential hypertension, benign Bilateral leg edema Edema Hyperlipidemia, mixed Mixed hyperlipidemia [facility] Diagnosis Preoperative examination- Primary Preoperative examination, unspecified Other abnormal findings in urine Essential hypertension, benign Postsurgical hypothyroidism Hyperlipidemia, mixed Mixed hyperlipidemia SANDRA (obstructive sleep apnea) Obstructive sleep apnea (adult) (pediatric) OAB (overactive bladder) Hypertonicity of bladder TARANGO (dyspnea on exertion) Other dyspnea and respiratory abnormality Obesity, Class II, BMI 35-39.9 Obesity, unspecified Dermatitis Contact dermatitis and other eczema, due to unspecified cause Pre-operative examination- Primary Preoperative examination, unspecified OAB (overactive bladder) Hypertonicity of bladder Urinary frequency Essential hypertension, benign Hyperlipidemia, mixed Mixed hyperlipidemia SANDRA (obstructive sleep apnea) Obstructive sleep apnea (adult) (pediatric) TARANGO (dyspnea on exertion) Other dyspnea and respiratory abnormality Postsurgical hypothyroidism Elevated hemoglobin A1c Other abnormal blood chemistry S/P total right hip arthroplasty Obesity, Class II, BMI 35-39.9 Obesity, unspecified Skin infection- Primary Unspecified local infection of skin and subcutaneous tissue [facility] Diagnosis Preoperative examination- Primary Preoperative examination, unspecified Other abnormal findings in urine Essential hypertension, benign Postsurgical hypothyroidism Hyperlipidemia, mixed Mixed hyperlipidemia SANDRA (obstructive sleep apnea) Obstructive sleep apnea (adult) (pediatric) OAB (overactive bladder) Hypertonicity of bladder TARANGO (dyspnea on exertion) Other dyspnea and respiratory abnormality Obesity, Class II, BMI 35-39.9 Obesity, unspecified Dermatitis Contact dermatitis and other eczema, due to unspecified cause Pre-operative examination- Primary Preoperative examination, unspecified OAB (overactive bladder) Hypertonicity of bladder Urinary frequency Essential hypertension, benign Hyperlipidemia, mixed Mixed hyperlipidemia SANDRA (obstructive sleep apnea) Obstructive sleep apnea (adult) (pediatric) TARANGO (dyspnea on exertion) Other dyspnea and respiratory abnormality Postsurgical hypothyroidism Elevated hemoglobin A1c Other abnormal blood chemistry S/P total right hip arthroplasty Obesity, Class II, BMI 35-39.9 Obesity, unspecified Cognitive impairment, mild, so stated Mild cognitive impairment, so stated documented in this [facility] Diagnosis Preoperative examination- Primary Preoperative examination, unspecified Other abnormal findings in urine Essential hypertension, benign Postsurgical hypothyroidism Hyperlipidemia, mixed Mixed hyperlipidemia SANDRA (obstructive sleep apnea) Obstructive sleep apnea (adult) (pediatric) OAB (overactive bladder) Hypertonicity of bladder TARANGO (dyspnea on exertion) Other dyspnea and respiratory abnormality Obesity, Class II, BMI 35-39.9 Obesity, unspecified Dermatitis Contact dermatitis and other eczema, due to unspecified cause Pre-operative examination- Primary Preoperative examination, unspecified OAB (overactive bladder) Hypertonicity of bladder Urinary frequency Essential hypertension, benign Hyperlipidemia, mixed Mixed hyperlipidemia SANDRA (obstructive sleep apnea) Obstructive sleep apnea (adult) (pediatric) TARANGO (dyspnea on exertion) Other dyspnea and respiratory abnormality Postsurgical hypothyroidism Elevated hemoglobin A1c Other abnormal blood chemistry S/P total right hip arthroplasty Obesity, Class II, BMI 35-39.9 Obesity, unspecified Evaluation of hearing impairment- Primary Other examination of ears and hearing Blurry vision Other specified visual disturbances Mild cognitive impairment Mild cognitive impairment, so stated documented in this encounter [facility] note* Diagnosis Preoperative examination- Primary Preoperative examination, unspecified Other abnormal findings in urine Essential hypertension, benign Postsurgical hypothyroidism Hyperlipidemia, mixed Mixed hyperlipidemia SANDRA (obstructive sleep apnea) Obstructive sleep apnea (adult) (pediatric) OAB (overactive bladder) Hypertonicity of bladder TARANGO (dyspnea on exertion) Other dyspnea and respiratory abnormality Obesity, Class II, BMI 35-39.9 Obesity, unspecified Dermatitis Contact dermatitis and other eczema, due to unspecified cause Pre-operative examination- Primary Preoperative examination, unspecified OAB (overactive bladder) Hypertonicity of bladder Urinary frequency Essential hypertension, benign Hyperlipidemia, mixed Mixed hyperlipidemia SANDRA (obstructive sleep apnea) Obstructive sleep apnea (adult) (pediatric) TARANGO (dyspnea on exertion) Other dyspnea and respiratory abnormality Postsurgical hypothyroidism Elevated hemoglobin A1c Other abnormal blood chemistry S/P total right hip arthroplasty Obesity, Class II, BMI 35-39.9 Obesity, unspecified Encounter for lipid screening for cardiovascular disease- Primary Screening for lipoid disorders Screening for diabetes mellitus Medication management Encounter for long-term (current) use of other medications Vitamin D deficiency Unspecified vitamin D deficiency Subacute cough Cough Preop examination Preoperative examination, unspecified Subacute cough Cough Preop examination Preoperative examination, unspecified documented in this encounter [facility] note* Diagnosis Preoperative examination- Primary Preoperative examination, unspecified Other abnormal findings in urine Essential hypertension, benign Postsurgical hypothyroidism Hyperlipidemia, mixed Mixed hyperlipidemia SANDRA (obstructive sleep apnea) Obstructive sleep apnea (adult) (pediatric) OAB (overactive bladder) Hypertonicity of bladder TARANGO (dyspnea on exertion) Other dyspnea and respiratory abnormality Obesity, Class II, BMI 35-39.9 Obesity, unspecified Dermatitis Contact dermatitis and other eczema, due to unspecified cause Pre-operative examination- Primary Preoperative examination, unspecified OAB (overactive bladder) Hypertonicity of bladder Urinary frequency Essential hypertension, benign Hyperlipidemia, mixed Mixed hyperlipidemia SANDRA (obstructive sleep apnea) Obstructive sleep apnea (adult) (pediatric) TARANGO (dyspnea on exertion) Other dyspnea and respiratory abnormality Postsurgical hypothyroidism Elevated hemoglobin A1c Other abnormal blood chemistry S/P total right hip arthroplasty Obesity, Class II, BMI 35-39.9 Obesity, unspecified Subacute cough Cough Preop examination Preoperative examination, unspecified documented in this encounter [facility] note* Diagnosis Preoperative examination- Primary Preoperative examination, unspecified Other abnormal findings in urine Essential hypertension, benign Postsurgical hypothyroidism Hyperlipidemia, mixed Mixed hyperlipidemia SANDRA (obstructive sleep apnea) Obstructive sleep apnea (adult) (pediatric) OAB (overactive bladder) Hypertonicity of bladder TARANGO (dyspnea on exertion) Other dyspnea and respiratory abnormality Obesity, Class II, BMI 35-39.9 Obesity, unspecified Dermatitis Contact dermatitis and other eczema, due to unspecified cause Pre-operative examination- Primary Preoperative examination, unspecified OAB (overactive bladder) Hypertonicity of bladder Urinary frequency Essential hypertension, benign Hyperlipidemia, mixed Mixed hyperlipidemia SANDRA (obstructive sleep apnea) Obstructive sleep apnea (adult) (pediatric) TARANGO (dyspnea on exertion) Other dyspnea and respiratory abnormality Postsurgical hypothyroidism Elevated hemoglobin A1c Other abnormal blood chemistry S/P total right hip arthroplasty Obesity, Class II, BMI 35-39.9 Obesity, unspecified Onychomycosis- Primary Dermatophytosis of nail Pain in toe of left foot Pain in limb Pain in toe of right foot Pain in limb Ingrown toenail Ingrowing nail [facility] Preoperative examination- Primary Preoperative examination, unspecified Other abnormal findings in urine Essential hypertension, benign Postsurgical hypothyroidism Hyperlipidemia, mixed Mixed hyperlipidemia SANDRA (obstructive sleep apnea) Obstructive sleep apnea (adult) (pediatric) OAB (overactive bladder) Hypertonicity of bladder TARANGO (dyspnea on exertion) Other dyspnea and respiratory abnormality Obesity, Class II, BMI 35-39.9 Obesity, unspecified Dermatitis Contact dermatitis and other eczema, due to unspecified cause Pre-operative examination- Primary Preoperative examination, unspecified OAB (overactive bladder) Hypertonicity of bladder Urinary frequency Essential hypertension, benign Hyperlipidemia, mixed Mixed hyperlipidemia SANDRA (obstructive sleep apnea) Obstructive sleep apnea (adult) (pediatric) TARANGO (dyspnea on exertion) Other dyspnea and respiratory abnormality Postsurgical hypothyroidism Elevated hemoglobin A1c Other abnormal blood chemistry S/P total right hip arthroplasty Obesity, Class II, BMI 35-39.9 Obesity, unspecified Muscle spasms of both lower extremities- Primary [facility] Diagnosis Preoperative examination- Primary Preoperative examination, unspecified Other abnormal findings in urine Essential hypertension, benign Postsurgical hypothyroidism Hyperlipidemia, mixed Mixed hyperlipidemia SANDRA (obstructive sleep apnea) Obstructive sleep apnea (adult) (pediatric) OAB (overactive bladder) Hypertonicity of bladder TARANGO (dyspnea on exertion) Other dyspnea and respiratory abnormality Obesity, Class II, BMI 35-39.9 Obesity, unspecified Dermatitis Contact dermatitis and other eczema, due to unspecified cause Pre-operative examination- Primary Preoperative examination, unspecified OAB (overactive bladder) Hypertonicity of bladder Urinary frequency Essential hypertension, benign Hyperlipidemia, mixed Mixed hyperlipidemia SANDRA (obstructive sleep apnea) Obstructive sleep apnea (adult) (pediatric) TARANGO (dyspnea on exertion) Other dyspnea and respiratory abnormality Postsurgical hypothyroidism Elevated hemoglobin A1c Other abnormal blood chemistry S/P total right hip arthroplasty Obesity, Class II, BMI 35-39.9 Obesity, unspecified Hyponatremia- Primary Hyposmolality and/or hyponatremia Hypomagnesemia Disorders of magnesium metabolism [facility] Diagnosis Preoperative examination- Primary Preoperative examination, unspecified Other abnormal findings in urine Essential hypertension, benign Postsurgical hypothyroidism Hyperlipidemia, mixed Mixed hyperlipidemia SANDRA (obstructive sleep apnea) Obstructive sleep apnea (adult) (pediatric) OAB (overactive bladder) Hypertonicity of bladder TARANGO (dyspnea on exertion) Other dyspnea and respiratory abnormality Obesity, Class II, BMI 35-39.9 Obesity, unspecified Dermatitis Contact dermatitis and other eczema, due to unspecified cause Pre-operative examination- Primary Preoperative examination, unspecified OAB (overactive bladder) Hypertonicity of bladder Urinary frequency Essential hypertension, benign Hyperlipidemia, mixed Mixed hyperlipidemia SANDRA (obstructive sleep apnea) Obstructive sleep apnea (adult) (pediatric) TARANGO (dyspnea on exertion) Other dyspnea and respiratory abnormality Postsurgical hypothyroidism Elevated hemoglobin A1c Other abnormal blood chemistry S/P total right hip arthroplasty Obesity, Class II, BMI 35-39.9 Obesity, unspecified Hyponatremia- Primary Hyposmolality and/or hyponatremia [facility] Diagnosis Preoperative examination- Primary Preoperative examination, unspecified Other abnormal findings in urine Essential hypertension, benign Postsurgical hypothyroidism Hyperlipidemia, mixed Mixed hyperlipidemia SANDRA (obstructive sleep apnea) Obstructive sleep apnea (adult) (pediatric) OAB (overactive bladder) Hypertonicity of bladder TARANGO (dyspnea on exertion) Other dyspnea and respiratory abnormality Obesity, Class II, BMI 35-39.9 Obesity, unspecified Dermatitis Contact dermatitis and other eczema, due to unspecified cause Pre-operative examination- Primary Preoperative examination, unspecified OAB (overactive bladder) Hypertonicity of bladder Urinary frequency Essential hypertension, benign Hyperlipidemia, mixed Mixed hyperlipidemia SANDRA (obstructive sleep apnea) Obstructive sleep apnea (adult) (pediatric) TARANGO (dyspnea on exertion) Other dyspnea and respiratory abnormality Postsurgical hypothyroidism Elevated hemoglobin A1c Other abnormal blood chemistry S/P total right hip arthroplasty Obesity, Class II, BMI 35-39.9 Obesity, unspecified Postsurgical hypothyroidism documented in this [facility] Diagnosis Preoperative examination- Primary Preoperative examination, unspecified Other abnormal findings in urine Essential hypertension, benign Postsurgical hypothyroidism Hyperlipidemia, mixed Mixed hyperlipidemia SANDRA (obstructive sleep apnea) Obstructive sleep apnea (adult) (pediatric) OAB (overactive bladder) Hypertonicity of bladder TARANGO (dyspnea on exertion) Other dyspnea and respiratory abnormality Obesity, Class II, BMI 35-39.9 Obesity, unspecified Dermatitis Contact dermatitis and other eczema, due to unspecified cause Pre-operative examination- Primary Preoperative examination, unspecified OAB (overactive bladder) Hypertonicity of bladder Urinary frequency Essential hypertension, benign Hyperlipidemia, mixed Mixed hyperlipidemia SANDRA (obstructive sleep apnea) Obstructive sleep apnea (adult) (pediatric) TARANGO (dyspnea on exertion) Other dyspnea and respiratory abnormality Postsurgical hypothyroidism Elevated hemoglobin A1c Other abnormal blood chemistry S/P total right hip arthroplasty Obesity, Class II, BMI 35-39.9 Obesity, unspecified Alzheimer's disease (HCC)- Primary Alzheimer's disease Essential hypertension, benign Primary osteoarthritis of both hips Primary localized osteoarthrosis, pelvic region and thigh Hypermagnesemia Disorders of magnesium metabolism Anemia, unspecified type documented in this [facility] Diagnosis Preoperative examination- Primary Preoperative examination, unspecified Other abnormal findings in urine Essential hypertension, benign Postsurgical hypothyroidism Hyperlipidemia, mixed Mixed hyperlipidemia SANDRA (obstructive sleep apnea) Obstructive sleep apnea (adult) (pediatric) OAB (overactive bladder) Hypertonicity of bladder TARANGO (dyspnea on exertion) Other dyspnea and respiratory abnormality Obesity, Class II, BMI 35-39.9 Obesity, unspecified Dermatitis Contact dermatitis and other eczema, due to unspecified cause Pre-operative examination- Primary Preoperative examination, unspecified OAB (overactive bladder) Hypertonicity of bladder Urinary frequency Essential hypertension, benign Hyperlipidemia, mixed Mixed hyperlipidemia SANDRA (obstructive sleep apnea) Obstructive sleep apnea (adult) (pediatric) TARANGO (dyspnea on exertion) Other dyspnea and respiratory abnormality Postsurgical hypothyroidism Elevated hemoglobin A1c Other abnormal blood chemistry S/P total right hip arthroplasty Obesity, Class II, BMI 35-39.9 Obesity, unspecified Onychomycosis- Primary Dermatophytosis of nail Pain in toe of left foot Pain in limb Pain in toe of right foot Pain in limb [facility] Diagnosis Preoperative examination- Primary Preoperative examination, unspecified Other abnormal findings in urine Essential hypertension, benign Postsurgical hypothyroidism Hyperlipidemia, mixed Mixed hyperlipidemia SANDRA (obstructive sleep apnea) Obstructive sleep apnea (adult) (pediatric) OAB (overactive bladder) Hypertonicity of bladder TARANGO (dyspnea on exertion) Other dyspnea and respiratory abnormality Obesity, Class II, BMI 35-39.9 Obesity, unspecified Dermatitis Contact dermatitis and other eczema, due to unspecified cause Pre-operative examination- Primary Preoperative examination, unspecified OAB (overactive bladder) Hypertonicity of bladder Urinary frequency Essential hypertension, benign Hyperlipidemia, mixed Mixed hyperlipidemia SANDRA (obstructive sleep apnea) Obstructive sleep apnea (adult) (pediatric) TARANGO (dyspnea on exertion) Other dyspnea and respiratory abnormality Postsurgical hypothyroidism Elevated hemoglobin A1c Other abnormal blood chemistry S/P total right hip arthroplasty Obesity, Class II, BMI 35-39.9 Obesity, unspecified OPENED IN ERROR- Primary To allow closing an encounter opened in error (used in SmartSet) documented in this [facility] Diagnosis Preoperative examination- Primary Preoperative examination, unspecified Other abnormal findings in urine Essential hypertension, benign Postsurgical hypothyroidism Hyperlipidemia, mixed Mixed hyperlipidemia SANDRA (obstructive sleep apnea) Obstructive sleep apnea (adult) (pediatric) OAB (overactive bladder) Hypertonicity of bladder TARANGO (dyspnea on exertion) Other dyspnea and respiratory abnormality Obesity, Class II, BMI 35-39.9 Obesity, unspecified Dermatitis Contact dermatitis and other eczema, due to unspecified cause Pre-operative examination- Primary Preoperative examination, unspecified OAB (overactive bladder) Hypertonicity of bladder Urinary frequency Essential hypertension, benign Hyperlipidemia, mixed Mixed hyperlipidemia SANDRA (obstructive sleep apnea) Obstructive sleep apnea (adult) (pediatric) TARANGO (dyspnea on exertion) Other dyspnea and respiratory abnormality Postsurgical hypothyroidism Elevated hemoglobin A1c Other abnormal blood chemistry S/P total right hip arthroplasty Obesity, Class II, BMI 35-39.9 Obesity, unspecified Essential hypertension, benign Bilateral leg edema Edema Hyperlipidemia, mixed Mixed hyperlipidemia documented in this encounter [facility] note* Diagnosis Preoperative examination- Primary Preoperative examination, unspecified Other abnormal findings in urine Essential hypertension, benign Postsurgical hypothyroidism Hyperlipidemia, mixed Mixed hyperlipidemia SANDRA (obstructive sleep apnea) Obstructive sleep apnea (adult) (pediatric) OAB (overactive bladder) Hypertonicity of bladder TARANGO (dyspnea on exertion) Other dyspnea and respiratory abnormality Obesity, Class II, BMI 35-39.9 Obesity, unspecified Dermatitis Contact dermatitis and other eczema, due to unspecified cause Pre-operative examination- Primary Preoperative examination, unspecified OAB (overactive bladder) Hypertonicity of bladder Urinary frequency Essential hypertension, benign Hyperlipidemia, mixed Mixed hyperlipidemia SANDRA (obstructive sleep apnea) Obstructive sleep apnea (adult) (pediatric) TARANGO (dyspnea on exertion) Other dyspnea and respiratory abnormality Postsurgical hypothyroidism Elevated hemoglobin A1c Other abnormal blood chemistry S/P total right hip arthroplasty Obesity, Class II, BMI 35-39.9 Obesity, unspecified Onychomycosis- Primary Dermatophytosis of nail Pain in toe of left foot Pain in limb Pain in toe of right foot Pain in limb Ingrown toenail Ingrowing nail documented in this encounter [facility] note* Diagnosis Preoperative examination- Primary Preoperative examination, unspecified Other abnormal findings in urine Essential hypertension, benign Postsurgical hypothyroidism Hyperlipidemia, mixed Mixed hyperlipidemia SANDRA (obstructive sleep apnea) Obstructive sleep apnea (adult) (pediatric) OAB (overactive bladder) Hypertonicity of bladder TARANGO (dyspnea on exertion) Other dyspnea and respiratory abnormality Obesity, Class II, BMI 35-39.9 Obesity, unspecified Dermatitis Contact dermatitis and other eczema, due to unspecified cause Pre-operative examination- Primary Preoperative examination, unspecified OAB (overactive bladder) Hypertonicity of bladder Urinary frequency Essential hypertension, benign Hyperlipidemia, mixed Mixed hyperlipidemia SANDRA (obstructive sleep apnea) Obstructive sleep apnea (adult) (pediatric) TARANGO (dyspnea on exertion) Other dyspnea and respiratory abnormality Postsurgical hypothyroidism Elevated hemoglobin A1c Other abnormal blood chemistry S/P total right hip arthroplasty Obesity, Class II, BMI 35-39.9 Obesity, unspecified Mild cognitive impairment- Primary Mild cognitive impairment, so stated Hidradenitis suppurativa Hidradenitis Hyperlipidemia, mixed Mixed hyperlipidemia Essential hypertension, benign Tinnitus of both ears Unspecified tinnitus documented in this encounter [facility] for referral (narrative)* Outpatient Procedure (Routine) - Pending Review Specialty Diagnoses / Procedures Referred By Mynor watson Referred To Contact [facility] Diagnoses Screening for colon cancer Unintentional weight loss Procedures COLONOSCOPY SCREENING COLONOSCOPY FLX DX W/COLLJ SPEC WHEN Fatimah Craven APRN.CNP [address] [place] [address] [facility] [address] [place] [address] Referral ID Status Reason Start Date Expiration Date Visits Requested Visits Authorized [id number] Pending Review Auto-Generat ed Referral 05/07/2022 05/07/2023 1 1 [facility] for referral (narrative)* Diagnostic Procedure Only (Routine) - Pending Review Specialty Diagnoses / Procedures Referred By Mynor watson Referred To Contact XR IMAGING Diagnoses Pain in right hip Procedures XR HIP GENERAL 3V PELV/AP/LAT RIGHT RADEX HIP UNILATERAL WITH PELVIS 2-3 VIEWS Jose Luis Kirk MD [address] [place] [address] Xr Imaging Referral ID Status Reason Start Date Expiration Date Visits Requested Visits Authorized [id number] Pending Review Auto-Generat ed Referral 02/18/2023 03/19/2024 1 1 [facility] for referral (narrative)* Diagnostic Procedure Only (Routine) - Pending Review Specialty Diagnoses / Procedures Referred By Ekaterinaac t Referred To Contact [facility] Diagnoses Encounter for screening mammogram for breast cancer Procedures ISABEL SCREENING SCREENING MAMMOGRAPHY BI 2-VIEW BREAST INC CAD Mateo Marmolejo MD [address] [place] [address] [facility] [address] [place] [address] Referral ID Status Reason Start Date Expiration Date Visits Requested Visits Authorized [id number] Pending Review Auto-Generat ed Referral 04/23/2023 05/22/2024 1 1 [facility] for referral (narrative)* Outpatient Procedure (Routine) - Closed Specialty Diagnoses / Procedures Referred By Mynor watson [facility] Diagnoses Preoperative examination Procedures ECG COMPLETE ECG ROUTINE ECG W/LEAST 12 LDS W/I&R Hardeep Elizalde PA-C [address] [place] [address] [facility] Vascular [address] [address] Referral ID Status Reason Start Date Expiration Date V isits Requested Visits Authorized [id number] Closed Auto-Generate d Referral 06/13/2023 06/10/2024 1 1 T [facility] for referral (narrative)* Diagnostic Procedure Only (Routine) - Pending Review Specialty Diagnoses / Procedures Referred By Mynor t Referred To Contact XR IMAGING Diagnoses Pain in right hip Procedures XR HIP 2V AP/LAT RIGHT (AK,FL,ME) RADEX HIP UNILATERAL WITH PELVIS 2-3 VIEWS Herminio Lara APRN.FINISHING TUNNEL OPERATOR [address] [facility], [address] [place] [id number] Xr Imaging [id number] Referral ID Status Reason Start Date Expiration Date Visits Requested Visits Authorized [id number] Pending Review Auto-Generat ed Referral 07/01/2023 07/26/2024 1 1 [facility] for referral (narrative)* Outpatient Procedure (Routine) - Authorized Specialty Diagnoses / Procedures [facility] Diagnoses Congestive heart failure, unspecified HF chronicity, unspecified heart failure type (HCC) Generalized edema Procedures ECHO ECHO TTHRC R-T 2D W/WOM-MODE COMPL SPEC&COLR D Mateo Marmolejo MD [address] [place] [address] [facility] [place] [address] [place] [id number] Referral ID Status Reason Start Date Expiration Date Visits Requested Visits Authorized [id number] Authorized Auto-Generat ed Referral 08/11/2024 1 1 [facility] for referral (narrative)* Diagnostic Procedure Only (Routine) - Closed Specialty Diagnoses / Procedures [facility] Referred To Contact [facility] IM[facility] Diagnoses Pain in right hip Procedures XR HIP GENERAL 3V PELV/AP/LAT RIGHT RADEX HIP UNILATERAL WITH PELVIS 2-3 VIEWS Jose Luis Kirk MD [address] [facility] [place] [address] Xr Imaging [id number] Referral ID Status Reason Start Date Expiration Date V isits Requested Visits Authorized [id number] Closed Auto-Generate d Referral 02/18/2023 03/19/2024 1 1 [facility] for referral (narrative)* Diagnostic Procedure Only (Routine) - Pending Review Specialty Diagnoses / Procedures Referred By Mynor t Referred To Contact [facility] Diagnoses Encounter for screening mammogram for breast cancer Procedures ISABEL SCREENING SCREENING MAMMOGRAPHY BI 2-VIEW BREAST INC CAD Mateo Marmolejo MD [address] [place] [address] [facility] Imaging [address] [place] [address] Referral ID Status Reason Start Date Expiration Date Visits Requested Visits Authorized [id number] Pending Review Auto-Generat ed Referral 03/24/2024 04/23/2025 1 1 [facility] for referral (narrative)* Diagnostic Procedure Only (Routine) - Closed Specialty Diagnoses / Procedures Referred By Contac t Referred To Contact XR IMAGING Diagnoses Pain in left hip Procedures XR HIP 2V AP/LAT LEFT (AK,FL,ME,UN) RADEX HIP UNILATERAL WITH PELVIS 2-3 VIEWS Julio Cesar Deluna MD [address] [place] [address] [place] [address] Referral ID Status Reason Start Date Expiration Date V isits Requested Visits Authorized [id number] Closed Auto-Generate d Referral 04/26/2024 05/26/2025 1 1 [facility] for referral (narrative)* Diagnostic Procedure Only (Routine) - Closed Specialty Diagnoses / Procedures Referred By Contac t Referred To Contact XR IMAGING Diagnoses Pain in right hip Procedures XR HIP 2V AP/LAT RIGHT (AK,FL,ME,UN) RADEX HIP UNILATERAL WITH PELVIS 2-3 VIEWS Herminio Lara APRN.CNP [address] [place] [address] [place] [address] Referral ID Status Reason Start Date Expiration Date V isits Requested Visits Authorized [id number] Closed Auto-Generate d Referral 01/19/2024 02/17/2025 1 1 [facility] for referral (narrative)* Diagnostic Procedure Only (Routine) - Closed Specialty Diagnoses / Procedures Referred By Contac t Referred To Contact XR IMAGING Diagnoses Pain in right hip Procedures XR HIP 2V AP/LAT RIGHT (AK,FL,ME) RADEX HIP UNILATERAL WITH PELVIS 2-3 VIEWS Herminio Lara APRN.CNP [address] [address] [place] [address] Referral ID Status Reason Start Date Expiration Date V isits Requested Visits Authorized [id number] Closed Auto-Generate d Referral 07/01/2023 07/26/2024 1 1 [facility] for referral (narrative)No reason for referral information [facility] Work Phone: Reason for visit Narrative* Diagnostic Procedure Only (Routine) - Closed Specialty Diagnoses / Procedures Referred By Contac t Referred To Contact XR IMAGING Diagnoses Pain in right hip Procedures XR HIP GENERAL 3V PELV/AP/LAT RIGHT RADEX HIP UNILATERAL WITH PELVIS 2-3 VIEWS Jose Lius Kirk MD [address] [place] [address] [place] [address] Referral ID Status Reason Start Date Expiration Date V isits Requested Visits Authorized [id number] Closed Auto-Generate d Referral 02/18/2023 03/19/2024 1 1 [facility] for visit Narrative* Diagnostic Procedure Only (Routine) - Closed Specialty Diagnoses / Procedures Referred By Contac t Referred To Contact XR IMAGING Diagnoses Pain in left hip Procedures XR HIP 2V AP/LAT LEFT (AK,FL,ME,UN) RADEX HIP UNILATERAL WITH PELVIS 2-3 VIEWS Julio Cesar Deluna MD [address] [address] [place] [address] Referral ID Status Reason Start Date Expiration Date V isits Requested Visits Authorized [id number] Closed Auto-Generate d Referral 04/26/2024 05/26/2025 1 1 [facility] for visit Narrative* Diagnostic Procedure Only (Routine) - Closed Specialty Diagnoses / Procedures Referred By Contac t Referred To Contact XR IMAGING Diagnoses Pain in right hip Procedures XR HIP 2V AP/LAT RIGHT (AK,FL,ME,UN) RADEX HIP UNILATERAL WITH PELVIS 2-3 VIEWS Herminio Lara, REAL ESTATE DEVELOPER.[employer] [address] [address] [place] [address] Referral ID Status Reason Start Date Expiration Date V isits Requested Visits Authorized [id number] Closed Auto-Generate d Referral 01/19/2024 02/17/2025 1 1 [facility] for visit Narrative* Diagnostic Procedure Only (Routine) - Closed Specialty Diagnoses / Procedures Referred By Contac t Referred To Contact XR IMAGING Diagnoses Pain in right hip Procedures XR HIP 2V AP/LAT RIGHT (AK,FL,ME) RADEX HIP UNILATERAL WITH PELVIS 2-3 VIEWS Herminio Lara, SUZY.[employer] [address] [address] [place] [address] Referral ID Status Reason Start Date Expiration Date V isits Requested Visits Authorized [id number] Closed Auto-Generate d Referral 07/01/2023 07/26/2024 1 1 [facility] for visit Narrative* MRI/CT (Routine) - Closed Specialty Diagnoses / Procedures Referred By Contac t Referred To Contact MR IMAGING Diagnoses Cognitive impairment, mild, so stated Procedures MRI BRAIN W QUANT WO IVCON MRI BRAIN BRAIN STEM W/O CONTRAST MATERIAL Sarah Ying MD [address] [place] [address] Phone: tel: fax: [place] [address] Referral ID Status Reason Start Date Expiration Date V isits Requested Visits Authorized [id number] Closed Auto-Generate d Referral 08/11/2024 09/10/2025 1 1 [facility] Reason for Referral Specialty Diagnoses / Procedures Referred By Contac t Referred To Contact General Surgery Diagnoses Screening for colon cancer Chronic constipation Procedures CONSULT TO GENERAL SURGERY OFFICE/OUTPATIENT [facility] 60-74 MINUTES Alida Jaeger PA-C [address] [place] [address] Referral ID Status Reason Start Date Expiration Date Visits Requested Visits Authorized [id number] Authorized PCP Requested Referral 02/14/2022 02/14/2023 1 1 Specialty Diagnoses / Procedures Referred By Contac t Referred To Contact Ophthalmology Diagnoses Blurred vision, right eye Procedures CONSULT TO OPHTHALMOLOGY OFFICE/OUTPATIENT [facility] 60-74 MINUTES Alida Jaeger PA-C [address] [place] [address] Referral ID Status Reason Start Date Expiration Date Visits Requested Visits Authorized [id number] Authorized PCP Requested Referral 02/14/2022 02/14/2023 1 1 Specialty Diagnoses / Procedures Referred By Contac t Referred To Contact Orthopedics Diagnoses Right hip pain Procedures CONSULT TO ORTHOPAEDICS OFFICE/OUTPATIENT [facility] 60-74 MINUTES Ramiro Dominguez APRN.FINISHING TUNNEL OPERATOR [address] [place] [address] Referral ID Status Reason Start Date Expiration Date Visits Requested Visits Authorized [id number] Authorized PCP Requested Referral 02/07/2023 02/07/2024 1 1 Specialty Diagnoses / Procedures Referred By Contac t Referred To Contact CT IMAGING Diagnoses Presence of right artificial hip joint Procedures CT HIP WO IVCON RIGHT CT LOWER EXTREMITY W/O CONTRAST MATERIAL Julio Cesar Deluna MD [address] [address] [address] Referral ID Status Reason Start Date Expiration Date Visits Requested Visits Authorized [id number] Authorized Auto-Generat ed Referral 04/10/2023 05/09/2024 1 1 Referral ID Status Reason Start Date Expiration Date V isits Requested Visits Authorized [id number] Closed Auto-Generate d Referral 04/10/2023 05/09/2024 1 1 Specialty Diagnoses / Procedures Referred By Contac t Referred To Contact Podiatry Diagnoses Ingrown toenail Procedures CONSULT TO PODIATRY OFFICE/OUTPATIENT [facility] 60-74 MINUTES Ramiro Dominguez APRN.FINISHING TUNNEL OPERATOR [address] [place] [address] Referral ID Status Reason Start Date Expiration Date Visits Requested Visits Authorized [id number] Authorized PCP Requested Referral 3 09/16/2024 1 1 Specialty Diagnoses / Procedures Referred By Contac t Referred To Contact CT IMAGING Diagnoses Presence of left artificial hip joint Procedures CT HIP WO IVCON LEFT CT LOWER EXTREMITY W/O CONTRAST MATERIAL Julio Cesar Deluna MD [address] [address] [place] [address] Referral ID Status Reason Start Date Expiration Date Visits Requested Visits Authorized [id number] Pending Review Auto-Generat ed Referral 02/17/2024 03/18/2025 1 1 Referral ID Status Reason Start Date Expiration Date V isits Requested Visits Authorized [id number] Closed Auto-Generate d Referral 02/17/2024 03/18/2025 1 1 Specialty Diagnoses / Procedures Referred By Contac t Referred To Contact Alida Jaeger PA-C [address] [place] [address] Referral ID Status Reason Start Date Expiration Date Visits Re quested Visits Authorized [id number] Closed 1 1 Specialty Diagnoses / Procedures Referred By Contac t Referred To Contact Gerontology Diagnoses Memory difficulties Procedures CONSULT TO GERIATRICS OFFICE/OUTPATIENT [facility] 60 MINUTES Mateo Marmolejo MD [address] [place] [address] Referral ID Status Reason Start Date Expiration Date Visits Requested Visits Authorized [id number] Authorized PCP Requested Referral 07/23/2024 07/23/2025 1 1 Specialty Diagnoses / Procedures Referred By Contac t Referred To Contact Ophthalmology Diagnoses Blurred vision Procedures CONSULT TO OPHTHALMOLOGY OFFICE/OUTPATIENT [facility] 60 MINUTES Mateo Marmolejo MD [address] [place] [address] Referral ID Status Reason Start Date Expiration Date Visits Requested Visits Authorized [id number] Authorized PCP Requested Referral 07/23/2024 07/23/2025 1 1 Specialty Diagnoses / Procedures Referred By Contac t Referred To Contact Urology Diagnoses Urinary incontinence, unspecified type OAB (overactive bladder) Procedures CONSULT TO UROLOGY OFFICE/OUTPATIENT [facility] 60 MINUTES Mateo Marmolejo MD [address] [place] [address] Referral ID Status Reason Start Date Expiration Date Visits Requested Visits Authorized [id number] Authorized PCP Requested Referral 07/28/2024 07/28/2025 1 1 Specialty Diagnoses / Procedures Referred By Contac t Referred To Contact [facility] Diagnoses Ambulatory dysfunction Procedures CONSULT TO PHYSICAL THERAPY PHYSICAL THERAPY EVALUATION HIGH COMPLEX 45 MINS Sarah Ying MD [address] [place] [address] [facility] [address] [place] [address] Referral ID Status Reason Start Date Expiration Date Visits Requested Visits Authorized [id number] Authorized PCP Requested Referral Auto-Generate d Referral 4 08/11/2025 99 99 Specialty Diagnoses / Procedures Referred By Contac t Referred To Contact Diagnoses Bilateral hearing loss, unspecified hearing loss type Procedures HEARING TEST/AUDIOGRAM COMPRE AUDIOMETRY THRESHOLD EVAL SP RECOGNIJ Sarah Ying MD [address] [place], [place] [id number] [facility] [address] [place] [address] Referral ID Status Reason Start Date Expiration Date Visits Requested Visits Authorized [id number] Authorized Auto-Generat ed Referral 4 11/09/2024 1 1 Specialty Diagnoses / Procedures Referred By Contac t Referred To Contact MR IMAGING Diagnoses Cognitive impairment, mild, so stated Procedures MRI 3D POST PROCESSING 3D RENDERING W/INTERP&POSTPROC DIFF WORK STATION Sarah Ying MD [address] [place] [address] [place] [address] Referral ID Status Reason Start Date Expiration Date Visits Requested Visits Authorized [id number] New Request Auto-Generat ed Referral 4 09/10/2025 1 1 Specialty Diagnoses / Procedures Referred By Contac t Referred To Contact MR IMAGING Diagnoses Cognitive impairment, mild, so stated Procedures MRI BRAIN W QUANT WO IVCON MRI BRAIN BRAIN STEM W/O CONTRAST MATERIAL Sarah Ying MD [address] [place] [address] [place] [address] Referral ID Status Reason Start Date Expiration Date Visits Requested Visits Authorized [id number] Authorized Auto-Generat ed Referral 4 09/10/2025 1 1 Advance Directives No Advanced Directives Records FoundDocuments on File Type Date Recorded 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 Advance Directive(s) 03/08/2021 12:23 AM Advance Directive(s) 02/18/2021 6:21 PM Advance Directive(s) 11/09/2018 10:54 AM Advance Directive(s) 03/14/2016 7:59 AM Advance Directive(s) 02/26/2016 2:43 PM Documents on File Type Date Recorded 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 Yes December 03, 2024 7:42pm Name of Medical Power of Stable Attendant sameer December 03, 2024 7:42pm Living Will No January 04, 2025 2:07pm Do you have a Healthcare Power of Stable Attendant? No January 04, 2025 2:07pm Advance Directive Response Recorded Date/ Time Living Will No January 04, 2025 2:07pm Do you have a Healthcare Power of Stable Attendant? No January 04, 2025 2:07pm Medications Administered Section Active Administered Medications - up to 3 most recent administrations Medication Order MAR Action Action Date Dose Rate Site fluorescein-benoxinate 0.25-0.4 % 1 Drop (FLURESS) 1 Drop, BOTH EYES, DIRECTED, Starting on Fri02/15/22 at 1300, Until 02/16/22 at 0059, Administer for applanation tonometry. In the event of a Fluress shortage, administer [place]-Fluor 1 drop into both eyes as directed for applanation tonometry Given 02/15/2022 1:00 PM EDT 1 Drop PHENYLephrine 2.5 % 1 Drop (AK-DILATE, MONICA-SYNEPHRINE) 1 Drop, BOTH EYES, DIRECTED, Starting on Fri02/15/22 at 1300, Until 02/16/22 at 0059, Administer for dilation PROTECT FROM LIGHT Given 02/15/2022 1:00 PM EDT 1 Drop tropicamide 1 % 1 Drop (MYDRIACYL) 1 Drop, BOTH EYES, DIRECTED, Starting on Fri02/15/22 at 1300, Until Fri02/16/22 at 0059, Administer for dilation Given 02/15/2022 1:00 PM EDT 1 Drop Active Administered Medications - up to 3 most recent administrations Medication Order MAR Action Action Date Dose Rate Site fluorescein-benoxinate 0.25-0.4 % 1 Drop (FLURESS) 1 Drop, BOTH EYES, DIRECTED, Starting on Fri03/20/22 at 1130, Until Fri03/20/22 at 2329, Administer for applanation tonometry. In the event of a Fluress shortage, administer [place]-Fluor 1 drop into both eyes as directed for applanation tonometry Given 03/20/2022 11:30 AM EDT 1 Drop PHENYLephrine 2.5 % 1 Drop (AK-DILATE, MONICA-SYNEPHRINE) 1 Drop, BOTH EYES, DIRECTED, Starting on Fri03/20/22 at 1130, Until Fri03/20/22 at 2329, Administer for dilation PROTECT FROM LIGHT Given 03/20/2022 11:30 AM EDT 1 Drop tropicamide 1 % 1 Drop (MYDRIACYL) 1 Drop, BOTH EYES, DIRECTED, Starting on Fri03/20/22 at 1130, Until Fri03/20/22 at 2329, Administer for dilation Given 03/20/2022 11:30 AM EDT 1 Drop Summary Purpose Family History No Family History Records Found Relationship Condition Age at Onset Recorded Date/T ulysses father Malignant neoplasm of colon Unknown mother Hypertension Unknown Family Member Condition Full Brother Stroke/TIA Full Brother Arthritis Full Brother Obesity Full Brother Diabetes - insulin d ependent Father Heart disease Father Mother High blood pressure Mother Arthritis Mother Chief Complaint and Reason for Visit Chief Complaint Admit Date WOUND December 03, 2024 5 :27pm ENDOMETRIAL THICKENING POSS. EMB (ANAY I) December 10, 2024 9:02am Hidradenitis December 30, 2024 2:22 pm PREOP January 06, 2025 11: 06am Hysteroscopy,Dilation and Curettage Ricky clemons 2024 8:15am Hysteroscopy,Dilation and Curettage Ricky clemons 2024 10:18am Reason for Visit Admit Date Postmenopausal bleeding December 10 025 9:02am Thickened endometrium December 10 9:02am Hidradenitis suppurativa December 30, 2024 2:22pm Postmenopausal bleeding January 18, 2025 8:15am Thickened endometrium January 18, 2025 8 :15am Chief Complaint Admit Date WOUND December 03, 2024 5 :27pm ENDOMETRIAL THICKENING POSS. EMB (WYNESK I) December 10, 2024 9:02am Hidradenitis December 30, 2024 2:22 pm PREOP January 06, 2025 11: 06am Hysteroscopy,Dilation and Curettage Ricky h 2024 8:15am Hysteroscopy,Dilation and Curettage Ricky h 2024 10:18am 2 wk D&C January 31, 2025 9:15 am FOLLOW UP April 01, 2025 10:12 am Reason for Visit Admit Date Postmenopausal bleeding December 10 025 9:02am Thickened endometrium December 10 9:02am Hidradenitis suppurativa December 30, 2024 2:22pm Postmenopausal bleeding January 18, 2025 8:15am Thickened endometrium January 18, 2025 8 :15am Postmenopausal bleeding January 31, 2025 9:15am Thickened endometrium January 31, 2025 9: 15am Chief Complaint Admit Date Hidradenitis December 30, 2024 2:22 pm PREOP January 06, 2025 11: 06am Hysteroscopy,Dilation and Curettage Ricky h 2024 8:15am Hysteroscopy,Dilation and Curettage Ricky h 2024 10:18am 2 wk D&C January 31, 2025 9:15 am FOLLOW UP April 01, 2025 10:12 am wound April 12, 2025 10:0 9am SCREENING April 18, 2025 8:14 am wound April 18, 2025 9:15 am wound April 18, 2025 1:19 pm Possible Bartholin Cyst *[facility] [place] 2024 2:51pm Reason for Visit Admit Date Hidradenitis suppurativa December 30, 2024 2:22pm Postmenopausal bleeding January 18, 2025 8:15am Thickened endometrium January 18, 2025 8 :15am Postmenopausal bleeding January 31, 2025 9:15am Thickened endometrium January 31, 2025 9: 15am Hidradenitis suppurativa April 01, 2025 10:12am Hidradenitis suppurativa April 18, 2025 9:15am Skin ulcer of right groin with fat layer exposed April 18, 2025 9:15am Ulcer of left groin with fat layer expos ed April 18, 2025 9:15am Reason for Visit Admit Date Hidradenitis suppurativa December 30, 2024 2:22pm Postmenopausal bleeding January 18, 2025 8:15am Thickened endometrium January 18, 2025 8 :15am Postmenopausal bleeding January 31, 2025 9:15am Thickened endometrium January 31, 2025 9: 15am Hidradenitis suppurativa April 01, 2025 10:12am Hidradenitis suppurativa April 18, 2025 9:15am Skin ulcer of right groin with fat layer exposed April 18, 2025 9:15am Ulcer of left groin with fat layer expos ed April 18, 2025 9:15am Vulval cellulitis April 21, 2025 2:51 pm Vulvar abscess April 21, 2025 2:51 pm Chief Complaint Admit Date PREOP January 06, 2025 11: 06am Hysteroscopy,Dilation and Curettage Ricky h 2024 8:15am Hysteroscopy,Dilation and Curettage Ricky h 2024 10:18am 2 wk D&C January 31, 2025 9:15 am FOLLOW UP April 01, 2025 10:12 am wound April 12, 2025 10:0 9am SCREENING April 18, 2025 8:14 am wound April 18, 2025 9:15 am wound April 18, 2025 1:19 pm Possible Bartholin Cyst *[facility] referral Ju ne 2024 2:51pm wound May 02, 2025 9:24a m wound May 02, 2025 11:32 am Reason for Visit Admit Date Postmenopausal bleeding January 18, 2025 8:15am Thickened endometrium January 18, 2025 8 :15am Postmenopausal bleeding January 31, 2025 9:15am Thickened endometrium January 31, 2025 9: 15am Hidradenitis suppurativa April 01, 2025 10:12am Hidradenitis suppurativa April 18, 2025 9:15am Skin ulcer of right groin with fat layer exposed April 18, 2025 9:15am Ulcer of left groin with fat layer expos ed April 18, 2025 9:15am Vulval cellulitis April 21, 2025 2:51 pm Vulvar abscess April 21, 2025 2:51 pm Hidradenitis suppurativa May 02, 2025 9:24am Skin ulcer of right groin with fat layer exposed May 02, 2025 9:24am Ulcer of left groin with fat layer expos ed May 02, 2025 9:24am Chief Complaint Admit Date PREOP January 06, 2025 11: 06am Hysteroscopy,Dilation and Curettage Ricky h 2024 8:15am Hysteroscopy,Dilation and Curettage Ricky h 2024 10:18am 2 wk D&C January 31, 2025 9:15 am FOLLOW UP April 01, 2025 10:12 am wound April 12, 2025 10:0 9am SCREENING April 18, 2025 8:14 am wound April 18, 2025 9:15 am wound April 18, 2025 1:19 pm Possible Bartholin Cyst *[facility] referral Ju ne 2024 2:51pm wound May 02, 2025 9:24a m wound May 02, 2025 11:32 am Introitus hidradenitis, discuss plan Apr 9:25am Chief Complaint Admit Date Hysteroscopy,Dilation and Curettage Ricky h 2024 8:15am Hysteroscopy,Dilation and Curettage Ricky h 2024 10:18am 2 wk D&C January 31, 2025 9:15 am FOLLOW UP April 01, 2025 10:12 am wound April 12, 2025 10:0 9am SCREENING April 18, 2025 8:14 am wound April 18, 2025 9:15 am wound April 18, 2025 1:19 pm Possible Bartholin Cyst *[facility] referral Ju ne 2024 2:51pm wound May 02, 2025 9:24a m wound May 02, 2025 11:32 am Introitus hidradenitis, discuss plan Apr 9:25am Reason for Visit Admit Date Postmenopausal bleeding January 18, 2025 8:15am Thickened endometrium January 18, 2025 8 :15am Postmenopausal bleeding January 31, 2025 9:15am Thickened endometrium January 31, 2025 9: 15am Hidradenitis suppurativa April 01, 2025 10:12am Hidradenitis suppurativa April 18, 2025 9:15am Skin ulcer of right groin with fat layer exposed April 18, 2025 9:15am Ulcer of left groin with fat layer expos ed April 18, 2025 9:15am Vulval cellulitis April 21, 2025 2:51 pm Vulvar abscess April 21, 2025 2:51 pm Hidradenitis suppurativa May 02, 2025 9:24am Skin ulcer of right groin with fat layer exposed May 02, 2025 9:24am Ulcer of left groin with fat layer expos ed May 02, 2025 9:24am Hidradenitis suppurativa May 04, 2025 9:25am Chief Complaint Admit Date 2 wk D&C January 31, 2025 9:15 am FOLLOW UP April 01, 2025 10:12 am wound April 11, 2025 12:0 0pm SCREENING April 18, 2025 8:14 am wound April 18, 2025 9:15 am wound April 18, 2025 1:19 pm Possible Bartholin Cyst *[facility] referral Ju ne 2024 2:51pm wound May 02, 2025 11:32 am Introitus hidradenitis, discuss plan Apr y 2024 9:25am wound May 13, 2025 10:4 5am Reason for Visit Admit Date Postmenopausal bleeding January 31, 2025 9:15am Thickened endometrium January 31, 2025 9: 15am Hidradenitis suppurativa April 01, 2025 10:12am Hidradenitis suppurativa April 18, 2025 9:15am Skin ulcer of right groin with fat layer exposed April 18, 2025 9:15am Ulcer of left groin with fat layer expos ed April 18, 2025 9:15am Vulval cellulitis April 21, 2025 2:51 pm Vulvar abscess April 21, 2025 2:51 pm Hidradenitis suppurativa May 04, 2025 9:25am Hidradenitis suppurativa May 13, 2025 10:45am Obesity May 13, 2025 10:4 5am Skin ulcer of right groin with fat layer exposed May 13, 2025 10:45am Ulcer of left groin with fat layer expos ed May 13, 2025 10:45am HTN (hypertension) May 13, 2025 10:4 5am Hypothyroidism May 13, 2025 10:4 5am Chief Complaint Admit Date FOLLOW UP April 01, 2025 10:12 am wound April 11, 2025 12:0 0pm SCREENING April 18, 2025 8:14 am wound April 18, 2025 9:15 am wound April 18, 2025 1:19 pm Possible Bartholin Cyst *[facility] referral Ju ne 2024 2:51pm wound May 02, 2025 11:32 am Introitus hidradenitis, discuss plan Apr 9:25am wound May 13, 2025 10:4 5am wound June 10, 2025 10 :30am Reason for Visit Admit Date Hidradenitis suppurativa April 01, 2025 10:12am Hidradenitis suppurativa April 18, 2025 9:15am Skin ulcer of right groin with fat layer exposed April 18, 2025 9:15am Ulcer of left groin with fat layer expos ed April 18, 2025 9:15am Vulval cellulitis April 21, 2025 2:51 pm Vulvar abscess April 21, 2025 2:51 pm Hidradenitis suppurativa May 04, 2025 9:25am Hidradenitis suppurativa May 13, 2025 10:45am Obesity May 13, 2025 10:4 5am Skin ulcer of right groin with fat layer exposed May 13, 2025 10:45am Ulcer of left groin with fat layer expos ed May 13, 2025 10:45am HTN (hypertension) May 13, 2025 10:4 5am Hypothyroidism May 13, 2025 10:4 5am Hidradenitis suppurativa June 10 10:30am Obesity June 10, 2025 10 :30am Skin ulcer of right groin with fat layer exposed June 10, 2025 10:30am Ulcer of left groin with fat layer expos ed June 10, 2025 10:30am HTN (hypertension) June 10, 2025 10 :30am Hypothyroidism June 10, 2025 10 :30am Chief Complaint Admit Date FOLLOW UP April 01, 2025 10:12 am wound April 11, 2025 12:0 0pm SCREENING April 18, 2025 8:14 am wound April 18, 2025 9:15 am wound April 18, 2025 1:19 pm Possible Bartholin Cyst *[facility] referral Ju ne 2024 2:51pm wound May 02, 2025 11:32 am Introitus hidradenitis, discuss plan Jason y 2024 9:25am wound May 13, 2025 10:4 5am wound June 10, 2025 10 :30am wound July 08, 2025 8:17am Reason for Visit Admit Date Hidradenitis suppurativa April 01, 2025 10:12am Hidradenitis suppurativa April 18, 2025 9:15am Skin ulcer of right groin with fat layer exposed April 18, 2025 9:15am Ulcer of left groin with fat layer expos ed April 18, 2025 9:15am Vulval cellulitis April 21, 2025 2:51 pm Vulvar abscess April 21, 2025 2:51 pm Hidradenitis suppurativa May 04, 2025 9:25am Hidradenitis suppurativa May 13, 2025 10:45am Obesity May 13, 2025 10:4 5am Skin ulcer of right groin with fat layer exposed May 13, 2025 10:45am Ulcer of left groin with fat layer expos ed May 13, 2025 10:45am HTN (hypertension) May 13, 2025 10:4 5am Hypothyroidism May 13, 2025 10:4 5am Hidradenitis suppurativa June 10 10:30am Obesity June 10, 2025 10 :30am Skin ulcer of right groin with fat layer exposed June 10, 2025 10:30am Ulcer of left groin with fat layer expos ed June 10, 2025 10:30am HTN (hypertension) June 10, 2025 10 :30am Hypothyroidism June 10, 2025 10 :30am Hidradenitis suppurativa July 08, 2025 8:17am Obesity July 08, 2025 8:17am Skin ulcer of right groin with fat layer exposed July 08, 2025 8:17am Ulcer of left groin with fat layer expos ed July 08, 2025 8:17am HTN (hypertension) July 08, 2025 8:17am Hypothyroidism July 08, 2025 8:17am Additional Source Comments Source Comments (unrecognize d section and content) In the event this informatio n is protected by the Federal Confidentiality of Alcohol and Drug Abuse Patient Records regulations: The Federal rules restrict any use of the information to criminally investigate or prosecute any alcohol or drug abuse patient.[facility] the event this information is protected by the Federal Confidentiality of Alcohol and Drug Abuse Patient Records regulations: The Federal rules restrict any use of the information to criminally investigate or prosecute any alcohol or drug abuse patient.[facility] the event this information is protected by the Federal Confidentiality of Alcohol and Drug Abuse Patient Records regulations: The Federal rules restrict any use of the information to criminally investigate or prosecute any alcohol or drug abuse patient.[facility] the event this information is protected by the Federal Confidentiality of Alcohol and Drug Abuse Patient Records regulations: The Federal rules restrict any use of the information to criminally investigate or prosecute any alcohol or drug abuse patient.[facility] the event this information is protected by the Federal Confidentiality of Alcohol and Drug Abuse Patient Records regulations: The Federal rules restrict any use of the information to criminally investigate or prosecute any alcohol or drug abuse patient.[facility] the event this information is protected by the Federal Confidentiality of Alcohol and Drug Abuse Patient Records regulations: The Federal rules restrict any use of the information to criminally investigate or prosecute any alcohol or drug abuse patient.[facility] the event this information is protected by the Federal Confidentiality of Alcohol and Drug Abuse Patient Records regulations: The Federal rules restrict any use of the information to criminally investigate or prosecute any alcohol or drug abuse patient.[facility] HospitalIn the event this information is protected by the Federal Confidentiality of Alcohol and Drug Abuse Patient Records regulations: The Federal rules restrict any use of the information to criminally investigate or prosecute any alcohol or drug abuse patient.[facility] HospitalIn the event this information is protected by the Federal Confidentiality of Alcohol and Drug Abuse Patient Records regulations: The Federal rules restrict any use of the information to criminally investigate or prosecute any alcohol or drug abuse patient.[facility] HospitalIn the event this information is protected by the Federal Confidentiality of Alcohol and Drug Abuse Patient Records regulations: The Federal rules restrict any use of the information to criminally investigate or prosecute any alcohol or drug abuse patient.[facility] HospitalIn the event this information is protected by the Federal Confidentiality of Alcohol and Drug Abuse Patient Records regulations: The Federal rules restrict any use of the information to criminally investigate or prosecute any alcohol or drug abuse patient.[facility] HospitalIn the event this information is protected by the Federal Confidentiality of Alcohol and Drug Abuse Patient Records regulations: The Federal rules restrict any use of the information to criminally investigate or prosecute any alcohol or drug abuse patient.[facility] HospitalIn the event this information is protected by the Federal Confidentiality of Alcohol and Drug Abuse Patient Records regulations: The Federal rules restrict any use of the information to criminally investigate or prosecute any alcohol or drug abuse patient.[facility] HospitalIn the event this information is protected by the Federal Confidentiality of Alcohol and Drug Abuse Patient Records regulations: The Federal rules restrict any use of the information to criminally investigate or prosecute any alcohol or drug abuse patient.[facility] HospitalIn the event this information is protected by the Federal Confidentiality of Alcohol and Drug Abuse Patient Records regulations: The Federal rules restrict any use of the information to criminally investigate or prosecute any alcohol or drug abuse patient.[facility] HospitalIn the event this information is protected by the Federal Confidentiality of Alcohol and Drug Abuse Patient Records regulations: The Federal rules restrict any use of the information to criminally investigate or prosecute any alcohol or drug abuse patient.[facility] HospitalIn the event this information is protected by the Federal Confidentiality of Alcohol and Drug Abuse Patient Records regulations: The Federal rules restrict any use of the information to criminally investigate or prosecute any alcohol or drug abuse patient.[facility] HospitalIn the event this information is protected by the Federal Confidentiality of Alcohol and Drug Abuse Patient Records regulations: The Federal rules restrict any use of the information to criminally investigate or prosecute any alcohol or drug abuse patient.[facility] HospitalIn the event this information is protected by the Federal Confidentiality of Alcohol and Drug Abuse Patient Records regulations: The Federal rules restrict any use of the information to criminally investigate or prosecute any alcohol or drug abuse patient.[facility] HospitalIn the event this information is protected by the Federal Confidentiality of Alcohol and Drug Abuse Patient Records regulations: The Federal rules restrict any use of the information to criminally investigate or prosecute any alcohol or drug abuse patient.[facility] HospitalIn the event this information is protected by the Federal Confidentiality of Alcohol and Drug Abuse Patient Records regulations: The Federal rules restrict any use of the information to criminally investigate or prosecute any alcohol or drug abuse patient.[facility] HospitalIn the event this information is protected by the Federal Confidentiality of Alcohol and Drug Abuse Patient Records regulations: The Federal rules restrict any use of the information to criminally investigate or prosecute any alcohol or drug abuse patient.[facility] HospitalIn the event this information is protected by the Federal Confidentiality of Alcohol and Drug Abuse Patient Records regulations: The Federal rules restrict any use of the information to criminally investigate or prosecute any alcohol or drug abuse patient.[facility] HospitalIn the event this information is protected by the Federal Confidentiality of Alcohol and Drug Abuse Patient Records regulations: The Federal rules restrict any use of the information to criminally investigate or prosecute any alcohol or drug abuse patient.[facility] HospitalIn the event this information is protected by the Federal Confidentiality of Alcohol and Drug Abuse Patient Records regulations: The Federal rules restrict any use of the information to criminally investigate or prosecute any alcohol or drug abuse patient.[facility] HospitalIn the event this information is protected by the Federal Confidentiality of Alcohol and Drug Abuse Patient Records regulations: The Federal rules restrict any use of the information to criminally investigate or prosecute any alcohol or drug abuse patient.[facility] HospitalIn the event this information is protected by the Federal Confidentiality of Alcohol and Drug Abuse Patient Records regulations: The Federal rules restrict any use of the information to criminally investigate or prosecute any alcohol or drug abuse patient.[facility] HospitalIn the event this information is protected by the Federal Confidentiality of Alcohol and Drug Abuse Patient Records regulations: The Federal rules restrict any use of the information to criminally investigate or prosecute any alcohol or drug abuse patient.[facility] HospitalIn the event this information is protected by the Federal Confidentiality of Alcohol and Drug Abuse Patient Records regulations: The Federal rules restrict any use of the information to criminally investigate or prosecute any alcohol or drug abuse patient.[facility] HospitalIn the event this information is protected by the Federal Confidentiality of Alcohol and Drug Abuse Patient Records regulations: The Federal rules restrict any use of the information to criminally investigate or prosecute any alcohol or drug abuse patient.[facility] HospitalIn the event this information is protected by the Federal Confidentiality of Alcohol and Drug Abuse Patient Records regulations: The Federal rules restrict any use of the information to criminally investigate or prosecute any alcohol or drug abuse patient.[facility] HospitalIn the event this information is protected by the Federal Confidentiality of Alcohol and Drug Abuse Patient Records regulations: The Federal rules restrict any use of the information to criminally investigate or prosecute any alcohol or drug abuse patient.[facility] HospitalIn the event this information is protected by the Federal Confidentiality of Alcohol and Drug Abuse Patient Records regulations: The Federal rules restrict any use of the information to criminally investigate or prosecute any alcohol or drug abuse patient.[facility] HospitalIn the event this information is protected by the Federal Confidentiality of Alcohol and Drug Abuse Patient Records regulations: The Federal rules restrict any use of the information to criminally investigate or prosecute any alcohol or drug abuse patient.[facility] HospitalIn the event this information is protected by the Federal Confidentiality of Alcohol and Drug Abuse Patient Records regulations: The Federal rules restrict any use of the information to criminally investigate or prosecute any alcohol or drug abuse patient.[facility] HospitalIn the event this information is protected by the Federal Confidentiality of Alcohol and Drug Abuse Patient Records regulations: The Federal rules restrict any use of the information to criminally investigate or prosecute any alcohol or drug abuse patient.[facility] HospitalIn the event this information is protected by the Federal Confidentiality of Alcohol and Drug Abuse Patient Records regulations: The Federal rules restrict any use of the information to criminally investigate or prosecute any alcohol or drug abuse patient.[facility] HospitalIn the event this information is protected by the Federal Confidentiality of Alcohol and Drug Abuse Patient Records regulations: The Federal rules restrict any use of the information to criminally investigate or prosecute any alcohol or drug abuse patient.[facility] HospitalIn the event this information is protected by the Federal Confidentiality of Alcohol and Drug Abuse Patient Records regulations: The Federal rules restrict any use of the information to criminally investigate or prosecute any alcohol or drug abuse patient.[facility] HospitalIn the event this information is protected by the Federal Confidentiality of Alcohol and Drug Abuse Patient Records regulations: The Federal rules restrict any use of the information to criminally investigate or prosecute any alcohol or drug abuse patient.[facility] HospitalIn the event this information is protected by the Federal Confidentiality of Alcohol and Drug Abuse Patient Records regulations: The Federal rules restrict any use of the information to criminally investigate or prosecute any alcohol or drug abuse patient.[facility] HospitalIn the event this information is protected by the Federal Confidentiality of Alcohol and Drug Abuse Patient Records regulations: The Federal rules restrict any use of the information to criminally investigate or prosecute any alcohol or drug abuse patient.[facility] HospitalIn the event this information is protected by the Federal Confidentiality of Alcohol and Drug Abuse Patient Records regulations: The Federal rules restrict any use of the information to criminally investigate or prosecute any alcohol or drug abuse patient.[facility] HospitalIn the event this information is protected by the Federal Confidentiality of Alcohol and Drug Abuse Patient Records regulations: The Federal rules restrict any use of the information to criminally investigate or prosecute any alcohol or drug abuse patient.[facility] HospitalIn the event this information is protected by the Federal Confidentiality of Alcohol and Drug Abuse Patient Records regulations: The Federal rules restrict any use of the information to criminally investigate or prosecute any alcohol or drug abuse patient.[facility] HospitalIn the event this information is protected by the Federal Confidentiality of Alcohol and Drug Abuse Patient Records regulations: The Federal rules restrict any use of the information to criminally investigate or prosecute any alcohol or drug abuse patient.[facility] HospitalIn the event this information is protected by the Federal Confidentiality of Alcohol and Drug Abuse Patient Records regulations: The Federal rules restrict any use of the information to criminally investigate or prosecute any alcohol or drug abuse patient.[facility] HospitalIn the event this information is protected by the Federal Confidentiality of Alcohol and Drug Abuse Patient Records regulations: The Federal rules restrict any use of the information to criminally investigate or prosecute any alcohol or drug abuse patient.[facility] HospitalIn the event this information is protected by the Federal Confidentiality of Alcohol and Drug Abuse Patient Records regulations: The Federal rules restrict any use of the information to criminally investigate or prosecute any alcohol or drug abuse patient.[facility] HospitalIn the event this information is protected by the Federal Confidentiality of Alcohol and Drug Abuse Patient Records regulations: The Federal rules restrict any use of the information to criminally investigate or prosecute any alcohol or drug abuse patient.[facility] HospitalIn the event this information is protected by the Federal Confidentiality of Alcohol and Drug Abuse Patient Records regulations: The Federal rules restrict any use of the information to criminally investigate or prosecute any alcohol or drug abuse patient.[facility] HospitalIn the event this information is protected by the Federal Confidentiality of Alcohol and Drug Abuse Patient Records regulations: The Federal rules restrict any use of the information to criminally investigate or prosecute any alcohol or drug abuse patient.[facility] HospitalIn the event this information is protected by the Federal Confidentiality of Alcohol and Drug Abuse Patient Records regulations: The Federal rules restrict any use of the information to criminally investigate or prosecute any alcohol or drug abuse patient.[facility] HospitalIn the event this information is protected by the Federal Confidentiality of Alcohol and Drug Abuse Patient Records regulations: The Federal rules restrict any use of the information to criminally investigate or prosecute any alcohol or drug abuse patient.[facility] HospitalIn the event this information is protected by the Federal Confidentiality of Alcohol and Drug Abuse Patient Records regulations: The Federal rules restrict any use of the information to criminally investigate or prosecute any alcohol or drug abuse patient.[facility] HospitalIn the event this information is protected by the Federal Confidentiality of Alcohol and Drug Abuse Patient Records regulations: The Federal rules restrict any use of the information to criminally investigate or prosecute any alcohol or drug abuse patient.[facility] HospitalIn the event this information is protected by the Federal Confidentiality of Alcohol and Drug Abuse Patient Records regulations: The Federal rules restrict any use of the information to criminally investigate or prosecute any alcohol or drug abuse patient.[facility] HospitalIn the event this information is protected by the Federal Confidentiality of Alcohol and Drug Abuse Patient Records regulations: The Federal rules restrict any use of the information to criminally investigate or prosecute any alcohol or drug abuse patient.[facility] HospitalIn the event this information is protected by the Federal Confidentiality of Alcohol and Drug Abuse Patient Records regulations: The Federal rules restrict any use of the information to criminally investigate or prosecute any alcohol or drug abuse patient.[facility] HospitalIn the event this information is protected by the Federal Confidentiality of Alcohol and Drug Abuse Patient Records regulations: The Federal rules restrict any use of the information to criminally investigate or prosecute any alcohol or drug abuse patient.[facility] HospitalIn the event this information is protected by the Federal Confidentiality of Alcohol and Drug Abuse Patient Records regulations: The Federal rules restrict any use of the information to criminally investigate or prosecute any alcohol or drug abuse patient.[facility] HospitalIn the event this information is protected by the Federal Confidentiality of Alcohol and Drug Abuse Patient Records regulations: The Federal rules restrict any use of the information to criminally investigate or prosecute any alcohol or drug abuse patient.[facility] HospitalIn the event this information is protected by the Federal Confidentiality of Alcohol and Drug Abuse Patient Records regulations: The Federal rules restrict any use of the information to criminally investigate or prosecute any alcohol or drug abuse patient.[facility] HospitalIn the event this information is protected by the Federal Confidentiality of Alcohol and Drug Abuse Patient Records regulations: The Federal rules restrict any use of the information to criminally investigate or prosecute any alcohol or drug abuse patient.[facility] HospitalIn the event this information is protected by the Federal Confidentiality of Alcohol and Drug Abuse Patient Records regulations: The Federal rules restrict any use of the information to criminally investigate or prosecute any alcohol or drug abuse patient.[facility] HospitalIn the event this information is protected by the Federal Confidentiality of Alcohol and Drug Abuse Patient Records regulations: The Federal rules restrict any use of the information to criminally investigate or prosecute any alcohol or drug abuse patient.[facility] HospitalIn the event this information is protected by the Federal Confidentiality of Alcohol and Drug Abuse Patient Records regulations: The Federal rules restrict any use of the information to criminally investigate or prosecute any alcohol or drug abuse patient.[facility] HospitalIn the event this information is protected by the Federal Confidentiality of Alcohol and Drug Abuse Patient Records regulations: The Federal rules restrict any use of the information to criminally investigate or prosecute any alcohol or drug abuse patient.[facility] HospitalIn the event this information is protected by the Federal Confidentiality of Alcohol and Drug Abuse Patient Records regulations: The Federal rules restrict any use of the information to criminally investigate or prosecute any alcohol or drug abuse patient.[facility] HospitalIn the event this information is protected by the Federal Confidentiality of Alcohol and Drug Abuse Patient Records regulations: The Federal rules restrict any use of the information to criminally investigate or prosecute any alcohol or drug abuse patient.[facility] HospitalIn the event this information is protected by the Federal Confidentiality of Alcohol and Drug Abuse Patient Records regulations: The Federal rules restrict any use of the information to criminally investigate or prosecute any alcohol or drug abuse patient.[facility] HospitalIn the event this information is protected by the Federal Confidentiality of Alcohol and Drug Abuse Patient Records regulations: The Federal rules restrict any use of the information to criminally investigate or prosecute any alcohol or drug abuse patient.[facility] HospitalIn the event this information is protected by the Federal Confidentiality of Alcohol and Drug Abuse Patient Records regulations: The Federal rules restrict any use of the information to criminally investigate or prosecute any alcohol or drug abuse patient.[facility] HospitalIn the event this information is protected by the Federal Confidentiality of Alcohol and Drug Abuse Patient Records regulations: The Federal rules restrict any use of the information to criminally investigate or prosecute any alcohol or drug abuse patient.[facility] HospitalIn the event this information is protected by the Federal Confidentiality of Alcohol and Drug Abuse Patient Records regulations: The Federal rules restrict any use of the information to criminally investigate or prosecute any alcohol or drug abuse patient.[facility] HospitalIn the event this information is protected by the Federal Confidentiality of Alcohol and Drug Abuse Patient Records regulations: The Federal rules restrict any use of the information to criminally investigate or prosecute any alcohol or drug abuse patient.[facility] HospitalIn the event this information is protected by the Federal Confidentiality of Alcohol and Drug Abuse Patient Records regulations: The Federal rules restrict any use of the information to criminally investigate or prosecute any alcohol or drug abuse patient.[facility] HospitalIn the event this information is protected by the Federal Confidentiality of Alcohol and Drug Abuse Patient Records regulations: The Federal rules restrict any use of the information to criminally investigate or prosecute any alcohol or drug abuse patient.[facility] HospitalIn the event this information is protected by the Federal Confidentiality of Alcohol and Drug Abuse Patient Records regulations: The Federal rules restrict any use of the information to criminally investigate or prosecute any alcohol or drug abuse patient.[facility] HospitalIn the event this information is protected by the Federal Confidentiality of Alcohol and Drug Abuse Patient Records regulations: The Federal rules restrict any use of the information to criminally investigate or prosecute any alcohol or drug abuse patient.[facility] HospitalIn the event this information is protected by the Federal Confidentiality of Alcohol and Drug Abuse Patient Records regulations: The Federal rules restrict any use of the information to criminally investigate or prosecute any alcohol or drug abuse patient.[facility] HospitalIn the event this information is protected by the Federal Confidentiality of Alcohol and Drug Abuse Patient Records regulations: The Federal rules restrict any use of the information to criminally investigate or prosecute any alcohol or drug abuse patient.[facility] HospitalIn the event this information is protected by the Federal Confidentiality of Alcohol and Drug Abuse Patient Records regulations: The Federal rules restrict any use of the information to criminally investigate or prosecute any alcohol or drug abuse patient.[facility] HospitalIn the event this information is protected by the Federal Confidentiality of Alcohol and Drug Abuse Patient Records regulations: The Federal rules restrict any use of the information to criminally investigate or prosecute any alcohol or drug abuse patient.[facility] HospitalIn the event this information is protected by the Federal Confidentiality of Alcohol and Drug Abuse Patient Records regulations: The Federal rules restrict any use of the information to criminally investigate or prosecute any alcohol or drug abuse patient.[facility] HospitalIn the event this information is protected by the Federal Confidentiality of Alcohol and Drug Abuse Patient Records regulations: The Federal rules restrict any use of the information to criminally investigate or prosecute any alcohol or drug abuse patient.[facility] HospitalIn the event this information is protected by the Federal Confidentiality of Alcohol and Drug Abuse Patient Records regulations: The Federal rules restrict any use of the information to criminally investigate or prosecute any alcohol or drug abuse patient.[facility] HospitalIn the event this information is protected by the Federal Confidentiality of Alcohol and Drug Abuse Patient Records regulations: The Federal rules restrict any use of the information to criminally investigate or prosecute any alcohol or drug abuse patient.[facility] HospitalIn the event this information is protected by the Federal Confidentiality of Alcohol and Drug Abuse Patient Records regulations: The Federal rules restrict any use of the information to criminally investigate or prosecute any alcohol or drug abuse patient.[facility] HospitalIn the event this information is protected by the Federal Confidentiality of Alcohol and Drug Abuse Patient Records regulations: The Federal rules restrict any use of the information to criminally investigate or prosecute any alcohol or drug abuse patient.[facility] HospitalIn the event this information is protected by the Federal Confidentiality of Alcohol and Drug Abuse Patient Records regulations: The Federal rules restrict any use of the information to criminally investigate or prosecute any alcohol or drug abuse patient.[facility] HospitalIn the event this information is protected by the Federal Confidentiality of Alcohol and Drug Abuse Patient Records regulations: The Federal rules restrict any use of the information to criminally investigate or prosecute any alcohol or drug abuse patient.[facility] HospitalIn the event this information is protected by the Federal Confidentiality of Alcohol and Drug Abuse Patient Records regulations: The Federal rules restrict any use of the information to criminally investigate or prosecute any alcohol or drug abuse patient.[facility] HospitalIn the event this information is protected by the Federal Confidentiality of Alcohol and Drug Abuse Patient Records regulations: The Federal rules restrict any use of the information to criminally investigate or prosecute any alcohol or drug abuse patient.[facility] HospitalIn the event this information is protected by the Federal Confidentiality of Alcohol and Drug Abuse Patient Records regulations: The Federal rules restrict any use of the information to criminally investigate or prosecute any alcohol or drug abuse patient.[facility] HospitalIn the event this information is protected by the Federal Confidentiality of Alcohol and Drug Abuse Patient Records regulations: The Federal rules restrict any use of the information to criminally investigate or prosecute any alcohol or drug abuse patient.[facility] HospitalIn the event this information is protected by the Federal Confidentiality of Alcohol and Drug Abuse Patient Records regulations: The Federal rules restrict any use of the information to criminally investigate or prosecute any alcohol or drug abuse patient.[facility] HospitalIn the event this information is protected by the Federal Confidentiality of Alcohol and Drug Abuse Patient Records regulations: The Federal rules restrict any use of the information to criminally investigate or prosecute any alcohol or drug abuse patient.[facility] HospitalIn the event this information is protected by the Federal Confidentiality of Alcohol and Drug Abuse Patient Records regulations: The Federal rules restrict any use of the information to criminally investigate or prosecute any alcohol or drug abuse patient.[facility] HospitalIn the event this information is protected by the Federal Confidentiality of Alcohol and Drug Abuse Patient Records regulations: The Federal rules restrict any use of the information to criminally investigate or prosecute any alcohol or drug abuse patient.[facility] HospitalIn the event this information is protected by the Federal Confidentiality of Alcohol and Drug Abuse Patient Records regulations: The Federal rules restrict any use of the information to criminally investigate or prosecute any alcohol or drug abuse patient.[facility] HospitalIn the event this information is protected by the Federal Confidentiality of Alcohol and Drug Abuse Patient Records regulations: The Federal rules restrict any use of the information to criminally investigate or prosecute any alcohol or drug abuse patient.[facility] HospitalIn the event this information is protected by the Federal Confidentiality of Alcohol and Drug Abuse Patient Records regulations: The Federal rules restrict any use of the information to criminally investigate or prosecute any alcohol or drug abuse patient.[facility] HospitalIn the event this information is protected by the Federal Confidentiality of Alcohol and Drug Abuse Patient Records regulations: The Federal rules restrict any use of the information to criminally investigate or prosecute any alcohol or drug abuse patient.[facility] HospitalIn the event this information is protected by the Federal Confidentiality of Alcohol and Drug Abuse Patient Records regulations: The Federal rules restrict any use of the information to criminally investigate or prosecute any alcohol or drug abuse patient.[facility] HospitalIn the event this information is protected by the Federal Confidentiality of Alcohol and Drug Abuse Patient Records regulations: The Federal rules restrict any use of the information to criminally investigate or prosecute any alcohol or drug abuse patient.[facility] HospitalIn the event this information is protected by the Federal Confidentiality of Alcohol and Drug Abuse Patient Records regulations: The Federal rules restrict any use of the information to criminally investigate or prosecute any alcohol or drug abuse patient.[facility] HospitalIn the event this information is protected by the Federal Confidentiality of Alcohol and Drug Abuse Patient Records regulations: The Federal rules restrict any use of the information to criminally investigate or prosecute any alcohol or drug abuse patient.[facility] HospitalIn the event this information is protected by the Federal Confidentiality of Alcohol and Drug Abuse Patient Records regulations: The Federal rules restrict any use of the information to criminally investigate or prosecute any alcohol or drug abuse patient.[facility] HospitalIn the event this information is protected by the Federal Confidentiality of Alcohol and Drug Abuse Patient Records regulations: The Federal rules restrict any use of the information to criminally investigate or prosecute any alcohol or drug abuse patient.[facility] HospitalIn the event this information is protected by the Federal Confidentiality of Alcohol and Drug Abuse Patient Records regulations: The Federal rules restrict any use of the information to criminally investigate or prosecute any alcohol or drug abuse patient.[facility] HospitalIn the event this information is protected by the Federal Confidentiality of Alcohol and Drug Abuse Patient Records regulations: The Federal rules restrict any use of the information to criminally investigate or prosecute any alcohol or drug abuse patient.[facility] HospitalIn the event this information is protected by the Federal Confidentiality of Alcohol and Drug Abuse Patient Records regulations: The Federal rules restrict any use of the information to criminally investigate or prosecute any alcohol or drug abuse patient.[facility] HospitalIn the event this information is protected by the Federal Confidentiality of Alcohol and Drug Abuse Patient Records regulations: The Federal rules restrict any use of the information to criminally investigate or prosecute any alcohol or drug abuse patient.[facility] HospitalIn the event this information is protected by the Federal Confidentiality of Alcohol and Drug Abuse Patient Records regulations: The Federal rules restrict any use of the information to criminally investigate or prosecute any alcohol or drug abuse patient.[facility] HospitalIn the event this information is protected by the Federal Confidentiality of Alcohol and Drug Abuse Patient Records regulations: The Federal rules restrict any use of the information to criminally investigate or prosecute any alcohol or drug abuse patient.[facility] HospitalIn the event this information is protected by the Federal Confidentiality of Alcohol and Drug Abuse Patient Records regulations: The Federal rules restrict any use of the information to criminally investigate or prosecute any alcohol or drug abuse patient.[facility] HospitalIn the event this information is protected by the Federal Confidentiality of Alcohol and Drug Abuse Patient Records regulations: The Federal rules restrict any use of the information to criminally investigate or prosecute any alcohol or drug abuse patient.[facility] HospitalIn the event this information is protected by the Federal Confidentiality of Alcohol and Drug Abuse Patient Records regulations: The Federal rules restrict any use of the information to criminally investigate or prosecute any alcohol or drug abuse patient.[facility] HospitalIn the event this information is protected by the Federal Confidentiality of Alcohol and Drug Abuse Patient Records regulations: The Federal rules restrict any use of the information to criminally investigate or prosecute any alcohol or drug abuse patient.[facility] HospitalIn the event this information is protected by the Federal Confidentiality of Alcohol and Drug Abuse Patient Records regulations: The Federal rules restrict any use of the information to criminally investigate or prosecute any alcohol or drug abuse patient.[facility] HospitalIn the event this information is protected by the Federal Confidentiality of Alcohol and Drug Abuse Patient Records regulations: The Federal rules restrict any use of the information to criminally investigate or prosecute any alcohol or drug abuse patient.[facility] HospitalIn the event this information is protected by the Federal Confidentiality of Alcohol and Drug Abuse Patient Records regulations: The Federal rules restrict any use of the information to criminally investigate or prosecute any alcohol or drug abuse patient.[facility] HospitalIn the event this information is protected by the Federal Confidentiality of Alcohol and Drug Abuse Patient Records regulations: The Federal rules restrict any use of the information to criminally investigate or prosecute any alcohol or drug abuse patient.[facility] HospitalIn the event this information is protected by the Federal Confidentiality of Alcohol and Drug Abuse Patient Records regulations: The Federal rules restrict any use of the information to criminally investigate or prosecute any alcohol or drug abuse patient.[facility] HospitalIn the event this information is protected by the Federal Confidentiality of Alcohol and Drug Abuse Patient Records regulations: The Federal rules restrict any use of the information to criminally investigate or prosecute any alcohol or drug abuse patient.[facility] HospitalIn the event this information is protected by the Federal Confidentiality of Alcohol and Drug Abuse Patient Records regulations: The Federal rules restrict any use of the information to criminally investigate or prosecute any alcohol or drug abuse patient.[facility] Reason for Visit (unrecogniz ed section and content) Reason Comments Physical Therapy Specialty Diagnoses / Procedures Referred By Mynor t Referred To Contact [facility] Diagnoses Ambulatory dysfunction Procedures CONSULT TO PHYSICAL THERAPY PHYSICAL THERAPY EVALUATION HIGH COMPLEX 45 MINS Sarah Ying MD [address] [place] [address] [facility] [address] [place] [address] Referral ID Status Reason Start Date Expiration Date Visits Requested Visits Authorized [id number] Authorized PCP Requested Referral Auto-Generate d Referral 4 08/11/2025 99 99 Reason Comments Medicare Wellness Exam Reason Comments Results Reason Comments Decreased Vision Right Eye Specialty Diagnoses / Procedures Referred By Mynor watson Referred To Contact Ophthalmology Diagnoses Blurred vision, right eye Procedures CONSULT TO OPHTHALMOLOGY OFFICE/OUTPATIENT [facility] 60-74 MINUTES Alida Jaeger PA-C [address] [place] [address] Referral ID Status Reason Start Date Expiration Date V isits Requested Visits Authorized [id number] Closed PCP Requested Referral 02/14/2022 02/14/2023 1 1 Reason Comments Decreased Vision Both Eyes Reason Onset Date Comments Refill Request 03/28/2022 Reason Comments Outpatient Colonoscopy Diarrhea just depends on what she eats and finds that oil is mainly the cause Constipation Specialty Diagnoses / Procedures Referred By Mynor watson Referred To Contact General Surgery Diagnoses Screening for colon cancer Chronic constipation Procedures CONSULT TO GENERAL SURGERY OFFICE/OUTPATIENT [facility] 60-74 MINUTES Alida Jaeger PA-C [address] [place] [address] Referral ID Status Reason Start Date Expiration Date V isits Requested Visits Authorized [id number] Closed PCP Requested Referral 02/14/2022 02/14/2023 1 1 Reason Onset Date Comments Refill Request 05/22/2022 Reason Onset Date Comments Refill Request 10/05/2022 Reason Onset Date Comments Refill Request 12/24/2022 Reason Comments Handicap placard Reason Comments Consult Possible hydradeniti s. Specialty Diagnoses / Procedures Referred By Contac t Referred To Contact General Surgery Diagnoses Hydradenitis Procedures CONSULT TO GENERAL SURGERY OFFICE/OUTPATIENT [facility] 60-74 MINUTES Mateo Marmolejo MD [address] [place] [id number] Referral ID Status Reason Start Date Expiration Date V isits Requested Visits Authorized [id number] Closed PCP Requested Referral 01/09/2023 01/09/2024 1 1 Reason Comments Follow Up Reason Comments Appointment Reason Comments Refill Request Reason Comments Pain New Specialty Diagnoses / Procedures Referred By Contac t Referred To Contact Orthopedics Diagnoses Right hip pain Procedures CONSULT TO ORTHOPAEDICS OFFICE/OUTPATIENT [facility] 60-74 MINUTES Ramiro Dominguez APRN.FINISHING TUNNEL OPERATOR [address] [phone] Referral ID Status Reason Start Date Expiration Date V isits Requested Visits Authorized [id number] Closed PCP Requested Referral 02/07/2023 02/07/2024 1 1 Reason Comments New Pain Reason Onset Date Comments Refill Request 04/22/2023 Specialty Diagnoses / Procedures Referred By Contac t Referred To Contact CT IMAGING Diagnoses Presence of right artificial hip joint Procedures CT HIP WO IVCON RIGHT CT LOWER EXTREMITY W/O CONTRAST MATERIAL Julio Cesar Deluna MD [address] [place] [address] Ct [facility] Referral ID Status Reason Start Date Expiration Date V isits Requested Visits Authorized [id number] Closed Auto-Generate d Referral 04/10/2023 05/09/2024 1 1 Reason Comments script for lift chair Reason Comments Pre-Op Teaching Reason Comments Consult Reason Comments Orders Reason Comments Patient Question Reason Comments Hip Replacement Post Op Reason Onset Date Comments Refill Request 07/30/2023 Reason Comments swelling concern Reason Comments ED Follow-up Reason Comments Post Op Hip Replacement Reason Comments Results Reason Comments 6 Month Exam Reason Comments Follow Up BLOOD PRESSURE Reason Comments Established Patient nail care Specialty Diagnoses / Procedures Referred By Contac t Referred To Contact Podiatry Diagnoses Ingrown toenail Procedures CONSULT TO PODIATRY OFFICE/OUTPATIENT [facility] 60-74 MINUTES Ramiro Dominguez APRN.CNP [address] [place] [address] Referral ID Status Reason Start Date Expiration Date V isits Requested Visits Authorized [id number] Closed PCP Requested Referral 09/17/2023 09/16/2024 1 1 Reason Comments Appointment Pre-op appointment l eft hip Reason Onset Date Comments Refill Request 12/01/2023 Reason Comments Medication Question Reason Comments Recheck Started amlodipine Reason Comments Med Change Request Reason Comments Blood Pressure FU FU 12/15/23 Reason Comments Pre-Op Visit Reason Onset Date Comments Refill Request 02/26/2024 Reason Comments Appointment Pre-op CT Scan Specialty Diagnoses / Procedures Referred By Mynor t Referred To Contact CT IMAGING Diagnoses Presence of left artificial hip joint Procedures CT HIP WO IVCON LEFT CT LOWER EXTREMITY W/O CONTRAST MATERIAL Julio Cesar Deluna MD [address] [address] [place] [address] Referral ID Status Reason Start Date Expiration Date V isits Requested Visits Authorized [id number] Closed Auto-Generate d Referral 02/17/2024 03/18/2025 1 1 Reason Comments Derm Problem Patient states she h as had open sores in the groin area for approximately 10 years, these began when she started wearing over night pads, states there is often bleeding and clear drainage Reason Comments Patient Update Reason Comments Established Patient Wound check before s urgery Reason Comments Medication Problem Reason Comments Home Health orders Reason Comments Follow Up Reason Comments HH PT POC Reason Comments Faxed Office Notes Reason Comments Medication Problem Please review medica tions that were sent in. Reason Comments Medicare Wellness Exam also had bilatera l hip replacement done by , anus is sore, urinary incontinent Follow Up Reason Comments Consult Specialty Diagnoses / Procedures Referred By Contac t Referred To Contact Gerontology Diagnoses Memory difficulties Procedures CONSULT TO GERIATRICS OFFICE/OUTPATIENT [facility] 60 MINUTES Mateo Marmolejo MD [address] [place] [address] Referral ID Status Reason Start Date Expiration Date V isits Requested Visits Authorized [id number] Closed PCP Requested Referral 07/23/2024 07/23/2025 1 1 Reason Comments Yearly Exam Specialty Diagnoses / Procedures Referred By Contac t Referred To Contact Ophthalmology Diagnoses Blurred vision Procedures CONSULT TO OPHTHALMOLOGY OFFICE/OUTPATIENT [facility] 60 MINUTES Mateo Marmolejo MD [address] [place] [address] Referral ID Status Reason Start Date Expiration Date V isits Requested Visits Authorized [id number] Closed PCP Requested Referral 07/23/2024 07/23/2025 1 1 Reason Comments Consult Reason Comments PT Eval Reason Comments Outside Imaging Reason Comments Medication Request Reason Comments Established Patient Nail care Reason Comments F/U 3 Month Reason Onset Date Comments Refill Request 11/22/2024 Reason Comments Suspected wound infection Reason Comments Derm Problem 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 Reason Comments ER F/U Reason Comments Er Discharge Summary Reason Onset Date Comments Refill Request 12/21/2024 Reason Comments Medication Request Wound Care Reason Comments Follow Up 12/24/24 MRI results, Reason Comments 6 Month Exam Reason Onset Date Comments Results 01/10/2025 Reason Onset Date Comments Refill Request 01/18/2025 Reason Comments Consult Outside [employer] Reason Comments Follow Up Nail Care Reason Comments Acute Visit Bilateral leg crampi ng, intermittent; worse in the last couple days; difficulty sleeping Reason Onset Date Comments Results 02/02/2025 Reason Onset Date Comments Refill Request 02/10/2025 Reason Comments Follow Up 3 months Reason Comments Outside [facility]-D[facility] Ordered Reason Comments Established Patient Nail Care Reason Onset Date Comments Refill Request 05/10/2025 Reason Comments ext document Wound culture Reason Onset Date Comments Refill Request 07/04/2025 Reason Comments Established Patient Nail care Reason Comments Established Patient Follow-Up 3 month F/ [facility] Care Teams (unrecognized sec tion and content) Roller Printer Relationship Specialty Start Date End Date Mateo Marmolejo MD [address] [place] [address] PCP - General Family Practice 08/27/18 Roller Printer Relationship Specialty Start Date End Date Mateo Marmolejo MD [address] [facility] [place] [address] PCP - General Family Practice 08/27/18 Roller Printer Relationship Specialty Start Date End Date Mateo Marmolejo MD [address] [facility] [place] [address] PCP - General Family Practice 08/27/18 Roller Printer Relationship Specialty Start Date End Date Mateo Marmolejo MD [facility] [place] [address] PCP - General Family Practice 08/27/18 Roller Printer Relationship Specialty Start Date End Date Mateo Marmolejo MD [facility] [place] [address] PCP - General Family Practice 08/27/18 Roller Printer Relationship Specialty Start Date End Date Mateo Marmolejo MD [facility] [place] [address] PCP - General Family Practice 08/27/18 Roller Printer Relationship Specialty Start Date End Date Mateo Marmolejo MD [facility] [place] [address] PCP - General Family Practice 08/27/18 Roller Printer Relationship Specialty Start Date End Date Mateo Marmolejo MD [facility] [place] [address] PCP - General Family Medicine 08/27/18 Roller Printer Relationship Specialty Start Date End Date Mateo Marmolejo MD [facility] [place] [address] PCP - General Family Medicine 08/27/18 Roller Printer Relationship Specialty Start Date End Date Mateo Marmolejo MD [facility] [place] [address] PCP - General Family Medicine 08/27/18 Roller Printer Relationship Specialty Start Date End Date Mateo Marmolejo MD [address] [facility] [place] [address] PCP - General Family Medicine 08/27/18 Roller Printer Relationship Specialty Start Date End Date Mateo Marmolejo MD [address] [facility] [place] [address] PCP - General Family Medicine 08/27/18 Roller Printer Relationship Specialty Start Date End Date Mateo Marmolejo MD [facility] [place] [address] PCP - General Family Medicine 08/27/18 Roller Printer Relationship Specialty Start Date End Date Mateo Marmolejo MD [address] [place] [address], [place] [address] PCP - General Family Medicine 08/27/18 Roller Printer Relationship Specialty Start Date End Date Mateo Marmolejo MD [facility] [place] [address] PCP - General Family Medicine 08/27/18 Roller Printer Relationship Specialty Start Date End Date Mateo Marmolejo MD [facility] [place] [address] PCP - General Family Medicine 08/27/18 Roller Printer Relationship Specialty Start Date End Date Mateo Marmolejo MD [facility] [place] [address] PCP - General Family Medicine 08/27/18 Roller Printer Relationship Specialty Start Date End Date Mateo Marmolejo MD [facility] [place] [address] PCP - General Family Medicine 08/27/18 Roller Printer Relationship Specialty Start Date End Date Mateo Marmolejo MD [facility] [place] [address] PCP - General Family Medicine 08/27/18 Roller Printer Relationship Specialty Start Date End Date Mateo Marmolejo MD [address] [place] [address] PCP - General Family Medicine 08/27/18 Vinnie Stephensin, PSS [facility] [address] [place] [address] Specialty Litigation Services Manager Orthopedics 04/30/23 07/31/23 Roller Printer Relationship Specialty Start Date End Date Mateo Marmolejo MD [address] [place] [address] PCP - General Family Medicine 08/27/18 Lazaro Stephens, PSS [facility] [address] [place] [address] Specialty Litigation Services Manager Orthopedics 04/30/23 07/31/23 Roller Printer Relationship Specialty Start Date End Date Mateo Marmolejo MD [address] [place] [address] PCP - General Family Medicine 08/27/18 Lazaro Stephens, PSS [facility] [address] [place] [address] Specialty Litigation Services Manager Orthopedics 04/30/23 07/31/23 Roller Printer Relationship Specialty Start Date End Date Mateo Marmolejo MD [address] [place] [address] PCP - General Family Medicine 08/27/18 Lazaro Stephens, PSS [facility] [address] [place] [address] Specialty Litigation Services Manager Orthopedics 04/30/23 07/31/23 Roller Printer Relationship Specialty Start Date End Date Mateo Marmolejo MD [address] [place] [address] PCP - General Family Medicine 08/27/18 Vinnie Stephensin, P[facility] [address] [place] [address] Specialty Litigation Services Manager Orthopedics 04/30/23 07/31/23 Roller Printer Relationship Specialty Start Date End Date Mateo Marmolejo MD [address] [place] [address] PCP - General Family Medicine 08/27/18 Lazaro Stephens, PSS [facility] [address] [place] [address] Specialty Litigation Services Manager Orthopedics 04/30/23 07/31/23 Roller Printer Relationship Specialty Start Date End Date Mtaeo Marmolejo MD [address] [place] [address] PCP - General Family Medicine 08/27/18 Lazaro Stephens, P[facility] [address] [place] [address] Specialty Litigation Services Manager Orthopedics 04/30/23 07/31/23 Roller Printer Relationship Specialty Start Date End Date Mateo Marmolejo MD [address] [place] [address] PCP - General Family Medicine 08/27/18 Lazaro Stephens, PSS [facility] [address] [place] [address] Specialty Litigation Services Manager Orthopedics 04/30/23 07/31/23 Roller Printer Relationship Specialty Start Date End Date Mateo Marmolejo MD [address] [place] [address] PCP - General Family Medicine 08/27/18 Lazaro Stephens, PSS [facility] [address] [place] [address] Specialty Litigation Services Manager Orthopedics 04/30/23 07/31/23 Roller Printer Relationship Specialty Start Date End Date Mateo Marmolejo MD [address] [place] [address] PCP - General Family Medicine 08/27/18 Vinnie Stephensin, PSS [facility] [address] [place] [address] Specialty Litigation Services Manager Orthopedics 04/30/23 07/31/23 Roller Printer Relationship Specialty Start Date End Date Mateo Marmolejo MD [address] [place] [address] PCP - General Family Medicine 08/27/18 Roller Printer Relationship Specialty Start Date End Date Mateo Marmolejo MD [address] [place] [address] PCP - General Family Medicine 08/27/18 Roller Printer Relationship Specialty Start Date End Date Mateo Marmolejo MD [address] [place] [address] PCP - General Family Medicine 08/27/18 Roller Printer Relationship Specialty Start Date End Date Mateo Marmolejo MD [address] [place] [address] PCP - General Family Medicine 08/27/18 Roller Printer Relationship Specialty Start Date End Date Mateo Marmolejo MD [address] [place] [address] PCP - General Family Medicine 08/27/18 Roller Printer Relationship Specialty Start Date End Date Mateo Marmolejo MD [address] [place] [address] PCP - General Family Medicine 08/27/18 Roller Printer Relationship Specialty Start Date End Date Mateo Marmolejo MD [address] [place] [address] PCP - General Family Medicine 08/27/18 Roller Printer Relationship Specialty Start Date End Date Mateo Marmolejo MD [address] [place] [address] PCP - General Family Medicine 08/27/18 Roller Printer Relationship Specialty Start Date End Date Mateo Marmolejo MD [address] [place] [address] PCP - General Family Medicine 08/27/18 Roller Printer Relationship Specialty Start Date End Date Mateo Marmolejo MD [address] [place] [address] PCP - General Family Medicine 08/27/18 Roller Printer Relationship Specialty Start Date End Date Mateo Marmolejo MD [address] [place] [address] PCP - General Family Medicine 08/27/18 Roller Printer Relationship Specialty Start Date End Date Mateo Marmolejo MD [address] [place] [address] PCP - General Family Medicine 08/27/18 Roller Printer Relationship Specialty Start Date End Date Mateo Marmolejo MD [address] [place] [address] PCP - General Family Medicine 08/27/18 Roller Printer Relationship Specialty Start Date End Date Mateo Marmolejo MD [address] [place] [address] PCP - General Family Medicine 08/27/18 Roller Printer Relationship Specialty Start Date End Date Matoe Marmolejo MD [address] [place] [address] PCP - General Family Medicine 08/27/18 Roller Printer Relationship Specialty Start Date End Date Mateo Marmolejo MD [address] [place] [address] PCP - General Family Medicine 08/27/18 SisVinnie wolfein, PSS [facility] [address] [place] [address] Specialty Litigation Services Manager Orthopedics 03/04/24 05/27/24 Roller Printer Relationship Specialty Start Date End Date Mateo Marmolejo MD [address] [place] [address] PCP - General Family Medicine 08/27/18 SisVinnie wolfein, PSS [facility] [address] [place] [address] Specialty Litigation Services Manager Orthopedics 03/04/24 05/27/24 Roller Printer Relationship Specialty Start Date End Date Mateo Marmolejo MD [address] [place] [address] PCP - General Family Medicine 08/27/18 Vinnie Stephensin, PSS [facility] [address] [place] [address] Specialty Litigation Services Manager Orthopedics 03/04/24 05/27/24 Roller Printer Relationship Specialty Start Date End Date Mateo Marmolejo MD [address] [place] [address] PCP - General Family Medicine 08/27/18 Lazaro Stephens, PSS [facility] [address] [place] [address] Specialty Litigation Services Manager Orthopedics 03/04/24 05/27/24 Roller Printer Relationship Specialty Start Date End Date Mateo Marmolejo MD [address] [place] [address] PCP - General Family Medicine 08/27/18 Vinnie Stephensin, PSS [facility] [address] [place] [address] Specialty Litigation Services Manager Orthopedics 03/04/24 05/27/24 Roller Printer Relationship Specialty Start Date End Date Mateo Marmolejo MD [address] [place] [address] PCP - General Family Medicine 08/27/18 SisVinnie wolfein, PSS [facility] [address] [place] [address] Specialty Litigation Services Manager Orthopedics 03/04/24 05/27/24 Roller Printer Relationship Specialty Start Date End Date Mateo Marmolejo MD [address] [place] [address] PCP - General Family Medicine 08/27/18 SisVinnie wolfein, PSS [facility] [address] [place] [address] Specialty Litigation Services Manager Orthopedics 03/04/24 05/27/24 Roller Printer Relationship Specialty Start Date End Date Mateo Marmolejo MD [address] [place] [address] PCP - General Family Medicine 08/27/18 Vinnie Stephensin, PSS [facility] [address] [place] [address] Specialty Litigation Services Manager Orthopedics 03/04/24 05/27/24 Roller Printer Relationship Specialty Start Date End Date Mateo Marmolejo MD [address] [place] [address] PCP - General Family Medicine 08/27/18 Lazaro Stephens, PSS [facility] [address] [place] [address] Specialty Litigation Services Manager Orthopedics 03/04/24 05/27/24 Roller Printer Relationship Specialty Start Date End Date Mateo Marmolejo MD [address] [place] [address] PCP - General Family Medicine 08/27/18 Vinnie Stephensin, PSS [facility] [address] [place] [address] Specialty Litigation Services Manager Orthopedics 03/04/24 05/27/24 Roller Printer Relationship Specialty Start Date End Date Mateo Marmolejo MD [address] [place] [address] PCP - General Family Medicine 08/27/18 Lazaro Stephens [facility] [address] [place] [address] Specialty Litigation Services Manager Orthopedics 03/04/24 05/27/24 Roller Printer Relationship Specialty Start Date End Date Mateo Marmolejo MD [address] [place] [address] PCP - General Family Medicine 08/27/18 Roller Printer Relationship Specialty Start Date End Date Mateo Marmolejo MD [address] [place] [address] PCP - General Family Medicine 08/27/18 Roller Printer Relationship Specialty Start Date End Date Mateo Marmolejo MD [address] [place] [address] PCP - General Family Medicine 08/27/18 Roller Printer Relationship Specialty Start Date End Date Mateo Marmolejo MD [address] [place] [address] PCP - General Family Medicine 08/27/18 Roller Printer Relationship Specialty Start Date End Date Mateo Marmolejo MD [address] [place] [address] PCP - General Family Medicine 08/27/18 Roller Printer Relationship Specialty Start Date End Date aMteo Marmolejo MD [address] [place] [address] PCP - General Family Medicine 08/27/18 Roller Printer Relationship Specialty Start Date End Date Mateo Marmolejo MD [address] [place] [address] PCP - General Family Medicine 08/27/18 Lazaro Stephens, [facility] [address] [place] [address] Specialty Litigation Services Manager Orthopedics 03/04/24 05/27/24 Roller Printer Relationship Specialty Start Date End Date Mateo Marmolejo MD [address] [place] [address] PCP - General Family Medicine 08/27/18 Roller Printer Relationship Specialty Start Date End Date Mateo Marmolejo MD [address] [place] [address] PCP - General Family Medicine 08/27/18 Lazaro Stephens, [facility] [address] [place] [address] Specialty Litigation Services Manager Orthopedics 04/30/23 07/31/23 Roller Printer Relationship Specialty Start Date End Date Mateo Marmolejo MD [address] [place] [address] PCP - General Family Medicine 08/27/18 Roller Printer Relationship Specialty Start Date End Date Mateo Marmolejo MD [address] [place] [address] PCP - General Family Medicine 08/27/18 Roller Printer Relationship Specialty Start Date End Date Mateo Marmolejo MD [address] [place] [address] PCP - General Family Medicine 08/27/18 Roller Printer Relationship Specialty Start Date End Date Mateo Marmolejo MD [address] [place] [address] PCP - General Family Medicine 08/27/18 Roller Printer Relationship Specialty Start Date End Date Mateo Marmolejo MD [address] [place] [address] PCP - General Family Medicine 08/27/18 Roller Printer Relationship Specialty Start Date End Date Mateo Marmolejo MD [address] [place] [address] PCP - General Family Medicine 08/27/18 [facility] [address] [place] [address] Specialty Litigation Services Manager Orthopedics 03/04/24 05/27/24 Roller Printer Relationship Specialty Start Date End Date Mateo Marmolejo MD [address] [place] [address] PCP - General Family Medicine 08/27/18 Roller Printer Relationship Specialty Start Date End Date Mateo Marmolejo MD [address] [place] [address] PCP - General Family Medicine 08/27/18 Roller Printer Relationship Specialty Start Date End Date Mateo Marmolejo MD [address] [place] [address] PCP - General Family Medicine 08/27/18 Roller Printer Relationship Specialty Start Date End Date Mateo Marmolejo MD [address] [place] [address] PCP - General Family Medicine 08/27/18 Ramiro Dominguez APRN.FINISHING TUNNEL OPERATOR [address] [place] [address] Stock Broker Supervisor Family Medicine 10/02/24 Alida Jaeger PA-C [address] [place] [address] Stock Broker Supervisor Family Medicine 10/02/24 Roller Printer Relationship Specialty Start Date End Date Mateo Marmolejo MD [address] [place] [address] PCP - General Family Medicine 08/27/18 Ramiro Dominguez, SUZY.FINISHING TUNNEL OPERATOR [address] [place] [address] Stock Broker Supervisor Family Medicine 10/02/24 Alida Jaeger PA-C [address] [place] [address] [facility] 10/02/24 Roller Printer Relationship Specialty Start Date End Date Mateo Marmolejo MD [address] [place] [address] PCP - General Family Medicine 08/27/18 Ramrio Dominguez, REAL ESTATE DEVELOPER.FINISHING TUNNEL OPERATOR [address] [place] [address] Stock Broker Supervisor Family Medicine 10/02/24 Alida Jaeger PA-C [address] [place] [address] Stock Broker Supervisor Family Medicine 10/02/24 Roller Printer Relationship Specialty Start Date End Date Mateo Marmolejo MD [address] [place] [address] PCP - General Family Medicine 08/27/18 Ramiro Dominguez, REAL ESTATE DEVELOPER.FINISHING TUNNEL OPERATOR [address] [place] [address] Stock Broker Supervisor Family Medicine 10/02/24 Alida Jaeger PA-C [address] [facility] [place] [address] Stock Broker Supervisor Family [facility] 10/02/24 Roller Printer Relationship Specialty Start Date End Date Mateo Marmolejo MD [address] [facility] [place] [address] PCP - General Family Medicine 08/27/18 Ramiro Dominguez APRN.FINISHING TUNNEL OPERATOR [address] [place] [address] Stock Broker Supervisor Family Medicine 10/02/24 Alida Jaeger PA-C [address] [place] [address] [facility] 10/02/24 Roller Printer Relationship Specialty Start Date End Date Mateo Marmolejo MD [address] [place] [address] PCP - General Family Medicine 08/27/18 Ramiro Dominguez, SUZY.FINISHING TUNNEL OPERATOR [address] [place] [address] Stock Broker Supervisor Family Medicine 10/02/24 Alida Jaeger PA-C [address] [facility] [place] [address] Stock Broker Supervisor Family Medicine 10/02/24 Roller Printer Relationship Specialty Start Date End Date Mateo Marmolejo MD [address] [facility] [place] [address] PCP - General Family Medicine 08/27/18 Ramiro Dominguez APRN.FINISHING TUNNEL OPERATOR [address] [place] [address] Stock Broker Supervisor Family Medicine 10/02/24 Alida Jaeger PA-C [address] [place] [address] Stock Broker Supervisor Family Medicine 10/02/24 Roller Printer Relationship Specialty Start Date End Date Mateo Marmolejo MD [address] [place] [address] PCP - General Family Medicine 08/27/18 Ramiro Dominguez APRN.FINISHING TUNNEL OPERATOR [address] [place] [address] Stock Broker Supervisor Family Medicine 10/02/24 Alida Jaeger PA-C [address] [place] [address] Stock Broker Supervisor Family Medicine 10/02/24 Roller Printer Relationship Specialty Start Date End Date Mateo Marmolejo MD [address] [place] [address] PCP - General Family Medicine 08/27/18 Ramiro Dominguez APRN.FINISHING TUNNEL OPERATOR [address] [place] [address] Stock Broker Supervisor Family Medicine 10/02/24 Alida Jaeger PA-C [address] [place] [address] Stock Broker Supervisor Family Medicine 10/02/24 Roller Printer Relationship Specialty Start Date End Date Mateo Marmolejo MD [address] [place] [address] PCP - General Family Medicine 08/27/18 Ramiro Dominguez, REAL ESTATE DEVELOPER.FINISHING TUNNEL OPERATOR [address] [place] [address] Stock Broker Supervisor Family Medicine 10/02/24 Alida Jaeger PA-C [address] [place] [address] Stock Broker Supervisor Family Medicine 10/02/24 Roller Printer Relationship Specialty Start Date End Date aMteo Marmolejo MD [address] [place] [address] PCP - General Family Medicine 08/27/18 Ramiro Dominguez, SUZY.FINISHING TUNNEL OPERATOR [address] [place] [address] Stock Broker Supervisor Family Medicine 10/02/24 Alida Jaeger PA-C [address] [place] [address] Stock Broker Supervisor Family Medicine 10/02/24 Roller Printer Relationship Specialty Start Date End Date Mateo Marmolejo MD [address] [place] [address] PCP - General Family Medicine 08/27/18 Ramiro Dominguez, REAL ESTATE DEVELOPER.FINISHING TUNNEL OPERATOR [address] [place] [address] Stock Broker Supervisor Family Medicine 10/02/24 Alida Jaeger PA-C [address] [place] [address] Stock Broker Supervisor Family Medicine 10/02/24 Roller Printer Relationship Specialty Start Date End Date Mateo Marmolejo MD [address] [place] [address] PCP - General Family Medicine 08/27/18 Ramiro Dominguez APRN.FINISHING TUNNEL OPERATOR [address] [place] [address] [facility] 10/02/24 Alida Jaeger PA-C [address] [place] [address] [facility] 10/02/24 Roller Printer Relationship Specialty Start Date End Date Mateo Marmolejo MD [address] [place] [address] PCP - General Family Medicine 08/27/18 Ramiro Dominguez APRN.FINISHING TUNNEL OPERATOR [address] [place] [address] [facility] 10/02/24 Alida Jaeger PA-C [address] [place] [address] [facility] 10/02/24 Team Status: Active Member Role Status Dates Dr. Mateo Marmolejo MD Primary Care Provider Active Team Status: Inactive Member Role Status Dates Dr. Mateo Marmolejo MD Primary Care Provider Active Start: December 03, 2024 End: December 03, 2024 Dr. Kathleen Winkler DO Attending Provider Active Start: December 03, 2024 End: December 03, 2024 Dr. Kathleen Winkler DO Emergency Provider Active Start: December 03, 2024 End: December 03, 2024 Team Status: Inactive Member Role Status Dates Dr. Mateo Marmolejo MD Primary Care Provider Active Start: December 10, 2024 End: December 10, 2024 Dr. Mateo Marmolejo MD Referring Provider Active Start: December 10, 2024 End: December 10, 2024 Dr. Shayla Fay DO Attending Provider Activ e Start: December 10, 2024 End: December 10, 2024 Team Status: Inactive Member Role Status Dates Dr. Mateo Marmolejo MD Primary Care Provider Active Start: December 30, 2024 End: December 30, 2024 Dr. Mateo Marmolejo MD Referring Provider Active Start: December 30, 2024 End: December 30, 2024 Dr. Kasi Eugene MD Attending Provider Active Start: December 30, 2024 End: December 30, 2024 Team Status: Active Member Role Status Dates Dr. Mateo Marmolejo MD Primary Care Provider Active Start: January 06, 2025 End: January 06, 2025 Dr. Orlando Thomson MD Attending Provider Activ e Start: January 06, 2025 End: January 06, 2025 Dr. Shayla Fay DO Referring Provider Activ e Start: January 06, 2025 End: January 06, 2025 Team Status: Inactive Member Role Status Dates Dr. Mateo Marmolejo MD Primary Care Provider Active Start: January 18, 2025 End: January 18, 2025 Dr. Shayla Fay DO Attending Provider Activ e Start: January 18, 2025 End: January 18, 2025 Dr. Shayla Fay DO Referring Provider Activ e Start: January 18, 2025 End: January 18, 2025 Team Status: Active Member Role Status Dates Dr. Mateo Marmolejo MD Primary Care Provider Active Start: January 18, 2025 Dr. Shayla Fay DO Attending Provider Activ e Start: January 18, 2025 Dr. Shayla Fay DO Referring Provider Activ e Start: January 18, 2025 Dr. Shayla Fay DO Other Provider Active Start: January 18, 2025 Roller Printer Relationship Specialty Start Date End Date Mateo Marmolejo MD [facility] [place] [address] PCP - General Family Medicine 08/27/18 Ramiro Dominguez APRN.CNP [address] [place] [address] [facility] 10/02/24 Alida Jaeger PA-C [address] [place] [address] [facility] 10/02/24 Roller Printer Relationship Specialty Start Date End Date Mateo Marmolejo MD [address] [place] [address] PCP - General Family Medicine 08/27/18 Ramiro Dominguez APRN.FINISHING TUNNEL OPERATOR [address] [place] [address] [facility] 10/02/24 Alida Jaeger PA-C [address] [place] [address] [facility] 10/02/24 Roller Printer Relationship Specialty Start Date End Date Mateo Marmolejo MD [address] [place] [address] PCP - General Family Medicine 08/27/18 Ramiro Dominguez APRN.FINISHING TUNNEL OPERATOR [address] [place] [address] [facility] 10/02/24 Alida Jaeger PA-C [address] [place] [address] [facility] 10/02/24 Team Status: Inactive Member Role Status Dates Dr. Mateo Marmolejo MD Primary Care Provider Active Start: January 31, 2025 End: January 31, 2025 Dr. Mateo Marmolejo MD Referring Provider Active Start: January 31, 2025 End: January 31, 2025 Dr. Shayla Fay DO Attending Provider Activ e Start: January 31, 2025 End: January 31, 2025 Team Status: Inactive Member Role Status Dates Dr. Mateo Marmolejo MD Primary Care Provider Active Start: April 01, 2025 End: April 01, 2025 Dr. Mateo Marmolejo MD Referring Provider Active Start: April 01, 2025 End: April 01, 2025 Dr. Kasi Eugene MD Attending Provider Active Start: April 01, 2025 End: April 01, 2025 Roller Printer Relationship Specialty Start Date End Date Mateo Marmolejo MD [facility] [place] [address] PCP - General Family Medicine 08/27/18 Ramiro Dominguez APRN.FINISHING TUNNEL OPERATOR [address] [place] [address] Stock Broker Supervisor Family Medicine 03/28/25 Alida Jaeger PA-C [address] [place] [address] Stock Broker Supervisor Family Medicine 03/28/25 Roller Printer Relationship Specialty Start Date End Date Mateo Marmolejo MD [address] [place] [address] PCP - General Family Medicine 08/27/18 Ramiro Dominguez, SUZY.FINISHING TUNNEL OPERATOR [address] [place] [address] Stock Broker Supervisor Family Medicine 03/28/25 Alida Jaeger PA-C [facility] [place] [address] Stock Broker Supervisor Family Medicine 03/28/25 Roller Printer Relationship Specialty Start Date End Date Mateo Marmolejo MD [facility] [place] [address] PCP - General Family Medicine 08/27/18 Ramiro Dominguez APRN.CNP [address] [place] [address] [facility] 03/28/25 Alida Jaeger PA-C [address] [place] [address] [facility] 03/28/25 Team Status: Active Member Role Status Dates Dr. Mateo Marmolejo MD Primary Care Provider Active Start: April 12, 2025 Dr. Kasi Eugene MD Attending Provider Active Start: April 12, 2025 Dr. Kasi Eugene MD Referring Provider Active Start: April 12, 2025 Dr. Kasi Eugene MD Other Provider Active Star t: April 12, 2025 Team Status: Active Member Role Status Dates Dr. Mateo Marmolejo MD Primary Care Provider Active Start: April 18, 2025 Dr. Kasi Eugene MD Attending Provider Active Start: April 18, 2025 Dr. Kasi Eugene MD Referring Provider Active Start: April 18, 2025 Team Status: Active Member Role Status Dates Dr. Mateo Marmolejo MD Primary Care Provider Active Start: April 18, 2025 Dr. Kasi Eugene MD Attending Provider Active Start: April 18, 2025 Dr. Kasi Eugene MD Referring Provider Active Start: April 18, 2025 Dr. Kasi Eugene MD Other Provider Active Star t: April 18, 2025 Team Status: Inactive Member Role Status Dates Dr. Mateo Marmolejo MD Primary Care Provider Active Start: April 21, 2025 End: April 21, 2025 Dr. Mateo Marmolejo MD Referring Provider Active Start: April 21, 2025 End: April 21, 2025 Julia Rankin SWITCH CREW SUPERVISOR, SWITCH CREW SUPERVISOR-C Attending Provider Active Start: April 21, 2025 End: April 21, 2025 Team Status: Active Member Role/Relationship Status Dates Dr. Mateo Marmolejo MD Primary Care Provider Active Team Status: Inactive Member Role/Relationship Status Dates Dr. Mateo Marmolejo MD Primary Care Provider Active Start: December 30, 2024 End: December 30, 2024 Dr. Mateo Marmolejo MD Referring Provider Active Start: December 30, 2024 End: December 30, 2024 Dr. Kasi Eugene MD Attending Provider Active Start: December 30, 2024 End: December 30, 2024 Team Status: Active Member Role/Relationship Status Dates Dr. Mateo Marmolejo MD Primary Care Provider Active Start: January 06, 2025 End: January 06, 2025 Dr. Orlando Thomson MD Attending Provider Activ e Start: January 06, 2025 End: January 06, 2025 Dr. Shayla Fay DO Referring Provider Activ e Start: January 06, 2025 End: January 06, 2025 Team Status: Inactive Member Role/Relationship Status Dates Dr. Mateo Marmolejo MD Primary Care Provider Active Start: January 18, 2025 End: January 18, 2025 Dr. Shayla Fay DO Attending Provider Activ e Start: January 18, 2025 End: January 18, 2025 Dr. Shayla Fay DO Referring Provider Activ e Start: January 18, 2025 End: January 18, 2025 Team Status: Active Member Role/Relationship Status Dates Dr. Mateo Marmolejo MD Primary Care Provider Active Start: January 18, 2025 Dr. Shayla Fay DO Attending Provider Activ e Start: January 18, 2025 Dr. Shayla Fay DO Referring Provider Activ e Start: January 18, 2025 Dr. Shayla Fay DO Other Provider Active Start: January 18, 2025 Team Status: Inactive Member Role/Relationship Status Dates Dr. Mateo Marmolejo MD Primary Care Provider Active Start: January 31, 2025 End: January 31, 2025 Dr. Mateo Marmolejo MD Referring Provider Active Start: January 31, 2025 End: January 31, 2025 Dr. Shayla Fay DO Attending Provider Activ e Start: January 31, 2025 End: January 31, 2025 Team Status: Inactive Member Role/Relationship Status Dates Dr. Mateo Marmolejo MD Primary Care Provider Active Start: April 01, 2025 End: April 01, 2025 Dr. Mateo Marmolejo MD Referring Provider Active Start: April 01, 2025 End: April 01, 2025 Dr. Kasi Eugene MD Attending Provider Active Start: April 01, 2025 End: April 01, 2025 Team Status: Active Member Role/Relationship Status Dates Dr. Mateo Marmolejo MD Primary Care Provider Active Start: April 12, 2025 Dr. Kasi Eugene MD Attending Provider Active Start: April 12, 2025 Dr. Kasi Eugene MD Referring Provider Active Start: April 12, 2025 Dr. Kasi Eugene MD Other Provider Active Star t: April 12, 2025 Team Status: Inactive Member Role/Relationship Status Dates Dr. Mateo Marmolejo MD Primary Care Provider Active Start: April 18, 2025 End: April 18, 2025 Dr. Kasi Eugene MD Attending Provider Active Start: April 18, 2025 End: April 18, 2025 Dr. Kasi Eugene MD Referring Provider Active Start: April 18, 2025 End: April 18, 2025 Team Status: Active Member Role/Relationship Status Dates Dr. Mateo Marmolejo MD Primary Care Provider Active Start: April 18, 2025 Dr. Kasi Eugene MD Attending Provider Active Start: April 18, 2025 Dr. Kasi Eugene MD Referring Provider Active Start: April 18, 2025 Team Status: Active Member Role/Relationship Status Dates Dr. Mateo Marmolejo MD Primary Care Provider Active Start: April 18, 2025 Dr. Kasi Eugene MD Attending Provider Active Start: April 18, 2025 Dr. Kasi Eugeen MD Referring Provider Active Start: April 18, 2025 Dr. Kasi Eugene MD Other Provider Active Star t: April 18, 2025 Team Status: Inactive Member Role/Relationship Status Dates Dr. Mateo Marmolejo MD Primary Care Provider Active Start: April 21, 2025 End: April 21, 2025 Dr. Mateo Marmolejo MD Referring Provider Active Start: April 21, 2025 End: April 21, 2025 Julia Rankin SWITCH CREW SUPERVISOR, SWITCH CREW SUPERVISOR-C Attending Provider Active Start: April 21, 2025 End: April 21, 2025 Team Status: Active Member Role/Relationship Status Dates Dr. Mateo Marmolejo MD Primary Care Provider Active Start: April 21, 2025 Dr. Breonna Lui MD Attending Provider Active Start: April 21, 2025 Dr. Breonna Lui MD Referring Provider Active Start: April 21, 2025 Team Status: Inactive Member Role/Relationship Status Dates Dr. Mateo Marmolejo MD Primary Care Provider Active Start: April 18, 2025 End: April 25, 2025 Dr. Kasi Eugene MD Attending Provider Active Start: April 18, 2025 End: April 25, 2025 Dr. Kasi Eugene MD Referring Provider Active Start: April 18, 2025 End: April 25, 2025 Team Status: Inactive Member Role/Relationship Status Dates Dr. Mateo Marmolejo MD Primary Care Provider Active Start: April 21, 2025 End: April 21, 2025 Dr. Breonna Lui MD Attending Provider Active Start: April 21, 2025 End: April 21, 2025 Dr. Breonna Lui MD Referring Provider Active Start: April 21, 2025 End: April 21, 2025 Team Status: Active Member Role/Relationship Status Dates Dr. Mateo Marmolejo MD Primary Care Provider Active Start: April 26, 2025 Dr. Breonna Lui MD Attending Provider Active Start: April 26, 2025 Dr. Breonna Lui MD Referring Provider Active Start: April 26, 2025 Team Status: Active Member Role/Relationship Status Dates Dr. Mateo Marmolejo MD Primary Care Provider Active Start: January 06, 2025 End: January 06, 2025 Dr. Orlando Thomson MD Attending Provider Activ e Start: January 06, 2025 End: January 06, 2025 Dr. Shayla Fay DO Referring Provider Activ e Start: January 06, 2025 End: January 06, 2025 Team Status: Inactive Member Role/Relationship Status Dates Dr. Mateo Marmolejo MD Primary Care Provider Active Start: January 18, 2025 End: January 18, 2025 Dr. Shayla Fay DO Attending Provider Activ e Start: January 18, 2025 End: January 18, 2025 Dr. Shayla Fay DO Referring Provider Activ e Start: January 18, 2025 End: January 18, 2025 Team Status: Active Member Role/Relationship Status Dates Dr. Mateo Marmolejo MD Primary Care Provider Active Start: January 18, 2025 Dr. Shayla Fay DO Attending Provider Activ e Start: January 18, 2025 Dr. Shayla Fay DO Referring Provider Activ e Start: January 18, 2025 Dr. Shayla Fay DO Other Provider Active Start: January 18, 2025 Team Status: Inactive Member Role/Relationship Status Dates Dr. Mateo Marmolejo MD Primary Care Provider Active Start: January 31, 2025 End: January 31, 2025 Dr. Mateo Marmolejo MD Referring Provider Active Start: January 31, 2025 End: January 31, 2025 Dr. Shayla Fay DO Attending Provider Activ e Start: January 31, 2025 End: January 31, 2025 Team Status: Inactive Member Role/Relationship Status Dates Dr. Mateo Marmolejo MD Primary Care Provider Active Start: April 01, 2025 End: April 01, 2025 Dr. Mateo Marmolejo MD Referring Provider Active Start: April 01, 2025 End: April 01, 2025 Dr. Kasi Eugene MD Attending Provider Active Start: April 01, 2025 End: April 01, 2025 Team Status: Active Member Role/Relationship Status Dates Dr. Mateo Marmolejo MD Primary Care Provider Active Start: April 12, 2025 Dr. Kasi Eugene MD Attending Provider Active Start: April 12, 2025 Dr. Kasi Eugene MD Referring Provider Active Start: April 12, 2025 Dr. Kasi Eugene MD Other Provider Active Star t: April 12, 2025 Team Status: Inactive Member Role/Relationship Status Dates Dr. Mateo Marmolejo MD Primary Care Provider Active Start: April 18, 2025 End: April 18, 2025 Dr. Kasi Eugene MD Attending Provider Active Start: April 18, 2025 End: April 18, 2025 Dr. Kasi Eugene MD Referring Provider Active Start: April 18, 2025 End: April 18, 2025 Team Status: Inactive Member Role/Relationship Status Dates Dr. Mateo Marmolejo MD Primary Care Provider Active Start: April 18, 2025 End: April 25, 2025 Dr. Kasi Eugene MD Attending Provider Active Start: April 18, 2025 End: April 25, 2025 Dr. Kasi Eugene MD Referring Provider Active Start: April 18, 2025 End: April 25, 2025 Team Status: Active Member Role/Relationship Status Dates Dr. Mateo Marmolejo MD Primary Care Provider Active Start: April 18, 2025 Dr. Kasi Eugene MD Attending Provider Active Start: April 18, 2025 Dr. Kasi Eugene MD Referring Provider Active Start: April 18, 2025 Dr. Kasi Eugene MD Other Provider Active Star t: April 18, 2025 Team Status: Inactive Member Role/Relationship Status Dates Dr. Mateo Marmolejo MD Primary Care Provider Active Start: April 21, 2025 End: April 21, 2025 Dr. Mateo Marmolejo MD Referring Provider Active Start: April 21, 2025 End: April 21, 2025 Julia Rankin SWITCH CREW SUPERVISOR, SWITCH CREW SUPERVISOR-C Attending Provider Active Start: April 21, 2025 End: April 21, 2025 Team Status: Inactive Member Role/Relationship Status Dates Dr. Mateo Marmolejo MD Primary Care Provider Active Start: April 21, 2025 End: April 21, 2025 Dr. Breonna Lui MD Attending Provider Active Start: April 21, 2025 End: April 21, 2025 Dr. Breonna Lui MD Referring Provider Active Start: April 21, 2025 End: April 21, 2025 Team Status: Inactive Member Role/Relationship Status Dates Dr. Mateo Marmolejo MD Primary Care Provider Active Start: April 26, 2025 End: April 26, 2025 Dr. Breonna Lui MD Attending Provider Active Start: April 26, 2025 End: April 26, 2025 Dr. Breonna Lui MD Referring Provider Active Start: April 26, 2025 End: April 26, 2025 Team Status: Active Member Role/Relationship Status Dates Dr. Mateo Marmolejo MD Primary Care Provider Active Start: May 02, 2025 Dr. Kasi Eugene MD Attending Provider Active Start: May 02, 2025 Dr. Kasi Eugene MD Referring Provider Active Start: May 02, 2025 Team Status: Active Member Role/Relationship Status Dates Dr. Mateo Marmolejo MD Primary Care Provider Active Start: May 02, 2025 Dr. Kasi Eugene MD Attending Provider Active Start: May 02, 2025 Dr. Kasi Eugene MD Referring Provider Active Start: May 02, 2025 Dr. Kasi Eugene MD Other Provider Active Star t: May 02, 2025 Team Status: Inactive Member Role/Relationship Status Dates Dr. Mateo Marmolejo MD Primary Care Provider Active Start: May 04, 2025 End: May 04, 2025 Dr. Mateo Marmolejo MD Referring Provider Active Start: May 04, 2025 End: May 04, 2025 Dr. Shayla Fay DO Attending Provider Activ e Start: May 04, 2025 End: May 04, 2025 Team Status: Active Member Role/Relationship Status Dates Dr. Mateo Marmolejo MD Primary Care Provider Active Start: May 04, 2025 Dr. Shayla Fay DO Attending Provider Activ e Start: May 04, 2025 Dr. Shayla Fay DO Referring Provider Activ e Start: May 04, 2025 Team Status: Inactive Member Role/Relationship Status Dates Dr. Mateo Marmolejo MD Primary Care Provider Active Start: January 18, 2025 End: January 18, 2025 Dr. Shayla Fay DO Attending Provider Activ e Start: January 18, 2025 End: January 18, 2025 Dr. Shayla Fay DO Referring Provider Activ e Start: January 18, 2025 End: January 18, 2025 Team Status: Active Member Role/Relationship Status Dates Dr. Mateo Marmolejo MD Primary Care Provider Active Start: January 18, 2025 Dr. Shayla Fay DO Attending Provider Activ e Start: January 18, 2025 Dr. Shayla Fay DO Referring Provider Activ e Start: January 18, 2025 Dr. Shayla Fay DO Other Provider Active Start: January 18, 2025 Team Status: Inactive Member Role/Relationship Status Dates Dr. Mateo Marmolejo MD Primary Care Provider Active Start: January 31, 2025 End: January 31, 2025 Dr. Mateo Marmolejo MD Referring Provider Active Start: January 31, 2025 End: January 31, 2025 Dr. Shayla Fay DO Attending Provider Activ e Start: January 31, 2025 End: January 31, 2025 Team Status: Inactive Member Role/Relationship Status Dates Dr. Mateo Marmolejo MD Primary Care Provider Active Start: April 01, 2025 End: April 01, 2025 Dr. Mateo Marmolejo MD Referring Provider Active Start: April 01, 2025 End: April 01, 2025 Dr. Kasi Eugene MD Attending Provider Active Start: April 01, 2025 End: April 01, 2025 Team Status: Active Member Role/Relationship Status Dates Dr. Mateo Marmolejo MD Primary Care Provider Active Start: April 12, 2025 Dr. Kasi Eugene MD Attending Provider Active Start: April 12, 2025 Dr. Kasi Eugene MD Referring Provider Active Start: April 12, 2025 Dr. Kasi Eugene MD Other Provider Active Star t: April 12, 2025 Team Status: Inactive Member Role/Relationship Status Dates Dr. Mateo Marmolejo MD Primary Care Provider Active Start: April 18, 2025 End: April 18, 2025 Dr. Kasi Eugene MD Attending Provider Active Start: April 18, 2025 End: April 18, 2025 Dr. Kasi Eugene MD Referring Provider Active Start: April 18, 2025 End: April 18, 2025 Team Status: Inactive Member Role/Relationship Status Dates Dr. Mateo Marmolejo MD Primary Care Provider Active Start: April 18, 2025 End: April 25, 2025 Dr. Kasi Eugene MD Attending Provider Active Start: April 18, 2025 End: April 25, 2025 Dr. Kasi Eugene MD Referring Provider Active Start: April 18, 2025 End: April 25, 2025 Team Status: Active Member Role/Relationship Status Dates Dr. Mateo Marmolejo MD Primary Care Provider Active Start: April 18, 2025 Dr. Kasi Eugene MD Attending Provider Active Start: April 18, 2025 Dr. Kasi Eugene MD Referring Provider Active Start: April 18, 2025 Dr. Kasi Eugene MD Other Provider Active Star t: April 18, 2025 Team Status: Inactive Member Role/Relationship Status Dates Dr. Mateo Marmolejo MD Primary Care Provider Active Start: April 21, 2025 End: April 21, 2025 Dr. Mateo Marmolejo MD Referring Provider Active Start: April 21, 2025 End: April 21, 2025 Julia Rankin SWITCH CREW SUPERVISOR, SWITCH CREW SUPERVISOR-C Attending Provider Active Start: April 21, 2025 End: April 21, 2025 Team Status: Inactive Member Role/Relationship Status Dates Dr. Mateo Marmolejo MD Primary Care Provider Active Start: April 21, 2025 End: April 21, 2025 Dr. Breonna Lui MD Attending Provider Active Start: April 21, 2025 End: April 21, 2025 Dr. Breonna Lui MD Referring Provider Active Start: April 21, 2025 End: April 21, 2025 Team Status: Inactive Member Role/Relationship Status Dates Dr. Mateo Marmolejo MD Primary Care Provider Active Start: April 26, 2025 End: April 26, 2025 Dr. Breonna Lui MD Attending Provider Active Start: April 26, 2025 End: April 26, 2025 Dr. Breonna Lui MD Referring Provider Active Start: April 26, 2025 End: April 26, 2025 Team Status: Active Member Role/Relationship Status Dates Dr. Mateo Marmolejo MD Primary Care Provider Active Start: May 02, 2025 Dr. Kasi Eugene MD Attending Provider Active Start: May 02, 2025 Dr. Kasi Eugene MD Referring Provider Active Start: May 02, 2025 Team Status: Active Member Role/Relationship Status Dates Dr. Mateo Marmolejo MD Primary Care Provider Active Start: May 02, 2025 Dr. Kasi Eugene MD Attending Provider Active Start: May 02, 2025 Dr. Kasi Eugene MD Referring Provider Active Start: May 02, 2025 Dr. Kasi Eugene MD Other Provider Active Star t: May 02, 2025 Team Status: Inactive Member Role/Relationship Status Dates Dr. Mateo Marmolejo MD Primary Care Provider Active Start: May 04, 2025 End: May 04, 2025 Dr. Mateo Marmolejo MD Referring Provider Active Start: May 04, 2025 End: May 04, 2025 Dr. Shayla Fay DO Attending Provider Activ e Start: May 04, 2025 End: May 04, 2025 Team Status: Inactive Member Role/Relationship Status Dates Dr. Mateo Marmolejo MD Primary Care Provider Active Start: May 04, 2025 End: May 04, 2025 Dr. Shayla Fay DO Attending Provider Activ e Start: May 04, 2025 End: May 04, 2025 Dr. Shayla Fay DO Referring Provider Activ e Start: May 04, 2025 End: May 04, 2025 Roller Printer Relationship Specialty Start Date End Date Mateo Marmolejo MD [address] [facility] [place] [id number] PCP - General Family Medicine 08/27/18 Ramiro Dominguez, SUZY.FINISHING TUNNEL OPERATOR [address] [place] [address] Stock Broker Supervisor Family Medicine 03/28/25 Alida Jaeger PA-C [address] [facility] [place] [id number] Stock Broker Supervisor Family Medicine 03/28/25 Sarah Ying MD [address] [facility] [place] [id number] Stock Broker Supervisor Geriatrics 05/10/25 Roller Printer Relationship Specialty Start Date End Date Mateo Marmolejo MD [address] [facility] [place] [address] PCP - General Family Medicine 08/27/18 Ramiro Dominguez, REAL ESTATE DEVELOPER.FINISHING TUNNEL OPERATOR [address] [facility] [id number] Stock Broker Supervisor Family Medicine 03/28/25 Alida Jaeger PA-C [address] [facility] [place] [address] Stock Broker Supervisor Family Medicine 03/28/25 Sarah Ying MD [address] [facility] [place] [address] Stock Broker Supervisor Geriatrics 05/10/25 Team Status: Inactive Member Role/Relationship Status Dates Dr. Mateo Marmolejo MD Primary Care Provider Active Start: January 31, 2025 End: January 31, 2025 Dr. Mateo Marmolejo MD Referring Provider Active Start: January 31, 2025 End: January 31, 2025 Dr. Shayla Fay DO Attending Provider Activ e Start: January 31, 2025 End: January 31, 2025 Team Status: Inactive Member Role/Relationship Status Dates Dr. Mateo Marmolejo MD Primary Care Provider Active Start: April 01, 2025 End: April 01, 2025 Dr. Mateo Marmolejo MD Referring Provider Active Start: April 01, 2025 End: April 01, 2025 Dr. Kasi Eugene MD Attending Provider Active Start: April 01, 2025 End: April 01, 2025 Team Status: Active Member Role/Relationship Status Dates Dr. Mateo Marmolejo MD Primary Care Provider Active Start: April 11, 2025 Dr. Kasi Eugene MD Attending Provider Active Start: April 11, 2025 Dr. Kasi Eugene MD Referring Provider Active Start: April 11, 2025 Dr. Kasi Eugene MD Other Provider Active Star t: April 11, 2025 Team Status: Inactive Member Role/Relationship Status Dates Dr. Mateo Marmolejo MD Primary Care Provider Active Start: April 18, 2025 End: April 18, 2025 Dr. Kasi Eugene MD Attending Provider Active Start: April 18, 2025 End: April 18, 2025 Dr. Kasi Eugene MD Referring Provider Active Start: April 18, 2025 End: April 18, 2025 Team Status: Inactive Member Role/Relationship Status Dates Dr. Mateo Marmolejo MD Primary Care Provider Active Start: April 18, 2025 End: April 25, 2025 Dr. Kasi Eugene MD Attending Provider Active Start: April 18, 2025 End: April 25, 2025 Dr. Kasi Eugene MD Referring Provider Active Start: April 18, 2025 End: April 25, 2025 Team Status: Active Member Role/Relationship Status Dates Dr. Mateo Marmolejo MD Primary Care Provider Active Start: April 18, 2025 Dr. Kasi Eugene MD Attending Provider Active Start: April 18, 2025 Dr. Kasi Eugene MD Referring Provider Active Start: April 18, 2025 Dr. Kasi Eugene MD Other Provider Active Star t: April 18, 2025 Team Status: Inactive Member Role/Relationship Status Dates Dr. Mateo Marmolejo MD Primary Care Provider Active Start: April 21, 2025 End: April 21, 2025 Dr. Mateo Marmolejo MD Referring Provider Active Start: April 21, 2025 End: April 21, 2025 Julia Rankin SWITCH CREW SUPERVISOR, SWITCH CREW SUPERVISOR-C Attending Provider Active Start: April 21, 2025 End: April 21, 2025 Team Status: Inactive Member Role/Relationship Status Dates Dr. Mateo Marmolejo MD Primary Care Provider Active Start: April 21, 2025 End: April 21, 2025 Dr. Breonna Lui MD Attending Provider Active Start: April 21, 2025 End: April 21, 2025 Dr. Breonna Lui MD Referring Provider Active Start: April 21, 2025 End: April 21, 2025 Team Status: Inactive Member Role/Relationship Status Dates Dr. Mateo Marmolejo MD Primary Care Provider Active Start: April 26, 2025 Dr. Jackelin Ochoa MD Attending Provider Active Start: April 26, 2025 Team Status: Inactive Member Role/Relationship Status Dates Dr. Mateo Marmolejo MD Primary Care Provider Active Start: April 26, 2025 End: April 26, 2025 Dr. Breonna Lui MD Attending Provider Active Start: April 26, 2025 End: April 26, 2025 Dr. Breonna Lui MD Referring Provider Active Start: April 26, 2025 End: April 26, 2025 Team Status: Active Member Role/Relationship Status Dates Dr. Mateo Marmolejo MD Primary Care Provider Active Start: May 02, 2025 Dr. Kasi Eugene MD Attending Provider Active Start: May 02, 2025 Dr. Kasi Eugene MD Referring Provider Active Start: May 02, 2025 Dr. Kasi Eugene MD Other Provider Active Star t: May 02, 2025 Team Status: Inactive Member Role/Relationship Status Dates Dr. Mateo Marmolejo MD Primary Care Provider Active Start: May 04, 2025 End: May 04, 2025 Dr. Mateo Marmolejo MD Referring Provider Active Start: May 04, 2025 End: May 04, 2025 Dr. Shayla Fay DO Attending Provider Activ e Start: May 04, 2025 End: May 04, 2025 Team Status: Inactive Member Role/Relationship Status Dates Dr. Mateo Marmolejo MD Primary Care Provider Active Start: May 04, 2025 End: May 04, 2025 Dr. Shayla Fay , Attending Provider Activ e Start: May 04, 2025 End: May 04, 2025 Dr. Shayla Fay DO Referring Provider Activ e Start: May 04, 2025 End: May 04, 2025 Team Status: Inactive Member Role/Relationship Status Dates Dr. Mateo Marmolejo MD Primary Care Provider Active Start: May 13, 2025 End: May 26, 2025 Dr. Kasi Euegne MD Attending Provider Active Start: May 13, 2025 End: May 26, 2025 Dr. Kasi Eugene MD Referring Provider Active Start: May 13, 2025 End: May 26, 2025 Roller Printer Relationship Specialty Start Date End Date Mateo Marmolejo MD [address] [place], [place] [id number] PCP - General Family Medicine 08/27/18 Ramiro Dominguez APRN.CNP [address] [place], [place] [id number] [facility] 03/28/25 Alida Jaeger PA-C [address] [place], [place] [id number] [facility] 03/28/25 Team Status: Inactive Member Role/Relationship Status Dates Dr. Mateo Marmolejo MD Primary Care Provider Active Start: April 01, 2025 End: April 01, 2025 Dr. Mateo Marmolejo MD Referring Provider Active Start: April 01, 2025 End: April 01, 2025 Dr. Kasi Eugene MD Attending Provider Active Start: April 01, 2025 End: April 01, 2025 Team Status: Active Member Role/Relationship Status Dates Dr. Mateo Marmolejo MD Primary Care Provider Active Start: April 11, 2025 Dr. Kasi Eugene MD Attending Provider Active Start: April 11, 2025 Dr. Kasi Eugene MD Referring Provider Active Start: April 11, 2025 Dr. Kasi Eugene MD Other Provider Active Star t: April 11, 2025 Team Status: Inactive Member Role/Relationship Status Dates Dr. Mateo Marmolejo MD Primary Care Provider Active Start: April 18, 2025 End: April 18, 2025 Dr. Kasi Eugene MD Attending Provider Active Start: April 18, 2025 End: April 18, 2025 Dr. Kasi Eugene MD Referring Provider Active Start: April 18, 2025 End: April 18, 2025 Team Status: Inactive Member Role/Relationship Status Dates Dr. Mateo Marmolejo MD Primary Care Provider Active Start: April 18, 2025 End: April 25, 2025 Dr. Kasi Eugene MD Attending Provider Active Start: April 18, 2025 End: April 25, 2025 Dr. Kasi Eugene MD Referring Provider Active Start: April 18, 2025 End: April 25, 2025 Team Status: Active Member Role/Relationship Status Dates Dr. Mateo Marmolejo MD Primary Care Provider Active Start: April 18, 2025 Dr. Kasi Eugene MD Attending Provider Active Start: April 18, 2025 Dr. Kasi Eugene MD Referring Provider Active Start: April 18, 2025 Dr. Kasi Eugene MD Other Provider Active Star t: April 18, 2025 Team Status: Inactive Member Role/Relationship Status Dates Dr. Mateo Marmolejo MD Primary Care Provider Active Start: April 21, 2025 End: April 21, 2025 Dr. Mateo Marmolejo MD Referring Provider Active Start: April 21, 2025 End: April 21, 2025 Julia Rankin SWITCH CREW SUPERVISOR, SWITCH CREW SUPERVISOR-C Attending Provider Active Start: April 21, 2025 End: April 21, 2025 Team Status: Inactive Member Role/Relationship Status Dates Dr. Mateo Marmolejo MD Primary Care Provider Active Start: April 21, 2025 End: April 21, 2025 Dr. Breonna Lui MD Attending Provider Active Start: April 21, 2025 End: April 21, 2025 Dr. Breonna Lui MD Referring Provider Active Start: April 21, 2025 End: April 21, 2025 Team Status: Inactive Member Role/Relationship Status Dates Dr. Mateo Marmolejo MD Primary Care Provider Active Start: April 26, 2025 Dr. Jackelin Ochoa MD Attending Provider Active Start: April 26, 2025 Team Status: Inactive Member Role/Relationship Status Dates Dr. Mateo Marmolejo MD Primary Care Provider Active Start: April 26, 2025 End: April 26, 2025 Dr. Breonna Lui MD Attending Provider Active Start: April 26, 2025 End: April 26, 2025 Dr. Breonna Lui MD Referring Provider Active Start: April 26, 2025 End: April 26, 2025 Team Status: Active Member Role/Relationship Status Dates Dr. Mateo Marmolejo MD Primary Care Provider Active Start: May 02, 2025 Dr. Kasi Eugene MD Attending Provider Active Start: May 02, 2025 Dr. Kasi Eugene MD Referring Provider Active Start: May 02, 2025 Dr. Kasi Eugene MD Other Provider Active Star t: May 02, 2025 Team Status: Inactive Member Role/Relationship Status Dates Dr. Mateo Marmolejo MD Primary Care Provider Active Start: May 04, 2025 End: May 04, 2025 Dr. Mateo Marmolejo MD Referring Provider Active Start: May 04, 2025 End: May 04, 2025 Dr. Shayla Fay DO Attending Provider Activ e Start: May 04, 2025 End: May 04, 2025 Team Status: Inactive Member Role/Relationship Status Dates Dr. Mateo Marmolejo MD Primary Care Provider Active Start: May 04, 2025 End: May 04, 2025 Dr. Shayla Fay DO Attending Provider Activ e Start: May 04, 2025 End: May 04, 2025 Dr. Shayla Fay DO Referring Provider Activ e Start: May 04, 2025 End: May 04, 2025 Team Status: Inactive Member Role/Relationship Status Dates Dr. Mateo Marmolejo MD Primary Care Provider Active Start: May 13, 2025 End: May 26, 2025 Dr. Kasi Eugene MD Attending Provider Active Start: May 13, 2025 End: May 26, 2025 Dr. Kasi Eugene MD Referring Provider Active Start: May 13, 2025 End: May 26, 2025 Team Status: Inactive Member Role/Relationship Status Dates Dr. Mateo Marmolejo MD Primary Care Provider Active Start: June 10, 2025 End: June 26, 2025 Dr. Kasi Eugene MD Referring Provider Active Start: June 10, 2025 End: June 26, 2025 Dr. Rachna Galvez DO Attending Provider Active St art: June 10, 2025 End: June 26, 2025 Roller Printer Relationship Specialty Start Date End Date Mateo Marmolejo MD [address] [place], [place] [id number] PCP - General Family Medicine 08/27/18 Ramiro Dominguez APRN.CNP [address] [place], [place] [id number] Stock Broker Supervisor [facility] 03/28/25 Alida Jaeger PA-C [address] [place], [place] [id number] Stock Broker Supervisor [facility] 03/28/25 Team Status: Active Member Role/Relationship Status Dates Dr. Mateo Marmolejo MD Primary care physician Active Team Status: Inactive Member Role/Relationship Status Dates Dr. Mateo Marmolejo MD Primary care physician Active Start: April 01, 2025 End: April 01, 2025 Dr. Mateo Marmolejo MD Referring Provider Active Start: April 01, 2025 End: April 01, 2025 Dr. Kasi Eugene MD Attending physician Active Start: April 01, 2025 End: April 01, 2025 Team Status: Active Member Role/Relationship Status Dates Dr. Mateo Marmolejo MD Primary care physician Active Start: April 11, 2025 Dr. Kasi Eugene MD Attending physician Active Start: April 11, 2025 Dr. Kasi Eugene MD Referring Provider Active Start: April 11, 2025 Dr. Kasi Eugene MD Nurse Practitioner Active Start: April 11, 2025 Team Status: Inactive Member Role/Relationship Status Dates Dr. Mateo Marmolejo MD Primary care physician Active Start: April 18, 2025 End: April 18, 2025 Dr. Kasi Eugene MD Attending physician Active Start: April 18, 2025 End: April 18, 2025 Dr. Kasi Eugene MD Referring Provider Active Start: April 18, 2025 End: April 18, 2025 Team Status: Inactive Member Role/Relationship Status Dates Dr. Mateo Marmolejo MD Primary care physician Active Start: April 18, 2025 End: April 25, 2025 Dr. Kasi Eugene MD Attending physician Active Start: April 18, 2025 End: April 25, 2025 Dr. Kasi Eugene MD Referring Provider Active Start: April 18, 2025 End: April 25, 2025 Team Status: Active Member Role/Relationship Status Dates Dr. Mateo Marmolejo MD Primary care physician Active Start: April 18, 2025 Dr. Kasi Eugene MD Attending physician Active Start: April 18, 2025 Dr. Kasi Eugene MD Referring Provider Active Start: April 18, 2025 Dr. Kasi Eugene MD Nurse Practitioner Active Start: April 18, 2025 Team Status: Inactive Member Role/Relationship Status Dates Dr. Mateo Marmolejo MD Primary care physician Active Start: April 21, 2025 End: April 21, 2025 Dr. Mateo Marmolejo MD Referring Provider Active Start: April 21, 2025 End: April 21, 2025 Julia Rankin NP, [employer] Attending physician Active Start: April 21, 2025 End: April 21, 2025 Team Status: Inactive Member Role/Relationship Status Dates Dr. Mateo Marmolejo MD Primary care physician Active Start: April 21, 2025 End: April 21, 2025 Dr. Breonna Lui MD Attending physician Active Start: April 21, 2025 End: April 21, 2025 Dr. Breonna Lui MD Referring Provider Active Start: April 21, 2025 End: April 21, 2025 Team Status: Inactive Member Role/Relationship Status Dates Dr. Mateo Marmolejo MD Primary care physician Active Start: April 26, 2025 Dr. Jackelin Ochoa MD Attending physician Active Start: April 26, 2025 Team Status: Inactive Member Role/Relationship Status Dates Dr. Mateo Marmolejo MD Primary care physician Active Start: April 26, 2025 End: April 26, 2025 Dr. Breonan Lui MD Attending physician Active Start: April 26, 2025 End: April 26, 2025 Dr. Breonna Lui MD Referring Provider Active Start: April 26, 2025 End: April 26, 2025 Team Status: Active Member Role/Relationship Status Dates Dr. Mateo Marmolejo MD Primary care physician Active Start: May 02, 2025 Dr. Kasi Eugene MD Attending physician Active Start: May 02, 2025 Dr. Kasi Eugene MD Referring Provider Active Start: May 02, 2025 Dr. Kasi Eugene MD Nurse Practitioner Active Start: May 02, 2025 Team Status: Inactive Member Role/Relationship Status Dates Dr. Mateo Marmolejo MD Primary care physician Active Start: May 04, 2025 End: May 04, 2025 Dr. Mateo Marmolejo MD Referring Provider Active Start: May 04, 2025 End: May 04, 2025 Dr. Shayla Fay DO Attending physician Acti ve Start: May 04, 2025 End: May 04, 2025 Team Status: Inactive Member Role/Relationship Status Dates Dr. Mateo Marmolejo MD Primary care physician Active Start: May 04, 2025 End: May 04, 2025 Dr. Shayla Fay DO Attending physician Acti ve Start: May 04, 2025 End: May 04, 2025 Dr. Shayla Fay DO Referring Provider Activ e Start: May 04, 2025 End: May 04, 2025 Team Status: Inactive Member Role/Relationship Status Dates Dr. Mateo Marmolejo MD Primary care physician Active Start: May 13, 2025 End: May 26, 2025 Dr. Kasi Eugene MD Attending physician Active Start: May 13, 2025 End: May 26, 2025 Dr. Kasi Eugene MD Referring Provider Active Start: May 13, 2025 End: May 26, 2025 Team Status: Inactive Member Role/Relationship Status Dates Dr. Mateo Marmolejo MD Primary care physician Active Start: June 10, 2025 End: June 26, 2025 Dr. Kasi Eugene MD Referring Provider Active Start: June 10, 2025 End: June 26, 2025 Dr. Rachna Galvez DO Attending physician Active S tart: June 10, 2025 End: June 26, 2025 Team Status: Inactive Member Role/Relationship Status Dates Dr. Mateo Marmolejo MD Primary care physician Active Start: July 08, 2025 End: July 26, 2025 Dr. Kasi Eugene MD Referring Provider Active Start: July 08, 2025 End: July 26, 2025 Dr. Rachna Galvez DO Attending physician Active S tart: July 08, 2025 End: July 26, 2025 INFORMATION SOURCE (unrecogn ized section and content) DATE CREATED AUTHOR 05/12/2024 DATE CREATED AUTHOR AUTHOR'S ORGANIZ ATION 12/26/2024 [facility] DATE CREATED AUTHOR AUTHOR'S ORGANIZ ATION 08/07/2025 [facility] DATE CREATED AUTHOR AUTHOR'S ORGANIZ ATION 08/07/[address] [facility] Goals (unrecognized section and content) Goals may be documented in a n alternate sectionGoals may be documented in an alternate section No Information AvailableGoals may be documented in an alternate section FOR RECORDS PERTAINING TO PATIENTS WHO ARE OR HAVE BEEN ENROLLED IN A CHEMICAL DEPENDENCY/SUBSTANCEABUSE PROGRAM, SOME INFORMATION MAY BE OMITTED. This clinical summary was aggregated from multiple sources. Caution should be exercised in using it in the provision of clinical care. This summary normalizes information from multiple sources, and as a consequence, information in this document may materially change the coding, format and clinical context of patient data. In addition, data may be omitted in some cases. CLINICAL DECISIONS SHOULD BE BASED ON THE PRIMARY CLINICAL RECORDS. [employer] provides no warranty or guarantee of the accuracy or completeness of information in this document.
--- NOTE | 2025-08-15 18:10 | ED.RN ---
Report called to ICU
--- NOTE | 2025-08-15 19:11 | PCM.RX.CS ---
Consult Antibiotic Management Pharmacy has been consulted to manage selected antibiotic: Vancomycin Type of Intervention Type of Consult: New Suspected Infection Suspected Infection: Skin/Soft tissue Labs Labs: Sodium 127 mmol/L (133-145) L 08/15/25 11:56 Potassium 4.7 mmol/L (3.3-5.1) 08/15/25 11:56 Chloride 96 mmol/L (98-108) L 08/15/25 11:56 Carbon Dioxide 17.0 mmol/L (21.0-32.0) L 08/15/25 11:56 Anion Gap 13 (5-15) 08/15/25 11:56 BUN 55 mg/dL (4-19) H 08/15/25 11:56 Creatinine 2.68 mg/dL (0.70-1.20) H 08/15/25 11:56 Est GFR (MDRD) Non-Af 18 (>60) L 08/15/25 11:56 BUN/Creatinine Ratio 20.6 RATIO (10-20) H 08/15/25 11:56 Glucose 136 mg/dL (70-99) H 08/15/25 11:56 Dosing Weight Weight used for dosin.2 kg Estimated Creatinine Clearance Estimated Creatinine Clearance: 15.5 Goal Trough Goal Trough: 15-20 mcg/mL Pharmacy Plan for Drug Dosing Pharmacy Plan for Drug Dosing: Pharmacy Service will continue to monitor and adjust dosing as required. NEW IV VANCOMYCIN Consulting Physician: Dr. Keene Indication: Cellulitis Goal Trough: 15-20 SrCr: 2.68 CrCl: 15.5 Comments: SCr normally about 0.8 for this patient, currently presenting with JOSH. Will monitor changes in renal function closely. Vancomycin Dose: 750 mg Q24H with first dose 08/16/25 @ 1400 Pending Level: 08/17/25 @ 1330 Date/Time Labs Ordered Labs to be done on [date and time ordered]: 08/17/25 @ 1335
[2025-08-15] MEDS: 0.9% Normal Saline (500mL Bag) 500 ML 999 ML IV (19:41)
[2025-08-15] MEDS: 0.9% Saline Lock 10 ML Syringe IV ×3 (19:45→23:36)
[2025-08-15 20:23] LABS: Staph aureus DNA By PCR NEGATIVE (Negative)
[2025-08-15] MEDS: 0.9% Normal Saline (1000mL) 1,000 ML 75 ML IV (20:23)
[2025-08-15] MEDS: MELATONIN 10 MG TABLET PO (21:27)
--- NOTE | 2025-08-15 23:10 | PCM.HOSP.N ---
Hospitalist Note Notified that her SBPs are trending low to mid 70s. Ordered 25gm albumin x1 and started midodrine as she is reportedly a difficult IV start. She currently has a 22g and a 20g PIV. Hold off on norepinephrine d/t poor vascular access. Order placed for PICC insertion/evaluation tomorrow.
[2025-08-15] MEDS: Albumin Human 25% (100 mL) 25 GM/100 ML BAG IV (23:35)
[2025-08-16] VITALS (41 sets, daily range): BP systolic 79–143; BP diastolic 46–70; PULSE 50–100; RESP 12–26; TEMP 36.6–37.3; O2SAT 96–100; BMI 33.3
[2025-08-16] MEDS: 0.9% Normal Saline (1000mL) 1,000 ML 999 ML IV (00:48)
[2025-08-16] MEDS: Norepinephrine 8 MG in 0.9% Normal Saline (250mL Bag) 242 ML 9.4 MG CONT INF (04:39)
[2025-08-16] MEDS: 0.9% Saline Lock 10 ML Syringe IV (04:42)
[2025-08-16 04:44] LABS: Hematocrit 25.5 % (37-47); Hemoglobin 9.0 g/dL (12.0-15.0); Immature Granulocytes Count 0.030 X10^3/uL (0.0-0.0); Mean Corp Hgb Conc 35.3 g/dL (32-36); Mean Corpuscular Volume 90.4 fL (81-99); Mean Platelet Vol. 9.1 fl (6.2-12.0); NRBC Flagged by Analyzer 0 % (0-5); POSITIVE DIFFERENTIAL YES; Platelet Count 134 K/mm3 (150-450); RBC Distribution Width CV 13.9 % (11.6-14.6); RBC Distribution Width SD 46.1 fl (35.1-43.9); Red Blood Count 2.82 M/mm3 (4.2-5.4); White Blood Count 4.6 K/mm3 (4.4-11.0)
[2025-08-16 05:12] LABS: Magnesium 2.0 mg/dL (1.5-2.2)
[2025-08-16 05:15] LABS: AST(SGOT) 56 U/L (<=31); Alanine Aminotransfer ALT/SGPT 77 U/L (<=34); Albumin, Serum 3.1 g/dL (3.4-4.8); Alkaline Phosphatase 58 U/L (35-104); Anion Gap 11 (5-15); BUN 33 mg/dL (4-19); BUN/Creat Ratio 23.7 RATIO (10-20); Calcium,Total 8.2 mg/dL (7.6-11.0); Carbon Dioxide 14.9 mmol/L (21.0-32.0); Chloride 111 mmol/L (98-108); Estimated Creatinine Clearance 30.54 ml/min (50-250); Globulin 1.6 g/dL (2.2-4.2); Glucose 84 mg/dL (70-99); Potassium 4.0 mmol/L (3.3-5.1)
[2025-08-16] MEDS: 0.9% Normal Saline (1000mL) 1,000 ML 200 ML IV (05:42)
--- NOTE | 2025-08-16 07:26 | PCM.PN.HOSP ---
Reason for Visit Chief Complaint: Low blood pressure Objective Data Objective Data Vital Signs: Vital Signs Temp Pulse Resp BP Pulse Ox O2 Del Method 97.8 F 100 23 H 109/70 98 Room Air 08/15/25 17:00 08/16/25 07:00 08/16/25 07:00 08/16/25 07:00 08/16/25 07:00 08/16/25 07:00 Oxygen Delivery Method Room Air Weight: 165 lb 2.02 oz Body Mass Index (BMI) 33.3 Intake & Output: Intake and Output for Last 24 Hours 08/14/25 08/15/25 08/16/25 23:59 23:59 23:59 Intake Total 4235 / 4235 2119.74 / 2119.74 Output Total 2100 / 2100 Balance 4235 / 3435 19.74 / 19.74 Lab / Micro Data 08/16/25 04:35 08/16/25 04:35 Labs: Laboratory Results - last 24 hr 08/15/25 11:56: WBC 5.2, RBC 3.41 L, Hgb 10.8 L, Hct 30.8 L, MCV 90.3, MCH 31.7, MCHC 35.1, RDW Std Deviation 46.1 H, RDW Coeff of Gisela 14.0, Plt Count 173, MPV 9.8, Immature Gran % (Auto) 0.400, Neut % (Auto) 83.3 H, Lymph % (Auto) 5.4 L, Dodge % (Auto) 9.9, Eos % (Auto) 0.8, Baso % (Auto) 0.2, Absolute Neuts (auto) 4.3, Absolute Lymphs (auto) 0.28 L, Nucleated RBC % 0, PT 13.8, INR 1.0, APTT 31.1, Sodium 127 L, Potassium 4.7, Chloride 96 L, Carbon Dioxide 17.0 L, Anion Gap 13, BUN 55 H, Creatinine 2.68 H, Estim Creat Clear Calc 15.47 L, Est GFR (MDRD) Non-Af 18 L, BUN/Creatinine Ratio 20.6 H, Glucose 136 H, Lactic Acid 1.0, Calcium 8.9, Total Bilirubin 0.47, AST 72 H, ALT 91 H, Alkaline Phosphatase 73, Total Protein 5.4 L, Albumin 3.5, Globulin 1.9 L, Albumin/Globulin Ratio 1.8 10/20/25 13:10: Urine Color Yellow, Urine Clarity Clear, Urine pH 5.0, Ur Specific [place] 1.010, Urine Protein 15 H, Urine Glucose (UA) Normal, Urine Ketones Negative, Urine Occult Blood 10 H, Urine Nitrite Negative, Urine Bilirubin Negative, Urine Urobilinogen Normal, Ur Leukocyte Esterase Negative, Urine RBC 0-5 SEEN, Urine WBC 0-5 SEEN, Ur Squamous Epith Cells 0-5 SEEN, Urine Bacteria 0 SEEN, Hyaline Casts 0-5 SEEN, Urine Mucus 1+ 08/15/25 18:35: S.aureus Protein A PCR NEGATIVE, MRSA (PCR) Negative 08/16/25 04:35: WBC 4.6, RBC 2.82 L, Hgb 9.0 L, Hct 25.5 L, MCV 90.4, MCH 31.9, MCHC 35.3, RDW Std Deviation 46.1 H, RDW Coeff of Gisela 13.9, Plt Count 134 L, MPV 9.1, Immature Gran % (Auto) 0.700, Neut % (Auto) 77.0 H, Lymph % (Auto) 10.5 L, Dodge % (Auto) 9.6, Eos % (Auto) 2.0, Baso % (Auto) 0.2, Absolute Neuts (auto) 3.5, Absolute Lymphs (auto) 0.48 L, Nucleated RBC % 0, Sodium 136, Potassium 4.0, Chloride 111 H, Carbon Dioxide 14.9 L, Anion Gap 11, BUN 33 H, Creatinine 1.39 H, Estim Creat Clear Calc 30.54 L, Est GFR (MDRD) Non-Af 39 L, BUN/Creatinine Ratio 23.7 H, Glucose 84, Calcium 8.2, Magnesium 2.0, Total Bilirubin 0.35, AST 56 H, ALT 77 H, Alkaline Phosphatase 58, Total Protein 4.8 L, Albumin 3.1 L, Globulin 1.6 L, Albumin/Globulin Ratio 1.9 Radiography Diagnostic Testing: Radiology Impression Pelvis CT 08/15/25 14:35 IMPRESSION: Findings suggestive of residual thickening of the right labia majora towards the mid and inferior portions. A tiny amount of air is seen within its suggestive of recent drainage. Reading Location: [id number] Physical Exam Narrative Patient was seen and examined in the presence of patient's RNMikey Patient complained of generalized weakness and headache and discharged prior to admission. Cannot give exact history regarding the duration of groin infection and discharge but seems chronic intermittent. Currently on Levophed drip. Denies fever. No history of his smoking or alcohol use. Physical exam General: Alert, Oriented x3, Cooperative. BMI 33.4 kg/m? HEENT: Atraumatic, PERRLA, EOMI, Normocephalic. Oral: No Gingival or Mucosal Lesions/ Ulcerations Neck: Supple, No JVD, Negative Carotid Bruits Chest wall/Lungs: Air entry diminished in bilateral lung bases. No crepitation/rhonchi Cardiovascular: Heart rate variable 50s to 100 partner. No M/G/R Abdomen: Bowel Sounds Present, Soft, Non Tender, Non-Distended : No dysuria. Examined in presence of nurse. Right labia thickened with copious amount of purulent discharge on pressing by the nurse. Tenderness erythema surrounding right and left labia and groin region. Extremities: No edema, Capillary Refill Less than 3 Seconds Skin: Localized erythema, induration and cellulitis over right groin more than left groin Musculoskeletal: No Tenderness to Palpation of Joints or Extremities Neurological: Cranial nerves II-XII grossly intact, DTR 2+/4. No acute focal neurological deficit. Psych/Mental Status: Normal Affect, Appropriate. Skin: Right labia thickened, superior area with small amount of pus drainage, erythema surrounding other areas without any overt drainage appreciated Assessment & Plan Assessment/Plan (1) Sepsis: QUALIFIERS: Sepsis acute organ dysfunction status: unspecified Sepsis type: sepsis due to unspecified organism Qualified Code(s): A41.9 - Sepsis, unspecified organism PLAN: Plan 75-year-old female known to [employer] service for labial cellulitis with history of hidradenitis suppurativa, follows wound center and plastic was admitted for hypotension, generalized weakness, headache and wound on the on the groin/right labia area with soreness and bloody discharge. No fever. # Sepsis suspect secondary to right labial cellulitis in the setting of hidradenitis suppurativa - Patient with hypotension, tachypnea, bicarb of 17 with renal failure with a creatinine of 2.68 up from baseline of around 0.9 with neutrophil predominance on CBC with suspected source right labial lesion - Sepsis protocol was followed with 30 mL of IV fluid bolus, broad-spectrum antibiotics and blood culture. UA looks benign and not consistent with UTI. Dressing. [employer] consult reviewed. - Patient started on vancomycin and Unasyn in the ED and this was continued 08/16: [employer] consult note reviewed. No surgical drainage or debridement indicated as per online education manager. During my round, there was copious discharge on pressing on the right labia majora/mons pubis region. Wound culture sent. Tenderness present. I feel, needs adequate incision and drainage as patient is on IV Levophed drip. I talked to [facility] Dr. Liu and told her that is not dispensed recently draining and needs adequate drainage as she is on Levophed drip. She states she will let Dr. Rosa to take care of it. ID, plastic surgery and director of recreation therapy also consulted # Acute kidney injury due to septic shock/prerenal - Baseline creatinine around 0.9, creatinine now 2.68 on 05/04/2025. -Hold home Lasix as well as home spironolactone and lisinopril 08/16 admitting BUN/creatinine 55/2.68. Creatinine improvement from 2.68-1.39. Continue holding above nephrotoxic medications. IV fluid resuscitation. # Hyponatremia - Possibly secondary to volume depletion - Appears patient averages in the mid 130s - On presentation sodium 127 - Continue IV fluids -08/16: Repeat serum sodium 136 #Diarrhea - Unclear etiology, denies any significant abdominal pain, has some vague complaints on deep palpation but no alarm signs 08/16: Stool studies are pending. #Gout -Continue home allopurinol #Hypertension - Hold home antihypertensives due to hypotension # Cognitive impairment -Supportive care -Continue home medications #Hypothyroidism -Continue Synthroid #DVT ppx: SCDs Charges/Coding Visit Charges Inpatient E&M: 95040 [facility] L3
--- NOTE | 2025-08-16 09:07 | CT_ITS ---
PROCEDURE: PELVIS WITH IV CONTRAST 08/16/2025 REASON FOR EXAM: SUSPECTED NEC FASITIS RIGHT LABIA/GENITAL REGION TECHNIQUE: Procedure Code: CTPELW Modality: CT Procedure: PELVIS WITH IV CONTRAST CONTRAST: Isovue 370 VOLUME: 100 mL One or more dose reduction techniques were used (e.g., Automated exposure control, adjustment of the mA and/or kV according to patient size, use of iterative reconstruction technique). RADIATION DOSE SUMMARY: CTDlvol: 37.08 mGy DLP: 1312.92 mGycm COMPARISON: Prior study dated August 15, 2025. FINDINGS: Once again, there is soft tissue prominence of the right labia majora. This has increased in size presently measuring 1.9 cm by 4.2 cm. Tiny air bubble is seen within it. There is no evidence of necrotizing fasciitis at this time. Bladder: A Blackmon catheter is seen within the urinary bladder. The urinary bladder is decompressed. Reproductive Organs: Fibroid uterus. Bowel: Colonic diverticulosis without diverticulitis. Vasculature: Mild diffuse atherosclerotic calcifications are noted. Bones: Status post bilateral hip replacement. CT/Pelvis WITH IV Contrast IMPRESSION: Mild progression of the soft tissue prominence of the right labia majora as flavia cribed. There is no evidence of necrotizing fasciitis at this time. Reading Location: [place] [id number]
--- NOTE | 2025-08-16 09:07 | EX.PCM.CONCC ---
Assessment & Plan Assessment/Plan (1) Sepsis: PLAN: Plan RECOMMENDATIONS: 1. Continue empiric antimicrobials as ordered. 2. If any clinical decompensation occurs, recommend transfer to a tertiary care facility. 3. Infectious diseases consultation is pending. 4. Stop continuous IV fluids. 5. Continue vasopressor support and continue to wean as tolerated. 6. Increase midodrine to 10 mg 3 times daily. 7. Initiate appropriate ICU prophylaxis. IMPRESSIONS: 1. Septic shock Clinical concern for right labial abscess/cellulitis. Given the air noted on initial CT pelvis, the concern would be for that of a gas producing organism and possible necrotizing infection. However, follow-up CT pelvis this morning failed to demonstrate evidence of necrotizing fasciitis. Cultures are currently pending. Recommend continuing broad-spectrum antimicrobials with vancomycin, Zosyn and clindamycin, pending evaluation by infectious diseases. The case was discussed with OIL RECOVERY OPERATOR, plastic surgery and general surgery. If the patient were to decompensate clinically, transfer to a tertiary care facility would be indicated. In the interim, scheduled midodrine will also be continued. Levophed will be continued in an attempt to maintain hemodynamic stability. 2. Acute kidney injury/non anion gap metabolic acidosis Most likely prerenal in etiology in the setting of #1. Creatinine has improved with volume expansion. At this time, however, the patient is becoming hyperchloremic and has been more than adequately volume resuscitated. Therefore, normal saline will be discontinued. I do suspect her acidosis is likely the consequence of overzealous normal saline administration, coupled with recent diarrheal illness. Will continue to monitor clinically. 3. History of cognitive impairment/hypertension/hypothyroidism Complicates care, management, recovery and prognosis. Continue supportive measures as noted above. TIME: 38 minutes of critical care time, independent of procedures, was spent addressing the patient's septic shock, acute kidney injury, review of all data and collaboration with the care team. HPI Consult Data Date of Consult: 08/16/25 HPI Narrative Reason for Consultation: Sepsis HPI Narrative: The patient is a 75-year-old female, with a history as outlined below, who presented to the emergency department for the evaluation of hypotension, which was noted by the patient's wound care nurse. The patient has a known history of hypertension, hypothyroidism and hidradenitis suppurativa, which has been managed by the wound care center. The patient was also apparently evaluated by plastic surgery, who subsequently referred the patient to dermatology. The patient has been managed with p.o. doxycycline on an outpatient basis. On presentation to the emergency department, the patient was documented to be afebrile with a presenting blood pressure of 89/51 mmHg. She was maintaining appropriate oxygen saturations on room air. Laboratory evaluation revealed a normal white blood cell count. Hemoglobin and platelet count were stable. Coagulation profile was unremarkable. Chemistry profile was notable for a sodium of 127 with a chloride of 96, bicarbonate of 17, BUN of 55 and creatinine of 2.68. Lactate was within normal limits. Urine analysis was unremarkable. The original CT pelvis demonstrated thickening of the right labia majora with a tiny amount of air suggestive of recent drainage. The patient was ultimately ordered to receive IV fluid resuscitation per sepsis protocol and was started on broad-spectrum antimicrobials. She was admitted to the medical intensive care unit for further management. Regarding the small amount of air that was noted on CT pelvis from yesterday, I did call and speak with infectious diseases and subsequently changed the patient's antibiotics to vancomycin, Zosyn and clindamycin, pending culture results. In addition, I did reach back out to OIL RECOVERY OPERATOR, who recommended discussing the case with plastic surgery. I did call and speak with Dr. Eugene, who ultimately recommended that I discussed the case with general surgery. Lastly, I did speak with Dr. Puente of general surgery regarding my concerns that the patient could have an underlying necrotizing infection. However, CT imaging that was repeated this morning failed to demonstrate evidence of necrotizing fasciitis. General surgery did recommend that if the patient declines clinically that she should be transferred to a tertiary care facility. [facility] Medical History Post-menopausal Depression Anxiety Dementia Open wound Arthritis Non-smoker Shortness of breath on exertion Urinary incontinence Gout Hypothyroid High cholesterol HTN (hypertension) Home Medications ?Medication ?Instructions ?Recorded ?Last Taken ?Type amlodipine 10 mg tablet (Norvasc) 10 mg PO DAILY BLOOD PRESSURE 08/06/24 08/15/25 History pravastatin 10 mg tablet 10 mg PO QHS 08/06/24 08/14/25 History allopurinol 300 mg tablet 300 mg PO QDAY FOR GOUT 12/10/24 08/15/25 History donepezil 10 mg tablet (Aricept) 10 mg PO DAILY 08/15/25 08/14/25 History doxycycline monohydrate 100 mg 100 mg PO DAILY 08/15/25 08/14/25 History tablet furosemide 20 mg tablet (Lasix) 20 mg PO DAILY EDEMA 08/15/25 08/15/25 History levothyroxine 150 mcg tablet 150 mcg PO DAILY 08/15/25 08/14/25 History (Synthroid) lisinopril 40 mg tablet 40 mg PO DAILY BLOOD PRESSURE 08/15/25 08/15/25 History spironolactone 100 mg tablet 100 mg PO DAILY 08/15/25 08/14/25 History Allergy/AdvReac Type Severity Reaction Status Date / Time Latex, Natural Rubber Allergy Mild Rash Verified 08/15/25 11:20 Family History Father Colon cancer Mother Hypertension Surgical History S/P D&C (status post dilation and curettage) Status post amputation of finger S/P bladder repair History of left hip replacement H/O thyroidectomy History of right hip replacement Social History household members: none Smoking Status: Never smoker additional social history: Single ROS ROS Narrative 10 systems were reviewed with pertinent positives as noted in the HPI above. Physical Exam Const alert and no apparent distress Constitutional Narrative: The patient appears quite comfortable, resting in bed. General Appearance: cooperative HEENT normocephalic and head/scalp atraumatic Eyes PERRL, EOMs intact bilaterally and conjunctivae normal Neck supple General: trachea midline Chest inspection of chest normal Resp normal respiratory effort Auscultation: Negative for rales, rhonchi or wheezes Cardio regular rate and regular rhythm GI normal to inspection, nondistended, normoactive bowel sounds Narrative: Draining right labial wound Extremity no clubbing, cyanosis or edema Neuro CN's II-XII intact bilaterally, moves all extremities and no focal motor deficits Psych cooperative and affect normal Lab / Micro Data 08/16/25 04:35 08/16/25 04:35 Labs: Laboratory Results - last 24 hr 08/15/25 11:56: WBC 5.2, RBC 3.41 L, Hgb 10.8 L, Hct 30.8 L, MCV 90.3, MCH 31.7, MCHC 35.1, RDW Std Deviation 46.1 H, RDW Coeff of Gisela 14.0, Plt Count 173, MPV 9.8, Immature Gran % (Auto) 0.400, Neut % (Auto) 83.3 H, Lymph % (Auto) 5.4 L, [place] % (Auto) 9.9, Eos % (Auto) 0.8, Baso % (Auto) 0.2, Absolute Neuts (auto) 4.3, Absolute Lymphs (auto) 0.28 L, Nucleated RBC % 0, PT 13.8, INR 1.0, APTT 31.1, Sodium 127 L, Potassium 4.7, Chloride 96 L, Carbon Dioxide 17.0 L, Anion Gap 13, BUN 55 H, Creatinine 2.68 H, Estim Creat Clear Calc 15.47 L, Est GFR (MDRD) Non-Af 18 L, BUN/Creatinine Ratio 20.6 H, Glucose 136 H, Lactic Acid 1.0, Calcium 8.9, Total Bilirubin 0.47, AST 72 H, ALT 91 H, Alkaline Phosphatase 73, Total Protein 5.4 L, Albumin 3.5, Globulin 1.9 L, Albumin/Globulin Ratio 1.8 08/15/25 13:10: Urine Color Yellow, Urine Clarity Clear, Urine pH 5.0, Ur Specific [place] 1.010, Urine Protein 15 H, Urine Glucose (UA) Normal, Urine Ketones Negative, Urine Occult Blood 10 H, Urine Nitrite Negative, Urine Bilirubin Negative, Urine Urobilinogen Normal, Ur Leukocyte Esterase Negative, Urine RBC 0-5 SEEN, Urine WBC 0-5 SEEN, Ur Squamous Epith Cells 0-5 SEEN, Urine Bacteria 0 SEEN, Hyaline Casts 0-5 SEEN, Urine Mucus 1+ 08/15/25 18:35: S.aureus Protein A PCR NEGATIVE, MRSA (PCR) Negative 08/16/25 04:35: WBC 4.6, RBC 2.82 L, Hgb 9.0 L, Hct 25.5 L, MCV 90.4, MCH 31.9, MCHC 35.3, RDW Std Deviation 46.1 H, RDW Coeff of Gisela 13.9, Plt Count 134 L, MPV 9.1, Immature Gran % (Auto) 0.700, Neut % (Auto) 77.0 H, Lymph % (Auto) 10.5 L, [place] % (Auto) 9.6, Eos % (Auto) 2.0, Baso % (Auto) 0.2, Absolute Neuts (auto) 3.5, Absolute Lymphs (auto) 0.48 L, Nucleated RBC % 0, Sodium 136, Potassium 4.0, Chloride 111 H, Carbon Dioxide 14.9 L, Anion Gap 11, BUN 33 H, Creatinine 1.39 H, Estim Creat Clear Calc 30.54 L, Est GFR (MDRD) Non-Af 39 L, BUN/Creatinine Ratio 23.7 H, Glucose 84, Calcium 8.2, Magnesium 2.0, Total Bilirubin 0.35, AST 56 H, ALT 77 H, Alkaline Phosphatase 58, Total Protein 4.8 L, Albumin 3.1 L, Globulin 1.6 L, Albumin/Globulin Ratio 1.9 Micro: Microbiology 08/15/25 13:10 Urine, Catheterized Urine Culture - Preliminary Presumptive E. coli 08/15/25 18:35 Wound - Pelvic Wound Culture - Preliminary Gram negative jina GNR lactose press cleaner Imaging Radiology Impression Pelvis CT 08/15/25 14:35 IMPRESSION: Findings suggestive of residual thickening of the right labia majora towards the mid and inferior portions. A tiny amount of air is seen within its suggestive of recent drainage. Reading Location: [facility]1 Charges/Coding Procedures Hospitalists Procedures: 22648 Critical Care 1st Hr
--- NOTE | 2025-08-16 09:42 | PCM.RX.CS ---
Consult Antibiotic Management Pharmacy has been consulted to manage selected antibiotic: Vancomycin Type of Intervention Type of Consult: Follow-up Suspected Infection Suspected Infection: Skin/Soft tissue Labs Labs: Sodium 136 mmol/L (133-145) 08/16/25 04:35 Potassium 4.0 mmol/L (3.3-5.1) 08/16/25 04:35 Chloride 111 mmol/L (98-108) H 08/16/25 04:35 Carbon Dioxide 14.9 mmol/L (21.0-32.0) L 08/16/25 04:35 Anion Gap 11 (5-15) 08/16/25 04:35 BUN 33 mg/dL (4-19) H 08/16/25 04:35 Creatinine 1.39 mg/dL (0.70-1.20) H 08/16/25 04:35 Est GFR (MDRD) Non-Af 39 (>60) L 08/16/25 04:35 BUN/Creatinine Ratio 23.7 RATIO (10-20) H 08/16/25 04:35 Glucose 84 mg/dL (70-99) 08/16/25 04:35 Microbiology Microbiology: Microbiology 08/15/25 18:35 Wound - Pelvic Wound Culture - Preliminary Gram negative jina GNR lactose product sales representative 08/15/25 13:10 Urine, Catheterized Urine Culture - Preliminary Presumptive E. coli Estimated Creatinine Clearance Estimated Creatinine Clearance: 30.54 Goal Trough Goal Trough: 15-20 mcg/mL Pharmacy Plan for Drug Dosing Pharmacy Plan for Drug Dosing: DAILY ASSESSMENT Current Vancomycin Dose: 750mg Q24H Number of Doses Received: 1750mg x1 loading dose Current Renal Function: sCr 1.39 Renal Function Trend: improved since admission Lab/Micro: pending Any Change in Vanc Plan: Yes - increase Vancomycin dosing regimen to 1000mg Q24H Pending Level: 08/18/25 @ 13:30 Pharmacy Service will continue to monitor and adjust dosing as required. Follow-Up Labs Follow-Up Labs: Trough: Vancomycin (08/18/25 @ 13:30)
--- NOTE | 2025-08-16 10:03 | CASEMGMT ---
Per ICU rounds, ID has been consulted regarding pt's ATB needs moving forward. CM to continue to follow for DC planning needs.
--- NOTE | 2025-08-16 10:20 | CON.PCM_ITS ---
Assessment & Plan Assessment/Plan (1) Hidradenitis suppurativa: (2) JOSH (acute kidney injury): PLAN: Recent development of decrease in kidney function, was pending outpatient urology referral. eGFR around ~39 as early as June bloodwork. UA with trace proteinuria and 3+ WBC, negative bacteria. (3) Acute hypotension: PLAN: Plan No surgical intervention indicated at this time. Her acute hypotension and JOSH is likely secondary to recent GI illness with decreased oral intake and subsequent UTI. She does not have a chronic indwelling catheter prior to her hospitalization so her prelim UA results with 25k-50k CFU/ml E.coli raises suspicion for UTI. Her CT pelvis with contrast on 08/15 compared to repeat today is largely unchanged. There is no drainable collection and the lesion hasn't changed in characteristic recently. Her clinical symptoms, lab findings and imaging results are not consistent with necrotizing fasciitis. -Respiratory panel ordered given precipitating flu like symptoms. Stool test was ordered by primary. -Agree with continuing broad spectrum IV antibiotics. 08/16 Wound stain and cultures prelim shows 3+ WBC, no organism thus far. 08/15 prelim shows gram pos 1+, GNR 1+. Blood cultures pending. Will continue to follow as she remains inpatient. HPI Consult Data Date of Consult: 08/16/25 HPI Narrative Reason for Consultation: Sepsis with known HS HPI Narrative: Patient is a 75 year-old female who was evaluated in the ICU at the request of Dr. Fay. She is known to Plastic surgery department for known hidradenitis suppurative of bilateral vulva last seen in [facility] by Dr. Eugene in April,. Patient was referred for evaluation by [employer] Administrative Tech who has been following the patient. Past medical history significant for dementia, anxiety, depression, urinary incontinence, hypertension, hypothyroidism. She presented to the ED on 08/15/25 via EMS with acute hypotension after repeat BP checks on both arms by homehealth nursing on 08/15/25. HH see her for her vulvar HS lesions. She was last seen by Dr. Galvez at the wound center on 08/05. She is on Doxycycline chronically. Patient lives alone with brother visiting her periodically. HPI gathered from the patient and confirmed with brother. She states since a few days prior to her hospitalization she's been feeling easily fatigued, feverish, chills, decreased appetite, nausea, and diarrhea and dizziness. She was supposed to go grocery shopping on 08/13 with her brother but due to not feeling well she postponed it a day. She was also have jaw pain on both sides causing headaches with chewing only. In combination of not having an appetite, jaw pain, and feeling nauseous she hasn't been eating nor drinking very much. She noted she didn't need to change her depends as often as she wasn't urinating as often. She denies sore throat, cough, abdominal pain, dysuria, foul smelling urine, back pain. She states her vulva drainage and swelling is unchanged as she states she checks this often herself by squeezing the area. She states since her hospitalization she has not had jaw pain, dizziness. Her stool was normal today and her appetite is improving. She was able to tolerate breakfast and didn't have any nausea. Of note she is followed by her PCP Dr. Avalos [facility] who has been following her kidney function which has been abnormal. Her potassium was noted to be slightly elevated as well and she was instructed to discontinue her potassium. She was pending urology referral for her urinary incontinence as well. [facility] Medical History Post-menopausal Depression Anxiety Dementia Open wound Arthritis Non-smoker Shortness of breath on exertion Urinary incontinence Gout Hypothyroid High cholesterol HTN (hypertension) Home Medications ?Medication ?Instructions ?Recorded ?Last Taken ?Type amlodipine 10 mg tablet (Norvasc) 10 mg PO DAILY BLOOD PRESSURE 08/06/24 08/15/25 History pravastatin 10 mg tablet 10 mg PO QHS 08/06/24 History allopurinol 300 mg tablet 300 mg PO QDAY FOR GOUT 11/2708/15/25 History donepezil 10 mg tablet (Aricept) 10 mg PO DAILY 08/14/25 History doxycycline monohydrate 100 mg 100 mg PO DAILY 5 08/14/25 History tablet furosemide 20 mg tablet (Lasix) 20 mg PO DAILY EDEMA 1 08/15/25 History levothyroxine 150 mcg tablet 150 mcg PO DAILY 08/15/25 08/14/25 History (Synthroid) lisinopril 40 mg tablet 40 mg PO DAILY BLOOD PRESSUR E 08/15/25 08/15/25 History spironolactone 100 mg tablet 100 mg PO DAILY 08/15/25 08/14/25 History Allergy/AdvReac Type Severity Reaction Status Date / Time Latex, Natural Rubber Allergy Mild Rash Verified 08/15/25 11:20 Family History Father Colon cancer Mother Hypertension Surgical History S/P D&C (status post dilation and curettage) Status post amputation of finger S/P bladder repair History of left hip replacement H/O thyroidectomy History of right hip replacement Social History household members: none Smoking Status: Never smoker additional social history: Single ROS ROS Narrative General: Denies fever, chills HEENT: Denies headaches, vision changes, sore throat Cardio: Denies chest pain, leg edema Pulmonary: Denies shortness of pain, cough, wheezing GI: Denies nausea, vomiting, diarrhea Physical Exam Narrative Hypotensive 92/47, HR 88, RR 18, O2 sat 98% on RA Alert and oriented to person place, situation. Speech is clear, intact appropriate. Pupils are round, reactive. EOMI tracks finger. No nystagmus No facial asymmetry, TMJs are nontender to palpation bilaterally. Sensation to face intact bilaterally No pronator drift, lifts bilateral arms and legs off the bed grossly to normal strength Abdomen is nontender, soft in all 4 quadrants Right labial with multiple tracks throughout with about [id number] firm scarring, not fluctuant, pus noted on skin but unable to locate specific opening with expressive drainage. No induration, no increased erythema. Left labia no swelling, no palpable swelling. No fluctuance noted. No animal bites or scratches noted on hands or legs. Blackmon catheter in place and patent with yellow urine, not purulent appearing Lab / Micro Data 08/16/25 04:35 08/16/25 04:35 Labs: Laboratory Results - last 24 hr 08/15/25 11:56: WBC 5.2, RBC 3.41 L, Hgb 10.8 L, Hct 30.8 L, MCV 90.3, MCH 31.7, MCHC 35.1, RDW Std Deviation 46.1 H, RDW Coeff of Gisela 14.0, Plt Count 173, MPV 9.8, Immature Gran % (Auto) 0.400, Neut % (Auto) 83.3 H, Lymph % (Auto) 5.4 L, [place] % (Auto) 9.9, Eos % (Auto) 0.8, Baso % (Auto) 0.2, Absolute Neuts (auto) 4.3, Absolute Lymphs (auto) 0.28 L, Nucleated RBC % 0, PT 13.8, INR 1.0, APTT 31.1, Sodium 127 L, Potassium 4.7, Chloride 96 L, Carbon Dioxide 17.0 L, Anion Gap 13, BUN 55 H, Creatinine 2.68 H, Estim Creat Clear Calc 15.47 L, Est GFR (MDRD) Non-Af 18 L, BUN/Creatinine Ratio 20.6 H, Glucose 136 H, Lactic Acid 1.0, Calcium 8.9, Total Bilirubin 0.47, AST 72 H, ALT 91 H, Alkaline Phosphatase 73, Total Protein 5.4 L, Albumin 3.5, Globulin 1.9 L, Albumin/Globulin Ratio 1.8 08/15/25 13:10: Urine Color Yellow, Urine Clarity Clear, Urine pH 5.0, Ur Specific [place] 1.010, Urine Protein 15 H, Urine Glucose (UA) Normal, Urine Ketones Negative, Urine Occult Blood 10 H, Urine Nitrite Negative, Urine Bilirubin Negative, Urine Urobilinogen Normal, Ur Leukocyte Esterase Negative, Urine RBC 0-5 SEEN, Urine WBC 0-5 SEEN, Ur Squamous Epith Cells 0-5 SEEN, Urine Bacteria 0 SEEN, Hyaline Casts 0-5 SEEN, Urine Mucus 1+ 08/15/25 18:35: S.aureus Protein A PCR NEGATIVE, MRSA (PCR) Negative 08/16/25 04:35: WBC 4.6, RBC 2.82 L, Hgb 9.0 L, Hct 25.5 L, MCV 90.4, MCH 31.9, MCHC 35.3, RDW Std Deviation 46.1 H, RDW Coeff of Gisela 13.9, Plt Count 134 L, MPV 9.1, Immature Gran % (Auto) 0.700, Neut % (Auto) 77.0 H, Lymph % (Auto) 10.5 L, [place] % (Auto) 9.6, Eos % (Auto) 2.0, Baso % (Auto) 0.2, Absolute Neuts (auto) 3.5, Absolute Lymphs (auto) 0.48 L, Nucleated RBC % 0, Sodium 136, Potassium 4.0, Chloride 111 H, Carbon Dioxide 14.9 L, Anion Gap 11, BUN 33 H, Creatinine 1.39 H, Estim Creat Clear Calc 30.54 L, Est GFR (MDRD) Non-Af 39 L, B UN/Creatinine Ratio 23.7 H, Glucose 84, Calcium 8.2, Magnesium 2.0, Total Bilirubin 0.35, AST 56 H, ALT 77 H, Alkaline Phosphatase 58, Total Protein 4.8 L , Albumin 3.1 L, Globulin 1.6 L, Albumin/Globulin Ratio 1.9 Micro: Microbiology 08/15/25 18:35 Wound - Pelvic Wound Culture - Preliminary Gram negative jina GNR 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 coli Imaging Radiology Impression Pelvis CT 08/15/25 14:35 IMPRESSION: Findings suggestive of residual thickening of the right labia majora towards the mid and inferior portions. A tiny amount of air is seen within its suggestive of recent drainage. Reading Location: [facility]--[address] 08/16/25 09:07 IMPRESSION: Mild progression of the soft tissue prominence of the right labia majora as described. There is no evidence of necrotizing fasciitis at this time. Reading Location: [facility] Charges/Coding Visit Charges Inpatient E&M: 09382 Init Hosp L2
[2025-08-16] MEDS: Clindamycin 300 MG in Dextrose 5%-Water (50mL Bag) 50 ML 150 MG IV ×2 (11:19→16:56)
[2025-08-16] MEDS: Piperacil/Tazobactam 3.375 GM in 0.9% Normal Saline (50mL MB+) 50 ML IV ×2 (11:52→21:38)
[2025-08-16] MEDS: Vancomycin HCl 1,000 MG in 0.9% Normal Saline (250mL Bag) 250 ML 250 MG IV (13:40)
[2025-08-16] MEDS: FLU VACCINE HIGH DOSE 25-26(65YR UP) 180 MCG/0.5 ML SYRINGE IM (14:07)
--- NOTE | 2025-08-16 14:11 | PCM.CONS.GEN ---
Assessment & Plan Assessment/Plan (1) Septic shock: PLAN: septic shock with R labial abscess - wound cx pending, BP, JOSH, and exam improved. Feeling better. Air seen in tissue on CT. Would continue with vanc/zosyn/clinda for now. Will follow, thank you, d/w Dr. Moody and nursing at bedside (2) Vulvar abscess: HPI Consult Data Date of Consult: 08/16/25 HPI Narrative Reason for Consultation: septic shock HPI Narrative: JAIRON DECKER, is a 75 F with h/o hidradenitis, dementia, presented with several months progressive wounds in bilateral inguinal areas. Had several days not feeling well, cough, dyspnea, sore throat. No fever or chills. Came to ED, transferred to icu, seen by motion picture photographer for labial abscess. Having drainage, pain improved, has been able to come off pressors. Full ROS performed and neg except as noted above. PENDING SALE TO [facility] Medical History Post-menopausal Depression Anxiety Dementia Open wound Arthritis Non-smoker Shortness of breath on exertion Urinary incontinence Gout Hypothyroid High cholesterol HTN (hypertension) Home Medications ?Medication ?Instructions ?Recorded ?Last Taken ?Type amlodipine 10 mg tablet (Norvasc) 10 mg PO DAILY BLOOD PRESSURE 08/06/24 08/15/25 History pravastatin 10 mg tablet 10 mg PO QHS 08/06/24 08/14/25 History allopurinol 300 mg tablet 300 mg PO QDAY FOR GOUT 12/10/24 08/15/25 History donepezil 10 mg tablet (Aricept) 10 mg PO DAILY 08/15/25 08/14/25 History doxycycline monohydrate 100 mg 100 mg PO DAILY 08/15/25 08/14/25 History tablet furosemide 20 mg tablet (Lasix) 20 mg PO DAILY EDEMA 08/15/25 08/15/25 History levothyroxine 150 mcg tablet 150 mcg PO DAILY 08/15/25 08/14/25 History (Synthroid) lisinopril 40 mg tablet 40 mg PO DAILY BLOOD PRESSURE 08/15/25 08/15/25 History spironolactone 100 mg tablet 100 mg PO DAILY 08/15/25 08/14/25 History Allergy/AdvReac Type Severity Reaction Status Date / Time Latex, Natural Rubber Allergy Mild Rash Verified 08/15/25 11:20 Family History Father Colon cancer Mother Hypertension Surgical History S/P D&C (status post dilation and curettage) Status post amputation of finger S/P bladder repair History of left hip replacement H/O thyroidectomy History of right hip replacement Social History household members: none Smoking Status: Never smoker additional social history: Single Physical Exam Const alert and no apparent distress General Appearance: cooperative HEENT normocephalic and head/scalp atraumatic Eyes PERRL and EOMs intact bilaterally Neck supple and No nodes Resp normal air movement and clear to auscultation bilaterally Cardio regular rate, regular rhythm and no murmurs GI soft to palpation, non-tender and non-distended Extremity General Extremity: Negative for edema Skin Skin Narrative: R labial induration, drainage, redness Neuro CN's II-XII intact bilaterally Lab / Micro Data Attestation: I reviewed the patient's lab results. 08/16/25 04:35 08/16/25 04:35 Labs: Laboratory Results - last 24 hr 08/15/25 18:35: S.aureus Protein A PCR NEGATIVE, MRSA (PCR) Negative 08/16/25 04:25: TSH 2.750 08/16/25 04:35: WBC 4.6, RBC 2.82 L, Hgb 9.0 L, Hct 25.5 L, MCV 90.4, MCH 31.9, MCHC 35.3, RDW Std Deviation 46.1 H, RDW Coeff of Gisela 13.9, Plt Count 134 L, MPV 9.1, Immature Gran % (Auto) 0.700, Neut % (Auto) 77.0 H, Lymph % (Auto) 10.5 L, [place] % (Auto) 9.6, Eos % (Auto) 2.0, Baso % (Auto) 0.2, Absolute Neuts (auto) 3.5, Absolute Lymphs (auto) 0.48 L, Nucleated RBC % 0, Sodium 136, Potassium 4.0, Chloride 111 H, Carbon Dioxide 14.9 L, Anion Gap 11, BUN 33 H, Creatinine 1.39 H, Estim Creat Clear Calc 30.54 L, Est GFR (MDRD) Non-Af 39 L, BUN/Creatinine Ratio 23.7 H, Glucose 84, Calcium 8.2, Magnesium 2.0, Total Bilirubin 0.35, AST 56 H, ALT 77 H, Alkaline Phosphatase 58, Total Protein 4.8 L, Albumin 3.1 L, Globulin 1.6 L, Albumin/Globulin Ratio 1.9 Micro: Microbiology 08/16/25 05:57 Stool Enteric Bacteriology - Final 08/16/25 08:05 Wound - Other Gram Stain - Final 08/15/25 18:35 Wound - Pelvic Gram Stain - Final 08/15/25 18:35 Wound - Pelvic Wound Culture - Preliminary Gram negative jina GNR lactose flight technician 08/15/25 13:10 Urine, Catheterized Urine Culture - Preliminary Presumptive E. coli Imaging Radiology Impression Pelvis CT 08/15/25 14:35 IMPRESSION: Findings suggestive of residual thickening of the right labia majora towards the mid and inferior portions. A tiny amount of air is seen within its suggestive of recent drainage. Reading Location: [facility] 08/16/25 09:07 IMPRESSION: Mild progression of the soft tissue prominence of the right labia majora as described. There is no evidence of necrotizing fasciitis at this time. [facility]
--- NOTE | 2025-08-16 17:26 | PCM.PN.OB ---
Subjective Subjective Late entry from 12:30 pm 08/16/25: Patient is sleeping and awakens easily with my voice. She states that she wants to go home and seems confused why she is here. This seems to be her baseline behavior however. When asked if the vaginal/vulvar pain is worse than it ever has been she states that it feels better than it has in the past. She seems to be more fixated on getting out of the hospital to be with her 20 cats at home. She denies back pain but does state that she has the typcial rectal pain that she has always the HS. No fevers, chills, nausea, vomiting, or diarrhea. The nurse reports that after her urine was drained she had some suprapubic pressure complaint. Objective Data Objective Data Vital Signs: Vital Signs Temp Pulse Resp BP Pulse Ox O2 Del Method 99.1 F 83 22 H 132/66 H 100 Room Air 08/16/25 15:00 08/16/25 16:00 08/16/25 16:00 08/16/25 16:00 08/16/25 16:00 08/16/25 16:00 Oxygen Delivery Method Room Air Weight: 165 lb 2.02 oz Body Mass Index (BMI) 33.3 Intake & Output: Intake and Output for Last 24 Hours 08/14/25 08/15/25 08/16/25 23:59 23:59 23:59 Intake Total 4235 / 4235 3482.00 / 3482.00 Output Total 3650 / 3650 Balance 4235 / 3435 -168.00 / -168.00 Lab / Micro Data 08/16/25 04:35 08/16/25 04:35 Labs: Laboratory Results - last 24 hr 08/15/25 18:35: S.aureus Protein A PCR NEGATIVE, MRSA (PCR) Negative 08/16/25 04:25: TSH 2.750 08/16/25 04:35: WBC 4.6, RBC 2.82 L, Hgb 9.0 L, Hct 25.5 L, MCV 90.4, MCH 31.9, MCHC 35.3, RDW Std Deviation 46.1 H, RDW Coeff of Gisela 13.9, Plt Count 134 L, MPV 9.1, Immature Gran % (Auto) 0.700, Neut % (Auto) 77.0 H, Lymph % (Auto) 10.5 L, [place] % (Auto) 9.6, Eos % (Auto) 2.0, Baso % (Auto) 0.2, Absolute Neuts (auto) 3.5, Absolute Lymphs (auto) 0.48 L, Nucleated RBC % 0, Sodium 136, Potassium 4.0, Chloride 111 H, Carbon Dioxide 14.9 L, Anion Gap 11, BUN 33 H, Creatinine 1.39 H, Estim Creat Clear Calc 30.54 L, Est GFR (MDRD) Non-Af 39 L, BUN/Creatinine Ratio 23.7 H, Glucose 84, Calcium 8.2, Magnesium 2.0, Total Bilirubin 0.35, AST 56 H, ALT 77 H, Alkaline Phosphatase 58, Total Protein 4.8 L, Albumin 3.1 L, Globulin 1.6 L, Albumin/Globulin Ratio 1.9 Micro: Microbiology 08/16/25 05:57 Stool Enteric Bacteriology - Final 08/16/25 08:05 Wound - Other Gram Stain - Final 08/15/25 18:35 Wound - Pelvic Gram Stain - Final 08/15/25 18:35 Wound - Pelvic Wound Culture - Preliminary Gram negative jina GNR 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 coli Radiography Diagnostic Testing: Radiology Impression Pelvis CT 08/16/25 09:07 IMPRESSION: Mild progression of the soft tissue prominence of the right labia majora as described. There is no evidence of necrotizing fasciitis at this time. Reading Location: [address] Constitutional Constitutional: Denies body ache(s), chills or fever(s) Cardiovascular Cardiovascular: Denies abdominal pain, dizziness or dyspnea at rest Respiratory/Chest Respiratory/Chest: Denies cough Gastrointestinal Gastrointestinal: Denies diarrhea, dyspepsia or nausea Genitourinary Genitourinary: Reports genital lesions, genital pain and urinary urgency Musculoskeletal Musculoskeletal: Denies back pain Physical Exam Const alert, oriented x3 and no apparent distress General Appearance: cooperative and comfortable HEENT normocephalic Resp normal respiratory effort Effort and Inspection: able to speak in complete sentences Cardio regular rate GI soft to palpation, non-tender and non-distended Narrative: right labia with HS lesion. Some purulent material expels from the upper right labia tract. Lower fluctuant region is non-tender and not draining. Bladder / Kidney Exam: catheter in place urethral Groin / Perineum Exam: other multiple new and old HS tracts presents. scars present bilaterally External Female Exam: normal appearance of the urethra Extremity normal to inspection Skin no rashes or lesions noted Neuro Sensorium / Orientation: awake, alert, oriented to person, oriented to place and oriented to time Assessment & Plan (1) Septic shock: (2) JOSH (acute kidney injury): (3) Sepsis: (4) Acute hypotension: (5) Hidradenitis suppurativa: (6) Urinary incontinence: PLAN: Plan HS lesions appear stable from last office exam. CT does not show worsening. Do not suspect sepsis from these chronic lesions. E.coli in urine present I&D not indicated for chronic hidradenitis suppurativa. This has been discussed with plastics in the past and also today. Literature search on this also confirms no I&D's for these kinds of lesions as this only provides temporary reliefe and does not ddress the underlying chronic inflammations, sinus tracts, and follicular occlusion. Definitive surgical excision via unroofing the large sinus tracts or laser therapy with destruction of hair follicles and sinus tracts may be an option in the future, but is extensive and can not be performed at our facility. Patient should remain on doxycycline for it's antibiotic and anti-inflammatory properties. Will recommend the HS clinic at [facility] after discharge for more treatment options Charges/Coding Visit Charges Inpatient E&M: 01197 Subs Hosp L2
[2025-08-16] MEDS: MELATONIN 10 MG TABLET PO (21:38)
[2025-08-17] VITALS (14 sets, daily range): BP systolic 94–131; BP diastolic 49–96; PULSE 45–71; RESP 14–22; TEMP 36.1–36.8; O2SAT 94–100; BMI 32.3
[2025-08-17] MEDS: Clindamycin 300 MG in Dextrose 5%-Water (50mL Bag) 50 ML 150 MG IV ×3 (00:09→12:39)
[2025-08-17] MEDS: Piperacil/Tazobactam 3.375 GM in 0.9% Normal Saline (50mL MB+) 50 ML IV ×3 (05:15→21:18)
--- NOTE | 2025-08-17 09:09 | PCM.PN.HOSP ---
Reason for Visit Chief Complaint: Low blood pressure Objective Data Objective Data Vital Signs: Vital Signs Temp Pulse Resp BP Pulse Ox O2 Del Method 98.3 F 63 19 H 116/90 H 97 Room Air 08/17/25 04:00 08/17/25 07:00 08/17/25 07:00 08/17/25 07:00 08/17/25 07:00 08/17/25 07:00 Oxygen Delivery Method Room Air Weight: 160 lb 7.944 oz Body Mass Index (BMI) 32.3 Intake & Output: Intake and Output for Last 24 Hours 08/15/25 08/16/25 08/17/25 23:59 23:59 23:59 Intake Total 4235 / 4235 3534.00 / 3534.00 279 / 279 Output Total 4745 / 4745 375 / 375 Balance 4235 / 3435 -1211.00 / -1211.00 -96 / -96 Lab / Micro Data 08/16/25 04:35 08/16/25 04:35 Labs: Laboratory Results - last 24 hr 08/16/25 04:25: TSH 2.750 Micro: Microbiology 08/16/25 08:05 Wound - Other Gram Stain - Final 08/16/25 08:05 Wound - Other Wound Culture - Preliminary GNR lactose parking meter mechanic Gram negative jina 08/15/25 18:35 Wound - Pelvic Gram Stain - Final 08/15/25 18:35 Wound - Pelvic Wound Culture - Preliminary Gram negative jina GNR lactose parking meter mechanic 08/15/25 13:10 Urine, Catheterized Urine Culture - Final Presumptive E. coli 08/16/25 21:10 Mucosa - Nasopharyngeal SARS-CoV-2, Influenza & RSV (PCR) - Final 08/16/25 05:57 Stool Enteric Bacteriology - Final Radiography Diagnostic Testing: Radiology Impression Pelvis CT 08/16/25 09:07 IMPRESSION: Mild progression of the soft tissue prominence of the right labia majora as described. There is no evidence of necrotizing fasciitis at this time. Reading Location: [facility] Physical Exam Narrative Patient was seen and examined in the presence of patient's RN, Day. Labial discharge is less. No fever. Patient denies burning micturition increased frequency or urgency but she has chronic urinary incontinence. Off Levophed drip. Patient complained of generalized weakness and headache and discharged prior to admission. Cannot give exact history regarding the duration of groin infection and discharge but seems chronic intermittent. No history of his smoking or alcohol use. Physical exam General: Awake, intermittent confusion oriented x3, Cooperative. BMI 33.4 kg/m? HEENT: Atraumatic, PERRLA, EOMI, Normocephalic. Oral: No Gingival or Mucosal Lesions/ Ulcerations Neck: Supple, No JVD, Negative Carotid Bruits Chest wall/Lungs: Air entry diminished in bilateral lung bases. No crepitation/rhonchi Cardiovascular: Heart rate variable 50s to 100 partner. No M/G/R Abdomen: Bowel Sounds Present, Soft, Non Tender, Non-Distended : No dysuria, increased frequency urgency or recent change in the last 1 or 2 weeks. Right labial discharge is decreased Extremities: No edema, Capillary Refill Less than 3 Seconds Skin: Localized erythema, induration and cellulitis over right groin more than left groin, examined by CANINE SERVICE TEACHER Musculoskeletal: No Tenderness to Palpation of Joints or Extremities Neurological: Cranial nerves II-XII grossly intact, DTR 2+/4. No acute focal neurological deficit. Psych/Mental Status: Flat affect. Sometimes confused Assessment & Plan Assessment/Plan (1) Sepsis: QUALIFIERS: Sepsis type: sepsis due to unspecified organism Sepsis acute organ dysfunction status: unspecified Qualified Code(s): A41.9 - Sepsis, unspecified organism PLAN: Plan 75-year-old female known to CANINE SERVICE TEACHER service for labial cellulitis with history of hidradenitis suppurativa, [facility] wound center and plastic was admitted for hypotension, generalized weakness, headache and wound on the on the groin/right labia area with soreness and bloody discharge. No fever. # Sepsis suspect secondary to right labial cellulitis in the setting of hidradenitis suppurativa - Patient with hypotension, tachypnea, bicarb of 17 with renal failure with a creatinine of 2.68 up from baseline of around 0.9 with neutrophil predominance on CBC with suspected source right labial lesion - Sepsis protocol was followed with 30 mL of IV fluid bolus, broad-spectrum antibiotics and blood culture. UA looks benign and not consistent with UTI. Dressing. CANINE SERVICE TEACHER consult reviewed. - Patient started on vancomycin and Unasyn in the ED and this was continued 08/16: CANINE SERVICE TEACHER consult note reviewed. No surgical drainage or debridement indicated as per education counselor. During my round, there was copious discharge on pressing on the right labia majora/mons pubis region. Wound culture sent. Tenderness present. I feel, needs adequate incision and drainage as patient is on IV Levophed drip. I talked to Pharmacy Resident Dr. Lui and told her that is not dispensed recently draining and needs adequate drainage as she is on Levophed drip. She states she will let Dr. Rosa to take care of it. ID, plastic surgery and dining server also consulted 08/17: ID consult reviewed. On IV Zosyn and clindamycin. Wound culture from 08/15 and 08/16 are growing GNR lactose parking meter mechanic. Urine culture presented with E. coli 25,000?50,000 colonies which is in nonpathologic range. Moreover, patient does not have acute lower urinary tract symptoms therefore UTI ruled out. # Acute kidney injury due to septic shock/prerenal - Baseline creatinine around 0.9, creatinine now 2.68 on 05/04/2025. -Hold home Lasix as well as home spironolactone and lisinopril 08/16 admitting BUN/creatinine 55/2.68. Creatinine improvement from 2.68-1.39. Continue holding above nephrotoxic medications. IV fluid resuscitation. 08/17 monitor kidney function. Labs ordered # Hyponatremia - Possibly secondary to volume depletion - Appears patient averages in the mid 130s - On presentation sodium 127 - Continue IV fluids -08/16: Repeat serum sodium 136 #Diarrhea - Unclear etiology, denies any significant abdominal pain, has some vague complaints on deep palpation but no alarm signs 08/16: Stool studies are pending. #Gout -Continue home allopurinol #Hypertension - Hold home antihypertensives due to hypotension # Cognitive impairment -Supportive care -Continue home medications #Hypothyroidism -Continue Synthroid #DVT ppx: SCDs Charges/Coding Visit Charges Inpatient E&M: 95033 [facility] Hosp L3
--- NOTE | 2025-08-17 09:18 | PCM.PN.OB ---
Subjective Subjective patient awake and more alert, feels comfortbale no complaints Objective Data Objective Data Vital Signs: Vital Signs Temp Pulse Resp BP Pulse Ox O2 Del Method 98.3 F 63 19 H 116/90 H 97 Room Air 08/17/25 04:00 08/17/25 07:00 08/17/25 07:00 08/17/25 07:00 08/17/25 07:00 08/17/25 07:00 Oxygen Delivery Method Room Air Weight: 160 lb 7.944 oz Body Mass Index (BMI) 32.3 Intake & Output: Intake and Output for Last 24 Hours 08/15/25 08/16/25 08/17/25 23:59 23:59 23:59 Intake Total 4235 / 4235 3534.00 / 3534.00 279 / 279 Output Total 4745 / 4745 375 / 375 Balance 4235 / 3435 -1211.00 / -1211.00 -96 / -96 Lab / Micro Data 08/17/25 10:25 08/17/25 10:25 Labs: Laboratory Results - last 24 hr 08/16/25 04:25: TSH 2.750 Micro: Microbiology 08/16/25 08:05 Wound - Other Gram Stain - Final 08/16/25 08:05 Wound - Other Wound Culture - Preliminary GNR lactose paver operator Gram negative jina 08/15/25 18:35 Wound - Pelvic Gram Stain - Final 08/15/25 18:35 Wound - Pelvic Wound Culture - Preliminary Gram negative jina GNR lactose paver operator 08/15/25 13:10 Urine, Catheterized Urine Culture - Final Presumptive E. coli 08/16/25 21:10 Mucosa - Nasopharyngeal SARS-CoV-2, Influenza & RSV (PCR) - Final 08/16/25 05:57 Stool Enteric Bacteriology - Final Radiography Diagnostic Testing: Radiology Impression Pelvis CT 08/16/25 09:07 IMPRESSION: Mild progression of the soft tissue prominence of the right labia majora as described. There is no evidence of necrotizing fasciitis at this time. Reading Location: [address] Constitutional Constitutional: Denies body ache(s), chills or fever(s) Cardiovascular Cardiovascular: Denies abdominal pain, dizziness or dyspnea at rest Respiratory/Chest Respiratory/Chest: Denies cough Gastrointestinal Gastrointestinal: Denies diarrhea, dyspepsia or nausea Musculoskeletal Musculoskeletal: Denies back pain Physical Exam Const alert and no apparent distress General Appearance: cooperative and comfortable HEENT normocephalic Resp normal respiratory effort Effort and Inspection: able to speak in complete sentences Cardio regular rate GI soft to palpation, non-tender and non-distended Assessment & Plan (1) Septic shock: (2) JOSH (acute kidney injury): (3) Sepsis: (4) Acute hypotension: (5) Hidradenitis suppurativa: (6) Urinary incontinence: PLAN: Plan clinical status improving today uti present and being treated I&D not indicated for chronic hidradenitis suppurativa. appreciate plastics involvement also following peripherally at present Will recommend the HS clinic at [facility] after discharge for more treatment options Charges/Coding Visit Charges Inpatient E&M: 70913 Subs Hosp L2
--- NOTE | 2025-08-17 09:58 | PN.CC_ITS ---
Assessment & Plan Assessment/Plan (1) Sepsis: PLAN: Plan RECOMMENDATIONS: 1. Continue empiric antimicrobials per ID recommendations. 2. Recommend rechecking basic labs today. 3. Continue appropriate ICU prophylaxis. 4. Encourage incentive spirometer use and mobilize patient as tolerated. 5. The patient is medically stable for transfer out of the intensive care unit. Will sign off at this time. IMPRESSIONS: 1. Septic shock Resolved. Clinical concern for right labial abscess/cellulitis. Given the air noted on initial CT pelvis, the concern would be for that of a gas producing organism and possible necrotizing infection. However, follow-up CT pelvis this morning failed to demonstrate evidence of necrotizing fasciitis. The patient has improved clinically with supportive care. Plan to continue antimicrobials per ID recommendations. The patient has been weaned from vasopressor support and remains hemodynamically stable. 2. Acute kidney injury/non anion gap metabolic acidosis Most likely prerenal in etiology in the setting of #1. Creatinine has improved with volume expansion. However, the patient became hyperchloremic and has been more than adequately volume resuscitated. I do suspect her acidosis is likely the consequence of overzealous normal saline administration, coupled with recent diarrheal illness. Will continue to monitor clinically. Repeat BMP will be obtained. 3. History of cognitive impairment/hypertension/hypothyroidism Complicates care, management, recovery and prognosis. Continue supportive measures as noted above. This note was generated with [employer] dictation software. It may contain incorrect words, spelling, and punctuation that were not noted in checking the note before signing. Subjective Subjective The patient was seen and examined at the bedside this morning. Events from the last 24 hours have been reviewed. The patient is currently afebrile, hemodynamically stable and maintaining appropriate oxygen saturations on room air. The patient was weaned off of Levophed completely yesterday. Objective Data Objective Data The patient's most recent lab work, culture data and imaging studies have all been personally reviewed. Wound cultures are pending. Vital Signs: Vital Signs Temp Pulse Resp BP Pulse Ox O2 Del Method 97.5 F L 71 19 H 107/64 100 Room Air 08/17/25 08:45 08/17/25 08:45 08/17/25 08:45 08/17/25 08:45 08/17/25 08:45 08/17/25 08:45 Oxygen Delivery Method Room Air Weight: 160 lb 7.944 oz Body Mass Index (BMI) 32.3 Intake & Output: Intake and Output for Last 24 Hours 08/15/25 08/16/25 08/17/25 23:59 23:59 23:59 Intake Total 4235 / 4235 3534.00 / 3534.00 399 / 399 Output Total 4745 / 4745 475 / 475 Balance 4235 / 3435 -1211.00 / -1211.00 -76 / -76 Lab / Micro Data Attestation: I reviewed the patient's lab results. 08/16/25 04:35 08/16/25 04:35 Labs: Laboratory Results - last 24 hr 08/16/25 04:25: TSH 2.750 Micro: Microbiology 08/16/25 08:05 Wound - Other Gram Stain - Final 08/16/25 08:05 Wound - Other Wound Culture - Preliminary GNR lactose material requisitioner Gram negative jina 08/15/25 18:35 Wound - Pelvic Gram Stain - Final 08/15/25 18:35 Wound - Pelvic Wound Culture - Preliminary Gram negative jina GNR lactose material requisitioner 08/15/25 13:10 Urine, Catheterized Urine Culture - Final Presumptive E. coli 08/16/25 21:10 Mucosa - Nasopharyngeal SARS-CoV-2, Influenza & RSV (PCR) - Final 08/16/25 05:57 Stool Enteric Bacteriology - Final Physical Exam Const alert and no apparent distress Constitutional Narrative: Sitting in bedside recliner. General Appearance: cooperative HEENT normocephalic and head/scalp atraumatic Eyes PERRL, EOMs intact bilaterally and conjunctivae normal Neck supple General: trachea midline Chest inspection of chest normal Resp normal respiratory effort Auscultation: Negative for rales, rhonchi or wheezes Cardio regular rate and regular rhythm GI normal to inspection, nondistended, normoactive bowel sounds Narrative: Draining right labial wound Extremity no clubbing, cyanosis or edema Neuro CN's II-XII intact bilaterally, moves all extremities and no focal motor deficits Psych cooperative and affect normal Charges/Coding Visit Charges Inpatient E&M: 75727 Subs Hosp L3
[2025-08-17 10:44] LABS: Hematocrit 28.5 % (37-47); Hemoglobin 9.8 g/dL (12.0-15.0); Immature Granulocytes Count 0.030 X10^3/uL (0.0-0.0); Mean Corp Hgb Conc 34.4 g/dL (32-36); Mean Corpuscular Volume 91.9 fL (81-99); Mean Platelet Vol. 9.5 fl (6.2-12.0); NRBC Flagged by Analyzer 0 % (0-5); Platelet Count 184 K/mm3 (150-450); RBC Distribution Width CV 14.4 % (11.6-14.6); RBC Distribution Width SD 48.1 fl (35.1-43.9); Red Blood Count 3.10 M/mm3 (4.2-5.4); White Blood Count 6.2 K/mm3 (4.4-11.0)
[2025-08-17 11:23] LABS: AST(SGOT) 42 U/L (<=31); Alanine Aminotransfer ALT/SGPT 72 U/L (<=34); Albumin, Serum 3.4 g/dL (3.4-4.8); Alkaline Phosphatase 90 U/L (35-104); Anion Gap 10 (5-15); BUN 19 mg/dL (4-19); BUN/Creat Ratio 14.5 RATIO (10-20); Calcium,Total 8.7 mg/dL (7.6-11.0); Carbon Dioxide 17.6 mmol/L (21.0-32.0); Chloride 109 mmol/L (98-108); Estimated Creatinine Clearance 33.30 ml/min (50-250); Globulin 1.9 g/dL (2.2-4.2); Glucose 104 mg/dL (70-99); Potassium 3.9 mmol/L (3.3-5.1)
[2025-08-17] MEDS: 0.9% Saline Lock 10 ML Syringe IV (13:43)
[2025-08-17] MEDS: Vancomycin HCl 1,000 MG in 0.9% Normal Saline (250mL Bag) 250 ML 250 MG IV (14:38)
--- NOTE | 2025-08-17 15:49 | PCM.PN.SRG ---
Subjective Subjective Patient seen this morning with Dr. Eugene and Dorothy wound care nurse. She was attempting to have a bowel movement. She's been weaned off pressors and BPs have been stable. She was up in her chair later and states she's feeling well. She denies changes in pain or swelling of her labial HS. Urinating well and passing gas. Denies abdominal pain. Objective Data Objective Data Vital Signs: Vital Signs Temp Pulse Resp BP Pulse Ox O2 Del Method 97.0 F L 64 17 105/52 L 100 Room Air 08/17/25 12:30 08/17/25 13:00 08/17/25 12:30 08/17/25 12:30 08/17/25 12:30 08/17/25 12:30 Oxygen Delivery Method Room Air Weight: 160 lb 7.944 oz Body Mass Index (BMI) 32.3 Intake & Output: Intake and Output for Last 24 Hours 08/15/25 08/16/25 08/17/25 23:59 23:59 23:59 Intake Total 4235 / 4235 3534.00 / 3534.00 861 / 861 Output Total 4745 / 4745 625 / 625 Balance 4235 / 3435 -1211.00 / -1211.00 236 / 236 Lab / Micro Data Attestation: I reviewed the patient's lab results. Lab results narrative: Improving kidney function 08/17/25 10:25 08/17/25 10:25 Labs: Laboratory Results - last 24 hr 08/17/25 10:25: WBC 6.2, RBC 3.10 L, Hgb 9.8 L, Hct 28.5 L, MCV 91.9, MCH 31.6, MCHC 34.4, RDW Std Deviation 48.1 H, RDW Coeff of Gisela 14.4, Plt Count 184, MPV 9.5, Immature Gran % (Auto) 0.500, Neut % (Auto) 78.6 H, Lymph % (Auto) 10.4 L, [place] % (Auto) 8.0, Eos % (Auto) 2.2, Baso % (Auto) 0.3, Absolute Neuts (auto) 4.9, Absolute Lymphs (auto) 0.65 L, Nucleated RBC % 0, Sodium 137, Potassium 3.9, Chloride 109 H, Carbon Dioxide 17.6 L, Anion Gap 10, BUN 19, Creatinine 1.28 H, Estim Creat Clear Calc 33.30 L, Est GFR (MDRD) Non-Af 43 L, BUN/Creatinine Ratio 14.5, Glucose 104 H, Calcium 8.7, Total Bilirubin 0.41, AST 42 H, ALT 72 H, Alkaline Phosphatase 90, Total Protein 5.3 L, Albumin 3.4, Globulin 1.9 L, Albumin/Globulin Ratio 1.8 Micro: Microbiology 08/15/25 11:56 Blood Culture (Wb) - Arm Left Blood Culture - Preliminary No growth in 48 hours. 08/16/25 08:05 Wound - Other Gram Stain - Final 08/16/25 08:05 Wound - Other Wound Culture - Preliminary GNR lactose operations support manager Gram negative jina 08/15/25 18:35 Wound - Pelvic Gram Stain - Final 08/15/25 18:35 Wound - Pelvic Wound Culture - Preliminary Gram negative jina GNR lactose operations support manager 08/15/25 13:10 Urine, Catheterized Urine Culture - Final Presumptive E. coli 08/16/25 21:10 Mucosa - Nasopharyngeal SARS-CoV-2, Influenza & RSV (PCR) - Final 08/16/25 05:57 Stool Enteric Bacteriology - Final Physical Exam Narrative Afebrile/VSS. Sitting up in her chair in no acute distress. Right labial HS lesions with scarring, scant drainage. tender to palpation. No crepitus, no induration, no streaking to surrounding area or gluteal areas Left labia no significant erythema, edema or drainage. Blackmon catheter in place and patent Assessment & Plan Assessment/Plan (1) Cellulitis of labia majora: (2) JOSH (acute kidney injury): PLAN: Plan Clinically doing well and has been weaned off pressor. Kidney function continue to improve, WBC wnl. Flu/RSV/Covid panel was negative. Continue broad spec abx per ID. OK to transition out of ICU from plastics standpoint. Charges/Coding Visit Charges Inpatient E&M: 68018 Subs Hosp L2
--- NOTE | 2025-08-17 16:26 | PCM.PN.ID ---
Physical Exam Narrative Feeling better, pain improved, no fever Const alert and no apparent distress General Appearance: cooperative Resp normal air movement and clear to auscultation bilaterally Cardio regular rate and regular rhythm GI soft to palpation, non-tender and non-distended Skin Skin Narrative: no new rash ID ID: Route of nutrition/ use of supplements: [] Nutritional Intake: [] IV Site: [] Blackmon Catheter: [] Assessment & Plan Assessment/Plan (1) Septic shock: PLAN: septic shock with R labial abscess - wound cx with GNR x2. BP, JOSH, and exam improved. Feeling better. Cont vanc/zosyn. Will follow (2) Vulvar abscess:
[2025-08-17] MEDS: MELATONIN 10 MG TABLET PO (21:20)
[2025-08-18 02:00] VITALS: BP 114/96; PULSE 51; PULSE 55; RESP 21; TEMP 36.7; O2SAT 98
[2025-08-18 04:11] LABS: Hematocrit 27.1 % (37-47); Hemoglobin 9.2 g/dL (12.0-15.0); Immature Granulocytes Count 0.020 X10^3/uL (0.0-0.0); Mean Corp Hgb Conc 33.9 g/dL (32-36); Mean Corpuscular Volume 91.6 fL (81-99); Mean Platelet Vol. 9.3 fl (6.2-12.0); NRBC Flagged by Analyzer 0 % (0-5); Platelet Count 188 K/mm3 (150-450); RBC Distribution Width CV 14.5 % (11.6-14.6); RBC Distribution Width SD 48.7 fl (35.1-43.9); Red Blood Count 2.96 M/mm3 (4.2-5.4); White Blood Count 6.0 K/mm3 (4.4-11.0)
[2025-08-18 04:32] LABS: Anion Gap 7 (5-15); BUN 16 mg/dL (4-19); BUN/Creat Ratio 14.4 RATIO (10-20); Calcium,Total 8.5 mg/dL (7.6-11.0); Carbon Dioxide 21.1 mmol/L (21.0-32.0); Chloride 111 mmol/L (98-108); Estimated Creatinine Clearance 38.06 ml/min (50-250); Glucose 100 mg/dL (70-99); Potassium 4.1 mmol/L (3.3-5.1)
[2025-08-18 06:00] VITALS: BMI 32.8
[2025-08-18] MEDS: Piperacil/Tazobactam 3.375 GM in 0.9% Normal Saline (50mL MB+) 50 ML IV ×3 (06:14→21:03)
[2025-08-18 07:00] VITALS: PULSE 47
[2025-08-18 08:20] VITALS: BP 108/61; PULSE 70; RESP 19; TEMP 36.9; O2SAT 98
--- NOTE | 2025-08-18 09:33 | PN.HOSP_ITS ---
Reason for Visit Chief Complaint: Low blood pressure Objective Data Objective Data Vital Signs: Vital Signs Temp Pulse Resp BP Pulse Ox O2 Del Method 98.1 F 47 L 21 H 114/96 H 98 Room Air 08/18/25 02:00 08/18/25 07:00 08/18/25 02:00 08/18/25 02:00 08/18/25 02:00 08/18/25 04:00 Oxygen Delivery Method Room Air Weight: 162 lb 11.218 oz Body Mass Index (BMI) 32.8 Intake & Output: Intake and Output for Last 24 Hours 08/16/25 08/17/25 08/18/25 23:59 23:59 23:59 Intake Total 3534.00 / 3534.00 1421 / 1421 50 / 50 Output Total 4745 / 4745 875 / 1425 900 / 900 Balance -1211.00 / -1211.00 546 / -4 -850 / -850 Lab / Micro Data 08/18/25 04:03 08/18/25 04:03 Labs: Laboratory Results - last 24 hr 08/17/25 10:25: WBC 6.2, RBC 3.10 L, Hgb 9.8 L, Hct 28.5 L, MCV 91.9, MCH 31.6, MCHC 34.4, RDW Std Deviation 48.1 H, RDW Coeff of Gisela 14.4, Plt Count 184, MPV 9.5, Immature Gran % (Auto) 0.500, Neut % (Auto) 78.6 H, Lymph % (Auto) 10.4 L, [place] % (Auto) 8.0, Eos % (Auto) 2.2, Baso % (Auto) 0.3, Absolute Neuts (auto) 4.9, Absolute Lymphs (auto) 0.65 L, Nucleated RBC % 0, Sodium 137, Potassium 3.9, Chloride 109 H, Carbon Dioxide 17.6 L, Anion Gap 10, BUN 19, Creatinine 1.28 H, Estim Creat Clear Calc 33.30 L, Est GFR (MDRD) Non-Af 43 L, BUN/Creatinine Ratio 14.5, Glucose 104 H, Calcium 8.7, Total Bilirubin 0.41, AST 42 H, ALT 72 H, Alkaline Phosphatase 90, Total Protein 5.3 L, Albumin 3.4, G lobulin 1.9 L, Albumin/Globulin Ratio 1.8 10/23/25 04:03: WBC 6.0, RBC 2.96 L, Hgb 9.2 L, Hct 27.1 L, MCV 91.6, MCH 31.1, MCHC 33.9, RDW Std Deviation 48.7 H, RDW Coeff of Gisela 14.5, Plt Count 188, MPV 9.3, Immature Gran % (Auto) 0.300, Neut % (Auto) 68.8, Lymph % (Auto) 16.4 L, M adrian % (Auto) 10.6 H, Eos % (Auto) 3.2, Baso % (Auto) 0.7, Absolute Neuts (auto) 4.1, Absolute Lymphs (auto) 0.99, Nucleated RBC % 0, Sodium 139, Potassium 4.1, Chloride 111 H, Carbon Dioxide 21.1, Anion Gap 7, BUN 16, Creatinine 1.12, Estim Creat Clear Calc 38.06 L, Est GFR (MDRD) Non-Af 51 L, BUN/Creatinine Ratio 14.4, Glucose 100 H, Calcium 8.5 Micro: Microbiology 08/16/25 08:05 Wound - Other Gram Stain - Final 08/16/25 08:05 Wound - Other Wound Culture - Preliminary Escherichia coli Gram negative jina 08/15/25 18:35 Wound - Pelvic Gram Stain - Final 08/15/25 18:35 Wound - Pelvic Wound Culture - Preliminary Escherichia coli Proteus mirabilis Beta hemolytic organism Gram positive organism 08/15/25 11:56 Blood Culture (Wb) - Arm Left Blood Culture - Preliminary No growth in 48 hours. 08/15/25 13:10 Urine, Catheterized Urine Culture - Final Presumptive E. coli 08/16/25 21:10 Mucosa - Nasopharyngeal SARS-CoV-2, Influenza & RSV (PCR) - Final 08/16/25 05:57 Stool Enteric Bacteriology - Final Physical Exam Narrative Patient was seen and examined Patient states labial discharge is less. No fever. Patient denies burning micturition increased frequency or urgency but she has chronic urinary incontinence. Physical exam General: Awake, intermittent confusion oriented x3, Cooperative. BMI 33.4 kg/m? HEENT: Atraumatic, PERRLA, EOMI, Normocephalic. Oral: No Gingival or Mucosal Lesions/ Ulcerations Neck: Supple, No JVD, Negative Carotid Bruits Chest wall/Lungs: Air entry diminished in bilateral lung bases. No crepitation/rhonchi Cardiovascular: Heart rate variable 50s to 100 partner. No M/G/R Abdomen: Bowel Sounds Present, Soft, Non Tender, Non-Distended : No dysuria, increased frequency urgency or recent change in the last 1 or 2 weeks. Right labial discharge is decreased Extremities: 1+ dependent pedal edema, Capillary Refill Less than 3 Seconds Skin: Localized erythema over right more than left labial minor/major, no significant discharge as per nursing staff. Musculoskeletal: No Tenderness to Palpation of Joints or Extremities Neurological: Cranial nerves II-XII grossly intact, DTR 2+/4. No acute focal neurological deficit. Psych/Mental Status: Flat affect. Sometimes confused Assessment & Plan Assessment/Plan (1) Sepsis: QUALIFIERS: Sepsis type: sepsis due to unspecified organism S epsis acute organ dysfunction status: unspecified Qualified Code(s): A41.9 - Sepsis, unspecified organism PLAN: Plan 75-year-old female known to [employer] service for labial cellulitis with history of hidradenitis suppurativa, [facility] wound [facility] and plastic was admitted for hypotension, generalized weakness, headache and wound on the on the groin/right labia area with soreness and bloody discharge. No fever. # Sepsis suspect secondary to right labial cellulitis in the setting of hidradenitis suppurativa - Patient with hypotension, tachypnea, bicarb of 17 with renal failure with a creatinine of 2.68 up from baseline of around 0.9 with neutrophil predominance on CBC with suspected source right labial lesion - Sepsis protocol was followed with 30 mL of IV fluid bolus, broad-spectrum antibiotics and blood culture. UA looks benign and not consistent with UTI. Dressing. CAR REPAIRMAN consult reviewed. - Patient started on vancomycin and Unasyn in the ED and this was continued 08/16: CAR REPAIRMAN consult note reviewed. No surgical drainage or debridement indicated as per administrative support assistant. During my round, there was copious discharge on pressing on the right labia majora/mons pubis region. Wound culture sent. Tenderness present. I feel, needs adequate incision and drainage as patient is on IV Levophed drip. I talked to Head Mva Reactor Operator Dr. Lui and told her that is not dispensed recently draining and needs adequate drainage as she is on Levophed drip. She states she will let Dr. Rosa to take care of it. ID, plastic surgery and soyfreeze operator also consulted 08/17: ID consult reviewed. On IV Zosyn and clindamycin. Wound culture from 08/15 and 08/16 are growing GNR lactose visual stylist. Urine culture presented with E. coli 25,000?50,000 colonies which is in nonpathologic range. Moreover, patient does not have acute lower urinary tract symptoms therefore UTI ruled out. 08/18: On antibiotic as per ID recommendation. Prelim wound culture growing ESBL negative E. coli/Proteus mirabilis/beta-hemolytic organism, GP organism and GNR. Blood culture negative for 48 hours. # Acute kidney injury due to septic shock/prerenal - Baseline creatinine around 0.9, creatinine now 2.68 on 05/04/2025. -Hold home Lasix as well as home spironolactone and lisinopril 08/16 admitting BUN/creatinine 55/2.68. Creatinine improvement from 2.68-1.39. Continue holding above nephrotoxic medications. IV fluid resuscitation. 08/17 monitor kidney function. Labs ordered 08/18 BUN/creatinine 16/1.12. Creatinine improving # Hyponatremia - Possibly secondary to volume depletion - Appears patient averages in the mid 130s - On presentation sodium 127 - Continue IV fluids -08/16: Repeat serum sodium 136 08/18: Serum sodium 139 normal. #Diarrhea - Unclear etiology, denies any significant abdominal pain, has some vague complaints on deep palpation but no alarm signs 08/16: Stool studies are pending. #Gout -Continue home allopurinol #Hypertension - Hold home antihypertensives due to hypotension # Cognitive impairment -Supportive care -Continue home medications #Hypothyroidism -Continue Synthroid #DVT ppx: SCDs Microbiology Past 72 Hours 08/16/25 08:05 Wound - Other Gram Stain - Final 08/16/25 08:05 Wound - Other Wound Culture - Preliminary Escherichia coli Gram negative jina 08/15/25 18:35 Wound - Pelvic Gram Stain - Final 08/15/25 18:35 Wound - Pelvic Wound Culture - Preliminary Escherichia coli Proteus mirabilis Beta hemolytic organism Gram positive organism 08/15/25 11:56 Blood Culture (Wb) - Arm Left Blood Culture - Preliminary No growth in 48 hours. 08/15/25 13:10 Urine, Catheterized Urine Culture - Final Presumptive E. coli 08/16/25 21:10 Mucosa - Nasopharyngeal SARS-CoV-2, Influenza & RSV (PCR) - Final 08/16/25 05:57 Stool Enteric Bacteriology - Final Laboratory Results 08/17/25 10:25: WBC 6.2, RBC 3.10 L, Hgb 9.8 L, Hct 28.5 L, MCV 91.9, MCH 31.6, MCHC 34.4, RDW Std Deviation 48.1 H, RDW Coeff of Gisela 14.4, Plt Count 184, MPV 9.5, Immature Gran % (Auto) 0.500, Neut % (Auto) 78.6 H, Lymph % (Auto) 10.4 L, [place] % (Auto) 8.0, Eos % (Auto) 2.2, Baso % (Auto) 0.3, Absolute Neuts (auto) 4.9, Absolute Lymphs (auto) 0.65 L, Nucleated RBC % 0, Sodium 137, Potassium 3.9, Chloride 109 H, Carbon Dioxide 17.6 L, Anion Gap 10, BUN 19, Creatinine 1.28 H, Estim Creat Clear Calc 33.30 L, Est GFR (MDRD) Non-Af 43 L, BUN/Creatinine Ratio 14.5, Glucose 104 H, Calcium 8.7, Total Bilirubin 0.41, AST 42 H, ALT 72 H, Alkaline Phosphatase 90, Total Protein 5.3 L, Albumin 3.4, G lobulin 1.9 L, Albumin/Globulin Ratio 1.8 08/18/25 04:03: WBC 6.0, RBC 2.96 L, Hgb 9.2 L, Hct 27.1 L, MCV 91.6, MCH 31.1, MCHC 33.9, RDW Std Deviation 48.7 H, RDW Coeff of Gisela 14.5, Plt Count 188, MPV 9.3, Immature Gran % (Auto) 0.300, Neut % (Auto) 68.8, Lymph % (Auto) 16.4 L, M adrian % (Auto) 10.6 H, Eos % (Auto) 3.2, Baso % (Auto) 0.7, Absolute Neuts (auto) 4.1, Absolute Lymphs (auto) 0.99, Nucleated RBC % 0, Sodium 139, Potassium 4.1, Chloride 111 H, Carbon Dioxide 21.1, Anion Gap 7, BUN 16, Creatinine 1.12, Estim Creat Clear Calc 38.06 L, Est GFR (MDRD) Non-Af 51 L, BUN/Creatinine Ratio 14.4, Glucose 100 H, Calcium 8.5 Charges/Coding Visit Charges Inpatient E&M: 87280 Subs Hosp L2
--- NOTE | 2025-08-18 09:58 | PCM.PN.ID ---
Physical Exam Narrative Feeling better, no fever, pain improved, no n/v/d. Const alert and no apparent distress General Appearance: cooperative Resp normal air movement and clear to auscultation bilaterally Cardio regular rate and regular rhythm GI soft to palpation, non-tender and non-distended Skin Skin Narrative: Catheter in place, no new redness ID ID: Route of nutrition/ use of supplements: [] Nutritional Intake: [] IV Site: [] Blackmon Catheter: [] Assessment & Plan Assessment/Plan (1) Septic shock: PLAN: septic shock with R labial abscess - wound cx with ecoli and GNR. Other wound cx with Ecoli, proteus, strep, gram pos. BP, JOSH, and exam improved. Feeling better. Cont vanc/zosyn. Will follow (2) Vulvar abscess:
[2025-08-18] MEDS: Vancomycin Trough/Random Due 1 LAB MC (14:12)
[2025-08-18 15:16] LABS: Vancomycin, Trough Level 10.6 ug/mL (5.0-15.0)
--- NOTE | 2025-08-18 15:27 | PCM.RX.CS ---
Consult Antibiotic Management Pharmacy has been consulted to manage selected antibiotic: Vancomycin Type of Intervention Type of Consult: Follow-up Suspected Infection Suspected Infection: Skin/Soft tissue Prior Doses of Antibiotics Prior Doses of Antibiotics Received/Current Regimen: Vancomycin 1000 mg Q24H last dose given 08/17/25 @ 1438 Labs Labs: Sodium 139 mmol/L (133-145) 08/18/25 04:03 Potassium 4.1 mmol/L (3.3-5.1) 08/18/25 04:03 Chloride 111 mmol/L (98-108) H 08/18/25 04:03 Carbon Dioxide 21.1 mmol/L (21.0-32.0) 08/18/25 04:03 Anion Gap 7 (5-15) 08/18/25 04:03 BUN 16 mg/dL (4-19) 08/18/25 04:03 Creatinine 1.12 mg/dL (0.70-1.20) 08/18/25 04:03 Est GFR (MDRD) Non-Af 51 (>60) L 08/18/25 04:03 BUN/Creatinine Ratio 14.4 RATIO (10-20) 08/18/25 04:03 Glucose 100 mg/dL (70-99) H 08/18/25 04:03 Vancomycin Trough 10.6 ug/mL (5.0-15.0) 08/18/25 14:10 Microbiology Microbiology: Microbiology 08/16/25 08:05 Wound - Other Gram Stain - Final 08/16/25 08:05 Wound - Other Wound Culture - Preliminary Escherichia coli Gram negative jina 08/15/25 18:35 Wound - Pelvic Gram Stain - Final 08/15/25 18:35 Wound - Pelvic Wound Culture - Preliminary Escherichia coli Proteus mirabilis Beta hemolytic organism Gram positive organism 08/15/25 11:56 Blood Culture (Wb) - Arm Left Blood Culture - Preliminary No growth in 48 hours. 08/15/25 13:10 Urine, Catheterized Urine Culture - Final Presumptive E. coli 08/16/25 21:10 Mucosa - Nasopharyngeal SARS-CoV-2, Influenza & RSV (PCR) - Final 08/16/25 05:57 Stool Enteric Bacteriology - Final Dosing Weight Weight used for dosin.8 kg Estimated Creatinine Clearance Estimated Creatinine Clearance: ~ 38 Goal Trough Goal Trough: 15-20 mcg/mL Pharmacy Plan for Drug Dosing Pharmacy Plan for Drug Dosing: Vancomycin trough = 10.6, increase to 1500 mg Q24H Pharmacy Service will continue to monitor and adjust dosing as required. Follow-Up Labs Follow-Up Labs: Trough: Vancomycin Date/Time Labs Ordered Labs to be done on [date and time ordered]: 08/20/25 @ 1500
[2025-08-18] MEDS: Vancomycin HCl 1,500 MG in 0.9% Normal Saline (500mL Bag) 500 ML 250 MG IV (16:14)
[2025-08-18 16:20] VITALS: BP 116/57; PULSE 59; RESP 17; TEMP 36.7; O2SAT 99
[2025-08-18 20:00] VITALS: PULSE 58
[2025-08-18] MEDS: MELATONIN 10 MG TABLET PO (21:03)
--- NOTE | 2025-08-18 21:48 | PCM.HOSP.N ---
Hospitalist Note RN notified me of pt having extended pauses in her heart rate, most recent rate dropping down to 29 but she does not sustain. On telemetry she does not appear to be in a notable heart block pattern. Complexes during bradycardic periods do have shorter NM intervals. TSH 2.750, Mg 2.0, hgb 9.2, neutrophilia resolved. She is on vancomycin with trough today of 10.6. Nursing asked to note frequency and duration of pauses, and to obtain an ECG if possible. Consult to cardiology placed as routine.
[2025-08-18 22:00] VITALS: BP 123/49; PULSE 45; RESP 15; TEMP 36.8; O2SAT 96
[2025-08-18 23:48] LABS: Magnesium 1.9 mg/dL (1.5-2.2)
[2025-08-19 01:00] VITALS: PULSE 46
[2025-08-19 06:00] VITALS: BMI 32.5
[2025-08-19] MEDS: Piperacil/Tazobactam 3.375 GM in 0.9% Normal Saline (50mL MB+) 50 ML IV ×3 (06:05→21:33)
[2025-08-19 06:13] LABS: Hematocrit 28.4 % (37-47); Hemoglobin 9.5 g/dL (12.0-15.0); Immature Granulocytes Count 0.140 X10^3/uL (0.0-0.0); Mean Corp Hgb Conc 33.5 g/dL (32-36); Mean Corpuscular Volume 92.8 fL (81-99); Mean Platelet Vol. 9.2 fl (6.2-12.0); NRBC Flagged by Analyzer 0 % (0-5); Platelet Count 208 K/mm3 (150-450); RBC Distribution Width CV 14.4 % (11.6-14.6); RBC Distribution Width SD 48.8 fl (35.1-43.9); Red Blood Count 3.06 M/mm3 (4.2-5.4); White Blood Count 7.4 K/mm3 (4.4-11.0)
[2025-08-19 06:56] LABS: Anion Gap 9 (5-15); BUN 13 mg/dL (4-19); BUN/Creat Ratio 14.4 RATIO (10-20); Calcium,Total 8.7 mg/dL (7.6-11.0); Carbon Dioxide 19.4 mmol/L (21.0-32.0); Chloride 115 mmol/L (98-108); Estimated Creatinine Clearance 47.57 ml/min (50-250); Glucose 99 mg/dL (70-99); Potassium 4.3 mmol/L (3.3-5.1)
--- NOTE | 2025-08-19 08:29 | PN.OBGYN_ITS ---
Subjective Subjective patient is sitting up at bedside, just finished breakfast but states that she just finished dinner. Appears otherwise oriented and is alert. She states that she wants to go home and when asked states that she would be willing to go to [facility] clinic if her brother would drive her. She states that her vaginal area feels much better and feels like it may be smaller now. Nurses in the room are here to assist in her exam and report that she is still in the unit for her low pulse only. Objective Data Objective Data Vital Signs: Vital Signs Temp Pulse Resp BP Pulse Ox O2 Del Method 98.2 F 46 L 15 123/49 H 96 Room Air 08/18/25 22:00 08/19/25 01:00 08/18/25 22:00 08/18/25 22:00 08/18/25 22:00 08/19/25 04:00 Oxygen Delivery Method Room Air Weight: 161 lb 13.109 oz Body Mass Index (BMI) 32.5 Intake & Output: Intake and Output for Last 24 Hours 08/17/25 08/18/25 08/19/25 23:59 23:59 23:59 Intake Total 1421 / 1421 680 / 680 50 / 50 Output Total 875 / 1425 1400 / 1400 300 / 300 Balance 546 / -4 -720 / -720 -250 / -250 Lab / Micro Data 08/19/25 06:00 08/19/25 06:00 Labs: Laboratory Results - last 24 hr 08/18/25 14:10: Vancomycin Trough 10.6 08/18/25 23:20: Phosphorus 2.6 L, Magnesium 1.9 08/19/25 06:00: WBC 7.4, RBC 3.06 L, Hgb 9.5 L, Hct 28.4 L, MCV 92.8, MCH 31.0, MCHC 33.5, RDW Std Deviation 48.8 H, RDW Coeff of Gisela 14.4, Plt Count 208, MPV 9.2, Immature Gran % (Auto) 1.900 H, Neut % (Auto) 67.8, Lymph % (Auto) 16.9 L, [place] % (Auto) 8.7, Eos % (Auto) 4.0, Baso % (Auto) 0.7, Absolute Neuts (auto) 5.0, Absolute Lymphs (auto) 1.26, Nucleated RBC % 0, Sodium 144, Potassium 4.3, Chloride 115 H, Carbon Dioxide 19.4 L, Anion Gap 9, BUN 13, Creatinine 0.90, E stim Creat Clear Calc 47.57 L, Est GFR (MDRD) Non-Af 67, BUN/Creatinine Ratio 14.4, Glucose 99, Calcium 8.7 Micro: Microbiology 08/16/25 08:05 Wound - Other Gram Stain - Final 08/16/25 08:05 Wound - Other Wound Culture - Preliminary Escherichia coli Gram negative jina 08/15/25 18:35 Wound - Pelvic Gram Stain - Final 08/15/25 18:35 Wound - Pelvic Wound Culture - Preliminary Escherichia coli Proteus mirabilis Beta hemolytic organism Gram positive organism 08/15/25 11:56 Blood Culture (Wb) - Arm Left Blood Culture - Preliminary No growth in 48 hours. 08/15/25 13:10 Urine, Catheterized Urine Culture - Final Presumptive E. coli 08/16/25 21:10 Mucosa - Nasopharyngeal SARS-CoV-2, Influenza & RSV (PCR) - Final 08/16/25 05:57 Stool Enteric Bacteriology - Final ROS ROS Narrative General: Denies fever, chills HEENT: Denies headaches, vision changes, sore throat Cardio: Denies chest pain, leg edema Pulmonary: Denies shortness of pain, cough, wheezing GI: Denies nausea, vomiting, diarrhea Review of Systems ROS Unobtainable: due to mental status Constitutional Constitutional: Denies body ache(s), chills or fever(s) Cardiovascular Cardiovascular: Denies abdominal pain, dizziness or dyspnea at rest Respiratory/Chest Respiratory/Chest: Denies cough or dyspnea Gastrointestinal Gastrointestinal: Denies abdominal pain, diarrhea, dyspepsia, nausea or vomiting Genitourinary Genitourinary: Reports genital lesions, genital pain and urinary urgency Musculoskeletal Musculoskeletal: Denies arthralgias, back pain or myalgias Integumentary Integumentary: Reports other Details: Swelling, wound left labia. Patient has multiple stab incisions noted of varying age. Hematologic/Lymphatic Hematologic/Lymphatic: Reports systems reviewed and no addt'l complaints, except as documented Physical Exam Const alert, oriented x3 and no apparent distress General Appearance: cooperative and comfortable HEENT normocephalic Neck full ROM Chest inspection of chest normal Resp normal respiratory effort Effort and Inspection: able to speak in complete sentences Cardio regular rate and regular rhythm GI soft to palpation, non-tender and non-distended Narrative: right labia with HS lesion. Some purulent material expels from the upper right labia tract. Lower fluctuant region is non-tender and not draining. Bladder / Kidney Exam: catheter in place urethral Groin / Perineum Exam: other multiple new and old HS tracts presents as was at last exam and with exams this year. However appears much improved. The area was expressed of only blood clots and no purulent material. Still somewhat tender. External Female Exam: normal appearance of the urethra Extremity normal to inspection Skin no rashes or lesions noted Neuro Sensorium / Orientation: awake, alert, oriented to person, oriented to place and oriented to time Assessment & Plan (1) Septic shock: (2) JOSH (acute kidney injury): (3) Sepsis: (4) Acute hypotension: (5) Hidradenitis suppurativa: (6) Urinary incontinence: PLAN: Plan clinical status of HS improving every day uti present and being treated by hospitalists I&D not indicated for chronic hidradenitis suppurativa. appreciate plastics involvement also following peripherally at present - recommend to stop the spironolactone upon dc to home as this is exacerbating potassium imbalance and does not seem to be helping with her symptoms. Will recommend the HS clinic at [facility] after discharge for more treatment options including biologics and steroid injections if they feel appropriate. longterm therapy with doxycycline recommended 100 mg daily at home. No further management from STREET SUPERVISOR needed in the inpatient setting at this time. Please reach out if further assistance is needed. We will continue to follow outpatient and arrange consultation to [facility]. Charges/Coding Visit Charges Inpatient E&M: 03642 Subs Hosp L3
--- NOTE | 2025-08-19 10:53 | PCM.PN.SRG ---
Subjective Subjective Patient seen this morning with Dr. Wojciech Green and nurse at ICU bedside. She was sitting on the edge of bed. She's been weaned off pressors since Friday and BPs have been stable. She is pending cardiology consult for low heart rate. She voices she wants to go home soon. She's worried about catching up with her bills. Dr. Fay offered social media editor consult but she declined at this time. She also discussed [facility] plastic surgery consult or starting a biologic. She states her labial area feels better. Objective Data Objective Data Vital Signs: Vital Signs Temp Pulse Resp BP Pulse Ox O2 Del Method 98.2 F 46 L 15 123/49 H 96 Room Air 08/18/25 22:00 08/19/25 01:00 08/18/25 22:00 08/18/25 22:00 08/18/25 22:00 08/19/25 04:00 Oxygen Delivery Method Room Air Weight: 161 lb 13.109 oz Body Mass Index (BMI) 32.5 Intake & Output: Intake and Output for Last 24 Hours 08/17/25 08/18/25 08/19/25 23:59 23:59 23:59 Intake Total 1421 / 1421 680 / 680 100 / 100 Output Total 875 / 1425 1400 / 1400 300 / 300 Balance 546 / -4 -720 / -720 -200 / -200 Lab / Micro Data Attestation: I reviewed the patient's lab results. Lab results narrative: Improving kidney function 08/19/25 06:00 08/19/25 06:00 Labs: Laboratory Results - last 24 hr 08/18/25 14:10: Vancomycin Trough 10.6 08/18/25 23:20: Phosphorus 2.6 L, Magnesium 1.9 08/19/25 06:00: WBC 7.4, RBC 3.06 L, Hgb 9.5 L, Hct 28.4 L, MCV 92.8, MCH 31.0, MCHC 33.5, RDW Std Deviation 48.8 H, RDW Coeff of Gisela 14.4, Plt Count 208, MPV 9.2, Immature Gran % (Auto) 1.900 H, Neut % (Auto) 67.8, Lymph % (Auto) 16.9 L, [place] % (Auto) 8.7, Eos % (Auto) 4.0, Baso % (Auto) 0.7, Absolute Neuts (auto) 5.0, Absolute Lymphs (auto) 1.26, Nucleated RBC % 0, Sodium 144, Potassium 4.3, Chloride 115 H, Carbon Dioxide 19.4 L, Anion Gap 9, BUN 13, Creatinine 0.90, Estim Creat Clear Calc 47.57 L, Est GFR (MDRD) Non-Af 67, BUN/Creatinine Ratio 14.4, Glucose 99, Calcium 8.7 Micro: Microbiology 08/16/25 08:05 Wound - Other Gram Stain - Final 08/16/25 08:05 Wound - Other Wound Culture - Final Escherichia coli Proteus mirabilis 08/15/25 18:35 Wound - Pelvic Gram Stain - Final 08/15/25 18:35 Wound - Pelvic Wound Culture - Final Escherichia coli Proteus mirabilis Staphylococcus haemolyticus Staphylococcus epidermidis 08/15/25 11:56 Blood Culture (Wb) - Arm Left Blood Culture - Preliminary No growth in 48 hours. 08/15/25 13:10 Urine, Catheterized Urine Culture - Final Presumptive E. coli 08/16/25 21:10 Mucosa - Nasopharyngeal SARS-CoV-2, Influenza & RSV (PCR) - Final 08/16/25 05:57 Stool Enteric Bacteriology - Final Physical Exam Narrative Afebrile/VSS. Laying in bed. Right labial HS lesions with scarring, scant dark bloody drainage. Dr. Fay expressed thick clot and bloody drainage. Patient unable to tolerate further expression. No crepitus, no induration, no streaking to surrounding area or gluteal areas Left labia no significant erythema, edema or drainage. Blackmon catheter in place and patent Assessment & Plan Assessment/Plan (1) Cellulitis of labia majora: (2) JOSH (acute kidney injury): PLAN: Plan Clinically doing well, off pressors since Friday. Kidney function continue to improve, WBC wnl. Flu/RSV/Covid panel was negative. Continue broad spec abx per ID. OK to transition out of ICU from plastics standpoint. Agree with [facility] plastics referral outpatient. Once outpatient continue wound center follow up with Dr. Galvez Charges/Coding Visit Charges Inpatient E&M: 15830 Subs Hosp L2
[2025-08-19 13:02] VITALS: O2SAT 97
--- NOTE | 2025-08-19 14:49 | CASEMGMT ---
This card writer hand collaborated with Dr Cortés who made a TC to ID. Hospitalist provides the culture results to ID who reports that the pt will be able to DC on PO ATBs at the time of DC. Dr Cortés states that the pt will be staying today and may DC over the weekend. [facility] notified and reports that they can resume care on Friday. ABIDA CM to the pt's room at this time and updated. Pt also plans to follow up with [facility] as an OP, see [employer] notes. Pt denies further questions or concerns at this time.
[2025-08-19] MEDS: Vancomycin HCl 1,500 MG in 0.9% Normal Saline (500mL Bag) 500 ML 250 MG IV (16:19)
--- NOTE | 2025-08-19 17:30 | PN.HOSP_ITS ---
Reason for Visit Chief Complaint: Low blood pressure Subjective Subjective Patient was seen and examined today, she is off of pressors at this time and she was made PCU status. I talked briefly with infectious diseases, they recommended outpatient antibiotics for 5 days consisting of Flagyl, Zyvox, and Cipro. Objective Data Objective Data Vital Signs: Vital Signs Temp Pulse Resp BP Pulse Ox O2 Del Method 98.2 F 46 L 15 123/49 H 97 Room Air 08/18/25 22:00 08/19/25 01:00 08/18/25 22:00 08/18/25 22:00 08/19/25 13:02 08/19/25 16:00 Oxygen Delivery Method Room Air Weight: 73.4 kg Body Mass Index (BMI) 32.5 Intake & Output: Intake and Output for Last 24 Hours 08/17/25 08/18/25 08/19/25 23:59 23:59 23:59 Intake Total 1421 / 1421 680 / 680 600 / 600 Output Total 875 / 1425 1400 / 1400 1300 / 1300 Balance 546 / -4 -720 / -720 -700 / -700 Lab / Micro Data 08/19/25 06:00 08/19/25 06:00 Labs: Laboratory Results - last 24 hr 08/18/25 23:20: Phosphorus 2.6 L, Magnesium 1.9 08/19/25 06:00: WBC 7.4, RBC 3.06 L, Hgb 9.5 L, Hct 28.4 L, MCV 92.8, MCH 31.0, MCHC 33.5, RDW Std Deviation 48.8 H, RDW Coeff of Gisela 14.4, Plt Count 208, MPV 9.2, Immature Gran % (Auto) 1.900 H, Neut % (Auto) 67.8, Lymph % (Auto) 16.9 L, [place] % (Auto) 8.7, Eos % (Auto) 4.0, Baso % (Auto) 0.7, Absolute Neuts (auto) 5.0, Absolute Lymphs (auto) 1.26, Nucleated RBC % 0, Sodium 144, Potassium 4.3, Chloride 115 H, Carbon Dioxide 19.4 L, Anion Gap 9, BUN 13, Creatinine 0.90, E stim Creat Clear Calc 47.57 L, Est GFR (MDRD) Non-Af 67, BUN/Creatinine Ratio 14.4, Glucose 99, Calcium 8.7 Micro: Microbiology 08/16/25 08:05 Wound - Other Gram Stain - Final 08/16/25 08:05 Wound - Other Wound Culture - Final Escherichia coli Proteus mirabilis 08/15/25 18:35 Wound - Pelvic Gram Stain - Final 08/15/25 18:35 Wound - Pelvic Wound Culture - Final Escherichia coli Proteus mirabilis Staphylococcus haemolyticus Staphylococcus epidermidis 08/15/25 11:56 Blood Culture (Wb) - Arm Left Blood Culture - Preliminary No growth in 48 hours. 08/15/25 13:10 Urine, Catheterized Urine Culture - Final Presumptive E. coli 08/16/25 21:10 Mucosa - Nasopharyngeal SARS-CoV-2, Influenza & RSV (PCR) - Final 08/16/25 05:57 Stool Enteric Bacteriology - Final Physical Exam Const alert, oriented x3, no apparent distress and healthy appearing General Appearance: cooperative, well kempt and well developed Orientation / Consciousness: awake, oriented to person, oriented to place and oriented to time HEENT normocephalic and moist oral mucous membranes Eyes PERRL, EOMs intact bilaterally and conjunctivae normal Neck supple, no JVD, thyroid normal and no carotid bruits General: trachea midline Resp normal respiratory effort and clear to auscultation bilaterally Auscultation: Negative for rales, rhonchi or wheezes Cardio regular rate, regular rhythm, no murmurs, no rub and no gallops GI normal to inspection, nondistended, normoactive bowel sounds, soft to palpation, non-tender and non-distended Extremity no clubbing, cyanosis or edema Neuro oriented x3, CN's II-XII intact bilaterally, no focal motor deficits and no sensory deficits noted Sensorium / Orientation: awake and alert Speech: speech normal Psych affect normal Assessment & Plan Assessment/Plan (1) Septic shock: PLAN: Plan 1. Septic shock secondary to right labial abscess/cellulitis-patient's antibiotic coverage will be changed, she will be moved to PCU for further care, she will be reevaluated tomorrow morning for possible discharge home #2 labial cellulitis secondary to E. coli, Proteus mirabilis, staph hemolyticus, and Staph epidermidis-patient's antibiotic coverage will be changed to oral antibiotic coverage #3 acute kidney injury-resolved at this time, monitor labs as appropriate #4 pretension-patient will remain on her present medications #5 hypothyroidism-patient is on Synthroid #6 hyperlipidemia-patient is on pravastatin #7 cognitive impairment-patient is currently on Aricept, she has no documented history in her medical record of dementia however Total clinical time spent by myself addressing the patient's medical issues, reviewing all of her data, and collaborating with patient's care team: 35 minutes Charges/Coding Visit Charges Inpatient E&M: 00053 Subs Hosp L2
[2025-08-19 17:49] VITALS: BP 128/58; PULSE 64; RESP 16; TEMP 36.6; O2SAT 99
[2025-08-19] MEDS: 0.9% Saline Lock 10 ML Syringe IV (17:55)
[2025-08-19] MEDS: MELATONIN 10 MG TABLET PO (21:34)
[2025-08-19 22:00] VITALS: BP 163/84; PULSE 76; RESP 16; TEMP 36.6; O2SAT 98
[2025-08-20 04:30] VITALS: BP 119/59; PULSE 53; RESP 16; TEMP 36.8; O2SAT 96
[2025-08-20] MEDS: Piperacil/Tazobactam 3.375 GM in 0.9% Normal Saline (50mL MB+) 50 ML IV (04:57)
[2025-08-20 05:46] VITALS: BMI 32.7
[2025-08-20 08:10] VITALS: BP 134/61
--- NOTE | 2025-08-20 08:40 | DCINST_ITS ---
Discharge Instructions DC O2, CPAP, BIPAP needs Home O2 Discharge instructions: No Dressing / Incision Discharge Activity: Return to Normal Activity Weight Bearing Status: Full weight bearing Follow Up Care Test Results: Test results from this visit will be discussed in further detail at your follow- up appointment, if applicable. Discharge Plan Admission Admit Date/Time: 08/15/25 17:25 Primary Reason for Your Visit: Labial cellulitis Attending Provider: Herbert Killian Primary Care Provider: Mateo Avalos Consulting Providers: Valarie Keene; David Boyle; Frank Toth; Kasi Arriola; Breonna Lui; Kasi Eugene Instructions Additional Instructions / Restrictions: Start Cipro, linezolid, and metronidazole today Discharge Orders/Prescriptions Prescriptions: New ciprofloxacin HCl [Cipro] 500 mg tablet 500 mg PO BID Qty: 10 0RF Rx Instructions: Start on 08/20/2025 metronidazole 500 mg tablet 500 mg PO TID Qty: 21 0RF linezolid [Zyvox] 600 mg tablet 600 mg PO BID Qty: 10 0RF Rx Instructions: start on 08/20/2025 Continued allopurinol 300 mg tablet 300 mg PO QDAY pravastatin 10 mg tablet 10 mg PO QHS furosemide [Lasix] 20 mg tablet 20 mg PO DAILY Patient Comments: PT STATES MD CHANGED TO QOD levothyroxine [Synthroid] 150 mcg tablet 150 mcg PO DAILY donepezil [Aricept] 10 mg tablet 10 mg PO DAILY Changed spironolactone 100 mg tablet 50 mg PO DAILY Qty: 1 0RF amlodipine [Norvasc] 10 mg tablet 5 mg PO DAILY Qty: 1 0RF lisinopril 40 mg tablet 20 mg PO DAILY Qty: 1 0RF Discontinued doxycycline monohydrate 100 mg tablet 100 mg PO DAILY Referrals / Follow Up: Mateo Avalos MD [Primary Care Provider, Family Practice] - In 1 Week Disposition Disposition (needs filled in before D/C Order can be placed): Home, Self Care
--- NOTE | 2025-08-20 08:48 | DS.PCM_ITS ---
Providers Date of Admission: 08/15/25 Date of Discharge: 08/20/25 Primary Care Physician: Dr. Mateo Avalos MD Consultations 08/15/25 18:39 Consult: RETAIL SALES ASSOCIATE [employer]UAL Routine Consulting Provider: Breonna Lui Reason for Consult: labial cellulitis EMERGENT Consult: No Notified: Yes Date Notified: 08/15/25 Time Notified: 17:41 Method of Notification: Verbal 08/16/25 08:26 Consult: Infectious Disease Routine Consulting Provider: Kasi Arriola Reason for Consult: septic shock due to labia infection/abscess/Hidra supp EMERGENT Consult: No Notified: Yes Date Notified: 08/16/25 Time Notified: 08:27 Method of Notification: Text Consult: Iron Erector / Pulmonary Medicine Routine Consulting Provider: Intensivists/Pulmonary Med Reason for Consult: septic shock on levophed, labia minora absecss/ Hidra supp EMERGENT Consult: No Notified: Yes Date Notified: 08/16/25 Time Notified: 08:28 Method of Notification: Text Consult: Plastic Surgery Routine Consulting Provider: Kasi Eugene Reason for Consult: complex labia Hidra supp, septic shock EMERGENT Consult: No Notified: Yes Date Notified: 08/16/25 Time Notified: 08:28 Method of Notification: Text 08/18/25 21:43 Consult: Cardiology Routine Consulting Provider: Frank Toth Reason for Consult: sick sinus vs 2nd deg HB II EMERGENT Consult: No Notified: No Date Notified: 08/18/25 Time Notified: 21:43 08/19/25 00:00 Consult: Cardiology Routine Consulting Provider: Frank Toth Reason for Consult: bradycardia EMERGENT Consult: No Notified: Yes Date Notified: 08/19/25 Time Notified: 00:00 Method of Notification: Verbal Reason For Visit: SEPSIS Diagnosis Discharge Diagnosis (1) Septic shock: Status: Acute Code(s): A41.9 - Sepsis, unspecified organism; R65.21 - Severe sepsis with septic shock Plan 1. Septic shock secondary to right labial abscess/cellulitis-patient's antibiotic coverage will be changed, she will be moved to PCU for further care, she will be reevaluated tomorrow morning for possible discharge home #2 labial cellulitis secondary to E. coli, Proteus mirabilis, staph hemolyticus, and Staph epidermidis-patient's antibiotic coverage will be changed to oral antibiotic coverage #3 acute kidney injury-resolved at this time, monitor labs as appropriate #4 Essential hypertension-patient is off her medications currently due to hypotension, they will be reevaluated at the time of discharge #5 hypothyroidism-patient is on Synthroid #6 hyperlipidemia-patient is on pravastatin #7 cognitive impairment/dementia-patient is currently on Aricept Total clinical time spent by myself addressing the patient's medical issues, reviewing all of her data, and collaborating with patient's care team: 35 minutes Medications at Discharge Home Medications pravastatin 10 mg tablet 10 mg PO QHS 08/06/24 allopurinol 300 mg tablet 300 mg PO QDAY FOR GOUT 12/10/24 donepezil 10 mg tablet (Aricept) 10 mg PO DAILY 08/15/25 furosemide 20 mg tablet (Lasix) 20 mg PO DAILY EDEMA 08/15/25 levothyroxine 150 mcg tablet (Synthroid) 150 mcg PO DAILY 08/15/25 amlodipine 10 mg tablet (Norvasc) 5 mg (1/2 x 10 mg) PO DAILY BLOOD PRESSURE #1 TAB 08/20/25 ciprofloxacin HCl 500 mg tablet (Cipro) 500 mg PO BID #10 tabs 08/20/25 linezolid 600 mg tablet (Zyvox) 600 mg PO BID #10 tabs 08/20/25 lisinopril 40 mg tablet 20 mg (1/2 x 40 mg) PO DAILY BLOOD PRESSURE #1 TAB 08/20/25 metronidazole 500 mg tablet 500 mg PO TID #21 tabs 08/20/25 spironolactone 100 mg tablet 50 mg (1/2 x 100 mg) PO DAILY #1 TAB 08/20/25 Hospital Course Operations None Procedures None Summary of Care Provided Minutes Spent on Discharge: 32 Hospital Course: This 75-year-old white female was seen in the emergency room at [facility] after being instructed to go to the emergency room due to a wound on her right labial area. She had been treated for hidradenitis suppurativa. Workup in the emergency room included a CBC which showed a normal white blood cell count, hemoglobin was 10.8, sodium was 127, creatinine was 2.68 and BUN was 55. Patient's lactic acid was normal, her urinalysis was unremarkable. Patient was admitted to ICU for septic shock and acute kidney injury, pressor agents for instituted for blood pressure support, she was placed on IV antibiotics, given IV fluids, and seen in consultation by RETAIL SALES ASSOCIATE [employer]ING[employer], plastic surgery, and critical care. Patient's blood pressure stabilized and the ICU, she was moved out to PCU for further care. Patient's cultures grew out several organisms which required multiple antibiotics at discharge to cover the organisms. On 08/20/2025, patient was seen and examined: On examination she appeared in good health and spirits, she does not appear to be in any distress. Vital signs as documented. Skin warm and dry, there is some redness noted in the right groin area along with mild tenderness to palpation. Neck without JVD, thyroid appears normal, trachea is midline, neck is supple. Lungs clear, normal air movement was noted. Heart exam notable for regular rhythm, normal sounds and absence of murmurs, rubs or gallops. Abdomen unremarkable and without evidence of organomegaly, masses, or abdominal aortic enlargement, bowel sounds are present in all 4 quadrants, no abdominal tenderness was noted. Extremities nonedematous, no cyanosis was noted, no clubbing was noted. Neuro: Cranial nerves II through XII are grossly intact, no focal motor deficits were noted, sensation to light touch and pinprick is intact, motor exam 5/5 throughout. Psych: Patient is alert and oriented x3, she does not appear anxious or depressed, she does not appear agitated. Patient was discharged home in stable condition on 08/20/2025. Weight / BMI Weight Weight: 73.7 kg Body Mass Index (BMI) 32.7 ABG / Lab / Microbiology Data 08/19/25 06:00 08/19/25 06:00 Microbiology: Microbiology 08/16/25 08:05 Wound - Other Gram Stain - Final 08/16/25 08:05 Wound - Other Wound Culture - Final Escherichia coli Proteus mirabilis 08/15/25 18:35 Wound - Pelvic Gram Stain - Final 08/15/25 18:35 Wound - Pelvic Wound Culture - Final Escherichia coli Proteus mirabilis Staphylococcus haemolyticus Staphylococcus epidermidis 08/15/25 11:56 Blood Culture (Wb) - Arm Left Blood Culture - Preliminary No growth in 48 hours. 08/15/25 13:10 Urine, Catheterized Urine Culture - Final Presumptive E. coli 08/16/25 21:10 Mucosa - Nasopharyngeal SARS-CoV-2, Influenza & RSV (PCR) - Final 08/16/25 05:57 Stool Enteric Bacteriology - Final D/C Instructions Weight Bearing Status: Full weight bearing DC O2, CPAP, BIPAP Needs Home O2 Discharge instructions: No Meaningful Use Info Meaningful Use Meaningful Use Diagnoses (Choose all that apply): None applicable Discharge Plan Admission Admit Date/Time: 08/15/25 17:25 Primary Reason for Your Visit: Labial cellulitis Attending Provider: Herbert Killian Primary Care Provider: Mateo Avalos Consulting Providers: Valarie Keene; David Boyle; Frank Toth; Kasi Arriola; Breonna Lui; Kasi Eugene Instructions Additional Instructions / Restrictions: Start Cipro, linezolid, and metronidazole today Discharge Orders/Prescriptions Prescriptions: New ciprofloxacin HCl [Cipro] 500 mg tablet 500 mg PO BID Qty: 10 0RF Rx Instructions: Start on 08/20/2025 metronidazole 500 mg tablet 500 mg PO TID Qty: 21 0RF linezolid [Zyvox] 600 mg tablet 600 mg PO BID Qty: 10 0RF Rx Instructions: start on 08/20/2025 Continued allopurinol 300 mg tablet 300 mg PO QDAY pravastatin 10 mg tablet 10 mg PO QHS furosemide [Lasix] 20 mg tablet 20 mg PO DAILY Patient Comments: PT STATES MD CHANGED TO QOD levothyroxine [Synthroid] 150 mcg tablet 150 mcg PO DAILY donepezil [Aricept] 10 mg tablet 10 mg PO DAILY Changed spironolactone 100 mg tablet 50 mg PO DAILY Qty: 1 0RF amlodipine [Norvasc] 10 mg tablet 5 mg PO DAILY Qty: 1 0RF lisinopril 40 mg tablet 20 mg PO DAILY Qty: 1 0RF Discontinued doxycycline monohydrate 100 mg tablet 100 mg PO DAILY Referrals / Follow Up: Mateo Avalos MD [Primary Care Provider, Family Practice] - In 1 Week Disposition Disposition (needs filled in before D/C Order can be placed): Home, Self Care Charges/Coding Visit Charges Inpatient E&M: 60482 Disch Hosp >30min
[2025-08-20 09:54] VITALS: BP 98/42; PULSE 61; RESP 16; TEMP 36.4; O2SAT 96
[2025-08-20 11:59] VITALS: BP 124/62; PULSE 52
== END 2025-08-20 15:34 | disposition home or self-care (01) | DRG 871 ==
LOC: ED 15:24 → ICU 17:42 → PCU 08-19 17:36
PROVIDERS: Internal Medicine; Internal Medicine Cardiovascular Disease; Internal Medicine Critical Care Medicine; Obstetrics & Gynecology; Admitting Provider Internal Medicine; Emergency Provider Emergency Medicine; PCP Family Medicine; Visit Provider Internal Medicine
DX: A41.9 Sepsis, unspecified organism (principal); R65.21 Severe sepsis with septic shock; E87.20 Acidosis, unspecified; E87.1 Hypo-osmolality and hyponatremia; N17.9 Acute kidney failure, unspecified; N76.4 Abscess of vulva; I10 Essential (primary) hypertension; E03.9 Hypothyroidism, unspecified; L73.2 Hidradenitis suppurativa; M10.9 Gout, unspecified; E78.5 Hyperlipidemia, unspecified; G31.84 Mild cognitive impairment of uncertain or unknown etiology; G47.33 Obstructive sleep apnea (adult) (pediatric); R19.7 Diarrhea, unspecified; R32 Unspecified urinary incontinence; N76.2 Acute vulvitis; Z90.89 Acquired absence of other organs; B96.20 Unspecified Escherichia coli [E. coli] as the cause of diseases classified elsewhere; B96.4 Proteus (mirabilis) (morganii) as the cause of diseases classified elsewhere; B95.8 Unspecified staphylococcus as the cause of diseases classified elsewhere; Z96.643 Presence of artificial hip joint, bilateral
CPT/HCPCS: 36569; 72193; 80048; 80053; 80202; 81001; 83605; 83735; 84100; 84443; 85025; 85610; 85730; 87040; 87070; 87077; 87086; 87088; 87186; 87205; 87506; 87631; 87640; 93005; 97162; 97166; 97530; 97802; 99285; P9047; Q9967; A4216; J0295

== ENCOUNTER 2025-09-16 11:00 | Outpatient (RCR) | payer MEDICARE, OTHER, SELFPAY ==
[2025-09-02 11:12] VITALS: BP 139/75; PULSE 69; RESP 18; TEMP 36.3
--- NOTE | 2025-09-02 13:34 | PCM.WC.PN ---
History of Present Illness Date of Service: 09/02/25 Chief Complaint: Nonhealing ulcers of groin area History of Wound: Mónica is a pleasant 75 yo woman that presents to the wound healing center for evaluation and treatment recommendations for nonhealing ulcers that are in her bilateral groin folds that have been present and waxed and waned in severity for 13 years. She reports that she has also had urinary incontinence that started around that time as well and she has been wearing disposable incontinence pads daily since then. She reports that the areas bleed and drain pratt fluid intermittently. At some points there have been 5 spots of blood and currently there is about 2. She is otherwise uncomplicated and does not have history of diabetes. She denies fever, chills, erythema, increased drainage and odor. She has some cognitive impairment which is due to dementia. Her brother Marshall accompanies her today and helps somewhat with the history and reinforcement of instructions. She has been being seen by Dr. Eugene and referred for consultation regarding any medical management recommendations. She was evaluated by ETYMOLOGY PROFESSOR for possible Bartholin cyst but this was not felt to be an underlying cause. She sees Dr. Townsend for dermatology and is on Spironolactone. I saw her previously in July 2024 for similar complaints and she was referred to urology for urinary incontinence evaluation. 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 Subjective Subjective Mónica returns today for evaluation and treatment of hidradenitis suppurativa. She has been using Dakins solution wet to dry dressings to the groin areas and has had decrease in the drainage and discomfort. She is a poor historian. She does deny increased draining, bleeding or redness. She saw Dr. Albrecht for surgical consult on 07/11/25 and he referred her to dermatology for treatment with DMARD for her HS and will follow up in 1 month to see if surgery is needed. She also injured her forearm with a skin tear to left forearm in July. She has been dressing this with bandaids daily. Objective Data Objective Data Vital Signs: Vital Signs Temp Pulse Resp BP O2 Del Method 97.4 F L 69 18 139/75 H Room Air 09/02/25 11:12 09/02/25 11:12 09/02/25 11:12 09/02/25 11:12 09/02/25 11:12 Oxygen Delivery Method Room Air Physical Exam Const alert, oriented x3, no apparent distress and healthy appearing General Appearance: cooperative, well kempt and well developed Orientation / Consciousness: awake, oriented to person, oriented to place and oriented to time HEENT normocephalic and moist oral mucous membranes Eyes PERRL, EOMs intact bilaterally and conjunctivae normal Neck supple, no JVD, thyroid normal and no carotid bruits General: trachea midline Resp normal respiratory effort and clear to auscultation bilaterally Auscultation: Negative for rales, rhonchi or wheezes Cardio regular rate, regular rhythm, no murmurs, no rub and no gallops GI normal to inspection, nondistended, normoactive bowel sounds, soft to palpation, non-tender and non-distended Extremity no clubbing, cyanosis or edema Neuro oriented x3, CN's II-XII intact bilaterally, no focal motor deficits and no sensory deficits noted Sensorium / Orientation: awake and alert Speech: speech normal Psych affect normal Debridement Note Debridement Note Wound debrided: Left groin hidradenitis wound Laterality: Left No debridement was completed: No debridement was completed today Post-Debridement Measurements and Additional Note: Post-Debridement Measurements/Treatment SHAYNA - Nurse 1 - General Ulcer Assessment Start: 09/02/25 11:11 Freq: Status: Active Protocol: JOSE ELIAS Activity Type Activity Date Activity User E-sign Co-sign Detail Recorded Client Recorded Date Recorded By Document 09/02/25 11:12 TANESHA [id number] 09/02/25 11:18 TANESHA 09/02/25 11:12 - Today's Visit Information Type of service Follow-up Visit (Physician/[facility] ) Arrival Mode Ambulatory Transfer Assistance None Patient Identification Verified (Name & Yes ) Patient Requires Transmission-Based No Precautions Vital Signs Temperature (97.8 F-99.1 F) 97.4 F L Temperature Source Temporal Pulse Rate (60-100) 69 Pulse Location Monitor Respiratory Rate (12-18) 18 Respiratory rate source Observation Oxygen Delivery Method Room Air Blood Pressure (90/60-120/80) 139/75 H Blood Pressure Mean (mm Hg) 96 Source Monitor Position Sitting Blood Pressure Location Left Arm History Since Last Visit- (Skip if this is Patient's initial visit) Have you changed medications since your No last visit? Any new allergies or adverse reactions No Had a fall/change in ADL's that may No increase risk of falls Signs or symptoms of abuse and/or No neglect since last visit Have you been in the hospital since your No last visit? Has dressing in place as prescribed Yes Has compression in place as prescribed N/A Has offloadiing in place as prescribed N/A Experienced any changes in pain level or No management Left Footwear Regular Shoe Right Footwear Regular Shoe Pain Scale: 0-10 Numeric Is Patient Pain Free? Yes WC - Nurse 1 - General Ulcer Measurement Start: 09/02/25 11:11 Freq: Status: Active Protocol: Activity Type Activity Date Activity User E-sign Co-sign Detail Recorded Client Recorded Date Recorded By Document 09/02/25 11:12 RB [id number] 09/02/25 11:18 RB 09/02/25 11:12 Wound Center Nurse 1 #3 LEFT FA -Combined with other wound No -Current Size (cm) - Length 0.1 -Current Size (cm) - Width 0.1 -Current Size (cm) - Depth 0.1 -Total Square Cm 0.01 -Photo Taken Yes -Tunneling No -Undermining/Tunneling No -Circular Undermining No -Exudate Amt Small -Exudate Type Serosanguineous -Wound Margin Fibrotic Scar, Thickened Scar -Granulation Amt Medium (34-66%) -Granulation Quality [place] -Slough/Fibrin Yes -Necrosis Amt Medium (34-66%) -Necrotic Tissue Type Adherent Slough -Structure Exposed N/A -Texture (Carol-wound Skin Appearance) Assessed, Scarring -Moisture (Carol-wound Skin Appearance) Assessed -Color (Carol-wound Skin Appearance) Assessed -Temperature (Carol-wound Skin No Abnormality Appearance) (Pt Warm) -Tenderness on Palpation (Carol-wound No Skin Appearance) -Ulcer Cleansing Wound Cleanser -Foul Odor after Cleansing No -Anesthetic Used 5% Lidocaine Gel 2. R groin -Combined with other wound No -Current Size (cm) - Length 0.1 -Current Size (cm) - Width 0.1 -Current Size (cm) - Depth 0.1 -Total Square Cm 0.01 -Photo Taken Yes -Tunneling No -Undermining/Tunneling No -Circular Undermining No -Exudate Amt Small -Exudate Type Serosanguineous -Wound Margin Indistinct, Non -Visible -Granulation Amt Large (67-100%) -Granulation Quality [place],Red -Slough/Fibrin Yes -Necrosis Amt Small (1-33%) -Necrotic Tissue Type Adherent Slough -Structure Exposed N/A -Texture (Carol-wound Skin Appearance) Localized Edema -Moisture (Carol-wound Skin Appearance) Assessed -Color (Carol-wound Skin Appearance) Erythema -Temperature (Carol-wound Skin No Abnormality Appearance) (Pt Warm) -Tenderness on Palpation (Carol-wound No Skin Appearance) -Ulcer Cleansing Wound Cleanser -Foul Odor after Cleansing No -Anesthetic Used 5% Lidocaine Gel WC - Nurse 2 - General Ulcer CM Notes Start: 09/02/25 11:11 Freq: Status: Active Protocol: Activity Type Activity Date Activity User E-sign Co-sign Detail Recorded Client Recorded Date Recorded By Document 09/02/25 11:34 [id number] 09/02/25 11:40 09/02/25 11:34 Wound Center Nurse 2 #3 LEFT FA -Time 11:34 -Correct Patient Yes -Correct Side, Site, Position Yes -Correct Procedure No -Procedure Performed No -Post Debridement (cm) - Length 0.4 -Post Debridement (cm) - Width 0.4 -Post Debridement (cm) - Depth 0.1 -Total Square (Post) (cm) 0.16 -Tunneling No -Undermining/Tunneling No -Circular Undermining No -Wound/Ulcer Outcome Not Healed -Ulcer Cleansing Rinsed/ Irrigated with Saline -Foul Odor after Cleansing No -Bioengineered Tissue No -Bleeding Controlled with NA 2. R groin -Time 11:36 -Correct Patient Yes -Correct Side, Site, Position Yes -Correct Procedure No -Procedure Performed No -Tunneling No -Undermining/Tunneling No -Circular Undermining No -Wound/Ulcer Outcome Not Healed -Ulcer Cleansing Rinsed/ Irrigated with Saline -Foul Odor after Cleansing No -Bioengineered Tissue No -Bleeding Controlled with NA Pain Scale: 0-10 Numeric Is Patient Pain Free? Yes WC - Nurse 3 - General Ulcer D/C NN Start: 09/02/25 11:11 Freq: Status: Active Protocol: Activity Type Activity Date Activity User E-sign Co-sign Detail Recorded Client Recorded Date Recorded By Document 09/02/25 11:50 TS [id number] 09/02/25 11:52 TS 09/02/25 11:50 Wound Care Center Nurse 3 #3 LEFT FA -Primary Dressing Applied C Hydrogel, Silicone Border Foam 4x4 -Hydrogel 0 -Silicone Border Foam 4x4 1 Pain Scale: 0-10 Numeric Is Patient Pain Free? Yes WC - Visit Discharge Discharge Condition Stable Ambulatory Status Ambulatory Transportation Private Auto Accompanied by brother Medication Reconcilliation completed & No provided to patient/care provider Clinical Summary of Care Provided Yes Additional Wound Wound debrided: right hidradenitis ulcer Laterality: Right Operative Diagnosis: No debridement completed today Additional Wound Wound debrided: left forearm ulcer Laterality: Left Amount of bleeding with debridement: Mild Bleeding Controlled with: Compression and gauze Patient tolerated procedure: Patient tolerated procedure well Operative Diagnosis: no debridement Assessment/Plan Assessment/Plan (1) Skin ulcer of right groin with fat layer exposed: CODE(S): L98.492 - Non-pressure chronic ulcer of skin of other sites with fat layer exposed (2) Ulcer of left groin with fat layer exposed: CODE(S): L98.492 - Non-pressure chronic ulcer of skin of other sites with fat layer exposed (3) Hidradenitis suppurativa: CODE(S): L73.2 - Hidradenitis suppurativa (4) Hypothyroidism: CODE(S): E03.9 - Hypothyroidism, unspecified QUALIFIERS: Hypothyroidism type: unspecified Qualified Code(s): E03.9 - (5) HTN (hypertension): CODE(S): I10 - Essential (primary) hypertension QUALIFIERS: Hypertension type: essential hypertension Qualified Code(s): I10 - Essential (primary) hypertension (6) Obesity: CODE(S): E66.9 - Obesity, unspecified QUALIFIERS: Obesity type: due to excess calories Obesity classification: adult class 2 (BMI 35 - 39.9) Serious obesity comorbidity presence: without serious comorbidity Body mass index: BMI 35.0-35.9 Qualified Code(s): E66.812 - Obesity, class 2; E66.09 - Other obesity due to excess calories; Z68.35 - Body mass index [BMI] 35.0-35.9, adult (7) Skin tear of left forearm without complication: CODE(S): S51.812A - Laceration without foreign body of left forearm, initial encounter QUALIFIERS: Encounter type: subsequent encounter Qualified Code(s): S51.812D - Laceration without foreign body of left forearm, subsequent encounter (8) 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 At home wound-care instructions: Will have her apply hydrogel to her left forearm ulcer and cover this daily. The patient will wash with antibacterial soap and water in her groin area. Encouraged her to use baby wipes instead of rubbing alcohol to clean skin after using bathroom. Keep dressing clean and dry. Will consider having her use Acetic acid rinse to her groin area if not improving. Reiterated to both the patient and her brother, Marshall, that the hidradenitis is a chronic condition and there is a spectrum of treatments but it will not be cured and will involve periodic flare ups. We discussed referral to dermatology to discuss biologic treatment options and that surgical excision of the HS is also an option for treatment. Will discuss her case with Dr. Townsend regarding DMARDs treatment and referral given for surgical opinion to Dr. Albrecht in [place] as he has treated several of my HS patients surgically. She saw Dr. Albrecht and he referred her for DMARDS which were started this past week. She is scheduled to follow up with him again in 1 month to assess whether surgery is needed. Discussed the importance of treating the incontinence and to follow up as scheduled with urology regarding work up and options for treatment. Also discussed trying ABD pads in her underwear instead of incontinence pads due to the irritation that plastic may cause to her skin or trying reusable, washable cotton underpads. Educated patient on the chronicity of hidradenitis and encouraged continued weight loss. Off-loading: The patient was instructed to avoid pressure and friction on the affected areas. Reposition every 2 hours at minimum. Avoid prolonged standing and/or dangling of legs. When seated, feet should be elevated at chest level. Frequent ambulation is encouraged. Diet: Patient encouraged to increase protein intake while taking caution to avoid high carbohydrate and/or sugar intake. Labs/cultures/imaging: Follow-up: Will have her return in 2 weeks. She was advised to call or go to ER if increased drainage, pain, bleeding or worsening.
--- NOTE | 2025-09-05 08:41 | WC ---
PHOTO-LEFT FA 09/02/25
--- NOTE | 2025-09-05 08:42 | WC ---
PHOTO-RIGHT GROIN 09/02/25
[2025-09-16 11:13] VITALS: BP 136/62; PULSE 58; RESP 18; TEMP 36.3
--- NOTE | 2025-09-16 14:43 | PN.PCM_ITS ---
History of Present Illness Date of Service: 09/16/25 Chief Complaint: Nonhealing ulcers of groin area History of Wound: Mónica is a pleasant 75 yo woman that presents to the wound healing center for evaluation and treatment recommendations for nonhealing ulcers that are in her bilateral groin folds that have been present and waxed and waned in severity for 13 years. She reports that she has also had urinary incontinence that started around that time as well and she has been wearing disposable incontinence pads daily since then. She reports that the areas bleed and drain pratt fluid intermittently. At some points there have been 5 spots of blood and currently there is about 2. She is otherwise uncomplicated and does not have history of diabetes. She denies fever, chills, erythema, increased drainage and odor. She has some cognitive impairment which is due to dementia. Her brother Marshall accompanies her today and helps somewhat with the history and reinforcement of instructions. She has been being seen by Dr. Eugene and referred for consultation regarding any medical management recommendations. She was evaluated by SIGNALS INTELLIGENCE ANALYST for possible Bartholin cyst but this was not felt to be an underlying cause. She sees Dr. Townsend for dermatology and is on Spironolactone. I saw her previously in July 2024 for similar complaints and she was referred to urology for urinary incontinence evaluation. 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 Subjective Subjective Mónica returns today for evaluation and treatment of hidradenitis suppurativa. She has been using Dakins solution wet to dry dressings to the groin areas and has had decrease in the drainage and discomfort. She is a poor historian. She does deny increased draining, bleeding or redness. She saw Dr. Albrecht for surgical consult on 07/11/25 and he referred her to dermatology for treatment with DMARD for her HS and recently was hospitalized for sepsis. DMARD is on hold per her brother and he states that dermatology discussed surgery is needed. She also injured her forearm with a skin tear to left forearm in July. She has been dressing this with hydrogel and foam dressing daily. She reports that she had swelling and pain in her right buttock area until yesterday when it began draining bloody discharge. Objective Data Objective Data Vital Signs: Vital Signs Temp Pulse Resp BP O2 Del Method 97.3 F L 58 L 18 136/62 H Room Air 09/16/25 11:13 09/16/25 11:13 09/16/25 11:13 09/16/25 11:13 09/16/25 11:13 Oxygen Delivery Method Room Air Physical Exam Const alert, oriented x3, no apparent distress and healthy appearing General Appearance: cooperative, well kempt and well developed Orientation / Consciousness: awake, oriented to person, oriented to place and oriented to time Nutritional Appearance: obese HEENT normocephalic and moist oral mucous membranes Eyes PERRL, EOMs intact bilaterally and conjunctivae normal Neck supple, no JVD, thyroid normal and no carotid bruits General: trachea midline Resp normal respiratory effort and clear to auscultation bilaterally Effort and Inspection: able to speak in complete sentences Auscultation: Negative for rales, rhonchi or wheezes Cardio regular rate, regular rhythm, no murmurs, no rub and no gallops GI normal to inspection, nondistended, normoactive bowel sounds, soft to palpation, non-tender and non-distended Extremity no clubbing, cyanosis or edema Skin Skin Narrative: hypertrophic thickened skin of creases of groin bilaterally with some open areas that appear to be cystic consistent with hidradenitis. Left groin without openings seen and without drainage. Right groin/labia minimal purulent drainage and no slough present, right buttock perirectal area with thickened hypertrophic skin but no fluctuance and minimal purulent drainage from 2 pin point fistulous tracts Wounds: wounds noted Wound Narrative: as in clinical panel Neuro oriented x3, CN's II-XII intact bilaterally, no focal motor deficits and no sensory deficits noted Sensorium / Orientation: awake and alert Speech: speech normal Psych affect normal Debridement Note Debridement Note Wound debrided: left forearm Laterality: Left Type of Debridement: Selective debridement Anesthesia Used: 5% Lidocaine Gel Depth: Down to and including healthy tissue and in the subcutaneous layer Instrument Used: - (gauze) Tissue Removed: Yellow slough, devitalized tissue Severity: Fat Layer Exposed Amount of bleeding with debridement: Mild Bleeding Controlled with: Compression and gauze Patient tolerated procedure: Patient tolerated procedure well Post-Debridement Measurements and Additional Note: Post-Debridement Measurements/Treatment SHAYNA - Nurse 1 - General Ulcer Assessment Start: 09/02/25 11:11 Freq: Status: Active Protocol: WC.LOWEXT Activity Type Activity Date Activity User E-sign Co-sign Detail Recorded Client Recorded Date Recorded By Document 09/02/25 11:12 RB [id number] 09/02/25 11:18 RB Document 09/16/25 11:13 RB [id number] 09/16/25 11:16 RB 09/02/25 09/16/25 11:12 11:13 WC - Today's Visit Information Type of service Follow-up Visit Follow-up Visit (Physician/PLANT SPECIALIST (Physician/PLANT SPECIALIST ) ) Arrival Mode Ambulatory Ambulatory Transfer Assistance None None Patient Identification Verified (Name & Yes Yes ) Patient Requires Transmission-Based No No Precautions Vital Signs Temperature (97.8 F-99.1 F) 97.4 F L 97.3 F L Temperature Source Temporal Temporal Pulse Rate (60-100) 69 58 L Pulse Location Monitor Monitor Respiratory Rate (12-18) 18 18 Respiratory rate source Observation Observation Oxygen Delivery Method Room Air Room Air Blood Pressure (90/60-120/80) 139/75 H 136/62 H Blood Pressure Mean (mm Hg) 96 86 Source Monitor Monitor Position Sitting Sitting Blood Pressure Location Left Arm Right Arm History Since Last Visit- (Skip if this is Patient's initial visit) Have you changed medications since your No No last visit? Any new allergies or adverse reactions No No Had a fall/change in ADL's that may No No increase risk of falls Signs or symptoms of abuse and/or No No neglect since last visit Have you been in the hospital since your No No last visit? Has dressing in place as prescribed Yes Yes Has compression in place as prescribed N/A N/A Has offloadiing in place as prescribed N/A N/A Experienced any changes in pain level or No No management Left Footwear Regular Shoe Regular Shoe Right Footwear Regular Shoe Regular Shoe Pain Scale: 0-10 Numeric Is Patient Pain Free? Yes No GROIN/BUTTOCKS AREA -Description Aching -Intensity 6 -Duration (hours) Acute -Pain Behavior Guarding -Pain Aggravating Factors Exercise/ Activity, Sitting -Alleviating Factors/Interventions Turning/ Repositioning -Effectiveness of Alleviating Factor/ Minimally Intervention effective WC - Nurse 1 - General Ulcer Measurement Start: 09/02/25 11:11 Freq: Status: Active Protocol: Activity Type Activity Date Activity User E-sign Co-sign Detail Recorded Client Recorded Date Recorded By Document 09/02/25 11:12 RB [id number] 09/02/25 11:18 RB Document 09/16/25 11:13 RB [id number] 09/16/25 11:16 RB 09/02/25 09/16/25 11:12 11:13 Wound Center Nurse 1 #3 LEFT FA -Combined with other wound No No -Current Size (cm) - Length 0.1 0.3 -Current Size (cm) - Width 0.1 0.3 -Current Size (cm) - Depth 0.1 0.1 -Total Square Cm 0.01 0.09 -Date of Last Picture (Recall this 09/16/25 field) -Photo Taken Yes Yes -Epithelialization Medium 34-66% -Tunneling No No -Undermining/Tunneling No No -Circular Undermining No No -Exudate Amt Small Medium -Exudate Type Serosanguineous Serosanguineous -Wound Margin Fibrotic Scar, Fibrotic Scar, Thickened Scar Thickened Scar -Granulation Amt Medium (34-66%) Medium (34-66%) -Granulation Quality [place] -Slough/Fibrin Yes Yes -Necrosis Amt Medium (34-66%) Small (1-33%) -Necrotic Tissue Type Adherent Slough Adherent Slough -Structure Exposed N/A N/A -Texture (Carol-wound Skin Appearance) Assessed, Scarring Scarring -Moisture (Carol-wound Skin Appearance) Assessed Assessed -Color (Carol-wound Skin Appearance) Assessed Assessed -Temperature (Carol-wound Skin No Abnormality No Abnormality Appearance) (Pt Warm) (Pt Warm) -Tenderness on Palpation (Carol-wound No No Skin Appearance) -Ulcer Cleansing Wound Cleanser Wound Cleanser -Foul Odor after Cleansing No No -Anesthetic Used 5% Lidocaine 5% Lidocaine Gel Gel 2. R groin -Combined with other wound No No -Current Size (cm) - Length 0.1 0.1 -Current Size (cm) - Width 0.1 0.1 -Current Size (cm) - Depth 0.1 0.1 -Total Square Cm 0.01 0.01 -Date of Last Picture (Recall this 09/16/25 field) -Photo Taken Yes Yes -Tunneling No No -Undermining/Tunneling No No -Circular Undermining No No -Exudate Amt Small Medium -Exudate Type Serosanguineous Purulent -Wound Margin Indistinct, Non Fibrotic Scar, -Visible Thickened Scar -Granulation Amt Large (67-100%) Large (67-100%) -Granulation Quality [place],Red [place],Red -Slough/Fibrin Yes Yes -Necrosis Amt Small (1-33%) Small (1-33%) -Necrotic Tissue Type Adherent Slough Adherent Slough -Structure Exposed N/A N/A -Texture (Carol-wound Skin Appearance) Localized Edema Assessed -Moisture (Carol-wound Skin Appearance) Assessed Assessed -Color (Carol-wound Skin Appearance) Erythema Erythema -Temperature (Carol-wound Skin No Abnormality No Abnormality Appearance) (Pt Warm) (Pt Warm) -Tenderness on Palpation (Carol-wound No No Skin Appearance) -Ulcer Cleansing Wound Cleanser Wound Cleanser -Foul Odor after Cleansing No No -Anesthetic Used 5% Lidocaine 5% Lidocaine Gel Gel WC - Nurse 2 - General Ulcer CM Notes Start: 09/02/25 11:11 Freq: Status: Active Protocol: Activity Type Activity Date Activity User E-sign Co-sign Detail Recorded Client Recorded Date Recorded By Document 09/02/25 11:34 [id number] 09/02/25 11:40 Document 09/16/25 11:26 [id number] 09/16/25 11:36 09/02/25 09/16/25 11:34 11:26 Wound Center Nurse 2 #3 LEFT FA -Time 11:34 11:26 -Correct Patient Yes Yes -Correct Side, Site, Position Yes Yes -Correct Procedure No Yes -Procedure Performed No Yes -Type of Procedure Debridement -Clinical Debridement Epidermis / Dermis -Tissue Removed Epidermis -Post Debridement (cm) - Length 0.4 0.5 -Post Debridement (cm) - Width 0.4 1.5 -Post Debridement (cm) - Depth 0.1 0.1 -Total Square (Post) (cm) 0.16 0.75 -Area of Debridement (cm) - Length 0.5 -Area of Debridement (cm) - Width 1.5 -Total Square (Area) (cm) 0.75 -Tunneling No No -Undermining/Tunneling No No -Circular Undermining No No -Wound/Ulcer Outcome Not Healed Not Healed -Ulcer Cleansing Rinsed/ Rinsed/ Irrigated with Irrigated with Saline Saline -Foul Odor after Cleansing No No -Bioengineered Tissue No No -Bleeding Controlled with NA Pressure -Treatment Response Procedure Tolerated Well -Offloading No -Debridement - Open, 1st 20sq cm Yes 2. R groin -Time 11:36 11:27 -Correct Patient Yes Yes -Correct Side, Site, Position Yes Yes -Correct Procedure No No -Procedure Performed No No -Tunneling No No -Undermining/Tunneling No No -Circular Undermining No No -Wound/Ulcer Outcome Not Healed Not Healed -Ulcer Cleansing Rinsed/ Irrigated with Saline -Foul Odor after Cleansing No No -Bioengineered Tissue No No -Bleeding Controlled with NA NA -Wound Comment(s) HIDRADENITIS Pain Scale: 0-10 Numeric Is Patient Pain Free? Yes Yes - Nurse 3 - General Ulcer D/C NN Start: 09/02/25 11:11 Freq: Status: Active Protocol: Activity Type Activity Date Activity User E-sign Co-sign Detail Recorded Client Recorded Date Recorded By Document 09/02/25 11:50 [id number] 09/02/25 11:52 TS Document 09/16/25 11:48 [id number] 09/16/25 11:49 TS 09/02/25 09/16/25 11:50 11:48 Wound Care Center Nurse 3 #3 LEFT FA -Primary Dressing Applied C Hydrogel, C Hydrogel, Silicone Border Silicone Border Foam 4x4 Foam 4x4 -Hydrogel 0 0 -Silicone Border Foam 4x4 1 1 Pain Scale: 0-10 Numeric Is Patient Pain Free? Yes Yes - Visit Discharge Discharge Condition Stable Stable Ambulatory Status Ambulatory Ambulatory Transportation Private Auto Private Auto Accompanied by brother Medication Reconcilliation completed & No No provided to patient/care provider Clinical Summary of Care Provided Yes Yes Additional Wound Wound debrided: right groin/labia Laterality: Right Operative Diagnosis: no debridement - stable HS without cellulitis Additional Wound Wound debrided: right buttock carol-rectal area Laterality: Right Operative Diagnosis: no debridement - stable HS without cellulitis Assessment/Plan Assessment/Plan (1) Skin ulcer of right groin with fat layer exposed: CODE(S): L98.492 - Non-pressure chronic ulcer of skin of other sites with fat layer exposed (2) Ulcer of left groin with fat layer exposed: CODE(S): L98.492 - Non-pressure chronic ulcer of skin of other sites with fat layer exposed (3) Hidradenitis suppurativa: CODE(S): L73.2 - Hidradenitis suppurativa (4) Hypothyroidism: CODE(S): E03.9 - Hypothyroidism, unspecified QUALIFIERS: Hypothyroidism type: unspecified Qualified Code(s): E03.9 - (5) HTN (hypertension): CODE(S): I10 - Essential (primary) hypertension QUALIFIERS: Hypertension type: essential hypertension Qualified Code(s): I10 - Essential (primary) hypertension (6) Obesity: CODE(S): E66.9 - Obesity, unspecified QUALIFIERS: Obesity type: due to excess calories Obesity classification: adult class 2 (BMI 35 - 39.9) Serious obesity comorbidity presence: without serious comorbidity Body mass index: BMI 35.0-35.9 Qualified Code(s): E66.812 - Obesity, class 2; E66.09 - Other obesity due to excess calories; Z68.35 - Body mass index [BMI] 35.0-35.9, adult (7) Skin tear of left forearm without complication: CODE(S): S51.812A - Laceration without foreign body of left forearm, initial encounter QUALIFIERS: Encounter type: subsequent encounter Qualified Code(s): S51.812D - Laceration without foreign body of left forearm, subsequent encounter (8) 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 At home wound-care instructions: Will have her apply hydrogel to her left forearm ulcer and cover this daily. The patient will wash with antibacterial soap and water in her groin area. Encouraged her to use baby wipes instead of rubbing alcohol to clean skin after using bathroom. Keep dressing clean and dry. Will consider having her use Acetic acid rinse to her groin area if not improving. Reiterated to both the patient and her brother, Marshall, that the hidradenitis is a chronic condition and there is a spectrum of treatments but it will not be cured and will involve periodic flare ups. We discussed referral to dermatology to discuss biologic treatment options and that surgical excision of the HS is also an option for treatment. Will discuss her case with Dr. Townsend regarding DMARDs treatment and referral given for surgical opinion to Dr. Albrecht in [place] as he has treated several of my HS patients surgically. She saw Dr. Albrecht and he referred her for DMARDS. She saw Andry Hood for follow up and they have held DMARD due to TB testing equivocal. So far no plan for surgery although Marshall states they have recommended surgery. Discussed the importance of treating the incontinence and to follow up as scheduled with urology regarding work up and options for treatment. Also discussed trying ABD pads in her underwear instead of incontinence pads due to the irritation that plastic may cause to her skin or trying reusable, washable cotton underpads. Educated patient on the chronicity of hidradenitis and encouraged continued weight loss. Off-loading: The patient was instructed to avoid pressure and friction on the affected areas. Reposition every 2 hours at minimum. Avoid prolonged standing and/or dangling of legs. When seated, feet should be elevated at chest level. Frequent ambulation is encouraged. Diet: Patient encouraged to increase protein intake while taking caution to avoid high carbohydrate and/or sugar intake. Labs/cultures/imaging: Follow-up: Will have her return in 2 weeks. She was advised to call or go to ER if increased drainage, pain, bleeding or worsening.
--- NOTE | 2025-09-19 09:29 | WC ---
PHOTO-LFA 09/16/25
--- NOTE | 2025-09-19 09:30 | WC ---
PHOTO-RIGHT GROIN 09/16/25
== END 2025-09-25 23:59 | disposition home or self-care (01) ==
LOC: WC 11:00
PROVIDERS: PCP Family Medicine; Referring Provider Surgery Plastic and Reconstructive Surgery; Visit Provider Family Medicine
DX: L73.2 Hidradenitis suppurativa (principal); L98.492 Non-pressure chronic ulcer of skin of other sites with fat layer exposed; F03.90 Unspecified dementia, unspecified severity, without behavioral disturbance, psychotic disturbance, mood disturbance, and anxiety; E66.812 Obesity, class 2; I10 Essential (primary) hypertension; S51.812D Laceration without foreign body of left forearm, subsequent encounter; E66.09 Other obesity due to excess calories; E03.9 Hypothyroidism, unspecified; Z68.35 Body mass index [BMI] 35.0-35.9, adult; L98.A22 Non-pressure chronic ulcer of left forearm
CPT/HCPCS: 97597; 99213; G0463

== ENCOUNTER 2025-10-14 10:00 | Outpatient (RCR) | payer MEDICARE, OTHER, SELFPAY ==
[2025-09-30 10:32] VITALS: BP 115/68; PULSE 59; RESP 18; TEMP 36.4
--- NOTE | 2025-09-30 12:35 | WC ---
PHOTO-LFA 09/30/25
--- NOTE | 2025-09-30 14:32 | PN.PCM_ITS ---
History of Present Illness Date of Service: 09/30/25 Chief Complaint: Nonhealing ulcers of groin area History of Wound: Mónica is a pleasant 75 yo woman that presents to the wound healing center for evaluation and treatment recommendations for nonhealing ulcers that are in her bilateral groin folds that have been present and waxed and waned in severity for 13 years. She reports that she has also had urinary incontinence that started around that time as well and she has been wearing disposable incontinence pads daily since then. She reports that the areas bleed and drain pratt fluid intermittently. At some points there have been 5 spots of blood and currently there is about 2. She is otherwise uncomplicated and does not have history of diabetes. She denies fever, chills, erythema, increased drainage and odor. She has some cognitive impairment which is due to dementia. Her brother Marshall accompanies her today and helps somewhat with the history and reinforcement of instructions. She has been being seen by Dr. Eugene and referred for consultation regarding any medical management recommendations. She was evaluated by PHYSICAL THERAPY ASSISTANT for possible Bartholin cyst but this was not felt to be an underlying cause. She sees Dr. Townsend for dermatology and is on Spironolactone. I saw her previously in July 2024 for similar complaints and she was referred to urology for urinary incontinence evaluation. 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 Subjective Subjective Mónica returns today for evaluation and treatment of hidradenitis suppurativa. She has not been using Dakins solution wet to dry dressings to the groin area for the last month and has had decrease in the drainage and discomfort. She is a poor historian. She does deny increased draining, bleeding or redness. She saw Dr. Albrecht for surgical consult on 07/11/25 and he referred her to dermatology for treatment with DMARD for her HS and recently was hospitalized for sepsis. DMARD is on hold per her brother and he states that dermatology discussed surgery is needed but he has not heard from anyone regarding next steps. She has appointment in November scheduled with dermatology. She also injured her forearm with a skin tear to left forearm in July. She has been dressing this with hydrogel and foam dressing daily. Objective Data Objective Data Vital Signs: Vital Signs Temp Pulse Resp BP O2 Del Method 97.6 F L 59 L 18 115/68 Room Air 09/30/25 10:32 09/30/25 10:32 09/30/25 10:32 09/30/25 10:32 09/30/25 10:32 Oxygen Delivery Method Room Air Physical Exam Const alert, oriented x3, no apparent distress and healthy appearing General Appearance: cooperative, well kempt and well developed Orientation / Consciousness: awake, oriented to person, oriented to place and oriented to time Nutritional Appearance: obese HEENT normocephalic and moist oral mucous membranes Eyes PERRL, EOMs intact bilaterally and conjunctivae normal Neck supple, no JVD, thyroid normal and no carotid bruits General: trachea midline Resp normal respiratory effort and clear to auscultation bilaterally Effort and Inspection: able to speak in complete sentences Auscultation: Negative for rales, rhonchi or wheezes Cardio regular rate, regular rhythm, no murmurs, no rub and no gallops GI normal to inspection, nondistended, normoactive bowel sounds, soft to palpation, non-tender and non-distended Extremity no clubbing, cyanosis or edema Skin Skin Narrative: hypertrophic thickened skin of creases of groin bilaterally with some open areas that appear to be cystic consistent with hidradenitis. Left groin without openings seen and without drainage. Right groin/labia minimal purulent drainage and no slough present, right buttock perirectal area with thickened hypertrophic skin but no fluctuance and minimal purulent drainage from 2 pin point fistulous tracts Wounds: wounds noted Wound Narrative: as in clinical panel Neuro oriented x3, CN's II-XII intact bilaterally, no focal motor deficits and no sensory deficits noted Sensorium / Orientation: awake and alert Speech: speech normal Psych affect normal Debridement Note Debridement Note Wound debrided: left forearm Laterality: Left Type of Debridement: Selective debridement Anesthesia Used: 5% Lidocaine Gel Depth: Down to and including healthy tissue and in the subcutaneous layer Instrument Used: - (gauze) Tissue Removed: Yellow slough, devitalized tissue Severity: Fat Layer Exposed Amount of bleeding with debridement: Mild Bleeding Controlled with: Compression and gauze Patient tolerated procedure: Patient tolerated procedure well Post-Debridement Measurements and Additional Note: Post-Debridement Measurements/Treatment SHAYNA - Nurse 1 - General Ulcer Assessment Start: 09/30/25 10:32 Freq: Status: Active Protocol: JOSE ELIAS Activity Type Activity Date Activity User E-sign Co-sign Detail Recorded Client Recorded Date Recorded By Document 09/30/25 10:32 [id number] 09/30/25 10:35 09/30/25 10:32 - Today's Visit Information Type of service Follow-up Visit (Physician/AUTO BRAKE TECHNICIAN ) Arrival Mode Ambulatory,Cane Transfer Assistance Manual Patient Identification Verified (Name & Yes ) Vital Signs Temperature (97.8 F-99.1 F) 97.6 F L Temperature Source Oral Pulse Rate (60-100) 59 L Pulse Location Monitor Respiratory Rate (12-18) 18 Respiratory rate source Ausculation Oxygen Delivery Method Room Air Blood Pressure (90/60-120/80) 115/68 Blood Pressure Mean (mm Hg) 83 Source Monitor Position Sitting Blood Pressure Location Right Arm History Since Last Visit- (Skip if this is Patient's initial visit) Have you changed medications since your No last visit? Any new allergies or adverse reactions No Had a fall/change in ADL's that may No increase risk of falls Signs or symptoms of abuse and/or No neglect since last visit Have you been in the hospital since your No last visit? Has dressing in place as prescribed Yes Has compression in place as prescribed N/A Has offloadiing in place as prescribed N/A Experienced any changes in pain level or No management Left Footwear Regular Shoe Right Footwear Regular Shoe Pain Scale: 0-10 Numeric Is Patient Pain Free? Yes - Nurse 1 - General Ulcer Measurement Start: 09/30/25 10:32 Freq: Status: Active Protocol: Activity Type Activity Date Activity User E-sign Co-sign Detail Recorded Client Recorded Date Recorded By Document 09/30/25 10:32 [id number] 09/30/25 10:35 09/30/25 10:32 Wound Center Nurse 1 #3 LEFT FA -Combined with other wound No -Current Size (cm) - Length 0.5 -Current Size (cm) - Width 1.3 -Current Size (cm) - Depth 0.1 -Total Square Cm 0.65 -Date of Last Picture (Recall this 09/30/25 field) -Photo Taken Yes -Epithelialization Small 1-33% -Tunneling No -Undermining/Tunneling No -Circular Undermining No -Exudate Amt Small -Exudate Type Serosanguineous -Wound Margin Flat & Intact -Granulation Amt Small (1-33%) -Granulation Quality [place],Red -Slough/Fibrin No -Necrosis Amt None Present (0 %) -Necrotic Tissue Type Necrosis of Bone -Texture (Carol-wound Skin Appearance) Assessed -Moisture (Carol-wound Skin Appearance) Assessed -Color (Carol-wound Skin Appearance) Assessed -Temperature (Carol-wound Skin No Abnormality Appearance) (Pt Warm) -Tenderness on Palpation (Carol-wound No Skin Appearance) -Ulcer Cleansing Soap and Water -Foul Odor after Cleansing No -Anesthetic Used 5% Lidocaine Gel Lower Limb Edema Present No WC - Nurse 2 - General Ulcer CM Notes Start: 09/30/25 10:32 Freq: Status: Active Protocol: Activity Type Activity Date Activity User E-sign Co-sign Detail Recorded Client Recorded Date Recorded By Document 09/30/25 11:15 GM(2) [id number] 09/30/25 11:20 GM(2) 09/30/25 11:15 Wound Center Nurse 2 #3 LEFT FA -Time 11:15 -Correct Patient Yes -Correct Side, Site, Position Yes -Correct Procedure No -Procedure Performed No -Post Debridement (cm) - Length 0.2 -Post Debridement (cm) - Width 0.6 -Post Debridement (cm) - Depth 0.1 -Total Square (Post) (cm) 0.12 -Tunneling No -Undermining/Tunneling No -Circular Undermining No -Wound/Ulcer Outcome Not Healed -Ulcer Cleansing Rinsed/ Irrigated with Saline -Foul Odor after Cleansing No -Bioengineered Tissue No -Bleeding Controlled with NA -Offloading No Pain Scale: 0-10 Numeric Is Patient Pain Free? Yes WC - Nurse 3 - General Ulcer D/C NN Start: 09/30/25 10:32 Freq: Status: Active Protocol: Activity Type Activity Date Activity User E-sign Co-sign Detail Recorded Client Recorded Date Recorded By Document 09/30/25 11:29 [id number] 09/30/25 11:32 GM 09/30/25 11:29 Wound Care Center Nurse 3 #3 LEFT FA -Ulcer Cleansing Not Cleansed -Foul Odor after Cleansing No -Negative Pressure Wound Therapy N/A -Primary Dressing Applied C Hydrogel, Silicone Border Foam 4x4 -Patient Supplied Dressing Yes -Hydrogel 1 -Silicone Border Foam 4x4 1 Treatment Response Procedure Tolerated Well Pain Scale: 0-10 Numeric Is Patient Pain Free? Yes WC - Visit Discharge Discharge Condition Stable Ambulatory Status Ambulatory,Cane Medication Reconcilliation completed & No provided to patient/care provider Clinical Summary of Care Provided Yes Additional Wound Wound debrided: right groin/labia Laterality: Right Operative Diagnosis: no debridement - stable HS without cellulitis Additional Wound Wound debrided: right buttock carol-rectal area Laterality: Right Operative Diagnosis: no debridement - stable HS without cellulitis Assessment/Plan Assessment/Plan (1) Skin ulcer of right groin with fat layer exposed: CODE(S): L98.492 - Non-pressure chronic ulcer of skin of other sites with fat layer exposed (2) Ulcer of left groin with fat layer exposed: CODE(S): L98.492 - Non-pressure chronic ulcer of skin of other sites with fat layer exposed (3) Hidradenitis suppurativa: CODE(S): L73.2 - Hidradenitis suppurativa (4) Hypothyroidism: CODE(S): E03.9 - Hypothyroidism, unspecified QUALIFIERS: Hypothyroidism type: unspecified Qualified Code(s): E03.9 - (5) HTN (hypertension): CODE(S): I10 - Essential (primary) hypertension QUALIFIERS: Hypertension type: essential hypertension Qualified Code(s): I10 - Essential (primary) hypertension (6) Obesity: CODE(S): E66.9 - Obesity, unspecified QUALIFIERS: Obesity type: due to excess calories Obesity classification: adult class 2 (BMI 35 - 39.9) Serious obesity comorbidity presence: without serious comorbidity Body mass index: BMI 35.0-35.9 Qualified Code(s): E66.812 - Obesity, class 2; E66.09 - Other obesity due to excess calories; Z68.35 - Body mass index [BMI] 35.0-35.9, adult (7) Skin tear of left forearm without complication: CODE(S): S51.812A - Laceration without foreign body of left forearm, initial encounter QUALIFIERS: Encounter type: subsequent encounter Qualified Code(s): S51.812D - Laceration without foreign body of left forearm, subsequent encounter (8) 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 At home wound-care instructions: Will have her apply hydrogel to her left forearm ulcer and cover this daily. The patient will wash with antibacterial soap and water in her groin area. Encouraged her to use baby wipes instead of rubbing alcohol to clean skin after using bathroom. Keep dressing clean and dry. Will consider having her use Acetic acid rinse to her groin area if not improving. Reiterated to both the patient and her brother, Marshall, that the hidradenitis is a chronic condition and there is a spectrum of treatments but it will not be cured and will involve periodic flare ups. We discussed referral to dermatology to discuss biologic treatment options and that surgical excision of the HS is also an option for treatment. Will discuss her case with Dr. Townsend regarding DMARDs treatment and referral given for surgical opinion to Dr. Albrecht in [place] as he has treated several of my HS patients surgically. She saw Dr. Albrecht and he referred her for DMARDS. She saw [facility] for follow up and they have held DMARD due to TB testing equivocal. So far no plan for surgery although Marshall states they have recommended surgery. She is to follow up in November with Andry Hood. Discussed the importance of treating the incontinence and to follow up as scheduled with urology regarding work up and options for treatment. Also discussed trying ABD pads in her underwear instead of incontinence pads due to the irritation that plastic may cause to her skin or trying reusable, washable cotton underpads. Educated patient on the chronicity of hidradenitis and encouraged continued weight loss. Off-loading: The patient was instructed to avoid pressure and friction on the affected areas. Reposition every 2 hours at minimum. Avoid prolonged standing and/or dangling of legs. When seated, feet should be elevated at chest level. Frequent ambulation is encouraged. Diet: Patient encouraged to increase protein intake while taking caution to avoid high carbohydrate and/or sugar intake. Labs/cultures/imaging: Follow-up: Will have her return in 2 weeks. She was advised to call or go to ER if increased drainage, pain, bleeding or worsening.
[2025-10-14 09:57] VITALS: BP 148/97; PULSE 67; RESP 17; TEMP 36.3
--- NOTE | 2025-10-14 12:11 | WC ---
[id number] 10/14/25
--- NOTE | 2025-10-14 13:52 | PN.PCM_ITS ---
History of Present Illness Date of Service: 10/14/25 Chief Complaint: Nonhealing ulcers of groin area, left arm ulcer History of Wound: Mónica is a pleasant 75 yo woman that presents to the wound healing center for evaluation and treatment recommendations for nonhealing ulcers that are in her bilateral groin folds that have been present and waxed and waned in severity for 13 years. She reports that she has also had urinary incontinence that started around that time as well and she has been wearing d isposable incontinence pads daily since then. She reports that the areas bleed and drain pratt fluid intermittently. At some points there have been 5 spots of blood and currently there is about 2. She is otherwise uncomplicated and does not have history of diabetes. She denies fever, chills, erythema, increased drainage and odor. She has some cognitive impairment which is due to dementia. Her brother Marshall accompanies her today and helps somewhat with the history and reinforcement of instructions. She has been being seen by Dr. Eugene and referred for consultation regarding any medical management recommendations. She was evaluated by [employer] for possible Bartholin cyst but this was not felt to be an underlying cause. She sees Dr. Townsend for dermatology and is on Spironolactone. I saw her previously in July 2024 for similar complaints and she was referred to urology for urinary incontinence evaluation. 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 Subjective Subjective Mónica returns today for evaluation and treatment of hidradenitis suppurativa and left arm ulcer. She has not been using Dakins solution wet to dry dressings to the groin area for the last month and has had decrease in the drainage and discomfort. She is a poor historian. She does deny increased draining, bleeding or redness. She saw Dr. Albrecht for surgical consult on 07/11/25 and he referred her to dermatology for treatment with DMARD for her HS and recently was hospitalized for sepsis. DMARD is on hold per her brother and he states that dermatology discussed surgery is needed but he has not heard from anyone regarding next steps. She has appointment in November scheduled with dermatology. She also injured her forearm with a skin tear to left forearm in July. She has been dressing this with hydrogel and foam dressing daily. Objective Data Objective Data Vital Signs: Vital Signs Temp Pulse Resp BP O2 Del Method 97.4 F L 67 17 148/97 H Room Air 10/14/25 09:57 10/14/25 09:57 10/14/25 09:57 10/14/25 09:57 10/14/25 09:57 Oxygen Delivery Method Room Air Physical Exam Const alert, oriented x3, no apparent distress and healthy appearing General Appearance: cooperative, well kempt and well developed Orientation / Consciousness: awake, oriented to person, oriented to place and oriented to time Nutritional Appearance: obese HEENT normocephalic and moist oral mucous membranes Eyes PERRL, EOMs intact bilaterally and conjunctivae normal Neck supple, no JVD, thyroid normal and no carotid bruits General: trachea midline Resp normal respiratory effort and clear to auscultation bilaterally Effort and Inspection: able to speak in complete sentences Auscultation: Negative for rales, rhonchi or wheezes Cardio regular rate, regular rhythm, no murmurs, no rub and no gallops GI normal to inspection, nondistended, normoactive bowel sounds, soft to palpation, non-tender and non-distended Extremity no clubbing, cyanosis or edema Skin Skin Narrative: hypertrophic thickened skin of creases of groin bilaterally with some open areas that appear to be cystic consistent with hidradenitis. Left groin without openings seen and without drainage. Right groin/labia minimal purulent drainage and no slough present, right buttock perirectal area with thickened hypertrophic skin but no fluctuance and minimal purulent drainage from 2 pin point fistulous tracts Wounds: wounds noted Wound Narrative: as in clinical panel Neuro oriented x3, CN's II-XII intact bilaterally, no focal motor deficits and no sensory deficits noted Sensorium / Orientation: awake and alert Speech: speech normal Psych affect normal Debridement Note Debridement Note Wound debrided: left forearm Laterality: Left Type of Debridement: Selective debridement Anesthesia Used: 5% Lidocaine Gel Depth: Down to and including healthy tissue and in the subcutaneous layer Instrument Used: - (gauze) Tissue Removed: Yellow slough, devitalized tissue Severity: Fat Layer Exposed Amount of bleeding with debridement: Mild Bleeding Controlled with: Silver Nitrate Patient tolerated procedure: Patient tolerated procedure well Post-Debridement Measurements and Additional Note: Post-Debridement Measurements/Treatment SHAYNA - Nurse 1 - General Ulcer Assessment Start: 09/30/25 10:32 Freq: Status: Active Protocol: JOSE ELIAS Activity Type Activity Date Activity User E-sign Co-sign Detail Recorded Client Recorded Date Recorded By Document 09/30/25 10:32 [id number] 09/30/25 10:35 Document 10/14/25 09:57 TS [id number] 10/14/25 10:01 TS 09/30/25 10/14/25 10:32 09:57 - Today's Visit Information Type of service Follow-up Visit Follow-up Visit (Physician/CLINICAL DATA ABSTRACTOR (Physician/CLINICAL DATA ABSTRACTOR ) ) Arrival Mode Ambulatory,Cane Ambulatory Transfer Assistance Manual Patient Identification Verified (Name & Yes Yes ) Patient Requires Transmission-Based No Precautions Safety Precautions Fall Prevention Vital Signs Temperature (97.8 F-99.1 F) 97.6 F L 97.4 F L Temperature Source Oral Temporal Pulse Rate (60-100) 59 L 67 Pulse Location Monitor Monitor Respiratory Rate (12-18) 18 17 Respiratory rate source Ausculation Observation Oxygen Delivery Method Room Air Room Air Blood Pressure (90/60-120/80) 115/68 148/97 H Blood Pressure Mean (mm Hg) 83 114 Source Monitor Position Sitting Sitting Blood Pressure Location Right Arm Left Arm History Since Last Visit- (Skip if this is Patient's initial visit) Have you changed medications since your No No last visit? Any new allergies or adverse reactions No No Had a fall/change in ADL's that may No No increase risk of falls Signs or symptoms of abuse and/or No No neglect since last visit Have you been in the hospital since your No No last visit? Has dressing in place as prescribed Yes Yes Has compression in place as prescribed N/A N/A Has offloadiing in place as prescribed N/A N/A Experienced any changes in pain level or No No management Left Footwear Regular Shoe Regular Shoe Right Footwear Regular Shoe Regular Shoe Pain Scale: 0-10 Numeric Is Patient Pain Free? Yes Yes - Nurse 1 - General Ulcer Measurement Start: 09/30/25 10:32 Freq: Status: Active Protocol: Activity Type Activity Date Activity User E-sign Co-sign Detail Recorded Client Recorded Date Recorded By Document 09/30/25 10:32 [id number] 09/30/25 10:35 Document 10/14/25 09:57 [id number] 10/14/25 10:01 TS 09/30/25 10/14/25 10:32 09:57 Wound Center Nurse 1 #3 LEFT FA -Combined with other wound No No -Current Size (cm) - Length 0.5 0.2 -Current Size (cm) - Width 1.3 0.4 -Current Size (cm) - Depth 0.1 0.1 -Total Square Cm 0.65 0.08 -Date of Last Picture (Recall this 09/30/25 10/14/25 field) -Photo Taken Yes Yes -Epithelialization Small 1-33% -Tunneling No -Undermining/Tunneling No No -Circular Undermining No No -Exudate Amt Small Medium -Exudate Type Serosanguineous Serosanguineous -Wound Margin Flat & Intact Distinct, Outline Attached -Granulation Amt Small (1-33%) Medium (34-66%) -Granulation Quality [place],Red [place],Red -Slough/Fibrin No Yes -Necrosis Amt None Present (0 Medium (34-66%) %) -Necrotic Tissue Type Necrosis of Adherent Slough Bone -Structure Exposed Fascia -Texture (Carol-wound Skin Appearance) Assessed Assessed -Moisture (Carol-wound Skin Appearance) Assessed Assessed -Color (Carol-wound Skin Appearance) Assessed Assessed -Temperature (Carol-wound Skin No Abnormality No Abnormality Appearance) (Pt Warm) (Pt Warm) -Tenderness on Palpation (Carol-wound No No Skin Appearance) -Ulcer Cleansing Soap and Water Soap and Water -Foul Odor after Cleansing No No -Anesthetic Used 5% Lidocaine 5% Lidocaine Gel Gel Lower Limb Edema Present No WC - Nurse 2 - General Ulcer CM Notes Start: 09/30/25 10:32 Freq: Status: Active Protocol: Activity Type Activity Date Activity User E-sign Co-sign Detail Recorded Client Recorded Date Recorded By Document 09/30/25 11:15 GM(2) [id number] 09/30/25 11:20 GM(2) Document 10/14/25 10:11 GM(2) [id number] 10/14/25 10:12 GM(2) 09/30/25 10/14/25 11:15 10:11 Wound Center Nurse 2 #3 LEFT FA -Time 11:15 10:11 -Correct Patient Yes Yes -Correct Side, Site, Position Yes Yes -Correct Procedure No Yes -Procedure Performed No Yes -Type of Procedure Debridement -Clinical Debridement Epidermis / Dermis -Tissue Removed Epidermis -Post Debridement (cm) - Length 0.2 0.1 -Post Debridement (cm) - Width 0.6 0.1 -Post Debridement (cm) - Depth 0.1 0.1 -Total Square (Post) (cm) 0.12 0.01 -Area of Debridement (cm) - Length 0.1 -Area of Debridement (cm) - Width 0.1 -Total Square (Area) (cm) 0.01 -Tunneling No No -Undermining/Tunneling No No -Circular Undermining No No -Wound/Ulcer Outcome Not Healed Not Healed -Ulcer Cleansing Rinsed/ Rinsed/ Irrigated with Irrigated with Saline Saline -Foul Odor after Cleansing No No -Bioengineered Tissue No No -Bleeding Controlled with NA Silver Nitrate ($) -Treatment Response Procedure Tolerated Well -Offloading No No -Debridement - Open, 1st 20sq cm Yes Pain Scale: 0-10 Numeric Is Patient Pain Free? Yes Yes - Nurse 3 - General Ulcer D/C NN Start: 09/30/25 10:32 Freq: Status: Active Protocol: Activity Type Activity Date Activity User E-sign Co-sign Detail Recorded Client Recorded Date Recorded By Document 09/30/25 11:29 GM [id number] 09/30/25 11:32 GM Document 10/14/25 10:16 GM(2) [id number] 10/14/25 10:17 GM(2) 09/30/25 10/14/25 11:29 10:16 Wound Care Center Nurse 3 #3 LEFT FA -Ulcer Cleansing Not Cleansed Not Cleansed -Foul Odor after Cleansing No No -Negative Pressure Wound Therapy N/A N/A -Primary Dressing Applied C Hydrogel, Silicone Border Silicone Border Foam 4x4 Foam 4x4 -Patient Supplied Dressing Yes -Hydrogel 1 -Silicone Border Foam 4x4 1 1 Treatment Response Procedure Tolerated Well Pain Scale: 0-10 Numeric Is Patient Pain Free? Yes Yes - Visit Discharge Discharge Condition Stable Stable Ambulatory Status Ambulatory,Cane Ambulatory Transportation Private Auto Medication Reconcilliation completed & No provided to patient/care provider Clinical Summary of Care Provided Yes Additional Wound Wound debrided: right groin/labia Laterality: Right Operative Diagnosis: no debridement - stable HS without cellulitis Additional Wound Wound debrided: right buttock carol-rectal area Laterality: Right Operative Diagnosis: no debridement - stable HS without cellulitis Assessment/Plan Assessment/Plan (1) Skin ulcer of right groin with fat layer exposed: CODE(S): L98.492 - Non-pressure chronic ulcer of skin of other sites with fat layer exposed (2) Ulcer of left groin with fat layer exposed: CODE(S): L98.492 - Non-pressure chronic ulcer of skin of other sites with fat layer exposed (3) Hidradenitis suppurativa: CODE(S): L73.2 - Hidradenitis suppurativa (4) Hypothyroidism: CODE(S): E03.9 - Hypothyroidism, unspecified QUALIFIERS: Hypothyroidism type: unspecified Qualified Code(s): E03.9 - (5) HTN (hypertension): CODE(S): I10 - Essential (primary) hypertension QUALIFIERS: Hypertension type: essential hypertension Qualified Code(s): I10 - Essential (primary) hypertension (6) Obesity: CODE(S): E66.9 - Obesity, unspecified QUALIFIERS: Obesity type: due to excess calories Obesity classification: adult class 2 (BMI 35 - 39.9) Serious obesity comorbidity presence: without serious comorbidity Body mass index: BMI 35.0-35.9 Qualified Code(s): E66.812 - Obesity, class 2; E66.09 - Other obesity due to excess calories; Z68.35 - Body mass index [BMI] 35.0-35.9, adult (7) Skin tear of left forearm without complication: CODE(S): S51.812A - Laceration without foreign body of left forearm, initial encounter QUALIFIERS: Encounter type: subsequent encounter Qualified Code(s): S51.812D - Laceration without foreign body of left forearm, subsequent encounter (8) 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 At home wound-care instructions: Will have her apply hydrogel to her left forearm ulcer and cover this daily. The patient will wash with antibacterial soap and water in her groin area. Encouraged her to use baby wipes instead of rubbing alcohol to clean skin after using bathroom. Keep dressing clean and dry. Will consider having her use Acetic acid rinse to her groin area if not improving. Reiterated to both the patient and her brother, Marshall, that the hidradenitis is a chronic condition and there is a spectrum of treatments but it will not be cured and will involve periodic flare ups. We discussed referral to dermatology to discuss biologic treatment options and that surgical excision of the HS is also an option for treatment. Will discuss her case with Dr. Townsend regarding DMARDs treatment and referral given for surgical opinion to Dr. Albrecht in [place] as he has treated several of my HS patients surgically. She saw Dr. Albrecht and he referred her for DMARDS. She saw Andry Hood for follow up and they have held DMARD due to TB testing equivocal. So far no plan for surgery although Marshall states they have recommended surgery. She is to follow up in November with Andry Hood. Discussed the importance of treating the incontinence and to follow up as scheduled with urology regarding work up and options for treatment. Also discussed trying ABD pads in her underwear instead of incontinence pads due to the irritation that plastic may cause to her skin or trying reusable, washable cotton underpads. Educated patient on the chronicity of hidradenitis and encouraged continued weight loss. Off-loading: The patient was instructed to avoid pressure and friction on the affected areas. Reposition every 2 hours at minimum. Avoid prolonged standing and/or dangling of legs. When seated, feet should be elevated at chest level. Frequent ambulation is encouraged. Diet: Patient encouraged to increase protein intake while taking caution to avoid high carbohydrate and/or sugar intake. Labs/cultures/imaging: Follow-up: Will discharge her at this time. She was advised to call or go to ER if increased drainage, pain, bleeding or worsening.
== END 2025-10-26 14:14 | disposition home or self-care (01) ==
LOC: WC 10:00
PROVIDERS: PCP Family Medicine; Referring Provider Surgery Plastic and Reconstructive Surgery; Visit Provider Family Medicine
DX: L98.492 Non-pressure chronic ulcer of skin of other sites with fat layer exposed (principal); F03.90 Unspecified dementia, unspecified severity, without behavioral disturbance, psychotic disturbance, mood disturbance, and anxiety; E66.09 Other obesity due to excess calories; E03.9 Hypothyroidism, unspecified; L73.2 Hidradenitis suppurativa; I10 Essential (primary) hypertension; E66.812 Obesity, class 2; S51.812D Laceration without foreign body of left forearm, subsequent encounter; L98.A22 Non-pressure chronic ulcer of left forearm; Z68.35 Body mass index [BMI] 35.0-35.9, adult
CPT/HCPCS: 97597; 99213; G0463